=== PATIENT | female | born 1965 | race Caucasian/White ===

== ENCOUNTER 2016-03-27 14:14 | Outpatient (RCR) | payer MEDICARE, MEDICAID ==
--- OUTSIDE RECORDS SUMMARY | 2016-02-16 09:10 | XMS REPORT | Continuity of Care Document ---
Author Author [facility] Organization [facility] Address Unknown Phone Unavailable Care Team Providers Care Hand Sewer Name Role Phone Mario Carver PCP Unavailable Source Comments Some departments are not documenting in the electronic medical record. If you do not see the information that you expected, contact Release of Information in the Health Information Management department at [phone] for further assistance in locating additional records.[facility] Active Allergies and Adverse Reactions Not on File Current Medications Not on file Active Problems Not on file Social History Tobacco Use Types Packs/Day Years Used Date Never Assessed Plan of Care Health Maintenance Due Date Last Done Comments Physical (Comprehensive) 09/15/1974 Exam Pertussis Vaccine 09/15/1978 Tetanus Vaccine 09/15/1984 Cervical Cancer Screening 09/15/1988 Breast Cancer Screening 2007 Influenza Vaccine 12/01/2015 Results from Last 3 Months Not on file
[~2016-03-27 14:14] MED LIST: ABCT PO; ALBU0.632 NEB; ALBU17AE23 IH; ALBU8.5H2 IH; ALBU8.5H4 IH; ALBU8.5HRX IH; AMLO10TA2 PO; AMLO10TA4 PO; AMLO10TA82 PO; AMLO5TAB2 PO; ASP81TEC PO; ASPI-875 PO; ATOR80TA2 PO; ATR20T PO; ATRV10T PO; AZIT-21 PO; Atorvastatin Calcium PO; BUDE6HFA IH; BUDE90AE IH; BUPR150T6 PO; BUTA-234 PO; BUTA1TAB9 PO; CA C1TAB75 PO; CALC-656 PO; CALC667C PO; CEFD300C PO; CEPH500C PO; CLAR-19 PO; CODE118S2 PO; DCS100C PO; DILT300C PO; DOXY-233 PO; ERGO500028 PO; FLT22013 INH; FLUT16SP22; FLUT16SP22 NS; FOLI1TAB40 PO; FURO40TA4 PO; Fluticasone Propionate NS; GABA-486 PO; GBPN300C PO; GBPN600T PO; GLBR5T PO; GLIM4TAB PO; GLMP4T PO; HYDR-2856 PO; HYDR-34 PO; HYDR-3714 PO; HYDR-3816 PO; HYDR-700 PO; HYDR1TAB PO; HYDR25TA4 PO; IBP800T PO; INSA10V1 SC; INSASP10V SQ; INSU100C4 SQ; INSU100I10 SQ; INSU100I14 SQ; INSU100I16 SQ; INSU100V5 SQ; INSU100V8 SC; IPRA3AMP11 INH; IRB150T; IRB150T PO; IRBE300T9 PO; ISM30TCR PO; ISOS30TA3 PO; Insulin Human Lispro SQ; KIDNEY MED PO; LANT1000; LANT500T; LISI10TA PO; LORA10TA7 PO; LOVA40TA2 PO; MAGN400O7 PO; METF-380 PO; METO100T2 PO; MINO2.5T PO; MNTL10T PO; MONT10TA24 PO; MTF500T PO; MTP50T PO; MUPI22OI2 TOP; Multivitamins/Minerals Therap PO; NAPR-243 PO; NEBU1EAC2 MC; NF-TYLARTH PO; NYST30PO9 TOP; ONDA4TAB8 PO; OXYC-201 PO; PNT40TEC PO; POLY17PO23 PO; PRD10T PO; PRD20T PO; PRD50T PO; PRO AIR HFA INH; PRO AIR INH; ROSU20TA PO; ROSU20TA14 PO; RT-ALBUINH IH; RT-SYMBINH IH; SEVE800T7 PO; STEROID INHALER; TRAZ50TA67 PO; [UNRECOGNIZED DRUG - CODE] PO; [UNRECOGNIZED DRUG - CODE] PO; [UNRECOGNIZED DRUG - OTHER]
== END 2016-04-30 08:45 | disposition home or self-care (01) ==
PROVIDERS: ATTEND Nurse Practitioner Community Health
DX: Z89.512 Acquired absence of left leg below knee (principal)

== ENCOUNTER 2016-04-03 20:24 | Emergency (ER) | payer MEDICARE, MEDICAID ==
[~2016-04-03] VITALS: Ht 162.6 cm; Wt 142.4 kg
--- OUTSIDE RECORDS SUMMARY | 2016-04-03 20:29 | XMS REPORT | Continuity of Care Document ---
Author Author [facility] Organization [facility] Address Unknown Phone Unavailable Care Team Providers Care Stretch Machine Operator Name Role Phone Mario Carver PCP Unavailable Source Comments Some departments are not documenting in the electronic medical record. If you do not see the information that you expected, contact Release of Information in the Health Information Management department at [phone] for further assistance in locating additional records.[facility] Active Allergies and Adverse Reactions Not on [...]
[2016-04-03 21:22] LABS: BASOPHILS % (AUTO) 0 % (0-10); EOSINOPHILS # (AUTO) 0.1 10^3/uL (0.0-0.3); EOSINOPHILS % (AUTO) 1 % (0-10); LYMPHOCYTES # (AUTO) 1.1 X 10^3 (1.0-4.0); LYMPHOCYTES % (AUTO) 7 % (12-44); MEAN CORPUSCULAR HEMOGLOBIN 34 PG (25-34); MEAN CORPUSCULAR HGB CONC 32 G/DL (32-36); MEAN CORPUSCULAR VOLUME 106 FL (80-99); MEAN PLATELET VOLUME 12.3 FL (7.4-10.4); MONOCYTES # (AUTO) 0.8 X 10^3 (0.0-1.0); MONOCYTES % (AUTO) 6 % (0-12); NEUTROPHILS # (AUTO) 12.8 X 10^3 (1.8-7.8); NEUTROPHILS % (AUTO) 87 % (42-75); PLATELET COUNT 155 10^3/uL (130-400); RED BLOOD COUNT 3.05 10^6/uL (4.35-5.85); RED CELL DISTRIBUTION WIDTH 15.7 % (10.0-14.5); WHITE BLOOD COUNT 14.8 10^3/uL (4.3-11.0)
--- NOTE | 2016-04-03 21:22 | Diagnostic Imaging Report ---
INDICATION: Right foot pain COMPARISON: None FINDINGS: 3 views of the right foot are obtained. No acute fracture, malalignment or osseous destructive process is seen. Subtle vascular calcifications are noted. There is mild degenerative change of the calcaneocuboid joint. There is some soft tissue swelling which is nonspecific. IMPRESSION: No acute osseous abnormality is seen. There is soft tissue swelling and arteriosclerosis noted. Dictated by: Dictated on workstation # [id number]
[2016-04-03] MEDS ORDERED: RX-NITROGLYCERIN 0.4 MG TAB BTL 25'S SL ONE (21:39)
[2016-04-03] MEDS ORDERED: ASPIRIN 81 MG CHEW (CHILDREN'S ASA) PO ONE (21:45)
[2016-04-03 21:46] LABS: ANISOCYTOSIS SLIGHT; BAND NEUTROPHILS 0 %; BASOPHILS % (MANUAL) 0 %; EOSINOPHILS % (MANUAL) 0 %; LYMPHOCYTES % (MANUAL) 11 %; NEUTROPHILS % (MANUAL) 89 %
[2016-04-03] MEDS: NITROGLYCERIN SUBLINGUAL 0.4 MG TAB (NITROSTAT) SL PRN (21:47)
[2016-04-03 21:49] LABS: ALBUMIN 3.6 G/DL (3.2-4.5); BILIRUBIN,TOTAL 0.4 MG/DL (0.1-1.0); CREATININE SERUM 8.24 MG/DL (0.60-1.30); POTASSIUM 4.7 MMOL/L (3.6-5.0); TOTAL PROTEIN 7.4 G/DL (6.4-8.2)
[2016-04-03 21:50] LABS: hs C REACTIVE PROTEIN 23.13 MG/DL (0.00-0.50)
[2016-04-03 21:57] LABS: ERYTHROCYTE SEDIMENTATION RATE > 140 MM/HR (0-20)
[2016-04-03 21:59] LABS: CREATINE KINASE 20 U/L (29-168); MAGNESIUM 2.1 MG/DL (1.8-2.4)
[2016-04-03 22:06] LABS: TROPONIN I < 0.30 NG/ML (<0.30)
[2016-04-03] MEDS: VANCOMYCIN IV ADD-VANTAGE 1,000 MG in SODIUM CHLORIDE (ADD-VANTAGE) 250 ML IV ONE ×2 (22:14→23:19)
[2016-04-03] MEDS ORDERED: inSUlin (REGULAR) HUMAN 1 UNIT/0.01 ML (CHARGE PER UNIT) IV ONE (22:15)
[2016-04-03] MEDS ORDERED: NITROGLYCERIN 2% OINT 1 GM UNIT DOSE PACKET TOP ONE (22:15)
[2016-04-03] MEDS ORDERED: NS (IVPB) 100 ML ONE (22:19)
[2016-04-03] MEDS ORDERED: inSUlin REGULAR TPN/DRIP ONLY 250 UNITS in NORMAL SALINE 247.5 ML IV SCH (22:30)
[2016-04-03] MEDS ORDERED: PIPERACILLIN SODIUM/TAZOBACTAM 4.5 GM in NORMAL SALINE (BAXTER MINI) 100 ML IV ONE (22:30)
--- NOTE | 2016-04-03 23:04 | ED General ---
General Chief Complaint: Lower Extremity Stated Complaint: FOOT SORE/SWELLING Nursing Triage Note: PT ARRIVAL FOR RIGHT FOOT PAIN AND UNABLE TO BEAR WT. WORSENING OVER 1 WEEK, CAN NOT GET INTO HER DR. 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 Nursing Sepsis Screen: No Definite Risk Source of Information: Patient, Old Records History of Present Illness Time Seen by Provider: 20:40 Initial Comments PT ARRIVES VIA EMS FROM HOME CALLED EMS FOR RIGHT FOOT AND LEG PAIN, REDNESS AND SWELLING ONGOING FOR SEVERAL DAYS, WORSE SINCE YESTERDAY HAS NOT BEEN ABLE TO BEAR WEIGHT ON RIGHT FOOT DUE TO PAIN SINCE YESTERDAY PT HAS CHRONIC DIABETIC LEG AND FOOT ULCERS. STATES THE ONE ON HER RIGHT GREAT TOE CAME UP A FEW DAYS AGO NO DRAINAGE FROM WOUNDS AT THIS TIME NO KNOWN FEVER HAS HAD NAUSEA AND VOMITED X 3 TODAY. EMS GAVE ZOFRAN 4 MG IM AND NAUSEA IS GONE PT HAS ESRD ON DIALYSIS [id number] HAD DIALYSIS YESTERDAY, BUT DR WAS NOT THERE--WILL BE THERE YESTERDAY HAS NOT SOUGHT CARE FOR THIS PROBLEM UNTIL TODAY PCP:RICARDO, APPOINTMENT 04/06/16 Allergies and Home Medications Allergies Coded Allergies: aloe vera (Verified Allergy, Severe, RASH, 11/05/13) flu vaccine [id number](4 yr+) (Verified Allergy, Mild, HIVES, 04/22/12) adhesive (Verified Allergy, Unknown, 05/01/07) Uncoded Allergies: TAPE (Allergy, Mild, 05/16/10) Home Medications 1 EA TABLET #30 1 EA PO DAILY@0700 Prescribed by: FRANCOISE ODOM on 11/20/13 1000 Amlodipine Besylate 10 Mg Tablet #30 10 MG PO DAILY (Reported) Aspirin 81 Mg Tablet.dr 81 MG PO DAILY (Reported) Butalb/Acetaminophen/Caffeine 1 Each Tablet #30 1-2 TAB PO Q6H PRN PRN HEADACHE (Reported) Fluticasone Propionate 16 Gm [place].susp #16 1 SPRAY NA DAILY (Reported) Folic Acid/Vitamin B Comp W-C 1 Each Tablet #30 1 TAB PO DAILY (Reported) Furosemide 40 Mg Tablet #30 1 TAB PO DAILY (Reported) Gabapentin 100 Mg Capsule 100 MG PO TID (Reported) Hydrocodone/Acetaminophen 1 Each Tablet #90 1 TAB PO Q6H PRN PRN PAIN (Reported ) Hydroxyzine HCl 25 Mg Tablet #90 1 TAB PO QID PRN PRN an (Reported) Insulin Glargine,Hum.rec.anlog 100 Unit/1 Ml Insuln.pen #15 30 UNITS SQ HS ( Reported) Insulin Human Lispro 100 U/Ml Vial UNITS SQ SLIDING SCALE/ MEALS (Reported) PER SLIDING SCALE 151-199= 1 UNIT 200-249= 3 UNIT 250- 299= 5 UNIT 300-349= 7 UNIT 350-399= 8 UNIT >400= CALL DR Isosorbide Mononitrate 30 Mg Tab.er.24h #30 1 TAB PO DAILY (Reported) Lanthanum Carbonate 500 Mg Tab.chew #60 Unknown Dose (Reported) Lanthanum Carbonate 1,000 Mg Tab.chew #90 Unknown Dose (Reported) Loratadine 10 Mg Tablet #30 1 TAB PO HS (Reported) Metoprolol Tartrate 100 Mg Tablet 100 MG PO BID (Reported) Montelukast Sodium 10 Mg Tablet 10 MG PO HS (Reported) Mupirocin 22 Gm Oint...g. #22 1 APPLIC TOP BID (Reported) Nystatin 60 Gm Powder #15 1 APPLIC TOP BID (Reported) Rosuvastatin Calcium 20 Mg Tablet #30 1 TAB PO DAILY (Reported) Sevelamer Carbonate 800 Mg Tablet #240 800 MG PO with meals as direct (Reported ) 2 tabs with breakfast and dinner 1 tab with lunch Constitutional: no symptoms reportedNo chills, No diaphoresis, No fever Respiratory: no symptoms reported Cardiovascular: chest pain (C/O CHEST PAIN AN HOUR AFTER SHE ARRIVED IN ER-- STATES IT HAS BEEN GOING ON ALL DAY, BUT DID NOT MENTION THIS TO EMS, TO MYSELF OR NURSING AT ANY TIME, UNTIL AN HOUR HAD PASSED.) edema (CHRONIC/STABLE) palpitationsNo syncope, vascular heart diseas Gastrointestinal: see HPINo abdominal pain, loss of appetite (STATES SHE HAS NOT EATEN ALL DAY) nausea vomiting Genitourinary: see HPI Musculoskeletal: see HPI Skin: see HPI Psychiatric/Neurological: Pre-Existing Deficit (PERIPHERAL NEUROPATHY) Hematologic/Lymphatic: No Symptoms Reported Immunological/Allergic: no symptoms reported Past Biwwyfp-Raiavf-Nwmala Hx Patient Social History Alcohol Use: Denies Use Recreational Drug Use: No Smoking Status: Never a Smoker Former Smoker/When Quit: Apr 22, 1985 2nd Hand Smoke Exposure: Yes Recent Foreign Travel: No Contact w/Someone Who Travel: No Recent Infectious Disease Expo: No Recent Hopitalizations: No Physical Abuse Screen: No Sexual Abuse: No Immunizations Up To Date Tetanus Booster (TDap): Less than 5yrs PED Vaccines UTD: No Date of Pneumonia Vaccine: Sep 02, 2013 Seasonal Allergies Seasonal Allergies: Yes Surgeries HX Surgeries: Yes (DIALYSIS AV FISTULA/GRAFT LEFT UPPER ARM, LEFT BKA) Surgeries: Amputation, Arteriovenous Shunt, Cardiac, Section, Dialysis , Hysterectomy, Orthopedic, Tracheostomy, Vascular Surgery Respiratory Hx Respiratory Disorders: Yes (TRACHEOSTOMY IN PAST--PT STATES DUE TO " DIABETIC COMA", O2 AT 4L/NC) Respiratory Disorders: Asthma, COPD, Emphysema Cardiovascular Hx Cardiac Disorders: Yes Cardiac Disorders: Chronic Edema/Swelling, Coronary Artery Disease, High Cholesterol, Hypertension, Peripheral Vascular Neurological Hx Neurological Disorders: Yes Neurological Disorders: Headaches /Migraines, Neuropathy 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 System Hx 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 Disorders: No Sexually Transmitted Disease: No HIV/AIDS: No Genitourinary Hx Genitourinary Disorders: Yes (DIALYSIS SATURDAY,SATURDAY,SATURDAY) Genitourinary Disorders: Renal Failure, Dialysis Gastrointestinal Hx Gastrointestinal Disorders: Yes Gastrointestinal Disorders: Chronic Constipation Musculoskeletal Hx Musculoskeletal Disorders: Yes (BILATERAL CARPAL TUNNEL SYMPTOMS; LEFT BKA, LEFT STUMP FRACTURE) Musculoskeletal Disorders: Arthritis, Chronic Back Pain, Fractures Endocrine Hx Endocrine Disorders: Yes (DKA IN PAST ) Endocrine Disorders: Diabetes, Insulin dep HEENT HX ENT Disorders: Yes Loss of Vision: Denies Hearing Impairment: Denies, Hard of Hearing Cancer Hx Cancer: No Psychosocial Hx Psychiatric Problems: No Integumentary HX Skin/Integumentary Disorder: Yes (DIABETIC ULCERS) Blood Transfusions Hx Blood Disorders: No Adverse Reaction to a Blood Tr: No Physical Exam Vital Signs Vital Sign - Last 12Hours 04/03/16 20:24 Temp 98.5 Pulse 105 Resp 18 B/P 181/94 Pulse Ox 96 O2 Delivery Nasal Cannula O2 Flow Rate 4 Capillary Refill : Less Than 3 Seconds General Appearance: No Apparent Distress Obese (MORBIDLY) Other (DIRTY, MALODOROUS, UNKEMPT) HEENT: Other (POOR DENTITION, MULTIPLE MISSING TEETH AND REMAINING TEETH WITH EXTENSIVE DECAY) Neck: Full Range of Motion Normal Inspection Non Tender Supple Respiratory: Normal Breath Sounds No Accessory Muscle Use No Respiratory Distress Decreased Breath Sounds (IN BASES) Cardiovascular: Regular Rate, Rhythm No Murmur Gastrointestinal: Non Tender Soft Extremity: Other (LEFT AKA; RIGHT LOWER LEG WITH CELLULITIS AND MULTIPLE SORES /ULCERS OF VARIOUS AGES. NO DRAINAGE FROM ANY WOUNDS. SKIN IS WARM, ERYTHEMATOUS AND INDURATED. 2+ EDEMA TO RIGHT LEG. UNABLE TO PALPATE PULSES AND HAS DECREASED SENSATION TO FOOT, BUT C/O PAIN ANYWHERE SHE IS TOUCHED. 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 Norm as Tested Sensory Deficit (CHRONIC/STABLE) Skin: Normal Color Warm/Dry Other ( ABOVE) Progress/Results/Core Measures Results/Orders Lab Results Laboratory Tests Test 04/03/16 21:16 04/03/16 21:27 04/04/16 00:34 Range/Units Alanine Aminotransferase (ALT/SGPT) 27 0-55 U/L Albumin 3.6 3.2-4.5 G/DL Alkaline Phosphatase 215 H 40-136 U/L Anion Gap 20 H 5-14 MMOL/L Anisocytosis SLIGHT Aspartate Amino Transf (AST/SGOT) 26 5-34 U/L BUN/Creatinine Ratio 5 Band Neutrophils 0 % Basophils # (Auto) 0.0 0.0-0.1 10^3/uL Basophils % (Manual) 0 % Basophils (%) (Auto) 0 0-10 % Blood Urea Nitrogen 43 H 7-18 MG/DL C-Reactive Protein High Sensitivity 23.13 H 0.00-0.50 MG/DL Calcium Level 9.0 8.5-10.1 MG/DL Carbon Dioxide Level 24 21-32 MMOL/L Chloride Level 87 L 98-107 MMOL/L Creatinine 8.24 H 0.60-1.30 MG/DL Eosinophils # (Auto) 0.1 0.0-0.3 10^3/uL Eosinophils % (Manual) 0 % Eosinophils (%) (Auto) 1 0-10 % Erythrocyte Sedimentation Rate > 140 H 0-20 MM/HR Estimat Glomerular Filtration Rate 5 Glucose Level 540 *H 70-105 MG/DL Hematocrit 32 L 35-52 % Hemoglobin 10.5 L 11.5-16.0 G/DL Lymphocytes # (Auto) 1.1 1.0-4.0 X 10^3 Lymphocytes % (Manual) 11 % Lymphocytes (%) (Auto) 7 L 12-44 % Macrocytosis SLIGHT Mean Corpuscular Hemoglobin 34 25-34 PG Mean Corpuscular Hemoglobin Concent 32 32-36 G/DL Mean Corpuscular Volume 106 H 80-99 FL Mean Platelet Volume 12.3 H 7.4-10.4 FL Monocytes # (Auto) 0.8 0.0-1.0 X 10^3 Monocytes % (Manual) 0 % Monocytes (%) (Auto) 6 0-12 % Neutrophils # (Auto) 12.8 H 1.8-7.8 X 10^3 Neutrophils % (Manual) 89 % Neutrophils (%) (Auto) 87 H 42-75 % Nucleated Red Blood Cells 1 Platelet Count 155 130-400 10^3/uL Potassium Level 4.7 3.6-5.0 MMOL/L Red Blood Count 3.05 L 4.35-5.85 10^6/uL Red Cell Distribution Width 15.7 H 10.0-14.5 % Sodium Level 131 L 135-145 MMOL/L Total Bilirubin 0.4 0.1-1.0 MG/DL Total Protein 7.4 6.4-8.2 G/DL White Blood Count 14.8 H 4.3-11.0 10^3/uL Creatine Kinase MB 0.8 <6.6 NG/ML Lactic Acid Level 1.4 0.5-2.0 MMOL/L Magnesium Level 2.1 1.8-2.4 MG/DL Total Creatine Kinase 20 L 29-168 U/L Troponin I < 0.30 <0.30 NG/ML Glucometer 328 H 70-110 MG/DL My Orders Orders-LORI PENALOZA DO Saline Lock/Iv-Start (04/03/16 20:41) Cbc With Automated Diff (04/03/16 20:41) Comprehensive Metabolic Panel (04/03/16 20:41) Hs C Reactive Protein (04/03/16 20:41) Lactic Acid Analyzer (04/03/16 20:41) Blood Culture (04/03/16 20:41) Erythrocyte Sedimentation Rate (04/03/16 20:41) Foot, Right, 3 View (04/03/16 20:41) Manual Differential (04/03/16 21:16) Ekg Tracing (04/03/16 21:35) O2 (04/03/16 21:35) Monitor-Rhythm Ecg Trace Only (04/03/16 21:35) Creatine Kinase (04/03/16 21:35) Creatine Kinase Mb (04/03/16 21:35) Magnesium (04/03/16 21:35) Troponin I (04/03/16 21:35) Aspirin Chewable Tablet (Baby Aspirin Ch (04/03/16 21:45) Nitroglycerin Sublingual (Nitrostat Sub (04/03/16 21:45) Rx-Nitroglycerin Sl Tabs (Rx-Nitrostat S (04/03/16 21:39) Vancomycin Iv Add-[place] (Vancomycin Iv (04/03/16 22:15) Insulin (Regular) Human (Humulin R (Per (04/03/16 22:15) Nitroglycerin Ointment (Nitrobid Ointme (04/03/16 22:15) Piperacillin Sodium/Tazobactam (Zosyn Vi (04/03/16 22:30) Insulin Regular Tpn/Drip Only (Humulin R (04/03/16 22:30) Ns (Ivpb) (Sodium Chloride 0.9% Ivpb Bag (04/03/16 22:19) Accucheck Stat ONCE (04/04/16 00:02) Medications Given in ED Current Medications Medications Dose Ordered Sig/Lindy Route Start Time Stop Time Status Last Admin Dose Admin Aspirin 324 mg ONCE ONCE PO 04/03/16 21:45 04/03/16 21:46 DC 04/03/16 21:46 324 MG Nitroglycerin 0.4 mg 0.4 mg STK-MED ONCE SL 04/03/16 21:39 04/03/16 21:47 DC 04/03/16 21:46 0.4 MG Piperacillin Sod/ Tazobactam Sod 4.5 gm/Sodium Chloride 100 ml @ 200 mls/hr ONCE ONCE IV 04/03/16 22:30 04/03/16 22:59 DC 04/03/16 22:32 200 MLS/HR Sodium Chloride 100 ml STK-MED ONCE .ROUTE 04/03/16 22:19 04/03/16 22:26 DC 04/03/16 22:34 Vancomycin HCl 1000 mg/Sodium Chloride 250 ml @ 250 mls/hr ONCE ONCE IV 04/03/16 22:15 04/03/16 23:14 DC 04/03/16 23:19 250 MLS/HR Vital Signs/I&O Vital Sign - Last 12Hours 04/03/16 04/03/16 04/03/16 20:24 20:24 21:46 Temp 98.5 98.5 Pulse 105 Resp 18 B/P 181/94 Pulse Ox 96 95 O2 Delivery Nasal Cannula O2 Flow Rate 4 4 Blood Pressure Mean: 123 Progress Note : Progress Note 2134--PT NOW C/O CHEST PAIN RADIATING DOWN LEFT ARM--ONGOING ALL DAY--RATES 9/ 10. SHE STATES THIS IS WHY SHE CAME, BUT ALSO FOR HER FOOT. SHE DID NOT MENTION THIS TO EMS, MYSELF OR NURSING STAFF AT ANY TIME UNTIL NOW. NO SHORTNESS OF BREATH PT GIVEN ASA 324 MG AND NITRO SL X 2 WITH COMPLETE RESOLUTION OF PAIN AND BP DOWN TO 140'S / 90'S OFFERED NITROPASTE, PT REFUSED--STATES IT MAKES HER BREAK OUT EKG AND ADDITIONAL LAB ORDERED NO DETERIORATION IN PT'S CONDITION DURING ER STAY ECG Initial ECG Impression Time: 21:40 Initial ECG Rate: 97 Initial ECG Rhythm: Normal Sinus Initial ECG Impression: 1st Degree AV Block Initial ECG Comparisson: Unchanged Diagnostic Imaging Comments XRAYS RIGHT FOOT--SOFT TISSUE SWELLING, OTHERWISE NO ACUTE PROCESS, PER RADIOLOGIST REPORT @ 2125 Reviewed: Reviewed by Me Departure Communication Progress Notes 2211-CALLED [facility] CALL 2213--SPOKE WITH HOSPITALIST, DR. ADAMS. ACCEPTS PT FOR TRANSFER/ADMIT. ORDERS NOTED FOR INSULIN DRIP, VANCOMYCIN AND ZOSYN. PT TO GO TO TCU Impression Impression: Primary Impression: CELLULITIS OF RIGHT FOOT AND LOWER LEG Additional Impressions: Chest pain Uncontrolled diabetes mellitus Uncontrolled hypertension ESRD on dialysis DIABETIC ULCERS OF RIGHT FOOT AND LEG Disposition: 02 XFER SHT-TRM HOSP Condition: Improved Departure-Patient Inst. Referrals: MCKENNA HEBERT (PCP) Primary Care Physician [facility] (Family) Primary Care Physician LORI PENALOZA DO Apr 03, 2016 23:04 XRAYS RIGHT FOOT--SOFT TISSUE SWELLING, OTHERWISE NO ACUTE PROCESS, PER RADIOLOGIST REPORT @ 2125 Reviewed: Reviewed by Me Departure Communication Progress Notes 2211-CALLED [facility] CALL 2213--SPOKE WITH HOSPITALISTDR. ADAMS. ACCEPTS PT FOR TRANSFER/ADMIT. ORDERS NOTED FOR INSULIN DRIP, VANCOMYCIN AND ZOSYN. PT TO GO TO TCU Impression Impression: Primary Impression: CELLULITIS OF RIGHT FOOT AND LOWER LEG Additional Impressions: Chest pain Uncontrolled diabetes mellitus Uncontrolled hypertension ESRD on dialysis DIABETIC ULCERS OF RIGHT FOOT AND LEG Disposition: 02 XFER SHT-TRM HOSP Condition: Improved Departure-Patient Inst. Referrals: MCKENNA HEBERT (PCP) Primary Care Physician [facility] (Family) Primary Care Physician LORI PENALOZA DO Apr 03, 2016 23:04
[2016-04-04 01:00] VITALS: BP 134/71
== END 2016-04-04 01:00 | disposition short-term general hospital (02) ==
LOC: EDUNIT# 20:24 → ER 20:25
DX: L03.115 Cellulitis of right lower limb (principal); E11.621 Type 2 diabetes mellitus with foot ulcer; I12.0 Hypertensive chronic kidney disease with stage 5 chronic kidney disease or end stage renal disease; N18.6 End stage renal disease; Z99.2 Dependence on renal dialysis; J44.9 Chronic obstructive pulmonary disease, unspecified; I25.10 Atherosclerotic heart disease of native coronary artery without angina pectoris; Z79.82 Long term (current) use of aspirin; Z79.4 Long term (current) use of insulin; Z79.899 Other long term (current) drug therapy
CPT/HCPCS: 36415; 73630; 80053; 82550; 82553; 82962; 83605; 83735; 84484; 85007; 85027; 85652; 86141; 87040; 93005; 93041; 96365; 96367; 96375

== ENCOUNTER → 2016-04-23 | Outpatient (CLI) | payer MEDICARE, MEDICAID ==
[~2016-04-23] MED LIST changes: +AMOX1TAB11 PO; +CLOP75TA69 PO; +DOXY100C2 PO; +DOXY100C42 PO; +GABA-488 PO; +HYDR-3820 PO; +INSU100I23 SQ; +NAPR375T3 PO; +ONDA8TAB9 PO; +VIT1TABL59 PO
[2016-04-23 17:50] LABS: BASOPHILS % (AUTO) 0 % (0-10); EOSINOPHILS # (AUTO) 0.7 10^3/uL (0.0-0.3); EOSINOPHILS % (AUTO) 7 % (0-10); LYMPHOCYTES % (AUTO) 9 % (12-44); MEAN CORPUSCULAR HEMOGLOBIN 32 PG (25-34); MEAN CORPUSCULAR HGB CONC 30 G/DL (32-36); MEAN CORPUSCULAR VOLUME 108 FL (80-99); MEAN PLATELET VOLUME 13.5 FL (7.4-10.4); MONOCYTES # (AUTO) 0.8 X 10^3 (0.0-1.0); MONOCYTES % (AUTO) 7 % (0-12); NEUTROPHILS # (AUTO) 8.5 X 10^3 (1.8-7.8); NEUTROPHILS % (AUTO) 77 % (42-75); PLATELET COUNT 149 10^3/uL (130-400); RED BLOOD COUNT 3.06 10^6/uL (4.35-5.85); WHITE BLOOD COUNT 11.1 10^3/uL (4.3-11.0)
[2016-04-23 18:11] LABS: ERYTHROCYTE SEDIMENTATION RATE 49 MM/HR (0-20)
[2016-04-23 18:13] LABS: ALBUMIN 3.2 G/DL (3.2-4.5); BILIRUBIN,TOTAL 0.3 MG/DL (0.1-1.0); CALCIUM 8.4 MG/DL (8.5-10.1); CREATININE SERUM 4.52 MG/DL (0.60-1.30); POTASSIUM 4.8 MMOL/L (3.6-5.0); TOTAL PROTEIN 7.6 G/DL (6.4-8.2)
== END ==
LOC: LABNPT 17:40
PROVIDERS: ATTEND Internal Medicine Infectious Disease
DX: L02.611 Cutaneous abscess of right foot (principal)
CPT/HCPCS: 80053; 85025; 85652

== ENCOUNTER → 2016-06-25 | Outpatient (CLI) | payer MEDICARE, MEDICAID ==
--- NOTE | 2016-06-25 16:46 | Diagnostic Imaging Report ---
INDICATION: Pressure ulcer on the bottom of the foot in the first metatarsal region. COMPARISON: Three views of the right foot are compared to an exam from April 03, 2016. FINDINGS: The exam demonstrates no evidence of osteomyelitis. Vascular calcifications are present. Soft tissue swelling is present adjacent to the first metatarsal. Hallux valgus configuration of the great toe is present with mild degenerative changes. These appear stable. IMPRESSION: There is some soft tissue swelling with no evidence of osteomyelitis. Degenerative changes and arteriosclerosis are present. Dictated by: Dictated on workstation # [id number]
[2016-06-25 16:59] LABS: BASOPHILS % (AUTO) 0 % (0-10); EOSINOPHILS # (AUTO) 0.3 10^3/uL (0.0-0.3); EOSINOPHILS % (AUTO) 3 % (0-10); LYMPHOCYTES # (AUTO) 1.7 X 10^3 (1.0-4.0); LYMPHOCYTES % (AUTO) 21 % (12-44); MEAN CORPUSCULAR HEMOGLOBIN 34 PG (25-34); MEAN CORPUSCULAR HGB CONC 31 G/DL (32-36); MEAN CORPUSCULAR VOLUME 108 FL (80-99); MEAN PLATELET VOLUME 12.6 FL (7.4-10.4); MONOCYTES # (AUTO) 0.4 X 10^3 (0.0-1.0); MONOCYTES % (AUTO) 5 % (0-12); NEUTROPHILS # (AUTO) 5.9 X 10^3 (1.8-7.8); NEUTROPHILS % (AUTO) 71 % (42-75); PLATELET COUNT 117 10^3/uL (130-400); RED BLOOD COUNT 3.75 10^6/uL (4.35-5.85); RED CELL DISTRIBUTION WIDTH 17.8 % (10.0-14.5); WHITE BLOOD COUNT 8.3 10^3/uL (4.3-11.0)
[2016-06-25 17:11] LABS: BILIRUBIN,TOTAL 0.4 MG/DL (0.1-1.0); CALCIUM 8.2 MG/DL (8.5-10.1); CREATININE SERUM 5.18 MG/DL (0.60-1.30); POTASSIUM 5.3 MMOL/L (3.6-5.0); TOTAL PROTEIN 7.5 G/DL (6.4-8.2)
[2016-06-25 17:19] LABS: ERYTHROCYTE SEDIMENTATION RATE 38 MM/HR (0-20)
== END ==
LOC: RAD 15:43
PROVIDERS: ATTEND Surgery
DX: I70.234 Atherosclerosis of native arteries of right leg with ulceration of heel and midfoot (principal); E11.621 Type 2 diabetes mellitus with foot ulcer; L97.413 Non-pressure chronic ulcer of right heel and midfoot with necrosis of muscle
CPT/HCPCS: 36415; 73630; 80053; 83036; 85025; 85652

== ENCOUNTER 2016-07-24 07:16 | Day surgery (SDC) | payer MEDICARE, MEDICAID ==
[~2016-07-24] VITALS: Ht 162.6 cm; Wt 142.6 kg
[~2016-07-24 07:16] MED LIST changes: -AMOX1TAB11 PO; -CLOP75TA69 PO; -DOXY100C2 PO; -DOXY100C42 PO; -GABA-488 PO; -HYDR-3820 PO; -INSU100I23 SQ; -NAPR375T3 PO; -ONDA8TAB9 PO; -VIT1TABL59 PO
[2016-07-24] MEDS ORDERED: LIDOCAINE 1% INJ 20 ML (XYLOCAINE) VIAL ONE (07:31)
[2016-07-24] MEDS ORDERED: HEParin (CATH LAB) 2,000 ML IV ONE (07:31)
[2016-07-24] MEDS ORDERED: NS IV 1000 ML 1,000 ML ONE (07:31)
[2016-07-24 07:46] VITALS: BP 106/47
[2016-07-24] MEDS ORDERED: NS IV 1000 ML 1,000 ML IV SCH ×2 (08:15→12:14)
[2016-07-24 09:49] LABS: MEAN PLATELET VOLUME 13.3 FL (7.4-10.4); RED BLOOD COUNT 3.76 10^6/uL (4.35-5.85); RED CELL DISTRIBUTION WIDTH 14.9 % (10.0-14.5); WHITE BLOOD COUNT 8.4 10^3/uL (4.3-11.0)
[2016-07-24 09:57] LABS: PROTHROMBIN TIME PATIENT 13.1 SEC (12.2-14.7)
[2016-07-24 10:06] LABS: ALBUMIN 3.6 G/DL (3.2-4.5); BILIRUBIN,TOTAL 0.3 MG/DL (0.1-1.0); CREATININE SERUM 6.85 MG/DL (0.60-1.30); POTASSIUM 4.6 MMOL/L (3.6-5.0); TOTAL PROTEIN 7.3 G/DL (6.4-8.2)
[2016-07-24] MEDS ORDERED: MIDAZOLAM 5 MG/5 ML (VERSED) VIAL ONE ×2 (10:07→11:08)
[2016-07-24] MEDS ORDERED: fentaNYL INJECTION 100 MCG/2 ML AMP ONE (10:07)
[2016-07-24] MEDS ORDERED: diphenhydrAMINE 50 MG/ML INJ (BENADRYL) ONE (10:07)
[2016-07-24] MEDS ORDERED: NAPR375T3 PO (10:15)
[2016-07-24] MEDS ORDERED: DOXY100C2 PO (10:15)
[2016-07-24] MEDS ORDERED: SEVE800T7 PO (10:15)
[2016-07-24] MEDS ORDERED: GABA-488 PO (10:15)
[2016-07-24] MEDS ORDERED: AMOX1TAB11 PO (10:15)
[2016-07-24] MEDS ORDERED: HYDR-3820 PO (10:15)
[2016-07-24] MEDS ORDERED: VIT1TABL59 PO (10:15)
[2016-07-24] MEDS ORDERED: INSU100I23 SQ (10:15)
[2016-07-24] MEDS ORDERED: ONDA8TAB9 PO (10:15)
[2016-07-24] MEDS ORDERED: INSU100I14 SQ (10:15)
[2016-07-24] MEDS ORDERED: DOXY100C42 PO (10:42)
[2016-07-24] MEDS ORDERED: HEParin 1000 UNIT/ML (10ML VIAL) FOR BOLUS ONE (11:02)
[2016-07-24] MEDS ORDERED: NITROGLYCERIN DRIP 25 MG/D5W 250 ML IV ONE (11:03)
--- NOTE | 2016-07-24 11:51 | Cardiac Procedure Note-CS/ASA ---
Pre-Procedure Note Pre-Op Procedure Note H&P Reviewed The H&P was reviewed, patient examined and no changes noted. Date H&P Reviewed: Jul 24, 2016 Time H&P Reviewed: 10:15 Conscious Sedation Pre-Proced Time Reviewed: 10:15 ASA Class: 3 Airway Mallampati Classification: (seminole appropriate class) I. II. III, IV Lungs Heart ASA score ASA 1: a normal healthy patient ASA 2: a patient with a mild systemic disease (mid diabetes, controlled hypertension, obesity ASA 3: a patient with a severe systemic disease that limits activity (angina , COPD, prior Myocardial infarction) ASA 4: a patient with an incapacitating disease that is a constant threat to life (CHF, renal failure) ASA 5: a moribund patient not expected to survive 24 hrs. (ruptured aneurysm) ASA 6: a declared brain patient whose organs are being harvested. For emergent operations, add the letter E after the classification Grade 3 Sedation Plan: Analgesia, Amnesia, Plan communicated to team members, Discussed options with patient/fam, Discussed risks with patient/fam Note The patient is an appropriate candidate to undergo the planned procedure, sedation, and anesthesia. The patient immediately re-assessed prior to indication. СВЕТЛАНА HOWE MD FACP FAC CCDS Jul 24, 2016 11:51
[2016-07-24 12:10] VITALS: BP 99/66
[2016-07-24] MEDS ORDERED: ASPIRIN 81 MG CHEW (CHILDREN'S ASA) PO ONE (12:15)
[2016-07-24] MEDS ORDERED: PATIENT MAY USE OWN MEDS, ALL PO SCH (12:15)
[2016-07-24] MEDS ORDERED: CLOPIDOGREL 300 MG (PLAVIX) TABLET PO ONE (12:15)
[2016-07-24] MEDS ORDERED: CLOP75TA69 PO (12:17)
--- NOTE | 2016-07-24 12:19 | Discharge Inst-Post CATH ---
Discharge Inst-CATH Post Cardiac Cath D/C Inst Follow Up/Plan F/u with Dr Hsieh in 1-2 weeks Report for renal hemodialysis tomorrow morning CARDIAC CATH DISCHARGE INSTRUCTIONS *Hold Metformin for 48 hours post heart cath. ACTIVITY * Go Home directly and rest. * Limit activity of the leg (or wrist if it was used) for 7 days including aerobics, swimming, jogging, bicycling, etc. * Restrict stair-climbing for 7 days if possible, if not, climb up with your non -cath leg, then bring together on the same step. * Avoid lifting, pushing, pulling or excessive movement of the affected extremity for 7 days. * Customary sexual activity may be resumed after 2 days-use caution not to use a position that strains or causes pain to the affected extremity. * No driving for 24 hours. * NO SMOKING. * Avoid straining for bowel movements for 7 days. * Gentle walking on level ground is allowed. * Returning to work will depend on the type of procedure and the results. Your doctor will discuss this with you. CALL YOUR DOCTOR FOR ANY OF THE FOLLOWING: *If bleeding from the puncture site occurs- Apply gentle pressure to site with clean cloth and call your doctor or EMS. * If a knot or lump forms under the skin, increases in size, or causes pain. * If bruising appears to be worsening or moving further down your leg instead of disappearing. * Temperature above 101 F. CARE OF YOUR GROIN INCISION; * Bruising or purple discoloration of the skin near the puncture site is common. * You may shower only, no bathtub bathing for 5 days. Be careful to avoid slipping as your leg may feel stiff. * If a closure device was used on your femoral artery, please see the attached guide regarding care of the device and your leg. * REMOVE the dressing from your groin the next day after your procedure in the shower. CARE OF YOUR WRIST INCISION; * Bruising or purple discoloration of the skin near the puncture site is common. * You may shower. * DO NOT submerge wrist. * Remove dressing in 24 hours. СВЕТЛАНА HSIEH MD [facility] CCDS Jul 24, 2016 12:19
--- NOTE | 2016-07-24 12:20 | Discharge Inst-Cardiology ---
Discharge Inst-Cardiac Discharge Medications New Medications: Clopidogrel Bisulfate (Plavix) 75 Mg Tablet 75 MG PO DAILY for 30 Days, #30 TAB 3 Refills Continued Medications: Amlodipine Besylate (Amlodipine Besylate) 10 Mg Tablet 10 MG PO HS, TAB Amoxicillin/Potassium Clav (Amox Tr-K Clv 500-125 mg Tab) 1 Each Tablet 1 TAB PO Q8H for 14 Days, TAB 14 DAY SUPPLY FILLED 07-06-16 Aspirin ([place] Aspirin) 81 Mg Tablet.dr 81 MG PO DAILY, TAB Doxycycline Monohydrate (Doxycycline Monohydrate) 100 Mg Capsule 100 MG PO BID, #14 CAP 14 DAY SUPPLY FILLED --17 Fluticasone Propionate (Fluticasone Propionate) 16 Gm [place].susp 1 SPRAY NA DAILY PRN for ALLERGIES, EA Furosemide (Furosemide) 40 Mg Tablet 40 MG PO DAILY, TAB Gabapentin (Gabapentin) 300 Mg Capsule 300 MG PO TID, CAP Hydrocodone/Acetaminophen (Hydrocodon-Acetaminophn 10-325) 1 Each Tablet 1 TAB PO Q6H PRN for PAIN-MODERATE, TAB Hydroxyzine HCl (Hydroxyzine HCl) 25 Mg Tablet 25 MG PO TID PRN for an, TAB Insulin Glargine,Hum.rec.anlog (Lantus Solostar) 100 Unit/1 Ml Insuln.pen 30 UNITS SQ HS, EA Insulin Lispro (Humalog Kwikpen) 100 Unit/1 Ml Insuln.pen SQ HS for SLIDING SCALE, EA 100-200 = 12-16 UNITS ABOVE 300 = 20 UNITS ABOVE 400 = CALL Isosorbide Mononitrate (Isosorbide Mononitrate ER) 30 Mg Tab.er.24h 30 MG PO HS, TAB Loratadine (Loratadine) 10 Mg Tablet 10 MG PO HS, TAB Metoprolol Tartrate (Metoprolol Tartrate) 100 Mg Tablet 100 MG PO BID, TAB Montelukast Sodium (Montelukast Sodium) 10 Mg Tablet 10 MG PO HS, TAB Naproxen (Naproxen) 375 Mg Tablet 375 MG PO BID PRN for PAIN-MILD, TAB Ondansetron (Zofran Odt) 8 Mg Tab.rapdis 8 MG PO Q8H PRN for NAUSEA/VOMITING-1ST LINE, TAB Rosuvastatin Calcium (Crestor) 20 Mg Tablet 20 MG PO HS, TAB Sevelamer Carbonate (Renvela) 800 Mg Tablet 3200 MG PO BID WITH MEALS, TAB TAKES 4 (800MG) TABLETS WITH BREAKFAST AND SUPPER AND TAKES 2 (800MG) TABLETS WITH SNACK Sevelamer Carbonate (Renvela) 800 Mg Tablet 1600 MG PO DAILY WITH SNACK, TAB TAKES 2 (800MG) TABLETS Vit B Cmplx 3/FA/Vit C/Biotin (Mayte-Tadeo Rx Tablet) 1 Each Tablet 1 TAB PO DAILY, TAB СВЕТЛАНА HOWE MD FACP FAC CCDS Jul 24, 2016 12:20
--- NOTE | 2016-07-24 12:59 | OPERATIVE REPORT ---
DATE OF SERVICE: 07/24/2016 PERIPHERAL ANGIOGRAPHY AND INTERVENTION REPORT HISTORY OF PRESENT ILLNESS: The patient is a 50-year-old lady with nonhealing ischemic ulcers of the right foot. A noninvasive workup has showed considerable distal peripheral arterial disease. Her wound physician, Dr. Toussaint, had recommended peripheral intervention because of the nonhealing wounds of the right foot. Informed consent with obtained and the procedure was carried out today. PROCEDURE: She was brought to the cardiac catheterization laboratory in a fasting state. The left groin was prepared and draped in the usual sterile fashion. Modified Seldinger technique was used to advance a 5-Sudanese sheath into the right femoral artery. We used a 5-Sudanese pigtail catheter to carry out abdominal aortic angiography. We then used a crossover catheter to engage the contralateral common iliac artery (right iliac artery). We advanced a Storq wire into the right superficial femoral artery and exchanged the crossover catheter for a 5-Sudanese straight catheter and then performed selective angiography of the right superficial femoral artery with a runoff down to the level of the foot. PERCUTANEOUS INTERVENTION TO THE RIGHT ANTERIOR TIBIAL AND DORSALIS PEDIS ARTERIAL SYSTEM: Following completion of the diagnostic procedure, we carried out percutaneous intervention to the right anterior tibial/dorsalis pedis arterial system. We exchanged the 5-Sudanese sheath over an exchange length wire, the tip of which was placed in the contralateral popliteal (right popliteal) artery. Over this wire, we advanced a 90 mm 6-Sudanese sheath. The Storq wire was then removed. We advanced a Command wire into the right anterior tibial artery and were able to advance the tip of the wire down to the right dorsalis pedis. We then carried out a balloon angioplasty with an Franklin 2.5 x 80 mm balloon with balloon inflations of up to 14 atmospheres for 2 minutes. Subsequent angiography revealed essentially no residual stenosis at the previous sites of multiple 95% stenoses in this arterial system. The flow through the vessel was normal. At this point, angioplasty equipment was removed and we exchanged the long sheath over a long wire for a short 6-Sudanese sheath. We then carried out angiography of the left femoral artery through the sheath and Mynx was used to achieve hemostasis. She tolerated the procedure well. ABDOMINAL AORTIC ANGIOGRAPHY: Did not indicate any abdominal aortic aneurysm or dissection. The aortoiliac bifurcation is intact and without significant disease. The common, external and internal iliac arteries are patent without significant disease on both sides. SELECTIVE ANGIOGRAPHY OF THE RIGHT SUPERFICIAL FEMORAL ARTERY: Began with selective angiography of the right common femoral artery first and then the catheter was advanced into the right superficial femoral artery over a wire and selective angiography of the right superficial femoral artery was performed. This did not show any significant femoral arterial disease or popliteal artery disease. However, in the leg, there is only a single vessel runoff. The posterior tibial and the peroneal arteries are completely occluded in their proximal to mid portions. They are faintly collateralized by the anterior tibial arterial system, which itself has multiple 95% stenoses in its distal portion. To these 95% stenoses, successful balloon angioplasty was carried out, as described above. Following this balloon angioplasty, there is no significant residual stenosis in this arterial system and the collateral flow to the occluded vessels has improved considerably. CONCLUSIONS: Peripheral arterial disease leading to critical limb ischemia. 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 Successful balloon angioplasty was carried out today to the R anterior tibia/ dorsalis pedis arterial system with improvement of multiple 95% stenoses to no significant residual stenosis and normal antegrade flow. DISCUSSION AND RECOMMENDATIONS: Risk factor modification has been reviewed. Continue outpatient followup as advised. Job ID: [id number] DocumentID: [id number] Dictated Date: 07/24/2016 12:10:04 Auto Brake Technician Date: 07/24/2016 12:58:15 Dictated By: СВЕТЛАНА HOWE MD, MA, FACP, FACC, MTDD
== END 2016-07-24 17:15 | disposition home or self-care (01) ==
LOC: CATH 07:16 → ICU 12:10 → ENPENDDIS 16:30 → CATH 17:15
PROVIDERS: ATTEND Nurse Practitioner Family
DX: L97.519 Non-pressure chronic ulcer of other part of right foot with unspecified severity (principal); I70.203 Unspecified atherosclerosis of native arteries of extremities, bilateral legs; I70.92 Chronic total occlusion of artery of the extremities; R06.00 Dyspnea, unspecified; E66.01 Morbid (severe) obesity due to excess calories; E11.22 Type 2 diabetes mellitus with diabetic chronic kidney disease; N18.5 Chronic kidney disease, stage 5; Z99.2 Dependence on renal dialysis; I25.10 Atherosclerotic heart disease of native coronary artery without angina pectoris; I12.0 Hypertensive chronic kidney disease with stage 5 chronic kidney disease or end stage renal disease; Z79.899 Other long term (current) drug therapy; Z68.43 Body mass index [BMI] 50.0-59.9, adult; Z89.512 Acquired absence of left leg below knee
CPT/HCPCS: 36247; 36415; 37228; 75625; 75710; 75774; 80053; 80061; 85027; 85610; 85730; 87081

== ENCOUNTER 2016-09-13 13:06 | Outpatient (RCR) | payer MEDICARE, MEDICAID ==
[~2016-09-13 13:06] MED LIST changes: +AMOX1TAB11 PO; +CLOP75TA69 PO; +DOXY100C2 PO; +DOXY100C42 PO; +GABA-488 PO; +HYDR-3820 PO; +INSU100I23 SQ; +NAPR375T3 PO; +ONDA8TAB9 PO; +VIT1TABL59 PO
== END 2016-09-17 | disposition home or self-care (01) ==
LOC: WOUNDCARE 13:06
PROVIDERS: ATTEND Nurse Practitioner
DX: E11.621 Type 2 diabetes mellitus with foot ulcer (principal); L97.513 Non-pressure chronic ulcer of other part of right foot with necrosis of muscle; L97.512 Non-pressure chronic ulcer of other part of right foot with fat layer exposed; I70.234 Atherosclerosis of native arteries of right leg with ulceration of heel and midfoot; I89.0 Lymphedema, not elsewhere classified; N18.6 End stage renal disease; I50.20 Unspecified systolic (congestive) heart failure; E66.01 Morbid (severe) obesity due to excess calories
CPT/HCPCS: 11042; 11043; 15271; 15275; 87070; 87075; 87077; 87186; 87205

== ENCOUNTER 2016-09-26 12:45 | Outpatient (RCR) | payer MEDICARE, MEDICAID ==
[2016-09-25 14:33] VITALS: BP 119/57
[2016-09-25 16:47] VITALS: BP 119/57
[~2016-09-26] VITALS: Ht 162.6 cm; Wt 141.1 kg
[2016-09-26 12:45] VITALS: BP 111/65
[~2016-09-26 12:45] MED LIST changes: +VANCOMYCIN 1500 MG/NS 500 ML IVPB IV NR
[2016-09-26] MEDS ORDERED: VANCOMYCIN 1 GM/NS 250 ML IVPB IV SCH ×2 (13:47)
== END 2016-12-24 | disposition home or self-care (01) ==
LOC: SDC 12:45 → EDSTATUS 12:57
PROVIDERS: ATTEND Nurse Practitioner
DX: L03.115 Cellulitis of right lower limb (principal); L97.413 Non-pressure chronic ulcer of right heel and midfoot with necrosis of muscle; Z45.2 Encounter for adjustment and management of vascular access device
CPT/HCPCS: 36569; 76937; 96365; 96366

== ENCOUNTER 2016-10-18 13:18 | Outpatient (RCR) | payer MEDICARE, MEDICAID ==
[~2016-10-18 13:18] MED LIST changes: -VANCOMYCIN 1500 MG/NS 500 ML IVPB IV NR
== END 2016-10-29 16:00 | disposition home or self-care (01) ==
LOC: WOUNDCARE 13:18
PROVIDERS: ATTEND Nurse Practitioner
DX: E11.621 Type 2 diabetes mellitus with foot ulcer (principal); L97.513 Non-pressure chronic ulcer of other part of right foot with necrosis of muscle; L97.512 Non-pressure chronic ulcer of other part of right foot with fat layer exposed; I70.234 Atherosclerosis of native arteries of right leg with ulceration of heel and midfoot; I89.0 Lymphedema, not elsewhere classified; N18.6 End stage renal disease; I50.20 Unspecified systolic (congestive) heart failure; E66.01 Morbid (severe) obesity due to excess calories
CPT/HCPCS: 11042; 15271; 15275; 97597

== ENCOUNTER → 2016-11-01 | Outpatient (CLI) | payer MEDICARE, MEDICAID | LOC: WOUNDCARE 13:27 | PROVIDERS: ATTEND Nurse Practitioner | DX: E11.621 Type 2 diabetes mellitus with foot ulcer (principal); L97.413 Non-pressure chronic ulcer of right heel and midfoot with necrosis of muscle; L97.512 Non-pressure chronic ulcer of other part of right foot with fat layer exposed; L97.211 Non-pressure chronic ulcer of right calf limited to breakdown of skin; I70.234 Atherosclerosis of native arteries of right leg with ulceration of heel and midfoot; I89.0 Lymphedema, not elsewhere classified; L03.115 Cellulitis of right lower limb; N18.6 End stage renal disease; I50.20 Unspecified systolic (congestive) heart failure; E66.01 Morbid (severe) obesity due to excess calories; Z68.43 Body mass index [BMI] 50.0-59.9, adult | CPT/HCPCS: 15275 ==

== ENCOUNTER → 2016-11-15 | Outpatient (CLI) | payer MEDICARE, MEDICAID | LOC: WOUNDCARE 11-08 12:50 | PROVIDERS: ATTEND Nurse Practitioner | DX: E11.621 Type 2 diabetes mellitus with foot ulcer (principal); L97.413 Non-pressure chronic ulcer of right heel and midfoot with necrosis of muscle; L97.512 Non-pressure chronic ulcer of other part of right foot with fat layer exposed; L97.211 Non-pressure chronic ulcer of right calf limited to breakdown of skin; I70.231 Atherosclerosis of native arteries of right leg with ulceration of thigh; I89.0 Lymphedema, not elsewhere classified | CPT/HCPCS: 15275 ==

== ENCOUNTER → 2016-11-22 | Outpatient (CLI) | payer MEDICARE, MEDICAID | LOC: WOUNDCARE 12:50 | PROVIDERS: ATTEND Nurse Practitioner | DX: E11.621 Type 2 diabetes mellitus with foot ulcer (principal); L97.413 Non-pressure chronic ulcer of right heel and midfoot with necrosis of muscle; L97.512 Non-pressure chronic ulcer of other part of right foot with fat layer exposed; L97.211 Non-pressure chronic ulcer of right calf limited to breakdown of skin; I70.234 Atherosclerosis of native arteries of right leg with ulceration of heel and midfoot; I89.0 Lymphedema, not elsewhere classified | CPT/HCPCS: 15275 ==

== ENCOUNTER → 2016-11-29 | Outpatient (CLI) | payer MEDICARE, MEDICAID | LOC: WOUNDCARE 13:16 | PROVIDERS: ATTEND Nurse Practitioner | DX: E11.621 Type 2 diabetes mellitus with foot ulcer (principal); L97.512 Non-pressure chronic ulcer of other part of right foot with fat layer exposed; I70.234 Atherosclerosis of native arteries of right leg with ulceration of heel and midfoot; I89.0 Lymphedema, not elsewhere classified; N18.6 End stage renal disease | CPT/HCPCS: 15275; 87070; 87075; 87205 ==

== ENCOUNTER → 2016-12-06 | Outpatient (CLI) | payer MEDICARE, MEDICAID | LOC: WOUNDCARE 13:04 | PROVIDERS: ATTEND Nurse Practitioner | DX: E11.621 Type 2 diabetes mellitus with foot ulcer (principal); L97.512 Non-pressure chronic ulcer of other part of right foot with fat layer exposed; I70.234 Atherosclerosis of native arteries of right leg with ulceration of heel and midfoot; I89.0 Lymphedema, not elsewhere classified | CPT/HCPCS: 11042 ==

== ENCOUNTER → 2016-12-13 | Outpatient (CLI) | payer MEDICARE, MEDICAID | LOC: WOUNDCARE 13:08 | PROVIDERS: ATTEND Nurse Practitioner | DX: E11.621 Type 2 diabetes mellitus with foot ulcer (principal); L97.512 Non-pressure chronic ulcer of other part of right foot with fat layer exposed; I70.234 Atherosclerosis of native arteries of right leg with ulceration of heel and midfoot; I89.0 Lymphedema, not elsewhere classified | CPT/HCPCS: 15275 ==

== ENCOUNTER → 2016-12-20 | Outpatient (CLI) | payer MEDICARE, MEDICAID ==
[~2016-12-20] MED LIST changes: +NAPR-1084 PO; -NAPR375T3 PO
== END ==
LOC: WOUNDCARE 12:22
PROVIDERS: ATTEND Nurse Practitioner
DX: E11.621 Type 2 diabetes mellitus with foot ulcer (principal); L97.512 Non-pressure chronic ulcer of other part of right foot with fat layer exposed; I70.234 Atherosclerosis of native arteries of right leg with ulceration of heel and midfoot; I89.0 Lymphedema, not elsewhere classified; N18.6 End stage renal disease
CPT/HCPCS: 15275

== ENCOUNTER → 2016-12-27 | Outpatient (CLI) | payer MEDICARE, MEDICAID ==
[~2016-12-27] MED LIST changes: -NAPR-1084 PO; +NAPR375T3 PO
== END ==
LOC: WOUNDCARE 13:14
PROVIDERS: ATTEND Nurse Practitioner
DX: E11.621 Type 2 diabetes mellitus with foot ulcer (principal); L97.512 Non-pressure chronic ulcer of other part of right foot with fat layer exposed; I70.234 Atherosclerosis of native arteries of right leg with ulceration of heel and midfoot; I89.0 Lymphedema, not elsewhere classified; E11.22 Type 2 diabetes mellitus with diabetic chronic kidney disease; N18.6 End stage renal disease
CPT/HCPCS: 11042

== ENCOUNTER → 2017-01-10 | Outpatient (CLI) | payer MEDICARE, MEDICAID | LOC: WOUNDCARE 12:56 | PROVIDERS: ATTEND Nurse Practitioner | DX: E11.621 Type 2 diabetes mellitus with foot ulcer (principal); L97.512 Non-pressure chronic ulcer of other part of right foot with fat layer exposed; I70.234 Atherosclerosis of native arteries of right leg with ulceration of heel and midfoot; I89.0 Lymphedema, not elsewhere classified; N18.6 End stage renal disease | CPT/HCPCS: 15275 ==

== ENCOUNTER → 2017-01-15 | Outpatient (CLI) | payer MEDICARE, MEDICAID | LOC: CARD 12:22 | PROVIDERS: ATTEND Nurse Practitioner Family | DX: I50.32 Chronic diastolic (congestive) heart failure (principal); I25.10 Atherosclerotic heart disease of native coronary artery without angina pectoris; N18.5 Chronic kidney disease, stage 5; I73.89 Other specified peripheral vascular diseases | CPT/HCPCS: 93306 ==

== ENCOUNTER → 2017-01-17 | Outpatient (CLI) | payer MEDICARE, MEDICAID | LOC: WOUNDCARE 12:42 | PROVIDERS: ATTEND Nurse Practitioner | DX: E11.621 Type 2 diabetes mellitus with foot ulcer (principal); L97.512 Non-pressure chronic ulcer of other part of right foot with fat layer exposed; I70.234 Atherosclerosis of native arteries of right leg with ulceration of heel and midfoot; I89.0 Lymphedema, not elsewhere classified | CPT/HCPCS: 11042 ==

== ENCOUNTER → 2017-01-24 | Outpatient (CLI) | payer MEDICARE, MEDICAID | LOC: WOUNDCARE 12:49 | PROVIDERS: ATTEND Nurse Practitioner | DX: E11.621 Type 2 diabetes mellitus with foot ulcer (principal); L97.512 Non-pressure chronic ulcer of other part of right foot with fat layer exposed; S90.931A Unspecified superficial injury of right great toe, initial encounter; I70.234 Atherosclerosis of native arteries of right leg with ulceration of heel and midfoot; I89.0 Lymphedema, not elsewhere classified; N18.6 End stage renal disease; I50.20 Unspecified systolic (congestive) heart failure; E66.01 Morbid (severe) obesity due to excess calories; Z68.43 Body mass index [BMI] 50.0-59.9, adult | CPT/HCPCS: 11042; 97597 ==

== ENCOUNTER → 2017-01-31 | Outpatient (CLI) | payer MEDICARE, MEDICAID | LOC: WOUNDCARE 13:25 | PROVIDERS: ATTEND Nurse Practitioner | DX: E11.621 Type 2 diabetes mellitus with foot ulcer (principal); L97.512 Non-pressure chronic ulcer of other part of right foot with fat layer exposed; S90.931A Unspecified superficial injury of right great toe, initial encounter; I70.234 Atherosclerosis of native arteries of right leg with ulceration of heel and midfoot; I89.0 Lymphedema, not elsewhere classified; N18.6 End stage renal disease; I50.20 Unspecified systolic (congestive) heart failure; E66.01 Morbid (severe) obesity due to excess calories; Z68.43 Body mass index [BMI] 50.0-59.9, adult | CPT/HCPCS: 11042; 87070; 87075; 87205; 97597 ==

== ENCOUNTER → 2017-02-07 | Outpatient (CLI) | payer MEDICARE, MEDICAID ==
[~2017-02-07] MED LIST changes: +NAPR-1084 PO; -NAPR375T3 PO
== END ==
LOC: WOUNDCARE 13:15
PROVIDERS: ATTEND Nurse Practitioner
DX: L97.512 Non-pressure chronic ulcer of other part of right foot with fat layer exposed (principal); S90.931A Unspecified superficial injury of right great toe, initial encounter; E11.621 Type 2 diabetes mellitus with foot ulcer; I70.234 Atherosclerosis of native arteries of right leg with ulceration of heel and midfoot; I89.0 Lymphedema, not elsewhere classified; N18.6 End stage renal disease; I50.20 Unspecified systolic (congestive) heart failure; E66.01 Morbid (severe) obesity due to excess calories; I87.332 Chronic venous hypertension (idiopathic) with ulcer and inflammation of left lower extremity
CPT/HCPCS: 11042; 97597

== ENCOUNTER → 2017-02-14 | Outpatient (CLI) | payer MEDICARE, MEDICAID | LOC: WOUNDCARE 13:13 | PROVIDERS: ATTEND Nurse Practitioner | DX: E11.621 Type 2 diabetes mellitus with foot ulcer (principal); L97.512 Non-pressure chronic ulcer of other part of right foot with fat layer exposed; I70.234 Atherosclerosis of native arteries of right leg with ulceration of heel and midfoot; I89.0 Lymphedema, not elsewhere classified; N18.6 End stage renal disease; I50.20 Unspecified systolic (congestive) heart failure; E66.01 Morbid (severe) obesity due to excess calories; I87.332 Chronic venous hypertension (idiopathic) with ulcer and inflammation of left lower extremity | CPT/HCPCS: 11042 ==

== ENCOUNTER → 2017-02-28 | Outpatient (CLI) | payer MEDICARE, MEDICAID | LOC: WOUNDCARE 13:19 | PROVIDERS: ATTEND Nurse Practitioner | DX: L97.512 Non-pressure chronic ulcer of other part of right foot with fat layer exposed (principal); E11.621 Type 2 diabetes mellitus with foot ulcer; I70.234 Atherosclerosis of native arteries of right leg with ulceration of heel and midfoot; I89.0 Lymphedema, not elsewhere classified; N18.6 End stage renal disease; I50.20 Unspecified systolic (congestive) heart failure; E66.01 Morbid (severe) obesity due to excess calories; I87.332 Chronic venous hypertension (idiopathic) with ulcer and inflammation of left lower extremity; S90.931A Unspecified superficial injury of right great toe, initial encounter | CPT/HCPCS: 11042 ==

== ENCOUNTER → 2017-03-07 | Outpatient (CLI) | payer MEDICARE, MEDICAID | LOC: WOUNDCARE 12:46 | PROVIDERS: ATTEND Nurse Practitioner | DX: E11.621 Type 2 diabetes mellitus with foot ulcer (principal); I70.234 Atherosclerosis of native arteries of right leg with ulceration of heel and midfoot; L97.512 Non-pressure chronic ulcer of other part of right foot with fat layer exposed; I89.0 Lymphedema, not elsewhere classified | CPT/HCPCS: 11042 ==

== ENCOUNTER → 2017-03-14 | Outpatient (CLI) | payer MEDICARE, MEDICAID | LOC: WOUNDCARE 12:44 | PROVIDERS: ATTEND Nurse Practitioner | DX: L97.511 Non-pressure chronic ulcer of other part of right foot limited to breakdown of skin (principal); E11.621 Type 2 diabetes mellitus with foot ulcer; I70.234 Atherosclerosis of native arteries of right leg with ulceration of heel and midfoot; I89.0 Lymphedema, not elsewhere classified | CPT/HCPCS: 97597 ==

== ENCOUNTER → 2017-03-21 | Outpatient (CLI) | payer MEDICARE, MEDICAID | LOC: WOUNDCARE 12:31 | PROVIDERS: ATTEND Nurse Practitioner | DX: E11.621 Type 2 diabetes mellitus with foot ulcer (principal); L97.511 Non-pressure chronic ulcer of other part of right foot limited to breakdown of skin; I70.234 Atherosclerosis of native arteries of right leg with ulceration of heel and midfoot; I89.0 Lymphedema, not elsewhere classified; N18.6 End stage renal disease; I50.20 Unspecified systolic (congestive) heart failure; E66.01 Morbid (severe) obesity due to excess calories; S90.931A Unspecified superficial injury of right great toe, initial encounter; I87.332 Chronic venous hypertension (idiopathic) with ulcer and inflammation of left lower extremity | CPT/HCPCS: 99212 ==

== ENCOUNTER 2017-12-10 13:05 | Outpatient (RCR) | payer MEDICARE, MEDICAID ==
[~2017-12-10 13:05] MED LIST changes: -AMLO10TA2 PO; +AMLO10TA6 PO; -HYDR-3816 PO; -OXYC-201 PO; +OXYC1TAB16 PO
== END 2017-12-27 16:01 | disposition home or self-care (01) ==
PROVIDERS: ATTEND Nurse Practitioner Community Health
DX: Z89.512 Acquired absence of left leg below knee (principal)

== ENCOUNTER 2017-12-18 19:34 | Emergency (ER) | payer MEDICARE, MEDICAID ==
[~2017-12-18] VITALS: Ht 162.6 cm; Wt 137.0 kg
[2017-12-18] MEDS ORDERED: RT-ALBUTEROL SULF 2.5 MG/3 ML PRE-MIX VIAL ONE (19:41)
--- OUTSIDE RECORDS SUMMARY | 2017-12-18 19:41 | XMS REPORT | Clinical Summary ---
Author Author [facility] Organization [facility] Address Unknown Phone Unavailable Care Team Providers Care Cattle Shipper Name Role Phone Mario Carver MD PCP Unavailable Source Comments Some departments are not documenting in the electronic medical record. If you do not see the information that you expected, contact Release of Information in the Health Information Management department at [phone] for further assistance in locating additional records.[facility] Allergies Not on File Current Medications Not on file Active Problems Not on file Social History Tobacco Use Types Packs/Day Years Used Date Never Assessed Sex Assigned at Date Recorded Not on file Last Filed Vital Signs Not on file Plan of Treatment Health Maintenance Due Date Last Done Comments PHYSICAL (COMPREHENSIVE) 09/15/1974 EXAM PERTUSSIS VACCINE 09/15/1978 HIV SCREENING 09/15/1982 TETANUS VACCINE 09/15/1984 CERVICAL CANCER SCREENING 09/15/1997 BREAST CANCER SCREENING 2007 COLORECTAL CANCER 09/15/2017 SCREENING SHINGLES RECOMBINANT 09/15/2017 VACCINE (1 of 2) INFLUENZA VACCINE 12/30/2017 Results Not on filefrom Last 3 Months
--- OUTSIDE RECORDS SUMMARY | 2017-12-18 19:43 | XMS REPORT ---
Author Author MCKENNA HEBERT Organization [facility] Address [address] [place] [address] Care Team Providers Care Telesales Representative Name Role Phone MCKENNA HEBERT Unavailable PROBLEMS Type Condition ICD9-CM Code TLY36-MM Code Onset Dates Condition Status SNOMED Code Problem Amput below knee, unilat S88.119A Active 05145629 Problem Chronic congestive heart failure, unspecified congestive heart failure type I50.9 Active 29059228 Problem Intra-dialytic hypotension I95.3 Active 937016108 Problem Cellulitis of right lower extremity L03.115 Active 380936861 Problem Diabetes type 2, controlled E11.9 Active 64059532 Problem Renal failure N19 Active 56000663 Problem Neuropathy G62.9 Active 145652241 Problem Primary insomnia F51.01 Active 7480723 Problem 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 Active 7498585 Problem Chronic congestive heart failure, unspecified heart failure type I50.9 Active 98152524 Problem Seasonal allergic rhinitis due to other allergic trigger J30.89 Active 115747560 Problem Other chronic pain G89.29 Active 57105447 Problem Angina pectoris I20.9 Active 167994060 ALLERGIES No Information ENCOUNTERS Encounter Location Date Diagnosis [facility] [address] [address] Nov, [facility] [id number] [place] [address]80- 2465 Oct, Diabetes type 2, controlled E11.9 ; Primary insomnia F51.01 and Bilateral headaches R51 [facility] [id number] [place] [address] 98997- 8261 Oct, [facility] [address], [place] [address] 98[address] Sep, [facility] [address] [id number] Sep, Dental examination Z01.20 and Dental caries K02.9 [facility] [address], [place] [address] 2358 Sep, [facility] [address], [place] [address] 3676 Sep, [facility] [id number] [place] [address] 88361- 2810 Sep, Other chronic pain G89.29 and Pain in right knee M25.561 [facility] [address] [address] 7351 Sep, [facility] [id number] [place] [address] 30896- 1620 Aug, [facility] [id number] [place] [address] 95442- 8435 Aug, 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 [facility] [address], [place] [address]- 0442 15 Aug, 2017 [facility] [id number] [place] [address] 36454- 2181 11 Aug, 2017 Diabetes type 2, controlled E11.9 and Acute pain of right knee M25.561 [facility] [address], [place] [address] 1160 Aug, [facility] [address] [address] 9113 July, [facility] [id number] [address]- 5826 16 Jun, 2017 [facility] [address], [place] [address]- 2268 13 Jun, 2017 [facility] [address] [address]- 1489 10 Jun, 2017 Diabetes type 2, controlled E11.9 [facility] [address], [place] [address]- 0423 Jun, [facility] [id number] [place] [address] 75194- 3306 May, [facility] [id number] [address]- 1070 May, [facility] [id number] [place] [address] 52621- 2906 May, [facility] [id number] [place] [address] 64847- 7721 May, Chronic congestive heart failure, unspecified congestive heart failure type I50.9 [facility] [id number] [place] [address] 44450- 2001 May, Diabetes type 2, controlled E11.9 ; BMI 50.0-59.9, adult Z68.43 ; Chronic congestive heart failure, unspecified heart failure type I50.9 ; Angina pectoris I20.9 ; Seasonal allergic rhinitis due to other allergic trigger J30.89 and Renal failure N19 [facility] [address] [address] May, [facility] [address], [place] [address]- 7510 May, [facility] [address] [address]- 8440 May, [facility] [address] [address]- 6275 May, [facility] [address], [place] [address]- 4939 May, [facility] [address], [place] [address] 1976 Apr, BMI 50.0-59.9, adult Z68.43 [facility] [address] [place] [address] 33852- 0093 Apr, BMI 50.0-59.9, adult Z68.43 ; Post-procedural fever R50.82 and Bronchitis J40 [facility] [address] [address]- 5044 Apr, Chronic congestive heart failure, unspecified congestive heart failure type I50.9 [facility] [id number] [place] [address] 56605- 3119 Jan, [facility] [address] 58711- 9530 Jan, Diabetes type 2, controlled E11.9 [facility] [address] 71780- 3431 Jan, Neuropathy G62.9 [facility] [address] 79575- 5486 Jan, [facility] [address] 32255- 4305 Jan, [facility] [id number] [place] [address] 76974- 1650 Jan, [facility] [id number] [place] [address] 27748- 2480 Jan, [facility] [id number] [place] [address] 50954- 0127 Jan, [facility] [id number] [place] [address] 62076- 8778 Dec, [facility] [id number] [place] [address] 55763- 0228 Dec, [facility] [id number] [place] [address] 72287- 0085 Dec, Diabetes type 2, controlled E11.9 [facility] [id number] [place] [address] 40437- 4501 Dec, [facility] [id number] [place] [address] [place] [address]- 0646 Dec, [facility] [address] [facility] [id number] [address]- 3875 Dec, Chronic congestive heart failure, unspecified congestive heart failure type I50.9 [facility] [id number] [address]- 7140 Dec, [facility] [id number], [place] [address]- 0637 Dec, [facility] [address] [facility] [id number], [place] [address]- 2805 Nov, Chronic congestive heart failure, unspecified congestive heart failure type I50.9 [facility] [address], [place] [address]- 1754 Nov, Chronic congestive heart failure, unspecified congestive heart failure type I50.9 [facility] [address], [place] [address]- 2123 Nov, [facility] [address], [place] [address]- 4892 Oct, [facility] [address], [place] [address]- 2239 Oct, [facility] [address], [place] [address]- 5534 Oct, Chronic congestive heart failure, unspecified congestive heart failure type I50.9 [facility] [address], [place] [address]- 9852 Oct, [facility] [address], [place] [address]- 0011 Oct, Pneumonia of both lungs due to infectious organism, unspecified part of lung J18.9 [facility] [id number] [address]- 1334 Oct, [facility] [address], [place] [address]- 3616 Oct, Diabetes type 2, controlled E11.9 [facility] [id number] [address]- 6206 Oct, Diabetes type 2, controlled E11.9 [facility] [id number], [place] [address] 2546 Sep, [facility] [id number] [place] [address] 53051 2546 Sep, Neuropathy G62.9 [facility] [id number] [place] [address] 63649 2541 Aug, Intra-dialytic hypotension I95.3 [facility] [id number] [place] [address] 01103- 9886 July, [facility] [id number] [place] [address] 72864- 8946 July, [facility] [id number] [place] [address] 23775- 0966 July, [facility] [id number] [place] [address] 79861- 3926 July, Amput below knee, unilat S88.119A [facility] [address], [place] [address]- 4736 May, [facility] [address], [place] [address] 2546 May, Neuropathy G62.9 [facility] [address], [place] [address] 2546 May, [facility] [id number], [place] [address] 2546 May, [facility] [address], [place] [address] 2546 May, [facility] [address], [place] [address]- 5036 May, [facility] [address] [address]- 3408 May, Neuropathy G62.9 [facility] [address] [place] [address], [place] [address]- 4541 Apr, [facility] [id number] [place] [address], [place] [address]- 7189 Apr, [facility] [id number] [place] [address], [place] [address]- 3612 Apr, Diabetes type 2, controlled E11.9 and Renal failure N19 [facility] [id number] [place] [address], [place] [address]0131 Apr, [facility] [id number] [place] [address], [place] [address]- 7854 Apr, [facility] [id number] [place] [address], [place] [address]- 0008 Mar, [facility] [id number] [place] [address], [place] [address]- 5275 Mar, [facility] [id number] [place] [address], [place] [address]- 8514 Mar, [facility] [address] [place] [address]- 8904 Mar, [facility] [id number] [place] [address], [place] [address]- 4407 Mar, [facility] [id number] [place] [address] 28054- 9783 Jan, Localized edema R60.0 [facility] [id number] [place] [address], [place] [address]- 9336 Jan, [facility] [id number] [place] [address]- 3218 Jan, [facility] [id number] [place] [address] 62555- 0925 Jan, [facility] [address], [place] [address]- 9856 Jan, [facility] [id number] [place] [address] 17583- 3167 Jan, [facility] [id number] [place] [address] 70642- 1921 Jan, [facility] [id number] [place] [address] 21140- 2371 Dec, Diabetes type 2, controlled E11.9 and Chronic nonintractable headache, unspecified headache type R51 [facility] [id number] [place] [address] 32092- 8123 Dec, [facility] [id number] [place] [address] 80066- 8691 Dec, [facility] [id number] [place] [address] 11953- 5031 Nov, [facility] [id number] [place] [address] 17350- 5394 Nov, [facility] [id number] [place] [address] 19275- 7198 Oct, [facility] [address], [place] [address]- 6456 Oct, Migraine without status migrainosus, not intractable, unspecified migraine type G43.909 [facility] [address], [place] [address]- 7545 Oct, [facility] [id number] [place] [address] 22984- 6684 Sep, Amput below knee, unilat S88.119A and Neuropathy G62.9 [facility] [address], [place] [address]- 6935 Sep, [facility] [id number] [place] [address]- 2539 Sep, [facility] [address] [facility] [id number] [place] 8400 Sep, [facility] [address] [facility] [id number] [place] [address]- 1712 Aug, [facility] [address] [facility] [id number] [place] [address]- 3330 Aug, [facility] [address] [facility] [id number] [place] [address]- 3817 Aug, Diabetes type 2, controlled E11.9 [facility] [address] [facility] [id number] [place] [address]- 6856 Aug, [facility] [address] [facility] [id number] [place] [address]- 3941 Jun, Diabetes type 2, controlled E11.9 and Neuropathy G62.9 [facility] [address] [facility] [id number] [place] [address]- 7007 Jun, [facility] [address] [facility] [id number] [place] [address]- 8110 Jun, [facility] [address] [facility] [id number] [place] [address]- 1210 Jun, [facility] [address] [facility] [id number] [place] [address]- 7273 Jun, [facility] [address] [facility] [id number] [place] [address]- 9385 May, [facility] [address] [facility] [id number] [place] [address]- 9759 May, Diabetes type 2, controlled E11.9 [facility] [address] [facility] [id number] [place]- 2130 May, [facility] [address] [facility] [id number] [place]- 5706 May, [facility] [address], [place] [address]- 5122 May, [facility] [address] [address]- 5484 May, [facility] [address] [place] [address]- 8636 May, [facility] [address] [place] [address]- 1134 May, [facility] [address] [place] [address]- 6014 May, [facility] [address] [address]- 0649 May, COPD (chronic obstructive pulmonary disease) J44.9 [facility] [address], [place] [address]- 0411 May, [facility] [address], [place] [address]- 6692 May, [facility] [address], [place] [address]- 7115 May, [facility] [address] [address]- 0914 May, [facility] [address], [place] [address]- 9601 May, [facility] [address], [place] [address]- 3443 May, Renal failure N19 and Pneumonia, organism unspecified, unspecified laterality, unspecified part of lung J18.9 [facility] [address], [place] [address]- 5635 Apr, [facility] [address], [place] [address]- 0633 Apr, [facility] [id number] [address]- 6847 Apr, [facility] [address] [facility] [id number] [place] [address]- 2763 Apr, Diabetes mellitus 250.00 [facility] [address] [id number] [place] [address]- 6450 14 Apr, 2015 [facility] [id number] [place] [address], [place] [address]- 9823 Apr, [facility] [address] [id number] [place] [address]- 3847 Apr, [facility] [address] [id number] [place] [address], [place] [address]- 1637 Apr, [facility] [id number] [address]- 8234 Mar, [facility] [address] [facility] [id number] [place] [address]- 8615 Mar, [facility] [address] [id number] [place] [address]- 9145 Mar, [facility] [address] [facility] [id number] [place] [address]- 8674 16 Mar, 2015 Renal failure N19 [facility] [address] [facility] [id number] [place] [address]- 0096 14 Mar, 2015 [facility] [address] [facility] [id number] [place] [address]- 2246 Mar, [facility] [address] [id number] [place] [address]- 9733 Mar, [facility] [address] [facility] [id number] [place] [address]- 8030 24 Jan, 2015 [facility] [address] [facility] [id number] [place]- 0351 18 Jan, 2015 [facility] [address] [facility] [id number], [place] [address]- 7645 Jan, [facility] [place] [facility] [address] [facility] [id number] [place] [address]- 9551 Jan, [facility] [place] [facility] [address] [facility] [id number] [place] [address]- 9057 Dec, [facility] [place] [facility] [address] [facility] [id number] [place] [address]- 7210 Dec, [facility] [place] [facility] [address] [facility] [id number] [place] [address], [place] [address]- 2332 Dec, [facility] [place] [facility] [address] [facility] [id number] [place] [address], [place] [address]- 4587 Nov, [facility] [place] [facility] [address] [facility] [id number] [place] [address], [place] [address]- 0131 Nov, [facility] [place] [facility] [id number] [place] [address], [place] [address]- 5821 Nov, [facility] [place] [facility] [address] [place] [address]- 7928 Oct, [facility] [place] [facility] [address] [place] [address]- 8002 Oct, [facility] [place] [facility] [address] [place] [address]- 9797 Oct, Renal failure 586 and Obesity 278.00 [facility] [place] [facility] [id number] [address]- 8530 Oct, [facility] [place] [facility] [address] [facility] [id number], [place] [address]- 7928 Oct, [facility] [place] [facility] [id number] [address]- 1400 Oct, [facility] [place] [facility] [address] [facility] [id number] [place] [address]- 0676 Sep, [facility] [place] [facility] [address], [place] [address]- 1980 Sep, [facility] [id number] [address]- 9617 Sep, Diabetes mellitus 250.00 and Congestive heart failure, unspecified 428.0 [facility] [address] [id number] [place] [address]- 9723 Aug, [facility] [address] [facility] [id number] [place] [address]- 7349 Aug, [facility] [address] [facility] [id number] [place] [address]- 0237 Aug, [facility] [address] [place] [address]- 0708 July, [facility] [address] [place] [address]- 6786 July, [facility] [address] [place] [address]- 0465 July, Heart murmur, systolic 785.2 [facility] [address] [place] [address]- 4117 July, [facility] [address] [place] [address]- 9265 July, [facility] [id number] [address]- 5250 Jun, [facility] [id number] [address]- 3403 Jun, [facility] [id number] [address]- 8313 May, [facility] [id number] [address]- 0219 May, [facility] [id number] [address]- 3943 May, [facility] [id number] [address]- 8528 18 May, 2014 [facility] [place] [facility] [address] [id number] [place] [address]- 0413 16 May, 2014 [facility] [place] [facility] [address] [facility] [id number] [place] [address]- 5030 16 May, 2014 [facility] [place] [facility] [address] [facility] [id number] [place] [address]- 4508 10 May, 2014 [facility] [place] [facility] [address] [facility] [id number] [place] [address] 10 May, 2014 [facility] [place] [facility] [address] [facility] [id number] [place] [address] May, [facility] [place] [facility] [address] [facility] [id number] [place] [address] May, [facility] [place] [facility] [address] [facility] [id number] [place] [address] May, 2014 [facility] [place] [facility] [address] [facility] [id number] [place] [address] May, 2014 [facility] [place] [facility] [address] [facility] [id number] [place] [address] May, 2014 [facility] [place] [facility] [address] [facility] [id number] [place] [address] May, 2014 [facility] [place] [facility] [address] [facility] [id number] [place] [address] 18 May, 2014 [facility] [place] [facility] [address] [facility] [id number] [place] [address]- [address] May, 2014 [facility] [place] [facility] [address] [facility] [id number] [place] [address]- [address] May, 2014 [facility] [place] [facility] [address] [facility] [id number] [place] [address] 18 May, 2014 [facility] [place] [facility] [id number] [place] [address] 18 May, 2014 [facility] [place] [facility] [address] [id number] [place] [address] 18 May, 2014 [facility] [place] [facility] [address] [id number] [place] [address] May, 2014 [facility] [place] [facility] [address] [id number] [place] [address] May, 2014 [facility] [place] [facility] [address] [id number] [place] [address]- [address] May, 2014 [facility] [place] [facility] [address] [id number] [place] [address]- [address] May, 2014 [facility] [place] [facility] [address] [id number] [place] [address] May, 2014 [facility] [place] [facility] [address] [id number] [place] [address] May, [facility] [place] [facility] [address] [id number] [place] [address] Apr, [facility] [place] [facility] [address] [id number] [place] [address]- 2017 Apr, [facility] [place] [facility] [address] [id number], [place] [address] Apr, [facility] [place] [facility] [address] [id number], [place] [address] Apr, [facility] [place] [facility] [address] [id number], [place] [address] Apr, [facility] [place] [facility] [address] [id number], [place] [address] Apr, [facility] [place] [facility] [address] [id number], [place] [address] Apr, [facility] [place] [facility] [address] [id number], [place] [address] Apr, [facility] [place] [facility] [address] [id number], [place] [address] Mar, [facility] [place] [facility] [address] [id number] [place] [address] Mar, [facility] [place] [facility] [address] [id number] [place] [address] Mar, [facility] [place] [facility] [address] [id number] [place] [address] Mar, [facility] [place] [facility] [address] [id number] [place] [address] Mar, [facility] [facility] [address] [id number] [place] [address] 8990 Mar, [facility] [place] [facility] [address] [id number] [place] [address] 0861 Mar, [facility] [place] [facility] [address] [id number] [place] [address]- 4768 Mar, [facility] [place] [facility] [address] [id number] [place] [address] 8857 Mar, [facility] [place] [facility] [address] [id number] [place] [address]- 6463 Mar, [facility] [place] [facility] [address] [id number] [place] [address]- 4717 Mar, [facility] [place] [facility] [address] [id number] [place] [address]- 2479 Mar, [facility] [place] [facility] [address] [id number] [place] [address]- 6466 Mar, [facility] [place] [facility] [address] [id number] [place] [address]- 2679 11 Mar, 2014 [facility] [place] [facility] [address] [id number] [place] [address]- 8234 10 Mar, 2014 [facility] [place] [facility] [address] [id number] [place] [address]- 7302 10 Mar, 2014 [facility] [place] [facility] [address] [id number] [place] [address]- 3055 Mar, [facility] [place] [facility] [address] [id number] [place] [address]- 7207 Mar, [facility] [place] [facility] [address] [id number] [place] [address]- 8716 Mar, [facility] [place] [facility] [address] [id number] [place] [address]- 0665 Mar, [facility] [place] [facility] [address] [id number] [place] [address]- 1987 Mar, [facility] [place] [facility] [address] [id number] [place] [address]- 0853 Mar, [facility] [place] [facility] [address] [id number] [place] [address]- 0610 Jan, [facility] [place] [facility] [address] [id number] [place] [address]- 2948 Jan, [facility] [place] [facility] [address] [id number] [place] [address]- 9272 Jan, [facility] [place] [facility] [address] [id number] [place] [address]- 4475 Jan, [facility] [place] [facility] [address] [id number] [place] [address]- 8991 Jan, [facility] [place] [facility] [address] [id number] [place] [address]- 5387 Jan, [facility] [place] [facility] [address] [id number] [place] [address]- 9225 Jan, [facility] [place] [facility] [address] [id number] [place] [address]- 5746 Jan, [facility] [place] [facility] [address] [id number] [place] [address]- 8649 Jan, [facility] [facility] [address] [id number] [place] [address]- 2894 Jan, [facility] [place] [facility] [address] [id number] [place] [address]- 4666 Jan, [facility] [address] [id number] [place] [address]- 4730 Jan, [facility] [facility] [address] [id number] [place] [address]- 0813 Jan, [facility] [place] [facility] [address] [id number] [place] [address]- 6642 Jan, [facility] [place] [facility] [address] [id number] [place] [address]- 9613 Jan, [facility] [place] [address] [id number] [place] [address]- 9174 Jan, [facility] [place] [facility] [address] [id number] [place] [address]- 1473 Jan, [facility] [facility] [address] [id number] [place] [address]- 0354 Jan, [facility] [address] [id number] [place] [address]- 6592 Jan, [facility] [address] [id number] [place] [address]- 9196 Jan, [facility] [address] [id number], [place] [address]- 8690 Dec, [facility] [address] [id number], [place] [address]- 2648 Dec, [facility] [address] [id number] [place] [address]- 2461 Dec, [facility] [address] [id number], [place] [address]- 1499 Dec, [facility] [address] [id number], [place] [address]- 8072 Dec, [facility] [address] [id number] [place] [address]- 5651 14 Dec, 2013 [facility] [address] [id number] [place] [address]- 8259 14 Dec, 2013 [facility] [address] [id number] [place] [address]- 0931 10 Dec, 2013 [facility] [address] [id number] [place] [address]- 6641 10 Dec, 2013 [facility] [address] [id number] [place] [address]- 8256 08 Dec, 2013 [facility] [address] [id number] [place] [address]- 0248 Dec, [facility] [address] [id number] [place] [address]- 9225 Dec, [facility] [address] [id number] [place] [address]- 8530 Dec, [facility] [address] [id number] [place] [address]- 1839 Dec, [facility] [address] [id number] [place] [address]- 7086 Dec, [facility] [address] [id number] [place] [address]- 0443 22 Nov, 2013 [facility] [address] [id number] [place] [address]- 4730 22 Nov, 2013 [facility] [address] [id number] [place] [address]- 4473 19 Nov, 2013 [facility] [address] [id number] [place] [address]- 0809 19 Nov, 2013 [facility] [address] [id number] [place] [address]- 5095 13 Nov, 2013 [facility] [address] [id number] [place] [address]- 4115 13 Nov, 2013 [facility] [address] [id number] [place] [address]- 1312 10 Nov, 2013 [facility] [address] [id number] [place] [address]- 8902 Nov, 2013 [facility] [address] [id number] [place] [address]- 0312 08 Nov, 2013 [facility] [address] [id number] [place] [address]- 4862 Nov, 2013 [facility] [address] [id number] [place] [address]- 1126 Nov, 2013 [facility] [address] [id number] [place] [address]- 6762 Nov, 2013 [facility] [address] [id number] [place] [address]- 3275 Nov, 2013 [facility] [address] [id number] [place] [address]- 5753 Oct, [facility] [address] [id number] [place] [address]- 9942 Oct, [facility] [address] [id number] [place] [address]- 2662 Oct, [facility] [address] [id number] [place] [address]- 3445 Oct, [facility] [address] [id number] [place] [address]- 2134 Oct, [facility] [address] [id number] [place] [address]- 6166 Sep, [facility] [address] [id number] [place] [address]- 5788 Sep, [facility] [address] [id number] [place] [address]- 1581 Sep, [facility] [address] [id number] [place] [address]- 2389 Sep, [facility] [address] [id number] [place] [address]- 4391 Aug, [facility] [address] [id number] [place] [address]- 6923 Aug, [facility] [address] [id number] [place] [address]- 2607 Aug, [facility] [address] [id number] [place] [address]- 3575 Aug, [facility] [address] [id number] [place] [address]- 8904 Aug, [facility] [address] [id number] [place] [address]- 1565 Aug, [facility] [address] [id number] [place] [address]- 6289 Aug, [facility] [address] [id number] [place] [address]- 0806 Aug, [facility] [address] [id number] [place] [address]- 6567 Aug, [facility] [address] [id number] [place] [address]- 3963 Aug, [facility] [address] [id number] [place] [address]- 3238 Aug, [facility] [address] [id number] [place] [address]- 8711 Aug, [facility] [address] [id number] [place] [address]- 7974 Aug, [facility] [address] [id number] [place] [address]- 3342 Aug, [facility] [address] [id number] [place] [address]- 2638 16 Aug, 2013 [facility] [address] [id number] [place] [address]- 4106 16 Aug, 2013 [facility] [address] [id number] [place] [address]- 1488 Aug, [facility] [address] [id number] [place] [address]- 9542 Aug, [facility] [address] [id number] [place] [address]- 9864 Aug, [facility] [address] [id number] [place] [address]- 0075 Aug, [facility] [address] [id number] [place] [address]- 6821 Aug, [facility] [address] [id number] [place] [address]- 2133 Aug, [facility] [address] [id number] [place] [address]- 8729 Aug, [facility] [address] [id number] [place] [address]- 9903 Aug, [facility] [address] [id number] [place] [address]- 4035 July, [facility] [address] [id number] [place] [address]- 9132 July, [facility] [address] [id number] [place] [address]- 6733 July, [facility] [address] [id number] [place] [address]- 3974 July, [facility] [address] [id number] [place] [address]- 6551 July, [facility] [address] [id number] [place] [address]- 3179 July, [facility] [address] [id number] [place] [address]- 7256 Jun, [facility] [address] [id number] [place] [address]- 1997 Jun, [facility] [address] [id number] [place] [address]- 1990 Jun, [facility] [address] [id number] [place] [address]- 6340 Jun, [facility] [address] [id number] [place] [address]- 0532 Jun, [facility] [address] [id number] [place] [address]- 9932 Jun, [facility] [address] [id number] [place] [address]- 7823 Jun, [facility] [address] [id number] [place] [address]- 5663 Jun, [facility] [address] [id number] [place] [address]- 0194 Jun, [facility] [address] [id number] [place] [address]- 8631 Jun, [facility] [address] [id number] [place] [address]- 0110 Jun, [facility] [address] [id number] [place] [address]- 0484 Jun, [facility] [address] [id number], [place] [address]- 0502 Jun, [facility] [address] [id number] [place] [address]- 9067 Jun, [facility] [address] [id number] [place] [address]- 8871 Jun, [facility] [address] [id number] [place] [address]- 7873 May, [facility] [address] [id number], [place] [address]- 7925 May, [facility] [address] [id number] [place] [address]- 6706 May, [facility] [address] [id number] [place] [address]- 8637 May, [facility] [address] [facility] [id number] [place] [address]- 6334 May, [facility] [address] [id number] [place] [address]- 6736 May, [facility] [address] [id number] [place] [address]- 2241 May, [facility] [address] [facility] [id number] [place] [address]- 7738 May, [facility] [address] [facility] [id number] [place] [address]- 1889 May, [facility] [address] [facility] [id number] [place] [address]- 0950 May, [facility] [address] [facility] [id number] [place] [address]- 0513 May, [facility] [address] [facility] [id number] [place] [address]- 4310 May, [facility] [address] [id number] [place] [address]- 8733 May, [facility] [address] [facility] [id number] [place] [address]- 3112 May, [facility] [address] [id number] [place] [address]- 1227 May, [facility] [address] [facility] [id number] [place] [address]- 4649 May, [facility] [address] [facility] [id number], [place] [address]- 9061 May, [facility] [address] [id number] [place] [address]- 8298 Apr, [facility] [facility] [address] [id number] [place] [address]- 1060 Apr, [facility] [address] [id number] [place] [address]- 5291 Apr, [facility] [address] [id number] [place] [address]- 8560 Apr, [facility] [address] [id number] [place] [address]- 9027 Apr, [facility] [address] [id number] [place] [address]- 1131 Apr, [facility] [address] [id number] [place] [address]- 3180 Apr, [facility] [facility] [address] [id number] [place] [address]- 9002 Apr, [facility] [address] [id number] [place] [address]- 8089 Apr, [facility] [place] [address] [id number] [place] [address]- 5882 Apr, [facility] [address] [id number] [place] [address]- 5356 Apr, [facility] [place] [facility] [address] [id number] [place] [address]- 1551 Apr, [facility] [place] [facility] [address] [id number] [place] [address]- 3960 Apr, [facility] [place] [facility] [address] [id number] [place] [address]- 6490 Apr, [facility] [address] [id number] [place] [address]- 3175 Apr, [facility] [place] [facility] [address] [id number], [place] [address]- 6564 Apr, [facility] [address] [id number] [place] [address]- 8847 30 Mar, 2012 [facility] [place] [facility] [address] [id number] [place]102 30 Mar, 2013 [facility] [place] [facility] [address] [id number] [place] [address]- 5205 30 Mar, 2013 [facility] [place] [facility] [address] [id number] [place] [address]- 3977 30 Mar, 2013 [facility] [place] [facility] [address] [id number] [place] [address]- 0016 18 Mar, 2013 [facility] [place] [facility] [address] [id number] [place] [address]- 5035 18 Mar, 2013 [facility] [place] [facility] [address] [id number] [place] [address]- 3097 18 Mar, 2013 [facility] [place] [facility] [address] [id number] [place] [address]- 7837 18 Mar, 2013 [facility] [place] [facility] [address] [id number] [place] [address]- 6013 17 Mar, 2013 [facility] [place] [facility] [address] [id number] [place] [address]- 7644 17 Mar, 2013 [facility] [place] [facility] [address] [id number] [place] [address]- 3181 05 Mar, 2013 [facility] [place] [facility] [address] [id number], [place] [address]- 5396 05 Mar, 2013 [facility] [place] [facility] [address] [id number] [place] [address]- 5246 04 Mar, 2013 [facility] [place] [facility] [address] [id number] [place] [address]- 8309 04 Mar, 2013 [facility] [place] [facility] [address] [id number] [place] [address]- 3122 04 Mar, 2013 [facility] [place] [facility] [address] [id number] [place] [address]- 9821 Mar, [facility] [address] [id number] [place] [address]- 3943 Mar, [facility] [place] [facility] [address] [id number] [place] [address]- 8239 Mar, [facility] [address] [id number] [place] [address]- 6591 Jan, [facility] [place] [facility] [address] [id number] [place] [address]- 7032 Jan, [facility] [address] [id number] [place] [address]- 0440 Jan, [facility] [address] [id number] [place] [address]- 8736 Jan, [facility] [address] [id number] [place] [address]- 2337 Nov, [facility] [address] [id number] [place] [address]- 8690 Nov, [facility] [place] [facility] [address] [id number] [place] [address]- 3698 Nov, [facility] [address] [id number] [place] [address]- 4608 Nov, [facility] [facility] [address] [id number] [place] [address]- 6121 Oct, [facility] [facility] [address] [id number] [place] [address]- 8776 Oct, [facility] [place] [facility] [address] [id number] [place] [address]- 0562 Oct, [facility] [place] [facility] [address] [id number] [place] [address]- 6326 Oct, [facility] [place] [facility] [address] [id number] [place] [address]- 8522 Sep, [facility] [address] [id number] [place] [address]- 8885 Sep, [facility] [place] [facility] [address] [id number] [place] [address]- 9442 Sep, [facility] [place] [facility] [address] [id number] [place] [address]- 9783 Sep, [facility] [place] [facility] [address] [id number] [place] [address]- 8327 Sep, [facility] [place] [facility] [address] [id number] [place] [address]- 9609 Sep, [facility] [place] [facility] [address] [id number] [place] [address]- 4510 Sep, [facility] [place] [facility] [address] [id number] [place] [address]- 7380 Sep, [facility] [place] [facility] [address] [id number] [place] [address]- 6086 Sep, [facility] [place] [facility] [address] [id number] [place] [address]- 1539 Aug, [facility] [place] [facility] [address] [id number] [place] [address]- 3667 Aug, [facility] [place] [facility] [address] [id number] [place] [address]- 3402 Aug, [facility] [place] [facility] [address] [id number] [place] [address] Aug, [facility] [place] [facility] [address] [id number] [place] [address] July, [facility] [place] [facility] [address] [id number] [place] [address] July, [facility] [place] [facility] [address] [id number] [place] [address] July, [facility] [place] [facility] [address] [id number], [place] [address] July, [facility] [address] [id number] [address] July, [facility] [id number] [address] July, [facility] [id number], [place] [address] July, [facility] [id number] [address] Jun, [facility] [id number] [address] May, [facility] [id number], [place] [address] May, [facility] [id number], [place] [address] May, [facility] [id number], [place] [address] May, [facility] [id number], [place] [address] May, [facility] [address] [id number], [place] [address] May, [facility] [address] [id number], [place] [address] May, [facility] [address] [id number], [place] [address] May, IMMUNIZATIONS No Known Immunizations SOCIAL HISTORY Never Assessed REASON FOR VISIT Requests return call PLAN OF CARE VITAL SIGNS MEDICATIONS Unknown Medications RESULTS No Results PROCEDURES No Known procedures INSTRUCTIONS MEDICATIONS ADMINISTERED No Known Medications MEDICAL (GENERAL) HISTORY Type Description Date Medical History peripheral vascular disease Medical History congestive heart failure Medical History hypertension Medical History sleep apnea Medical History chronic obstructive pulmonary disease (COPD) Medical History asthma Medical History hyperlipidemia Medical History chronic renal failure-ESRD on hemodialysis Medical History obesity Medical History type II diabetes Medical History Arthritis Medical History anemia Medical History Left below the knee amputation Surgical History tubal ligation 1989 Surgical History section x2 1985 & 1989 Surgical History left below the knee amputation-gangrene 09/2013 Surgical History port placement 11/05/2014 Surgical History Port placement on left arm 11/2014 Hospitalization History fluid on the lungs 10/2014 Hospitalization History surgeries Hospitalization History breathing difficulties and heart problems 03/2015 Hospitalization History Pneumonia 04/2015
--- OUTSIDE RECORDS SUMMARY | 2017-12-18 19:43 | XMS REPORT ---
Author Author SON THOMAS [facility] Address Unknown Care Team Providers Care Safety Associate Name Role Phone SON THOMAS Unavailable PROBLEMS Type Condition ICD9-CM Code FRH44-MD Code Onset Dates Condition Status SNOMED Code Problem Amput below knee, unilat S88.119A Active 78749858 Problem Chronic congestive heart failure, unspecified congestive heart failure type I50.9 Active 87768655 Problem Intra-dialytic hypotension I95.3 Active 121030066 Problem Cellulitis of right lower extremity L03.115 Active 261309171 Problem Diabetes type 2, controlled E11.9 Active 19386711 Problem Renal failure N19 Active 71933761 Problem Neuropathy G62.9 Active 031304973 Problem Primary insomnia F51.01 Active 6771379 Problem 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 Active 4612433 Problem Chronic congestive heart failure, unspecified heart failure type I50.9 Active 97541630 Problem Seasonal allergic rhinitis due to other allergic trigger J30.89 Active 306422421 Problem Other chronic pain G89.29 Active 33850139 Problem Angina pectoris I20.9 Active 278972388 ALLERGIES Substance Reaction Event Type Date Status Fluarix Unknown Drug Allergy Sep, Active All Tape Unknown Non Drug Allergy Sep, Active ENCOUNTERS Encounter Location Date Diagnosis [facility] [id number] [address] Nov, [facility] [id number] [address] Oct, Diabetes type 2, controlled E11.9 ; Primary insomnia F51.01 and Bilateral headaches R51 [facility] [id number] [address] 7[address] Oct, [facility] [id number] [place] [address] 46150- 8148 Sep, [facility] [address] [id number] [id number] Sep, Dental examination Z01.20 and Dental caries K02.9 [facility] [address], [place] [address] 7[address] Sep, [facility] [id number] [place] [address] 71052- 8722 Sep, [facility] [id number] [place] [address] 60070- 8626 Sep, Other chronic pain G89.29 and Pain in right knee M25.561 [facility] [id number] [place] [address] 03622- 2070 Sep, [facility] [id number] [place] [address] 23210- 7725 Aug, [facility] [id number] [place] [address] 71791- 9443 Aug, 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 [facility] [id number] [place] [address] 95740- 7818 15 Aug, 2017 [facility] [id number] [place] [address] 89340- 3342 11 Aug, 2017 Diabetes type 2, controlled E11.9 and Acute pain of right knee M25.561 [facility] [address], [place] [address]- 3995 Aug, [facility] [address], [place] [address]- 1751 July, [facility] [id number] [place] [address] 21103- 0228 16 Jun, 2017 [facility] [address], [place] [address]- 0220 13 Jun, 2017 [facility] [id number] [place] [address] 29902- 4750 Jun, Diabetes type 2, controlled E11.9 [facility] [address], [place] [address]- 2415 Jun, [facility] [id number] 9206 May, [facility] [address], [place] [address]- 4872 May, [facility] [id number] [place] [address] 40360- 3288 May, [facility] [address], [place] [address]- 6350 May, Chronic congestive heart failure, unspecified congestive heart failure type I50.9 [facility] [address], [place] [address]- 9354 May, Diabetes type 2, controlled E11.9 ; BMI 50.0-59.9, adult Z68.43 ; Chronic congestive heart failure, unspecified heart failure type I50.9 ; Angina pectoris I20.9 ; Seasonal allergic rhinitis due to other allergic trigger J30.89 and Renal failure N19 [facility] [id number] [address] May, [facility] [address], [place] [address]- 6378 May, [facility] [address], [place] [address]- 5028 May, [facility] [address], [place] [address]- 1617 May, [facility] [address], [place] [address]- 5788 May, [facility] [address], [place] [address]- 2671 Apr, BMI 50.0-59.9, adult Z68.43 [facility] [id number] [place] [address] 40992- 8459 Apr, BMI 50.0-59.9, adult Z68.43 ; Post-procedural fever R50.82 and Bronchitis J40 [facility] [id number] [place] [address] 19273- 1953 Apr, Chronic congestive heart failure, unspecified congestive heart failure type I50.9 [facility] [id number] [place] [address] 40389- 1744 Jan, [facility] [id number] [place] [address] 58854- 2669 Jan, Diabetes type 2, controlled E11.9 [facility] [id number] [place] [address] 60188- 6060 Jan, Neuropathy G62.9 [facility] [id number] [place] [address] 88443- 2042 Jan, [facility] [id number] [place] [address] 16051- 4365 Jan, [facility] [id number] [place] [address] 12415- 9022 Jan, [facility] [id number] [place] [address] 88567- 1704 Jan, [facility] [id number] [place] [address] 58488- 2638 Jan, [facility] [id number] [place] [address] 35723- 1540 Dec, [facility] [id number] [place] [address] 63633- 7143 Dec, [facility] [id number] [place] [address] 85917- 0015 Dec, Diabetes type 2, controlled E11.9 [facility] [id number] [place] [address] 43210- 2706 Dec, [facility] [id number], [place] [address]- 8519 Dec, [facility] [address], [place] [address]- 4103 Dec, Chronic congestive heart failure, unspecified congestive heart failure type I50.9 [facility] [address], [place] [address]- 0067 Dec, [facility] [address], [place] [address]- 7513 Dec, [facility] [id number], [place] [address]- 1049 Nov, Chronic congestive heart failure, unspecified congestive heart failure type I50.9 [facility] [address], [place] [address]- 4778 Nov, Chronic congestive heart failure, unspecified congestive heart failure type I50.9 [facility] [address], [place] [address]- 1164 Nov, [facility] [address], [place] [address]- 1844 Oct, [facility] [address], [place] [address]- 1047 Oct, [facility] [address], [place] [address]- 1594 Oct, Chronic congestive heart failure, unspecified congestive heart failure type I50.9 [facility] [id number], [place] [address]- 4292 Oct, [facility] [address], [place] [address]- 9439 Oct, Pneumonia of both lungs due to infectious organism, unspecified part of lung J18.9 [facility] [id number], [place] [address]- 9804 Oct, [facility] [address] [facility] [id number] [place] [address]- 9596 Oct, Diabetes type 2, controlled E11.9 [facility] [address] [facility] [id number] [place] [address] 2546 Oct, Diabetes type 2, controlled E11.9 [facility] [address] [facility] [id number] [place] [address] 2546 Sep, [facility] [address] [facility] [id number], [place] [address] 2548 Sep, Neuropathy G62.9 [facility] [address] [facility] [id number] [place] [address]- 0176 Aug, Intra-dialytic hypotension I95.3 [facility] [id number] [place] [address] 2546 July, [facility] [id number] [place] [address]- 6706 July, [facility] [id number], [place] [address] 2544 July, [facility] [id number] [place] [address]- 9841 July, Amput below knee, unilat S88.119A [facility] [id number] [place] [address]- 8696 May, [facility] [id number], [place] [address] 2546 May, Neuropathy G62.9 [facility] [address] [facility] [id number] [place] [address] 2546 May, [facility] [id number] [place] [address] 2546 May, [facility] [id number] [place] [address] 2546 May, [facility] [id number] [place] [address]- 1736 May, [facility] [id number] [place] [address], [place] [address]- 1700 May, Neuropathy G62.9 [facility] [id number] [place] [address]- 9971 Apr, [facility] [id number] [place] [address], [place] [address]- 3724 Apr, [facility] [id number] [place] [address], [place] [address]- 0830 Apr, Diabetes type 2, controlled E11.9 and Renal failure N19 [facility] [id number] [place] [address] -7471 Apr, [facility] [id number] [place] [address], [place] [address]- 6744 Apr, [facility] [id number] [place] [address]- 2993 Mar, [facility] [id number] [place] [address], [place] [address]- 8548 Mar, [facility] [id number] [place] [address]- 8569 Mar, [facility] [id number] [place] [address]- 1669 Mar, [facility] [id number] [place] [address]- 7779 Mar, [facility] [id number] [place] [address]- 0089 Jan, Localized edema R60.0 [facility] [address] [place] [address]- 5646 Jan, [facility] [address], [place] [address]- 9925 Jan, [facility] [address], [place] [address]- 1343 Jan, [facility] [id number] [place] [address] 68600- 9234 Jan, [facility] [id number] [place] [address] 72784- 3013 Jan, [facility] [id number] [place] [address] 87905- 5249 Jan, [facility] [id number] [place] [address] 19761- 5617 Dec, Diabetes type 2, controlled E11.9 and Chronic nonintractable headache, unspecified headache type R51 [facility] [id number] [place] [address] 95622- 0893 Dec, [facility] [id number] [place] [address] 48761- 5824 Dec, [facility] [id number] [place] [address] 91550- 8601 Nov, [facility] [id number] [place] [address] 78390- 8441 Nov, [facility] [id number] [place] [address] 37998- 5889 Oct, [facility] [id number] [place] [address] 60278- 0767 Oct, Migraine without status migrainosus, not intractable, unspecified migraine type G43.909 [facility] [id number] [place] [address] 38097- 1353 Oct, [facility] [id number] [place] [address] 47899- 0281 Sep, Amput below knee, unilat S88.119A and Neuropathy G62.9 [facility] [id number] [place] [address] 34075- 5796 Sep, [facility] [address] [facility] [id number] [place] [address]- 1961 Sep, [facility] [address] [facility] [id number] [place] [address]- 8415 Sep, [facility] [address] [facility] [id number] [place] [address]- 4211 Aug, [facility] [address] [facility] [id number] [place] [address]- 0845 Aug, [facility] [address] [facility] [id number] [place] [address]- 6405 Aug, Diabetes type 2, controlled E11.9 [facility] [address] [facility] [id number] [place] [address]- 1083 Aug, [facility] [address] [facility] [id number] [place] [address]- 1408 Jun, Diabetes type 2, controlled E11.9 and Neuropathy G62.9 [facility] [address] [facility] [id number] [place] [address]- 0996 Jun, [facility] [address] [facility] [id number] [place] [address]- 1332 Jun, [facility] [address] [facility] [id number] [address]- 4646 Jun, [facility] [address] [facility] [id number], [place] [address]- 1935 Jun, [facility] [address] [facility] [id number], [place] [address]- 8708 May, [facility] [address] [facility] [id number] [place] [address]- 8101 May, Diabetes type 2, controlled E11.9 [facility] [address] [facility] [id number] [place] [address]- 2296 May, [facility] [address] [facility] [id number], [place] [address]- 5829 May, [facility] [address], [place] [address]- 1018 May, [facility] [address], [place] [address]- 2989 May, [facility] [address], [place] [address]- 5590 May, [facility] [address], [place] [address]- 9415 May, [facility] [id number] [place] [address] 71244- 9078 May, [facility] [address], [place] [address]- 1398 May, COPD (chronic obstructive pulmonary disease) J44.9 [facility] [address], [place] [address]- 4103 May, [facility] [address], [place] [address]- 5430 May, [facility] [address], [place] [address]- 9994 May, [facility] [address], [place] [address]- 2752 May, [facility] [address], [place] [address]- 7616 May, [facility] [id number], [place] [address]- 8024 May, Renal failure N19 and Pneumonia, organism unspecified, unspecified laterality, unspecified part of lung J18.9 [facility] [id number], [place] [address]- 9862 Apr, [facility] [address], [place] [address]- 1014 Apr, [facility] [address] [facility] [id number] [place] [address]- 9243 Apr, [facility] [address] [facility] [id number] [place] [address]- 8480 Apr, Diabetes mellitus 250.00 [facility] [address] [facility] [id number] [place] [address]- 6147 Apr, [facility] [address] [facility] [id number] [place] [address]- 2182 Apr, [facility] [address] [facility] [id number] [place] [address], [place] [address]- 4294 Apr, [facility] [id number] [place] [address]- 0573 Apr, [facility] [id number] [place] [address], [place] [address]- 8663 Mar, [facility] [address] [facility] [id number] [place] [address]- 6749 28 Mar, 2015 [facility] [address] [place] [address]- 2208 23 Mar, 2015 [facility] [id number] [place] [address]- 2506 16 Mar, 2015 Renal failure N19 [facility] [address] [place] [address]- 1032 14 Mar, 2015 [facility] [address] [facility] [id number] [place] [address]- 5618 07 Mar, 2015 [facility] [address] [facility] [id number] [place] [address]- 5226 04 Mar, 2015 [facility] [address] [facility] [id number] [place] [address]- 3325 24 Jan, 2015 [facility] [address], [place] [address]- 9004 18 Jan, 2015 [facility] [place] [facility] [address] [id number] [place] [address]- 2890 Jan, [facility] [place] [facility] [address] [id number] [place] [address]- 8177 Jan, [facility] [place] [facility] [address] [id number] [place] [address]- 2938 Dec, [facility] [place] [facility] [address] [id number] [place] [address], [place] [address]- 2480 Dec, [facility] [place] [facility] [address] [id number] [place] [address]- 3017 Dec, [facility] [place] [facility] [address] [id number] [place] [address], [place] [address]- 0700 Nov, [facility] [place] [facility] [address] [facility] [id number] [place] [address]- 6294 Nov, [facility] [place] [facility] [address] [facility] [id number] [place] [address]- 6223 Nov, [facility] [place] [facility] [address] [facility] [id number] [place] [address]- 6826 Oct, [facility] [place] [facility] [address] [facility] [id number] [place] [address]- 1174 Oct, [facility] [place] [facility] [id number] [place] [address]- 6687 Oct, Renal failure 586 and Obesity 278.00 [facility] [place] [facility] [address] [id number], [place] [address]- 9417 Oct, [facility] [place] [facility] [address] [facility] [id number] [place] [address]- 9889 Oct, [facility] [place] [facility] [address] [facility] [id number] [place] [address]- 0137 Oct, [facility] [place] [facility] [address] [facility] [id number] [place] [address]- 4564 Sep, [facility] [place] [facility] [address] [id number] [place] [address] Sep, [facility] [address] [id number] [place] [address] Sep, Diabetes mellitus 250.00 and Congestive heart failure, unspecified 428.0 [facility] [address] [id number] [place] [address] Aug, [facility] [address] [id number] [place] [address] Aug, [facility] [address] [id number] [place] [address] Aug, [facility] [address] [id number] [place] [address] July, [facility] [id number] [place] [address] July, [facility] [id number] [address] July, Heart murmur, systolic 785.2 [facility] [address] [id number] [place] [address] July, [facility] [id number] [place] [address] July, [facility] [address] [id number], [place] [address] Jun, [facility] [address] [id number], [place] [address] Jun, [facility] [address] [id number] [place] [address] May, [facility] [address] [id number] [place] [address] May, [facility] [address] [id number] [place] [address] May, [facility] [place] [facility] [address] [id number] [place] [address] 18 May, 2014 [facility] [place] [facility] [address] [id number] [place] [address] 16 May, 2014 [facility] [place] [facility] [address] [id number] [place] [address] 16 May, 2014 [facility] [place] [facility] [address] [facility] [id number] [place] [address] 10 May, 2014 [facility] [place] [facility] [address] [facility] [id number] [place] [address] 10 May, 2014 [facility] [place] [facility] [address] [id number] [place] [address] May, 2014 [facility] [place] [facility] [address] [facility] [id number] [place] [address] May, 2014 [facility] [place] [facility] [address] [facility] [id number] [place] [address] May, 2014 [facility] [place] [facility] [address] [facility] [id number] [place] [address] May, 2014 [facility] [place] [facility] [address] [facility] [id number] [place] [address] May, 2014 [facility] [place] [facility] [address] [facility] [id number] [place] [address] May, 2014 [facility] [place] [facility] [address] [facility] [id number], [place] [address] May, 2014 [facility] [place] [facility] [address] [facility] [id number] [place] [address] May, 2014 [facility] [place] [facility] [address] [facility] [id number] [place] [address] May, 2014 [facility] [place] [facility] [address] [facility] [id number], [place] [address] 18 May, 2014 [facility] [place] [facility] [id number], [place] [address] May, 2014 [facility] [place] [facility] [address] [id number] [place] [address] 1790 May, 2014 [facility] [place] [facility] [address] [id number] [place] [address] May, 2014 [facility] [place] [facility] [address] [id number] [place] [address] 8486 May, 2014 [facility] [place] [facility] [address] [id number] [place] [address]- 1762 May, 2014 [facility] [place] [facility] [address] [id number] [place] [address]- 4948 May, 2014 [facility] [place] [facility] [address] [id number] [place] [address]- 9321 May, [facility] [place] [facility] [address] [id number] [place] [address] 6214 May, [facility] [place] [facility] [address] [id number] [place] [address]- 2657 Apr, [facility] [place] [facility] [address] [id number] [place] [address] 2420 Apr, [facility] [place] [facility] [address] [facility] [id number] [place] [address]- 5767 Apr, [facility] [place] [facility] [address] [id number] [place] [address]- 1394 Apr, [facility] [place] [facility] [address] [id number], [place] [address] Apr, [facility] [place] [facility] [address] [id number] [place] [address]- 8502 Apr, [facility] [place] [facility] [address] [id number] [place] [address]- 8828 Apr, [facility] [place] [facility] [address] [id number], [place] [address] 5810 Apr, [facility] [place] [facility] [address] [id number] [place] [address]- 7383 Mar, [facility] [place] [facility] [address] [id number] [place] [address]- 2276 Mar, [facility] [place] [facility] [address] [id number] [place] [address] Mar, [facility] [place] [facility] [address] [id number] [place] [address]- 2626 Mar, [facility] [place] [facility] [address] [id number] [place] [address]- 2607 Mar, [facility] [place] [facility] [address] [id number] [place] [address]- 2775 Mar, [facility] [place] [facility] [address] [id number] [place] [address]- 9722 Mar, [facility] [place] [facility] [address] [id number] [place] [address]- 7654 Mar, [facility] [place] [facility] [address] [id number] [place] [address]- 0051 Mar, [facility] [place] [facility] [address] [id number] [place] [address]- 2854 Mar, [facility] [place] [facility] [address] [id number] [place] [address]- 0721 Mar, [facility] [place] [facility] [address] [id number] [place] [address]- 2666 Mar, [facility] [place] [facility] [address] [id number] [place] [address]- 5434 Mar, [facility] [place] [facility] [address] [id number] [place] [address]- 9485 Mar, [facility] [place] [facility] [address] [id number] [place] [address] Mar, [facility] [place] [facility] [address] [id number] [place] [address]- 4677 Mar, [facility] [place] [facility] [address] [id number] [place] [address]- 8507 Mar, [facility] [place] [facility] [address] [id number] [place] [address]- 4896 Mar, [facility] [place] [facility] [address] [id number] [place] [address]- 3392 Mar, [facility] [place] [facility] [address] [id number] [place] [address]- 6590 Mar, [facility] [place] [facility] [address] [id number] [place] [address]- 0605 Mar, [facility] [place] [facility] [address] [id number] [place] [address]- 5861 Mar, [facility] [place] [facility] [address] [id number] [place] [address]- 2581 Jan, [facility] [place] [facility] [address] [id number] [place] [address]- 5212 Jan, [facility] [place] [facility] [address] [id number] [place] [address]- 2739 Jan, [facility] [place] [facility] [address] [id number] [place] [address]- 6210 Jan, [facility] [place] [facility] [address] [id number], [place] [address]- [address] Jan, [facility] [place] [facility] [address] [id number] [place] [address]- 2178 Jan, [facility] [place] [facility] [address] [id number] [place] [address]- 9615 Jan, [facility] [place] [facility] [address] [id number] [place] [address]- 7148 Jan, [facility] [place] [facility] [address] [id number] [place] [address]- 4340 Jan, [facility] [place] [facility] [address] [id number] [place] [address]- 7063 Jan, [facility] [place] [facility] [address] [id number] [place] [address]- 3157 Jan, [facility] [place] [facility] [address] [id number] [place] [address]- 0636 Jan, [facility] [place] [facility] [address] [id number] [place] [address]- 2285 Jan, [facility] [place] [facility] [address] [id number] [place] [address]- 2652 Jan, [facility] [place] [facility] [address] [id number] [place] [address]- 0923 Jan, [facility] [place] [facility] [address] [id number] [place] [address]- 0289 Jan, [facility] [place] [facility] [address] [id number] [place] [address]- 9898 Jan, [facility] [place] [facility] [address] [id number] [place] [address]- 2177 Jan, [facility] [place] [facility] [address] [id number] [place] [address]- 6213 Jan, [facility] [place] [facility] [address] [id number] [place] [address]- 4782 Jan, [facility] [place] [facility] [address] [id number] [place] [address]- 0246 Dec, [facility] [place] [facility] [address] [id number] [place] [address]- 4730 Dec, [facility] [place] [facility] [address] [id number] [place] [address]- 2811 Dec, [facility] [place] [facility] [address] [id number] [place] [address]- 1968 Dec, [facility] [place] [facility] [address] [id number] [place] [address]- 7456 Dec, [facility] [place] [facility] [address] [id number] [place] [address]- 2738 14 Dec, 2013 [facility] [place] [facility] [address] [id number] [place] [address]- 2448 14 Dec, 2013 [facility] [place] [facility] [address] [id number] [place] [address]- 8658 Dec, [facility] [place] [facility] [address] [id number] [place] [address]- 5784 Dec, [facility] [place] [facility] [address] [id number] [place] [address]- 0788 Dec, [facility] [place] [facility] [address] [id number] [place] [address]- 4154 Dec, [facility] [place] [facility] [address] [id number] [place] [address]- 8837 Dec, [facility] [place] [facility] [address] [id number] [place] [address]- 9397 Dec, [facility] [place] [facility] [address] [id number] [place] [address]- 5320 Dec, [facility] [place] [facility] [address] [id number] [place] [address]- 7951 Dec, [facility] [place] [facility] [address] [id number] [place] [address]- 5793 22 Nov, 2013 [facility] [place] [facility] [address] [id number] [place] [address]- 4584 22 Nov, 2013 [facility] [place] [facility] [address] [id number] [place] [address]- 0699 19 Nov, 2013 [facility] [place] [facility] [address] [id number] [place] [address]- 5970 19 Nov, 2013 [facility] [place] [facility] [address] [id number] [place] [address]- 8731 13 Nov, 2013 [facility] [place] [facility] [address] [id number] [place] [address]- 2596 13 Nov, 2013 [facility] [place] [facility] [address] [id number] [place] [address]- 9519 10 Nov, 2013 [facility] [place] [facility] [address] [id number] [place] [address]- 1686 10 Nov, 2013 [facility] [place] [facility] [address] [id number] [place] [address]- 6188 08 Nov, 2013 [facility] [place] [facility] [address] [id number] [place] [address]- 9963 05 Nov, 2013 [facility] [place] [facility] [address] [id number] [place] [address]- 5775 05 Nov, 2013 [facility] [place] [facility] [address] [id number] [place] [address]- 3282 Nov, 2013 [facility] [place] [facility] [address] [id number] [place] [address]- 1108 Nov, 2013 [facility] [place] [facility] [address] [id number] [place] [address]- 8701 Oct, [facility] [place] [facility] [address] [id number] [place] [address]- 4180 Oct, [facility] [place] [facility] [address] [id number] [place] [address]- 0393 Oct, [facility] [place] [facility] [address] [id number] [place] [address]- 4287 Oct, [facility] [place] [facility] [address] [id number] [place] [address]- 6079 Oct, [facility] [place] [facility] [address] [id number] [place] [address]- 2511 Sep, [facility] [place] [facility] [address] [id number] [place] [address]- 1679 Sep, [facility] [place] [facility] [address] [id number] [place] [address]- 7002 Sep, [facility] [place] [facility] [address] [id number] [place] [address]- 4891 Sep, [facility] [place] [facility] [address] [id number] [place] [address]- 3380 Aug, [facility] [place] [facility] [address] [id number] [place] [address]- 5704 Aug, [facility] [place] [facility] [address] [id number] [place] [address]- 8968 Aug, [facility] [place] [facility] [address] [id number] [place] [address]- 0574 Aug, [facility] [place] [facility] [address] [id number] [place] [address]- 4341 Aug, [facility] [place] [facility] [address] [id number] [place] [address]- 7698 Aug, [facility] [place] [facility] [address] [id number] [place] [address]- 4866 Aug, [facility] [place] [facility] [address] [id number] [place] [address]- 7212 Aug, [facility] [place] [facility] [address] [id number] [place] [address]- 3301 Aug, [facility] [place] [facility] [address] [id number] [place] [address]- 9427 Aug, [facility] [place] [facility] [address] [id number] [place] [address]- 8438 Aug, [facility] [place] [facility] [address] [id number] [place] [address]- 2119 Aug, [facility] [place] [facility] [address] [id number] [place] [address]- 2620 Aug, [facility] [place] [facility] [address] [id number] [place] [address]- 3680 Aug, [facility] [place] [facility] [address] [id number] [place] [address]- 0725 Aug, [facility] [place] [facility] [address] [id number] [place] [address]- 4498 Aug, [facility] [place] [facility] [address] [id number] [place] [address]- 0897 Aug, [facility] [place] [facility] [address] [id number] [place] [address]- 9424 Aug, [facility] [place] [facility] [address] [id number] [place] [address]- 3371 Aug, [facility] [place] [facility] [address] [id number] [place] [address]- 4729 Aug, [facility] [place] [facility] [address] [id number] [place] [address]- 8939 Aug, [facility] [place] [facility] [address] [id number] [place] [address]- 5124 Aug, [facility] [place] [facility] [address] [id number] [place] [address]- 9853 Aug, [facility] [place] [facility] [address] [id number] [place] [address]- 2339 Aug, [facility] [place] [facility] [address] [id number] [place] [address]- 7664 July, [facility] [place] [facility] [address] [id number] [place] [address]- 1610 July, [facility] [place] [facility] [address] [id number] [place] [address]- 6510 July, [facility] [place] [facility] [address] [id number] [place] [address]- 4247 July, [facility] [place] [facility] [address] [id number] [place] [address]- 0013 July, [facility] [place] [facility] [address] [id number] [place] [address]- 9144 July, [facility] [place] [facility] [address] [id number] [place] [address]- 0505 Jun, [facility] [place] [facility] [address] [id number] [place] [address]- 8926 30 Jun, 2013 [facility] [place] [facility] [address] [id number] [place] [address]- 9866 Jun, [facility] [place] [facility] [address] [id number] [place] [address]- 8436 Jun, [facility] [place] [facility] [address] [id number] [place] [address]- 7739 Jun, [facility] [place] [facility] [address] [id number] [place] [address]- 3058 Jun, [facility] [place] [facility] [address] [id number] [place] [address]- 2356 Jun, [facility] [place] [facility] [address] [id number] [place] [address]- 5817 Jun, [facility] [place] [facility] [address] [id number] [place] [address]- 2183 Jun, [facility] [place] [facility] [address] [id number] [place] [address]- 1855 Jun, [facility] [place] [facility] [address] [id number] [place] [address]- 2827 Jun, [facility] [place] [facility] [address] [id number] [place] [address]- 0823 Jun, [facility] [place] [facility] [address] [id number] [place] [address]- 2488 Jun, [facility] [place] [facility] [address] [id number] [place] [address]- 5336 Jun, [facility] [place] [facility] [address] [id number] [place] [address]- 3584 Jun, [facility] [place] [facility] [address] [id number] [place] [address]- 2050 May, [facility] [place] [facility] [address] [id number] [place] [address]- 6754 May, [facility] [place] [facility] [address] [id number] [place] [address]- 8982 May, [facility] [place] [facility] [address] [id number] [place] [address]- 2264 May, [facility] [place] [facility] [address] [id number] [place] [address]- 9304 May, [facility] [place] [facility] [address] [id number] [place] [address]- 5618 May, [facility] [place] [facility] [address] [id number] [place] [address]- 9890 May, [facility] [place] [facility] [address] [id number] [place] [address]- 1764 May, [facility] [place] [facility] [address] [id number] [place] [address]- 0643 May, [facility] [place] [facility] [address] [id number] [place] [address]- 2182 May, [facility] [place] [facility] [address] [id number] [place] [address]- 3032 May, [facility] [place] [facility] [address] [id number] [place] [address]- 5236 May, [facility] [place] [facility] [address] [id number] [place] [address]- 1736 May, [facility] [place] [facility] [address] [id number] [place] [address]- 9793 May, [facility] [place] [facility] [address] [id number] [place] [address]- 7444 May, [facility] [place] [facility] [address] [id number] [place] [address]- 0785 May, [facility] [place] [facility] [address] [id number] [place] [address]- 6948 May, [facility] [address] [id number] [place] [address]- 3563 Apr, [facility] [place] [facility] [address] [id number] [place] [address]- 6419 Apr, [facility] [place] [facility] [address] [id number] [place] [address]- 2869 Apr, [facility] [place] [facility] [address] [id number] [place] [address]- 9716 Apr, [facility] [place] [facility] [address] [id number] [place] [address]- 2587 Apr, [facility] [place] [facility] [address] [id number] [place] [address]- 8619 Apr, [facility] [place] [facility] [address] [id number] [place] [address]- 7852 Apr, [facility] [place] [facility] [address] [id number] [place] [address]- 5922 Apr, [facility] [place] [facility] [address] [id number] [place] [address]- 3774 Apr, [facility] [place] [facility] [address] [id number] [place] [address]- 1546 Apr, [facility] [place] [facility] [address] [id number] [place] [address]- 2430 Apr, [facility] [place] [facility] [address] [id number] [place] [address]- 9633 Apr, [facility] [place] [facility] [address] [id number] [place] [address]- 7593 Apr, [facility] [place] [facility] [address] [id number] [place] [address]- 7304 Apr, [facility] [place] [facility] [address] [id number] [place] [address]- 6546 Apr, [facility] [place] [facility] [address] [id number] [place] [address]- 5406 Apr, [facility] [address] [id number] [place] 1411 30 Mar, 2013 [facility] [place] [facility] [address] [id number] [place] [address]- 9727 30 Mar, 2013 [facility] [place] [facility] [address] [id number] [place] [address]- 3236 30 Mar, 2013 [facility] [place] [facility] [address] [id number] [place] [address]- 5574 30 Mar, 2013 [facility] [place] [facility] [address] [id number] [place] [address]- 0209 Mar, [facility] [place] [facility] [address] [id number] [place] [address]- 4056 Mar, [facility] [place] [facility] [address] [id number] [place] [address]- 1683 Mar, [facility] [place] [facility] [address] [id number] [place] [address]- 8840 Mar, [facility] [place] [facility] [address] [id number] [place] [address]- 0005 Mar, [facility] [place] [facility] [address] [id number] [place] [address]- 3611 17 Mar, 2013 [facility] [place] [facility] [address] [id number] [place] [address]- 2787 05 Mar, 2013 [facility] [place] [facility] [address] [id number] [place] 0756 05 Mar, 2013 [facility] [place] [facility] [address] [id number] [place] [address]- 0127 Mar, [facility] [place] [facility] [address] [id number] [place] [address]- 2291 04 Mar, 2013 [facility] [place] [facility] [address] [id number] [place] [address]- 5202 Mar, [facility] [place] [facility] [address] [id number] [place] [address]- 1417 Mar, [facility] [place] [facility] [address] [id number] [place] [address]- 8593 Mar, [facility] [place] [facility] [address] [id number] [place] [address]- 4679 Mar, [facility] [place] [facility] [address] [id number] [place] [address]- 8675 Jan, [facility] [place] [facility] [address] [id number] [place] [address]- 3883 Jan, [facility] [place] [facility] [address] [id number] [place] [address]- 0705 Jan, [facility] [place] [facility] [address] [id number] [place] [address] Jan, [facility] [place] [facility] [address] [id number] [place] [address] Nov, [facility] [place] [facility] [address] [id number] [place] [address] Nov, [facility] [place] [facility] [address] [id number] [place] [address] Nov, [facility] [place] [facility] [address] [id number], [place] [address] Nov, [facility] [place] [facility] [address] [id number], [place] [address] Oct, [facility] [place] [facility] [address] [id number] [place] [address] Oct, [facility] [place] [facility] [address] [id number] [place] [address] Oct, [facility] [place] [facility] [address] [id number] [place] [address] Oct, [facility] [place] [facility] [address] [id number] [place] [address] Sep, [facility] [address] [id number] [place] [address] Sep, [facility] [address] [id number] [place] [address] Sep, [facility] [address] [id number] [place] [address] Sep, [facility] [address] [id number] [place] [address] Sep, [facility] [address] [id number] [place] [address] Sep, [facility] [address] [id number] [place] [address] Sep, [facility] [address] [id number] [place] [address] Sep, [facility] [address] [id number] [place] [address] Sep, [facility] [address] [id number] [place] [address] Aug, [facility] [address] [id number] [place] [address] Aug, [facility] [address] [id number] [place] [address] Aug, [facility] [address] [id number] [place] [address] Aug, [facility] [place] [facility] [address] [id number] [place] [address] July, [facility] [place] [facility] [address] [id number] [place] [address] July, [facility] [address] [id number] [place] [address] July, [facility] [address] [id number], [place] [address] July, [facility] [id number], [place] [address] July, [facility] [id number], [place] [address] July, [facility] [id number], [place] [address] July, [facility] [address] [id number], [place] [address] Jun, [facility] [id number], [place] [address] May, [facility] [id number], [place] [address] May, [facility] [id number], [place] [address] May, [facility] [id number] [address] May, [facility] [address] [id number], [place] [address] May, [facility] [address] [id number], [place] [address] May, [facility] [address] [id number], [place] [address] May, [facility] [address] [id number], [place] [address] May, IMMUNIZATIONS No Known Immunizations SOCIAL HISTORY Never Assessed REASON FOR VISIT DARIELA PLAN OF CARE Activity Details Follow Up prn Reason:referral to dentures and dental services VITAL SIGNS Blood pressure systolic 134 mmHg 2017-10-17 Blood pressure diastolic 88 mmHg 2017-10-17 MEDICATIONS Medication Instructions Dosage Frequency Start Date End Date Duration Status Wheelchair - .... 24h July, lifetime Active Furosemide 40 MG TAKE ONE TABLET BY MOUTH DAILY 30 30 Active Dialyvite Orally Once a day 1 tablet 24h Not-Taking Amlodipine Besylate 10 MG TAKE 1 TABLET BY MOUTH DAILY 30 Active Glucagon Emergency 1 mg 30 Jul, 2013 Not-Taking Munger 10-325 MG Orally every 6 hrs take 1 tablet by oral route every 6 hours as needed for pain 6h May, 28 days Active Nystatin 976158 UNIT/GM Externally Twice a day 1 to affected area 12h Mar, Active Guaifenesin 400 MG Orally 4 times a day 1 tablet as needed 6h 19 Apr, 2016 Active Montelukast Sodium 10 MG TAKE ONE TABLET BY MOUTH ONCE DAILY IN THE EVENING 30 Active Metoprolol Tartrate 100 mg Orally Twice a day 1 tablet 12h 30 Active Mupirocin 2 % APPLY TO AFFECTED AREA TWICE DAILY 5 Active Qttikzbyja-LBGD-Xiwygmvr 50-325-40 MG Orally 4 times a day 1 tablet as needed 6h 30 Active Lidoderm 5 % Externally Once a day 1 patch to skin remove after 12 hours 24h Aug, Active Fluticasone Propionate 50 MCG/ACT Nasally Once a day 1 spray in each nostril 24h 30 days Active Gabapentin 300 MG Orally Three times a day 1 capsule 8h 30 Active HydrOXYzine HCl 25 MG TAKE 1 TABLET BY MOUTH FOUR TIMES DAILY NEEDED FOR ANXIETY 22 Active True Metrix Blood Glucose Test - USE TO TEST BLOOD GLUCOSE LEVELS TWICE DAILY 25 Active Humalog KwikPen 100 UNIT/ML Subcutaneous 3 times a day per sliding scale 8h May, 30 days Active Lantus SoloStar 100 unit/ml Subcutaneous Once a day INJECT 36 UNITS SUBCUTANEOUSLY DAILY AT BEDTIME 24h Active Isosorbide Mononitrate ER 30 mg TAKE 1 TABLET BY MOUTH DAILY 30 Active PredniSONE 20 mg Orally Once a day 2 tablets 24h Apr, 05 days Not-Taking Aspirin 81 mg take 1 tablet (81 mg) by oral route once daily May, Active Renvela 800 MG 2tablet with breakfast and dinner and 1 tablet with lunch Not-Taking Rosuvastatin Calcium 20 MG TAKE 1 TABLET BY MOUTH ONCE A DAY 30 Active Singulair 10 MG take 1 tablet (10 mg) by oral route once daily in the evening Active Loratadine 10 MG TAKE ONE TABLET BY MOUTH DAILY AT BEDTIME 30 Active Crestor 20 mg Orally Once a day 1 tablet 24h Active Oxygen 5 as directed July, Active RESULTS No Results PROCEDURES Procedure Date Ordered Result Body Site LTD ORAL EVALUATION - PROBLEM FOCUS October 17, 2017 INTRAORL-PERIAPICAL 1 FILM [id number] October 17, 2017 EXTRAC ERUPTED TOOTH/EXPOSED ROOT October 17, 2017 EXTRAC ERUPTED TOOTH/EXPOSED ROOT October 17, 2017 INSTRUCTIONS MEDICATIONS ADMINISTERED No Known Medications MEDICAL [...]
--- OUTSIDE RECORDS SUMMARY | 2017-12-18 19:44 | XMS REPORT ---
Author Author MCKENNA HEBERT Organization [facility] Address [address] [place] [address] Care Team Providers Care Ropeman Name Role Phone MCKENNA HEBERT Unavailable PROBLEMS Type Condition ICD9-CM Code XVS77-CF Code Onset Dates Condition Status SNOMED Code Problem Amput below knee, unilat S88.119A Active 03988209 Problem Chronic congestive heart failure, unspecified congestive heart failure type I50.9 Active 61714500 Problem Intra-dialytic hypotension I95.3 Active 641046000 Problem Cellulitis of right lower extremity L03.115 Active 690500836 Problem Diabetes type 2, controlled E11.9 Active 64616683 Problem Renal failure N19 Active 03764141 Problem Neuropathy G62.9 Active 042666704 Problem Primary insomnia F51.01 Active 1031313 Problem 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 Active 8317010 Problem Chronic congestive heart failure, unspecified heart failure type I50.9 Active 56303553 Problem Seasonal allergic rhinitis due to other allergic trigger J30.89 Active 645681239 Problem Other chronic pain G89.29 Active 32486239 Problem Angina pectoris I20.9 Active [id number] ALLERGIES No Information ENCOUNTERS Encounter Location Date Diagnosis [place] [id number] [place] [address] 28429- 6745 Oct, Diabetes type 2, controlled E11.9 ; Primary insomnia F51.01 and Bilateral headaches R51 [facility] [address], [place] [address] 0[address] Oct, [place] [address] [place] [id number] [place] [address] 43016- 0995 Sep, [facility] [id number] [id number] Sep, Dental examination Z01.20 and Dental caries K02.9 [place] [address] [facility] [id number], [place] [address] 379[address] 13 Sep, 2017 [facility] [address] [facility] [place] [id number], [place] [address] 89[address] Sep, [facility] [address] [facility] [place] [id number], [place] [address]- [address] Sep, Other chronic pain G89.29 and Pain in right knee M25.561 [facility] [address] [facility] [place] [id number], [place] [address] 7158 05 Sep, 2017 [facility] [address] [facility] [place] [id number], [place] [address] 4184 Aug, [facility] [address], [place] [address]- 8181 20 Aug, 2017 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 [facility] [id number] [place] [address] 84101- 3845 15 Aug, 2017 [facility] [address], [place] [address]- 8930 11 Aug, 2017 Diabetes type 2, controlled E11.9 and Acute pain of right knee M25.561 [facility] [address], [place] [address]- 4232 09 Aug, 2017 [facility] [address], [place] [address]- 5[address] July, [facility] [address], [place] [address]- 0357 16 Jun, 2017 [facility] [address] [facility] [id number] [place] [address]- 2657 13 Jun, 2017 [facility] [address], [place] [address]- 2614 10 Jun, 2017 Diabetes type 2, controlled E11.9 [facility] [address], [place] [address]- 2252 Jun, [facility] [address], [place] [address]- 6540 May, [facility] [id number] [place] [address] 87186- 6536 May, [facility] [id number] [place] [address] 06691- 5427 May, [facility] [id number] [place] [address] 67680- 3270 May, Chronic congestive heart failure, unspecified congestive heart failure type I50.9 [facility] [id number] [place] [address] 82692- 8786 May, Diabetes type 2, controlled E11.9 ; BMI 50.0-59.9, adult Z68.43 ; Chronic congestive heart failure, unspecified heart failure type I50.9 ; Angina pectoris I20.9 ; Seasonal allergic rhinitis due to other allergic trigger J30.89 and Renal failure N19 [facility] [address] [place] [address] [id number] May, [facility] [id number] [place] [address] 44174- 8696 May, [facility] [id number] [place] [address] 00743- 4617 May, [facility] [id number] [place] [address] 36555- 4194 May, [facility] [id number] [place] [address] 79910- 3236 May, [facility] [id number] [place] [address] 10011- 4800 Apr, BMI 50.0-59.9, adult Z68.43 [facility] [address], [place] [address]- 8656 Apr, BMI 50.0-59.9, adult Z68.43 ; Post-procedural fever R50.82 and Bronchitis J40 [facility] [address] [facility] [place] [id number], [place] [address]- 2297 Apr, Chronic congestive heart failure, unspecified congestive heart failure type I50.9 [facility] [address] [facility] [place] [id number] [place] [address]- 9312 Jan, [facility] [id number] [place] [address] 85583- 2645 Jan, Diabetes type 2, controlled E11.9 [facility] [address] [facility] [place] [id number] [place] [address], [place] [address]- 0303 Jan, Neuropathy G62.9 [facility] [address] [place] [id number] [place] [address], [place] [address]- 7659 Jan, [facility] [id number] [place] [address] 00432- 6412 Jan, [facility] [id number] [place] [address] 37762- 0756 Jan, [facility] [id number] [place] [address] 64512- 4919 Jan, [facility] [id number] [place] [address] 63823- 6799 Jan, [facility] [address], [place] [address]- 1361 Dec, [facility] [address], [place] [address]- 1218 Dec, [facility] [address], [place] [address]- 7854 Dec, Diabetes type 2, controlled E11.9 [facility] [address], [place] [address]- 8410 Dec, [facility] [address] [place] [id number], [place] [address]- 6719 Dec, [facility] [id number] [address]- 7874 Dec, Chronic congestive heart failure, unspecified congestive heart failure type I50.9 [facility] [address], [place] [address]- 2851 Dec, [facility] [address], [place] [address]- 5997 Dec, [facility] [id number] [place] [address] 95145- 3400 Nov, Chronic congestive heart failure, unspecified congestive heart failure type I50.9 [facility] [id number] [place] [address] 06188- 3519 Nov, Chronic congestive heart failure, unspecified congestive heart failure type I50.9 [facility] [address], [place] [address]- 2276 Nov, [facility] [id number] [place] [address] 90155- 5953 Oct, [facility] [address] [place] [address] 50960- 5933 Oct, [facility] [address] [place] [address] 94318- 4414 Oct, Chronic congestive heart failure, unspecified congestive heart failure type I50.9 [facility] [address], [place] [address]- 1941 Oct, [facility] [address], [place] [address]- 4306 Oct, Pneumonia of both lungs due to infectious organism, unspecified part of lung J18.9 [facility] [address], [place] [address]- 0745 Oct, [facility] [address], [place] [address]- 5624 Oct, Diabetes type 2, controlled E11.9 [facility] [id number], [place] [address]- 8702 Oct, Diabetes type 2, controlled E11.9 [facility] [address] [id number] [place] [address] 53655- 9786 Sep, [facility] [id number] [place] [address] 06556 2546 Sep, Neuropathy G62.9 [facility] [id number] [place] [address] 09883 2546 Aug, Intra-dialytic hypotension I95.3 [facility] [address] [place] [id number] [place] [address], [place] [address] 2546 July, [facility] [id number] [place] [address] 57888- 4466 July, [facility] [id number] [place] [address] 64276- 1036 July, [facility] [id number] [place] [address] 32605- 8934 July, Amput below knee, unilat S88.119A [facility] [id number] [place] [address] 45965- 7696 May, [facility] [id number] [place] [address] 79240- 4109 May, Neuropathy G62.9 [facility] [id number] [address] 2546 May, [facility] [address], [place] [address] 2546 May, [facility] [address] [id number] [place] [address] 28016 2546 May, [facility] [address], [place] [address] 2546 May, [facility] [id number] [place] [address] 38718- 0030 May, Neuropathy G62.9 [facility] [address] [facility] [id number] [place] [address]- 9383 Apr, [facility] [address] [place] [address]- 1953 Apr, [facility] [id number] [place] [address]- 2693 Apr, Diabetes type 2, controlled E11.9 and Renal failure N19 [facility] [address] [facility] [id number] [place] [address] -5498 Apr, [facility] [id number] [place] [address], [place] [address]- 5952 Apr, [facility] [id number] [place] [address], [place] [address]- 3255 Mar, [facility] [id number] [place] [address], [place] [address]- 7395 Mar, [facility] [address] [place] [address]- 8316 Mar, [facility] [id number] [place] [address], [place] [address]- 5881 Mar, [facility] [address] [place] [address]- 5841 Mar, [facility] [address] [place] [address]- 8074 Jan, Localized edema R60.0 [facility] [address] [place] [id number] [place] [address]- 9509 Jan, [facility] [id number] [place] [address]- 3750 Jan, [facility] [address] [place] [address]- 1890 Jan, [facility] [address], [place] [address]- 0780 Jan, [facility] [address], [place] [address]- 6331 Jan, [facility] [address] [place] [address] 32709- 0898 Jan, [facility] [id number] [place] [address] 84754- 4286 Dec, Diabetes type 2, controlled E11.9 and Chronic nonintractable headache, unspecified headache type R51 [facility] [address] [place] [address] 11939- 2476 Dec, [facility] [id number] [place] [address] 71294- 0382 Dec, [facility] [id number] [place] [address] 32561- 1358 Nov, [facility] [id number] [place] [address] 85457- 3757 Nov, [facility] [address] [place] [address] 84750- 1564 Oct, [facility] [id number] [place] [address] 35975- 0648 Oct, Migraine without status migrainosus, not intractable, unspecified migraine type G43.909 [facility] [id number] [place] [address] 32621- 4570 Oct, [facility] [address] [place] [address] 01192- 4132 Sep, Amput below knee, unilat S88.119A and Neuropathy G62.9 [facility] [id number] [place] [address] 30208- 2045 Sep, [facility] [id number] [place] [address] 48397- 2566 Sep, [facility] [id number] [place] [address]- 8749 Sep, [facility] [address] [facility] [id number] [place] [address]- 3262 Aug, [facility] [address] [facility] [id number] [place]- 6030 Aug, [facility] [address] [facility] [id number]- 6620 Aug, Diabetes type 2, controlled E11.9 [facility] [address] [facility] [id number] [place] [address]- 1710 Aug, [facility] [address] [facility] [id number] [place] [address]- 1059 Jun, Diabetes type 2, controlled E11.9 and Neuropathy G62.9 [facility] [address] [place] [address]- 7900 Jun, [facility] [address] [facility] [id number] [place] [address]- 7547 Jun, [facility] [address] [place] [address]- 1624 Jun, [facility] [address] [place] [address]- 4139 Jun, [facility] [id number] [place] [address]- 7124 May, [facility] [address] [facility] [id number], [place] [address]- 8746 May, Diabetes type 2, controlled E11.9 [facility] [address] [place] [id number] [place] [address]- 2644 May, [facility] [address] [facility] [id number] [place] [address]- 0968 May, [facility] [id number]- 5232 May, [facility] [address], [place] [address]- 5614 May, [facility] [address] [place] [address]- 8296 May, [facility] [address], [place] [address]- 8316 May, [facility] [address] [place] [address], [place] [address] 2546 May, [facility] [address], [place] [address]- 2252 May, COPD (chronic obstructive pulmonary disease) J44.9 [facility] [address], [place] [address]- 0163 May, [facility] [address], [place] [address]- 1152 May, [facility] [address], [place] [address]- 9554 May, [facility] [address], [place] [address]- 9337 May, [facility] [address], [place] [address]- 1456 May, [facility] [address], [place] [address]- 9966 May, Renal failure N19 and Pneumonia, organism unspecified, unspecified laterality, unspecified part of lung J18.9 [facility] [address], [place] [address]- 0764 Apr, [facility] [address], [place] [address]- 2433 Apr, [facility] [address], [place] [address]- 7580 Apr, [facility] [address] [place] [id number] [place] [address]- 9728 Apr, Diabetes mellitus 250.00 [facility] [address] [id number] [place] [address]- 0016 14 Apr, 2015 [facility] [address] [id number] [place] [address]- 5339 14 Apr, 2015 [facility] [id number] [place] [address], [place] [address]- 6616 Apr, [facility] [address] [id number] [place] [address]- 0895 Apr, [facility] [id number] [place] [address], [place] [address]- 2150 31 Mar, 2015 [facility] [address] [place] [address]- 1831 Mar, [facility] [id number] [place] [address]- 8521 Mar, [facility] [id number] [place] [address]- 6387 16 Mar, 2015 Renal failure N19 [facility] [address] [place] [address]- 6666 14 Mar, 2015 [facility] [id number] [place] [address]- 1104 Mar, [facility] [address] [facility] [id number] [place] [address]- 3869 04 Mar, 2015 [facility] [address] [facility] [id number] [place] [address]- 3464 24 Jan, 2015 [facility] [address] [facility] [id number] [place] [address]- 4293 18 Jan, 2015 [facility] [address] [facility] [id number] [place]- 4324 17 Jan, 2015 [facility] [address], [place] [address]- 2303 Jan, [facility] [address] [facility] [id number] [place] [address]- 9024 Dec, [facility] [place] [facility] [address] [facility] [id number], [place] [address]- 7439 Dec, [facility] [place] [facility] [address] [place] [address]- 1363 Dec, [facility] [address] [facility] [id number] [place] [address] 92177- 9707 Nov, [facility] [address] [facility] [id number] [place] [address], [place] [address]- 4519 Nov, [facility] [id number] [place] [address], [place] [address]- 7249 Nov, [facility] [id number] [place] [address] 52453- 1311 Oct, [facility] [address], [place] [address]- 5523 Oct, [facility] [id number] [place] [address] 15332- 1335 Oct, Renal failure 586 and Obesity 278.00 [facility] [id number] [address]- 1020 Oct, [facility] [place] [facility] [address], [place] [address]- 0898 Oct, [facility] [place] [facility] [address] [facility] [id number], [place] [address]- 7129 Oct, [facility] [place] [facility] [address], [place] [address]- 3246 Sep, [facility] [place] [facility] [address] [facility] [id number], [place] [address]- 8053 Sep, [facility] [address], [place] [address]- 5689 Sep, Diabetes mellitus 250.00 and Congestive heart failure, unspecified 428.0 [facility] [address] [id number] [place] [address]- 4244 Aug, [facility] [address] [facility] [id number], [place] [address]- 6537 Aug, [facility] [address] [facility] [id number] [place] [address]- 7571 Aug, [facility] [address] [facility] [id number], [place] [address] July, [facility] [address] [id number] [place] [address] July, [facility] [id number] [place] [address] July, Heart murmur, systolic 785.2 [facility] [id number] [place] [address] July, [facility] [address] [id number] [address] July, [facility] [id number] [place] [address] Jun, [facility] [id number], [place] [address] Jun, [facility] [address] [id number], [place] [address] May, [facility] [address] [id number], [place] [address] May, [facility] [id number] [place] [address] May, [facility] [address] [facility] [place] [id number], [place] [address] May, [facility] [address] [id number], [place] [address] 16 May, 2014 [facility] [place] [facility] [address] [id number] [place] [address] 16 May, 2014 [facility] [place] [facility] [address] [facility] [place] [id number] [place] [address] May, 2014 [facility] [place] [facility] [address] [facility] [place] [id number] [place] [address] 10 May, 2014 [facility] [place] [facility] [address] [facility] [place] [id number] [place] [address] May, [facility] [place] [facility] [address] [facility] [place] [id number] [place] [address] May, [facility] [place] [facility] [address] [facility] [place] [id number] [place] [address] May, 2014 [facility] [place] [facility] [address] [facility] [place] [id number] [place] [address] May, 2014 [facility] [place] [facility] [address] [facility] [place] [id number] [place] [address] May, 2014 [facility] [place] [facility] [address] [facility] [place] [id number] [place] [address] May, 2014 [facility] [place] [facility] [address] [facility] [place] [id number] [place] [address] May, 2014 [facility] [place] [facility] [address] [facility] [place] [id number] [place] [address] May, 2014 [facility] [place] [facility] [address] [facility] [place] [id number], [place] [address] May, 2014 [facility] [place] [facility] [address] [facility] [place] [id number] [place] [address] May, 2014 [facility] [place] [facility] [address] [facility] [place] [facility] [id number], [place] [address] May, 2014 [facility] [place] [facility] [address] [facility] [place] [id number], [place] [address] May2014 [facility] [place] [facility] [address] [id number] [place] [address] 2299 May, 2014 [facility] [place] [facility] [address] [id number] [place] [address]- 1302 May, 2014 [facility] [place] [facility] [address] [id number] [place] [address]- 2323 May, 2014 [facility] [place] [facility] [address] [id number] [place] [address]- 7253 May, 2014 [facility] [place] [facility] [address] [id number] [place] [address]- 6111 May, [facility] [place] [facility] [address] [id number] [place] [address]- 3129 May, [facility] [place] [facility] [address] [id number] [place] [address]- 7148 Apr, [facility] [place] [facility] [address] [id number] [place] [address]- 2662 Apr, [facility] [place] [facility] [address] [id number] [place] [address]- 0619 Apr, [facility] [place] [facility] [address] [id number] [place] [address]- 1355 Apr, [facility] [place] [facility] [address] [id number], [place] [address] 8926 Apr, [facility] [place] [facility] [address] [id number], [place] [address]- [address]907 Apr, [facility] [place] [facility] [address] [id number] [place] [address]- 6672 Apr, [facility] [place] [facility] [address] [id number], [place] [address]- 1031 Apr, [facility] [place] [facility] [address] [id number], [place] [address] 2227 Mar, [facility] [place] [facility] [address] [id number], [place] [address] 0880 Mar, [facility] [place] [facility] [address] [id number] [place] [address]- 4376 Mar, [facility] [place] [facility] [address] [id number] [place] [address]- 5796 Mar, [facility] [place] [facility] [address] [id number] [place] [address]- 2206 Mar, [facility] [place] [facility] [address] [id number] [place] [address]- 9014 Mar, [facility] [place] [facility] [address] [id number] [place] [address]- 3401 Mar, [facility] [place] [facility] [address] [id number] [place] [address]- 8577 Mar, [facility] [place] [facility] [address] [id number] [place] [address]- 9089 Mar, [facility] [place] [facility] [address] [id number] [place] [address]- 3265 Mar, [facility] [place] [facility] [address] [id number] [place] [address]- 1463 Mar, [facility] [place] [facility] [address] [id number] [place] [address]- 3284 Mar, [facility] [place] [facility] [address] [id number] [place] [address]- 6622 Mar, [facility] [place] [facility] [address] [id number] [place] [address]- 9475 Mar, [facility] [place] [facility] [address] [id number] [place] [address]- 3040 Mar, [facility] [place] [facility] [address] [id number] [place] [address]- 1662 10 Mar, 2014 [facility] [place] [facility] [address] [id number] [place] [address]- 4784 Mar, [facility] [place] [facility] [address] [id number] [place] [address]- 4106 Mar, [facility] [place] [facility] [address] [id number] [place] [address]- 9681 Mar, [facility] [place] [facility] [address] [id number] [place] [address] Mar, [facility] [place] [facility] [address] [id number] [place] [address]- 9888 Mar, [facility] [place] [facility] [address] [id number] [place] [address]- 4217 Mar, [facility] [place] [facility] [address] [id number] [place] [address]- 3743 Jan, [facility] [place] [facility] [address] [id number] [place] [address]- 2795 Jan, [facility] [place] [facility] [address] [id number] [place] [address]- 6879 Jan, [facility] [place] [facility] [address] [id number] [place] [address]- 8401 Jan, [facility] [place] [facility] [address] [id number] [place] [address]- 4891 Jan, [facility] [place] [facility] [address] [id number] [place] [address]- 7264 Jan, [facility] [place] [facility] [address] [id number] [place] [address]- 3718 Jan, [facility] [place] [facility] [address] [id number] [place] [address]- 4652 Jan, [facility] [place] [facility] [address] [id number] [place] [address]- 8946 Jan, [facility] [place] [facility] [address] [id number] [place] [address]- 1033 Jan, [facility] [place] [facility] [address] [id number] [place] [address]- 5155 Jan, [facility] [place] [facility] [address] [id number] [place] [address]- 8856 Jan, [facility] [place] [facility] [address] [id number] [place] [address]- 1018 Jan, [facility] [place] [facility] [address] [id number] [place] [address]- 1812 Jan, [facility] [place] [facility] [address] [id number] [place] [address]- 7723 Jan, [facility] [place] [facility] [address] [id number] [place] [address]- 2771 Jan, [facility] [place] [facility] [address] [id number] [place] [address]- 5560 Jan, [facility] [place] [facility] [address] [id number] [place] [address]- 1435 Jan, [facility] [place] [facility] [address] [id number] [place] [address]- 0552 Jan, [facility] [place] [facility] [address] [id number] [place] [address]- 6320 Jan, [facility] [place] [facility] [address] [id number] [place] [address]- 9310 Dec, [facility] [place] [facility] [address] [id number], [place] [address]- 0108 Dec, [facility] [place] [facility] [address] [id number], [place] [address]- 1670 Dec, [facility] [place] [facility] [address] [id number] [place] [address]- 9097 Dec, [facility] [place] [facility] [address] [id number], [place] [address]- 0574 Dec, [facility] [place] [facility] [address] [id number], [place] [address]- 2135 Dec, [facility] [place] [facility] [address] [id number] [place] [address]- 9066 14 Dec, 2013 [facility] [place] [facility] [address] [id number] [place] [address]- 6979 10 Dec, 2013 [facility] [place] [facility] [address] [id number] [place] [address]- 5373 10 Dec, 2013 [facility] [place] [facility] [address] [id number] [place] [address]- 4403 08 Dec, 2013 [facility] [place] [facility] [address] [id number] [place] [address]- 6213 08 Dec, 2013 [facility] [place] [facility] [address] [id number] [place] [address]- 9148 Dec, [facility] [place] [facility] [address] [id number] [place] [address]- 8914 Dec, [facility] [place] [facility] [address] [id number] [place] [address]- 3607 Dec, [facility] [place] [facility] [address] [id number] [place] [address]- 9060 Dec, [facility] [place] [facility] [address] [id number] [place] [address]- 3879 22 Nov, 2013 [facility] [place] [facility] [address] [id number] [place] [address]- 3508 22 Nov, 2013 [facility] [place] [facility] [address] [id number] [place] [address]- 1933 19 Nov, 2013 [facility] [place] [facility] [address] [id number] [place] [address]- 2543 19 Sep, 2013 [facility] [place] [facility] [address] [id number] [place] [address] 2540 13 Nov, 2013 [facility] [place] [facility] [address] [id number] [place] [address]- 2548 13 Nov, 2013 [facility] [place] [facility] [address] [id number] [place] [address]- 8035 Nov, 2013 [facility] [place] [facility] [address] [id number] [place] [address]- 2916 Nov, 2013 [facility] [place] [facility] [address] [id number] [place] [address]- 2142 Nov, 2013 [facility] [place] [facility] [address] [id number] [place] [address]- 0662 Nov, 2013 [facility] [place] [facility] [address] [id number] [place] [address]- 6011 Nov, 2013 [facility] [place] [facility] [address] [id number] [place] [address]- 2629 Nov, [facility] [place] [facility] [address] [id number] [place] [address]- 6209 Nov, [facility] [place] [facility] [address] [id number] [place] [address]- 3713 Oct, [facility] [place] [facility] [address] [id number] [place] [address]- 7732 Oct, [facility] [place] [facility] [address] [id number] [place] [address]- 8596 Oct, [facility] [place] [facility] [address] [id number] [place] [address]- 7135 Oct, [facility] [place] [facility] [address] [id number] [place] [address]- 7266 Oct, [facility] [place] [facility] [address] [id number] [place] [address]- 5827 Sep, [facility] [place] [facility] [address] [id number] [place] [address]- 0112 Sep, [facility] [place] [facility] [address] [id number] [place] [address]- 5574 Sep, [facility] [place] [facility] [address] [id number] [place] [address]- 7807 Sep, [facility] [place] [facility] [address] [id number] [place] [address]- 2690 Aug, [facility] [place] [facility] [address] [id number] [place] [address]- 2987 Aug, [facility] [place] [facility] [address] [id number] [place] [address]- 2032 Aug, [facility] [place] [facility] [address] [id number] [place] [address]- 1985 Aug, [facility] [place] [facility] [address] [id number] [place] [address]- 8470 Aug, [facility] [place] [facility] [address] [id number] [place] [address]- 2225 Aug, [facility] [place] [facility] [address] [id number] [place] [address]- 3659 Aug, [facility] [place] [facility] [address] [id number] [place] [address]- 7394 Aug, [facility] [place] [facility] [address] [id number] [place] [address]- 4822 Aug, [facility] [place] [facility] [address] [id number] [place] [address]- 0129 Aug, [facility] [place] [facility] [address] [id number] [place] [address]- 7884 Aug, [facility] [place] [facility] [address] [id number] [place] [address]- 7684 Aug, [facility] [place] [facility] [address] [id number] [place] [address]- 0008 Aug, [facility] [place] [facility] [address] [id number] [place] [address]- 4884 Aug, [facility] [place] [facility] [address] [id number] [place] [address]- 3787 Aug, [facility] [place] [facility] [address] [id number] [place] [address]- 2569 Aug, [facility] [place] [facility] [address] [id number] [place] [address]- 1350 Aug, [facility] [place] [facility] [address] [id number] [place] [address]- 9971 Aug, [facility] [place] [facility] [address] [id number] [place] [address]- 6934 Aug, [facility] [place] [facility] [address] [id number] [place] [address]- 5717 Aug, [facility] [place] [facility] [address] [id number] [place] [address]- 2263 Aug, [facility] [place] [facility] [address] [id number] [place] [address]- 7840 Aug, [facility] [place] [facility] [address] [id number] [place] [address]- 8606 Aug, [facility] [place] [facility] [address] [id number] [place] [address]- 2750 Aug, [facility] [place] [facility] [address] [id number] [place] [address]- 4486 July, [facility] [place] [facility] [address] [id number] [place] [address]- 7358 July, [facility] [place] [facility] [address] [id number] [place] [address]- 6536 July, [facility] [place] [facility] [address] [id number] [place] [address]- 2558 July, [facility] [place] [facility] [address] [id number] [place] [address]- 0873 July, [facility] [place] [facility] [address] [id number] [place] [address]- 8021 July, [facility] [place] [facility] [address] [id number] [place] [address]- 0439 Jun, [facility] [place] [facility] [address] [id number] [place] [address]- 8369 Jun, [facility] [place] [facility] [address] [id number] [place] [address]- 0995 Jun, [facility] [place] [facility] [address] [id number] [place] [address]- 8104 Jun, [facility] [place] [facility] [address] [id number] [place] [address]- 6820 Jun, [facility] [place] [facility] [address] [id number] [place] [address]- 8672 Jun, [facility] [place] [facility] [address] [id number] [place] [address]- 7638 Jun, [facility] [place] [facility] [address] [id number] [place] [address]- 5498 Jun, [facility] [place] [facility] [address] [id number] [place] [address]- 5148 Jun, [facility] [place] [facility] [address] [id number] [place] [address]- 2499 Jun, [facility] [place] [facility] [address] [id number] [place] [address]- 9278 Jun, [facility] [place] [facility] [address] [id number] [place] [address]- 9708 Jun, [facility] [place] [facility] [address] [id number] [place] [address]- 1390 Jun, [facility] [place] [facility] [address] [id number], [place] [address]- 2983 Jun, [facility] [place] [facility] [address] [id number] [place] [address]- 0045 Jun, [facility] [place] [facility] [address] [id number] [place] [address]- 6156 May, [facility] [place] [facility] [address] [id number] [place] [address]- 3160 May, [facility] [place] [facility] [address] [id number], [place] [address]- 8249 May, [facility] [place] [facility] [address] [id number] [place] [address]- 9498 May, [facility] [place] [facility] [address] [id number] [place] [address]- 0262 May, [facility] [place] [facility] [address] [facility] [place] [id number] [place] [address]- 9650 May, [facility] [place] [facility] [address] [facility] [place] [id number] [place] [address]- 8695 May, [facility] [place] [facility] [address] [id number] [place] [address]- 8470 May, [facility] [place] [facility] [address] [facility] [place] [id number] [place] [address]- 3742 May, [facility] [place] [facility] [id number] [place] [address]- 1088 May, [facility] [place] [facility] [address] [facility] [place] [id number] [place] [address]- 3784 May, [facility] [place] [facility] [address] [facility] [place] [id number] [place] [address]- 6907 May, [facility] [place] [facility] [address] [facility] [place] [id number] [place] [address]- 9615 May, [facility] [place] [facility] [address] [facility] [place] [id number] [place] [address]- 9304 May, [facility] [place] [facility] [address] [facility] [place] [id number], [place] [address]- 6318 May, [facility] [place] [facility] [address] [id number] [place] [address]- 4824 May, [facility] [place] [facility] [address] [facility] [place] [id number], [place] [address]- 5860 May, [facility] [place] [facility] [address] [facility] [place] [id number], [place] [address]- 4201 Apr, [facility] [place] [facility] [address] [id number] [place] [address]- 2161 Apr, [facility] [place] [facility] [address] [id number] [place] [address]- 8259 Apr, [facility] [place] [facility] [address] [id number] [place] [address]- 8075 Apr, [facility] [place] [facility] [address] [id number] [place] [address]- 5766 Apr, [facility] [address] [id number] [place] [address]- 0514 Apr, [facility] [place] [facility] [address] [id number] [place] [address]- 8792 Apr, [facility] [address] [id number] [place] [address]- 5448 Apr, [facility] [address] [id number] [place] [address]- 8185 Apr, [facility] [place] [facility] [address] [id number] [place] [address]- 9073 Apr, [facility] [place] [facility] [address] [id number] [place] [address]- 7478 Apr, [facility] [place] [facility] [address] [id number] [place] [address]- 0899 Apr, [facility] [place] [facility] [address] [id number] [place] [address]- 2332 Apr, [facility] [place] [facility] [address] [id number] [place] [address]- 6797 Apr, [facility] [place] [facility] [address] [id number] [place] [address]- 1997 Apr, [facility] [place] [facility] [address] [id number] [place] [address]- 8779 Apr, [facility] [place] [facility] [address] [id number] [place] [address]- 5640 30 Mar, 2012 [facility] [address] [id number] [place] [address]- 6156 30 Mar, 2012 [facility] [place] [facility] [address] [id number] [place] [address]996 30 Mar, 2013 [facility] [place] [facility] [address] [id number] [place] [address]- 2913 30 Mar, 2013 [facility] [place] [facility] [address] [id number] [place] [address] 18 Mar, 2013 [facility] [place] [facility] [address] [id number] [place] [address] 18 Mar, 2013 [facility] [place] [facility] [address] [id number] [place] [address] 18 Mar, 2013 [facility] [address] [id number] [place] [address] 18 Mar, 2013 [facility] [place] [facility] [address] [id number] [place] [address] 17 Mar, 2013 [facility] [place] [facility] [address] [id number] [place] [address] 17 Mar, 2013 [facility] [place] [facility] [address] [id number] [place] [address] 05 Mar, 2013 [facility] [place] [facility] [address] [id number], [place] [address] 05 Mar, 2013 [facility] [place] [facility] [address] [id number], [place] [address] 04 Mar, 2013 [facility] [place] [facility] [address] [id number] [place] [address] Mar, [facility] [place] [facility] [address] [id number] [place] [address] 04 Mar, 2013 [facility] [place] [facility] [address] [id number] [place] [address] 04 Mar, 2013 [facility] [place] [facility] [address] [id number] [place] [address] Mar, [facility] [address] [id number] [place] [address] Mar, [facility] [place] [facility] [address] [id number] [place] [address] Jan, [facility] [address] [id number] [place] [address] Jan, [facility] [place] [facility] [address] [id number] [place] [address] Jan, [facility] [address] [id number] [place] [address] Jan, [facility] [address] [id number] [place] [address] Nov, [facility] [facility] [address] [id number] [place] [address] Nov, [facility] [address] [id number] [place] [address] Nov, [facility] [place] [facility] [address] [id number] [place] [address] Nov, [facility] [address] [id number] [place] [address] Oct, [facility] [place] [facility] [address] [id number] [place] [address] Oct, [facility] [place] [facility] [address] [id number] [place] [address] Oct, [facility] [place] [facility] [address] [id number] [place] [address] Oct, [facility] [place] [facility] [address] [id number] [place] [address] Sep, [facility] [place] [facility] [address] [id number] [place] [address] Sep, [facility] [address] [id number] [place] [address] Sep, [facility] [place] [facility] [address] [id number] [place] [address] 118[address] Sep, [facility] [place] [facility] [address] [id number] [place] [address] Sep, [facility] [place] [facility] [address] [id number] [place] [address] Sep, [facility] [place] [facility] [address] [id number] [place] [address] Sep, [facility] [place] [facility] [address] [id number] [place] [address] Sep, [facility] [place] [facility] [address] [id number] [place] [address] Sep, [facility] [place] [facility] [address] [id number] [place] [address] Aug, [facility] [place] [facility] [address] [id number] [place] [address] Aug, [facility] [place] [facility] [address] [id number] [place] [address] Aug, [facility] [place] [facility] [address] [id number] [place] [address] Aug, [facility] [place] [facility] [address] [id number] [place] [address] 8401 July, [facility] [place] [facility] [address] [id number] [place] [address]27 July, [facility] [place] [facility] [address] [id number] [place] [address]479 July, [facility] [place] [facility] [address] [id number] [place] [address] July, [facility] [place] [facility] [address] [id number], [place] [address] July, [facility] [id number], [place] [address] July, [facility] [id number] [address] July, [facility] [id number], [place] [address] Jun, [facility] [id number] [address] May, [facility] [id number], [place] [address] May, [facility] [id number], [place] [address] May, [facility] [id number], [place] [address] May, [facility] [id number], [place] [address] May, [facility] [id number] [address] May, [facility] [address] [id number] [address] May, [facility] [address] [id number] [address] May, IMMUNIZATIONS No Known Immunizations SOCIAL HISTORY Never Assessed REASON FOR VISIT appt PLAN OF CARE VITAL SIGNS MEDICATIONS No Known Medications RESULTS No Results PROCEDURES No Known [...]
--- OUTSIDE RECORDS SUMMARY | 2017-12-18 19:45 | XMS REPORT ---
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 Name Role Phone MCKENNA HEBERT Unavailable PROBLEMS Type Condition ICD9-CM Code QBH99-PC Code Onset Dates Condition Status SNOMED Code Problem Amput below knee, unilat S88.119A Active 62634891 Problem Chronic congestive heart failure, unspecified congestive heart failure type I50.9 Active 76372278 Problem Intra-dialytic hypotension I95.3 Active 087051781 Problem Cellulitis of right lower extremity L03.115 Active 581170222 Problem Diabetes type 2, controlled E11.9 Active 34853745 Problem Renal failure N19 Active 77053263 Problem Neuropathy G62.9 Active 602002903 Problem Primary insomnia F51.01 Active 7120270 Problem 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 Active 6449552 Problem Chronic congestive heart failure, unspecified heart failure type I50.9 Active 90530512 Problem Seasonal allergic rhinitis due to other allergic trigger J30.89 Active 827974626 Problem Other chronic pain G89.29 Active 10017470 Problem Angina pectoris I20.9 Active 326176009 ALLERGIES No Information ENCOUNTERS Encounter Location Date Diagnosis [place] [address] [place] [address]3677- 8565 16 Oct, 2017 Diabetes type 2, controlled E11.9 ; Primary insomnia F51.01 and Bilateral headaches R51 [facility] [address] [address] Oct, [place] [address] [place] [id number] [place] [address] 13239- 4797 Sep, [facility] [id number] [id number] Sep, Dental examination Z01.20 and Dental caries K02.9 [place] [address] [facility] [id number] [address] 7[address] 13 Sep, 2017 [facility] [address] [facility] [id number] [place] [address] Sep, [facility] [place] [address] [facility] [id number] [address]60 Sep, Other chronic pain G89.29 and Pain in right knee M25.561 [facility] [place] [address] [facility] [id number] [place] [address] 5983 05 Sep, 2017 [facility] [place] [address] [facility] [id number] [place] [address] Aug, [facility] [place] [address] [address] 3738 20 Aug, 2017 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 [facility] [place] [address] [place] [address] 01434- 4082 15 Aug, 2017 [facility] [place] [address] [address] 9479 11 Aug, 2017 Diabetes type 2, controlled E11.9 and Acute pain of right knee M25.561 [facility] [place] [address] [address] 3310 09 Aug, 2017 [facility] [place] [address] [address] 0328 July, [facility] [place] [address] [address] 8282 16 Jun, 2017 [facility] [place] [address] [facility] [id number] [place] [address]- 6065 13 Jun, 2017 [facility] [place] [address] [address]- 0848 10 Jun, 2017 Diabetes type 2, controlled E11.9 [facility] [place] [address] [address] 7106 Jun, [facility] [place] [address] [address] 0499 May, [facility] [place] [address] [place] [id number] [place] [address] 12488- 7243 May, [facility] [place] [address] [place] [id number] [place] [address] 34549- 2448 May, [facility] [place] [address] [id number] [place] [address] 41830- 7778 May, Chronic congestive heart failure, unspecified congestive heart failure type I50.9 [facility] [place] [address] [place] [id number] [place] [address] 42242- 0316 May, Diabetes type 2, controlled E11.9 ; BMI 50.0-59.9, adult Z68.43 ; Chronic congestive heart failure, unspecified heart failure type I50.9 ; Angina pectoris I20.9 ; Seasonal allergic rhinitis due to other allergic trigger J30.89 and Renal failure N19 [facility] [address] [place] [address] [id number] May, [facility] [place] [address] [id number] [place] [address] 26272- 0936 May, [facility] [place] [address] [place] [id number] [place] [address] 64375- 9836 May, [facility] [place] [address] [place] [address] 78677- 5193 May, [facility] [place] [address] [id number] [place] [address] 73753- 9320 May, [facility] [place] [address] [place] [address] 95091- 9660 Apr, BMI 50.0-59.9, adult Z68.43 [facility] [place] [address] [address]- 1158 Apr, BMI 50.0-59.9, adult Z68.43 ; Post-procedural fever R50.82 and Bronchitis J40 [facility] [place] [address] [facility] [id number] [place] [address]- 6644 Apr, Chronic congestive heart failure, unspecified congestive heart failure type I50.9 [facility] [place] [address] [facility] [id number] [place] [address]- 3487 Jan, [facility] [place] [address] [id number] [place] [address] 04352- 0161 Jan, Diabetes type 2, controlled E11.9 [facility] [place] [address] [facility] [id number] [place] [address], [place] [address]- 9205 Jan, Neuropathy G62.9 [facility] [place] [address] [place] [id number] [place] [address], [place] [address]- 2080 Jan, [facility] [place] [address] [id number] [place] [address] 58084- 5719 Jan, [facility] [place] [address] [id number] [place] [address] 49588- 2667 Jan, [facility] [place] [address] [place] [address] 44371- 0620 Jan, [facility] [place] [address] [place] [id number] [place] [address] 39100- 7204 Jan, [facility] [place] [address] [address]- 8963 Dec, [facility] [place] [address] [address]- 1913 Dec, [facility] [place] [address] [address]- 8660 Dec, Diabetes type 2, controlled E11.9 [facility] [place] [address] [address]- 3306 Dec, [facility] [place] [address] [place] [id number] [address]- 0205 Dec, [facility] [place] [id number] [address]- 3942 Dec, Chronic congestive heart failure, unspecified congestive heart failure type I50.9 [facility] [place] [address] [address]- 4990 Dec, [facility] [place] [address] [address]- 6985 Dec, [facility] [place] [address] [id number] [place] [address] 34768- 9133 Nov, Chronic congestive heart failure, unspecified congestive heart failure type I50.9 [facility] [place] [address] [id number] [place] [address] 67893- 6748 Nov, Chronic congestive heart failure, unspecified congestive heart failure type I50.9 [facility] [place] [address] [address]- 0741 Nov, [facility] [place] [address] [id number] [place] [address] 95741- 9389 Oct, [facility] [place] [address] [place] [address] 18635- 5122 Oct, [facility] [place] [address] [place] [address] 45015- 9391 Oct, Chronic congestive heart failure, unspecified congestive heart failure type I50.9 [facility] [place] [address] [address]- 8090 Oct, [facility] [address] [address]- 6181 Oct, Pneumonia of both lungs due to infectious organism, unspecified part of lung J18.9 [facility] [place] [address] [address]- 7078 Oct, [facility] [address] [address]- 9677 Oct, Diabetes type 2, controlled E11.9 [facility] [place] [id number] [address]- 2557 Oct, Diabetes type 2, controlled E11.9 [facility] [address] [id number] [place] [address] 80167- 7136 Sep, [facility] [address] [id number] [place] [address] 00553 2546 Sep, Neuropathy G62.9 [facility] [place] [address] [id number] [place] [address] 43004 2546 Aug, Intra-dialytic hypotension I95.3 [facility] [place] [address] [address] [id number] [place] [address], [place] [address] 2546 July, [facility] [place] [address] [place] [id number] [place] [address] 83012- 4736 July, [facility] [address] [place] [id number] [place] [address] 08831- 3646 July, [facility] [place] [id number] [place] [address] 81675- 9403 July, Amput below knee, unilat S88.119A [facility] [place] [id number] [place] [address] 11413- 3716 May, [facility] [place] [address] [place] [address] 33212- 3806 May, Neuropathy G62.9 [facility] [place] [id number] [address] 2546 May, [facility] [place] [address] [address] 2546 May, [facility] [place] [id number] [place] [address] 70403 2546 May, [facility] [place] [address] [address] 2546 May, [facility] [place] [id number] [place] [address] 83095- 5130 May, Neuropathy G62.9 [facility] [place] [address] [facility] [id number] [place] [address]- 6844 Apr, [facility] [place] [address] [place] [address]- 1120 Apr, [facility] [place] [address] [id number] [place] [address]- 2334 Apr, Diabetes type 2, controlled E11.9 and Renal failure N19 [facility] [address] [facility] [id number] [place] [address]4315 Apr, [facility] [place] [id number] [place] [address], [place] [address]- 0419 Apr, [facility] [place] [id number] [place] [address], [place] [address]- 0721 Mar, [facility] [place] [id number] [place] [address], [place] [address]- 1078 Mar, [facility] [place] [address] [place] [address]- 1666 Mar, [facility] [place] [id number] [place] [address], [place] [address]- 0168 Mar, [facility] [place] [address] [place] [address]- 5483 Mar, [facility] [place] [address] [place] [address]- 6839 Jan, Localized edema R60.0 [facility] [place] [address] [place] [address] [id number] [place] [address]- 9287 Jan, [facility] [place] [id number] [place] [address]- 7387 Jan, [facility] [place] [address] [place] [address]- 9633 Jan, [facility] [place] [address] [address]- 4779 Jan, [facility] [place] [address] [address]- 8461 Jan, [facility] [place] [address] [place] [address] 44165- 7073 Jan, [facility] [place] [id number] [place] [address] 22080- 4621 Dec, Diabetes type 2, controlled E11.9 and Chronic nonintractable headache, unspecified headache type R51 [facility] [place] [address] [place] [address] 12454- 8232 Dec, [facility] [place] [id number] [place] [address] 54746- 0497 Dec, [facility] [place] [id number] [place] [address] 63110- 8358 Nov, [facility] [place] [id number] [place] [address] 65850- 8336 Nov, [facility] [place] [address] [place] [address] 58811- 5452 Oct, [facility] [place] [id number] [place] [address] 10477- 0791 Oct, Migraine without status migrainosus, not intractable, unspecified migraine type G43.909 [facility] [place] [address] [place] [address] 08391- 5461 Oct, [facility] [place] [address] [place] [address] 47207- 2510 Sep, Amput below knee, unilat S88.119A and Neuropathy G62.9 [facility] [place] [id number] [place] [address] 80820- 8856 Sep, [facility] [place] [address] [place] [address] 92405- 8355 Sep, [facility] [place] [id number] [place] [address]- 0549 Sep, [facility] [place] [address] [facility] [id number] [place] [address]- 6649 Aug, [facility] [place] [address] [facility] [id number] [place]- 8269 Aug, [facility] [place] [address] [facility] [id number] [place] 5029 Aug, Diabetes type 2, controlled E11.9 [facility] [place] [address] [facility] [id number] [place] [address]- 9246 Aug, [facility] [place] [address] [facility] [id number] [place] [address]- 7663 Jun, Diabetes type 2, controlled E11.9 and Neuropathy G62.9 [facility] [place] [address] [place] [address]- 8607 Jun, [facility] [place] [address] [facility] [id number] [place] [address]- 6145 Jun, [facility] [place] [address] [place] [address]- 0481 Jun, [facility] [place] [address] [place] [address]- 9799 Jun, [facility] [place] [address] [id number] [place] [address] May, [facility] [place] [address] [facility] [id number] [address] May, Diabetes type 2, controlled E11.9 [facility] [place] [address] [id number] [place] [address] May, [facility] [place] [address] [facility] [id number] [place] [address] May, [facility] [place] [address] [id number] [address] [address] May, [facility] [place] [id number] [address] May, [facility] [place] [id number] [place] [address] May, [facility] [place] [id number] [address] May, [facility] [place] [id number] [place] [address], [place] [address] May, [facility] [place] [id number] [address] May, COPD (chronic obstructive pulmonary disease) J44.9 [facility] [place] [id number] [address] May, [facility] [place] [id number] [address] May, [facility] [place] [id number] [address] May, [facility] [place] [id number] [address] May, [facility] [place] [id number] [address] May, [facility] [place] [id number] [address] May, Renal failure N19 and Pneumonia, organism unspecified, unspecified laterality, unspecified part of lung J18.9 [facility] [place] [id number] [address] Apr, [facility] [place] [id number] [address] Apr, [facility] [place] [id number] [address] Apr, [facility] [place] [address] [id number] [address] Apr, Diabetes mellitus 250.00 [facility] [address] [id number] [place] [address] 14 Apr, 2015 [facility] [address] [id number] [place] [address] 14 Apr, 2015 [facility] [id number] [place] [address], [place] [address]- [address] Apr, [facility] [address] [id number] [place] [address] Apr, [facility] [address] [id number] [place] [address], [place] [address]- [address] 31 Mar, 2015 [facility] [id number] [place] [address] Mar, [facility] [id number] [address] Mar, [facility] [address] [id number] [address] 16 Mar, 2015 Renal failure N19 [facility] [id number] [place] [address] 14 Mar, 2015 [facility] [address] [id number] [address] Mar, [facility] [address] [facility] [id number] [place] [address]- [address] 04 Mar, 2015 [facility] [address] [facility] [id number] [place] [address] 24 Jan, 2015 [facility] [address] [facility] [id number] [place] [address] 4654 18 Jan, 2015 [facility] [address] [facility] [id number] [place] [address] 17 Jan, 2015 [facility] [id number] [address] 85[address] Jan, [facility] [address] [facility] [id number] [place] [address] 6689 Dec, [facility] [place] [facility] [address] [facility] [id number] [address] Dec, [facility] [place] [facility] [id number] [place] [address] 69[address] Dec, [facility] [address] [facility] [id number] [place] [address]- 8793 Nov, [facility] [address] [facility] [id number] [place] [address], [place] [address] 1894 Nov, [facility] [address] [place] [id number] [place] [address], [place] [address]- 6928 Nov, [facility] [id number] [place] [address]- 9465 Oct, [facility] [id number] [address]- 7528 Oct, [facility] [id number] [place] [address]- 9880 Oct, Renal failure 586 and Obesity 278.00 [facility] [address] [id number] [address] 3905 Oct, [facility] [place] [facility] [id number] [address] 4698 Oct, [facility] [place] [facility] [address] [facility] [id number] [place] [address]- 3236 Oct, [facility] [place] [facility] [id number] [address]- 5947 Sep, [facility] [place] [facility] [address] [facility] [id number] [place] [address]- 3816 Sep, [facility] [id number] [address]- 72[address] Sep, Diabetes mellitus 250.00 and Congestive heart failure, unspecified 428.0 [facility] [place] [address] [id number] [place] [address]- 1527 Aug, [facility] [place] [address] [facility] [id number] [place] [address]- 4999 Aug, [facility] [place] [address] [facility] [id number] [place] [address]- 0202 Aug, [facility] [place] [address] [facility] [id number] [place] [address]- 2449 July, [facility] [place] [address] [id number] [place] [address]- 2621 July, [facility] [place] [id number] [place] [address]- 9327 July, Heart murmur, systolic 785.2 [facility] [place] [id number] [place] [address]- 4551 July, [facility] [place] [address] [id number] [address]- 7246 July, [facility] [place] [id number] [place] [address]- 0805 Jun, [facility] [place] [address]00565[address] [address]- 2061 Jun, [facility] [place] [address] [id number] [address]- 7445 May, [facility] [place] [address] [id number] [place] [address]- 5026 May, [facility] [place] [id number] [place] [address]- 1880 May, [facility] [place] [address] [facility] [id number] [place] [address]- 4599 May, [facility] [place] [address] [id number] [address]- 1591 16 May, 2014 [facility] [place] [facility] [address] [id number] [place] [address]- 4528 16 May, 2014 [facility] [place] [facility] [address] [facility] [id number] [place] [address]- 8235 May, 2014 [facility] [place] [facility] [address] [facility] [id number] [place] [address]- 0264 10 May, 2014 [facility] [place] [facility] [address] [facility] [id number] [place] [address]- 9556 May, [facility] [place] [facility] [address] [facility] [id number] [place] [address]- 3468 May, [facility] [place] [facility] [address] [facility] [id number] [place] [address]- 8040 May, 2014 [facility] [place] [facility] [address] [facility] [id number] [place] [address]- 8923 May, 2014 [facility] [place] [facility] [address] [facility] [id number] [place] [address]- 9664 May, 2014 [facility] [place] [facility] [address] [facility] [id number] [place] [address]- 3276 May, 2014 [facility] [place] [facility] [address] [facility] [id number] [place] [address]- 5616 May, 2014 [facility] [place] [facility] [address] [facility] [id number] [place] [address]- 4231 May, 2014 [facility] [place] [facility] [address] [facility] [id number] [place] [address]- 7000 May, 2014 [facility] [place] [facility] [address] [facility] [id number] [place] [address]- 3414 May, 2014 [facility] [place] [facility] [address] [facility] [id number] [place] [address]- 1235 May, 2014 [facility] [place] [facility] [address] [facility] [id number] [place] [address]- 0967 May2014 [facility] [place] [facility] [address] [id number] [place] [address]- 9013 May, 2014 [facility] [place] [facility] [address] [id number] [place] [address]- 4569 May, 2014 [facility] [place] [facility] [address] [id number] [place] [address]- 5932 May, 2014 [facility] [place] [facility] [address] [id number] [place] [address]- 4214 May, 2014 [facility] [place] [facility] [address] [id number] [place] [address]- 3938 May, [facility] [place] [facility] [address] [id number] [place] [address]- 0278 May, [facility] [place] [facility] [address] [id number] [place] [address]- 3558 Apr, [facility] [place] [facility] [address] [id number] [place] [address]- 5969 Apr, [facility] [place] [facility] [address] [id number] [place] [address]- 3932 Apr, [facility] [place] [facility] [address] [id number] [place] [address]- 5221 Apr, [facility] [place] [facility] [address] [id number] [place] [address]- 4026 Apr, [facility] [place] [facility] [address] [id number] [address]- 1407 Apr, [facility] [place] [facility] [address] [id number] [place] [address]- 3736 Apr, [facility] [place] [facility] [address] [id number] [place] [address]- 9431 Apr, [facility] [place] [facility] [address] [id number] [place] [address]- 9494 Mar, [facility] [place] [facility] [address] [id number] [place] [address]- 9992 Mar, [facility] [place] [facility] [address] [id number] [place] [address]- 2566 Mar, [facility] [place] [facility] [address] [id number] [place] [address]- 6046 Mar, [facility] [place] [facility] [address] [id number] [place] [address]- 6576 Mar, [facility] [place] [facility] [address] [id number] [place] [address]- 9943 Mar, [facility] [place] [facility] [address] [id number] [place] [address]- 7747 Mar, [facility] [place] [facility] [address] [id number] [place] [address]- 1837 Mar, [facility] [place] [facility] [address] [id number] [place] [address]- 5021 Mar, [facility] [place] [facility] [address] [id number] [place] [address]- 2318 Mar, [facility] [place] [facility] [address] [id number] [place] [address]- 4499 Mar, [facility] [place] [facility] [address] [id number] [place] [address]- 8749 Mar, [facility] [place] [facility] [address] [id number] [place] [address]- 4727 Mar, [facility] [place] [facility] [address] [id number] [place] [address]- 9925 Mar, [facility] [place] [facility] [address] [id number] [place] [address]- 3909 Mar, [facility] [place] [facility] [address] [id number] [place] [address]- 6235 10 Mar, 2014 [facility] [place] [facility] [address] [id number] [place] [address]- 6823 Mar, [facility] [place] [facility] [address] [id number] [place] [address]- 1007 Mar, [facility] [place] [facility] [address] [id number] [place] [address]- 2322 Mar, [facility] [place] [facility] [address] [id number] [place] 1206 Mar, [facility] [place] [facility] [address] [id number] [place] [address]- 2214 Mar, [facility] [place] [facility] [address] [id number] [place] [address]- 3695 Mar, [facility] [place] [facility] [address] [id number] [place] [address]- 2600 Jan, [facility] [place] [facility] [address] [id number] [place] [address]- 8310 Jan, [facility] [place] [facility] [address] [id number] [place] [address]- 8666 Jan, [facility] [place] [facility] [address] [id number] [place] [address]- 6280 Jan, [facility] [place] [facility] [address] [id number] [place] [address]- 0795 Jan, [facility] [place] [facility] [address] [id number] [place] [address]- 5124 Jan, [facility] [place] [facility] [address] [id number] [place] [address]- 5096 Jan, [facility] [place] [facility] [address] [id number] [place] [address]- 2744 Jan, [facility] [place] [facility] [address] [id number] [place] [address]- 6538 Jan, [facility] [place] [facility] [address] [id number] [place] [address]- 4018 Jan, [facility] [place] [facility] [address] [id number] [place] [address]- 0767 Jan, [facility] [place] [facility] [address] [id number] [place] [address]- 3833 Jan, [facility] [place] [facility] [address] [id number] [place] [address]- 7105 Jan, [facility] [place] [facility] [address] [id number] [place] [address]- 6281 Jan, [facility] [place] [facility] [address] [id number] [place] [address]- 2904 Jan, [facility] [place] [facility] [address] [id number] [place] [address]- 3948 Jan, [facility] [place] [facility] [address] [id number] [place] [address]- 6536 Jan, [facility] [place] [facility] [address] [id number] [place] [address]- 1248 Jan, [facility] [place] [facility] [address] [id number] [place] [address]- 4245 Jan, [facility] [place] [facility] [address] [id number] [place] [address]- 0364 Jan, [facility] [place] [facility] [address] [id number] [place] [address]- 6948 Dec, [facility] [place] [facility] [address] [id number] [address]- 7347 Dec, [facility] [place] [facility] [address] [id number] [place] [address]- 4417 Dec, [facility] [place] [facility] [address] [id number] [place] [address]- 5823 Dec, [facility] [place] [facility] [address] [id number] [place] [address]- 9347 Dec, [facility] [place] [facility] [address] [id number] [place] [address]- 9854 Dec, [facility] [place] [facility] [address] [id number] [place] [address]- 1475 14 Dec, 2013 [facility] [place] [facility] [address] [id number] [place] [address]- 8699 10 Dec, 2013 [facility] [place] [facility] [address] [id number] [place] [address]- 0738 10 Dec, 2013 [facility] [place] [facility] [address] [id number] [place] [address]- 0286 08 Dec, 2013 [facility] [place] [facility] [address] [id number] [place] [address]- 1944 08 Dec, 2013 [facility] [place] [facility] [address] [id number] [place] [address]- 2679 Dec, [facility] [place] [facility] [address] [id number] [place] [address]- 6650 Dec, [facility] [place] [facility] [address] [id number] [place] [address]- 1998 Dec, [facility] [place] [facility] [address] [id number] [place] [address]- 5523 Dec, [facility] [place] [facility] [address] [id number] [place] [address]- 2447 22 Nov, 2013 [facility] [place] [facility] [address] [id number] [place] [address]- 3285 22 Nov, 2013 [facility] [place] [facility] [address] [id number] [place] [address]- 6784 19 Nov, 2013 [facility] [place] [facility] [address] [id number] [place] [address]- 2548 19 Sep, 2013 [facility] [place] [facility] [address] [id number] [place] [address] 2548 13 Nov, 2013 [facility] [place] [facility] [address] [id number] [place] [address]- 254 13 Nov, 2013 [facility] [place] [facility] [address] [id number] [place] [address]- 4879 Nov, 2013 [facility] [place] [facility] [address] [id number] [place] [address]- 3459 Nov, 2013 [facility] [place] [facility] [address] [id number] [place] [address]- 4130 Nov, 2013 [facility] [place] [facility] [address] [id number] [place] [address]- 1309 Nov, 2013 [facility] [place] [facility] [address] [id number] [place] [address]- 2164 Nov, 2013 [facility] [place] [facility] [address] [id number] [place] [address]- 0358 Nov, [facility] [place] [facility] [address] [id number] [place] [address]- 3082 Nov, [facility] [place] [facility] [address] [id number] [place] [address]- 0786 Oct, [facility] [place] [facility] [address] [id number] [place] [address]- 5940 Oct, [facility] [place] [facility] [address] [id number] [place] [address]- 4934 Oct, [facility] [place] [facility] [address] [id number] [place] [address]- 8168 Oct, [facility] [place] [facility] [address] [id number] [place] [address]- 7763 Oct, [facility] [place] [facility] [address] [id number] [place] [address]- 8905 Sep, [facility] [place] [facility] [address] [id number] [place] [address]- 7057 Sep, [facility] [place] [facility] [address] [id number] [place] [address]- 2793 Sep, [facility] [place] [facility] [address] [id number] [place] [address]- 6969 Sep, [facility] [place] [facility] [address] [id number] [place] [address]- 6132 Aug, [facility] [place] [facility] [address] [id number] [place] [address]- 1816 Aug, [facility] [place] [facility] [address] [id number] [place] [address]- 8572 Aug, [facility] [place] [facility] [address] [id number] [place] [address]- 9316 Aug, [facility] [place] [facility] [address] [id number] [place] [address]- 4986 Aug, [facility] [place] [facility] [address] [id number] [place] [address]- 9286 Aug, [facility] [place] [facility] [address] [id number] [place] [address]- 7025 Aug, [facility] [place] [facility] [address] [id number] [place] [address]- 3009 Aug, [facility] [place] [facility] [address] [id number] [place] [address]- 2321 Aug, [facility] [place] [facility] [address] [id number] [place] [address]- 3010 Aug, [facility] [place] [facility] [address] [id number] [place] [address]- 2642 Aug, [facility] [place] [facility] [address] [id number] [place] [address]- 8742 Aug, [facility] [place] [facility] [address] [id number] [place] [address]- 4605 Aug, [facility] [place] [facility] [address] [id number] [place] [address]- 2966 Aug, [facility] [place] [facility] [address] [id number] [place] [address]- 9767 Aug, [facility] [place] [facility] [address] [id number] [place] [address]- 2844 Aug, [facility] [place] [facility] [address] [id number] [place] [address]- 6042 Aug, [facility] [place] [facility] [address] [id number] [place] [address]- 1233 Aug, [facility] [place] [facility] [address] [id number] [place] [address]- 5039 Aug, [facility] [place] [facility] [address] [id number] [place] [address]- 5318 Aug, [facility] [place] [facility] [address] [id number] [place] [address]- 1156 Aug, [facility] [place] [facility] [address] [id number] [place] [address]- 6428 Aug, [facility] [place] [facility] [address] [id number] [place] [address]- 3162 Aug, [facility] [place] [facility] [address] [id number] [place] [address]- 5241 Aug, [facility] [place] [facility] [address] [id number] [place] [address]- 1576 July, [facility] [place] [facility] [address] [id number] [place] [address]- 3685 July, [facility] [place] [facility] [address] [id number] [place] [address]- 2896 July, [facility] [place] [facility] [address] [id number] [place] [address]- 1266 July, [facility] [place] [facility] [address] [id number] [place] [address]- 3893 July, [facility] [place] [facility] [address] [id number] [place] [address]- 8021 July, [facility] [place] [facility] [address] [id number] [place] [address]- 9286 Jun, [facility] [place] [facility] [address] [id number] [place] [address]- 9928 Jun, [facility] [place] [facility] [address] [id number] [place] [address]- 0417 Jun, [facility] [place] [facility] [address] [id number] [place] [address]- 7808 Jun, [facility] [place] [facility] [address] [id number] [place] [address]- 5581 Jun, [facility] [place] [facility] [address] [id number] [place] [address]- 5906 Jun, [facility] [place] [facility] [address] [id number] [place] [address]- 4976 Jun, [facility] [place] [facility] [address] [id number] [place] [address]- 4348 Jun, [facility] [place] [facility] [address] [id number] [place] [address]- 0322 Jun, [facility] [place] [facility] [address] [id number] [place] [address]- 7999 Jun, [facility] [place] [facility] [address] [id number] [place] [address]- 8113 Jun, [facility] [place] [facility] [address] [id number] [place] [address] Jun, [facility] [place] [facility] [address] [id number] [place] [address] Jun, [facility] [place] [facility] [address] [id number] [place] [address] Jun, [facility] [place] [facility] [address] [id number] [place] [address] Jun, [facility] [place] [facility] [address] [id number] [place] [address] May, [facility] [place] [facility] [address] [id number] [place] [address] May, [facility] [place] [facility] [address] [id number] [place] [address] May, [facility] [place] [facility] [address] [id number] [place] [address] May, [facility] [place] [facility] [address] [id number] [place] [address] May, [facility] [place] [facility] [address] [facility] [id number] [place] [address] May, [facility] [place] [facility] [address] [facility] [id number] [place] [address] May, [facility] [place] [facility] [address] [id number] [place] [address] May, [facility] [place] [facility] [address] [facility] [id number] [place] [address] May, [facility] [place] [facility] [address] [place] [id number] [place] [address] May, [facility] [place] [facility] [address] [facility] [id number] [place] [address] May, [facility] [place] [facility] [address] [facility] [id number] [place] [address] May, [facility] [place] [facility] [address] [facility] [id number] [place] [address] May, [facility] [place] [facility] [address] [facility] [id number] [place] [address] May, [facility] [place] [facility] [address] [facility] [id number] [place] [address] May, [facility] [place] [facility] [address] [id number] [place] [address] May, [facility] [place] [facility] [address] [facility] [id number] [place] [address] May, [facility] [place] [facility] [address] [facility] [id number] [place] [address] Apr, [facility] [place] [facility] [address] [id number] [place] [address] Apr, [facility] [place] [facility] [address] [id number] [place] [address] Apr, [facility] [place] [facility] [address] [id number] [place] [address] Apr, [facility] [place] [facility] [address] [id number] [place] [address] Apr, [facility] [address] [id number] [place] [address] Apr, [facility] [place] [facility] [address] [id number] [place] [address] Apr, [facility] [address] [id number] [place] [address] Apr, [facility] [address] [id number] [place] [address] Apr, [facility] [place] [facility] [address] [id number] [place] [address]184 Apr, [facility] [place] [facility] [address] [id number] [place] [address] Apr, [facility] [place] [facility] [address] [id number] [place] [address] 14[address] Apr, [facility] [place] [facility] [address] [id number] [place] [address]- [address]85 Apr, [facility] [place] [facility] [address] [id number] [place] [address] Apr, [facility] [place] [facility] [address] [id number] [place] [address] Apr, [facility] [place] [facility] [address] [id number] [place] [address] Apr, [facility] [place] [facility] [address] [id number] [place] [address]- [address] 30 Mar, 2012 [facility] [address] [id number] [place] [address]- [address]66 30 Mar, 2012 [facility] [place] [facility] [address] [id number] [place] [address] 30 Mar, 2013 [facility] [place] [facility] [address] [id number] [place] [address] 30 Mar, 2013 [facility] [place] [facility] [address] [id number] [place] [address]- [address] 18 Mar, 2013 [facility] [place] [facility] [address] [id number] [place] [address]- [address] 18 Mar, 2013 [facility] [place] [facility] [address] [id number] [place] [address]- [address] 18 Mar, 2013 [facility] [address] [id number] [place] [address]- [address] 18 Mar, 2013 [facility] [place] [facility] [address] [id number] [place] [address]- 0707 17 Mar, 2013 [facility] [place] [facility] [address] [id number] [place] [address]- 4096 17 Mar, 2013 [facility] [place] [facility] [address] [id number] [place] [address]- [address] 05 Mar, 2013 [facility] [place] [facility] [address] [id number] [place] [address] 05 Mar, 2013 [facility] [place] [facility] [address] [id number] [place] [address]- 1557 04 Mar, 2013 [facility] [place] [facility] [address] [id number] [place] [address]- [address]73 Mar, [facility] [place] [facility] [address] [id number] [place] [address]- [address] 04 Mar, 2013 [facility] [place] [facility] [address] [id number] [place] [address] 04 Mar, 2013 [facility] [place] [facility] [address] [id number] [place] [address] Mar, [facility] [address] [id number] [place] [address] Mar, [facility] [place] [facility] [address] [id number] [place] [address] Jan, [facility] [address] [id number] [place] [address]- [address] Jan, [facility] [place] [facility] [address] [id number] [place] [address] Jan, [facility] [address] [id number] [place] [address]- 2795 Jan, [facility] [address] [id number] [place] [address]- [address] Nov, [facility] [place] [facility] [address] [id number] [place] [address]- [address] Nov, [facility] [address] [id number] [place] [address]- 30[address] Nov, [facility] [place] [facility] [address] [id number] [place] [address] Nov, [facility] [address] [id number] [place] [address]- 2008 Oct, [facility] [place] [facility] [address] [id number] [place] [address]- [address]196 Oct, [facility] [place] [facility] [address] [id number] [place] [address]- [address]645 Oct, [facility] [place] [facility] [address] [id number] [place] [address]- [address]35 Oct, [facility] [facility] [address] [id number] [place] [address] Sep, [facility] [place] [facility] [address] [id number] [place] [address] Sep, [facility] [address] [id number] [place] [address] Sep, [facility] [place] [facility] [address] [id number] [place] [address] Sep, [facility] [place] [facility] [address] [id number] [place] [address] Sep, [facility] [place] [facility] [address] [id number] [place] [address] Sep, [facility] [place] [facility] [address] [id number] [place] [address] Sep, [facility] [place] [facility] [address] [id number] [place] [address] Sep, [facility] [place] [facility] [address] [id number] [place] [address] Sep, [facility] [place] [facility] [address] [id number] [place] [address] Aug, [facility] [place] [facility] [address] [id number] [place] [address] Aug, [facility] [place] [facility] [address] [id number] [place] [address] Aug, [facility] [place] [facility] [address] [id number] [place] [address] Aug, [facility] [place] [facility] [address] [id number] [place] [address] July, [facility] [place] [facility] [address] [id number] [place] [address] July, [facility] [place] [facility] [address] [id number] [place] [address] July, [facility] [place] [facility] [address] [id number] [place] [address] July, [facility] [place] [facility] [address] [id number] [address] July, [facility] [place] [id number] [address] July, [facility] [place] [id number] [address] July, [facility] [place] [id number] [address] Jun, [facility] [place] [id number] [address] May, [facility] [place] [id number] [address] May, [facility] [place] [id number] [address] May, [facility] [place] [id number] [address] May, [facility] [place] [id number] [address] May, [facility] [place] [id number] [address] May, [facility] [place] [address] [id number] [address] May, [facility] [place] [address] [id number] [address] May, IMMUNIZATIONS No Known Immunizations SOCIAL HISTORY Never Assessed REASON FOR VISIT Medication question PLAN OF CARE VITAL SIGNS MEDICATIONS No [...]
--- OUTSIDE RECORDS SUMMARY | 2017-12-18 19:46 | XMS REPORT ---
Author Author MCKENNA HEBERT Organization [facility] Address [address] [place] [address] Care Team Providers Care Management Trainer Name Role Phone MCKENNA HEBERT Unavailable PROBLEMS Type Condition ICD9-CM Code PGV27-DY Code Onset Dates Condition Status SNOMED Code Problem Amput below knee, unilat S88.119A Active 13964688 Problem Chronic congestive heart failure, unspecified congestive heart failure type I50.9 Active 59322483 Problem Intra-dialytic hypotension I95.3 Active 001482693 Problem Cellulitis of right lower extremity L03.115 Active 037846956 Problem Diabetes type 2, controlled E11.9 Active 34872164 Problem Renal failure N19 Active 44289148 Problem Neuropathy G62.9 Active 582760848 Problem Primary insomnia F51.01 Active 4623827 Problem 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 Active 1307514 Problem Chronic congestive heart failure, unspecified heart failure type I50.9 Active 05889934 Problem Seasonal allergic rhinitis due to other allergic trigger J30.89 Active 009750518 Problem Other chronic pain G89.29 Active 18011932 Problem Angina pectoris I20.9 Active 524939515 ALLERGIES Substance Reaction Event Type Date Status Fluarix Unknown Drug Allergy Sep, Active All Tape Unknown Non Drug Allergy Sep, Active ENCOUNTERS Encounter Location Date Diagnosis [facility] [id number] [place] [address] 42537- 4161 16 Oct, 2017 Diabetes type 2, controlled E11.9 ; Primary insomnia F51.01 and Bilateral headaches R51 [facility] [id number] [place] [address] 76442- 8919 Oct, [facility] [address] [address] 2[address] Sep, [facility] [id number] [place] [address] [id number] Sep, Dental examination Z01.20 and Dental caries K02.9 [facility] [address] [facility] [id number] [address]- 7110 Sep, [facility] [address] [facility] [id number] [place] [address] 67264- 9666 Sep, [facility] [address] [facility] [id number] [place] [address] 67639- 7184 Sep, Other chronic pain G89.29 and Pain in right knee M25.561 [facility] [address] [facility] [id number] [place] [address] 97041- 5861 Sep, [facility] [address] [facility] [id number] [place] [address] 46045- 5065 Aug, [facility] [id number] [place] [address] 90704- 4512 Aug, 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 [facility] [id number] [place] [address] 80156- 8521 15 Aug, 2017 [facility] [id number] [place] [address] 02153- 8265 11 Aug, 2017 Diabetes type 2, controlled E11.9 and Acute pain of right knee M25.561 [facility] [address], [place] [address]- 6316 09 Aug, 2017 [facility] [id number] [place] [address] 51553- 2635 July, [facility] [address] [id number] [address]- 9663 16 Jun, 2017 [facility] [address] [facility] [id number] [place] [address] 97719- 0489 13 Jun, 2017 [facility] [address] [id number] [address]- 0156 10 Jun, 2017 Diabetes type 2, controlled E11.9 [facility] [address], [place] [address]- 5990 Jun, [facility] [address], [place] [address]- 0553 May, [facility] [address] 0485 May, [facility] [address], [place] [address]- 4254 May, [facility] [address] [address]- 5789 May, Chronic congestive heart failure, unspecified congestive heart failure type I50.9 [facility] [address], [place] [address]- 0359 May, Diabetes type 2, controlled E11.9 ; BMI 50.0-59.9, adult Z68.43 ; Chronic congestive heart failure, unspecified heart failure type I50.9 ; Angina pectoris I20.9 ; Seasonal allergic rhinitis due to other allergic trigger J30.89 and Renal failure N19 [facility] [address] [id number] May, [facility] [address], [place] [address]- 8789 May, [facility] [address] [address]- 0626 May, [facility] [address], [place] [address]- 3544 May, [facility] [address], [place] [address]- 7235 May, [facility] [address], [place] [address]- 1822 Apr, BMI 50.0-59.9, adult Z68.43 [facility] [address], [place] [address]- 0569 Apr, BMI 50.0-59.9, adult Z68.43 ; Post-procedural fever R50.82 and Bronchitis J40 [facility] [id number] [place] [address] 78871- 4090 Apr, Chronic congestive heart failure, unspecified congestive heart failure type I50.9 [facility] [id number] [place] [address] 02605- 3411 Jan, [facility] [id number] [place] [address] 84455- 4226 Jan, Diabetes type 2, controlled E11.9 [facility] [id number] [place] [address] 87768- 4649 Jan, Neuropathy G62.9 [facility] [id number] [place] [address] 22156- 4350 Jan, [facility] [id number] [place] [address] 40194- 1232 Jan, [facility] [id number] [place] [address] 28809- 8096 Jan, [facility] [id number] [place] [address] 70116- 8297 Jan, [facility] [id number] [place] [address] 90211- 8704 Jan, [facility] [id number] [place] [address] 92195- 4186 Dec, [facility] [id number] [place] [address] 40057- 6247 Dec, [facility] [id number] [place] [address] 62314- 8138 Dec, Diabetes type 2, controlled E11.9 [facility] [id number] [place] [address] 95270- 4933 Dec, [facility] [id number] [place] [address] 32447- 1376 Dec, [facility] [address] [facility] [id number], [place] [address]- 1240 Dec, Chronic congestive heart failure, unspecified congestive heart failure type I50.9 [facility] [address] [facility] [id number], [place] [address]- 6585 Dec, [facility] [address] [facility] [id number][place] [address]- 3212 Dec, [facility] [address] [facility] [id number], [place] [address]- 5079 Nov, Chronic congestive heart failure, unspecified congestive heart failure type I50.9 [facility] [address] [facility] [id number][place] [address]- 4122 Nov, Chronic congestive heart failure, unspecified congestive heart failure type I50.9 [facility] [address], [place] [address]- 4637 Nov, [facility] [address] [facility] [id number][place] [address]- 1220 Oct, [facility] [address], [place] [address]- 0364 Oct, [facility] [address] [id number] [address]- 4379 Oct, Chronic congestive heart failure, unspecified congestive heart failure type I50.9 [facility] [address] [facility] [id number], [place] [address]- 8217 Oct, [facility] [address] [facility] [id number][place] [address]- 4048 Oct, Pneumonia of both lungs due to infectious organism, unspecified part of lung J18.9 [facility] [address] [facility] [id number], [place] [address]- 6924 Oct, [facility] [address] [id number] [address]- 6156 Oct, Diabetes type 2, controlled E11.9 [facility] [address], [place] [address]- 3726 Oct, Diabetes type 2, controlled E11.9 [facility] [address] [facility] [id number], [place] [address]- 6956 Sep, [facility] [id number] [place] [address] 06551- 2696 Sep, Neuropathy G62.9 [facility] [id number], [place] [address] 2546 Aug, Intra-dialytic hypotension I95.3 [facility] [id number] [place] [address] 54658- 8396 July, [facility] [id number] [place] [address] 48891- 7806 July, [facility] [id number] [place] [address] 53068- 7732 July, [facility] [id number] [place] [address] 23586- 4144 July, Amput below knee, unilat S88.119A [facility] [address], [place] [address]- 6266 May, [facility] [address], [place] [address]- 4683 May, Neuropathy G62.9 [facility] [address], [place] [address]- 6486 May, [facility] [address], [place] [address]- 4586 May, [facility] [address], [place] [address]- 1106 May, [facility] [address], [place] [address]- 2153 May, [facility] [address] [place] [address]- 0316 May, Neuropathy G62.9 [facility] [id number] [place] [address], [place] [address]- 0347 Apr, [facility] [id number] [place] [address]- 9791 Apr, [facility] [id number] [place] [address], [place] [address]- 5415 Apr, Diabetes type 2, controlled E11.9 and Renal failure N19 [facility] [id number] [place] [address], [place] [address] -4497 Apr, [facility] [id number] [place] [address], [place] [address]- 9040 Apr, [facility] [id number] [place] [address], [place] [address]- 4389 Mar, [facility] [address] [place] [address]- 7763 Mar, [facility] [id number] [place] [address], [place] [address]- 9763 Mar, [facility] [address] [address]- 6562 Mar, [facility] [id number] [place] [address], [place] [address]- 1921 Mar, [facility] [address] [place] [address]- 8574 Jan, Localized edema R60.0 [facility] [address] [address]- 2501 Jan, [facility] [address] [place] [address]- 4969 Jan, [facility] [id number] [place] [address], [place] [address]- 8818 Jan, [facility] [id number] [place] [address] 43780- 0414 Jan, [facility] [id number] [place] [address] 68548- 7413 Jan, [facility] [id number] [place] [address] 22139- 9011 Jan, [facility] [id number] [place] [address] 92307- 7340 Dec, Diabetes type 2, controlled E11.9 and Chronic nonintractable headache, unspecified headache type R51 [facility] [id number] [place] [address] 45595- 5118 Dec, [facility] [id number] [place] [address] 96460- 5856 Dec, [facility] [id number] [place] [address] 69417- 9908 Nov, [facility] [id number] [place] [address] 18574- 0475 Nov, [facility] [id number] [place] [address] 31723- 5552 Oct, [facility] [address] [place] [address] 60687- 6167 Oct, Migraine without status migrainosus, not intractable, unspecified migraine type G43.909 [facility] [id number] [place] [address] 60251- 3937 Oct, [facility] [id number] [place] [address] 75977- 9592 Sep, Amput below knee, unilat S88.119A and Neuropathy G62.9 [facility] [address], [place] [address]- 4882 Sep, [facility] [id number] [place] [address] 75190- 8859 Sep, [facility] [address] [id number] [place] [address]- 7838 Sep, [facility] [address] [id number] [place] [address]- 2814 Aug, [facility] [address] [id number] [place] [address]- 1109 Aug, [facility] [address] [facility] [id number] [place] [address]- 2969 Aug, Diabetes type 2, controlled E11.9 [facility] [address] [id number] [place] [address]- 8869 Aug, [facility] [address] [facility] [id number] [place] [address]- 2835 Jun, Diabetes type 2, controlled E11.9 and Neuropathy G62.9 [facility] [address] [id number] [place] [address]- 9671 Jun, [facility] [address] [id number] [place] [address]- 5350 Jun, [facility] [address] [facility] [id number] [place] [address]- 2646 Jun, [facility] [address] [id number] [place] [address]- 2783 Jun, [facility] [address] [id number] [address]- 1626 May, [facility] [address] [id number] [place] [address]- 0786 May, Diabetes type 2, controlled E11.9 [facility] [address] [id number] [place] 9211 May, [facility] [address] [id number] [place] [address]- 4922 May, [facility] [address], [place] [address]- 5337 26 May, 2015 [facility] [address], [place] [address]- 5980 May, [facility] [address], [place] [address]- 1370 May, [facility] [address] [place] [address] 87015- 9845 16 May, 2015 [facility] [address], [place] [address]- 3933 May, [facility] [id number] [place] [address] 61922- 1889 May, COPD (chronic obstructive pulmonary disease) J44.9 [facility] [address], [place] [address]- 6385 May, [facility] [address], [place] [address]- 7289 May, [facility] [address], [place] [address]- 9065 May, [facility] [address], [place] [address]- 5293 May, [facility] [address], [place] [address]- 2449 May, [facility] [address], [place] [address]- 1673 May, Renal failure N19 and Pneumonia, organism unspecified, unspecified laterality, unspecified part of lung J18.9 [facility] [address], [place] [address]- 9480 Apr, [facility] [address], [place] [address]- 0574 Apr, [facility] [address] [place] [address]- 1975 Apr, [facility] [address] [facility] [id number] [place] [address]- 5053 Apr, Diabetes mellitus 250.00 [facility] [address] [id number] [place] [address]- 6442 14 Apr, 2015 [facility] [address] [id number] [place] [address]- 9302 14 Apr, 2015 [facility] [address] [id number] [place] [address]- 1211 Apr, [facility] [id number] [place] [address], [place] [address]- 4493 Apr, [facility] [address] [id number] [address]- 5833 31 Mar, 2015 [facility] [id number] [place] [address], [place] [address]- 6244 Mar, [facility] [address] [id number] [place] [address]- 8792 Mar, [facility] [address] [address]- 2042 16 Mar, 2015 Renal failure N19 [facility] [address] [id number] [address]- 7137 14 Mar, 2015 [facility] [address] [id number] [address]- 1461 Mar, [facility] [address] [facility] [id number] [place] [address]- 3696 04 Mar, 2015 [facility] [address] [id number] [address]- 3819 24 Jan, 2015 [facility] [address] [facility] [id number] [place] [address]- 6376 18 Jan, 2015 [facility] [address] [id number] [place] [address]- 3362 Jan, [facility] [place] [facility] [address] [facility] [id number] [place] [address]- 4824 Jan, [facility] [place] [facility] [address] [facility] [id number] [place] [address], [place] [address]- 2132 Dec, [facility] [place] [facility] [address] [id number] [address]- 1764 Dec, [facility] [place] [facility] [address] [facility] [id number] [place] [address], [place] [address]- 7803 Dec, [facility] [place] [facility] [address] [facility] [id number] [place] [address], [place] [address]- 8059 Nov, [facility] [place] [facility] [address] [facility] [id number] [place] [address], [place] [address]- 7992 Nov, [facility] [place] [facility] [id number] [place] [address], [place] [address]- 2487 Nov, [facility] [place] [facility] [id number] [place] [address], [place] [address]- 5322 Oct, [facility] [place] [facility] [address] [address]- 3043 Oct, [facility] [place] [facility] [address], [place] [address]- 4970 Oct, Renal failure 586 and Obesity 278.00 [facility] [place] [facility] [address] [address]- 9853 Oct, [facility] [place] [facility] [address] [facility] [id number] [address]- 8131 Oct, [facility] [place] [facility] [address] [id number], [place] [address]- 0621 Oct, [facility] [place] [facility] [address] [facility] [id number], [place] [address]- 4808 Sep, [facility] [place] [facility] [address], [place] [address]- 2349 Sep, [facility] [place] [facility] [address] [id number] [place] [address]- 0936 Sep, Diabetes mellitus 250.00 and Congestive heart failure, unspecified 428.0 [facility] [address] [id number] [place] [address]- 9875 Aug, [facility] [address] [facility] [id number] [place] [address]- 4694 Aug, [facility] [address] [id number] [place] [address]- 0676 Aug, [facility] [address] [id number] [place] [address]- 5660 July, [facility] [address] [facility] [id number] [place] [address]- 6914 July, [facility] [address] [address]- 5316 July, Heart murmur, systolic 785.2 [facility] [address] [id number] [place] [address]- 2186 July, [facility] [address] [place] [address]- 9263 July, [facility] [address] [id number] [address]- 0659 Jun, [facility] [address] [id number] [place] [address]- 4267 Jun, [facility] [address] [id number] [place] [address] May, [facility] [address] [id number] [place] [address] May, [facility] [address] [facility] [id number] [place] [address] May, [facility] [address] [facility] [id number] [place] [address] May, [facility] [place] [facility] [address] [id number] [place] [address] 16 May, 2014 [facility] [place] [facility] [address] [id number] [place] [address] 16 May, 2014 [facility] [place] [facility] [address] [id number] [place] [address] 10 May, 2014 [facility] [place] [facility] [address] [id number] [place] [address] 10 May, 2014 [facility] [place] [facility] [address] [id number] [place] [address] 09 May, 2014 [facility] [place] [facility] [address] [id number] [place] [address] May, 2014 [facility] [place] [facility] [address] [facility] [id number] [place] [address] May, 2014 [facility] [place] [facility] [address] [facility] [id number] [place] [address] May, 2014 [facility] [place] [facility] [address] [facility] [id number] [place] [address] May, 2014 [facility] [place] [facility] [address] [facility] [id number] [place] [address]- [address] May, 2014 [facility] [place] [facility] [address] [facility] [id number] [place] [address] 18 May, 2014 [facility] [place] [facility] [address] [id number] [address] May, 2014 [facility] [place] [facility] [address] [facility] [id number] [place] [address] May, 2014 [facility] [place] [facility] [address] [facility] [id number] [place] [address] 18 May, 2014 [facility] [place] [facility] [address] [facility] [id number] [place] [address] 18 May, 2014 [facility] [place] [facility] [address] [facility] [id number] [place] [address] 18 May, 2014 [facility] [place] [facility] [address] [id number] [place] [address]96 May, 2014 [facility] [place] [facility] [address] [id number] [place] [address] May, 2014 [facility] [place] [facility] [address] [id number] [place] [address] May, 2014 [facility] [place] [facility] [address] [id number] [place] [address] May, 2014 [facility] [place] [facility] [address] [id number] [place] [address] May, 2014 [facility] [place] [facility] [address] [id number] [place] [address] May, 2014 [facility] [place] [facility] [address] [id number] [place] [address] Apr, [facility] [place] [facility] [address] [id number] [place] [address] Apr, [facility] [place] [facility] [address] [id number] [place] [address] 9035 Apr, [facility] [place] [facility] [address] [id number] [place] [address] 1396 Apr, [facility] [place] [facility] [address] [id number] [place] [address]- 6080 Apr, [facility] [place] [facility] [address] [id number] [place] [address]- 2415 Apr, [facility] [place] [facility] [address] [id number] [place] [address]- 9730 Apr, [facility] [place] [facility] [address] [id number] [place] [address]- 7301 Apr, [facility] [place] [facility] [address] [id number] [place] [address] 3749 Mar, [facility] [place] [facility] [address] [id number] [place] [address]- 4777 Mar, [facility] [place] [facility] [address] [id number] [place] [address]- 3806 Mar, [facility] [place] [facility] [address] [id number] [place] [address]- 8296 Mar, [facility] [place] [facility] [address] [id number] [place] [address]- 3568 Mar, [facility] [place] [facility] [address] [id number] [place] [address]- 3791 Mar, [facility] [place] [facility] [address] [id number] [place] [address]- 9351 Mar, [facility] [place] [facility] [address] [id number] [place] [address]- 1784 Mar, [facility] [place] [facility] [address] [id number] [place] [address]- 7041 Mar, [facility] [place] [facility] [address] [id number] [place] [address]- 4992 Mar, [facility] [place] [facility] [address] [id number] [place] [address]- 1375 Mar, [facility] [place] [facility] [address] [id number] [place] [address]- 2680 Mar, [facility] [place] [facility] [address] [id number] [place] [address]- 2666 Mar, [facility] [place] [facility] [address] [id number] [place] [address]- 1886 Mar, [facility] [place] [facility] [address] [id number] [place] [address]- 0706 Mar, [facility] [place] [facility] [address] [id number] [place] [address]- 1866 Mar, [facility] [place] [facility] [address] [id number] [place] [address]- 6557 Mar, [facility] [place] [facility] [address] [id number] [place] [address]- 7701 Mar, [facility] [place] [facility] [address] [id number] [place] [address]- 2942 Mar, [facility] [place] [facility] [address] [id number] [place] [address]- 4015 Mar, [facility] [place] [facility] [address] [id number] [place] [address]- 5838 Mar, [facility] [place] [facility] [address] [id number] [place] [address]- 2683 Mar, [facility] [place] [facility] [address] [id number] [place] [address]- 7480 Jan, [facility] [place] [facility] [address] [id number] [place] [address]- 6719 Jan, [facility] [place] [facility] [address] [id number] [place] [address] 1922 Jan, [facility] [place] [facility] [address] [id number] [place] [address]- 2561 Jan, [facility] [place] [facility] [address] [id number] [place] [address]- 6938 Jan, [facility] [place] [facility] [address] [id number] [place] [address]- 5307 Jan, [facility] [place] [facility] [address] [id number] [place] [address]- 2192 Jan, [facility] [place] [facility] [address] [id number] [place] [address]- 6043 Jan, [facility] [place] [facility] [address] [id number] [place] [address]- 0140 Jan, [facility] [place] [facility] [address] [id number] [place] [address]- 5602 Jan, [facility] [place] [facility] [address] [id number] [place] [address]- 7469 Jan, [facility] [place] [facility] [address] [id number] [place] [address]- 7187 Jan, [facility] [place] [facility] [address] [id number] [place] [address]- 5677 Jan, [facility] [place] [facility] [address] [id number] [place] [address]- 2800 Jan, [facility] [place] [facility] [address] [id number] [place] [address]- 0149 Jan, [facility] [place] [facility] [address] [id number] [place] [address]- 7927 Jan, [facility] [place] [facility] [address] [id number] [place] [address]- 1489 Jan, [facility] [place] [facility] [address] [id number] [place] [address]- 5005 Jan, [facility] [place] [facility] [address] [id number] [place] [address]- 9009 Jan, [facility] [place] [facility] [address] [id number] [place] [address]- 0954 Jan, [facility] [place] [facility] [address] [id number] [place] [address]- 5341 Dec, [facility] [place] [facility] [address] [id number], [place] [address]- 1020 Dec, [facility] [place] [facility] [address] [id number] [place] [address]- 0444 Dec, [facility] [place] [facility] [address] [id number] [place] [address]- 3302 Dec, [facility] [place] [facility] [address] [id number], [place] [address]- 1084 Dec, [facility] [place] [facility] [address] [id number] [address]- 5126 14 Dec, 2013 [facility] [place] [facility] [address] [id number] [place] [address]- 3032 14 Dec, 2013 [facility] [place] [facility] [address] [id number] [place] [address]- 7966 Dec, [facility] [place] [facility] [address] [id number] [place] [address]- 4568 Dec, [facility] [place] [facility] [address] [id number] [place] [address]- 5770 Dec, [facility] [place] [facility] [address] [id number] [place] [address]- 7454 Dec, [facility] [place] [facility] [address] [id number] [place] [address]- 5406 Dec, [facility] [place] [facility] [address] [id number] [place] [address]- 7913 Dec, [facility] [place] [facility] [address] [id number] [place] [address]- 0753 Dec, [facility] [place] [facility] [address] [id number] [place] [address]- 6311 Dec, [facility] [place] [facility] [address] [id number] [place] [address]- 1444 22 Nov, 2013 [facility] [place] [facility] [address] [id number][place] [address]- 2953 22 Nov, 2013 [facility] [place] [facility] [address] [id number], [place] [address]- 5046 19 Nov, 2013 [facility] [place] [facility] [address] [id number] [place] [address]- 6661 19 Nov, 2013 [facility] [place] [facility] [address] [id number] [place] [address]- 1949 13 Nov, 2013 [facility] [place] [facility] [address] [id number] [place] [address]- 8857 13 Nov, 2013 [facility] [place] [facility] [address] [id number] [place] [address]- 5942 10 Nov, 2013 [facility] [place] [facility] [address] [id number] [place] [address]- 3937 10 Nov, 2013 [facility] [place] [facility] [address] [id number] [place] [address]- 6046 08 Nov, 2013 [facility] [place] [facility] [address] [id number] [place] [address]- 3516 05 Nov, 2013 [facility] [place] [facility] [address] [id number] [place] [address]- 9308 Nov, 2013 [facility] [place] [facility] [address] [id number] [place] [address]- 4024 Nov, 2013 [facility] [place] [facility] [address] [id number] [place] [address]- 5967 Nov, 2013 [facility] [place] [facility] [address] [id number] [place] [address]- 2444 Oct, [facility] [place] [facility] [address] [id number] [place] [address]- 5009 Oct, [facility] [place] [facility] [address] [id number] [place] [address]- 6823 Oct, [facility] [place] [facility] [address] [id number] [place] [address]- 1356 Oct, [facility] [place] [facility] [address] [id number] [place] [address]- 9692 Oct, [facility] [place] [facility] [address] [id number] [place] [address]- 9275 Sep, [facility] [place] [facility] [address] [id number] [place] [address]- 5553 Sep, [facility] [place] [facility] [address] [id number] [place] [address]- 1960 Sep, [facility] [place] [facility] [address] [id number] [place] [address]- 4504 Sep, [facility] [place] [facility] [address] [id number] [place] [address]- 8744 Aug, [facility] [place] [facility] [address] [id number] [place] [address]- 2124 Aug, [facility] [place] [facility] [address] [id number] [place] [address]- 0515 Aug, [facility] [place] [facility] [address] [id number] [place] [address]- 2009 Aug, [facility] [place] [facility] [address] [id number] [place] [address]- 9955 Aug, [facility] [place] [facility] [address] [id number] [place] [address]- 2331 Aug, [facility] [place] [facility] [address] [id number] [place] [address]- 0344 Aug, [facility] [place] [facility] [address] [id number] [place] [address]- 7044 Aug, [facility] [place] [facility] [address] [id number] [place] [address]- 0412 Aug, [facility] [place] [facility] [address] [id number] [place] [address]- 6140 Aug, [facility] [place] [facility] [address] [id number] [place] [address]- 9158 Aug, [facility] [place] [facility] [address] [id number][place] [address]- 6745 Aug, [facility] [place] [facility] [address] [id number] [place] [address]- 1696 Aug, [facility] [place] [facility] [address] [id number] [place] [address]- 4781 Aug, [facility] [place] [facility] [address] [id number] [place] [address]- 3406 16 Aug, 2013 [facility] [place] [facility] [address] [id number] [place] [address]- 1194 16 Aug, 2013 [facility] [place] [facility] [address] [id number] [place] [address]- 9602 Aug, [facility] [place] [facility] [address] [id number] [place] [address]- 2891 Aug, [facility] [place] [facility] [address] [id number] [place] [address]- 1512 Aug, [facility] [place] [facility] [address] [id number] [place] [address]- 6075 Aug, [facility] [place] [facility] [address] [id number] [place] [address]- 1806 Aug, [facility] [place] [facility] [address] [id number] [place] [address]- 0068 Aug, [facility] [place] [facility] [address] [id number] [place] [address]- 0636 Aug, [facility] [place] [facility] [address] [id number] [place] [address]- 1358 Aug, [facility] [place] [facility] [address] [id number] [place] [address]- 8860 July, [facility] [place] [facility] [address] [id number] [place] [address]- 4077 July, [facility] [place] [facility] [address] [id number] [place] [address]- 8456 July, [facility] [place] [facility] [address] [id number] [place] [address]- 9800 July, [facility] [place] [facility] [address] [id number] [place] [address]- 1672 July, [facility] [place] [facility] [address] [id number] [place] [address]- 5908 July, [facility] [place] [facility] [address] [id number] [place] [address]- 0745 Jun, [facility] [place] [facility] [address] [id number] [place] [address]- 5793 Jun, [facility] [place] [facility] [address] [id number] [place] [address]- 3400 Jun, [facility] [place] [facility] [address] [id number] [place] [address]- 8165 Jun, [facility] [place] [facility] [address] [id number] [place] [address]- 0389 Jun, [facility] [place] [facility] [address] [id number] [place] [address]- 4937 Jun, [facility] [place] [facility] [address] [id number] [place] [address]- 8674 Jun, [facility] [place] [facility] [address] [id number] [place] [address]- 1050 Jun, [facility] [place] [facility] [address] [id number] [place] [address]- 5397 Jun, [facility] [place] [facility] [address] [id number] [place] [address]- 0983 Jun, [facility] [place] [facility] [address] [id number] [place] [address]- 3237 Jun, [facility] [place] [facility] [address] [id number] [place] [address]- 1504 Jun, [facility] [place] [facility] [address] [id number] [place] [address]- 5369 Jun, [facility] [place] [facility] [address] [id number] [place] [address]- 8999 Jun, [facility] [place] [facility] [address] [id number] [place] [address]- 5266 Jun, [facility] [place] [facility] [address] [id number] [place] [address]- 3469 May, [facility] [place] [facility] [address] [id number] [place] [address]- 8528 May, [facility] [place] [facility] [address] [id number] [place] [address]- 3592 May, [facility] [place] [facility] [address] [id number] [place] [address]- 1682 May, [facility] [place] [facility] [address] [id number] [place] [address]- 0048 May, [facility] [place] [facility] [address] [id number] [place] [address]- 4659 May, [facility] [place] [facility] [address] [id number] [place] [address]- 7763 May, [facility] [place] [facility] [address] [id number] [place] [address]- 2306 May, [facility] [place] [facility] [address] [id number] [place] [address]- 4783 May, [facility] [place] [facility] [address] [id number] [place] [address]- 9519 May, [facility] [place] [facility] [address] [id number] [place] [address]- 0814 May, [facility] [place] [facility] [address] [facility] [id number] [place] [address]- 9044 May, [facility] [place] [facility] [address] [id number] [place] [address]- 4371 May, [facility] [place] [facility] [address] [id number] [place] [address]- 9296 May, [facility] [place] [facility] [address] [id number] [place] [address]- 3333 May, [facility] [place] [facility] [address] [id number] [place] [address]- 6712 May, [facility] [place] [facility] [address] [id number] [place] [address]- 1403 May, [facility] [place] [facility] [address] [id number] [place] [address]- 5967 Apr, [facility] [place] [facility] [address] [id number] [place] [address]- 7623 Apr, [facility] [place] [facility] [address] [id number] [place] [address]- 2240 Apr, [facility] [place] [facility] [address] [id number] [place] [address]- 0101 Apr, [facility] [place] [facility] [address] [id number] [place] [address]- 8931 Apr, [facility] [place] [facility] [address] [id number] [place] [address]- 9048 Apr, [facility] [place] [facility] [address] [id number] [place] [address]- 0367 Apr, [facility] [place] [facility] [address] [id number] [place] [address]- 1457 Apr, [facility] [place] [facility] [address] [id number] [place] [address]- 6476 Apr, [facility] [place] [facility] [address] [id number] [place] [address]- 8606 Apr, [facility] [place] [facility] [address] [id number] [place] [address]- 6026 Apr, [facility] [place] [facility] [address] [id number] [place] [address]- 1423 Apr, [facility] [place] [facility] [address] [id number] [place] [address]- 8350 Apr, [facility] [place] [facility] [address] [id number] [place] [address]- 0795 Apr, [facility] [place] [facility] [address] [id number] [place] [address]- 7829 Apr, [facility] [place] [facility] [address] [id number] [place] [address]- 7719 Apr, [facility] [address] [id number] [place] [address]- 5180 30 Mar, 2013 [facility] [place] [facility] [address] [id number] [place] [address]- 3349 30 Mar, 2013 [facility] [place] [facility] [address] [id number] [place] 0724 30 Mar, 2013 [facility] [place] [facility] [address] [id number] [place] [address]- 7505 30 Mar, 2013 [facility] [place] [facility] [address] [id number] [place] [address]- 4001 18 Mar, 2013 [facility] [place] [facility] [address] [id number] [place] [address]- 0940 Mar, [facility] [place] [facility] [address] [id number] [place] [address]- 2127 Mar, [facility] [place] [facility] [address] [id number] [place] [address]- 4410 Mar, [facility] [place] [facility] [address] [id number] [place] [address]- 0111 17 Mar, 2013 [facility] [place] [facility] [address] [id number] [place] [address]- 8288 17 Mar, 2013 [facility] [place] [facility] [address] [id number], [place] [address]- 7794 05 Mar, 2013 [facility] [place] [facility] [address] [id number], [place] [address]- 9431 05 Mar, 2013 [facility] [place] [facility] [address] [id number] [place] [address]- 3304 Mar, [facility] [place] [facility] [address] [id number] [place] [address]- 5673 04 Mar, 2013 [facility] [place] [facility] [address] [id number] [place] [address]- 7764 Mar, [facility] [place] [facility] [address] [id number] [place] [address]- 6569 Mar, [facility] [address] [id number] [place] [address]- 1052 Mar, [facility] [place] [facility] [address] [id number] [place] [address]- 2093 Mar, [facility] [place] [facility] [address] [id number] [place] [address]- 0534 Jan, [facility] [place] [facility] [address] [id number] [place] [address]- 6913 Jan, [facility] [place] [facility] [address] [id number] [place] [address]- 1017 Jan, [facility] [place] [facility] [address] [id number] [place] [address]- 9427 Jan, [facility] [address] [id number] [place] [address]- 0101 Nov, [facility] [place] [facility] [address] [id number] [place] [address]- 9325 Nov, [facility] [place] [facility] [address] [id number] [place] [address]- 3084 Nov, [facility] [place] [facility] [address] [id number] [place] [address]- 5262 Nov, [facility] [place] [facility] [address] [id number] [place] [address]- 1852 Oct, [facility] [place] [facility] [address] [id number] [place] [address]- 3877 Oct, [facility] [place] [facility] [address] [id number] [place] [address] Oct, [facility] [place] [facility] [address] [id number] [place] [address] Oct, [facility] [place] [facility] [address] [id number] [place] [address] Sep, [facility] [place] [facility] [address] [id number] [place] [address] Sep, [facility] [place] [facility] [address] [id number] [place] [address] Sep, [facility] [place] [facility] [address] [id number] [place] [address] Sep, [facility] [place] [facility] [address] [id number] [place] [address] Sep, [facility] [place] [facility] [address] [id number] [place] [address] Sep, [facility] [place] [facility] [address] [id number] [place] [address] Sep, [facility] [place] [facility] [address] [id number] [place] [address] Sep, [facility] [place] [facility] [address] [id number] [place] [address] Sep, [facility] [place] [facility] [address] [id number] [place] [address] Aug, [facility] [place] [facility] [address] [id number] [place] [address] Aug, [facility] [place] [facility] [address] [id number] [place] [address] Aug, [facility] [place] [facility] [address] [id number] [place] [address] Aug, [facility] [place] [facility] [address] [id number] [place] [address] July, [facility] [place] [facility] [address] [id number] [place] [address] July, [facility] [place] [facility] [address] [id number] [place] [address] July, [facility] [place] [facility] [address] [id number], [place] [address] July, [facility] [address] [id number] [address] July, [facility] [id number] [place] [address] July, [facility] [id number] [place] [address] July, [facility] [id number] [address] Jun, [facility] [id number] [address] May, [facility] [id number] [address] May, [facility] [id number] [place] [address] May, [facility] [id number] [address] May, [facility] [id number] [place] [address] May, [facility] [id number] [place] [address] May, [facility] [id number] [address] May, [facility] [id number] [address] May, IMMUNIZATIONS No Known Immunizations SOCIAL HISTORY Never Assessed REASON FOR VISIT Diabetes WB-MA, PT claims her patches aren't working PLAN OF CARE Activity Details Future/Pending Procedure JOINT INJECTION-LARGE JOINT VITAL SIGNS Height 64 in 2017-10-10 Weight 297 lbs 2017-10-10 Temperature 98.1 degrees Fahrenheit 2017-10-10 Heart Rate 67 bpm 2017-10-10 Respiratory Rate 20 2017-10-10 Oximetry on room air:98 % 2017-10-10 BMI 50.97 kg/m2 2017-10-10 Blood pressure systolic 130 mmHg 2017-10-10 Blood pressure diastolic 72 mmHg 2017-10-10 MEDICATIONS Medication Instructions Dosage Frequency Start Date End Date Duration Status Oxygen 5 as directed July, Active Dkzqyeahym-HGVZ-Xerrjjoe 50-325-40 MG Orally 4 times a day 1 tablet as needed 6h May, 30 days Active Rosuvastatin Calcium 20 MG TAKE 1 TABLET BY MOUTH ONCE A DAY 30 Active Loratadine 10 MG TAKE ONE TABLET BY MOUTH DAILY AT BEDTIME 30 Active Lidoderm 5 % Externally Once a day 1 patch to skin remove after 12 hours 24h Aug, Active True Metrix Blood Glucose Test - USE TO TEST BLOOD GLUCOSE LEVELS TWICE DAILY 25 Active Crestor 20 mg Orally Once a day 1 tablet 24h Active PredniSONE 20 mg Orally Once a day 2 tablets 24h Apr, 05 days Not-Taking Wheelchair - .... 24h July, lifetime Active Guaifenesin 400 MG Orally 4 times a day 1 tablet as needed 6h Apr, Active Aspirin 81 mg take 1 tablet (81 mg) by oral route once daily May, Active Amlodipine Besylate 10 MG TAKE 1 TABLET BY MOUTH DAILY 30 Active Fluticasone Propionate 50 MCG/ACT Nasally Once a day 1 spray in each nostril 24h 30 days Active Humalog KwikPen 100 UNIT/ML Subcutaneous 3 times a day per sliding scale 8h May, 30 days Active Montelukast Sodium 10 MG TAKE ONE TABLET BY MOUTH ONCE DAILY IN THE EVENING 30 Active Mupirocin 2 % APPLY TO AFFECTED AREA TWICE DAILY 5 Active Renvela 800 MG 2tablet with breakfast and dinner and 1 tablet with lunch Not-Taking HydrOXYzine HCl 25 MG TAKE 1 TABLET BY MOUTH FOUR TIMES DAILY NEEDED FOR ANXIETY 22 Active [place] 10-325 MG Orally every 6 hrs take 1 tablet by oral route every 6 hours as needed for pain 6h May, 28 days Active Nystatin 710790 UNIT/GM Externally Twice a day 1 to affected area 12h Mar, Active Furosemide 40 MG TAKE ONE TABLET BY MOUTH DAILY 30 30 Active Glucagon Emergency 1 mg July, Not-Taking Isosorbide Mononitrate ER 30 mg TAKE 1 TABLET BY MOUTH DAILY 30 Active Metoprolol Tartrate 100 mg Orally Twice a day 1 tablet 12h 30 Active Lantus SoloStar 100 unit/ml Subcutaneous Once a day INJECT 36 UNITS SUBCUTANEOUSLY DAILY AT BEDTIME 24h Active Gabapentin 300 MG Orally Three times a day 1 capsule 8h 30 Active Singulair 10 MG take 1 tablet (10 mg) by oral route once daily in the evening Active Dialyvite Orally Once a day 1 tablet 24h Not-Taking RESULTS No Results PROCEDURES Procedure Date Ordered Result Body Site DRAIN/INJECT, JOINT/BURSA October 10, 2017 [facility] VISIT ESTABLISHED PATIENT October 10, 2017 INSTRUCTIONS MEDICATIONS ADMINISTERED No Known Medications [...]
--- OUTSIDE RECORDS SUMMARY | 2017-12-18 19:47 | XMS REPORT ---
Author Author MCKENNA HEBERT Organization [facility] Address [address] [place] [address] Care Team Providers Care Refinery Operator Name Role Phone MCKENNA HEBERT Unavailable PROBLEMS Type Condition ICD9-CM Code [id number] Code Onset Dates Condition Status SNOMED Code Problem Amput below knee, unilat S88.119A Active 50578729 Problem Chronic congestive heart failure, unspecified congestive heart failure type I50.9 Active 18641507 Problem Intra-dialytic hypotension I95.3 Active 672081197 Problem Cellulitis of right lower extremity L03.115 Active 565319135 Problem Diabetes type 2, controlled E11.9 Active 72082508 Problem Renal failure N19 Active 55064940 Problem Neuropathy G62.9 Active 848782564 Problem Primary insomnia F51.01 Active 2455473 Problem 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 Active 3468741 Problem Chronic congestive heart failure, unspecified heart failure type I50.9 Active 95573313 Problem Seasonal allergic rhinitis due to other allergic trigger J30.89 Active 861417367 Problem Other chronic pain G89.29 Active 05558949 Problem Angina pectoris I20.9 Active 894311364 ALLERGIES No Information ENCOUNTERS Encounter Location Date Diagnosis [place] [address] [place] [address] 18612- 0772 Oct, Diabetes type 2, controlled E11.9 ; Primary insomnia F51.01 and Bilateral headaches R51 [facility] [address], [place] [address] 9653 Oct, [place] [address] [place] [id number] [place] [address] 66513- 3587 Sep, [facility] [id number] [id number] Sep, Dental examination Z01.20 and Dental caries K02.9 [place] [address] [facility] [id number] [address] 4101 13 Sep, 2017 [facility] [address] [facility] [id number] [address]- 9008 Sep, [facility] [address] [facility] [id number], [place] [address]- 3254 Sep, Other chronic pain G89.29 and Pain in right knee M25.561 [facility] [address] [facility] [id number] [address]- 3321 05 Sep, 2017 [facility] [address] [facility] [id number] [address] 7[address] Aug, [facility] [address], [place] [address]- 9999 20 Aug, 2017 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 [facility] [address] [place] [address] 78700- 1777 15 Aug, 2017 [facility] [address] [address] 4598 11 Aug, 2017 Diabetes type 2, controlled E11.9 and Acute pain of right knee M25.561 [facility] [address] [address]- 0849 09 Aug, 2017 [facility] [address] [address]- 3888 July, [facility] [address], [place] [address]- 9841 16 Jun, 2017 [facility] [address] [facility] [id number] [place] [address]- 8184 13 Jun, 2017 [facility] [address] [address] 2003 10 Jun, 2017 Diabetes type 2, controlled E11.9 [facility] [address] [address]- 7980 Jun, [facility] [address], [place] [address]- 7195 May, [facility] [id number] [place] [address] 95919- 6672 May, [facility] [id number] [place] [address] 17183- 7565 May, [facility] [id number] [place] [address] 73790- 6305 May, Chronic congestive heart failure, unspecified congestive heart failure type I50.9 [facility] [id number] [place] [address] 44817- 9230 May, Diabetes type 2, controlled E11.9 ; BMI 50.0-59.9, adult Z68.43 ; Chronic congestive heart failure, unspecified heart failure type I50.9 ; Angina pectoris I20.9 ; Seasonal allergic rhinitis due to other allergic trigger J30.89 and Renal failure N19 [facility] [address] [place] [id number] May, [facility] [id number] [place] [address] 03374- 1098 May, [facility] [id number] [place] [address] 18115- 7929 May, [facility] [address] [place] [address] 13172- 4383 May, [facility] [id number] [place] [address] 08664- 7190 May, [facility] [address] [place] [address] 45341- 0547 Apr, BMI 50.0-59.9, adult Z68.43 [facility] [address], [place] [address]- 5609 Apr, BMI 50.0-59.9, adult Z68.43 ; Post-procedural fever R50.82 and Bronchitis J40 [facility] [address] [facility] [id number] [address]- 0611 Apr, Chronic congestive heart failure, unspecified congestive heart failure type I50.9 [facility] [address] [facility] [id number] [place] [address]- 7325 Jan, [facility] [id number] [place] [address] 08326- 4702 Jan, Diabetes type 2, controlled E11.9 [facility] [address] [facility] [id number] [place] [address], [place] [address]- 3832 Jan, Neuropathy G62.9 [facility] [id number] [place] [address], [place] [address]- 4610 Jan, [facility] [id number] [place] [address] 48425- 8430 Jan, [facility] [id number] [place] [address] 99048- 1415 Jan, [facility] [address] [place] [address] 21513- 2702 Jan, [facility] [id number] [place] [address] 14027- 5655 Jan, [facility] [address], [place] [address]- 1692 Dec, [facility] [address] [address]- 5572 Dec, [facility] [address], [place] [address]- 1066 Dec, Diabetes type 2, controlled E11.9 [facility] [address], [place] [address]- 4998 Dec, [facility] [address] [place] [id number] [address]- 0441 Dec, [facility] [address] [id number] [address]- 1783 Dec, Chronic congestive heart failure, unspecified congestive heart failure type I50.9 [facility] [address] [address]- 3849 Dec, [facility] [address], [place] [address]- 7297 Dec, [facility] [id number] [place] [address] 47840- 0036 Nov, Chronic congestive heart failure, unspecified congestive heart failure type I50.9 [facility] [id number] [place] [address] 20790- 3095 Nov, Chronic congestive heart failure, unspecified congestive heart failure type I50.9 [facility] [address] [address]- 9461 Nov, [facility] [id number] [place] [address] 22787- 2871 Oct, [facility] [address] [place] [address] 60346- 7219 Oct, [facility] [address] [place] [address] 26222- 9008 Oct, Chronic congestive heart failure, unspecified congestive heart failure type I50.9 [facility] [address] [address]- 4797 Oct, [facility] [address] [address]- 1132 Oct, Pneumonia of both lungs due to infectious organism, unspecified part of lung J18.9 [facility] [address] [address]- 2939 Oct, [facility] [address] [address]- 9762 Oct, Diabetes type 2, controlled E11.9 [facility] [address] [id number] [address]- 9917 Oct, Diabetes type 2, controlled E11.9 [facility] [address] [place] [id number] [place] [address] 20652- 4506 Sep, [facility] [address] [place] [id number] [place] [address] 86185 2546 Sep, Neuropathy G62.9 [facility] [address] [id number] [place] [address] 44515 2546 Aug, Intra-dialytic hypotension I95.3 [facility] [address] [id number] [place] [address], [place] [address] 2546 July, [facility] [id number] [place] [address] 61794- 0576 July, [facility] [address] [id number] [place] [address] 00349- 2696 July, [facility] [id number] [place] [address] 42492- 1118 July, Amput below knee, unilat S88.119A [facility] [id number] [place] [address] 98320- 3666 May, [facility] [address] [place] [address] 42352- 6714 May, Neuropathy G62.9 [facility] [id number], [place] [address] 2546 May, [facility] [address], [place] [address] 2546 May, [facility] [address] [place] [id number] [place] [address] 57828 2546 May, [facility] [address], [place] [address] 2546 May, [facility] [address] [id number] [place] [address] 64186- 8771 May, Neuropathy G62.9 [facility] [address] [facility] [id number] [place] [address]- 0986 Apr, [facility] [address] [place] [address]- 1092 Apr, [facility] [id number] [place] [address]- 2417 Apr, Diabetes type 2, controlled E11.9 and Renal failure N19 [facility] [address] [facility] [id number] [place] [address] -8114 Apr, [facility] [id number] [place] [address], [place] [address]- 9413 Apr, [facility] [id number] [place] [address], [place] [address]- 1061 Mar, [facility] [id number] [place] [address], [place] [address]- 2716 Mar, [facility] [address] [place] [address]- 3272 Mar, [facility] [id number] [place] [address], [place] [address]- 2734 Mar, [facility] [address] [place] [address]- 8840 Mar, [facility] [address] [place] [address]- 5485 Jan, Localized edema R60.0 [facility] [address] [place] [id number] [place] [address]- 1451 Jan, [facility] [address] [id number] [place] [address]- 9391 Jan, [facility] [address] [place] [address]- 7775 Jan, [facility] [address] [address]- 6252 Jan, [facility] [address], [place] [address]- 3592 Jan, [facility] [address] [place] [address] 74136- 2795 Jan, [facility] [id number] [place] [address] 15548- 0517 Dec, Diabetes type 2, controlled E11.9 and Chronic nonintractable headache, unspecified headache type R51 [facility] [address] [place] [address] 14115- 3624 Dec, [facility] [id number] [place] [address] 92618- 9950 Dec, [facility] [id number] [place] [address] 89660- 2553 Nov, [facility] [id number] [place] [address] 20370- 8480 Nov, [facility] [address] [place] [address] 03333- 6137 Oct, [facility] [id number] [place] [address] 15134- 9241 Oct, Migraine without status migrainosus, not intractable, unspecified migraine type G43.909 [facility] [address] [place] [address] 90848- 0772 Oct, [facility] [address] [place] [address] 09851- 9398 Sep, Amput below knee, unilat S88.119A and Neuropathy G62.9 [facility] [id number] [place] [address] 71320- 2905 Sep, [facility] [address] [place] [address] 00302- 1510 Sep, [facility] [address] [place] [id number] [place] [address]- 5412 Sep, [facility] [address] [facility] [id number] [place] [address]- 7144 Aug, [facility] [address] [facility] [id number] [place] 7807 Aug, [facility] [address] [facility] [id number]- 4434 Aug, Diabetes type 2, controlled E11.9 [facility] [address] [facility] [id number] [place] [address]- 7977 Aug, [facility] [address] [facility] [id number] [place] [address]- 6469 Jun, Diabetes type 2, controlled E11.9 and Neuropathy G62.9 [facility] [address] [place] [address]- 6737 Jun, [facility] [address] [facility] [id number] [place] [address]- 1454 Jun, [facility] [address] [place] [address]- 4681 Jun, [facility] [address] [place] [address]- 9643 Jun, [facility] [id number] [place] [address]- 2806 May, [facility] [address] [facility] [id number] [address]- 0315 May, Diabetes type 2, controlled E11.9 [facility] [id number] [place] [address]- 4892 May, [facility] [address] [facility] [id number] [place] [address]- 0795 May, [facility] [id number] 2261 May, [facility] [address] [address]- 4002 May, [facility] [address] [place] [address]- 7526 May, [facility] [address] [address]- 5826 May, [facility] [address] [place] [address], [place] [address] 2546 May, [facility] [address] [address]- 7438 May, COPD (chronic obstructive pulmonary disease) J44.9 [facility] [address] [address]- 2307 May, [facility] [address], [place] [address]- 4096 May, [facility] [address], [place] [address]- 7222 May, [facility] [address], [place] [address]- 5430 May, [facility] [address] [address]- 9520 May, [facility] [address], [place] [address]- 4616 May, Renal failure N19 and Pneumonia, organism unspecified, unspecified laterality, unspecified part of lung J18.9 [facility] [address], [place] [address]- 4977 Apr, [facility] [address], [place] [address]- 5825 Apr, [facility] [address] [address]- 4012 Apr, [facility] [id number] [place] [address]- 5807 Apr, Diabetes mellitus 250.00 [facility] [address] [id number] [place] [address]- 6620 14 Apr, 2015 [facility] [address] [id number] [place] [address]- 5282 14 Apr, 2015 [facility] [address] [id number] [place] [address], [place] [address]- 2325 Apr, [facility] [address] [id number] [place] [address]- 1242 Apr, [facility] [address] [id number] [place] [address], [place] [address]- 6694 31 Mar, 2015 [facility] [address] [place] [address]- 2994 Mar, [facility] [address] [place] [address]- 3735 Mar, [facility] [id number] [place] [address]- 2019 16 Mar, 2015 Renal failure N19 [facility] [address] [place] [address]- 0394 14 Mar, 2015 [facility] [id number] [place] [address]- 2816 Mar, [facility] [address] [facility] [id number] [place] [address]- 5259 04 Mar, 2015 [facility] [address] [facility] [id number] [place] [address]- 6234 24 Jan, 2015 [facility] [address] [facility] [id number] [place] [address]- 9308 18 Jan, 2015 [facility] [address] [facility] [id number] [place] 7439 17 Jan, 2015 [facility] [address] [address]- 3441 Jan, [facility] [address] [facility] [id number] [place] [address]- 0574 Dec, [facility] [place] [facility] [address] [facility] [id number] [address]- 9180 Dec, [facility] [place] [facility] [address] [place] [address]- 4193 Dec, [facility] [address] [facility] [id number] [place] [address] 34106- 0487 Nov, [facility] [address] [facility] [id number] [place] [address], [place] [address]- 0353 Nov, [facility] [id number] [place] [address], [place] [address]- 2418 Nov, [facility] [address] [place] [address] 79478- 9856 Oct, [facility] [address] [address]- 4699 Oct, [facility] [address] [place] [address] 42709- 6039 Oct, Renal failure 586 and Obesity 278.00 [facility] [id number] [address]- 8436 Oct, [facility] [place] [facility] [address], [place] [address]- 8132 Oct, [facility] [place] [facility] [address] [facility] [id number][place] [address]- 4836 Oct, [facility] [place] [facility] [address], [place] [address]- 7634 Sep, [facility] [place] [facility] [address] [facility] [id number][place] [address]- 0427 Sep, [facility] [address], [place] [address]- 6772 Sep, Diabetes mellitus 250.00 and Congestive heart failure, unspecified 428.0 [facility] [address] [id number] [place] [address]- 2150 Aug, [facility] [address] [facility] [id number] [address]- 1276 Aug, [facility] [address] [facility] [id number] [place] [address]- 4345 Aug, [facility] [address] [facility] [id number][place] [address]- 6057 July, [facility] [address] [id number] [place] [address]- 6952 July, [facility] [address] [place] [address]- 2131 July, Heart murmur, systolic 785.2 [facility] [address] [place] [address]- 4242 July, [facility] [id number] [address]- 7327 July, [facility] [address] [place] [address] Jun, [facility] [id number] [address] Jun, [facility] [address] [id number] [address] May, [facility] [address] [id number] [address] May, [facility] [id number] [place] [address] May, [facility] [address] [facility] [id number] [address] May, [facility] [address] [id number] [address] 16 May, 2014 [facility] [place] [facility] [address] [id number] [place] [address] 16 May, 2014 [facility] [place] [facility] [address] [facility] [id number] [place] [address] May, 2014 [facility] [place] [facility] [address] [facility] [id number] [place] [address] 10 May, 2014 [facility] [place] [facility] [address] [facility] [id number] [place] [address] May, [facility] [place] [facility] [address] [facility] [id number] [place] [address] May, [facility] [place] [facility] [address] [facility] [id number] [place] [address] May, 2014 [facility] [place] [facility] [address] [facility] [id number] [place] [address] May, 2014 [facility] [place] [facility] [address] [facility] [id number] [place] [address] May, 2014 [facility] [place] [facility] [address] [facility] [id number] [place] [address] May, 2014 [facility] [place] [facility] [address] [facility] [id number] [place] [address]- [address] May, 2014 [facility] [place] [facility] [address] [facility] [id number] [place] [address] May, 2014 [facility] [place] [facility] [address] [facility] [id number] [address] May, 2014 [facility] [place] [facility] [address] [facility] [id number] [place] [address] May, 2014 [facility] [place] [facility] [address] [facility] [id number] [address] May, 2014 [facility] [place] [facility] [address] [facility] [id number][place] [address] May2014 [facility] [place] [facility] [address] [id number] [place] [address] 7495 May, 2014 [facility] [place] [facility] [address] [id number] [place] [address]- 7948 May, 2014 [facility] [place] [facility] [address] [id number] [place] [address]- 6957 May, 2014 [facility] [place] [facility] [address] [id number] [place] [address]- 3374 May, 2014 [facility] [place] [facility] [address] [id number] [place] [address]- 8496 May, [facility] [place] [facility] [address] [id number] [place] [address]- 9456 May, [facility] [place] [facility] [address] [id number] [place] [address]- 5831 Apr, [facility] [place] [facility] [address] [id number] [place] [address]- 8635 Apr, [facility] [place] [facility] [address] [id number] [place] [address]- 3707 Apr, [facility] [place] [facility] [address] [id number] [place] [address]- 6143 Apr, [facility] [place] [facility] [address] [id number], [place] [address]- 3320 Apr, [facility] [place] [facility] [address] [id number][place] [address]- 1213 Apr, [facility] [place] [facility] [address] [id number] [place] [address]- 9900 Apr, [facility] [place] [facility] [address] [id number], [place] [address]- 2416 Apr, [facility] [place] [facility] [address] [id number], [place] [address]- 76[address] Mar, [facility] [place] [facility] [address] [id number], [place] [address]- 7906 Mar, [facility] [place] [facility] [address] [id number] [place] [address]- 7916 Mar, [facility] [place] [facility] [address] [id number] [place] [address]- 9136 Mar, [facility] [place] [facility] [address] [id number] [place] [address]- 4946 Mar, [facility] [place] [facility] [address] [id number] [place] [address]- 4972 Mar, [facility] [place] [facility] [address] [id number] [place] [address]- 3283 Mar, [facility] [place] [facility] [address] [id number] [place] [address]- 3072 Mar, [facility] [place] [facility] [address] [id number] [place] [address]- 3162 Mar, [facility] [place] [facility] [address] [id number] [place] [address]- 8787 Mar, [facility] [place] [facility] [address] [id number] [place] [address]- 9189 Mar, [facility] [place] [facility] [address] [id number] [place] [address]- 5129 Mar, [facility] [place] [facility] [address] [id number] [place] [address]- 6700 Mar, [facility] [place] [facility] [address] [id number] [place] [address]- 0569 Mar, [facility] [place] [facility] [address] [id number] [place] [address]- 8936 Mar, [facility] [place] [facility] [address] [id number] [place] [address]- 2118 10 Mar, 2014 [facility] [place] [facility] [address] [id number] [place] [address]- 0982 Mar, [facility] [place] [facility] [address] [id number] [place] [address]- 5229 Mar, [facility] [place] [facility] [address] [id number] [place] [address]- 0482 Mar, [facility] [place] [facility] [address] [id number] [place] Mar, [facility] [place] [facility] [address] [id number] [place] [address]- 8794 Mar, [facility] [place] [facility] [address] [id number] [place] [address]- 4399 Mar, [facility] [place] [facility] [address] [id number] [place] [address]- 1188 Jan, [facility] [place] [facility] [address] [id number] [place] [address]- 5872 Jan, [facility] [place] [facility] [address] [id number] [place] [address]- 1198 Jan, [facility] [place] [facility] [address] [id number] [place] [address]- 9375 Jan, [facility] [place] [facility] [address] [id number] [place] [address]- 4929 Jan, [facility] [place] [facility] [address] [id number] [place] [address]- 5073 Jan, [facility] [place] [facility] [address] [id number] [place] [address]- 7310 Jan, [facility] [place] [facility] [address] [id number] [place] [address]- 7985 Jan, [facility] [place] [facility] [address] [id number] [place] [address]- 5596 Jan, [facility] [place] [facility] [address] [id number] [place] [address]- 2079 Jan, [facility] [place] [facility] [address] [id number] [place] [address]- 8341 Jan, [facility] [place] [facility] [address] [id number] [place] [address]- 8059 Jan, [facility] [place] [facility] [address] [id number] [place] [address]- 8943 Jan, [facility] [place] [facility] [address] [id number] [place] [address]- 6114 Jan, [facility] [place] [facility] [address] [id number] [place] [address]- 1941 Jan, [facility] [place] [facility] [address] [id number] [place] [address]- 1877 Jan, [facility] [place] [facility] [address] [id number] [place] [address]- 8990 Jan, [facility] [place] [facility] [address] [id number] [place] [address]- 7345 Jan, [facility] [place] [facility] [address] [id number] [place] [address]- 5443 Jan, [facility] [place] [facility] [address] [id number] [place] [address]- 7660 Jan, [facility] [place] [facility] [address] [id number] [place] [address]- 4586 Dec, [facility] [place] [facility] [address] [id number], [place] [address]- 0700 Dec, [facility] [place] [facility] [address] [id number], [place] [address]- 6782 Dec, [facility] [place] [facility] [address] [id number] [place] [address]- 4301 Dec, [facility] [place] [facility] [address] [id number], [place] [address]- 8440 Dec, [facility] [place] [facility] [address] [id number], [place] [address]- 8782 Dec, [facility] [place] [facility] [address] [id number] [place] [address]- 4664 14 Dec, 2013 [facility] [place] [facility] [address] [id number] [place] [address]- 2665 10 Dec, 2013 [facility] [place] [facility] [address] [id number] [place] [address]- 5272 10 Dec, 2013 [facility] [place] [facility] [address] [id number] [place] [address]- 8396 08 Dec, 2013 [facility] [place] [facility] [address] [id number] [place] [address]- 3763 08 Dec, 2013 [facility] [place] [facility] [address] [id number] [place] [address]- 1034 Dec, [facility] [place] [facility] [address] [id number] [place] [address]- 0658 Dec, [facility] [place] [facility] [address] [id number] [place] [address]- 1112 Dec, [facility] [place] [facility] [address] [id number] [place] [address]- 8160 Dec, [facility] [place] [facility] [address] [id number] [place] [address]- 2784 22 Nov, 2013 [facility] [place] [facility] [address] [id number] [place] [address]- 4708 22 Nov, 2013 [facility] [place] [facility] [address] [id number] [place] [address]- 9731 19 Nov, 2013 [facility] [place] [facility] [address] [id number] [place] [address]- 2548 19 Sep, 2013 [facility] [place] [facility] [address] [id number] [place] [address] 2543 13 Nov, 2013 [facility] [place] [facility] [address] [id number] [place] [address]- 2547 13 Nov, 2013 [facility] [place] [facility] [address] [id number] [place] [address]- 9181 Nov, 2013 [facility] [place] [facility] [address] [id number] [place] [address]- 2306 Nov, 2013 [facility] [place] [facility] [address] [id number] [place] [address]- 4843 Nov, 2013 [facility] [place] [facility] [address] [id number] [place] [address]- 8958 Nov, 2013 [facility] [place] [facility] [address] [id number] [place] [address]- 5408 Nov, 2013 [facility] [place] [facility] [address] [id number] [place] [address]- 2311 Nov, [facility] [place] [facility] [address] [id number] [place] [address]- 4561 Nov, [facility] [place] [facility] [address] [id number] [place] [address]- 7465 Oct, [facility] [place] [facility] [address] [id number] [place] [address]- 6029 Oct, [facility] [place] [facility] [address] [id number] [place] [address]- 6430 Oct, [facility] [place] [facility] [address] [id number] [place] [address]- 9978 Oct, [facility] [place] [facility] [address] [id number] [place] [address]- 9444 Oct, [facility] [place] [facility] [address] [id number] [place] [address]- 4364 Sep, [facility] [place] [facility] [address] [id number] [place] [address]- 6598 Sep, [facility] [place] [facility] [address] [id number] [place] [address]- 8549 Sep, [facility] [place] [facility] [address] [id number] [place] [address]- 0043 Sep, [facility] [place] [facility] [address] [id number] [place] [address]- 2980 Aug, [facility] [place] [facility] [address] [id number] [place] [address]- 4905 Aug, [facility] [place] [facility] [address] [id number] [place] [address]- 9601 Aug, [facility] [place] [facility] [address] [id number] [place] [address]- 0538 Aug, [facility] [place] [facility] [address] [id number] [place] [address]- 0834 Aug, [facility] [place] [facility] [address] [id number] [place] [address]- 1182 Aug, [facility] [place] [facility] [address] [id number] [place] [address]- 3104 Aug, [facility] [place] [facility] [address] [id number] [place] [address]- 8022 Aug, [facility] [place] [facility] [address] [id number] [place] [address]- 7409 Aug, [facility] [place] [facility] [address] [id number] [place] [address]- 9134 Aug, [facility] [place] [facility] [address] [id number] [place] [address]- 6139 Aug, [facility] [place] [facility] [address] [id number] [place] [address]- 4742 Aug, [facility] [place] [facility] [address] [id number] [place] [address]- 1215 Aug, [facility] [place] [facility] [address] [id number] [place] [address]- 0407 Aug, [facility] [place] [facility] [address] [id number] [place] [address]- 8609 Aug, [facility] [place] [facility] [address] [id number] [place] [address]- 2560 Aug, [facility] [place] [facility] [address] [id number] [place] [address]- 6812 Aug, [facility] [place] [facility] [address] [id number] [place] [address]- 2938 Aug, [facility] [place] [facility] [address] [id number] [place] [address]- 1321 Aug, [facility] [place] [facility] [address] [id number] [place] [address]- 9390 Aug, [facility] [place] [facility] [address] [id number] [place] [address]- 3489 Aug, [facility] [place] [facility] [address] [id number] [place] [address]- 6394 Aug, [facility] [place] [facility] [address] [id number] [place] [address]- 1045 Aug, [facility] [place] [facility] [address] [id number] [place] [address]- 2711 Aug, [facility] [place] [facility] [address] [id number] [place] [address]- 0181 July, [facility] [place] [facility] [address] [id number] [place] [address]- 5544 July, [facility] [place] [facility] [address] [id number] [place] [address]- 9158 July, [facility] [place] [facility] [address] [id number] [place] [address]- 4343 July, [facility] [place] [facility] [address] [id number] [place] [address]- 8234 July, [facility] [place] [facility] [address] [id number] [place] [address]- 4601 July, [facility] [place] [facility] [address] [id number] [place] [address]- 1455 Jun, [facility] [place] [facility] [address] [id number] [place] [address]- 3996 Jun, [facility] [place] [facility] [address] [id number] [place] [address]- 0888 Jun, [facility] [place] [facility] [address] [id number] [place] [address]- 3418 Jun, [facility] [place] [facility] [address] [id number] [place] [address]- 2401 Jun, [facility] [place] [facility] [address] [id number] [place] [address]- 0458 Jun, [facility] [place] [facility] [address] [id number] [place] [address]- 4097 Jun, [facility] [place] [facility] [address] [id number] [place] [address]- 7742 Jun, [facility] [place] [facility] [address] [id number] [place] [address]- 1373 Jun, [facility] [place] [facility] [address] [id number] [place] [address]- 0778 Jun, [facility] [place] [facility] [address] [id number] [place] [address]- 0264 Jun, [facility] [place] [facility] [address] [id number] [place] [address]- 1077 Jun, [facility] [place] [facility] [address] [id number] [place] [address]- 4379 Jun, [facility] [place] [facility] [address] [id number], [place] [address]- 9557 Jun, [facility] [place] [facility] [address] [id number] [place] [address]- 4702 Jun, [facility] [place] [facility] [address] [id number] [place] [address]- 9687 May, [facility] [place] [facility] [address] [id number] [place] [address]- 2577 May, [facility] [place] [facility] [address] [id number], [place] [address]- 9320 May, [facility] [place] [facility] [address] [id number] [place] [address]- 0313 May, [facility] [place] [facility] [address] [id number] [place] [address]- 5257 May, [facility] [place] [facility] [address] [facility] [id number] [place] [address]- 0052 May, [facility] [place] [facility] [address] [facility] [id number] [place] [address]- 6734 May, [facility] [place] [facility] [address] [id number] [place] [address]- 6505 May, [facility] [place] [facility] [address] [facility] [id number] [place] [address]- 2165 May, [facility] [place] [facility] [address] [id number] [place] [address]- 1260 May, [facility] [place] [facility] [address] [facility] [id number] [place] [address]- 6250 May, [facility] [place] [facility] [address] [facility] [id number] [place] [address]- 5796 May, [facility] [place] [facility] [address] [facility] [id number] [place] [address]- 1079 May, [facility] [place] [facility] [address] [facility] [id number] [place] [address]- 7837 May, [facility] [place] [facility] [address] [facility] [id number], [place] [address]- 1177 May, [facility] [place] [facility] [address] [id number] [place] [address]- 1086 May, [facility] [place] [facility] [address] [facility] [id number], [place] [address]- 4028 May, [facility] [place] [facility] [address] [facility] [id number], [place] [address]- 2227 Apr, [facility] [place] [facility] [address] [id number] [place] [address]- 0738 Apr, [facility] [place] [facility] [address] [id number] [place] [address]- 0396 Apr, [facility] [place] [facility] [address] [id number] [place] [address]- 7028 Apr, [facility] [place] [facility] [address] [id number] [place] [address]- 1183 Apr, [facility] [address] [id number] [place] [address]- 6883 Apr, [facility] [place] [facility] [address] [id number] [place] [address]- 4525 Apr, [facility] [address] [id number] [place] [address]- 5032 Apr, [facility] [address] [id number] [place] [address]- 2704 Apr, [facility] [place] [facility] [address] [id number] [place] [address]- 7686 Apr, [facility] [place] [facility] [address] [id number] [place] [address]- 5352 Apr, [facility] [place] [facility] [address] [id number] [place] [address]- 5149 Apr, [facility] [place] [facility] [address] [id number] [place] [address]- 7903 Apr, [facility] [place] [facility] [address] [id number] [place] [address]- 7627 Apr, [facility] [place] [facility] [address] [id number] [place] [address]- 8619 Apr, [facility] [place] [facility] [address] [id number] [place] [address]- 7915 Apr, [facility] [place] [facility] [address] [id number] [place] [address]- 9737 30 Mar, 2012 [facility] [address] [id number] [place] [address]- 5466 30 Mar, 2012 [facility] [place] [facility] [address] [id number] [place] [address]556 30 Mar, 2013 [facility] [place] [facility] [address] [id number] [place] [address]- 4571 30 Mar, 2013 [facility] [place] [facility] [address] [id number] [place] [address]- 9148 18 Mar, 2013 [facility] [place] [facility] [address] [id number] [place] [address]- 2341 18 Mar, 2013 [facility] [place] [facility] [address] [id number] [place] [address]- 5269 18 Mar, 2013 [facility] [address] [id number] [place] [address]- 1111 18 Mar, 2013 [facility] [place] [facility] [address] [id number] [place] [address]- 8327 17 Mar, 2013 [facility] [place] [facility] [address] [id number] [place] [address]- 0758 17 Mar, 2013 [facility] [place] [facility] [address] [id number] [place] [address]- 5376 05 Mar, 2013 [facility] [place] [facility] [address] [id number], [place] [address]- 2028 05 Mar, 2013 [facility] [place] [facility] [address] [id number], [place] [address]- 1730 04 Mar, 2013 [facility] [place] [facility] [address] [id number] [place] [address] Mar, [facility] [place] [facility] [address] [id number] [place] [address] 04 Mar, 2013 [facility] [place] [facility] [address] [id number] [place] [address] 04 Mar, 2013 [facility] [place] [facility] [address] [id number] [place] [address] Mar, [facility] [address] [id number] [place] [address] Mar, [facility] [place] [facility] [address] [id number] [place] [address] Jan, [facility] [address] [id number] [place] [address] Jan, [facility] [place] [facility] [address] [id number] [place] [address] Jan, [facility] [address] [id number] [place] [address] Jan, [facility] [address] [id number] [place] [address] Nov, [facility] [place] [facility] [address] [id number] [place] [address] Nov, [facility] [address] [id number] [place] [address] Nov, [facility] [place] [facility] [address] [id number] [place] [address] Nov, [facility] [address] [id number] [place] [address] Oct, [facility] [place] [facility] [address] [id number] [place] [address] Oct, [facility] [place] [facility] [address] [id number] [place] [address] Oct, [facility] [place] [facility] [address] [id number] [place] [address] Oct, [facility] [place] [facility] [address] [id number] [place] [address] Sep, [facility] [place] [facility] [address] [id number] [place] [address] Sep, [facility] [address] [id number] [place] [address] Sep, [facility] [place] [facility] [address] [id number] [place] [address] Sep, [facility] [place] [facility] [address] [id number] [place] [address] Sep, [facility] [place] [facility] [address] [id number] [place] [address] Sep, [facility] [place] [facility] [address] [id number] [place] [address] Sep, [facility] [place] [facility] [address] [id number] [place] [address] Sep, [facility] [place] [facility] [address] [id number] [place] [address] Sep, [facility] [place] [facility] [address] [id number] [place] [address] Aug, [facility] [place] [facility] [address] [id number] [place] [address] Aug, [facility] [place] [facility] [address] [id number] [place] [address] Aug, [facility] [place] [facility] [address] [id number] [place] [address]27 Aug, [facility] [place] [facility] [address] [id number] [place] [address] July, [facility] [place] [facility] [address] [id number] [place] [address] July, [facility] [place] [facility] [address] [id number] [place] [address] July, [facility] [place] [facility] [address] [id number] [place] [address] July, [facility] [place] [facility] [address] [id number], [place] [address] July, [facility] [address] [address] July, [facility] [id number], [place] [address] July, [facility] [address], [place] [address] Jun, [facility] [address], [place] [address] May, [facility] [address], [place] [address] May, [facility] [address] [address] May, [facility] [address], [place] [address] May, [facility] [address] [address] May, [facility] [address] [address] May, [facility] [address] [id number] [address] May, [facility] [address] [id number] [address] May, IMMUNIZATIONS No Known Immunizations SOCIAL HISTORY Never Assessed REASON FOR VISIT Refill request PLAN OF CARE VITAL SIGNS MEDICATIONS Medication Instructions Dosage Frequency Start Date End Date Duration Status Humalog KwikPen 100 UNIT/ML Subcutaneous 3 times a day per sliding scale 8h May, 30 days Active RESULTS No Results PROCEDURES No Known procedures [...]
--- OUTSIDE RECORDS SUMMARY | 2017-12-18 19:48 | XMS REPORT ---
Author Author MCKENNA HEBERT Organization [facility] Address [address] [place] [address] Care Team Providers Care Block Setter Gypsum Name Role Phone MCKENNA HEBERT Unavailable PROBLEMS Type Condition ICD9-CM Code GNC33-OH Code Onset Dates Condition Status SNOMED Code Problem Amput below knee, unilat S88.119A Active 89943682 Problem Chronic congestive heart failure, unspecified congestive heart failure type I50.9 Active 01677174 Problem Intra-dialytic hypotension I95.3 Active 697973278 Problem Cellulitis of right lower extremity L03.115 Active 288837297 Problem Diabetes type 2, controlled E11.9 Active 83960620 Problem Renal failure N19 Active 68463085 Problem Neuropathy G62.9 Active 696527913 Problem Primary insomnia F51.01 Active 8456703 Problem 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 Active 5095979 Problem Chronic congestive heart failure, unspecified heart failure type I50.9 Active 72080470 Problem Seasonal allergic rhinitis due to other allergic trigger J30.89 Active 452198896 Problem Other chronic pain G89.29 Active 55018241 Problem Angina pectoris I20.9 Active 884057574 ALLERGIES No Information ENCOUNTERS Encounter Location Date Diagnosis [place] [id number] [place] [address]187- 9902 Oct, Diabetes type 2, controlled E11.9 ; Primary insomnia F51.01 and Bilateral headaches R51 [facility] [address], [place] [address] 3139 Oct, [place] [address] [place] [id number] [place] [address] 85713- 1313 Sep, [facility] [id number] [address] Sep, Dental examination Z01.20 and Dental caries K02.9 [place] [address] [facility] [id number], [place] [address] 08[address] 13 Sep, 2017 [facility] [address] [facility] [id number], [place] [address]- 5[address] Sep, [facility] [address] [facility] [id number], [place] [address] 6[address] Sep, Other chronic pain G89.29 and Pain in right knee M25.561 [facility] [address] [facility] [id number], [place] [address] 8[address] 05 Sep, 2017 [facility] [address] [facility] [id number], [place] [address]- 8695 Aug, [facility] [address], [place] [address] 37[address] 20 Aug, 2017 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 [facility] [id number] [place] [address] 21436- 8004 15 Aug, 2017 [facility] [address], [place] [address]- 4106 11 Aug, 2017 Diabetes type 2, controlled E11.9 and Acute pain of right knee M25.561 [facility] [address], [place] [address] 38[address] 09 Aug, 2017 [facility] [address], [place] [address]- 0825 July, [facility] [address], [place] [address] 0679 16 Jun, 2017 [facility] [address] [facility] [id number] [place] [address]- 1185 13 Jun, 2017 [facility] [address], [place] [address]- 4431 10 Jun, 2017 Diabetes type 2, controlled E11.9 [facility] [address], [place] [address]- 2190 Jun, [facility] [address], [place] [address]- 7051 May, [facility] [id number] [place] [address] 89933- 8278 May, [facility] [id number] [place] [address] 59880- 1689 May, [facility] [id number] [place] [address] 55988- 7403 May, Chronic congestive heart failure, unspecified congestive heart failure type I50.9 [facility] [id number] [place] [address] 22563- 0536 May, Diabetes type 2, controlled E11.9 ; BMI 50.0-59.9, adult Z68.43 ; Chronic congestive heart failure, unspecified heart failure type I50.9 ; Angina pectoris I20.9 ; Seasonal allergic rhinitis due to other allergic trigger J30.89 and Renal failure N19 [facility] [address] [place] [address] [id number] May, [facility] [id number] [place] [address] 74200- 0333 May, [facility] [id number] [place] [address] 45499- 6584 May, [facility] [id number] [place] [address] 96278- 0164 May, [facility] [id number] [place] [address] 90771- 7392 May, [facility] [address] [place] [address] 90766- 3410 Apr, BMI 50.0-59.9, adult Z68.43 [facility] [address], [place] [address]- 8040 Apr, BMI 50.0-59.9, adult Z68.43 ; Post-procedural fever R50.82 and Bronchitis J40 [facility] [address] [facility] [id number], [place] [address]- 6723 Apr, Chronic congestive heart failure, unspecified congestive heart failure type I50.9 [facility] [address] [facility] [id number] [place] [address]- 6200 Jan, [facility] [id number] [place] [address] 85501- 1818 Jan, Diabetes type 2, controlled E11.9 [facility] [address] [facility] [id number] [place] [address], [place] [address]- 2971 Jan, Neuropathy G62.9 [facility] [address] [id number] [place] [address], [place] [address]- 2244 Jan, [facility] [id number] [place] [address] 92644- 8936 Jan, [facility] [id number] [place] [address] 35083- 7457 Jan, [facility] [address] [place] [address] 80473- 7472 Jan, [facility] [id number] [place] [address] 03543- 2020 Jan, [facility] [address], [place] [address]- 0028 Dec, [facility] [address], [place] [address]- 2097 Dec, [facility] [address], [place] [address]- 0921 Dec, Diabetes type 2, controlled E11.9 [facility] [address], [place] [address]- 2271 Dec, [facility] [address] [place] [address] [id number], [place] [address]- 3643 Dec, [facility] [id number], [place] [address]- 0419 Dec, Chronic congestive heart failure, unspecified congestive heart failure type I50.9 [facility] [address], [place] [address]- 8236 Dec, [facility] [address], [place] [address]- 4478 Dec, [facility] [id number] [place] [address] 68043- 7587 Nov, Chronic congestive heart failure, unspecified congestive heart failure type I50.9 [facility] [id number] [place] [address] 97317- 1436 Nov, Chronic congestive heart failure, unspecified congestive heart failure type I50.9 [facility] [address], [place] [address]- 9318 Nov, [facility] [id number] [place] [address] 55459- 9735 Oct, [facility] [address] [place] [address] 77534- 3357 Oct, [facility] [address] [place] [address] 42404- 6918 Oct, Chronic congestive heart failure, unspecified congestive heart failure type I50.9 [facility] [address], [place] [address]- 0167 Oct, [facility] [address], [place] [address]- 8778 Oct, Pneumonia of both lungs due to infectious organism, unspecified part of lung J18.9 [facility] [address], [place] [address]- 2466 Oct, [facility] [address], [place] [address]- 1229 Oct, Diabetes type 2, controlled E11.9 [facility] [id number], [place] [address]- 3389 Oct, Diabetes type 2, controlled E11.9 [facility] [id number] [place] [address] 75183- 6966 Sep, [facility] [id number] [place] [address] 24700 2546 Sep, Neuropathy G62.9 [facility] [id number] [place] [address] 50034 2546 Aug, Intra-dialytic hypotension I95.3 [facility] [id number] [place] [address], [place] [address] 2546 July, [facility] [id number] [place] [address] 30150- 3246 July, [facility] [id number] [place] [address] 73419- 6486 July, [facility] [id number] [place] [address] 33891- 3492 July, Amput below knee, unilat S88.119A [facility] [id number] [place] [address] 57660- 1146 May, [facility] [address] [place] [address] 02562- 0669 May, Neuropathy G62.9 [facility] [id number], [place] [address] 2546 May, [facility] [address], [place] [address] 2546 May, [facility] [id number] [place] [address] 53140 2546 May, [facility] [address], [place] [address] 2546 May, [facility] [id number] [place] [address] 46147- 0229 May, Neuropathy G62.9 [facility] [address] [facility] [id number] [place] [address]- 4372 Apr, [facility] [address] [place] [address]- 7507 Apr, [facility] [id number] [place] [address]- 8460 Apr, Diabetes type 2, controlled E11.9 and Renal failure N19 [facility] [address] [facility] [id number] [place] [address] -7398 Apr, [facility] [id number] [place] [address], [place] [address]- 9217 Apr, [facility] [id number] [place] [address], [place] [address]- 3667 Mar, [facility] [id number] [place] [address], [place] [address]- 1797 Mar, [facility] [address] [place] [address]- 6021 Mar, [facility] [id number] [place] [address], [place] [address]- 8744 Mar, [facility] [address] [place] [address]- 1984 Mar, [facility] [address] [place] [address]- 2340 Jan, Localized edema R60.0 [facility] [address] [place] [address] [id number] [place] [address]- 6712 Jan, [facility] [address] [id number] [place] [address]- 4663 Jan, [facility] [address] [place] [address]- 4819 Jan, [facility] [address], [place] [address]- 1254 Jan, [facility] [address], [place] [address]- 2260 Jan, [facility] [address] [place] [address] 06014- 4132 Jan, [facility] [id number] [place] [address] 48853- 5276 Dec, Diabetes type 2, controlled E11.9 and Chronic nonintractable headache, unspecified headache type R51 [facility] [address] [place] [address] 09864- 7758 Dec, [facility] [id number] [place] [address] 06819- 3436 Dec, [facility] [id number] [place] [address] 48271- 0144 Nov, [facility] [id number] [place] [address] 72335- 7539 Nov, [facility] [id number] [place] [address] 10575- 0165 Oct, [facility] [id number] [place] [address] 92008- 3456 Oct, Migraine without status migrainosus, not intractable, unspecified migraine type G43.909 [facility] [address] [place] [address] 90789- 2150 Oct, [facility] [address] [place] [address] 47054- 0208 Sep, Amput below knee, unilat S88.119A and Neuropathy G62.9 [facility] [id number] [place] [address] 12091- 3996 Sep, [facility] [id number] [place] [address] 50721- 9719 Sep, [facility] [address] [id number] [place] [address]- 9470 Sep, [facility] [address] [facility] [id number] [place] [address]- 3589 Aug, [facility] [address] [facility] [id number] [place] 7953 Aug, [facility] [address] [facility] [id number][place]- 7108 Aug, Diabetes type 2, controlled E11.9 [facility] [address] [facility] [id number] [place] [address]- 1138 Aug, [facility] [address] [facility] [id number] [place] [address]- 2891 Jun, Diabetes type 2, controlled E11.9 and Neuropathy G62.9 [facility] [address] [place] [address]- 5331 Jun, [facility] [address] [facility] [id number] [place] [address]- 6272 Jun, [facility] [address] [place] [address]- 4938 Jun, [facility] [address] [place] [address]- 9735 Jun, [facility] [address] [place] [id number] [place] [address]- 4120 May, [facility] [address] [facility] [id number], [place] [address]- 5065 May, Diabetes type 2, controlled E11.9 [facility] [address] [place] [address] [id number] [place] [address]- 6467 May, [facility] [address] [facility] [id number] [place] [address]- 6729 May, [facility] [address] [id number] 6524 May, [facility] [address], [place] [address]- 0538 May, [facility] [address] [place] [address]- 4896 May, [facility] [address], [place] [address]- 2966 May, [facility] [id number] [place] [address], [place] [address] 2546 May, [facility] [address], [place] [address]- 9451 May, COPD (chronic obstructive pulmonary disease) J44.9 [facility] [address], [place] [address]- 9913 May, [facility] [address], [place] [address]- 4812 May, [facility] [address], [place] [address]- 2227 May, [facility] [address], [place] [address]- 6959 May, [facility] [address], [place] [address]- 3956 May, [facility] [address], [place] [address]- 7879 May, Renal failure N19 and Pneumonia, organism unspecified, unspecified laterality, unspecified part of lung J18.9 [facility] [address], [place] [address]- 3335 Apr, [facility] [address], [place] [address]- 8541 Apr, [facility] [address], [place] [address]- 9395 Apr, [facility] [id number] [place] [address]- 8193 Apr, Diabetes mellitus 250.00 [facility] [address] [id number] [place] [address]- 2381 14 Apr, 2015 [facility] [address] [id number] [place] [address]- 3585 14 Apr, 2015 [facility] [address] [id number] [place] [address], [place] [address]- 1710 Apr, [facility] [address] [id number] [place] [address]- 0761 Apr, [facility] [address] [id number] [place] [address], [place] [address]- 7601 31 Mar, 2015 [facility] [address] [place] [address]- 9634 Mar, [facility] [address] [place] [address]- 3302 Mar, [facility] [id number] [place] [address]- 8616 16 Mar, 2015 Renal failure N19 [facility] [address] [place] [address]- 8089 14 Mar, 2015 [facility] [id number] [place] [address]- 3021 Mar, [facility] [address] [facility] [id number] [place] [address]- 9975 04 Mar, 2015 [facility] [address] [facility] [id number] [place] [address]- 5871 24 Jan, 2015 [facility] [address] [facility] [id number] [place] [address]- 1616 18 Jan, 2015 [facility] [address] [facility] [id number] [place]- 1321 17 Jan, 2015 [facility] [address], [place] [address]- 8255 Jan, [facility] [address] [facility] [id number] [place] [address]- 0112 Dec, [facility] [place] [facility] [address] [facility] [id number], [place] [address]- 7101 Dec, [facility] [place] [facility] [address] [place] [address]- 4281 Dec, [facility] [address] [facility] [id number] [place] [address] 68013- 7304 Nov, [facility] [address] [facility] [id number] [place] [address], [place] [address]- 0965 Nov, [facility] [id number] [place] [address], [place] [address]- 0219 Nov, [facility] [id number] [place] [address] 66462- 9528 Oct, [facility] [address], [place] [address]- 8321 Oct, [facility] [id number] [place] [address] 23079- 0766 Oct, Renal failure 586 and Obesity 278.00 [facility] [id number], [place] [address]- 0017 Oct, [facility] [place] [facility] [address], [place] [address]- 7344 Oct, [facility] [place] [facility] [address] [facility] [id number], [place] [address]- 7253 Oct, [facility] [place] [facility] [address], [place] [address]- 5271 Sep, [facility] [place] [facility] [address] [facility] [id number], [place] [address]- 3486 Sep, [facility] [address], [place] [address]- 0378 Sep, Diabetes mellitus 250.00 and Congestive heart failure, unspecified 428.0 [facility] [address] [id number] [place] [address]- 0170 Aug, [facility] [address] [facility] [id number], [place] [address]- 7481 Aug, [facility] [address] [facility] [id number] [place] [address]- 3321 Aug, [facility] [address] [facility] [id number], [place] [address] July, [facility] [address] [id number] [place] [address] July, [facility] [id number] [place] [address] July, Heart murmur, systolic 785.2 [facility] [id number] [place] [address] July, [facility] [address] [id number], [place] [address] July, [facility] [id number] [place] [address] Jun, [facility] [id number], [place] [address] Jun, [facility] [address] [id number], [place] [address] May, [facility] [address] [id number], [place] [address] May, [facility] [id number] [place] [address] May, [facility] [address] [facility] [id number], [place] [address] May, [facility] [address] [id number], [place] [address] 16 May, 2014 [facility] [place] [facility] [address] [id number] [place] [address] 16 May, 2014 [facility] [place] [facility] [address] [facility] [id number] [place] [address] May, 2014 [facility] [place] [facility] [address] [facility] [id number] [place] [address] 10 May, 2014 [facility] [place] [facility] [address] [facility] [id number] [place] [address] May, [facility] [place] [facility] [address] [facility] [id number] [place] [address] May, [facility] [place] [facility] [address] [facility] [id number] [place] [address] May, 2014 [facility] [place] [facility] [address] [facility] [id number] [place] [address] May, 2014 [facility] [place] [facility] [address] [facility] [id number] [place] [address] May, 2014 [facility] [place] [facility] [address] [facility] [id number] [place] [address] May, 2014 [facility] [place] [facility] [address] [facility] [id number] [place] [address] May, 2014 [facility] [place] [facility] [address] [facility] [id number] [place] [address]- [address] May, 2014 [facility] [place] [facility] [address] [facility] [id number], [place] [address] May, 2014 [facility] [place] [facility] [address] [facility] [id number] [place] [address] May, 2014 [facility] [place] [facility] [address] [facility] [id number], [place] [address] May, 2014 [facility] [place] [facility] [address] [facility] [id number], [place] [address] May2014 [facility] [place] [facility] [address] [id number] [place] [address] May, 2014 [facility] [place] [facility] [address] [id number] [place] [address] May, 2014 [facility] [place] [facility] [address] [id number] [place] [address] May, 2014 [facility] [place] [facility] [address] [id number] [place] [address] May, 2014 [facility] [place] [facility] [address] [id number] [place] [address] May, [facility] [place] [facility] [address] [id number] [place] [address] May, [facility] [place] [facility] [address] [id number] [place] [address] Apr, [facility] [place] [facility] [address] [address] [id number] [place] [address] Apr, [facility] [place] [facility] [address] [id number] [place] [address] 75[address] Apr, [facility] [place] [facility] [address] [id number] [place] [address] 6491 Apr, [facility] [place] [facility] [address] [id number], [place] [address] 89[address] Apr, [facility] [place] [facility] [address] [id number], [place] [address] 7[address] Apr, [facility] [place] [facility] [address] [id number] [place] [address]- 7564 Apr, [facility] [place] [facility] [address] [id number], [place] [address] 5643 Apr, [facility] [place] [facility] [address] [id number], [place] [address] Mar, [facility] [place] [facility] [address] [id number], [place] [address] 8061 Mar, [facility] [place] [facility] [address] [id number] [place] [address] 0556 Mar, [facility] [place] [facility] [address] [id number] [place] [address] 1246 Mar, [facility] [place] [facility] [address] [id number] [place] [address]- 4726 Mar, [facility] [place] [facility] [address] [id number] [place] [address]- 2017 Mar, [facility] [place] [facility] [address] [id number] [place] [address]- 9345 Mar, [facility] [place] [facility] [address] [id number] [place] [address]- 0925 Mar, [facility] [place] [facility] [address] [id number] [place] [address]- 4808 Mar, [facility] [place] [facility] [address] [id number] [place] [address]- 7269 Mar, [facility] [place] [facility] [address] [id number] [place] [address]- 0991 Mar, [facility] [place] [facility] [address] [id number] [place] [address]- 3685 Mar, [facility] [place] [facility] [address] [id number] [place] [address]- 7335 Mar, [facility] [place] [facility] [address] [id number] [place] [address]- 6438 Mar, [facility] [place] [facility] [address] [id number] [place] [address]- 9091 Mar, [facility] [place] [facility] [address] [id number] [place] [address]- 7832 10 Mar, 2014 [facility] [place] [facility] [address] [id number] [place] [address]- 6902 Mar, [facility] [place] [facility] [address] [id number] [place] [address]- 8268 Mar, [facility] [place] [facility] [address] [id number] [place] [address]- 5980 Mar, [facility] [place] [facility] [address] [id number] [place] [address] Mar, [facility] [place] [facility] [address] [id number] [place] [address]- 1463 Mar, [facility] [place] [facility] [address] [id number] [place] [address]- 5476 Mar, [facility] [place] [facility] [address] [id number] [place] [address]- 3851 Jan, [facility] [place] [facility] [address] [id number] [place] [address]- 2358 Jan, [facility] [place] [facility] [address] [id number] [place] [address]- 7131 Jan, [facility] [place] [facility] [address] [id number] [place] [address]- 6128 Jan, [facility] [place] [facility] [address] [id number] [place] [address]- 4509 Jan, [facility] [place] [facility] [address] [id number] [place] [address]- 0214 Jan, [facility] [place] [facility] [address] [id number] [place] [address]- 8774 Jan, [facility] [place] [facility] [address] [id number] [place] [address]- 2713 Jan, [facility] [place] [facility] [address] [id number] [place] [address]- 3627 Jan, [facility] [place] [facility] [address] [id number] [place] [address]- 1369 Jan, [facility] [place] [facility] [address] [id number] [place] [address]- 4066 Jan, [facility] [place] [facility] [address] [id number] [place] [address]- 4762 Jan, [facility] [place] [facility] [address] [id number] [place] [address]- 4131 Jan, [facility] [place] [facility] [address] [id number] [place] [address]- 2209 Jan, [facility] [place] [facility] [address] [id number] [place] [address]- 0560 Jan, [facility] [place] [facility] [address] [id number] [place] [address]- 8942 Jan, [facility] [place] [facility] [address] [id number] [place] [address]- 3466 Jan, [facility] [place] [facility] [address] [id number] [place] [address]- 2289 Jan, [facility] [place] [facility] [address] [id number] [place] [address]- 5344 Jan, [facility] [place] [facility] [address] [id number] [place] [address]- 0812 Jan, [facility] [place] [facility] [address] [id number] [place] [address]- 3532 Dec, [facility] [place] [facility] [address] [id number], [place] [address]- 6569 Dec, [facility] [place] [facility] [address] [id number], [place] [address]- 9781 Dec, [facility] [place] [facility] [address] [id number] [place] [address]- 3972 Dec, [facility] [place] [facility] [address] [id number], [place] [address]- 0848 Dec, [facility] [place] [facility] [address] [id number], [place] [address]- 1126 Dec, [facility] [place] [facility] [address] [id number] [place] [address]- 0206 14 Dec, 2013 [facility] [place] [facility] [address] [id number] [place] [address]- 6844 10 Dec, 2013 [facility] [place] [facility] [address] [id number] [place] [address]- 7215 10 Dec, 2013 [facility] [place] [facility] [address] [id number] [place] [address]- 4636 08 Dec, 2013 [facility] [place] [facility] [address] [id number] [place] [address]- 5220 08 Dec, 2013 [facility] [place] [facility] [address] [id number] [place] [address]- 0430 Dec, [facility] [place] [facility] [address] [id number] [place] [address]- 4621 Dec, [facility] [place] [facility] [address] [id number] [place] [address]- 9608 Dec, [facility] [place] [facility] [address] [id number] [place] [address]- 4941 Dec, [facility] [place] [facility] [address] [id number] [place] [address]- 4476 22 Nov, 2013 [facility] [place] [facility] [address] [id number] [place] [address]- 9705 22 Nov, 2013 [facility] [place] [facility] [address] [id number] [place] [address]- 5607 19 Nov, 2013 [facility] [place] [facility] [address] [id number] [place] [address]- 2543 19 Sep, 2013 [facility] [place] [facility] [address] [id number] [place] [address] 2545 13 Nov, 2013 [facility] [place] [facility] [address] [id number] [place] [address]- 2540 13 Nov, 2013 [facility] [place] [facility] [address] [id number] [place] [address]- 9763 Nov, 2013 [facility] [place] [facility] [address] [id number] [place] [address]- 0704 Nov, 2013 [facility] [place] [facility] [address] [id number] [place] [address]- 3138 Nov, 2013 [facility] [place] [facility] [address] [id number] [place] [address]- 0279 Nov, 2013 [facility] [place] [facility] [address] [id number] [place] [address]- 8540 Nov, 2013 [facility] [place] [facility] [address] [id number] [place] [address]- 2721 Nov, [facility] [place] [facility] [address] [id number] [place] [address]- 3740 Nov, [facility] [place] [facility] [address] [id number] [place] [address]- 6497 Oct, [facility] [place] [facility] [address] [id number] [place] [address]- 3874 Oct, [facility] [place] [facility] [address] [id number] [place] [address]- 1781 Oct, [facility] [place] [facility] [address] [id number] [place] [address]- 9466 Oct, [facility] [place] [facility] [address] [id number] [place] [address]- 6630 Oct, [facility] [place] [facility] [address] [id number] [place] [address]- 2637 Sep, [facility] [place] [facility] [address] [id number] [place] [address]- 7749 Sep, [facility] [place] [facility] [address] [id number] [place] [address]- 7838 Sep, [facility] [place] [facility] [address] [id number] [place] [address]- 3794 Sep, [facility] [place] [facility] [address] [id number] [place] [address]- 2593 Aug, [facility] [place] [facility] [address] [id number] [place] [address]- 3862 Aug, [facility] [place] [facility] [address] [id number] [place] [address]- 5284 Aug, [facility] [place] [facility] [address] [id number] [place] [address]- 0912 Aug, [facility] [place] [facility] [address] [id number] [place] [address]- 1888 Aug, [facility] [place] [facility] [address] [id number] [place] [address]- 4161 Aug, [facility] [place] [facility] [address] [id number] [place] [address]- 7093 Aug, [facility] [place] [facility] [address] [id number] [place] [address]- 0985 Aug, [facility] [place] [facility] [address] [id number] [place] [address]- 6303 Aug, [facility] [place] [facility] [address] [id number] [place] [address]- 9828 Aug, [facility] [place] [facility] [address] [id number] [place] [address]- 5393 Aug, [facility] [place] [facility] [address] [id number] [place] [address]- 1246 Aug, [facility] [place] [facility] [address] [id number] [place] [address]- 7038 Aug, [facility] [place] [facility] [address] [id number] [place] [address]- 0986 Aug, [facility] [place] [facility] [address] [id number] [place] [address]- 0750 Aug, [facility] [place] [facility] [address] [id number] [place] [address]- 5154 Aug, [facility] [place] [facility] [address] [id number] [place] [address]- 3411 Aug, [facility] [place] [facility] [address] [id number] [place] [address]- 1272 Aug, [facility] [place] [facility] [address] [id number] [place] [address]- 2812 Aug, [facility] [place] [facility] [address] [id number] [place] [address]- 6839 Aug, [facility] [place] [facility] [address] [id number] [place] [address]- 2594 Aug, [facility] [place] [facility] [address] [id number] [place] [address]- 4822 Aug, [facility] [place] [facility] [address] [id number] [place] [address]- 9467 Aug, [facility] [place] [facility] [address] [id number] [place] [address]- 5005 Aug, [facility] [place] [facility] [address] [id number] [place] [address]- 4961 July, [facility] [place] [facility] [address] [id number] [place] [address]- 4004 July, [facility] [place] [facility] [address] [id number] [place] [address]- 1429 July, [facility] [place] [facility] [address] [id number] [place] [address]- 1116 July, [facility] [place] [facility] [address] [id number] [place] [address]- 0873 July, [facility] [place] [facility] [address] [id number] [place] [address]- 4443 July, [facility] [place] [facility] [address] [id number] [place] [address]- 5226 Jun, [facility] [place] [facility] [address] [id number] [place] [address]- 2882 Jun, [facility] [place] [facility] [address] [id number] [place] [address]- 7375 Jun, [facility] [place] [facility] [address] [id number] [place] [address]- 6838 Jun, [facility] [place] [facility] [address] [id number] [place] [address]- 9538 Jun, [facility] [place] [facility] [address] [id number] [place] [address]- 8415 Jun, [facility] [place] [facility] [address] [id number] [place] [address]- 0223 Jun, [facility] [place] [facility] [address] [id number] [place] [address]- 2891 Jun, [facility] [place] [facility] [address] [id number] [place] [address]- 6430 Jun, [facility] [place] [facility] [address] [id number] [place] [address]- 9499 Jun, [facility] [place] [facility] [address] [id number] [place] [address]- 9931 Jun, [facility] [place] [facility] [address] [id number] [place] [address]- 7431 Jun, [facility] [place] [facility] [address] [id number] [place] [address]- 1704 Jun, [facility] [place] [facility] [address] [id number], [place] [address]- 6519 Jun, [facility] [place] [facility] [address] [id number] [place] [address]- 6557 Jun, [facility] [place] [facility] [address] [id number] [place] [address]- 5753 May, [facility] [place] [facility] [address] [id number] [place] [address]- 6563 May, [facility] [place] [facility] [address] [id number], [place] [address]- 6839 May, [facility] [place] [facility] [address] [id number] [place] [address]- 4260 May, [facility] [place] [facility] [address] [id number] [place] [address]- 7117 May, [facility] [place] [facility] [address] [facility] [id number] [place] [address]- 5209 May, [facility] [place] [facility] [address] [facility] [id number] [place] [address]- 2785 May, [facility] [place] [facility] [address] [id number] [place] [address]- 9584 May, [facility] [place] [facility] [address] [facility] [id number] [place] [address]- 2601 May, [facility] [place] [facility] [address] [id number] [place] [address]- 6426 May, [facility] [place] [facility] [address] [facility] [id number] [place] [address]- 3029 May, [facility] [place] [facility] [address] [facility] [id number] [place] [address]- 8516 May, [facility] [place] [facility] [address] [facility] [id number] [place] [address]- 2356 May, [facility] [place] [facility] [address] [facility] [id number] [place] [address]- 0413 May, [facility] [place] [facility] [address] [facility] [id number], [place] [address]- 5585 May, [facility] [place] [facility] [address] [id number] [place] [address]- 9860 May, [facility] [place] [facility] [address] [facility] [id number], [place] [address]- 5663 May, [facility] [place] [facility] [address] [facility] [id number], [place] [address]- 8068 Apr, [facility] [place] [facility] [address] [id number] [place] [address]- 2940 Apr, [facility] [place] [facility] [address] [id number] [place] [address]- 8495 Apr, [facility] [place] [facility] [address] [id number] [place] [address]- 3477 Apr, [facility] [place] [facility] [address] [id number] [place] [address]- 0709 Apr, [facility] [address] [id number] [place] [address]- 9455 Apr, [facility] [place] [facility] [address] [id number] [place] [address]- 5953 Apr, [facility] [address] [id number] [place] [address]- 1475 Apr, [facility] [address] [id number] [place] [address]- 5611 Apr, [facility] [place] [facility] [address] [id number] [place] [address]- 7945 Apr, [facility] [place] [facility] [address] [id number] [place] [address]- 6428 Apr, [facility] [place] [facility] [address] [id number] [place] [address]- 5828 Apr, [facility] [place] [facility] [address] [id number] [place] [address]- 0058 Apr, [facility] [place] [facility] [address] [id number] [place] [address]- 7936 Apr, [facility] [place] [facility] [address] [id number] [place] [address]- 7053 Apr, [facility] [place] [facility] [address] [id number] [place] [address]- 8096 Apr, [facility] [place] [facility] [address] [id number] [place] [address]- 2701 30 Mar, 2012 [facility] [address] [id number] [place] [address]- 8486 30 Mar, 2012 [facility] [place] [facility] [address] [id number] [place] [address]16 30 Mar, 2013 [facility] [place] [facility] [address] [id number] [place] [address]- 2683 30 Mar, 2013 [facility] [place] [facility] [address] [id number] [place] [address]- 4677 18 Mar, 2013 [facility] [place] [facility] [address] [id number] [place] [address]- 6953 18 Mar, 2013 [facility] [place] [facility] [address] [id number] [place] [address]- 8798 18 Mar, 2013 [facility] [address] [id number] [place] [address]- 3594 18 Mar, 2013 [facility] [place] [facility] [address] [id number] [place] [address]- 3434 17 Mar, 2013 [facility] [place] [facility] [address] [id number] [place] [address]- 7220 17 Mar, 2013 [facility] [place] [facility] [address] [id number] [place] [address]- 6122 05 Mar, 2013 [facility] [place] [facility] [address] [id number], [place] [address]- 4079 05 Mar, 2013 [facility] [place] [facility] [address] [id number], [place] [address]- 6127 04 Mar, 2013 [facility] [place] [facility] [address] [id number] [place] [address]- 5632 Mar, [facility] [place] [facility] [address] [id number] [place] [address]- 6498 04 Mar, 2013 [facility] [place] [facility] [address] [id number] [place] 8267 04 Mar, 2013 [facility] [place] [facility] [address] [id number] [place] [address] 2545 Mar, [facility] [address] [id number] [place] [address]- 4450 Mar, [facility] [place] [facility] [address] [id number] [place] [address]- 1806 Jan, [facility] [address] [id number] [place] [address]- 8078 Jan, [facility] [place] [facility] [address] [id number] [place] [address]- 3029 Jan, [facility] [address] [id number] [place] [address]- 5498 Jan, [facility] [address] [id number] [place] [address]- 3563 Nov, [facility] [place] [facility] [address] [id number] [place] [address]- 2891 Nov, [facility] [address] [id number] [place] [address]- 7180 Nov, [facility] [place] [facility] [address] [id number] [place] [address]- 1734 Nov, [facility] [address] [id number] [place] [address]- 7343 Oct, [facility] [place] [facility] [address] [id number] [place] [address] Oct, [facility] [place] [facility] [address] [id number] [place] [address] Oct, [facility] [place] [facility] [address] [id number] [place] [address] Oct, [facility] [place] [facility] [address] [id number] [place] [address] Sep, [facility] [place] [facility] [address] [id number] [place] [address] Sep, [facility] [address] [id number] [place] [address] Sep, [facility] [place] [facility] [address] [id number] [place] [address] Sep, [facility] [place] [facility] [address] [id number] [place] [address] Sep, [facility] [place] [facility] [address] [id number] [place] [address] Sep, [facility] [place] [facility] [address] [id number] [place] [address] Sep, [facility] [place] [facility] [address] [id number] [place] [address] Sep, [facility] [place] [facility] [address] [id number] [place] [address] Sep, [facility] [place] [facility] [address] [id number] [place] [address] Aug, [facility] [place] [facility] [address] [id number] [place] [address] Aug, [facility] [place] [facility] [address] [id number] [place] [address] Aug, [facility] [place] [facility] [address] [id number] [place] [address] Aug, [facility] [place] [facility] [address] [id number] [place] [address] July, [facility] [place] [facility] [address] [id number] [place] [address] July, [facility] [place] [facility] [address] [id number] [place] [address] July, [facility] [place] [facility] [address] [id number] [place] [address] July, [facility] [place] [facility] [address] [id number], [place] [address] July, [facility] [id number], [place] [address] July, [facility] [id number] [address] [address] July, [facility] [id number], [place] [address] Jun, [facility] [id number], [place] [address] May, [facility] [id number], [place] [address] May, [facility] [id number], [place] [address] May, [facility] [id number], [place] [address] May, [facility] [id number], [place] [address] May, [facility] [id number], [place] [address] May, [facility] [address] [id number], [place] [address] May, [facility] [address] [id number] [address] [address] May, IMMUNIZATIONS No Known Immunizations SOCIAL HISTORY [...]
--- OUTSIDE RECORDS SUMMARY | 2017-12-18 19:48 | XMS REPORT ---
Author Author MCKENNA HEBERT Organization [facility] Address [address] [place] [address] Care Team Providers Care Slope Hoist Operator Name Role Phone MCKENNA HEBERT Unavailable PROBLEMS Type Condition ICD9-CM Code CKW22-ZT Code Onset Dates Condition Status SNOMED Code Problem Amput below knee, unilat S88.119A Active 56561844 Problem Chronic congestive heart failure, unspecified congestive heart failure type I50.9 Active 45009484 Problem Intra-dialytic hypotension I95.3 Active 733737091 Problem Cellulitis of right lower extremity L03.115 Active 209988462 Problem Diabetes type 2, controlled E11.9 Active 57889724 Problem Renal failure N19 Active 83422006 Problem Neuropathy G62.9 Active 022037260 Problem Primary insomnia F51.01 Active 5226239 Problem 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 Active 6937908 Problem Chronic congestive heart failure, unspecified heart failure type I50.9 Active 68957594 Problem Seasonal allergic rhinitis due to other allergic trigger J30.89 Active 882012943 Problem Other chronic pain G89.29 Active 23354383 Problem Angina pectoris I20.9 Active 591629696 ALLERGIES No Information ENCOUNTERS Encounter Location Date Diagnosis [place] [id number] [place] [address] 79390- 5848 16 Oct, 2017 Diabetes type 2, controlled E11.9 ; Primary insomnia F51.01 and Bilateral headaches R51 [facility] [address], [place] [address] 4676 Oct, [place] [id number] [place] [address] 10080- 4632 Sep, [facility] [id number] [id number] Sep, Dental examination Z01.20 and Dental caries K02.9 [place] [address] [facility] [id number], [place] [address] 2140 13 Sep, 2017 [facility] [address] [facility] [id number], [place] [address] 2510 Sep, [facility] [address] [facility] [id number], [place] [address] 4506 Sep, Other chronic pain G89.29 and Pain in right knee M25.561 [facility] [address] [facility] [id number] [address] 0083 05 Sep, 2017 [facility] [address] [facility] [id number], [place] [address] 7410 Aug, [facility] [address], [place] [address] 0010 20 Aug, 2017 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 [facility] [id number] [place] [address] 74970- 2586 15 Aug, 2017 [facility] [address], [place] [address] 5273 11 Aug, 2017 Diabetes type 2, controlled E11.9 and Acute pain of right knee M25.561 [facility] [address], [place] [address]- 2597 09 Aug, 2017 [facility] [address], [place] [address] 3100 July, [facility] [address], [place] [address] 3016 16 Jun, 2017 [facility] [address] [facility] [id number] [place] [address]- 5805 13 Jun, 2017 [facility] [address] [address]- 4290 10 Jun, 2017 Diabetes type 2, controlled E11.9 [facility] [address], [place] [address]- 6501 Jun, [facility] [address], [place] [address]- 1663 May, [facility] [id number] [place] [address] 68457- 1804 May, [facility] [id number] [place] [address] 79850- 7292 May, [facility] [id number] [place] [address] 44010- 2106 May, Chronic congestive heart failure, unspecified congestive heart failure type I50.9 [facility] [id number] [place] [address] 52388- 8215 May, Diabetes type 2, controlled E11.9 ; BMI 50.0-59.9, adult Z68.43 ; Chronic congestive heart failure, unspecified heart failure type I50.9 ; Angina pectoris I20.9 ; Seasonal allergic rhinitis due to other allergic trigger J30.89 and Renal failure N19 [facility] [address] [place] [address] [id number] May, [facility] [id number] [place] [address] 23626- 4036 May, [facility] [id number] [place] [address] 01505- 7749 May, [facility] [id number] [place] [address] 29798- 6386 May, [facility] [id number] [place] [address] 34349- 9973 May, [facility] [address] [place] [address] 48540- 3516 Apr, BMI 50.0-59.9, adult Z68.43 [facility] [address], [place] [address]- 6616 Apr, BMI 50.0-59.9, adult Z68.43 ; Post-procedural fever R50.82 and Bronchitis J40 [facility] [address] [facility] [id number], [place] [address]- 6762 Apr, Chronic congestive heart failure, unspecified congestive heart failure type I50.9 [facility] [address] [facility] [id number] [place] [address]- 5190 Jan, [facility] [id number] [place] [address] 31532- 9812 Jan, Diabetes type 2, controlled E11.9 [facility] [address] [facility] [id number] [place] [address], [place] [address]- 8810 Jan, Neuropathy G62.9 [facility] [id number] [place] [address], [place] [address]- 9336 Jan, [facility] [id number] [place] [address] 51206- 0651 Jan, [facility] [id number] [place] [address] 64629- 7118 Jan, [facility] [id number] [place] [address] 43477- 9380 Jan, [facility] [id number] [place] [address] 18341- 3362 Jan, [facility] [address], [place] [address]- 1016 Dec, [facility] [address], [place] [address]- 2679 Dec, [facility] [address], [place] [address]- 0985 Dec, Diabetes type 2, controlled E11.9 [facility] [address], [place] [address]- 7733 Dec, [facility] [id number], [place] [address]- 8064 Dec, [facility] [address] [id number], [place] [address]- 1619 Dec, Chronic congestive heart failure, unspecified congestive heart failure type I50.9 [facility] [address], [place] [address]- 1692 Dec, [facility] [address], [place] [address]- 0426 Dec, [facility] [id number] [place] [address] 91193- 3962 Nov, Chronic congestive heart failure, unspecified congestive heart failure type I50.9 [facility] [id number] [place] [address] 14566- 0522 Nov, Chronic congestive heart failure, unspecified congestive heart failure type I50.9 [facility] [address], [place] [address]- 0788 Nov, [facility] [id number] [place] [address] 18965- 3258 Oct, [facility] [id number] [place] [address] 54297- 3974 Oct, [facility] [id number] [place] [address] 45946- 6969 Oct, Chronic congestive heart failure, unspecified congestive heart failure type I50.9 [facility] [address], [place] [address]- 6365 Oct, [facility] [address], [place] [address]- 4404 Oct, Pneumonia of both lungs due to infectious organism, unspecified part of lung J18.9 [facility] [address], [place] [address]- 1264 Oct, [facility] [address], [place] [address]- 8687 Oct, Diabetes type 2, controlled E11.9 [facility] [id number], [place] [address]- 3037 Oct, Diabetes type 2, controlled E11.9 [facility] [id number] [place] [address] 68912- 9776 Sep, [facility] [id number] [place] [address] 41591 2546 Sep, Neuropathy G62.9 [facility] [id number] [place] [address] 73249 2546 Aug, Intra-dialytic hypotension I95.3 [facility] [id number] [place] [address], [place] [address] 2546 July, [facility] [id number] [place] [address] 05052- 9556 July, [facility] [id number] [place] [address] 41745- 1666 July, [facility] [id number] [place] [address] 90805- 3040 July, Amput below knee, unilat S88.119A [facility] [id number] [place] [address] 66620- 8846 May, [facility] [id number] [place] [address] 08185- 9394 May, Neuropathy G62.9 [facility] [id number], [place] [address] 2546 May, [facility] [address], [place] [address] 2546 May, [facility] [id number] [place] [address] 17228 2546 May, [facility] [address], [place] [address] 2546 May, [facility] [id number] [place] [address] 45008- 5471 May, Neuropathy G62.9 [facility] [address] [facility] [id number] [place] [address]- 9983 Apr, [facility] [address] [address]- 4027 Apr, [facility] [id number] [address]- 4142 Apr, Diabetes type 2, controlled E11.9 and Renal failure N19 [facility] [address] [facility] [id number] [place] [address] -5925 Apr, [facility] [id number] [place] [address], [place] [address]- 8466 Apr, [facility] [id number] [place] [address], [place] [address]- 1235 Mar, [facility] [id number] [place] [address], [place] [address]- 7198 Mar, [facility] [address] [address]- 0327 Mar, [facility] [id number] [place] [address], [place] [address]- 7714 Mar, [facility] [id number] [address]- 4006 Mar, [facility] [id number] [address]- 2541 Jan, Localized edema R60.0 [facility] [id number] [address]- 6867 Jan, [facility] [address] [id number] [address]- 9631 Jan, [facility] [id number] [address]- 1401 Jan, [facility] [address], [place] [address]- 4369 Jan, [facility] [address], [place] [address]- 7270 Jan, [facility] [id number] [place] [address] 33593- 0655 Jan, [facility] [id number] [place] [address] 58750- 6687 Dec, Diabetes type 2, controlled E11.9 and Chronic nonintractable headache, unspecified headache type R51 [facility] [id number] [place] [address] 55027- 3204 Dec, [facility] [id number] [place] [address] 63733- 1888 Dec, [facility] [id number] [place] [address] 23105- 7732 Nov, [facility] [id number] [place] [address] 15669- 7078 Nov, [facility] [id number] [place] [address] 55025- 9829 Oct, [facility] [id number] [place] [address] 42232- 8718 Oct, Migraine without status migrainosus, not intractable, unspecified migraine type G43.909 [facility] [id number] [place] [address] 98173- 2816 Oct, [facility] [id number] [place] [address] 96508- 4966 Sep, Amput below knee, unilat S88.119A and Neuropathy G62.9 [facility] [id number] [place] [address] 97741- 2370 Sep, [facility] [id number] [place] [address] 29771- 3921 Sep, [facility] [address] [id number] [address]- 0235 Sep, [facility] [address] [facility] [id number] [place] [address]- 5761 Aug, [facility] [address] [facility] [id number] [place] 8957 Aug, [facility] [address] [facility] [id number] 1510 Aug, Diabetes type 2, controlled E11.9 [facility] [address] [facility] [id number] [place] [address]- 6735 Aug, [facility] [address] [facility] [id number] [place] [address]- 8343 Jun, Diabetes type 2, controlled E11.9 and Neuropathy G62.9 [facility] [id number] [address]- 1943 Jun, [facility] [address] [facility] [id number] [place] [address]- 7184 Jun, [facility] [id number] [address]- 2420 Jun, [facility] [id number] [address]- 3271 Jun, [facility] [id number] [address]- 1075 May, [facility] [address] [facility] [id number], [place] [address]- 5812 May, Diabetes type 2, controlled E11.9 [facility] [id number] [address]- 0193 May, [facility] [address] [facility] [id number] [place] [address]- 1325 May, [facility] [id number]- 4748 May, [facility] [address], [place] [address]- 1588 May, [facility] [id number] May, [facility] [address], [place] [address]- 5716 May, [facility] [address] [place] [address], [place] [address] 2546 May, [facility] [address], [place] [address]- 6522 May, COPD (chronic obstructive pulmonary disease) J44.9 [facility] [address], [place] [address]- 1150 May, [facility] [address], [place] [address]- 8608 May, [facility] [address], [place] [address]- 7977 May, [facility] [address], [place] [address]- 5223 May, [facility] [address], [place] [address]- 5815 May, [facility] [address], [place] [address]- 0367 May, Renal failure N19 and Pneumonia, organism unspecified, unspecified laterality, unspecified part of lung J18.9 [facility] [address], [place] [address]- 7191 Apr, [facility] [address], [place] [address]- 2236 Apr, [facility] [address], [place] [address]- 9201 Apr, [facility] [id number] [address]- 8634 Apr, Diabetes mellitus 250.00 [facility] [address] [id number] [place] [address]- 1223 14 Apr, 2015 [facility] [address] [id number] [place] [address]- 0732 14 Apr, 2015 [facility] [id number] [place] [address], [place] [address]- 4146 Apr, [facility] [address] [id number] [place] [address]- 2000 Apr, [facility] [address] [id number] [place] [address], [place] [address]- 9100 31 Mar, 2015 [facility] [id number] [address]- 0215 Mar, [facility] [id number] [address]- 4617 Mar, [facility] [id number] [address]- 1405 16 Mar, 2015 Renal failure N19 [facility] [id number] [address]- 6522 14 Mar, 2015 [facility] [id number] [address]- 5932 Mar, [facility] [address] [facility] [id number] [place] [address]- 2405 04 Mar, 2015 [facility] [address] [facility] [id number] [place] [address]- 5438 24 Jan, 2015 [facility] [address] [facility] [id number] [place] [address]- 1404 18 Jan, 2015 [facility] [address] [facility] [id number] [place]- 9718 17 Jan, 2015 [facility] [address], [place] [address]- 5028 Jan, [facility] [address] [facility] [id number] [place] [address]- 8421 Dec, [facility] [place] [facility] [address] [facility] [id number], [place] [address]- 2322 Dec, [facility] [place] [facility] [id number] [address]- 7153 Dec, [facility] [address] [facility] [id number] [place] [address] 64405- 2599 Nov, [facility] [address] [facility] [id number] [place] [address], [place] [address]- 6077 Nov, [facility] [id number] [place] [address], [place] [address]- 4945 Nov, [facility] [id number] [place] [address] 84863- 8201 Oct, [facility] [address], [place] [address]- 3967 Oct, [facility] [id number] [place] [address] 10319- 3401 Oct, Renal failure 586 and Obesity 278.00 [facility] [id number] [address]- 5532 Oct, [facility] [place] [facility] [address], [place] [address]- 1244 Oct, [facility] [place] [facility] [address] [facility] [id number], [place] [address]- 8804 Oct, [facility] [place] [facility] [address], [place] [address]- 5965 Sep, [facility] [place] [facility] [address] [facility] [id number], [place] [address]- 9557 Sep, [facility] [address], [place] [address]- 7747 Sep, Diabetes mellitus 250.00 and Congestive heart failure, unspecified 428.0 [facility] [address] [id number] [place] [address]- 5958 Aug, [facility] [address] [facility] [id number], [place] [address]- 9165 Aug, [facility] [address] [facility] [id number] [place] [address]- 3874 Aug, [facility] [address] [facility] [id number], [place] [address]- 3610 July, [facility] [address] [id number] [place] [address]- 0052 July, [facility] [id number] [place] [address] July, Heart murmur, systolic 785.2 [facility] [id number] [place] [address] July, [facility] [address] [id number] [address] July, [facility] [id number] [place] [address] Jun, [facility] [id number] [address] Jun, [facility] [address] [id number] [address] May, [facility] [address] [id number], [place] [address] May, [facility] [id number] [place] [address] May, [facility] [address] [facility] [id number], [place] [address] May, [facility] [address] [id number] [address] 16 May, 2014 [facility] [place] [facility] [address] [id number] [place] [address] 16 May, 2014 [facility] [place] [facility] [address] [facility] [id number] [place] [address] May, 2014 [facility] [place] [facility] [address] [facility] [id number] [place] [address]- [address] 10 May, 2014 [facility] [place] [facility] [address] [facility] [id number] [place] [address] May, [facility] [place] [facility] [address] [facility] [id number] [place] [address] May, [facility] [place] [facility] [address] [facility] [id number] [place] [address] May, 2014 [facility] [place] [facility] [address] [facility] [id number] [place] [address] May, 2014 [facility] [place] [facility] [address] [facility] [id number] [place] [address]- [address] May, 2014 [facility] [place] [facility] [address] [facility] [id number] [place] [address]- [address] May, 2014 [facility] [place] [facility] [address] [facility] [id number] [place] [address] May, 2014 [facility] [place] [facility] [address] [facility] [id number] [place] [address] May, 2014 [facility] [place] [facility] [address] [facility] [id number], [place] [address] May, 2014 [facility] [place] [facility] [address] [facility] [id number] [place] [address]- [address] May, 2014 [facility] [place] [facility] [address] [facility] [id number], [place] [address] May, 2014 [facility] [place] [facility] [address] [facility] [id number], [place] [address] May2014 [facility] [place] [facility] [address] [id number] [place] [address] May, 2014 [facility] [place] [facility] [address] [id number] [place] [address] May, 2014 [facility] [place] [facility] [address] [id number] [place] [address] May, 2014 [facility] [place] [facility] [address] [id number] [place] [address]69 May, 2014 [facility] [place] [facility] [address] [id number] [place] [address] May, [facility] [place] [facility] [address] [id number] [place] [address] May, [facility] [place] [facility] [address] [id number] [place] [address] Apr, [facility] [place] [facility] [address] [id number] [place] [address] Apr, [facility] [place] [facility] [address] [id number] [place] [address] Apr, [facility] [place] [facility] [address] [id number] [place] [address]- [address] Apr, [facility] [place] [facility] [address] [id number], [place] [address] Apr, [facility] [place] [facility] [address] [id number], [place] [address] Apr, [facility] [place] [facility] [address] [id number] [place] [address]- [address] Apr, [facility] [place] [facility] [address] [id number], [place] [address] Apr, [facility] [place] [facility] [address] [id number], [place] [address] Mar, [facility] [place] [facility] [address] [id number], [place] [address] Mar, [facility] [place] [facility] [address] [id number] [place] [address]- [address] Mar, [facility] [place] [facility] [address] [id number] [place] [address]- [address] Mar, [facility] [place] [facility] [address] [id number] [place] [address]- [address] Mar, [facility] [place] [facility] [address] [id number] [place] [address]- [address] Mar, [facility] [place] [facility] [address] [id number] [place] [address] Mar, [facility] [place] [facility] [address] [id number] [place] [address] 2877 Mar, [facility] [place] [facility] [address] [id number] [place] [address]127 Mar, [facility] [place] [facility] [address] [id number] [place] [address] 7365 Mar, [facility] [place] [facility] [address] [id number] [place] [address]- 1082 Mar, [facility] [place] [facility] [address] [id number] [place] [address]- 5467 Mar, [facility] [place] [facility] [address] [id number] [place] [address]- 6550 Mar, [facility] [place] [facility] [address] [id number] [place] [address] 1332 Mar, [facility] [place] [facility] [address] [id number] [place] [address]- 9231 Mar, [facility] [place] [facility] [address] [id number] [place] [address]- 5311 10 Mar, 2014 [facility] [place] [facility] [address] [id number] [place] [address] 6658 Mar, [facility] [place] [facility] [address] [id number] [place] [address] 8813 Mar, [facility] [place] [facility] [address] [id number] [place] [address]- 8144 Mar, [facility] [place] [facility] [address] [id number] [place] [address] Mar, [facility] [place] [facility] [address] [id number] [place] [address]- 1253 Mar, [facility] [place] [facility] [address] [id number] [place] [address]- 3057 Mar, [facility] [place] [facility] [address] [id number] [place] [address]- 1417 Jan, [facility] [place] [facility] [address] [id number] [place] [address]- 7396 Jan, [facility] [place] [facility] [address] [id number] [place] [address]- 2117 Jan, [facility] [place] [facility] [address] [id number] [place] [address]- 1344 Jan, [facility] [place] [facility] [address] [id number] [place] [address]- 1821 Jan, [facility] [place] [facility] [address] [id number] [place] [address] 2500 Jan, [facility] [place] [facility] [address] [id number] [place] [address]- 5580 Jan, [facility] [place] [facility] [address] [id number] [place] [address]- 3990 Jan, [facility] [place] [facility] [address] [id number] [place] [address]- 8003 Jan, [facility] [place] [facility] [address] [id number] [place] [address]- 1428 Jan, [facility] [place] [facility] [address] [id number] [place] [address] 6942 Jan, [facility] [place] [facility] [address] [id number] [place] [address]- 2182 Jan, [facility] [place] [facility] [address] [id number] [place] [address]- 5162 Jan, [facility] [place] [facility] [address] [id number] [place] [address]- 5959 Jan, [facility] [place] [facility] [address] [id number] [place] [address]- 6470 Jan, [facility] [place] [facility] [address] [id number] [place] [address]- 9306 Jan, [facility] [place] [facility] [address] [id number] [place] [address]- 8669 Jan, [facility] [place] [facility] [address] [id number] [place] [address]- 2644 Jan, [facility] [place] [facility] [address] [id number] [place] [address]- 2150 Jan, [facility] [place] [facility] [address] [id number] [place] [address]- 8353 Jan, [facility] [place] [facility] [address] [id number] [place] [address]- 3465 Dec, [facility] [place] [facility] [address] [id number] [address] 2288 Dec, [facility] [place] [facility] [address] [id number], [place] [address]- 2080 Dec, [facility] [place] [facility] [address] [id number] [place] [address]- 8504 Dec, [facility] [place] [facility] [address] [id number], [place] [address] 8078 Dec, [facility] [place] [facility] [address] [id number], [place] [address] 7751 Dec, [facility] [place] [facility] [address] [id number] [place] [address]- 8581 14 Dec, 2013 [facility] [place] [facility] [address] [id number] [place] [address]- 3818 10 Dec, 2013 [facility] [place] [facility] [address] [id number] [place] [address]- 8177 10 Dec, 2013 [facility] [place] [facility] [address] [id number] [place] [address]- 2250 08 Dec, 2013 [facility] [place] [facility] [address] [id number] [place] [address]- 6340 08 Dec, 2013 [facility] [place] [facility] [address] [id number] [place] [address]- 7951 Dec, [facility] [place] [facility] [address] [id number] [place] [address]- 2453 Dec, [facility] [place] [facility] [address] [id number] [place] [address]- 2227 Dec, [facility] [place] [facility] [address] [id number] [place] [address]- 1126 Dec, [facility] [place] [facility] [address] [id number] [place] [address]- 4535 22 Nov, 2013 [facility] [place] [facility] [address] [id number] [place] [address]- 5145 22 Nov, 2013 [facility] [place] [facility] [address] [id number] [place] [address]- 3869 19 Nov, 2013 [facility] [place] [facility] [address] [id number] [place] [address]- 2547 19 Sep, 2013 [facility] [place] [facility] [address] [id number] [place] [address] 2548 13 Nov, 2013 [facility] [place] [facility] [address] [id number] [place] [address]- 2547 13 Nov, 2013 [facility] [place] [facility] [address] [id number] [place] [address]- 9020 Nov, 2013 [facility] [place] [facility] [address] [id number] [place] [address]- 7736 Nov, 2013 [facility] [place] [facility] [address] [id number] [place] [address]- 8695 Nov, 2013 [facility] [place] [facility] [address] [id number] [place] [address]- 9739 Nov, 2013 [facility] [place] [facility] [address] [id number] [place] [address]- 4094 Nov, 2013 [facility] [place] [facility] [address] [id number] [place] [address]- 7858 Nov, [facility] [place] [facility] [address] [id number] [place] [address]- 1167 Nov, [facility] [place] [facility] [address] [id number] [place] [address]- 6091 Oct, [facility] [place] [facility] [address] [id number] [place] [address]- 3062 Oct, [facility] [place] [facility] [address] [id number] [place] [address]- 7713 Oct, [facility] [place] [facility] [address] [id number] [place] [address]- 4608 Oct, [facility] [place] [facility] [address] [id number] [place] [address]- 8176 Oct, [facility] [place] [facility] [address] [id number] [place] [address]- 0511 Sep, [facility] [place] [facility] [address] [id number] [place] [address]- 4585 Sep, [facility] [place] [facility] [address] [id number] [place] [address]- 6985 Sep, [facility] [place] [facility] [address] [id number] [place] [address]- 8484 Sep, [facility] [place] [facility] [address] [id number] [place] [address]- 4318 Aug, [facility] [place] [facility] [address] [id number] [place] [address]- 9458 Aug, [facility] [place] [facility] [address] [id number] [place] [address]- 4071 Aug, [facility] [place] [facility] [address] [id number] [place] [address]- 2398 Aug, [facility] [place] [facility] [address] [id number] [place] [address]- 2591 Aug, [facility] [place] [facility] [address] [id number] [place] [address]- 0335 Aug, [facility] [place] [facility] [address] [id number] [place] [address]- 6658 Aug, [facility] [place] [facility] [address] [id number] [place] [address]- 7109 Aug, [facility] [place] [facility] [address] [id number] [place] [address]- 0064 Aug, [facility] [place] [facility] [address] [id number] [place] [address]- 5085 Aug, [facility] [place] [facility] [address] [id number] [place] [address]- 6588 Aug, [facility] [place] [facility] [address] [id number] [place] [address]- 4530 Aug, [facility] [place] [facility] [address] [id number] [place] [address]- 0933 Aug, [facility] [place] [facility] [address] [id number] [place] [address]- 1622 Aug, [facility] [place] [facility] [address] [id number] [place] [address]- 4902 Aug, [facility] [place] [facility] [address] [id number] [place] [address]- 9736 Aug, [facility] [place] [facility] [address] [id number] [place] [address]- 5919 Aug, [facility] [place] [facility] [address] [id number] [place] [address]- 8678 Aug, [facility] [place] [facility] [address] [id number] [place] [address]- 1557 Aug, [facility] [place] [facility] [address] [id number] [place] [address]- 2117 Aug, [facility] [place] [facility] [address] [id number] [place] [address]- 7347 Aug, [facility] [place] [facility] [address] [id number] [place] [address]- 7683 Aug, [facility] [place] [facility] [address] [id number] [place] [address]- 2752 Aug, [facility] [place] [facility] [address] [id number] [place] [address]- 5966 Aug, [facility] [place] [facility] [address] [id number] [place] [address]- 8119 July, [facility] [place] [facility] [address] [id number] [place] [address]- 3920 July, [facility] [place] [facility] [address] [id number] [place] [address]- 6631 July, [facility] [place] [facility] [address] [id number] [place] [address]- 3563 July, [facility] [place] [facility] [address] [id number] [place] [address]- 2533 July, [facility] [place] [facility] [address] [id number] [place] [address]- 5031 July, [facility] [place] [facility] [address] [id number] [place] [address]- 1031 Jun, [facility] [place] [facility] [address] [id number] [place] [address]- 4543 Jun, [facility] [place] [facility] [address] [id number] [place] [address]- 3936 Jun, [facility] [place] [facility] [address] [id number] [place] [address]- 0824 Jun, [facility] [place] [facility] [address] [id number] [place] [address]- 9077 Jun, [facility] [place] [facility] [address] [id number] [place] [address]- 8680 Jun, [facility] [place] [facility] [address] [id number] [place] [address]- 2856 Jun, [facility] [place] [facility] [address] [id number] [place] [address]- 3977 Jun, [facility] [place] [facility] [address] [id number] [place] [address]- 7733 Jun, [facility] [place] [facility] [address] [id number] [place] [address]- 7929 Jun, [facility] [place] [facility] [address] [id number] [place] [address]- 4987 Jun, [facility] [place] [facility] [address] [id number] [place] [address]- 7318 Jun, [facility] [place] [facility] [address] [id number] [place] [address]- 5573 Jun, [facility] [place] [facility] [address] [id number], [place] [address]- 2239 Jun, [facility] [place] [facility] [address] [id number] [place] [address]- 3545 Jun, [facility] [place] [facility] [address] [id number] [place] [address]- 2361 May, [facility] [place] [facility] [address] [id number] [place] [address]- 4937 May, [facility] [place] [facility] [address] [id number], [place] [address]- 1719 May, [facility] [place] [facility] [address] [id number] [place] [address]- 9545 May, [facility] [place] [facility] [address] [id number] [place] [address]- 7442 May, [facility] [place] [facility] [address] [facility] [id number] [place] [address]- 1677 May, [facility] [place] [facility] [address] [facility] [id number] [place] [address]- 1528 May, [facility] [place] [facility] [address] [id number] [place] [address]- 3859 May, [facility] [place] [facility] [address] [facility] [id number] [place] [address]- 4392 May, [facility] [place] [facility] [address] [id number] [address]- 8030 May, [facility] [place] [facility] [address] [facility] [id number] [place] [address]- 7331 May, [facility] [place] [facility] [address] [facility] [id number] [place] [address]- 5607 May, [facility] [place] [facility] [address] [facility] [id number] [place] [address]- 9497 May, [facility] [place] [facility] [address] [facility] [id number] [place] [address]- 6641 May, [facility] [place] [facility] [address] [facility] [id number], [place] [address]- 2696 May, [facility] [place] [facility] [address] [id number] [place] [address]- 1342 May, [facility] [place] [facility] [address] [facility] [id number], [place] [address]- 4740 May, [facility] [place] [facility] [address] [facility] [id number], [place] [address]- 3859 Apr, [facility] [place] [facility] [address] [id number] [place] [address]- 6558 Apr, [facility] [place] [facility] [address] [id number] [place] [address]- 3647 Apr, [facility] [place] [facility] [address] [id number] [place] [address]- 6152 Apr, [facility] [place] [facility] [address] [id number] [place] [address]- 5310 Apr, [facility] [address] [id number] [place] [address]- 7475 Apr, [facility] [place] [facility] [address] [id number] [place] [address]- 2525 Apr, [facility] [address] [id number] [place] [address]- 0608 Apr, [facility] [address] [id number] [place] [address]- 0389 Apr, [facility] [place] [facility] [address] [id number] [place] [address]- 7063 Apr, [facility] [place] [facility] [address] [id number] [place] [address]- 8133 Apr, [facility] [place] [facility] [address] [id number] [place] [address]- 2224 Apr, [facility] [place] [facility] [address] [id number] [place] [address]- 0744 Apr, [facility] [place] [facility] [address] [id number] [place] [address]- 7318 Apr, [facility] [place] [facility] [address] [id number] [place] [address]- 2171 Apr, [facility] [place] [facility] [address] [id number] [place] [address]- 2541 Apr, [facility] [place] [facility] [address] [id number] [place] [address]- 5741 30 Mar, 2012 [facility] [address] [id number] [place] [address]- 2826 30 Mar, 2012 [facility] [place] [facility] [address] [id number] [place] [address]286 30 Mar, 2013 [facility] [place] [facility] [address] [id number] [place] [address]- 3268 30 Mar, 2013 [facility] [place] [facility] [address] [id number] [place] [address]- 4498 18 Mar, 2013 [facility] [place] [facility] [address] [id number] [place] [address]- 1847 18 Mar, 2013 [facility] [place] [facility] [address] [id number] [place] [address]- 8675 18 Mar, 2013 [facility] [address] [id number] [place] [address]- 5657 18 Mar, 2013 [facility] [place] [facility] [address] [id number] [place] [address]- 0414 17 Mar, 2013 [facility] [place] [facility] [address] [id number] [place] [address]- 4408 17 Mar, 2013 [facility] [place] [facility] [address] [id number] [place] [address]- 7444 05 Mar, 2013 [facility] [place] [facility] [address] [id number], [place] [address]- 8391 05 Mar, 2013 [facility] [place] [facility] [address] [id number], [place] [address]- 7870 04 Mar, 2013 [facility] [place] [facility] [address] [id number] [place] [address]- 3903 Mar, [facility] [place] [facility] [address] [id number] [place] [address]- 8383 04 Mar, 2013 [facility] [place] [facility] [address] [id number] [place] 7642 04 Mar, 2013 [facility] [place] [facility] [address] [id number] [place] [address] 2542 Mar, [facility] [address] [id number] [place] [address]- 4538 Mar, [facility] [place] [facility] [address] [id number] [place] [address]- 1236 Jan, [facility] [address] [id number] [place] [address]- 9181 Jan, [facility] [place] [facility] [address] [id number] [place] [address]- 3641 Jan, [facility] [address] [id number] [place] [address]- 7951 Jan, [facility] [address] [id number] [place] [address]- 1639 Nov, [facility] [place] [facility] [address] [id number] [place] [address]- 9061 Nov, [facility] [address] [id number] [place] [address]- 7715 Nov, [facility] [place] [facility] [address] [id number] [place] [address]- 5116 Nov, [facility] [address] [id number] [place] [address]- 3325 Oct, [facility] [place] [facility] [address] [id number] [place] [address]- 9906 Oct, [facility] [place] [facility] [address] [id number] [place] [address]- 0906 Oct, [facility] [place] [facility] [address] [id number] [place] [address]- 0318 Oct, [facility] [place] [facility] [address] [id number] [place] [address]- 3408 Sep, [facility] [place] [facility] [address] [id number] [place] [address]- 5661 Sep, [facility] [address] [id number] [place] [address]- 8012 Sep, [facility] [place] [facility] [address] [id number] [place] [address]- 1900 Sep, [facility] [place] [facility] [address] [id number] [place] [address]- 3537 Sep, [facility] [place] [facility] [address] [id number] [place] [address]- 8736 Sep, [facility] [place] [facility] [address] [id number] [place] [address]- 7741 Sep, [facility] [place] [facility] [address] [id number] [place] [address] Sep, [facility] [place] [facility] [address] [id number] [place] [address] Sep, [facility] [place] [facility] [address] [id number] [place] [address] Aug, [facility] [place] [facility] [address] [id number] [place] [address] Aug, [facility] [place] [facility] [address] [id number] [place] [address] Aug, [facility] [place] [facility] [address] [id number] [place] [address] Aug, [facility] [place] [facility] [address] [id number] [place] [address] July, [facility] [place] [facility] [address] [id number] [place] [address] July, [facility] [place] [facility] [address] [id number] [place] [address] July, [facility] [place] [facility] [address] [id number] [place] [address] July, [facility] [place] [facility] [address] [id number] [address] July, [facility] [id number] [address] July, [facility] [id number] July, [facility] [id number] [address] Jun, [facility] [id number] [address] May, [facility] [id number] [address] [address] May, [facility] [id number] [address] May, [facility] [id number] [address] May, [facility] [id number] [address] May, [facility] [id number] [address] May, [facility] [address] [id number] [address] May, [facility] [address] [id number] [address] May, IMMUNIZATIONS No Known Immunizations SOCIAL HISTORY Never Assessed REASON FOR VISIT Medication refill request PLAN OF CARE VITAL SIGNS MEDICATIONS Medication Instructions Dosage Frequency Start Date End Date Duration Status Lantus SoloStar 100 unit/ml Subcutaneous Once a day INJECT 36 UNITS SUBCUTANEOUSLY DAILY AT BEDTIME 24h Active RESULTS No Results PROCEDURES No Known [...]
--- OUTSIDE RECORDS SUMMARY | 2017-12-18 19:49 | XMS REPORT ---
Author Author MCKENNA HEBERT Organization [facility] Address [address] [place] [address] Care Team Providers Care Software Team Leader Name Role Phone MCKENNA HEBERT Unavailable PROBLEMS Type Condition ICD9-CM Code XPE78-JA Code Onset Dates Condition Status SNOMED Code Problem Amput below knee, unilat S88.119A Active 61311998 Problem Chronic congestive heart failure, unspecified congestive heart failure type I50.9 Active 83119566 Problem Intra-dialytic hypotension I95.3 Active 149490977 Problem Cellulitis of right lower extremity L03.115 Active 791270738 Problem Diabetes type 2, controlled E11.9 Active 64190563 Problem Renal failure N19 Active 21176488 Problem Neuropathy G62.9 Active 377079336 Problem Primary insomnia F51.01 Active 2617442 Problem 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 Active 3297446 Problem Chronic congestive heart failure, unspecified heart failure type I50.9 Active 04632373 Problem Seasonal allergic rhinitis due to other allergic trigger J30.89 Active 267580349 Problem Other chronic pain G89.29 Active 54530485 Problem Angina pectoris I20.9 Active 461164836 ALLERGIES No Information ENCOUNTERS Encounter Location Date Diagnosis [address] [address] [id number] [place] [address] 44990- 9289 Oct, Diabetes type 2, controlled E11.9 ; Primary insomnia F51.01 and Bilateral headaches R51 [facility] [address], [place] [address] Oct, [place] [id number] [place] [address] 57067- 9101 Sep, [facility] [id number] [id number] Sep, Dental examination Z01.20 and Dental caries K02.9 [place] [address] [facility] [place] [id number], [place] [address]- 2467 13 Sep, 2017 [facility] [address] [facility] [place] [id number], [place] [address]- 9[address] Sep, [facility] [address] [facility] [place] [id number], [place] [address] Sep, Other chronic pain G89.29 and Pain in right knee M25.561 [facility] [address] [facility] [place] [id number], [place] [address] 05 Sep, 2017 [facility] [address] [facility] [place] [id number], [place] [address]- 9692 Aug, [facility] [address], [place] [address]- 7526 20 Aug, 2017 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 [facility] [address] [place] [address] 52514- 3807 15 Aug, 2017 [facility] [address], [place] [address]- 4094 11 Aug, 2017 Diabetes type 2, controlled E11.9 and Acute pain of right knee M25.561 [facility] [address], [place] [address]- 2105 09 Aug, 2017 [facility] [address], [place] [address]- 1140 July, [facility] [address], [place] [address]- 5692 16 Jun, 2017 [facility] [address] [facility] [place] [id number] [place] [address]- 5216 13 Jun, 2017 [facility] [address], [place] [address]- 9846 10 Jun, 2017 Diabetes type 2, controlled E11.9 [facility] [address], [place] [address] Jun, [facility] [address], [place] [address]- 0021 May, [facility] [id number] [place] [address] 09288- 8314 May, [facility] [id number] [place] [address] 35617- 6280 May, [facility] [id number] [place] [address] 38219- 7247 May, Chronic congestive heart failure, unspecified congestive heart failure type I50.9 [facility] [id number] [place] [address] 36855- 4509 May, Diabetes type 2, controlled E11.9 ; BMI 50.0-59.9, adult Z68.43 ; Chronic congestive heart failure, unspecified heart failure type I50.9 ; Angina pectoris I20.9 ; Seasonal allergic rhinitis due to other allergic trigger J30.89 and Renal failure N19 [facility] [address] [place] [address] [id number] May, [facility] [id number] [place] [address] 19335- 7198 May, [facility] [id number] [place] [address] 85706- 8313 May, [facility] [address] [place] [address] 78886- 5934 May, [facility] [id number] [place] [address] 80368- 7495 May, [facility] [address] [place] [address] 43191- 6447 Apr, BMI 50.0-59.9, adult Z68.43 [facility] [address], [place] [address]- 9315 Apr, BMI 50.0-59.9, adult Z68.43 ; Post-procedural fever R50.82 and Bronchitis J40 [facility] [address] [facility] [place] [id number], [place] [address]- 0107 Apr, Chronic congestive heart failure, unspecified congestive heart failure type I50.9 [facility] [address] [facility] [place] [id number] [place] [address]- 4967 Jan, [facility] [id number] [place] [address] 22268- 2702 Jan, Diabetes type 2, controlled E11.9 [facility] [address] [facility] [place] [id number] [place] [address], [place] [address]- 4155 Jan, Neuropathy G62.9 [facility] [id number] [place] [address], [place] [address]- 0065 Jan, [facility] [id number] [place] [address] 74081- 8152 Jan, [facility] [id number] [place] [address] 48268- 0508 Jan, [facility] [address] [place] [address] 36927- 3011 Jan, [facility] [id number] [place] [address] 76065- 2001 Jan, [facility] [address], [place] [address]- 0604 Dec, [facility] [address], [place] [address]- 7771 Dec, [facility] [address], [place] [address]- 5645 Dec, Diabetes type 2, controlled E11.9 [facility] [address], [place] [address]- 6591 Dec, [facility] [id number], [place] [address]- 7557 Dec, [facility] [id number], [place] [address]- 3375 Dec, Chronic congestive heart failure, unspecified congestive heart failure type I50.9 [facility] [address], [place] [address]- 4484 Dec, [facility] [address], [place] [address]- 6971 Dec, [facility] [id number] [place] [address] 72486- 3507 Nov, Chronic congestive heart failure, unspecified congestive heart failure type I50.9 [facility] [id number] [place] [address] 64406- 2151 Nov, Chronic congestive heart failure, unspecified congestive heart failure type I50.9 [facility] [address], [place] [address]- 1410 Nov, [facility] [id number] [place] [address] 74475- 0692 Oct, [facility] [address] [place] [address] 07494- 6007 Oct, [facility] [address] [place] [address] 99524- 6046 Oct, Chronic congestive heart failure, unspecified congestive heart failure type I50.9 [facility] [address], [place] [address]- 5471 Oct, [facility] [address], [place] [address]- 2980 Oct, Pneumonia of both lungs due to infectious organism, unspecified part of lung J18.9 [facility] [address], [place] [address]- 0719 Oct, [facility] [address], [place] [address]- 5072 Oct, Diabetes type 2, controlled E11.9 [facility] [address], [place] [address]- 5793 Oct, Diabetes type 2, controlled E11.9 [facility] [id number] [place] [address] 39400- 7886 Sep, [facility] [id number] [place] [address] 94193 2546 Sep, Neuropathy G62.9 [facility] [id number] [place] [address] 44177 2546 Aug, Intra-dialytic hypotension I95.3 [facility] [id number] [place] [address], [place] [address] 2546 July, [facility] [id number] [place] [address] 17039- 5526 July, [facility] [id number] [place] [address] 56561- 5696 July, [facility] [id number] [place] [address] 14253- 5218 July, Amput below knee, unilat S88.119A [facility] [id number] [place] [address] 44693- 2326 May, [facility] [address] [place] [address] 94155- 3909 May, Neuropathy G62.9 [facility] [address], [place] [address] 2546 May, [facility] [address], [place] [address] 2546 May, [facility] [id number] [place] [address] 52016 2546 May, [facility] [address], [place] [address] 2546 May, [facility] [id number] [place] [address] 99836- 9778 May, Neuropathy G62.9 [facility] [address] [facility] [place] [id number] [place] [address]- 7777 Apr, [facility] [address] [place] [address]- 2453 Apr, [facility] [id number] [place] [address]- 3552 Apr, Diabetes type 2, controlled E11.9 and Renal failure N19 [facility] [address] [facility] [place] [id number] [place] [address] -5804 Apr, [facility] [id number] [place] [address], [place] [address]- 8900 Apr, [facility] [id number] [place] [address], [place] [address]- 7600 Mar, [facility] [id number] [place] [address], [place] [address]- 4651 Mar, [facility] [address] [place] [address]- 9247 Mar, [facility] [id number] [place] [address], [place] [address]- 4974 Mar, [facility] [address] [place] [address]- 2588 Mar, [facility] [address] [place] [address]- 6693 Jan, Localized edema R60.0 [facility] [id number] [place] [address]- 1168 Jan, [facility] [id number] [place] [address]- 4372 Jan, [facility] [address] [place] [address]- 6078 Jan, [facility] [address], [place] [address]- 2491 Jan, [facility] [address], [place] [address]- 3413 Jan, [facility] [address] [place] [address] 30326- 9882 Jan, [facility] [id number] [place] [address] 46167- 7165 Dec, Diabetes type 2, controlled E11.9 and Chronic nonintractable headache, unspecified headache type R51 [facility] [address] [place] [address] 76995- 1073 Dec, [facility] [id number] [place] [address] 13055- 5989 Dec, [facility] [id number] [place] [address] 14312- 9739 Nov, [facility] [id number] [place] [address] 20475- 3695 Nov, [facility] [address] [place] [address] 34695- 8057 Oct, [facility] [id number] [place] [address] 37584- 0791 Oct, Migraine without status migrainosus, not intractable, unspecified migraine type G43.909 [facility] [address] [place] [address] 93969- 2412 Oct, [facility] [address] [place] [address] 69134- 6461 Sep, Amput below knee, unilat S88.119A and Neuropathy G62.9 [facility] [id number] [place] [address] 49458- 6067 Sep, [facility] [address] [place] [address] 55754- 8051 Sep, [facility] [id number] [place] [address]- 6496 Sep, [facility] [address] [facility] [place] [id number] [place] [address]- 7883 Aug, [facility] [address] [facility] [place] [id number] [place] 0386 Aug, [facility] [address] [facility] [place] [id number]- 2813 Aug, Diabetes type 2, controlled E11.9 [facility] [address] [facility]] [id number] [place] [address]- 3846 Aug, [facility] [address] [facility] [place] [id number] [place] [address]- 8350 Jun, Diabetes type 2, controlled E11.9 and Neuropathy G62.9 [facility] [address] [place] [address]- 7449 Jun, [facility] [address] [facility] [id number] [place] [address]- 5778 Jun, [facility] [address] [place] [address]- 6402 Jun, [facility] [address] [place] [address]- 8721 Jun, [facility] [id number] [place] [address]- 1620 May, [facility] [address] [facility] [id number], [place] [address]- 4046 May, Diabetes type 2, controlled E11.9 [facility] [id number] [place] [address]- 9513 May, [facility] [address] [facility] [id number] [place] [address]- 6957 May, [facility] [id number] 3762 May, [facility] [address], [place] [address]- 5353 May, [facility] [address] [place] [address]- 4996 May, [facility] [address], [place] [address]- 1696 May, [facility] [id number] [place] [address], [place] [address] 2546 May, [facility] [address], [place] [address]- 4846 May, COPD (chronic obstructive pulmonary disease) J44.9 [facility] [address], [place] [address]- 1957 May, [facility] [address], [place] [address]- 6781 May, [facility] [address], [place] [address]- 2371 May, [facility] [address], [place] [address]- 6651 May, [facility] [address], [place] [address]- 4965 May, [facility] [address], [place] [address]- 5923 May, Renal failure N19 and Pneumonia, organism unspecified, unspecified laterality, unspecified part of lung J18.9 [facility] [address], [place] [address]- 0403 Apr, [facility] [address], [place] [address]- 4541 Apr, [facility] [address], [place] [address]- 2257 Apr, [facility] [id number] [place] [address]- 3143 Apr, Diabetes mellitus 250.00 [facility] [address] [id number] [place] [address]- 4915 14 Apr, 2015 [facility] [address] [id number] [place] [address]- 6764 14 Apr, 2015 [facility] [address] [id number] [place] [address], [place] [address]- 5556 Apr, [facility] [address] [id number] [place] [address]- 9760 Apr, [facility] [address] [id number] [place] [address], [place] [address]- 2841 31 Mar, 2015 [facility] [address] [place] [address]- 6408 Mar, [facility] [address] [place] [address]- 4088 Mar, [facility] [id number] [place] [address]- 3875 16 Mar, 2015 Renal failure N19 [facility] [address] [place] [address]- 8055 14 Mar, 2015 [facility] [id number] [place] [address]- 2565 Mar, [facility] [address] [facility] [id number] [place] [address]- 0754 04 Mar, 2015 [facility] [address] [facility] [id number] [place] [address]- 1691 24 Jan, 2015 [facility] [address] [facility] [id number] [place] [address]- 8662 18 Jan, 2015 [facility] [address] [facility] [id number] [place]- 9656 17 Jan, 2015 [facility] [address], [place] [address]- 3095 Jan, [facility] [address] [facility] [id number] [place] [address]- 9733 Dec, [facility] [place] [facility] [address] [facility] [id number], [place] [address] Dec, [facility] [place] [facility] [id number] [place] [address] Dec, [facility] [address] [facility] [place] [place] [id number] [place] [address] Nov, [facility] [address] [facility] [place]] [id number] [place] [address], [place] [address] Nov, [facility] [id number] [place] [address], [place] [address]- [address] Nov, [facility] [id number] [place] [address] Oct, [facility] [id number] [address] Oct, [facility] [id number] [place] [address] Oct, Renal failure 586 and Obesity 278.00 [facility] [id number] [address] Oct, [facility] [place] [facility] [id number], [place] [address] Oct, [facility] [place] [facility] [address] [facility] [place] [id number], [place] [address] Oct, [facility] [place] [facility] [address] [address] Sep, [facility] [place] [facility] [address] [facility] [place]] [id number], [place] [address] Sep, [facility] [address], [place] [address] Sep, Diabetes mellitus 250.00 and Congestive heart failure, unspecified 428.0 [facility] [address] [id number] [place] [address] Aug, [facility] [address] [facility] [place]] [id number], [place] [address] Aug, [facility] [address] [facility] [place]] [id number] [place] [address] Aug, [facility] [address] [facility] [place]] [id number], [place] [address] July, [facility] [address] [id number] [place] [address] July, [facility] [id number] [place] [address] July, Heart murmur, systolic 785.2 [facility] [id number] [place] [address] July, [facility] [id number], [place] [address] July, [facility] [id number] [place] [address] Jun, [facility] [id number], [place] [address] Jun, [facility] [id number] [address] May, [facility] [address] [id number], [place] [address] May, [facility] [id number] [place] [address] May, [facility] [address] [facility] 2[facility] [id number], [place] [address] May, [facility] [address] [id number], [place] [address] 16 May, 2014 [facility] [place] [facility] [address] [id number] [place] [address] 8604 16 May, 2014 [facility] [place] [facility] [address] [facility] [id number] [place] [address]- 8261 May, 2014 [facility] [place] [facility] [address] [facility] [id number] [place] [address]- 2654 10 May, 2014 [facility] [place] [facility] [address] [facility] [id number] [place] [address]- 8329 May, [facility] [place] [facility] [address] [facility]] [id number] [place] [address]- 7791 May, [facility] [place] [facility] [address] [facility]] [id number] [place] [address]- 9957 May, 2014 [facility] [place] [facility] [address] [facility]] [id number] [place] [address]- 1630 May, 2014 [facility] [place] [facility] [address] [facility] [id number] [place] [address]- 1985 May, 2014 [facility] [place] [facility] [address] [facility]] [id number] [place] [address]- 6431 May, 2014 [facility] [place] [facility] [address] [facility]] [id number] [place] [address]- 8384 May, 2014 [facility] [place] [facility] [address] [facility]] [id number] [place] [address]- 3465 May, 2014 [facility] [place] [facility] [address] [facility] 2] [id number], [place] [address]- 2833 May, 2014 [facility] [place] [facility] [address] [facility]] [id number] [place] [address]- 0800 May, 2014 [facility] [place] [facility] [address] [facility] 2] [id number], [place] [address] 5274 May, 2014 [facility] [place] [facility] [address] [facility] 2] [id number], [place] [address] 9405 May2014 [facility] [place] [facility] [address] [id number] [place] [address]- 1471 May, 2014 [facility] [place] [facility] [address] [id number] [place] [address]- 4108 May, 2014 [facility] [place] [facility] [address] [id number] [place] [address]- 4444 May, 2014 [facility] [place] [facility] [address] [id number] [place] [address]- 1335 May, 2014 [facility] [place] [facility] [address] [id number] [place] [address]- 6423 May, [facility] [place] [facility] [address] [id number] [place] [address]- 0071 May, [facility] [place] [facility] [address] [id number] [place] [address]- 1167 Apr, [facility] [place] [facility] [address] [id number] [place] [address]- 4397 Apr, [facility] [place] [facility] [address] [id number] [place] [address]- 4044 Apr, [facility] [place] [facility] [address] [id number] [place] [address]- 4405 Apr, [facility] [place] [facility] [address] [id number], [place] [address] 7729 Apr, [facility] [place] [facility] [address] [id number], [place] [address]- 0805 Apr, [facility] [place] [facility] [address] [id number] [place] [address]- 0130 Apr, [facility] [place] [facility] [address] [id number], [place] [address] 5523 Apr, [facility] [place] [facility] [address] [id number], [place] [address]- 4043 Mar, [facility] [place] [facility] [address] [id number], [place] [address]- 0647 Mar, [facility] [place] [facility] [address] [id number] [place] [address]- 3056 Mar, [facility] [place] [facility] [address] [id number] [place] [address]- 7466 Mar, [facility] [place] [facility] [address] [id number] [place] [address]- 4126 Mar, [facility] [place] [facility] [address] [id number] [place] [address]- 0210 Mar, [facility] [place] [facility] [address] [id number] [place] [address]- 9023 Mar, [facility] [place] [facility] [address] [id number] [place] [address]- 2356 Mar, [facility] [place] [facility] [address] [id number] [place] [address]- 1441 Mar, [facility] [place] [facility] [address] [id number] [place] [address]- 2254 Mar, [facility] [place] [facility] [address] [id number] [place] [address]- 5349 Mar, [facility] [place] [facility] [address] [id number] [place] [address]- 1967 Mar, [facility] [place] [facility] [address] [id number] [place] [address]- 9843 Mar, [facility] [place] [facility] [address] [id number] [place] [address]- 9652 Mar, [facility] [place] [facility] [address] [id number] [place] [address]- 9650 Mar, [facility] [place] [facility] [address] [id number] [place] [address]- 7134 10 Mar, 2014 [facility] [place] [facility] [address] [id number] [place] [address]- 4267 Mar, [facility] [place] [facility] [address] [id number] [place] [address]- 0658 Mar, [facility] [place] [facility] [address] [id number] [place] [address]- 2213 Mar, [facility] [place] [facility] [address] [id number] [place] [address] Mar, [facility] [place] [facility] [address] [id number] [place] [address]- 5705 Mar, [facility] [place] [facility] [address] [id number] [place] [address]- 1559 Mar, [facility] [place] [facility] [address] [id number] [place] [address]- 0063 Jan, [facility] [place] [facility] [address] [id number] [place] [address]- 7628 Jan, [facility] [place] [facility] [address] [id number] [place] [address]- 4026 Jan, [facility] [place] [facility] [address] [id number] [place] [address]- 2027 Jan, [facility] [place] [facility] [address] [id number] [place] [address]- 4033 Jan, [facility] [place] [facility] [address] [id number] [place] [address]- 8476 Jan, [facility] [place] [facility] [address] [id number] [place] [address]- 7731 Jan, [facility] [place] [facility] [address] [id number] [place] [address]- 4932 Jan, [facility] [place] [facility] [address] [id number] [place] [address]- 4707 Jan, [facility] [place] [facility] [address] [id number] [place] [address]- 9794 Jan, [facility] [place] [facility] [address] [id number] [place] [address]- 3977 Jan, [facility] [place] [facility] [address] [id number] [place] [address]- 3499 Jan, [facility] [place] [facility] [address] [id number] [place] [address]- 7331 Jan, [facility] [place] [facility] [address] [id number] [place] [address]- 6724 Jan, [facility] [place] [facility] [address] [id number] [place] [address]- 8698 Jan, [facility] [place] [facility] [address] [id number] [place] [address]- 3899 Jan, [facility] [place] [facility] [address] [id number] [place] [address]- 8285 Jan, [facility] [place] [facility] [address] [id number] [place] [address]- 6719 Jan, [facility] [place] [facility] [address] [id number] [place] [address]- 1153 Jan, [facility] [place] [facility] [address] [id number] [place] [address]- 8895 Jan, [facility] [place] [facility] [address] [id number] [place] [address]- 9004 Dec, [facility] [place] [facility] [address] [id number], [place] [address]- 7918 Dec, [facility] [place] [facility] [address] [id number], [place] [address]- 1194 Dec, [facility] [place] [facility] [address] [id number] [place] [address]- 6758 Dec, [facility] [place] [facility] [address] [id number], [place] [address]- 0360 Dec, [facility] [place] [facility] [address] [id number], [place] [address]- 9125 Dec, [facility] [place] [facility] [address] [id number] [place] [address]- 9204 14 Dec, 2013 [facility] [place] [facility] [address] [id number] [place] [address]- 3363 10 Dec, 2013 [facility] [place] [facility] [address] [id number] [place] [address]- 6269 10 Dec, 2013 [facility] [place] [facility] [address] [id number] [place] [address]- 1364 08 Dec, 2013 [facility] [place] [facility] [address] [id number] [place] [address]- 2095 08 Dec, 2013 [facility] [place] [facility] [address] [id number] [place] [address]- 1914 Dec, [facility] [place] [facility] [address] [id number] [place] [address]- 2263 Dec, [facility] [place] [facility] [address] [id number] [place] [address]- 8943 Dec, [facility] [place] [facility] [address] [id number] [place] [address]- 7232 Dec, [facility] [place] [facility] [address] [id number] [place] [address]- 4098 22 Nov, 2013 [facility] [place] [facility] [address] [id number] [place] [address]- 3160 22 Nov, 2013 [facility] [place] [facility] [address] [id number] [place] [address]- 1579 19 Nov, 2013 [facility] [place] [facility] [address] [id number] [place] [address]- 254 19 Sep, 2013 [facility] [place] [facility] [address] [id number] [place] [address] 2548 13 Nov, 2013 [facility] [place] [facility] [address] [id number] [place] [address]- 2540 13 Nov, 2013 [facility] [place] [facility] [address] [id number] [place] [address]- 4578 Nov, 2013 [facility] [place] [facility] [address] [id number] [place] [address]- 1623 Nov, 2013 [facility] [place] [facility] [address] [id number] [place] [address]- 9887 Nov, 2013 [facility] [place] [facility] [address] [id number] [place] [address]- 8934 Nov, 2013 [facility] [place] [facility] [address] [id number] [place] [address]- 3722 Nov, 2013 [facility] [place] [facility] [address] [id number] [place] [address]- 7030 Nov, [facility] [place] [facility] [address] [id number] [place] [address]- 6629 Nov, [facility] [place] [facility] [address] [id number] [place] [address]- 2606 Oct, [facility] [place] [facility] [address] [id number] [place] [address]- 7865 Oct, [facility] [place] [facility] [address] [id number] [place] [address]- 2099 Oct, [facility] [place] [facility] [address] [id number] [place] [address]- 8210 Oct, [facility] [place] [facility] [address] [id number] [place] [address]- 9911 Oct, [facility] [place] [facility] [address] [id number] [place] [address]- 5405 Sep, [facility] [place] [facility] [address] [id number] [place] [address]- 5192 Sep, [facility] [place] [facility] [address] [id number] [place] [address]- 3274 Sep, [facility] [place] [facility] [address] [id number] [place] [address]- 3641 Sep, [facility] [place] [facility] [address] [id number] [place] [address]- 4729 Aug, [facility] [place] [facility] [address] [id number] [place] [address]- 1912 Aug, [facility] [place] [facility] [address] [id number] [place] [address]- 8044 Aug, [facility] [place] [facility] [address] [id number] [place] [address]- 4664 Aug, [facility] [place] [facility] [address] [id number] [place] [address]- 3382 Aug, [facility] [place] [facility] [address] [id number] [place] [address]- 5250 Aug, [facility] [place] [facility] [address] [id number] [place] [address]- 8264 Aug, [facility] [place] [facility] [address] [id number] [place] [address]- 4210 Aug, [facility] [place] [facility] [address] [id number] [place] [address]- 5914 Aug, [facility] [place] [facility] [address] [id number] [place] [address]- 4214 Aug, [facility] [place] [facility] [address] [id number] [place] [address]- 0744 Aug, [facility] [place] [facility] [address] [id number] [place] [address]- 1630 Aug, [facility] [place] [facility] [address] [id number] [place] [address]- 1901 Aug, [facility] [place] [facility] [address] [id number] [place] [address]- 0915 Aug, [facility] [place] [facility] [address] [id number] [place] [address]- 3978 Aug, [facility] [place] [facility] [address] [id number] [place] [address]- 6240 Aug, [facility] [place] [facility] [address] [id number] [place] [address]- 3899 Aug, [facility] [place] [facility] [address] [id number] [place] [address]- 7924 Aug, [facility] [place] [facility] [address] [id number] [place] [address]- 5598 Aug, [facility] [place] [facility] [address] [id number] [place] [address]- 2439 Aug, [facility] [place] [facility] [address] [id number] [place] [address]- 4668 Aug, [facility] [place] [facility] [address] [id number] [place] [address]- 5865 Aug, [facility] [place] [facility] [address] [id number] [place] [address]- 1237 Aug, [facility] [place] [facility] [address] [id number] [place] [address]- 4459 Aug, [facility] [place] [facility] [address] [id number] [place] [address]- 0773 July, [facility] [place] [facility] [address] [id number] [place] [address]- 2949 July, [facility] [place] [facility] [address] [id number] [place] [address]- 2573 July, [facility] [place] [facility] [address] [id number] [place] [address]- 4192 July, [facility] [place] [facility] [address] [id number] [place] [address]- 1571 July, [facility] [place] [facility] [address] [id number] [place] [address]- 4675 July, [facility] [place] [facility] [address] [id number] [place] [address]- 6595 Jun, [facility] [place] [facility] [address] [id number] [place] [address]- 5533 Jun, [facility] [place] [facility] [address] [id number] [place] [address]- 9917 Jun, [facility] [place] [facility] [address] [id number] [place] [address]- 1530 Jun, [facility] [place] [facility] [address] [id number] [place] [address]- 3987 Jun, [facility] [place] [facility] [address] [id number] [place] [address]- 3274 Jun, [facility] [place] [facility] [address] [id number] [place] [address]- 2615 Jun, [facility] [place] [facility] [address] [id number] [place] [address]- 7296 Jun, [facility] [place] [facility] [address] [id number] [place] [address]- 3735 Jun, [facility] [place] [facility] [address] [id number] [place] [address]- 4639 Jun, [facility] [place] [facility] [address] [id number] [place] [address]- 9820 Jun, [facility] [place] [facility] [address] [id number] [place] [address]- 3036 Jun, [facility] [place] [facility] [address] [id number] [place] [address]- 4273 Jun, [facility] [place] [facility] [address] [id number], [place] [address]- 3507 Jun, [facility] [place] [facility] [address] [id number] [place] [address]- 5580 Jun, [facility] [place] [facility] [address] [id number] [place] [address]- 7635 May, [facility] [place] [facility] [address] [id number] [place] [address]- 0224 May, [facility] [place] [facility] [address] [id number], [place] [address]- 0977 May, [facility] [place] [facility] [address] [id number] [place] [address]- 3660 May, [facility] [place] [facility] [address] [id number] [place] [address]- 9574 May, [facility] [place] [facility] [address] [facility] [id number] [place] [address]- 4947 May, [facility] [place] [facility] [address] [facility] 2] [id number] [place] [address]- 5305 May, [facility] [place] [facility] [address] [id number] [place] [address]- 9363 May, [facility] [place] [facility] [address] [facility] 2] [id number] [place] [address]- 5590 May, [facility] [place] [facility] [address] [id number] [place] [address]- 9353 May, [facility] [place] [facility] [address] [facility] 2] [id number] [place] [address]- 6555 May, [facility] [place] [facility] [address] [facility] 2] [id number] [place] [address]- 6190 May, [facility] [place] [facility] [address] [facility] 2] [id number] [place] [address]- 7658 May, [facility] [place] [facility] [address] [facility] 2] [id number] [place] [address]- 5816 May, [facility] [place] [facility] [address] [facility] 2] [id number], [place] [address]- 9996 May, [facility] [place] [facility] [address] [id number] [place] [address]- 1592 May, [facility] [place] [facility] [address] [facility] 2] [id number], [place] [address]- 5275 May, [facility] [place] [facility] [address] [facility]NOTE 2] [id number], [place] [address]- 2256 Apr, [facility] [place] [facility] [address] [id number] [place] [address]- 2407 Apr, [facility] [place] [facility] [address] [id number] [place] [address]- 1679 Apr, [facility] [place] [facility] [address] [id number] [place] [address]- 8110 Apr, [facility] [place] [facility] [address] [id number] [place] [address]- 2405 Apr, [facility] [address] [id number] [place] [address]- 1376 Apr, [facility] [place] [facility] [address] [id number] [place] [address]- 0342 Apr, [facility] [address] [id number] [place] [address]- 2023 Apr, [facility] [address] [id number] [place] [address]- 9918 Apr, [facility] [place] [facility] [address] [id number] [place] [address]- 2777 Apr, [facility] [place] [facility] [address] [id number] [place] [address]- 3167 Apr, [facility] [place] [facility] [address] [id number] [place] [address] Apr, [facility] [place] [facility] [address] [id number] [place] [address] Apr, [facility] [place] [facility] [address] [id number] [place] [address] Apr, [facility] [place] [facility] [address] [id number] [place] [address] Apr, [facility] [place] [facility] [address] [id number] [place] [address] Apr, [facility] [place] [facility] [address] [id number] [place] [address] 30 Mar, 2012 [facility] [address] [id number] [place] [address] 30 Mar, 2012 [facility] [place] [facility] [address] [id number] [place] [address] 30 Mar, 2013 [facility] [place] [facility] [address] [id number] [place] [address] 30 Mar, 2013 [facility] [place] [facility] [address] [id number] [place] [address] 18 Mar, 2013 [facility] [place] [facility] [address] [id number] [place] [address] 1684 18 Mar, 2013 [facility] [place] [facility] [address] [id number] [place] [address] 18 Mar, 2013 [facility] [address] [id number] [place] [address] 1570 18 Mar, 2013 [facility] [place] [facility] [address] [id number] [place] [address] 9831 17 Mar, 2013 [facility] [place] [facility] [address] [id number] [place] [address]329 17 Mar, 2013 [facility] [place] [facility] [address] [id number] [place] [address]- 9469 05 Mar, 2013 [facility] [place] [facility] [address] [id number], [place] [address] 05 Mar, 2013 [facility] [place] [facility] [address] [id number], [place] [address] 04 Mar, 2013 [facility] [place] [facility] [address] [id number] [place] [address] 89[address] Mar, [facility] [place] [facility] [address] [id number] [place] [address] 1374 04 Mar, 2013 [facility] [place] [facility] [address] [id number] [place] [address] 04 Mar, 2013 [facility] [place] [facility] [address] [id number] [place] [address] 2544 Mar, [facility] [address] [id number] [place] [address]40 Mar, [facility] [place] [facility] [address] [id number] [place] [address] Jan, [facility] [address] [id number] [place] [address] Jan, [facility] [place] [facility] [address] [id number] [place] [address]139 Jan, [facility] [address] [id number] [place] [address] Jan, [facility] [address] [id number] [place] [address] Nov, [facility] [place] [facility] [address] [id number] [place] [address] Nov, [facility] [address] [id number] [place] [address] Nov, [facility] [place] [facility] [address] [id number] [place] [address] Nov, [facility] [address] [id number] [place] [address] Oct, [facility] [place] [facility] [address] [id number] [place] [address]49 Oct, [facility] [place] [facility] [address] [id number] [place] [address] Oct, [facility] [place] [facility] [address] [id number] [place] [address] Oct, [facility] [place] [facility] [address] [id number] [place] [address] Sep, [facility] [place] [facility] [address] [id number] [place] [address]17 Sep, [facility] [address] [id number] [place] [address]- [address] Sep, [facility] [place] [facility] [address] [id number] [place] [address]- 8024 Sep, [facility] [place] [facility] [address] [id number] [place] [address]- 6[address] Sep, [facility] [place] [facility] [address] [id number] [place] [address]- 2892 Sep, [facility] [place] [facility] [address] [id number] [place] [address] Sep, [facility] [place] [facility] [address] [id number] [place] [address]- [address]235 Sep, [facility] [place] [facility] [address] [id number] [place] [address]- 0[address] Sep, [facility] [place] [facility] [address] [id number] [place] [address] 67[address] Aug, [facility] [place] [facility] [address] [id number] [place] [address]- [address]95 Aug, [facility] [place] [facility] [address] [id number] [place] [address]17 Aug, [facility] [place] [facility] [address] [id number] [place] [address] 4500 Aug, [facility] [place] [facility] [address] [id number] [place] [address]- 8767 July, [facility] [place] [facility] [address] [id number] [place] [address] 5334 July, [facility] [place] [facility] [address] [id number] [place] [address]- 2052 July, [facility] [place] [facility] [address] [id number] [place] [address] July, [facility] [place] [facility] [address] [id number], [place] [address] July, [facility] [id number] [address] [address] July, [facility] [id number] [address] July, [facility] [id number], [place] [address] Jun, [facility] [id number], [place] [address] May, [facility] [id number], [place] [address] May, [facility] [id number], [place] [address] 3060 May, [facility] [id number], [place] [address]67 May, [facility] [id number], [place] [address] May, [facility] [id number] [address] May, [facility] [id number], [place] [address] May, [facility] [address] [id number] [address] [address] May, IMMUNIZATIONS No Known Immunizations SOCIAL HISTORY Never Assessed REASON FOR VISIT PA PLAN OF CARE VITAL SIGNS MEDICATIONS No [...]
[2017-12-18 19:50] VITALS: BP 126/66
--- OUTSIDE RECORDS SUMMARY | 2017-12-18 19:50 | XMS REPORT ---
Author Author MCKENNA HEBERT Organization [facility] [place] Address [address] [place] [address] Care Team Providers Care Projection Camera Operator Name Role Phone MCKENNA HEBERT Unavailable PROBLEMS Type Condition ICD9-CM Code ZHF76-FM Code Onset Dates Condition Status SNOMED Code Problem Amput below knee, unilat S88.119A Active 63221587 Problem Chronic congestive heart failure, unspecified congestive heart failure type I50.9 Active 12716306 Problem Intra-dialytic hypotension I95.3 Active 731913089 Problem Cellulitis of right lower extremity L03.115 Active 851832938 Problem Diabetes type 2, controlled E11.9 Active 14182943 Problem Renal failure N19 Active 23540408 Problem Neuropathy G62.9 Active 311065803 Problem Primary insomnia F51.01 Active 9585259 Problem 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 Active 1616844 Problem Chronic congestive heart failure, unspecified heart failure type I50.9 Active 02286842 Problem Seasonal allergic rhinitis due to other allergic trigger J30.89 Active 784934140 Problem Other chronic pain G89.29 Active 69453825 Problem Angina pectoris I20.9 Active [id number] ALLERGIES No Information ENCOUNTERS Encounter Location Date Diagnosis [place] [id number] [place] [address]15- 4774 Oct, Diabetes type 2, controlled E11.9 ; Primary insomnia F51.01 and Bilateral headaches R51 [facility] [place] [address] [address] Oct, [place] [address] [place] [id number] [place] [address]2664- 5705 Sep, [facility] [id number] [id number] Sep, Dental examination Z01.20 and Dental caries K02.[address] [place] [address] [facility] [id number], [place] [address] 0[address] 13 Sep, 2017 [facility] [place] [address] [facility] [id number], [place] [address] Sep, [facility] [place] [address] [facility] [id number], [place] [address] 7[address] Sep, Other chronic pain G89.29 and Pain in right knee M25.561 [facility] [place] [address] [facility] [id number], [place] [address] 05 Sep, 2017 [facility] [place] [address] 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 [facility] [place] [id number] [place] [address] 28890- 2292 15 Aug, 2017 [facility] [place] [address], [place] [address] 6147 11 Aug, 2017 Diabetes type 2, controlled E11.9 and Acute pain of right knee M25.561 [facility] [place] [address], [place] [address] 7200 09 Aug, 2017 [facility] [place] [address], [place] [address] 9647 July, [facility] [place] [address], [place] [address] 0620 16 Jun, 2017 [facility] [place] [address] [facility] [id number] [place] [address]- 0519 13 Jun, 2017 [facility] [place] [address], [place] [address]- 7478 10 Jun, 2017 Diabetes type 2, controlled E11.9 [facility] [place] [address], [place] [address] 8662 Jun, [facility] [place] [address], [place] [address] 3246 May, [facility] [place] [id number] [place] [address] 40786- 1764 May, [facility] [place] [id number] [place] [address] 12776- 8599 May, [facility] [place] [id number] [place] [address] 09320- 9415 May, Chronic congestive heart failure, unspecified congestive heart failure type I50.9 [facility] [place] [id number] [place] [address] 03816- 3380 May, Diabetes type 2, controlled E11.9 ; BMI 50.0-59.9, adult Z68.43 ; Chronic congestive heart failure, unspecified heart failure type I50.9 ; Angina pectoris I20.9 ; Seasonal allergic rhinitis due to other allergic trigger J30.89 and Renal failure N19 [facility] [address] [place] [id number] May, [facility] [place] [id number] [place] [address] 02999- 9687 May, [facility] [place] [id number] [place] [address] 76657- 6604 May, [facility] [place] [id number] [place] [address] 66103- 0926 May, [facility] [place] [id number] [place] [address] 91827- 9665 May, [facility] [place] [address] [place] [address] 06734- 5280 Apr, BMI 50.0-59.9, adult Z68.43 [facility] [place] [address], [place] [address]- 7297 Apr, BMI 50.0-59.9, adult Z68.43 ; Post-procedural fever R50.82 and Bronchitis J40 [facility] [place] [address] [facility] [id number], [place] [address]3 Apr, Chronic congestive heart failure, unspecified congestive heart failure type I50.9 [facility] [place] [address] [facility] [id number] [place] [address]- 1554 Jan, [facility] [place] [address] [id number] [place] [address] 58890- 8014 Jan, Diabetes type 2, controlled E11.9 [facility] [place] [address] [facility] [id number] [place] [address], [place] [address]- 2408 Jan, Neuropathy G62.9 [facility] [place] [address] [id number] [place] [address], [place] [address]- 1975 Jan, [facility] [place] [id number] [place] [address] 51429- 4596 Jan, [facility] [place] [id number] [place] [address] 93774- 3519 Jan, [facility] [place] [id number] [place] [address] 02587- 5025 Jan, [facility] [place] [id number] [place] [address] 67764- 3528 Jan, [facility] [place] [address], [place] [address]- 3323 Dec, [facility] [place] [address], [place] [address]- 8767 Dec, [facility] [place] [address], [place] [address]- 0163 Dec, Diabetes type 2, controlled E11.9 [facility] [place] [address], [place] [address]- 2298 Dec, [facility] [place] [address] [id number], [place] [address]- 3459 Dec, [facility] [place] [id number] [address]- 4564 Dec, Chronic congestive heart failure, unspecified congestive heart failure type I50.9 [facility] [place] [address], [place] [address]- 6854 Dec, [facility] [place] [address], [place] [address]- 3750 Dec, [facility] [place] [id number] [place] [address] 73633- 3126 Nov, Chronic congestive heart failure, unspecified congestive heart failure type I50.9 [facility] [place] [id number] [place] [address] 93315- 2123 Nov, Chronic congestive heart failure, unspecified congestive heart failure type I50.9 [facility] [place] [address], [place] [address]- 3663 Nov, [facility] [place] [id number] [place] [address] 61418- 2557 Oct, [facility] [place] [id number] [place] [address] 00959- 3938 Oct, [facility] [place] [id number] [place] [address] 86853- 1978 Oct, Chronic congestive heart failure, unspecified congestive heart failure type I50.9 [facility] [place] [address], [place] [address]- 2047 Oct, [facility] [place] [address], [place] [address]- 9749 Oct, Pneumonia of both lungs due to infectious organism, unspecified part of lung J18.9 [facility] [place] [address], [place] [address]- 0150 Oct, [facility] [place] [address], [place] [address]- 8275 Oct, Diabetes type 2, controlled E11.9 [facility] [place] [id number] [address]- 7068 Oct, Diabetes type 2, controlled E11.9 [facility] [place] [id number] [place] [address] 40160- 9106 Sep, [facility] [place] [id number] [place] [address] 91383 2546 Sep, Neuropathy G62.9 [facility] [place] [id number] [place] [address] 15987 2546 Aug, Intra-dialytic hypotension I95.3 [facility] [place] [address] [id number] [place] [address], [place] [address] 2546 July, [facility] [place] [id number] [place] [address] 13785- 4406 July, [facility] [place] [id number] [place] [address] 84141- 2656 July, [facility] [place] [id number] [place] [address] 80539- 1314 July, Amput below knee, unilat S88.119A [facility] [place] [id number] [place] [address] 39195- 6966 May, [facility] [place] [address] [place] [address] 92990- 7736 May, Neuropathy G62.9 [facility] [place] [id number] [place] [address] 2546 May, [facility] [place] [address], [place] [address] 2546 May, [facility] [place] [id number] [place] [address] 69156 2546 May, [facility] [place] [address], [place] [address] 2546 May, [facility] [place] [id number] [place] [address] 65978- 5517 May, Neuropathy G62.9 [facility] [place] [address] [facility] [id number] [place] [address]- 3566 Apr, [facility] [place] [address] [place] [address]- 6575 Apr, [facility] [place] [id number] [place] [address]- 5704 Apr, Diabetes type 2, controlled E11.9 and Renal failure N19 [facility] [address] [facility] [id number] [place] [address] -8598 Apr, [facility] [place] [id number] [place] [address], [place] [address]- 7791 Apr, [facility] [place] [id number] [place] [address], [place] [address]- 9581 Mar, [facility] [place] [id number] [place] [address], [place] [address]- 6964 Mar, [facility] [place] [address] [place] [address]- 0010 Mar, [facility] [place] [id number] [place] [address], [place] [address]- 2439 Mar, [facility] [place] [address] [place] [address]- 8395 Mar, [facility] [place] [address] [place] [address]- 4152 Jan, Localized edema R60.0 [facility] [place] [id number] [place] [address]- 7268 Jan, [facility] [place] [id number] [place] [address]- 6068 Jan, [facility] [place] [address] [place] [address]- 9155 Jan, [facility] [place] [address], [place] [address]- 9499 Jan, [facility] [place] [address], [place] [address]- 1052 Jan, [facility] [place] [id number] [place] [address] 23149- 7150 Jan, [facility] [place] [id number] [place] [address] 99569- 2580 Dec, Diabetes type 2, controlled E11.9 and Chronic nonintractable headache, unspecified headache type R51 [facility] [place] [address] [place] [address] 29719- 8923 Dec, [facility] [place] [id number] [place] [address] 53473- 9086 Dec, [facility] [place] [id number] [place] [address] 02328- 9906 Nov, [facility] [place] [id number] [place] [address] 84779- 4011 Nov, [facility] [place] [address] [place] [address] 96215- 0285 Oct, [facility] [place] [id number] [place] [address] 68557- 5546 Oct, Migraine without status migrainosus, not intractable, unspecified migraine type G43.909 [facility] [place] [address] [place] [address] 25155- 1728 Oct, [facility] [place] [address] [place] [address] 49276- 4351 Sep, Amput below knee, unilat S88.119A and Neuropathy G62.9 [facility] [place] [id number] [place] [address] 60511- 1611 Sep, [facility] [place] [id number] [place] [address] 95684- 5549 Sep, [facility] [place] [id number] [place] [address]- 7343 Sep, [facility] [place] [address] [facility] [id number] [place] [address]- 8477 Aug, [facility] [place] [address] [facility] [id number] [place]- 5294 Aug, [facility] [place] [address] [facility] [id number]- 8420 Aug, Diabetes type 2, controlled E11.9 [facility] [place] [address] [facility] [id number] [place] [address]- 5135 Aug, [facility] [place] [address] [facility] [id number] [place] [address]- 8182 Jun, Diabetes type 2, controlled E11.9 and Neuropathy G62.9 [facility] [place] [address] [place] [address]- 7058 Jun, [facility] [place] [address] [facility] [id number] [place] [address]- 4528 Jun, [facility] [place] [address] [place] [address]- 3321 Jun, [facility] [place] [address] [place] [address]- 4369 Jun, [facility] [place] [address] [id number] [place] [address]- 5536 May, [facility] [place] [address] [facility] [id number], [place] [address]- 3413 May, Diabetes type 2, controlled E11.9 [facility] [place] [address] [id number] [place] [address]- 1653 May, [facility] [place] [address] [facility] [id number] [place] [address]- 4071 May, [facility] [place] [id number]- 0091 May, [facility] [place] [address], [place] [address]- 2065 May, [facility] [place] [address] [place] [address]- 6016 May, [facility] [place] [address], [place] [address]- 4156 May, [facility] [place] [id number] [place] [address], [place] [address] 2546 May, [facility] [place] [address], [place] [address]- 7645 May, COPD (chronic obstructive pulmonary disease) J44.9 [facility], [place], [facility] [address] [address] May, [facility], [place], [facility] [id number] [address] May, [facility], [place], [facility] [address] [address] May, [facility], [place], [facility] [address] [address] May, [facility], [place], [facility] [address] [address] May, [facility], [place], [facility] [address] [address] May, Renal failure N19 and Pneumonia, organism unspecified, unspecified laterality, unspecified part of lung J18.9 [facility], [place], [facility] [address] [address] Apr, [facility], [place], [facility] [id number] [place] [address] Apr, [facility], [place], [facility] [address] [place] [address] Apr, [facility], [place], [facility] [id number] [place] [address] Apr, Diabetes mellitus 250.00 [facility] [address] [id number] [place] [address] 14 Apr, 2015 [facility] [address] [id number] [place] [address] 14 Apr, 2015 [facility] [address] [id number] [place] [address], [place] [address] Apr, [facility] [address] [id number] [place] [address] Apr, [facility] [address] [id number] [place] [address], [place] [address] 31 Mar, 2015 [facility] [address] [place] [address] Mar, [facility] [id number] [place] [address] Mar, [facility] [address] [id number] [place] [address] 16 Mar, 2015 Renal failure N19 [facility] [address] [place] [address] 14 Mar, 2015 [facility] [address] [id number] [place] [address] Mar, [facility] [address] [facility] [id number] [place] [address] 04 Mar, 2015 [facility] [address] [facility] [id number] [place] [address] 6265 24 Jan, 2015 [facility] [address] [facility] [id number] [place] [address] 6521 18 Jan, 2015 [facility] [address] [facility] [id number] [place] [address] 17 Jan, 2015 [facility] [address] [address] Jan, [facility] [address] [facility] [id number] [place] [address] 6926 Dec, [facility] [place] [facility] [address] [facility] [id number], [place] [address] Dec, [facility] [place] [facility] [address]65[address] [place] [address] 8[address] Dec, [facility] [address] [facility] [id number] [place] [address]- 2298 Nov, [facility] [address] [facility] [id number] [place] [address], [place] [address]- 6250 Nov, [facility] [id number] [place] [address], [place] [address]- 9600 Nov, [facility] [id number] [place] [address]- 4491 Oct, [facility] [address], [place] [address] 3920 Oct, [facility] [id number] [place] [address]- 7553 Oct, Renal failure 586 and Obesity 278.00 [facility] [address] [id number], [place] [address] 4[address] Oct, [facility] [place] [facility] [address], [place] [address] 9060 Oct, [facility] [place] [facility] [address] [facility] [id number], [place] [address]- 4626 Oct, [facility] [place] [facility] [address], [place] [address] 3478 Sep, [facility] [place] [facility] [address] [facility] [id number], [place] [address] Sep, [facility] [address], [place] [address] 6965 Sep, Diabetes mellitus 250.00 and Congestive heart failure, unspecified 428.0 [facility] [place] [address] [id number] [place] [address] 2878 Aug, [facility] [place] [address] [facility] [id number], [place] [address] Aug, [facility] [place] [address] [facility] [id number] [place] [address] 8601 Aug, [facility] [place] [address] [facility] [id number], [place] [address]- 1287 July, [facility] [place] [address] [id number] [place] [address] 2750 July, [facility] [place] [address]65[address] [place] [address]- 9710 July, Heart murmur, systolic 785.2 [facility] [place] [address]65100[facility] [place] [address]- 9906 July, [facility] [place] [address] [id number], [place] [address] 2580 July, [facility] [place] [address]00565100[facility] [place] [address]- 0981 Jun, [facility] [place] [address]005[address], [place] [address]- 7950 Jun, [facility] [place] [address] [id number], [place] [address]- 8816 May, [facility] [place] [address] [id number], [place] [address]- 5565 May, [facility] [place] [address]00565[address] [place] [address]- 2774 May, [facility] [place] [address] [facility] [id number], [place] [address]- 9849 May, [facility] [place] [address] [id number], [place] [address]- 8483 16 May, 2014 [facility] [place] [facility] [address] [id number] [place] [address]- 4515 16 May, 2014 [facility] [place] [facility] [address] [facility] [id number] [place] [address]- 7651 May, 2014 [facility] [place] [facility] [address] [facility] [id number] [place] [address]- 1195 10 May, 2014 [facility] [place] [facility] [address] [facility] [id number] [place] [address]- 0001 May, [facility] [place] [facility] [address] [facility] [id number] [place] [address]- 3677 May, [facility] [place] [facility] [address] [facility] [id number] [place] [address]- 5675 May, 2014 [facility] [place] [facility] [address] [facility] [id number] [place] [address]- 8385 May, 2014 [facility] [place] [facility] [address] [facility] [id number] [place] [address]- 1049 May, 2014 [facility] [place] [facility] [address] [facility] [id number] [place] [address]- 2342 May, 2014 [facility] [place] [facility] [address] [facility] [id number] [place] [address]- 8655 May, 2014 [facility] [place] [facility] [address] [facility] [id number] [place] [address]- 3109 May, 2014 [facility] [place] [facility] [address] [facility] [id number], [place] [address]- 3590 May, 2014 [facility] [place] [facility] [address] [facility] [id number] [place] [address]- 1076 May, 2014 [facility] [place] [facility] [address] [facility] [id number], [place] [address]- 7888 May, 2014 [facility] [place] [facility] [address] [facility] [id number], [place] [address]- 1363 May2014 [facility] [place] [facility] [address] [id number] [place] [address]- 2317 May, 2014 [facility] [place] [facility] [address] [id number] [place] [address]- 3564 May, 2014 [facility] [place] [facility] [address] [id number] [place] [address]- 6757 May, 2014 [facility] [place] [facility] [address] [id number] [place] [address]- 1346 May, 2014 [facility] [place] [facility] [address] [id number] [place] [address]- 8337 May, [facility] [place] [facility] [address] [id number] [place] [address]- 4640 May, [facility] [place] [facility] [address] [id number] [place] [address]- 0935 Apr, [facility] [place] [facility] [address] [id number] [place] [address]- 7366 Apr, [facility] [place] [facility] [address] [id number] [place] [address]- 4234 Apr, [facility] [place] [facility] [address] [id number] [place] [address]- 1227 Apr, [facility] [place] [facility] [address] [id number], [place] [address]- 1082 Apr, [facility] [place] [facility] [address] [id number], [place] [address]- 5283 Apr, [facility] [place] [facility] [address] [id number] [place] [address]- 6768 Apr, [facility] [place] [facility] [address] [id number], [place] [address]- 6910 Apr, [facility] [place] [facility] [address] [id number], [place] [address]- 8072 Mar, [facility] [place] [facility] [address] [id number], [place] [address]- 2980 Mar, [facility] [place] [facility] [address] [id number] [place] [address]- 4226 Mar, [facility] [place] [facility] [address] [id number] [place] [address]- 7456 Mar, [facility] [place] [facility] [address] [id number] [place] [address]- 1126 Mar, [facility] [place] [facility] [address] [id number] [place] [address]- 8333 Mar, [facility] [place] [facility] [address] [id number] [place] [address]- 8384 Mar, [facility] [place] [facility] [address] [id number] [place] [address]- 9557 Mar, [facility] [place] [facility] [address] [id number] [place] [address]- 6813 Mar, [facility] [place] [facility] [address] [id number] [place] [address]- 5938 Mar, [facility] [place] [facility] [address] [id number] [place] [address]- 8800 Mar, [facility] [place] [facility] [address] [id number] [place] [address]- 3017 Mar, [facility] [place] [facility] [address] [id number] [place] [address]- 4479 Mar, [facility] [place] [facility] [address] [id number] [place] [address]- 8417 Mar, [facility] [place] [facility] [address] [id number] [place] [address]- 8165 Mar, [facility] [place] [facility] [address] [id number] [place] [address]- 4184 10 Mar, 2014 [facility] [place] [facility] [address] [id number] [place] [address]- 8313 Mar, [facility] [place] [facility] [address] [id number] [place] [address]- 4762 Mar, [facility] [place] [facility] [address] [id number] [place] [address]- 3410 Mar, [facility] [place] [facility] [address] [id number] [place]66 Mar, [facility] [place] [facility] [address] [id number] [place] [address]- 7712 Mar, [facility] [place] [facility] [address] [id number] [place] [address]- 1828 Mar, [facility] [place] [facility] [address] [id number] [place] [address]- 2955 Jan, [facility] [place] [facility] [address] [id number] [place] [address]- 8701 Jan, [facility] [place] [facility] [address] [id number] [place] [address]- 0011 Jan, [facility] [place] [facility] [address] [id number] [place] [address]- 0066 Jan, [facility] [place] [facility] [address] [id number] [place] [address]- 5483 Jan, [facility] [place] [facility] [address] [id number] [place] [address]- 0198 Jan, [facility] [place] [facility] [address] [id number] [place] [address]- 6135 Jan, [facility] [place] [facility] [address] [id number] [place] [address]- 2367 Jan, [facility] [place] [facility] [address] [id number] [place] [address]- 3963 Jan, [facility] [place] [facility] [address] [id number] [place] [address]- 0516 Jan, [facility] [place] [facility] [address] [id number] [place] [address]- 9838 Jan, [facility] [place] [facility] [address] [id number] [place] [address]- 8844 Jan, [facility] [place] [facility] [address] [id number] [place] [address]- 8417 Jan, [facility] [place] [facility] [address] [id number] [place] [address]- 6740 Jan, [facility] [place] [facility] [address] [id number] [place] [address]- 1358 Jan, [facility] [place] [facility] [address] [id number] [place] [address]- 3008 Jan, [facility] [place] [facility] [address] [id number] [place] [address]- 3625 Jan, [facility] [place] [facility] [address] [id number] [place] [address]- 9120 Jan, [facility] [place] [facility] [address] [id number] [place] [address]- 8710 Jan, [facility] [place] [facility] [address] [id number] [place] [address]- 8708 Jan, [facility] [place] [facility] [address] [id number] [place] [address]- 1920 Dec, [facility] [place] [facility] [address] [id number], [place] [address]- 7575 Dec, [facility] [place] [facility] [address] [id number], [place] [address]- 0121 Dec, [facility] [place] [facility] [address] [id number] [place] [address]- 1407 Dec, [facility] [place] [facility] [address] [id number], [place] [address]- 4028 Dec, [facility] [place] [facility] [address] [id number], [place] [address]- 1597 Dec, [facility] [place] [facility] [address] [id number] [place] [address]- 5404 14 Dec, 2013 [facility] [place] [facility] [address] [id number] [place] [address]- 6367 10 Dec, 2013 [facility] [place] [facility] [address] [id number] [place] [address]- 6636 10 Dec, 2013 [facility] [place] [facility] [address] [id number] [place] [address]- 9285 08 Dec, 2013 [facility] [place] [facility] [address] [id number] [place] [address]- 0590 08 Dec, 2013 [facility] [place] [facility] [address] [id number] [place] [address]- 5474 Dec, [facility] [place] [facility] [address] [id number] [place] [address]- 1150 Dec, [facility] [place] [facility] [address] [id number] [place] [address]- 6777 Dec, [facility] [place] [facility] [address] [id number] [place] [address]- 5447 Dec, [facility] [place] [facility] [address] [id number] [place] [address]- 3573 22 Nov, 2013 [facility] [place] [facility] [address] [id number] [place] [address]- 1656 22 Nov, 2013 [facility] [place] [facility] [address] [id number] [place] [address]- 1187 19 Nov, 2013 [facility] [place] [facility] [address] [id number] [place] [address]- 2545 19 Sep, 2013 [facility] [place] [facility] [address] [id number] [place] [address] 2549 13 Nov, 2013 [facility] [place] [facility] [address] [id number] [place] [address]- 2543 13 Nov, 2013 [facility] [place] [facility] [address] [id number] [place] [address]- 9373 Nov, 2013 [facility] [place] [facility] [address] [id number] [place] [address]- 6818 Nov, 2013 [facility] [place] [facility] [address] [id number] [place] [address]- 1075 Nov, 2013 [facility] [place] [facility] [address] [id number] [place] [address]- 4583 Nov, 2013 [facility] [place] [facility] [address] [id number] [place] [address]- 1193 Nov, 2013 [facility] [place] [facility] [address] [id number] [place] [address]- 8935 Nov, [facility] [place] [facility] [address] [id number] [place] [address]- 9553 Nov, [facility] [place] [facility] [address] [id number] [place] [address]- 7852 Oct, [facility] [place] [facility] [address] [id number] [place] [address]- 4053 Oct, [facility] [place] [facility] [address] [id number] [place] [address]- 7904 Oct, [facility] [place] [facility] [address] [id number] [place] [address]- 1201 Oct, [facility] [place] [facility] [address] [id number] [place] [address]- 8992 Oct, [facility] [place] [facility] [address] [id number] [place] [address]- 4597 Sep, [facility] [place] [facility] [address] [id number] [place] [address]- 2124 Sep, [facility] [place] [facility] [address] [id number] [place] [address]- 4842 Sep, [facility] [place] [facility] [address] [id number] [place] [address]- 1856 Sep, [facility] [place] [facility] [address] [id number] [place] [address]- 1460 Aug, [facility] [place] [facility] [address] [id number] [place] [address]- 9837 Aug, [facility] [place] [facility] [address] [id number] [place] [address]- 4548 Aug, [facility] [place] [facility] [address] [id number] [place] [address]- 2162 Aug, [facility] [place] [facility] [address] [id number] [place] [address]- 3649 Aug, [facility] [place] [facility] [address] [id number] [place] [address]- 4634 Aug, [facility] [place] [facility] [address] [id number] [place] [address]- 3619 Aug, [facility] [place] [facility] [address] [id number] [place] [address]- 9324 Aug, [facility] [place] [facility] [address] [id number] [place] [address]- 8729 Aug, [facility] [place] [facility] [address] [id number] [place] [address]- 3885 Aug, [facility] [place] [facility] [address] [id number] [place] [address]- 1085 Aug, [facility] [place] [facility] [address] [id number] [place] [address]- 0941 Aug, [facility] [place] [facility] [address] [id number] [place] [address]- 4090 Aug, [facility] [place] [facility] [address] [id number] [place] [address]- 1716 Aug, [facility] [place] [facility] [address] [id number] [place] [address]- 7091 Aug, [facility] [place] [facility] [address] [id number] [place] [address]- 9345 Aug, [facility] [place] [facility] [address] [id number] [place] [address]- 2882 Aug, [facility] [place] [facility] [address] [id number] [place] [address]- 7371 Aug, [facility] [place] [facility] [address] [id number] [place] [address]- 9298 Aug, [facility] [place] [facility] [address] [id number] [place] [address]- 7437 Aug, [facility] [place] [facility] [address] [id number] [place] [address]- 4421 Aug, [facility] [place] [facility] [address] [id number] [place] [address]- 7962 Aug, [facility] [place] [facility] [address] [id number] [place] [address]- 1252 Aug, [facility] [place] [facility] [address] [id number] [place] [address]- 6472 Aug, [facility] [place] [facility] [address] [id number] [place] [address]- 3433 July, [facility] [place] [facility] [address] [id number] [place] [address]- 7302 July, [facility] [place] [facility] [address] [id number] [place] [address]- 7660 July, [facility] [place] [facility] [address] [id number] [place] [address]- 1799 July, [facility] [place] [facility] [address] [id number] [place] [address]- 1564 July, [facility] [place] [facility] [address] [id number] [place] [address]- 0980 July, [facility] [place] [facility] [address] [id number] [place] [address]- 4973 Jun, [facility] [place] [facility] [address] [id number] [place] [address]- 0207 Jun, [facility] [place] [facility] [address] [id number] [place] [address] Jun, [facility] [place] [facility] [address] [id number] [place] [address] Jun, [facility] [place] [facility] [address] [id number] [place] [address] Jun, [facility] [place] [facility] [address] [id number] [place] [address] Jun, [facility] [place] [facility] [address] [id number] [place] [address] Jun, [facility] [place] [facility] [address] [id number] [place] [address] Jun, [facility] [place] [facility] [address] [id number] [place] [address] Jun, [facility] [place] [facility] [address] [id number] [place] [address] Jun, [facility] [place] [facility] [address] [id number] [place] [address] Jun, [facility] [place] [facility] [address] [id number] [place] [address] Jun, [facility] [place] [facility] [address] [id number] [place] [address] Jun, [facility] [place] [facility] [address] [id number], [place] [address] Jun, [facility] [place] [facility] [address] [id number] [place] [address] Jun, [facility] [place] [facility] [address] [id number] [place] [address] May, [facility] [place] [facility] [address] [id number] [place] [address] May, [facility] [place] [facility] [address] [id number], [place] [address] May, [facility] [place] [facility] [address] [id number] [place] [address] May, [facility] [place] [facility] [address] [id number] [place] [address] May, [facility] [place] [facility] [address] [facility] [id number] [place] [address] May, [facility] [place] [facility] [address] [facility] [id number] [place] [address] May, [facility] [place] [facility] [address] [id number] [place] [address] May, [facility] [place] [facility] [address] [facility] [id number] [place] [address] May, [facility] [place] [facility] [address] [id number] [place] [address] May, [facility] [place] [facility] [address] [facility] [id number] [place] [address] May, [facility] [place] [facility] [address] [facility] [id number] [place] [address] May, [facility] [place] [facility] [address] [facility] [id number] [place] [address] May, [facility] [place] [facility] [address] [facility] [id number] [place] [address] May, [facility] [place] [facility] [address] [facility] [id number], [place] [address] May, [facility] [place] [facility] [address] [id number] [place] [address]- [address] May, [facility] [place] [facility] [address] [facility] [id number], [place] [address] May, [facility] [place] [facility] [address] [facility] [id number], [place] [address]- [address] Apr, [facility] [place] [facility] [address] [id number] [place] [address] Apr, [facility] [place] [facility] [address] [id number] [place] [address]- [address] Apr, [facility] [place] [facility] [address] [id number] [place] [address] Apr, [facility] [place] [facility] [address] [id number] [place] [address]- [address] Apr, [facility] [address] [id number] [place] [address] Apr, [facility] [place] [facility] [address] [id number] [place] [address] Apr, [facility] [address] [id number] [place] [address] Apr, [facility] [address] [id number] [place] [address]- [address] Apr, [facility] [place] [facility] [address] [id number] [place] [address] Apr, [facility] [place] [facility] [address] [id number] [place] [address]- [address] Apr, [facility] [facility] [address] [id number] [place] [address]- [address] Apr, [facility] [place] [facility] [address] [id number] [place] [address]- [address] Apr, [facility] [place] [facility] [address] [id number] [place] [address]- [address] Apr, [facility] [place] [facility] [address] [id number] [place] [address]- 1729 Apr, [facility] [facility] [address] [id number] [place] [address]- [address] Apr, [facility] [place] [facility] [address] [id number] [place] [address]- [address] 30 Mar, 2012 [facility] [address] [id number] [place] [address]- [address] 30 Mar, 2012 [facility] [place] [facility] [address] [id number] [place] [address] 30 Mar, 2013 [facility] [place] [facility] [address] [id number] [place] [address]- 79[address] 30 Mar, 2013 [facility] [place] [facility] [address] [id number] [place] [address] 18 Mar, 2013 [facility] [place] [facility] [address] [id number] [place] [address]- [address] 18 Mar, 2013 [facility] [place] [facility] [address] [id number] [place] [address]- [address] 18 Mar, 2013 [facility] [address] [id number] [place] [address]- [address] 18 Mar, 2013 [facility] [place] [facility] [address] [id number] [place] [address]- [address] 17 Mar, 2013 [facility] [place] [facility] [address] [id number] [place] [address]- [address]267 17 Mar, 2013 [facility] [place] [facility] [address] [id number] [place] [address]- [address] 05 Mar, 2013 [facility] [place] [facility] [address] [id number], [place] [address]- [address] 05 Mar, 2013 [facility] [place] [facility] [address] [id number], [place] [address]- [address] 04 Mar, 2013 [facility] [place] [facility] [address] [id number] [place] [address]- [address] Mar, [facility] [place] [facility] [address] [id number] [place] [address]- [address] 04 Mar, 2013 [facility] [place] [facility] [address] [id number] [place] [address] 04 Mar, 2013 [facility] [place] [facility] [address] [id number] [place] [address] 25[address] Mar, [facility] [address] [id number] [place] [address] Mar, [facility] [place] [facility] [address] [id number] [place] [address] Jan, [facility] [address] [id number] [place] [address] Jan, [facility] [place] [facility] [address] [id number] [place] [address] Jan, [facility] [address] [id number] [place] [address] Jan, [facility] [address] [id number] [place] [address] Nov, [facility] [place] [facility] [address] [id number] [place] [address] Nov, [facility] [address] [id number] [place] [address] Nov, [facility] [place] [facility] [address] [id number] [place] [address] Nov, [facility] [address] [id number] [place] [address] Oct, [facility] [place] [facility] [address] [id number] [place] [address] Oct, [facility] [place] [facility] [address] [id number] [place] [address] Oct, [facility] [place] [facility] [address] [id number] [place] [address] Oct, [facility] [place] [facility] [address] [id number] [place] [address] Sep, [facility] [place] [facility] [address] [id number] [place] [address] Sep, [facility] [address] [id number] [place] [address] Sep, [facility] [place] [facility] [address] [id number] [place] [address] Sep, [facility] [place] [facility] [address] [id number] [place] [address] Sep, [facility] [place] [facility] [address] [id number] [place] [address] Sep, [facility] [place] [facility] [address] [id number] [place] [address] Sep, [facility] [place] [facility] [address] [id number] [place] [address] Sep, [facility] [place] [facility] [address] [id number] [place] [address] Sep, [facility] [place] [facility] [address] [id number] [place] [address] Aug, [facility] [place] [facility] [address] [id number] [place] [address] Aug, [facility] [place] [facility] [address] [id number] [place] [address] Aug, [facility] [place] [facility] [address] [id number] [place] [address] Aug, [facility] [place] [facility] [address] [id number] [place] [address] July, [facility] [place] [facility] [address] [id number] [place] [address] July, [facility] [place] [facility] [address] [id number] [place] [address] July, [facility] [place] [facility] [address] [id number] [place] [address] July, [facility] [place] [facility] [address] [id number] [address] July, [facility] [place] [id number] [address] July, [facility] [place] [id number] [address] July, [facility] [place] [id number], [place] [address] Jun, [facility] [place] [id number], [place] [address] May, [facility] [place] [id number] [address] May, [facility] [place] [id number], [place] [address] May, [facility] [place] [id number], [place] [address] May, [facility] [place] [id number] [address] May, [facility] [place] [id number] [address] May, [facility] [place] [id number], [place] [address] May, [facility] [place] [address] [id number], [place] [address] May, IMMUNIZATIONS No Known Immunizations SOCIAL HISTORY Never Assessed REASON FOR VISIT Refill request PLAN OF CARE VITAL SIGNS MEDICATIONS Medication Instructions Dosage Frequency Start Date End Date Duration Status Furosemide 40 MG TAKE ONE TABLET BY MOUTH DAILY 30 30 Active RESULTS No Results PROCEDURES No Known [...]
--- OUTSIDE RECORDS SUMMARY | 2017-12-18 19:51 | XMS REPORT ---
Author Author MCKENNA HEBERT Organization [facility] Address [address] [place] [address] Care Team Providers Care Group Supervisor Yard Name Role Phone MCKENNA HEBERT Unavailable PROBLEMS Type Condition ICD9-CM Code BOY24-JA Code Onset Dates Condition Status SNOMED Code Problem Amput below knee, unilat S88.119A Active 97125931 Problem Chronic congestive heart failure, unspecified congestive heart failure type I50.9 Active 06895365 Problem Intra-dialytic hypotension I95.3 Active 805509855 Problem Cellulitis of right lower extremity L03.115 Active 802140413 Problem Diabetes type 2, controlled E11.9 Active 84450414 Problem Renal failure N19 Active 34979799 Problem Neuropathy G62.9 Active 393301338 Problem Primary insomnia F51.01 Active 2719122 Problem 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 Active 7034136 Problem Chronic congestive heart failure, unspecified heart failure type I50.9 Active 20083568 Problem Seasonal allergic rhinitis due to other allergic trigger J30.89 Active 487786591 Problem Other chronic pain G89.29 Active 39948886 Problem Angina pectoris I20.9 Active 150168183 ALLERGIES Substance Reaction Event Type Date Status Fluarix Unknown Drug Allergy Aug, Active All Tape Unknown Non Drug Allergy Aug, Active ENCOUNTERS Encounter Location Date Diagnosis [facility] [address] [place] [address] 50456- 4081 16 Oct, 2017 Diabetes type 2, controlled E11.9 ; Primary insomnia F51.01 and Bilateral headaches R51 [facility] [id number] [place] [address] 75974- 7948 Oct, [facility] [address], [place] [address] 5926 Sep, [facility] [address] [place] [address] [id number] Sep, Dental examination Z01.20 and Dental caries K02.9 [facility] [address] [facility] [id number], [place] [address]- 5913 Sep, [facility] [address] [facility] [id number] [place] [address] 19166- 6254 Sep, [facility] [address] [facility] [id number] [place] [address] 57391- 0255 Sep, Other chronic pain G89.29 and Pain in right knee M25.561 [facility] [address] [facility] [id number] [place] [address] 11379- 4819 Sep, [facility] [address] [facility] [id number] [place] [address] 22023- 3203 Aug, [facility] [id number] [place] [address] 79007- 3326 Aug, 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 [facility] [id number] [place] [address] 32913- 6817 15 Aug, 2017 [facility] [id number] [place] [address] 69921- 5612 11 Aug, 2017 Diabetes type 2, controlled E11.9 and Acute pain of right knee M25.561 [facility] [address], [place] [address]- 5455 09 Aug, 2017 [facility] [id number] [place] [address] 83570- 7702 July, [facility] [address] [id number], [place] [address]- 7668 16 Jun, 2017 [facility] [address] [facility] [id number] [place] [address] 32780- 4410 13 Jun, 2017 [facility] [address] [id number], [place] [address]- 2212 10 Jun, 2017 Diabetes type 2, controlled E11.9 [facility] [address], [place] [address]- 0879 Jun, [facility] [address], [place] [address]- 3336 May, [facility] [address] 6637 May, [facility] [address], [place] [address]- 9216 May, [facility] [address], [place] [address]- 2882 May, Chronic congestive heart failure, unspecified congestive heart failure type I50.9 [facility] [address], [place] [address]- 4070 May, Diabetes type 2, controlled E11.9 ; BMI 50.0-59.9, adult Z68.43 ; Chronic congestive heart failure, unspecified heart failure type I50.9 ; Angina pectoris I20.9 ; Seasonal allergic rhinitis due to other allergic trigger J30.89 and Renal failure N19 [facility] [address] [id number] May, [facility] [address], [place] [address]- 5990 May, [facility] [address], [place] [address]- 7724 May, [facility] [address], [place] [address]- 1601 May, [facility] [address], [place] [address]- 7850 May, [facility] [address], [place] [address]- 6291 Apr, BMI 50.0-59.9, adult Z68.43 [facility] [address], [place] [address]- 0469 Apr, BMI 50.0-59.9, adult Z68.43 ; Post-procedural fever R50.82 and Bronchitis J40 [facility] [id number] [place] [address] 30272- 6668 Apr, Chronic congestive heart failure, unspecified congestive heart failure type I50.9 [facility] [id number] [place] [address] 41592- 4826 Jan, [facility] [id number] [place] [address] 50431- 2272 Jan, Diabetes type 2, controlled E11.9 [facility] [id number] [place] [address] 47049- 0024 Jan, Neuropathy G62.9 [facility] [id number] [place] [address] 08941- 0232 Jan, [facility] [id number] [place] [address] 45480- 7466 Jan, [facility] [id number] [place] [address] 71361- 4642 Jan, [facility] [id number] [place] [address] 63204- 3702 Jan, [facility] [id number] [place] [address] 94365- 5648 Jan, [facility] [id number] [place] [address] 02548- 2205 Dec, [facility] [id number] [place] [address] 94581- 6788 Dec, [facility] [id number] [place] [address] 56273- 6319 Dec, Diabetes type 2, controlled E11.9 [facility] [id number] [place] [address] 49962- 8654 Dec, [facility] [id number] [place] [address] 31657- 0580 Dec, [facility] [address] [facility] [id number], [place] [address]- 4353 Dec, Chronic congestive heart failure, unspecified congestive heart failure type I50.9 [facility] [address] [facility] [id number], [place] [address]- 4665 Dec, [facility] [address] [facility] [id number], [place] [address]- 2604 Dec, [facility] [address] [facility] [id number], [place] [address]- 0761 Nov, Chronic congestive heart failure, unspecified congestive heart failure type I50.9 [facility] [address] [facility] [id number], [place] [address]- 8367 Nov, Chronic congestive heart failure, unspecified congestive heart failure type I50.9 [facility] [address], [place] [address]- 1061 Nov, [facility] [address] [facility] [id number], [place] [address]- 1289 Oct, [facility] [address], [place] [address]- 3010 Oct, [facility] [address] [id number], [place] [address]- 7103 Oct, Chronic congestive heart failure, unspecified congestive heart failure type I50.9 [facility] [address] [facility] [id number], [place] [address]- 9321 Oct, [facility] [address] [facility] [id number], [place] [address]- 6995 Oct, Pneumonia of both lungs due to infectious organism, unspecified part of lung J18.9 [facility] [address] [facility] [id number], [place] [address]- 6650 Oct, [facility] [address] [id number], [place] [address]- 2463 Oct, Diabetes type 2, controlled E11.9 [facility] [address], [place] [address]- 0666 Oct, Diabetes type 2, controlled E11.9 [facility] [address] [facility] [id number], [place] [address]- 0076 Sep, [facility] [id number] [place] [address] 02261- 4016 Sep, Neuropathy G62.9 [facility] [id number], [place] [address] 2546 Aug, Intra-dialytic hypotension I95.3 [facility] [id number] [place] [address] 75092- 3026 July, [facility] [id number] [place] [address] 80136- 7716 July, [facility] [id number] [place] [address] 12243- 9897 July, [facility] [address] [place] [address] 92446- 7504 July, Amput below knee, unilat S88.119A [facility] [address], [place] [address]- 3836 May, [facility] [address], [place] [address]- 5026 May, Neuropathy G62.9 [facility] [address], [place] [address]- 3206 May, [facility] [address], [place] [address]- 1636 May, [facility] [address], [place] [address]- 0666 May, [facility] [address], [place] [address]- 1410 May, [facility] [address]65100[facility] [place] [address]- 9645 May, Neuropathy G62.9 [facility] [id number] [place] [address], [place] [address]- 6570 Apr, [facility] [address] [id number] [place] [address]- 3088 Apr, [facility] [id number] [place] [address], [place] [address]- 4411 Apr, Diabetes type 2, controlled E11.9 and Renal failure N19 [facility] [id number] [place] [address], [place] [address] -1579 Apr, [facility] [id number] [place] [address], [place] [address]- 4621 Apr, [facility] [id number] [place] [address], [place] [address]- 7101 Mar, [facility] [address]65100[facility] [place] [address]- 9653 Mar, [facility] [id number] [place] [address], [place] [address]- 1281 Mar, [facility] [address]65100[facility] [place] [address]- 2983 Mar, [facility] [address] [place] [address], [place] [address]- 2731 Mar, [facility] [address]100[facility] [place] [address]- 7690 Jan, Localized edema R60.0 [facility] [address]65100[facility] [place] [address]- 9269 Jan, [facility] [address]100[facility] [place] [address]- 5312 Jan, [facility] [address] [place] [address], [place] [address]- 0579 Jan, [facility] [address] [place] [address] 27632- 0536 Jan, [facility] [id number] [place] [address] 49707- 6428 Jan, [facility] [id number] [place] [address] 00876- 6985 Jan, [facility] [id number] [place] [address] 77315- 0164 Dec, Diabetes type 2, controlled E11.9 and Chronic nonintractable headache, unspecified headache type R51 [facility] [id number] [place] [address] 66830- 4857 Dec, [facility] [id number] [place] [address] 46607- 3494 Dec, [facility] [id number] [place] [address] 82258- 1079 Nov, [facility] [id number] [place] [address] 30656- 4129 Nov, [facility] [id number] [place] [address] 31596- 4496 Oct, [facility] [address] [place] [address] 84424- 2451 Oct, Migraine without status migrainosus, not intractable, unspecified migraine type G43.909 [facility] [address] [place] [address] 79442- 8093 Oct, [facility] [id number] [place] [address] 26289- 3980 Sep, Amput below knee, unilat S88.119A and Neuropathy G62.9 [facility] [address], [place] [address]- 5933 Sep, [facility] [id number] [place] [address] 43032- 5341 Sep, [facility] [address] [id number] [place] [address]- 3802 Sep, [facility] [address] [id number] [place] [address]- 1866 Aug, [facility] [address] [id number] [place] [address]- 8753 Aug, [facility] [address] [facility] [id number] [place] [address]- 9989 Aug, Diabetes type 2, controlled E11.9 [facility] [address] [id number] [place] [address]- 7495 Aug, [facility] [address] [facility] [id number] [place] [address]- 6015 Jun, Diabetes type 2, controlled E11.9 and Neuropathy G62.9 [facility] [address] [id number] [place] [address]- 6830 Jun, [facility] [address] [id number] [place] [address]- 2778 Jun, [facility] [address] [facility] [id number] [place] [address]- 1910 Jun, [facility] [address] [id number] [place] [address]- 8476 Jun, [facility] [address] [id number], [place] [address]- 2310 May, [facility] [address] [id number] [place] [address]- 7651 May, Diabetes type 2, controlled E11.9 [facility] [address] [id number] [place] 4100 May, [facility] [address] [id number] [place] [address]- 4273 May, [facility] [address], [place] [address]- 4621 26 May, 2015 [facility] [address], [place] [address]- 3422 May, [facility] [address], [place] [address]- 6380 May, [facility] [address] [place] [address] 33059- 4495 16 May, 2015 [facility] [address], [place] [address]- 2661 May, [facility] [address] [place] [address] 50142- 6309 May, COPD (chronic obstructive pulmonary disease) J44.9 [facility] [address], [place] [address]- 3523 May, [facility] [address], [place] [address]- 9741 May, [facility] [address], [place] [address]- 9836 May, [facility] [address], [place] [address]- 5877 May, [facility] [address], [place] [address]- 0855 May, [facility] [address], [place] [address]- 7896 May, Renal failure N19 and Pneumonia, organism unspecified, unspecified laterality, unspecified part of lung J18.9 [facility] [address], [place] [address]- 5380 Apr, [facility] [address], [place] [address]- 6814 Apr, [facility] [address]100[facility] [place] [address]- 1777 Apr, [facility] [address] [facility] [id number] [place] [address]- 7224 Apr, Diabetes mellitus 250.00 [facility] [address] [id number] [place] [address]- 6312 14 Apr, 2015 [facility] [address] [id number] [place] [address]- 3455 14 Apr, 2015 [facility] [address] [id number] [place] [address]- 2136 Apr, [facility] [address] [place] [address], [place] [address]- 8510 Apr, [facility] [address] [id number] [place] [address]- 9546 31 Mar, 2015 [facility] [address] [place] [address], [place] [address]- 6673 Mar, [facility] [address] [id number] [place] [address]- 2492 Mar, [facility] [address] [place] [address]- 1106 16 Mar, 2015 Renal failure N19 [facility] [id number] [place] [address]- 3921 14 Mar, 2015 [facility] [id number] [place] [address]- 9972 Mar, [facility] [address] [facility] [id number] [place] [address]- 9638 04 Mar, 2015 [facility] [address] [id number] [place] [address]- 5110 24 Jan, 2015 [facility] [address] [facility] [id number] [place] [address]- 1116 18 Jan, 2015 [facility] [address] [id number] [place] [address]- 4790 Jan, [facility] [place] [facility] [address] [facility] [id number] [place] [address]- 0014 Jan, [facility] [place] [facility] [address] [facility] [id number] [place] [address], [place] [address]- 9261 Dec, [facility] [place] [facility] [address] [id number] [place] [address]- 0505 Dec, [facility] [place] [facility] [address] [facility] [id number] [place] [address], [place] [address]- 6866 Dec, [facility] [place] [facility] [address] [facility] [id number] [place] [address], [place] [address]- 3647 Nov, [facility] [place] [facility] [address] [facility] [id number] [place] [address], [place] [address]- 9870 Nov, [facility] [place] [facility] [id number] [place] [address], [place] [address]- 3560 Nov, [facility] [place] [facility] [id number] [place] [address], [place] [address]- 6331 Oct, [facility] [place] [facility] [address]100[facility] [place] [address]- 0388 Oct, [facility] [place] [facility] [address], [place] [address]- 5472 Oct, Renal failure 586 and Obesity 278.00 [facility] [place] [facility] [address]65[address] [place] [address]- 8066 Oct, [facility] [place] [facility] [address] [facility] [id number], [place] [address]- 6385 Oct, [facility] [place] [facility] [address] [id number], [place] [address]- 6395 Oct, [facility] [place] [facility] [address] [facility] [id number], [place] [address]- 4830 Sep, [facility] [place] [facility] [address], [place] [address]- 1585 Sep, [facility] [place] [facility] [address] [id number] [place] [address]- 8402 Sep, Diabetes mellitus 250.00 and Congestive heart failure, unspecified 428.0 [facility] [address] [id number] [place] [address]- 6664 Aug, [facility] [address] [facility] [id number] [place] [address]- 6303 Aug, [facility] [address] [id number] [place] [address]- 6894 Aug, [facility] [address] [id number] [place] [address]- 1987 July, [facility] [address] [facility] [id number] [place] [address]- 5487 July, [facility] [address]65[address] [place] [address] July, Heart murmur, systolic 785.2 [facility] [address] [id number] [place] [address] July, [facility] [id number] [place] [address] July, [facility] [address] [id number] [place] [address] Jun, [facility] [address] [id number] [place] [address] Jun, [facility] [address] [id number] [place] [address] May, [facility] [address] [id number] [place] [address] May, [facility] [address] [facility] [id number] [place] [address] May, [facility] [address] [facility] [id number] [place] [address] May, [facility] [place] [facility] [address] [id number] [place] [address] 16 May, 2014 [facility] [place] [facility] [address] [id number] [place] [address] 16 May, 2014 [facility] [place] [facility] [address] [id number] [place] [address] 10 May, 2014 [facility] [place] [facility] [address] [id number] [place] [address] 10 May, 2014 [facility] [place] [facility] [address] [id number] [place] [address] 09 May, 2014 [facility] [place] [facility] [address] [id number] [place] [address] May, 2014 [facility] [place] [facility] [address] [facility] [id number] [place] [address] May, 2014 [facility] [place] [facility] [address] [facility] [id number] [place] [address] May, 2014 [facility] [place] [facility] [address] [facility] [id number] [place] [address] May, 2014 [facility] [place] [facility] [address] [facility] [id number] [place] [address] May, 2014 [facility] [place] [facility] [address] [facility] [id number] [place] [address] 18 May, 2014 [facility] [place] [facility] [address] [id number], [place] [address] May, 2014 [facility] [place] [facility] [address] [facility] [id number] [place] [address] May, 2014 [facility] [place] [facility] [address] [facility] [id number] [place] [address] 18 May, 2014 [facility] [place] [facility] [address] [facility] [id number] [place] [address] 18 May, 2014 [facility] [place] [facility] [address] [facility] [id number] [place] [address] 18 May, 2014 [facility] [place] [facility] [address] [id number] [place] [address] May, 2014 [facility] [place] [facility] [address] [id number] [place] [address] May, 2014 [facility] [place] [facility] [address] [id number] [place] [address] May, 2014 [facility] [place] [facility] [address] [id number] [place] [address] 4236 May, 2014 [facility] [place] [facility] [address] [id number] [place] [address] 8709 May, 2014 [facility] [place] [facility] [address] [id number] [place] [address]36 May, 2014 [facility] [place] [facility] [address] [id number] [place] [address] Apr, [facility] [place] [facility] [address] [id number] [place] [address] 3847 Apr, [facility] [place] [facility] [address] [id number] [place] [address] 4515 Apr, [facility] [place] [facility] [address] [id number] [place] [address] 0734 Apr, [facility] [place] [facility] [address] [id number] [place] [address]- 7726 Apr, [facility] [place] [facility] [address] [id number] [place] [address]200 Apr, [facility] [place] [facility] [address] [id number] [place] [address]- 6552 Apr, [facility] [place] [facility] [address] [id number] [place] [address]- 5444 Apr, [facility] [place] [facility] [address] [id number] [place] [address] 5929 Mar, [facility] [place] [facility] [address] [id number] [place] [address] 1472 Mar, [facility] [place] [facility] [address] [id number] [place] [address] 6906 Mar, [facility] [place] [facility] [address] [id number] [place] [address] 9736 Mar, [facility] [place] [facility] [address] [id number] [place] [address]- 3795 Mar, [facility] [place] [facility] [address] [id number] [place] [address]- 1833 Mar, [facility] [place] [facility] [address] [id number] [place] [address] 3308 Mar, [facility] [place] [facility] [address] [id number] [place] [address] 9331 Mar, [facility] [place] [facility] [address] [id number] [place] [address] 8235 Mar, [facility] [place] [facility] [address] [id number] [place] [address]- 4074 Mar, [facility] [place] [facility] [address] [id number] [place] [address] 3839 Mar, [facility] [place] [facility] [address] [id number] [place] [address] 2310 Mar, [facility] [place] [facility] [address] [id number] [place] [address]- 2776 Mar, [facility] [place] [facility] [address] [id number] [place] [address] 2766 Mar, [facility] [place] [facility] [address] [id number] [place] [address]- 4936 Mar, [facility] [place] [facility] [address] [id number] [place] [address]- 3906 Mar, [facility] [place] [facility] [address] [id number] [place] [address]- 4485 Mar, [facility] [place] [facility] [address] [id number] [place] [address]- 9475 Mar, [facility] [place] [facility] [address] [id number] [place] [address]- 0702 Mar, [facility] [place] [facility] [address] [id number] [place] [address] 6063 Mar, [facility] [place] [facility] [address] [id number] [place] [address]- 1603 Mar, [facility] [place] [facility] [address] [id number] [place] [address] 9799 Mar, [facility] [place] [facility] [address] [id number] [place] [address]- 6567 Jan, [facility] [place] [facility] [address] [id number] [place] [address]- 9556 Jan, [facility] [place] [facility] [address] [id number] [place] [address] 2626 Jan, [facility] [place] [facility] [address] [id number] [place] [address]- 1287 Jan, [facility] [place] [facility] [address] [id number] [place] [address] 7052 Jan, [facility] [place] [facility] [address] [id number] [place] [address]- 6777 Jan, [facility] [place] [facility] [address] [id number] [place] [address]- 1750 Jan, [facility] [place] [facility] [address] [id number] [place] [address]- 7581 Jan, [facility] [place] [facility] [address] [id number] [place] [address]- 0852 Jan, [facility] [place] [facility] [address] [id number] [place] [address]- 3366 Jan, [facility] [place] [facility] [address] [id number] [place] [address]- 4116 Jan, [facility] [place] [facility] [address] [id number] [place] [address]- 1534 Jan, [facility] [place] [facility] [address] [id number] [place] [address]- 5930 Jan, [facility] [place] [facility] [address] [id number] [place] [address]- 7823 Jan, [facility] [place] [facility] [address] [id number] [place] [address]- 3366 Jan, [facility] [place] [facility] [address] [id number] [place] [address]- 7277 Jan, [facility] [place] [facility] [address] [id number] [place] [address]- 5366 Jan, [facility] [place] [facility] [address] [id number] [place] [address]- 1124 Jan, [facility] [place] [facility] [address] [id number] [place] [address]- 4578 Jan, [facility] [place] [facility] [address] [id number] [place] [address]- 7030 Jan, [facility] [place] [facility] [address] [id number] [place] [address]- 8545 Dec, [facility] [place] [facility] [address] [id number], [place] [address]- 9898 Dec, [facility] [place] [facility] [address] [id number] [place] [address]- 3291 Dec, [facility] [place] [facility] [address] [id number] [place] [address]- 3945 Dec, [facility] [place] [facility] [address] [id number], [place] [address]- 1029 Dec, [facility] [place] [facility] [address] [id number], [place] [address]- [address]605 14 Dec, 2013 [facility] [place] [facility] [address] [id number] [place] [address]- 3728 14 Dec, 2013 [facility] [place] [facility] [address] [id number] [place] [address]- 8844 Dec, [facility] [place] [facility] [address] [id number] [place] [address]- 0910 Dec, [facility] [place] [facility] [address] [id number] [place] [address]- 6224 Dec, [facility] [place] [facility] [address] [id number] [place] [address]- 4546 Dec, [facility] [place] [facility] [address] [id number] [place] [address]- 2530 Dec, [facility] [place] [facility] [address] [id number] [place] [address]- 7903 Dec, [facility] [place] [facility] [address] [id number] [place] [address]- 0622 Dec, [facility] [place] [facility] [address] [id number] [place] [address]- 4388 Dec, [facility] [place] [facility] [address] [id number] [place] [address]- 4305 22 Nov, 2013 [facility] [place] [facility] [address] [id number], [place] [address]- 3756 22 Nov, 2013 [facility] [place] [facility] [address] [id number], [place] [address]- 8027 19 Nov, 2013 [facility] [place] [facility] [address] [id number] [place] [address]- 4569 19 Nov, 2013 [facility] [place] [facility] [address] [id number] [place] [address]- 4694 13 Nov, 2013 [facility] [place] [facility] [address] [id number] [place] [address]- 4942 13 Nov, 2013 [facility] [place] [facility] [address] [id number] [place] [address]- 2916 10 Nov, 2013 [facility] [place] [facility] [address] [id number] [place] [address]- 3410 10 Nov, 2013 [facility] [place] [facility] [address] [id number] [place] [address]- 4996 08 Nov, 2013 [facility] [place] [facility] [address] [id number] [place] [address]- 5906 05 Nov, 2013 [facility] [place] [facility] [address] [id number] [place] [address]- 2088 Nov, 2013 [facility] [place] [facility] [address] [id number] [place] [address]- 4224 Nov, 2013 [facility] [place] [facility] [address] [id number] [place] [address]- 1888 Nov, 2013 [facility] [place] [facility] [address] [id number] [place] [address]- 9302 Oct, [facility] [place] [facility] [address] [id number] [place] [address]- 5517 Oct, [facility] [place] [facility] [address] [id number] [place] [address]- 7500 Oct, [facility] [place] [facility] [address] [id number] [place] [address]- 5918 Oct, [facility] [place] [facility] [address] [id number] [place] [address]- 6175 Oct, [facility] [place] [facility] [address] [id number] [place] [address]- 9491 Sep, [facility] [place] [facility] [address] [id number] [place] [address]- 0479 Sep, [facility] [place] [facility] [address] [id number] [place] [address]- 4004 Sep, [facility] [place] [facility] [address] [id number] [place] [address]- 1617 Sep, [facility] [place] [facility] [address] [id number] [place] [address]- 6521 Aug, [facility] [place] [facility] [address] [id number] [place] [address]- 8413 Aug, [facility] [place] [facility] [address] [id number] [place] [address]- 8974 Aug, [facility] [place] [facility] [address] [id number] [place] [address]- 7007 Aug, [facility] [place] [facility] [address] [id number] [place] [address]- 5123 Aug, [facility] [place] [facility] [address] [id number] [place] [address]- 0393 Aug, [facility] [place] [facility] [address] [id number] [place] [address]- 3655 Aug, [facility] [place] [facility] [address] [id number] [place] [address]- 2748 Aug, [facility] [place] [facility] [address] [id number] [place] [address]- 0311 Aug, [facility] [place] [facility] [address] [id number] [place] [address]- 6145 Aug, [facility] [place] [facility] [address] [id number] [place] [address]- 4912 Aug, [facility] [place] [facility] [address] [id number], [place] [address]- 9565 Aug, [facility] [place] [facility] [address] [id number] [place] [address]- 8663 Aug, [facility] [place] [facility] [address] [id number] [place] [address]- 9127 Aug, [facility] [place] [facility] [address] [id number] [place] [address]- 2104 16 Aug, 2013 [facility] [place] [facility] [address] [id number] [place] [address]- 8374 16 Aug, 2013 [facility] [place] [facility] [address] [id number] [place] [address]- 7576 Aug, [facility] [place] [facility] [address] [id number] [place] [address]- 4113 Aug, [facility] [place] [facility] [address] [id number] [place] [address]- 0216 Aug, [facility] [place] [facility] [address] [id number] [place] [address]- 1734 Aug, [facility] [place] [facility] [address] [id number] [place] [address]- 4474 Aug, [facility] [place] [facility] [address] [id number] [place] [address]- 5706 Aug, [facility] [place] [facility] [address] [id number] [place] [address]- 2313 Aug, [facility] [place] [facility] [address] [id number] [place] [address]- 2836 Aug, [facility] [place] [facility] [address] [id number] [place] [address]- 3147 July, [facility] [place] [facility] [address] [id number] [place] [address]- 6636 July, [facility] [place] [facility] [address] [id number] [place] [address]- 7248 July, [facility] [place] [facility] [address] [id number] [place] [address]- 9935 July, [facility] [place] [facility] [address] [id number] [place] [address]- 6126 July, [facility] [place] [facility] [address] [id number] [place] [address]- 1809 July, [facility] [place] [facility] [address] [id number] [place] [address]- 3321 Jun, [facility] [place] [facility] [address] [id number] [place] [address]- 0215 Jun, [facility] [place] [facility] [address] [id number] [place] [address]- 1633 Jun, [facility] [place] [facility] [address] [id number] [place] [address]- 8991 Jun, [facility] [place] [facility] [address] [id number] [place] [address]- 4304 Jun, [facility] [place] [facility] [address] [id number] [place] [address]- 0662 Jun, [facility] [place] [facility] [address] [id number] [place] [address]- 5280 Jun, [facility] [place] [facility] [address] [id number] [place] [address]- 8949 Jun, [facility] [place] [facility] [address] [id number] [place] [address]- 7087 Jun, [facility] [place] [facility] [address] [id number] [place] [address]- 6822 Jun, [facility] [place] [facility] [address] [id number] [place] [address]- 6554 Jun, [facility] [place] [facility] [address] [id number] [place] [address]- 0023 Jun, [facility] [place] [facility] [address] [id number] [place] [address]- 5851 Jun, [facility] [place] [facility] [address] [id number] [place] [address]- 5287 Jun, [facility] [place] [facility] [address] [id number] [place] [address]- 4643 Jun, [facility] [place] [facility] [address] [id number] [place] [address]- 7003 May, [facility] [place] [facility] [address] [id number] [place] [address]- 3936 May, [facility] [place] [facility] [address] [id number] [place] [address]- 6816 May, [facility] [place] [facility] [address] [id number] [place] [address]- 3638 May, [facility] [place] [facility] [address] [id number] [place] [address]- 0313 May, [facility] [place] [facility] [address] [id number] [place] [address]- 8374 May, [facility] [place] [facility] [address] [id number] [place] [address]- 7747 May, [facility] [place] [facility] [address] [id number] [place] [address]- 7138 May, [facility] [place] [facility] [address] [id number] [place] [address]- 2724 May, [facility] [place] [facility] [address] [id number] [place] [address]- 1038 May, [facility] [place] [facility] [address] [id number] [place] [address]- 4329 May, [facility] [place] [facility] [address] [facility] [id number] [place] [address]- 4282 May, [facility] [place] [facility] [address] [id number] [place] [address]- 8906 May, [facility] [place] [facility] [address] [id number] [place] [address]- 7275 May, [facility] [place] [facility] [address] [id number] [place] [address]- 6525 May, [facility] [place] [facility] [address] [id number] [place] [address]- 3003 May, [facility] [place] [facility] [address] [id number] [place] [address]- 9344 May, [facility] [place] [facility] [address] [id number] [place] [address]- 7562 Apr, [facility] [place] [facility] [address] [id number] [place] [address]- 0464 Apr, [facility] [place] [facility] [address] [id number] [place] [address]- 3457 Apr, [facility] [place] [facility] [address] [id number] [place] [address]- 3615 Apr, [facility] [place] [facility] [address] [id number] [place] [address]- 1126 Apr, [facility] [place] [facility] [address] [id number] [place] [address]- 6968 Apr, [facility] [place] [facility] [address] [id number] [place] [address]- 8269 Apr, [facility] [place] [facility] [address] [id number] [place] [address]- 1355 Apr, [facility] [place] [facility] [address] [id number] [place] [address]- 9665 Apr, [facility] [place] [facility] [address] [id number] [place] [address]- 5196 Apr, [facility] [place] [facility] [address] [id number] [place] [address]- 5584 Apr, [facility] [place] [facility] [address] [id number] [place] [address]- 4198 Apr, [facility] [place] [facility] [address] [id number] [place] [address]- 9405 Apr, [facility] [place] [facility] [address] [id number] [place] [address]- 6032 Apr, [facility] [place] [facility] [address] [id number] [place] [address]- 4804 Apr, [facility] [place] [facility] [address] [id number] [place] [address]- 5473 Apr, [facility] [address] [id number] [place] [address]- 7883 30 Mar, 2013 [facility] [place] [facility] [address] [id number] [place] [address]- 7855 30 Mar, 2013 [facility] [place] [facility] [address] [id number] [place]26 30 Mar, 2013 [facility] [place] [facility] [address] [id number] [place] [address]- 0153 30 Mar, 2013 [facility] [place] [facility] [address] [id number] [place] [address]- 2424 18 Mar, 2013 [facility] [place] [facility] [address] [id number] [place] [address]- 0884 Mar, [facility] [place] [facility] [address] [id number] [place] [address]- 6572 Mar, [facility] [place] [facility] [address] [id number] [place] [address]- 9992 Mar, [facility] [place] [facility] [address] [id number] [place] [address]- 5139 17 Mar, 2013 [facility] [place] [facility] [address] [id number] [place] [address]- 7901 17 Mar, 2013 [facility] [place] [facility] [address] [id number], [place] [address]- 7374 05 Mar, 2013 [facility] [place] [facility] [address] [id number], [place] [address]- 6079 05 Mar, 2013 [facility] [place] [facility] [address] [id number] [place] [address]- 5530 Mar, [facility] [place] [facility] [address] [id number] [place] [address]- 4873 04 Mar, 2013 [facility] [place] [facility] [address] [id number] [place] [address]- 7031 Mar, [facility] [place] [facility] [address] [id number] [place] [address]- 2747 Mar, [facility] [address] [id number] [place] [address]- 8070 Mar, [facility] [place] [facility] [address] [id number] [place] [address]- 8742 Mar, [facility] [place] [facility] [address] [id number] [place] [address]- 2196 Jan, [facility] [place] [facility] [address] [id number] [place] [address]- 4358 Jan, [facility] [place] [facility] [address] [id number] [place] [address]- 0808 Jan, [facility] [place] [facility] [address] [id number] [place] [address]- 5556 Jan, [facility] [address] [id number] [place] [address]- 8124 Nov, [facility] [place] [facility] [address] [id number] [place] [address]- 2360 Nov, [facility] [place] [facility] [address] [id number] [place] [address]- 1594 Nov, [facility] [place] [facility] [address] [id number] [place] [address]- 0496 Nov, [facility] [place] [facility] [address] [id number] [place] [address]- 3455 Oct, [facility] [place] [facility] [address] [id number] [place] [address]- 4452 Oct, [facility] [place] [facility] [address] [id number] [place] [address]- 5797 Oct, [facility] [place] [facility] [address] [id number] [place] [address]- 8223 Oct, [facility] [place] [facility] [address] [id number] [place] [address]- 7716 Sep, [facility] [place] [facility] [address] [id number] [place] [address]- 1190 Sep, [facility] [place] [facility] [address] [id number] [place] [address] Sep, [facility] [place] [facility] [address] [id number] [place] [address] Sep, [facility] [place] [facility] [address] [id number] [place] [address] Sep, [facility] [place] [facility] [address] [id number] [place] [address] Sep, [facility] [place] [facility] [address] [id number] [place] [address] Sep, [facility] [place] [facility] [address] [id number] [place] [address] Sep, [facility] [place] [facility] [address] [id number] [place] [address] Sep, [facility] [place] [facility] [address] [id number] [place] [address] Aug, [facility] [place] [facility] [address] [id number] [place] [address] Aug, [facility] [place] [facility] [address] [id number] [place] [address] Aug, [facility] [place] [facility] [address] [id number] [place] [address] Aug, [facility] [place] [facility] [address] [id number] [place] [address] July, [facility] [place] [facility] [address] [id number] [place] [address] July, [facility] [place] [facility] [address] [id number] [place] [address] July, [facility] [place] [facility] [address] [id number], [place] [address] July, [facility] [address] [id number], [place] [address] July, [facility] [id number], [place] [address] July, [facility] [address] [id number], [place] [address] July, [facility] [id number], [place] [address] Jun, [facility] [address] [id number], [place] [address] May, [facility] [id number], [place] [address] May, [facility] [id number], [place] [address] May, [facility] [id number], [place] [address] May, [facility] [address] [id number], [place] [address] May, [facility] [address] [id number], [place] [address] May, [facility] [address] [id number], [place] [address] May, [facility] [address] [id number], [place] [address] May, IMMUNIZATIONS No Known Immunizations SOCIAL HISTORY Never Assessed REASON FOR VISIT right inner knee pain, -Nicola VALADEZ PLAN OF CARE VITAL SIGNS Height 64 in 2017-09-09 Weight 305 lbs 2017-09-09 Temperature 98.3 degrees Fahrenheit 2017-09-09 Heart Rate 86 bpm 2017-09-09 Respiratory Rate 20 2017-09-09 Oximetry on room air:90 % 2017-09-09 BMI 52.35 kg/m2 2017-09-09 Blood pressure systolic 124 mmHg 2017-09-09 Blood pressure diastolic 68 mmHg 2017-09-09 MEDICATIONS Medication Instructions Dosage Frequency Start Date End Date Duration Status Oxygen 5 as directed July, Active HydrOXYzine HCl 25 MG TAKE 1 TABLET BY MOUTH FOUR TIMES DAILY NEEDED FOR ANXIETY 22 Active Rosuvastatin Calcium 20 MG TAKE 1 TABLET BY MOUTH ONCE A DAY 30 Active Loratadine 10 MG TAKE ONE TABLET BY MOUTH DAILY AT BEDTIME 30 Active Renvela 800 MG 2tablet with breakfast and dinner and 1 tablet with lunch Not-Taking Mupirocin 2 % APPLY TO AFFECTED AREA TWICE DAILY 5 Active Guaifenesin 400 MG Orally 4 times a day 1 tablet as needed 6h Apr, Active PredniSONE 20 mg Orally Once a day 2 tablets 24h Apr, 05 days Not-Taking True Metrix Blood Glucose Test - USE TO TEST BLOOD GLUCOSE LEVELS TWICE DAILY 25 Active Wheelchair - .... 24h July, lifetime Active Aspirin 81 mg take 1 tablet (81 mg) by oral route once daily May, Active Amlodipine Besylate 10 MG TAKE 1 TABLET BY MOUTH DAILY 30 Active Nystatin 634279 UNIT/GM Externally Twice a day 1 to affected area 12h Mar, Active Metoprolol Tartrate 100 mg Orally Twice a day 1 tablet 12h 30 Active Montelukast Sodium 10 MG TAKE ONE TABLET BY MOUTH ONCE DAILY IN THE EVENING 30 Active Crestor 20 mg Orally Once a day 1 tablet 24h Active Glucagon Emergency 1 mg July, Not-Taking [place] 10-325 MG Orally every 6 hrs take 1 tablet by oral route every 6 hours as needed for pain 6h May, 28 days Active Fluticasone Propionate 50 MCG/ACT Nasally Once a day 1 spray in each nostril 24h 30 days Active Lantus SoloStar 100 unit/ml Subcutaneous Once a day INJECT 36 UNITS SUBCUTANEOUSLY DAILY AT BEDTIME 24h Active Ugfftjjwrg-ENTN-Enihnscf 50-325-40 MG Orally 4 times a day 1 tablet as needed 6h May, 30 days Active Dialyvite Orally Once a day 1 tablet 24h Not-Taking Isosorbide Mononitrate ER 30 mg TAKE 1 TABLET BY MOUTH DAILY 30 Active Humalog KwikPen 100 UNIT/ML Subcutaneous 3 times a day per sliding scale 8h May, 30 days Active Lidoderm 5 % Externally Once a day 1 patch to skin remove after 12 hours 24h Aug, Active Furosemide 40 MG TAKE ONE TABLET BY MOUTH DAILY 30 30 Active Singulair 10 MG take 1 tablet (10 mg) by oral route once daily in the evening Active Gabapentin 300 MG Orally Three times a day 1 capsule 8h 30 Active RESULTS Name Result Date Reference Range A1C (IN HOUSE) 2017-09-09 A1C IN HOUSE 9.4 4.3 - 5.6 % Previous A1c 9.5 Lot [id number] Exp date 05/2019 PROCEDURES Procedure Date Ordered Result Body Site GLYCATED HEMOGLOBIN TEST September 09, 2017 [facility] ESTABLISHED PATIENT September 09, 2017 INSTRUCTIONS MEDICATIONS ADMINISTERED No Known Medications [...]
--- OUTSIDE RECORDS SUMMARY | 2017-12-18 19:52 | XMS REPORT ---
Author Author MCKENNA HEBERT Organization [facility] Address [address] [place] [address] Care Team Providers Care Skirt Maker Name Role Phone MCKENNA HEBERT Unavailable PROBLEMS Type Condition ICD9-CM Code [id number] Code Onset Dates Condition Status SNOMED Code Problem Amput below knee, unilat S88.119A Active 73249728 Problem Chronic congestive heart failure, unspecified congestive heart failure type I50.9 Active 56799263 Problem Intra-dialytic hypotension I95.3 Active 931227098 Problem Cellulitis of right lower extremity L03.115 Active 110819382 Problem Diabetes type 2, controlled E11.9 Active 30975241 Problem Renal failure N19 Active 01152845 Problem Neuropathy G62.9 Active 389292536 Problem Primary insomnia F51.01 Active 9973560 Problem 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 Active 3858266 Problem Chronic congestive heart failure, unspecified heart failure type I50.9 Active 65680373 Problem Seasonal allergic rhinitis due to other allergic trigger J30.89 Active 225444986 Problem Other chronic pain G89.29 Active 61680207 Problem Angina pectoris I20.9 Active 074193492 ALLERGIES No Information ENCOUNTERS Encounter Location Date Diagnosis [place] [id number] [place] [address] 09807- 0429 Oct, Diabetes type 2, controlled E11.9 ; Primary insomnia F51.01 and Bilateral headaches R51 [facility] [address] [address] 6127 Oct, [place] [address] [place] [id number] [place] [address] 52781- 6725 Sep, [facility] [id number] [address] Sep, Dental examination Z01.20 and Dental caries K02.9 [place] [address] [facility] [id number] [address] 1468 13 Sep, 2017 [facility] [address] [facility] [id number] [place] [address]- 6045 Sep, [facility] [address] [facility] [id number] [place] [address]- 4968 Sep, Other chronic pain G89.29 and Pain in right knee M25.561 [facility] [address] [facility] [id number] [place] [address] 2134 05 Sep, 2017 [facility] [address] [facility] [id number] [place] [address]- 3184 Aug, [facility] [address] [address]- 2761 20 Aug, 2017 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 [facility] [address] [place] [address] 79447- 5125 15 Aug, 2017 [facility] [address] [address]- 8629 11 Aug, 2017 Diabetes type 2, controlled E11.9 and Acute pain of right knee M25.561 [facility] [address] [address]- 4775 09 Aug, 2017 [facility] [address] [address]- 2126 July, [facility] [address] [address]- 4904 16 Jun, 2017 [facility] [address] [facility] [id number] [place] [address]- 2097 13 Jun, 2017 [facility] [address] [address]- 5996 10 Jun, 2017 Diabetes type 2, controlled E11.9 [facility] [address] [address]- 2527 Jun, [facility] [address] [address]- 3140 May, [facility] [id number] [place] [address] 94381- 5895 May, [facility] [id number] [place] [address] 11601- 2774 May, [facility] [id number] [place] [address] 53043- 4897 May, Chronic congestive heart failure, unspecified congestive heart failure type I50.9 [facility] [id number] [place] [address] 84680- 5100 May, Diabetes type 2, controlled E11.9 ; BMI 50.0-59.9, adult Z68.43 ; Chronic congestive heart failure, unspecified heart failure type I50.9 ; Angina pectoris I20.9 ; Seasonal allergic rhinitis due to other allergic trigger J30.89 and Renal failure N19 [facility] [address] [place] [address] [id number] May, [facility] [id number] [place] [address] 65193- 0686 May, [facility] [id number] [place] [address] 77516- 6963 May, [facility] [address] [place] [address] 52761- 9376 May, [facility] [id number] [place] [address] 40324- 2138 May, [facility] [address] [place] [address] 62398- 0444 Apr, BMI 50.0-59.9, adult Z68.43 [facility] [address] [address]- 6738 Apr, BMI 50.0-59.9, adult Z68.43 ; Post-procedural fever R50.82 and Bronchitis J40 [facility] [address] [facility] [id number] [place] [address]- 6092 Apr, Chronic congestive heart failure, unspecified congestive heart failure type I50.9 [facility] [address] [facility] [id number] [place] [address]- 4347 Jan, [facility] [id number] [place] [address] 99093- 9699 Jan, Diabetes type 2, controlled E11.9 [facility] [address] [facility] [id number] [place] [address], [place] [address]- 4786 Jan, Neuropathy G62.9 [facility] [id number] [place] [address], [place] [address]- 4378 Jan, [facility] [id number] [place] [address] 66120- 4243 Jan, [facility] [id number] [place] [address] 12424- 0525 Jan, [facility] [address] [place] [address] 98054- 1482 Jan, [facility] [address] [place] [id number] [place] [address] 64869- 8186 Jan, [facility] [address] [address]- 5554 Dec, [facility] [address] [address]- 6057 Dec, [facility] [address] [address]- 7281 Dec, Diabetes type 2, controlled E11.9 [facility] [address] [address]- 6899 Dec, [facility] [address] [place] [id number] [address]- 7922 Dec, [facility] [address] [id number] [address]- 6898 Dec, Chronic congestive heart failure, unspecified congestive heart failure type I50.9 [facility] [address] [address]- 8886 Dec, [facility] [address] [address]- 2114 Dec, [facility] [id number] [place] [address] 79324- 3159 Nov, Chronic congestive heart failure, unspecified congestive heart failure type I50.9 [facility] [id number] [place] [address] 47353- 7292 Nov, Chronic congestive heart failure, unspecified congestive heart failure type I50.9 [facility] [address] [address]- 8162 Nov, [facility] [address] [place] [id number] [place] [address] 34505- 3573 Oct, [facility] [address] [place] [address] 56629- 7611 Oct, [facility] [address] [place] [address] 28626- 0598 Oct, Chronic congestive heart failure, unspecified congestive heart failure type I50.9 [facility] [address] [address]- 5080 Oct, [facility] [address] [address]- 2076 Oct, Pneumonia of both lungs due to infectious organism, unspecified part of lung J18.9 [facility] [address] [address]- 8494 Oct, [facility] [address] [address]- 3609 Oct, Diabetes type 2, controlled E11.9 [facility] [id number] [address]- 7992 Oct, Diabetes type 2, controlled E11.9 [facility] [address] [id number] [place] [address] 26224- 8516 Sep, [facility] [id number] [place] [address] 87456 2546 Sep, Neuropathy G62.9 [facility] [id number] [place] [address] 93359 2546 Aug, Intra-dialytic hypotension I95.3 [facility] [address] [id number] [place] [address], [place] [address] 2546 July, [facility] [id number] [place] [address] 26006- 7606 July, [facility] [id number] [place] [address] 04584- 7746 July, [facility] [id number] [place] [address] 02715- 8310 July, Amput below knee, unilat S88.119A [facility] [address] [id number] [place] [address] 69816- 7086 May, [facility] [address] [place] [address] 77133- 3602 May, Neuropathy G62.9 [facility] [id number] [address] 2546 May, [facility] [address] [address] 2546 May, [facility] [id number] [place] [address] 29474 2546 May, [facility] [address] [address] 2546 May, [facility] [id number] [place] [address] 23119- 9213 May, Neuropathy G62.9 [facility] [address] [facility] [id number] [place] [address]- 8264 Apr, [facility] [address] [place] [address]- 7319 Apr, [facility] [address] [place] [address] [id number] [place] [address]- 8956 Apr, Diabetes type 2, controlled E11.9 and Renal failure N19 [facility] [address] [facility] [id number] [place] [address] -8782 Apr, [facility] [id number] [place] [address], [place] [address]- 0330 Apr, [facility] [id number] [place] [address], [place] [address]- 5847 Mar, [facility] [id number] [place] [address], [place] [address]- 6569 Mar, [facility] [address] [place] [address]- 2504 Mar, [facility] [id number] [place] [address], [place] [address]- 8428 Mar, [facility] [address] [place] [address]- 5635 Mar, [facility] [address] [place] [address]- 8120 Jan, Localized edema R60.0 [facility] [address] [place] [address] [id number] [place] [address]- 2202 Jan, [facility] [address] [place] [address] [id number] [place] [address]- 1646 Jan, [facility] [id number] [place] [address]- 0557 Jan, [facility] [address] [address]- 1240 Jan, [facility] [address] [address]- 7655 Jan, [facility] [address] [place] [address] 25620- 2010 Jan, [facility] [id number] [place] [address] 65418- 3727 Dec, Diabetes type 2, controlled E11.9 and Chronic nonintractable headache, unspecified headache type R51 [facility] [address] [place] [address] 95408- 1668 Dec, [facility] [id number] [place] [address] 67241- 0921 Dec, [facility] [id number] [place] [address] 37706- 5707 Nov, [facility] [id number] [place] [address] 46805- 5228 Nov, [facility] [address] [place] [address] 48439- 8530 Oct, [facility] [id number] [place] [address] 57821- 3793 Oct, Migraine without status migrainosus, not intractable, unspecified migraine type G43.909 [facility] [address] [place] [address] 10662- 0104 Oct, [facility] [address] [place] [address] 07212- 7372 Sep, Amput below knee, unilat S88.119A and Neuropathy G62.9 [facility] [id number] [place] [address] 92473- 2366 Sep, [facility] [address] [place] [address] 02112- 1360 Sep, [facility] [address] [place] [address] [id number] [place] [address]- 7043 Sep, [facility] [address] [facility] [id number] [place] [address]- 0033 Aug, [facility] [address] [facility] [id number] [place] 9053 Aug, [facility] [address] [facility] [id number] 6217 Aug, Diabetes type 2, controlled E11.9 [facility] [address] [facility] [id number] [place] [address]- 3325 Aug, [facility] [address] [facility] [id number] [place] [address]- 7595 Jun, Diabetes type 2, controlled E11.9 and Neuropathy G62.9 [facility] [address] [place] [address]- 5349 Jun, [facility] [address] [facility] [id number] [place] [address]- 9083 Jun, [facility] [id number] [place] [address]- 1881 Jun, [facility] [id number] [place] [address]- 8001 Jun, [facility] [address] [id number] [place] [address]- 3564 May, [facility] [address] [facility] [id number] [place] [address]- 5723 May, Diabetes type 2, controlled E11.9 [facility] [id number] [place] [address]- 5478 May, [facility] [address] [facility] [id number] [place] [address]- 9989 May, [facility] [address] [place] [id number] [place]- 5779 May, [facility] [address] [address]- 5397 May, [facility] [address] [place] [address]- 0226 May, [facility] [address] [address]- 4656 May, [facility] [address] [place] [address], [place] [address] 2546 May, [facility] [address] [address]- 9630 May, COPD (chronic obstructive pulmonary disease) J44.9 [facility] [address] [address]- 1885 May, [facility] [address] [address]- 6911 May, [facility] [address] [address]- 1962 May, [facility] [address] [address]- 5008 May, [facility] [address] [address]- 0737 May, [facility] [address] [address]- 8679 May, Renal failure N19 and Pneumonia, organism unspecified, unspecified laterality, unspecified part of lung J18.9 [facility] [address] [address]- 9436 Apr, [facility] [address] [address]- 4726 Apr, [facility] [address] [address]- 1696 Apr, [facility] [id number] [place] [address]- 2989 Apr, Diabetes mellitus 250.00 [facility] [address] [id number] [place] [address]- 3625 14 Apr, 2015 [facility] [address] [id number] [place] [address]- 8671 14 Apr, 2015 [facility] [address] [id number] [place] [address], [place] [address]- 9087 Apr, [facility] [address] [id number] [place] [address]- 0260 Apr, [facility] [address] [id number] [place] [address], [place] [address]- 7803 31 Mar, 2015 [facility] [address] [place] [address]- 0695 Mar, [facility] [id number] [place] [address]- 7023 Mar, [facility] [id number] [place] [address]- 2069 16 Mar, 2015 Renal failure N19 [facility] [address] [place] [address]- 9464 14 Mar, 2015 [facility] [id number] [place] [address]- 3753 Mar, [facility] [address] [facility] [id number] [place] [address]- 3261 04 Mar, 2015 [facility] [address] [facility] [id number] [place] [address]- 0186 24 Jan, 2015 [facility] [address] [facility] [id number] [place] [address]- 3859 18 Jan, 2015 [facility] [address] [facility] [id number] [place] 6903 17 Jan, 2015 [facility] [address]005[address] [address]- 9633 Jan, [facility] [address] [facility] [id number] [place] [address]- 4936 Dec, [facility] [place] [facility] [address] [facility] [id number] [place] [address]- 3261 Dec, [facility] [place] [facility] [id number] [place] [address]- 9836 Dec, [facility] [address] [facility] [id number] [place] [address] 64703- 1596 Nov, [facility] [address] [facility] [id number] [place] [address], [place] [address]- 9326 Nov, [facility] [id number] [place] [address], [place] [address]- 3496 Nov, [facility] [address] [place] [address] 21204- 6167 Oct, [facility] [address]005[address] [address]- 6109 Oct, [facility] [id number] [place] [address] 19279- 1138 Oct, Renal failure 586 and Obesity 278.00 [facility] [address] [id number] [address]- 2502 Oct, [facility] [place] [facility] [address]005[address] [address]- 2544 Oct, [facility] [place] [facility] [address] [facility] [id number] [place] [address]- 4898 Oct, [facility] [place] [facility] [address] [address]- 2279 Sep, [facility] [place] [facility] [address] [facility] [id number] [place] [address]- 6373 Sep, [facility] [address] [address]- 3618 Sep, Diabetes mellitus 250.00 and Congestive heart failure, unspecified 428.0 [facility] [address] [id number] [place] [address] Aug, [facility] [address] [facility] [id number] [place] [address] Aug, [facility] [address] [facility] [id number] [place] [address] Aug, [facility] [address] [facility] [id number] [place] [address] July, [facility] [address] [id number] [place] [address] July, [facility] [id number] [place] [address] July, Heart murmur, systolic 785.2 [facility] [id number] [place] [address] July, [facility] [address] [id number] [address] July, [facility] [id number] [place] [address] Jun, [facility] [id number] [address] Jun, [facility] [address] [id number] [address] May, [facility] [address] [id number] [place] [address] May, [facility] [id number] [place] [address] May, [facility] [address] [facility] [id number] [place] [address] May, [facility] [address] [id number] [address] 16 May, 2014 [facility] [place] [facility] [address] [id number] [place] [address] 16 May, 2014 [facility] [place] [facility] [address] [facility] [id number] [place] [address] May, 2014 [facility] [place] [facility] [address] [facility] [id number] [place] [address] 10 May, 2014 [facility] [place] [facility] [address] [facility] [id number] [place] [address] May, [facility] [place] [facility] [address] [facility] [id number] [place] [address] May, [facility] [place] [facility] [address] [facility] [id number] [place] [address] May, 2014 [facility] [place] [facility] [address] [facility] [id number] [place] [address] May, 2014 [facility] [place] [facility] [address] [facility] [id number] [place] [address] May, 2014 [facility] [place] [facility] [address] [facility] [id number] [place] [address] May, 2014 [facility] [place] [facility] [address] [facility] [id number] [place] [address] May, 2014 [facility] [place] [facility] [address] [facility] [id number] [place] [address] May, 2014 [facility] [place] [facility] [address] [facility] [id number] [place] [address] May, 2014 [facility] [place] [facility] [address] [facility] [id number] [place] [address] May, 2014 [facility] [place] [facility] [address] [facility] [id number] [place] [address] May, 2014 [facility] [place] [facility] [address] [facility] [id number] [place] [address] May2014 [facility] [place] [facility] [address] [id number] [place] [address]852 May, 2014 [facility] [place] [facility] [address] [id number] [place] [address] May, 2014 [facility] [place] [facility] [address] [id number] [place] [address] 9790 May, 2014 [facility] [place] [facility] [address] [id number] [place] [address] 1992 May, 2014 [facility] [place] [facility] [address] [id number] [place] [address] 9775 May, [facility] [place] [facility] [address] [id number] [place] [address] 5849 May, [facility] [place] [facility] [address] [id number] [place] [address] 9266 Apr, [facility] [place] [facility] [address] [id number] [place] [address] 8517 Apr, [facility] [place] [facility] [address] [id number] [place] [address] 7943 Apr, [facility] [place] [facility] [address] [id number] [place] [address] 8207 Apr, [facility] [place] [facility] [address] [id number] [place] [address] 8287 Apr, [facility] [place] [facility] [address] [id number] [place] [address] 4[address] Apr, [facility] [place] [facility] [address] [id number] [place] [address] 5077 Apr, [facility] [place] [facility] [address] [id number] [place] [address] 3659 Apr, [facility] [place] [facility] [address] [id number] [place] [address] 8980 Mar, [facility] [place] [facility] [address] [id number] [place] [address]- 4148 Mar, [facility] [place] [facility] [address] [id number] [place] [address] 3936 Mar, [facility] [place] [facility] [address] [id number] [place] [address]- 1276 Mar, [facility] [place] [facility] [address] [id number] [place] [address]- 1606 Mar, [facility] [place] [facility] [address] [id number] [place] [address] 1310 Mar, [facility] [place] [facility] [address] [id number] [place] [address] 8082 Mar, [facility] [place] [facility] [address] [id number] [place] [address] 5881 Mar, [facility] [place] [facility] [address] [id number] [place] [address]- 3542 Mar, [facility] [place] [facility] [address] [id number] [place] [address]- 1289 Mar, [facility] [place] [facility] [address] [id number] [place] [address] 2294 Mar, [facility] [place] [facility] [address] [id number] [place] [address]- 8277 Mar, [facility] [place] [facility] [address] [id number] [place] [address]- 4744 Mar, [facility] [place] [facility] [address] [id number] [place] [address]- 7778 Mar, [facility] [place] [facility] [address] [id number] [place] [address]- 0184 Mar, [facility] [place] [facility] [address] [id number] [place] [address]- 2572 10 Mar, 2014 [facility] [place] [facility] [address] [id number] [place] [address]- 3343 Mar, [facility] [place] [facility] [address] [id number] [place] [address] 1925 Mar, [facility] [place] [facility] [address] [id number] [place] [address] 2159 Mar, [facility] [place] [facility] [address] [id number] [place] Mar, [facility] [place] [facility] [address] [id number] [place] [address] 7799 Mar, [facility] [place] [facility] [address] [id number] [place] [address]- 7410 Mar, [facility] [place] [facility] [address] [id number] [place] [address] 8167 Jan, [facility] [place] [facility] [address] [id number] [place] [address]- 5653 Jan, [facility] [place] [facility] [address] [id number] [place] [address]- 0017 Jan, [facility] [place] [facility] [address] [id number] [place] [address]- 9327 Jan, [facility] [place] [facility] [address] [id number] [place] [address]- 7793 Jan, [facility] [place] [facility] [address] [id number] [place] [address]- 1185 Jan, [facility] [place] [facility] [address] [id number] [place] [address]- 5316 Jan, [facility] [place] [facility] [address] [id number] [place] [address]- 9356 Jan, [facility] [place] [facility] [address] [id number] [place] [address]- 4099 Jan, [facility] [place] [facility] [address] [id number] [place] [address]- 7142 Jan, [facility] [place] [facility] [address] [id number] [place] [address]- 1566 Jan, [facility] [place] [facility] [address] [id number] [place] [address]- 5117 Jan, [facility] [place] [facility] [address] [id number] [place] [address]- 9328 Jan, [facility] [place] [facility] [address] [id number] [place] [address]- 5112 Jan, [facility] [place] [facility] [address] [id number] [place] [address]- 4219 Jan, [facility] [place] [facility] [address] [id number] [place] [address]- 9497 Jan, [facility] [place] [facility] [address] [id number] [place] [address]- 0675 Jan, [facility] [place] [facility] [address] [id number] [place] [address]- 9161 Jan, [facility] [place] [facility] [address] [id number] [place] [address]- 0189 Jan, [facility] [place] [facility] [address] [id number] [place] [address]- 1724 Jan, [facility] [place] [facility] [address] [id number] [place] [address]- 7332 Dec, [facility] [place] [facility] [address] [id number] [place] [address]- 4065 Dec, [facility] [place] [facility] [address] [id number] [place] [address]- 4689 Dec, [facility] [place] [facility] [address] [id number] [place] [address]- 4352 Dec, [facility] [place] [facility] [address] [id number] [place] [address]- 9291 Dec, [facility] [place] [facility] [address] [id number] [place] [address]- 2561 Dec, [facility] [place] [facility] [address] [id number] [place] [address]- 0017 14 Dec, 2013 [facility] [place] [facility] [address] [id number] [place] [address]- 0278 10 Dec, 2013 [facility] [place] [facility] [address] [id number] [place] [address]- 2882 10 Dec, 2013 [facility] [place] [facility] [address] [id number] [place] [address]- 2594 08 Dec, 2013 [facility] [place] [facility] [address] [id number] [place] [address]- 5933 08 Dec, 2013 [facility] [place] [facility] [address] [id number] [place] [address]- 1499 Dec, [facility] [place] [facility] [address] [id number] [place] [address]- 2261 Dec, [facility] [place] [facility] [address] [id number] [place] [address]- 8368 Dec, [facility] [place] [facility] [address] [id number] [place] [address]- 3337 Dec, [facility] [place] [facility] [address] [id number] [place] [address]- 7833 22 Nov, 2013 [facility] [place] [facility] [address] [id number] [place] [address]- 2788 22 Nov, 2013 [facility] [place] [facility] [address] [id number] [place] [address]- 0743 19 Nov, 2013 [facility] [place] [facility] [address] [id number] [place] [address]- 2547 19 Sep, 2013 [facility] [place] [facility] [address] [id number] [place] [address] 2545 13 Nov, 2013 [facility] [place] [facility] [address] [id number] [place] [address]- 2543 13 Nov, 2013 [facility] [place] [facility] [address] [id number] [place] [address]- 8928 Nov, 2013 [facility] [place] [facility] [address] [id number] [place] [address]- 5500 Nov, 2013 [facility] [place] [facility] [address] [id number] [place] [address]- 4419 Nov, 2013 [facility] [place] [facility] [address] [id number] [place] [address]- 7571 Nov, 2013 [facility] [place] [facility] [address] [id number] [place] [address]- 8468 Nov, 2013 [facility] [place] [facility] [address] [id number] [place] [address]- 6455 Nov, [facility] [place] [facility] [address] [id number] [place] [address]- 7610 Nov, [facility] [place] [facility] [address] [id number] [place] [address]- 8967 Oct, [facility] [place] [facility] [address] [id number] [place] [address]- 7897 Oct, [facility] [place] [facility] [address] [id number] [place] [address]- 5893 Oct, [facility] [place] [facility] [address] [id number] [place] [address]- 3243 Oct, [facility] [place] [facility] [address] [id number] [place] [address]- 4951 Oct, [facility] [place] [facility] [address] [id number] [place] [address]- 6844 Sep, [facility] [place] [facility] [address] [id number] [place] [address]- 1931 Sep, [facility] [place] [facility] [address] [id number] [place] [address]- 1696 Sep, [facility] [place] [facility] [address] [id number] [place] [address]- 0530 Sep, [facility] [place] [facility] [address] [id number] [place] [address]- 3839 Aug, [facility] [place] [facility] [address] [id number] [place] [address]- 5401 Aug, [facility] [place] [facility] [address] [id number] [place] [address]- 7962 Aug, [facility] [place] [facility] [address] [id number] [place] [address]- 6578 Aug, [facility] [place] [facility] [address] [id number] [place] [address]- 5510 Aug, [facility] [place] [facility] [address] [id number] [place] [address]- 7696 Aug, [facility] [place] [facility] [address] [id number] [place] [address]- 5255 Aug, [facility] [place] [facility] [address] [id number] [place] [address]- 6639 Aug, [facility] [place] [facility] [address] [id number] [place] [address]- 7373 Aug, [facility] [place] [facility] [address] [id number] [place] [address]- 1724 Aug, [facility] [place] [facility] [address] [id number] [place] [address]- 9241 Aug, [facility] [place] [facility] [address] [id number] [place] [address]- 5804 Aug, [facility] [place] [facility] [address] [id number] [place] [address]- 9045 Aug, [facility] [place] [facility] [address] [id number] [place] [address]- 8583 Aug, [facility] [place] [facility] [address] [id number] [place] [address]- 8006 Aug, [facility] [place] [facility] [address] [id number] [place] [address]- 3548 Aug, [facility] [place] [facility] [address] [id number] [place] [address]- 1209 Aug, [facility] [place] [facility] [address] [id number] [place] [address]- 1620 Aug, [facility] [place] [facility] [address] [id number] [place] [address]- 9227 Aug, [facility] [place] [facility] [address] [id number] [place] [address]- 8120 Aug, [facility] [place] [facility] [address] [id number] [place] [address]- 6032 Aug, [facility] [place] [facility] [address] [id number] [place] [address]- 1227 Aug, [facility] [place] [facility] [address] [id number] [place] [address]- 7922 Aug, [facility] [place] [facility] [address] [id number] [place] [address]- 7452 Aug, [facility] [place] [facility] [address] [id number] [place] [address]- 2393 July, [facility] [place] [facility] [address] [id number] [place] [address]- 1124 July, [facility] [place] [facility] [address] [id number] [place] [address]- 7464 July, [facility] [place] [facility] [address] [id number] [place] [address]- 7011 July, [facility] [place] [facility] [address] [id number] [place] [address]- 6647 July, [facility] [place] [facility] [address] [id number] [place] [address]- 6978 July, [facility] [place] [facility] [address] [id number] [place] [address]- 0761 Jun, [facility] [place] [facility] [address] [id number] [place] [address]- 9535 Jun, [facility] [place] [facility] [address] [id number] [place] [address]- 0360 Jun, [facility] [place] [facility] [address] [id number] [place] [address]- 2213 Jun, [facility] [place] [facility] [address] [id number] [place] [address]- 4860 Jun, [facility] [place] [facility] [address] [id number] [place] [address]- 6257 Jun, [facility] [place] [facility] [address] [id number] [place] [address]- 9801 Jun, [facility] [place] [facility] [address] [id number] [place] [address]- 9849 Jun, [facility] [place] [facility] [address] [id number] [place] [address]- 1274 Jun, [facility] [place] [facility] [address] [id number] [place] [address]- 0597 Jun, [facility] [place] [facility] [address] [id number] [place] [address]- 4751 Jun, [facility] [place] [facility] [address] [id number] [place] [address]- 8669 Jun, [facility] [place] [facility] [address] [id number] [place] [address]- 2060 Jun, [facility] [place] [facility] [address] [id number] [place] [address]- 3642 Jun, [facility] [place] [facility] [address] [id number] [place] [address]- 3497 Jun, [facility] [place] [facility] [address] [id number] [place] [address]- 8968 May, [facility] [place] [facility] [address] [id number] [place] [address]- 9143 May, [facility] [place] [facility] [address] [id number] [place] [address]- 1014 May, [facility] [place] [facility] [address] [id number] [place] [address]- 1223 May, [facility] [place] [facility] [address] [id number] [place] [address]- 3662 May, [facility] [place] [facility] [address] [facility] [id number] [place] [address]- 5619 May, [facility] [place] [facility] [address] [facility] [id number] [place] [address]- 8536 May, [facility] [place] [facility] [address] [id number] [place] [address]- 2369 May, [facility] [place] [facility] [address] [facility] [id number] [place] [address]- 8463 May, [facility] [place] [facility] [address] [id number] [place] [address]- 6393 May, [facility] [place] [facility] [address] [facility] [id number] [place] [address]- 8317 May, [facility] [place] [facility] [address] [facility] [id number] [place] [address]- 1925 May, [facility] [place] [facility] [address] [facility] [id number] [place] [address]- 4048 May, [facility] [place] [facility] [address] [facility] [id number] [place] [address]- 5229 May, [facility] [place] [facility] [address] [facility] [id number] [place] [address]- 6285 May, [facility] [place] [facility] [address] [id number] [place] [address]- 3746 May, [facility] [place] [facility] [address] [facility] [id number] [place] [address]- 9347 May, [facility] [place] [facility] [address] [facility] [id number] [place] [address]- 2916 Apr, [facility] [place] [facility] [address] [id number] [place] [address]- 7271 Apr, [facility] [place] [facility] [address] [id number] [place] [address]- 1250 Apr, [facility] [place] [facility] [address] [id number] [place] [address]- 2732 Apr, [facility] [place] [facility] [address] [id number] [place] [address]- 1307 Apr, [facility] [address] [id number] [place] [address]- 5123 Apr, [facility] [place] [facility] [address] [id number] [place] [address]- 1922 Apr, [facility] [address] [id number] [place] [address]- 0119 Apr, [facility] [address] [id number] [place] [address]- 4494 Apr, [facility] [place] [facility] [address] [id number] [place] [address]- 2008 Apr, [facility] [place] [facility] [address] [id number] [place] [address]- 3339 Apr, [facility] [place] [facility] [address] [id number] [place] [address]- 9819 Apr, [facility] [place] [facility] [address] [id number] [place] [address]- 1287 Apr, [facility] [place] [facility] [address] [id number] [place] [address]- 9460 Apr, [facility] [place] [facility] [address] [id number] [place] [address]- 4345 Apr, [facility] [place] [facility] [address] [id number] [place] [address]- 5074 Apr, [facility] [place] [facility] [address] [id number] [place] [address]- 0448 30 Mar, 2012 [facility] [address] [id number] [place] [address]- 5186 30 Mar, 2012 [facility] [place] [facility] [address] [id number] [place] 2836 30 Mar, 2013 [facility] [place] [facility] [address] [id number] [place] [address]- 4732 30 Mar, 2013 [facility] [place] [facility] [address] [id number] [place] [address]- 9159 18 Mar, 2013 [facility] [place] [facility] [address] [id number] [place] [address]- 5345 18 Mar, 2013 [facility] [place] [facility] [address] [id number] [place] [address]- 5708 18 Mar, 2013 [facility] [address] [id number] [place] [address]- 6034 18 Mar, 2013 [facility] [place] [facility] [address] [id number] [place] [address]- 4870 17 Mar, 2013 [facility] [place] [facility] [address] [id number] [place] [address]- 1008 17 Mar, 2013 [facility] [place] [facility] [address] [id number] [place] [address]- 4629 05 Mar, 2013 [facility] [place] [facility] [address] [id number] [place] [address]- 4968 05 Mar, 2013 [facility] [place] [facility] [address] [id number] [place] [address]- 4350 04 Mar, 2013 [facility] [place] [facility] [address] [id number] [place] [address]- 8133 Mar, [facility] [place] [facility] [address] [id number] [place] [address]- 7567 04 Mar, 2013 [facility] [place] [facility] [address] [id number] [place]14 04 Mar, 2013 [facility] [place] [facility] [address] [id number] [place] [address] 2549 Mar, [facility] [address] [id number] [place] [address]- 1364 Mar, [facility] [place] [facility] [address] [id number] [place] [address]- 7896 Jan, [facility] [address] [id number] [place] [address]- 0979 Jan, [facility] [place] [facility] [address] [id number] [place] [address]- 7461 Jan, [facility] [address] [id number] [place] [address]- 1323 Jan, [facility] [address] [id number] [place] [address] Nov, [facility] [place] [facility] [address] [id number] [place] [address] Nov, [facility] [address] [id number] [place] [address] Nov, [facility] [place] [facility] [address] [id number] [place] [address] Nov, [facility] [address] [id number] [place] [address] Oct, [facility] [place] [facility] [address] [id number] [place] [address] Oct, [facility] [place] [facility] [address] [id number] [place] [address] Oct, [facility] [place] [facility] [address] [id number] [place] [address] Oct, [facility] [place] [facility] [address] [id number] [place] [address] Sep, [facility] [place] [facility] [address] [id number] [place] [address] Sep, [facility] [address] [id number] [place] [address] Sep, [facility] [place] [facility] [address] [id number] [place] [address] Sep, [facility] [place] [facility] [address] [id number] [place] [address] Sep, [facility] [place] [facility] [address] [id number] [place] [address] Sep, [facility] [place] [facility] [address] [id number] [place] [address] Sep, [facility] [place] [facility] [address] [id number] [place] [address] Sep, [facility] [place] [facility] [address] [id number] [place] [address] Sep, [facility] [place] [facility] [address] [id number] [place] [address] Aug, [facility] [place] [facility] [address] [id number] [place] [address] Aug, [facility] [place] [facility] [address] [id number] [place] [address] Aug, [facility] [place] [facility] [address] [id number] [place] [address] Aug, [facility] [place] [facility] [address] [id number] [place] [address] July, [facility] [place] [facility] [address] [id number] [place] [address] July, [facility] [place] [facility] [address] [id number] [place] [address] July, [facility] [place] [facility] [address] [id number] [place] [address] July, [facility] [place] [facility] [address] [id number] [address] July, [facility] [id number] [address] July, [facility] [id number] [address] [address] July, [facility] [id number] [address] Jun, [facility] [id number] [address] May, [facility] [id number] [address] May, [facility] [id number] [address] May, [facility] [id number] [address] May, [facility] [id number] [address] May, [facility] [id number] [address] [address] May, [facility] [id number] [address] May, [facility] [id number] [address] [address] May, IMMUNIZATIONS No Known Immunizations SOCIAL HISTORY Never Assessed REASON FOR VISIT Refill request PLAN OF CARE VITAL SIGNS MEDICATIONS No [...]
--- OUTSIDE RECORDS SUMMARY | 2017-12-18 19:53 | XMS REPORT ---
Author Author MCKENNA HEBERT Organization [facility] Address [address] [place] [address] Care Team Providers Care Italian Lecturer Name Role Phone MCKENNA HEBERT Unavailable PROBLEMS Type Condition ICD9-CM Code LIL42-OW Code Onset Dates Condition Status SNOMED Code Problem Neuropathy G62.9 Active 951226543 Problem Intra-dialytic hypotension I95.3 Active 192150337 Problem Amput below knee, unilat S88.119A Active 93318269 Problem Cellulitis of right lower extremity L03.115 Active 614006442 Problem Diabetes type 2, controlled E11.9 Active 26701809 Problem Renal failure N19 Active 86623426 Problem 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 Active 6245486 Problem Other chronic pain G89.29 Active 07249833 Problem Seasonal allergic rhinitis due to other allergic trigger J30.89 Active 515020517 Problem Chronic congestive heart failure, unspecified congestive heart failure type I50.9 Active 90529134 Problem Angina pectoris I20.9 Active 568771018 Problem Chronic congestive heart failure, unspecified heart failure type I50.9 Active 76953624 ALLERGIES No Information ENCOUNTERS Encounter Location Date Diagnosis [facility] [address], [place] [address] Oct, [facility] [address] [place] [address]18[address] 8969 Sep, [facility] [id number] [place] [address] [id number] Sep, Dental examination Z01.20 and Dental caries K02.9 [facility] [id number] [place] [address] 33457- 5108 Sep, [facility] [id number] [place] [address] 93613- 4058 Sep, [place] [address], [place] [address] 7407 Sep, Other chronic pain G89.29 and Pain in right knee M25.561 [facility] [id number], [place] [address] 6[address] 05 Sep, 2017 [facility] [id number] [place] [address] 11991- 3931 Aug, [facility] [id number] [place] [address] 37014- 2343 Aug, 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 [facility] [id number] [place] [address] 33562- 1371 Aug, [facility] [id number] [place] [address] 41155- 5534 Aug, Diabetes type 2, controlled E11.9 and Acute pain of right knee M25.561 [facility] [address], [place] [address]- 4469 Aug, [facility] [id number] [place] [address] 85763- 8534 July, [facility] [address] [place] [address] 03216- 0304 16 Jun, 2017 [facility] [address], [place] [address]- 2482 13 Jun, 2017 [facility] [address], [place] [address]- 2389 10 Jun, 2017 Diabetes type 2, controlled E11.9 [facility] [address], [place] [address]- 3358 Jun, [facility] [address], [place] [address]- 2325 28 May, 2017 [facility] [address], [place] [address]- 9291 May, [facility] [address], [place] [address]- 4173 May, [facility] [id number] [place] [address] 33179- 0507 May, Chronic congestive heart failure, unspecified congestive heart failure type I50.9 [facility] [id number] [place] [address] 82190- 5099 May, Diabetes type 2, controlled E11.9 ; BMI 50.0-59.9, adult Z68.43 ; Chronic congestive heart failure, unspecified heart failure type I50.9 ; Angina pectoris I20.9 ; Seasonal allergic rhinitis due to other allergic trigger J30.89 and Renal failure N19 [facility] [address] [id number] May, [facility] [id number] [place] [address] 47758- 9568 May, [facility] [id number] [place] [address] 04829- 8754 May, [facility] [id number] [place] [address] 54742- 8758 May, [facility] [id number] [place] [address] 84695- 5283 May, [facility] [address] [place] [address] 37991- 4209 Apr, BMI 50.0-59.9, adult Z68.43 [facility] [id number] [place] [address] 57713- 7917 Apr, BMI 50.0-59.9, adult Z68.43 ; Post-procedural fever R50.82 and Bronchitis J40 [facility] [address] [place] [address] 37141- 8747 Apr, Chronic congestive heart failure, unspecified congestive heart failure type I50.9 [facility] [id number] [place] [address] [place] [address]- 8378 Jan, [facility] [id number] [place] [address] 29003- 0480 Jan, Diabetes type 2, controlled E11.9 [facility] [address] [address]- 3094 Jan, Neuropathy G62.9 [facility] [address] [facility] [id number] [place] [address] 86621- 7429 Jan, [facility] [id number] [place] [address] 78174- 2135 Jan, [facility] [address] [facility] [id number] [place] [address] 96969- 2946 Jan, [facility] [id number] [place] [address] 08588- 4822 Jan, [facility] [id number] [place] [address] 47005- 9167 Jan, [facility] [address], [place] [address]- 9205 Dec, [facility] [address] [place] [address] 69743- 8805 Dec, [facility] [address], [place] [address]- 0899 Dec, Diabetes type 2, controlled E11.9 [facility] [address] [facility] [id number], [place] [address]- 7097 Dec, [facility] [id number], [place] [address]- 1354 Dec, [facility] [address] [place] [address] 13664- 9128 Dec, Chronic congestive heart failure, unspecified congestive heart failure type I50.9 [facility] [id number], [place] [address]- 5338 Dec, [facility] [address], [place] [address]- 7475 Dec, [facility] [address], [place] [address]- 8375 Nov, Chronic congestive heart failure, unspecified congestive heart failure type I50.9 [facility] [address], [place] [address]- 7300 Nov, Chronic congestive heart failure, unspecified congestive heart failure type I50.9 [facility] [address], [place] [address]- 1889 Nov, [facility] [address], [place] [address]- 6676 Oct, [facility] [address], [place] [address]- 1698 Oct, [facility] [address], [place] [address]- 4819 Oct, Chronic congestive heart failure, unspecified congestive heart failure type I50.9 [facility] [address], [place] [address]- 9812 Oct, [facility] [address], [place] [address]- 6967 Oct, Pneumonia of both lungs due to infectious organism, unspecified part of lung J18.9 [facility] [address], [place] [address]- 7525 Oct, [facility] [id number], [place] [address]- 2120 Oct, Diabetes type 2, controlled E11.9 [facility] [address], [place] [address]- 5510 Oct, Diabetes type 2, controlled E11.9 [facility] [address], [place] [address]- 8894 Sep, [facility] [address], [place] [address]- 2940 Sep, Neuropathy G62.9 [facility] [id number] [place] [address] 45446- 5926 Aug, Intra-dialytic hypotension I95.3 [facility] [address] [place] [address] 2546 July, [facility] [id number] [place] [address] 11054- 1526 July, [facility] [id number] [place] [address] 58605- 5746 July, [facility] [id number] [place] [address] 970728- 7203 July, Amput below knee, unilat S88.119A [facility] [id number] [place] [address] 69749- 8466 May, [facility] [id number] [place] [address] 03082- 5952 May, Neuropathy G62.9 [facility] [address] [address]- 6274 May, [facility] [address] 9945 May, [facility] [address], [place] [address]- 4716 May, [facility] [address], [place] [address] 2544 May, [facility] [id number] [place] [address] 96813- 2886 May, Neuropathy G62.9 [facility] [address], [place] [address]- 9076 Apr, [facility] [id number], [place] [address]- 8716 Apr, [facility] [address] [facility] [id number] [place] [address]- 8437 Apr, Diabetes type 2, controlled E11.9 and Renal failure N[address] [facility] [address] [id number] [place] [address] -2781 Apr, [facility] [address] [facility] [id number] [place] [address], [place] [address]- 7751 Apr, [facility] [address] [id number] [place] [address]- 7151 Mar, [facility] [address] [facility] [id number] [place] [address], [place] [address]- 1264 Mar, [facility] [id number] [place] [address]- 8630 Mar, [facility] [id number] [place] [address], [place] [address]- 7178 Mar, [facility] [address] [facility] [id number] [place] [address]- 3019 Mar, [facility] [address] [place] [address]- 2698 Jan, Localized edema R60.0 [facility] [id number] [place] [address]- 8490 Jan, [facility] [id number], [place] [address]- 9497 Jan, [facility] [address] [facility] [id number] [place] [address]- 4269 Jan, [facility] [address] [facility] [id number] [place] [address]- 7718 Jan, [facility] [id number] [place] [address]- 6867 Jan, [facility] [address], [place] [address]- 1508 Jan, [facility] [address] [place] [address] 29452- 3190 Dec, Diabetes type 2, controlled E11.9 and Chronic nonintractable headache, unspecified headache type R51 [facility] [address] [place] [address] 48715- 8479 Dec, [facility] [id number] [place] [address] 46521- 1482 Dec, [facility] [id number] [place] [address] 36466- 7360 Nov, [facility] [id number] [place] [address] 47545- 2621 Nov, [facility] [id number] [place] [address] 65440- 2777 Oct, [facility] [id number] [place] [address] 66398- 2610 Oct, Migraine without status migrainosus, not intractable, unspecified migraine type G43.909 [facility] [id number] [place] [address] 74370- 7518 Oct, [facility] [address] [place] [address] 88299- 6849 Sep, Amput below knee, unilat S88.119A and Neuropathy G62.9 [facility] [address] [place] [address] 03812- 6207 Sep, [facility] [address] [place] [address] 70374- 9497 Sep, [facility] [id number] [place] [address] 60296- 2050 Sep, [facility] [address] [place] [address] 67041- 2465 Aug, [facility] [address] [place] [address]- 1260 Aug, [facility] [address] [facility] [id number] [place] [address]- 3256 Aug, Diabetes type 2, controlled E11.9 [facility] [address] [facility] [id number] [place] [address] 2546 Aug, [facility] [address] [facility] [id number] [place] [address]- 6049 Jun, Diabetes type 2, controlled E11.9 and Neuropathy G62.9 [facility] [address] [facility] [id number] [place] [address]- 0844 14 Jul, 2015 [facility] [address] [facility] [id number] [place] [address]- 0249 Jun, [facility] [address] [facility] [id number] [place] [address]- 6169 Jun, [facility] [address] [facility] [id number] [place] [address]- 3385 Jun, [facility] [address] [facility] [id number] [place] [address]- 3263 May, [facility] [address] [facility] [id number] [place] [address]- 7132 May, Diabetes type 2, controlled E11.9 [facility] [address] [facility] [id number] [place] [address]- 5494 May, [facility] [address] [facility] [id number] [place] [address]- 2548 May, [facility] [address] [facility] [id number] [place] [address]- 0670 May, [facility] [address] [facility] [id number] [place] [address]- 9696 May, [facility] [address] [facility] [id number] [place] [address]- 1165 May, [facility] [address], [place] [address]- 4097 May, [facility] [address] [place] [address] 26514- 9525 May, [facility] [address], [place] [address]- 2750 May, COPD (chronic obstructive pulmonary disease) J44.9 [facility] [address], [place] [address]- 7127 May, [facility] [address] [place] [address] 16903- 3170 May, [facility] [id number] [place] [address] 81695- 2951 May, [facility] [address] [place] [address] 80170- 4032 May, [facility] [address], [place] [address]- 5569 May, [facility] [address] [place] [address] 23542- 4123 May, Renal failure N19 and Pneumonia, organism unspecified, unspecified laterality, unspecified part of lung J18.9 [facility] [address], [place] [address]- 2958 Apr, [facility] [address], [place] [address]- 4830 Apr, [facility] [address], [place] [address]- 9662 Apr, [facility] [address], [place] [address]- 2676 Apr, Diabetes mellitus 250.00 [facility] [address], [place] [address]- 5231 14 Apr, 2015 [facility] [place] [facility] [address] [id number] [place] [address]- 8563 14 Apr, 2015 [facility] [place] [facility] [address] [id number] [place] [address]- 3209 13 Apr, 2015 [facility] [place] [facility] [address] [id number] [place] [address]- 8234 07 Apr, 2015 [facility] [place] [facility] [address] [id number] [place] [address], [place] [address]- 3938 31 Mar, 2015 [facility] [place] [facility] [address] [id number] [place] [address]- 4074 28 Mar, 2015 [facility] [place] [facility] [address] [id number] [place] [address], [place] [address]- 9434 23 Mar, 2015 [facility] [place] [facility] [address] [id number] [place] [address]- 2680 16 Mar, 2015 Renal failure N19 [facility] [place] [facility] [address] [facility] [id number] [place] [address]- 2323 14 Mar, 2015 [facility] [place] [facility] [address] [facility] [id number] [place] [address]- 3800 Mar, [facility] [place] [facility] [id number] [place] [address]- 0030 04 Mar, 2015 [facility] [place] [facility] [address] [id number] [place] [address]- 6915 24 Jan, 2015 [facility] [place] [facility] [address] [id number], [place] [address]- 5991 18 Jan, 2015 [facility] [place] [facility] [address] [id number] [place] [address]- 7123 17 Jan, 2015 [facility] [place] [facility] [address] [id number] [place] [address]- 7602 13 Jan, 2015 [facility] [place] [facility] [address] [facility] [id number] [place] [address]- 1824 20 Dec, 2014 [facility] [place] [facility] [address] [id number], [place] [address]- 1286 Dec, [facility] [id number], [place] [address]- 9302 Dec, [facility] [address] [id number], [place] [address]- 3454 Nov, [facility] [address], [place] [address]- 3636 Nov, [facility] [address] [place] [address] 27915- 5877 Nov, [facility] [address] [place] [address] 31390- 5269 Oct, [facility] [address], [place] [address]- 5595 Oct, [facility] [address] [place] [address] 25090- 1829 Oct, Renal failure 586 and Obesity 278.00 [facility] [address], [place] [address]- 0791 Oct, [facility] [address], [place] [address]- 4352 Oct, [facility] [address], [place] [address]- 1901 Oct, [facility] [address], [place] [address]- 2519 Sep, [facility] [address], [place] [address]- 0799 Sep, [facility] [address], [place] [address]- 6923 Sep, Diabetes mellitus 250.00 and Congestive heart failure, unspecified 428.0 [facility] [address], [place] [address]- 3793 Aug, [facility] [address] [place] [address]- 7324 Aug, [facility] [address] [id number] [place] [address]- 4173 Aug, [facility] [address] [id number] [place] [address] July, [facility] [address] [id number] [place] [address] July, [facility] [place] [facility] [address] [id number] [place] [address] July, Heart murmur, systolic 785.2 [facility] [address] [id number] [place] [address] July, [facility] [address] [id number] [place] [address] July, [facility] [address] [id number] [place] [address] Jun, [facility] [address] [id number] [place] [address] Jun, [facility] [place] [facility] [address] [id number] [place] [address] May, [facility] [place] [facility] [address] [id number] [place] [address] 23 May, 2014 [facility] [place] [facility] [address] [id number] [place] [address] 18 May, 2014 [facility] [place] [facility] [address] [id number] [place] [address] 18 May, 2014 [facility] [place] [facility] [address] [id number] [place] [address] 16 May, 2014 [facility] [place] [facility] [address] [id number] [place] [address] 16 May, 2014 [facility] [place] [facility] [address] [id number] [place] [address] May, 2014 [facility] [place] [facility] [address] [facility] [id number] [place] [address] May, 2014 [facility] [place] [facility] [address] [facility] [id number] [place] [address] May, 2014 [facility] [place] [facility] [address] [facility] [id number] [place] [address] May, 2014 [facility] [place] [facility] [address] [facility] [id number] [place] [address] May, 2014 [facility] [place] [facility] [address] [facility] [id number] [place] [address] May, 2014 [facility] [place] [facility] [address] [facility] [id number] [place] [address] May, 2014 [facility] [place] [facility] [address] [facility] [id number] [place] [address] May, 2014 [facility] [place] [facility] [address] [facility] [id number], [place] [address] 18 May, 2014 [facility] [place] [facility] [address] [facility] [id number] [place] [address] May, 2014 [facility] [place] [facility] [address] [facility] [id number] [place] [address] May, 2014 [facility] [place] [facility] [address] [facility] [id number] [place] [address] May, 2014 [facility] [place] [facility] [address] [facility] [id number], [place] [address] May, 2014 [facility] [place] [facility] [address] [facility] [id number] [place] [address] May, 2014 [facility] [place] [facility] [address] [facility] [id number], [place] [address] 16 May, 2014 [facility] [place] [facility] [address] [facility] [id number], [place] [address] 16 May, 2014 [facility] [place] [facility] [address] [id number] [place] [address] May, [facility] [place] [facility] [address] [id number] [place] [address] May, [facility] [place] [facility] [address] [id number] [place] [address] May, [facility] [place] [facility] [address] [id number] [place] [address] 7729 May, [facility] [place] [facility] [address] [id number] [place] [address] 8864 Apr, [facility] [place] [facility] [address] [id number] [place] [address]85 Apr, [facility] [place] [facility] [address] [id number] [place] [address] 8140 Apr, [facility] [place] [facility] [address] [id number] [place] [address] 1453 Apr, [facility] [place] [facility] [address] [id number] [place] [address] 1606 Apr, [facility] [place] [facility] [address] [id number] [place] [address] 3150 Apr, [facility] [place] [facility] [address] [id number] [place] [address] 3719 Apr, [facility] [place] [facility] [address] [id number] [place] [address]- 2041 Apr, [facility] [place] [facility] [address] [id number] [place] [address] 8564 Mar, [facility] [place] [facility] [address] [id number] [place] [address]- 6310 Mar, [facility] [place] [facility] [address] [id number] [place] [address] Mar, [facility] [place] [facility] [address] [id number] [place] [address]- 1173 Mar, [facility] [place] [facility] [address] [id number] [place] [address]- 0286 Mar, [facility] [place] [facility] [address] [id number] [place] [address] 5696 Mar, [facility] [place] [facility] [address] [id number] [place] [address]- 6446 18 Mar, 2014 [facility] [place] [facility] [address] [id number] [place] [address]- 7542 18 Mar, 2014 [facility] [place] [facility] [address] [id number] [place] [address] 1953 Mar, [facility] [place] [facility] [address] [id number] [place] [address]- 0729 Mar, [facility] [place] [facility] [address] [id number] [place] [address]- 7462 Mar, [facility] [place] [facility] [address] [id number] [place] [address]- 4524 Mar, [facility] [place] [facility] [address] [id number] [place] [address]- 2045 Mar, [facility] [place] [facility] [address] [id number] [place] [address]- 5100 Mar, [facility] [place] [facility] [address] [id number] [place] [address]- 2901 10 Mar, 2014 [facility] [place] [facility] [address] [id number] [place] [address]- 4436 10 Mar, 2014 [facility] [place] [facility] [address] [id number] [place] [address]- 3724 Mar, [facility] [place] [facility] [address] [id number] [place] [address]- 2851 10 Mar, 2014 [facility] [place] [facility] [address] [id number] [place] [address]- 7718 Mar, [facility] [place] [facility] [address] [id number] [place] [address]- 0052 Mar, [facility] [place] [facility] [address] [id number] [place] [address]- 0654 Mar, [facility] [place] [facility] [address] [id number] [place] [address]- 1572 Mar, [facility] [place] [facility] [address] [id number] [place] [address]- 8432 Jan, [facility] [place] [facility] [address] [id number] [place] [address]- 4929 Jan, [facility] [place] [facility] [address] [id number] [place] [address]- 1390 Jan, [facility] [place] [facility] [address] [id number] [place] [address]- 8808 Jan, [facility] [place] [facility] [address] [id number] [place] [address]- 1721 Jan, [facility] [place] [facility] [address] [id number] [place] [address]- 7644 Jan, [facility] [place] [facility] [address] [id number] [place] [address]- 1692 Jan, [facility] [place] [facility] [address] [id number] [place] [address]- 6694 Jan, [facility] [place] [facility] [address] [id number] [place] [address]- 1868 Jan, [facility] [place] [facility] [address] [id number] [place] [address]- 3675 Jan, [facility] [place] [facility] [address] [id number] [place] [address]- 8329 Jan, [facility] [place] [facility] [address] [id number] [place] [address]- 6144 Jan, [facility] [place] [facility] [address] [id number] [place] [address]- 5204 Jan, [facility] [place] [facility] [address] [id number] [place] [address]- 2909 Jan, [facility] [place] [facility] [address] [id number] [place] [address]- 8744 Jan, [facility] [place] [facility] [address] [id number] [place] [address]- 8033 Jan, [facility] [place] [facility] [address] [id number] [place] [address]- 7357 Jan, [facility] [place] [facility] [address] [id number] [place] [address]- 0361 Jan, [facility] [place] [facility] [address] [id number] [place] [address]- 0818 Jan, [facility] [place] [facility] [address] [id number] [place] [address]- 5403 Jan, [facility] [place] [facility] [address] [id number], [place] [address]- 5206 Dec, [facility] [place] [facility] [address] [id number] [place] [address]- 0411 Dec, [facility] [place] [facility] [address] [id number], [place] [address] 2824 Dec, [facility] [place] [facility] [address] [id number], [place] [address]- 7584 Dec, [facility] [place] [facility] [address] [id number], [place] [address]- 2242 Dec, [facility] [place] [facility] [address] [id number] [place] [address]- 0252 Dec, [facility] [place] [facility] [address] [id number], [place] [address]- 9062 Dec, [facility] [place] [facility] [address] [id number], [place] [address]- 3519 Dec, [facility] [place] [facility] [address] [id number] [place] [address]- 2259 10 Dec, 2013 [facility] [place] [facility] [address] [id number] [place] [address]- 1658 08 Dec, 2013 [facility] [place] [facility] [address] [id number] [place] [address]- 2408 Dec, [facility] [place] [facility] [address] [id number] [place] [address]- 3395 Dec, [facility] [place] [facility] [address] [id number] [place] [address]- 3388 Dec, [facility] [place] [facility] [address] [id number] [place] [address]- 9130 Dec, [facility] [place] [facility] [address] [id number] [place] [address]- 5680 Dec, [facility] [place] [facility] [address] [id number] [place] [address]- 5832 22 Nov, 2013 [facility] [place] [facility] [address] [id number] [place] [address]- 8339 22 Nov, 2013 [facility] [place] [facility] [address] [id number] [place] [address] 254 19 Nov, 2013 [facility] [place] [facility] [address] [id number] [place] [address]- 2543 19 Sep, 2013 [facility] [place] [facility] [address] [id number] [place] [address] 2546 13 Nov, 2013 [facility] [place] [facility] [address] [id number] [place] [address]- 2543 13 Nov, 2013 [facility] [place] [facility] [address] [id number] [place] [address] 2541 10 Nov, 2013 [facility] [place] [facility] [address] [id number] [place] [address]- 2545 10 Nov, 2013 [facility] [place] [facility] [address] [id number] [place] [address]- 2542 08 Sep, 2013 [facility] [place] [facility] [address] [id number] [place] [address]- 3561 Nov, 2013 [facility] [place] [facility] [address] [id number] [place] [address]- 0712 Nov, [facility] [place] [facility] [address] [id number] [place] [address]- 8978 Nov, [facility] [place] [facility] [address] [id number] [place] [address]- 5934 Nov, [facility] [place] [facility] [address] [id number] [place] [address]- 1811 Oct, [facility] [place] [facility] [address] [id number] [place] [address]- 7066 Oct, [facility] [place] [facility] [address] [id number] [place] [address]- 6961 Oct, [facility] [place] [facility] [address] [id number] [place] [address]- 8420 Oct, [facility] [place] [facility] [address] [id number] [place] [address]- 4982 Oct, [facility] [place] [facility] [address] [id number] [place] [address]- 5537 Sep, [facility] [place] [facility] [address] [id number] [place] [address]- 1033 Sep, [facility] [place] [facility] [address] [id number] [place] [address]- 5105 Sep, [facility] [place] [facility] [address] [id number] [place] [address]- 1236 Sep, [facility] [place] [facility] [address] [id number] [place] [address]- 1347 Aug, [facility] [place] [facility] [address] [id number] [place] [address]- 2682 Aug, [facility] [place] [facility] [address] [id number] [place] [address]- 5289 Aug, [facility] [place] [facility] [address] [id number] [place] [address]- 4923 Aug, [facility] [place] [facility] [address] [id number] [place] [address]- 5377 Aug, [facility] [place] [facility] [address] [id number] [place] [address]- 2314 Aug, [facility] [place] [facility] [address] [id number] [place] [address]- 1129 Aug, [facility] [place] [facility] [address] [id number] [place] [address]- 8010 Aug, [facility] [place] [facility] [address] [id number] [place] [address]- 9206 Aug, [facility] [place] [facility] [address] [id number] [place] [address]- 1711 Aug, [facility] [place] [facility] [address] [id number] [place] [address]- 1892 Aug, [facility] [place] [facility] [address] [id number] [place] [address]- 6343 Aug, [facility] [place] [facility] [address] [id number] [place] [address]- 8248 Aug, [facility] [place] [facility] [address] [id number] [place] [address]- 3015 Aug, [facility] [place] [facility] [address] [id number] [place] [address]- 9488 Aug, [facility] [place] [facility] [address] [id number] [place] [address]- 9235 Aug, [facility] [place] [facility] [address] [id number] [place] [address]- 9714 Aug, [facility] [place] [facility] [address] [id number] [place] [address]- 1445 Aug, [facility] [place] [facility] [address] [id number] [place] [address]- 6844 Aug, [facility] [place] [facility] [address] [id number] [place] [address]- 3950 Aug, [facility] [place] [facility] [address] [id number] [place] [address]- 2728 Aug, [facility] [place] [facility] [address] [id number] [place] [address]- 5059 Aug, [facility] [place] [facility] [address] [id number] [place] [address]- 8045 Aug, [facility] [place] [facility] [address] [id number] [place] [address]- 0790 Aug, [facility] [place] [facility] [address] [id number] [place] [address]- 7816 July, [facility] [place] [facility] [address] [id number] [place] [address]- 7763 July, [facility] [place] [facility] [address] [id number] [place] [address]- 5544 July, [facility] [place] [facility] [address] [id number] [place] [address]- 3983 July, [facility] [place] [facility] [address] [id number] [place] [address]- 3062 July, [facility] [place] [facility] [address] [id number] [place] [address]- 5932 July, [facility] [place] [facility] [address] [id number] [place] [address]- 1511 Jun, [facility] [place] [facility] [address] [id number] [place] [address]- 0274 Jun, [facility] [place] [facility] [address] [id number] [place] [address]- 6765 Jun, [facility] [place] [facility] [address] [id number] [place] [address]- 8938 Jun, [facility] [place] [facility] [address] [id number] [place] [address]- 4777 Jun, [facility] [place] [facility] [address] [id number] [place] [address]- 9752 Jun, [facility] [place] [facility] [address] [id number] [place] [address]- 2569 Jun, [facility] [place] [facility] [address] [id number] [place] [address]- 4373 Jun, [facility] [place] [facility] [address] [id number] [place] [address]- 4948 Jun, [facility] [place] [facility] [address] [id number] [place] [address]- 4754 Jun, [facility] [place] [facility] [address] [id number] [place] [address]- 5110 Jun, [facility] [place] [facility] [address] [id number] [place] [address]- 6081 Jun, [facility] [place] [facility] [address] [id number] [place] [address]- 8290 Jun, [facility] [place] [facility] [address] [id number] [place] [address]- 1986 Jun, [facility] [place] [facility] [address] [id number] [place] [address]- 0650 Jun, [facility] [place] [facility] [address] [id number] [place] [address]- 6797 May, [facility] [place] [facility] [address] [id number] [place] [address]- 6394 May, [facility] [place] [facility] [address] [id number] [place] [address]- 0618 May, [facility] [place] [facility] [address] [id number] [place] [address]- 0699 May, [facility] [place] [facility] [address] [id number] [place] [address]- 4954 May, [facility] [place] [facility] [address] [id number] [place] [address]- 6227 May, [facility] [place] [facility] [address] [id number] [place] [address]- 8754 May, [facility] [place] [facility] [address] [id number] [place] [address]- 0692 May, [facility] [place] [facility] [address] [id number] [place] [address]- 1393 May, [facility] [place] [facility] [address] [id number] [place] [address]- 3988 May, [facility] [place] [facility] [address] [id number] [place] [address]- 3668 May, [facility] [place] [facility] [address] [id number] [place] [address]- 5466 May, [facility] [place] [facility] [address] [id number] [place] [address]- 9415 May, [facility] [place] [facility] [address] [id number] [place] [address]- 3038 May, [facility] [place] [facility] [address] [id number] [place] [address]- 6748 May, [facility] [place] [facility] [address] [id number] [place] [address]- 1569 May, [facility] [place] [facility] [address] [id number] [place] [address]- 2222 May, [facility] [place] [facility] [address] [id number] [place] 0351 Apr, [facility] [place] [facility] [address] [id number] [place] [address]- 5986 Apr, [facility] [place] [facility] [address] [id number] [place] [address]- 7616 Apr, [facility] [place] [facility] [address] [id number] [place] [address]- 0885 Apr, [facility] [place] [facility] [address] [id number] [place] [address]- 4628 Apr, [facility] [place] [facility] [address] [id number] [place] [address]- 6806 Apr, [facility] [place] [facility] [address] [id number] [place] [address]- 1325 Apr, [facility] [place] [facility] [address] [id number] [place] [address]- 0939 Apr, [facility] [place] [facility] [address] [id number] [place] [address]- 6466 Apr, [facility] [place] [facility] [address] [id number] [place] [address]- 9744 Apr, [facility] [place] [facility] [address] [id number] [place] [address]- 3653 Apr, [facility] [place] [facility] [address] [id number] [place] [address]- 7644 Apr, [facility] [place] [facility] [address] [id number] [place] [address]- 7857 Apr, [facility] [place] [facility] [address] [id number] [place] [address]- 6886 Apr, [facility] [place] [facility] [address] [id number] [place] [address]- 8410 Apr, [facility] [place] [facility] [address] [id number] [place] [address]- 5788 Apr, [facility] [place] [facility] [address] [id number] [place] [address]- 3406 Mar, [facility] [place] [facility] [address] [id number] [place] [address]- 7601 Mar, [facility] [place] [facility] [address] [id number], [place] [address]- 0054 30 Mar, 2012 [facility] [address] [id number] [place] [address]- 5456 30 Mar, 2013 [facility] [address] [id number] [place] [address]- 4526 18 Mar, 2013 [facility] [address] [id number] [place] [address]- 9255 18 Mar, 2013 [facility] [address] [id number] [place] [address]- 9291 18 Mar, 2013 [facility] [address] [id number] [place] 7857 18 Mar, 2013 [facility] [address] [id number] [place] [address]- 9700 17 Mar, 2013 [facility] [address] [id number] [place] [address]- 5917 17 Mar, 2013 [facility] [address] [id number] [place] [address]- 6416 05 Mar, 2013 [facility] [address] [id number] [place] [address]- 8523 05 Mar, 2013 [facility] [place] [facility] [address] [id number] [place] [address]- 4304 04 Mar, 2013 [facility] [address] [id number], [place] [address]- 1453 04 Mar, 2013 [facility] [place] [facility] [address] [id number], [place] [address]- 6477 04 Mar, 2013 [facility] [place] [facility] [address] [id number], [place] [address]- 7203 Mar, [facility] [place] [facility] [address] [id number] [place] [address]- 2226 02 Mar, 2013 [facility] [place] [facility] [address] [id number] [place] [address]- 7048 02 Mar, 2013 [facility] [place] [facility] [address] [id number] [place] [address] 2547 Jan, [facility] [place] [facility] [address] [id number] [place] [address]- 3166 Jan, [facility] [place] [facility] [address] [id number] [place] [address]- 2546 Jan, [facility] [place] [facility] [address] [id number] [place] [address]- 6808 Jan, [facility] [place] [facility] [address] [id number] [place] [address]- 0432 Nov, [facility] [place] [facility] [address] [id number] [place] [address]- 5003 Nov, [facility] [place] [facility] [address] [id number] [place] [address]- 5150 Nov, [facility] [place] [facility] [address] [id number] [place] [address]- 3932 Nov, [facility] [place] [facility] [address] [id number] [place] [address]- 0150 Oct, [facility] [place] [facility] [address] [id number] [place] [address]- 2437 Oct, [facility] [place] [facility] [address] [id number] [place] [address]- 4869 Oct, [facility] [place] [facility] [address] [id number] [place] [address]- 3606 Oct, [facility] [place] [facility] [address] [id number] [place] [address]- 0140 Sep, [facility] [place] [facility] [address] [id number] [place] [address]- 1091 Sep, [facility] [place] [facility] [address] [id number] [place] [address]- 2546 Sep, [facility] [place] [facility] [address] [id number] [place] 0486 Sep, [facility] [address] [id number] [place] [address]- 5090 Sep, [facility] [place] [facility] [address] [id number] [place] [address] Sep, [facility] [place] [facility] [address] [id number] [place] [address] Sep, [facility] [place] [facility] [address] [id number] [place] [address] Sep, [facility] [address] [id number] [place] [address] Sep, [facility] [place] [facility] [address] [id number] [place] [address] Aug, [facility] [place] [facility] [address] [id number] [place] [address] Aug, [facility] [place] [facility] [address] [id number] [place] [address] Aug, [facility] [place] [facility] [address] [id number] [place] [address] Aug, [facility] [place] [facility] [address] [id number] [place] [address] July, [facility] [place] [facility] [address] [id number] [place] [address] July, [facility] [place] [facility] [address] [id number] [place] [address] July, [facility] [place] [facility] [address] [id number] [place] [address] July, [facility] [place] [facility] [address] [id number] [place] [address] July, [facility] [place] [facility] [address] [id number] [place] [address] July, [facility] [place] [facility] [address] [id number], [place] [address] July, [facility] [address] [id number] [address] Jun, [facility] [address] [id number], [place] [address] May, [facility] [id number], [place] [address] May, [facility] [id number], [place] [address] May, [facility] [id number] [place] [address] May, [facility] [id number], [place] [address] May, [facility] [id number] [place] [address] May, [facility] [address] [id number], [place] [address] May, [facility] [id number], [place] [address] May, IMMUNIZATIONS No Known Immunizations SOCIAL HISTORY Never Assessed REASON FOR VISIT PLAN OF CARE VITAL SIGNS MEDICATIONS Medication Instructions Dosage Frequency Start Date End Date Duration Status Isosorbide Mononitrate ER 30 mg TAKE 1 TABLET BY MOUTH DAILY 30 Active RESULTS No Results PROCEDURES No [...]
--- OUTSIDE RECORDS SUMMARY | 2017-12-18 19:54 | XMS REPORT ---
Author Author MCKENNA HEBERT Organization [facility] Address [address] [place] [address] Care Team Providers Care Slip Laster Name Role Phone MCKENNA HEBERT Unavailable PROBLEMS Type Condition ICD9-CM Code XOG67-CY Code Onset Dates Condition Status SNOMED Code Problem Neuropathy G62.9 Active 612327327 Problem Intra-dialytic hypotension I95.3 Active 757684861 Problem Amput below knee, unilat S88.119A Active 71148777 Problem Cellulitis of right lower extremity L03.115 Active 905784265 Problem Diabetes type 2, controlled E11.9 Active 83663628 Problem Renal failure N19 Active 92299822 Problem 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 Active 6998726 Problem Other chronic pain G89.29 Active 38214141 Problem Seasonal allergic rhinitis due to other allergic trigger J30.89 Active 943346341 Problem Chronic congestive heart failure, unspecified congestive heart failure type I50.9 Active 41702256 Problem Angina pectoris I20.9 Active 751012732 Problem Chronic congestive heart failure, unspecified heart failure type I50.9 Active 37180373 ALLERGIES No Information ENCOUNTERS Encounter Location Date Diagnosis [facility] [id number] [address] 7[address] Oct, [facility] [id number] [place] [address] 86748- 1562 Sep, [facility] [id number] [place] [address] [id number] Sep, Dental examination Z01.20 and Dental caries K02.9 [facility] [id number] [place] [address] 77714- 6760 Sep, [facility] [id number] [place] [address] 31806- 1619 Sep, [place] [address], [place] [address] 9834 Sep, Other chronic pain G89.29 and Pain in right knee M25.561 [facility] [id number] [address] 2958 05 Sep, 2017 [facility] [id number] [place] [address] 90019- 8855 Aug, [facility] [id number] [place] [address] 50519- 3714 Aug, 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 [facility] [id number] [place] [address] 67658- 5037 Aug, [facility] [id number] [place] [address] 83296- 6026 Aug, Diabetes type 2, controlled E11.9 and Acute pain of right knee M25.561 [facility] [address], [place] [address] 2328 Aug, [facility] [id number] [place] [address] 29475- 2274 July, [facility] [id number] [place] [address] 81690- 0172 16 Jun, 2017 [facility] [address], [place] [address] 1966 13 Jun, 2017 [facility] [address], [place] [address] 2701 10 Jun, 2017 Diabetes type 2, controlled E11.9 [facility] [address], [place] [address]- 7099 Jun, [facility] [address], [place] [address]- 7894 28 May, 2017 [facility] [address], [place] [address]- 0366 May, [facility] [address], [place] [address]- 5742 May, [facility] [id number] [place] [address] 80671- 3042 May, Chronic congestive heart failure, unspecified congestive heart failure type I50.9 [facility] [id number] [place] [address] 41998- 0339 May, Diabetes type 2, controlled E11.9 ; BMI 50.0-59.9, adult Z68.43 ; Chronic congestive heart failure, unspecified heart failure type I50.9 ; Angina pectoris I20.9 ; Seasonal allergic rhinitis due to other allergic trigger J30.89 and Renal failure N19 [facility] [address] [address] May, [facility] [id number] [place] [address] 05805- 1451 May, [facility] [id number] [place] [address] 15882- 4559 May, [facility] [id number] [place] [address] 14861- 1152 May, [facility] [id number] [place] [address] 35926- 3445 May, [facility] [id number] [place] [address] 32463- 8083 Apr, BMI 50.0-59.9, adult Z68.43 [facility] [id number] [place] [address] 40632- 3792 Apr, BMI 50.0-59.9, adult Z68.43 ; Post-procedural fever R50.82 and Bronchitis J40 [facility] [id number] [place] [address] 20939- 2313 Apr, Chronic congestive heart failure, unspecified congestive heart failure type I50.9 [facility] [id number] [place] [address] [place] [address]- 1314 Jan, [facility] [address] [id number] [place] [address] 10801- 7106 Jan, Diabetes type 2, controlled E11.9 [facility] [id number] [address]- 9230 Jan, Neuropathy G62.9 [facility] [address] [facility] [id number] [place] [address] 90044- 1536 Jan, [facility] [id number] [place] [address] 34720- 1640 Jan, [facility] [address] [facility] [id number] [place] [address] 93398- 8250 Jan, [facility] [id number] [place] [address] 80665- 8230 Jan, [facility] [id number] [place] [address] 36927- 4413 Jan, [facility] [address], [place] [address]- 8391 Dec, [facility] [id number] [place] [address] 61326- 0806 Dec, [facility] [address], [place] [address]- 4655 Dec, Diabetes type 2, controlled E11.9 [facility] [address] [facility] [id number], [place] [address]- 1789 Dec, [facility] [address] [id number], [place] [address]- 0396 Dec, [facility] [id number] [place] [address] 16321- 3443 Dec, Chronic congestive heart failure, unspecified congestive heart failure type I50.9 [facility] [address] [id number], [place] [address]- 0833 Dec, [facility] [address], [place] [address]- 2803 Dec, [facility] [address], [place] [address]- 4627 Nov, Chronic congestive heart failure, unspecified congestive heart failure type I50.9 [facility] [address], [place] [address]- 9397 Nov, Chronic congestive heart failure, unspecified congestive heart failure type I50.9 [facility] [address], [place] [address]- 3574 Nov, [facility] [address], [place] [address]- 8496 Oct, [facility] [address], [place] [address]- 5796 Oct, [facility] [address], [place] [address]- 4109 Oct, Chronic congestive heart failure, unspecified congestive heart failure type I50.9 [facility] [address], [place] [address]- 3257 Oct, [facility] [address], [place] [address]- 8175 Oct, Pneumonia of both lungs due to infectious organism, unspecified part of lung J18.9 [facility] [address], [place] [address]- 3747 Oct, [facility] [address] [id number], [place] [address]- 5682 Oct, Diabetes type 2, controlled E11.9 [facility] [address], [place] [address]- 0596 Oct, Diabetes type 2, controlled E11.9 [facility] [address], [place] [address]- 3662 Sep, [facility] [address], [place] [address]- 7392 Sep, Neuropathy G62.9 [facility] [id number] [place] [address] 67637- 2326 Aug, Intra-dialytic hypotension I95.3 [facility] [address] [place] [address] 2546 July, [facility] [id number] [place] [address] 56727- 6926 July, [facility] [id number] [place] [address] 57902- 0086 July, [facility] [id number] [place] [address] 317381- 3835 July, Amput below knee, unilat S88.119A [facility] [id number] [place] [address] 76713- 6616 May, [facility] [id number] [place] [address] 95635- 3361 May, Neuropathy G62.9 [facility] [id number], [place] [address]- 1714 May, [facility] [address] 9095 May, [facility] [address], [place] [address]- 1186 May, [facility] [address], [place] [address] 2543 May, [facility] [id number] [place] [address] 88412- 4686 May, Neuropathy G62.9 [facility] [address], [place] [address]- 5556 Apr, [facility] [id number], [place] [address]- 4491 Apr, [facility] [address] [facility] [id number] [place] [address]- 1692 Apr, Diabetes type 2, controlled E11.9 and Renal failure N19 [facility] [address] [id number] [place] [address] -6818 Apr, [facility] [address] [facility] [id number] [place] [address], [place] [address]- 1872 Apr, [facility] [address] [id number] [place] [address]- 0105 Mar, [facility] [address] [facility] [id number] [place] [address], [place] [address]- 9697 Mar, [facility] [address] [id number] [place] [address]- 6847 Mar, [facility] [id number] [place] [address], [place] [address]- 3970 Mar, [facility] [address] [facility] [id number] [place] [address]- 8627 Mar, [facility] [address] [place] [address]- 0619 Jan, Localized edema R60.0 [facility] [address] [id number] [place] [address]- 2442 Jan, [facility] [address] [id number], [place] [address]- 6431 Jan, [facility] [address] [facility] [id number] [place] [address]- 2993 Jan, [facility] [address] [facility] [id number] [place] [address]- 8751 Jan, [facility] [address] [id number] [place] [address]- 2923 Jan, [facility] [address], [place] [address]- 2918 Jan, [facility] [address] [place] [address] 34996- 9326 Dec, Diabetes type 2, controlled E11.9 and Chronic nonintractable headache, unspecified headache type R51 [facility] [address] [place] [address] 12648- 0072 Dec, [facility] [id number] [place] [address] 81642- 6025 Dec, [facility] [id number] [place] [address] 06749- 0615 Nov, [facility] [id number] [place] [address] 09850- 8760 Nov, [facility] [id number] [place] [address] 07056- 7230 Oct, [facility] [id number] [place] [address] 17019- 1430 Oct, Migraine without status migrainosus, not intractable, unspecified migraine type G43.909 [facility] [id number] [place] [address] 83073- 1184 Oct, [facility] [address] [place] [address] 83414- 7006 Sep, Amput below knee, unilat S88.119A and Neuropathy G62.9 [facility] [address] [place] [address] 39110- 9369 Sep, [facility] [address] [place] [address] 35797- 2326 Sep, [facility] [id number] [place] [address] 42951- 2913 Sep, [facility] [address] [place] [address] 37711- 1806 Aug, [facility] [address] [place] [address]- 6099 Aug, [facility] [address] [facility] [id number] [place] [address]- 2876 Aug, Diabetes type 2, controlled E11.9 [facility] [address] [facility] [id number] [place] [address] 2546 Aug, [facility] [address] [facility] [id number] [place] [address]- 4154 Jun, Diabetes type 2, controlled E11.9 and Neuropathy G62.9 [facility] [address] [facility] [id number] [place] [address]- 5105 14 Jul, 2015 [facility] [address] [facility] [id number] [place] [address]- 1782 Jun, [facility] [address] [facility] [id number] [place] [address]- 1329 Jun, [facility] [address] [facility] [id number] [place] [address]- 3293 Jun, [facility] [address] [facility] [id number] [place] [address]- 3487 May, [facility] [address] [facility] [id number] [place] [address]- 9746 May, Diabetes type 2, controlled E11.9 [facility] [address] [facility] [id number] [place] [address]- 8651 May, [facility] [address] [facility] [id number] [place] [address]- 2543 May, [facility] [address] [facility] [id number] [place] [address]- 6487 May, [facility] [address] [facility] [id number] [place] [address]- 1876 May, [facility] [address] [facility] [id number] [place] [address]- 9816 May, [facility] [address], [place] [address]- 9483 May, [facility] [id number] [place] [address] 04309- 7615 May, [facility] [address], [place] [address]- 3027 May, COPD (chronic obstructive pulmonary disease) J44.9 [facility] [address], [place] [address]- 8424 May, [facility] [address] [place] [address] 76023- 3715 May, [facility] [id number] [place] [address] 81765- 4187 May, [facility] [address] [place] [address] 94983- 5019 May, [facility] [address], [place] [address]- 5407 May, [facility] [address] [place] [address] 53118- 5088 May, Renal failure N19 and Pneumonia, organism unspecified, unspecified laterality, unspecified part of lung J18.9 [facility] [address], [place] [address]- 3733 Apr, [facility] [address], [place] [address]- 3322 Apr, [facility] [address], [place] [address]- 4250 Apr, [facility] [address], [place] [address]- 8853 Apr, Diabetes mellitus 250.00 [facility] [address], [place] [address]- 0217 14 Apr, 2015 [facility] [place] [facility] [address] [id number] [place] [address]- 6856 14 Apr, 2015 [facility] [place] [facility] [address] [id number] [place] [address]- 3430 13 Apr, 2015 [facility] [place] [facility] [address] [id number] [place] [address]- 8245 07 Apr, 2015 [facility] [place] [facility] [id number] [place] [address], [place] [address]- 0118 31 Mar, 2015 [facility] [place] [facility] [address] [id number] [place] [address]- 7221 28 Mar, 2015 [facility] [place] [facility] [address] [id number] [place] [address], [place] [address]- 6234 23 Mar, 2015 [facility] [place] [facility] [address] [id number] [place] [address]- 4742 16 Mar, 2015 Renal failure N19 [facility] [place] [facility] [address] [facility] [id number] [place] [address]- 9780 14 Mar, 2015 [facility] [place] [facility] [address] [facility] [id number] [place] [address]- 3110 Mar, [facility] [place] [facility] [address] [id number] [place] [address]- 4454 04 Mar, 2015 [facility] [place] [facility] [address] [id number] [place] [address]- 5454 24 Jan, 2015 [facility] [place] [facility] [address] [id number], [place] [address]- 2301 18 Jan, 2015 [facility] [place] [facility] [address] [id number] [place] [address]- 0879 17 Jan, 2015 [facility] [place] [facility] [address] [id number] [place] [address]- 7659 13 Jan, 2015 [facility] [place] [facility] [address] [facility] [id number] [place] [address]- 8484 20 Dec, 2014 [facility] [place] [facility] [address] [id number], [place] [address]- 0013 Dec, [facility] [address] [id number], [place] [address]- 6445 Dec, [facility] [address] [id number], [place] [address]- 4674 Nov, [facility] [address], [place] [address]- 4281 Nov, [facility] [id number] [place] [address] 13677- 9437 Nov, [facility] [id number] [place] [address] 81089- 7772 Oct, [facility] [address], [place] [address]- 4904 Oct, [facility] [id number] [place] [address] 78287- 6570 Oct, Renal failure 586 and Obesity 278.00 [facility] [address], [place] [address]- 7702 Oct, [facility] [address], [place] [address]- 8903 Oct, [facility] [address], [place] [address]- 9915 Oct, [facility] [address], [place] [address]- 6198 Sep, [facility] [address], [place] [address]- 2108 Sep, [facility] [address], [place] [address]- 3085 Sep, Diabetes mellitus 250.00 and Congestive heart failure, unspecified 428.0 [facility] [address], [place] [address]- 2738 Aug, [facility] [address] [place] [address]- 9663 Aug, [facility] [address] [id number] [place] [address]- 9120 Aug, [facility] [address] [id number] [place] [address]- 8597 July, [facility] [address] [id number] [place] [address]- 0733 July, [facility] [place] [facility] [address] [id number] [place] [address]- 2208 July, Heart murmur, systolic 785.2 [facility] [address] [id number] [place] [address]- 3771 July, [facility] [address] [id number] [place] [address]- 0665 July, [facility] [address] [id number] [place] [address] Jun, [facility] [address] [id number] [place] [address] Jun, [facility] [place] [facility] [address] [id number] [place] [address] May, [facility] [place] [facility] [address] [id number] [place] [address] 23 May, 2014 [facility] [place] [facility] [address] [id number] [place] [address] 18 May, 2014 [facility] [place] [facility] [address] [id number] [place] [address] 18 May, 2014 [facility] [place] [facility] [address] [id number] [place] [address] 16 May, 2014 [facility] [place] [facility] [address] [id number] [place] [address] 16 May, 2014 [facility] [place] [facility] [address] [id number] [place] [address] May, 2014 [facility] [place] [facility] [address] [facility] [id number] [place] [address] May, 2014 [facility] [place] [facility] [address] [facility] [id number] [place] [address] May, 2014 [facility] [place] [facility] [address] [facility] [id number] [place] [address] May, 2014 [facility] [place] [facility] [address] [facility] [id number] [place] [address] May, 2014 [facility] [place] [facility] [address] [facility] [id number] [place] [address] May, 2014 [facility] [place] [facility] [address] [facility] [id number] [place] [address] May, 2014 [facility] [place] [facility] [address] [facility] [id number] [place] [address] May, 2014 [facility] [place] [facility] [address] [facility] [id number], [place] [address] 18 May, 2014 [facility] [place] [facility] [address] [facility] [id number] [place] [address] May, 2014 [facility] [place] [facility] [address] [facility] [id number] [place] [address] May, 2014 [facility] [place] [facility] [address] [facility] [id number] [place] [address] May, 2014 [facility] [place] [facility] [address] [facility] [id number], [place] [address] May, 2014 [facility] [place] [facility] [address] [facility] [id number] [place] [address] May, 2014 [facility] [place] [facility] [address] [facility] [id number], [place] [address] 16 May, 2014 [facility] [place] [facility] [address] [facility] [id number], [place] [address] 16 May, 2014 [facility] [place] [facility] [address] [id number] [place] [address] May, [facility] [place] [facility] [address] [id number] [place] [address] May, [facility] [place] [facility] [address] [id number] [place] [address] May, [facility] [place] [facility] [address] [id number] [place] [address] May, [facility] [place] [facility] [address] [id number] [place] [address] 7614 Apr, [facility] [place] [facility] [address] [id number] [place] [address] 5283 Apr, [facility] [place] [facility] [address] [id number] [place] [address] 3295 Apr, [facility] [place] [facility] [address] [id number] [place] [address] 2448 Apr, [facility] [place] [facility] [address] [id number] [place] [address]- 4285 Apr, [facility] [place] [facility] [address] [id number] [place] [address] 5801 Apr, [facility] [place] [facility] [address] [id number] [place] [address]- 0316 Apr, [facility] [place] [facility] [address] [id number] [place] [address]- 3866 Apr, [facility] [place] [facility] [address] [id number] [place] [address] 5630 Mar, [facility] [place] [facility] [address] [id number] [place] [address] 8327 Mar, [facility] [place] [facility] [address] [id number] [place] [address] Mar, [facility] [place] [facility] [address] [id number] [place] [address] 1600 Mar, [facility] [place] [facility] [address] [id number] [place] [address]- 0066 Mar, [facility] [place] [facility] [address] [id number] [place] [address]- 4406 Mar, [facility] [place] [facility] [address] [id number] [place] [address]- 4566 18 Mar, 2014 [facility] [place] [facility] [address] [id number] [place] [address]- 8441 18 Mar, 2014 [facility] [place] [facility] [address] [id number] [place] [address]- 8090 Mar, [facility] [place] [facility] [address] [id number] [place] [address]- 8309 Mar, [facility] [place] [facility] [address] [id number] [place] [address]- 0283 Mar, [facility] [place] [facility] [address] [id number] [place] [address]- 8396 Mar, [facility] [place] [facility] [address] [id number] [place] [address]- 5154 Mar, [facility] [place] [facility] [address] [id number] [place] [address]- 0353 Mar, [facility] [place] [facility] [address] [id number] [place] [address]- 7444 10 Mar, 2014 [facility] [place] [facility] [address] [id number] [place] [address]- 3274 10 Mar, 2014 [facility] [place] [facility] [address] [id number] [place] [address]- 2616 Mar, [facility] [place] [facility] [address] [id number] [place] [address]- 4734 10 Mar, 2014 [facility] [place] [facility] [address] [id number] [place] [address]- 0872 Mar, [facility] [place] [facility] [address] [id number] [place] [address]- 9269 Mar, [facility] [place] [facility] [address] [id number] [place] [address]- 7654 Mar, [facility] [place] [facility] [address] [id number] [place] [address]- 1138 Mar, [facility] [place] [facility] [address] [id number] [place] [address]- 0905 Jan, [facility] [place] [facility] [address] [id number] [place] [address]- 0917 Jan, [facility] [place] [facility] [address] [id number] [place] [address]- 3568 Jan, [facility] [place] [facility] [address] [id number] [place] [address]- 3934 Jan, [facility] [place] [facility] [address] [id number] [place] [address]- 8636 Jan, [facility] [place] [facility] [address] [id number] [place] [address]- 0594 Jan, [facility] [place] [facility] [address] [id number] [place] [address]- 8465 Jan, [facility] [place] [facility] [address] [id number] [place] [address]- 2785 Jan, [facility] [place] [facility] [address] [id number] [place] [address]- 4648 Jan, [facility] [place] [facility] [address] [id number] [place] [address]- 9165 Jan, [facility] [place] [facility] [address] [id number] [place] [address]- 0058 Jan, [facility] [place] [facility] [address] [id number] [place] [address]- 0101 Jan, [facility] [place] [facility] [address] [id number] [place] [address]- 1742 Jan, [facility] [place] [facility] [address] [id number] [place] [address]- 2635 Jan, [facility] [place] [facility] [address] [id number] [place] [address]- 5135 Jan, [facility] [place] [facility] [address] [id number] [place] [address]- 6222 Jan, [facility] [place] [facility] [address] [id number] [place] [address]- 6152 Jan, [facility] [place] [facility] [address] [id number] [place] [address]- 7768 Jan, [facility] [place] [facility] [address] [id number] [place] [address]- 7942 Jan, [facility] [place] [facility] [address] [id number] [place] [address]- 4075 Jan, [facility] [place] [facility] [address] [id number], [place] [address]- 5[address] Dec, [facility] [place] [facility] [address] [id number] [place] [address]- 7639 Dec, [facility] [place] [facility] [address] [id number], [place] [address]- 9302 Dec, [facility] [place] [facility] [address] [id number], [place] [address]- 2042 Dec, [facility] [place] [facility] [address] [id number], [place] [address]- 2362 Dec, [facility] [place] [facility] [address] [id number] [place] [address]- 8148 Dec, [facility] [place] [facility] [address] [id number], [place] [address]- 7261 Dec, [facility] [place] [facility] [address] [id number], [place] [address]- 1499 Dec, [facility] [place] [facility] [address] [id number] [place] [address]- 7647 10 Dec, 2013 [facility] [place] [facility] [address] [id number] [place] [address]- 9855 08 Dec, 2013 [facility] [place] [facility] [address] [id number] [place] [address]- 9305 Dec, [facility] [place] [facility] [address] [id number] [place] [address]- 5353 Dec, [facility] [place] [facility] [address] [id number] [place] [address]- 2625 Dec, [facility] [place] [facility] [address] [id number] [place] [address]- 3011 Dec, [facility] [place] [facility] [address] [id number] [place] [address]- 2405 Dec, [facility] [place] [facility] [address] [id number] [place] [address]- 6120 22 Nov, 2013 [facility] [place] [facility] [address] [id number] [place] [address]- 6732 22 Nov, 2013 [facility] [place] [facility] [address] [id number] [place] [address] 2545 19 Nov, 2013 [facility] [place] [facility] [address] [id number] [place] [address]- 2540 19 Sep, 2013 [facility] [place] [facility] [address] [id number] [place] [address] 2546 13 Nov, 2013 [facility] [place] [facility] [address] [id number] [place] [address]- 2541 13 Nov, 2013 [facility] [place] [facility] [address] [id number] [place] [address] 2541 10 Nov, 2013 [facility] [place] [facility] [address] [id number] [place] [address]- 2548 10 Nov, 2013 [facility] [place] [facility] [address] [id number] [place] [address]- 2545 08 Sep, 2013 [facility] [place] [facility] [address] [id number] [place] [address]- 5503 Nov, 2013 [facility] [place] [facility] [address] [id number] [place] [address]- 0509 Nov, [facility] [place] [facility] [address] [id number] [place] [address]- 2741 Nov, [facility] [place] [facility] [address] [id number] [place] [address]- 6788 Nov, [facility] [place] [facility] [address] [id number] [place] [address]- 0533 Oct, [facility] [place] [facility] [address] [id number] [place] [address]- 8366 Oct, [facility] [place] [facility] [address] [id number] [place] [address]- 2549 Oct, [facility] [place] [facility] [address] [id number] [place] [address]- 0859 Oct, [facility] [place] [facility] [address] [id number] [place] [address]- 1561 Oct, [facility] [place] [facility] [address] [id number] [place] [address]- 0213 Sep, [facility] [place] [facility] [address] [id number] [place] [address]- 4003 Sep, [facility] [place] [facility] [address] [id number] [place] [address]- 6577 Sep, [facility] [place] [facility] [address] [id number] [place] [address]- 3310 Sep, [facility] [place] [facility] [address] [id number] [place] [address]- 0365 Aug, [facility] [place] [facility] [address] [id number] [place] [address]- 2690 Aug, [facility] [place] [facility] [address] [id number] [place] [address]- 0239 Aug, [facility] [place] [facility] [address] [id number] [place] [address]- 9266 Aug, [facility] [place] [facility] [address] [id number] [place] [address]- 3526 Aug, [facility] [place] [facility] [address] [id number] [place] [address]- 7956 Aug, [facility] [place] [facility] [address] [id number] [place] [address]- 2228 Aug, [facility] [place] [facility] [address] [id number] [place] [address]- 2847 Aug, [facility] [place] [facility] [address] [id number] [place] [address]- 6470 Aug, [facility] [place] [facility] [address] [id number] [place] [address]- 7008 Aug, [facility] [place] [facility] [address] [id number] [place] [address]- 3242 Aug, [facility] [place] [facility] [address] [id number] [place] [address]- 4286 Aug, [facility] [place] [facility] [address] [id number] [place] [address]- 5625 Aug, [facility] [place] [facility] [address] [id number] [place] [address]- 4952 Aug, [facility] [place] [facility] [address] [id number] [place] [address]- 3783 Aug, [facility] [place] [facility] [address] [id number] [place] [address]- 1863 Aug, [facility] [place] [facility] [address] [id number] [place] [address]- 1511 Aug, [facility] [place] [facility] [address] [id number] [place] [address]- 7249 Aug, [facility] [place] [facility] [address] [id number] [place] [address]- 4408 Aug, [facility] [place] [facility] [address] [id number] [place] [address]- 6682 Aug, [facility] [place] [facility] [address] [id number] [place] [address]- 3991 Aug, [facility] [place] [facility] [address] [id number] [place] [address]- 8743 Aug, [facility] [place] [facility] [address] [id number] [place] [address]- 4943 Aug, [facility] [place] [facility] [address] [id number] [place] [address]- 1980 Aug, [facility] [place] [facility] [address] [id number] [place] [address]- 2345 July, [facility] [place] [facility] [address] [id number] [place] [address]- 1626 July, [facility] [place] [facility] [address] [id number] [place] [address]- 5091 July, [facility] [place] [facility] [address] [id number] [place] [address]- 9297 July, [facility] [place] [facility] [address] [id number] [place] [address]- 8792 July, [facility] [place] [facility] [address] [id number] [place] [address]- 6553 July, [facility] [place] [facility] [address] [id number] [place] [address]- 3046 Jun, [facility] [place] [facility] [address] [id number] [place] [address]- 6003 Jun, [facility] [place] [facility] [address] [id number] [place] [address]- 6075 Jun, [facility] [place] [facility] [address] [id number] [place] [address]- 9562 Jun, [facility] [place] [facility] [address] [id number] [place] [address]- 0996 Jun, [facility] [place] [facility] [address] [id number] [place] [address]- 6927 Jun, [facility] [place] [facility] [address] [id number] [place] [address]- 7085 Jun, [facility] [place] [facility] [address] [id number] [place] [address]- 1013 Jun, [facility] [place] [facility] [address] [id number] [place] [address]- 2339 Jun, [facility] [place] [facility] [address] [id number] [place] [address]- 4615 Jun, [facility] [place] [facility] [address] [id number] [place] [address]- 9433 Jun, [facility] [place] [facility] [address] [id number] [place] [address]- 5863 Jun, [facility] [place] [facility] [address] [id number] [place] [address]- 5805 Jun, [facility] [place] [facility] [address] [id number] [place] [address]- 8362 Jun, [facility] [place] [facility] [address] [id number] [place] [address]- 2294 Jun, [facility] [place] [facility] [address] [id number] [place] [address]- 4195 May, [facility] [place] [facility] [address] [id number] [place] [address]- 7233 May, [facility] [place] [facility] [address] [id number] [place] [address]- 9937 May, [facility] [place] [facility] [address] [id number] [place] [address]- 5599 May, [facility] [place] [facility] [address] [id number] [place] [address]- 8222 May, [facility] [place] [facility] [address] [id number] [place] [address]- 6619 May, [facility] [place] [facility] [address] [id number] [place] [address]- 9345 May, [facility] [place] [facility] [address] [id number] [place] [address]- 8980 May, [facility] [place] [facility] [address] [id number] [place] [address]- 8345 May, [facility] [place] [facility] [address] [id number] [place] [address]- 3176 May, [facility] [place] [facility] [address] [id number] [place] [address]- 7231 May, [facility] [place] [facility] [address] [id number] [place] [address]- 6773 May, [facility] [place] [facility] [address] [id number] [place] [address]- 8989 May, [facility] [place] [facility] [address] [id number] [place] [address]- 6531 May, [facility] [place] [facility] [address] [id number] [place] [address]- 0997 May, [facility] [place] [facility] [address] [id number] [place] [address]- 3314 May, [facility] [place] [facility] [address] [id number] [place] [address]- 6251 May, [facility] [place] [facility] [address] [id number] [place] 4576 Apr, [facility] [place] [facility] [address] [id number] [place] [address]- 5717 Apr, [facility] [place] [facility] [address] [id number] [place] [address]- 2249 Apr, [facility] [place] [facility] [address] [id number] [place] [address]- 3110 Apr, [facility] [place] [facility] [address] [id number] [place] [address]- 4601 Apr, [facility] [place] [facility] [address] [id number] [place] [address]- 8042 Apr, [facility] [place] [facility] [address] [id number] [place] [address]- 7968 Apr, [facility] [place] [facility] [address] [id number] [place] [address]- 9240 Apr, [facility] [place] [facility] [address] [id number] [place] [address]- 9940 Apr, [facility] [place] [facility] [address] [id number] [place] [address]- 0488 Apr, [facility] [place] [facility] [address] [id number] [place] [address]- 5723 Apr, [facility] [place] [facility] [address] [id number] [place] [address]- 4126 Apr, [facility] [place] [facility] [address] [id number] [place] [address]- 6686 Apr, [facility] [place] [facility] [address] [id number] [place] [address]- 0189 Apr, [facility] [place] [facility] [address] [id number] [place] [address]- 2311 Apr, [facility] [place] [facility] [address] [id number] [place] [address]- 5927 Apr, [facility] [place] [facility] [address] [id number] [place] [address]- 8766 Mar, [facility] [place] [facility] [address] [id number] [place] [address]- 9246 Mar, [facility] [place] [facility] [address] [id number], [place] [address]- 1277 30 Mar, 2012 [facility] [address] [id number] [place] [address]- 9656 30 Mar, 2013 [facility] [address] [id number] [place] [address]- 3576 18 Mar, 2013 [facility] [address] [id number] [place] [address]- 1438 18 Mar, 2013 [facility] [address] [id number] [place] [address]- 0697 18 Mar, 2013 [facility] [address] [id number] [place] 8875 18 Mar, 2013 [facility] [address] [id number] [place] [address]- 2844 17 Mar, 2013 [facility] [address] [id number] [place] [address]- 4209 17 Mar, 2013 [facility] [address] [id number] [place] [address]- 5720 05 Mar, 2013 [facility] [address] [id number] [place] [address]- 4268 05 Mar, 2013 [facility] [place] [facility] [address] [id number] [place] [address]- 3631 04 Mar, 2013 [facility] [address] [id number], [place] [address]- 3734 04 Mar, 2013 [facility] [place] [facility] [address] [id number], [place] [address]- 1917 04 Mar, 2013 [facility] [place] [facility] [address] [id number], [place] [address]- 8411 Mar, [facility] [place] [facility] [address] [id number] [place] [address]- 8429 02 Mar, 2013 [facility] [place] [facility] [address] [id number] [place] [address]- 5795 02 Mar, 2013 [facility] [place] [facility] [address] [id number] [place] [address] 2545 Jan, [facility] [place] [facility] [address] [id number] [place] [address]- 2233 Jan, [facility] [place] [facility] [address] [id number] [place] [address]- 2546 Jan, [facility] [place] [facility] [address] [id number] [place] [address]- 5105 Jan, [facility] [place] [facility] [address] [id number] [place] [address]- 0004 Nov, [facility] [place] [facility] [address] [id number] [place] [address]- 2383 Nov, [facility] [place] [facility] [address] [id number] [place] [address]- 2679 Nov, [facility] [place] [facility] [address] [id number] [place] [address]- 2114 Nov, [facility] [place] [facility] [address] [id number] [place] [address]- 8052 Oct, [facility] [place] [facility] [address] [id number] [place] [address]- 9040 Oct, [facility] [place] [facility] [address] [id number] [place] [address]- 3365 Oct, [facility] [place] [facility] [address] [id number] [place] [address] Oct, [facility] [place] [facility] [address] [id number] [place] [address] Sep, [facility] [place] [facility] [address] [id number] [place] [address] Sep, [facility] [place] [facility] [address] [id number] [place] [address] Sep, [facility] [place] [facility] [address] [id number] [place] [address] Sep, [facility] [address] [id number] [place] [address] Sep, [facility] [place] [facility] [address] [id number] [place] [address] Sep, [facility] [place] [facility] [address] [id number] [place] [address] Sep, [facility] [place] [facility] [address] [id number] [place] [address] Sep, [facility] [address] [id number] [place] [address] Sep, [facility] [place] [facility] [address] [id number] [place] [address] Aug, [facility] [place] [facility] [address] [id number] [place] [address] Aug, [facility] [place] [facility] [address] [id number] [place] [address] Aug, [facility] [place] [facility] [address] [id number] [place] [address] Aug, [facility] [place] [facility] [address] [id number] [place] [address] July, [facility] [place] [facility] [address] [id number] [place] [address] July, [facility] [place] [facility] [address] [id number] [place] [address] July, [facility] [place] [facility] [address] [id number] [place] [address] July, [facility] [place] [facility] [address] [id number] [place] [address] July, [facility] [place] [facility] [address] [id number] [place] [address] July, [facility] [place] [facility] [address] [id number], [place] [address] July, [facility] [id number] [address] Jun, [facility] [id number], [place] [address] May, [facility] [id number], [place] [address] May, [facility] [id number], [place] [address] May, [facility] [id number] [place] [address] May, [facility] [id number] [place] [address] May, [facility] [id number] [place] [address] May, [facility] [id number] [address] May, [facility] [id number] [place] [address] May, IMMUNIZATIONS No Known Immunizations SOCIAL HISTORY [...]
--- OUTSIDE RECORDS SUMMARY | 2017-12-18 19:54 | XMS REPORT ---
Author Author MCKENNA HEBERT Organization [facility] Address [address] [place] [address] Care Team Providers Care Base Ply Hand Name Role Phone MCKENNA HEBERT Unavailable PROBLEMS Type Condition ICD9-CM Code GHF30-MC Code Onset Dates Condition Status SNOMED Code Problem Neuropathy G62.9 Active 066516855 Problem Intra-dialytic hypotension I95.3 Active 260131342 Problem Amput below knee, unilat S88.119A Active 19546086 Problem Cellulitis of right lower extremity L03.115 Active 231156723 Problem Diabetes type 2, controlled E11.9 Active 41242076 Problem Renal failure N19 Active 70814054 Problem 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 Active 3371243 Problem Other chronic pain G89.29 Active 59415823 Problem Seasonal allergic rhinitis due to other allergic trigger J30.89 Active 390185602 Problem Chronic congestive heart failure, unspecified congestive heart failure type I50.9 Active 10126429 Problem Angina pectoris I20.9 Active 786300787 Problem Chronic congestive heart failure, unspecified heart failure type I50.9 Active [id number] ALLERGIES No Information ENCOUNTERS Encounter Location Date Diagnosis [facility] [address] [address] Oct, [facility] [id number] [place] [address] 25571- 1179 Sep, [facility] [id number] [place] [address] [id number] Sep, Dental examination Z01.20 and Dental caries K02.9 [facility] [id number] [place] [address] 22586- 5396 Sep, [facility] [id number] [place] [address] 45374- 0165 Sep, [place] [address] [address] 9126 Sep, Other chronic pain G89.29 and Pain in right knee M25.561 [facility] [id number] [address]- 8582 05 Sep, 2017 [facility] [id number] [place] [address] 84607- 6274 Aug, [facility] [id number] [place] [address] 86131- 1006 Aug, 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 [facility] [id number] [place] [address] 01970- 9213 Aug, [facility] [id number] [place] [address] 37300- 3250 Aug, Diabetes type 2, controlled E11.9 and Acute pain of right knee M25.561 [facility] [address] [address]- 3925 Aug, [facility] [id number] [place] [address] 54998- 7581 July, [facility] [address] [place] [address] 99507- 3516 16 Jun, 2017 [facility] [address] [address]- 2957 13 Jun, 2017 [facility] [address] [address]- 0600 10 Jun, 2017 Diabetes type 2, controlled E11.9 [facility] [address] [address]- 1511 Jun, [facility] [address] [address]- 2823 28 May, 2017 [facility] [address] [address]- 7506 May, [facility] [address] [address]- 9093 May, [facility] [id number] [place] [address] 95899- 6562 May, Chronic congestive heart failure, unspecified congestive heart failure type I50.9 [facility] [id number] [place] [address] 12087- 6541 May, Diabetes type 2, controlled E11.9 ; BMI 50.0-59.9, adult Z68.43 ; Chronic congestive heart failure, unspecified heart failure type I50.9 ; Angina pectoris I20.9 ; Seasonal allergic rhinitis due to other allergic trigger J30.89 and Renal failure N19 [facility] [address] [id number] May, [facility] [id number] [place] [address] 54286- 2032 May, [facility] [id number] [place] [address] 43701- 1951 May, [facility] [id number] [place] [address] 15461- 6999 May, [facility] [id number] [place] [address] 19074- 1443 May, [facility] [address] [place] [address] 95868- 2822 Apr, BMI 50.0-59.9, adult Z68.43 [facility] [id number] [place] [address] 90259- 7750 Apr, BMI 50.0-59.9, adult Z68.43 ; Post-procedural fever R50.82 and Bronchitis J40 [facility] [address] [place] [address] 89254- 8498 Apr, Chronic congestive heart failure, unspecified congestive heart failure type I50.9 [facility] [id number] [place] [address] [place] [address]- 0807 Jan, [facility] [id number] [place] [address] 51380- 2696 Jan, Diabetes type 2, controlled E11.9 [facility] [address] [id number] [address]- 3141 Jan, Neuropathy G62.9 [facility] [address] [facility] [id number] [place] [address] 98652- 2236 Jan, [facility] [address] [id number] [place] [address] 53285- 2887 Jan, [facility] [address] [facility] [id number] [place] [address] 23001- 7147 Jan, [facility] [id number] [place] [address] 33401- 1002 Jan, [facility] [id number] [place] [address] 56148- 0062 Jan, [facility] [address] [address]- 0193 Dec, [facility] [address] [place] [address] 95190- 3667 Dec, [facility] [address] [address]- 2878 Dec, Diabetes type 2, controlled E11.9 [facility] [address] [facility] [id number] [address]- 7804 Dec, [facility] [id number] [address]- 5682 Dec, [facility] [address] [place] [address] 64030- 5133 Dec, Chronic congestive heart failure, unspecified congestive heart failure type I50.9 [facility] [id number] [address]- 7246 Dec, [facility] [address] [address]- 0654 Dec, [facility] [address] [address]- 1010 Nov, Chronic congestive heart failure, unspecified congestive heart failure type I50.9 [facility] [address] [address]- 9475 Nov, Chronic congestive heart failure, unspecified congestive heart failure type I50.9 [facility] [address] [address]- 5398 Nov, [facility] [address] [address]- 6212 Oct, [facility] [address] [address]- 4495 Oct, [facility] [address] [address]- 4095 Oct, Chronic congestive heart failure, unspecified congestive heart failure type I50.9 [facility] [address] [address]- 5426 Oct, [facility] [address] [address]- 0567 Oct, Pneumonia of both lungs due to infectious organism, unspecified part of lung J18.9 [facility] [address] [address]- 0620 Oct, [facility] [id number] [address]- 9107 Oct, Diabetes type 2, controlled E11.9 [facility] [address] [address]- 6090 Oct, Diabetes type 2, controlled E11.9 [facility] [address] [address]- 8642 Sep, [facility] [address] [address]- 8149 Sep, Neuropathy G62.9 [facility] [id number] [place] [address] 27156- 7076 Aug, Intra-dialytic hypotension I95.3 [facility] [address] [address] 2546 July, [facility] [id number] [place] [address] 21685- 9606 July, [facility] [id number] [place] [address] 23102- 6246 July, [facility] [id number] [place] [address] 037335- 4342 July, Amput below knee, unilat S88.119A [facility] [id number] [place] [address] 29554- 1606 May, [facility] [id number] [place] [address] 00214- 0046 May, Neuropathy G62.9 [facility] [id number] [address]- 9142 May, [facility] [address] 5899 May, [facility] [address] [address]- 6826 May, [facility] [address] [address] 2540 May, [facility] [id number] [place] [address] 06479- 8066 May, Neuropathy G62.9 [facility] [address] [address]- 3976 Apr, [facility] [id number] [address]- 6999 Apr, [facility] [address] [facility] [id number] [place] [address]- 8068 Apr, Diabetes type 2, controlled E11.9 and Renal failure N19 [facility] [address] [id number] [place] [address]1766 Apr, [facility] [address] [facility] [id number] [place] [address], [place] [address]- 4870 Apr, [facility] [address] [id number] [place] [address]- 8855 Mar, [facility] [address] [facility] [id number] [place] [address], [place] [address]- 7226 Mar, [facility] [id number] [address]- 8427 Mar, [facility] [id number] [place] [address], [place] [address]- 3387 Mar, [facility] [address] [facility] [id number] [place] [address]- 1059 Mar, [facility] [address] [address]- 5729 Jan, Localized edema R60.0 [facility] [id number] [address]- 5650 Jan, [facility] [id number] [address]- 3947 Jan, [facility] [address] [facility] [id number] [place] [address]- 7421 Jan, [facility] [address] [facility] [id number] [place] [address]- 0937 Jan, [facility] [id number] [address]- 7838 Jan, [facility] [address] [address]- 8988 Jan, [facility] [id number] [place] [address] 88135- 6173 Dec, Diabetes type 2, controlled E11.9 and Chronic nonintractable headache, unspecified headache type R51 [facility] [id number] [place] [address] 33803- 2333 Dec, [facility] [id number] [place] [address] 54594- 7618 Dec, [facility] [id number] [place] [address] 79094- 8582 Nov, [facility] [id number] [place] [address] 57443- 9555 Nov, [facility] [id number] [place] [address] 01749- 7203 Oct, [facility] [id number] [place] [address] 69382- 6699 Oct, Migraine without status migrainosus, not intractable, unspecified migraine type G43.909 [facility] [id number] [place] [address] 87334- 5845 Oct, [facility] [address] [place] [address] 51249- 6737 Sep, Amput below knee, unilat S88.119A and Neuropathy G62.9 [facility] [address] [place] [address] 10482- 0614 Sep, [facility] [address] [place] [address] 64155- 1228 Sep, [facility] [id number] [place] [address] 89575- 7625 Sep, [facility] [address] [place] [address] 55905- 3762 Aug, [facility] [address] [place] [address]- 9978 Aug, [facility] [address] [facility] [id number] [place] [address]- 9746 Aug, Diabetes type 2, controlled E11.9 [facility] [address] [facility] [id number] [place] [address] 2546 Aug, [facility] [address] [facility] [id number] [place] [address]- 6387 Jun, Diabetes type 2, controlled E11.9 and Neuropathy G62.9 [facility] [address] [facility] [id number] [place] [address]- 1971 14 Jul, 2015 [facility] [address] [facility] [id number] [place] [address]- 3429 Jun, [facility] [address] [facility] [id number] [place] [address]- 1966 Jun, [facility] [address] [facility] [id number] [place] [address]- 9547 Jun, [facility] [address] [facility] [id number] [place] [address]- 2461 May, [facility] [address] [facility] [id number] [place] [address]- 9478 May, Diabetes type 2, controlled E11.9 [facility] [address] [facility] [id number] [place] [address]- 7461 May, [facility] [address] [facility] [id number] [place] [address]- 2540 May, [facility] [address] [facility] [id number] [place] [address]- 3022 May, [facility] [address] [facility] [id number] [place] [address]- 6046 May, [facility] [address] [facility] [id number] [place] [address]- 0872 May, [facility] [address] [address]- 1313 May, [facility] [address] [place] [address] 36732- 0729 May, [facility] [address] [address]- 3830 May, COPD (chronic obstructive pulmonary disease) J44.9 [facility] [address] [address]- 0984 May, [facility] [id number] [place] [address] 13450- 9483 May, [facility] [id number] [place] [address] 00874- 0753 May, [facility] [address] [place] [address] 09945- 8894 May, [facility] [address] [address]- 4124 May, [facility] [address] [place] [address] 86535- 0382 May, Renal failure N19 and Pneumonia, organism unspecified, unspecified laterality, unspecified part of lung J18.9 [facility] [address] [address]- 5004 Apr, [facility] [address] [address]- 1268 Apr, [facility] [address] [address]- 6754 Apr, [facility] [address] [address]- 5160 Apr, Diabetes mellitus 250.00 [facility] [address] [address]- 7023 14 Apr, 2015 [facility] [place] [facility] [address] [id number] [place] [address]- 7765 14 Apr, 2015 [facility] [place] [facility] [address] [id number] [place] [address]- 1122 13 Apr, 2015 [facility] [place] [facility] [address] [id number] [place] [address]- 6608 07 Apr, 2015 [facility] [place] [facility] [address] [id number] [place] [address], [place] [address]- 2825 31 Mar, 2015 [facility] [place] [facility] [address] [id number] [place] [address]- 0769 28 Mar, 2015 [facility] [place] [facility] [address] [id number] [place] [address], [place] [address]- 0298 23 Mar, 2015 [facility] [place] [facility] [address] [id number] [address]- 8448 16 Mar, 2015 Renal failure N19 [facility] [place] [facility] [address] [facility] [id number] [place] [address]- 3093 14 Mar, 2015 [facility] [place] [facility] [address] [facility] [id number] [place] [address]- 8616 Mar, [facility] [place] [facility] [address] [id number] [address]- 0645 04 Mar, 2015 [facility] [place] [facility] [address] [id number] [address]- 3648 24 Jan, 2015 [facility] [place] [facility] [address] [id number] [place] [address]- 7570 18 Jan, 2015 [facility] [place] [facility] [address] [id number] [place] [address]- 3790 17 Jan, 2015 [facility] [place] [facility] [address] [id number] [place] [address]- 8138 13 Jan, 2015 [facility] [place] [facility] [address] [facility] [id number] [place] [address]- 4880 20 Dec, 2014 [facility] [place] [facility] [address] [id number] [place] [address]- 9671 Dec, [facility] [address] [id number] [address]- 2262 Dec, [facility] [address] [id number] [address] Nov, [facility] [id number] [address] Nov, [facility] [id number] [place] [address] Nov, [facility] [id number] [place] [address] Oct, [facility] [id number] [address] Oct, [facility] [id number] [place] [address] Oct, Renal failure 586 and Obesity 278.00 [facility] [id number] [address] Oct, [facility] [id number] [address] Oct, [facility] [id number] [address] Oct, [facility] [id number] [address] Sep, [facility] [id number] [address] Sep, [facility] [id number] [address] Sep, Diabetes mellitus 250.00 and Congestive heart failure, unspecified 428.0 [facility] [address] [address] Aug, [facility] [id number] [address] Aug, [facility] [address] [id number] [place] [address] Aug, [facility] [address] [id number] [place] [address] July, [facility] [address] [id number] [place] [address] July, [facility] [place] [facility] [address] [id number] [place] [address] July, Heart murmur, systolic 785.2 [facility] [address] [id number] [place] [address] July, [facility] [address] [id number] [place] [address] July, [facility] [address] [id number] [place] [address] Jun, [facility] [address] [id number] [place] [address] Jun, [facility] [facility] [address] [id number] [place] [address] May, [facility] [place] [facility] [address] [id number] [place] [address] 23 May, 2014 [facility] [place] [facility] [address] [id number] [place] [address] 18 May, 2014 [facility] [place] [facility] [address] [id number] [place] [address] 18 May, 2014 [facility] [place] [facility] [address] [id number] [place] [address]- [address] 16 May, 2014 [facility] [place] [facility] [address] [id number] [place] [address] 16 May, 2014 [facility] [place] [facility] [address] [id number] [place] [address] May, 2014 [facility] [place] [facility] [address] [facility] [id number] [place] [address] May, 2014 [facility] [place] [facility] [address] [facility] [id number] [place] [address] May, 2014 [facility] [place] [facility] [address] [facility] [id number] [place] [address]- [address] May, 2014 [facility] [place] [facility] [address] [facility] [id number] [place] [address] May, 2014 [facility] [place] [facility] [address] [facility] [id number] [place] [address]- [address] May, 2014 [facility] [place] [facility] [address] [facility] [id number] [place] [address]- [address] May, 2014 [facility] [place] [facility] [address] [facility] [id number] [place] [address]- [address] May, 2014 [facility] [place] [facility] [address] [facility] [id number] [place] [address] 18 May, 2014 [facility] [place] [facility] [address] [facility] [id number] [place] [address]- [address] May, 2014 [facility] [place] [facility] [address] [facility] [id number] [place] [address]- [address] May, 2014 [facility] [place] [facility] [address] [facility] [id number] [place] [address] May, 2014 [facility] [place] [facility] [address] [facility] [id number] [place] [address] May, 2014 [facility] [place] [facility] [address] [facility] [id number] [place] [address]8 May, 2014 [facility] [place] [facility] [address] [facility] [id number] [place] [address] 7268 16 May, 2014 [facility] [place] [facility] [address] [facility] [id number] [place] [address] 3603 16 May, 2014 [facility] [place] [facility] [address] [id number] [place] [address] 0068 May, [facility] [place] [facility] [address] [id number] [place] [address]- 0186 May, [facility] [place] [facility] [address] [id number] [place] [address] 8003 May, [facility] [place] [facility] [address] [id number] [place] [address]- 5480 May, [facility] [place] [facility] [address] [id number] [place] [address]- 2545 Apr, [facility] [place] [facility] [address] [id number] [place] [address]- 9044 Apr, [facility] [place] [facility] [address] [id number] [place] [address]- 4691 Apr, [facility] [place] [facility] [address] [id number] [place] [address]- 4397 Apr, [facility] [place] [facility] [address] [id number] [place] [address]- 6804 Apr, [facility] [place] [facility] [address] [id number] [place] [address]- 3632 Apr, [facility] [place] [facility] [address] [id number] [place] [address]- 9439 Apr, [facility] [place] [facility] [address] [id number] [place] [address]- 6607 Apr, [facility] [place] [facility] [address] [id number] [place] [address]- 1484 Mar, [facility] [place] [facility] [address] [id number] [place] [address]- 1210 Mar, [facility] [place] [facility] [address] [id number] [place] [address] Mar, [facility] [place] [facility] [address] [id number] [place] [address]- 0294 Mar, [facility] [place] [facility] [address] [id number] [place] [address]- 8556 Mar, [facility] [place] [facility] [address] [id number] [place] [address]- 0636 Mar, [facility] [place] [facility] [address] [id number] [place] [address]- 4546 18 Mar, 2014 [facility] [place] [facility] [address] [id number] [place] [address]- 7329 18 Mar, 2014 [facility] [place] [facility] [address] [id number] [place] [address]- 3374 Mar, [facility] [place] [facility] [address] [id number] [place] [address]- 6468 Mar, [facility] [place] [facility] [address] [id number] [place] [address]- 8010 Mar, [facility] [place] [facility] [address] [id number] [place] [address]- 3842 Mar, [facility] [place] [facility] [address] [id number] [place] [address]- 9389 Mar, [facility] [place] [facility] [address] [id number] [place] [address]- 5774 Mar, [facility] [place] [facility] [address] [id number] [place] [address]- 8309 10 Mar, 2014 [facility] [place] [facility] [address] [id number] [place] [address]- 9612 10 Mar, 2014 [facility] [place] [facility] [address] [id number] [place] [address]- 2608 Mar, [facility] [place] [facility] [address] [id number] [place] [address]- 6192 10 Mar, 2014 [facility] [place] [facility] [address] [id number] [place] [address]- 0724 Mar, [facility] [place] [facility] [address] [id number] [place] [address]- 0248 Mar, [facility] [place] [facility] [address] [id number] [place] [address]- 1800 Mar, [facility] [place] [facility] [address] [id number] [place] [address]- 4429 Mar, [facility] [place] [facility] [address] [id number] [place] [address]- 3922 Jan, [facility] [place] [facility] [address] [id number] [place] [address]- 7022 Jan, [facility] [place] [facility] [address] [id number] [place] [address]- 8501 Jan, [facility] [place] [facility] [address] [id number] [place] [address]- 3167 Jan, [facility] [place] [facility] [address] [id number] [place] [address]- 9908 Jan, [facility] [place] [facility] [address] [id number] [place] [address]- 5843 Jan, [facility] [place] [facility] [address] [id number] [place] [address]- 7606 Jan, [facility] [place] [facility] [address] [id number] [place] [address]- 1342 Jan, [facility] [place] [facility] [address] [id number] [place] [address]- 0644 Jan, [facility] [place] [facility] [address] [id number] [place] [address]- 1752 Jan, [facility] [place] [facility] [address] [id number] [place] [address]- 4673 Jan, [facility] [place] [facility] [address] [id number] [place] [address]- 5266 Jan, [facility] [place] [facility] [address] [id number] [place] [address]- 0219 Jan, [facility] [place] [facility] [address] [id number] [place] [address]- 0847 Jan, [facility] [place] [facility] [address] [id number] [place] [address]- 9195 Jan, [facility] [place] [facility] [address] [id number] [place] [address]- 1664 Jan, [facility] [place] [facility] [address] [id number] [place] [address]- 9237 Jan, [facility] [place] [facility] [address] [id number] [place] [address]- 9855 Jan, [facility] [place] [facility] [address] [id number] [place] [address]- 6271 Jan, [facility] [place] [facility] [address] [id number] [place] [address]- 6142 Jan, [facility] [place] [facility] [address] [id number] [place] [address]- 2626 Dec, [facility] [place] [facility] [address] [id number] [place] [address]- 4087 Dec, [facility] [place] [facility] [address] [id number] [place] [address]- 8557 Dec, [facility] [place] [facility] [address] [id number] [place] [address]- 5271 Dec, [facility] [place] [facility] [address] [id number] [place] [address]- 5109 Dec, [facility] [place] [facility] [address] [id number] [place] [address]- 9505 Dec, [facility] [place] [facility] [address] [id number] [place] [address]- 7955 Dec, [facility] [place] [facility] [address] [id number] [place] [address]- 4898 Dec, [facility] [place] [facility] [address] [id number] [place] [address]- 6321 10 Dec, 2013 [facility] [place] [facility] [address] [id number] [place] [address]- 3359 08 Dec, 2013 [facility] [place] [facility] [address] [id number] [place] [address]- 3275 Dec, [facility] [place] [facility] [address] [id number] [place] [address]- 6910 Dec, [facility] [place] [facility] [address] [id number] [place] [address]- 1834 Dec, [facility] [place] [facility] [address] [id number] [place] [address]- 5362 Dec, [facility] [place] [facility] [address] [id number] [place] [address]- 3961 Dec, [facility] [place] [facility] [address] [id number] [place] [address]- 9215 22 Nov, 2013 [facility] [place] [facility] [address] [id number] [place] [address]- 9279 22 Nov, 2013 [facility] [place] [facility] [address] [id number] [place] [address] 2543 19 Nov, 2013 [facility] [place] [facility] [address] [id number] [place] [address]- 254 19 Sep, 2013 [facility] [place] [facility] [address] [id number] [place] [address] 2546 13 Nov, 2013 [facility] [place] [facility] [address] [id number] [place] [address]- 2541 13 Nov, 2013 [facility] [place] [facility] [address] [id number] [place] [address] 2541 10 Nov, 2013 [facility] [place] [facility] [address] [id number] [place] [address]- 254 10 Nov, 2013 [facility] [place] [facility] [address] [id number] [place] [address]- 2548 08 Sep, 2013 [facility] [place] [facility] [address] [id number] [place] [address]- 5734 Nov, 2013 [facility] [place] [facility] [address] [id number] [place] [address]- 5699 Nov, [facility] [place] [facility] [address] [id number] [place] [address]- 8991 Nov, [facility] [place] [facility] [address] [id number] [place] [address]- 2741 Nov, [facility] [place] [facility] [address] [id number] [place] [address]- 2912 Oct, [facility] [place] [facility] [address] [id number] [place] [address]- 6745 Oct, [facility] [place] [facility] [address] [id number] [place] [address]- 2889 Oct, [facility] [place] [facility] [address] [id number] [place] [address]- 2096 Oct, [facility] [place] [facility] [address] [id number] [place] [address]- 6754 Oct, [facility] [place] [facility] [address] [id number] [place] [address]- 9778 Sep, [facility] [place] [facility] [address] [id number] [place] [address]- 7371 Sep, [facility] [place] [facility] [address] [id number] [place] [address]- 5663 Sep, [facility] [place] [facility] [address] [id number] [place] [address]- 9778 Sep, [facility] [place] [facility] [address] [id number] [place] [address]- 7019 Aug, [facility] [place] [facility] [address] [id number] [place] [address]- 6172 Aug, [facility] [place] [facility] [address] [id number] [place] [address]- 3885 Aug, [facility] [place] [facility] [address] [id number] [place] [address]- 7376 Aug, [facility] [place] [facility] [address] [id number] [place] [address]- 7943 Aug, [facility] [place] [facility] [address] [id number] [place] [address]- 3886 Aug, [facility] [place] [facility] [address] [id number] [place] [address]- 3626 Aug, [facility] [place] [facility] [address] [id number] [place] [address]- 8533 Aug, [facility] [place] [facility] [address] [id number] [place] [address]- 4896 Aug, [facility] [place] [facility] [address] [id number] [place] [address]- 8720 Aug, [facility] [place] [facility] [address] [id number] [place] [address]- 0644 Aug, [facility] [place] [facility] [address] [id number] [place] [address]- 4635 Aug, [facility] [place] [facility] [address] [id number] [place] [address]- 5938 Aug, [facility] [place] [facility] [address] [id number] [place] [address]- 8308 Aug, [facility] [place] [facility] [address] [id number] [place] [address]- 6824 Aug, [facility] [place] [facility] [address] [id number] [place] [address]- 1612 Aug, [facility] [place] [facility] [address] [id number] [place] [address]- 2954 Aug, [facility] [place] [facility] [address] [id number] [place] [address]- 2260 Aug, [facility] [place] [facility] [address] [id number] [place] [address]- 2691 Aug, [facility] [place] [facility] [address] [id number] [place] [address]- 6988 Aug, [facility] [place] [facility] [address] [id number] [place] [address]- 2687 Aug, [facility] [place] [facility] [address] [id number] [place] [address]- 1414 Aug, [facility] [place] [facility] [address] [id number] [place] [address]- 5141 Aug, [facility] [place] [facility] [address] [id number] [place] [address]- 1777 Aug, [facility] [place] [facility] [address] [id number] [place] [address]- 0083 July, [facility] [place] [facility] [address] [id number] [place] [address]- 5451 July, [facility] [place] [facility] [address] [id number] [place] [address]- 6885 July, [facility] [place] [facility] [address] [id number] [place] [address]- 7711 July, [facility] [place] [facility] [address] [id number] [place] [address]- 0521 July, [facility] [place] [facility] [address] [id number] [place] [address]- 3396 July, [facility] [place] [facility] [address] [id number] [place] [address]- 8252 Jun, [facility] [place] [facility] [address] [id number] [place] [address]- 8087 Jun, [facility] [place] [facility] [address] [id number] [place] [address]- 5768 Jun, [facility] [place] [facility] [address] [id number] [place] [address]- 2107 Jun, [facility] [place] [facility] [address] [id number] [place] [address]- 8671 Jun, [facility] [place] [facility] [address] [id number] [place] [address]- 9893 Jun, [facility] [place] [facility] [address] [id number] [place] [address]- 4574 Jun, [facility] [place] [facility] [address] [id number] [place] [address]- 0658 Jun, [facility] [place] [facility] [address] [id number] [place] [address]- 2269 Jun, [facility] [place] [facility] [address] [id number] [place] [address]- 0342 Jun, [facility] [place] [facility] [address] [id number] [place] [address]- 7802 Jun, [facility] [place] [facility] [address] [id number] [place] [address]- 3835 Jun, [facility] [place] [facility] [address] [id number] [place] [address]- 0151 Jun, [facility] [place] [facility] [address] [id number] [place] [address]- 3200 Jun, [facility] [place] [facility] [address] [id number] [place] [address]- 8994 Jun, [facility] [place] [facility] [address] [id number] [place] [address]- 4538 May, [facility] [place] [facility] [address] [id number] [place] [address]- 1725 May, [facility] [place] [facility] [address] [id number] [place] [address]- 5478 May, [facility] [place] [facility] [address] [id number] [place] [address]- 7143 May, [facility] [place] [facility] [address] [id number] [place] [address]- 1792 May, [facility] [place] [facility] [address] [id number] [place] [address]- 4900 May, [facility] [place] [facility] [address] [id number] [place] [address]- 9582 May, [facility] [place] [facility] [address] [id number] [place] [address]- 3779 May, [facility] [place] [facility] [address] [id number] [place] [address]- 5458 May, [facility] [place] [facility] [address] [id number] [place] [address]- 4642 May, [facility] [place] [facility] [address] [id number] [place] [address]- 8211 May, [facility] [place] [facility] [address] [id number] [place] [address]- 0994 May, [facility] [place] [facility] [address] [id number] [place] [address]- 4974 May, [facility] [place] [facility] [address] [id number] [place] [address]- 9045 May, [facility] [place] [facility] [address] [id number] [place] [address]- 3200 May, [facility] [place] [facility] [address] [id number] [place] [address]- 6130 May, [facility] [place] [facility] [address] [id number] [place] [address]- 2409 May, [facility] [place] [facility] [address] [id number] [place] [address]336 Apr, [facility] [place] [facility] [address] [id number] [place] [address]- 1921 Apr, [facility] [place] [facility] [address] [id number] [place] [address]- 5438 Apr, [facility] [place] [facility] [address] [id number] [place] [address]- 0692 Apr, [facility] [place] [facility] [address] [id number] [place] [address]- 3150 Apr, [facility] [place] [facility] [address] [id number] [place] [address]- 1987 Apr, [facility] [place] [facility] [address] [id number] [place] [address]- 6718 Apr, [facility] [place] [facility] [address] [id number] [place] [address]- 9314 Apr, [facility] [place] [facility] [address] [id number] [place] [address]- 9911 Apr, [facility] [place] [facility] [address] [id number] [place] [address]- 2746 Apr, [facility] [place] [facility] [address] [id number] [place] [address]- 7080 Apr, [facility] [place] [facility] [address] [id number] [place] [address]- 4488 Apr, [facility] [place] [facility] [address] [id number] [place] [address]- 8944 Apr, [facility] [place] [facility] [address] [id number] [place] [address]- 8054 Apr, [facility] [place] [facility] [address] [id number] [place] [address]- 1631 Apr, [facility] [place] [facility] [address] [id number] [place] [address]- 5936 Apr, [facility] [place] [facility] [address] [id number] [place] [address]- 9506 Mar, [facility] [place] [facility] [address] [id number] [place] [address]- 2643 Mar, [facility] [place] [facility] [address] [id number] [place] [address]- 1756 30 Mar, 2012 [facility] [address] [id number] [place] [address]- 8506 30 Mar, 2013 [facility] [address] [id number] [place] [address]- 3136 18 Mar, 2013 [facility] [address] [id number] [place] [address]- 2865 18 Mar, 2013 [facility] [address] [id number] [place] [address]- 1622 18 Mar, 2013 [facility] [address] [id number] [place] 4436 18 Mar, 2013 [facility] [address] [id number] [place] [address]- 5089 17 Mar, 2013 [facility] [address] [id number] [place] [address]- 7207 17 Mar, 2013 [facility] [address] [id number] [place] [address]- 5459 05 Mar, 2013 [facility] [address] [id number] [place] [address]- 3428 05 Mar, 2013 [facility] [place] [facility] [address] [id number] [place] [address]- 5203 04 Mar, 2013 [facility] [address] [id number] [place] [address]- 0073 04 Mar, 2013 [facility] [place] [facility] [address] [id number] [place] [address]- 1218 04 Mar, 2013 [facility] [place] [facility] [address] [id number] [place] [address]- 8616 Mar, [facility] [place] [facility] [address] [id number] [place] [address]- 9758 02 Mar, 2013 [facility] [place] [facility] [address] [id number] [place] [address]- 0486 02 Mar, 2013 [facility] [place] [facility] [address] [id number] [place] [address] Jan, [facility] [place] [facility] [address] [id number] [place] [address] Jan, [facility] [place] [facility] [address] [id number] [place] [address] Jan, [facility] [place] [facility] [address] [id number] [place] [address] Jan, [facility] [place] [facility] [address] [id number] [place] [address] Nov, [facility] [place] [facility] [address] [id number] [place] [address] Nov, [facility] [place] [facility] [address] [id number] [place] [address] Nov, [facility] [place] [facility] [address] [id number] [place] [address] Nov, [facility] [place] [facility] [address] [id number] [place] [address] Oct, [facility] [place] [facility] [address] [id number] [place] [address] Oct, [facility] [place] [facility] [address] [id number] [place] [address] Oct, [facility] [place] [facility] [address] [id number] [place] [address] Oct, [facility] [place] [facility] [address] [id number] [place] [address] Sep, [facility] [place] [facility] [address] [id number] [place] [address] Sep, [facility] [place] [facility] [address] [id number] [place] [address] Sep, [facility] [place] [facility] [address] [id number] [place] [address] Sep, [facility] [address] [id number] [place] [address] Sep, [facility] [place] [facility] [address] [id number] [place] [address] Sep, [facility] [place] [facility] [address] [id number] [place] [address] Sep, [facility] [place] [facility] [address] [id number] [place] [address] Sep, [facility] [address] [id number] [place] [address] Sep, [facility] [place] [facility] [address] [id number] [place] [address] Aug, [facility] [place] [facility] [address] [id number] [place] [address] Aug, [facility] [place] [facility] [address] [id number] [place] [address] Aug, [facility] [place] [facility] [address] [id number] [place] [address] Aug, [facility] [place] [facility] [address] [id number] [place] [address] July, [facility] [place] [facility] [address] [id number] [place] [address] July, [facility] [place] [facility] [address] [id number] [place] [address] July, [facility] [place] [facility] [address] [id number] [place] [address] July, [facility] [place] [facility] [address] [id number] [place] [address] July, [facility] [place] [facility] [address] [id number] [place] [address] July, [facility] [place] [facility] [address] [id number] [place] [address] July, [facility] [address] [id number] [address] Jun, [facility] [address] [id number] [address] 25[address] May, [facility] [id number] [place] [address] May, [facility] [id number] [place] [address] May, [facility] [id number] [place] [address] May, [facility] [id number] [place] [address] May, [facility] [id number] [place] [address] May, [facility] [address] [id number] [address] May, [facility] [id number] [place] [address] May, IMMUNIZATIONS No Known Immunizations SOCIAL HISTORY Never Assessed REASON FOR VISIT Medication question PLAN OF CARE VITAL SIGNS MEDICATIONS Unknown [...]
--- OUTSIDE RECORDS SUMMARY | 2017-12-18 19:55 | XMS REPORT ---
Author Author MCKENNA HEBERT Organization [facility] Address [address] [place] [address] Care Team Providers Care Watcher Automat Long Goods Name Role Phone MCKENNA HEBERT Unavailable PROBLEMS Type Condition ICD9-CM Code YUC02-PL Code Onset Dates Condition Status SNOMED Code Problem Neuropathy G62.9 Active 509485715 Problem Intra-dialytic hypotension I95.3 Active 725029580 Problem Amput below knee, unilat S88.119A Active 80846103 Problem Cellulitis of right lower extremity L03.115 Active 514199426 Problem Diabetes type 2, controlled E11.9 Active 10903600 Problem Renal failure N19 Active 74064529 Problem 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 Active 2475420 Problem Other chronic pain G89.29 Active 19529168 Problem Seasonal allergic rhinitis due to other allergic trigger J30.89 Active 533099061 Problem Chronic congestive heart failure, unspecified congestive heart failure type I50.9 Active 45927333 Problem Angina pectoris I20.9 Active 383953910 Problem Chronic congestive heart failure, unspecified heart failure type I50.9 Active 35703816 ALLERGIES No Information ENCOUNTERS Encounter Location Date Diagnosis [facility] [address] [address] Oct, [facility] [id number] [place] [address] 63740- 1536 Sep, [facility] [id number] [place] [address] [id number] Sep, Dental examination Z01.20 and Dental caries K02.9 [facility] [id number] [place] [address] 73122- 6129 Sep, [facility] [id number] [place] [address] 92409- 0498 Sep, [place] [address] [address]- 7290 Sep, Other chronic pain G89.29 and Pain in right knee M25.561 [facility] [id number] [address]- 6301 05 Sep, 2017 [facility] [id number] [place] [address] 98869- 1766 Aug, [facility] [id number] [place] [address] 99436- 4091 Aug, 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 [facility] [id number] [place] [address] 88468- 2233 Aug, [facility] [id number] [place] [address] 24235- 3399 Aug, Diabetes type 2, controlled E11.9 and Acute pain of right knee M25.561 [facility] [address] [address]- 3297 Aug, [facility] [id number] [place] [address] 57418- 1353 July, [facility] [id number] [place] [address] 33794- 4414 16 Jun, 2017 [facility] [address] [address]- 5972 13 Jun, 2017 [facility] [address] [address]- 5967 10 Jun, 2017 Diabetes type 2, controlled E11.9 [facility] [address] [address]- 4663 Jun, [facility] [address] [address]- 1100 28 May, 2017 [facility] [address] [address]- 7590 May, [facility] [address] [address]- 8153 May, [facility] [id number] [place] [address] 19002- 9594 May, Chronic congestive heart failure, unspecified congestive heart failure type I50.9 [facility] [id number] [place] [address] 70829- 3279 May, Diabetes type 2, controlled E11.9 ; BMI 50.0-59.9, adult Z68.43 ; Chronic congestive heart failure, unspecified heart failure type I50.9 ; Angina pectoris I20.9 ; Seasonal allergic rhinitis due to other allergic trigger J30.89 and Renal failure N19 [facility] [address] [id number] May, [facility] [id number] [place] [address] 90072- 1838 May, [facility] [id number] [place] [address] 34622- 5515 May, [facility] [id number] [place] [address] 58794- 7893 May, [facility] [id number] [place] [address] 65207- 6612 May, [facility] [id number] [place] [address] 34508- 6095 Apr, BMI 50.0-59.9, adult Z68.43 [facility] [id number] [place] [address] 84476- 1139 Apr, BMI 50.0-59.9, adult Z68.43 ; Post-procedural fever R50.82 and Bronchitis J40 [facility] [id number] [place] [address] 06525- 9840 Apr, Chronic congestive heart failure, unspecified congestive heart failure type I50.9 [facility] [id number] [place] [address] [place] [address]- 5674 Jan, [facility] [address] [id number] [place] [address] 71654- 7348 Jan, Diabetes type 2, controlled E11.9 [facility] [id number] [address]- 5892 Jan, Neuropathy G62.9 [facility] [address] [facility] [id number] [place] [address] 13141- 6607 Jan, [facility] [id number] [place] [address] 57841- 6399 Jan, [facility] [address] [facility] [id number] [place] [address] 97275- 1855 Jan, [facility] [id number] [place] [address] 14983- 1300 Jan, [facility] [id number] [place] [address] 01378- 1744 Jan, [facility] [address] [address]- 7205 Dec, [facility] [id number] [place] [address] 75675- 9430 Dec, [facility] [address] [address]- 2873 Dec, Diabetes type 2, controlled E11.9 [facility] [address] [facility] [id number] [place] [address]- 6782 Dec, [facility] [id number] [address]- 4591 Dec, [facility] [id number] [place] [address] 47625- 5586 Dec, Chronic congestive heart failure, unspecified congestive heart failure type I50.9 [facility] [id number] [address]- 9614 Dec, [facility] [address] [address]- 2359 Dec, [facility] [address] [address]- 5852 Nov, Chronic congestive heart failure, unspecified congestive heart failure type I50.9 [facility] [address] [address]- 3580 Nov, Chronic congestive heart failure, unspecified congestive heart failure type I50.9 [facility] [address] [address]- 5785 Nov, [facility] [address] [address]- 8806 Oct, [facility] [address] [address]- 4953 Oct, [facility] [address] [address]- 5503 Oct, Chronic congestive heart failure, unspecified congestive heart failure type I50.9 [facility] [address] [address]- 2813 Oct, [facility] [address] [address]- 9927 Oct, Pneumonia of both lungs due to infectious organism, unspecified part of lung J18.9 [facility] [address] [address]- 0065 Oct, [facility] [id number] [address]- 3000 Oct, Diabetes type 2, controlled E11.9 [facility] [address] [address]- 6977 Oct, Diabetes type 2, controlled E11.9 [facility] [address] [address]- 5881 Sep, [facility] [address] [address]- 7836 Sep, Neuropathy G62.9 [facility] [id number] [place] [address] 31274- 7256 Aug, Intra-dialytic hypotension I95.3 [facility] [id number] [place] [address] 2546 July, [facility] [id number] [place] [address] 26829- 9126 July, [facility] [id number] [place] [address] 36966- 5906 July, [facility] [id number] [place] [address] 333505- 4707 July, Amput below knee, unilat S88.119A [facility] [id number] [place] [address] 81814- 3176 May, [facility] [id number] [place] [address] 31822- 7728 May, Neuropathy G62.9 [facility] [id number] [address]- 0154 May, [facility] [address] 1186 May, [facility] [address] [address]- 1006 May, [facility] [address] [address] 2548 May, [facility] [id number] [place] [address] 62305- 7906 May, Neuropathy G62.9 [facility] [address] [address]- 9656 Apr, [facility] [id number] [address]- 9385 Apr, [facility] [address] [facility] [id number] [place] [address]- 5038 Apr, Diabetes type 2, controlled E11.9 and Renal failure N19 [facility] [address] [id number] [place] [address] -3872 Apr, [facility] [address] [facility] [id number] [place] [address], [place] [address]- 6813 Apr, [facility] [address] [id number] [place] [address]- 3281 Mar, [facility] [address] [facility] [id number] [place] [address], [place] [address]- 6752 Mar, [facility] [id number] [place] [address]- 1616 Mar, [facility] [id number] [place] [address], [place] [address]- 2762 Mar, [facility] [address] [facility] [id number] [place] [address]- 5730 Mar, [facility] [id number] [place] [address]- 5542 Jan, Localized edema R60.0 [facility] [id number] [place] [address]- 3147 Jan, [facility] [id number] [address]- 9694 Jan, [facility] [address] [facility] [id number] [place] [address]- 7368 Jan, [facility] [address] [facility] [id number] [place] [address]- 4269 Jan, [facility] [id number] [place] [address]- 2242 Jan, [facility] [address] [address]- 4382 Jan, [facility] [id number] [place] [address] 34310- 2829 Dec, Diabetes type 2, controlled E11.9 and Chronic nonintractable headache, unspecified headache type R51 [facility] [id number] [place] [address] 86885- 4392 Dec, [facility] [id number] [place] [address] 06070- 5811 Dec, [facility] [id number] [place] [address] 96491- 1328 Nov, [facility] [id number] [place] [address] 74768- 1149 Nov, [facility] [id number] [place] [address] 69766- 9789 Oct, [facility] [id number] [place] [address] 50557- 7935 Oct, Migraine without status migrainosus, not intractable, unspecified migraine type G43.909 [facility] [id number] [place] [address] 74527- 5524 Oct, [facility] [id number] [place] [address] 08436- 6876 Sep, Amput below knee, unilat S88.119A and Neuropathy G62.9 [facility] [id number] [place] [address] 27171- 3478 Sep, [facility] [id number] [place] [address] 76187- 2490 Sep, [facility] [id number] [place] [address] 99845- 2884 Sep, [facility] [id number] [place] [address] 66850- 7738 Aug, [facility] [address] [id number] [address]- 5860 Aug, [facility] [address] [facility] [id number] [place] [address]- 4626 Aug, Diabetes type 2, controlled E11.9 [facility] [address] [facility] [id number] [place] [address] 2546 Aug, [facility] [address] [facility] [id number] [place] [address]- 8161 Jun, Diabetes type 2, controlled E11.9 and Neuropathy G62.9 [facility] [address] [facility] [id number] [place] [address]- 9542 14 Jul, 2015 [facility] [address] [facility] [id number] [place] [address]- 7592 Jun, [facility] [address] [facility] [id number] [place] [address]- 9535 Jun, [facility] [address] [facility] [id number] [place] [address]- 3896 Jun, [facility] [address] [facility] [id number] [place] [address]- 5816 May, [facility] [address] [facility] [id number] [place] [address]- 2953 May, Diabetes type 2, controlled E11.9 [facility] [address] [facility] [id number] [place] [address]- 5465 May, [facility] [address] [facility] [id number] [place] [address]- 2542 May, [facility] [address] [facility] [id number] [place] [address]- 9944 May, [facility] [address] [facility] [id number] [place] [address]- 7276 May, [facility] [address] [facility] [id number] [place] [address]- 8027 May, [facility] [address] [address]- 8554 May, [facility] [id number] [place] [address] 70297- 9385 May, [facility] [address] [address]- 4024 May, COPD (chronic obstructive pulmonary disease) J44.9 [facility] [address] [address]- 7733 May, [facility] [id number] [place] [address] 11638- 0958 May, [facility] [id number] [place] [address] 19251- 9937 May, [facility] [id number] [place] [address] 00926- 2786 May, [facility] [address] [address]- 5495 May, [facility] [id number] [place] [address] 62870- 3206 May, Renal failure N19 and Pneumonia, organism unspecified, unspecified laterality, unspecified part of lung J18.9 [facility] [address] [address]- 4362 Apr, [facility] [address] [address]- 0125 Apr, [facility] [address] [address]- 7283 Apr, [facility] [address] [address]- 4184 Apr, Diabetes mellitus 250.00 [facility] [address] [address]- 6557 14 Apr, 2015 [facility] [place] [facility] [address] [id number] [place] [address]- 8546 14 Apr, 2015 [facility] [place] [facility] [address] [id number] [place] [address]- 6680 13 Apr, 2015 [facility] [place] [facility] [address] [id number] [place] [address]- 2869 07 Apr, 2015 [facility] [place] [facility] [address] [id number] [place] [address], [place] [address]- 2019 31 Mar, 2015 [facility] [place] [facility] [address] [id number] [place] [address]- 8759 28 Mar, 2015 [facility] [place] [facility] [address] [id number] [place] [address], [place] [address]- 6241 23 Mar, 2015 [facility] [place] [facility] [address] [id number] [place] [address]- 3412 16 Mar, 2015 Renal failure N19 [facility] [place] [facility] [address] [facility] [id number] [place] [address]- 9190 14 Mar, 2015 [facility] [place] [facility] [address] [facility] [id number] [place] [address]- 9570 Mar, [facility] [place] [facility] [address] [id number] [place] [address]- 6761 04 Mar, 2015 [facility] [place] [facility] [address] [id number] [place] [address]- 2873 24 Jan, 2015 [facility] [place] [facility] [address] [id number] [address]- 5182 18 Jan, 2015 [facility] [place] [facility] [address] [id number] [place] [address]- 0138 17 Jan, 2015 [facility] [place] [facility] [address] [id number] [place] [address]- 2347 13 Jan, 2015 [facility] [place] [facility] [address] [facility] [id number] [place] [address]- 0507 20 Dec, 2014 [facility] [place] [facility] [address] [id number] [place] [address]- 4311 Dec, [facility] [address] [id number] [address]- 9292 Dec, [facility] [address] [id number] [address]- 6415 Nov, [facility] [address] [address]- 9398 Nov, [facility] [id number] [place] [address] 80478- 0850 Nov, [facility] [id number] [place] [address] 64425- 4341 Oct, [facility] [address] [address]- 9424 Oct, [facility] [id number] [place] [address] 58284- 3898 Oct, Renal failure 586 and Obesity 278.00 [facility] [address] [address]- 6009 Oct, [facility] [address] [address]- 5832 Oct, [facility] [address] [address]- 4326 Oct, [facility] [address] [address]- 0765 Sep, [facility] [address] [address]- 0780 Sep, [facility] [id number] [address] Sep, Diabetes mellitus 250.00 and Congestive heart failure, unspecified 428.0 [facility] [id number] [address] Aug, [facility] [id number] [place] [address] Aug, [facility] [address] [id number] [place] [address] Aug, [facility] [address] [id number] [place] [address] July, [facility] [address] [id number] [place] [address] July, [facility] [place] [facility] [address] [id number] [place] [address] July, Heart murmur, systolic 785.2 [facility] [address] [id number] [place] [address] July, [facility] [address] [id number] [place] [address] July, [facility] [address] [id number] [place] [address] Jun, [facility] [address] [id number] [place] [address] Jun, [facility] [place] [facility] [address] [id number] [place] [address] May, [facility] [place] [facility] [address] [id number] [place] [address] 23 May, 2014 [facility] [place] [facility] [address] [id number] [place] [address] 18 May, 2014 [facility] [place] [facility] [address] [id number] [place] [address] 18 May, 2014 [facility] [place] [facility] [address] [id number] [place] [address] 16 May, 2014 [facility] [place] [facility] [address] [id number] [place] [address] 16 May, 2014 [facility] [place] [facility] [address] [id number] [place] [address] May, 2014 [facility] [place] [facility] [address] [facility] [id number] [place] [address] May, 2014 [facility] [place] [facility] [address] [facility] [id number] [place] [address] May, 2014 [facility] [place] [facility] [address] [facility] [id number] [place] [address] May, 2014 [facility] [place] [facility] [address] [facility] [id number] [place] [address] May, 2014 [facility] [place] [facility] [address] [facility] [id number] [place] [address] May, 2014 [facility] [place] [facility] [address] [facility] [id number] [place] [address] May, 2014 [facility] [place] [facility] [address] [facility] [id number] [place] [address] May, 2014 [facility] [place] [facility] [address] [facility] [id number] [place] [address] 18 May, 2014 [facility] [place] [facility] [address] [facility] [id number] [place] [address] May, 2014 [facility] [place] [facility] [address] [facility] [id number] [place] [address] May, 2014 [facility] [place] [facility] [address] [facility] [id number] [place] [address]- [address] May, 2014 [facility] [place] [facility] [address] [facility] [id number] [place] [address] May, 2014 [facility] [place] [facility] [address] [facility] [id number] [place] [address] May, 2014 [facility] [place] [facility] [address] [facility] [id number] [place] [address] 16 May, 2014 [facility] [place] [facility] [address] [facility] [id number] [place] [address] 16 May, 2014 [facility] [place] [facility] [address] [id number] [place] [address] May, [facility] [place] [facility] [address] [id number] [place] [address] May, [facility] [place] [facility] [address] [id number] [place] [address] May, [facility] [place] [facility] [address] [id number] [place] [address] May, [facility] [place] [facility] [address] [id number] [place] [address] Apr, [facility] [place] [facility] [address] [id number] [place] [address] Apr, [facility] [place] [facility] [address] [id number] [place] [address] Apr, [facility] [place] [facility] [address] [id number] [place] [address] Apr, [facility] [place] [facility] [address] [id number] [place] [address] Apr, [facility] [place] [facility] [address] [id number] [place] [address] Apr, [facility] [place] [facility] [address] [id number] [place] [address] 56[address] Apr, [facility] [place] [facility] [address] [id number] [place] [address]- 9220 Apr, [facility] [place] [facility] [address] [id number] [place] [address]- 0137 Mar, [facility] [place] [facility] [address] [id number] [place] [address]- 4757 Mar, [facility] [place] [facility] [address] [id number] [place] [address] Mar, [facility] [place] [facility] [address] [id number] [place] [address]- 2554 Mar, [facility] [place] [facility] [address] [id number] [place] [address]- 9366 Mar, [facility] [place] [facility] [address] [id number] [place] [address]- 2656 Mar, [facility] [place] [facility] [address] [id number] [place] [address]- 4136 18 Mar, 2014 [facility] [place] [facility] [address] [id number] [place] [address]- 0242 18 Mar, 2014 [facility] [place] [facility] [address] [id number] [place] [address]- 7645 Mar, [facility] [place] [facility] [address] [id number] [place] [address]- 9455 Mar, [facility] [place] [facility] [address] [id number] [place] [address]- 1020 Mar, [facility] [place] [facility] [address] [id number] [place] [address]- 3173 Mar, [facility] [place] [facility] [address] [id number] [place] [address]- 6425 Mar, [facility] [place] [facility] [address] [id number] [place] [address]- 9896 Mar, [facility] [place] [facility] [address] [id number] [place] [address]- 6226 10 Mar, 2014 [facility] [place] [facility] [address] [id number] [place] [address]- 7720 10 Mar, 2014 [facility] [place] [facility] [address] [id number] [place] [address]- 1602 Mar, [facility] [place] [facility] [address] [id number] [place] [address]- 0473 10 Mar, 2014 [facility] [place] [facility] [address] [id number] [place] [address]- 2676 Mar, [facility] [place] [facility] [address] [id number] [place] [address]- 6382 Mar, [facility] [place] [facility] [address] [id number] [place] [address]- 6283 Mar, [facility] [place] [facility] [address] [id number] [place] [address]- 2517 Mar, [facility] [place] [facility] [address] [id number] [place] [address]- 8768 Jan, [facility] [place] [facility] [address] [id number] [place] [address]- 4244 Jan, [facility] [place] [facility] [address] [id number] [place] [address]- 3364 Jan, [facility] [place] [facility] [address] [id number] [place] [address]- 9457 Jan, [facility] [place] [facility] [address] [id number] [place] [address]- 9971 Jan, [facility] [place] [facility] [address] [id number] [place] [address]- 3854 Jan, [facility] [place] [facility] [address] [id number] [place] [address]- 8163 Jan, [facility] [place] [facility] [address] [id number] [place] [address]- 6611 Jan, [facility] [place] [facility] [address] [id number] [place] [address]- 5192 Jan, [facility] [place] [facility] [address] [id number] [place] [address]- 9085 Jan, [facility] [place] [facility] [address] [id number] [place] [address]- 9193 Jan, [facility] [place] [facility] [address] [id number] [place] [address]- 8592 Jan, [facility] [place] [facility] [address] [id number] [place] [address]- 2100 Jan, [facility] [place] [facility] [address] [id number] [place] [address]- 7539 Jan, [facility] [place] [facility] [address] [id number] [place] [address]- 1855 Jan, [facility] [place] [facility] [address] [id number] [place] [address]- 1106 Jan, [facility] [place] [facility] [address] [id number] [place] [address]- 6147 Jan, [facility] [place] [facility] [address] [id number] [place] [address]- 8393 Jan, [facility] [place] [facility] [address] [id number] [place] [address]- 6541 Jan, [facility] [place] [facility] [address] [id number] [place] [address]- 8781 Jan, [facility] [place] [facility] [address] [id number] [place] [address]- 3041 Dec, [facility] [place] [facility] [address] [id number] [place] [address]- 3273 Dec, [facility] [place] [facility] [address] [id number] [place] [address]- 0918 Dec, [facility] [place] [facility] [address] [id number] [place] [address]- 2432 Dec, [facility] [place] [facility] [address] [id number] [place] [address]- 3603 Dec, [facility] [place] [facility] [address] [id number] [place] [address]- 0209 Dec, [facility] [place] [facility] [address] [id number] [place] [address]- 1161 Dec, [facility] [place] [facility] [address] [id number] [place] [address]- 9584 Dec, [facility] [place] [facility] [address] [id number] [place] [address]- 8712 10 Dec, 2013 [facility] [place] [facility] [address] [id number] [place] [address]- 1420 08 Dec, 2013 [facility] [place] [facility] [address] [id number] [place] [address]- 9693 Dec, [facility] [place] [facility] [address] [id number] [place] [address]- 9562 Dec, [facility] [place] [facility] [address] [id number] [place] [address]- 8803 Dec, [facility] [place] [facility] [address] [id number] [place] [address]- 2454 Dec, [facility] [place] [facility] [address] [id number] [place] [address]- 0004 Dec, [facility] [place] [facility] [address] [id number] [place] [address]- 7639 22 Nov, 2013 [facility] [place] [facility] [address] [id number] [place] [address]- 1903 22 Nov, 2013 [facility] [place] [facility] [address] [id number] [place] [address] 2548 19 Nov, 2013 [facility] [place] [facility] [address] [id number] [place] [address]- 2547 19 Sep, 2013 [facility] [place] [facility] [address] [id number] [place] [address] 2546 13 Nov, 2013 [facility] [place] [facility] [address] [id number] [place] [address]- 2542 13 Nov, 2013 [facility] [place] [facility] [address] [id number] [place] [address] 2543 10 Nov, 2013 [facility] [place] [facility] [address] [id number] [place] [address]- 2540 10 Nov, 2013 [facility] [place] [facility] [address] [id number] [place] [address]- 2541 08 Sep, 2013 [facility] [place] [facility] [address] [id number] [place] [address]- 5711 Nov, 2013 [facility] [place] [facility] [address] [id number] [place] [address]- 8312 Nov, [facility] [place] [facility] [address] [id number] [place] [address]- 6001 Nov, [facility] [place] [facility] [address] [id number] [place] [address]- 3208 Nov, [facility] [place] [facility] [address] [id number] [place] [address]- 8120 Oct, [facility] [place] [facility] [address] [id number] [place] [address]- 9666 Oct, [facility] [place] [facility] [address] [id number] [place] [address]- 8057 Oct, [facility] [place] [facility] [address] [id number] [place] [address]- 3354 Oct, [facility] [place] [facility] [address] [id number] [place] [address]- 9548 Oct, [facility] [place] [facility] [address] [id number] [place] [address]- 2507 Sep, [facility] [place] [facility] [address] [id number] [place] [address]- 7757 Sep, [facility] [place] [facility] [address] [id number] [place] [address]- 5961 Sep, [facility] [place] [facility] [address] [id number] [place] [address]- 9067 Sep, [facility] [place] [facility] [address] [id number] [place] [address]- 9755 Aug, [facility] [place] [facility] [address] [id number] [place] [address]- 5357 Aug, [facility] [place] [facility] [address] [id number] [place] [address]- 6342 Aug, [facility] [place] [facility] [address] [id number] [place] [address]- 5543 Aug, [facility] [place] [facility] [address] [id number] [place] [address]- 8551 Aug, [facility] [place] [facility] [address] [id number] [place] [address]- 9458 Aug, [facility] [place] [facility] [address] [id number] [place] [address]- 4215 Aug, [facility] [place] [facility] [address] [id number] [place] [address]- 1527 Aug, [facility] [place] [facility] [address] [id number] [place] [address]- 5512 Aug, [facility] [place] [facility] [address] [id number] [place] [address]- 9168 Aug, [facility] [place] [facility] [address] [id number] [place] [address]- 7031 Aug, [facility] [place] [facility] [address] [id number] [place] [address]- 5677 Aug, [facility] [place] [facility] [address] [id number] [place] [address]- 1197 Aug, [facility] [place] [facility] [address] [id number] [place] [address]- 4976 Aug, [facility] [place] [facility] [address] [id number] [place] [address]- 6291 Aug, [facility] [place] [facility] [address] [id number] [place] [address]- 6869 Aug, [facility] [place] [facility] [address] [id number] [place] [address]- 0613 Aug, [facility] [place] [facility] [address] [id number] [place] [address]- 5142 Aug, [facility] [place] [facility] [address] [id number] [place] [address]- 9428 Aug, [facility] [place] [facility] [address] [id number] [place] [address]- 6407 Aug, [facility] [place] [facility] [address] [id number] [place] [address]- 7756 Aug, [facility] [place] [facility] [address] [id number] [place] [address]- 6888 Aug, [facility] [place] [facility] [address] [id number] [place] [address]- 0416 Aug, [facility] [place] [facility] [address] [id number] [place] [address]- 5702 Aug, [facility] [place] [facility] [address] [id number] [place] [address]- 4668 July, [facility] [place] [facility] [address] [id number] [place] [address]- 3964 July, [facility] [place] [facility] [address] [id number] [place] [address]- 9740 July, [facility] [place] [facility] [address] [id number] [place] [address]- 1976 July, [facility] [place] [facility] [address] [id number] [place] [address]- 9127 July, [facility] [place] [facility] [address] [id number] [place] [address]- 6394 July, [facility] [place] [facility] [address] [id number] [place] [address]- 9018 Jun, [facility] [place] [facility] [address] [id number] [place] [address]- 5854 Jun, [facility] [place] [facility] [address] [id number] [place] [address]- 7578 Jun, [facility] [place] [facility] [address] [id number] [place] [address]- 6292 Jun, [facility] [place] [facility] [address] [id number] [place] [address]- 4423 Jun, [facility] [place] [facility] [address] [id number] [place] [address]- 2973 Jun, [facility] [place] [facility] [address] [id number] [place] [address]- 8887 Jun, [facility] [place] [facility] [address] [id number] [place] [address]- 4845 Jun, [facility] [place] [facility] [address] [id number] [place] [address]- 1476 Jun, [facility] [place] [facility] [address] [id number] [place] [address]- 1245 Jun, [facility] [place] [facility] [address] [id number] [place] [address]- 2533 Jun, [facility] [place] [facility] [address] [id number] [place] [address]- 0056 Jun, [facility] [place] [facility] [address] [id number] [place] [address]- 8877 Jun, [facility] [place] [facility] [address] [id number] [place] [address]- 5582 Jun, [facility] [place] [facility] [address] [id number] [place] [address]- 9050 Jun, [facility] [place] [facility] [address] [id number] [place] [address]- 6206 May, [facility] [place] [facility] [address] [id number] [place] [address]- 4716 May, [facility] [place] [facility] [address] [id number] [place] [address]- 8579 May, [facility] [place] [facility] [address] [id number] [place] [address]- 2007 May, [facility] [place] [facility] [address] [id number] [place] [address]- 0994 May, [facility] [place] [facility] [address] [id number] [place] [address]- 9274 May, [facility] [place] [facility] [address] [id number] [place] [address]- 5097 May, [facility] [place] [facility] [address] [id number] [place] [address]- 8672 May, [facility] [place] [facility] [address] [id number] [place] [address]- 9604 May, [facility] [place] [facility] [address] [id number] [place] [address]- 6062 May, [facility] [place] [facility] [address] [id number] [place] [address]- 8589 May, [facility] [place] [facility] [address] [id number] [place] [address]- 2780 May, [facility] [place] [facility] [address] [id number] [place] [address]- 3040 May, [facility] [place] [facility] [address] [id number] [place] [address]- 8913 May, [facility] [place] [facility] [address] [id number] [place] [address]- 9510 May, [facility] [place] [facility] [address] [id number] [place] [address]- 1655 May, [facility] [place] [facility] [address] [id number] [place] [address]- 2275 May, [facility] [place] [facility] [address] [id number] [place] 0678 Apr, [facility] [place] [facility] [address] [id number] [place] [address]- 0526 Apr, [facility] [place] [facility] [address] [id number] [place] [address]- 4644 Apr, [facility] [place] [facility] [address] [id number] [place] [address]- 9873 Apr, [facility] [place] [facility] [address] [id number] [place] [address]- 4379 Apr, [facility] [place] [facility] [address] [id number] [place] [address]- 3257 Apr, [facility] [place] [facility] [address] [id number] [place] [address]- 9389 Apr, [facility] [place] [facility] [address] [id number] [place] [address]- 0633 Apr, [facility] [place] [facility] [address] [id number] [place] [address]- 8296 Apr, [facility] [place] [facility] [address] [id number] [place] [address]- 6437 Apr, [facility] [place] [facility] [address] [id number] [place] [address]- 5571 Apr, [facility] [place] [facility] [address] [id number] [place] [address]- 1797 Apr, [facility] [place] [facility] [address] [id number] [place] [address]- 8665 Apr, [facility] [place] [facility] [address] [id number] [place] [address]- 5137 Apr, [facility] [place] [facility] [address] [id number] [place] [address]- 3369 Apr, [facility] [place] [facility] [address] [id number] [place] [address]- 0662 Apr, [facility] [place] [facility] [address] [id number] [place] [address]- 9606 Mar, [facility] [place] [facility] [address] [id number] [place] [address]- 1200 Mar, [facility] [place] [facility] [address] [id number] [place] [address]- 7913 30 Mar, 2012 [facility] [address] [id number] [place] [address]- 2306 30 Mar, 2013 [facility] [address] [id number] [place] [address]- 4666 18 Mar, 2013 [facility] [address] [id number] [place] [address]- 8763 18 Mar, 2013 [facility] [address] [id number] [place] [address]- 5431 18 Mar, 2013 [facility] [address] [id number] [place] 9051 18 Mar, 2013 [facility] [address] [id number] [place] [address]- 5426 17 Mar, 2013 [facility] [address] [id number] [place] [address]- 6699 17 Mar, 2013 [facility] [address] [id number] [place] [address]- 7963 05 Mar, 2013 [facility] [address] [id number] [place] [address]- 9264 05 Mar, 2013 [facility] [place] [facility] [address] [id number] [place] [address]- 1430 04 Mar, 2013 [facility] [address] [id number] [place] [address]- 7091 04 Mar, 2013 [facility] [place] [facility] [address] [id number] [place] [address]- 3674 04 Mar, 2013 [facility] [place] [facility] [address] [id number] [place] [address]- 5264 Mar, [facility] [place] [facility] [address] [id number] [place] [address]- 6710 02 Mar, 2013 [facility] [place] [facility] [address] [id number] [place] [address]- 6843 02 Mar, 2013 [facility] [place] [facility] [address] [id number] [place] [address] 2545 Jan, [facility] [place] [facility] [address] [id number] [place] [address]- 4650 Jan, [facility] [place] [facility] [address] [id number] [place] [address]- 2546 Jan, [facility] [place] [facility] [address] [id number] [place] [address]- 6716 Jan, [facility] [place] [facility] [address] [id number] [place] [address]- 1571 Nov, [facility] [place] [facility] [address] [id number] [place] [address]- 0081 Nov, [facility] [place] [facility] [address] [id number] [place] [address]- 5036 Nov, [facility] [place] [facility] [address] [id number] [place] [address]- 3662 Nov, [facility] [place] [facility] [address] [id number] [place] [address]- 3025 Oct, [facility] [place] [facility] [address] [id number] [place] [address]- 5372 Oct, [facility] [place] [facility] [address] [id number] [place] [address]- 3535 Oct, [facility] [place] [facility] [address] [id number] [place] [address]- 4724 Oct, [facility] [place] [facility] [address] [id number] [place] [address]- 1071 Sep, [facility] [place] [facility] [address] [id number] [place] [address]- 5927 Sep, [facility] [place] [facility] [address] [id number] [place] [address]- 2546 Sep, [facility] [place] [facility] [address] [id number] [place] 7672 Sep, [facility] [address] [id number] [place] [address]- 3733 Sep, [facility] [place] [facility] [address] [id number] [place] [address]- 1403 Sep, [facility] [place] [facility] [address] [id number] [place] [address]- 5806 Sep, [facility] [place] [facility] [address] [id number] [place] [address]- 9480 Sep, [facility] [address] [id number] [place] [address] Sep, [facility] [place] [facility] [address] [id number] [place] [address] Aug, [facility] [place] [facility] [address] [id number] [place] [address] Aug, [facility] [place] [facility] [address] [id number] [place] [address] Aug, [facility] [place] [facility] [address] [id number] [place] [address] Aug, [facility] [place] [facility] [address] [id number] [place] [address] July, [facility] [place] [facility] [address] [id number] [place] [address] July, [facility] [place] [facility] [address] [id number] [place] [address] July, [facility] [place] [facility] [address] [id number] [place] [address] July, [facility] [place] [facility] [address] [id number] [place] [address] July, [facility] [place] [facility] [address] [id number] [place] [address] July, [facility] [place] [facility] [address] [id number] [place] [address] July, [facility] [address] [id number] [place] [address] Jun, [facility] [address] [id number] [place] [address] May, [facility] [id number] [place] [address] May, [facility] [id number] [place] [address] May, [facility] [id number] [place] [address] May, [facility] [id number] [place] [address] May, [facility] [id number] [place] [address] May, [facility] [id number] [place] [address] May, [facility] [id number] [place] [address] May, IMMUNIZATIONS No Known Immunizations SOCIAL HISTORY Never Assessed REASON FOR VISIT Medication refill request PLAN OF CARE VITAL SIGNS MEDICATIONS Medication Instructions Dosage Frequency Start Date End Date Duration Status Ixyvajnjde-SZUS-Nzlutuwe 50-325-40 MG Orally 4 times a day 1 tablet as needed 6h May, 30 days Active RESULTS No Results [...]
[2017-12-18 19:56] LABS: BASOPHILS % (AUTO) 0 % (0-10); EOSINOPHILS # (AUTO) 0.3 10^3/uL (0.0-0.3); EOSINOPHILS % (AUTO) 3 % (0-10); HEMATOCRIT 31 % (35-52); HEMOGLOBIN 9.9 G/DL (11.5-16.0); LYMPHOCYTES # (AUTO) 1.2 X 10^3 (1.0-4.0); LYMPHOCYTES % (AUTO) 15 % (12-44); MEAN CORPUSCULAR HEMOGLOBIN 34 PG (25-34); MEAN CORPUSCULAR HGB CONC 32 G/DL (32-36); MEAN CORPUSCULAR VOLUME 105 FL (80-99); MEAN PLATELET VOLUME 12.8 FL (7.4-10.4); MONOCYTES # (AUTO) 0.5 X 10^3 (0.0-1.0); MONOCYTES % (AUTO) 6 % (0-12); NEUTROPHILS # (AUTO) 5.8 X 10^3 (1.8-7.8); NEUTROPHILS % (AUTO) 75 % (42-75); PLATELET COUNT 143 10^3/uL (130-400); RED BLOOD COUNT 2.93 10^6/uL (4.35-5.85); WHITE BLOOD COUNT 7.7 10^3/uL (4.3-11.0)
--- OUTSIDE RECORDS SUMMARY | 2017-12-18 19:56 | XMS REPORT ---
Author Author MCKENNA HEBERT Organization [facility] Address [address] [place] [address] Care Team Providers Care Hand Drawer In Name Role Phone MCKENNA HEBERT Unavailable PROBLEMS Type Condition ICD9-CM Code VAH09-BV Code Onset Dates Condition Status SNOMED Code Problem Neuropathy G62.9 Active 658305707 Problem Intra-dialytic hypotension I95.3 Active 239869727 Problem Amput below knee, unilat S88.119A Active 45492732 Problem Cellulitis of right lower extremity L03.115 Active 186025194 Problem Diabetes type 2, controlled E11.9 Active 41738413 Problem Renal failure N19 Active 41602182 Problem 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 Active 8679691 Problem Other chronic pain G89.29 Active 39532938 Problem Seasonal allergic rhinitis due to other allergic trigger J30.89 Active 272846314 Problem Chronic congestive heart failure, unspecified congestive heart failure type I50.9 Active 94321339 Problem Angina pectoris I20.9 Active 359871352 Problem Chronic congestive heart failure, unspecified heart failure type I50.9 Active 50269067 ALLERGIES No Information ENCOUNTERS Encounter Location Date Diagnosis [facility] [address], [place] [address] Oct, [facility] [id number] [place] [address] 42488- 2550 Sep, [facility] [id number] [place] [address] [id number] Sep, Dental examination Z01.20 and Dental caries K02.9 [facility] [id number] [place] [address] 82532- 6325 Sep, [facility] [id number] [place] [address] 59179- 6180 Sep, [place] [address], [place] [address] 4211 Sep, Other chronic pain G89.29 and Pain in right knee M25.561 [facility] [address], [place] [address] 0783 05 Sep, 2017 [facility] [id number] [place] [address] 33440- 7191 Aug, [facility] [id number] [place] [address] 17167- 7134 Aug, 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 [facility] [id number] [place] [address] 45888- 2995 Aug, [facility] [id number] [place] [address] 57340- 8547 Aug, Diabetes type 2, controlled E11.9 and Acute pain of right knee M25.561 [facility] [address], [place] [address]- 6556 Aug, [facility] [id number] [place] [address] 56838- 7958 July, [facility] [address] [place] [address] 22702- 9654 16 Jun, 2017 [facility] [address], [place] [address]- 8666 13 Jun, 2017 [facility] [address], [place] [address]- 2056 10 Jun, 2017 Diabetes type 2, controlled E11.9 [facility] [address], [place] [address] 3719 Jun, [facility] [address], [place] [address]- 8621 28 May, 2017 [facility] [address], [place] [address]- 4615 May, [facility] [address], [place] [address]- 7038 May, [facility] [id number] [place] [address] 83212- 5317 May, Chronic congestive heart failure, unspecified congestive heart failure type I50.9 [facility] [id number] [place] [address] 91449- 2423 May, Diabetes type 2, controlled E11.9 ; BMI 50.0-59.9, adult Z68.43 ; Chronic congestive heart failure, unspecified heart failure type I50.9 ; Angina pectoris I20.9 ; Seasonal allergic rhinitis due to other allergic trigger J30.89 and Renal failure N19 [facility] [place] [address] [address] May, [facility] [id number] [place] [address] 87327- 0626 May, [facility] [id number] [place] [address] 35824- 5015 May, [facility] [id number] [place] [address] 10138- 6589 May, [facility] [id number] [place] [address] 61727- 6740 May, [facility] [address] [place] [address] 60910- 8288 Apr, BMI 50.0-59.9, adult Z68.43 [facility] [id number] [place] [address] 86767- 7515 Apr, BMI 50.0-59.9, adult Z68.43 ; Post-procedural fever R50.82 and Bronchitis J40 [facility] [address] [place] [address] 94821- 8001 Apr, Chronic congestive heart failure, unspecified congestive heart failure type I50.9 [facility] [id number] [place] [address] [place] [address]- 1767 Jan, [facility] [address] [id number] [place] [address] 31134- 8057 Jan, Diabetes type 2, controlled E11.9 [facility] [address], [place] [address]- 2487 Jan, Neuropathy G62.9 [facility] [address] [facility] [id number] [place] [address] 71579- 7589 Jan, [facility] [address] [id number] [place] [address] 58461- 0717 Jan, [facility] [address] [facility] [id number] [place] [address] 63891- 2919 Jan, [facility] [id number] [place] [address] 00209- 1093 Jan, [facility] [id number] [place] [address] 97074- 1992 Jan, [facility] [address], [place] [address]- 7533 Dec, [facility] [address] [place] [address] 82413- 5999 Dec, [facility] [address], [place] [address]- 4236 Dec, Diabetes type 2, controlled E11.9 [facility] [address] [facility] [id number] [address]- 0140 Dec, [facility] [id number], [place] [address]- 5461 Dec, [facility] [address] [place] [address] 04436- 1026 Dec, Chronic congestive heart failure, unspecified congestive heart failure type I50.9 [facility] [id number], [place] [address]- 4618 Dec, [facility] [address], [place] [address]- 1380 Dec, [facility] [address], [place] [address]- 1942 Nov, Chronic congestive heart failure, unspecified congestive heart failure type I50.9 [facility] [address], [place] [address]- 0605 Nov, Chronic congestive heart failure, unspecified congestive heart failure type I50.9 [facility] [address], [place] [address]- 3890 Nov, [facility] [address], [place] [address]- 2160 Oct, [facility] [address], [place] [address]- 1676 Oct, [facility] [address], [place] [address]- 8936 Oct, Chronic congestive heart failure, unspecified congestive heart failure type I50.9 [facility] [address], [place] [address]- 2182 Oct, [facility] [address], [place] [address]- 3565 Oct, Pneumonia of both lungs due to infectious organism, unspecified part of lung J18.9 [facility] [address], [place] [address]- 9124 Oct, [facility] [id number], [place] [address]- 9746 Oct, Diabetes type 2, controlled E11.9 [facility] [address], [place] [address]- 4722 Oct, Diabetes type 2, controlled E11.9 [facility] [address], [place] [address]- 3671 Sep, [facility] [address], [place] [address]- 3959 Sep, Neuropathy G62.9 [facility] [id number] [place] [address] 33937- 8016 Aug, Intra-dialytic hypotension I95.3 [facility] [address] [place] [address] 2546 July, [facility] [id number] [place] [address] 54036- 0626 July, [facility] [id number] [place] [address] 35727- 0976 July, [facility] [id number] [place] [address] 850348- 9219 July, Amput below knee, unilat S88.119A [facility] [id number] [place] [address] 52662- 9026 May, [facility] [id number] [place] [address] 02546- 0101 May, Neuropathy G62.9 [facility] [address], [place] [address]- 6241 May, [facility] [address] 7195 May, [facility] [address], [place] [address]- 7756 May, [facility] [address], [place] [address] 254 May, [facility] [id number] [place] [address] 66197- 2256 May, Neuropathy G62.9 [facility] [address], [place] [address]- 0606 Apr, [facility] [address], [place] [address]- 4363 Apr, [facility] [address] [facility] [id number] [place] [address]- 7398 Apr, Diabetes type 2, controlled E11.9 and Renal failure N19 [facility] [address] [id number] [place] [address]3847 Apr, [facility] [address] [facility] [id number] [place] [address], [place] [address]- 9951 Apr, [facility] [address] [id number] [place] [address]- 5408 Mar, [facility] [address] [facility] [id number] [place] [address], [place] [address]- 6320 Mar, [facility] [id number] [place] [address]- 5194 Mar, [facility] [id number] [place] [address], [place] [address]- 6636 Mar, [facility] [address] [facility] [id number] [place] [address]- 5457 Mar, [facility] [address] [place] [address]- 0881 Jan, Localized edema R60.0 [facility] [id number] [place] [address]- 5049 Jan, [facility] [id number], [place] [address]- 8461 Jan, [facility] [address] [facility] [id number] [place] [address]- 8380 Jan, [facility] [address] [facility] [id number] [place] [address]- 5680 Jan, [facility] [id number] [place] [address]- 9988 Jan, [facility] [address], [place] [address]- 8369 Jan, [facility] [address] [place] [address] 64057- 1678 Dec, Diabetes type 2, controlled E11.9 and Chronic nonintractable headache, unspecified headache type R51 [facility] [address] [place] [address] 59601- 3600 Dec, [facility] [id number] [place] [address] 98723- 4615 Dec, [facility] [id number] [place] [address] 24409- 0404 Nov, [facility] [id number] [place] [address] 35448- 4803 Nov, [facility] [id number] [place] [address] 62218- 6562 Oct, [facility] [id number] [place] [address] 92894- 8266 Oct, Migraine without status migrainosus, not intractable, unspecified migraine type G43.909 [facility] [id number] [place] [address] 50609- 7755 Oct, [facility] [address] [place] [address] 22825- 0257 Sep, Amput below knee, unilat S88.119A and Neuropathy G62.9 [facility] [address] [place] [address] 81046- 5574 Sep, [facility] [address] [place] [address] 85103- 3050 Sep, [facility] [id number] [place] [address] 85016- 8125 Sep, [facility] [address] [place] [address] 80743- 9081 Aug, [facility] [address] [place] [address]- 4297 Aug, [facility] [address] [facility] [id number] [place] [address]- 3766 Aug, Diabetes type 2, controlled E11.9 [facility] [address] [facility] [id number] [place] [address] 2546 Aug, [facility] [address] [facility] [id number] [place] [address]- 1383 Jun, Diabetes type 2, controlled E11.9 and Neuropathy G62.9 [facility] [address] [facility] [id number] [place] [address]- 0791 14 Jul, 2015 [facility] [address] [facility] [id number] [place] [address]- 6610 Jun, [facility] [address] [facility] [id number] [place] [address]- 8541 Jun, [facility] [address] [facility] [id number] [place] [address]- 4237 Jun, [facility] [address] [facility] [id number] [place] [address]- 3649 May, [facility] [address] [facility] [id number] [place] [address]- 4394 May, Diabetes type 2, controlled E11.9 [facility] [address] [facility] [id number] [place] [address]- 2466 May, [facility] [address] [facility] [id number] [place] [address]- 2549 May, [facility] [address] [facility] [id number] [place] [address]- 0942 May, [facility] [address] [facility] [id number] [place] [address]- 4156 May, [facility] [address] [facility] [id number] [place] [address]- 8693 May, [facility] [address], [place] [address]- 1392 May, [facility] [address] [place] [address] 60231- 5405 May, [facility] [address], [place] [address]- 5896 May, COPD (chronic obstructive pulmonary disease) J44.9 [facility] [address], [place] [address]- 2803 May, [facility] [address] [place] [address] 11535- 4016 May, [facility] [id number] [place] [address] 55482- 4195 May, [facility] [address] [place] [address] 80440- 5958 May, [facility] [address], [place] [address]- 5709 May, [facility] [address] [place] [address] 12180- 4094 May, Renal failure N19 and Pneumonia, organism unspecified, unspecified laterality, unspecified part of lung J18.9 [facility] [address], [place] [address]- 7629 Apr, [facility] [address], [place] [address]- 2079 Apr, [facility] [address], [place] [address]- 5937 Apr, [facility] [address], [place] [address]- 9667 Apr, Diabetes mellitus 250.00 [facility] [address], [place] [address]- 9980 14 Apr, 2015 [facility] [place] [facility] [address] [id number] [place] [address]- 7087 14 Apr, 2015 [facility] [place] [facility] [address] [id number] [place] [address]- 7236 13 Apr, 2015 [facility] [place] [facility] [address] [id number] [place] [address]- 6739 07 Apr, 2015 [facility] [place] [facility] [address] [id number] [place] [address], [place] [address]- 8647 31 Mar, 2015 [facility] [place] [facility] [address] [id number] [place] [address]- 5642 28 Mar, 2015 [facility] [place] [facility] [address] [id number] [place] [address], [place] [address]- 3351 23 Mar, 2015 [facility] [place] [facility] [id number] [place] [address]- 2648 16 Mar, 2015 Renal failure N19 [facility] [place] [facility] [address] [facility] [id number] [place] [address]- 6038 14 Mar, 2015 [facility] [place] [facility] [address] [facility] [id number] [place] [address]- 5225 Mar, [facility] [place] [facility] [id number] [place] [address]- 3529 04 Mar, 2015 [facility] [place] [facility] [id number] [place] [address]- 8709 24 Jan, 2015 [facility] [place] [facility] [address] [id number], [place] [address]- 3330 18 Jan, 2015 [facility] [place] [facility] [address] [id number] [place] [address]- 0077 17 Jan, 2015 [facility] [place] [facility] [address] [id number] [place] [address]- 6820 13 Jan, 2015 [facility] [place] [facility] [address] [facility] [id number] [place] [address]- 8906 20 Dec, 2014 [facility] [place] [facility] [address] [id number], [place] [address]- 6116 Dec, [facility] [id number], [place] [address]- 2185 Dec, [facility] [id number], [place] [address]- 6553 Nov, [facility] [address], [place] [address]- 9045 Nov, [facility] [address] [place] [address] 92384- 5091 Nov, [facility] [address] [place] [address] 57361- 0526 Oct, [facility] [address], [place] [address]- 1047 Oct, [facility] [address] [place] [address] 13166- 9581 Oct, Renal failure 586 and Obesity 278.00 [facility] [address], [place] [address]- 1047 Oct, [facility] [address], [place] [address]- 5302 Oct, [facility] [address], [place] [address]- 2487 Oct, [facility] [address], [place] [address]- 7942 Sep, [facility] [address], [place] [address]- 6801 Sep, [facility] [address], [place] [address]- 1659 Sep, Diabetes mellitus 250.00 and Congestive heart failure, unspecified 428.0 [facility] [address], [place] [address]- 5354 Aug, [facility] [address] [place] [address]- 6311 Aug, [facility] [address] [id number] [place] [address]- 7108 Aug, [facility] [address] [id number] [place] [address]- 7525 July, [facility] [address] [id number] [place] [address]- 8433 July, [facility] [place] [facility] [address] [id number] [place] [address]- 6433 July, Heart murmur, systolic 785.2 [facility] [address] [id number] [place] [address]- 4839 July, [facility] [address] [id number] [place] [address]- 1152 July, [facility] [address] [id number] [place] [address] Jun, [facility] [address] [id number] [place] [address] Jun, [facility] [place] [facility] [address] [id number] [place] [address] May, [facility] [place] [facility] [address] [id number] [place] [address] 23 May, 2014 [facility] [place] [facility] [address] [id number] [place] [address] 18 May, 2014 [facility] [place] [facility] [address] [id number] [place] [address] 18 May, 2014 [facility] [place] [facility] [address] [id number] [place] [address] 16 May, 2014 [facility] [place] [facility] [address] [id number] [place] [address] 16 May, 2014 [facility] [place] [facility] [address] [id number] [place] [address] May, 2014 [facility] [place] [facility] [address] [facility] [id number] [place] [address] May, 2014 [facility] [place] [facility] [address] [facility] [id number] [place] [address] May, 2014 [facility] [place] [facility] [address] [facility] [id number] [place] [address] May, 2014 [facility] [place] [facility] [address] [facility] [id number] [place] [address] May, 2014 [facility] [place] [facility] [address] [facility] [id number] [place] [address] May, 2014 [facility] [place] [facility] [address] [facility] [id number] [place] [address] May, 2014 [facility] [place] [facility] [address] [facility] [id number] [place] [address] May, 2014 [facility] [place] [facility] [address] [facility] [id number], [place] [address] 18 May, 2014 [facility] [place] [facility] [address] [facility] [id number] [place] [address] May, 2014 [facility] [place] [facility] [address] [facility] [id number] [place] [address] May, 2014 [facility] [place] [facility] [address] [facility] [id number] [place] [address] May, 2014 [facility] [place] [facility] [address] [facility] [id number], [place] [address] May, 2014 [facility] [place] [facility] [address] [facility] [id number] [place] [address] May, 2014 [facility] [place] [facility] [address] [facility] [id number], [place] [address] 16 May, 2014 [facility] [place] [facility] [address] [facility] [id number], [place] [address] 16 May, 2014 [facility] [place] [facility] [address] [id number] [place] [address] May, [facility] [place] [facility] [address] [id number] [place] [address] May, [facility] [place] [facility] [address] [id number] [place] [address] May, [facility] [place] [facility] [address] [id number] [place] [address] 1890 May, [facility] [place] [facility] [address] [id number] [place] [address]- 4634 Apr, [facility] [place] [facility] [address] [id number] [place] [address]- 5669 Apr, [facility] [place] [facility] [address] [id number] [place] [address]- 5278 Apr, [facility] [place] [facility] [address] [id number] [place] [address]- 8796 Apr, [facility] [place] [facility] [address] [id number] [place] [address]- 9926 Apr, [facility] [place] [facility] [address] [id number] [place] [address]- 9897 Apr, [facility] [place] [facility] [address] [id number] [place] [address]- 5421 Apr, [facility] [place] [facility] [address] [id number] [place] [address]- 9856 Apr, [facility] [place] [facility] [address] [id number] [place] [address]- 1271 Mar, [facility] [place] [facility] [address] [id number] [place] [address] 4554 Mar, [facility] [place] [facility] [address] [id number] [place] [address] Mar, [facility] [place] [facility] [address] [id number] [place] [address]- 1857 Mar, [facility] [place] [facility] [address] [id number] [place] [address]- 6506 Mar, [facility] [place] [facility] [address] [id number] [place] [address]- 3096 Mar, [facility] [place] [facility] [address] [id number] [place] [address]- 8676 18 Mar, 2014 [facility] [place] [facility] [address] [id number] [place] [address]- 1270 18 Mar, 2014 [facility] [place] [facility] [address] [id number] [place] [address]- 7325 Mar, [facility] [place] [facility] [address] [id number] [place] [address]- 5952 Mar, [facility] [place] [facility] [address] [id number] [place] [address]- 6678 Mar, [facility] [place] [facility] [address] [id number] [place] [address]- 6111 Mar, [facility] [place] [facility] [address] [id number] [place] [address]- 5843 Mar, [facility] [place] [facility] [address] [id number] [place] [address]- 8603 Mar, [facility] [place] [facility] [address] [id number] [place] [address]- 9066 10 Mar, 2014 [facility] [place] [facility] [address] [id number] [place] [address]- 8648 10 Mar, 2014 [facility] [place] [facility] [address] [id number] [place] [address]- 2174 Mar, [facility] [place] [facility] [address] [id number] [place] [address]- 2624 10 Mar, 2014 [facility] [place] [facility] [address] [id number] [place] [address]- 0883 Mar, [facility] [place] [facility] [address] [id number] [place] [address]- 0400 Mar, [facility] [place] [facility] [address] [id number] [place] [address]- 3265 Mar, [facility] [place] [facility] [address] [id number] [place] [address]- 8623 Mar, [facility] [place] [facility] [address] [id number] [place] [address]- 4859 Jan, [facility] [place] [facility] [address] [id number] [place] [address]- 4931 Jan, [facility] [place] [facility] [address] [id number] [place] [address]- 7138 Jan, [facility] [place] [facility] [address] [id number] [place] [address]- 1413 Jan, [facility] [place] [facility] [address] [id number] [place] [address]- 6772 Jan, [facility] [place] [facility] [address] [id number] [place] [address]- 3522 Jan, [facility] [place] [facility] [address] [id number] [place] [address]- 9854 Jan, [facility] [place] [facility] [address] [id number] [place] [address]- 4743 Jan, [facility] [place] [facility] [address] [id number] [place] [address]- 7361 Jan, [facility] [place] [facility] [address] [id number] [place] [address]- 7324 Jan, [facility] [place] [facility] [address] [id number] [place] [address]- 0625 Jan, [facility] [place] [facility] [address] [id number] [place] [address]- 0613 Jan, [facility] [place] [facility] [address] [id number] [place] [address]- 2467 Jan, [facility] [place] [facility] [address] [id number] [place] [address]- 6860 Jan, [facility] [place] [facility] [address] [id number] [place] [address]- 3744 Jan, [facility] [place] [facility] [address] [id number] [place] [address]- 3851 Jan, [facility] [place] [facility] [address] [id number] [place] [address]- 9501 Jan, [facility] [place] [facility] [address] [id number] [place] [address]- 5685 Jan, [facility] [place] [facility] [address] [id number] [place] [address]- 1961 Jan, [facility] [place] [facility] [address] [id number] [place] [address]- 6316 Jan, [facility] [place] [facility] [address] [id number], [place] [address]- 0413 Dec, [facility] [place] [facility] [address] [id number] [place] [address]- 2224 Dec, [facility] [place] [facility] [address] [id number], [place] [address]- 4374 Dec, [facility] [place] [facility] [address] [id number], [place] [address]- 6823 Dec, [facility] [place] [facility] [address] [id number], [place] [address]- 2228 Dec, [facility] [place] [facility] [address] [id number] [place] [address]- 8564 Dec, [facility] [place] [facility] [address] [id number], [place] [address]- 8669 Dec, [facility] [place] [facility] [address] [id number], [place] [address]- 9291 Dec, [facility] [place] [facility] [address] [id number] [place] [address]- 9114 10 Dec, 2013 [facility] [place] [facility] [address] [id number] [place] [address]- 4363 08 Dec, 2013 [facility] [place] [facility] [address] [id number] [place] [address]- 5807 Dec, [facility] [place] [facility] [address] [id number] [place] [address]- 2044 Dec, [facility] [place] [facility] [address] [id number] [place] [address]- 1125 Dec, [facility] [place] [facility] [address] [id number] [place] [address]- 2842 Dec, [facility] [place] [facility] [address] [id number] [place] [address]- 6930 Dec, [facility] [place] [facility] [address] [id number] [place] [address]- 4692 22 Nov, 2013 [facility] [place] [facility] [address] [id number] [place] [address]- 5881 22 Nov, 2013 [facility] [place] [facility] [address] [id number] [place] [address] 254 19 Nov, 2013 [facility] [place] [facility] [address] [id number] [place] [address]- 2541 19 Sep, 2013 [facility] [place] [facility] [address] [id number] [place] [address] 2546 13 Nov, 2013 [facility] [place] [facility] [address] [id number] [place] [address]- 2544 13 Nov, 2013 [facility] [place] [facility] [address] [id number] [place] [address] 2547 10 Nov, 2013 [facility] [place] [facility] [address] [id number] [place] [address]- 2541 10 Nov, 2013 [facility] [place] [facility] [address] [id number] [place] [address]- 2543 08 Sep, 2013 [facility] [place] [facility] [address] [id number] [place] [address]- 5643 Nov, 2013 [facility] [place] [facility] [address] [id number] [place] [address]- 2909 Nov, [facility] [place] [facility] [address] [id number] [place] [address]- 1683 Nov, [facility] [place] [facility] [address] [id number] [place] [address]- 5431 Nov, [facility] [place] [facility] [address] [id number] [place] [address]- 0209 Oct, [facility] [place] [facility] [address] [id number] [place] [address]- 0434 Oct, [facility] [place] [facility] [address] [id number] [place] [address]- 1770 Oct, [facility] [place] [facility] [address] [id number] [place] [address]- 0148 Oct, [facility] [place] [facility] [address] [id number] [place] [address]- 4279 Oct, [facility] [place] [facility] [address] [id number] [place] [address]- 0780 Sep, [facility] [place] [facility] [address] [id number] [place] [address]- 4062 Sep, [facility] [place] [facility] [address] [id number] [place] [address]- 9781 Sep, [facility] [place] [facility] [address] [id number] [place] [address]- 0896 Sep, [facility] [place] [facility] [address] [id number] [place] [address]- 1505 Aug, [facility] [place] [facility] [address] [id number] [place] [address]- 5424 Aug, [facility] [place] [facility] [address] [id number] [place] [address]- 7208 Aug, [facility] [place] [facility] [address] [id number] [place] [address]- 3602 Aug, [facility] [place] [facility] [address] [id number] [place] [address]- 8677 Aug, [facility] [place] [facility] [address] [id number] [place] [address]- 1680 Aug, [facility] [place] [facility] [address] [id number] [place] [address]- 9677 Aug, [facility] [place] [facility] [address] [id number] [place] [address]- 9335 Aug, [facility] [place] [facility] [address] [id number] [place] [address]- 3709 Aug, [facility] [place] [facility] [address] [id number] [place] [address]- 6840 Aug, [facility] [place] [facility] [address] [id number] [place] [address]- 3708 Aug, [facility] [place] [facility] [address] [id number] [place] [address]- 8190 Aug, [facility] [place] [facility] [address] [id number] [place] [address]- 2817 Aug, [facility] [place] [facility] [address] [id number] [place] [address]- 9310 Aug, [facility] [place] [facility] [address] [id number] [place] [address]- 1725 Aug, [facility] [place] [facility] [address] [id number] [place] [address]- 1806 Aug, [facility] [place] [facility] [address] [id number] [place] [address]- 3980 Aug, [facility] [place] [facility] [address] [id number] [place] [address]- 3380 Aug, [facility] [place] [facility] [address] [id number] [place] [address]- 2319 Aug, [facility] [place] [facility] [address] [id number] [place] [address]- 8538 Aug, [facility] [place] [facility] [address] [id number] [place] [address]- 9163 Aug, [facility] [place] [facility] [address] [id number] [place] [address]- 6973 Aug, [facility] [place] [facility] [address] [id number] [place] [address]- 9461 Aug, [facility] [place] [facility] [address] [id number] [place] [address]- 1337 Aug, [facility] [place] [facility] [address] [id number] [place] [address]- 0590 July, [facility] [place] [facility] [address] [id number] [place] [address]- 2740 July, [facility] [place] [facility] [address] [id number] [place] [address]- 6022 July, [facility] [place] [facility] [address] [id number] [place] [address]- 7497 July, [facility] [place] [facility] [address] [id number] [place] [address]- 0610 July, [facility] [place] [facility] [address] [id number] [place] [address]- 3094 July, [facility] [place] [facility] [address] [id number] [place] [address]- 7601 Jun, [facility] [place] [facility] [address] [id number] [place] [address]- 0129 Jun, [facility] [place] [facility] [address] [id number] [place] [address]- 3217 Jun, [facility] [place] [facility] [address] [id number] [place] [address]- 0272 Jun, [facility] [place] [facility] [address] [id number] [place] [address]- 9844 Jun, [facility] [place] [facility] [address] [id number] [place] [address]- 3042 Jun, [facility] [place] [facility] [address] [id number] [place] [address]- 7880 Jun, [facility] [place] [facility] [address] [id number] [place] [address]- 0195 Jun, [facility] [place] [facility] [address] [id number] [place] [address]- 7944 Jun, [facility] [place] [facility] [address] [id number] [place] [address]- 8785 Jun, [facility] [place] [facility] [address] [id number] [place] [address]- 4854 Jun, [facility] [place] [facility] [address] [id number] [place] [address]- 1745 Jun, [facility] [place] [facility] [address] [id number] [place] [address]- 4631 Jun, [facility] [place] [facility] [address] [id number] [place] [address]- 5474 Jun, [facility] [place] [facility] [address] [id number] [place] [address]- 7644 Jun, [facility] [place] [facility] [address] [id number] [place] [address]- 6434 May, [facility] [place] [facility] [address] [id number] [place] [address]- 0333 May, [facility] [place] [facility] [address] [id number] [place] [address]- 5031 May, [facility] [place] [facility] [address] [id number] [place] [address]- 4284 May, [facility] [place] [facility] [address] [id number] [place] [address]- 1111 May, [facility] [place] [facility] [address] [id number] [place] [address]- 3973 May, [facility] [place] [facility] [address] [id number] [place] [address]- 3247 May, [facility] [place] [facility] [address] [id number] [place] [address]- 7588 May, [facility] [place] [facility] [address] [id number] [place] [address]- 2692 May, [facility] [place] [facility] [address] [id number] [place] [address]- 3031 May, [facility] [place] [facility] [address] [id number] [place] [address]- 5903 May, [facility] [place] [facility] [address] [id number] [place] [address]- 6304 May, [facility] [place] [facility] [address] [id number] [place] [address]- 6442 May, [facility] [place] [facility] [address] [id number] [place] [address]- 2352 May, [facility] [place] [facility] [address] [id number] [place] [address]- 5367 May, [facility] [place] [facility] [address] [id number] [place] [address]- 1295 May, [facility] [place] [facility] [address] [id number] [place] [address]- 0133 May, [facility] [place] [facility] [address] [id number] [place] 9869 Apr, [facility] [place] [facility] [address] [id number] [place] [address]- 6552 Apr, [facility] [place] [facility] [address] [id number] [place] [address]- 9817 Apr, [facility] [place] [facility] [address] [id number] [place] [address]- 8063 Apr, [facility] [place] [facility] [address] [id number] [place] [address]- 8285 Apr, [facility] [place] [facility] [address] [id number] [place] [address]- 7375 Apr, [facility] [place] [facility] [address] [id number] [place] [address]- 9397 Apr, [facility] [place] [facility] [address] [id number] [place] [address]- 8162 Apr, [facility] [place] [facility] [address] [id number] [place] [address]- 2257 Apr, [facility] [place] [facility] [address] [id number] [place] [address]- 2920 Apr, [facility] [place] [facility] [address] [id number] [place] [address]- 2581 Apr, [facility] [place] [facility] [address] [id number] [place] [address]- 8101 Apr, [facility] [place] [facility] [address] [id number] [place] [address]- 4542 Apr, [facility] [place] [facility] [address] [id number] [place] [address]- 4857 Apr, [facility] [place] [facility] [address] [id number] [place] [address]- 2610 Apr, [facility] [place] [facility] [address] [id number] [place] [address]- 8932 Apr, [facility] [place] [facility] [address] [id number] [place] [address]- 3986 Mar, [facility] [place] [facility] [address] [id number] [place] [address]- 5885 Mar, [facility] [place] [facility] [address] [id number], [place] [address]- 1033 30 Mar, 2012 [facility] [address] [id number] [place] [address]- 9106 30 Mar, 2013 [facility] [address] [id number] [place] [address]- 8276 18 Mar, 2013 [facility] [address] [id number] [place] [address]- 9996 18 Mar, 2013 [facility] [address] [id number] [place] [address]- 2529 18 Mar, 2013 [facility] [address] [id number] [place] 8793 18 Mar, 2013 [facility] [address] [id number] [place] [address]- 1662 17 Mar, 2013 [facility] [address] [id number] [place] [address]- 4724 17 Mar, 2013 [facility] [address] [id number] [place] [address]- 0997 05 Mar, 2013 [facility] [address] [id number] [place] [address]- 8016 05 Mar, 2013 [facility] [place] [facility] [address] [id number] [place] [address]- 7040 04 Mar, 2013 [facility] [address] [id number], [place] [address]- 3929 04 Mar, 2013 [facility] [place] [facility] [address] [id number], [place] [address]- 0588 04 Mar, 2013 [facility] [place] [facility] [address] [id number], [place] [address]- 3838 Mar, [facility] [place] [facility] [address] [id number] [place] [address]- 1995 02 Mar, 2013 [facility] [place] [facility] [address] [id number] [place] [address]- 5685 02 Mar, 2013 [facility] [place] [facility] [address] [id number] [place] [address] 2541 Jan, [facility] [place] [facility] [address] [id number] [place] [address]- 9589 Jan, [facility] [place] [facility] [address] [id number] [place] [address]- 2546 Jan, [facility] [place] [facility] [address] [id number] [place] [address]- 3783 Jan, [facility] [place] [facility] [address] [id number] [place] [address]- 2952 Nov, [facility] [place] [facility] [address] [id number] [place] [address]- 8989 Nov, [facility] [place] [facility] [address] [id number] [place] [address]- 8053 Nov, [facility] [place] [facility] [address] [id number] [place] [address]- 0613 Nov, [facility] [place] [facility] [address] [id number] [place] [address]- 4189 Oct, [facility] [place] [facility] [address] [id number] [place] [address] Oct, [facility] [place] [facility] [address] [id number] [place] [address] Oct, [facility] [place] [facility] [address] [id number] [place] [address] Oct, [facility] [place] [facility] [address] [id number] [place] [address] Sep, [facility] [place] [facility] [address] [id number] [place] [address] Sep, [facility] [place] [facility] [address] [id number] [place] [address] Sep, [facility] [place] [facility] [address] [id number] [place] [address] [address] Sep, [facility] [address] [id number] [place] [address] Sep, [facility] [place] [facility] [address] [id number] [place] [address] Sep, [facility] [place] [facility] [address] [id number] [place] [address] Sep, [facility] [place] [facility] [address] [id number] [place] [address] Sep, [facility] [address] [id number] [place] [address] Sep, [facility] [place] [facility] [address] [id number] [place] [address] Aug, [facility] [place] [facility] [address] [id number] [place] [address] Aug, [facility] [place] [facility] [address] [id number] [place] [address] Aug, [facility] [place] [facility] [address] [id number] [place] [address] Aug, [facility] [place] [facility] [address] [id number] [place] [address] July, [facility] [place] [facility] [address] [id number] [place] [address] July, [facility] [place] [facility] [address] [id number] [place] [address] July, [facility] [place] [facility] [address] [id number] [place] [address] July, [facility] [place] [facility] [address] [id number] [place] [address] July, [facility] [place] [facility] [address] [id number] [place] [address] July, [facility] [place] [facility] [address] [id number], [place] [address] July, [facility] [address] [id number] [address] Jun, [facility] [address] [id number], [place] [address] May, [facility] [id number], [place] [address] May, [facility] [id number], [place] [address] May, [facility] [id number], [place] [address] May, [facility] [id number], [place] [address] May, [facility] [id number], [place] [address] May, [facility] [address] [id number], [place] [address] May, [facility] [id number], [place] [address] May, IMMUNIZATIONS No Known Immunizations SOCIAL HISTORY Never Assessed REASON FOR VISIT requesting a sooner appointment PLAN OF CARE VITAL SIGNS MEDICATIONS Unknown [...]
--- OUTSIDE RECORDS SUMMARY | 2017-12-18 19:57 | XMS REPORT ---
Author Author MCKENNA HEBERT Organization [facility] Address [address] [place] [address] Care Team Providers Care Assembler Movement Name Role Phone MCKENNA HEBERT Unavailable PROBLEMS Type Condition ICD9-CM Code OCM58-NN Code Onset Dates Condition Status SNOMED Code Problem Neuropathy G62.9 Active 998567878 Problem Intra-dialytic hypotension I95.3 Active 259558248 Problem Amput below knee, unilat S88.119A Active 21519105 Problem Cellulitis of right lower extremity L03.115 Active 219584378 Problem Diabetes type 2, controlled E11.9 Active 85267735 Problem Renal failure N19 Active 90910763 Problem 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 Active 3262577 Problem Other chronic pain G89.29 Active 64383413 Problem Seasonal allergic rhinitis due to other allergic trigger J30.89 Active 391043747 Problem Chronic congestive heart failure, unspecified congestive heart failure type I50.9 Active 66730325 Problem Angina pectoris I20.9 Active 539554477 Problem Chronic congestive heart failure, unspecified heart failure type I50.9 Active 99059410 ALLERGIES No Information ENCOUNTERS Encounter Location Date Diagnosis [facility] [id number] [place] [address] 78142- 7831 Oct, [facility] [id number] [place] [address] [id number] Sep, Dental examination Z01.20 and Dental caries K02.9 [facility] [id number] [place] [address] 22202- 6834 Sep, [facility] [id number] [place] [address] 51598- 7823 Sep, [facility] [id number] [place] [address] 67341- 1758 Sep, Other chronic pain G89.29 and Pain in right knee M25.561 [facility] [address] [facility] [id number] [place] [address]- 7716 05 Sep, 2017 [facility] [address] [facility] [id number] [place] [address] 42[address] Aug, [facility] [address] [address] 8998 Aug, 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 [facility] [address] [facility] [id number] [place] [address]- 0300 15 Aug, 2017 [facility] [address] [facility] [id number] [place] [address] 15153- 3610 Aug, Diabetes type 2, controlled E11.9 and Acute pain of right knee M25.561 [facility] [id number] [address]- 4800 09 Aug, 2017 [facility] [id number] [address]- 9169 July, [facility] [address] [id number] [address]- 9890 16 Jun, 2017 [facility] [address] [address]- 4789 13 Jun, 2017 [facility] [address] [address]- 5263 10 Jun, 2017 Diabetes type 2, controlled E11.9 [facility] [address] [facility] [id number] [place] [address]- 4926 Jun, [facility] [address] [facility] [id number] [place] [address]- 8277 May, [facility] [address] [facility] [id number] [place] 7378 May, [facility] [address] [address]- 3471 May, [facility] [address] [address]- 4929 May, Chronic congestive heart failure, unspecified congestive heart failure type I50.9 [facility] [id number] [place] [address] 66637- 5741 May, Diabetes type 2, controlled E11.9 ; BMI 50.0-59.9, adult Z68.43 ; Chronic congestive heart failure, unspecified heart failure type I50.9 ; Angina pectoris I20.9 ; Seasonal allergic rhinitis due to other allergic trigger J30.89 and Renal failure N19 [facility] [address] [id number] May, [facility] [id number] [place] [address] 50004- 1588 May, [facility] [id number] [place] [address] 46201- 0281 May, [facility] [id number] [place] [address] 57732- 9001 May, [facility] [id number] [place] [address] 33674- 7083 May, [facility] [id number] [place] [address] 55343- 0389 Apr, BMI 50.0-59.9, adult Z68.43 [facility] [id number] [place] [address] 09690- 2617 Apr, BMI 50.0-59.9, adult Z68.43 ; Post-procedural fever R50.82 and Bronchitis J40 [facility] [id number] [place] [address] 91352- 4473 Apr, Chronic congestive heart failure, unspecified congestive heart failure type I50.9 [facility] [address] [place] [address] 01234- 2442 Jan, [facility] [id number] [place] [address] [place] [address]- 0102 Jan, Diabetes type 2, controlled E11.9 [facility] [address] [facility] [id number] [place] [address] 33888- 2521 Jan, Neuropathy G62.9 [facility] [address] [facility] [id number] [place] [address]- 0724 Jan, [facility] [address] [facility] [id number] [place] [address] 14249- 2731 Jan, [facility] [id number] [place] [address] 73721- 5591 Jan, [facility] [id number] [place] [address] 78843- 5906 Jan, [facility] [id number] [place] [address] 73883- 8159 Jan, [facility] [id number] [place] [address] 46558- 7688 Dec, [facility] [address] [id number] [address]- 5065 Dec, [facility] [address] [place] [address] 10198- 1887 Dec, Diabetes type 2, controlled E11.9 [facility] [address] [facility] [id number] [place] [address]- 5351 Dec, [facility] [address] [id number] [address]- 8114 Dec, [facility] [address] [id number] [address]- 5368 Dec, Chronic congestive heart failure, unspecified congestive heart failure type I50.9 [facility] [address] [facility] [id number] [place] [address]- 0574 Dec, [facility] [address] [id number] [address]- 3861 Dec, [facility] [address] [facility] [id number] [place] [address]- 3120 Nov, Chronic congestive heart failure, unspecified congestive heart failure type I50.9 [facility] [address] [facility] [id number] [place] [address]- 1047 Nov, Chronic congestive heart failure, unspecified congestive heart failure type I50.9 [facility] [address] [address]- 6392 Nov, [facility] [address] [facility] [id number] [place] [address]- 2536 Oct, [facility] [address] [address]- 9708 Oct, [facility] [address] [address]- 5176 Oct, Chronic congestive heart failure, unspecified congestive heart failure type I50.9 [facility] [address] [address]- 3797 Oct, [facility] [address] [address]- 4426 Oct, Pneumonia of both lungs due to infectious organism, unspecified part of lung J18.9 [facility] [address] [address]- 4813 Oct, [facility] [address] [address]- 8446 Oct, Diabetes type 2, controlled E11.9 [facility] [address] [address]- 1566 Oct, Diabetes type 2, controlled E11.9 [facility] [address] [address]- 0198 Sep, [facility] [address] [address]- 4617 Sep, Neuropathy G62.9 [facility] [address] [address]- 4464 Aug, Intra-dialytic hypotension I95.3 [facility] [address] [id number] [address]- 7086 July, [facility] [address] [id number] [address]- 0046 July, [facility] [id number] [place] [address] 37244- 4685 July, [facility] [id number] [place] [address] 28404- 0272 July, Amput below knee, unilat S88.119A [facility] [address] [id number] [address]- 3626 May, [facility] [id number] [place] [address] 61147- 4362 May, Neuropathy G62.9 [facility] [address] [address]- 1397 May, [facility] [id number] [place] [address] 80791- 5885 May, [facility] [address] [address]- 8721 May, [facility] [address] [id number] [address]- 8129 May, [facility] [address] [address]- 4910 May, Neuropathy G62.9 [facility] [address] [address]- 7316 Apr, [facility] [address] 8667 Apr, [facility] [address] [id number] [address]- 1465 Apr, Diabetes type 2, controlled E11.9 and Renal failure N19 [facility] [id number] [place] [address], [place] [address] -0346 Apr, [facility] [address] [id number] [address]- 8955 Apr, [facility] [id number] [place] [address], [place] [address]- 3600 Mar, [facility] [address] [facility] [id number] [place] [address], [place] [address]- 5327 Mar, [facility] [id number] [place] [address], [place] [address]- 4476 Mar, [facility] [id number] [place] [address], [place] [address]- 2725 Mar, [facility] [id number] [place] [address], [place] [address]- 7986 Mar, [facility] [id number] [place] [address], [place] [address]- 7407 Jan, Localized edema R60.0 [facility] [address] [place] [address], [place] [address]- 5203 Jan, [facility] [address] [address]- 3532 Jan, [facility] [address] [address]- 9962 Jan, [facility] [address] [address]- 8279 Jan, [facility] [address]100[facility] [address]- 6354 Jan, [facility] [address] [address]- 7414 Jan, [facility] [address] [address]- 8498 Dec, Diabetes type 2, controlled E11.9 and Chronic nonintractable headache, unspecified headache type R51 [facility] [id number] [place] [address] 49392- 8025 Dec, [facility] [id number] [place] [address] 20511- 7849 Dec, [facility] [id number] [place] [address] 58665- 6280 Nov, [facility] [id number] [place] [address] 44792- 5680 Nov, [facility] [id number] [place] [address] 13362- 7905 Oct, [facility] [id number] [place] [address] 27097- 8395 Oct, Migraine without status migrainosus, not intractable, unspecified migraine type G43.909 [facility] [id number] [place] [address] 50608- 5433 Oct, [facility] [id number] [place] [address] 44424- 5793 Sep, Amput below knee, unilat S88.119A and Neuropathy G62.9 [facility] [address] [address]- 9552 Sep, [facility] [address] [place] [address] 89532- 9877 Sep, [facility] [address] [place] [address] 10889- 6287 Sep, [facility] [id number] [place] [address] 20137- 4042 Aug, [facility] [address] [address]- 4439 Aug, [facility] [address] [id number] [address]- 2248 17 Aug, 2015 Diabetes type 2, controlled E11.9 [facility] [address] [facility] [id number] [place] [address]- 3403 Aug, [facility] [address] [facility] [id number] [place] [address]- 3925 Jun, Diabetes type 2, controlled E11.9 and Neuropathy G62.9 [facility] [address] [facility] [id number] [place] [address]- 5075 14 Jul, 2015 [facility] [address] [facility] [id number] [place] [address]- 3525 Jun, [facility] [address] [facility] [id number] [place] [address]- 2228 Jun, [facility] [address] [facility] [id number] [place] [address]- 1907 Jun, [facility] [address] [facility] [id number] [place] [address]- 4627 May, [facility] [address] [facility] [id number] [place] [address]- 7988 May, Diabetes type 2, controlled E11.9 [facility] [address] [facility] [id number] [place] [address]- 9462 May, [facility] [address] [id number] [address]- 2956 May, [facility] [address] [facility] [id number] [place] [address]- 0491 May, [facility] [address] [facility] [id number] [place] [address]- 2109 May, [facility] [address] [facility] [id number] [place] [address]- 1706 May, [facility] [address] [facility] [id number] [place] [address]- 2595 May, [facility] [address] [address]- 6984 16 May, 2015 [facility] [address] [address]- 8509 May, COPD (chronic obstructive pulmonary disease) J44.9 [facility] [address] [address]- 3553 15 May, 2015 [facility] [address] [address]- 0510 May, [facility] [address] [place] [address] 54777- 7338 May, [facility] [address] [address]- 1003 May, [facility] [address] [address]- 4664 May, [facility] [address] [address]- 5818 May, Renal failure N19 and Pneumonia, organism unspecified, unspecified laterality, unspecified part of lung J18.9 [facility] [id number] [address]- 2409 Apr, [facility] [address] [address]- 9940 Apr, [facility] [address] [address]- 2861 Apr, [facility] [address] [address]- 1959 Apr, Diabetes mellitus 250.00 [facility] [address] [address]- 4988 Apr, [facility] [address] [address]- 6172 Apr, [facility] [place] [facility] [address] [id number] [place] [address]- 6430 13 Apr, 2015 [facility] [place] [facility] [address] [id number] [place] [address]- 2257 Apr, [facility] [place] [facility] [address] [id number] [place] [address]- 5972 31 Mar, 2015 [facility] [place] [facility] [id number] [place] [address], [place] [address]- 6665 28 Mar, 2015 [facility] [place] [facility] [address] [id number] [place] [address]- 2590 23 Mar, 2015 [facility] [place] [facility] [id number] [place] [address], [place] [address]- 5968 16 Mar, 2015 Renal failure N19 [facility] [place] [facility] [address] [id number] [place] [address]- 1872 14 Mar, 2015 [facility] [place] [facility] [id number] [place] [address], [place] [address]- 7926 Mar, [facility] [place] [facility] [address] [id number] [place] [address]- 9976 Mar, [facility] [place] [facility] [address] [facility] [id number] [place] [address]- 2477 24 Jan, 2015 [facility] [place] [facility] [address] [facility] [id number] [place] [address]- 7759 18 Jan, 2015 [facility] [place] [facility] [address] [id number] [place] [address]- 9303 17 Jan, 2015 [facility] [place] [facility] [address] [id number] [place] [address]- 0826 13 Jan, 2015 [facility] [place] [facility] [address] [id number] [place] [address]- 7916 20 Dec, 2014 [facility] [place] [facility] [address] [facility] [id number] [place]- 1675 19 Dec, 2014 [facility] [place] [facility] [address] [id number] [place] [address]- 5858 Dec, [facility] [address] [address]- 5720 Nov, [facility] [address] [address]- 4246 Nov, [facility] [address] [address]- 7741 Nov, [facility] [id number] [place] [address] 54033- 7355 Oct, [facility] [address] [place] [address] 56802- 5329 Oct, [facility] [id number] [address]- 1376 Oct, Renal failure 586 and Obesity 278.00 [facility] [id number] [place] [address] 97276- 2728 Oct, [facility] [address] [address]- 9888 Oct, [facility] [address] [address]- 4197 Oct, [facility] [address] [address]- 9164 Sep, [facility] [address] [address]- 4965 Sep, [facility] [id number] [address]- 2745 Sep, Diabetes mellitus 250.00 and Congestive heart failure, unspecified 428.0 [facility] [address] [address]- 2814 Aug, [facility] [address] [address]- 7258 Aug, [facility] [address] [address]- 5895 Aug, [facility] [address] [id number] [place] [address]- 0721 July, [facility] [place] [facility] [address] [id number] [place] [address]- 7235 July, [facility] [address] [id number] [place] [address]- 5344 July, Heart murmur, systolic 785.2 [facility] [address] [id number] [place] [address]- 0775 July, [facility] [address] [id number] [place] [address]- 0045 July, [facility] [address] [id number] [place] [address]- 0252 Jun, [facility] [place] [facility] [address] [id number] [place] [address]- 3259 Jun, [facility] [place] [facility] [address] [id number] [place] [address]- 6785 May, [facility] [place] [facility] [address] [id number] [place] [address]- 6405 23 May, 2014 [facility] [place] [facility] [address] [id number] [place] [address]- 0067 18 May, 2014 [facility] [place] [facility] [address] [id number] [place] [address]- 8513 18 May, 2014 [facility] [place] [facility] [address] [id number] [place] [address]- 3362 16 May, 2014 [facility] [place] [facility] [address] [id number] [place] [address] 16 May, 2014 [facility] [place] [facility] [address] [id number] [place] [address] 10 May, 2014 [facility] [place] [facility] [address] [id number] [place] [address] May, 2014 [facility] [place] [facility] [address] [facility] [id number] [place] [address] May, 2014 [facility] [place] [facility] [address] [facility] [id number] [place] [address] May, 2014 [facility] [place] [facility] [address] [facility] [id number] [place] [address] May, 2014 [facility] [place] [facility] [address] [facility] [id number] [place] [address] May, 2014 [facility] [place] [facility] [address] [facility] [id number] [place] [address] May, 2014 [facility] [place] [facility] [address] [facility] [id number] [place] [address] May, 2014 [facility] [place] [facility] [address] [id number] [address] May, 2014 [facility] [place] [facility] [address] [facility] [id number] [place] [address] May, 2014 [facility] [place] [facility] [address] [facility] [id number] [place] [address] May, 2014 [facility] [place] [facility] [address] [facility] [id number] [place] [address] May, 2014 [facility] [place] [facility] [address] [id number] [address] May, 2014 [facility] [place] [facility] [address] [facility] [id number] [place] [address] 18 May, 2014 [facility] [place] [facility] [address] [facility] [id number] [place] [address] 16 May, 2014 [facility] [place] [facility] [address] [facility] [id number] [place] [address] 16 May, 2014 [facility] [place] [facility] [address] [facility] [id number] [place] [address] May, [facility] [place] [facility] [address] [id number] [place] [address] May, [facility] [place] [facility] [address] [id number] [place] [address] May, [facility] [place] [facility] [address] [id number] [place] [address] May, [facility] [place] [facility] [address] [id number] [place] [address] Apr, [facility] [place] [facility] [address] [id number] [place] [address] Apr, [facility] [place] [facility] [address] [id number] [place] [address] 1616 Apr, [facility] [place] [facility] [address] [id number] [place] [address] 0227 Apr, [facility] [place] [facility] [address] [id number] [place] [address] 5[address] Apr, [facility] [place] [facility] [address] [id number] [place] [address]- 0228 Apr, [facility] [place] [facility] [address] [id number] [place] [address]- 7645 Apr, [facility] [place] [facility] [address] [id number] [place] [address]- 6614 Apr, [facility] [place] [facility] [address] [id number] [place] [address]- 5231 Mar, [facility] [place] [facility] [address] [id number] [place] [address]- 5285 Mar, [facility] [place] [facility] [address] [id number] [place] [address]- 6841 Mar, [facility] [place] [facility] [address] [id number] [place] [address] Mar, [facility] [place] [facility] [address] [id number] [place] [address]- 9175 Mar, [facility] [place] [facility] [address] [id number] [place] [address]- 0976 Mar, [facility] [place] [facility] [address] [id number] [place] [address]- 2506 18 Mar, 2014 [facility] [place] [facility] [address] [id number] [place] [address]- 3636 Mar, [facility] [place] [facility] [address] [id number] [place] [address]- 8875 11 Mar, 2014 [facility] [place] [facility] [address] [id number] [place] [address]- 4385 Mar, [facility] [place] [facility] [address] [id number] [place] [address]- 7683 Mar, [facility] [place] [facility] [address] [id number] [place] [address]- 9796 Mar, [facility] [place] [facility] [address] [id number] [place] [address]- 2105 Mar, [facility] [place] [facility] [address] [id number] [place] [address]- 0916 Mar, [facility] [place] [facility] [address] [id number] [place] [address]- 8240 Mar, [facility] [place] [facility] [address] [id number] [place] [address]- 4371 Mar, [facility] [place] [facility] [address] [id number] [place] [address]- 2820 Mar, [facility] [place] [facility] [address] [id number] [place] [address]- 6903 Mar, [facility] [place] [facility] [address] [id number] [place] [address]- 9826 Mar, [facility] [place] [facility] [address] [id number] [place] [address]- 0159 Mar, [facility] [place] [facility] [address] [id number] [place] [address]- 9733 Mar, [facility] [place] [facility] [address] [id number] [place] [address]- 1088 Mar, [facility] [place] [facility] [address] [id number] [place] [address]- 9831 Jan, [facility] [place] [facility] [address] [id number] [place] [address]- 1779 Jan, [facility] [place] [facility] [address] [id number] [place] [address]- 5239 Jan, [facility] [place] [facility] [address] [id number] [place] [address]- 4066 Jan, [facility] [place] [facility] [address] [id number] [place] [address]- 9917 Jan, [facility] [place] [facility] [address] [id number] [place] [address]- 0281 Jan, [facility] [place] [facility] [address] [id number] [place] [address]- 4238 Jan, [facility] [place] [facility] [address] [id number] [place] [address]- 4024 Jan, [facility] [place] [facility] [address] [id number] [place] [address]- 9279 Jan, [facility] [place] [facility] [address] [id number] [place] [address]- 4420 Jan, [facility] [place] [facility] [address] [id number] [place] [address]- 7023 Jan, [facility] [place] [facility] [address] [id number] [place] [address]- 6141 Jan, [facility] [place] [facility] [address] [id number] [place] [address]- 0816 Jan, [facility] [place] [facility] [address] [id number] [place] [address]- 5083 Jan, [facility] [place] [facility] [address] [id number] [place] [address]- 3361 Jan, [facility] [place] [facility] [address] [id number] [place] [address]- 1713 Jan, [facility] [place] [facility] [address] [id number] [place] [address]- 9522 Jan, [facility] [place] [facility] [address] [id number] [place] [address]- 8672 Jan, [facility] [place] [facility] [address] [id number] [place] [address]- 4719 Jan, [facility] [place] [facility] [address] [id number] [place] [address]- 2318 Jan, [facility] [place] [facility] [address] [id number] [place] [address]- 0058 Dec, [facility] [place] [facility] [address] [id number] [place] [address]- 2920 Dec, [facility] [place] [facility] [address] [id number] [place] [address]- 4172 Dec, [facility] [place] [facility] [address] [id number] [place] [address]- 0970 Dec, [facility] [place] [facility] [address] [id number] [place] [address]- 0587 Dec, [facility] [place] [facility] [address] [id number] [place] [address]- 0152 14 Dec, 2013 [facility] [place] [facility] [address] [id number] [place] [address]- 7104 14 Dec, 2013 [facility] [place] [facility] [address] [id number] [place] [address]- 6212 10 Dec, 2013 [facility] [place] [facility] [address] [id number] [place] [address]- 9462 10 Dec, 2013 [facility] [place] [facility] [address] [id number] [place] [address]- 1871 08 Dec, 2013 [facility] [place] [facility] [address] [id number] [place] [address]- [address] 08 Dec, 2013 [facility] [place] [facility] [address] [id number] [place] [address]- 8886 Dec, [facility] [place] [facility] [address] [id number] [place] [address]- 8811 Dec, [facility] [place] [facility] [address] [id number] [place] [address]- 3957 Dec, [facility] [place] [facility] [address] [id number] [place] [address]- 2336 Dec, [facility] [place] [facility] [address] [id number] [place] [address]- 2247 22 Nov, 2013 [facility] [place] [facility] [address] [id number] [place] [address]- 4240 22 Nov, 2013 [facility] [place] [facility] [address] [id number] [place] [address]- 2545 19 Nov, 2013 [facility] [place] [facility] [address] [id number] [place] [address] 2541 19 Nov, 2013 [facility] [place] [facility] [address] [id number] [place] [address]- 2549 13 Nov, 2013 [facility] [place] [facility] [address] [id number] [place] [address] 2546 13 Sep, 2013 [facility] [place] [facility] [address] [id number] [place] [address]- 2544 10 Sep, 2013 [facility] [place] [facility] [address] [id number] [place] [address] 2546 10 Nov, 2013 [facility] [place] [facility] [address] [id number] [place] [address]- 2549 08 Sep, 2013 [facility] [place] [facility] [address] [id number] [place] [address]- 2542 05 Sep, 2013 [facility] [place] [facility] [address] [id number] [place] [address]- 9006 Nov, 2013 [facility] [place] [facility] [address] [id number] [place] [address]- 8797 Nov, [facility] [place] [facility] [address] [id number] [place] [address]- 9142 Nov, [facility] [place] [facility] [address] [id number] [place] [address]- 2784 Oct, [facility] [place] [facility] [address] [id number] [place] [address]- 1130 Oct, [facility] [place] [facility] [address] [id number] [place] [address]- 5673 Oct, [facility] [place] [facility] [address] [id number] [place] [address]- 2176 Oct, [facility] [place] [facility] [address] [id number] [place] [address]- 6956 Oct, [facility] [place] [facility] [address] [id number] [place] [address]- 5061 Sep, [facility] [place] [facility] [address] [id number] [place] [address]- 7729 Sep, [facility] [place] [facility] [address] [id number] [place] [address]- 7514 Sep, [facility] [place] [facility] [address] [id number] [place] [address]- 3607 Sep, [facility] [place] [facility] [address] [id number] [place] [address]- 6880 Aug, [facility] [place] [facility] [address] [id number] [place] [address]- 8326 Aug, [facility] [place] [facility] [address] [id number] [place] [address]- 8625 Aug, [facility] [place] [facility] [address] [id number] [place] [address]- 0457 Aug, [facility] [place] [facility] [address] [id number] [place] [address]- 4846 Aug, [facility] [place] [facility] [address] [id number] [place] [address]- 9325 Aug, [facility] [place] [facility] [address] [id number] [place] [address]- 1990 Aug, [facility] [place] [facility] [address] [id number] [place] [address]- 0298 Aug, [facility] [place] [facility] [address] [id number] [place] [address]- 6564 Aug, [facility] [place] [facility] [address] [id number] [place] [address]- 9322 Aug, [facility] [place] [facility] [address] [id number] [place] [address]- 0815 Aug, [facility] [place] [facility] [address] [id number] [place] [address]- 7071 Aug, [facility] [place] [facility] [address] [id number] [place] [address]- 5788 Aug, [facility] [place] [facility] [address] [id number] [place] [address]- 3859 Aug, [facility] [place] [facility] [address] [id number] [place] [address]- 7160 Aug, [facility] [place] [facility] [address] [id number] [place] [address]- 5241 Aug, [facility] [place] [facility] [address] [id number] [place] [address]- 1753 Aug, [facility] [place] [facility] [address] [id number] [place] [address]- 3885 Aug, [facility] [place] [facility] [address] [id number] [place] [address]- 8545 Aug, [facility] [place] [facility] [address] [id number] [place] [address]- 9733 Aug, [facility] [place] [facility] [address] [id number] [place] [address]- 2454 Aug, [facility] [place] [facility] [address] [id number] [place] [address]- 9236 Aug, [facility] [place] [facility] [address] [id number] [place] [address]- 2145 Aug, [facility] [place] [facility] [address] [id number] [place] [address]- 3415 Aug, [facility] [place] [facility] [address] [id number] [place] [address]- 8777 July, [facility] [place] [facility] [address] [id number] [place] [address]- 7425 July, [facility] [place] [facility] [address] [id number] [place] [address]- 2649 July, [facility] [place] [facility] [address] [id number] [place] [address]- 8277 July, [facility] [place] [facility] [address] [id number] [place] [address]- 8428 July, [facility] [place] [facility] [address] [id number] [place] [address]- 9919 July, [facility] [place] [facility] [address] [id number] [place] [address]- 3875 Jun, [facility] [place] [facility] [address] [id number] [place] [address]- 7796 Jun, [facility] [place] [facility] [address] [id number] [place] [address]- 1583 Jun, [facility] [place] [facility] [address] [id number] [place] [address]- 9265 Jun, [facility] [place] [facility] [address] [id number] [place] [address]- 4069 Jun, [facility] [place] [facility] [address] [id number] [place] [address]- 7204 Jun, [facility] [place] [facility] [address] [id number] [place] [address]- 9045 Jun, [facility] [place] [facility] [address] [id number] [place] [address]- 2061 Jun, [facility] [place] [facility] [address] [id number] [place] [address]- 5590 Jun, [facility] [place] [facility] [address] [id number] [place] [address]- 3679 Jun, [facility] [place] [facility] [address] [id number] [place] [address]- 6982 Jun, [facility] [place] [facility] [address] [id number] [place] [address]- 3774 Jun, [facility] [place] [facility] [address] [id number] [place] [address]- 9096 Jun, [facility] [place] [facility] [address] [id number] [place] [address]- 1070 Jun, [facility] [place] [facility] [address] [id number] [place] [address]- 4582 Jun, [facility] [place] [facility] [address] [id number] [place] [address]- 3354 May, [facility] [place] [facility] [address] [id number] [place] [address]- 4330 May, [facility] [place] [facility] [address] [id number] [place] [address]- 2336 May, [facility] [place] [facility] [address] [id number] [place] [address]- 3279 May, [facility] [place] [facility] [address] [id number] [place] [address]- 2178 May, [facility] [place] [facility] [address] [id number] [place] [address]- 7528 May, [facility] [place] [facility] [address] [id number] [place] [address]- 6217 May, [facility] [place] [facility] [address] [id number] [place] [address]55 May, [facility] [place] [facility] [address] [id number] [place] [address]- 6882 May, [facility] [place] [facility] [address] [id number] [place] [address]- 6911 May, [facility] [place] [facility] [address] [id number] [place] [address]- 0181 May, [facility] [place] [facility] [address] [id number] [place] [address]- 9339 May, [facility] [place] [facility] [address] [id number] [place] [address]- 9929 May, [facility] [place] [facility] [address] [id number] [place] [address]- 8629 May, [facility] [place] [facility] [address] [id number] [place] [address]- 7465 May, [facility] [place] [facility] [address] [id number] [place] [address]- 1393 May, [facility] [place] [facility] [address] [id number] [place] [address]- 3844 May, [facility] [place] [facility] [address] [id number] [place] [address]- 8223 Apr, [facility] [place] [facility] [address] [id number] [place] [address]- 2339 Apr, [facility] [place] [facility] [address] [id number] [place] [address]- 4180 Apr, [facility] [place] [facility] [address] [id number] [place] [address]- 6819 Apr, [facility] [place] [facility] [address] [id number] [place] [address]- 8334 Apr, [facility] [place] [facility] [address] [id number] [place] [address]- 4038 Apr, [facility] [place] [facility] [address] [id number] [place] [address]- 7026 Apr, [facility] [place] [facility] [address] [id number] [place] [address]- 0455 Apr, [facility] [place] [facility] [address] [id number] [place] [address]- 4615 Apr, [facility] [place] [facility] [address] [id number] [place] [address]- 6769 Apr, [facility] [place] [facility] [address] [id number] [place] [address]- 0002 Apr, [facility] [place] [facility] [address] [id number] [place] [address]- 0739 Apr, [facility] [place] [facility] [address] [id number] [place] [address]- 9640 Apr, [facility] [place] [facility] [address] [id number] [place] [address]- 6957 Apr, [facility] [place] [facility] [address] [id number] [place] [address]- 3550 Apr, [facility] [place] [facility] [address] [id number] [place] [address]- 2457 Apr, [facility] [place] [facility] [address] [id number] [place] [address]- 6687 Mar, [facility] [place] [facility] [address] [id number] [place] [address]- 6241 Mar, [facility] [place] [facility] [address] [id number] [place] [address]- 1611 Mar, [facility] [place] [facility] [address] [id number] [place] [address]- 8344 30 Mar, 2012 [facility] [address] [id number] [place] [address]- 1836 18 Mar, 2013 [facility] [place] [facility] [address] [id number] [place] [address]- 0036 18 Mar, 2013 [facility] [address] [id number] [place] [address]- 7621 18 Mar, 2013 [facility] [place] [facility] [address] [id number] [place] [address]- 5251 18 Mar, 2013 [facility] [address] [id number] [place] 7644 17 Mar, 2013 [facility] [address] [id number] [place] [address]- 3609 17 Mar, 2013 [facility] [address] [id number] [place] [address]- 0162 05 Mar, 2013 [facility] [place] [facility] [address] [id number] [place] [address]- 5432 05 Mar, 2013 [facility] [address] [id number] [place] [address]- 6732 04 Mar, 2013 [facility] [place] [facility] [address] [id number] [place] [address]- 4185 04 Mar, 2013 [facility] [place] [facility] [address] [id number] [place] [address]- 8070 04 Mar, 2013 [facility] [place] [facility] [address] [id number] [place] [address]- 5819 Mar, [facility] [place] [facility] [address] [id number] [place] [address]- 3568 02 Mar, 2013 [facility] [place] [facility] [address] [id number] [place] [address]- 8320 02 Mar, 2013 [facility] [place] [facility] [address] [id number] [place] [address]- 8998 Jan, [facility] [place] [facility] [address] [id number] [place] [address]- 2545 Jan, [facility] [place] [facility] [address] [id number] [place] [address]- 9360 Jan, [facility] [place] [facility] [address] [id number] [place] [address]- 2546 Jan, [facility] [place] [facility] [address] [id number] [place] [address]- 4466 Nov, [facility] [place] [facility] [address] [id number] [place] [address]- 9578 Nov, [facility] [place] [facility] [address] [id number] [place] [address]- 0225 Nov, [facility] [place] [facility] [address] [id number] [place] [address]- 8795 Nov, [facility] [place] [facility] [address] [id number] [place] [address] Oct, [facility] [place] [facility] [address] [id number] [place] [address] Oct, [facility] [place] [facility] [address] [id number] [place] [address] Oct, [facility] [place] [facility] [address] [id number] [place] [address] Oct, [facility] [place] [facility] [address] [id number] [place] [address] Sep, [facility] [place] [facility] [address] [id number] [place] [address] Sep, [facility] [place] [facility] [address] [id number] [place] [address] Sep, [facility] [place] [facility] [address] [id number] [place] [address] Sep, [facility] [place] [facility] [address] [id number] [place] [address] Sep, [facility] [address] [id number] [place] [address] Sep, [facility] [place] [facility] [address] [id number] [place] [address] Sep, [facility] [address] [id number] [place] [address] Sep, [facility] [place] [facility] [address] [id number] [place] [address] Sep, [facility] [address] [id number] [place] [address] Aug, [facility] [place] [facility] [address] [id number] [place] [address] Aug, [facility] [address] [id number] [place] [address] Aug, [facility] [address] [id number] [place] [address] Aug, [facility] [place] [facility] [address] [id number] [place] [address] July, [facility] [place] [facility] [address] [id number] [place] [address] July, [facility] [place] [facility] [address] [id number] [place] [address] July, [facility] [place] [facility] [address] [id number] [place] [address] July, [facility] [place] [facility] [address] [id number] [place] [address] July, [facility] [place] [facility] [address] [id number] [place] [address] July, [facility] [place] [facility] [address] [id number] [place] [address] July, [facility] [place] [facility] [address] [id number] [place] [address] Jun, [facility] [address] [id number] [place] [address] May, [facility] [address] [id number] [place] [address] May, [facility] [id number] [place] [address] May, [facility] [id number] [place] [address] May, [facility] [id number] [place] [address] May, [facility] [id number] [place] [address] May, [facility] [id number] [place] [address] May, [facility] [address] [id number] [place] [address] May, IMMUNIZATIONS No Known Immunizations SOCIAL HISTORY Never Assessed REASON FOR VISIT medication refill PLAN OF CARE VITAL SIGNS MEDICATIONS Medication Instructions Dosage Frequency Start Date End Date Duration Status Gabapentin 300 MG Orally Three times a day 1 capsule 8h 30 days Active RESULTS No Results PROCEDURES [...]
--- OUTSIDE RECORDS SUMMARY | 2017-12-18 19:58 | XMS REPORT ---
Author Author MCKENNA HEBERT Organization [facility] Address [address] [place] [address] Care Team Providers Care Administrative Operations Coordinator Name Role Phone MCKENNA HEBERT Unavailable PROBLEMS Type Condition ICD9-CM Code VOI93-GV Code Onset Dates Condition Status SNOMED Code Problem Neuropathy G62.9 Active 094913745 Problem Intra-dialytic hypotension I95.3 Active 240516516 Problem Amput below knee, unilat S88.119A Active 64897067 Problem Cellulitis of right lower extremity L03.115 Active 829076195 Problem Diabetes type 2, controlled E11.9 Active 72159168 Problem Renal failure N19 Active 86698046 Problem 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 Active 1544719 Problem Other chronic pain G89.29 Active 13649305 Problem Seasonal allergic rhinitis due to other allergic trigger J30.89 Active 656827819 Problem Chronic congestive heart failure, unspecified congestive heart failure type I50.9 Active 66323278 Problem Angina pectoris I20.9 Active 705723432 Problem Chronic congestive heart failure, unspecified heart failure type I50.9 Active 67695984 ALLERGIES Substance Reaction Event Type Date Status Fluarix Unknown Drug Allergy May, Active All Tape Unknown Non Drug Allergy May, Active ENCOUNTERS Encounter Location Date Diagnosis [place] [id number] [address] Oct, [facility] [id number], [place] [address] 1707 Sep, [place] [address] [place] [address] 99370- 6676 Sep, [place] [id number] [address] 0611 Sep, Other chronic pain G89.29 and Pain in right knee M25.561 [place] [address] [facility] [id number] [place] [address]- 8984 Sep, [facility] [address] [facility] [id number] [place] [address]- 2021 Aug, [facility] [address] [facility] [id number] [place] [address]- 0299 Aug, 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 [facility] [address] [facility] [id number] [place] [address], [place] [address]- 5897 15 Aug, 2017 [facility] [address] [facility] [id number] [place] [address]- 0576 Aug, Diabetes type 2, controlled E11.9 and Acute pain of right knee M25.561 [facility] [address] [facility] [id number] [place] [address]- 6755 09 Aug, 2017 [facility] [address] [facility] [id number] [place] [address]- 9416 July, [facility] [address] [facility] [id number] [place] [address]- 2388 16 Jun, 2017 [facility] [address] [facility] [id number] [place] [address]- 2230 13 Jun, 2017 [facility] [address] [facility] [id number] [place] [address]- 6035 10 Jun, 2017 Diabetes type 2, controlled E11.9 [facility] [address] [facility] [id number] [place] [address]- 4839 Jun, [facility] [address] [facility] [id number] [place] [address]- 2000 May, [facility] [address] [facility] [id number] [place] [address]- 5820 May, [facility] [address] [facility] [id number] [place] [address]- 5858 08 May, 2017 [facility] [address] [facility] [id number] [place] [address]- 4121 May, Chronic congestive heart failure, unspecified congestive heart failure type I50.9 [facility] [address] [place] [address] 88831- 6152 May, Diabetes type 2, controlled E11.9 ; BMI 50.0-59.9, adult Z68.43 ; Chronic congestive heart failure, unspecified heart failure type I50.9 ; Angina pectoris I20.9 ; Seasonal allergic rhinitis due to other allergic trigger J30.89 and Renal failure N19 [facility] [address] [address] May, [facility] [id number] [place] [address] 05866- 3820 May, [facility] [id number] [place] [address] 78392- 1857 May, [facility] [id number] [place] [address] 85046- 9600 May, [facility] [id number] [place] [address] 23926- 3457 May, [facility] [id number] [place] [address] 90612- 3634 Apr, BMI 50.0-59.9, adult Z68.43 [facility] [id number] [place] [address] 64120- 2954 Apr, BMI 50.0-59.9, adult Z68.43 ; Post-procedural fever R50.82 and Bronchitis J40 [facility] [address] [place] [address] 64921- 1505 Apr, Chronic congestive heart failure, unspecified congestive heart failure type I50.9 [facility] [address] [place] [address] 50104- 9539 Jan, [facility] [id number] [place] [address] 39801- 5204 Jan, Diabetes type 2, controlled E11.9 [facility] [address] [facility] [id number], [place] [address]- 8065 Jan, Neuropathy G62.9 [facility] [address] [facility] [id number] [place] [address] 17344- 4971 Jan, [facility] [address] [facility] [id number], [place] [address]- 4611 Jan, [facility] [address] [facility] [id number] [place] [address] 39380- 0169 Jan, [facility] [address] [facility] [id number] [place] [address] 13880- 9595 Jan, [facility] [address] [facility] [id number] [place] [address] 77314- 4169 Jan, [facility] [address] [place] [address] 94986- 3005 Dec, [facility] [address] [facility] [id number], [place] [address]- 1172 Dec, [facility] [address] [facility] [id number] [place] [address] 03760- 7360 Dec, Diabetes type 2, controlled E11.9 [facility] [address] [facility] [id number], [place] [address]- 7922 Dec, [facility] [address] [facility] [id number], [place] [address]- 8916 Dec, [facility] [address] [facility] [id number], [place] [address]- 0664 Dec, Chronic congestive heart failure, unspecified congestive heart failure type I50.9 [facility] [address] [facility] [id number], [place] [address]- 4758 Dec, [facility] [id number], [place] [address]- 3179 Dec, [facility] [id number] [place] [address] 38756- 4817 Nov, Chronic congestive heart failure, unspecified congestive heart failure type I50.9 [facility] [address], [place] [address]- 3541 Nov, Chronic congestive heart failure, unspecified congestive heart failure type I50.9 [facility] [address], [place] [address]- 6772 Nov, [facility] [address], [place] [address]- 1313 Oct, [facility] [address] [place] [address] 96087- 2316 Oct, [facility] [id number] [place] [address] 49195- 8333 Oct, Chronic congestive heart failure, unspecified congestive heart failure type I50.9 [facility] [address], [place] [address]- 4145 Oct, [facility] [address], [place] [address]- 8651 Oct, Pneumonia of both lungs due to infectious organism, unspecified part of lung J18.9 [facility] [address], [place] [address]- 7078 Oct, [facility] [address], [place] [address]- 9842 Oct, Diabetes type 2, controlled E11.9 [facility] [id number], [place] [address]- 1509 Oct, Diabetes type 2, controlled E11.9 [facility] [address], [place] [address]- 1186 Sep, [facility] [address], [place] [address]- 4682 Sep, Neuropathy G62.9 [facility] [address] [place] [address] 00441- 8287 Aug, Intra-dialytic hypotension I95.3 [facility] [id number] [place] [address] 81547- 6416 July, [facility] [id number] [place] [address] 39874- 6826 July, [facility] [id number] [place] [address] 15794- 9486 July, [facility] [id number] [place] [address] 90816- 5104 July, Amput below knee, unilat S88.119A [facility] [id number] [place] [address] 03724- 2996 May, [facility] [id number] [place] [address] 23007- 9228 May, Neuropathy G62.9 [facility] [id number] [place] [address] 03898- 0231 May, [facility] [id number] [place] [address] 16638- 5327 May, [facility] [id number] [place] [address] 166289- 7076 May, [facility] [id number], [place] [address]- 4749 May, [facility] [id number] [place] [address] 46748- 3908 May, Neuropathy G62.9 [facility] [address], [place] [address]- 0303 Apr, [facility] [id number] [place] [address] 60470- 1646 Apr, [facility] [address], [place] [address]- 5156 19 Jcarlos, 2017 Diabetes type 2, controlled E11.9 and Renal failure N19 [facility] [address] [facility] [id number] [place] [address] -1035 Apr, [facility] [address] [facility] [id number] [place] [address]- 8609 Apr, [facility] [id number] [place] [address]- 2759 Mar, [facility] [address] [facility] [id number] [place] [address] 71009- 8417 Mar, [facility] [address] [facility] [id number] [place] [address]- 8598 Mar, [facility] [id number] [place] [address], [place] [address]- 2813 Mar, [facility] [id number] [place] [address], [place] [address]- 8588 Mar, [facility] [address], [place] [address]- 6725 Jan, Localized edema R60.0 [facility] [id number] [place] [address], [place] [address]- 4169 Jan, [facility] [id number] [place] [address]- 1324 Jan, [facility] [address], [place] [address]- 5329 Jan, [facility] [address], [place] [address]- 8105 Jan, [facility] [address], [place] [address]- 2140 Jan, [facility] [address], [place] [address]- 0763 Jan, [facility] [address], [place] [address]- 5732 Dec, Diabetes type 2, controlled E11.9 and Chronic nonintractable headache, unspecified headache type R51 [facility] [address] [place] [address] 06274- 8771 Dec, [facility] [id number] [place] [address] 45651- 3356 Dec, [facility] [id number] [place] [address] 99825- 5506 Nov, [facility] [id number] [place] [address] 02732- 6140 Nov, [facility] [id number] [place] [address] 64343- 4856 Oct, [facility] [id number] [place] [address] 91830- 1474 Oct, Migraine without status migrainosus, not intractable, unspecified migraine type G43.909 [facility] [id number] [place] [address] 88660- 3266 Oct, [facility] [id number] [place] [address] 72637- 5774 Sep, Amput below knee, unilat S88.119A and Neuropathy G62.9 [facility] [address] [place] [address] 96846- 2585 Sep, [facility] [id number] [place] [address] 33644- 9388 Sep, [facility] [address] [place] [address] 33844- 5757 Sep, [facility] [id number] [place] [address] 55075- 5949 Aug, [facility] [id number] [place] [address] 23142- 1812 Aug, [facility] [id number] [place] [address] 89192- 0642 Aug, Diabetes type 2, controlled E11.9 [facility] [address] [facility] [id number] [place] [address]- 3599 Aug, [facility] [address] [facility] [id number] [place] [address]- 0284 Jun, Diabetes type 2, controlled E11.9 and Neuropathy G62.9 [facility] [address] [facility] [id number] [place] [address]- 6956 Jun, [facility] [address] [facility] [id number] [place] [address]- 4818 Jun, [facility] [address] [facility] [id number] [place] [address]- 8903 Jun, [facility] [address] [facility] [id number] [place] [address]- 8343 Jun, [facility] [address] [facility] [id number] [place] [address]- 0072 May, [facility] [address] [facility] [id number] [place] [address]- 8398 May, Diabetes type 2, controlled E11.9 [facility] [address] [facility] [id number] [place] [address]- 0907 May, [facility] [address] [facility] [id number] [place] [address]- 7637 May, [facility] [address] [facility] [id number], [place] [address]- 1195 May, [facility] [address] [facility] [id number] [place] [address]- 0887 May, [facility] [address] [facility] [id number] [place] [address]- 7763 May, [facility] [address] [facility] [id number] [place] [address]- 9634 May, [facility] [address], [place] [address]- 0481 16 May, 2015 [facility] [id number] [place] [address] 78591- 4139 May, COPD (chronic obstructive pulmonary disease) J44.9 [facility] [address], [place] [address]- 7547 15 May, 2015 [facility] [id number] [place] [address] 55409- 8494 May, [facility] [id number] [place] [address] 31866- 4720 May, [facility] [id number] [place] [address] 89474- 6803 May, [facility] [id number] [place] [address] 37555- 8108 May, [facility] [id number] [place] [address] 71889- 0667 May, Renal failure N19 and Pneumonia, organism unspecified, unspecified laterality, unspecified part of lung J18.9 [facility] [address] [place] [address] 05725- 4084 Apr, [facility] [address], [place] [address]- 0257 Apr, [facility] [address] [place] [address] 74764- 3463 Apr, [facility] [id number] [place] [address] 90145- 3919 Apr, Diabetes mellitus 250.00 [facility] [id number] [place] [address] 44955- 2718 Apr, [facility] [address], [place] [address]- 4312 Apr, [facility] [id number] [place] [address] 20231- 6440 Apr, [facility] [place] [facility] [address] [facility] [id number] [place] [address]- 9223 Apr, [facility] [place] [facility] [address] [facility] [id number] [place] [address]- 2993 31 Mar, 2015 [facility] [place] [facility] [address] [facility] [id number] [place] [address]- 9581 28 Mar, 2015 [facility] [place] [facility] [address] [id number] [place] [address]- 9366 23 Mar, 2015 [facility] [place] [facility] [address] [facility] [id number] [place] [address], [place]- 1039 16 Mar, 2015 Renal failure N19 [facility] [place] [facility] [address] [facility] [id number] [place] [address]- 5007 14 Mar, 2015 [facility] [place] [facility] [id number] [place] [address]- 4085 Mar, [facility] [place] [facility] [address] [facility] [id number] [place] [address]- 1336 Mar, [facility] [place] [facility] [id number] [place] [address]- 6364 24 Jan, 2015 [facility] [place] [facility] [address] [facility] [id number] [place] [address]- 8987 18 Jan, 2015 [facility] [place] [facility] [id number] [place] [address]- 9424 17 Jan, 2015 [facility] [place] [facility] [address] [facility] [id number], [place] [address]- 9694 13 Jan, 2015 [facility] [place] [facility] [address] [facility] [id number] [place] [address]- 3479 Dec, [facility] [place] [facility] [address] [facility] [id number] [place] [address]- 5921 Dec, [facility] [place] [facility] [address] [facility] [id number], [place] [address]- 6391 Dec, [facility] [place] [facility] [address], [place] [address]- 7679 Nov, [facility] [address] [place] [address]- 9075 Nov, [facility] [address], [place] [address]- 6137 Nov, [facility] [id number] [place] [address], [place] [address]- 4743 Oct, [facility] [address] [place] [address]- 0351 Oct, [facility] [id number] [place] [address], [place] [address]- 0286 Oct, Renal failure 586 and Obesity 278.00 [facility] [id number] [address] Oct, [facility] [address], [place] [address] Oct, [facility] [id number] [place] [address] Oct, [facility] [id number] [address] Sep, [facility] [id number], [place] [address] Sep, [facility] [id number] [address] Sep, Diabetes mellitus 250.00 and Congestive heart failure, unspecified 428.0 [facility] [id number], [place] [address] Aug, [facility] [id number], [place] [address] Aug, [facility] [id number] [address] Aug, [facility] [address] [id number] [place] [address] July, [facility] [address] [id number] [place] [address] July, [facility] [address] [id number] [place] [address] July, Heart murmur, systolic 785.2 [facility] [address] [id number] [place] [address] July, [facility] [address] [id number] [place] [address] July, [facility] [address] [id number] [place] [address] Jun, [facility] [address] [id number] [place] [address] Jun, [facility] [address] [id number] [place] [address] May, [facility] [place] [facility] [address] [id number] [place] [address] 23 May, 2014 [facility] [address] [id number] [place] [address] May, [facility] [place] [facility] [address] [id number] [place] [address] 18 May, 2014 [facility] [place] [facility] [address] [id number] [place] [address]- [address] 16 May, 2014 [facility] [place] [facility] [address] [id number] [place] [address]- [address] 16 May, 2014 [facility] [place] [facility] [address] [id number] [place] [address] 10 May, 2014 [facility] [place] [facility] [address] [id number] [place] [address]- [address] 10 May, 2014 [facility] [place] [facility] [address] [id number] [place] [address]- [address] May, 2014 [facility] [place] [facility] [address] [id number] [place] [address]- [address] May, 2014 [facility] [place] [facility] [address] [id number] [place] [address]- [address] May, 2014 [facility] [place] [facility] [address] [id number] [place] [address]- [address] May, 2014 [facility] [place] [facility] [address] [id number] [place] [address] May, 2014 [facility] [place] [facility] [address] [id number] [place] [address]- [address] May, 2014 [facility] [place] [facility] [address] [facility] [id number] [place] [address] May, 2014 [facility] [place] [facility] [address] [facility] [id number] [place] [address] May, 2014 [facility] [place] [facility] [address] [facility] [id number] [place] [address]- [address] May, 2014 [facility] [place] [facility] [address] [facility] [id number] [place] [address]- [address] May, 2014 [facility] [place] [facility] [address] [facility] [id number] [place] [address] May, 2014 [facility] [place] [facility] [address] [facility] [id number], [place] [address] May, 2014 [facility] [place] [facility] [address] [facility] [id number] [place] [address]- [address] 16 May, 2014 [facility] [place] [facility] [address] [facility] [id number] [place] [address] 16 May, 2014 [facility] [place] [facility] [address] [facility] [id number] [place] [address] 2007 11 May, 2014 [facility] [place] [facility] [address] [facility] [id number] [place] [address] 57[address] May, [facility] [place] [facility] [address] [id number] [place] [address] 3158 May, [facility] [place] [facility] [address] [id number] [place] [address]- 8606 May, [facility] [place] [facility] [address] [id number] [place] [address]- 9130 Apr, [facility] [place] [facility] [address] [id number] [place] [address]- 5659 Apr, [facility] [place] [facility] [address] [id number] [place] [address]- 8776 Apr, [facility] [place] [facility] [address] [id number] [place] [address]- 1517 Apr, [facility] [place] [facility] [address] [id number] [place] [address]- 0733 Apr, [facility] [place] [facility] [address] [id number] [place] [address]- 8246 Apr, [facility] [place] [facility] [address] [id number] [place] [address]- 4600 Apr, [facility] [place] [facility] [address] [id number] [place] [address]- 1026 Apr, [facility] [place] [facility] [address] [id number] [place] [address]- 9202 Mar, [facility] [place] [facility] [address] [id number] [place] [address]- 1131 Mar, [facility] [place] [facility] [address] [id number] [place] [address]- 1272 Mar, [facility] [place] [facility] [address] [id number] [place] [address]- 3291 Mar, [facility] [place] [facility] [address] [id number] [place] [address]- 9233 Mar, [facility] [place] [facility] [address] [id number] [place] [address]- 5001 Mar, [facility] [place] [facility] [address] [id number] [place] [address]- 0554 Mar, [facility] [place] [facility] [address] [id number] [place] [address]- 8783 Mar, [facility] [place] [facility] [address] [id number] [place] [address]- 7216 Mar, [facility] [place] [facility] [address] [id number] [place] [address]- 5822 Mar, [facility] [place] [facility] [address] [id number] [place] [address]- 0281 Mar, [facility] [place] [facility] [address] [id number] [place] [address]- 2438 Mar, [facility] [place] [facility] [address] [id number] [place] [address]- 3409 Mar, [facility] [place] [facility] [address] [id number] [place] [address]- 8914 Mar, [facility] [place] [facility] [address] [id number] [place] [address]- 6641 Mar, [facility] [place] [facility] [address] [id number] [place] [address]- 3911 Mar, [facility] [place] [facility] [address] [id number] [place] [address]- 7751 Mar, [facility] [place] [facility] [address] [id number] [place] [address]- 9794 Mar, [facility] [place] [facility] [address] [id number] [place] [address]- 3590 Mar, [facility] [place] [facility] [address] [id number] [place] [address] Mar, [facility] [place] [facility] [address] [id number] [place] [address]- 9188 Mar, [facility] [place] [facility] [address] [id number] [place] [address]- 1361 Mar, [facility] [place] [facility] [address] [id number] [place] [address]- 0658 Jan, [facility] [place] [facility] [address] [id number] [place] [address]- 3341 Jan, [facility] [place] [facility] [address] [id number] [place] [address]- 2784 Jan, [facility] [place] [facility] [address] [id number] [place] [address]- 4843 Jan, [facility] [place] [facility] [address] [id number] [place] [address]- 1982 Jan, [facility] [place] [facility] [address] [id number] [place] [address]- 4121 Jan, [facility] [place] [facility] [address] [id number] [place] [address]- 7229 Jan, [facility] [place] [facility] [address] [id number] [place] [address]- 7816 Jan, [facility] [place] [facility] [address] [id number] [place] [address]- 3517 Jan, [facility] [place] [facility] [address] [id number], [place] [address]- 6990 Jan, [facility] [place] [facility] [address] [id number], [place] [address]- 4409 Jan, [facility] [place] [facility] [address] [id number] [place] [address]- 9825 Jan, [facility] [place] [facility] [address] [id number] [place] [address]- 8981 Jan, [facility] [place] [facility] [address] [id number] [place] [address]- 9448 Jan, [facility] [place] [facility] [address] [id number] [place] [address]- 1618 Jan, [facility] [place] [facility] [address] [id number] [place] [address]- 5965 Jan, [facility] [place] [facility] [address] [id number] [place] [address]- 9112 Jan, [facility] [place] [facility] [address] [id number] [place] [address]- 2558 Jan, [facility] [place] [facility] [address] [id number] [place] [address]- 7483 Jan, [facility] [place] [facility] [address] [id number] [place] [address]- 8280 Jan, [facility] [place] [facility] [address] [id number] [place] [address]- 3451 Dec, [facility] [place] [facility] [address] [id number] [place] [address]- 0925 Dec, [facility] [place] [facility] [address] [id number] [place] [address]- 5197 Dec, [facility] [place] [facility] [address] [id number] [place] [address]- 5502 Dec, [facility] [place] [facility] [address] [id number] [place] [address]- 5192 Dec, [facility] [place] [facility] [address] [id number] [place] [address]- 8862 14 Dec, 2013 [facility] [place] [facility] [address] [id number] [place] [address]- 3167 14 Dec, 2013 [facility] [place] [facility] [address] [id number] [place] [address]- 7006 10 Dec, 2013 [facility] [place] [facility] [address] [id number] [place] [address]- 7354 10 Dec, 2013 [facility] [place] [facility] [address] [id number] [place] [address]- 4974 08 Dec, 2013 [facility] [place] [facility] [address] [id number] [place] [address]- 5145 08 Dec, 2013 [facility] [place] [facility] [address] [id number] [place] [address]- 3198 Dec, [facility] [place] [facility] [address] [id number] [place] [address]- 4373 Dec, [facility] [place] [facility] [address] [id number] [place] [address]- 2079 Dec, [facility] [place] [facility] [address] [id number] [place] [address]- 7862 Dec, [facility] [place] [facility] [address] [id number] [place] [address]- 6276 22 Nov, 2013 [facility] [place] [facility] [address] [id number] [place] [address]- 4093 22 Nov, 2013 [facility] [place] [facility] [address] [id number] [place] [address]- 5441 19 Nov, 2013 [facility] [place] [facility] [address] [id number] [place] [address]- 3782 19 Nov, 2013 [facility] [place] [facility] [address] [id number], [place] [address]- 9550 13 Nov, 2013 [facility] [place] [facility] [address] [id number], [place] [address]- 8290 13 Nov, 2013 [facility] [place] [facility] [address] [id number], [place] [address]- 8703 10 Nov, 2013 [facility] [place] [facility] [address] [id number] [place] [address]- 2544 10 Nov, 2013 [facility] [place] [facility] [address] [id number], [place] [address]- 1477 08 Nov, 2013 [facility] [place] [facility] [address] [id number], [place] [address]- 6975 05 Sep, 2013 [facility] [place] [facility] [address] [id number], [place] [address]- 8233 Nov, [facility] [place] [facility] [address] [id number] [place] [address]- 6391 Nov, [facility] [place] [facility] [address] [id number] [place] [address]- 3713 Nov, [facility] [place] [facility] [address] [id number] [place] [address]- 0413 Oct, [facility] [place] [facility] [address] [id number] [place] [address]- 9606 Oct, [facility] [place] [facility] [address] [id number] [place] [address]- 4766 Oct, [facility] [place] [facility] [address] [id number] [place] [address]- 7422 Oct, [facility] [place] [facility] [address] [id number] [place] [address]- 0073 Oct, [facility] [place] [facility] [address] [id number] [place] [address]- 5069 Sep, [facility] [place] [facility] [address] [id number] [place] [address]- 8867 Sep, [facility] [place] [facility] [address] [facility] [id number] [place] [address]- 8420 Sep, [facility] [place] [facility] [address] [id number] [place] [address]- 8738 Sep, [facility] [place] [facility] [address] [id number], [place] [address]- 7977 Aug, [facility] [place] [facility] [address] [id number] [place] [address]- 9846 Aug, [facility] [place] [facility] [address] [id number] [place] [address]- 4471 Aug, [facility] [place] [facility] [address] [id number] [place] [address]- 9365 Aug, [facility] [place] [facility] [address] [id number] [place] [address]- 8051 Aug, [facility] [place] [facility] [address] [id number] [place] [address]- 6621 Aug, [facility] [place] [facility] [address] [id number] [place] [address]- 9996 Aug, [facility] [place] [facility] [address] [id number] [place] [address]- 3269 Aug, [facility] [place] [facility] [address] [id number] [place] [address]- 8612 Aug, [facility] [place] [facility] [address] [id number] [place] [address]- 5877 Aug, [facility] [place] [facility] [address] [id number] [place] [address]- 7343 Aug, [facility] [place] [facility] [address] [id number] [place] [address]- 5663 Aug, [facility] [place] [facility] [address] [id number] [place] [address]- 6749 Aug, [facility] [place] [facility] [address] [id number] [place] [address]- 8839 Aug, [facility] [place] [facility] [address] [id number] [place] [address]- 2207 Aug, [facility] [place] [facility] [address] [id number] [place] [address]- 2175 Aug, [facility] [place] [facility] [address] [id number] [place] [address]- 8755 Aug, [facility] [place] [facility] [address] [id number] [place] [address]- 6962 Aug, [facility] [place] [facility] [address] [id number] [place] [address]- 2293 Aug, [facility] [place] [facility] [address] [id number] [place] [address]- 9298 Aug, [facility] [place] [facility] [address] [id number] [place] [address]- 6890 Aug, [facility] [place] [facility] [address] [id number] [place] [address]- 9469 Aug, [facility] [place] [facility] [address] [id number] [place] [address]- 1990 Aug, [facility] [place] [facility] [address] [id number] [place] [address]- 0892 Aug, [facility] [place] [facility] [address] [id number] [place] [address]- 8110 July, [facility] [place] [facility] [address] [id number] [place] [address]- 8774 July, [facility] [place] [facility] [address] [id number] [place] [address]- 6894 July, [facility] [place] [facility] [address] [id number] [place] [address]- 9897 July, [facility] [place] [facility] [address] [id number] [place] [address]- 1249 July, [facility] [place] [facility] [address] [id number] [place] [address]- 1278 July, [facility] [place] [facility] [address] [id number] [place] [address]- 1352 Jun, [facility] [place] [facility] [address] [id number] [place] [address]- 7918 Jun, [facility] [place] [facility] [address] [id number] [place] [address]- 4698 Jun, [facility] [place] [facility] [address] [id number] [place] [address]- 3752 Jun, [facility] [place] [facility] [address] [id number] [place] [address]- 4974 Jun, [facility] [place] [facility] [address] [id number] [place] [address]- 9996 Jun, [facility] [place] [facility] [address] [id number] [place] [address]- 6825 Jun, [facility] [place] [facility] [address] [id number] [place] [address]- 3956 Jun, [facility] [place] [facility] [address] [id number] [place] [address]- 3404 Jun, [facility] [place] [facility] [address] [id number] [place] [address]- 4571 Jun, [facility] [place] [facility] [address] [id number] [place] [address]- 7749 Jun, [facility] [place] [facility] [address] [id number] [place] [address]- 6290 Jun, [facility] [place] [facility] [address] [id number] [place] [address]- 1357 Jun, [facility] [place] [facility] [address] [id number] [place] [address]- 2496 Jun, [facility] [place] [facility] [address] [id number] [place] [address]- 9578 Jun, [facility] [place] [facility] [address] [id number] [place] [address]- 9166 May, [facility] [place] [facility] [address] [id number] [place] [address]- 5295 May, [facility] [place] [facility] [address] [id number] [place] [address]- 4600 May, [facility] [place] [facility] [address] [id number] [place] [address]- 6906 May, [facility] [place] [facility] [address] [id number] [place] [address]- 1757 May, [facility] [place] [facility] [address] [id number] [place] [address]- 3703 May, [facility] [place] [facility] [address] [id number] [place] [address]- 2663 May, [facility] [place] [facility] [address] [id number] [place] [address]- 7909 May, [facility] [place] [facility] [address] [id number] [place] 6331 May, [facility] [place] [facility] [address] [id number] [place] [address]- 9845 May, [facility] [place] [facility] [address] [id number] [place] [address]- 0421 May, [facility] [place] [facility] [address] [id number] [place] [address]- 5710 May, [facility] [place] [facility] [address] [id number] [place] [address]- 9903 May, [facility] [place] [facility] [address] [id number] [place] [address]- 8084 May, [facility] [place] [facility] [address] [id number] [place] [address]- 3976 May, [facility] [place] [facility] [address] [id number] [place] [address]- 5287 May, [facility] [place] [facility] [address] [id number] [place] [address]- 6035 May, [facility] [place] [facility] [address] [id number] [place] [address]- 4193 Apr, [facility] [place] [facility] [address] [id number] [place] [address]- 1930 Apr, [facility] [place] [facility] [address] [id number] [place] [address]- 7455 Apr, [facility] [place] [facility] [address] [id number] [place] [address]- 9769 Apr, [facility] [place] [facility] [address] [id number] [place] [address]- 1539 Apr, [facility] [address] [id number] [place] [address]- 2475 Apr, [facility] [place] [facility] [address] [id number] [place] [address]- 0855 Apr, [facility] [place] [facility] [address] [id number] [place] [address]- 6590 Apr, [facility] [place] [facility] [address] [id number] [place] [address]- 9312 Apr, [facility] [place] [facility] [address] [id number] [place] [address]- 7999 Apr, [facility] [place] [facility] [address] [id number] [place] [address]- 4367 Apr, [facility] [place] [facility] [address] [id number] [place] [address]- 4411 Apr, [facility] [place] [facility] [address] [id number] [place] [address]- 5782 Apr, [facility] [place] [facility] [address] [id number] [place] [address]- 4520 Apr, [facility] [place] [facility] [address] [id number] [place] [address]- 2887 Apr, [facility] [place] [facility] [address] [id number] [place] [address]- 6565 Apr, [facility] [place] [facility] [address] [id number] [place] [address]- 3944 Mar, [facility] [place] [facility] [address] [id number] [place] [address]- 3622 Mar, [facility] [place] [facility] [address] [id number] [place] [address]- 4166 Mar, [facility] [place] [facility] [address] [id number] [place] [address]- 0436 Mar, [facility] [place] [facility] [address] [id number] [place] [address]- 8988 18 Mar, 2012 [facility] [place] [facility] [address] [id number] [place] [address]- 2993 18 Mar, 2013 [facility] [place] [facility] [address] [id number] [place] [address]- 9760 18 Mar, 2013 [facility] [place] [facility] [address] [id number] [place] [address]- 3839 18 Mar, 2013 [facility] [place] [facility] [address] [id number] [place] [address]- 1181 17 Mar, 2013 [facility] [place] [facility] [address] [id number] [place] [address]- 6053 17 Mar, 2013 [facility] [place] [facility] [address] [id number] [place] [address]- 0013 05 Mar, 2013 [facility] [place] [facility] [address] [id number] [place] [address]- 3276 05 Mar, 2013 [facility] [place] [facility] [address] [id number] [place] [address]- 3684 Mar, [facility] [place] [facility] [address] [id number] [place] [address]- 6735 04 Mar, 2013 [facility] [place] [facility] [address] [id number] [place] [address]- 0261 Mar, [facility] [place] [facility] [address] [id number] [place] [address]- 8489 Mar, [facility] [place] [facility] [address] [id number] [place] [address]- 6349 Mar, [facility] [place] [facility] [address] [id number] [place] [address]- 4706 Mar, [facility] [place] [facility] [address] [id number] [place] [address]- 8846 06 Jan, 2013 [facility] [place] [facility] [address] [id number] [place] [address]- 3633 Jan, [facility] [place] [facility] [address] [id number] [place] [address]- 0914 Jan, [facility] [place] [facility] [address] [id number] [place] [address]- 5707 Jan, [facility] [place] [facility] [address] [id number] [place] [address]- 5901 Nov, [facility] [place] [facility] [address] [id number] [place] [address]- 3390 Nov, [facility] [place] [facility] [address] [id number] [place] [address]- 2628 Nov, [facility] [place] [facility] [address] [id number] [place] [address]- 8995 Nov, [facility] [place] [facility] [address] [id number] [place] [address]- 0934 Oct, [facility] [place] [facility] [address] [id number] [place] [address] Oct, [facility] [place] [facility] [address] [id number] [place] [address] Oct, [facility] [place] [facility] [address] [id number] [place] [address] Oct, [facility] [place] [facility] [address] [id number], [place] [address] Sep, [facility] [place] [facility] [address] [id number], [place] [address] Sep, [facility] [place] [facility] [address] [id number] [place] [address] Sep, [facility] [place] [facility] [address] [id number] [place] [address] Sep, [facility] [place] [facility] [address] [id number] [place] [address] Sep, [facility] [place] [facility] [address] [id number] [place] [address] Sep, [facility] [address] [id number] [place] [address] Sep, [facility] [address] [id number] [place] [address] Sep, [facility] [address] [id number] [place] [address] Sep, [facility] [address] [id number] [place] [address] Aug, [facility] [address] [id number] [place] [address] Aug, [facility] [address] [id number] [place] [address] Aug, [facility] [address] [id number] [place] [address] Aug, [facility] [address] [id number] [place] [address] July, [facility] [address] [id number] [place] [address] July, [facility] [address] [id number] [place] [address] July, [facility] [address] [id number] [place] [address] July, [facility] [address] [id number] [place] [address] July, [facility] [place] [facility] [address] [id number] [place] [address] July, [facility] [address] [id number] [place] [address] July, [facility] [address] [id number] [place] [address] Jun, [facility] [address] [id number], [place] [address] May, [facility] [id number], [place] [address] May, [facility] [id number], [place] [address] May, [facility] [id number] [place] [address] May, [facility] [id number], [place] [address] May, [facility] [id number] [place] [address] May, [facility] [id number], [place] [address] May, [facility] [id number], [place] [address] May, IMMUNIZATIONS No Known Immunizations SOCIAL HISTORY Never Assessed REASON FOR VISIT Diabetes/Pain management (chronic) PT has sinus congestion-Nicola VALADEZ PLAN OF CARE Activity Details Follow Up 4 Weeks Reason:dm2 VITAL SIGNS Height 64 in 2017-06-06 Weight 300 lbs 2017-06-06 Temperature 97.6 degrees Fahrenheit 2017-06-06 Heart Rate 78 bpm 2017-06-06 Respiratory Rate 20 2017-06-06 Oximetry w/ oxygen:92 % 2017-06-06 BMI 51.49 kg/m2 2017-06-06 Blood pressure systolic 108 mmHg 2017-06-06 Blood pressure diastolic 66 mmHg 2017-06-06 MEDICATIONS Medication Instructions Dosage Frequency Start Date End Date Duration Status Metoprolol Tartrate 100 mg TAKE ONE TABLET BY MOUTH TWICE DAILY - TAKE WITH MEALS 30 Active Mupirocin 2 % APPLY TO AFFECTED AREA TWICE DAILY 5 Active Nystatin [id number] UNIT/GM Externally Twice a day 1 to affected area 12h 16 Mar, 2015 Active Renvela 800 MG 2tablet with breakfast and dinner and 1 tablet with lunch Active Furosemide 40 MG TAKE ONE TABLET BY MOUTH DAILY 30 30 Active Oxygen 5 as directed July, Active Aspirin 81 mg take 1 tablet (81 mg) by oral route once daily May, Active Rosuvastatin Calcium 20 MG TAKE 1 TABLET BY MOUTH ONCE A DAY 30 Active Lantus SoloStar 100 unit/ml Subcutaneous Once a day INJECT 36 UNITS SUBCUTANEOUSLY DAILY AT BEDTIME 24h Active Singulair 10 MG take 1 tablet (10 mg) by oral route once daily in the evening Active Humalog KwikPen 100 UNIT/ML Subcutaneous 3 times a day per sliding scale 8h May, 30 days Active Hotevilla 10-325 MG Orally every 6 hrs take 1 tablet by oral route every 6 hours as needed for pain 6h May, 28 days Active True Metrix Blood Glucose Test - USE TO TEST BLOOD GLUCOSE LEVELS TWICE DAILY 25 Active Qvrdeedkho-EFMN-Exxmgzft 50-325-40 MG Orally 4 times a day 1 tablet as needed 6h May, Active Fluticasone Propionate 50 MCG/ACT inhale 1 spray (50 mcg) in each nostril by intranasal route once daily Active Glucagon Emergency 1 mg July, Not-Taking Isosorbide Mononitrate ER 30 mg TAKE 1 TABLET BY MOUTH DAILY 30 Active Crestor 20 mg Orally Once a day 1 tablet 24h Active Montelukast Sodium 10 MG TAKE ONE TABLET BY MOUTH ONCE DAILY IN THE EVENING 30 Active Dialyvite Orally Once a day 1 tablet 24h Not-Taking Guaifenesin 400 MG Orally 4 times a day 1 tablet as needed 6h Apr, Active PredniSONE 20 mg Orally Once a day 2 tablets 24h Apr, 05 days Not-Taking Gabapentin 300 MG Orally Three times a day 1 capsule 8h Active Cetirizine HCl 10 mg Orally Once a day 1 tablet 24h May, Aug, 30 day(s) Active Loratadine 10 MG TAKE ONE TABLET BY MOUTH DAILY AT BEDTIME 30 Active Wheelchair - .... 24h July, lifetime Active Amlodipine Besylate 10 mg 1 tablet Once a day 30 30 Active RESULTS No Results PROCEDURES Procedure Date Ordered Result Body Site [facility] VISIT ESTABLISHED PATIENT June 06, 2017 INSTRUCTIONS MEDICATIONS ADMINISTERED No Known Medications [...]
--- OUTSIDE RECORDS SUMMARY | 2017-12-18 19:59 | XMS REPORT ---
Author Author MCKENNA HEBERT Organization [facility] Address [address] [place] [address] Care Team Providers Care Physicist [place] Name Role Phone MCKENNA HEBERT Unavailable PROBLEMS Type Condition ICD9-CM Code HRS42-WL Code Onset Dates Condition Status SNOMED Code Problem Neuropathy G62.9 Active 539010656 Problem Intra-dialytic hypotension I95.3 Active 858527782 Problem Amput below knee, unilat S88.119A Active 78979575 Problem Cellulitis of right lower extremity L03.115 Active 609995749 Problem Diabetes type 2, controlled E11.9 Active 25162845 Problem Renal failure N19 Active 34189636 Problem 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 Active 9132057 Problem Other chronic pain G89.29 Active 02954604 Problem Seasonal allergic rhinitis due to other allergic trigger J30.89 Active 577792508 Problem Chronic congestive heart failure, unspecified congestive heart failure type I50.9 Active 68722630 Problem Angina pectoris I20.9 Active 902418525 Problem Chronic congestive heart failure, unspecified heart failure type I50.9 Active 34814354 ALLERGIES No Information ENCOUNTERS Encounter Location Date Diagnosis [facility] [address], [place] [address] Oct, [facility] [address], [place] [address] 1769 Sep, [facility] [address], [place] [address]- 1637 Sep, [facility] [id number] [place] [address] 13360- 3148 Sep, Other chronic pain G89.29 and Pain in right knee M25.561 [facility] [id number] [place] [address] 52318- 8691 Sep, [facility] [address] [facility] [id number] [place] [address]- 9070 Aug, [facility] [address] [facility] [id number] [place] [address]- 8742 Aug, 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 [facility] [address] [id number] [place] [address]- 5822 Aug, [facility] [address] [facility] [id number] [address]- 5147 Aug, Diabetes type 2, controlled E11.9 and Acute pain of right knee M25.561 [facility] [id number] [place] [address] 5118 Aug, [facility] [address] [facility] [id number] [place] [address]- 2271 July, [facility] [id number] [place] [address]- 3400 16 Jun, 2017 [facility] [address] [facility] [id number], [place] [address]- 1832 Jun, [facility] [id number] [place] [address]- 3704 Jun, Diabetes type 2, controlled E11.9 [facility] [address] [facility] [id number], [place] [address]- 2323 Jun, [facility] [address] [id number], [place] [address]- 1328 May, [facility] [address] [facility] [id number] [place] [address]- 1701 May, [facility] [address] [facility] [id number] [address] 94[address] May, [facility] [address] [id number], [place] [address]- 8382 May, Chronic congestive heart failure, unspecified congestive heart failure type I50.9 [facility] [id number] [place] [address] 08271- 7060 May, Diabetes type 2, controlled E11.9 ; BMI 50.0-59.9, adult Z68.43 ; Chronic congestive heart failure, unspecified heart failure type I50.9 ; Angina pectoris I20.9 ; Seasonal allergic rhinitis due to other allergic trigger J30.89 and Renal failure N19 [facility] [id number] [place] [address] [id number] May, [facility] [id number] [place] [address] 33522- 1696 May, [place] [address] [address]- 57[address] May, [facility] [id number] [place] [address] 11938- 9253 May, [place] [id number] [place] [address] 36924- 0726 May, [facility] [id number] [place] [address] 50326- 1121 Apr, BMI 50.0-59.9, adult Z68.43 [facility] [id number] [place] [address] 28303- 3290 Apr, BMI 50.0-59.9, adult Z68.43 ; Post-procedural fever R50.82 and Bronchitis J40 [facility] [id number] [place] [address] 96806- 9601 Apr, Chronic congestive heart failure, unspecified congestive heart failure type I50.9 [facility] [id number] [place] [address] 58937- 8695 Jan, [facility] [id number] [place] [address] 82723- 0843 Jan, Diabetes type 2, controlled E11.9 [facility] [id number] [place] [address] 56999- 5712 Jan, Neuropathy G62.9 [facility] [address] [facility] [id number], [place] [address]- 8866 Jan, [facility] [address] [facility] [id number], [place] [address]- 5642 Jan, [facility] [address] [facility] [id number], [place] [address]- 5800 Jan, [facility] [address] [facility] [id number], [place] [address]- 6443 Jan, [facility] [address] [id number], [place] [address]- 4981 Jan, [facility] [address] [id number], [place] [address]- 1129 Dec, [facility] [address], [place] [address]- 2434 Dec, [facility] [address], [place] [address]- 4545 Dec, Diabetes type 2, controlled E11.9 [facility] [address], [place] [address]- 9210 Dec, [facility] [address] [id number], [place] [address]- 9333 Dec, [facility] [address], [place] [address]- 6210 Dec, Chronic congestive heart failure, unspecified congestive heart failure type I50.9 [facility] [address] [facility] [id number], [place] [address]- 2944 Dec, [facility] [address] [id number], [place] [address]- 9979 Dec, [facility] [address] [id number], [place] [address]- 3856 Nov, Chronic congestive heart failure, unspecified congestive heart failure type I50.9 [facility] [address] [facility] [id number] [address]- 4828 Nov, Chronic congestive heart failure, unspecified congestive heart failure type I50.9 [facility] [address] [facility] [id number], [place] [address]- 3119 Nov, [facility] [address], [place] [address]- 8308 Oct, [facility] [address] [facility] [id number], [place] [address]- 8567 Oct, [facility] [id number] [place] [address] 10012- 7406 Oct, Chronic congestive heart failure, unspecified congestive heart failure type I50.9 [facility] [address], [place] [address]- 7417 Oct, [facility] [id number] [place] [address] 53265- 1324 Oct, Pneumonia of both lungs due to infectious organism, unspecified part of lung J18.9 [facility] [address], [place] [address]- 9778 Oct, [facility] [address], [place] [address]- 2673 Oct, Diabetes type 2, controlled E11.9 [facility] [address], [place] [address]- 6583 Oct, Diabetes type 2, controlled E11.9 [facility] [address], [place] [address]- 5891 Sep, [facility] [address], [place] [address]- 4292 Sep, Neuropathy G62.9 [facility] [address] [id number], [place] [address]- 0518 Aug, Intra-dialytic hypotension I95.3 [facility] [address] [facility] [id number] [place] [address] 2546 July, [facility] [id number] [place] [address], [place] [address] 2546 July, [facility] [id number] [place] [address] 2546 July, [facility] [id number] [place] [address], [place] [address] 2546 July, Amput below knee, unilat S88.119A [facility] [id number] [place] [address], [place] [address] 2546 May, [facility] [id number] [place] [address], [place] [address] 2546 May, Neuropathy G62.9 [facility] [id number] [place] [address] 50841 2546 May, [facility] [id number] [place] [address] 2546 May, [facility] [id number] [place] [address], [place] [address]- 4599 May, [facility] [id number] [place] [address]- 9646 May, [facility] [address], [place] [address]- 6086 May, Neuropathy G62.9 [facility] [id number] [place] [address] 2545 Apr, [facility] [id number] [place] [address], [place] [address] 2546 Apr, [facility] [id number] [place] [address] 2546 Apr, Diabetes type 2, controlled E11.9 and Renal failure N19 [facility] [address], [place] [address]7720 Apr, [facility] [address], [place] [address]- 2024 Apr, [facility] [address], [place] [address]- 1710 Mar, [facility] [id number] [place] [address] 81483- 8688 Mar, [facility] [id number] [place] [address] 86349- 8631 Mar, [facility] [id number] [place] [address] 65038- 8836 Mar, [facility] [id number] [place] [address] 98397- 0208 Mar, [facility] [id number] [place] [address] 27734- 8491 Jan, Localized edema R60.0 [facility] [address] [id number], [place] [address]- 5046 Jan, [facility] [id number] [place] [address] 26074- 8665 Jan, [facility] [address] [id number], [place] [address]- 1330 Jan, [facility] [id number] [place] [address] 18452- 3992 Jan, [facility] [address], [place] [address]- 7496 Jan, [facility] [id number] [place] [address] 76621- 5008 Jan, [facility] [address], [place] [address]- 2356 Dec, Diabetes type 2, controlled E11.9 and Chronic nonintractable headache, unspecified headache type R51 [facility] [id number] [place] [address] 20667- 4263 Dec, [facility] [id number] [place] [address] 02530- 1952 Dec, [facility] [id number] [place] [address] 40350- 7162 Nov, [facility] [id number] [place] [address] 09154- 1418 Nov, [facility] [id number] [place] [address] 95319- 4749 Oct, [facility] [id number] [place] [address] 19073- 9185 Oct, Migraine without status migrainosus, not intractable, unspecified migraine type G43.909 [facility] [id number] [place] [address] 20587- 1756 Oct, [facility] [id number] [place] [address] 28885- 2144 Sep, Amput below knee, unilat S88.119A and Neuropathy G62.9 [facility] [id number] [place] [address] 74436- 8094 Sep, [facility] [id number] [place] [address] 56481- 9129 Sep, [facility] [id number] [place] [address] 93664- 7981 Sep, [facility] [id number] [place] [address] 31653- 4348 Aug, [facility] [id number] [place] [address] 41619- 6865 Aug, [facility] [address] [place] [address] 76409- 7838 Aug, Diabetes type 2, controlled E11.9 [facility] [id number] [place] [address], [place] [address]- 1668 07 Aug, 2015 [facility] [address] [id number] [place] [address]- 6497 Jun, Diabetes type 2, controlled E11.9 and Neuropathy G62.9 [facility] [address] [id number] [place] [address]- 6072 14 Jul, 2015 [facility] [address] [id number] [place] [address]- 5571 Jun, [facility] [address] [id number] [place] [address]- 1138 Jun, [facility] [address] [id number] [place] [address]- 6680 Jun, [facility] [address] [id number] [place] [address]- 7227 May, [facility] [address] [id number] [place] [address]- 2482 May, Diabetes type 2, controlled E11.9 [facility] [address] [id number] [place] [address]- 5539 May, [facility] [address] [id number] [place] [address]- 3289 May, [facility] [address] [id number] [place] [address]- 9081 May, [facility] [address] [id number] [place] [address]- 4687 May, [facility] [address] [id number] [place] [address]- 1803 May, [facility] [address] [id number] [place] [address]- 5685 May, [facility] [address] [id number] [place] [address]- 6090 May, [facility] [address], [place] [address]- 0994 15 May, 2015 COPD (chronic obstructive pulmonary disease) J44.9 [facility] [address], [place] [address]- 8528 15 May, 2015 [facility] [address], [place] [address]- 4428 May, [facility] [address], [place] [address]- 0127 May, [facility] [address], [place] [address]- 2539 May, [facility] [address], [place] [address]- 8464 May, [facility] [address], [place] [address]- 3358 May, Renal failure N19 and Pneumonia, organism unspecified, unspecified laterality, unspecified part of lung J18.9 [facility] [address], [place] [address]- 3723 Apr, [facility] [address], [place] [address]- 7300 Apr, [facility] [address], [place] [address]- 2578 Apr, [facility] [address], [place] [address]- 2982 Apr, Diabetes mellitus 250.00 [facility] [address], [place] [address]- 0329 Apr, [facility] [address], [place] [address]- 0110 Apr, [facility] [address] [id number], [place] [address]- 3240 Apr, [facility] [address] [place] [address]- 3492 07 Apr, 2015 [facility] [place] [facility] [address] [id number] [place] [address]- 1443 31 Mar, 2014 [facility] [place] [facility] [address] [id number] [place] [address]- 0018 28 Mar, 2015 [facility] [place] [facility] [address] [id number] [place] [address], [place] [address]- 6662 23 Mar, 2014 [facility] [place] [facility] [address] [id number] [place] [address]- 6156 16 Mar, 2015 Renal failure N19 [facility] [place] [facility] [address] [facility] [id number] [place] [address], [place] [address]- 8244 14 Mar, 2015 [facility] [place] [facility] [address] [facility] [id number] [place] [address]- 0932 07 Mar, 2015 [facility] [place] [facility] [id number] [place] [address], [place] [address]- 3940 04 Mar, 2015 [facility] [place] [facility] [address] [facility] [id number] [place] [address]- 2621 24 Jan, 2015 [facility] [place] [facility] [address] [place] [address]- 2917 18 Jan, 2015 [facility] [place] [facility] [address] [id number] [place] [address]- 4898 17 Jan, 2015 [facility] [place] [facility] [address] [facility] [id number] [place] [address]- 7740 Jan, [facility] [place] [facility] [address] [facility] [id number] [place] [address]- 1371 Dec, [facility] [place] [facility] [address] [facility] [id number] [place] [address]- 5481 Dec, [facility] [place] [facility] [address] [facility] [id number] [place] [address] 2546 Dec, [facility] [place] [facility] [address] [facility] [id number] [place] 3935 Nov, [facility] [address] [facility] [id number], [place] [address]- 6037 Nov, [facility] [address] [place] [address]- 5156 Nov, [facility] [address] [id number] [place] [address]- 6937 Oct, [facility] [address] [facility] [id number] [place] [address]- 5859 Oct, [facility] [address] [facility] [id number], [place] [address]- 7798 Oct, Renal failure 586 and Obesity 278.00 [facility] [address] [facility] [id number], [place] [address]- 9690 Oct, [facility] [address], [place] [address]- 6746 Oct, [facility] [address], [place] [address]- 2090 Oct, [facility] [address], [place] [address]- 7968 Sep, [facility] [address], [place] [address]- 1017 Sep, [facility] [address] [id number], [place] [address]- 2188 Sep, Diabetes mellitus 250.00 and Congestive heart failure, unspecified 428.0 [facility] [address] [id number], [place] [address]- 0113 Aug, [facility] [address], [place] [address]- 8738 Aug, [facility] [address] [id number] [address] Aug, [facility] [id number] [address] July, [facility] [address] [id number] [place] [address] July, [facility] [address] [id number] [place] [address] July, Heart murmur, systolic 785.2 [facility] [address] [id number] [place] [address] July, [facility] [address] [id number] [place] [address] July, [facility] [address] [id number] [place] [address] Jun, [facility] [address] [id number] [place] [address] Jun, [facility] [address] [id number] [place] [address] May, [facility] [address] [id number] [place] [address] 23 May, 2014 [facility] [address] [id number] [place] [address] May, [facility] [address] [id number] [place] [address] 18 May, 2014 [facility] [address] [id number] [place] [address] 16 May, 2014 [facility] [address] [id number] [place] [address] 16 May, 2014 [facility] [address] [id number] [place] [address] 10 May, 2014 [facility] [address] [id number] [place] [address] 10 May, 2014 [facility] [address] [id number] [place] [address] 09 May, 2014 [facility] [place] [facility] [address] [id number] [place] [address] May, 2014 [facility] [place] [facility] [address] [id number] [place] [address] May, 2014 [facility] [place] [facility] [address] [facility] [id number] [place] [address] May, 2014 [facility] [place] [facility] [address] [facility] [id number] [place] [address] May, 2014 [facility] [place] [facility] [address] [id number] [place] [address] May, 2014 [facility] [place] [facility] [address] [id number] [place] [address] May, 2014 [facility] [place] [facility] [address] [id number] [place] [address] May, 2014 [facility] [place] [facility] [address] [facility] [id number] [place] [address] May, 2014 [facility] [place] [facility] [address] [facility] [id number] [place] [address] May, 2014 [facility] [place] [facility] [address] [facility] [id number] [place] [address] May, 2014 [facility] [place] [facility] [address] [facility] [id number] [place] [address] May, 2014 [facility] [place] [facility] [address] [facility] [id number] [place] [address] 16 May, 2014 [facility] [place] [facility] [address] [facility] [id number] [place] [address]- [address] 16 May, 2014 [facility] [place] [facility] [address] [facility] [id number] [place] [address] May, 2014 [facility] [place] [facility] [address] [facility] [id number] [place] [address] May, 2014 [facility] [place] [facility] [address] [facility] [id number] [place] [address] May, [facility] [address] [id number] [place] [address] May, [facility] [place] [facility] [address] [id number] [place] [address] Apr, [facility] [address] [id number] [place] [address]77 Apr, [facility] [place] [facility] [address] [id number] [place] [address] 7243 Apr, [facility] [address] [id number] [place] [address] 4304 Apr, [facility] [address] [id number] [place] [address] 58[address] Apr, [facility] [address] [id number] [place] [address] 7619 Apr, [facility] [address] [id number] [place] [address]- 9677 Apr, [facility] [address] [id number] [place] [address] 6[address] Apr, [facility] [address] [id number] [place] [address]49 Mar, [facility] [place] [facility] [address] [id number] [place] [address] 1612 Mar, [facility] [place] [facility] [address] [id number] [place] [address]- 5081 Mar, [facility] [place] [facility] [address] [id number] [place] [address]- [address]124 Mar, [facility] [place] [facility] [address] [id number] [place] [address] 5966 Mar, [facility] [place] [facility] [address] [id number] [place] [address]- 1280 Mar, [facility] [place] [facility] [address] [id number] [place] [address]- 2952 Mar, [facility] [place] [facility] [address] [id number] [place] [address]- 3929 Mar, [facility] [place] [facility] [address] [id number] [place] [address]- 8504 Mar, [facility] [place] [facility] [address] [id number] [place] [address]- 8645 Mar, [facility] [place] [facility] [address] [id number] [place] [address]- 0336 Mar, [facility] [place] [facility] [address] [id number] [place] [address]- 6970 Mar, [facility] [place] [facility] [address] [id number] [place] [address]- 2882 Mar, [facility] [place] [facility] [address] [id number] [place] [address]- 4618 Mar, [facility] [place] [facility] [address] [id number] [place] [address]- 8840 Mar, [facility] [place] [facility] [address] [id number] [place] [address]- 7609 Mar, [facility] [place] [facility] [address] [id number] [place] [address]- 1793 Mar, [facility] [place] [facility] [address] [id number] [place] [address]- 3507 Mar, [facility] [place] [facility] [address] [id number] [place] [address] 2348 Mar, [facility] [place] [facility] [address] [id number] [place] [address]- 3078 Mar, [facility] [place] [facility] [address] [id number] [place] [address]- 6257 Mar, [facility] [place] [facility] [address] [id number] [place] [address]- 6921 Mar, [facility] [place] [facility] [address] [id number] [place] [address]- 9442 Jan, [facility] [place] [facility] [address] [id number] [place] [address]- 8347 Jan, [facility] [place] [facility] [address] [id number] [place] [address]- 2266 Jan, [facility] [place] [facility] [address] [id number] [place] [address]- 1485 Jan, [facility] [place] [facility] [address] [id number] [place] [address]- 5617 Jan, [facility] [place] [facility] [address] [id number] [place] [address]- 9807 Jan, [facility] [place] [facility] [address] [id number] [place] [address]- 6759 Jan, [facility] [place] [facility] [address] [id number] [place] [address]- 8254 Jan, [facility] [place] [facility] [address] [id number] [place] [address]- 8319 Jan, [facility] [place] [facility] [address] [facility] [id number] [place] [address]- 6387 Jan, [facility] [place] [facility] [address] [id number] [place] [address]- 7263 Jan, [facility] [place] [facility] [address] [id number] [address] Jan, [facility] [place] [facility] [address] [id number] [place] [address]- 5843 Jan, [facility] [place] [facility] [address] [id number] [place] [address]- 3066 Jan, [facility] [place] [facility] [address] [id number], [place] [address]- 36[address] Jan, [facility] [place] [facility] [address] [id number] [place] [address]- 2700 Jan, [facility] [place] [facility] [address] [id number] [place] [address]- 7913 Jan, [facility] [place] [facility] [address] [id number] [place] [address]- 1091 Jan, [facility] [place] [facility] [address] [id number] [place] [address]- 6561 Jan, [facility] [place] [facility] [address] [id number] [place] [address]- 2477 Jan, [facility] [place] [facility] [address] [id number] [place] [address]- 3344 Dec, [facility] [place] [facility] [address] [id number] [place] [address]- 6515 Dec, [facility] [place] [facility] [address] [id number] [place] [address]- 4980 Dec, [facility] [place] [facility] [address] [id number] [place] [address]- 7193 Dec, [facility] [place] [facility] [address] [id number] [place] [address]- 0133 Dec, [facility] [place] [facility] [address] [id number] [place] [address]- 5258 Dec, [facility] [place] [facility] [address] [id number] [place] [address]- 8864 14 Dec, 2013 [facility] [place] [facility] [address] [id number] [place] [address]- 4764 10 Dec, 2013 [facility] [place] [facility] [address] [id number] [place] [address]- 0753 10 Dec, 2013 [facility] [place] [facility] [address] [id number] [place] [address]- 8170 08 Dec, 2013 [facility] [place] [facility] [address] [id number] [place] [address]- 9822 08 Dec, 2013 [facility] [place] [facility] [address] [id number] [place] [address]- 6105 Dec, [facility] [place] [facility] [address] [id number] [place] [address]- 1533 Dec, [facility] [place] [facility] [address] [id number] [place] [address]- 3383 Dec, [facility] [place] [facility] [address] [id number] [place] [address]- 6718 Dec, [facility] [place] [facility] [address] [id number] [place] [address]- 6545 22 Nov, 2013 [facility] [place] [facility] [address] [id number] [place] [address]- 5898 22 Nov, 2013 [facility] [place] [facility] [address] [id number] [place] [address]- 4679 19 Nov, 2013 [facility] [place] [facility] [address] [id number] [place] [address]- 5987 19 Nov, 2013 [facility] [place] [facility] [address] [id number] [place] [address]- 1034 13 Nov, 2013 [facility] [place] [facility] [address] [id number] [place] [address]- 6290 13 Nov, 2013 [facility] [place] [facility] [address] [id number], [place] [address]- 8301 10 Nov, 2013 [facility] [place] [facility] [address] [id number], [place] [address]- 2543 10 Sep, 2013 [facility] [place] [facility] [address] [id number] [place] [address]- 2548 08 Sep, 2013 [facility] [place] [facility] [address] [id number] [place] [address]- 7936 05 Sep, 2013 [facility] [place] [facility] [address] [id number] [place] [address]- 2549 05 Sep, 2013 [facility] [place] [facility] [address] [id number] [place] [address]- 8790 Nov, [facility] [place] [facility] [address] [id number] [place] [address]- 1128 Nov, [facility] [place] [facility] [address] [id number] [place] [address]- 3660 Oct, [facility] [place] [facility] [address] [id number] [place] [address]- 3473 Oct, [facility] [place] [facility] [address] [id number] [place] [address]- 5054 Oct, [facility] [place] [facility] [address] [id number] [place] [address]- 6556 Oct, [facility] [place] [facility] [address] [id number] [place] [address]- 0821 Oct, [facility] [place] [facility] [address] [id number] [place] [address]- 5029 Sep, [facility] [place] [facility] [address] [id number] [place] [address]- 5658 Sep, [facility] [place] [facility] [address] [id number] [place] [address]- 9397 Sep, [facility] [place] [facility] [address] [id number] [place] [address]- 6308 Sep, [facility] [place] [facility] [address] [id number] [place] [address]- 2025 Aug, [facility] [place] [facility] [address] [id number] [place] [address]- 8616 Aug, [facility] [place] [facility] [address] [id number] [place] [address]- 3068 Aug, [facility] [place] [facility] [address] [id number] [place] [address]- 2521 Aug, [facility] [place] [facility] [address] [id number] [place] [address]- 5861 Aug, [facility] [place] [facility] [address] [id number] [place] [address]- 9911 Aug, [facility] [place] [facility] [address] [id number] [place] [address]- 8711 Aug, [facility] [place] [facility] [address] [id number] [place] [address]- 2079 Aug, [facility] [place] [facility] [address] [id number] [place] [address]- 7818 Aug, [facility] [place] [facility] [address] [id number] [place] [address]- 4403 Aug, [facility] [place] [facility] [address] [id number] [place] [address]- 7328 Aug, [facility] [place] [facility] [address] [id number] [place] [address]- 2715 Aug, [facility] [place] [facility] [address] [id number] [place] [address]- 3088 Aug, [facility] [place] [facility] [address] [id number] [place] [address]- 3944 Aug, [facility] [place] [facility] [address] [id number] [place] [address]- 5784 Aug, [facility] [place] [facility] [address] [id number] [place] [address]- 1690 Aug, [facility] [place] [facility] [address] [id number], [place] [address]- 1823 Aug, [facility] [place] [facility] [address] [id number] [place] [address]- 4373 Aug, [facility] [place] [facility] [address] [id number] [place] [address]- 6490 Aug, [facility] [place] [facility] [address] [id number] [place] [address]- 6763 Aug, [facility] [place] [facility] [address] [id number] [place] [address]- 0429 Aug, [facility] [place] [facility] [address] [id number] [place] [address]- 4234 Aug, [facility] [place] [facility] [address] [id number] [place] [address]- 7213 Aug, [facility] [place] [facility] [address] [id number] [place] [address]- 5868 Aug, [facility] [place] [facility] [address] [id number] [place] [address]- 8082 July, [facility] [place] [facility] [address] [id number] [place] [address]- 2592 July, [facility] [place] [facility] [address] [id number] [place] [address]- 5192 July, [facility] [place] [facility] [address] [id number] [place] [address]- 5082 July, [facility] [place] [facility] [address] [id number] [place] [address]- 1146 July, [facility] [place] [facility] [address] [id number] [place] [address]- 6295 July, [facility] [place] [facility] [address] [id number] [place] [address]- 5243 Jun, [facility] [place] [facility] [address] [id number] [place] [address]- 8138 Jun, [facility] [place] [facility] [address] [id number] [place] [address]- 4765 Jun, [facility] [place] [facility] [address] [id number] [place] [address]- 8218 Jun, [facility] [place] [facility] [address] [id number] [place] [address]- 2571 Jun, [facility] [place] [facility] [address] [id number] [place] [address]- 9379 Jun, [facility] [place] [facility] [address] [id number] [place] [address]- 2031 Jun, [facility] [place] [facility] [address] [id number] [place] [address]- 2255 Jun, [facility] [place] [facility] [address] [id number] [place] [address]- 8366 Jun, [facility] [place] [facility] [address] [id number] [place] [address]- 3657 Jun, [facility] [place] [facility] [address] [id number] [place] [address]- 6497 Jun, [facility] [place] [facility] [address] [id number] [place] [address]- 2309 Jun, [facility] [place] [facility] [address] [id number] [place] [address]- 3496 Jun, [facility] [place] [facility] [address] [id number] [place] [address]- 4509 Jun, [facility] [place] [facility] [address] [id number] [place] [address]- 5895 Jun, [facility] [place] [facility] [address] [id number] [place] [address]- 3443 May, [facility] [place] [facility] [address] [id number] [place] [address]- 2112 May, [facility] [place] [facility] [address] [id number] [place] [address]- 0626 May, [facility] [place] [facility] [address] [id number] [place] [address]- 0133 May, [facility] [place] [facility] [address] [id number] [place] [address]- 8532 May, [facility] [place] [facility] [address] [id number] [place] [address]- 7567 May, [facility] [place] [facility] [address] [id number] [place] [address]- 8106 May, [facility] [place] [facility] [address] [id number] [place] [address]- 1063 May, [facility] [place] [facility] [address] [id number] [place] [address]- 0123 May, [facility] [place] [facility] [address] [id number] [place] [address]- 0213 May, [facility] [place] [facility] [address] [id number] [place] [address]- 3962 May, [facility] [place] [facility] [address] [id number] [place] [address]- 5900 May, [facility] [place] [facility] [address] [id number] [place] [address]- 1834 May, [facility] [place] [facility] [address] [id number] [place] [address]- 3380 May, [facility] [place] [facility] [address] [id number] [place] [address]- 1631 May, [facility] [place] [facility] [address] [id number] [place] [address]- 7266 May, [facility] [place] [facility] [address] [id number] [place] [address]- 9410 May, [facility] [place] [facility] [address] [id number] [place] [address]- 2953 Apr, [facility] [place] [facility] [address] [id number] [place] [address]- 9714 Apr, [facility] [place] [facility] [address] [id number] [place] [address]- 3583 Apr, [facility] [place] [facility] [address] [id number] [place] [address]- 6481 Apr, [facility] [place] [facility] [address] [id number] [place] [address]- 5620 Apr, [facility] [place] [facility] [address] [id number] [place] [address]- 7054 10 Apr, 2013 [facility] [address] [id number] [place] [address]- 9300 Apr, [facility] [address] [id number] [place] [address]- 1739 Apr, [facility] [address] [id number] [place] [address]- 3415 Apr, [facility] [address] [id number] [place] [address]- 8495 Apr, [facility] [address] [id number] [place] [address]- 1691 Apr, [facility] [address] [id number] [place] [address]- 6630 Apr, [facility] [address] [id number] [place] [address]- 1692 Apr, [facility] [address] [id number] [place] [address]- 3573 Apr, [facility] [address] [id number] [place] [address]- 5285 Apr, [facility] [address] [id number] [place] [address]- 6185 Apr, [facility] [address] [id number] [place] [address]- 7530 Mar, [facility] [address] [id number] [place] [address]- 8170 Mar, [facility] [place] [facility] [address] [id number] [place] [address]- 2691 Mar, [facility] [place] [facility] [address] [id number] [place] [address]- 5371 Mar, [facility] [address] [id number] [place] [address]- 1359 Mar, [facility] [address] [id number] [place] [address]- 6902 18 Mar, 2012 [facility] [place] [facility] [address] [id number] [place] [address]- 3186 Mar, [facility] [place] [facility] [address] [id number] [place] [address] Mar, [facility] [place] [facility] [address] [id number] [place] [address] Mar, [facility] [address] [id number] [place] [address] Mar, [facility] [place] [facility] [address] [id number] [place] [address] Mar, [facility] [place] [facility] [address] [facility] [id number] [place] [address] Mar, [facility] [place] [facility] [address] [id number], [place] [address] Mar, [facility] [place] [facility] [address] [id number] [place] [address] Mar, [facility] [place] [facility] [address] [facility] [id number], [place] [address] Mar, [facility] [place] [facility] [address] [facility] [id number], [place] [address] Mar, [facility] [place] [facility] [address] [id number], [place] [address] Mar, [facility] [place] [facility] [address] [id number], [place] [address] Mar, [facility] [place] [facility] [address] [id number], [place] [address] Jan, [facility] [place] [facility] [address] [facility] [id number], [place] [address] Jan, [facility] [place] [facility] [address] [id number], [place] [address] Jan, [facility] [place] [facility] [address] [id number] [place] [address] Jan, [facility] [place] [facility] [address] [id number] [place] [address] Nov, [facility] [place] [facility] [address] [id number] [place] [address] Nov, [facility] [place] [facility] [address] [id number] [place] [address] Nov, [facility] [place] [facility] [address] [id number] [place] [address] Nov, [facility] [place] [facility] [address] [id number] [place] [address] Oct, [facility] [place] [facility] [address] [id number] [place] [address] Oct, [facility] [place] [facility] [address] [id number] [place] [address] Oct, [facility] [place] [facility] [address] [id number] [place] [address] Oct, [facility] [place] [facility] [address] [id number] [place] [address] Sep, [facility] [place] [facility] [address] [id number] [place] [address] Sep, [facility] [place] [facility] [address] [id number] [place] [address] Sep, [facility] [place] [facility] [address] [id number] [place] [address] Sep, [facility] [place] [facility] [address] [id number] [place] [address] Sep, [facility] [place] [facility] [address] [id number] [place] [address] Sep, [facility] [place] [facility] [address] [id number] [place] [address] Sep, [facility] [address] [id number] [place] [address] Sep, [facility] [place] [facility] [address] [id number] [place] [address] Sep, [facility] [address] [id number] [place] [address] Aug, [facility] [place] [facility] [address] [id number] [place] [address] Aug, [facility] [place] [facility] [address] [id number] [place] [address] Aug, [facility] [place] [facility] [address] [id number] [place] [address] Aug, [facility] [place] [facility] [address] [id number] [place] [address] July, [facility] [address] [id number] [place] [address] July, [facility] [address] [id number] [place] [address] July, [facility] [address] [id number] [place] [address] July, [facility] [place] [facility] [address] [id number] [place] [address] July, [facility] [place] [facility] [address] [id number] [place] [address] July, [facility] [place] [facility] [address] [id number] [place] [address] July, [facility] [place] [facility] [address] [id number] [place] [address] Jun, [facility] [place] [facility] [address] [id number] [place] [address] May, [facility] [address] [facility] [id number], [place] [address] May, [facility] [address] [id number], [place] [address] May, [facility] [address] [facility] [id number], [place] [address] May, [facility] [id number] [address] May, [facility] [address] [id number], [place] [address] May, [facility] [address] [id number], [place] [address] May, [facility] [address] [id number], [place] [address] May, IMMUNIZATIONS No Known Immunizations SOCIAL HISTORY [...]
--- OUTSIDE RECORDS SUMMARY | 2017-12-18 19:59 | XMS REPORT ---
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 Name Role Phone MCKENNA HEBERT Unavailable PROBLEMS Type Condition ICD9-CM Code PPA51-FY Code Onset Dates Condition Status SNOMED Code Problem Neuropathy G62.9 Active 566632299 Problem Intra-dialytic hypotension I95.3 Active 548760377 Problem Amput below knee, unilat S88.119A Active 01346031 Problem Cellulitis of right lower extremity L03.115 Active 519385601 Problem Diabetes type 2, controlled E11.9 Active 96774859 Problem Renal failure N19 Active 32660337 Problem 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 Active 3632001 Problem Other chronic pain G89.29 Active 78897649 Problem Seasonal allergic rhinitis due to other allergic trigger J30.89 Active 930473704 Problem Chronic congestive heart failure, unspecified congestive heart failure type I50.9 Active 95207064 Problem Angina pectoris I20.9 Active 079585189 Problem Chronic congestive heart failure, unspecified heart failure type I50.9 Active [id number] ALLERGIES No Information ENCOUNTERS Encounter Location Date Diagnosis [facility] [address] [address] Oct, [facility] [address] [address] 89[address] Sep, [facility] [address] [address] 8528 Sep, [facility] [address] [place] [address]01- 0206 Sep, Other chronic pain G89.29 and Pain in right knee M25.561 [facility] [address] [place] [address] 16866- 1558 Sep, [facility] [address] [facility] [id number] [place] [address] 2[address] Aug, [facility] [address] [facility] [id number] [place] [address]- 6009 Aug, 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 [facility] [address] [id number] [place] [address]- 0160 Aug, [facility] [address] [facility] [id number] [address] 8880 Aug, Diabetes type 2, controlled E11.9 and Acute pain of right knee M25.561 [facility] [address] [place] [address]- 1783 Aug, [facility] [address] [facility] [id number] [place] [address]- 8144 July, [facility] [address] [place] [address]- 9880 16 Jun, 2017 [facility] [address] [facility] [id number] [address]- 9[address] Jun, [facility] [address] [place] [address]- 3759 Jun, Diabetes type 2, controlled E11.9 [facility] [address] [facility] [id number] [place] [address]- 4410 Jun, [facility] [address] [id number] [address]- 4793 May, [facility] [address] [facility] [id number] [place] [address]- 7579 May, [facility] [address] [facility] [id number] [place] [address] [address] May, [facility] [address] [id number] [address]- 7166 May, Chronic congestive heart failure, unspecified congestive heart failure type I50.9 [facility] [address] [place] [address] 11136- 5145 May, Diabetes type 2, controlled E11.9 ; BMI 50.0-59.9, adult Z68.43 ; Chronic congestive heart failure, unspecified heart failure type I50.9 ; Angina pectoris I20.9 ; Seasonal allergic rhinitis due to other allergic trigger J30.89 and Renal failure N19 [facility] [id number] [place] [address] [id number] May, [facility] [id number] [place] [address] 98472- 5381 May, [place] [address] [address]- [address] May, [facility] [id number] [place] [address] 40831- 3232 May, [place] [id number] [place] [address] 39255- 7007 May, [facility] [id number] [place] [address] 98916- 5843 Apr, BMI 50.0-59.9, adult Z68.43 [facility] [id number] [place] [address] 44004- 4366 Apr, BMI 50.0-59.9, adult Z68.43 ; Post-procedural fever R50.82 and Bronchitis J40 [facility] [id number] [place] [address] 22369- 2009 Apr, Chronic congestive heart failure, unspecified congestive heart failure type I50.9 [facility] [id number] [place] [address] 90398- 0452 Jan, [facility] [id number] [place] [address] 43634- 0933 Jan, Diabetes type 2, controlled E11.9 [facility] [id number] [place] [address] 83641- 1720 Jan, Neuropathy G62.9 [facility] [address] [facility] [id number] [address]- 2408 Jan, [facility] [address] [facility] [id number] [place] [address]- 4911 Jan, [facility] [address] [facility] [id number] [address]- 0922 Jan, [facility] [address] [facility] [id number] [address]- 2806 Jan, [facility] [address] [id number] [address]- 3294 Jan, [facility] [address] [id number] [address]- 3569 Dec, [facility] [address] [address]- 6704 Dec, [facility] [address] [address]- 0599 Dec, Diabetes type 2, controlled E11.9 [facility] [address] [address]- 8542 Dec, [facility] [address] [id number] [address]- 0737 Dec, [facility] [address] [address]- 0431 Dec, Chronic congestive heart failure, unspecified congestive heart failure type I50.9 [facility] [address] [facility] [id number] [place] [address]- 3470 Dec, [facility] [address] [id number] [address]- 6137 Dec, [facility] [address] [id number] [address]- 8639 Nov, Chronic congestive heart failure, unspecified congestive heart failure type I50.9 [facility] [address] [facility] [id number] [place] [address]- 5305 Nov, Chronic congestive heart failure, unspecified congestive heart failure type I50.9 [facility] [address] [facility] [id number] [place] [address]- 0429 Nov, [facility] [address] [address]- 6680 Oct, [facility] [address] [facility] [id number] [place] [address]- 7673 Oct, [facility] [address] [place] [address] 45816- 6633 Oct, Chronic congestive heart failure, unspecified congestive heart failure type I50.9 [facility] [address] [address]- 2644 Oct, [facility] [address] [place] [address] 62381- 3942 Oct, Pneumonia of both lungs due to infectious organism, unspecified part of lung J18.9 [facility] [address] [address]- 6824 Oct, [facility] [address] [address]- 1729 Oct, Diabetes type 2, controlled E11.9 [facility] [address] [address]- 0805 Oct, Diabetes type 2, controlled E11.9 [facility] [address] [address]- 1498 Sep, [facility] [address] [address]- 1085 Sep, Neuropathy G62.9 [facility] [address] [id number] [address]- 4332 Aug, Intra-dialytic hypotension I95.3 [facility] [address] [facility] [id number] [place] [address] 2546 July, [facility] [address] [place] [address], [place] [address] 2546 July, [facility] [address] [place] [address] 2546 July, [facility] [id number] [place] [address], [place] [address] 2546 July, Amput below knee, unilat S88.119A [facility] [id number] [place] [address], [place] [address] 2546 May, [facility] [id number] [place] [address], [place] [address] 2546 May, Neuropathy G62.9 [facility] [id number] [place] [address] 82335 2546 May, [facility] [address] [place] [address] 2546 May, [facility] [id number] [place] [address], [place] [address]- 0407 May, [facility] [address] [place] [address]- 1234 May, [facility] [address] [address]- 7916 May, Neuropathy G62.9 [facility] [address] [place] [address] 2544 Apr, [facility] [id number] [place] [address], [place] [address] 2546 Apr, [facility] [address] [place] [address] 2546 Apr, Diabetes type 2, controlled E11.9 and Renal failure N19 [facility] [address] [address] Apr, [facility] [address] [address]- 7463 Apr, [facility] [address] [address]- 4127 Mar, [facility] [id number] [place] [address] 78077- 0645 Mar, [facility] [id number] [place] [address] 85456- 1620 Mar, [facility] [id number] [place] [address] 02987- 3033 Mar, [facility] [id number] [place] [address] 20901- 1296 Mar, [facility] [id number] [place] [address] 42101- 1715 Jan, Localized edema R60.0 [facility] [address] [address]- 3733 Jan, [facility] [id number] [place] [address] 68510- 6980 Jan, [facility] [address] [address]- 6375 Jan, [facility] [id number] [place] [address] 04548- 3012 Jan, [facility] [address] [address]- 6561 Jan, [facility] [address] [place] [address] 08366- 2845 Jan, [facility] [address] [address]- 4424 Dec, Diabetes type 2, controlled E11.9 and Chronic nonintractable headache, unspecified headache type R51 [facility] [address] [place] [address] 19687- 2162 Dec, [facility] [id number] [place] [address] 38960- 0852 Dec, [facility] [address] [place] [address] 69227- 8958 Nov, [facility] [id number] [place] [address] 57432- 0188 Nov, [facility] [id number] [place] [address] 00948- 3772 Oct, [facility] [id number] [place] [address] 57507- 3083 Oct, Migraine without status migrainosus, not intractable, unspecified migraine type G43.909 [facility] [id number] [place] [address] 31947- 7760 Oct, [facility] [id number] [place] [address] 33807- 1393 Sep, Amput below knee, unilat S88.119A and Neuropathy G62.9 [facility] [id number] [place] [address] 65616- 7860 Sep, [facility] [id number] [place] [address] 12943- 7664 Sep, [facility] [id number] [place] [address] 65574- 3571 Sep, [facility] [id number] [place] [address] 50823- 5217 Aug, [facility] [id number] [place] [address] 19029- 2121 Aug, [facility] [address] [place] [address] 67521- 2331 Aug, Diabetes type 2, controlled E11.9 [facility] [id number] [place] [address], [place] [address]- 7275 07 Aug, 2015 [facility] [address] [id number] [place] [address]- 7181 Jun, Diabetes type 2, controlled E11.9 and Neuropathy G62.9 [facility] [address] [id number] [place] [address]- 1756 14 Jul, 2015 [facility] [address] [id number] [place] [address]- 4369 Jun, [facility] [address] [id number] [place] [address]- 0466 Jun, [facility] [address] [id number] [place] [address]- 0319 Jun, [facility] [address] [id number] [place] [address]- 0447 May, [facility] [address] [id number] [place] [address]- 3882 May, Diabetes type 2, controlled E11.9 [facility] [address] [id number] [place] [address]- 1645 May, [facility] [address] [id number] [place] [address]- 7301 May, [facility] [address] [id number] [place] [address]- 1455 May, [facility] [address] [id number] [place] [address]- 1497 May, [facility] [address] [id number] [place] [address]- 9443 May, [facility] [address] [id number] [place] [address]- 2424 May, [facility] [address] [id number] [place] [address]- 0620 May, [facility] [address] [address]- 8046 15 May, 2015 COPD (chronic obstructive pulmonary disease) J44.9 [facility] [address] [address]- 0581 15 May, 2015 [facility] [address] [address]- 5416 May, [facility] [address] [address]- 3760 May, [facility] [address] [address]- 1641 May, [facility] [address] [address]- 4402 May, [facility] [address] [address]- 6697 May, Renal failure N19 and Pneumonia, organism unspecified, unspecified laterality, unspecified part of lung J18.9 [facility] [address] [address]- 2452 Apr, [facility] [address] [address]- 2970 Apr, [facility] [address] [address]- 4229 Apr, [facility] [address] [address]- 0593 Apr, Diabetes mellitus 250.00 [facility] [address] [address]- 9216 Apr, [facility] [address] [address]- 0021 Apr, [facility] [address] [id number] [address]- 3011 Apr, [facility] [address] [place] [address]- 0244 07 Apr, 2015 [facility] [place] [facility] [address] [id number] [place] [address]- 9684 31 Mar, 2014 [facility] [place] [facility] [address] [id number] [place] [address]- 4051 28 Mar, 2015 [facility] [place] [facility] [address] [id number] [place] [address], [place] [address]- 4436 23 Mar, 2014 [facility] [place] [facility] [address] [id number] [place] [address]- 4500 16 Mar, 2015 Renal failure N19 [facility] [place] [facility] [address] [facility] [id number] [place] [address], [place] [address]- 6632 14 Mar, 2015 [facility] [place] [facility] [address] [facility] [id number] [place] [address]- 0616 07 Mar, 2015 [facility] [place] [facility] [address] [place] [address], [place] [address]- 0507 04 Mar, 2015 [facility] [place] [facility] [address] [facility] [id number] [place] [address]- 9866 24 Jan, 2015 [facility] [place] [facility] [address] [place] [address]- 5767 18 Jan, 2015 [facility] [place] [facility] [address] [id number] [place] [address]- 3971 17 Jan, 2015 [facility] [place] [facility] [address] [facility] [id number] [place] [address]- 0255 Jan, [facility] [place] [facility] [address] [facility] [id number] [place] [address]- 7325 Dec, [facility] [place] [facility] [address] [facility] [id number] [place] [address]- 8702 Dec, [facility] [place] [facility] [address] [facility] [id number] [place] [address] 2546 Dec, [facility] [place] [facility] [address] [facility] [id number] [place] 2320 Nov, [facility] [address] [facility] [id number] [place] [address]- 5465 Nov, [facility] [address] [place] [address]- 3341 Nov, [facility] [address] [id number] [place] [address]- 2748 Oct, [facility] [address] [facility] [id number] [place] [address]- 6682 Oct, [facility] [address] [facility] [id number] [address]- 2064 Oct, Renal failure 586 and Obesity 278.00 [facility] [address] [facility] [id number] [address]- 7554 Oct, [facility] [address] [address]- 6586 Oct, [facility] [address] [address]- 9155 Oct, [facility] [address] [address]- 8762 Sep, [facility] [address] [address]- 2694 Sep, [facility] [id number] [address]- 7240 Sep, Diabetes mellitus 250.00 and Congestive heart failure, unspecified 428.0 [facility] [address] [id number] [address]- 5665 Aug, [facility] [address] [address]- 1072 Aug, [facility] [address] [id number] [address]- 6420 Aug, [facility] [address] [address]- 2266 July, [facility] [address] [id number] [place] [address]- 8334 July, [facility] [address] [id number] [place] [address]- 4948 July, Heart murmur, systolic 785.2 [facility] [address] [id number] [place] [address]- 3076 July, [facility] [address] [id number] [place] [address]- 0293 July, [facility] [address] [id number] [place] [address]- 6524 Jun, [facility] [address] [id number] [place] [address]- 6655 Jun, [facility] [address] [id number] [place] [address] May, [facility] [address] [id number] [place] [address] 23 May, 2014 [facility] [address] [id number] [place] [address] May, [facility] [address] [id number] [place] [address] 18 May, 2014 [facility] [address] [id number] [place] [address] 16 May, 2014 [facility] [address] [id number] [place] [address] 16 May, 2014 [facility] [address] [id number] [place] [address] 10 May, 2014 [facility] [address] [id number] [place] [address] 10 May, 2014 [facility] [address] [id number] [place] [address] 09 May, 2014 [facility] [place] [facility] [address] [id number] [place] [address] May, 2014 [facility] [place] [facility] [address] [id number] [place] [address] May, 2014 [facility] [place] [facility] [address] [facility] [id number] [place] [address] May, 2014 [facility] [place] [facility] [address] [facility] [id number] [place] [address] May, 2014 [facility] [place] [facility] [address] [id number] [place] [address]- [address] May, 2014 [facility] [place] [facility] [address] [id number] [place] [address] May, 2014 [facility] [place] [facility] [address] [place] [id number] [place] [address] May, 2014 [facility] [place] [facility] [address] [facility] [id number] [place] [address]- [address] May, 2014 [facility] [place] [facility] [address] [facility] [id number] [place] [address]- [address] May, 2014 [facility] [place] [facility] [address] [facility] [id number] [place] [address]- [address] May, 2014 [facility] [place] [facility] [address] [facility] [id number] [place] [address] May, 2014 [facility] [place] [facility] [address] [facility] [id number] [place] [address]- [address] 16 May, 2014 [facility] [place] [facility] [address] [facility] [id number] [place] [address] 16 May, 2014 [facility] [place] [facility] [address] [facility] [id number] [place] [address] May, 2014 [facility] [place] [facility] [address] [facility] [id number] [place] [address] May, 2014 [facility] [place] [facility] [address] [facility] [id number] [place] [address] May, [facility] [address] [id number] [place] [address] May, [facility] [place] [facility] [address] [id number] [place] [address] Apr, [facility] [address] [id number] [place] [address]- [address] Apr, [facility] [place] [facility] [address] [id number] [place] [address] Apr, [facility] [address] [id number] [place] [address] Apr, [facility] [address] [id number] [place] [address]85 Apr, [facility] [address] [id number] [place] [address] 0263 Apr, [facility] [address] [id number] [place] [address] 1519 Apr, [facility] [address] [id number] [place] [address] 0409 Apr, [facility] [address] [id number] [place] [address] Mar, [facility] [place] [facility] [address] [id number] [place] [address] 8872 Mar, [facility] [place] [facility] [address] [id number] [place] [address] 8325 Mar, [facility] [place] [facility] [address] [id number] [place] [address] 1563 Mar, [facility] [place] [facility] [address] [id number] [place] [address] 4206 Mar, [facility] [place] [facility] [address] [id number] [place] [address]- 9785 Mar, [facility] [place] [facility] [address] [id number] [place] [address]- 1656 Mar, [facility] [place] [facility] [address] [id number] [place] [address] 1913 Mar, [facility] [place] [facility] [address] [id number] [place] [address]- 3713 Mar, [facility] [place] [facility] [address] [id number] [place] [address]- 7596 Mar, [facility] [place] [facility] [address] [id number] [place] [address]- 7937 Mar, [facility] [place] [facility] [address] [id number] [place] [address]- 2644 Mar, [facility] [place] [facility] [address] [id number] [place] [address]- 0942 Mar, [facility] [place] [facility] [address] [id number] [place] [address]- 9604 Mar, [facility] [place] [facility] [address] [id number] [place] [address]- 1574 Mar, [facility] [place] [facility] [address] [id number] [place] [address]- 5804 Mar, [facility] [place] [facility] [address] [id number] [place] [address]- 2098 Mar, [facility] [place] [facility] [address] [id number] [place] [address]- 1581 Mar, [facility] [place] [facility] [address] [id number] [place] [address]- 6996 Mar, [facility] [place] [facility] [address] [id number] [place] [address]- 8673 Mar, [facility] [place] [facility] [address] [id number] [place] [address]- 3353 Mar, [facility] [place] [facility] [address] [id number] [place] [address]- 6857 Mar, [facility] [place] [facility] [address] [id number] [place] [address]- 5853 Jan, [facility] [place] [facility] [address] [id number] [place] [address]- 4675 Jan, [facility] [place] [facility] [address] [id number] [place] [address]- 9647 Jan, [facility] [place] [facility] [address] [id number] [place] [address]- 5186 Jan, [facility] [place] [facility] [address] [id number] [place] [address]- 7497 Jan, [facility] [place] [facility] [address] [id number] [place] [address]- 3560 Jan, [facility] [place] [facility] [address] [id number] [place] [address]- 8658 Jan, [facility] [place] [facility] [address] [id number] [place] [address]- 1607 Jan, [facility] [place] [facility] [address] [id number] [place] [address]- 3388 Jan, [facility] [place] [facility] [address] [facility] [id number] [place] [address]- 7020 Jan, [facility] [place] [facility] [address] [id number] [place] [address]- 0322 Jan, [facility] [place] [facility] [address] [id number] [place] [address]- 5841 Jan, [facility] [place] [facility] [address] [id number] [place] [address]- 3185 Jan, [facility] [place] [facility] [address] [id number] [place] [address]- 8127 Jan, [facility] [place] [facility] [address] [id number] [place] [address]- 0725 Jan, [facility] [place] [facility] [address] [id number] [place] [address]- 5501 Jan, [facility] [place] [facility] [address] [id number] [place] [address]- 2772 Jan, [facility] [place] [facility] [address] [id number] [place] [address]- 7548 Jan, [facility] [place] [facility] [address] [id number] [place] [address]- 4014 Jan, [facility] [place] [facility] [address] [id number] [place] [address]- 2795 Jan, [facility] [place] [facility] [address] [id number] [place] [address]- 9050 Dec, [facility] [place] [facility] [address] [id number] [place] [address]- 4366 Dec, [facility] [place] [facility] [address] [id number] [place] [address]- 7269 Dec, [facility] [place] [facility] [address] [id number] [place] [address]- 0388 Dec, [facility] [place] [facility] [address] [id number] [place] [address]- 6198 Dec, [facility] [place] [facility] [address] [id number] [place] [address]- 9637 Dec, [facility] [place] [facility] [address] [id number] [place] [address]- 2446 14 Dec, 2013 [facility] [place] [facility] [address] [id number] [place] [address]- 9626 10 Dec, 2013 [facility] [place] [facility] [address] [id number] [place] [address]- 4720 10 Dec, 2013 [facility] [place] [facility] [address] [id number] [place] [address]- 7213 08 Dec, 2013 [facility] [place] [facility] [address] [id number] [place] [address]- 2849 08 Dec, 2013 [facility] [place] [facility] [address] [id number] [place] [address]- 7413 Dec, [facility] [place] [facility] [address] [id number] [place] [address]- 9329 Dec, [facility] [place] [facility] [address] [id number] [place] [address]- 2785 Dec, [facility] [place] [facility] [address] [id number] [place] [address]- 3740 Dec, [facility] [place] [facility] [address] [id number] [place] [address]- 4548 22 Nov, 2013 [facility] [place] [facility] [address] [id number] [place] [address]- 9544 22 Nov, 2013 [facility] [place] [facility] [address] [id number] [place] [address]- 7434 19 Nov, 2013 [facility] [place] [facility] [address] [id number] [place] [address]- 2478 19 Nov, 2013 [facility] [place] [facility] [address] [id number] [place] [address]- 8327 13 Nov, 2013 [facility] [place] [facility] [address] [id number] [place] [address]- 5359 13 Nov, 2013 [facility] [place] [facility] [address] [id number] [place] [address]- 6800 10 Nov, 2013 [facility] [place] [facility] [address] [id number] [place] [address]- 2549 10 Sep, 2013 [facility] [place] [facility] [address] [id number] [place] [address]- 2541 08 Sep, 2013 [facility] [place] [facility] [address] [id number] [place] [address]- 7872 05 Sep, 2013 [facility] [place] [facility] [address] [id number] [place] [address]- 2543 05 Sep, 2013 [facility] [place] [facility] [address] [id number] [place] [address]- 0674 Nov, [facility] [place] [facility] [address] [id number] [place] [address]- 1218 Nov, [facility] [place] [facility] [address] [id number] [place] [address]- 3228 Oct, [facility] [place] [facility] [address] [id number] [place] [address]- 1338 Oct, [facility] [place] [facility] [address] [id number] [place] [address]- 2006 Oct, [facility] [place] [facility] [address] [id number] [place] [address]- 0005 Oct, [facility] [place] [facility] [address] [id number] [place] [address]- 8596 Oct, [facility] [place] [facility] [address] [id number] [place] [address]- 0185 Sep, [facility] [place] [facility] [address] [id number] [place] [address]- 8451 Sep, [facility] [place] [facility] [address] [id number] [place] [address]- 6708 Sep, [facility] [place] [facility] [address] [id number] [place] [address]- 0818 Sep, [facility] [place] [facility] [address] [id number] [place] [address]- 1506 Aug, [facility] [place] [facility] [address] [id number] [place] [address]- 6467 Aug, [facility] [place] [facility] [address] [id number] [place] [address]- 5027 Aug, [facility] [place] [facility] [address] [id number] [place] [address]- 1026 Aug, [facility] [place] [facility] [address] [id number] [place] [address]- 2822 Aug, [facility] [place] [facility] [address] [id number] [place] [address]- 4467 Aug, [facility] [place] [facility] [address] [id number] [place] [address]- 6167 Aug, [facility] [place] [facility] [address] [id number] [place] [address]- 5523 Aug, [facility] [place] [facility] [address] [id number] [place] [address]- 4361 Aug, [facility] [place] [facility] [address] [id number] [place] [address]- 8210 Aug, [facility] [place] [facility] [address] [id number] [place] [address]- 6164 Aug, [facility] [place] [facility] [address] [id number] [place] [address]- 5769 Aug, [facility] [place] [facility] [address] [id number] [place] [address]- 7299 Aug, [facility] [place] [facility] [address] [id number] [place] [address]- 4527 Aug, [facility] [place] [facility] [address] [id number] [place] [address]- 3008 Aug, [facility] [place] [facility] [address] [id number] [place] [address]- 9358 Aug, [facility] [place] [facility] [address] [id number] [place] [address]- 1649 Aug, [facility] [place] [facility] [address] [id number] [place] [address]- 8071 Aug, [facility] [place] [facility] [address] [id number] [place] [address]- 8020 Aug, [facility] [place] [facility] [address] [id number] [place] [address]- 3237 Aug, [facility] [place] [facility] [address] [id number] [place] [address]- 7098 Aug, [facility] [place] [facility] [address] [id number] [place] [address]- 7933 Aug, [facility] [place] [facility] [address] [id number] [place] [address]- 4670 Aug, [facility] [place] [facility] [address] [id number] [place] [address]- 5236 Aug, [facility] [place] [facility] [address] [id number] [place] [address]- 3564 July, [facility] [place] [facility] [address] [id number] [place] [address]- 0810 July, [facility] [place] [facility] [address] [id number] [place] [address]- 4752 July, [facility] [place] [facility] [address] [id number] [place] [address]- 3030 July, [facility] [place] [facility] [address] [id number] [place] [address]- 1149 July, [facility] [place] [facility] [address] [id number] [place] [address]- 6891 July, [facility] [place] [facility] [address] [id number] [place] [address]- 3407 Jun, [facility] [place] [facility] [address] [id number] [place] [address]- 0022 Jun, [facility] [place] [facility] [address] [id number] [place] [address]- 8337 Jun, [facility] [place] [facility] [address] [id number] [place] [address]- 5728 Jun, [facility] [place] [facility] [address] [id number] [place] [address]- 8832 Jun, [facility] [place] [facility] [address] [id number] [place] [address]- 1577 Jun, [facility] [place] [facility] [address] [id number] [place] [address]- 2407 Jun, [facility] [place] [facility] [address] [id number] [place] [address]- 0690 Jun, [facility] [place] [facility] [address] [id number] [place] [address]- 6576 Jun, [facility] [place] [facility] [address] [id number] [place] [address]- 4072 Jun, [facility] [place] [facility] [address] [id number] [place] [address]- 3779 Jun, [facility] [place] [facility] [address] [id number] [place] [address]- 5897 Jun, [facility] [place] [facility] [address] [id number] [place] [address]- 1629 Jun, [facility] [place] [facility] [address] [id number] [place] [address]- 7616 Jun, [facility] [place] [facility] [address] [id number] [place] [address]- 3672 Jun, [facility] [place] [facility] [address] [id number] [place] [address]- 1155 May, [facility] [place] [facility] [address] [id number] [place] [address]- 6539 May, [facility] [place] [facility] [address] [id number] [place] [address]- 5529 May, [facility] [place] [facility] [address] [id number] [place] [address]- 9182 May, [facility] [place] [facility] [address] [id number] [place] [address]- 9731 May, [facility] [place] [facility] [address] [id number] [place] [address]- 8889 May, [facility] [place] [facility] [address] [id number] [place] [address]- 6253 May, [facility] [place] [facility] [address] [id number] [place] [address]- 2543 May, [facility] [place] [facility] [address] [id number] [place] [address]- 5414 May, [facility] [place] [facility] [address] [id number] [place] [address]- 9422 May, [facility] [place] [facility] [address] [id number] [place] [address]- 3668 May, [facility] [place] [facility] [address] [id number] [place] [address]- 9207 May, [facility] [place] [facility] [address] [id number] [place] [address]- 6325 May, [facility] [place] [facility] [address] [id number] [place] [address]- 9005 May, [facility] [place] [facility] [address] [id number] [place] [address]- 9017 May, [facility] [place] [facility] [address] [id number] [place] [address]- 0044 May, [facility] [place] [facility] [address] [id number] [place] [address]- 6256 May, [facility] [place] [facility] [address] [id number] [place] [address]- 7026 Apr, [facility] [place] [facility] [address] [id number] [place] [address]- 3473 Apr, [facility] [place] [facility] [address] [id number] [place] [address]- 7377 Apr, [facility] [place] [facility] [address] [id number] [place] [address]- 2140 Apr, [facility] [place] [facility] [address] [id number] [place] [address]- 6300 Apr, [facility] [place] [facility] [address] [id number] [place] [address]- 0507 10 Apr, 2013 [facility] [address] [id number] [place] [address]- 0448 Apr, [facility] [address] [id number] [place] [address]- 9776 Apr, [facility] [address] [id number] [place] [address]- 0645 Apr, [facility] [address] [id number] [place] [address]- 5575 Apr, [facility] [address] [id number] [place] [address]- 3810 Apr, [facility] [address] [id number] [place] [address]- 3826 Apr, [facility] [address] [id number] [place] [address]- 5221 Apr, [facility] [address] [id number] [place] [address]- 4965 Apr, [facility] [address] [id number] [place] [address]- 0168 Apr, [facility] [address] [id number] [place] [address]- 4719 Apr, [facility] [address] [id number] [place] [address]- 8705 Mar, [facility] [address] [id number] [place] [address]- 6914 Mar, [facility] [place] [facility] [address] [id number] [place] [address]- 6446 Mar, [facility] [place] [facility] [address] [id number] [place] [address]- 2988 Mar, [facility] [address] [id number] [place] [address]- 1119 Mar, [facility] [address] [id number] [place] [address]- 8095 18 Mar, 2012 [facility] [place] [facility] [address] [id number] [place] [address]- 5586 Mar, [facility] [place] [facility] [address] [id number] [place] [address]- 5021 Mar, [facility] [place] [facility] [address] [id number] [place] [address]- 4802 Mar, [facility] [address] [id number] [place] [address]- 5323 Mar, [facility] [place] [facility] [address] [id number] [place] [address]- 0056 Mar, [facility] [place] [facility] [address] [facility] [id number] [place] [address]- 0271 Mar, [facility] [place] [facility] [address] [id number] [place] [address]- 4654 Mar, [facility] [place] [facility] [address] [id number] [place] [address]- 4464 Mar, [facility] [place] [facility] [address] [facility] [id number] [place] [address]- 7832 Mar, [facility] [place] [facility] [address] [facility] [id number] [place] [address]- 5464 Mar, [facility] [place] [facility] [address] [id number] [place] [address]- 8749 Mar, [facility] [place] [facility] [address] [id number] [place] [address]- 5696 Mar, [facility] [place] [facility] [address] [id number] [place] [address]- 3786 Jan, [facility] [place] [facility] [address] [facility] [id number] [place] [address]- 0056 Jan, [facility] [place] [facility] [address] [id number] [place] [address]- 4339 Jan, [facility] [place] [facility] [address] [id number] [place] [address]- 4802 Jan, [facility] [place] [facility] [address] [id number] [place] [address]- 8397 Nov, [facility] [place] [facility] [address] [id number] [place] [address]- 7289 Nov, [facility] [place] [facility] [address] [id number] [place] [address]- 5537 Nov, [facility] [place] [facility] [address] [id number] [place] [address]- 4233 Nov, [facility] [place] [facility] [address] [id number] [place] [address]- 1886 Oct, [facility] [place] [facility] [address] [id number] [place] [address]- 3677 Oct, [facility] [place] [facility] [address] [id number] [place] [address]- 7546 Oct, [facility] [place] [facility] [address] [id number] [place] [address] Oct, [facility] [place] [facility] [address] [id number] [place] [address] Sep, [facility] [place] [facility] [address] [id number] [place] [address] Sep, [facility] [place] [facility] [address] [id number] [place] [address] Sep, [facility] [place] [facility] [address] [id number] [place] [address] Sep, [facility] [place] [facility] [address] [id number] [place] [address] Sep, [facility] [place] [facility] [address] [id number] [place] [address] Sep, [facility] [place] [facility] [address] [id number] [place] [address] Sep, [facility] [address] [id number] [place] [address] Sep, [facility] [place] [facility] [address] [id number] [place] [address] Sep, [facility] [address] [id number] [place] [address] Aug, [facility] [place] [facility] [address] [id number] [place] [address] Aug, [facility] [place] [facility] [address] [id number] [place] [address] Aug, [facility] [place] [facility] [address] [id number] [place] [address] Aug, [facility] [place] [facility] [address] [id number] [place] [address] July, [facility] [address] [id number] [place] [address] July, [facility] [address] [id number] [place] [address] July, [facility] [address] [id number] [place] [address] July, [facility] [place] [facility] [address] [id number] [place] [address] July, [facility] [place] [facility] [address] [id number] [place] [address] July, [facility] [place] [facility] [address] [id number] [place] [address] July, [facility] [place] [facility] [address] [id number] [place] [address] Jun, [facility] [place] [facility] [address] [id number] [place] [address] May, [facility] [address] [facility] [id number] [place] [address] May, [facility] [address] [facility] [id number] [place] [address] May, [facility] [address] [facility] [id number] [place] [address] May, [facility] [address] [id number] [place] [address] May, [facility] [address] [facility] [id number] [place] [address] May, [facility] [address] [id number] [place] [address] May, [facility] [address] [id number] [place] [address] May, IMMUNIZATIONS No Known Immunizations SOCIAL HISTORY Never Assessed REASON FOR VISIT Requests return call PLAN OF CARE VITAL SIGNS MEDICATIONS Medication Instructions Dosage Frequency Start Date End Date Duration Status Fluticasone Propionate 50 MCG/ACT Nasally Once a day 1 spray in each nostril 24h 30 days Active RESULTS No Results PROCEDURES [...]
--- OUTSIDE RECORDS SUMMARY | 2017-12-18 20:00 | XMS REPORT ---
Author Author MCKENNA HEBERT Organization [facility] Address [address] [place] [address] Care Team Providers Care Banner Painter Name Role Phone MCKENNA HEBERT Unavailable PROBLEMS Type Condition ICD9-CM Code LBW04-YD Code Onset Dates Condition Status SNOMED Code Problem Neuropathy G62.9 Active 922246226 Problem Intra-dialytic hypotension I95.3 Active 071358303 Problem Amput below knee, unilat S88.119A Active 30956761 Problem Cellulitis of right lower extremity L03.115 Active 456003440 Problem Diabetes type 2, controlled E11.9 Active 79782157 Problem Renal failure N19 Active 73178496 Problem 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 Active 4390056 Problem Other chronic pain G89.29 Active 29026580 Problem Seasonal allergic rhinitis due to other allergic trigger J30.89 Active 087032491 Problem Chronic congestive heart failure, unspecified congestive heart failure type I50.9 Active 46711925 Problem Angina pectoris I20.9 Active 138641130 Problem Chronic congestive heart failure, unspecified heart failure type I50.9 Active 16756698 ALLERGIES No Information ENCOUNTERS Encounter Location Date Diagnosis [facility] [address] [address] Oct, [facility] [address], [place] [address] Sep, [facility] [address], [place] [address] 6261 Sep, [facility] [address] [place] [address]101[address]- 9507 Sep, Other chronic pain G89.29 and Pain in right knee M25.561 [facility] [address] [place] [address] 33641- 9953 Sep, [facility] [address] [facility] [id number] [place] [address] 4717 Aug, [facility] [address] [facility] [id number] [place] [address]- 6396 Aug, 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 [facility] [address] [id number] [place] [address]- 1557 Aug, [facility] [address] [facility] [id number] [address] 7[address] Aug, Diabetes type 2, controlled E11.9 and Acute pain of right knee M25.561 [facility] [address] [place] [address] 0358 Aug, [facility] [address] [facility] [id number] [place] [address]- 3351 July, [facility] [address] [place] [address]- 4542 16 Jun, 2017 [facility] [address] [facility] [id number], [place] [address] 8127 Jun, [facility] [address] [place] [address]- 1326 Jun, Diabetes type 2, controlled E11.9 [facility] [address] [facility] [id number], [place] [address]- 1409 Jun, [facility] [address] [id number] [address] 6137 May, [facility] [address] [facility] [id number] [place] [address]- 5087 May, [facility] [address] [facility] [id number] [address] [address] May, [facility] [address] [id number] [address]- 9728 May, Chronic congestive heart failure, unspecified congestive heart failure type I50.9 [facility] [address] [place] [address] 64436- 6943 May, Diabetes type 2, controlled E11.9 ; BMI 50.0-59.9, adult Z68.43 ; Chronic congestive heart failure, unspecified heart failure type I50.9 ; Angina pectoris I20.9 ; Seasonal allergic rhinitis due to other allergic trigger J30.89 and Renal failure N19 [facility] [id number] [place] [address] [id number] May, [facility] [id number] [place] [address] 91570- 6420 May, [place] [address] [address] May, [facility] [id number] [place] [address] 64774- 2774 May, [place] [id number] [place] [address] 19976- 0312 May, [facility] [id number] [place] [address] 62598- 0646 Apr, BMI 50.0-59.9, adult Z68.43 [facility] [id number] [place] [address] 33686- 7861 Apr, BMI 50.0-59.9, adult Z68.43 ; Post-procedural fever R50.82 and Bronchitis J40 [facility] [id number] [place] [address] 81207- 3883 Apr, Chronic congestive heart failure, unspecified congestive heart failure type I50.9 [facility] [id number] [place] [address] 97300- 9317 Jan, [facility] [id number] [place] [address] 96816- 7151 Jan, Diabetes type 2, controlled E11.9 [facility] [id number] [place] [address] 71937- 9156 Jan, Neuropathy G62.9 [facility] [address] [facility] [id number], [place] [address]- 2144 Jan, [facility] [address] [facility] [id number], [place] [address]- 9883 Jan, [facility] [address] [facility] [id number], [place] [address] 5184 Jan, [facility] [address] [facility] [id number], [place] [address]- 9511 Jan, [facility] [address] [id number], [place] [address]- 1254 Jan, [facility] [address] [id number], [place] [address]- 7670 Dec, [facility] [address], [place] [address]- 1038 Dec, [facility] [address], [place] [address]- 5153 Dec, Diabetes type 2, controlled E11.9 [facility] [address], [place] [address]- 4966 Dec, [facility] [address] [id number], [place] [address]- 2009 Dec, [facility] [address], [place] [address]- 7050 Dec, Chronic congestive heart failure, unspecified congestive heart failure type I50.9 [facility] [address] [facility] [id number], [place] [address]- 6734 Dec, [facility] [address] [id number], [place] [address]- 7121 Dec, [facility] [address] [id number], [place] [address]- 0831 Nov, Chronic congestive heart failure, unspecified congestive heart failure type I50.9 [facility] [address] [facility] [id number], [place] [address]- 3268 Nov, Chronic congestive heart failure, unspecified congestive heart failure type I50.9 [facility] [address] [facility] [id number], [place] [address]- 7423 Nov, [facility] [address], [place] [address]- 7540 Oct, [facility] [address] [facility] [id number], [place] [address]- 7912 Oct, [facility] [id number] [place] [address] 58980- 1514 Oct, Chronic congestive heart failure, unspecified congestive heart failure type I50.9 [facility] [address], [place] [address]- 2296 Oct, [facility] [address] [place] [address] 56293- 4066 Oct, Pneumonia of both lungs due to infectious organism, unspecified part of lung J18.9 [facility] [address], [place] [address]- 6576 Oct, [facility] [address], [place] [address]- 4943 Oct, Diabetes type 2, controlled E11.9 [facility] [address], [place] [address]- 9622 Oct, Diabetes type 2, controlled E11.9 [facility] [address], [place] [address]- 8318 Sep, [facility] [address], [place] [address]- 9939 Sep, Neuropathy G62.9 [facility] [id number], [place] [address]- 7735 Aug, Intra-dialytic hypotension I95.3 [facility] [address] [facility] [id number] [place] [address] 2546 July, [facility] [id number] [place] [address], [place] [address] 2546 July, [facility] [address] [place] [address] 2546 July, [facility] [id number] [place] [address], [place] [address] 2546 July, Amput below knee, unilat S88.119A [facility] [id number] [place] [address], [place] [address] 2546 May, [facility] [id number] [place] [address], [place] [address] 2546 May, Neuropathy G62.9 [facility] [id number] [place] [address] 08976 2546 May, [facility] [address] [place] [address] 2546 May, [facility] [id number] [place] [address], [place] [address]- 3953 May, [facility] [address] [place] [address]- 3150 May, [facility] [address], [place] [address]- 1506 May, Neuropathy G62.9 [facility] [address] [place] [address] 2547 Apr, [facility] [id number] [place] [address], [place] [address] 2546 Apr, [facility] [address] [place] [address] 2546 Apr, Diabetes type 2, controlled E11.9 and Renal failure N19 [facility] [address], [place] [address]7114 Apr, [facility] [address], [place] [address]- 9710 Apr, [facility] [address], [place] [address]- 5924 Mar, [facility] [id number] [place] [address] 39998- 3685 Mar, [facility] [id number] [place] [address] 78702- 5318 Mar, [facility] [id number] [place] [address] 32673- 4396 Mar, [facility] [id number] [place] [address] 52216- 2441 Mar, [facility] [id number] [place] [address] 19738- 6359 Jan, Localized edema R60.0 [facility] [id number], [place] [address]- 8548 Jan, [facility] [id number] [place] [address] 37915- 8391 Jan, [facility] [id number], [place] [address]- 9434 Jan, [facility] [id number] [place] [address] 37927- 5238 Jan, [facility] [address], [place] [address]- 7655 Jan, [facility] [id number] [place] [address] 21068- 3014 Jan, [facility] [address], [place] [address]- 5743 Dec, Diabetes type 2, controlled E11.9 and Chronic nonintractable headache, unspecified headache type R51 [facility] [id number] [place] [address] 99546- 0507 Dec, [facility] [id number] [place] [address] 37487- 3854 Dec, [facility] [id number] [place] [address] 46685- 0706 Nov, [facility] [id number] [place] [address] 17950- 7671 Nov, [facility] [id number] [place] [address] 19550- 6171 Oct, [facility] [id number] [place] [address] 01847- 4067 Oct, Migraine without status migrainosus, not intractable, unspecified migraine type G43.909 [facility] [id number] [place] [address] 88021- 7156 Oct, [facility] [id number] [place] [address] 77887- 0550 Sep, Amput below knee, unilat S88.119A and Neuropathy G62.9 [facility] [id number] [place] [address] 07521- 9734 Sep, [facility] [id number] [place] [address] 71145- 8727 Sep, [facility] [id number] [place] [address] 79311- 5506 Sep, [facility] [id number] [place] [address] 41448- 4148 Aug, [facility] [id number] [place] [address] 29648- 3162 Aug, [facility] [id number] [place] [address] 85347- 2589 Aug, Diabetes type 2, controlled E11.9 [facility] [id number] [place] [address], [place] [address]- 4510 07 Aug, 2015 [facility] [address] [id number] [place] [address]- 3343 Jun, Diabetes type 2, controlled E11.9 and Neuropathy G62.9 [facility] [address] [id number] [place] [address]- 8252 14 Jul, 2015 [facility] [address] [id number] [place] [address]- 1270 Jun, [facility] [address] [id number] [place] [address]- 4980 Jun, [facility] [address] [id number] [place] [address]- 2809 Jun, [facility] [address] [id number] [place] [address]- 3799 May, [facility] [address] [id number] [place] [address]- 6203 May, Diabetes type 2, controlled E11.9 [facility] [address] [id number] [place] [address]- 0951 May, [facility] [address] [id number] [place] [address]- 8044 May, [facility] [address] [id number] [place] [address]- 5006 May, [facility] [address] [id number] [place] [address]- 6213 May, [facility] [address] [id number] [place] [address]- 2235 May, [facility] [address] [id number] [place] [address]- 9090 May, [facility] [address] [id number] [place] [address]- 3822 May, [facility] [address], [place] [address]- 7769 15 May, 2015 COPD (chronic obstructive pulmonary disease) J44.9 [facility] [address], [place] [address]- 8795 15 May, 2015 [facility] [address], [place] [address]- 4188 May, [facility] [address], [place] [address]- 7730 May, [facility] [address], [place] [address]- 7901 May, [facility] [address], [place] [address]- 0676 May, [facility] [address], [place] [address]- 1673 May, Renal failure N19 and Pneumonia, organism unspecified, unspecified laterality, unspecified part of lung J18.9 [facility] [address], [place] [address]- 1176 Apr, [facility] [address], [place] [address]- 6152 Apr, [facility] [address], [place] [address]- 0163 Apr, [facility] [address], [place] [address]- 6796 Apr, Diabetes mellitus 250.00 [facility] [address], [place] [address]- 1014 Apr, [facility] [address], [place] [address]- 2749 Apr, [facility] [id number], [place] [address]- 2622 Apr, [facility] [address] [place] [address]- 4876 07 Apr, 2015 [facility] [place] [facility] [address] [id number] [place] [address]- 1028 31 Mar, 2014 [facility] [place] [facility] [address] [id number] [place] [address]- 8829 28 Mar, 2015 [facility] [place] [facility] [id number] [place] [address], [place] [address]- 0155 23 Mar, 2014 [facility] [place] [facility] [address] [id number] [place] [address]- 2103 16 Mar, 2015 Renal failure N19 [facility] [place] [facility] [address] [facility] [id number] [place] [address], [place] [address]- 0669 14 Mar, 2015 [facility] [place] [facility] [address] [facility] [id number] [place] [address]- 5862 07 Mar, 2015 [facility] [place] [facility] [id number] [place] [address], [place] [address]- 9222 04 Mar, 2015 [facility] [place] [facility] [address] [facility] [id number] [place] [address]- 6788 24 Jan, 2015 [facility] [place] [facility] [address] [place] [address]- 1851 18 Jan, 2015 [facility] [place] [facility] [address] [id number] [place] [address]- 5174 17 Jan, 2015 [facility] [place] [facility] [address] [facility] [id number] [place] [address]- 8845 Jan, [facility] [place] [facility] [address] [facility] [id number] [place] [address]- 5559 Dec, [facility] [place] [facility] [address] [facility] [id number] [place] [address]- 5869 Dec, [facility] [place] [facility] [address] [facility] [id number] [place] [address] 2546 Dec, [facility] [place] [facility] [address] [facility] [id number] [place] 2717 Nov, [facility] [address] [facility] [id number], [place] [address]- 8087 Nov, [facility] [address] [place] [address]- 5970 Nov, [facility] [id number] [place] [address]- 7220 Oct, [facility] [address] [facility] [id number] [place] [address]- 3254 Oct, [facility] [address] [facility] [id number], [place] [address]- 6500 Oct, Renal failure 586 and Obesity 278.00 [facility] [address] [facility] [id number], [place] [address]- 1339 Oct, [facility] [address], [place] [address]- 3478 Oct, [facility] [address], [place] [address]- 2506 Oct, [facility] [address], [place] [address]- 5692 Sep, [facility] [address], [place] [address]- 0440 Sep, [facility] [id number], [place] [address]- 3254 Sep, Diabetes mellitus 250.00 and Congestive heart failure, unspecified 428.0 [facility] [id number], [place] [address]- 4721 Aug, [facility] [address], [place] [address]- 5992 Aug, [facility] [id number], [place] [address]- 2131 Aug, [facility] [address], [place] [address]- 8388 July, [facility] [address] [id number] [place] [address]- 6851 July, [facility] [address] [id number] [place] [address]- 8658 July, Heart murmur, systolic 785.2 [facility] [address] [id number] [place] [address]- 9246 July, [facility] [address] [id number] [place] [address]- 2768 July, [facility] [address] [id number] [place] [address]- 1876 Jun, [facility] [address] [id number] [place] [address]- 5812 Jun, [facility] [address] [id number] [place] [address]- 5574 May, [facility] [address] [id number] [place] [address]- 3585 23 May, 2014 [facility] [address] [id number] [place] [address] May, [facility] [address] [id number] [place] [address] 18 May, 2014 [facility] [address] [id number] [place] [address] 16 May, 2014 [facility] [address] [id number] [place] [address] 16 May, 2014 [facility] [address] [id number] [place] [address] 10 May, 2014 [facility] [address] [id number] [place] [address] 10 May, 2014 [facility] [address] [id number] [place] [address] 09 May, 2014 [facility] [place] [facility] [address] [id number] [place] [address] May, 2014 [facility] [place] [facility] [address] [id number] [place] [address] May, 2014 [facility] [place] [facility] [address] [facility] [id number] [place] [address] May, 2014 [facility] [place] [facility] [address] [facility] [id number] [place] [address] May, 2014 [facility] [place] [facility] [address] [id number] [place] [address] May, 2014 [facility] [place] [facility] [address] [id number] [place] [address] May, 2014 [facility] [place] [facility] [address] [id number] [place] [address] May, 2014 [facility] [place] [facility] [address] [facility] [id number] [place] [address] May, 2014 [facility] [place] [facility] [address] [facility] [id number] [place] [address] May, 2014 [facility] [place] [facility] [address] [facility] [id number] [place] [address] May, 2014 [facility] [place] [facility] [address] [facility] [id number] [place] [address] May, 2014 [facility] [place] [facility] [address] [facility] [id number] [place] [address] 16 May, 2014 [facility] [place] [facility] [address] [facility] [id number] [place] [address] 16 May, 2014 [facility] [place] [facility] [address] [facility] [id number] [place] [address] May, 2014 [facility] [place] [facility] [address] [facility] [id number] [place] [address] May, 2014 [facility] [place] [facility] [address] [facility] [id number] [place] [address] May, [facility] [address] [id number] [place] [address] May, [facility] [place] [facility] [address] [id number] [place] [address] Apr, [facility] [address] [id number] [place] [address] Apr, [facility] [place] [facility] [address] [id number] [place] [address] Apr, [facility] [address] [id number] [place] [address] Apr, [facility] [address] [id number] [place] [address] Apr, [facility] [address] [id number] [place] [address] Apr, [facility] [address] [id number] [place] [address] Apr, [facility] [address] [id number] [place] [address] Apr, [facility] [address] [id number] [place] [address] Mar, [facility] [place] [place] [facility] [facility] [place] [facility] [address] [id number] [place] [address] Mar, [facility] [place] [facility] [address] [id number] [place] [address] 3316 Mar, [facility] [place] [facility] [address] [id number] [place] [address] 2786 Mar, [facility] [place] [facility] [address] [id number] [place] [address] 2466 Mar, [facility] [place] [facility] [address] [id number] [place] [address] 7921 Mar, [facility] [place] [facility] [address] [id number] [place] [address] 6780 Mar, [facility] [place] [facility] [address] [id number] [place] [address] 7383 Mar, [facility] [place] [facility] [address] [id number] [place] [address]- 9549 Mar, [facility] [place] [facility] [address] [id number] [place] [address]- 5577 Mar, [facility] [place] [facility] [address] [id number] [place] [address]- 3623 Mar, [facility] [place] [facility] [address] [id number] [place] [address]- 6924 Mar, [facility] [place] [facility] [address] [id number] [place] [address]- 7951 Mar, [facility] [place] [facility] [address] [id number] [place] [address]- 1164 Mar, [facility] [place] [facility] [address] [id number] [place] [address]- 8347 Mar, [facility] [place] [facility] [address] [id number] [place] [address]- 8152 Mar, [facility] [place] [facility] [address] [id number] [place] [address]- 5006 Mar, [facility] [place] [facility] [address] [id number] [place] [address]- 3772 Mar, [facility] [place] [facility] [address] [id number] [place] [address]- 6666 Mar, [facility] [place] [facility] [address] [id number] [place] [address]- 9128 Mar, [facility] [place] [facility] [address] [id number] [place] [address]- 1700 Mar, [facility] [place] [facility] [address] [id number] [place] [address]- 6614 Mar, [facility] [place] [facility] [address] [id number] [place] [address]- 6181 Jan, [facility] [place] [facility] [address] [id number] [place] [address]- 0456 Jan, [facility] [place] [facility] [address] [id number] [place] [address]- 2065 Jan, [facility] [place] [facility] [address] [id number] [place] [address]- 0786 Jan, [facility] [place] [facility] [address] [id number] [place] [address]- 0319 Jan, [facility] [place] [facility] [address] [id number] [place] [address]- 8137 Jan, [facility] [place] [facility] [address] [id number] [place] [address]- 0669 Jan, [facility] [place] [facility] [address] [id number] [place] [address]- 4709 Jan, [facility] [place] [facility] [address] [id number] [place] [address]- 6072 Jan, [facility] [place] [facility] [address] [facility] [id number] [place] [address]- 7001 Jan, [facility] [place] [facility] [address] [id number] [place] [address]- 8725 Jan, [facility] [place] [facility] [address] [id number], [place] [address]- 67[address] Jan, [facility] [place] [facility] [address] [id number] [place] [address]- 2448 Jan, [facility] [place] [facility] [address] [id number] [place] [address]- 3691 Jan, [facility] [place] [facility] [address] [id number], [place] [address]- 6407 Jan, [facility] [place] [facility] [address] [id number] [place] [address]- 5368 Jan, [facility] [place] [facility] [address] [id number] [place] [address]- 1275 Jan, [facility] [place] [facility] [address] [id number] [place] [address]- 0521 Jan, [facility] [place] [facility] [address] [id number] [place] [address]- 3739 Jan, [facility] [place] [facility] [address] [id number] [place] [address]- 9296 Jan, [facility] [place] [facility] [address] [id number] [place] [address]- 7422 Dec, [facility] [place] [facility] [address] [id number] [place] [address]- 1395 Dec, [facility] [place] [facility] [address] [id number] [place] [address]- 3341 Dec, [facility] [place] [facility] [address] [id number] [place] [address]- 4334 Dec, [facility] [place] [facility] [address] [id number] [place] [address]- 7121 Dec, [facility] [place] [facility] [address] [id number] [place] [address]- 0490 Dec, [facility] [place] [facility] [address] [id number] [place] [address]- 7498 14 Dec, 2013 [facility] [place] [facility] [address] [id number] [place] [address]- 5160 10 Dec, 2013 [facility] [place] [facility] [address] [id number] [place] [address]- 9913 10 Dec, 2013 [facility] [place] [facility] [address] [id number] [place] [address]- 2469 08 Dec, 2013 [facility] [place] [facility] [address] [id number] [place] [address]- 2075 08 Dec, 2013 [facility] [place] [facility] [address] [id number] [place] [address]- 0855 Dec, [facility] [place] [facility] [address] [id number] [place] [address]- 6806 Dec, [facility] [place] [facility] [address] [id number] [place] [address]- 7614 Dec, [facility] [place] [facility] [address] [id number] [place] [address]- 6170 Dec, [facility] [place] [facility] [address] [id number] [place] [address]- 5280 22 Nov, 2013 [facility] [place] [facility] [address] [id number] [place] [address]- 4643 22 Nov, 2013 [facility] [place] [facility] [address] [id number] [place] [address]- 3629 19 Nov, 2013 [facility] [place] [facility] [address] [id number] [place] [address]- 0883 19 Nov, 2013 [facility] [place] [facility] [address] [id number] [place] [address]- 0521 13 Nov, 2013 [facility] [place] [facility] [address] [id number] [place] [address]- 1361 13 Nov, 2013 [facility] [place] [facility] [address] [id number], [place] [address]- 8077 10 Nov, 2013 [facility] [place] [facility] [address] [id number], [place] [address]- 2543 10 Sep, 2013 [facility] [place] [facility] [address] [id number] [place] [address]- 2542 08 Sep, 2013 [facility] [place] [facility] [address] [id number] [place] [address]- 2857 05 Sep, 2013 [facility] [place] [facility] [address] [id number] [place] [address]- 2540 05 Sep, 2013 [facility] [place] [facility] [address] [id number] [place] [address]- 4813 Nov, [facility] [place] [facility] [address] [id number] [place] [address]- 7734 Nov, [facility] [place] [facility] [address] [id number] [place] [address]- 4478 Oct, [facility] [place] [facility] [address] [id number] [place] [address]- 0284 Oct, [facility] [place] [facility] [address] [id number] [place] [address]- 5440 Oct, [facility] [place] [facility] [address] [id number] [place] [address]- 9358 Oct, [facility] [place] [facility] [address] [id number] [place] [address]- 7975 Oct, [facility] [place] [facility] [address] [id number] [place] [address]- 7169 Sep, [facility] [place] [facility] [address] [id number] [place] [address]- 6646 Sep, [facility] [place] [facility] [address] [id number] [place] [address]- 1676 Sep, [facility] [place] [facility] [address] [id number] [place] [address]- 8225 Sep, [facility] [place] [facility] [address] [id number] [place] [address]- 9627 Aug, [facility] [place] [facility] [address] [id number] [place] [address]- 8439 Aug, [facility] [place] [facility] [address] [id number] [place] [address]- 4198 Aug, [facility] [place] [facility] [address] [id number] [place] [address]- 1604 Aug, [facility] [place] [facility] [address] [id number] [place] [address]- 7645 Aug, [facility] [place] [facility] [address] [id number] [place] [address]- 7397 Aug, [facility] [place] [facility] [address] [id number] [place] [address]- 6799 Aug, [facility] [place] [facility] [address] [id number] [place] [address]- 6530 Aug, [facility] [place] [facility] [address] [id number] [place] [address]- 7377 Aug, [facility] [place] [facility] [address] [id number] [place] [address]- 5238 Aug, [facility] [place] [facility] [address] [id number] [place] [address]- 7273 Aug, [facility] [place] [facility] [address] [id number] [place] [address]- 9779 Aug, [facility] [place] [facility] [address] [id number] [place] [address]- 0872 Aug, [facility] [place] [facility] [address] [id number] [place] [address]- 1266 Aug, [facility] [place] [facility] [address] [id number] [place] [address]- 3826 Aug, [facility] [place] [facility] [address] [id number] [place] [address]- 7220 Aug, [facility] [place] [facility] [address] [id number], [place] [address]- 6867 Aug, [facility] [place] [facility] [address] [id number] [place] [address]- 1202 Aug, [facility] [place] [facility] [address] [id number] [place] [address]- 0053 Aug, [facility] [place] [facility] [address] [id number] [place] [address]- 0841 Aug, [facility] [place] [facility] [address] [id number] [place] [address]- 0334 Aug, [facility] [place] [facility] [address] [id number] [place] [address]- 6339 Aug, [facility] [place] [facility] [address] [id number] [place] [address]- 1222 Aug, [facility] [place] [facility] [address] [id number] [place] [address]- 6095 Aug, [facility] [place] [facility] [address] [id number] [place] [address]- 2459 July, [facility] [place] [facility] [address] [id number] [place] [address]- 6174 July, [facility] [place] [facility] [address] [id number] [place] [address]- 6704 July, [facility] [place] [facility] [address] [id number] [place] [address]- 1970 July, [facility] [place] [facility] [address] [id number] [place] [address]- 8694 July, [facility] [place] [facility] [address] [id number] [place] [address]- 8195 July, [facility] [place] [facility] [address] [id number] [place] [address]- 5115 Jun, [facility] [place] [facility] [address] [id number] [place] [address]- 9171 Jun, [facility] [place] [facility] [address] [id number] [place] [address]- 3990 Jun, [facility] [place] [facility] [address] [id number] [place] [address]- 1077 Jun, [facility] [place] [facility] [address] [id number] [place] [address]- 0212 Jun, [facility] [place] [facility] [address] [id number] [place] [address]- 8203 Jun, [facility] [place] [facility] [address] [id number] [place] [address]- 8773 Jun, [facility] [place] [facility] [address] [id number] [place] [address]- 9793 Jun, [facility] [place] [facility] [address] [id number] [place] [address]- 3956 Jun, [facility] [place] [facility] [address] [id number] [place] [address]- 9618 Jun, [facility] [place] [facility] [address] [id number] [place] [address]- 0811 Jun, [facility] [place] [facility] [address] [id number] [place] [address]- 8717 Jun, [facility] [place] [facility] [address] [id number] [place] [address]- 0734 Jun, [facility] [place] [facility] [address] [id number] [place] [address]- 3745 Jun, [facility] [place] [facility] [address] [id number] [place] [address]- 7324 Jun, [facility] [place] [facility] [address] [id number] [place] [address]- 3279 May, [facility] [place] [facility] [address] [id number] [place] [address]- 0243 May, [facility] [place] [facility] [address] [id number] [place] [address]- 0788 May, [facility] [place] [facility] [address] [id number] [place] [address]- 1061 May, [facility] [place] [facility] [address] [id number] [place] [address]- 9548 May, [facility] [place] [facility] [address] [id number] [place] [address]- 5481 May, [facility] [place] [facility] [address] [id number] [place] [address]- 9920 May, [facility] [place] [facility] [address] [id number] [place] [address]- 2326 May, [facility] [place] [facility] [address] [id number] [place] [address]- 7306 May, [facility] [place] [facility] [address] [id number] [place] [address]- 1357 May, [facility] [place] [facility] [address] [id number] [place] [address]- 1410 May, [facility] [place] [facility] [address] [id number] [place] [address]- 7427 May, [facility] [place] [facility] [address] [id number] [place] [address]- 9361 May, [facility] [place] [facility] [address] [id number] [place] [address]- 1715 May, [facility] [place] [facility] [address] [id number] [place] [address]- 4005 May, [facility] [place] [facility] [address] [id number] [place] [address]- 4295 May, [facility] [place] [facility] [address] [id number] [place] [address]- 6389 May, [facility] [place] [facility] [address] [id number] [place] [address]- 2771 Apr, [facility] [place] [facility] [address] [id number] [place] [address]- 3428 Apr, [facility] [place] [facility] [address] [id number] [place] [address]- 1995 Apr, [facility] [place] [facility] [address] [id number] [place] [address]- 5777 Apr, [facility] [place] [facility] [address] [id number] [place] [address]- 9020 Apr, [facility] [place] [facility] [address] [id number] [place] [address]- 9161 10 Apr, 2013 [facility] [address] [id number] [place] [address]- 7188 Apr, [facility] [address] [id number] [place] [address]- 3776 Apr, [facility] [address] [id number] [place] [address]- 1329 Apr, [facility] [address] [id number] [place] [address]- 1308 Apr, [facility] [address] [id number] [place] [address]- 6984 Apr, [facility] [address] [id number] [place] [address]- 5674 Apr, [facility] [address] [id number] [place] [address]- 1820 Apr, [facility] [address] [id number] [place] [address]- 3023 Apr, [facility] [address] [id number] [place] [address]- 6884 Apr, [facility] [address] [id number] [place] [address]- 6468 Apr, [facility] [address] [id number] [place] [address]- 7380 Mar, [facility] [address] [id number] [place] [address]- 5419 Mar, [facility] [place] [facility] [address] [id number] [place] [address]- 4693 Mar, [facility] [place] [facility] [address] [id number] [place] [address]- 9521 Mar, [facility] [address] [id number] [place] [address]- 9475 Mar, [facility] [address] [id number] [place] [address]- 9022 18 Mar, 2012 [facility] [place] [facility] [address] [id number] [place] [address]- 7126 Mar, [facility] [place] [facility] [address] [id number] [place] [address]- 9865 Mar, [facility] [place] [facility] [address] [id number] [place] [address]- 4864 Mar, [facility] [address] [id number] [place] [address]- 4363 Mar, [facility] [place] [facility] [address] [id number] [place] [address]- 6246 Mar, [facility] [place] [facility] [address] [facility] [id number] [place] [address]- 7858 Mar, [facility] [place] [facility] [address] [id number], [place] [address]- 6010 Mar, [facility] [place] [facility] [address] [id number] [place] [address]- 2918 Mar, [facility] [place] [facility] [address] [facility] [id number], [place] [address]- 1252 Mar, [facility] [place] [facility] [address] [facility] [id number], [place] [address]- 9692 Mar, [facility] [place] [facility] [address] [id number], [place] [address]- 9961 Mar, [facility] [place] [facility] [address] [id number], [place] [address]- 9606 Mar, [facility] [place] [facility] [address] [id number], [place] [address]- 1216 Jan, [facility] [place] [facility] [address] [facility] [id number], [place] [address]- 1766 Jan, [facility] [place] [facility] [address] [id number], [place] [address]- 3623 Jan, [facility] [place] [facility] [address] [id number] [place] [address]- 5839 Jan, [facility] [place] [facility] [address] [id number] [place] [address]- 2182 Nov, [facility] [place] [facility] [address] [id number] [place] [address]- 7486 Nov, [facility] [place] [facility] [address] [id number] [place] [address]- 4704 Nov, [facility] [place] [facility] [address] [id number] [place] [address]- 4533 Nov, [facility] [place] [facility] [address] [id number] [place] [address]- 3051 Oct, [facility] [place] [facility] [address] [id number] [place] [address]- 8551 Oct, [facility] [place] [facility] [address] [id number] [place] [address]- 8507 Oct, [facility] [place] [facility] [address] [id number] [place] [address]- 6086 Oct, [facility] [place] [facility] [address] [id number] [place] [address]- 3754 Sep, [facility] [place] [facility] [address] [id number] [place] [address] Sep, [facility] [place] [facility] [address] [id number] [place] [address] Sep, [facility] [place] [facility] [address] [id number] [place] [address] Sep, [facility] [place] [facility] [address] [id number] [place] [address] Sep, [facility] [place] [facility] [address] [id number] [place] [address] Sep, [facility] [place] [facility] [address] [id number] [place] [address] Sep, [facility] [address] [id number] [place] [address] Sep, [facility] [place] [facility] [address] [id number] [place] [address] Sep, [facility] [address] [id number] [place] [address] Aug, [facility] [place] [facility] [address] [id number] [place] [address] Aug, [facility] [place] [facility] [address] [id number] [place] [address] Aug, [facility] [place] [facility] [address] [id number] [place] [address] Aug, [facility] [place] [facility] [address] [id number] [place] [address] July, [facility] [address] [id number] [place] [address] July, [facility] [address] [id number] [place] [address] July, [facility] [address] [id number] [place] [address] July, [facility] [place] [facility] [address] [id number] [place] [address] July, [facility] [place] [facility] [address] [id number] [place] [address] July, [facility] [place] [facility] [address] [id number] [place] [address] July, [facility] [place] [facility] [address] [id number] [place] [address] Jun, [facility] [place] [facility] [address] [id number] [place] [address] May, [facility] [address] [facility] [id number] [address] May, [facility] [address] [id number] [address] May, [facility] [address] [facility] [id number], [place] [address] May, [facility] [id number] [address] May, [facility] [address] [id number] [address] May, [facility] [address] [id number] [address] May, [facility] [address] [id number] [address] May, IMMUNIZATIONS No Known Immunizations SOCIAL HISTORY Never Assessed REASON FOR VISIT med refills PLAN OF CARE VITAL SIGNS MEDICATIONS Medication Instructions Dosage Frequency Start Date End Date Duration Status HydrOXYzine HCl 25 MG TAKE 1 TABLET BY MOUTH FOUR TIMES DAILY NEEDED FOR ANXIETY 22 Active Metoprolol Tartrate 100 mg Orally Twice a day 1 tablet 12h 30 Active RESULTS No Results PROCEDURES No [...]
--- OUTSIDE RECORDS SUMMARY | 2017-12-18 20:00 | XMS REPORT ---
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 516552022 Problem Renal failure N19 Active 47666764 Problem Diabetes type 2, controlled E11.9 Active 99306816 Problem Amput below knee, unilat S88.119A Active 40654442 Problem Neuropathy G62.9 Active 411675180 ALLERGIES No Information SOCIAL HISTORY Never Assessed PLAN OF CARE VITAL SIGNS MEDICATIONS Medication Instructions Dosage Frequency Start Date End Date Duration Status Clindamycin HCl 150 MG Orally 4 times a day 2 capsules 6h July, July, 10 days Active RESULTS No Results PROCEDURES No Known procedures IMMUNIZATIONS No Known Immunizations MEDICAL (GENERAL) HISTORY Type Description Date Medical [...]
--- OUTSIDE RECORDS SUMMARY | 2017-12-18 20:01 | XMS REPORT ---
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
--- OUTSIDE RECORDS SUMMARY | 2017-12-18 20:02 | XMS REPORT ---
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 24h July, lifetime Active RESULTS No Results PROCEDURES No Known [...]
--- OUTSIDE RECORDS SUMMARY | 2017-12-18 20:02 | XMS REPORT ---
Author Author MCKENNA HEBERT Organization [facility] Address [address] [place] [address] Care Team Providers Care Periodontist Name Role Phone MCKENNA HEBERT Unavailable PROBLEMS Type Condition ICD9-CM Code ZKB49-HP Code Onset Dates Condition Status SNOMED Code Problem Diabetes type 2, controlled E11.9 Active 38744783 Problem Neuropathy G62.9 Active 550036768 Problem Renal failure N19 Active 16280647 Problem Cellulitis of right lower extremity L03.115 Active 425395839 Problem Angina pectoris I20.9 Active 628977714 Problem Seasonal allergic rhinitis due to other allergic trigger J30.89 Active 155178625 Problem Intra-dialytic hypotension I95.3 Active 999434526 Problem Amput below knee, unilat S88.119A Active 45748590 Problem Chronic congestive heart failure, unspecified heart failure type I50.9 Active 00587196 Problem Chronic congestive heart failure, unspecified congestive heart failure type I50.9 Active 20534018 ALLERGIES No Information ENCOUNTERS Encounter Location Date Diagnosis [facility] [id number] [place] [address] 83580- 2742 May, [facility] [id number] [place] [address] 98736- 2754 May, [facility] [id number] [place] [address] 70430- 4280 May, [facility] [id number] [place] [address] 88468- 4947 May, Chronic congestive heart failure, unspecified congestive heart failure type I50.9 [facility] [id number] [place] [address] 39622- 3634 May, Diabetes type 2, controlled E11.9 ; BMI 50.0-59.9, adult Z68.43 ; Chronic congestive heart failure, unspecified heart failure type I50.9 ; Angina pectoris I20.9 ; Seasonal allergic rhinitis due to other allergic trigger J30.89 and Renal failure N19 [facility] [address] [id number] May, [facility] [id number] [place] [address] 92564- 9144 May, [facility] [id number] [place] [address] 86807- 3545 May, [facility] [id number] [place] [address] 63975- 0468 May, [facility] [id number] [place] [address] 67772- 1732 May, [facility] [id number] [place] [address] 27859- 7489 Apr, BMI 50.0-59.9, adult Z68.43 [facility] [id number] [place] [address] 71505- 5042 Apr, BMI 50.0-59.9, adult Z68.43 ; Post-procedural fever R50.82 and Bronchitis J40 [facility] [id number] [place] [address] 08090- 4600 Apr, Chronic congestive heart failure, unspecified congestive heart failure type I50.9 [facility] [id number] [place] [address] 89482- 0591 Jan, [facility] [id number] [place] [address] 20920- 8447 Jan, Diabetes type 2, controlled E11.9 [facility] [id number] [place] [address] 22488- 8113 Jan, Neuropathy G62.9 [facility] [id number] [place] [address] 07032- 2379 Jan, [facility] [address] [facility] [id number], [place] [address] Jan, [facility] [address] [facility] [id number], [place] [address]- 6570 Jan, [facility] [address] [facility] [id number], [place] [address]- 2497 Jan, [facility] [address] [address]- 7007 Jan, [facility] [address] [facility] [id number], [place] [address]- 4408 Dec, [facility] [address] [place] [address]- 7255 Dec, [facility] [address], [place] [address]- 3431 Dec, Diabetes type 2, controlled E11.9 [facility] [address], [place] [address]- 2750 Dec, [facility] [address] [id number] [address]- 8894 Dec, [facility] [address] [address]- 5681 Dec, Chronic congestive heart failure, unspecified congestive heart failure type I50.9 [facility] [address], [place] [address]- 6553 Dec, [facility] [address] [facility] [id number][place] [address]- 2516 Dec, [facility] [address] [id number] [address]- 0587 Nov, Chronic congestive heart failure, unspecified congestive heart failure type I50.9 [facility] [address] [id number], [place] [address]- 0959 Nov, Chronic congestive heart failure, unspecified congestive heart failure type I50.9 [facility] [address], [place] [address]- 7823 Nov, [facility] [address], [place] [address]- 1170 Oct, [facility] [address], [place] [address]- 6109 Oct, [facility] [id number] [place] [address] 87052- 4418 Oct, Chronic congestive heart failure, unspecified congestive heart failure type I50.9 [facility] [address], [place] [address]- 3796 Oct, [facility] [id number] [place] [address] 92499- 8968 Oct, Pneumonia of both lungs due to infectious organism, unspecified part of lung J18.9 [facility] [address], [place] [address]- 5522 Oct, [facility] [address], [place] [address]- 0740 Oct, Diabetes type 2, controlled E11.9 [facility] [address], [place] [address]- 0441 Oct, Diabetes type 2, controlled E11.9 [facility] [address], [place] [address]- 9926 Sep, [facility] [address], [place] [address]- 5673 Sep, Neuropathy G62.9 [facility] [address], [place] [address]- 8836 Aug, Intra-dialytic hypotension I95.3 [facility] [address], [place] [address] July, [facility] [address], [place] [address]- 7679 July, [facility] [address] [id number] [place] [address] 2546 July, [facility] [address] [place] [address] 2546 July, Amput below knee, unilat S88.119A [facility] [address] [place] [address] 2546 May, [facility] [address] [id number] [place] [address] 2546 May, Neuropathy G62.9 [facility] [id number] [place] [address], [place] [address]- 0046 May, [facility] [address] [place] [address] 2546 May, [facility] [id number] [place] [address], [place] [address]- 4996 May, [facility] [address] [place] [address]- 3625 May, [facility] [address] [place] [address]- 8366 May, Neuropathy G62.9 [facility] [address] [place] [address]- 4836 Apr, [facility] [address], [place] [address] 2546 Apr, [facility] [address] [id number] [place] [address]- 1036 Apr, Diabetes type 2, controlled E11.9 and Renal failure N19 [facility] [address] [id number] [place] [address] -8068 Apr, [facility] [address] [place] [address]- 0406 Apr, [facility] [address] [facility] [id number] [place] [address]- 7797 Mar, [facility] [id number] [place] [address], [place] [address]- 8109 Mar, [facility] [address] [place] [address]- 4344 Mar, [facility] [id number] [place] [address] 59239- 8159 Mar, [facility] [address] [facility] [id number] [place] [address], [place] [address]- 3364 Mar, [facility] [id number] [place] [address], [place] [address]- 0595 Jan, Localized edema R60.0 [facility] [id number] [place] [address] 66724- 7391 Jan, [facility] [id number] [place] [address] 70847- 9280 Jan, [facility] [id number] [place] [address] 37333- 7158 Jan, [facility] [id number] [place] [address] 23910- 0050 Jan, [facility] [address], [place] [address]- 2988 Jan, [facility] [id number] [place] [address] 12456- 8428 Jan, [facility] [address] [id number], [place] [address]- 9269 Dec, Diabetes type 2, controlled E11.9 and Chronic nonintractable headache, unspecified headache type R51 [facility] [address] [facility] [id number], [place] [address]- 3897 Dec, [facility] [id number] [place] [address] 84097- 3275 Dec, [facility] [address], [place] [address]- 2125 Nov, [facility] [id number] [place] [address] 49984- 6991 Nov, [facility] [id number] [place] [address] 95674- 2166 Oct, [facility] [id number] [place] [address] 73742- 6219 Oct, Migraine without status migrainosus, not intractable, unspecified migraine type G43.909 [facility] [id number] [place] [address] 47243- 7648 Oct, [facility] [id number] [place] [address] 70512- 3298 Sep, Amput below knee, unilat S88.119A and Neuropathy G62.9 [facility] [id number] [place] [address] 41312- 0254 Sep, [facility] [id number] [place] [address] 76476- 4279 Sep, [facility] [id number] [place] [address] 58729- 0110 Sep, [facility] [id number] [place] [address] 74995- 1553 Aug, [facility] [id number] [place] [address] 56845- 4895 Aug, [facility] [id number] [place] [address] 75016- 9087 Aug, Diabetes type 2, controlled E11.9 [facility] [address], [place] [address]- 5092 Aug, [facility] [address], [place] [address]- 9754 Jun, Diabetes type 2, controlled E11.9 and Neuropathy G62.9 [facility] [address] [facility] [id number] [place] [address]- 6448 14 Jul, 2015 [facility] [address] [facility] [id number] [place] [address]- 9826 Jun, [facility] [address] [place] [address]- 1291 Jun, [facility] [address] [facility] [id number] [place] [address]- 7725 Jun, [facility] [address] [facility] [id number] [place] [address]- 3773 May, [facility] [id number] [place] [address], [place] [address]- 5610 May, Diabetes type 2, controlled E11.9 [facility] [address] [place] [address]- 7925 May, [facility] [address] [facility] [id number] [place] [address]- 7846 May, [facility] [address] [place] [address]- 2602 May, [facility] [address], [place] [address]- 8593 May, [facility] [address], [place] [address]- 1278 17 May, 2015 [facility] [address], [place] [address]- 254 May, [facility] [address], [place] [address]- 6636 May, [facility] [address], [place] [address]- 7335 15 May, 2015 COPD (chronic obstructive pulmonary disease) J44.9 [facility] [address], [place] [address]- 0567 May, [facility] [address] [id number], [place] [address]- 1049 May, [facility] [address], [place] [address]- 9419 May, [facility] [address], [place] [address]- 7724 May, [facility] [address], [place] [address]- 7502 May, [facility] [address], [place] [address]- 7200 May, Renal failure N19 and Pneumonia, organism unspecified, unspecified laterality, unspecified part of lung J18.9 [facility] [address], [place] [address]- 3529 Apr, [facility] [address], [place] [address]- 7773 Apr, [facility] [address], [place] [address]- 6070 Apr, [facility] [address], [place] [address]- 5162 Apr, Diabetes mellitus 250.00 [facility] [address], [place] [address]- 6790 Apr, [facility] [id number], [place] [address]- 5467 Apr, [facility] [address], [place] [address]- 2857 Apr, [facility] [address], [place] [address]- 5775 Apr, [facility] [id number], [place] [address]- 4620 Mar, [facility] [place] [facility] [address] [id number] [place] [address]- 7732 28 Mar, 2015 [facility] [place] [facility] [address] [id number] [place] 8891 23 Mar, 2015 [facility] [place] [facility] [address] [facility] [id number] [place] 6815 16 Mar, 2015 Renal failure N19 [facility] [place] [facility] [id number] [place] [address], [place] [address]- 3657 14 Mar, 2015 [facility] [place] [facility] [address] [id number] [place] [address]- 7962 07 Mar, 2015 [facility] [place] [facility] [address] [id number] [place] [address]- 5553 04 Mar, 2015 [facility] [place] [facility] [address] [facility] [id number] [place] [address]- 4326 24 Jan, 2015 [facility] [place] [facility] [address] [facility] [id number] [place] [address], [place] [address]- 6806 18 Jan, 2015 [facility] [place] [facility] [address] [facility] [id number] [place] [address]- 8901 17 Jan, 2015 [facility] [place] [facility] [address] [id number] [place] [address]- 0606 Jan, [facility] [place] [facility] [address] [id number] [place] [address]- 6558 Dec, [facility] [place] [facility] [address] [id number], [place] [address]- 7886 Dec, [facility] [place] [facility] [address] [facility] [id number] [place] 4348 Dec, [facility] [place] [facility] [address] [facility] [id number] [place] [address]- 4802 21 Nov, 2014 [facility] [place] [facility] [address] [facility] [id number] [place] [address]- 5262 19 Nov, 2014 [facility] [place] [facility] [address] [facility] [id number], [place] [address]- 6123 Nov, [facility] [address] [facility] [id number], [place] [address]- 0738 Oct, [facility] [address] [facility] [id number], [place] [address]- 5671 Oct, [facility] [address] [facility] [id number], [place] [address]- 7952 Oct, Renal failure 586 and Obesity 278.00 [facility] [address] [id number], [place] [address]- 8966 Oct, [facility] [address] [facility] [id number] [place] [address] 06317- 8023 Oct, [facility] [id number], [place] [address]- 8167 Oct, [facility] [id number], [place] [address]- 4825 Sep, [facility] [address] [facility] [id number], [place] [address]- 6568 Sep, [facility] [address] [id number], [place] [address]- 7829 Sep, Diabetes mellitus 250.00 and Congestive heart failure, unspecified 428.0 [facility] [address] [id number], [place] [address]- 6598 Aug, [facility] [address] [facility] [id number], [place] [address]- 5318 Aug, [facility] [address] [facility] [id number], [place] [address]- 4247 Aug, [facility] [address] [facility] [id number], [place] [address]- 3963 July, [facility] [address] [id number], [place] [address]- 7829 July, [facility] [address] [facility] [id number], [place] [address]- 3109 July, Heart murmur, systolic 785.2 [facility] [address] [id number] [place] [address]- 5296 July, [facility] [address] [id number] [place] [address]- 2546 July, [facility] [address] [id number] [place] [address]- 7272 Jun, [facility] [address] [id number] [place] [address]- 4270 Jun, [facility] [address] [id number] [place] [address]- 4543 May, [facility] [address] [id number] [place] [address]- 3579 May, [facility] [address] [id number] [place] [address]- 0761 May, [facility] [address] [id number] [place] [address]- 0968 May, [facility] [address] [id number] [place] [address]- 0995 May, [facility] [address] [facility] [id number] [place] [address]- 8878 16 May, 2014 [facility] [address] [id number] [place] [address]- 5306 May, [facility] [address] [id number] [place] [address] May, [facility] [address] [id number] [place] [address] May, [facility] [address] [id number] [place] [address] May, [facility] [address] [id number] [place] [address] May, 2014 [facility] [place] [facility] [address] [facility] [id number] [place] [address] May, 2014 [facility] [place] [facility] [address] [facility] [id number] [place] [address] 23 May, 2014 [facility] [place] [facility] [address] [facility] [id number] [place] [address] 23 May, 2014 [facility] [place] [facility] [address] [facility] [id number] [place] [address] 18 May, 2014 [facility] [place] [facility] [address] [facility] [id number] [place] [address] 18 May, 2014 [facility] [place] [facility] [address] [facility] [id number] [place] [address] 18 May, 2014 [facility] [place] [facility] [address] [id number] [place] [address] 18 May, 2014 [facility] [place] [facility] [address] [facility] [id number] [place] [address] 18 May, 2014 [facility] [place] [facility] [address] [facility] [id number] [place] [address] 18 May, 2014 [facility] [place] [facility] [address] [facility] [id number] [place] [address] 16 May, 2014 [facility] [place] [facility] [address] [facility] [id number] [place] [address] 16 May, 2014 [facility] [place] [facility] [address] [facility] [id number], [place] [address] 11 May, 2014 [facility] [place] [facility] [address] [facility] [id number] [place] [address] May, 2014 [facility] [place] [facility] [address] [facility] [id number], [place] [address] 02 May, 2014 [facility] [place] [facility] [address] [facility] [id number] [place] [address] May, [facility] [place] [facility] [address] [id number] [place] [address] Apr, [facility] [place] [facility] [address] [id number] [place] [address] Apr, [facility] [place] [facility] [address] [id number] [place] [address] Apr, [facility] [place] [facility] [address] [id number] [place] [address] Apr, [facility] [place] [facility] [address] [id number] [place] [address] Apr, [facility] [place] [facility] [address] [id number] [place] [address] Apr, [facility] [place] [facility] [address] [id number] [place] [address] Apr, [facility] [place] [facility] [address] [id number] [place] [address] Apr, [facility] [place] [facility] [address] [id number] [place] [address] Mar, [facility] [place] [facility] [address] [id number] [place] [address] Mar, [facility] [place] [facility] [address] [id number] [place] [address] Mar, [facility] [place] [facility] [address] [id number] [place] [address] Mar, [facility] [place] [facility] [address] [id number] [place] [address] Mar, [facility] [place] [facility] [address] [id number] [place] [address] Mar, [facility] [place] [facility] [address] [id number] [place] [address] Mar, [facility] [facility] [address] [id number] [place] [address] 1442 Mar, [facility] [place] [facility] [address] [id number] [place] [address] 9996 Mar, [facility] [place] [facility] [address] [id number] [place] [address] 4156 Mar, [facility] [place] [facility] [address] [id number] [place] [address] 1456 Mar, [facility] [place] [facility] [address] [id number] [place] [address]- 5481 Mar, [facility] [place] [facility] [address] [id number] [place] [address]- 7465 Mar, [facility] [place] [facility] [address] [id number] [place] [address]- 0348 Mar, [facility] [place] [facility] [address] [id number] [place] [address] 9612 Mar, [facility] [place] [facility] [address] [id number] [place] [address]- 2152 Mar, [facility] [place] [facility] [address] [id number] [place] [address]- 7227 Mar, [facility] [place] [facility] [address] [id number] [place] [address]- 1040 Mar, [facility] [place] [facility] [address] [id number] [place] [address]- 4744 Mar, [facility] [place] [facility] [address] [id number] [place] [address]- 3936 Mar, [facility] [place] [facility] [address] [id number] [place] [address]- 0261 Mar, [facility] [place] [facility] [address] [id number] [place] [address]- 2765 Mar, [facility] [place] [facility] [address] [id number] [place] [address]- 8012 Jan, [facility] [place] [facility] [address] [id number] [place] [address] 1320 Jan, [facility] [place] [facility] [address] [id number] [place] [address]- 6254 Jan, [facility] [place] [facility] [address] [id number] [place] [address]- 5471 Jan, [facility] [place] [facility] [address] [id number] [place] [address]- 0591 Jan, [facility] [place] [facility] [address] [id number] [place] [address]- 0909 Jan, [facility] [place] [facility] [address] [id number] [place] [address]- 8355 Jan, [facility] [place] [facility] [address] [id number] [place] [address]- 6944 Jan, [facility] [place] [facility] [address] [id number] [place] [address]- 1248 Jan, [facility] [place] [facility] [address] [id number] [place] [address]- 9661 Jan, [facility] [place] [facility] [address] [id number] [place] [address]- 2205 Jan, [facility] [address] [id number] [place] [address] 1881 Jan, [facility] [address] [id number] [place] [address]- 4750 Jan, [facility] [place] [address] [id number] [place] [address]- 8584 Jan, [facility] [place] [facility] [address] [id number] [place] [address]- 8110 Jan, [facility] [place] [address] [id number] [place] [address]- 0332 Jan, [facility] [place] [address] [id number] [place] [address]- 3455 Jan, [facility] [address] [id number] [place] [address]- 9379 Jan, [facility] [address] [id number] [place] [address]- 6529 Jan, [facility] [address] [id number] [place] [address]- 1239 Jan, [facility] [address] [id number] [place] [address]- 4422 Dec, [facility] [address] [id number] [place] [address]- 1555 Dec, [facility] [place] [address] [id number] [place] [address]- 7043 Dec, [facility] [address] [id number] [place] [address]- 6980 Dec, [facility] [address] [id number] [place] [address]- 6628 Dec, [facility] [address] [id number] [place] [address]- 7679 Dec, [facility] [address] [id number] [place] [address]- 3271 Dec, [facility] [address] [id number], [place] [address]- 4715 Dec, [facility] [address] [id number], [place] [address]- 9761 Dec, [facility] [address] [id number] [place] [address]- 7712 Dec, [facility] [address] [id number] [place] [address]- 6290 Dec, [facility] [address] [id number] [place] [address]- 9540 Dec, [facility] [address] [id number] [place] [address]- 3616 Dec, [facility] [address] [id number] [place] [address]- 4340 Dec, [facility] [address] [id number] [place] [address]- 8445 Dec, [facility] [address] [id number] [place] [address]- 5016 22 Nov, 2013 [facility] [address] [id number] [place] [address]- 1654 22 Sep, 2013 [facility] [address] [id number] [place] [address]- 7550 19 Nov, 2013 [facility] [address] [id number] [place] [address]- 5756 19 Sep, 2013 [facility] [address] [id number] [place] [address]- 7154 13 Nov, 2013 [facility] [address] [id number] [place] [address]- 3157 13 Sep, 2013 [facility] [address] [id number] [place] [address]- 9848 10 Sep, 2013 [facility] [address] [id number] [place] [address]- 5283 10 Sep, 2013 [facility] [address] [id number] [place] [address]- 5162 08 Sep, 2013 [facility] [address] [id number] [place] [address]- 2549 05 Sep, 2013 [facility] [address] [id number] [place] [address]- 2548 05 Sep, 2013 [facility] [address] [id number] [place] [address]- 9556 03 Sep, 2013 [facility] [address] [id number] [place] [address]- 254 03 Sep, 2013 [facility] [address] [id number] [place] [address]- 6526 Oct, [facility] [address] [id number] [place] [address]- 4926 Oct, [facility] [address] [id number] [place] [address]- 7619 Oct, [facility] [address] [id number] [place] [address]- 5761 Oct, [facility] [address] [id number] [place] [address]- 4139 Oct, [facility] [address] [id number] [place] [address]- 2556 Sep, [facility] [address] [id number] [place] [address]- 6164 Sep, [facility] [address] [id number] [place] [address]- 0625 Sep, [facility] [address] [id number] [place] [address]- 1498 Sep, [facility] [address] [id number] [place] [address]- 9525 Aug, [facility] [address] [id number] [place] [address]- 3545 Aug, [facility] [address] [id number] [place] [address]- 4962 Aug, [facility] [address] [id number] [place] [address]- 1855 Aug, [facility] [address] [id number] [place] [address]- 9300 Aug, [facility] [address] [id number] [place] [address]- 4394 Aug, [facility] [address] [id number] [place] [address]- 2691 Aug, [facility] [address] [id number] [place] [address]- 4217 Aug, [facility] [address] [id number] [place] [address]- 7812 Aug, [facility] [address] [id number] [place] [address]- 9752 Aug, [facility] [address] [id number] [place] [address]- 7834 Aug, [facility] [address] [id number] [place] [address]- 7487 Aug, [facility] [address] [id number] [place] [address]- 8109 Aug, [facility] [address] [id number] [place] [address]- 4029 Aug, [facility] [address] [id number] [place] [address]- 6647 Aug, [facility] [address] [id number] [place] [address]- 7768 Aug, [facility] [address] [id number] [place] [address]- 5690 Aug, [facility] [address] [id number], [place] [address]- 8850 Aug, [facility] [address] [id number], [place] [address]- 0206 Aug, [facility] [address] [id number] [place] [address]- 4716 Aug, [facility] [address] [id number] [place] [address]- 4111 Aug, [facility] [address] [id number] [place] [address]- 2468 Aug, [facility] [address] [id number] [place] [address]- 7667 Aug, [facility] [address] [id number] [place] [address]- 6281 Aug, [facility] [address] [id number] [place] [address]- 1116 July, [facility] [address] [id number] [place] [address]- 2782 July, [facility] [address] [id number] [place] [address]- 7584 July, [facility] [address] [id number] [place] [address]- 5452 July, [facility] [address] [id number] [place] [address]- 8987 July, [facility] [address] [id number] [place] [address]- 2411 July, [facility] [address] [id number] [place] [address]- 7412 Jun, [facility] [address] [id number] [place] [address]- 1346 Jun, [facility] [address] [id number] [place] [address]- 3188 Jun, [facility] [address] [id number] [place] [address]- 7043 Jun, [facility] [address] [id number] [place] [address]- 8493 Jun, [facility] [address] [id number] [place] [address]- 0054 Jun, [facility] [address] [id number] [place] [address]- 1756 Jun, [facility] [address] [id number] [place] [address]- 9633 Jun, [facility] [address] [id number] [place] [address]- 1734 Jun, [facility] [address] [id number] [place] [address]- 3324 Jun, [facility] [address] [id number] [place] [address]- 6341 Jun, [facility] [address] [id number] [place] [address]- 1518 Jun, [facility] [address] [id number] [place] [address]- 4082 Jun, [facility] [address] [id number] [place] [address]- 6309 Jun, [facility] [address] [id number] [place] [address]- 6239 Jun, [facility] [address] [id number] [place] [address]- 7626 May, [facility] [address] [id number] [place] [address]- 5262 May, [facility] [address] [id number] [place] [address]- 5164 May, [facility] [address] [id number] [place] [address]- 7922 May, [facility] [address] [id number] [place] [address]- 9886 May, [facility] [address] [id number] [place] [address]- 7821 May, [facility] [address] [id number] [place] [address]- 7964 May, [facility] [address] [id number] [place] [address]- 5756 May, [facility] [address] [id number] [place] [address]- 6387 May, [facility] [address] [id number] [place] [address]- 6264 May, [facility] [address] [id number] [place] [address]- 1988 May, [facility] [address] [id number] [place] [address]- 4458 May, [facility] [address] [id number] [place] [address]- 5585 May, [facility] [address] [id number] [place] [address]- 1128 May, [facility] [address] [id number] [place] [address]- 8229 May, [facility] [address] [id number] [place] [address]- 7310 May, [facility] [address] [id number] [place] [address]- 7763 May, [facility] [address] [id number] [place] [address]- 7347 Apr, [facility] [address] [id number] [place] [address]- 0162 Apr, [facility] [address] [id number] [place] [address]- 3774 Apr, [facility] [address] [id number] [place] [address]- 3055 Apr, [facility] [place] [facility] [address] [id number] [place] [address]- 6126 Apr, [facility] [place] [facility] [address] [id number] [place] [address]- 8890 Apr, [facility] [place] [facility] [address] [id number] [place] [address]- 4990 Apr, [facility] [place] [facility] [address] [id number] [place] [address]- 9615 Apr, [facility] [place] [facility] [address] [id number] [place] [address]- 0887 Apr, [facility] [place] [facility] [address] [id number] [place] [address]- 8590 Apr, [facility] [place] [facility] [address] [id number] [place] [address]- 9979 Apr, [facility] [place] [facility] [address] [id number] [place] [address]- 0016 Apr, [facility] [place] [facility] [address] [id number] [place] [address]- 0285 Apr, [facility] [place] [facility] [address] [id number] [place] [address]- 6696 Apr, [facility] [place] [facility] [address] [id number] [place] [address]- 7165 Apr, [facility] [place] [facility] [address] [id number] [place] [address]- 2826 Apr, [facility] [place] [facility] [address] [id number] [place] [address]- 2616 Mar, [facility] [place] [facility] [address] [id number] [place] [address]- 0378 Mar, [facility] [place] [facility] [address] [id number] [place] [address]- 7478 Mar, [facility] [place] [facility] [address] [id number] [place] [address]- 1101 Mar, [facility] [place] [facility] [address] [id number] [place] [address]- 4988 Mar, [facility] [place] [facility] [address] [id number] [place] [address]- 2366 Mar, [facility] [place] [facility] [address] [id number], [place] [address]- 0736 18 Mar, 2013 [facility] [address] [id number] [place] [address]- 9367 18 Mar, 2013 [facility] [place] [facility] [address] [id number] [place] [address]- 1527 Mar, [facility] [place] [facility] [address] [facility] [id number] [place] [address]- 3794 Mar, [facility] [place] [facility] [address] [id number], [place] [address]- 4523 05 Mar, 2013 [facility] [address] [id number] [place] [address]- 2518 05 Mar, 2013 [facility] [place] [facility] [address] [id number] [place] [address]- 1251 Mar, [facility] [place] [facility] [address] [id number], [place] [address]- 3375 Mar, [facility] [place] [facility] [address] [id number], [place] [address]- 3741 Mar, [facility] [place] [facility] [address] [id number], [place] [address]- 6060 Mar, [facility] [place] [facility] [address] [id number] 6906 Mar, [facility] [place] [facility] [address] [id number], [place] [address]- 6039 Mar, [facility] [place] [facility] [address] [id number], [place] [address]- 5774 Jan, [facility] [place] [facility] [address] [id number], [place] [address]- 7236 Jan, [facility] [place] [facility] [address] [facility] [id number], [place] [address]- 6685 Jan, [facility] [place] [facility] [address] [facility] [id number], [place] [address]- 6716 Jan, [facility] [place] [facility] [address] [id number] [place] [address]- 4066 27 Nov, 2012 [facility] [address] [id number] [place] [address]- 4054 10 Nov, 2012 [facility] [address] [id number] [place] [address]- 2546 Nov, [facility] [address] [id number] [place] [address]- 6176 Nov, [facility] [address] [id number] [place] [address]- 0365 Oct, [facility] [address] [id number] [place] [address]- 7903 Oct, [facility] [address] [id number] [place] [address]- 1899 Oct, [facility] [address] [id number] [place] [address]- 0807 Oct, [facility] [address] [id number] [place] [address]- 0089 Sep, [facility] [address] [id number] [place] [address]- 3361 Sep, [facility] [address] [id number] [place] [address] Sep, [facility] [place] [facility] [address] [id number] [place] [address] Sep, [facility] [address] [id number] [place] [address] Sep, [facility] [place] [facility] [address] [id number] [place] [address] Sep, [facility] [place] [facility] [address] [id number] [place] [address] Sep, [facility] [place] [facility] [address] [id number] [place] [address] Sep, [facility] [address] [id number] [place] [address] Sep, [facility] [place] [facility] [address] [id number] [place] [address] Aug, [facility] [place] [facility] [address] [id number] [place] [address] Aug, [facility] [place] [facility] [address] [id number] [place] [address] Aug, [facility] [address] [id number] [place] [address] Aug, [facility] [place] [facility] [address] [id number] [place] [address] July, [facility] [place] [facility] [address] [id number] [place] [address] July, [facility] [address] [id number] [place] [address] July, [facility] [place] [facility] [address] [id number] [place] [address] July, [facility] [place] [facility] [address] [id number] [place] [address] July, [facility] [place] [facility] [address] [id number] [place] [address] July, [facility] [place] [facility] [address] [id number] [place] [address] July, [facility] [place] [facility] [address] [id number] [place] [address] Jun, [facility] [place] [facility] [address] [id number] [place] [address] May, [facility] [place] [facility] [address] [id number] [place] [address] May, [facility] [place] [facility] [address] [id number], [place] [address] May, [facility] [address] [facility] [id number], [place] [address] May, [facility] [address] [facility] [id number], [place] [address] May, [facility] [address] [facility] [id number], [place] [address] May, [facility] [address] [facility] [id number], [place] [address] May, [facility] [address] [facility] [id number], [place] [address] May, IMMUNIZATIONS No Known Immunizations SOCIAL HISTORY Never Assessed REASON FOR VISIT Medication refill request PLAN OF CARE VITAL SIGNS MEDICATIONS Medication Instructions Dosage Frequency Start Date End Date Duration Status Zithromax Z-Nabeel 250 MG Orally Once a day 2 tablets on the first day, then 1 tablet daily for 4 days 24h Oct, 5 day(s) Active Lantus SoloStar 100 unit/ml INJECT 30 UNITS SUBCUTANEOUSLY DAILY AT BEDTIME 30 days Active Humalog KwikPen 100 unit/ml Subcutaneous before meals per sliding scale 30 days Active RESULTS No Results PROCEDURES [...]
--- OUTSIDE RECORDS SUMMARY | 2017-12-18 20:03 | XMS REPORT ---
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 Active 8524444 Problem Chronic congestive heart failure, unspecified heart failure type I50.9 Active 95676884 Problem Chronic congestive heart failure, unspecified congestive heart failure type I50.9 Active 19640305 Problem Intra-dialytic hypotension I95.3 Active 259527687 Problem Angina pectoris I20.9 Active 238883550 Problem Seasonal allergic rhinitis due to other allergic trigger J30.89 Active 342980024 ALLERGIES No Information ENCOUNTERS Encounter Location Date Diagnosis [place] [id number] [place] [address] 98725- 2341 Sep, [facility] [id number] [place] [address] 97517- 8840 Sep, [facility] [id number] [place] [address] 94778- 7627 Aug, [facility] [id number] [place] [address] 41138- 7566 Aug, 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 [facility] [id number] [place] [address] 55142- 7744 Aug, [facility] [id number] [place] [address] 34893- 8476 Aug, Diabetes type 2, controlled E11.9 and Acute pain of right knee M25.561 [facility] [address] [address]- 5867 Aug, [facility] [address] [address]- 5962 July, [facility] [id number] [place] [address] 82010- 3460 Jun, [facility] [id number] [place] [address] 21372- 2069 Jun, [facility] [id number] [place] [address] 54038- 3821 Jun, Diabetes type 2, controlled E11.9 [facility] [id number] [place] [address] 45378- 2453 Jun, [facility] [id number] [place] [address] 75206- 2506 May, [facility] [address] [address]- 2186 May, [facility] [id number] [place] [address] 45161- 1582 May, [facility] [address] [address]- 8118 May, Chronic congestive heart failure, unspecified congestive heart failure type I50.9 [facility] [id number] [address]- 0571 May, Diabetes type 2, controlled E11.9 ; BMI 50.0-59.9, adult Z68.43 ; Chronic congestive heart failure, unspecified heart failure type I50.9 ; Angina pectoris I20.9 ; Seasonal allergic rhinitis due to other allergic trigger J30.89 and Renal failure N19 [facility] [address] [address] May, [facility] [id number] [place] [address] 06882- 2344 May, [facility] [id number] [place] [address] 78600- 7998 May, [facility] [id number] [place] [address] 62045- 1605 May, [facility] [id number] [place] [address] 71779- 9436 May, [facility] [id number] [place] [address] 04977- 0678 Apr, BMI 50.0-59.9, adult Z68.43 [facility] [id number] [place] [address] 89285- 9124 Apr, BMI 50.0-59.9, adult Z68.43 ; Post-procedural fever R50.82 and Bronchitis J40 [facility] [id number] [place] [address] 80282- 4768 Apr, Chronic congestive heart failure, unspecified congestive heart failure type I50.9 [facility] [id number] [place] [address] 78052- 1156 Jan, [facility] [id number] [place] [address] 64731- 4389 Jan, Diabetes type 2, controlled E11.9 [facility] [id number] [place] [address] 97397- 3303 Jan, Neuropathy G62.9 [facility] [id number] [place] [address] 61345- 4536 Jan, [facility] [id number] [place] [address] 49219- 9646 Jan, [facility] [id number] [place] [address] 08790- 7650 Jan, [facility] [id number] [place] [address] 00035- 1035 Jan, [facility] [address] [facility] [id number] [address]- 1869 Jan, [facility] [address] [facility] [id number] [address]- 5418 Dec, [facility] [address] [facility] [id number] [address]- 7662 Dec, [facility] [address] [facility] [id number] [place] [address]- 4266 Dec, Diabetes type 2, controlled E11.9 [facility] [address] [facility] [id number] [address]- 9994 Dec, [facility] [address] [facility] [id number] [place] [address]- 0141 Dec, [facility] [id number] [address]- 1233 Dec, Chronic congestive heart failure, unspecified congestive heart failure type I50.9 [facility] [address] [facility] [id number] [place] [address]- 5277 Dec, [facility] [address] [facility] [id number] [place] [address]- 7394 Dec, [facility] [address] [facility] [id number] [address]- 4860 Nov, Chronic congestive heart failure, unspecified congestive heart failure type I50.9 [facility] [address] [id number] [address]- 4981 Nov, Chronic congestive heart failure, unspecified congestive heart failure type I50.9 [facility] [address] [facility] [id number] [address]- 6684 Nov, [facility] [address] [facility] [id number] [place] [address]- 1912 Oct, [facility] [address] [facility] [id number] [address]- 0450 Oct, [facility] [address] [address]- 6724 Oct, Chronic congestive heart failure, unspecified congestive heart failure type I50.9 [facility] [id number] [address] 2546 Oct, [facility] [id number] [place] [address] 97403- 1054 Oct, Pneumonia of both lungs due to infectious organism, unspecified part of lung J18.9 [facility] [address] [address]- 9591 Oct, [facility] [address] [address]- 6367 Oct, Diabetes type 2, controlled E11.9 [facility] [id number] [place] [address] 89579- 2375 Oct, Diabetes type 2, controlled E11.9 [facility] [address] [address]- 4745 Sep, [facility] [address] [address]- 5027 Sep, Neuropathy G62.9 [facility] [address] [address]- 8154 Aug, Intra-dialytic hypotension I95.3 [facility] [address] [address]- 3656 July, [facility] [address] [address]- 8286 July, [facility] [address] [address] 2546 July, [facility] [address] [address]- 5666 July, Amput below knee, unilat S88.119A [facility] [address] [facility] [id number] [place] [address]- 5526 May, [facility] [address] [facility] [id number] [place] [address]- 3926 May, Neuropathy G62.9 [facility] [address] [facility] [id number] [place] [address]- 4786 May, [facility] [address] [facility] [id number] [place] [address]- 0386 May, [facility] [address] [facility] [id number] [place] [address]- 6603 May, [facility] [address] [place] [address]- 7736 May, [facility] [id number] [place] [address], [place] [address]- 1481 May, Neuropathy G62.9 [facility] [address] [place] [address]- 4985 Apr, [facility] [address] [address]- 4517 Apr, [facility] [address] [place] [address]- 2741 Apr, Diabetes type 2, controlled E11.9 and Renal failure N19 [facility] [id number] [address] -1597 Apr, [facility] [id number] [place] [address]- 9227 Apr, [facility] [address] [place] [address]- 2786 Mar, [facility] [address] [place] [address]- 2995 Mar, [facility] [address] [address]- 3033 Mar, [facility] [address] [facility] [id number] [place] [address]- 3384 Mar, [facility] [id number] [place] [address] 24323- 9690 Mar, [facility] [id number] [place] [address] 24219- 9424 Jan, Localized edema R60.0 [facility] [address] [facility] [id number] [place] [address] 81449- 9735 Jan, [facility] [id number] [place] [address] 19421- 2004 Jan, [facility] [id number] [place] [address] 95846- 4785 Jan, [facility] [id number] [place] [address] 01378- 0799 Jan, [facility] [id number] [place] [address] 41688- 2398 Jan, [facility] [id number] [place] [address] 42144- 0188 Jan, [facility] [address] [address]- 7477 Dec, Diabetes type 2, controlled E11.9 and Chronic nonintractable headache, unspecified headache type R51 [facility] [address] [address]- 6010 Dec, [facility] [id number] [address]- 0730 Dec, [facility] [id number] [place] [address] 96373- 2194 Nov, [facility] [address] [address]- 1778 Nov, [facility] [id number] [address]- 9052 Oct, [facility] [id number] [place] [address] 44734- 5336 Oct, Migraine without status migrainosus, not intractable, unspecified migraine type G43.909 [facility] [id number] [place] [address] 00056- 2216 Oct, [facility] [id number] [place] [address] 27902- 3901 Sep, Amput below knee, unilat S88.119A and Neuropathy G62.9 [facility] [id number] [place] [address] 56858- 3136 Sep, [facility] [id number] [place] [address] 57917- 8626 Sep, [facility] [id number] [place] [address] 38550- 8418 Sep, [facility] [id number] [place] [address] 44741- 1330 Aug, [facility] [id number] [place] [address] 22980- 5973 Aug, [facility] [id number] [place] [address] 91678- 0830 Aug, Diabetes type 2, controlled E11.9 [facility] [id number] [place] [address] 65817 2546 Aug, [facility] [id number] [place] [address] 16178 2543 Jun, Diabetes type 2, controlled E11.9 and Neuropathy G62.9 [facility] [id number] [place] [address] 97675 2546 Jun, [facility] [id number] [place] [address] 79201 2546 Jun, [facility] [address]100[place] [address]- 5283 08 Jul, 2015 [facility] [id number] [place] [address]- 5478 Jun, [facility] [address] [place] [address]- 4733 May, [facility] [address] [address]- 7428 May, Diabetes type 2, controlled E11.9 [facility] [address] [facility] [id number] [place] [address]- 3862 May, [facility] [address] [address]- 1895 May, [facility] [address] [address]- 3437 26 May, 2015 [facility] [address] [address]- 2758 May, [facility] [address] [place] [address]- 7683 17 May, 2015 [facility] [address] [address]- 6545 16 May, 2015 [facility] [address] [address]- 1751 16 May, 2015 [facility] [address] [address]- 9748 15 May, 2015 COPD (chronic obstructive pulmonary disease) J44.9 [facility] [address] [address]- 5683 15 May, 2015 [facility] [address] [address]- 9920 12 May, 2015 [facility] [address] [address]- 8446 May, [facility] [address] [id number] [place] [address]- 6788 May, [facility] [address] [facility] [id number] [place] [address]- 4865 May, [facility] [id number] [place] [address]- 2699 May, Renal failure N19 and Pneumonia, organism unspecified, unspecified laterality, unspecified part of lung J18.9 [facility] [address] [id number] [place] [address]- 5482 Apr, [facility] [address] [facility] [id number] [place] [address]- 6842 Apr, [facility] [address] [place] [address]- 9352 Apr, [facility] [id number] [place] [address]- 5395 Apr, Diabetes mellitus 250.00 [facility] [id number] [place] [address]- 0351 Apr, [facility] [id number] [place] [address]- 4661 Apr, [facility] [id number] [place] [address]- 0230 Apr, [facility] [id number] [address]- 9674 Apr, [facility] [id number] [place] [address]- 5689 Mar, [facility] [id number] [place] [address]- 0841 Mar, [facility] [id number] 0437 Mar, [facility] [address] [address]- 6113 16 Mar, 2015 Renal failure N19 [facility] [place] [facility] [address] [id number] [place] [address]- 8372 14 Mar, 2015 [facility] [place] [facility] [address] [facility] [id number] [place] [address]- 5751 Mar, [facility] [place] [facility] [address] [facility] [id number] [place] [address]- 1440 Mar, [facility] [place] [facility] [address] [id number] [place] [address]- 6580 24 Jan, 2015 [facility] [place] [facility] [address] [facility] [id number] [place] [address], [place] [address]- 5281 Jan, [facility] [place] [facility] [address] [facility] [id number] [place] [address]- 0881 Jan, [facility] [place] [facility] [address] [facility] [id number] [place] [address]- 9181 Jan, [facility] [place] [facility] [address] [facility] [id number] [address]- 7725 Dec, [facility] [place] [facility] [address] [facility] [id number] [place] [address]- 9445 Dec, [facility] [place] [facility] [address] [facility] [id number] [place] [address]- 3827 Dec, [facility] [place] [facility] [address] [facility] [id number] [place] [address]- 4275 Nov, [facility] [place] [facility] [address] [facility] [id number] [address]- 3862 19 Nov, 2014 [facility] [place] [facility] [address] [facility] [id number] [address]- 2361 14 Nov, 2014 [facility] [place] [facility] [address] [facility] [id number] [place] [address]- 2510 Oct, [facility] [place] [facility] [address] [facility] [id number] [place] [address]- 4388 Oct, [facility] [place] [facility] [address] [facility] [id number] [address]- 6954 Oct, Renal failure 586 and Obesity 278.00 [facility] [address] [facility] [id number] [place] [address]- 4083 Oct, [facility] [address] [place] [address]- 1700 Oct, [facility] [id number] [place] [address] 00603- 7192 Oct, [facility] [id number] [place] [address], [place] [address]- 1776 Sep, [facility] [id number] [place] [address], [place] [address]- 9557 Sep, [facility] [address] [place] [address]- 4923 Sep, Diabetes mellitus 250.00 and Congestive heart failure, unspecified 428.0 [facility] [address] [place] [address]- 8869 Aug, [facility] [address] [place] [address]- 7228 Aug, [facility] [address]005[address] [address]- 3874 Aug, [facility] [address]005[address] [address]- 2900 July, [facility] [address]005[address] [address]- 2934 July, [facility] [address] [address]- 7682 July, Heart murmur, systolic 785.2 [facility] [address]005[address] [address]- 2704 July, [facility] [address] [address]- 2546 July, [facility] [place] [facility] [address] [id number] [place] [address]- 0681 14 Jun, 2014 [facility] [place] [facility] [address] [id number] [place] [address]- 0158 Jun, [facility] [place] [facility] [address] [id number] [place] [address]- 3433 May, [facility] [place] [facility] [address] [id number] [place] [address]- 8683 May, [facility] [place] [facility] [address] [id number] [place] [address]- 3573 May, [facility] [place] [facility] [address] [id number] [place] [address]- 8047 May, [facility] [place] [facility] [address] [id number] [place] [address]- 8552 16 May, 2014 [facility] [place] [facility] [address] [id number] [place] [address]- 3026 16 May, 2014 [facility] [place] [facility] [address] [id number] [place] [address]- 1725 May, [facility] [place] [facility] [address] [id number] [place] [address] May, [facility] [place] [facility] [address] [id number] [place] [address] May, [facility] [place] [facility] [address] [id number] [place] [address] May, [facility] [place] [facility] [address] [id number] [place] [address] May, [facility] [place] [facility] [address] [id number] [place] [address] May, [facility] [place] [facility] [address] [id number] [place] [address] May, [facility] [place] [facility] [address] [id number] [place] [address] May, 2014 [facility] [place] [facility] [address] [id number] [place] [address] May, 2014 [facility] [place] [facility] [address] [id number] [place] [address] May, 2014 [facility] [place] [facility] [address] [id number] [place] [address] May, 2014 [facility] [place] [facility] [address] [id number] [place] [address] May, 2014 [facility] [place] [facility] [address] [id number] [place] [address] May, 2014 [facility] [place] [facility] [address] [facility] [id number] [place] [address] May, 2014 [facility] [place] [facility] [address] [id number] [place] [address] May, 2014 [facility] [place] [facility] [address] [facility] [id number] [place] [address] May, 2014 [facility] [place] [facility] [address] [facility] [id number] [place] [address] May, 2014 [facility] [place] [facility] [address] [facility] [id number] [place] [address] May, 2014 [facility] [place] [facility] [address] [id number] [address] May, 2014 [facility] [place] [facility] [address] [facility] [id number] [place] [address] May, 2014 [facility] [place] [facility] [address] [id number] [place] [address] Apr, [facility] [place] [facility] [address] [facility] [id number] [place] [address] Apr, [facility] [place] [facility] [address] [id number] [place] [address] 14 Apr, 2014 [facility] [place] [facility] [address] [id number] [place] [address] Apr, [facility] [place] [facility] [address] [id number] [place] [address] Apr, [facility] [place] [facility] [address] [id number] [place] [address] Apr, [facility] [place] [facility] [address] [id number] [place] [address] Apr, [facility] [place] [facility] [address] [id number] [place] [address] Apr, [facility] [place] [facility] [address] [id number] [place] [address] Mar, [facility] [place] [facility] [address] [id number] [place] [address] Mar, [facility] [place] [facility] [address] [id number] [place] [address] Mar, [facility] [place] [facility] [address] [id number] [place] [address] Mar, [facility] [place] [facility] [address] [id number] [place] [address] Mar, [facility] [facility] [address] [id number] [place] [address] Mar, [facility] [place] [facility] [address] [id number] [place] [address] 6643 Mar, [facility] [place] [facility] [address] [id number] [place] [address] 3821 Mar, [facility] [place] [facility] [address] [id number] [place] [address]- 8591 Mar, [facility] [place] [facility] [address] [id number] [place] [address] Mar, [facility] [place] [facility] [address] [id number] [place] [address] 7040 Mar, [facility] [place] [facility] [address] [id number] [place] [address] 1948 Mar, [facility] [place] [facility] [address] [id number] [place] [address] 2244 Mar, [facility] [place] [facility] [address] [id number] [place] [address]- 5436 Mar, [facility] [place] [facility] [address] [id number] [place] [address]- 0957 Mar, [facility] [place] [facility] [address] [id number] [place] [address] 6759 Mar, [facility] [place] [facility] [address] [id number] [place] [address]- 6642 Mar, [facility] [place] [facility] [address] [id number] [place] [address]- 3298 Mar, [facility] [place] [facility] [address] [id number] [place] [address]- 2767 Mar, [facility] [place] [facility] [address] [id number] [place] [address]- 1583 Mar, [facility] [place] [facility] [address] [id number] [place] [address]- 0201 Mar, [facility] [place] [facility] [address] [id number] [place] [address]- 9877 Mar, [facility] [place] [facility] [address] [id number] [place] [address]- 1391 Jan, [facility] [place] [facility] [address] [id number] [place] [address]- 2112 Jan, [facility] [place] [facility] [address] [id number] [place] [address]- 0597 Jan, [facility] [place] [facility] [address] [id number] [place] [address]- 3389 Jan, [facility] [place] [facility] [address] [id number] [place] [address]- 2617 Jan, [facility] [place] [facility] [address] [id number] [place] [address]- 5201 Jan, [facility] [place] [facility] [address] [id number] [place] [address]- 0913 Jan, [facility] [place] [facility] [address] [id number] [place] [address]- 3617 Jan, [facility] [place] [facility] [address] [id number] [place] [address]- 5639 Jan, [facility] [place] [facility] [address] [id number] [place] [address]- 5072 Jan, [facility] [place] [facility] [address] [id number] [place] [address]- 5260 Jan, [facility] [place] [facility] [address] [id number] [place] [address]- 8443 Jan, [facility] [place] [facility] [address] [id number] [place] [address]- 0461 Jan, [facility] [place] [facility] [address] [id number] [place] [address]- 2778 Jan, [facility] [place] [facility] [address] [id number] [address]- 4914 Jan, [facility] [place] [facility] [address] [id number] [place] [address]- 4981 Jan, [facility] [place] [facility] [address] [id number] [place] [address]- 6396 Jan, [facility] [place] [facility] [address] [id number] [place] [address]- 7675 Jan, [facility] [place] [facility] [address] [id number] [place] [address]- 4792 Jan, [facility] [place] [facility] [address] [id number] [place] [address]- 9061 Jan, [facility] [place] [facility] [address] [id number] [place] [address]- 5787 Dec, [facility] [place] [facility] [address] [id number] [place] [address]- 8826 Dec, [facility] [place] [facility] [address] [id number] [place] [address]- 8066 Dec, [facility] [place] [facility] [address] [id number] [place] [address]- 2976 Dec, [facility] [place] [facility] [address] [id number] [place] [address]- 8230 Dec, [facility] [place] [address] [id number] [place] [address]- 9880 Dec, [facility] [place] [facility] [address] [id number] [place] [address]- 4941 Dec, [facility] [place] [facility] [address] [id number] [place] [address]- 0332 Dec, [facility] [address] [id number] [place] [address]- 7498 Dec, [facility] [address] [id number] [place] [address]- 3791 Dec, [facility] [address] [id number] [place] [address]- 3939 Dec, [facility] [address] [id number] [place] [address]- 4710 Dec, [facility] [address] [id number] [place] [address]- 0408 Dec, [facility] [place] [address] [id number] [place] [address]- 6635 Dec, [facility] [address] [id number] [place] [address]- 9672 Dec, [facility] [place] [address] [id number] [place] [address]- 9731 22 Nov, 2013 [facility] [address] [id number] [place] [address]- 0792 22 Nov, 2013 [facility] [address] [id number] [place] [address]- 7017 19 Nov, 2013 [facility] [address] [id number] [place] [address]- 7706 Nov, 2013 [facility] [address] [id number] [place] [address]- 9510 Nov, 2013 [facility] [address] [id number] [place] [address]- 6972 13 Nov, 2013 [facility] [address] [id number] [place] [address]- 7879 10 Nov, 2013 [facility] [address] [id number] [place] [address]- 2679 10 Nov, 2013 [facility] [address] [id number] [place] [address]- 3541 08 Nov, 2013 [facility] [address] [id number] [place] [address]- 9689 05 Nov, 2013 [facility] [address] [id number] [place] [address]- 5684 Nov, 2013 [facility] [address] [id number] [address] 0838 Nov, 2013 [facility] [address] [id number] [place] [address]- 0247 Nov, [facility] [address] [id number] [place] [address]- 8180 Oct, [facility] [address] [id number] [place] [address]- 7982 Oct, [facility] [address] [id number] [place] [address]- 7585 Oct, [facility] [address] [id number] [place] [address]- 8845 Oct, [facility] [address] [id number] [place] [address]- 1862 Oct, [facility] [address] [id number] [place] [address]- 8553 Sep, [facility] [address] [id number] [place] [address]- 1665 Sep, [facility] [address] [id number] [place] [address]- 8635 Sep, [facility] [address] [id number] [place] [address]- 7163 Sep, [facility] [address] [id number] [place] [address]- 9311 Aug, [facility] [address] [id number] [place] [address]- 8008 Aug, [facility] [address] [id number] [place] [address]- 3432 Aug, [facility] [address] [facility] [id number] [place] [address]- 3307 Aug, [facility] [address] [id number] [place] [address]- 9920 Aug, [facility] [address] [id number] [place] [address]- 1569 Aug, [facility] [address] [id number] [place] [address]- 0209 Aug, [facility] [address] [id number] [place] [address]- 8736 Aug, [facility] [address] [id number] [place] [address]- 2152 Aug, [facility] [address] [id number] [place] [address]- 9564 Aug, [facility] [address] [id number] [place] [address]- 3896 Aug, [facility] [address] [id number] [place] [address]- 4042 Aug, [facility] [address] [id number] [place] [address]- 5266 Aug, [facility] [address] [id number] [place] [address]- 8436 Aug, [facility] [address] [id number] [place] [address]- 7841 Aug, [facility] [address] [id number] [place] [address]- 7424 Aug, [facility] [address] [id number] [place] [address]- 2923 Aug, [facility] [address] [id number] [place] [address]- 5470 Aug, [facility] [address] [id number] [place] [address]- 7315 Aug, [facility] [address] [id number] [place] [address]- 4848 Aug, [facility] [address] [id number] [place] [address]- 5507 Aug, [facility] [address] [id number] [place] [address]- 0006 Aug, [facility] [address] [id number] [place] [address]- 0376 Aug, [facility] [address] [id number] [place] [address]- 0518 Aug, [facility] [address] [id number] [place] [address]- 1200 July, [facility] [address] [id number] [place] [address]- 6045 July, [facility] [address] [id number] [place] [address]- 4696 July, [facility] [address] [id number] [place] [address]- 4746 July, [facility] [address] [id number] [place] [address]- 1213 July, [facility] [address] [id number] [place] [address]- 2864 July, [facility] [address] [id number] [place] [address]- 6836 Jun, [facility] [address] [id number] [place] [address]- 0726 Jun, [facility] [address] [id number] [place] [address]- 5758 Jun, [facility] [address] [id number] [place] [address]- 5894 Jun, [facility] [address] [id number] [place] [address]- 3644 Jun, [facility] [address] [id number] [place] [address]- 8691 Jun, [facility] [address] [id number] [place] [address]- 7957 Jun, [facility] [address] [id number] [place] [address]- 4322 Jun, [facility] [address] [id number] [place] [address]- 3364 Jun, [facility] [address] [id number] [place] [address]- 0582 Jun, [facility] [address] [id number] [place] [address]37 Jun, [facility] [address] [id number] [place] [address]- 3248 Jun, [facility] [address] [id number] [place] [address]376 Jun, [facility] [place] [address] [id number] [place] [address]- 7756 Jun, [facility] [address] [id number] [place] [address]- 2748 Jun, [facility] [address] [id number] [place] [address]- 5094 May, [facility] [address] [id number] [place] [address]- 7270 May, [facility] [place] [address] [id number] [place] [address]- 2472 May, [facility] [address] [id number] [place] [address]- 5768 May, [facility] [place] [address] [id number] [place] [address]- 5932 May, [facility] [place] [address] [id number] [place] [address]- 8473 May, [facility] [address] [id number] [place] [address]- 7524 May, [facility] [address] [id number] [place] [address]- 5852 May, [facility] [place] [address] [id number] [place] [address]- 8121 May, [facility] [address] [id number] [place] [address]- 3772 May, [facility] [address] [id number] [place] 9768 May, [facility] [place] [facility] [address] [id number] [place] [address]- 8627 May, [facility] [address] [id number] [place] [address]- 7807 May, [facility] [address] [id number] [place] [address]- 5248 May, [facility] [place] [facility] [address] [id number] [place] [address]- 9845 May, [facility] [place] [address] [id number] [place] [address]- 8958 May, [facility] [place] [facility] [address] [id number] [place] [address]- 6411 May, [facility] [place] [facility] [address] [id number] [place] [address]- 4542 Apr, [facility] [place] [facility] [address] [id number] [place] [address]- 5813 Apr, [facility] [place] [facility] [address] [id number] [place] [address]- 0502 Apr, [facility] [place] [facility] [address] [id number] [place] [address]- 4613 Apr, [facility] [place] [facility] [address] [id number] [place] [address]- 3159 Apr, [facility] [place] [address] [id number] [place] [address]- 7810 Apr, [facility] [place] [facility] [address] [id number] [place] [address]- 2711 Apr, [facility] [place] [facility] [address] [id number] [place] [address]- 1412 Apr, [facility] [place] [facility] [address] [id number] [place] [address]- 2023 Apr, [facility] [place] [facility] [address] [id number] [place] [address]- 8389 Apr, [facility] [address] [id number] [place] [address]- 8986 Apr, [facility] [place] [address] [id number] [place] [address]- 9888 Apr, [facility] [address] [id number] [place] [address]- 6860 Apr, [facility] [place] [facility] [address] [id number] [place] [address]- 4261 Apr, [facility] [address] [id number] [place] [address]- 3770 Apr, [facility] [place] [facility] [address] [id number] [place] [address]- 0815 Apr, [facility] [address] [id number] [place] [address]- 9133 30 Mar, 2013 [facility] [place] [facility] [address] [id number] [place] [address]- 3325 30 Mar, 2013 [facility] [address] [id number] [place] [address]- 6555 30 Mar, 2013 [facility] [place] [facility] [address] [facility] [id number] [place] [address]- 3552 30 Mar, 2013 [facility] [place] [facility] [address] [id number] [place] [address]- 7146 18 Mar, 2013 [facility] [place] [facility] [address] [id number] [place] [address]- 1199 18 Mar, 2013 [facility] [place] [facility] [address] [id number] [place] [address]- 7154 18 Mar, 2013 [facility] [place] [facility] [address] [id number] [place] [address]- 6852 18 Mar, 2013 [facility] [place] [facility] [address] [id number] [place]23 17 Mar, 2013 [facility] [place] [facility] [address] [id number] [place] [address]- 9907 Mar, [facility] [place] [facility] [address] [id number] [place] [address]- 9446 05 Mar, 2013 [facility] [place] [facility] [address] [id number] [place] [address]- 5526 05 Mar, 2013 [facility] [place] [facility] [address] [id number] [place] [address]- 2456 Mar, [facility] [place] [facility] [address] [id number] [place] [address]- 0735 Mar, [facility] [place] [facility] [address] [id number] [place] [address]- 1194 Mar, [facility] [place] [facility] [address] [id number] [place] [address]- 0687 Mar, [facility] [place] [facility] [address] [id number] [place] [address]- 0788 Mar, [facility] [place] [facility] [address] [id number] [place] [address]- 6910 Mar, [facility] [place] [facility] [address] [id number] [place] [address]- 5278 Jan, [facility] [place] [facility] [address] [id number] [place] [address]- 7053 Jan, [facility] [place] [facility] [address] [id number] [place] [address]- 9711 Jan, [facility] [place] [facility] [address] [id number] [place] [address]- 4459 Jan, [facility] [place] [facility] [address] [id number] [place] [address]- 2736 27 Nov, 2012 [facility] [place] [facility] [address] [id number] [place] [address]- 7993 10 Nov, 2012 [facility] [place] [facility] [address] [id number] [place] [address]- 3849 Nov, [facility] [place] [facility] [address] [id number] [place] [address]- 1638 Nov, [facility] [place] [facility] [address] [id number] [place] [address]- 8920 Oct, [facility] [place] [facility] [address] [id number] [place] [address]- 8062 Oct, [facility] [place] [facility] [address] [id number] [place] [address]- 0991 Oct, [facility] [place] [facility] [address] [id number] [place] [address]- 2299 Oct, [facility] [place] [facility] [address] [id number] [place] [address]- 3288 Sep, [facility] [place] [facility] [address] [id number] [place] [address]- 3809 Sep, [facility] [place] [facility] [address] [id number] [place] [address]- 4419 Sep, [facility] [place] [facility] [address] [id number] [place] [address]- 0163 Sep, [facility] [place] [facility] [address] [id number] [place] [address]- 6641 Sep, [facility] [place] [facility] [address] [id number] [place] [address]- 2136 Sep, [facility] [place] [facility] [address] [id number] [address]- 7317 Sep, [facility] [place] [facility] [address] [id number] [place] [address]- 7443 Sep, [facility] [place] [facility] [address] [id number] [place] [address]- 7842 Sep, [facility] [place] [facility] [address] [id number] [place] [address]- 5637 Aug, [facility] [place] [facility] [address] [id number] [place] [address]- 3406 Aug, [facility] [address] [id number] [place] [address]- 7786 Aug, [facility] [address] [id number] [place] [address]- 5089 Aug, [facility] [address] [id number] [place] [address]- 0269 July, [facility] [address] [id number] [place] [address]- 0568 July, [facility] [address] [id number] [place] [address] July, [facility] [address] [id number] [place] [address] July, [facility] [address] [id number] [place] [address] July, [facility] [address] [id number] [place] [address] July, [facility] [address] [id number] [place] [address] July, [facility] [address] [id number] [place] [address] Jun, [facility] [address] [id number] [place] [address] May, [facility] [address] [id number] [place] [address] May, [facility] [place] [facility] [address] [id number] [place] [address] May, [facility] [place] [facility] [address] [id number] [place] [address] May, [facility] [address] [id number] [place] [address] May, [facility] [address] [facility] [id number] [place] [address] May, [facility] [address] [facility] [id number] [place] [id number] May, [facility] [address] [facility] [id number] [place] [address] May, IMMUNIZATIONS No Known Immunizations SOCIAL HISTORY Never Assessed REASON FOR VISIT appointment PLAN OF CARE VITAL SIGNS MEDICATIONS [...]
--- OUTSIDE RECORDS SUMMARY | 2017-12-18 20:04 | XMS REPORT ---
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 Active 1142759 Problem Chronic congestive heart failure, unspecified heart failure type I50.9 Active 22435844 Problem Chronic congestive heart failure, unspecified congestive heart failure type I50.9 Active 17357329 Problem Intra-dialytic hypotension I95.3 Active 310842504 Problem Angina pectoris I20.9 Active 864051485 Problem Seasonal allergic rhinitis due to other allergic trigger J30.89 Active [id number] ALLERGIES No Information ENCOUNTERS Encounter Location Date Diagnosis [facility] [id number] [place] [address] 92694- 2367 Sep, [facility] [id number] [place] [address] 81793- 1440 Sep, [facility] [id number] [place] [address] 75082- 6822 Aug, [facility] [id number] [place] [address] 85082- 4773 Aug, 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 [facility] [id number] [place] [address] 96253- 1173 Aug, [facility] [id number] [place] [address] 54330- 9407 Aug, Diabetes type 2, controlled E11.9 and Acute pain of right knee M25.561 [facility] [id number] [place] [address] 79562- 5165 Aug, [facility] [address], [place] [address] 3813 July, [facility] [id number] [place] [address] 58795- 3766 Jun, [facility] [id number] [place] [address] 33361- 8269 Jun, [facility] [id number] [place] [address] 89358- 5509 Jun, Diabetes type 2, controlled E11.9 [facility] [id number] [place] [address] 90686- 3721 Jun, [facility] [id number] [place] [address] 18484- 4430 May, [facility] [id number] [place] [address] 54173- 2798 May, [facility] [id number] [place] [address] 77366- 1059 May, [facility] [address] [address]- 7001 May, Chronic congestive heart failure, unspecified congestive heart failure type I50.9 [facility] [address], [place] [address]- 8776 May, Diabetes type 2, controlled E11.9 ; BMI 50.0-59.9, adult Z68.43 ; Chronic congestive heart failure, unspecified heart failure type I50.9 ; Angina pectoris I20.9 ; Seasonal allergic rhinitis due to other allergic trigger J30.89 and Renal failure N19 [facility] [address] [address] May, [facility] [address] [address]- 9185 May, [facility] [id number] [place] [address] 23615- 8492 May, [facility] [address], [place] [address]- 8482 May, [facility] [id number] [place] [address] 00298- 7940 May, [facility] [id number] [place] [address] 69041- 1825 Apr, BMI 50.0-59.9, adult Z68.43 [facility] [id number] [place] [address] 71386- 7820 Apr, BMI 50.0-59.9, adult Z68.43 ; Post-procedural fever R50.82 and Bronchitis J40 [facility] [address], [place] [address]- 3625 Apr, Chronic congestive heart failure, unspecified congestive heart failure type I50.9 [facility] [id number] [place] [address] 05087- 0302 Jan, [facility] [id number] [place] [address] 75898- 2026 Jan, Diabetes type 2, controlled E11.9 [facility] [id number] [place] [address] 30600- 6989 Jan, Neuropathy G62.9 [facility] [address], [place] [address]- 5662 Jan, [facility] [id number] [place] [address] 67500- 6605 Jan, [facility] [address], [place] [address]- 7146 Jan, [facility] [id number], [place] [address]- 0179 Jan, [facility] [address] [id number], [place] [address]- 6018 Jan, [facility] [address] [facility] [id number], [place] [address]- 0464 Dec, [facility] [address] [facility] [id number], [place] [address]- 3990 Dec, [facility] [address] [facility] [id number], [place] [address]- 3386 Dec, Diabetes type 2, controlled E11.9 [facility] [address] [facility] [id number] [place] [address]- 5418 Dec, [facility] [id number], [place] [address]- 9607 Dec, [facility] [id number] [address]- 4305 Dec, Chronic congestive heart failure, unspecified congestive heart failure type I50.9 [facility] [address] [facility] [id number], [place] [address]- 6812 Dec, [facility] [address] [facility] [id number], [place] [address]- 5274 Dec, [facility] [address] [facility] [id number], [place] [address]- 9943 Nov, Chronic congestive heart failure, unspecified congestive heart failure type I50.9 [facility] [address] [facility] [id number], [place] [address]- 5648 Nov, Chronic congestive heart failure, unspecified congestive heart failure type I50.9 [facility] [address] [facility] [id number], [place] [address]- 3428 Nov, [facility] [address] [facility] [id number], [place] [address]- 7008 Oct, [facility] [address], [place] [address]- 9088 Oct, [facility] [address], [place] [address]- 3610 Oct, Chronic congestive heart failure, unspecified congestive heart failure type I50.9 [facility] [address], [place] [address]- 8530 Oct, [facility] [id number] [place] [address] 17907- 3398 Oct, Pneumonia of both lungs due to infectious organism, unspecified part of lung J18.9 [facility] [id number] [place] [address] 72122- 7813 Oct, [facility] [id number] [place] [address] 57813- 9920 Oct, Diabetes type 2, controlled E11.9 [facility] [id number] [place] [address] 18198- 9121 Oct, Diabetes type 2, controlled E11.9 [facility] [address], [place] [address]- 0846 Sep, [facility] [address], [place] [address]- 9726 Sep, Neuropathy G62.9 [facility] [address], [place] [address]- 2964 Aug, Intra-dialytic hypotension I95.3 [facility] [address], [place] [address]- 4233 July, [facility] [id number], [place] [address]- 0819 July, [facility] [address], [place] [address]- 4777 July, [facility] [address], [place] [address]- 3511 July, Amput below knee, unilat S88.119A [facility] [address] [id number] [place] [address]- 6956 May, [facility] [address] [facility] [id number] [place] [address] 2546 May, Neuropathy G62.9 [facility] [address] [facility] [id number] [place] [address] 2546 May, [facility] [address] [facility] [id number] [place] [address] 2546 May, [facility] [address] [facility] [id number] [place] [address]- 6077 May, [facility] [address] [facility] [id number] [place] [address]- 1406 May, [facility] [id number] [place] [address], [place] [address]- 8550 May, Neuropathy G62.9 [facility] [address] [facility] [id number] [place] [address]- 8573 Apr, [facility] [id number] [place] [address]- 3176 Apr, [facility] [id number], [place] [address]- 2466 Apr, Diabetes type 2, controlled E11.9 and Renal failure N19 [facility] [address] [facility] [id number], [place] [address] -0892 Apr, [facility] [address] [facility] [id number] [place] [address]- 7324 Apr, [facility] [id number], [place] [address] 2546 Mar, [facility] [id number] [place] [address]- 7511 Mar, [facility] [address], [place] [address]- 1025 Mar, [facility] [id number] [place] [address] 32952- 5996 Mar, [facility] [address], [place] [address]- 1548 Mar, [facility] [id number] [place] [address] 57026- 1354 Jan, Localized edema R60.0 [facility] [address] [facility] [id number] [place] [address] 77236- 2532 Jan, [facility] [id number] [place] [address] 40172- 9369 Jan, [facility] [id number] [place] [address] 33176- 0317 Jan, [facility] [id number] [place] [address] 90193- 2636 Jan, [facility] [id number] [place] [address] 42193- 7732 Jan, [facility] [id number] [place] [address] 26977- 2163 Jan, [facility] [address], [place] [address]- 4312 Dec, Diabetes type 2, controlled E11.9 and Chronic nonintractable headache, unspecified headache type R51 [facility] [address], [place] [address]- 8822 Dec, [facility] [id number] [place] [address] 30966- 9690 Dec, [facility] [id number], [place] [address]- 4574 Nov, [facility] [id number], [place] [address]- 6333 Nov, [facility] [id number], [place] [address]- 7239 Oct, [facility] [id number] [place] [address] 62246- 9146 Oct, Migraine without status migrainosus, not intractable, unspecified migraine type G43.909 [facility] [id number] [place] [address] 54187- 3476 Oct, [facility] [id number] [place] [address] 63045- 8100 Sep, Amput below knee, unilat S88.119A and Neuropathy G62.9 [facility] [id number] [place] [address] 75239- 3186 Sep, [facility] [id number] [place] [address] 43569- 6056 Sep, [facility] [id number] [place] [address] 48017- 8549 Sep, [facility] [id number] [place] [address] 66742- 4351 Aug, [facility] [id number] [place] [address] 69049- 7108 Aug, [facility] [id number] [place] [address] 17938- 7189 Aug, Diabetes type 2, controlled E11.9 [facility] [id number] [place] [address] 34153 2546 Aug, [facility] [id number], [place] [address]- 3809 Jun, Diabetes type 2, controlled E11.9 and Neuropathy G62.9 [facility] [id number], [place] [address] 2546 Jun, [facility] [id number] [place] [address] 77299- 9563 Jun, [facility] [address] [facility] [id number], [place] [address]- 0708 Jun, [facility] [id number] [place] [address]- 6325 Jun, [facility] [address] [facility] [id number], [place] [address]- 5855 May, [facility] [address] [facility] [id number] [place] [address] 97601- 2033 May, Diabetes type 2, controlled E11.9 [facility] [address] [facility] [id number] [place] [address]- 9939 May, [facility] [id number], [place] [address]- 8148 May, [facility] [id number], [place] [address]- 6989 26 May, 2015 [facility] [address], [place] [address]- 1401 25 May, 2015 [facility] [address], [place] [address]- 2517 17 May, 2015 [facility] [address], [place] [address]- 0804 16 May, 2015 [facility] [address], [place] [address]- 7615 16 May, 2015 [facility] [id number], [place] [address]- 5065 15 May, 2015 COPD (chronic obstructive pulmonary disease) J44.9 [facility] [id number], [place] [address]- 6272 15 May, 2015 [facility] [id number], [place] [address]- 8747 12 May, 2015 [facility] [id number], [place] [address]- 4040 May, [facility] [id number] [address]- 6493 May, [facility] [address] [facility] [id number] [place] [address]- 9341 May, [facility] [id number] [address]- 1696 May, Renal failure N19 and Pneumonia, organism unspecified, unspecified laterality, unspecified part of lung J18.9 [facility] [address] [facility] [id number] [place] [address]- 0485 Apr, [facility] [address] [facility] [id number], [place] [address]- 8174 Apr, [facility] [address] [place] [address]- 0911 Apr, [facility] [id number], [place] [address]- 3873 Apr, Diabetes mellitus 250.00 [facility] [id number], [place] [address]- 3496 Apr, [facility] [id number], [place] [address]- 3497 Apr, [facility] [id number], [place] [address]- 2530 Apr, [facility] [id number], [place] [address]- 4610 Apr, [facility] [id number], [place] [address]- 1572 Mar, [facility] [id number], [place] [address]- 3558 Mar, [facility] [id number], [place] [address]- 2468 Mar, [facility] [id number] [address]- 1142 16 Mar, 2015 Renal failure N19 [facility] [place] [facility] [address] [id number] [place] [address]- 2561 14 Mar, 2015 [facility] [place] [facility] [address] [id number] [place] [address]- 6902 Mar, [facility] [place] [facility] [address] [id number] [place] [address]- 1442 Mar, [facility] [place] [facility] [address] [id number] [place] [address]- 8310 24 Jan, 2015 [facility] [place] [facility] [address] [id number] [place] [address]- 0813 Jan, [facility] [place] [facility] [address] [facility] [id number] [place] [address]- 8620 Jan, [facility] [place] [facility] [address] [facility] [id number] [place] [address]- 1795 Jan, [facility] [place] [facility] [address] [facility] [id number] [place] [address]- 7401 Dec, [facility] [place] [facility] [address] [facility] [id number] [place] [address]- 5109 Dec, [facility] [place] [facility] [address] [facility] [id number] [place] [address]- 4373 Dec, [facility] [place] [facility] [address] [facility] [id number] [place] [address]- 8765 Nov, [facility] [place] [facility] [address] [id number] [place] [address]- 6379 19 Nov, 2014 [facility] [place] [facility] [address] [facility] [id number] [place] 6781 Nov, [facility] [place] [facility] [address] [facility] [id number] [place] 5601 Oct, [facility] [place] [facility] [address] [facility] [id number] [place] [address]- 1655 Oct, [facility] [address], [place] [address]- 0834 Oct, Renal failure 586 and Obesity 278.00 [facility] [address] [facility] [id number], [place] [address]- 3046 Oct, [facility] [address], [place] [address]- 9070 Oct, [facility] [id number], [place] [address]- 3450 Oct, [facility] [id number] [place] [address] 50540- 3735 Sep, [facility] [id number], [place] [address]- 2925 Sep, [facility] [id number] [place] [address] 64004- 4305 Sep, Diabetes mellitus 250.00 and Congestive heart failure, unspecified 428.0 [facility] [address], [place] [address]- 3476 Aug, [facility] [address], [place] [address]- 9758 Aug, [facility] [address], [place] [address]- 8826 Aug, [facility] [address], [place] [address]- 2882 July, [facility] [id number], [place] [address]- 0793 July, [facility] [address], [place] [address]- 1344 July, Heart murmur, systolic 785.2 [facility] [id number], [place] [address]- 1376 July, [facility] [id number] [address]- 5277 July, [facility] [place] [facility] [address] [id number] [place] [address]- 4840 14 Jun, 2014 [facility] [place] [facility] [address] [id number] [place] [address]- 3574 Jun, [facility] [place] [facility] [address] [id number] [place] [address]- 5026 May, [facility] [place] [facility] [address] [id number] [place] [address]- 9773 May, [facility] [place] [facility] [address] [id number] [place] [address]- 4557 May, [facility] [place] [facility] [address] [id number] [place] [address]- 8041 May, [facility] [place] [facility] [address] [id number] [place] [address]- 5322 16 May, 2014 [facility] [place] [facility] [address] [id number] [place] [address]- 4259 16 May, 2014 [facility] [place] [facility] [address] [id number] [place] [address]- 7971 May, [facility] [place] [facility] [address] [facility] [id number] [place] [address]- 6688 May, [facility] [place] [facility] [address] [id number] [place] [address]- 6304 May, [facility] [place] [facility] [address] [facility] [id number] [place] [address]- 2546 May, [facility] [place] [facility] [address] [id number] [place] [address]- 4072 May, [facility] [place] [facility] [address] [id number] [place] [address]- 3476 May, [facility] [place] [facility] [address] [id number] [place] [address]- 5783 May, [facility] [place] [facility] [address] [id number] [place] [address]- 5440 May, 2014 [facility] [place] [facility] [address] [id number] [place] [address]- 5586 May, 2014 [facility] [place] [facility] [address] [facility] [id number] [place] [address]- 4963 May, 2014 [facility] [place] [facility] [address] [id number] [place] [address]- 0693 May, 2014 [facility] [place] [facility] [address] [id number] [place] [address] May, 2014 [facility] [place] [facility] [address] [facility] [id number] [place] [address] May, 2014 [facility] [place] [facility] [address] [facility] [id number] [place] [address] May, 2014 [facility] [place] [facility] [address] [id number] [place] [address] May, 2014 [facility] [place] [facility] [address] [id number] [place] [address] May, 2014 [facility] [place] [facility] [address] [facility] [id number] [place] [address] May, 2014 [facility] [place] [facility] [address] [facility] [id number] [place] [address] May, 2014 [facility] [place] [facility] [address] [facility] [id number] [place] [address] May, 2014 [facility] [place] [facility] [address] [facility] [id number] [place] [address] May, 2014 [facility] [place] [facility] [address] [facility] [id number] [place] [address] Apr, [facility] [place] [facility] [address] [facility] [id number] [place] [address] Apr, [facility] [place] [facility] [address] [id number] [place] [address] 14 Apr, 2014 [facility] [place] [facility] [address] [id number] [place] [address] 13 Apr, 2014 [facility] [place] [facility] [address] [id number] [place] [address] Apr, [facility] [place] [facility] [address] [id number] [place] [address] Apr, [facility] [place] [facility] [address] [id number] [place] [address] Apr, [facility] [place] [facility] [address] [id number] [place] [address] Apr, [facility] [place] [facility] [address] [id number] [place] [address] Mar, [facility] [place] [facility] [address] [id number] [place] [address] Mar, [facility] [place] [facility] [address] [id number] [place] [address] Mar, [facility] [place] [facility] [address] [id number] [place] [address] Mar, [facility] [place] [facility] [address] [id number] [place] [address]- [address] Mar, [facility] [place] [facility] [address] [id number] [place] [address] Mar, [facility] [place] [facility] [address] [id number] [place] [address] Mar, [facility] [place] [facility] [address] [id number] [place] [address] Mar, [facility] [place] [facility] [address] [id number] [place] [address] Mar, [facility] [place] [facility] [address] [id number] [place] [address] Mar, [facility] [place] [facility] [address] [id number] [place] [address] Mar, [facility] [place] [facility] [address] [id number] [place] [address] Mar, [facility] [place] [facility] [address] [facility] [id number] [place] [address] Mar, [facility] [place] [facility] [address] [id number] [place] [address] Mar, [facility] [place] [facility] [address] [id number] [place] [address] Mar, [facility] [place] [facility] [address] [id number] [place] [address] Mar, [facility] [facility] [address] [id number] [place] [address] 140[address] Mar, [facility] [place] [facility] [address] [id number] [place] [address] 5894 Mar, [facility] [place] [facility] [address] [id number] [place] [address] 9019 Mar, [facility] [place] [facility] [address] [id number] [place] [address] 8489 Mar, [facility] [place] [facility] [address] [id number] [place] [address]- 8443 Mar, [facility] [place] [facility] [address] [id number], [place] [address] 7[address] Mar, [facility] [place] [facility] [address] [id number] [place] [address] Jan, [facility] [place] [facility] [address] [id number] [place] [address]- 6816 Jan, [facility] [place] [facility] [address] [id number] [place] [address]- 2882 Jan, [facility] [place] [facility] [address] [id number] [place] [address]- 9749 Jan, [facility] [place] [facility] [address] [id number] [place] [address]- 4091 Jan, [facility] [place] [facility] [address] [id number] [place] [address]- 1384 Jan, [facility] [place] [facility] [address] [id number] [place] [address]- 3493 Jan, [facility] [place] [facility] [address] [id number] [place] [address]- 1650 Jan, [facility] [place] [facility] [address] [id number] [place] [address]- 0298 Jan, [facility] [place] [facility] [address] [id number] [place] [address]- 9458 Jan, [facility] [place] [facility] [address] [id number] [place] [address]- 3483 Jan, [facility] [place] [facility] [address] [id number] [place] [address]- 5852 Jan, [facility] [place] [facility] [address] [id number] [place] [address]- 3549 Jan, [facility] [place] [facility] [address] [id number] [place] [address]- 3637 Jan, [facility] [place] [facility] [address] [id number] [place] [address]- 9936 Jan, [facility] [place] [facility] [address] [id number] [place] [address]- 0386 Jan, [facility] [place] [facility] [address] [id number] [place] [address]- 5054 Jan, [facility] [place] [facility] [address] [id number] [place] [address]- 9621 Jan, [facility] [place] [facility] [address] [id number] [place] [address]- 5384 Jan, [facility] [place] [address] [id number] [place] [address]- 0566 Jan, [facility] [place] [facility] [address] [id number] [place] [address]- 9801 Dec, [facility] [place] [facility] [address] [id number] [place] [address]- 4420 Dec, [facility] [place] [address] [id number] [place] [address]- 5738 Dec, [facility] [place] [address] [id number] [place] [address]- 5654 Dec, [facility] [place] [facility] [address] [id number] [place] [address]- 0530 Dec, [facility] [place] [facility] [address] [id number] [place] [address]- 7541 Dec, [facility] [address] [id number] [place] [address]- 2930 Dec, [facility] [place] [address] [id number] [place] [address]- 5791 Dec, [facility] [address] [id number] [place] [address]- 5266 Dec, [facility] [address] [id number] [place] [address]- 8733 Dec, [facility] [place] [address] [id number] [place] [address]- 4845 Dec, [facility] [place] [facility] [address] [id number] [place] [address]- 8859 Dec, [facility] [place] [address] [id number] [place] [address]- 1929 Dec, [facility] [place] [facility] [address] [id number] [place] [address] Dec, [facility] [address] [id number], [place] [address] Dec, [facility] [address] [id number] [place] [address]- 7289 22 Nov, 2013 [facility] [address] [id number] [place] [address]- 9896 22 Nov, 2013 [facility] [address] [id number] [place] [address] 2546 19 Nov, 2013 [facility] [address] [id number] [place] [address] 2545 19 Nov, 2013 [facility] [address] [id number] [place] [address]- 5064 13 Nov, 2013 [facility] [address] [id number] [place] [address]- 8836 13 Nov, 2013 [facility] [address] [id number] [place] [address]- 4388 10 Nov, 2013 [facility] [address] [id number] [place] [address]- 5386 10 Nov, 2013 [facility] [address] [id number] [place] [address]- 3872 08 Nov, 2013 [facility] [address] [id number] [place] [address]- 6737 05 Nov, 2013 [facility] [address] [id number] [place] [address]- 2541 05 Nov, 2013 [facility] [address] [id number] [place] [address]- 2279 Nov, 2013 [facility] [address] [id number] [place] [address]- 2548 Nov, 2013 [facility] [address] [id number] [place] [address]- 4593 Oct, [facility] [address] [id number] [place] [address]- 6194 Oct, [facility] [address] [id number] [place] [address]- 8372 Oct, [facility] [address] [id number] [place] [address]- 5693 Oct, [facility] [address] [id number] [place] [address]- 5966 Oct, [facility] [address] [id number] [place] [address]- 8038 Sep, [facility] [address] [id number] [place] [address]- 0915 Sep, [facility] [address] [id number] [place] [address]- 3964 Sep, [facility] [address] [id number] [place] [address]- 4887 Sep, [facility] [address] [id number] [place] [address]- 3778 Aug, [facility] [address] [id number] [place] [address]- 7249 Aug, [facility] [address] [id number] [place] [address]- 7709 Aug, [facility] [address] [id number] [place] [address]- 9651 Aug, [facility] [address] [id number] [place] [address]- 7892 Aug, [facility] [address] [id number] [place] [address]- 2713 Aug, [facility] [address] [id number] [place] [address]- 6352 Aug, [facility] [address] [id number] [place] [address]- 5481 Aug, [facility] [address] [id number] [place] [address]- 0547 Aug, [facility] [address] [id number] [place] [address]- 1888 Aug, [facility] [address] [id number] [place] [address]- 5740 Aug, [facility] [address] [id number] [place] [address]- 3982 Aug, [facility] [address] [id number] [place] [address]- 6842 Aug, [facility] [address] [id number] [place] [address]- 7988 Aug, [facility] [address] [id number] [place] [address]- 7983 Aug, [facility] [address] [id number] [place] [address]- 8382 Aug, [facility] [address] [id number] [place] [address]- 4615 Aug, [facility] [address] [id number] [place] [address]- 4343 Aug, [facility] [address] [id number] [place] [address]- 1476 Aug, [facility] [address] [id number] [place] [address]- 2068 Aug, [facility] [address] [id number] [place] [address]- 9125 Aug, [facility] [address] [id number] [place] [address]- 8970 Aug, [facility] [address] [id number] [place] [address]- 5377 Aug, [facility] [address] [id number] [place] [address]- 1161 Aug, [facility] [address] [id number] [place] [address]- 2560 July, [facility] [address] [id number] [place] [address]- 4953 July, [facility] [address] [id number] [place] [address]- 4351 July, [facility] [address] [id number] [place] [address]- 7431 July, [facility] [address] [id number] [place] [address]- 8828 July, [facility] [address] [id number] [place] [address]- 7771 July, [facility] [address] [id number] [place] [address]- 5680 Jun, [facility] [address] [id number] [place] [address]- 5208 Jun, [facility] [address] [id number] [place] [address]- 2461 Jun, [facility] [address] [id number] [place] [address]- 0584 Jun, [facility] [address] [id number] [place] [address]- 2841 Jun, [facility] [address] [id number] [place] [address]- 3410 Jun, [facility] [address] [id number] [place] [address]- 3279 Jun, [facility] [address] [id number] [place] [address]- 6061 Jun, [facility] [address] [id number] [place] [address]- 1040 Jun, [facility] [address] [id number] [place] [address]- 9242 Jun, [facility] [address] [id number] [place] [address]- 3941 Jun, [facility] [address] [id number] [place] 4866 Jun, [facility] [address] [id number] [place] [address]- 7846 Jun, [facility] [address] [id number] [place] [address]- 1216 Jun, [facility] [address] [id number] [place] [address]- 6425 Jun, [facility] [address] [id number] [place] [address]- 3206 May, [facility] [address] [id number] [place] [address]- 7161 May, [facility] [address] [id number] [place] [address]- 4784 May, [facility] [address] [id number] [place] [address]- 0304 May, [facility] [address] [id number] [place] [address]- 5176 May, [facility] [address] [id number] [place] [address]- 2711 May, [facility] [address] [id number] [place] [address]- 7904 May, [facility] [address] [id number] [place] [address]- 9354 May, [facility] [address] [id number] [place] [address]- 7088 May, [facility] [address] [id number] [place] [address]- 7178 May, [facility] [address] [id number] [place] [address]- 6772 May, [facility] [address] [id number] [place] [address]- 0395 May, [facility] [address] [id number] [place] [address]- 2904 May, [facility] [address] [id number] [place] [address]- 1721 May, [facility] [address] [id number] [place] [address]- 1471 May, [facility] [address] [id number] [place] [address]- 4308 May, [facility] [address] [id number] [place] [address]- 6876 May, [facility] [address] [id number] [place] [address]- 1593 Apr, [facility] [address] [id number] [place] [address]- 5518 Apr, [facility] [address] [id number] [place] [address]- 7802 Apr, [facility] [address] [id number] [place] [address]- 5610 Apr, [facility] [address] [id number] [place] [address]- 5695 Apr, [facility] [address] [id number] [place] [address]- 6844 Apr, [facility] [address] [id number] [place] [address]- 6506 Apr, [facility] [address] [id number] [place] [address]- 5950 Apr, [facility] [address] [id number] [place] [address]- 0127 Apr, [facility] [address] [id number] [place] [address]- 3161 Apr, [facility] [address] [id number] [place] [address]- 0744 Apr, [facility] [address] [id number] [place] [address]- 8457 Apr, [facility] [address] [id number] [place] [address]- 4561 Apr, [facility] [address] [id number] [place] [address]- 1546 Apr, [facility] [address] [id number] [place] [address]- 6722 Apr, [facility] [address] [id number] [place] [address]- 5263 Apr, [facility] [address] [id number] [place] [address]- 4543 Mar, [facility] [address] [id number] [place] [address]- 4687 30 Mar, 2013 [facility] [address] [id number] [place] [address]- 1753 30 Mar, 2013 [facility] [address] [id number] [place] [address]- 2360 30 Mar, 2013 [facility] [address] [id number] [place] [address]- 7792 18 Mar, 2013 [facility] [address] [id number] [place] [address]- 2133 18 Mar, 2013 [facility] [place] [facility] [address] [id number] [place] [address]- 7970 18 Mar, 2013 [facility] [address] [id number] [place] [address]- 7366 18 Mar, 2013 [facility] [address] [id number] [place] [address]- 4311 Mar, [facility] [address] [id number] [place] [address]- 8760 Mar, [facility] [place] [facility] [address] [id number] [place] [address]- 7460 Mar, [facility] [place] [facility] [address] [id number] [place] [address]- 9348 Mar, [facility] [place] [facility] [address] [id number] [place] [address]- 4489 Mar, [facility] [address] [id number] [place] [address]- 2652 Mar, [facility] [place] [facility] [address] [id number] [place] [address]- 1163 Mar, [facility] [place] [facility] [address] [id number] [place] [address]- 7376 Mar, [facility] [place] [facility] [address] [id number], [place] [address]- 8249 Mar, [facility] [place] [facility] [address] [id number] [place] [address]- 6433 Mar, [facility] [place] [facility] [address] [id number], [place] [address]- 9900 Jan, [facility] [place] [facility] [address] [id number], [place] [address]- 6325 Jan, [facility] [place] [facility] [address] [id number], [place] [address]- 7279 Jan, [facility] [place] [facility] [address] [id number], [place] [address]- 4925 Jan, [facility] [place] [facility] [address] [id number], [place] [address]- 3598 Nov, [facility] [place] [facility] [address] [id number], [place] [address]- 7234 Nov, [facility] [place] [facility] [address] [id number] [place] [address]- 9501 Nov, [facility] [address] [id number] [place] [address]- 4580 Nov, [facility] [place] [facility] [address] [id number] [place] [address]- 0017 Oct, [facility] [place] [facility] [address] [id number] [place] [address]- 3319 Oct, [facility] [place] [facility] [address] [id number] [place] [address]- 6755 Oct, [facility] [place] [facility] [address] [id number] [place] [address]- 6123 Oct, [facility] [place] [facility] [address] [id number] [place] [address]- 8728 Sep, [facility] [place] [facility] [address] [id number] [place] [address]- 0575 Sep, [facility] [place] [facility] [address] [id number] [place] [address]- 1089 Sep, [facility] [place] [facility] [address] [id number] [place] [address]- 7710 Sep, [facility] [place] [facility] [address] [id number] [place] [address]- 2998 Sep, [facility] [place] [facility] [address] [id number] [place] [address]- 9778 Sep, [facility] [place] [facility] [address] [id number] [place] [address]- 2599 Sep, [facility] [place] [facility] [address] [id number] [place] [address]- 9052 Sep, [facility] [place] [facility] [address] [id number] [place] [address]- 3239 Sep, [facility] [place] [facility] [address] [id number] [place] [address]- 4834 Aug, [facility] [place] [facility] [address] [id number] [place] [address]- 6274 Aug, [facility] [address] [id number] [place] [address]- 5781 Aug, [facility] [address] [id number] [place] [address]- 1160 Aug, [facility] [address] [id number] [place] [address]- 5208 July, [facility] [address] [id number] [place] [address]- 9856 July, [facility] [address] [id number] [place] [address]- 9529 July, [facility] [address] [id number] [place] [address]- 2157 July, [facility] [address] [id number] [place] [address]- 9749 July, [facility] [address] [id number] [place] [address]- 1088 July, [facility] [address] [id number] [place] [address]- 9734 July, [facility] [address] [id number] [place] [address] Jun, [facility] [address] [id number] [place] [address] May, [facility] [place] [facility] [address] [id number] [place] [address] May, [facility] [place] [facility] [address] [id number] [place] [address] May, [facility] [place] [facility] [address] [id number] [place] [address] May, [facility] [place] [facility] [address] [id number] [place] [address] May, [facility] [address] [facility] [id number] [place] [address] May, [facility] [address] [facility] [id number] [place] [address] May, [facility] [address] [facility] [id number] [place] [address] May, IMMUNIZATIONS No Known Immunizations SOCIAL HISTORY Never Assessed REASON FOR VISIT Refill request PLAN OF CARE VITAL SIGNS MEDICATIONS Unknown [...]
--- OUTSIDE RECORDS SUMMARY | 2017-12-18 20:05 | XMS REPORT ---
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 Active 8247499 Problem Chronic congestive heart failure, unspecified heart failure type I50.9 Active 85752248 Problem Chronic congestive heart failure, unspecified congestive heart failure type I50.9 Active 28794252 Problem Intra-dialytic hypotension I95.3 Active 262055114 Problem Angina pectoris I20.9 Active 649614280 Problem Seasonal allergic rhinitis due to other allergic trigger J30.89 Active 602521141 ALLERGIES No Information ENCOUNTERS Encounter Location Date Diagnosis [place] [address] [address] Sep, [facility] [id number] [place] [address] 15215- 1172 Aug, [facility] [address] [place] [address] 84761- 0706 Aug, 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 [facility] [address] [place] [address] 43113- 0263 Aug, [place] [address] [address] 5323 11 Aug, 2017 Diabetes type 2, controlled E11.9 and Acute pain of right knee M25.561 [facility] [address], [place] [address] 2303 Aug, [facility] [address] [place] [address] 50283- 0327 July, [facility] [address], [place] [address] 0881 Jun, [facility] [id number] [place] [address] 20702- 3897 Jun, [facility] [address] [place] [address] 25863- 2834 Jun, Diabetes type 2, controlled E11.9 [facility] [id number] [place] [address] 41139- 1063 Jun, [facility] [address] [place] [address] 95702- 1687 May, [facility] [address] [place] [address] 01025- 5112 May, [facility] [address] [address]- 6273 May, [facility] [address], [place] [address]- 9499 May, Chronic congestive heart failure, unspecified congestive heart failure type I50.9 [facility] [address], [place] [address] 0976 May, Diabetes type 2, controlled E11.9 ; BMI 50.0-59.9, adult Z68.43 ; Chronic congestive heart failure, unspecified heart failure type I50.9 ; Angina pectoris I20.9 ; Seasonal allergic rhinitis due to other allergic trigger J30.89 and Renal failure N19 [facility] [id number] [id number] May, [facility] [address], [place] [address]- 4586 May, [facility] [address], [place] [address]- 9161 May, [facility] [id number] [place] [address] 44502- 2960 May, [facility] [address] [place] [address] 01526- 5072 May, [facility] [id number] [place] [address] 31060- 6524 Apr, BMI 50.0-59.9, adult Z68.43 [facility] [id number] [place] [address] 45572- 7919 Apr, BMI 50.0-59.9, adult Z68.43 ; Post-procedural fever R50.82 and Bronchitis J40 [facility] [id number] [place] [address] 83859- 7410 Apr, Chronic congestive heart failure, unspecified congestive heart failure type I50.9 [facility] [id number] [place] [address] 42652- 7507 Jan, [facility] [id number] [place] [address] 86470- 4108 Jan, Diabetes type 2, controlled E11.9 [facility] [address], [place] [address]- 6859 Jan, Neuropathy G62.9 [facility] [address] [place] [address] 48295- 4528 Jan, [facility] [address], [place] [address]- 1883 Jan, [facility] [address] [place] [address] 41152- 6820 Jan, [facility] [address], [place] [address]- 0146 Jan, [facility] [id number], [place] [address]- 5567 Jan, [facility] [address] [id number] [address]- 4040 Dec, [facility] [address] [facility] [id number], [place] [address]- 4615 Dec, [facility] [address] [facility] [id number], [place] [address]- 4000 Dec, Diabetes type 2, controlled E11.9 [facility] [address] [id number] [place] [address]- 9292 Dec, [facility] [address] [facility] [id number] [address]- 2659 Dec, [facility] [address] [address] [id number], [place] [address]- 0278 Dec, Chronic congestive heart failure, unspecified congestive heart failure type I50.9 [facility] [address] [facility] [id number], [place] [address]- 5356 Dec, [facility] [address] [facility] [id number] [address]- 7167 Dec, [facility] [address] [facility] [id number], [place] [address]- 4572 Nov, Chronic congestive heart failure, unspecified congestive heart failure type I50.9 [facility] [address] [facility] [id number] [address]- 8275 Nov, Chronic congestive heart failure, unspecified congestive heart failure type I50.9 [facility] [address] [facility] [id number] [place] [address]- 2606 Nov, [facility] [address] [facility] [id number], [place] [address]- 5093 Oct, [facility] [address] [facility] [id number], [place] [address]- 5907 Oct, [facility] [address], [place] [address]- 2767 14 Oct, 2016 Chronic congestive heart failure, unspecified congestive heart failure type I50.9 [facility] [address], [place] [address]- 1376 Oct, [facility] [address], [place] [address]- 5215 Oct, Pneumonia of both lungs due to infectious organism, unspecified part of lung J18.9 [facility] [address], [place] [address]- 2404 10 Oct, 2016 [facility] [id number] [place] [address] 36784- 9745 Oct, Diabetes type 2, controlled E11.9 [facility] [address], [place] [address]- 4135 Oct, Diabetes type 2, controlled E11.9 [facility] [address], [place] [address]- 2917 Sep, [facility] [id number] [place] [address] 08641- 1419 Sep, Neuropathy G62.9 [facility] [address], [place] [address]- 4523 Aug, Intra-dialytic hypotension I95.3 [facility] [address], [place] [address]- 4060 July, [facility] [address], [place] [address]- 2542 July, [facility] [address] [place] [address] 20362- 0144 July, [facility] [address], [place] [address]- 1874 July, Amput below knee, unilat S88.119A [facility] [id number] [place] [address] 94828- 8292 May, [facility] [address] [facility] [id number] [place] [address]- 5160 May, Neuropathy G62.9 [facility] [address] [facility] [id number] [place] [address]- 2393 May, [facility] [address] [facility] [id number] [place] [address]- 6705 May, [facility] [address] [facility] [id number] [place] [address]- 8141 May, [facility] [address] [facility] [id number] [place] [address]- 2536 May, [facility] [address] [place] [id number] [address]- 9530 May, Neuropathy G62.9 [facility] [address] [address]- 1432 Apr, [facility] [address] [facility] [id number] [place] [address]- 6257 Apr, [facility] [address] [address]- 8882 Apr, Diabetes type 2, controlled E11.9 and Renal failure N19 [facility] [address] [place] [id number] [place] [address] -1683 Apr, [facility] [address] [id number], [place] [address]- 7249 Apr, [facility] [address] [facility] [id number] [place] [address]- 2768 Mar, [facility] [address] [facility] [id number] [place] 5425 Mar, [facility] [address] [place] [id number] [address]- 6853 Mar, [facility] [address], [place] [address]- 6387 Mar, [facility] [id number] [place] [address] 50133- 6613 Mar, [facility] [id number] [place] [address] 03983- 3522 Jan, Localized edema R60.0 [facility] [id number] [place] [address] 64647- 9214 Jan, [facility] [id number] [place] [address] 71396- 9310 Jan, [facility] [id number] [place] [address] 73277- 5366 Jan, [facility] [id number] [place] [address] 77218- 5947 Jan, [facility] [id number] [place] [address] 32779- 0845 Jan, [facility] [id number] [place] [address] 01161- 3787 Jan, [facility] [id number] [place] [address] 15722- 2168 Dec, Diabetes type 2, controlled E11.9 and Chronic nonintractable headache, unspecified headache type R51 [facility] [address] [place] [address] 93892- 0888 Dec, [facility] [address], [place] [address]- 8512 Dec, [facility] [id number] [place] [address] 32212- 9368 Nov, [facility] [id number] [place] [address] 03110- 1859 Nov, [facility] [address], [place] [address]- 4097 Oct, [facility] [address], [place] [address]- 6359 Oct, Migraine without status migrainosus, not intractable, unspecified migraine type G43.909 [facility] [id number] [place] [address] 63780- 9476 Oct, [facility] [id number] [place] [address] 95587- 0636 Sep, Amput below knee, unilat S88.119A and Neuropathy G62.9 [facility] [id number] [place] [address] 66441- 3286 Sep, [facility] [id number] [place] [address] 77770- 4866 Sep, [facility] [id number] [place] [address] 61014- 9888 Sep, [facility] [id number] [place] [address] 17365- 2324 Aug, [facility] [id number] [place] [address] 50978- 5574 Aug, [facility] [id number] [place] [address] 11188- 8064 Aug, Diabetes type 2, controlled E11.9 [facility] [address] [place] [address] 11871- 0336 Aug, [facility] [id number] [place] [address] 41654 2540 Jun, Diabetes type 2, controlled E11.9 and Neuropathy G62.9 [facility] [id number] [place] [address] 62478- 8410 Jun, [facility] [id number] [place] [address] 51972 2546 Jun, [facility] [id number] [place] [address] 13193- 2996 Jun, [facility] [address] [facility] [id number] [address]- 7928 Jun, [facility] [id number] [place] [address] 67574- 4540 May, [facility] [id number] [place] [address] 51663- 2185 May, Diabetes type 2, controlled E11.9 [facility] [id number] [place] [address] 84422- 2688 May, [facility] [id number] [place] [address] 34443- 6607 May, [facility] [id number] [place] [address] 18165- 1255 26 May, 2015 [facility] [id number] [place] [address] 86812- 7297 25 May, 2015 [facility] [address] [place] [address] 54426- 8185 17 May, 2015 [facility] [address] [place] [address] 44414- 8138 16 May, 2015 [facility] [address], [place] [address]- 7356 16 May, 2015 [facility] [address] [place] [address] 33255- 9270 15 May, 2015 COPD (chronic obstructive pulmonary disease) J44.9 [facility] [address], [place] [address]- 1690 15 May, 2015 [facility] [address], [place] [address]- 5828 12 May, 2015 [facility] [address], [place] [address]- 1812 May, [facility] [id number] [place] [address] 15838- 8706 May, [facility] [address] [place] [id number] [address]- 6749 May, [facility] [address], [place] [address]- 7346 May, Renal failure N19 and Pneumonia, organism unspecified, unspecified laterality, unspecified part of lung J18.9 [facility] [address] [address]- 5470 Apr, [facility] [address] [address]- 7964 Apr, [facility] [address], [place] [address]- 0476 Apr, [facility] [address] [address]- 1808 Apr, Diabetes mellitus 250.00 [facility] [address], [place] [address]- 3010 Apr, [facility] [address], [place] [address]- 6792 Apr, [facility] [address], [place] [address]- 6683 Apr, [facility] [address], [place] [address]- 7048 Apr, [facility] [address], [place] [address]- 7663 Mar, [facility] [address] [place] [id number] [address]- 1800 Mar, [facility] [address] [address]- 3091 Mar, [facility] [address] [address] [id number] [address]- 3746 Mar, Renal failure N19 [facility] [place] [facility] [address] [id number] [place] [address]- 2341 14 Mar, 2015 [facility] [place] [facility] [address] [id number] [place] [address]- 9566 Mar, [facility] [place] [facility] [address] [id number] [place] [address]- 2693 Mar, [facility] [place] [facility] [address] [id number] [place] [address]- 3994 24 Jan, 2015 [facility] [place] [facility] [address] [id number] [place] [address]- 3390 Jan, [facility] [place] [facility] [address] [id number] [place] [address]- 7256 Jan, [facility] [place] [facility] [address] [id number] [place] [address]- 1829 Jan, [facility] [place] [facility] [address] [id number] [place] [address]- 2372 Dec, [facility] [place] [facility] [address] [id number] [place] [address]- 8818 Dec, [facility] [place] [facility] [address] [id number] [place] [address]- 9313 Dec, [facility] [place] [facility] [address] [id number] [place] [address]- 0143 Nov, [facility] [place] [facility] [address] [id number] [place] [address]- 8360 Nov, [facility] [place] [facility] [address] [id number] [place] [address]- 8808 Nov, [facility] [place] [facility] [address] [id number] [place] [address]- 4570 Oct, [facility] [place] [facility] [address] [id number] [place] [address]- 4715 Oct, [facility] [place] [facility] [address] [id number] [place] [address]- 5007 Oct, Renal failure 586 and Obesity 278.00 [facility] [address], [place] [address]- 1044 Oct, [facility] [address], [place] [address]- 3138 Oct, [facility] [address] [id number], [place] [address]- 5014 Oct, [facility] [id number] [place] [address] 82261- 1220 Sep, [facility] [address] [place] [address] 26129- 1625 Sep, [facility] [address] [id number], [place] [address]- 7275 Sep, Diabetes mellitus 250.00 and Congestive heart failure, unspecified 428.0 [facility] [address] [id number], [place] [address]- 5964 Aug, [facility] [address], [place] [address]- 1242 Aug, [facility] [address], [place] [address]- 3967 Aug, [facility] [address], [place] [address]- 4159 July, [facility] [address], [place] [address]- 2156 July, [facility] [address] [id number], [place] [address]- 3966 July, Heart murmur, systolic 785.2 [facility] [address], [place] [address]- 3096 July, [facility] [address] [id number] [address]- 2895 July, [facility] [address] [id number] [address]- 4335 14 Jun, 2014 [facility] [place] [facility] [address] [id number] [place] [address]- 2133 13 Jun, 2014 [facility] [place] [facility] [address] [id number] [place] [address]- 6275 23 May, 2014 [facility] [place] [facility] [address] [id number] [place] [address]- 8242 23 May, 2014 [facility] [place] [facility] [address] [id number] [place] [address]- 8833 18 May, 2014 [facility] [place] [facility] [address] [id number] [place] [address]- 5005 18 May, 2014 [facility] [place] [facility] [address] [facility] [id number] [place] [address]- 3420 16 May, 2014 [facility] [place] [facility] [address] [facility] [id number] [place] [address]- 9813 16 May, 2014 [facility] [place] [facility] [address] [facility] [id number] [place] [address]- 5982 10 May, 2014 [facility] [place] [facility] [address] [id number] [place] [address]- 1304 10 May, 2014 [facility] [place] [facility] [address] [facility] [id number] [place] [address]- 9984 May, [facility] [place] [facility] [address] [id number] [place] [address]- 4795 May, [facility] [place] [facility] [address] [facility] [id number] [place] [address] May, [facility] [place] [facility] [address] [id number] [place] [address] May, [facility] [place] [facility] [address] [facility] [id number] [place] [address] May, [facility] [place] [facility] [address] [id number] [place] [address] May, [facility] [place] [facility] [address] [id number] [place] [address] May, 2014 [facility] [place] [facility] [address] [id number] [place] [address] 18 May, 2014 [facility] [place] [facility] [address] [facility] [id number] [place] [address] 18 May, 2014 [facility] [place] [facility] [address] [id number] [place] [address] May, 2014 [facility] [place] [facility] [address] [id number] [place] [address] May, 2014 [facility] [place] [facility] [address] [id number] [place] [address] May, 2014 [facility] [place] [facility] [address] [facility] [id number] [place] [address] 16 May, 2014 [facility] [place] [facility] [address] [id number] [place] [address] 16 May, 2014 [facility] [place] [facility] [address] [id number] [place] [address] May, 2014 [facility] [place] [facility] [address] [facility] [id number] [place] [address] May, 2014 [facility] [place] [facility] [address] [facility] [id number] [place] [address] May, 2014 [facility] [place] [facility] [address] [facility] [id number] [address] May, 2014 [facility] [place] [facility] [address] [id number] [place] [address] Apr, [facility] [place] [facility] [address] [id number] [place] [address] Apr, [facility] [place] [facility] [address] [facility] [id number] [place] [address] Apr, [facility] [place] [facility] [address] [id number] [place] [address] Apr, [facility] [place] [facility] [address] [id number] [place] [address] Apr, [facility] [place] [facility] [address] [id number] [place] [address] Apr, [facility] [place] [facility] [address] [id number] [place] [address] Apr, [facility] [place] [facility] [address] [id number] [place] [address] Apr, [facility] [place] [facility] [address] [id number] [place] [address] Mar, [facility] [place] [facility] [address] [id number] [place] [address] Mar, [facility] [place] [facility] [address] [id number] [place] [address] Mar, [facility] [place] [facility] [address] [id number] [place] [address] Mar, [facility] [place] [facility] [address] [id number] [place] [address] Mar, [facility] [place] [facility] [address] [id number] [place] [address] Mar, [facility] [place] [facility] [address] [id number] [place] [address] Mar, [facility] [facility] [address] [id number] [place] [address] Mar, [facility] [place] [facility] [address] [id number] [place] [address] Mar, [facility] [place] [facility] [address] [id number] [place] [address] Mar, [facility] [place] [facility] [address] [id number] [place] [address] 8647 Mar, [facility] [place] [facility] [address] [id number] [place] [address]- 7355 Mar, [facility] [place] [facility] [address] [id number] [place] [address]- 7336 Mar, [facility] [place] [facility] [address] [facility] [id number] [place] [address]- 5912 Mar, [facility] [place] [facility] [address] [id number] [place] [address]- 7393 Mar, [facility] [place] [facility] [address] [id number] [place] [address]- 0212 Mar, [facility] [place] [facility] [address] [id number] [place] [address]- 0384 Mar, [facility] [place] [facility] [address] [id number] [place] [address]- 2994 Mar, [facility] [place] [facility] [address] [id number] [place] [address]- 2138 Mar, [facility] [place] [facility] [address] [id number] [place] [address] 0801 Mar, [facility] [place] [facility] [address] [id number] [place] [address]- 7417 Mar, [facility] [place] [facility] [address] [id number], [place] [address] 87[address] Mar, [facility] [place] [facility] [address] [id number], [place] [address] 98[address] Jan, [facility] [place] [facility] [address] [id number] [place] [address]- 8795 Jan, [facility] [place] [facility] [address] [id number] [place] [address]- 6736 Jan, [facility] [place] [facility] [address] [id number] [place] [address]- 8273 Jan, [facility] [place] [facility] [address] [id number] [place] [address]- 6563 Jan, [facility] [place] [facility] [address] [id number] [place] [address]- 6351 Jan, [facility] [place] [facility] [address] [id number] [place] [address]- 3856 Jan, [facility] [place] [facility] [address] [id number] [place] [address]- 7249 Jan, [facility] [place] [facility] [address] [id number] [place] [address]- 0451 Jan, [facility] [place] [facility] [address] [id number] [place] [address]- 5845 Jan, [facility] [place] [facility] [address] [id number] [place] [address]- 7006 Jan, [facility] [place] [facility] [address] [id number] [place] [address]- 4555 Jan, [facility] [place] [facility] [address] [id number] [place] [address]- 8300 Jan, [facility] [place] [facility] [address] [id number] [place] [address]- 0068 Jan, [facility] [place] [facility] [address] [id number] [place] [address]- 1020 Jan, [facility] [place] [facility] [address] [id number] [place] [address]- 9040 Jan, [facility] [place] [facility] [address] [id number] [place] [address]- 8227 Jan, [facility] [place] [facility] [address] [id number] [place] [address]- 8193 Jan, [facility] [place] [address] [id number] [place] [address]- 1280 Jan, [facility] [place] [facility] [address] [id number] [place] [address]- 7612 Jan, [facility] [place] [facility] [address] [id number] [place] [address]- 6618 Dec, 2013 [facility] [address] [id number] [place] [address]- 8608 Dec, [facility] [place] [facility] [address] [id number] [place] [address]- 7883 Dec, [facility] [place] [facility] [address] [id number] [place] [address]- 7773 Dec, [facility] [place] [address] [id number] [place] [address]- 3732 Dec, [facility] [place] [facility] [address] [id number] [place] [address]- 2930 Dec, [facility] [place] [facility] [address] [id number] [place] [address]- 5081 Dec, [facility] [address] [id number] [place] [address]- 8154 Dec, [facility] [address] [id number] [place] [address]- 9185 Dec, [facility] [place] [facility] [address] [id number] [place] [address]- 5388 Dec, [facility] [address] [id number] [place] [address]- 1169 Dec, [facility] [address] [id number] [place] [address]- 4404 Dec, [facility] [address] [id number] [place] [address]- 3814 Dec, [facility] [address] [id number] [place] [address]- 7557 Dec, [facility] [address] [id number] [place] [address] Dec, [facility] [address] [id number] [place] [address]- 2467 22 Nov, 2013 [facility] [address] [id number] [place] [address] 2546 22 Nov, 2013 [facility] [address] [id number] [place] [address] 2546 19 Nov, 2013 [facility] [address] [id number] [place] [address] 2546 19 Nov, 2013 [facility] [address] [id number] [place] [address] 254 13 Nov, 2013 [facility] [address] [id number] [place] [address]- 3614 13 Nov, 2013 [facility] [address] [id number] [place] [address]- 5907 10 Nov, 2013 [facility] [address] [id number] [place] [address]- 7374 10 Nov, 2013 [facility] [facility] [address] [id number] [place] [address]- 5955 08 Nov, 2013 [facility] [address] [id number] [place] [address]- 1511 05 Nov, 2013 [facility] [address] [id number] [place] [address]- 0787 05 Nov, 2013 [facility] [address] [id number] [place] [address] 2540 Nov, 2013 [facility] [address] [id number] [place] [address]- 2831 Nov, 2013 [facility] [address] [id number] [place] [address]- 9360 Oct, [facility] [address] [id number] [place] [address]- 3635 Oct, [facility] [address] [id number] [place] [address]- 8230 Oct, [facility] [address] [id number] [place] [address]- 0198 Oct, [facility] [address] [id number] [place] [address]- 9345 Oct, [facility] [address] [id number] [place] [address]- 4862 Sep, [facility] [address] [id number] [place] [address]- 5478 Sep, [facility] [address] [id number] [place] [address]- 0441 Sep, [facility] [address] [id number] [place] [address]- 2277 Sep, [facility] [address] [id number] [place] [address]- 1885 Aug, [facility] [address] [id number] [place] [address]- 1003 Aug, [facility] [address] [id number] [place] [address]- 3423 Aug, [facility] [address] [id number] [place] [address]- 5582 Aug, [facility] [address] [id number] [place] [address]- 5220 Aug, [facility] [address] [id number] [place] [address]- 9838 Aug, [facility] [address] [id number] [place] [address]- 1558 Aug, [facility] [address] [id number] [place] [address]- 0434 Aug, [facility] [address] [id number] [place] [address]- 8794 Aug, [facility] [address] [id number] [place] [address]- 5619 Aug, [facility] [address] [id number] [place] [address]- 8393 Aug, [facility] [address] [id number] [place] [address]- 9383 Aug, [facility] [address] [id number] [place] [address]- 9241 Aug, [facility] [address] [id number] [place] [address]- 8585 Aug, [facility] [address] [id number] [place] [address]- 7711 Aug, [facility] [address] [id number] [place] [address]- 6736 Aug, [facility] [address] [id number] [place] [address]- 2636 Aug, [facility] [address] [id number] [place] [address]- 3142 Aug, [facility] [address] [id number] [place] [address]- 2718 Aug, [facility] [address] [id number] [place] [address]- 8964 Aug, [facility] [address] [id number] [place] [address]- 2618 Aug, [facility] [address] [id number] [place] [address]- 2289 Aug, [facility] [address] [id number] [place] [address]- 0308 Aug, [facility] [address] [id number] [place] [address]- 7536 Aug, [facility] [address] [id number] [place] [address]- 0618 July, [facility] [address] [id number] [place] [address]- 6048 July, [facility] [address] [id number] [place] [address]- 4200 July, [facility] [address] [id number] [place] [address]- 8776 July, [facility] [address] [id number] [place] [address]- 3663 July, [facility] [address] [id number] [place] [address]- 4169 July, [facility] [address] [id number] [place] [address]- 5969 Jun, [facility] [address] [id number] [place] [address]- 6378 Jun, [facility] [address] [id number] [place] [address]- 4758 Jun, [facility] [address] [id number] [place] [address]- 2298 Jun, [facility] [address] [id number] [place] [address]- 0871 Jun, [facility] [address] [id number] [place] [address]- 9333 Jun, [facility] [address] [id number] [place] [address]- 8472 Jun, [facility] [address] [id number] [place] [address]- 2847 Jun, [facility] [address] [id number] [place] [address]- 1713 Jun, [facility] [address] [id number] [place] [address]- 3997 Jun, [facility] [address] [id number] [place] [address]- 0708 Jun, [facility] [address] [id number] [place] [address]- 4578 Jun, [facility] [address] [id number] [place]146 Jun, [facility] [address] [id number] [place] [address]606 Jun, [facility] [address] [id number] [place] [address]- 0349 Jun, [facility] [address] [id number] [place] [address]- 9880 May, [facility] [address] [id number] [place] [address]- 4729 May, [facility] [address] [id number] [place] [address]- 5814 May, [facility] [address] [id number] [place] [address]- 3847 May, [facility] [address] [id number] [place] [address]- 8010 May, [facility] [address] [id number] [place] [address]- 5817 May, [facility] [address] [id number] [place] [address]- 1050 May, [facility] [address] [id number] [place] [address]- 9869 May, [facility] [address] [id number] [place] [address]- 2656 May, [facility] [address] [id number] [place] [address]- 2986 May, [facility] [address] [id number] [place] [address]- 8346 May, [facility] [address] [id number] [place] [address]- 6809 May, [facility] [address] [id number] [place] [address]- 6366 May, [facility] [address] [id number] [place] 4228 May, [facility] [address] [id number] [place] [address]- 4186 May, [facility] [address] [id number] [place] [address]- 4548 May, [facility] [address] [id number] [place] [address]- 1937 May, [facility] [address] [id number] [place] [address]- 8788 Apr, [facility] [address] [id number] [place] [address]- 6540 Apr, [facility] [place] [address] [id number] [place] [address]- 8651 Apr, [facility] [address] [id number] [place] [address]- 7874 Apr, [facility] [address] [id number] [place] [address]- 0332 Apr, [facility] [address] [id number] [place] [address]- 7583 Apr, [facility] [address] [id number] [place] [address]- 1408 Apr, [facility] [address] [id number] [place] [address]- 5397 Apr, [facility] [address] [id number] [place] [address]- 5908 Apr, [facility] [place] [address] [id number] [place] [address]- 4852 Apr, [facility] [place] [address] [id number] [place] [address]- 4153 08 Apr, 2013 [facility] [address] [id number] [place] [address]- 1910 Apr, [facility] [address] [id number] [place] [address]- 7679 Apr, [facility] [address] [id number] [place] [address]- 9507 Apr, [facility] [place] [facility] [address] [id number] [place] [address]- 3587 Apr, [facility] [address] [id number] [place] [address]- 5474 Apr, [facility] [address] [id number] [place] [address]- 0724 Mar, [facility] [address] [id number] [place] [address]- 8672 30 Mar, 2013 [facility] [address] [id number] [place] [address]- 6684 30 Mar, 2013 [facility] [address] [id number] [place] [address]- 4675 30 Mar, 2013 [facility] [address] [id number] [place] [address]- 1076 18 Mar, 2013 [facility] [facility] [address] [id number] [place] [address]- 8382 18 Mar, 2013 [facility] [place] [facility] [address] [id number] [place] [address]- 1178 18 Mar, 2013 [facility] [place] [facility] [address] [id number] [place] [address]- 9270 18 Mar, 2013 [facility] [address] [id number] [place] [address]- 4296 17 Mar, 2013 [facility] [facility] [address] [id number] [place] [address]- 9105 Mar, [facility] [address] [id number] [place] [address]- 4143 Mar, [facility] [place] [facility] [address] [id number] [place] [address]- 9378 Mar, [facility] [place] [facility] [address] [id number] [place] [address]- 9251 Mar, [facility] [place] [facility] [address] [id number] [place] [address]- 2515 Mar, [facility] [address] [id number] [place] [address]- 9941 Mar, [facility] [place] [facility] [address] [id number] [place] [address]- 1850 Mar, [facility] [place] [facility] [address] [id number] [place] [address]- 9146 Mar, [facility] [place] [facility] [address] [id number], [place] [address]- 3845 Mar, [facility] [place] [facility] [address] [id number] [place] [address]- 5686 Jan, [facility] [place] [facility] [address] [id number], [place] [address]- 2091 Jan, [facility] [place] [facility] [address] [id number], [place] [address]- 2997 Jan, [facility] [place] [facility] [address] [id number], [place] [address]- 3169 Jan, [facility] [place] [facility] [address] [id number] [place] [address]- 0336 Nov, [facility] [place] [facility] [address] [id number], [place] [address]- 1636 10 Nov, 2012 [facility] [place] [facility] [address] [id number], [place] [address]- 5148 Nov, [facility] [place] [facility] [address] [id number] [place] [address]- 0295 Nov, [facility] [address] [id number] [place] [address]- 1370 Oct, [facility] [place] [facility] [address] [id number] [place] [address]- 7921 Oct, [facility] [place] [facility] [address] [id number] [place] [address]- 9740 Oct, [facility] [place] [facility] [address] [id number] [place] [address]- 1231 Oct, [facility] [place] [facility] [address] [id number] [place] [address]- 5692 Sep, [facility] [place] [facility] [address] [id number] [place] [address]- 6221 Sep, [facility] [place] [facility] [address] [id number] [place] [address]- 2526 Sep, [facility] [place] [facility] [address] [id number] [place] [address]- 3987 Sep, [facility] [place] [facility] [address] [id number] [place] [address]- 4764 Sep, [facility] [place] [facility] [address] [id number] [place] [address]- 9519 Sep, [facility] [place] [facility] [address] [id number] [place] [address]- 9249 Sep, [facility] [place] [facility] [address] [id number] [place] [address]- 2830 Sep, [facility] [place] [facility] [address] [id number] [place] [address]- 6010 Sep, [facility] [place] [facility] [address] [id number] [place] [address]- 6715 Aug, [facility] [place] [facility] [address] [id number] [place] [address]- 1598 Aug, [facility] [place] [facility] [address] [id number] [place] [address]- 9414 Aug, [facility] [address] [id number] [place] [address]- 9068 Aug, [facility] [address] [id number] [place] [address]- 9367 July, [facility] [address] [id number] [place] [address]- 0122 July, [facility] [address] [id number] [place] [address]- 0136 July, [facility] [address] [id number] [place] [address] July, [facility] [address] [id number] [place] [address] July, [facility] [address] [id number] [place] [address] July, [facility] [address] [id number] [place] [address] July, [facility] [address] [id number] [place] [address] Jun, [facility] [address] [id number] [place] [address] May, [facility] [address] [id number] [place] [address] May, [facility] [address] [id number] [place] [address] May, [facility] [place] [facility] [address] [id number] [place] [address] May, [facility] [place] [facility] [address] [id number] [place] [address] May, [facility] [place] [facility] [address] [id number] [place] [address] May, [facility] [address] [facility] [id number] [place] [address] May, [facility] [address] [facility] [id number] [place] [address] May, IMMUNIZATIONS No Known Immunizations SOCIAL [...]
--- OUTSIDE RECORDS SUMMARY | 2017-12-18 20:05 | XMS REPORT ---
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
--- OUTSIDE RECORDS SUMMARY | 2017-12-18 20:05 | XMS REPORT ---
Author Author MCKENNA HEBERT Organization 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
[2017-12-18 20:06] LABS: PROTHROMBIN TIME PATIENT 13.4 SEC (12.2-14.7)
--- OUTSIDE RECORDS SUMMARY | 2017-12-18 20:06 | XMS REPORT ---
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 Active 4125810 Problem Chronic congestive heart failure, unspecified heart failure type I50.9 Active 76518597 Problem Chronic congestive heart failure, unspecified congestive heart failure type I50.9 Active 37940323 Problem Intra-dialytic hypotension I95.3 Active 929453775 Problem Angina pectoris I20.9 Active 223404667 Problem Seasonal allergic rhinitis due to other allergic trigger J30.89 Active 919507426 ALLERGIES No Information ENCOUNTERS Encounter Location Date Diagnosis [place] [id number] [address] Sep, [facility] [id number] [place] [address] 20012- 8021 Aug, [facility] [id number] [place] [address] 26676- 5992 Aug, 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 [facility] [id number] [place] [address] 75500- 0598 Aug, [place] [address] [address] 11 Aug, 2017 Diabetes type 2, controlled E11.9 and Acute pain of right knee M25.561 [facility] [address] [address] 7712 Aug, [facility] [id number] [place] [address] 46736- 0200 July, [facility] [address] [address] 2218 Jun, [facility] [id number] [place] [address] 34053- 2504 Jun, [facility] [id number] [place] [address] 23458- 7388 Jun, Diabetes type 2, controlled E11.9 [facility] [id number] [place] [address] 19526- 0044 Jun, [facility] [id number] [place] [address] 44176- 7258 May, [facility] [id number] [place] [address] 50614- 0904 May, [facility] [address] [address]- 8491 May, [facility] [address] [address]- 5992 May, Chronic congestive heart failure, unspecified congestive heart failure type I50.9 [facility] [address] [address]- 5036 May, Diabetes type 2, controlled E11.9 ; BMI 50.0-59.9, adult Z68.43 ; Chronic congestive heart failure, unspecified heart failure type I50.9 ; Angina pectoris I20.9 ; Seasonal allergic rhinitis due to other allergic trigger J30.89 and Renal failure N19 [facility] [id number] [id number] May, [facility] [address], [place] [address]- 7457 May, [facility] [address] [address]- 4927 May, [facility] [id number] [place] [address] 67405- 8682 May, [facility] [id number] [place] [address] 30570- 9829 May, [facility] [id number] [place] [address] 03412- 0182 Apr, BMI 50.0-59.9, adult Z68.43 [facility] [id number] [place] [address] 67880- 2268 Apr, BMI 50.0-59.9, adult Z68.43 ; Post-procedural fever R50.82 and Bronchitis J40 [facility] [id number] [place] [address] 75770- 2556 Apr, Chronic congestive heart failure, unspecified congestive heart failure type I50.9 [facility] [id number] [place] [address] 06988- 6340 Jan, [facility] [id number] [place] [address] 20988- 4753 Jan, Diabetes type 2, controlled E11.9 [facility] [address] [address]- 9541 Jan, Neuropathy G62.9 [facility] [id number] [place] [address] 22286- 8245 Jan, [facility] [address] [address]- 2360 Jan, [facility] [id number] [place] [address] 84554- 5695 Jan, [facility] [address] [address]- 8653 Jan, [facility] [id number] [address]- 6980 Jan, [facility] [address] [id number] [address]- 2745 Dec, [facility] [address] [facility] [id number] [address]- 8347 Dec, [facility] [address] [facility] [id number] [address]- 6233 Dec, Diabetes type 2, controlled E11.9 [facility] [address] [id number] [place] [address]- 9570 Dec, [facility] [address] [facility] [id number] [address]- 2191 Dec, [facility] [id number] [address]- 4569 Dec, Chronic congestive heart failure, unspecified congestive heart failure type I50.9 [facility] [address] [facility] [id number] [address]- 8092 Dec, [facility] [address] [facility] [id number] [address]- 3531 Dec, [facility] [address] [facility] [id number] [address]- 2203 Nov, Chronic congestive heart failure, unspecified congestive heart failure type I50.9 [facility] [address] [facility] [id number] [address]- 6948 Nov, Chronic congestive heart failure, unspecified congestive heart failure type I50.9 [facility] [address] [facility] [id number] [place] [address]- 6277 Nov, [facility] [address] [facility] [id number] [address]- 8118 Oct, [facility] [address] [facility] [id number] [address]- 4284 Oct, [facility] [address] [address]- 0628 14 Oct, 2016 Chronic congestive heart failure, unspecified congestive heart failure type I50.9 [facility] [address] [address]- 9875 Oct, [facility] [address] [address]- 0059 Oct, Pneumonia of both lungs due to infectious organism, unspecified part of lung J18.9 [facility] [address] [address]- 1400 10 Oct, 2016 [facility] [id number] [place] [address] 33300- 9579 Oct, Diabetes type 2, controlled E11.9 [facility] [address], [place] [address]- 6955 Oct, Diabetes type 2, controlled E11.9 [facility] [address], [place] [address]- 4826 Sep, [facility] [id number] [place] [address] 18373- 4931 Sep, Neuropathy G62.9 [facility] [address], [place] [address]- 5819 Aug, Intra-dialytic hypotension I95.3 [facility] [address], [place] [address]- 5786 July, [facility] [address] [address]- 2548 July, [facility] [id number] [place] [address] 10962- 5716 July, [facility] [address] [address]- 6000 July, Amput below knee, unilat S88.119A [facility] [id number] [place] [address] 66167- 0105 May, [facility] [address] [facility] [id number] [place] [address]- 2302 May, Neuropathy G62.9 [facility] [address] [facility] [id number] [place] [address]- 5609 May, [facility] [address] [facility] [id number] [place] [address]- 5920 May, [facility] [address] [facility] [id number] [place] [address]- 0283 May, [facility] [address] [facility] [id number] [place] [address]- 2595 May, [facility] [id number] [address]- 8411 May, Neuropathy G62.9 [facility] [address] [place] [address]- 9250 Apr, [facility] [address] [facility] [id number] [place] [address]- 7345 Apr, [facility] [address] [place] [address]- 9375 Apr, Diabetes type 2, controlled E11.9 and Renal failure N19 [facility] [address] [id number] [place] [address] -4377 Apr, [facility] [id number] [address]- 3301 Apr, [facility] [address] [facility] [id number] [place] [address]- 5987 Mar, [facility] [address] [facility] [id number] [place] 3746 Mar, [facility] [id number] [address]- 4994 Mar, [facility] [address], [place] [address]- 1359 Mar, [facility] [id number] [place] [address] 50325- 0326 Mar, [facility] [id number] [place] [address] 59331- 7835 Jan, Localized edema R60.0 [facility] [id number] [place] [address] 08075- 9982 Jan, [facility] [id number] [place] [address] 20737- 6859 Jan, [facility] [id number] [place] [address] 38630- 2603 Jan, [facility] [id number] [place] [address] 26565- 3858 Jan, [facility] [id number] [place] [address] 95460- 4783 Jan, [facility] [id number] [place] [address] 33826- 7531 Jan, [facility] [id number] [place] [address] 98885- 3122 Dec, Diabetes type 2, controlled E11.9 and Chronic nonintractable headache, unspecified headache type R51 [facility] [id number] [place] [address] 88514- 9251 Dec, [facility] [address], [place] [address]- 1358 Dec, [facility] [id number] [place] [address] 91372- 2129 Nov, [facility] [id number] [place] [address] 73186- 2857 Nov, [facility] [address] [address]- 9097 Oct, [facility] [address], [place] [address]- 3443 Oct, Migraine without status migrainosus, not intractable, unspecified migraine type G43.909 [facility] [id number] [place] [address] 81973- 9566 Oct, [facility] [id number] [place] [address] 67720- 4766 Sep, Amput below knee, unilat S88.119A and Neuropathy G62.9 [facility] [id number] [place] [address] 73443- 6136 Sep, [facility] [id number] [place] [address] 58454- 3626 Sep, [facility] [id number] [place] [address] 89888- 9993 Sep, [facility] [id number] [place] [address] 34135- 4490 Aug, [facility] [id number] [place] [address] 84281- 1791 Aug, [facility] [id number] [place] [address] 89771- 5572 Aug, Diabetes type 2, controlled E11.9 [facility] [id number] [place] [address] 00403- 0126 Aug, [facility] [id number] [place] [address] 39884 2542 Jun, Diabetes type 2, controlled E11.9 and Neuropathy G62.9 [facility] [id number] [place] [address] 52230- 6767 Jun, [facility] [id number] [place] [address] 90155 2546 Jun, [facility] [id number] [place] [address] 15215- 7287 Jun, [facility] [address] [facility] [id number] [address]- 7157 Jun, [facility] [id number] [place] [address] 83202- 6598 May, [facility] [id number] [place] [address] 66741- 0823 May, Diabetes type 2, controlled E11.9 [facility] [id number] [place] [address] 29857- 1889 May, [facility] [id number] [place] [address] 41516- 6559 May, [facility] [id number] [place] [address] 92707- 2167 26 May, 2015 [facility] [id number] [place] [address] 14689- 5060 25 May, 2015 [facility] [id number] [place] [address] 24488- 2570 17 May, 2015 [facility] [id number] [place] [address] 70864- 5978 16 May, 2015 [facility] [address] [address]- 2546 16 May, 2015 [facility] [id number] [place] [address] 99230- 5312 15 May, 2015 COPD (chronic obstructive pulmonary disease) J44.9 [facility] [address] [address]- 5682 15 May, 2015 [facility] [address] [address]- 8302 12 May, 2015 [facility] [address] [address]- 3239 May, [facility] [id number] [place] [address] 58153- 3896 May, [facility] [id number] [address]- 6276 May, [facility] [address] [address]- 4806 May, Renal failure N19 and Pneumonia, organism unspecified, unspecified laterality, unspecified part of lung J18.9 [facility] [address] [place] [address]- 4699 Apr, [facility] [address] [place] [address]- 1654 Apr, [facility] [address] [address]- 7727 Apr, [facility] [address] [place] [address]- 6276 Apr, Diabetes mellitus 250.00 [facility] [address], [place] [address]- 9826 Apr, [facility] [address] [address]- 6886 Apr, [facility] [address] [address]- 4308 Apr, [facility] [address] [address]- 7290 Apr, [facility] [address], [place] [address]- 9961 Mar, [facility] [id number] [address]- 6941 Mar, [facility] [address] [place] [address]- 2896 Mar, [facility] [id number] [address]- 9636 Mar, Renal failure N19 [facility] [place] [facility] [address] [id number] [place] [address]- 0982 14 Mar, 2015 [facility] [place] [facility] [address] [id number] [place] [address]- 3390 Mar, [facility] [place] [facility] [address] [id number] [place] [address]- 8621 Mar, [facility] [place] [facility] [address] [id number] [place] [address]- 2769 24 Jan, 2015 [facility] [place] [facility] [address] [id number] [place] [address]- 6471 Jan, [facility] [place] [facility] [address] [id number] [place] [address]- 6018 Jan, [facility] [place] [facility] [address] [id number] [place] [address]- 5418 Jan, [facility] [place] [facility] [address] [id number] [place] [address]- 5954 Dec, [facility] [place] [facility] [address] [id number] [place] [address]- 3055 Dec, [facility] [place] [facility] [address] [id number] [place] [address]- 0069 Dec, [facility] [place] [facility] [address] [id number] [place] [address]- 5078 Nov, [facility] [place] [facility] [address] [id number] [place] [address]- 6120 Nov, [facility] [place] [facility] [address] [id number] [place] [address]- 9461 Nov, [facility] [place] [facility] [address] [id number] [place] [address]- 2485 Oct, [facility] [place] [facility] [address] [id number] [place] [address]- 2056 Oct, [facility] [place] [facility] [address] [id number] [place] [address]- 8732 Oct, Renal failure 586 and Obesity 278.00 [facility] [address] [address]- 6197 Oct, [facility] [address], [place] [address]- 9223 Oct, [facility] [id number] [address]- 7121 Oct, [facility] [id number] [place] [address] 69053- 0361 Sep, [facility] [id number] [place] [address] 56744- 1956 Sep, [facility] [id number] [address]- 8440 Sep, Diabetes mellitus 250.00 and Congestive heart failure, unspecified 428.0 [facility] [id number] [address]- 5207 Aug, [facility] [address] [address]- 3535 Aug, [facility] [address] [address]- 7418 Aug, [facility] [address] [address]- 5234 July, [facility] [address] [address]- 8514 July, [facility] [id number] [address]- 1146 July, Heart murmur, systolic 785.2 [facility] [address] [address]- 2370 July, [facility] [id number] [address]- 5791 July, [facility] [id number] [address]- 3032 14 Jun, 2014 [facility] [place] [facility] [address] [id number] [place] [address]- 9714 13 Jun, 2014 [facility] [place] [facility] [address] [id number] [place] [address]- 4972 23 May, 2014 [facility] [place] [facility] [address] [id number] [place] [address]- 8815 23 May, 2014 [facility] [place] [facility] [address] [id number] [place] [address]- 0455 18 May, 2014 [facility] [place] [facility] [address] [id number] [place] [address]- 8824 18 May, 2014 [facility] [place] [facility] [address] [facility] [id number] [place] [address]- 6763 16 May, 2014 [facility] [place] [facility] [address] [facility] [id number] [place] [address]- 9851 16 May, 2014 [facility] [place] [facility] [address] [facility] [id number] [place] [address]- 3887 10 May, 2014 [facility] [place] [facility] [address] [id number] [place] [address]- 3430 10 May, 2014 [facility] [place] [facility] [address] [facility] [id number] [place] [address]- 6733 May, [facility] [place] [facility] [address] [id number] [place] [address]- 0452 May, [facility] [place] [facility] [address] [facility] [id number] [place] [address]- 8799 May, [facility] [place] [facility] [address] [id number] [place] [address]- 2433 May, [facility] [place] [facility] [address] [facility] [id number] [place] [address] May, [facility] [place] [facility] [address] [id number] [id number] [address] May, [facility] [place] [facility] [address] [id number] [place] [address] May, 2014 [facility] [place] [facility] [address] [id number] [place] [address] 18 May, 2014 [facility] [place] [facility] [address] [facility] [id number] [place] [address] 18 May, 2014 [facility] [place] [facility] [address] [id number] [place] [address] May, 2014 [facility] [place] [facility] [address] [id number] [place] [address] May, 2014 [facility] [place] [facility] [address] [id number] [place] [address] May, 2014 [facility] [place] [facility] [address] [facility] [id number] [place] [address] 16 May, 2014 [facility] [place] [facility] [address] [id number] [place] [address] 16 May, 2014 [facility] [place] [facility] [address] [id number] [place] [address] May, 2014 [facility] [place] [facility] [address] [facility] [id number] [place] [address] May, 2014 [facility] [place] [facility] [address] [facility] [id number] [place] [address] May, 2014 [facility] [place] [facility] [address] [facility] [id number] [address] May, 2014 [facility] [place] [facility] [address] [id number] [place] [address] Apr, [facility] [place] [facility] [address] [id number] [place] [address] Apr, [facility] [place] [facility] [address] [facility] [id number] [place] [address] Apr, [facility] [place] [facility] [address] [id number] [place] [address] Apr, [facility] [place] [facility] [address] [id number] [place] [address] Apr, [facility] [place] [facility] [address] [id number] [place] [address] Apr, [facility] [place] [facility] [address] [id number] [place] [address] Apr, [facility] [place] [facility] [address] [id number] [place] [address] Apr, [facility] [place] [facility] [address] [id number] [place] [address] Mar, [facility] [place] [facility] [address] [id number] [place] [address] Mar, [facility] [place] [facility] [address] [id number] [place] [address] Mar, [facility] [place] [facility] [address] [id number] [place] [address] Mar, [facility] [place] [facility] [address] [id number] [place] [address] Mar, [facility] [place] [facility] [address] [id number] [place] [address] Mar, [facility] [place] [facility] [address] [id number] [place] [address] Mar, [facility] [place] [facility] [address] [id number] [place] [address] Mar, [facility] [place] [facility] [address] [id number] [place] [id number] [address] Mar, [facility] [place] [facility] [address] [address] [id number] [id number] [address] Mar, [facility] [place] [facility] [address] [id number] [place] [address] 3767 Mar, [facility] [place] [facility] [address] [id number] [place] [address] 0651 Mar, [facility] [place] [facility] [address] [id number] [place] [address]- 1996 Mar, [facility] [place] [facility] [address] [facility] [id number] [place] [address] 5532 Mar, [facility] [place] [facility] [address] [id number] [place] [address]- 2955 Mar, [facility] [place] [facility] [address] [id number] [place] [address]- 9432 Mar, [facility] [place] [facility] [address] [id number] [place] [address]- 1504 Mar, [facility] [place] [facility] [address] [id number] [place] [address]- 6562 Mar, [facility] [place] [facility] [address] [id number] [place] [address]- 4906 Mar, [facility] [place] [facility] [address] [id number] [place] [address]- 5431 Mar, [facility] [place] [facility] [address] [id number] [place] [address]- 3234 Mar, [facility] [place] [facility] [address] [id number] [address] Mar, [facility] [place] [facility] [address] [id number] [address] 9299 Jan, [facility] [place] [facility] [address] [id number] [place] [address]- 3225 Jan, [facility] [place] [facility] [address] [id number] [place] [address]- 8385 Jan, [facility] [place] [facility] [address] [id number] [place] [address]- 5813 Jan, [facility] [place] [facility] [address] [id number] [place] [address]- 8572 Jan, [facility] [place] [facility] [address] [id number] [place] [address]- 1419 Jan, [facility] [place] [facility] [address] [id number] [place] [address]- 9673 Jan, [facility] [place] [facility] [address] [id number] [place] [address]- 5478 Jan, [facility] [place] [facility] [address] [id number] [place] [address]- 9766 Jan, [facility] [place] [facility] [address] [id number] [place] [address]- 6087 Jan, [facility] [place] [facility] [address] [id number] [place] [address]- 2470 Jan, [facility] [place] [facility] [address] [id number] [place] [address]- 0441 Jan, [facility] [place] [facility] [address] [id number] [place] [address]- 7190 Jan, [facility] [place] [facility] [address] [id number] [place] [address]- 3944 Jan, [facility] [place] [facility] [address] [id number] [place] [address]- 2280 Jan, [facility] [place] [facility] [address] [id number] [place] [address]- 0830 Jan, [facility] [place] [facility] [address] [id number] [place] [address]- 7800 Jan, [facility] [place] [facility] [address] [id number] [place] [address]- 1142 Jan, [facility] [place] [facility] [address] [id number] [place] [address]- 4177 Jan, [facility] [place] [facility] [address] [id number] [place] [address]- 5769 Jan, [facility] [place] [facility] [address] [id number] [place] [address]- 2568 Dec, 2013 [facility] [place] [facility] [address] [id number] [place] [address]- 4472 Dec, [facility] [place] [facility] [address] [id number] [place] [address]- 1650 Dec, [facility] [place] [facility] [address] [id number] [place] [address]- 2141 Dec, [facility] [place] [facility] [address] [id number] [place] [address]- 4929 Dec, [facility] [place] [facility] [address] [id number] [place] [address]- 3925 Dec, [facility] [place] [facility] [address] [id number] [place] [address]- 9292 Dec, [facility] [place] [facility] [address] [id number] [place] [address]- 3195 Dec, [facility] [place] [facility] [address] [id number] [place] [address]- 2021 Dec, [facility] [place] [facility] [address] [id number] [place] [address]- 6235 Dec, [facility] [place] [facility] [address] [id number] [place] [address]- 9569 Dec, [facility] [place] [facility] [address] [id number] [place] [address]- 7127 Dec, [facility] [place] [facility] [address] [id number] [place] [address]- 2559 Dec, [facility] [place] [facility] [address] [id number] [place] [address]- 7991 Dec, [facility] [place] [facility] [address] [id number] [place] [address] Dec, [facility] [place] [facility] [address] [id number] [place] [address]- 7673 22 Nov, 2013 [facility] [place] [facility] [address] [id number] [place] [address] 2546 22 Nov, 2013 [facility] [place] [facility] [address] [id number] [place] [address] 2546 19 Nov, 2013 [facility] [place] [facility] [address] [id number] [place] [address] 2546 19 Nov, 2013 [facility] [place] [facility] [address] [id number] [place] [address] 254 13 Nov, 2013 [facility] [place] [facility] [address] [id number] [place] [address]- 2705 13 Nov, 2013 [facility] [place] [facility] [address] [id number] [place] [address]- 7483 10 Nov, 2013 [facility] [place] [facility] [address] [id number] [place] [address]- 8111 10 Nov, 2013 [facility] [place] [facility] [address] [id number] [place] [address]- 2992 08 Nov, 2013 [facility] [place] [facility] [address] [id number] [place] [address]- 6086 05 Nov, 2013 [facility] [place] [facility] [address] [id number] [place] [address]- 4213 05 Nov, 2013 [facility] [place] [facility] [address] [id number] [place] [address] 2543 Nov, 2013 [facility] [place] [facility] [address] [id number] [place] [address]- 7078 Nov, 2013 [facility] [place] [facility] [address] [id number] [place] [address]- 9800 Oct, [facility] [place] [facility] [address] [id number] [place] [address]- 2934 Oct, [facility] [place] [facility] [address] [id number] [place] [address]- 5899 Oct, [facility] [place] [facility] [address] [id number] [place] [address]- 4417 Oct, [facility] [place] [facility] [address] [id number] [place] [address]- 1679 Oct, [facility] [place] [facility] [address] [id number] [place] [address]- 4513 Sep, [facility] [place] [facility] [address] [id number] [place] [address]- 0682 Sep, [facility] [place] [facility] [address] [id number] [place] [address]- 8016 Sep, [facility] [place] [facility] [address] [id number] [place] [address]- 7424 Sep, [facility] [place] [facility] [address] [id number] [place] [address]- 7806 Aug, [facility] [place] [facility] [address] [id number] [place] [address]- 1454 Aug, [facility] [place] [facility] [address] [id number] [place] [address]- 9468 Aug, [facility] [place] [facility] [address] [id number] [place] [address]- 4927 Aug, [facility] [place] [facility] [address] [id number] [place] [address]- 7596 Aug, [facility] [place] [facility] [address] [id number] [place] [address]- 6595 Aug, [facility] [place] [facility] [address] [id number] [place] [address]- 1158 Aug, [facility] [place] [facility] [address] [id number] [place] [address]- 7112 Aug, [facility] [place] [facility] [address] [id number] [place] [address]- 2724 Aug, [facility] [place] [facility] [address] [id number] [place] [address]- 1147 Aug, [facility] [place] [facility] [address] [id number] [place] [address]- 6339 Aug, [facility] [place] [facility] [address] [id number] [place] [address]- 2448 Aug, [facility] [place] [facility] [address] [id number] [place] [address]- 3630 Aug, [facility] [place] [facility] [address] [id number] [place] [address]- 9552 Aug, [facility] [place] [facility] [address] [id number] [place] [address]- 8652 Aug, [facility] [place] [facility] [address] [id number] [place] [address]- 7788 Aug, [facility] [place] [facility] [address] [id number] [place] [address]- 5986 Aug, [facility] [place] [facility] [address] [id number] [place] [address]- 8130 Aug, [facility] [place] [facility] [address] [id number] [place] [address]- 6508 Aug, [facility] [place] [facility] [address] [id number] [place] [address]- 6593 Aug, [facility] [place] [facility] [address] [id number] [place] [address]- 0569 Aug, [facility] [place] [facility] [address] [id number] [place] [address]- 7119 Aug, [facility] [place] [facility] [address] [id number] [place] [address]- 9674 Aug, [facility] [place] [facility] [address] [id number] [place] [address]- 9564 Aug, [facility] [place] [facility] [address] [id number] [place] [address]- 6937 July, [facility] [place] [facility] [address] [id number] [place] [address]- 2175 July, [facility] [address] [id number] [place] [address]- 5068 July, [facility] [place] [facility] [address] [id number] [place] [address]- 5701 July, [facility] [place] [facility] [address] [id number] [place] [address]- 6606 July, [facility] [place] [facility] [address] [id number] [place] [address]- 5709 July, [facility] [place] [facility] [address] [id number] [place] [address]- 6451 Jun, [facility] [place] [facility] [address] [id number] [place] [address]- 1381 Jun, [facility] [place] [facility] [address] [id number] [place] [address]- 0666 Jun, [facility] [place] [facility] [address] [id number] [place] [address]- 5249 Jun, [facility] [place] [facility] [address] [id number] [place] [address]- 5048 Jun, [facility] [place] [facility] [address] [id number] [place] [address]- 0652 Jun, [facility] [place] [facility] [address] [id number] [place] [address]- 5624 Jun, [facility] [place] [facility] [address] [id number] [place] [address]- 4745 Jun, [facility] [place] [facility] [address] [id number] [place] [address]- 4778 Jun, [facility] [place] [facility] [address] [id number] [place] [address]- 6198 Jun, [facility] [place] [facility] [address] [id number] [place] [address]- 3947 Jun, [facility] [place] [facility] [address] [id number] [place] [address]- 6456 Jun, [facility] [place] [facility] [address] [id number] [place]706 Jun, [facility] [place] [facility] [address] [id number] [place] [address] Jun, [facility] [place] [facility] [address] [id number] [place] [address]- 2171 Jun, [facility] [place] [facility] [address] [id number] [place] [address]- 8454 May, [facility] [place] [facility] [address] [id number] [place] [address]- 2922 May, [facility] [place] [facility] [address] [id number] [place] [address]- 8515 May, [facility] [place] [facility] [address] [id number] [place] [address]- 7809 May, [facility] [place] [facility] [address] [id number] [place] [address]- 9799 May, [facility] [place] [facility] [address] [id number] [place] [address]- 8299 May, [facility] [place] [facility] [address] [id number] [place] [address]- 8512 May, [facility] [place] [facility] [address] [id number] [place] [address]- 7216 May, [facility] [place] [facility] [address] [id number] [place] [address]- 0079 May, [facility] [place] [facility] [address] [id number] [place] [address]- 5394 May, [facility] [place] [facility] [address] [id number] [place] [address]- 4761 May, [facility] [place] [facility] [address] [id number] [place] [address]- 1639 May, [facility] [place] [facility] [address] [id number] [place] [address]- 6803 May, [facility] [place] [facility] [address] [id number] [place]45 May, [facility] [place] [facility] [address] [id number] [place] [address]- 0486 May, [facility] [place] [facility] [address] [id number] [place] [address]- 4742 May, [facility] [place] [facility] [address] [id number] [place] [address]- 4664 May, [facility] [place] [facility] [address] [id number] [place] [address]- 8072 Apr, [facility] [place] [facility] [address] [id number] [place] [address]- 1429 Apr, [facility] [place] [facility] [address] [id number] [place] [address]- 5483 Apr, [facility] [place] [facility] [address] [id number] [place] [address]- 4269 Apr, [facility] [place] [facility] [address] [id number] [place] [address]- 4249 Apr, [facility] [place] [facility] [address] [id number] [place] [address]- 8284 Apr, [facility] [place] [facility] [address] [id number] [place] [address]- 5756 Apr, [facility] [place] [facility] [address] [id number] [place] [address]- 5178 Apr, [facility] [place] [facility] [address] [id number] [place] [address]- 0449 Apr, [facility] [place] [facility] [address] [id number] [place] [address]- 1279 Apr, [facility] [place] [facility] [address] [id number] [place] [address]- 2663 08 Apr, 2013 [facility] [address] [id number] [place] [address]- 2573 Apr, [facility] [place] [facility] [address] [id number] [place] [address]- 2057 Apr, [facility] [address] [id number] [place] [address]- 9335 Apr, [facility] [place] [facility] [address] [id number] [place] [address]- 5929 Apr, [facility] [address] [id number] [place] [address]- 7426 Apr, [facility] [address] [id number] [place] [address]- 4620 Mar, [facility] [place] [facility] [address] [id number] [place] [address]- 1689 30 Mar, 2013 [facility] [address] [id number] [place] [address]- 7986 30 Mar, 2013 [facility] [place] [facility] [address] [id number] [place] [address]- 8279 30 Mar, 2013 [facility] [address] [id number] [place] [address]- 4292 18 Mar, 2013 [facility] [place] [facility] [address] [id number] [place] [address]- 0207 18 Mar, 2013 [facility] [place] [facility] [address] [id number] [place] [address]- 1404 18 Mar, 2013 [facility] [place] [facility] [address] [id number] [place] [address]- 2073 18 Mar, 2013 [facility] [place] [facility] [address] [id number] [place] [address]- 0996 17 Mar, 2013 [facility] [place] [facility] [address] [id number] [place] [address]- 7908 Mar, [facility] [address] [id number] [place] [address]- 5843 Mar, [facility] [place] [facility] [address] [id number] [place] [address]- 4286 Mar, [facility] [place] [facility] [address] [id number] [place] [address]- 8465 Mar, [facility] [place] [facility] [address] [id number] [place] [address]- 2853 Mar, [facility] [address] [id number] [place] [address]- 6531 Mar, [facility] [place] [facility] [address] [id number] [place] [address]- 1637 Mar, [facility] [place] [facility] [address] [id number] [place] [address]- 4537 Mar, [facility] [place] [facility] [address] [id number] [address]- 4333 Mar, [facility] [place] [facility] [address] [id number] [place] [address]- 7704 Jan, [facility] [place] [facility] [address] [id number], [place] [address]- 6795 Jan, [facility] [place] [facility] [address] [id number], [place] [address]- 5076 Jan, [facility] [place] [facility] [address] [id number], [place] [address]- 1875 Jan, [facility] [place] [facility] [address] [id number] [place] [address]- 5036 Nov, [facility] [place] [facility] [address] [id number] [address]- 3984 10 Nov, 2012 [facility] [place] [facility] [address] [id number], [place] [address]- 6436 Nov, [facility] [place] [facility] [address] [id number] [place] [address]- 8599 Nov, [facility] [address] [id number] [place] [address]- 4637 Oct, [facility] [place] [facility] [address] [id number] [place] [address]- 9712 Oct, [facility] [place] [facility] [address] [id number] [place] [address]- 3388 Oct, [facility] [place] [facility] [address] [id number] [place] [address]- 1594 Oct, [facility] [place] [facility] [address] [id number] [place] [address]- 4668 Sep, [facility] [place] [facility] [address] [id number] [place] [address]- 1436 Sep, [facility] [place] [facility] [address] [id number] [place] [address]- 7928 Sep, [facility] [place] [facility] [address] [id number] [place] [address]- 1240 Sep, [facility] [place] [facility] [address] [id number] [place] [address]- 8514 Sep, [facility] [place] [facility] [address] [id number] [place] [address]- 5400 Sep, [facility] [place] [facility] [address] [id number] [place] [address]- 8653 Sep, [facility] [place] [facility] [address] [id number] [place] [address]- 6280 Sep, [facility] [place] [facility] [address] [id number] [place] [address]- 3571 Sep, [facility] [place] [facility] [address] [id number] [place] [address]- 9653 Aug, [facility] [place] [facility] [address] [id number] [place] [address]- 6735 Aug, [facility] [place] [facility] [address] [id number] [place] [address]- 6776 Aug, [facility] [address] [id number] [place] [address]- 3130 Aug, [facility] [address] [id number] [place] [address]- 0529 July, [facility] [address] [id number] [place] [address] July, [facility] [address] [id number] [place] [address] July, [facility] [address] [id number] [place] [address] July, [facility] [address] [id number] [place] [address] July, [facility] [address] [id number] [place] [address] July, [facility] [address] [id number] [place] [address] July, [facility] [address] [id number] [place] [address] Jun, [facility] [address] [id number] [place] [address] May, [facility] [address] [id number] [place] [address] May, [facility] [address] [id number] [place] [address] May, [facility] [place] [facility] [address] [id number] [place] [address] May, [facility] [place] [facility] [address] [id number] [place] [address] May, [facility] [place] [facility] [address] [id number] [place] [address] May, [facility] [address] [facility] [id number] [place] [address] May, [facility] [address] [facility] [id number] [place] [address] May, IMMUNIZATIONS No Known Immunizations SOCIAL HISTORY Never Assessed REASON FOR VISIT Refill request PLAN OF CARE VITAL SIGNS MEDICATIONS Medication Instructions Dosage Frequency Start Date End Date Duration Status Metoprolol Tartrate 100 mg TAKE ONE TABLET BY MOUTH TWICE DAILY - TAKE WITH MEALS 30 Active RESULTS No Results PROCEDURES No [...]
--- OUTSIDE RECORDS SUMMARY | 2017-12-18 20:07 | XMS REPORT ---
Author Author MCKENNA HEBERT Organization [facility] Address [address] [place] [address] Care Team Providers Care Brake Tester Name Role Phone MCKENNA HEBERT Unavailable PROBLEMS Type Condition ICD9-CM Code FIR65-FY Code Onset Dates Condition Status SNOMED Code Problem Diabetes type 2, controlled E11.9 Active 61781545 Problem Neuropathy G62.9 Active 937848903 Problem Renal failure N19 Active 61471364 Problem Cellulitis of right lower extremity L03.115 Active 857448688 Problem Angina pectoris I20.9 Active 740182240 Problem Seasonal allergic rhinitis due to other allergic trigger J30.89 Active 621810548 Problem Intra-dialytic hypotension I95.3 Active 882271352 Problem Amput below knee, unilat S88.119A Active 12349893 Problem Chronic congestive heart failure, unspecified heart failure type I50.9 Active 96556788 Problem Chronic congestive heart failure, unspecified congestive heart failure type I50.9 Active 51823546 ALLERGIES No Information ENCOUNTERS Encounter Location Date Diagnosis [place] [id number] [place] [address] 08185- 6687 Aug, [facility] [address] [address] 1023 July, [facility] [id number] [place] [address] 39898- 0995 16 Jun, 2017 [facility] [id number] [place] [address] 14680- 1887 Jun, [place] [id number] [place] [address] 28160- 5115 10 Jun, 2017 Diabetes type 2, controlled E11.9 [facility] [id number] [place] [address] 69425- 0004 Jun, [facility] [address] [address]- 4552 May, [facility] [id number] [place] [address] 91185- 5399 May, [facility] [id number] [place] [address] 49402- 3723 May, [facility] [id number] [place] [address] 80625- 8012 May, Chronic congestive heart failure, unspecified congestive heart failure type I50.9 [facility] [id number] [place] [address] 04319- 4711 May, Diabetes type 2, controlled E11.9 ; BMI 50.0-59.9, adult Z68.43 ; Chronic congestive heart failure, unspecified heart failure type I50.9 ; Angina pectoris I20.9 ; Seasonal allergic rhinitis due to other allergic trigger J30.89 and Renal failure N19 [facility] [address] [address] May, [facility] [id number] [place] [address] 11429- 1396 May, [facility] [id number] [place] [address] 32412- 1801 May, [facility] [id number] [place] [address] 89866- 0457 May, [facility] [address] [address]- 0155 May, [facility] [id number] [place] [address] 79410- 2108 Apr, BMI 50.0-59.9, adult Z68.43 [facility] [id number] [place] [address] 29151- 0033 Apr, BMI 50.0-59.9, adult Z68.43 ; Post-procedural fever R50.82 and Bronchitis J40 [facility] [id number] [address]- 9771 Apr, Chronic congestive heart failure, unspecified congestive heart failure type I50.9 [facility] [address] [facility] [id number] [place] [address]- 9076 Jan, [facility] [address] [facility] [id number] [place] [address] 62190- 6901 Jan, Diabetes type 2, controlled E11.9 [facility] [address] [facility] [id number] [address] 4100 Jan, Neuropathy G62.9 [facility] [address] [facility] [id number] [place] [address] 20391- 8846 Jan, [facility] [address] [address]- 5036 Jan, [facility] [id number] [place] [address] 69878- 1755 Jan, [facility] [address] [id number] [address]- 2586 Jan, [facility] [address] [address]- 9348 Jan, [facility] [address] [address]- 9033 Dec, [facility] [address] [id number] [address]- 4355 Dec, [facility] [address] [id number] [address]- 8677 Dec, Diabetes type 2, controlled E11.9 [facility] [address] [id number] [address]- 9136 Dec, [facility] [address] [id number] [address]- 2620 Dec, [facility] [address] [address]- 7453 Dec, Chronic congestive heart failure, unspecified congestive heart failure type I50.9 [facility] [address] [address]- 3344 Dec, [facility] [address] [address]- 9803 Dec, [facility] [address] [address]- 1133 Nov, Chronic congestive heart failure, unspecified congestive heart failure type I50.9 [facility] [address] [address]- 1135 Nov, Chronic congestive heart failure, unspecified congestive heart failure type I50.9 [facility] [address] [address]- 3294 Nov, [facility] [address] [address]- 0806 Oct, [facility] [address] [address]- 6303 Oct, [facility] [address] [address]- 6242 Oct, Chronic congestive heart failure, unspecified congestive heart failure type I50.9 [facility] [address] [address]- 6219 Oct, [facility] [address] [address]- 1427 Oct, Pneumonia of both lungs due to infectious organism, unspecified part of lung J18.9 [facility] [address] [address]- 5601 Oct, [facility] [address] [address]- 2561 Oct, Diabetes type 2, controlled E11.9 [facility] [id number] [place] [address] 77522- 4782 Oct, Diabetes type 2, controlled E11.9 [facility] [id number] [place] [address] 40493- 3038 Sep, [facility] [id number] [place] [address] 48037- 2888 Sep, Neuropathy G62.9 [facility] [id number] [place] [address] 96772- 5915 Aug, Intra-dialytic hypotension I95.3 [facility] [id number] [place] [address] 99493- 1961 July, [facility] [id number] [place] [address] 42889- 7327 July, [facility] [id number] [place] [address] 81961- 8496 July, [facility] [id number] [place] [address] 19486- 5372 July, Amput below knee, unilat S88.119A [facility] [id number] [place] [address] 33932- 0671 May, [facility] [id number] [place] [address] 28425- 7685 May, Neuropathy G62.9 [facility] [id number] [place] [address] 70455- 5901 May, [facility] [id number] [place] [address] 06684- 8424 May, [facility] [id number] [place] [address] 495104- 9626 May, [facility] [id number] [place] [address] 95553- 5667 May, [facility] [id number] [place] [address] 67128- 9956 May, Neuropathy G62.9 [facility] [address] [place] [address]- 1789 Apr, [facility] [address] [address]- 1632 Apr, [facility] [id number] [place] [address] 10077- 2439 Apr, Diabetes type 2, controlled E11.9 and Renal failure N19 [facility] [address] [facility] [id number] [place] [address], [place] [address] -9180 Apr, [facility] [id number] [place] [address], [place] [address]- 1073 Apr, [facility] [id number] [place] [address] 06165- 9244 Mar, [facility] [id number] [place] [address] 38325- 7559 Mar, [facility] [id number] [place] [address]- 7676 Mar, [facility] [id number] [place] [address] 90687- 0188 Mar, [facility] [address] [address]- 2211 Mar, [facility] [id number] [place] [address] 42834- 4996 Jan, Localized edema R60.0 [facility] [id number] [place] [address]- 8886 Jan, [facility] [id number] [place] [address] 07794- 1149 Jan, [facility] [address] [address]- 5377 Jan, [facility] [id number] [place] [address] 49512- 0166 Jan, [facility] [id number] [place] [address] 83972- 8519 Jan, [facility] [id number] [place] [address] 15230- 2360 Jan, [facility] [id number] [place] [address] 88763- 4064 Dec, Diabetes type 2, controlled E11.9 and Chronic nonintractable headache, unspecified headache type R51 [facility] [id number] [place] [address] 97219- 4073 Dec, [facility] [id number] [place] [address] 25393- 8276 Dec, [facility] [id number] [place] [address] 95487- 2102 Nov, [facility] [id number] [place] [address] 01381- 4300 Nov, [facility] [id number] [place] [address] 54219- 8408 Oct, [facility] [id number] [place] [address] 62403- 1708 Oct, Migraine without status migrainosus, not intractable, unspecified migraine type G43.909 [facility] [id number] [place] [address] 05093- 9154 Oct, [facility] [id number] [place] [address] 89983- 6491 Sep, Amput below knee, unilat S88.119A and Neuropathy G62.9 [facility] [id number] [place] [address] 12902- 0592 Sep, [facility] [id number] [place] [address] 28888- 1933 Sep, [facility] [address] [facility] [id number] [place] [address]- 4976 Sep, [facility] [address] [facility] [id number] [place] [address]- 9911 Aug, [facility] [address] [facility] [id number] [place] [address]- 1396 Aug, [facility] [address] [facility] [id number] [place] [address]- 9133 Aug, Diabetes type 2, controlled E11.9 [facility] [address] [facility] [id number] [place] [address]- 2366 Aug, [facility] [address] [facility] [id number] [place] [address]- 9023 Jun, Diabetes type 2, controlled E11.9 and Neuropathy G62.9 [facility] [id number] [address]- 6816 Jun, [facility] [address] [facility] [id number] [place] [address]- 1802 Jun, [facility] [id number] [place] [address]- 9902 Jun, [facility] [id number] [place] [address]- 3932 Jun, [facility] [id number] [place] [address]- 5887 May, [facility] [address] [facility] [id number] [place] [address]- 3422 May, Diabetes type 2, controlled E11.9 [facility] [address] [facility] [id number] [place] [address]- 5922 May, [facility] [address] [facility] [id number] [place] [address]- 0958 May, [facility] [address] [id number] [place] [address]- 2690 May, [facility] [address] [address]- 4494 May, [facility] [address] [address]- 0922 May, [facility] [address] [address]- 4083 May, [facility] [id number] [place] [address] 02674- 0238 May, [facility] [address] [address]- 9069 May, COPD (chronic obstructive pulmonary disease) J44.9 [facility] [address] [address]- 9268 May, [facility] [id number] [place] [address] 44155- 8068 May, [facility] [address] [address]- 0325 May, [facility] [address] [address]- 4841 May, [facility] [address] [address]- 2873 May, [facility] [address] [address]- 0394 May, Renal failure N19 and Pneumonia, organism unspecified, unspecified laterality, unspecified part of lung J18.9 [facility] [address] [address]- 6693 Apr, [facility] [address] [address]- 3727 Apr, [facility] [address] [address]- 9890 Apr, [facility] [address] [id number] [place] [address]- 0434 Apr, Diabetes mellitus 250.00 [facility] [address] [id number] [place] [address]- 2434 14 Apr, 2015 [facility] [address] [id number] [place] [address]- 8170 14 Apr, 2015 [facility] [address] [id number] [place] [address]- 6237 Apr, [facility] [address] [id number] [place] [address]- 9522 Apr, [facility] [address] [id number] [place] [address]- 6108 31 Mar, 2015 [facility] [id number] [address]- 9022 28 Mar, 2015 [facility] [address] [id number] [place] [address]- 2756 23 Mar, 2015 [facility] [address] [id number] [place] [address]- 4633 16 Mar, 2015 Renal failure N19 [facility] [id number] [place] [address]- 0261 14 Mar, 2015 [facility] [address] [id number] [place] [address]- 5111 Mar, [facility] [address] [id number] [place] [address]- 9830 04 Mar, 2015 [facility] [place] [facility] [address] [id number] [place] [address]- 0102 24 Jan, 2015 [facility] [address] [id number] [place] [address]- 0311 18 Jan, 2015 [facility] [place] [facility] [address] [facility] [id number] [place] [address]- 3124 17 Jan, 2015 [facility] [address] [id number] [place] [address]- 3869 Jan, [facility] [place] [facility] [address] [id number] [place] [address]- 2576 Dec, [facility] [place] [facility] [address] [id number] [place] [address]- 3044 Dec, [facility] [place] [facility] [address] [id number] [place] [address]- 5580 Dec, [facility] [place] [facility] [address] [id number] [place] [address]- 2246 Nov, [facility] [place] [facility] [id number] [place] [address], [place] [address]- 2107 Nov, [facility] [place] [facility] [address] [facility] [id number] [place] [address]- 8422 Nov, [facility] [place] [facility] [address] [facility] [id number] [place] [address]- 8100 Oct, [facility] [place] [facility] [address] [id number] [place] [address]- 5984 Oct, [facility] [place] [facility] [address] [facility] [id number] [place] [address]- 7144 Oct, Renal failure 586 and Obesity 278.00 [facility] [place] [facility] [address] [facility] [id number] [place] [address]- 5012 Oct, [facility] [place] [facility] [address] [facility] [id number] [place] [address]- 1524 Oct, [facility] [place] [facility] [address] [facility] [id number] [place] [address]- 4068 Oct, [facility] [place] [facility] [address] [facility] [id number] [place] [address]- 0231 Sep, [facility] [place] [facility] [address] [facility] [id number] [place] [address]- 3329 Sep, [facility] [place] [facility] [address] [facility] [id number] [place] [address]- 5494 Sep, Diabetes mellitus 250.00 and Congestive heart failure, unspecified 428.0 [facility] [address] [id number] [place] [address]- 7150 Aug, [facility] [address] [id number] [place] [address]- 7346 Aug, [facility] [address] [facility] [id number] [place] [address]- 8002 Aug, [facility] [address] [id number] [place] [address]- 8668 July, [facility] [address] [facility] [id number] [place] [address] 33977- 3243 July, [facility] [address] [address]- 3737 July, Heart murmur, systolic 785.2 [facility] [address] [facility] [id number] [place] [address]- 7015 July, [facility] [address] [id number] [address]- 3541 July, [facility] [id number] [address] Jun, [facility] [id number] [address] Jun, [facility] [address] [id number] [place] [address] May, [facility] [address] [id number] [place] [address] May, [facility] [address] [facility] [place] [id number] [place] [address] May, [facility] [address] [facility] [place] [id number] [place] [address] May, [facility] [address] [id number] [address] 16 May, 2014 [facility] [place] [facility] [address] [facility] [place] [id number] [place] [address] 16 May, 2014 [facility] [place] [facility] [address] [facility] [place] [id number] [place] [address] May, 2014 [facility] [place] [facility] [address] [facility] [place] [id number] [place] [address] 10 May, 2014 [facility] [place] [facility] [address] [facility] [place] [id number] [place] [address] May, 2014 [facility] [place] [facility] [address] [facility] [place] [id number] [place] [address] May, 2014 [facility] [place] [facility] [address] [facility] [place] [id number] [place] [address] May, 2014 [facility] [place] [facility] [address] [facility] [place] [id number] [place] [address] May, 2014 [facility] [place] [facility] [address] [facility] [place] [id number] [place] [address] May, 2014 [facility] [place] [facility] [address] [facility] [place] [id number] [place] [address] May, 2014 [facility] [place] [facility] [address] [facility] [place] [id number] [place] [address] May, 2014 [facility] [place] [facility] [address] [facility] [place] [place] [id number] [place] [address] 18 May, 2014 [facility] [place] [facility] [address] [facility] [place] [id number] [address] May, 2014 [facility] [place] [facility] [address] [facility] [place] [id number] [place] [address] May, 2014 [facility] [place] [facility] [address] [facility] [place] [id number] [place] [address] 18 May, 2014 [facility] [place] [facility] [address] [id number] [address] 18 May, 2014 [facility] [place] [facility] [address] [id number] [place] [address] May, [facility] [place] [facility] [address] [id number] [place] [address] May, 2014 [facility] [place] [facility] [address] [id number] [place] [address] May, 2014 [facility] [place] [facility] [address] [id number] [place] [address] May, 2014 [facility] [place] [facility] [address] [id number] [place] [address] May, [facility] [place] [facility] [address] [id number] [place] [address] May, [facility] [place] [facility] [address] [id number] [place] [address] Apr, [facility] [place] [facility] [address] [id number] [place] [address] Apr, [facility] [place] [facility] [address] [id number] [place] [address] Apr, [facility] [place] [facility] [address] [id number] [place] [address] Apr, [facility] [place] [facility] [address] [id number] [place] [address] Apr, [facility] [place] [facility] [address] [id number] [place] [address] Apr, [facility] [place] [facility] [address] [id number] [place] [address]- 0306 Apr, [facility] [place] [facility] [address] [id number] [place] [address]- 0380 Apr, [facility] [place] [facility] [address] [id number] [place] [address] 4245 Mar, [facility] [place] [facility] [address] [id number] [place] [address]- 3374 29 Mar, 2014 [facility] [address] [id number] [place] [address] 6226 Mar, [facility] [place] [facility] [address] [id number] [place] [address] 5416 Mar, [facility] [address] [id number] [place] [address]- 5116 Mar, [facility] [place] [facility] [address] [id number] [place] [address]- 0231 Mar, [facility] [address] [id number] [place] [address]- 0912 Mar, [facility] [place] [facility] [address] [id number] [place] [address]- 7956 Mar, [facility] [address] [id number] [place] [address]- 0876 Mar, [facility] [place] [facility] [address] [id number] [place] [address]- 1571 Mar, [facility] [place] [facility] [address] [id number] [place] [address]- 2368 Mar, [facility] [address] [id number] [place] [address]- 3044 Mar, [facility] [place] [facility] [address] [id number] [place] [address]- 5336 Mar, [facility] [place] [facility] [address] [id number] [place] [address]- 4748 Mar, [facility] [place] [facility] [address] [id number] [place] [address]- 3576 10 Mar, 2014 [facility] [place] [facility] [address] [id number] [place] [address]- 2546 10 Mar, 2014 [facility] [place] [facility] [address] [id number] [place] [address]- 4906 Mar, [facility] [place] [facility] [address] [id number] [place] [address]- 4718 Mar, [facility] [place] [facility] [address] [id number] [place] [address]- 1043 Mar, [facility] [place] [facility] [address] [id number] [place] [address]- 0680 Mar, [facility] [place] [facility] [address] [id number] [place] [address]- 0094 Mar, [facility] [place] [facility] [address] [id number] [place] [address]- 6793 Mar, [facility] [place] [facility] [address] [id number] [place] [address]- 3836 Jan, [facility] [place] [facility] [address] [id number] [place] [address]- 2864 Jan, [facility] [place] [facility] [address] [id number] [place] [address]- 8741 Jan, [facility] [place] [facility] [address] [id number] [place] [address]- 5591 Jan, [facility] [place] [facility] [address] [id number] [place] [address]- 7854 Jan, [facility] [place] [facility] [address] [id number] [place] [address] 1915 Jan, [facility] [place] [facility] [address] [id number] [place] [address]- 7196 Jan, [facility] [place] [facility] [address] [id number] [place] [address]- 4994 Jan, [facility] [place] [facility] [address] [id number] [place] [address]- 7786 Jan, [facility] [place] [facility] [address] [id number] [place] [address]- 4691 Jan, [facility] [place] [facility] [address] [id number] [place] [address]- 0140 Jan, [facility] [place] [facility] [address] [id number] [place] [address]- 1781 Jan, [facility] [place] [facility] [address] [id number] [place] [address]- 1822 Jan, [facility] [place] [facility] [address] [id number] [place] [address]- 0764 Jan, [facility] [place] [facility] [address] [id number] [place] [address]- 9270 Jan, [facility] [place] [facility] [address] [id number] [place] [address]- 6329 Jan, [facility] [place] [facility] [address] [id number] [place] [address]- 6675 Jan, [facility] [place] [facility] [address] [id number] [place] [address]- 8431 Jan, [facility] [place] [facility] [address] [id number] [place] [address]- 9968 Jan, [facility] [place] [facility] [address] [id number] [place] [address]- 0774 Jan, [facility] [place] [facility] [address] [id number] [place] [address]- 1686 Dec, [facility] [place] [facility] [address] [id number] [place] [address]- 7825 Dec, [facility] [place] [facility] [address] [id number] [place] [address]- 6991 Dec, [facility] [place] [facility] [address] [id number] [place] [address]- 1854 Dec, [facility] [place] [facility] [address] [id number] [place] [address]- 3683 Dec, [facility] [place] [facility] [address] [id number] [place] [address]- 5716 14 Dec, 2013 [facility] [place] [facility] [address] [id number] [place] [address]- 9833 14 Dec, 2013 [facility] [place] [facility] [address] [id number] [place] [address]- 8670 10 Dec, 2013 [facility] [place] [facility] [address] [id number] [place] [address]- 4926 10 Dec, 2013 [facility] [place] [facility] [address] [id number] [place] [address]- 2489 08 Dec, 2013 [facility] [place] [facility] [address] [id number] [place] [address]- 5779 08 Dec, 2013 [facility] [place] [facility] [address] [id number] [place] [address]- 5572 Dec, [facility] [place] [facility] [address] [id number] [place] [address]- 4693 Dec, [facility] [place] [facility] [address] [id number] [place] [address]- 9686 Dec, [facility] [place] [facility] [address] [id number] [place] [address]- 6573 Dec, [facility] [place] [facility] [address] [id number] [place] [address]- 4103 22 Nov, 2013 [facility] [place] [facility] [address] [id number] [place] [address]- 2069 22 Nov, 2013 [facility] [place] [facility] [address] [id number] [place] [address]- 7767 19 Nov, 2013 [facility] [place] [facility] [address] [id number] [place] [address]- 1233 19 Nov, 2013 [facility] [place] [facility] [address] [id number] [place] [address]- 2807 13 Nov, 2013 [facility] [place] [facility] [address] [id number] [place] [address]- 7785 13 Nov, 2013 [facility] [place] [facility] [address] [id number] [place] [address]- 1958 Nov, 2013 [facility] [place] [facility] [address] [id number] [place] [address]- 1467 Nov, 2013 [facility] [place] [facility] [address] [id number] [place] [address]- 8439 Nov, 2013 [facility] [place] [facility] [address] [id number] [place] [address]- 4315 Nov, 2013 [facility] [place] [facility] [address] [id number] [place] [address]- 7365 Nov, 2013 [facility] [place] [facility] [address] [id number] [place] [address]- 6519 Nov, [facility] [place] [facility] [address] [id number] [place] [address]- 5224 Nov, [facility] [place] [facility] [address] [id number] [place] [address]- 5878 Oct, [facility] [place] [facility] [address] [id number] [place] [address]- 9045 Oct, [facility] [place] [facility] [address] [id number] [place] [address]- 2390 Oct, [facility] [place] [facility] [address] [id number] [place] [address]- 5401 Oct, [facility] [place] [facility] [address] [id number] [place] [address]- 1878 Oct, [facility] [place] [facility] [address] [id number] [address]- 8088 Sep, [facility] [place] [facility] [address] [id number] [place] [address]- 4900 Sep, [facility] [place] [facility] [address] [id number] [place] [address]- 4783 Sep, [facility] [place] [facility] [address] [id number] [place] [address]- 6004 Sep, [facility] [place] [facility] [address] [id number] [place] [address]- 2282 30 Aug, 2013 [facility] [place] [facility] [address] [id number] [place] [address]- 9938 30 Aug, 2013 [facility] [place] [facility] [address] [id number] [place] [address]- 2906 Aug, [facility] [place] [facility] [address] [id number] [place] [address]- 8139 Aug, [facility] [place] [facility] [address] [id number] [place] [address]- 7218 Aug, [facility] [place] [facility] [address] [id number] [place] [address]- 0254 Aug, [facility] [place] [facility] [address] [id number] [place] [address]- 3462 Aug, [facility] [place] [facility] [address] [id number] [place] [address]- 1539 Aug, [facility] [place] [facility] [address] [id number] [place] [address]- 5293 Aug, [facility] [place] [facility] [address] [id number] [place] [address]- 1186 Aug, [facility] [place] [facility] [address] [id number] [place] [address]- 7580 Aug, [facility] [place] [facility] [address] [id number] [place] [address]- 0111 Aug, [facility] [place] [facility] [address] [id number] [place] [address]- 254 Aug, [facility] [place] [facility] [address] [id number] [place] [address]- 2608 Aug, [facility] [place] [facility] [address] [id number] [place] [address]- 1415 Aug, [facility] [place] [facility] [address] [id number] [place] [address]- 9788 Aug, [facility] [place] [facility] [address] [id number] [place] [address]- 0457 Aug, [facility] [place] [facility] [address] [id number] [place] [address]- 3695 Aug, [facility] [place] [facility] [address] [id number] [place] [address]- 2405 Aug, [facility] [place] [facility] [address] [id number] [place] [address]- 3326 Aug, [facility] [place] [facility] [address] [id number] [place] [address]- 5799 Aug, [facility] [place] [facility] [address] [id number] [place] [address]- 7358 Aug, [facility] [place] [facility] [address] [id number] [place] [address]- 3044 Aug, [facility] [place] [facility] [address] [id number] [place] [address]- 0822 Aug, [facility] [place] [facility] [address] [id number] [place] [address]- 0186 July, [facility] [place] [facility] [address] [id number] [place] [address]- 9540 July, [facility] [place] [facility] [address] [id number] [place] [address]- 1447 July, [facility] [place] [facility] [address] [id number] [place] [address]- 1520 July, [facility] [place] [facility] [address] [id number] [place] [address]- 9952 July, [facility] [place] [facility] [address] [id number] [place] [address]- 3482 July, [facility] [place] [facility] [address] [id number] [place] [address]- 3146 Jun, [facility] [place] [facility] [address] [id number] [place] [address]- 9099 Jun, [facility] [place] [facility] [address] [id number] [place] [address]- 8831 Jun, [facility] [place] [facility] [address] [id number] [place] [address]- 7616 Jun, [facility] [place] [facility] [address] [id number] [place] [address]- 1536 Jun, [facility] [place] [facility] [address] [id number] [place] [address]- 8950 Jun, [facility] [place] [facility] [address] [id number] [place] [address]- 4400 Jun, [facility] [place] [facility] [address] [id number] [place] [address]- 6807 Jun, [facility] [place] [facility] [address] [id number] [place] [address]- 1844 Jun, [facility] [place] [facility] [address] [id number] [place] [address]- 0748 Jun, [facility] [place] [facility] [address] [id number] [place] [address]- 0817 Jun, [facility] [place] [facility] [address] [id number] [place] [address]- 3708 Jun, [facility] [place] [facility] [address] [id number] [place] [address]- 9673 Jun, [facility] [place] [facility] [address] [id number] [place] [address]- 5657 Jun, [facility] [place] [facility] [address] [id number] [place] [address]- 5606 Jun, [facility] [place] [facility] [address] [id number] [place] [address]- 9729 May, [facility] [place] [facility] [address] [id number] [place] [address]- 9445 May, [facility] [place] [facility] [address] [id number] [place] [address]- 6246 May, [facility] [place] [facility] [address] [id number] [place] [address]- 5649 May, [facility] [place] [facility] [address] [id number] [place] [address]- 5443 May, [facility] [place] [facility] [address] [id number] [place] [address]- 2069 May, [facility] [place] [facility] [address] [id number] [place] [address]- 4557 May, [facility] [place] [facility] [address] [id number] [place] [address]- 8760 May, [facility] [place] [facility] [address] [id number] [place] [address]- 9278 May, [facility] [place] [facility] [address] [id number] [place] [address]- 9781 May, [facility] [place] [facility] [address] [id number] [place] [address]- 4796 May, [facility] [place] [facility] [address] [id number] [place] [address]- 3770 May, [facility] [place] [facility] [address] [id number] [place] [address]- 7909 May, [facility] [place] [facility] [address] [id number] [place] [address]- 7048 May, [facility] [place] [facility] [address] [id number] [place] [address]- 6196 May, [facility] [place] [facility] [address] [id number] [place] [address]- 5094 May, [facility] [place] [facility] [address] [id number] [place] [address]- 4110 May, [facility] [place] [facility] [address] [id number] [place] [address]- 4347 Apr, [facility] [place] [facility] [address] [id number] [place] [address]- 5437 Apr, [facility] [place] [facility] [address] [id number] [place] [address]- 0881 Apr, [facility] [place] [facility] [address] [id number] [place] [address]- 8224 Apr, [facility] [place] [facility] [address] [id number] [place] [address]- 1504 Apr, [facility] [place] [facility] [address] [id number] [place] [address]- 1858 Apr, [facility] [place] [facility] [address] [id number] [place] [address]- 0937 Apr, [facility] [place] [facility] [address] [id number] [place] [address]- 4642 Apr, [facility] [place] [facility] [address] [id number] [place] [address]- 9104 Apr, [facility] [place] [facility] [address] [id number] [place] [address]- 4500 Apr, [facility] [place] [facility] [address] [id number] [place] [address]- 3199 Apr, [facility] [place] [facility] [address] [id number] [place] [address]- 3834 Apr, [facility] [place] [facility] [address] [id number] [place] [address]- 0550 Apr, [facility] [place] [facility] [address] [id number] [place] [address]- 0584 Apr, [facility] [place] [facility] [address] [id number] [place] [address]- 7279 Apr, [facility] [place] [facility] [address] [id number] [place] [address]- 4914 Apr, [facility] [place] [facility] [address] [id number] [place] [address]- 8025 30 Mar, 2012 [facility] [address] [id number] [place] [address]- 5306 30 Mar, 2012 [facility] [address] [id number] [place] 5316 30 Mar, 2012 [facility] [address] [id number] [place] [address]- 2165 30 Mar, 2012 [facility] [address] [id number] [place] [address]- 0957 18 Mar, 2012 [facility] [address] [id number] [place] [address]- 8127 18 Mar, 2013 [facility] [address] [id number] [place] [address]- 2687 18 Mar, 2013 [facility] [address] [id number] [place] [address]- 4788 18 Mar, 2013 [facility] [address] [id number] [place] [address]- 8744 17 Mar, 2013 [facility] [address] [id number] [place] [address]- 2943 17 Mar, 2013 [facility] [address] [id number] [place] [address]- 8220 05 Mar, 2013 [facility] [address] [id number] [place] [address]- 0675 05 Mar, 2013 [facility] [place] [facility] [address] [id number] [place] [address]- 4713 04 Mar, 2013 [facility] [place] [facility] [address] [id number] [place] [address]- 7631 04 Mar, 2013 [facility] [place] [facility] [address] [id number] [place] 3474 04 Mar, 2013 [facility] [place] [facility] [address] [id number] [place] [address]- 4671 04 Mar, 2013 [facility] [place] [facility] [address] [id number] [place] [address]- 9954 Mar, [facility] [place] [facility] [address] [id number] [place] [address]- 0684 Mar, [facility] [place] [facility] [address] [id number] [place] [address]- 3603 Jan, [facility] [place] [facility] [address] [id number] [place] [address]- 6619 Jan, [facility] [place] [facility] [address] [id number] [place] [address]- 0108 Jan, [facility] [place] [facility] [address] [id number] [place] [address]- 8316 Jan, [facility] [place] [facility] [address] [id number] [place] [address]- 5204 Nov, [facility] [place] [facility] [address] [id number] [place] [address]- 8795 Nov, [facility] [place] [facility] [address] [id number] [place] [address]- 3085 Nov, [facility] [place] [facility] [address] [id number] [place] [address]- 5279 Nov, [facility] [place] [facility] [address] [id number] [place] [address]- 3879 Oct, [facility] [place] [facility] [address] [id number] [place] [address] Oct, [facility] [place] [facility] [address] [id number] [place] [address] Oct, [facility] [place] [facility] [address] [id number] [place] [address] Oct, [facility] [place] [facility] [address] [id number] [place] [address] Sep, [facility] [place] [facility] [address] [id number] [place] [address] Sep, [facility] [place] [facility] [address] [id number] [place] [address] Sep, [facility] [place] [facility] [address] [id number] [place] [address] Sep, [facility] [place] [facility] [address] [id number] [place] [address] Sep, [facility] [place] [facility] [address] [id number] [place] [address] Sep, [facility] [place] [facility] [address] [id number] [place] [address] Sep, [facility] [place] [facility] [address] [id number] [place] [address] Sep, [facility] [place] [facility] [address] [id number] [place] [address] Sep, [facility] [place] [facility] [address] [id number] [place] [address] Aug, [facility] [place] [facility] [address] [id number] [place] [address] Aug, [facility] [place] [facility] [address] [id number] [place] [address] Aug, [facility] [place] [facility] [address] [id number] [place] [address] Aug, [facility] [place] [facility] [address] [id number] [place] [address] July, [facility] [place] [facility] [address] [id number] [place] [address] July, [facility] [place] [facility] [address] [id number] [place] [address] July, [facility] [place] [facility] [address] [id number] [place] [address] July, [facility] [place] [facility] [address] [id number] [address] July, [facility] [id number] [address] July, [facility] [id number] [address] July, [facility] [id number] [address] Jun, [facility] [id number] [address] May, [facility] [id number] [address] May, [facility] [id number] [address] May, [facility] [id number] [address] May, [facility] [id number] [address] May, [facility] [id number] [address] May, [facility] [address] [id number] [address] May, [facility] [address] [id number] [address] May, IMMUNIZATIONS No Known Immunizations SOCIAL HISTORY [...]
--- OUTSIDE RECORDS SUMMARY | 2017-12-18 20:08 | XMS REPORT ---
Author Author MCKENNA HEBERT Organization [facility] Address [address] [place] [address] Care Team Providers Care Lead Massage Therapist Name Role Phone MCKENNA HEBERT Unavailable PROBLEMS Type Condition ICD9-CM Code PJB81-EU Code Onset Dates Condition Status SNOMED Code Problem Diabetes type 2, controlled E11.9 Active 87957505 Problem Neuropathy G62.9 Active 149700470 Problem Renal failure N19 Active 90443257 Problem Cellulitis of right lower extremity L03.115 Active 789416414 Problem Angina pectoris I20.9 Active 045404962 Problem Seasonal allergic rhinitis due to other allergic trigger J30.89 Active 584774600 Problem Intra-dialytic hypotension I95.3 Active 125232263 Problem Amput below knee, unilat S88.119A Active 84999711 Problem Chronic congestive heart failure, unspecified heart failure type I50.9 Active 26768931 Problem Chronic congestive heart failure, unspecified congestive heart failure type I50.9 Active [id number] ALLERGIES No Information ENCOUNTERS Encounter Location Date Diagnosis [place] [id number] [place] [address] 91759- 4671 Sep, [place] [address] [place] [id number] [place] [address] 87498- 3673 Aug, [place] [address] [place] [id number] [place] [address] 03404- 0124 Aug, Diabetes type 2, controlled E11.9 and Acute pain of right knee M25.561 [place] [address] [address]- 8596 09 Aug, 2017 [place] [address] [place] [id number] [place] [address] 09124- 3722 July, [facility] [address] [address]- 2107 16 Jun, 2017 [facility] [address], [place] [address]- 0110 Jun, [facility] [id number] [place] [address] 92734- 0328 Jun, Diabetes type 2, controlled E11.9 [facility] [address], [place] [address]- 0876 Jun, [facility] [address] [place] [id number] [place] [address] 91673- 5807 May, [facility] [id number] [place] [address] 18005- 4687 May, [facility] [address] [place] [id number] [place] [address] 17607- 8288 May, [facility] [address] [place] [id number] [place] [address] 12110- 4386 May, Chronic congestive heart failure, unspecified congestive heart failure type I50.9 [facility] [address], [place] [address]- 2964 May, Diabetes type 2, controlled E11.9 ; BMI 50.0-59.9, adult Z68.43 ; Chronic congestive heart failure, unspecified heart failure type I50.9 ; Angina pectoris I20.9 ; Seasonal allergic rhinitis due to other allergic trigger J30.89 and Renal failure N19 [facility] [address] [id number] May, [facility] [address], [place] [address]- 3545 May, [facility] [address] [id number] [address]- 0483 May, [facility] [address], [place] [address]- 2278 May, [facility] [id number] [place] [address] 85534- 8619 May, [facility] [id number] [place] [address] 78266- 4866 Apr, BMI 50.0-59.9, adult Z68.43 [facility] [id number] [place] [address] 97723- 3775 Apr, BMI 50.0-59.9, adult Z68.43 ; Post-procedural fever R50.82 and Bronchitis J40 [facility] [address] [place] [id number] [place] [address] 21246- 6723 Apr, Chronic congestive heart failure, unspecified congestive heart failure type I50.9 [facility] [address] [place] [id number] [place] [address] 89619- 7361 Jan, [facility] [address] [place] [id number] [place] [address] 57255- 5482 Jan, Diabetes type 2, controlled E11.9 [facility] [address] [place] [id number] [place] [address] 70016- 4085 Jan, Neuropathy G62.9 [facility] [address] [place] [id number] [place] [address] 88206- 5120 16 Jan, 2017 [facility] [id number] [place] [address] 70053- 1794 Jan, [facility] [id number] [place] [address] 58463- 3596 Jan, [facility] [address], [place] [address]- 8047 Jan, [facility] [address] [place] [id number] [place] [address] 83034- 8179 Jan, [facility] [address], [place] [address]- 7975 Dec, [facility] [id number] [place] [address] 16862- 1818 Dec, [facility] [address] [facility] [id number], [place] [address]- 1870 Dec, Diabetes type 2, controlled E11.9 [facility] [address] [id number], [place] [address]- 4230 Dec, [facility] [address] [facility] [id number], [place] [address]- 0272 Dec, [facility] [address] [facility] [id number], [place] [address]- 0080 Dec, Chronic congestive heart failure, unspecified congestive heart failure type I50.9 [facility] [address] [facility] [id number] [place] [address]- 1427 Dec, [facility] [address] [facility] [id number], [place] [address]- 0380 Dec, [facility] [address] [place] [id number] [address]- 5331 Nov, Chronic congestive heart failure, unspecified congestive heart failure type I50.9 [facility] [address] [facility] [id number], [place] [address]- 0414 Nov, Chronic congestive heart failure, unspecified congestive heart failure type I50.9 [facility] [address] [facility] [id number], [place] [address]- 9384 Nov, [facility] [address] [facility] [id number], [place] [address]- 9123 Oct, [facility] [address] [facility] [id number], [place] [address]- 7944 Oct, [facility] [address] [place] [id number] [address]- 8139 Oct, Chronic congestive heart failure, unspecified congestive heart failure type I50.9 [facility] [address] [facility] [id number], [place] [address]- 2470 Oct, [facility] [address] [facility] [id number], [place] [address]- 3134 Oct, Pneumonia of both lungs due to infectious organism, unspecified part of lung J18.9 [facility] [address], [place] [address]- 4626 Oct, [facility] [address], [place] [address]- 2173 Oct, Diabetes type 2, controlled E11.9 [facility] [address] [place] [id number] [place] [address] 64944- 6477 Oct, Diabetes type 2, controlled E11.9 [facility] [address] [place] [id number] [place] [address] 76926- 4538 Sep, [facility] [address] [place] [id number] [place] [address] 39442- 6086 Sep, Neuropathy G62.9 [facility] [address] [place] [id number] [place] [address] 65966- 5547 Aug, Intra-dialytic hypotension I95.3 [facility] [address], [place] [address]- 1366 July, [facility] [address] [place] [id number] [place] [address] 48373- 1508 July, [facility] [address], [place] [address]- 9723 July, [facility] [id number] [place] [address] 10347- 6477 July, Amput below knee, unilat S88.119A [facility] [address] [place] [id number] [place] [address] 15956- 2516 May, [facility] [address] [place] [id number] [place] [address] 93060- 7446 May, Neuropathy G62.9 [facility] [address], [place] [address]- 4996 May, [facility] [address] [facility] [id number] [place] [address]- 5032 May, [facility] [address] [place] [address]- 6554 May, [facility] [address] [facility] [id number] [place] [address]- 0339 May, [facility] [address] [place] [id number] [place] [address], [place] [address]- 4596 May, Neuropathy G62.9 [facility] [address] [place] [id number] [place] [address]- 2525 Apr, [facility] [id number] [place] [address], [place] [address]- 1423 Apr, [facility] [address] [place] [address]- 6801 Apr, Diabetes type 2, controlled E11.9 and Renal failure N19 [facility] [id number] [place] [address] -1332 Apr, [facility] [address] [place] [address]- 1807 Apr, [facility] [id number] [place] [address]- 2691 Mar, [facility] [id number] [place] [address]- 4444 Mar, [facility] [address] [place] [address]- 2547 Mar, [facility] [id number] [place] [address]- 4936 Mar, [facility] [address] [place] [address]- 6289 Mar, [facility] [address] [place] [address]- 5854 Jan, Localized edema R60.0 [facility] [address], [place] [address]- 9104 Jan, [facility] [address] [place] [id number] [place] [address] 65951- 9316 Jan, [facility] [id number] [place] [address] 40136- 9797 Jan, [facility] [address] [place] [id number] [place] [address] 27238- 2654 Jan, [facility] [id number] [place] [address] 33743- 4918 Jan, [facility] [address] [place] [id number] [place] [address] 10726- 6633 Jan, [facility] [address] [place] [id number] [place] [address] 68763- 8555 Dec, Diabetes type 2, controlled E11.9 and Chronic nonintractable headache, unspecified headache type R51 [facility] [id number] [place] [address] 62732- 4957 Dec, [facility] [address] [place] [id number] [place] [address] 44914- 8553 Dec, [facility] [address], [place] [address]- 6762 Nov, [facility] [address] [place] [id number] [place] [address] 28677- 6899 Nov, [facility] [id number] [place] [address] 39076- 0448 Oct, [facility] [address] [place] [id number] [place] [address] 47970- 1283 Oct, Migraine without status migrainosus, not intractable, unspecified migraine type G43.909 [facility] [address], [place] [address]- 3493 Oct, [facility] [address] [facility] [id number] [place] [address] 2546 Sep, Amput below knee, unilat S88.119A and Neuropathy G62.9 [facility] [address] [id number] [place] [address] 2546 Sep, [facility] [address] [facility] [id number] [place] [address] 2546 Sep, [facility] [address] [facility] [id number] [place] [address] 2546 Sep, [facility] [address] [id number] [place] [address] 2546 Aug, [facility] [address] [facility] [id number] [place] [address]- 6686 Aug, [facility] [address] [facility] [id number] [place] [address]- 5975 Aug, Diabetes type 2, controlled E11.9 [facility] [address] [facility] [id number] [place] [address] 2549 Aug, [facility] [address] [facility] [id number] [place] [address]- 8906 Jun, Diabetes type 2, controlled E11.9 and Neuropathy G62.9 [facility] [address] [facility] [id number] [place] [address] 2546 Jun, [facility] [address] [facility] [id number], [place] [address] 2541 Jun, [facility] [address] [facility] [id number] [place] [address] 2546 Jun, [facility] [address] [facility] [id number] [place] [address] 2546 Jun, [facility] [address] [facility] [id number] [place] [address] 2546 May, [facility] [address] [facility] [id number], [place] [address]- 7222 May, Diabetes type 2, controlled E11.9 [facility] [address], [place] [address]- 6382 May, [facility] [address], [place] [address]- 2581 May, [facility] [address], [place] [address]- 0366 May, [facility] [id number] [place] [address] 88149- 6254 May, [facility] [id number] [place] [address] 44276- 1340 May, [facility] [address], [place] [address]- 4253 May, [facility] [id number] [place] [address] 79427- 2169 May, [facility] [address], [place] [address]- 4144 May, COPD (chronic obstructive pulmonary disease) J44.9 [facility] [address], [place] [address]- 1186 May, [facility] [address], [place] [address]- 8718 May, [facility] [address], [place] [address]- 4596 May, [facility] [address], [place] [address]- 2354 May, [facility] [address], [place] [address]- 9716 05 May, 2015 [facility] [address], [place] [address]- 3232 May, Renal failure N19 and Pneumonia, organism unspecified, unspecified laterality, unspecified part of lung J18.9 [facility] [address] [place] [address]- 2784 Apr, [facility] [id number] [place] [address]- 2287 Apr, [facility] [address] [place] [address]- 1956 Apr, [facility] [id number] [place] [address], [place] [address]- 6409 Apr, Diabetes mellitus 250.00 [facility] [id number] [place] [address], [place] [address]- 2977 Apr, [facility] [address] [place] [address]- 7472 Apr, [facility] [id number] [place] [address], [place] [address]- 3648 Apr, [facility] [address], [place] [address]- 5783 Apr, [facility] [address] [place] [address]- 4795 Mar, [facility] [address], [place] [address]- 8903 Mar, [facility] [address] [place] [address]- 4292 Mar, [facility] [id number], [place] [address]- 8642 16 Mar, 2015 Renal failure N19 [facility] [address] [address]85 14 Mar, 2015 [facility] [id number], [place] [address]- 0903 Mar, [facility] [id number], [place] [address]- 8792 Mar, [facility] [place] [facility] [address] [id number], [place] [address]- 4110 Jan, [facility] [place] [facility] [address] [id number] [place] [address]- 5901 Jan, [facility] [place] [facility] [address] [facility] [id number] [place] [address]- 5016 Jan, [facility] [place] [facility] [address] [facility] [id number] [place] [address], [place] [address]- 2985 Jan, [facility] [place] [facility] [address] [id number] [place] [address]- 1228 Dec, [facility] [place] [facility] [address] [facility] [id number] [place] [address], [place] [address]- 8302 Dec, [facility] [place] [facility] [address] [id number] [place] [address], [place] [address]- 9123 Dec, [facility] [place] [facility] [address], [place] [address]- 8981 Nov, [facility] [place] [facility] [address] [facility] [id number] [place] [address]- 2755 Nov, [facility] [place] [facility] [address], [place] [address]- 2385 Nov, [facility] [place] [facility] [address], [place] [address]- 3806 Oct, [facility] [place] [facility] [address] [facility] [id number], [place] [address]- 9252 Oct, [facility] [place] [facility] [address] [facility] [id number], [place] [address]- 3476 Oct, Renal failure 586 and Obesity 278.00 [facility] [place] [facility] [address] [id number], [place] [address]- 9109 Oct, [facility] [place] [facility] [address] [facility] [id number], [place] [address]- 4879 Oct, [facility] [place] [facility] [address] [id number] [place] [address]- 8116 Oct, [facility] [address] [id number] [place] [address] Sep, [facility] [address] [facility] [id number] [place] [address] Sep, [facility] [id number] [place] [address] Sep, Diabetes mellitus 250.00 and Congestive heart failure, unspecified 428.0 [facility] [address] [id number] [place] [address] Aug, [facility] [address] [id number] [address] Aug, [facility] [id number] [place] [address] Aug, [facility] [address] [id number] [place] [address] July, [facility] [address] [id number] [place] [address] July, [facility] [id number], [place] [address] July, Heart murmur, systolic 785.2 [facility] [address] [id number] [place] [address] July, [facility] [address] [id number] [address] July, [facility] [address] [id number] [place] [address] Jun, [facility] [address] [facility] [id number], [place] [address] Jun, [facility] [address] [id number], [place] [address] May, [facility] [place] [facility] [address] [id number] [place] [address] May, [facility] [place] [facility] [address] [id number] [place] [address] May, [facility] [place] [facility] [address] [id number] [place] [address] May, [facility] [place] [facility] [address] [id number] [place] [address]- [address] May, [facility] [place] [facility] [address] [id number] [place] [address]- [address] 16 May, 2014 [facility] [place] [facility] [address] [id number] [place] [address] May, [facility] [place] [facility] [address] [id number] [place] [address]- [address] May, [facility] [place] [facility] [address] [id number] [place] [address]- [address] May, [facility] [place] [facility] [address] [id number] [place] [address] May, [facility] [place] [facility] [address] [id number] [place] [address]- [address]85 May, 2014 [facility] [place] [facility] [address] [id number] [place] [address]- [address] May, 2014 [facility] [place] [facility] [address] [id number] [place] [address]- [address] May, 2014 [facility] [place] [facility] [address] [id number] [place] [address]- [address] May, 2014 [facility] [place] [facility] [address] [id number] [place] [address]- [address] May, 2014 [facility] [place] [facility] [address] [id number] [place] [address] May, 2014 [facility] [place] [facility] [address] [id number] [place] [address] 18 May, 2014 [facility] [place] [facility] [address] [id number] [place] [address]990 May, 2014 [facility] [place] [facility] [address] [id number] [place] [address] 18 May, 2014 [facility] [place] [facility] [address] [id number] [place] [address] 18 May, 2014 [facility] [place] [facility] [address] [id number] [place] [address]- [address] 16 May, 2014 [facility] [place] [facility] [address] [id number] [place] [address]- [address] May, 2014 [facility] [place] [facility] [address] [id number] [place] [address]- [address] May, 2014 [facility] [place] [facility] [address] [id number] [place] [address]- [address] May, 2014 [facility] [place] [facility] [address] [id number] [place] [address]- [address] May, [facility] [place] [facility] [address] [facility] [id number] [place] [address]- [address] 02 May, 2014 [facility] [place] [facility] [address] [facility] [id number] [place] [address] Apr, [facility] [place] [facility] [address] [facility] [id number] [place] [address]- [address] Apr, [facility] [place] [facility] [address] [id number] [place] [address]- [address] 14 Apr, 2014 [facility] [place] [facility] [address] [id number] [place] [address]- [address] Apr, [facility] [place] [facility] [address] [facility] [id number] [place] [address]- [address] Apr, [facility] [place] [facility] [address] [facility] [id number] [place] [address]- [address] Apr, [facility] [place] [facility] [address] [id number] [place] [address]- [address] Apr, [facility] [place] [facility] [address] [id number] [place] [address]- [address] Apr, [facility] [place] [facility] [address] [address] [id number] [place] [address] Mar, [facility] [place] [facility] [address] [id number] [place] [address] 4[address] Mar, [facility] [place] [facility] [address] [id number] [place] [address] 4045 Mar, [facility] [place] [facility] [address] [id number] [place] [address] 1649 Mar, [facility] [place] [facility] [address] [id number] [place] [address] 5571 Mar, [facility] [place] [facility] [address] [id number] [place] [address]- 4662 Mar, [facility] [place] [facility] [address] [id number] [place] [address] 0147 Mar, [facility] [place] [facility] [address] [id number] [place] [address] 2093 Mar, [facility] [place] [facility] [address] [id number] [place] [address]- 1498 Mar, [facility] [place] [facility] [address] [id number] [place] [address]- 1305 Mar, [facility] [place] [facility] [address] [id number] [place] [address] 5870 Mar, [facility] [place] [facility] [address] [id number] [place] [address] 7605 Mar, [facility] [place] [facility] [address] [id number] [place] [address] 3672 Mar, [facility] [place] [facility] [address] [id number] [place] [address]- 6712 Mar, [facility] [place] [facility] [address] [id number] [place] [address] 9806 Mar, [facility] [place] [facility] [address] [id number] [place] [address]- 2526 Mar, [facility] [place] [facility] [address] [id number] [place] [address]- 9285 Mar, [facility] [place] [facility] [address] [id number] [place] [address]- 9988 Mar, [facility] [place] [facility] [address] [id number] [place] [address]- 9459 Mar, [facility] [place] [facility] [address] [id number] [place] [address]- 5495 Mar, [facility] [place] [facility] [address] [id number] [place] [address]- 2344 Mar, [facility] [place] [facility] [address] [id number] [place] [address]- 1329 Mar, [facility] [place] [facility] [address] [id number] [place] [address] 1174 Jan, [facility] [place] [facility] [address] [facility] [id number] [place] [address]- 2912 Jan, [facility] [place] [facility] [address] [id number] [place] [address]- 4805 Jan, [facility] [place] [facility] [address] [id number] [place] [address]- 3935 Jan, [facility] [place] [facility] [address] [id number] [place] [address]- 9348 Jan, [facility] [place] [facility] [address] [id number] [place] [address]- 5690 Jan, [facility] [place] [facility] [address] [id number] [place] [address]- 0171 Jan, [facility] [place] [facility] [address] [id number] [place] [address]- 9686 Jan, [facility] [place] [facility] [address] [id number] [place] [address]- 6743 Jan, [facility] [place] [facility] [address] [id number] [place] [address]- 4327 Jan, [facility] [place] [facility] [address] [id number] [place] [address]- 6333 Jan, [facility] [place] [facility] [address] [id number] [place] [address]- 7660 Jan, [facility] [place] [facility] [address] [id number] [place] [address]- 3485 Jan, [facility] [place] [facility] [address] [id number] [place] [address]- 7636 Jan, [facility] [place] [facility] [address] [id number] [place] [address]- 5302 Jan, [facility] [place] [facility] [address] [id number] [place] [address]- 0977 Jan, [facility] [place] [facility] [address] [id number] [place] [address]- 0974 Jan, [facility] [place] [facility] [address] [id number] [place] [address]- 6144 Jan, [facility] [place] [facility] [address] [id number] [place] [address]- 9160 Jan, [facility] [place] [facility] [address] [id number] [place] [address]- 7404 Jan, [facility] [place] [facility] [address] [id number] [place] [address]- 3975 Dec, [facility] [place] [facility] [address] [id number] [place] [address]- 9723 Dec, [facility] [place] [facility] [address] [id number] [place] [address]- 4871 Dec, [facility] [place] [facility] [address] [id number] [place] [address]- 7959 Dec, [facility] [place] [facility] [address] [id number] [place] Dec, [facility] [place] [facility] [address] [id number] [place] [address]- 5583 Dec, [facility] [place] [facility] [address] [id number] [place] [address]- 7233 Dec, [facility] [place] [facility] [address] [id number] [place] [address]- 5332 Dec, [facility] [place] [facility] [address] [id number] [place] [address]- 0418 Dec, [facility] [place] [facility] [address] [id number] [place] [address]- 5924 Dec, [facility] [place] [facility] [address] [id number] [place] [address]- 8359 Dec, [facility] [place] [facility] [address] [id number] [place] [address]- 7018 Dec, [facility] [place] [facility] [address] [id number] [place] [address]- 0778 Dec, [facility] [place] [facility] [address] [id number] [place] [address]- 1950 Dec, [facility] [place] [facility] [address] [id number] [place] [address]- 7765 Dec, [facility] [place] [facility] [address] [id number] [place] [address]- 4911 Nov, [facility] [place] [facility] [address] [id number] [place] [address]- 4850 Nov, [facility] [place] [facility] [address] [id number] [place] [address]- 1513 19 Nov, 2013 [facility] [place] [facility] [address] [id number] [place] [address]- 3153 19 Nov, 2013 [facility] [place] [facility] [address] [id number] [place] [address]- 6706 13 Nov, 2013 [facility] [place] [facility] [address] [id number] [place] [address]- 2546 13 Nov, 2013 [facility] [place] [facility] [address] [id number] [place] [address]- 0136 10 Nov, 2013 [facility] [place] [facility] [address] [id number] [place] [address]- 4477 10 Nov, 2013 [facility] [place] [facility] [address] [id number] [place] [address]- 5437 08 Nov, 2013 [facility] [place] [facility] [address] [id number] [place] [address]- 2321 05 Nov, 2013 [facility] [place] [facility] [address] [id number] [place] [address]- 8710 05 Nov, 2013 [facility] [place] [facility] [address] [id number] [place] [address]- 0264 Nov, 2013 [facility] [place] [facility] [address] [id number] [place] [address]- 4220 Nov, 2013 [facility] [place] [facility] [address] [id number] [place] [address]- 1974 Oct, [facility] [place] [facility] [address] [id number] [place] [address]- 2540 Oct, [facility] [place] [facility] [address] [id number] [place] [address]- 2540 Oct, [facility] [place] [facility] [address] [id number] [place] [address]- 5877 Oct, [facility] [place] [facility] [address] [id number] [place] [address]- 9881 Oct, [facility] [place] [facility] [address] [id number] [place] [address]- 7931 Sep, [facility] [place] [facility] [address] [id number] [place] [address]- 1427 Sep, [facility] [place] [facility] [address] [id number] [place] [address]- 1427 Sep, [facility] [place] [facility] [address] [id number] [place] [address]- 3746 Sep, [facility] [place] [facility] [address] [id number] [place] [address]- 0458 Aug, [facility] [place] [facility] [address] [id number] [place] [address]- 1678 Aug, [facility] [place] [facility] [address] [id number] [place] [address]- 0572 Aug, [facility] [place] [facility] [address] [id number] [place] [address]- 9248 Aug, [facility] [place] [facility] [address] [id number] [place] [address]- 5875 Aug, [facility] [place] [facility] [address] [id number] [place] [address]- 2672 Aug, [facility] [place] [facility] [address] [id number] [place] [address]- 2640 Aug, [facility] [place] [facility] [address] [id number], [place] [address]- 0825 Aug, [facility] [place] [facility] [address] [id number], [place] [address]- 6801 Aug, [facility] [place] [facility] [address] [id number] [place] [address]- 4661 Aug, [facility] [place] [facility] [address] [id number] [place] [address]- 0199 Aug, [facility] [place] [facility] [address] [id number] [place] [address]- 3555 Aug, [facility] [place] [facility] [address] [id number], [place] [address]- 0588 Aug, [facility] [place] [facility] [address] [id number] [place] [address]- 2744 Aug, [facility] [place] [facility] [address] [id number] [place] [address]- 4102 Aug, [facility] [place] [facility] [address] [id number] [place] [address]- 3220 Aug, [facility] [place] [facility] [address] [id number] [place] [address]- 4145 Aug, [facility] [place] [facility] [address] [id number] [place] [address]- 3000 Aug, [facility] [place] [facility] [address] [id number] [place] [address]- 9157 Aug, [facility] [place] [facility] [address] [id number] [place] [address]- 9033 Aug, [facility] [place] [facility] [address] [id number] [place] [address]- 2673 Aug, [facility] [place] [facility] [address] [id number] [place] [address]- 3242 Aug, [facility] [place] [facility] [address] [id number] [place] [address]- 6748 Aug, [facility] [place] [facility] [address] [id number] [place] [address]- 9630 Aug, [facility] [place] [facility] [address] [id number] [place] [address]- 0203 July, [facility] [place] [facility] [address] [id number] [place] [address]- 7450 July, [facility] [place] [facility] [address] [id number] [place] [address]- 8095 July, [facility] [place] [facility] [address] [id number] [place] [address]- 5902 July, [facility] [place] [facility] [address] [id number] [place] [address]- 6494 July, [facility] [place] [facility] [address] [id number] [place] [address]- 2746 July, [facility] [place] [facility] [address] [id number] [place] [address]- 1276 Jun, [facility] [place] [facility] [address] [id number] [place] [address]- 4335 Jun, [facility] [place] [facility] [address] [id number] [place] [address]- 3093 Jun, [facility] [place] [facility] [address] [id number] [place] [address]- 5347 Jun, [facility] [place] [facility] [address] [id number] [place] [address]- 6328 Jun, [facility] [place] [facility] [address] [id number] [place] [address]- 2877 Jun, [facility] [place] [facility] [address] [id number] [place] [address]- 0403 Jun, [facility] [place] [facility] [address] [id number] [place] [address]- 5167 Jun, [facility] [place] [facility] [address] [id number] [place] [address]- 8795 Jun, [facility] [place] [facility] [address] [id number] [place] [address]- 4866 Jun, [facility] [place] [facility] [address] [id number] [place] [address]- 2288 Jun, [facility] [place] [facility] [address] [id number] [place] [address]- 6778 Jun, [facility] [place] [facility] [address] [id number] [place] [address]- 4693 Jun, [facility] [place] [facility] [address] [id number] [place] [address]- 3427 Jun, [facility] [place] [facility] [address] [id number] [place] Jun, [facility] [place] [facility] [address] [id number] [place] [address]- 3162 May, [facility] [place] [facility] [address] [id number] [place] [address]- 9012 May, [facility] [place] [facility] [address] [id number] [place] [address]- 1476 May, [facility] [place] [facility] [address] [id number] [place] [address]- 0270 May, [facility] [place] [facility] [address] [id number] [place] [address]- 6554 May, [facility] [place] [facility] [address] [id number] [place] [address]- 0682 May, [facility] [place] [facility] [address] [id number] [place] [address]- 3753 May, [facility] [place] [facility] [address] [id number] [place] [address]- 4215 May, [facility] [place] [facility] [address] [id number] [place] [address]- 3952 May, [facility] [place] [facility] [address] [id number], [place] [address]- 4509 May, [facility] [place] [facility] [address] [id number], [place] [address]- 8455 May, [facility] [place] [facility] [address] [id number] [place] [address]- 6341 May, [facility] [place] [facility] [address] [id number] [place] [address]- 8184 May, [facility] [place] [facility] [address] [id number] [place] [address]- 1903 May, [facility] [place] [facility] [address] [id number] [place] [address]- 7815 13 May, 2013 [facility] [address] [id number] [place] [address]- 1046 May, [facility] [place] [facility] [address] [id number] [place] [address]- 6876 May, [facility] [place] [facility] [address] [id number] [place] [address]- 2090 Apr, [facility] [place] [facility] [address] [id number] [place] [address]- 0364 Apr, [facility] [place] [facility] [address] [id number] [place] [address]- 5601 Apr, [facility] [place] [facility] [address] [id number] [place] [address]- 9211 Apr, [facility] [place] [facility] [address] [id number] [place] [address]- 0359 Apr, [facility] [address] [id number] [place] [address]- 3153 Apr, [facility] [place] [facility] [address] [id number] [place] [address]- 0744 Apr, [facility] [place] [facility] [address] [id number] [place] [address]- 5283 Apr, [facility] [place] [facility] [address] [id number] [place] [address]- 7918 Apr, [facility] [place] [facility] [address] [id number] [place] [address]- 1726 Apr, [facility] [place] [facility] [address] [id number] [place] [address]- 6683 Apr, [facility] [place] [facility] [address] [id number] [place] [address]- 4375 Apr, [facility] [place] [facility] [address] [id number] [place] [address]- 0355 Apr, [facility] [place] [facility] [address] [id number] [place] [address]- 5327 Apr, [facility] [place] [facility] [address] [id number] [place] [address]- 8971 Apr, [facility] [place] [facility] [address] [id number] [place] [address]- 4568 Apr, [facility] [place] [facility] [address] [id number] [place] [address]- 9208 Mar, [facility] [place] [facility] [address] [id number] [place] [address]- 9993 Mar, [facility] [place] [facility] [address] [id number] [place] [address]- 5793 Mar, [facility] [place] [facility] [address] [id number] [place] [address]- 0951 Mar, [facility] [place] [facility] [address] [id number] [place] [address]- 6741 Mar, [facility] [place] [facility] [address] [id number] [place] [address]- 0962 Mar, [facility] [place] [facility] [address] [id number] [place] [address]- 6020 Mar, [facility] [place] [facility] [address] [id number] [place] [address]- 5778 Mar, [facility] [place] [facility] [address] [id number] [place] [address]- 0982 Mar, [facility] [place] [facility] [address] [id number] [place] [address]- 0227 Mar, [facility] [place] [facility] [address] [id number] [place] [address]- 5405 05 Mar, 2013 [facility] [place] [facility] [address] [id number] [place] [address]- 5413 05 Mar, 2013 [facility] [place] [facility] [address] [id number] [place] [address]- 7901 Mar, [facility] [address] [id number] [place] [address]- 4241 Mar, [facility] [address] [id number] [place] [address]802 Mar, [facility] [address] [id number] [place] [address]- 0729 Mar, [facility] [place] [facility] [address] [id number] [place] [address]- 2197 Mar, [facility] [address] [id number] [place] [address]- 8574 Mar, [facility] [address] [id number] [place] [address]- 0308 Jan, [facility] [address] [id number] [place] [address]- 7281 Jan, [facility] [address] [id number] [place] [address]- 9399 Jan, [facility] [address] [id number] [place] [address]- 7746 Jan, [facility] [address] [id number] [place] [address]- 3811 Nov, [facility] [place] [facility] [address] [id number] [place] [address]- 9650 Nov, [facility] [place] [facility] [address] [id number], [place] [address]- 2121 Nov, [facility] [place] [facility] [address] [id number], [place] [address]- 9943 Nov, [facility] [place] [facility] [address] [id number], [place] [address]- 5516 Oct, [facility] [place] [facility] [address] [id number], [place] [address]- 6624 Oct, [facility] [place] [facility] [address] [id number] [place] [address] Oct, [facility] [place] [facility] [address] [id number] [place] [address] Oct, [facility] [place] [facility] [address] [id number] [place] [address] Sep, [facility] [place] [facility] [address] [id number] [place] [address] Sep, [facility] [place] [facility] [address] [id number] [place] [address] Sep, [facility] [place] [facility] [address] [id number] [place] [address] Sep, [facility] [place] [facility] [address] [id number] [place] [address] Sep, [facility] [place] [facility] [address] [id number] [place] [address] Sep, [facility] [place] [facility] [address] [id number] [place] [address] Sep, [facility] [place] [facility] [address] [id number] [place] [address] Sep, [facility] [place] [facility] [address] [id number] [place] [address] Sep, [facility] [place] [facility] [address] [id number] [place] [address] Aug, [facility] [place] [facility] [address] [id number] [place] [address] Aug, [facility] [place] [facility] [address] [id number] [place] [address] Aug, [facility] [place] [facility] [address] [id number] [place] [address] Aug, [facility] [place] [facility] [address] [id number] [place] [address] July, [facility] [address] [facility] [id number] [place] [address] July, [facility] [address] [facility] [id number], [place] [address] July, [facility] [address] [facility] [id number] [place] [address] July, [facility] [address] [facility] [id number], [place] [address] July, [facility] [address] [facility] [id number] [place] [address] July, [facility] [address] [facility] [id number], [place] [address] July, [facility] [address] [facility] [id number], [place] [address] Jun, [facility] [address] [facility] [id number], [place] [address] May, [facility] [address] [facility] [id number], [place] [address] May, [facility] [address] [id number], [place] [address] May, [facility] [address] [id number], [place] [address] May, [facility] [address] [facility] [id number], [place] [address] May, [facility] [address] [facility] [id number], [place] [address] May, [facility] [address] [facility] [id number], [place] [address] May, [facility] [address] [facility] [id number], [place] [address] May, IMMUNIZATIONS No Known Immunizations SOCIAL HISTORY Never Assessed REASON FOR VISIT Refill request PLAN OF CARE VITAL SIGNS MEDICATIONS Medication Instructions Dosage Frequency Start Date End Date Duration Status Gabapentin 300 MG Orally Three times a day 1 capsule 8h Active Furosemide 40 mg 1 tablet 24h Active RESULTS No Results PROCEDURES No [...]
--- OUTSIDE RECORDS SUMMARY | 2017-12-18 20:08 | XMS REPORT ---
Author Author MCKENNA HEBERT Organization [facility] Address [address] [place] [address] Care Team Providers Care Supervisor Metal [employer] Name Role Phone MCKENNA HEBERT Unavailable PROBLEMS Type Condition ICD9-CM Code MAW97-YT Code Onset Dates Condition Status SNOMED Code Problem Diabetes type 2, controlled E11.9 Active 33109514 Problem Neuropathy G62.9 Active 107899114 Problem Renal failure N19 Active 38606861 Problem Cellulitis of right lower extremity L03.115 Active 945009419 Problem Angina pectoris I20.9 Active 650105320 Problem Seasonal allergic rhinitis due to other allergic trigger J30.89 Active 924356268 Problem Intra-dialytic hypotension I95.3 Active 415601582 Problem Amput below knee, unilat S88.119A Active 81809376 Problem Chronic congestive heart failure, unspecified heart failure type I50.9 Active 42051502 Problem Chronic congestive heart failure, unspecified congestive heart failure type I50.9 Active 98325630 ALLERGIES No Information ENCOUNTERS Encounter Location Date Diagnosis [facility] [id number] [place] [address] 05556- 5064 May, [facility] [id number] [place] [address] 24520- 4029 May, [facility] [id number] [place] [address] 14838- 2286 May, [facility] [id number] [place] [address] 52221- 0601 May, Chronic congestive heart failure, unspecified congestive heart failure type I50.9 [facility] [id number] [place] [address] 57076- 9803 May, Diabetes type 2, controlled E11.9 ; BMI 50.0-59.9, adult Z68.43 ; Chronic congestive heart failure, unspecified heart failure type I50.9 ; Angina pectoris I20.9 ; Seasonal allergic rhinitis due to other allergic trigger J30.89 and Renal failure N19 [facility] [address] [id number] May, [facility] [id number] [place] [address] 43403- 7404 May, [facility] [id number] [place] [address] 30809- 4499 May, [facility] [id number] [place] [address] 51554- 8782 May, [facility] [id number] [place] [address] 75090- 9164 May, [facility] [id number] [place] [address] 56139- 9352 Apr, BMI 50.0-59.9, adult Z68.43 [facility] [id number] [place] [address] 95681- 0950 Apr, BMI 50.0-59.9, adult Z68.43 ; Post-procedural fever R50.82 and Bronchitis J40 [facility] [id number] [place] [address] 97701- 5322 Apr, Chronic congestive heart failure, unspecified congestive heart failure type I50.9 [facility] [id number] [place] [address] 79203- 2250 Jan, [facility] [id number] [place] [address] 10162- 7927 Jan, Diabetes type 2, controlled E11.9 [facility] [id number] [place] [address] 66103- 9997 Jan, Neuropathy G62.9 [facility] [id number] [place] [address] 62107- 9956 Jan, [facility] [address] [facility] [id number], [place] [address]- 9716 Jan, [facility] [address] [facility] [id number], [place] [address]- 9748 Jan, [facility] [address] [facility] [id number], [place] [address]- 8194 Jan, [facility] [address], [place] [address]- 4570 Jan, [facility] [address] [facility] [id number], [place] [address]- 2077 Dec, [facility] [id number] [place] [address]- 4469 Dec, [facility] [address], [place] [address]- 8338 Dec, Diabetes type 2, controlled E11.9 [facility] [address], [place] [address]- 3118 Dec, [facility] [address] [id number], [place] [address]- 3215 Dec, [facility] [address], [place] [address]- 9737 Dec, Chronic congestive heart failure, unspecified congestive heart failure type I50.9 [facility] [address], [place] [address]- 4642 Dec, [facility] [address] [facility] [id number], [place] [address]- 8682 Dec, [facility] [address] [id number], [place] [address]- 4648 Nov, Chronic congestive heart failure, unspecified congestive heart failure type I50.9 [facility] [address] [id number], [place] [address]- 5225 Nov, Chronic congestive heart failure, unspecified congestive heart failure type I50.9 [facility] [address], [place] [address]- 9253 Nov, [facility] [address], [place] [address]- 5411 Oct, [facility] [address], [place] [address]- 3564 Oct, [facility] [id number] [place] [address] 54455- 7749 Oct, Chronic congestive heart failure, unspecified congestive heart failure type I50.9 [facility] [address], [place] [address]- 0175 Oct, [facility] [id number] [place] [address] 00575- 2281 Oct, Pneumonia of both lungs due to infectious organism, unspecified part of lung J18.9 [facility] [address], [place] [address]- 7377 Oct, [facility] [address], [place] [address]- 7606 Oct, Diabetes type 2, controlled E11.9 [facility] [address], [place] [address]- 0418 Oct, Diabetes type 2, controlled E11.9 [facility] [address], [place] [address]- 0789 Sep, [facility] [address], [place] [address]- 0633 Sep, Neuropathy G62.9 [facility] [address], [place] [address]- 6511 Aug, Intra-dialytic hypotension I95.3 [facility] [address], [place] [address]- 2999 July, [facility] [address], [place] [address]- 9574 July, [facility] [address] [id number] [place] [address] 2546 July, [facility] [address] [place] [address] 2546 July, Amput below knee, unilat S88.119A [facility] [id number] [place] [address] 2546 May, [facility] [address] [id number] [place] [address] 2546 May, Neuropathy G62.9 [facility] [id number] [place] [address], [place] [address]- 2686 May, [facility] [id number] [place] [address] 2546 May, [facility] [id number] [place] [address], [place] [address]- 9386 May, [facility] [id number] [place] [address]- 1628 May, [facility] [address] [place] [address]- 7926 May, Neuropathy G62.9 [facility] [address] [place] [address]- 3056 Apr, [facility] [address], [place] [address] 2546 Apr, [facility] [id number] [place] [address]- 5043 Apr, Diabetes type 2, controlled E11.9 and Renal failure N19 [facility] [id number] [place] [address] -1440 Apr, [facility] [id number] [place] [address]- 0166 Apr, [facility] [address] [facility] [id number] [place] [address]- 1460 Mar, [facility] [id number] [place] [address], [place] [address]- 1398 Mar, [facility] [id number] [place] [address]- 6929 Mar, [facility] [id number] [place] [address] 05747- 2104 Mar, [facility] [address] [facility] [id number] [place] [address], [place] [address]- 4292 Mar, [facility] [id number] [place] [address], [place] [address]- 8021 Jan, Localized edema R60.0 [facility] [id number] [place] [address] 21866- 5982 Jan, [facility] [id number] [place] [address] 69210- 0020 Jan, [facility] [id number] [place] [address] 40046- 6391 Jan, [facility] [id number] [place] [address] 37828- 4229 Jan, [facility] [address], [place] [address]- 2967 Jan, [facility] [id number] [place] [address] 15045- 6190 Jan, [facility] [address] [id number], [place] [address]- 8231 Dec, Diabetes type 2, controlled E11.9 and Chronic nonintractable headache, unspecified headache type R51 [facility] [address] [facility] [id number], [place] [address]- 6159 Dec, [facility] [id number] [place] [address] 61018- 5143 Dec, [facility] [address], [place] [address]- 1854 Nov, [facility] [id number] [place] [address] 31995- 0661 Nov, [facility] [id number] [place] [address] 60028- 4768 Oct, [facility] [id number] [place] [address] 99720- 2581 Oct, Migraine without status migrainosus, not intractable, unspecified migraine type G43.909 [facility] [id number] [place] [address] 67792- 0871 Oct, [facility] [id number] [place] [address] 03790- 6415 Sep, Amput below knee, unilat S88.119A and Neuropathy G62.9 [facility] [id number] [place] [address] 86051- 0947 Sep, [facility] [id number] [place] [address] 71913- 4443 Sep, [facility] [id number] [place] [address] 63052- 9647 Sep, [facility] [id number] [place] [address] 36537- 1075 Aug, [facility] [id number] [place] [address] 92446- 1553 Aug, [facility] [id number] [place] [address] 06407- 1311 Aug, Diabetes type 2, controlled E11.9 [facility] [address], [place] [address]- 5431 Aug, [facility] [address], [place] [address]- 7694 Jun, Diabetes type 2, controlled E11.9 and Neuropathy G62.9 [facility] [address] [facility] [id number] [place] [address]- 6920 14 Jul, 2015 [facility] [address] [facility] [id number] [place] [address]- 0776 Jun, [facility] [address] [place] [address]- 5283 Jun, [facility] [address] [facility] [id number] [place] [address]- 5903 Jun, [facility] [address] [facility] [id number] [place] [address]- 6957 May, [facility] [id number] [place] [address], [place] [address]- 0091 May, Diabetes type 2, controlled E11.9 [facility] [address] [place] [place] [address]- 2552 May, [facility] [address] [facility] [id number] [place] [address]- 9623 May, [facility] [address] [place] [address]- 6724 May, [facility] [address], [place] [address]- 1285 May, [facility] [address], [place] [address]- 3270 17 May, 2015 [facility] [address], [place] [address]- 2548 May, [facility] [address], [place] [address]- 1630 May, [facility] [address], [place] [address]- 7576 15 May, 2015 COPD (chronic obstructive pulmonary disease) J44.9 [facility] [address], [place] [address]- 4905 May, [facility] [address] [id number], [place] [address]- 2412 May, [facility] [address], [place] [address]- 9829 May, [facility] [address], [place] [address]- 9549 May, [facility] [address], [place] [address]- 2029 May, [facility] [address], [place] [address]- 0441 May, Renal failure N19 and Pneumonia, organism unspecified, unspecified laterality, unspecified part of lung J18.9 [facility] [address], [place] [address]- 6142 Apr, [facility] [address], [place] [address]- 2717 Apr, [facility] [address], [place] [address]- 1439 Apr, [facility] [address], [place] [address]- 9715 Apr, Diabetes mellitus 250.00 [facility] [address], [place] [address]- 8996 Apr, [facility] [id number], [place] [address]- 6468 Apr, [facility] [address], [place] [address]- 3747 Apr, [facility] [id number], [place] [address]- 7412 Apr, [facility] [id number], [place] [address]- 1578 Mar, [facility] [place] [facility] [address] [id number] [place] [address]- 9718 28 Mar, 2015 [facility] [place] [facility] [address] [id number] [place] 2214 23 Mar, 2015 [facility] [place] [facility] [address] [facility] [id number] [place]- 8382 16 Mar, 2015 Renal failure N19 [facility] [place] [facility] [id number] [place] [address], [place] [address]- 3948 14 Mar, 2015 [facility] [place] [facility] [address] [id number] [place] [address]- 5872 07 Mar, 2015 [facility] [place] [facility] [address] [id number] [place] [address]- 3387 04 Mar, 2015 [facility] [place] [facility] [address] [facility] [id number] [place] [address]- 8101 24 Jan, 2015 [facility] [place] [facility] [address] [facility] [id number] [place] [address], [place] [address]- 3816 18 Jan, 2015 [facility] [place] [facility] [address] [facility] [id number] [place] [address]- 6648 17 Jan, 2015 [facility] [place] [facility] [id number] [place] [address]- 4907 Jan, [facility] [place] [facility] [id number] [place] [address]- 9062 Dec, [facility] [place] [facility] [address] [id number], [place] [address]- 8086 Dec, [facility] [place] [facility] [address] [facility] [id number] [place] 6569 Dec, [facility] [place] [facility] [address] [facility] [id number] [place] [address]- 2534 21 Nov, 2014 [facility] [place] [facility] [address] [facility] [id number] [place] [address]- 2017 19 Nov, 2014 [facility] [place] [facility] [address] [facility] [id number], [place] [address]- 4344 Nov, [facility] [address] [facility] [id number], [place] [address]- 5895 Oct, [facility] [address] [facility] [id number], [place] [address]- 3506 Oct, [facility] [address] [facility] [id number], [place] [address]- 8367 Oct, Renal failure 586 and Obesity 278.00 [facility] [address] [id number], [place] [address]- 2909 Oct, [facility] [address] [facility] [id number] [place] [address] 54385- 0271 Oct, [facility] [id number], [place] [address]- 4909 Oct, [facility] [id number], [place] [address]- 0986 Sep, [facility] [address] [facility] [id number], [place] [address]- 4089 Sep, [facility] [address] [id number], [place] [address]- 1962 Sep, Diabetes mellitus 250.00 and Congestive heart failure, unspecified 428.0 [facility] [id number], [place] [address]- 9141 Aug, [facility] [address] [facility] [id number], [place] [address]- 8116 Aug, [facility] [address] [facility] [id number], [place] [address]- 3527 Aug, [facility] [address] [facility] [id number], [place] [address]- 5362 July, [facility] [address] [id number], [place] [address]- 2531 July, [facility] [address] [facility] [id number], [place] [address]- 3010 July, Heart murmur, systolic 785.2 [facility] [address] [id number] [place] [address]- 3106 July, [facility] [address] [id number] [place] [address]- 2546 July, [facility] [address] [id number] [place] [address]- 6435 Jun, [facility] [address] [id number] [place] [address]- 7667 Jun, [facility] [address] [id number] [place] [address]- 5707 May, [facility] [address] [id number] [place] [address]- 6517 May, [facility] [address] [id number] [place] [address]- 3068 May, [facility] [address] [id number] [place] [address]- 7400 May, [facility] [address] [id number] [place] [address]- 24[address] May, [facility] [address] [facility] [id number] [place] [address] 16 May, 2014 [facility] [address] [id number] [place] [address] May, [facility] [address] [id number] [place] [address] May, [facility] [address] [id number] [place] [address] May, [facility] [address] [id number] [place] [address] May, [facility] [address] [id number] [place] [address] May, 2014 [facility] [place] [facility] [address] [facility] [id number] [place] [address]- [address] May, 2014 [facility] [place] [facility] [address] [facility] [id number] [place] [address] 23 May, 2014 [facility] [place] [facility] [address] [facility] [id number] [place] [address]- [address] 23 May, 2014 [facility] [place] [facility] [address] [facility] [id number] [place] [address]- [address]83 18 May, 2014 [facility] [place] [facility] [address] [facility] [id number] [place] [address] 18 May, 2014 [facility] [place] [facility] [address] [facility] [id number] [place] [address]- [address] 18 May, 2014 [facility] [place] [facility] [address] [place] [id number] [place] [address] 18 May, 2014 [facility] [place] [facility] [address] [facility] [id number] [place] [address]- [address] 18 May, 2014 [facility] [place] [facility] [address] [facility] [id number] [place] [address] 18 May, 2014 [facility] [place] [facility] [address] [facility] [id number] [place] [address]- [address] 16 May, 2014 [facility] [place] [facility] [address] [facility] [id number] [place] [address]- [address] 16 May, 2014 [facility] [place] [facility] [address] [facility] [id number], [place] [address] 11 May, 2014 [facility] [place] [facility] [address] [facility] [id number] [place] [address]- [address]38 May, 2014 [facility] [place] [facility] [address] [facility] [id number], [place] [address] 02 May, 2014 [facility] [place] [facility] [address] [facility] [id number] [place] [address]- [address] May, [facility] [place] [facility] [address] [id number] [place] [address]- [address]15 Apr, [facility] [place] [facility] [address] [id number] [place] [address]- [address] Apr, [facility] [place] [facility] [address] [id number] [place] [address]- [address] Apr, [facility] [place] [facility] [address] [id number] [place] [address]- [address] Apr, [facility] [place] [facility] [address] [id number] [place] [address]- [address] Apr, [facility] [place] [facility] [address] [id number] [place] [address]- [address]16 Apr, [facility] [place] [facility] [address] [id number] [place] [address]- [address]461 Apr, [facility] [place] [facility] [address] [id number] [place] [address]- 7090 Apr, [facility] [place] [facility] [address] [id number] [place] [address]- [address]05 Mar, [facility] [place] [facility] [address] [id number] [place] [address]- [address] Mar, [facility] [place] [facility] [address] [id number] [place] [address]- 4045 Mar, [facility] [place] [facility] [address] [id number] [place] [address]- [address]209 Mar, [facility] [place] [facility] [address] [id number] [place] [address]- 1226 Mar, [facility] [place] [facility] [address] [id number] [place] [address]- [address]88 Mar, [facility] [place] [facility] [address] [id number] [place] [address]- [address]498 Mar, [facility] [place] [facility] [address] [id number] [place] [address]- [address]265 Mar, [facility] [place] [facility] [address] [id number] [place] [address]- 1446 Mar, [facility] [place] [facility] [address] [id number] [place] [address]- 7616 Mar, [facility] [place] [facility] [address] [id number] [place] [address]- [address]206 Mar, [facility] [place] [facility] [address] [address] [id number] [place] [address] Mar, [facility] [place] [facility] [address] [id number] [place] [address] 2510 Mar, [facility] [place] [facility] [address] [id number] [place] [address] 2764 Mar, [facility] [place] [facility] [address] [id number] [place] [address] 7660 Mar, [facility] [place] [facility] [address] [id number] [place] [address] 7788 Mar, [facility] [place] [facility] [address] [id number] [place] [address] 1647 Mar, [facility] [place] [facility] [address] [id number] [place] [address] 4407 Mar, [facility] [place] [facility] [address] [id number] [place] [address] 9819 Mar, [facility] [place] [facility] [address] [id number] [place] [address]- 1001 Mar, [facility] [place] [facility] [address] [id number] [place] [address]- 1555 Mar, [facility] [place] [facility] [address] [id number] [place] [address] 9456 Mar, [facility] [place] [facility] [address] [id number] [place] [address]- 0424 Jan, [facility] [place] [facility] [address] [id number] [place] [address]- 1177 Jan, [facility] [place] [facility] [address] [id number] [place] [address]- 5753 Jan, [facility] [place] [facility] [address] [id number] [place] [address]- 2481 Jan, [facility] [place] [facility] [address] [id number] [place] [address]- 8807 Jan, [facility] [place] [facility] [address] [id number] [place] [address]- 5625 Jan, [facility] [place] [facility] [address] [id number] [place] [address]- 2834 Jan, [facility] [place] [facility] [address] [id number] [place] [address]- 9969 Jan, [facility] [place] [facility] [address] [id number] [place] [address]- 5678 Jan, [facility] [place] [facility] [address] [id number] [place] [address]- 6647 Jan, [facility] [place] [facility] [address] [id number] [place] [address]- 3307 Jan, [facility] [place] [facility] [address] [id number] [place] [address]- 1264 Jan, [facility] [place] [facility] [address] [id number] [place] [address]- 2587 Jan, [facility] [place] [facility] [address] [id number] [place] [address]- 6218 Jan, [facility] [place] [facility] [address] [id number] [place] [address]- 5282 Jan, [facility] [place] [facility] [address] [id number] [place] [address]- 6218 Jan, [facility] [place] [facility] [address] [id number] [place] [address]- 1246 Jan, [facility] [place] [facility] [address] [id number] [place] [address]- 4768 Jan, [facility] [place] [facility] [address] [id number] [place] [address]- 4286 Jan, [facility] [place] [facility] [address] [id number] [place] [address]- 0621 Jan, [facility] [place] [facility] [address] [id number] [place] [address]- 8749 Dec, [facility] [place] [facility] [address] [id number] [place] [address]- 8438 Dec, [facility] [place] [facility] [address] [id number] [place] [address]- 1858 Dec, [facility] [place] [facility] [address] [id number] [place] [address]- 2809 Dec, [facility] [place] [facility] [address] [id number] [place] [address]- 3515 Dec, [facility] [place] [facility] [address] [id number] [place] [address]- 8462 Dec, [facility] [place] [facility] [address] [id number] [place] [address]- 2386 Dec, [facility] [place] [facility] [address] [id number], [place] [address]- 5343 Dec, [facility] [place] [facility] [address] [id number], [place] [address]- 3183 Dec, [facility] [place] [facility] [address] [id number] [place] [address]- 7641 Dec, [facility] [place] [facility] [address] [id number] [place] [address]- 6494 Dec, [facility] [place] [facility] [address] [id number] [place] [address]- 7333 Dec, [facility] [place] [facility] [address] [id number] [place] [address]- 7780 Dec, [facility] [place] [facility] [address] [id number] [place] [address]- 2586 Dec, [facility] [place] [facility] [address] [id number] [place] [address]- 0890 Dec, [facility] [place] [facility] [address] [id number] [place] [address]- 0416 22 Nov, 2013 [facility] [place] [facility] [address] [id number] [place] [address]- 7115 22 Sep, 2013 [facility] [place] [facility] [address] [id number] [place] [address]- 8164 19 Nov, 2013 [facility] [place] [facility] [address] [id number] [place] [address]- 1406 19 Sep, 2013 [facility] [place] [facility] [address] [id number] [place] [address]- 5917 13 Nov, 2013 [facility] [place] [facility] [address] [id number] [place] [address]- 0624 13 Sep, 2013 [facility] [place] [facility] [address] [id number] [place] [address]- 0048 10 Sep, 2013 [facility] [place] [facility] [address] [id number] [place] [address]- 5410 10 Sep, 2013 [facility] [place] [facility] [address] [id number] [place] [address]- 6226 08 Sep, 2013 [facility] [place] [facility] [address] [id number] [place] [address]- 2548 05 Sep, 2013 [facility] [place] [facility] [address] [id number] [place] [address]- 2542 05 Sep, 2013 [facility] [place] [facility] [address] [id number] [place] [address]- 3220 03 Sep, 2013 [facility] [place] [facility] [address] [id number] [place] [address]- 2544 03 Sep, 2013 [facility] [place] [facility] [address] [id number] [place] [address]- 5361 Oct, [facility] [place] [facility] [address] [id number] [place] [address]- 8887 Oct, [facility] [place] [facility] [address] [id number] [place] [address]- 0000 Oct, [facility] [place] [facility] [address] [id number] [place] [address]- 3039 Oct, [facility] [place] [facility] [address] [id number] [place] [address]- 7544 Oct, [facility] [place] [facility] [address] [id number] [place] [address]- 9499 Sep, [facility] [place] [facility] [address] [id number] [place] [address]- 8396 Sep, [facility] [place] [facility] [address] [id number] [place] [address]- 3309 Sep, [facility] [place] [facility] [address] [id number] [place] [address]- 7714 Sep, [facility] [place] [facility] [address] [id number] [place] [address]- 0650 Aug, [facility] [place] [facility] [address] [id number] [place] [address]- 9657 Aug, [facility] [place] [facility] [address] [id number] [place] [address]- 4821 Aug, [facility] [place] [facility] [address] [id number] [place] [address]- 1264 Aug, [facility] [place] [facility] [address] [id number] [place] [address]- 4764 Aug, [facility] [place] [facility] [address] [id number] [place] [address]- 3463 Aug, [facility] [place] [facility] [address] [id number] [place] [address]- 2702 Aug, [facility] [place] [facility] [address] [id number] [place] [address]- 1102 Aug, [facility] [place] [facility] [address] [id number] [place] [address]- 6684 Aug, [facility] [place] [facility] [address] [id number] [place] [address]- 9169 Aug, [facility] [place] [facility] [address] [id number] [place] [address]- 2603 Aug, [facility] [place] [facility] [address] [id number] [place] [address]- 5857 Aug, [facility] [place] [facility] [address] [id number] [place] [address]- 9687 Aug, [facility] [place] [facility] [address] [id number] [place] [address]- 1542 Aug, [facility] [place] [facility] [address] [id number] [place] [address]- 5257 Aug, [facility] [place] [facility] [address] [id number] [place] [address]- 8062 Aug, [facility] [place] [facility] [address] [id number] [place] [address]- 1103 Aug, [facility] [place] [facility] [address] [id number], [place] [address]- 1637 Aug, [facility] [place] [facility] [address] [id number], [place] [address]- 2922 Aug, [facility] [place] [facility] [address] [id number] [place] [address]- 3034 Aug, [facility] [place] [facility] [address] [id number] [place] [address]- 1939 Aug, [facility] [place] [facility] [address] [id number] [place] [address]- 0373 Aug, [facility] [place] [facility] [address] [id number] [place] [address]- 4822 Aug, [facility] [address] [id number] [place] [address]- 1060 Aug, [facility] [address] [id number] [place] [address]- 8068 July, [facility] [address] [id number] [place] [address]- 1558 July, [facility] [address] [id number] [place] [address]- 3798 July, [facility] [address] [id number] [place] [address]- 9465 July, [facility] [address] [id number] [place] [address]- 2852 July, [facility] [address] [id number] [place] [address]- 6371 July, [facility] [address] [id number] [place] [address]- 5044 Jun, [facility] [address] [id number] [place] [address]- 9219 Jun, [facility] [address] [id number] [place] [address]- 8812 Jun, [facility] [place] [facility] [address] [id number] [place] [address]- 5440 Jun, [facility] [place] [facility] [address] [id number] [place] [address]- 5419 Jun, [facility] [place] [facility] [address] [id number] [place] [address]- 1279 Jun, [facility] [place] [facility] [address] [id number] [place] [address]- 0104 Jun, [facility] [place] [facility] [address] [id number] [place] [address]- 7702 Jun, [facility] [place] [facility] [address] [id number] [place] [address]- 6802 Jun, [facility] [place] [facility] [address] [id number] [place] [address]- 7598 Jun, [facility] [place] [facility] [address] [id number] [place] [address]- 5107 Jun, [facility] [place] [facility] [address] [id number] [place] [address]- 9009 Jun, [facility] [place] [facility] [address] [id number] [place] [address]- 6711 Jun, [facility] [place] [facility] [address] [id number] [place] [address]- 4460 Jun, [facility] [place] [facility] [address] [id number] [place] [address]- 8516 Jun, [facility] [place] [facility] [address] [id number] [place] [address]- 9307 May, [facility] [place] [facility] [address] [id number] [place] [address]- 1005 May, [facility] [place] [facility] [address] [id number] [place] [address]- 1865 May, [facility] [place] [facility] [address] [id number] [place] [address]- 2823 May, [facility] [place] [facility] [address] [id number] [place] [address]- 3915 May, [facility] [place] [facility] [address] [id number] [place] [address]- 1452 May, [facility] [place] [facility] [address] [id number] [place] [address]- 7766 May, [facility] [place] [facility] [address] [id number] [place] [address]- 0975 May, [facility] [place] [facility] [address] [id number] [place] [address]- 2055 May, [facility] [place] [facility] [address] [id number] [place] [address]- 7669 May, [facility] [place] [facility] [address] [id number] [place] [address]- 4339 May, [facility] [place] [facility] [address] [id number] [place] [address]- 2076 May, [facility] [place] [facility] [address] [id number] [place] [address]- 4900 May, [facility] [place] [facility] [address] [id number] [place] [address]- 8839 May, [facility] [place] [facility] [address] [id number] [place] [address]- 8399 May, [facility] [place] [facility] [address] [id number] [place] [address]- 6254 May, [facility] [place] [facility] [address] [id number] [place] [address]- 4554 May, [facility] [place] [facility] [address] [id number] [place] [address]- 5457 Apr, [facility] [place] [facility] [address] [id number] [place] [address]- 1374 Apr, [facility] [place] [facility] [address] [id number] [place] [address]- 4131 Apr, [facility] [place] [facility] [address] [id number] [place] [address]- 7627 Apr, [facility] [place] [facility] [address] [id number] [place] [address]- 2675 Apr, [facility] [place] [facility] [address] [id number] [place] [address]- 9325 Apr, [facility] [place] [facility] [address] [id number] [place] [address]- 7203 Apr, [facility] [place] [facility] [address] [id number] [place] [address]- 9564 Apr, [facility] [place] [facility] [address] [id number] [place] [address]- 7940 Apr, [facility] [place] [facility] [address] [id number] [place] [address]- 8197 Apr, [facility] [place] [facility] [address] [id number] [place] [address]- 4821 Apr, [facility] [place] [facility] [address] [id number] [place] [address]- 0794 Apr, [facility] [place] [facility] [address] [id number] [place] [address]- 9159 Apr, [facility] [place] [facility] [address] [id number] [place] [address]- 7447 Apr, [facility] [place] [facility] [address] [id number] [place] [address]- 4549 Apr, [facility] [place] [facility] [address] [id number] [place] [address]- 6836 Apr, [facility] [place] [facility] [address] [id number] [place] [address]- 1879 Mar, [facility] [place] [facility] [address] [id number] [place] [address]- 9505 Mar, [facility] [place] [facility] [address] [id number] [place] [address]- 8216 Mar, [facility] [place] [facility] [address] [id number] [place] [address]- 0271 Mar, [facility] [place] [facility] [address] [id number] [place] [address]- 9581 Mar, [facility] [place] [facility] [address] [id number] [place] [address]- 5917 Mar, [facility] [place] [facility] [address] [id number], [place] [address]- 7986 18 Mar, 2013 [facility] [address] [id number] [place] [address]- 6356 18 Mar, 2013 [facility] [place] [facility] [address] [id number] [place] [address]- 2886 Mar, [facility] [place] [facility] [address] [facility] [id number] [place] [address]- 2682 Mar, [facility] [place] [facility] [address] [id number], [place] [address]- 4037 05 Mar, 2013 [facility] [address] [id number] [place] [address]- 9756 05 Mar, 2013 [facility] [place] [facility] [address] [id number] [place] [address]- 9270 Mar, [facility] [place] [facility] [address] [id number], [place] [address]- 4513 Mar, [facility] [place] [facility] [address] [id number], [place] [address]- 2354 Mar, [facility] [place] [facility] [address] [id number], [place] [address]- 5277 Mar, [facility] [place] [facility] [address] [id number][place] 3707 Mar, [facility] [place] [facility] [address] [id number], [place] [address]- 1043 Mar, [facility] [place] [facility] [address] [id number], [place] [address]- 0548 Jan, [facility] [place] [facility] [address] [id number], [place] [address]- 7088 Jan, [facility] [place] [facility] [address] [facility] [id number], [place] [address]- 1733 Jan, [facility] [place] [facility] [address] [facility] [id number], [place] [address]- 9304 Jan, [facility] [place] [facility] [address] [id number] [place] [address]- 5305 27 Nov, 2012 [facility] [address] [id number] [place] [address]- 8715 10 Nov, 2012 [facility] [address] [id number] [place] [address]- 2546 Nov, [facility] [address] [id number] [place] [address]- 1889 Nov, [facility] [address] [id number] [place] [address]- 0903 Oct, [facility] [address] [id number] [place] [address]- 6338 Oct, [facility] [address] [id number] [place] [address]- 6197 Oct, [facility] [address] [id number] [place] [address]- 3028 Oct, [facility] [address] [id number] [place] [address]- 8327 Sep, [facility] [address] [id number] [place] [address]- 4246 Sep, [facility] [address] [id number] [place] [address]- 6144 Sep, [facility] [place] [facility] [address] [id number] [place] [address]- 9678 Sep, [facility] [address] [id number] [place] [address]- 6667 Sep, [facility] [place] [facility] [address] [id number] [place] [address]- 3780 Sep, [facility] [place] [facility] [address] [id number] [place] [address]- 8770 Sep, [facility] [place] [facility] [address] [id number] [place] [address]- 8283 Sep, [facility] [address] [id number] [place] [address]- 5803 Sep, [facility] [place] [facility] [address] [id number] [place] [address]- 1036 Aug, [facility] [place] [facility] [address] [id number] [place] [address]- 9088 Aug, [facility] [place] [facility] [address] [id number] [place] [address]- 3005 Aug, [facility] [address] [id number] [place] [address]- 3715 Aug, [facility] [place] [facility] [address] [id number] [place] [address]- 7866 July, [facility] [place] [facility] [address] [id number] [place] [address] July, [facility] [address] [id number] [place] [address] July, [facility] [place] [facility] [address] [id number] [place] [address] July, [facility] [place] [facility] [address] [id number] [place] [address] July, [facility] [place] [facility] [address] [id number] [place] [address] July, [facility] [place] [facility] [address] [id number] [place] [address] July, [facility] [place] [facility] [address] [id number] [place] [address] Jun, [facility] [place] [facility] [address] [id number] [place] [address] May, [facility] [place] [facility] [address] [id number] [place] [address] May, [facility] [place] [facility] [address] [id number] [place] [address] May, [facility] [address] [facility] [id number], [place] [address] May, [facility] [address] [facility] [id number], [place] [address] May, [facility] [address] [facility] [id number], [place] [address] May, [facility] [address] [facility] [id number], [place] [address] May, [facility] [address] [facility] [id number], [place] [address] May, IMMUNIZATIONS No Known Immunizations SOCIAL HISTORY Never Assessed REASON FOR VISIT Duplicate Refill Request PLAN OF CARE VITAL SIGNS MEDICATIONS Unknown [...]
--- OUTSIDE RECORDS SUMMARY | 2017-12-18 20:10 | XMS REPORT ---
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 Name Role Phone MCKENNA HEBERT Unavailable PROBLEMS Type Condition ICD9-CM Code CNH58-UR Code Onset Dates Condition Status SNOMED Code Problem Diabetes type 2, controlled E11.9 Active 20569226 Problem Neuropathy G62.9 Active 931283545 Problem Renal failure N19 Active 95523669 Problem Cellulitis of right lower extremity L03.115 Active 440438242 Problem Angina pectoris I20.9 Active 418368393 Problem Seasonal allergic rhinitis due to other allergic trigger J30.89 Active 766464049 Problem Intra-dialytic hypotension I95.3 Active 047334776 Problem Amput below knee, unilat S88.119A Active 33187814 Problem Chronic congestive heart failure, unspecified heart failure type I50.9 Active 24362878 Problem Chronic congestive heart failure, unspecified congestive heart failure type I50.9 Active 57721878 ALLERGIES No Information ENCOUNTERS Encounter Location Date Diagnosis [facility] [id number] [place] [address]20- 8690 July, [facility] [address], [place] [address] 3693 Jun, [facility] [id number] [place] [address] 28999- 3917 Jun, [facility] [id number] [place] [address] 71040- 5498 Jun, Diabetes type 2, controlled E11.9 [facility] [address], [place] [address] 4325 Jun, [facility] [address] [place] [address] 64387- 8422 May, [facility] [address] [place] [address] 36128- 3366 May, [facility] [address] 82188- 4120 May, [facility] [id number] [place] [address] 42499- 0355 May, Chronic congestive heart failure, unspecified congestive heart failure type I50.9 [facility] [address] [address]- 5098 May, Diabetes type 2, controlled E11.9 ; BMI 50.0-59.9, adult Z68.43 ; Chronic congestive heart failure, unspecified heart failure type I50.9 ; Angina pectoris I20.9 ; Seasonal allergic rhinitis due to other allergic trigger J30.89 and Renal failure N19 [facility] [id number] [place] [address] [id number] May, [facility] [id number] [place] [address] 19573- 4328 May, [facility] [id number] [place] [address] 36749- 5311 May, [facility] [id number] [place] [address] 48696- 6081 May, [facility] [id number] [place] [address] 34921- 1291 May, [facility] [id number] [place] [address] 66092- 7946 Apr, BMI 50.0-59.9, adult Z68.43 [facility] [address] 62431- 4478 Apr, BMI 50.0-59.9, adult Z68.43 ; Post-procedural fever R50.82 and Bronchitis J40 [facility] [address] 89845- 0968 Apr, Chronic congestive heart failure, unspecified congestive heart failure type I50.9 [facility] [address] [id number], [place] [address] 9983 Jan, [facility] [address] [facility] [id number], [place] [address]- 2549 Jan, Diabetes type 2, controlled E11.9 [facility] [address] [facility] [id number] [place] [address]- 9764 Jan, Neuropathy G62.9 [facility] [address] [id number] [place] [address]- 7238 Jan, [facility] [address] [facility] [id number] [place] [address] 65221- 5848 Jan, [facility] [address] [facility] [id number], [place] [address]- 7352 Jan, [facility] [address] [facility] [id number], [place] [address]- 3778 Jan, [facility] [address] [facility] [id number], [place] [address]- 5044 Jan, [facility] [address] [id number], [place] [address]- 6165 Dec, [facility] [address] [facility] [id number], [place] [address]- 0889 Dec, [facility] [address] [facility] [id number], [place] [address]- 6575 Dec, Diabetes type 2, controlled E11.9 [facility] [address] [facility] [id number], [place] [address]- 0317 Dec, [facility] [address] [facility] [id number], [place] [address]- 3596 Dec, [facility] [address] [facility] [id number], [place] [address]- 9251 Dec, Chronic congestive heart failure, unspecified congestive heart failure type I50.9 [facility] [address] [facility] [id number] [place] [address]- 8542 Dec, [facility] [address] [facility] [id number], [place] [address]- 8173 Dec, [facility] [address] [facility] [id number] [place] [address]- 6329 Nov, Chronic congestive heart failure, unspecified congestive heart failure type I50.9 [facility] [address] [facility] [id number] [place] [address]- 4779 Nov, Chronic congestive heart failure, unspecified congestive heart failure type I50.9 [facility] [address] [facility] [id number], [place] [address]- 2405 Nov, [facility] [address] [facility] [id number], [place] [address]- 5468 Oct, [facility] [address] [facility] [id number], [place] [address]- 6030 Oct, [facility] [address] [facility] [id number], [place] [address]- 6377 Oct, Chronic congestive heart failure, unspecified congestive heart failure type I50.9 [facility] [address] [facility] [id number], [place] [address]- 4541 Oct, [facility] [address] [facility] [id number], [place] [address]- 6117 Oct, Pneumonia of both lungs due to infectious organism, unspecified part of lung J18.9 [facility] [address] [facility] [id number], [place] [address]- 7531 Oct, [facility] [address] [facility] [id number], [place] [address]- 7889 Oct, Diabetes type 2, controlled E11.9 [facility] [address] [facility] [id number], [place] [address]- 6133 Oct, Diabetes type 2, controlled E11.9 [facility] [address] [facility] [id number] [place] [address] 2546 Sep, [facility] [address] [facility] [id number] [place] [address], [place] [address] 2546 Sep, Neuropathy G62.9 [facility] [id number] [place] [address] 2546 Aug, Intra-dialytic hypotension I95.3 [facility] [id number] [place] [address], [place] [address] 2546 July, [facility] [id number] [place] [address], [place] [address] 2546 July, [facility] [id number] [place] [address] 69221 2546 July, [facility] [id number] [place] [address] 26901 2546 July, Amput below knee, unilat S88.119A [facility] [id number] [place] [address] 2546 May, [facility] [id number] [place] [address], [place] [address] 2546 May, Neuropathy G62.9 [facility] [address], [place] [address] 2546 May, [facility] [address], [place] [address] 2546 May, [facility] [address] [place] [address] 2546 May, [facility] [id number] [place] [address], [place] [address] 2546 May, [facility] [address], [place] [address] 2546 May, Neuropathy G62.9 [facility] [id number] [place] [address]- 2388 Apr, [facility] [address] [place] [address]- 8756 Apr, [facility] [address] [place] [address]- 6548 Apr, Diabetes type 2, controlled E11.9 and Renal failure N19 [facility] [id number] [place] [address], [place] [address] -3217 Apr, [facility] [id number] [place] [address]- 1391 Apr, [facility] [id number] [place] [address], [place] [address]- 3003 Mar, [facility] [id number] [place] [address], [place] [address]- 3521 Mar, [facility] [address] [place] [address], [place] [address]- 7849 Mar, [facility] [address] [place] [address]- 8377 Mar, [facility] [address] [place] [address]- 2034 Mar, [facility] [address] [place] [address]- 4252 Jan, Localized edema R60.0 [facility] [address], [place] [address]- 8674 Jan, [facility] [id number] [place] [address]- 5667 Jan, [facility] [address] [place] [address]- 5185 Jan, [facility] [address] [place] [address]- 8513 Jan, [facility] [id number] [place] [address] 50166- 0028 Jan, [facility] [id number] [place] [address] 07703- 9788 Jan, [facility] [id number] [place] [address] 04922- 3654 Dec, Diabetes type 2, controlled E11.9 and Chronic nonintractable headache, unspecified headache type R51 [facility] [id number] [place] [address] 27981- 9414 Dec, [facility] [id number] [place] [address] 48479- 3333 Dec, [facility] [id number] [place] [address] 47567- 6760 Nov, [facility] [id number] [place] [address] 43715- 4987 Nov, [facility] [id number] [place] [address] 47226- 0822 Oct, [facility] [id number] [place] [address] 32407- 0859 Oct, Migraine without status migrainosus, not intractable, unspecified migraine type G43.909 [facility] [id number] [place] [address] 78173- 5261 Oct, [facility] [id number] [place] [address] 64165- 4742 Sep, Amput below knee, unilat S88.119A and Neuropathy G62.9 [facility] [id number] [place] [address] 87290- 1684 Sep, [facility] [id number] [place] [address] 41033- 5205 Sep, [facility] [id number] [place] [address] 33840- 6052 Sep, [facility] [address] [facility] [id number] [place] [address]- 7545 30 Aug, 2015 [facility] [address] [facility] [id number] [place] [address]- 3732 Aug, [facility] [address] [facility] [id number] [place] [address]- 4423 17 Aug, 2015 Diabetes type 2, controlled E11.9 [facility] [address] [facility] [id number] [place] [address]- 0053 Aug, [facility] [address] [facility] [id number] [place] [address]- 1409 Jun, Diabetes type 2, controlled E11.9 and Neuropathy G62.9 [facility] [address] [facility] [id number] [place] [address]- 0259 Jun, [facility] [address] [place] [address]- 4702 Jun, [facility] [address] [facility] [id number] [place] [address]- 4298 Jun, [facility] [address] [place] [address]- 0734 Jun, [facility] [address] [place] [address]- 5723 May, [facility] [address] [facility] [id number] [place] [address]- 6402 May, Diabetes type 2, controlled E11.9 [facility] [address] [facility] [id number], [place] [address]- 6102 May, [facility] [id number] [place] [address]- 5409 May, [facility] [address] [facility] [id number] [place] [address]- 3176 May, [facility] [address], [place] [address]- 0035 May, [facility] [address], [place] [address]- 4699 May, [facility] [address], [place] [address]- 3736 May, [facility] [address], [place] [address]- 5326 May, [facility] [address] [place] [address] 63112- 2674 May, COPD (chronic obstructive pulmonary disease) J44.9 [facility] [address] [place] [address] 94432- 4394 May, [facility] [address], [place] [address]- 9195 May, [facility] [address] [place] [address] 33825- 1908 May, [facility] [address], [place] [address]- 1932 May, [facility] [address], [place] [address]- 2362 May, [facility] [address], [place] [address]- 1366 May, Renal failure N19 and Pneumonia, organism unspecified, unspecified laterality, unspecified part of lung J18.9 [facility] [address], [place] [address]- 4996 Apr, [facility] [address], [place] [address]- 6739 Apr, [facility] [address], [place] [address]- 1571 Apr, [facility] [address], [place] [address]- 3375 Apr, Diabetes mellitus 250.00 [facility] [address] [id number] [place] [address]- 0148 14 Apr, 2015 [facility] [address] [id number] [place] [address]- 7196 14 Apr, 2015 [facility] [address] [id number] [place] [address]- 2295 13 Apr, 2015 [facility] [address] [id number] [place] [address]- 4624 07 Apr, 2015 [facility] [address] [id number] [place] [address]- 0600 31 Mar, 2015 [facility] [address] [id number] [place] [address]- 7120 28 Mar, 2015 [facility] [address] [place] [address]- 7237 Mar, [facility] [address] [id number] [place] [address]- 0619 16 Mar, 2015 Renal failure N19 [facility] [address] [id number] [place] [address]- 8503 14 Mar, 2015 [facility] [address] [id number] [place] [address]- 8435 Mar, [facility] [address] [id number] [place] [address]- 7784 Mar, [facility] [address] [id number] [place] [address]- 7493 24 Jan, 2015 [facility] [place] [facility] [address] [id number] [place] [address]- 2094 18 Jan, 2015 [facility] [address] [facility] [id number] [place] [address]- 1727 17 Jan, 2015 [facility] [place] [facility] [id number] [place] [address]- 9311 13 Jan, 2015 [facility] [address] [id number] [place] [address]- 3427 Dec, [facility] [address] [id number] [place] [address]- 8118 Dec, [facility] [address] [facility] [id number] [place] [address]- 4984 Dec, [facility] [address] [facility] [id number] [place] [address]- 9942 Nov, [facility] [address] [id number] [place] [address]- 9433 Nov, [facility] [address] [id number] [place] [address]- 5803 Nov, [facility] [id number] [place] [address]- 1147 Oct, [facility] [address] [place] [address]- 6088 Oct, [facility] [id number] [place] [address]- 4278 Oct, Renal failure 586 and Obesity 278.00 [facility] [address] [place] [address]- 7414 Oct, [facility] [id number] [place] [address]- 4100 Oct, [facility] [address], [place] [address]- 7025 Oct, [facility] [id number], [place] [address]- 4568 Sep, [facility] [address] [place] [address]- 4554 Sep, [facility] [id number] [place] [address]- 3141 Sep, Diabetes mellitus 250.00 and Congestive heart failure, unspecified 428.0 [facility] [address] [id number] [place] [address]- 6796 Aug, [facility] [address] [id number] [place] [address]- 1494 Aug, [facility] [address] [id number] [place] [address]- 7219 Aug, [facility] [address] [id number] [place] [address]- 4848 July, [facility] [address] [id number] [place] [address]- 8046 July, [facility] [address] [id number] [place] [address]- 0084 July, Heart murmur, systolic 785.2 [facility] [address] [id number] [place] [address]- 1849 July, [facility] [address] [id number] [place] [address]- 8641 July, [facility] [address] [id number] [place] [address]- 2823 Jun, [facility] [address] [id number] [place] [address]- 7759 Jun, [facility] [address] [id number] [place] [address]- 2874 May, [facility] [address] [id number], [place] [address]- 5991 May, [facility] [address] [id number] [place] [address]- 7914 May, [facility] [address] [id number] [place] [address]- 1344 May, [facility] [address] [id number] [place] 1444 May, [facility] [address] [id number], [place] [address]- 7524 16 May, 2014 [facility] [place] [facility] [address] [facility] [id number] [place] [address]- 4559 10 May, 2014 [facility] [place] [facility] [address] [facility] [id number] [place] [address]- 3557 10 May, 2014 [facility] [place] [facility] [address] [facility] [id number] [place] [address]- 6877 May, 2014 [facility] [place] [facility] [address] [facility] [id number] [place] [address]- 0753 May, 2014 [facility] [place] [facility] [address] [facility] [id number] [place] [address]- 7434 May, 2014 [facility] [place] [facility] [address] [facility] [id number] [place] [address]- 1807 May, 2014 [facility] [place] [facility] [address] [facility] [id number] [place] [address]- 8418 May, 2014 [facility] [place] [facility] [address] [facility] [id number] [place] [address] 23 May, 2014 [facility] [place] [facility] [address] [facility] [id number] [place] [address] 18 May, 2014 [facility] [place] [facility] [address] [facility] [id number] [place] [address] 18 May, 2014 [facility] [place] [facility] [address] [facility] [id number] [place] [address] 18 May, 2014 [facility] [place] [facility] [address] [facility] [id number] [address] 18 May, 2014 [facility] [place] [facility] [address] [facility] [id number] [place] [address] 18 May, 2014 [facility] [place] [facility] [address] [facility] [id number] [place] [address] 18 May, 2014 [facility] [place] [facility] [address] [facility] [id number] [place] [address] May, 2014 [facility] [place] [facility] [address] [id number] [place] [address] May, 2014 [facility] [place] [facility] [address] [id number] [place] [address] May, [facility] [place] [facility] [address] [id number] [place] [address] May, [facility] [place] [facility] [address] [id number] [place] [address] May, [facility] [place] [facility] [address] [id number] [place] [address] May, [facility] [place] [facility] [address] [id number] [place] [address] Apr, [facility] [place] [facility] [address] [id number] [place] [address] Apr, [facility] [place] [facility] [address] [id number] [place] [address] Apr, [facility] [place] [facility] [address] [id number] [place] [address] Apr, [facility] [place] [facility] [address] [id number] [place] [address] Apr, [facility] [place] [facility] [address] [id number] [place] [address] Apr, [facility] [place] [facility] [address] [id number] [place] [address] Apr, [facility] [place] [facility] [address] [id number] [place] [address] Apr, [facility] [place] [facility] [address] [id number] [place] [address] Mar, [facility] [place] [facility] [address] [id number] [place] [address] Mar, [facility] [place] [facility] [address] [id number] [place] [address] Mar, [facility] [address] [id number] [place] [address] Mar, [facility] [place] [facility] [address] [id number] [place] [address] Mar, [facility] [address] [id number] [place] [address] Mar, [facility] [place] [facility] [address] [id number] [place] [address] Mar, [facility] [place] [facility] [address] [id number] [place] [address] Mar, [facility] [place] [facility] [address] [id number] [place] [address] Mar, [facility] [address] [id number] [place] [address] Mar, [facility] [place] [facility] [address] [id number] [place] [address] Mar, [facility] [place] [facility] [address] [id number] [place] [address] Mar, [facility] [address] [id number] [place] [address] 11 Mar, 2014 [facility] [place] [facility] [address] [id number] [place] [address] 4626 11 Mar, 2014 [facility] [place] [facility] [address] [id number] [place] [address] 8796 10 Mar, 2014 [facility] [place] [facility] [address] [id number] [place] [address] 0756 Mar, [facility] [place] [facility] [address] [id number] [place] [address] 3886 10 Mar, 2014 [facility] [place] [facility] [address] [id number] [place] [address] 2548 Mar, [facility] [place] [facility] [address] [id number] [place] [address] 2910 Mar, [facility] [place] [facility] [address] [id number] [place] [address]- 5723 Mar, [facility] [place] [facility] [address] [id number] [place] [address]- 5743 Mar, [facility] [place] [facility] [address] [id number] [place] [address]- 9102 Mar, [facility] [place] [facility] [address] [id number] [place] [address]- 1174 Jan, [facility] [place] [facility] [address] [id number] [place] [address]- 8260 Jan, [facility] [place] [facility] [address] [id number] [place] [address]- 6825 Jan, [facility] [place] [facility] [address] [id number] [place] [address]- 3059 Jan, [facility] [place] [facility] [address] [id number] [place] [address]- 4033 Jan, [facility] [place] [facility] [address] [id number] [place] [address]- 8754 Jan, [facility] [place] [facility] [address] [id number] [place] [address]- 0114 Jan, [facility] [place] [facility] [address] [id number], [place] [address] 9[address] Jan, [facility] [place] [facility] [address] [id number] [place] [address]- 3422 Jan, [facility] [place] [facility] [address] [id number] [place] [address]- 2680 Jan, [facility] [place] [facility] [address] [id number] [place] [address]- 6656 Jan, [facility] [place] [facility] [address] [id number], [place] [address] Jan, [facility] [place] [facility] [address] [id number] [place] [address]- 8879 Jan, [facility] [place] [facility] [address] [id number] [place] [address]- 6061 Jan, [facility] [place] [facility] [address] [id number] [place] [address]- 8311 Jan, [facility] [place] [facility] [address] [id number] [place] [address]- 7357 Jan, [facility] [place] [facility] [address] [id number] [place] [address]- 1052 Jan, [facility] [place] [facility] [address] [id number] [place] [address]- 2129 Jan, [facility] [place] [facility] [address] [id number] [place] [address]- 0568 Jan, [facility] [place] [facility] [address] [id number] [place] [address]- 9403 Jan, [facility] [place] [facility] [address] [id number] [place] [address]- 0404 Dec, [facility] [place] [facility] [address] [id number] [place] [address]- 1798 Dec, [facility] [place] [facility] [address] [id number], [place] [address]- 2246 Dec, [facility] [place] [facility] [address] [id number], [place] [address]- 2268 Dec, [facility] [place] [facility] [address] [id number] [place] [address]- 1265 Dec, [facility] [place] [facility] [address] [id number], [place] [address]- 4504 Dec, [facility] [place] [facility] [address] [id number] [place] [address]- 1824 Dec, [facility] [place] [facility] [address] [id number] [place] [address]- 6892 10 Dec, 2013 [facility] [place] [facility] [address] [id number] [place] [address]- 7432 Dec, [facility] [place] [facility] [address] [id number] [place] [address]- 2535 Dec, [facility] [place] [facility] [address] [id number] [place] [address]- 7702 Dec, [facility] [place] [facility] [address] [id number] [place] [address]- 6936 Dec, [facility] [place] [facility] [address] [id number] [place] [address]- 5270 Dec, [facility] [place] [facility] [address] [id number] [place] [address]- 3452 Dec, [facility] [place] [facility] [address] [id number] [place] [address]- 9030 Dec, [facility] [place] [facility] [address] [id number] [place] [address]- 3545 22 Nov, 2013 [facility] [place] [facility] [address] [id number] [place] [address]- 0603 22 Nov, 2013 [facility] [place] [facility] [address] [id number] [place] [address]- 2765 19 Nov, 2013 [facility] [place] [facility] [address] [id number] [place] [address]- 4401 19 Nov, 2013 [facility] [place] [facility] [address] [id number] [place] [address]- 2543 13 Nov, 2013 [facility] [place] [facility] [address] [id number] [place] [address]- 2546 13 Nov, 2013 [facility] [place] [facility] [address] [id number] [place] [address]- 2541 10 Nov, 2013 [facility] [place] [facility] [address] [id number] [place] [address]- 9549 Nov, [facility] [place] [facility] [address] [id number] [place] [address]- 9311 Nov, 2013 [facility] [place] [facility] [address] [id number] [place] [address]- 9239 Nov, [facility] [place] [facility] [address] [id number] [place] [address]- 1300 Nov, [facility] [place] [facility] [address] [id number] [place] [address]- 8652 Nov, [facility] [place] [facility] [address] [id number] [place] [address]- 6286 Nov, [facility] [place] [facility] [address] [id number] [place] [address]- 8756 Oct, [facility] [place] [facility] [address] [id number] [place] [address]- 4338 Oct, [facility] [place] [facility] [address] [id number] [place] [address]- 7166 Oct, [facility] [place] [facility] [address] [id number] [place] [address]- 0188 Oct, [facility] [place] [facility] [address] [id number] [place] [address]- 7327 Oct, [facility] [place] [facility] [address] [id number] [place] [address]- 1694 Sep, [facility] [place] [facility] [address] [id number], [place] [address]- 2492 Sep, [facility] [place] [facility] [address] [id number] [place] [address]- 7161 Sep, [facility] [place] [facility] [address] [id number] [place] [address]- 4356 Sep, [facility] [place] [facility] [address] [id number] [place] [address]- 7809 Aug, [facility] [place] [facility] [address] [id number] [place] [address]- 9615 30 Aug, 2013 [facility] [place] [facility] [address] [id number] [place] [address]- 1009 Aug, [facility] [place] [facility] [address] [id number] [place] [address]- 7175 Aug, [facility] [place] [facility] [address] [id number] [place] [address]- 7024 Aug, [facility] [place] [facility] [address] [id number] [place] [address]- 0249 Aug, [facility] [place] [facility] [address] [id number] [place] [address]- 5222 Aug, [facility] [place] [facility] [address] [id number] [place] [address]- 9460 Aug, [facility] [place] [facility] [address] [id number] [place] [address]- 4549 Aug, [facility] [place] [facility] [address] [id number] [place] [address]- 8976 Aug, [facility] [place] [facility] [address] [id number] [place] [address]- 0323 Aug, [facility] [place] [facility] [address] [id number] [place] [address]- 2961 Aug, [facility] [place] [facility] [address] [id number] [place] [address]- 7675 Aug, [facility] [place] [facility] [address] [id number] [place] [address]- 0076 Aug, [facility] [place] [facility] [address] [id number] [place] [address]- 0986 Aug, [facility] [place] [facility] [address] [id number] [place] [address]- 7754 Aug, [facility] [place] [facility] [address] [id number] [place] [address]- 4444 12 Aug, 2013 [facility] [place] [facility] [address] [id number] [place] [address]- 3699 Aug, [facility] [place] [facility] [address] [id number] [place] [address]- 9688 Aug, [facility] [place] [facility] [address] [id number] [place] [address]- 6741 Aug, [facility] [place] [facility] [address] [id number] [place] [address]- 3062 Aug, [facility] [place] [facility] [address] [id number] [place] [address]- 9240 Aug, [facility] [place] [facility] [address] [id number] [place] [address]- 2043 Aug, [facility] [place] [facility] [address] [id number] [place] [address]- 7107 Aug, [facility] [place] [facility] [address] [id number] [place] [address]- 3171 July, [facility] [place] [facility] [address] [id number] [place] [address]- 2039 July, [facility] [place] [facility] [address] [id number] [place] [address]- 8427 July, [facility] [place] [facility] [address] [id number] [place] [address]- 9027 July, [facility] [place] [facility] [address] [id number] [place] [address]- 1937 July, [facility] [place] [facility] [address] [id number] [place] [address]- 4590 July, [facility] [place] [facility] [address] [id number] [place] [address]- 1494 Jun, [facility] [place] [facility] [address] [id number] [place] [address]- 2271 Jun, [facility] [place] [facility] [address] [id number] [place] [address]- 7426 Jun, [facility] [place] [facility] [address] [id number] [place] [address]- 1516 Jun, [facility] [place] [facility] [address] [id number] [place] [address]- 6201 Jun, [facility] [place] [facility] [address] [id number] [place] [address]- 2858 Jun, [facility] [place] [facility] [address] [id number] [place] [address]- 1051 Jun, [facility] [place] [facility] [address] [id number] [place] [address]- 5641 Jun, [facility] [place] [facility] [address] [id number] [place] [address]- 2717 Jun, [facility] [place] [facility] [address] [id number] [place] [address]- 1131 Jun, [facility] [place] [facility] [address] [id number] [place] [address]- 7906 Jun, [facility] [place] [facility] [address] [id number] [place] [address]- 8585 Jun, [facility] [place] [facility] [address] [id number] [place] [address]- 1916 Jun, [facility] [place] [facility] [address] [id number] [place] [address]- 9130 Jun, [facility] [place] [facility] [address] [id number] [place] [address]- 7237 Jun, [facility] [place] [facility] [address] [id number] [place] [address]- 1983 May, [facility] [place] [facility] [address] [id number] [place] [address]- 6310 May, [facility] [place] [facility] [address] [id number] [place] [address]- 3519 May, [facility] [place] [facility] [address] [id number] [place] [address]- 2815 May, [facility] [place] [facility] [address] [id number] [place] [address]- 3866 May, [facility] [place] [facility] [address] [id number] [place] 9510 May, [facility] [place] [facility] [address] [id number] [place] [address]- 5392 May, [facility] [place] [facility] [address] [id number] [place] [address]- 8481 May, [facility] [place] [facility] [address] [id number] [place] [address]- 3743 May, [facility] [place] [facility] [address] [id number] [place] [address]- 0413 May, [facility] [place] [facility] [address] [id number] [place] [address]- 8538 May, [facility] [place] [facility] [address] [id number] [place] [address]- 0350 May, [facility] [place] [facility] [address] [id number] [place] [address]- 3803 May, [facility] [place] [facility] [address] [id number] [place] [address]- 7708 May, [facility] [place] [facility] [address] [id number] [place] [address]- 1735 May, [facility] [place] [facility] [address] [id number] [place] [address]- 4223 May, [facility] [place] [facility] [address] [id number] [place] [address]- 1898 May, [facility] [place] [facility] [address] [id number] [place] [address]- 0649 Apr, [facility] [place] [facility] [address] [id number] [place] [address]- 7349 Apr, [facility] [place] [facility] [address] [id number] [place] [address]- 8870 Apr, [facility] [place] [facility] [address] [id number] [place] [address]- 1565 Apr, [facility] [place] [facility] [address] [id number] [place] [address]- 4689 Apr, [facility] [place] [facility] [address] [id number] [place] [address]- 5049 Apr, [facility] [place] [facility] [address] [id number] [place] [address]- 7150 Apr, [facility] [place] [facility] [address] [id number] [place] [address]- 8569 Apr, [facility] [place] [facility] [address] [id number] [place] [address]- 7770 Apr, [facility] [place] [facility] [address] [id number] [place] [address]- 1906 Apr, [facility] [place] [facility] [address] [id number] [place] [address]- 8367 Apr, [facility] [place] [facility] [address] [id number] [place] [address]- 0227 Apr, [facility] [place] [facility] [address] [id number], [place] [address]- 1346 Apr, [facility] [place] [facility] [address] [id number], [place] [address]- 6546 Apr, [facility] [place] [facility] [address] [id number] [place] [address]- 0261 Apr, [facility] [place] [facility] [address] [id number] [place] [address]- 9170 Apr, [facility] [place] [facility] [address] [id number] [place] [address]- 4284 Mar, [facility] [place] [facility] [address] [id number] [place] [address]- 4735 30 Mar, 2012 [facility] [address] [id number] [place] [address]- 6586 30 Mar, 2012 [facility] [address] [id number] [place] 3786 30 Mar, 2012 [facility] [address] [id number] [place] [address]- 0779 18 Mar, 2012 [facility] [address] [id number] [place] [address]- 7767 18 Mar, 2012 [facility] [address] [id number] [place] 8046 18 Mar, 2013 [facility] [address] [id number] [place] [address]- 4406 18 Mar, 2013 [facility] [address] [id number] [place] [address]- 5125 17 Mar, 2013 [facility] [address] [id number] [place] [address]- 1317 17 Mar, 2013 [facility] [address] [id number] [place] [address]- 7200 05 Mar, 2013 [facility] [address] [id number] [place] [address]- 3180 05 Mar, 2013 [facility] [address] [id number] [place] [address]- 0561 04 Mar, 2013 [facility] [place] [facility] [address] [id number] [place] [address]- 0068 04 Mar, 2013 [facility] [place] [facility] [address] [id number] [place] [address]- 6656 04 Mar, 2013 [facility] [place] [facility] [address] [id number] [place] [address]- 2018 04 Mar, 2013 [facility] [place] [facility] [address] [id number] [place] [address]- 3178 02 Mar, 2013 [facility] [place] [facility] [address] [id number] [place] [address]- 3251 Mar, [facility] [place] [facility] [address] [id number] [place] [address]- 6509 Jan, [facility] [place] [facility] [address] [id number] [place] [address]- 6403 Jan, [facility] [place] [facility] [address] [id number] [place] [address]- 6366 Jan, [facility] [place] [facility] [address] [id number] [place] [address]- 7125 Jan, [facility] [place] [facility] [address] [id number] [place] [address]- 1906 Nov, [facility] [place] [facility] [address] [id number] [place] [address]- 8398 Nov, [facility] [place] [facility] [address] [id number] [place] [address]- 0403 Nov, [facility] [place] [facility] [address] [id number] [place] [address]- 3941 Nov, [facility] [place] [facility] [address] [id number] [place] [address]- 3571 Oct, [facility] [place] [facility] [address] [id number] [place] [address]- 0931 Oct, [facility] [place] [facility] [address] [id number] [place] [address]- 8923 Oct, [facility] [place] [facility] [address] [id number] [place] [address]- 5112 Oct, [facility] [place] [facility] [address] [id number] [place] [address]- 7207 Sep, [facility] [place] [facility] [address] [id number] [place] [address]- 4654 Sep, [facility] [place] [facility] [address] [id number] [place] [address]- 4926 Sep, [facility] [address] [id number] [place] [address]- 3435 Sep, [facility] [place] [facility] [address] [id number] [place] [address]- 5850 Sep, [facility] [place] [facility] [address] [id number] [place] [address]- 0890 Sep, [facility] [place] [facility] [address] [id number] [place] [address]- 3275 Sep, [facility] [place] [facility] [address] [id number] [place] [address]- 9190 Sep, [facility] [place] [facility] [address] [id number] [place] [address]- 1835 Sep, [facility] [place] [facility] [address] [id number] [place] [address]- 0663 Aug, [facility] [place] [facility] [address] [id number] [place] [address]- 6410 Aug, [facility] [place] [facility] [address] [id number] [place] [address]- 0497 Aug, [facility] [place] [facility] [address] [id number] [place] [address]- 2068 Aug, [facility] [place] [facility] [address] [id number] [place] [address]- 8276 July, [facility] [place] [facility] [address] [id number] [place] [address]- 7970 July, [facility] [place] [facility] [address] [id number] [place] [address]- 6452 July, [facility] [place] [facility] [address] [id number] [place] [address]- 6266 July, [facility] [place] [facility] [address] [id number] [place] [address] July, [facility] [place] [facility] [address] [id number], [place] [address] July, [facility] [address] [id number] [address] July, [facility] [id number] [address] Jun, [facility] [id number], [place] [address] May, [facility] [id number], [place] [address] May, [facility] [id number], [place] [address] May, [facility] [id number], [place] [address] May, [facility] [id number], [place] [address] May, [facility] [address] [id number] [address] May, [facility] [address], [place] [address] May, [facility] [id number], [place] [address] May, IMMUNIZATIONS No Known Immunizations SOCIAL HISTORY [...]
--- OUTSIDE RECORDS SUMMARY | 2017-12-18 20:10 | XMS REPORT ---
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 Active 014480148 Problem Renal failure N19 Active 02956993 Problem Diabetes type 2, controlled E11.9 Active 07511544 Problem Amput below knee, unilat S88.119A Active 62791961 Problem Neuropathy G62.9 Active 884384484 ALLERGIES Substance Reaction Event Type Date Status All Tape Unknown Non Drug Allergy Apr, Active SOCIAL HISTORY No smoking Hx information available PLAN OF CARE VITAL SIGNS Height 64 in 2016-04-19 Weight 310 lbs 2016-04-19 Temperature 98.0 degrees Fahrenheit 2016-04-19 Heart Rate 80 bpm 2016-04-19 Respiratory Rate 24 2016-04-19 BMI 53.21 kg/m2 2016-04-19 Blood pressure systolic 100 mmHg 2016-04-19 Blood pressure diastolic 74 mmHg 2016-04-19 MEDICATIONS Medication Instructions Dosage Frequency Start Date End Date Duration Status Nystatin 895745 UNIT/GM Externally Twice a day 1 to affected area 12h 16 Mar, 2015 Active Naproxen 375 MG Orally Twice a day 1 tablet 12h Dec, Active Fluticasone Propionate 50 MCG/ACT inhale 1 spray (50 mcg) in each nostril by intranasal route once daily Active Amlodipine Besylate 10 mg 1 tablet 24h 30 Active Guaifenesin 400 MG Orally 4 times a day 1 tablet as needed 6h Apr, Active Furosemide 40 MG TAKE ONE (1) TABLET BY MOUTH DAILY 30 Active Lantus SoloStar 100 UNIT/ML INJECT 30 UNITS SUBCUTANEOUSLY EVERY DAY DAILY AT BEDTIME 50 Active True Metrix Blood Glucose Test - USE TO TEST BLOOD GLUCOSE LEVELS TWICE DAILY 25 Active Amoxicillin 500 MG Orally every 12 hrs 1 capsule 12h Apr, Apr, 10 day(s) Active Crestor 20 MG TAKE ONE TABLET BY MOUTH EVERY DAY 30 Active Isosorbide Mononitrate CR 30 MG 1 tablet 24h 30 Active Glucagon Emergency 1 mg 30 Jul, 2013 Active Aspirin 81 mg take 1 tablet (81 mg) by oral route once daily May, Active Humalog KwikPen 100 UNIT/ML Subcutaneous before meals per sliding scale May, Active Loratadine 10 MG TAKE ONE TABLET BY MOUTH DAILY AT BEDTIME 30 Active HydrOXYzine HCl 25 MG TAKE ONE TABLET BY MOUTH FOUR TIMES DAILY NEEDED FOR ANXIETY 23 Active Renvela 800 MG 2tablet with breakfast and dinner and 1 tablet with lunch Active Wheelchair 1 as directed Sep, Active Singulair 10 MG take 1 tablet (10 mg) by oral route once daily in the evening Active Metoprolol Tartrate 100 MG TAKE ONE TABLET BY MOUTH TWICE DAILY - TAKE WITH MEALS 30 Active [place] 10-325 MG Orally every 6 hrs take 1 tablet by oral route every 6 hours as needed for pain 6h May, 30 days Active Montelukast Sodium 10 MG TAKE ONE TABLET BY MOUTH ONCE DAILY IN THE EVENING 30 Active Oxygen 5 as directed July, Active Gabapentin 300 MG Orally Three times a day 1 capsule 8h Active Dialyvite Orally Once a day 1 tablet 24h Active Mupirocin 2 % APPLY TO AFFECTED AREA TWICE DAILY 5 Active RESULTS No Results PROCEDURES Procedure Date Ordered Related Diagnosis Body Site [facility] VISIT ESTABLISHED PATIENT Apr 19, 2016 Office Visit, Est Pt., Level 3 Apr 19, 2016 IMMUNIZATIONS No Known Immunizations
--- OUTSIDE RECORDS SUMMARY | 2017-12-18 20:10 | XMS REPORT ---
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
--- OUTSIDE RECORDS SUMMARY | 2017-12-18 20:11 | XMS REPORT ---
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 Name Role Phone MCKENNA HEBERT Unavailable PROBLEMS Type Condition ICD9-CM Code TIB97-DU Code Onset Dates Condition Status SNOMED Code Problem Diabetes type 2, controlled E11.9 Active 30387879 Problem Neuropathy G62.9 Active 546959000 Problem Renal failure N19 Active 35265503 Problem Cellulitis of right lower extremity L03.115 Active 955882778 Problem Angina pectoris I20.9 Active 653270548 Problem Seasonal allergic rhinitis due to other allergic trigger J30.89 Active 126534448 Problem Intra-dialytic hypotension I95.3 Active 020394093 Problem Amput below knee, unilat S88.119A Active 39560521 Problem Chronic congestive heart failure, unspecified heart failure type I50.9 Active 70410583 Problem Chronic congestive heart failure, unspecified congestive heart failure type I50.9 Active 38522129 ALLERGIES No Information ENCOUNTERS Encounter Location Date Diagnosis [facility] [address] [address] Jun, [facility] [address] [address] 4303 May, [facility] [id number] [place] [address] 39655- 8868 May, [facility] [id number] [place] [address] 36115- 8291 May, [facility] [id number] [place] [address] 20026- 6753 May, Chronic congestive heart failure, unspecified congestive heart failure type I50.9 [facility] [id number] [place] [address] 12331- 3722 May, Diabetes type 2, controlled E11.9 ; BMI 50.0-59.9, adult Z68.43 ; Chronic congestive heart failure, unspecified heart failure type I50.9 ; Angina pectoris I20.9 ; Seasonal allergic rhinitis due to other allergic trigger J30.89 and Renal failure N19 [facility] [address] [address] May, [facility] [id number] [place] [address] 02230- 1024 May, [facility] [id number] [place] [address] 74330- 3988 May, [place] [id number] [place] [address] 64917- 4728 May, [facility] [facility] [id number] [place] [address] 44973- 4094 May, [facility] [id number] [place] [address] 59842- 0336 Apr, BMI 50.0-59.9, adult Z68.43 [facility] [id number] [place] [address] 33993- 4787 Apr, BMI 50.0-59.9, adult Z68.43 ; Post-procedural fever R50.82 and Bronchitis J40 [place] [facility] [id number] [place] [address] 18415- 8810 Apr, Chronic congestive heart failure, unspecified congestive heart failure type I50.9 [facility] [id number] [place] [address] 67702- 9720 Jan, [facility] [id number] [place] [address] 48004- 8945 Jan, Diabetes type 2, controlled E11.9 [facility] [id number] [place] [address] 27069- 0252 Jan, Neuropathy G62.9 [facility] [address] [facility] [id number] [place] [address]- 7145 16 Jan, 2017 [facility] [address] [facility] [id number] [place] [address]- 6754 15 Jan, 2017 [facility] [address] [facility] [id number] [place] [address]- 3139 Jan, [facility] [address] [facility] [id number] [place] [address]- 2884 Jan, [facility] [address] [facility] [id number] [place] [address]- 6759 Jan, [facility] [address] [facility] [id number] [place] [address]- 0984 Dec, [facility] [address] [facility] [id number] [address]- 8356 Dec, [facility] [address] [facility] [id number] [address]- 7395 Dec, Diabetes type 2, controlled E11.9 [facility] [address] [facility] [id number] [address]- 5102 Dec, [facility] [address] [facility] [id number] [address]- 4148 Dec, [facility] [address] [facility] [id number] [address]- 5090 Dec, Chronic congestive heart failure, unspecified congestive heart failure type I50.9 [facility] [address] [facility] [id number] [place] [address]- 8932 Dec, [facility] [address] [facility] [id number] [address]- 2476 Dec, [facility] [address] [facility] [id number] [place] [address]- 5139 Nov, Chronic congestive heart failure, unspecified congestive heart failure type I50.9 [facility] [address] [facility] [id number] [place] [address]- 7862 Nov, Chronic congestive heart failure, unspecified congestive heart failure type I50.9 [facility] [address] [address]- 7334 Nov, [facility] [address] [address]- 9157 Oct, [facility] [address] [address]- 0895 Oct, [facility] [address] [address]- 7619 Oct, Chronic congestive heart failure, unspecified congestive heart failure type I50.9 [facility] [address] [address]- 2322 Oct, [facility] [address] [address]- 6556 Oct, Pneumonia of both lungs due to infectious organism, unspecified part of lung J18.9 [facility] [address] [address]- 5042 Oct, [facility] [address] [address]- 3392 Oct, Diabetes type 2, controlled E11.9 [facility] [address] [address]- 8374 Oct, Diabetes type 2, controlled E11.9 [facility] [address] [address]- 9681 Sep, [facility] [address] [address]- 4831 Sep, Neuropathy G62.9 [facility] [address] [address]- 9766 Aug, Intra-dialytic hypotension I95.3 [facility] [address] [address]- 3685 July, [facility] [address] [id number] [place] [address] 2546 July, [facility] [address] [facility] [id number] [place] [address]- 2546 July, [facility] [address] [address]- 5986 July, Amput below knee, unilat S88.119A [facility] [address] [id number] [place] [address]- 9476 May, [facility] [address] [facility] [id number] [place] [address]- 9816 May, Neuropathy G62.9 [facility] [address] [address]- 3026 May, [facility] [address] [address]- 7746 May, [facility] [id number] 8659 May, [facility] [address] [address]- 3926 May, [facility] [address] 0866 May, Neuropathy G62.9 [facility] [address] [address]- 8046 Apr, [facility] [address] [address]- 4872 Apr, [facility] [address]- 4356 Apr, Diabetes type 2, controlled E11.9 and Renal failure N19 [facility] [address] [facility] [id number] [place]8446 Apr, [facility] [address] [address]- 7238 Apr, [facility] [id number] [place] [address], [place] [address]- 4894 Mar, [facility] [id number] [place] [address], [place] [address]- 3899 Mar, [facility] [id number] [place] [address], [place] [address]- 3534 Mar, [facility] [id number] [place] [address], [place] [address]- 9799 Mar, [facility] [id number] [place] [address], [place] [address]- 9886 Mar, [facility] [id number] [place] [address], [place] [address]- 0809 Jan, Localized edema R60.0 [facility] [id number] [place] [address] 07480- 7948 Jan, [facility] [id number] [place] [address] 11051- 5974 Jan, [facility] [id number] [place] [address] 63012- 9282 Jan, [facility] [address] [address]- 0911 Jan, [facility] [id number] [place] [address] 26234- 2036 Jan, [facility] [address] [address]- 0914 Jan, [facility] [id number] [place] [address] 54725- 0146 Dec, Diabetes type 2, controlled E11.9 and Chronic nonintractable headache, unspecified headache type R51 [facility] [id number] [place] [address] 05972- 3320 Dec, [facility] [address] [address]- 7700 Dec, [facility] [id number] [place] [address] 38229- 0263 Nov, [facility] [id number] [address]- 4057 Nov, [facility] [id number] [place] [address] 13070- 9856 Oct, [facility] [id number] [place] [address] 86234- 4774 Oct, Migraine without status migrainosus, not intractable, unspecified migraine type G43.909 [facility] [id number] [place] [address] 30996- 4925 Oct, [facility] [id number] [place] [address] 86493- 6768 Sep, Amput below knee, unilat S88.119A and Neuropathy G62.9 [facility] [address] [address]- 7387 Sep, [facility] [id number] [place] [address] 61784- 9201 Sep, [facility] [address] [address]- 5794 Sep, [facility] [id number] [place] [address] 65409- 1903 Aug, [facility] [address] [address]- 2902 Aug, [facility] [id number] [place] [address] 03935- 0860 Aug, Diabetes type 2, controlled E11.9 [facility] [address] [address]- 1682 Aug, [facility] [address] [facility] [id number] [place] [address]- 4511 Jun, Diabetes type 2, controlled E11.9 and Neuropathy G62.9 [facility] [address] [facility] [id number] [place] [address]- 6119 14 Jul, 2015 [facility] [address] [facility] [id number] [place] [address]- 3005 Jun, [facility] [address] [facility] [id number] [place] [address]- 4073 Jun, [facility] [address] [facility] [id number] [place] [address]- 3175 Jun, [facility] [address] [facility] [id number] [place] [address]- 5318 May, [facility] [address] [facility] [id number] [place] [address]- 0310 May, Diabetes type 2, controlled E11.9 [facility] [address] [facility] [id number] [place] [address]- 1757 May, [facility] [address] [facility] [id number] [place] [address]- 6050 May, [facility] [address] [address]- 9731 May, [facility] [address] [address]- 2423 May, [facility] [address] [facility] [id number] [place] [address]- 9503 17 May, 2015 [facility] [address] [facility] [id number] [place] [address]- 5839 16 May, 2015 [facility] [address] [facility] [id number] [place] [address]- 8344 16 May, 2015 [facility] [address] [address]- 3865 15 May, 2015 COPD (chronic obstructive pulmonary disease) J44.9 [facility] [address] [address]- 8275 May, [facility] [address] [address]- 2270 May, [facility] [address] [address]- 4263 May, [facility] [address] [address]- 5442 May, [facility] [address] [address]- 9251 May, [facility] [address] [address]- 6861 May, Renal failure N19 and Pneumonia, organism unspecified, unspecified laterality, unspecified part of lung J18.9 [facility] [address] [address]- 2336 Apr, [facility] [address] [address]- 2883 Apr, [facility] [address] [address]- 1780 Apr, [facility] [id number] [address]- 5550 Apr, Diabetes mellitus 250.00 [facility] [address] [address]- 6113 Apr, [facility] [address] [address]- 9893 Apr, [facility] [address] [address]- 6619 Apr, [facility] [id number] [address]- 8974 Apr, [facility] [place] [facility] [address] [id number] [place] 7063 31 Mar, 2015 [facility] [place] [facility] [address] [id number] [place] 6739 28 Mar, 2015 [facility] [place] [facility] [address] [id number] [place] 3719 23 Mar, 2015 [facility] [place] [facility] [id number] [place] [address], [place]- 8684 16 Mar, 2014 Renal failure N19 [facility] [place] [facility] [address] [id number] [place] [address]- 4386 14 Mar, 2015 [facility] [place] [facility] [address] [id number] [place] [address], [place] [address]- 6674 07 Mar, 2015 [facility] [place] [facility] [address] [facility] [id number] [place] [address]- 6206 04 Mar, 2015 [facility] [place] [facility] [address] [id number] [place] [address]- 9713 24 Jan, 2015 [facility] [place] [facility] [address] [id number] [place] [address]- 4505 18 Jan, 2015 [facility] [place] [facility] [address] [facility] [id number] [place] [address]- 1769 17 Jan, 2015 [facility] [place] [facility] [address] [facility] [id number] [place] [address]- 1024 Jan, [facility] [place] [facility] [address] [id number] [place] [address]- 7151 Dec, [facility] [place] [facility] [address] [id number] [place] [address]- 3484 Dec, [facility] [place] [facility] [address] [id number] [place] [address]- 0043 Dec, [facility] [place] [facility] [address] [id number] [place] 6725 Nov, [facility] [place] [facility] [address] [id number] [place] [address]- 7530 Nov, [facility] [address] [facility] [id number] [place] [address]- 9094 Nov, [facility] [address] [facility] [id number] [place] [address]- 0282 Oct, [facility] [address] [facility] [id number] [place] [address]- 5670 Oct, [facility] [address] [facility] [id number] [place] [address]- 4333 Oct, Renal failure 586 and Obesity 278.00 [facility] [address] [facility] [id number] [place] [address] 37804- 8895 Oct, [facility] [address] [address]- 3450 Oct, [facility] [address] [address]- 6493 Oct, [facility] [address] [id number] [address]- 6656 Sep, [facility] [address] [address]- 9036 Sep, [facility] [address] [id number] [address]- 7581 Sep, Diabetes mellitus 250.00 and Congestive heart failure, unspecified 428.0 [facility] [address] [id number] [address]- 6476 Aug, [facility] [address] [facility] [id number] [place] [address]- 6977 Aug, [facility] [id number] [address]- 2132 Aug, [facility] [id number] [address]- 9263 July, [facility] [address] [address]- 8903 July, [facility] [address] [id number] [place] [address]- 4079 July, Heart murmur, systolic 785.2 [facility] [address] [id number] [place] [address] 2546 July, [facility] [address] [id number] [place] [address]- 4376 July, [facility] [address] [id number] [place] [address]- 7231 Jun, [facility] [address] [id number] [place] [address]- 2524 Jun, [facility] [address] [id number] [place] [address]- 5290 May, [facility] [address] [id number] [place] [address]- 0253 May, [facility] [address] [id number] [place] [address]- 8606 May, [facility] [address] [id number] [place] [address]- 2899 May, [facility] [address] [id number] [place] [address]- 2386 16 May, 2014 [facility] [address] [id number] [place] [address]- 9662 16 May, 2014 [facility] [address] [id number] [place] [address] May, [facility] [address] [id number] [place] [address] May, [facility] [address] [id number] [place] [address] May, [facility] [address] [id number] [place] [address] May, [facility] [place] [facility] [address] [id number] [place] [address] May, 2014 [facility] [place] [facility] [address] [facility] [id number] [place] [address] May, 2014 [facility] [place] [facility] [address] [facility] [id number] [place] [address] May, 2014 [facility] [place] [facility] [address] [facility] [id number] [place] [address] May, 2014 [facility] [place] [facility] [address] [facility] [id number] [place] [address] May, 2014 [facility] [place] [facility] [address] [facility] [id number] [place] [address] May, 2014 [facility] [place] [facility] [address] [id number] [address] May, 2014 [facility] [place] [facility] [address] [facility] [id number] [place] [address] May, 2014 [facility] [place] [facility] [address] [facility] [id number] [place] [address] May, 2014 [facility] [place] [facility] [address] [facility] [id number] [place] [address] May, 2014 [facility] [place] [facility] [address] [facility] [id number] [place] [address] 16 May, 2014 [facility] [place] [facility] [address] [facility] [id number] [place] [address] 16 May, 2014 [facility] [place] [facility] [address] [facility] [id number] [place] [address]- [address] May, 2014 [facility] [place] [facility] [address] [facility] [id number] [place] [address] May, 2014 [facility] [place] [facility] [address] [facility] [id number] [place] [address] May, [facility] [place] [facility] [address] [id number] [place] [address] May, [facility] [place] [facility] [address] [id number] [place] [address] Apr, [facility] [place] [facility] [address] [id number] [place] [address] Apr, [facility] [place] [facility] [address] [id number] [place] [address] Apr, [facility] [place] [facility] [address] [id number] [place] [address] Apr, [facility] [place] [facility] [address] [id number] [place] [address] Apr, [facility] [place] [facility] [address] [id number] [place] [address] Apr, [facility] [place] [facility] [address] [id number] [place] [address]- [address] Apr, [facility] [place] [facility] [address] [id number] [place] [address] Apr, [facility] [place] [facility] [address] [id number] [place] [address] Mar, [facility] [place] [facility] [address] [id number] [place] [address] Mar, [facility] [place] [facility] [address] [id number] [place] [address] Mar, [facility] [place] [facility] [address] [id number] [place] [address] Mar, [facility] [place] [facility] [address] [id number] [place] [address] Mar, [facility] [place] [facility] [address] [id number] [place] [address] Mar, [facility] [place] [facility] [address] [id number] [place] [address] Mar, [facility] [place] [facility] [address] [id number] [place] [address] Mar, [facility] [place] [facility] [address] [id number] [place] [address] Mar, [facility] [place] [facility] [address] [id number] [place] [address] Mar, [facility] [place] [facility] [address] [id number] [place] [address]- [address] Mar, [facility] [place] [facility] [address] [id number] [place] [address] 24[address] Mar, [facility] [place] [facility] [address] [id number] [place] [address] 5082 Mar, [facility] [place] [facility] [address] [id number] [place] [address] 9537 Mar, [facility] [place] [facility] [address] [id number] [place] [address] 4397 Mar, [facility] [place] [facility] [address] [id number] [place] [address] 1556 Mar, [facility] [place] [facility] [address] [id number] [place] [address]- 5754 Mar, [facility] [place] [facility] [address] [id number] [place] [address] 6943 Mar, [facility] [place] [facility] [address] [id number] [place] [address] 8118 Mar, [facility] [place] [facility] [address] [id number] [place] [address] 5763 Mar, [facility] [place] [facility] [address] [id number] [place] [address]- 6785 Mar, [facility] [place] [facility] [address] [id number] [place] [address] 5096 Mar, [facility] [place] [facility] [address] [id number] [place] [address] 6243 Jan, [facility] [place] [facility] [address] [id number] [place] [address]- 3743 Jan, [facility] [place] [facility] [address] [id number] [place] [address]- 8674 Jan, [facility] [place] [facility] [address] [id number] [place] [address]- 0043 Jan, [facility] [place] [facility] [address] [id number] [place] [address]- 2316 Jan, [facility] [place] [facility] [address] [id number] [place] [address]- 3790 Jan, [facility] [place] [facility] [address] [id number] [place] [address]- 5151 Jan, [facility] [place] [facility] [address] [id number] [place] [address]- 7894 Jan, [facility] [place] [facility] [address] [id number] [place] [address]- 0098 Jan, [facility] [place] [facility] [address] [id number] [place] [address]- 1531 Jan, [facility] [place] [facility] [address] [id number] [place] [address] 6642 Jan, [facility] [place] [facility] [address] [id number] [place] [address]- 2657 Jan, [facility] [place] [facility] [address] [id number] [place] [address]- 3701 Jan, [facility] [place] [facility] [address] [id number] [place] [address]- 9584 Jan, [facility] [place] [facility] [address] [id number] [place] [address]- 8082 Jan, [facility] [place] [facility] [address] [id number] [place] [address]- 7376 Jan, [facility] [place] [facility] [address] [id number] [place] [address]- 1683 Jan, [facility] [place] [facility] [address] [id number] [place] [address]- 2633 Jan, [facility] [place] [facility] [address] [id number] [place] [address]- 5596 Jan, [facility] [place] [facility] [address] [id number] [place] [address]- 9760 Jan, [facility] [place] [facility] [address] [id number] [place] [address]- 9230 Dec, [facility] [place] [facility] [address] [id number] [place] [address]- 3508 Dec, [facility] [place] [facility] [address] [id number] [place] [address]- 4734 Dec, [facility] [place] [facility] [address] [id number] [place] [address]- 3049 Dec, [facility] [place] [facility] [address] [id number] [place] [address]- 2921 Dec, [facility] [place] [facility] [address] [id number] [place] [address]- 0316 Dec, [facility] [place] [facility] [address] [id number] [place] [address]- 5719 Dec, [facility] [place] [facility] [address] [id number] [place] [address]- 0206 Dec, [facility] [place] [facility] [address] [id number] [place] [address]- 1319 Dec, [facility] [place] [facility] [address] [id number] [place] [address]- 8196 Dec, [facility] [place] [facility] [address] [id number] [place] [address]- 0837 Dec, [facility] [place] [facility] [address] [id number] [place] [address]- 2976 03 Dec, 2013 [facility] [place] [facility] [address] [id number] [place] [address]- 1393 Dec, [facility] [place] [facility] [address] [id number] [place] [address]- 1698 Dec, [facility] [place] [facility] [address] [id number] [place] [address]- 6930 Dec, [facility] [place] [facility] [address] [id number] [place] [address]- 4063 22 Nov, 2013 [facility] [place] [facility] [address] [id number] [place] [address]- 3022 22 Nov, 2013 [facility] [place] [facility] [address] [id number] [place] [address]- 3772 19 Nov, 2013 [facility] [place] [facility] [address] [id number] [place] [address]- 3078 19 Nov, 2013 [facility] [place] [facility] [address] [id number] [place] [address]- 4147 13 Nov, 2013 [facility] [place] [facility] [address] [id number] [place] [address]- 5061 13 Nov, 2013 [facility] [place] [facility] [address] [id number] [place] [address]- 5326 10 Nov, 2013 [facility] [place] [facility] [address] [id number] [place] [address]- 3329 10 Nov, 2013 [facility] [place] [facility] [address] [id number] [place] [address]- 2545 08 Sep, 2013 [facility] [place] [facility] [address] [id number] [place] [address]- 2545 05 Sep, 2013 [facility] [place] [facility] [address] [id number] [place] [address]- 1949 05 Sep, 2013 [facility] [place] [facility] [address] [id number] [place] [address]- 4269 03 Sep, 2013 [facility] [place] [facility] [address] [id number] [place] [address]- 5921 Nov, [facility] [place] [facility] [address] [id number] [place] [address]- 8762 Oct, [facility] [place] [facility] [address] [id number] [place] [address]- 8196 Oct, [facility] [place] [facility] [address] [id number] [place] [address]- 6865 Oct, [facility] [place] [facility] [address] [id number] [place] [address]- 7813 Oct, [facility] [place] [facility] [address] [id number] [place] [address]- 2416 Oct, [facility] [place] [facility] [address] [id number] [place] [address]- 8139 Sep, [facility] [place] [facility] [address] [id number] [place] [address]- 8409 Sep, [facility] [place] [facility] [address] [id number] [place] [address]- 6803 Sep, [facility] [place] [facility] [address] [id number] [place] [address]- 7454 Sep, [facility] [place] [facility] [address] [id number] [place] [address]- 9478 Aug, [facility] [place] [facility] [address] [id number] [place] [address]- 5229 Aug, [facility] [place] [facility] [address] [id number] [place] [address]- 0643 Aug, [facility] [place] [facility] [address] [id number] [place] [address]- 2987 Aug, [facility] [place] [facility] [address] [id number] [place] [address]- 9421 Aug, [facility] [place] [facility] [address] [id number] [place] [address]- 2228 Aug, [facility] [place] [facility] [address] [id number] [place] [address]- 5132 Aug, [facility] [place] [facility] [address] [id number] [place] [address]- 7106 Aug, [facility] [place] [facility] [address] [id number] [place] [address]- 6960 Aug, [facility] [place] [facility] [address] [id number] [place] [address]- 2401 Aug, [facility] [place] [facility] [address] [id number] [place] [address]- 8598 Aug, [facility] [place] [facility] [address] [id number] [place] [address]- 8850 Aug, [facility] [place] [facility] [address] [id number] [place] [address]- 4252 Aug, [facility] [place] [facility] [address] [id number] [place] [address]- 6377 Aug, [facility] [place] [facility] [address] [id number] [place] [address]- 2930 Aug, [facility] [place] [facility] [address] [id number] [place] [address]- 7332 Aug, [facility] [place] [facility] [address] [id number] [place] [address]- 0117 Aug, [facility] [place] [facility] [address] [id number] [place] [address]- 6083 Aug, [facility] [place] [facility] [address] [id number] [place] [address]- 2571 Aug, [facility] [place] [facility] [address] [id number] [place] [address]- 0345 Aug, [facility] [place] [facility] [address] [id number] [place] [address]- 8210 Aug, [facility] [place] [facility] [address] [id number] [place] [address]- 3891 Aug, [facility] [address] [id number] [place] [address]- 0406 Aug, [facility] [place] [facility] [address] [id number] [place] [address]- 4435 Aug, [facility] [address] [id number] [place] [address]- 5584 July, [facility] [place] [facility] [address] [id number] [place] [address]- 7202 July, [facility] [address] [id number] [place] [address]- 2650 July, [facility] [place] [facility] [address] [id number] [place] [address]- 8055 July, [facility] [address] [id number] [place] [address]- 0857 July, [facility] [address] [id number] [place] [address]- 6747 July, [facility] [place] [facility] [address] [id number] [place] [address]- 7240 Jun, [facility] [address] [id number] [place] [address]- 4800 Jun, [facility] [place] [facility] [address] [id number] [place] [address]- 6306 Jun, [facility] [place] [facility] [address] [id number] [place] [address]- 1948 Jun, [facility] [place] [facility] [address] [id number] [place] [address]- 9993 Jun, [facility] [place] [facility] [address] [id number] [place] [address]- 5351 Jun, [facility] [place] [facility] [address] [id number] [place] [address]- 2375 Jun, [facility] [place] [facility] [address] [id number] [place] Jun, [facility] [place] [facility] [address] [id number] [place] [address]- 1834 Jun, [facility] [place] [facility] [address] [id number] [place] [address]- 8018 Jun, [facility] [place] [facility] [address] [id number] [place] [address]- 3965 Jun, [facility] [place] [facility] [address] [id number] [place] [address]- 7690 Jun, [facility] [place] [facility] [address] [id number] [place] [address]- 6502 Jun, [facility] [place] [facility] [address] [id number] [place] [address]- 3619 Jun, [facility] [place] [facility] [address] [id number] [place] [address]- 1983 Jun, [facility] [place] [facility] [address] [id number] [place] [address]- 2051 May, [facility] [place] [facility] [address] [id number] [place] [address]- 4350 May, [facility] [place] [facility] [address] [id number] [place] [address]- 7012 May, [facility] [place] [facility] [address] [id number] [place] [address]- 2198 May, [facility] [place] [facility] [address] [id number] [place] [address]- 8545 May, [facility] [place] [facility] [address] [id number] [place] [address]- 5029 May, [facility] [place] [facility] [address] [id number] [place] [address]- 0638 May, [facility] [place] [facility] [address] [id number] [place] [address]- 9352 May, [facility] [place] [facility] [address] [id number] [place] [address]- 1527 May, [facility] [place] [facility] [address] [id number] [place] 3883 May, [facility] [place] [facility] [address] [id number] [place] [address]- 9837 May, [facility] [place] [facility] [address] [id number] [place] [address]- 5590 May, [facility] [place] [facility] [address] [id number] [place] [address]- 9591 May, [facility] [place] [facility] [address] [id number] [place] [address]- 0275 May, [facility] [place] [facility] [address] [id number] [place] [address]- 5297 May, [facility] [place] [facility] [address] [id number] [place] [address]- 2067 May, [facility] [place] [facility] [address] [id number] [place] [address]- 4133 May, [facility] [place] [facility] [address] [id number] [place] [address]- 5745 Apr, [facility] [place] [facility] [address] [id number] [place] [address]- 1776 Apr, [facility] [place] [facility] [address] [id number] [place] [address]- 1821 Apr, [facility] [place] [facility] [address] [id number] [place] [address]- 5221 Apr, [facility] [place] [facility] [address] [id number] [place] [address]- 4881 Apr, [facility] [place] [facility] [address] [id number] [place] [address]- 2921 Apr, [facility] [place] [facility] [address] [id number] [place] [address]- 2328 Apr, [facility] [place] [facility] [address] [id number] [place] [address]- 9609 Apr, [facility] [place] [facility] [address] [id number] [place] [address]- 4684 Apr, [facility] [place] [facility] [address] [id number] [place] [address]- 8266 Apr, [facility] [place] [facility] [address] [id number] [place] [address]- 8513 Apr, [facility] [place] [facility] [address] [id number] [place] [address]- 5237 Apr, [facility] [place] [facility] [address] [id number] [place] [address]- 2145 Apr, [facility] [place] [facility] [address] [id number] [place] [address]- 5275 Apr, [facility] [place] [facility] [address] [id number] [place] [address]- 8654 Apr, [facility] [place] [facility] [address] [id number] [place] [address]- 4563 Apr, [facility] [place] [facility] [address] [id number] [place] [address]- 6078 Mar, [facility] [place] [facility] [address] [id number] [place] [address]- 8671 Mar, [facility] [place] [facility] [address] [id number] [place] [address]- 7446 Mar, [facility] [place] [facility] [address] [id number] [place] [address]- 6087 Mar, [facility] [place] [facility] [address] [id number] [place] [address]- 9691 18 Mar, 2013 [facility] [place] [facility] [address] [id number] [place] [address]- 2256 18 Mar, 2013 [facility] [address] [id number] [place] [address]- 2504 18 Mar, 2013 [facility] [place] [facility] [address] [id number] [place] [address]- 7795 Mar, [facility] [place] [facility] [address] [facility] [id number] [place] [address]- 7607 Mar, [facility] [place] [facility] [address] [id number] [place] [address]- 3553 17 Mar, 2013 [facility] [address] [id number] [place] [address]- 1828 Mar, [facility] [place] [facility] [address] [id number] [place] [address]- 2842 05 Mar, 2013 [facility] [place] [facility] [address] [id number] [place] [address]- 9374 Mar, [facility] [place] [facility] [address] [id number] [place] [address]- 1640 Mar, [facility] [place] [facility] [address] [id number] [place] [address]- 6388 Mar, [facility] [place] [facility] [address] [id number] [place] [address]- 6963 Mar, [facility] [place] [facility] [address] [id number] [place] [address]- 6409 Mar, [facility] [place] [facility] [address] [id number] [place] [address]- 0913 Mar, [facility] [place] [facility] [address] [id number] [place] [address]- 9483 Jan, [facility] [place] [facility] [address] [id number] [place] [address]- 4019 Jan, [facility] [place] [facility] [address] [facility] [id number] [place] [address]- 4477 Jan, [facility] [place] [facility] [address] [id number] [place] [address]- 8930 Jan, [facility] [address] [id number] [place] [address]- 3486 27 Nov, 2012 [facility] [address] [id number] [place] [address]- 3376 10 Nov, 2012 [facility] [address] [id number] [place] [address]- 6649 Nov, [facility] [address] [id number] [place] [address]- 9054 Nov, [facility] [address] [id number] [place] [address]- 1567 Oct, [facility] [address] [id number] [place] [address]- 2712 Oct, [facility] [address] [id number] [place] [address]- 7630 Oct, [facility] [address] [id number] [place] [address]- 8141 Oct, [facility] [address] [id number] [place] [address]- 2926 Sep, [facility] [address] [id number] [place] [address]- 6712 Sep, [facility] [place] [facility] [address] [id number] [place] [address]- 9226 Sep, [facility] [address] [id number] [place] [address]- 8050 Sep, [facility] [place] [facility] [address] [id number] [place] [address]- 2304 Sep, [facility] [place] [facility] [address] [id number] [place] [address]- 1938 Sep, [facility] [place] [facility] [address] [id number] [place] [address]- 6507 Sep, [facility] [address] [id number] [place] [address]- 7877 Sep, [facility] [place] [facility] [address] [id number] [place] [address]- 0256 Sep, [facility] [place] [facility] [address] [id number] [place] [address]- 0133 Aug, [facility] [place] [facility] [address] [id number] [place] [address]- 0656 Aug, [facility] [address] [id number] [place] [address]- 2979 Aug, [facility] [place] [facility] [address] [id number] [place] [address]- 6136 Aug, [facility] [address] [id number] [place] [address]- 7326 July, [facility] [address] [id number] [place] [address]- 6863 July, [facility] [place] [facility] [address] [id number] [place] [address]- 9630 July, [facility] [place] [facility] [address] [id number] [place] [address]- 1686 July, [facility] [place] [facility] [address] [id number] [place] [address]- 6126 July, [facility] [place] [facility] [address] [id number] [place] [address] July, [facility] [place] [facility] [address] [id number] [place] [address] July, [facility] [place] [facility] [address] [id number] [place] [address] Jun, [facility] [place] [facility] [address] [id number] [place] [address] May, [facility] [place] [facility] [address] [id number] [place] [address] May, [facility] [address] [facility] [id number] [place] [address] May, [facility] [address] [facility] [id number] [place] [address] May, [facility] [address] [facility] [id number] [place] [address] May, [facility] [address] [id number] [place] [address] May, [facility] [address] [id number] [place] [address] May, [facility] [address] [id number] [place] [address] May, IMMUNIZATIONS No Known Immunizations SOCIAL HISTORY Never Assessed REASON FOR VISIT Controlled Med Refill PLAN OF CARE VITAL SIGNS MEDICATIONS Medication Instructions Dosage Frequency Start Date End Date Duration Status Fountain 10-325 MG Orally every 6 hrs take 1 tablet by oral route every 6 hours as needed for pain 6h Sep, 28 days Active RESULTS No Results PROCEDURES [...]
--- OUTSIDE RECORDS SUMMARY | 2017-12-18 20:11 | XMS REPORT ---
Author Author MCKENNA HEBERT Organization [facility] Address [address] [place] [address] Care Team Providers Care Criminalist Name Role Phone MCKENNA HEBERT Unavailable PROBLEMS Type Condition ICD9-CM Code [id number] Code Onset Dates Condition Status SNOMED Code Problem Cellulitis of right lower extremity L03.115 Active 595373413 Problem Chronic congestive heart failure, unspecified congestive heart failure type I50.9 Active 22960590 Problem Intra-dialytic hypotension I95.3 Active 137634584 Problem Renal failure N19 Active 09682623 Problem Diabetes type 2, controlled E11.9 Active 27885991 Problem Amput below knee, unilat S88.119A Active 54319302 Problem Neuropathy G62.9 Active [id number] ALLERGIES No Information SOCIAL HISTORY Never Assessed PLAN OF CARE VITAL SIGNS MEDICATIONS Medication Instructions Dosage Frequency Start Date End Date Duration Status HydrOXYzine HCl 25 MG Orally 4 times a day TAKE ONE TABLET BY MOUTH FOUR TIMES DAILY NEEDED FOR ANXIETY 6h 30 days Active RESULTS No Results PROCEDURES [...]
--- OUTSIDE RECORDS SUMMARY | 2017-12-18 20:12 | XMS REPORT ---
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 Active 0111088 Problem Chronic congestive heart failure, unspecified heart failure type I50.9 Active 31603493 Problem Chronic congestive heart failure, unspecified congestive heart failure type I50.9 Active 44589810 Problem Intra-dialytic hypotension I95.3 Active 770106329 Problem Angina pectoris I20.9 Active 216079593 Problem Seasonal allergic rhinitis due to other allergic trigger J30.89 Active 506505231 ALLERGIES No Information ENCOUNTERS Encounter Location Date Diagnosis [place] [address], [place] [address] Sep, [facility] [id number] [place] [address] 09887- 8622 Aug, [facility] [id number] [place] [address] 95102- 2507 Aug, 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 [facility] [id number] [place] [address] 42142- 4402 15 Aug, 2017 [place] [address], [place] [address] 0[address] 11 Aug, 2017 Diabetes type 2, controlled E11.9 and Acute pain of right knee M25.561 [facility] [address], [place] [address] 6861 Aug, [facility] [id number] [place] [address] 72508- 5222 July, [facility] [address], [place] [address] 6783 Jun, [facility] [id number] [place] [address] 90149- 3105 Jun, [facility] [id number] [place] [address] 86895- 6425 Jun, Diabetes type 2, controlled E11.9 [facility] [id number] [place] [address] 96856- 0019 Jun, [facility] [id number] [place] [address] 58175- 5747 May, [facility] [id number] [place] [address] 44681- 0264 May, [facility] [address], [place] [address] 4815 May, [facility] [address], [place] [address]- 7236 May, Chronic congestive heart failure, unspecified congestive heart failure type I50.9 [facility] [address], [place] [address]- 4094 May, Diabetes type 2, controlled E11.9 ; BMI 50.0-59.9, adult Z68.43 ; Chronic congestive heart failure, unspecified heart failure type I50.9 ; Angina pectoris I20.9 ; Seasonal allergic rhinitis due to other allergic trigger J30.89 and Renal failure N19 [facility] [id number] [address] May, [facility] [address], [place] [address]- 7188 May, [facility] [address], [place] [address]- 7489 May, [facility] [id number] [place] [address] 78053- 0930 May, [facility] [id number] [place] [address] 14495- 1036 May, [facility] [id number] [place] [address] 23010- 6060 Apr, BMI 50.0-59.9, adult Z68.43 [facility] [id number] [place] [address] 70269- 1956 Apr, BMI 50.0-59.9, adult Z68.43 ; Post-procedural fever R50.82 and Bronchitis J40 [facility] [id number] [place] [address] 51101- 8646 Apr, Chronic congestive heart failure, unspecified congestive heart failure type I50.9 [facility] [id number] [place] [address] 98421- 0101 Jan, [facility] [id number] [place] [address] 65394- 5648 Jan, Diabetes type 2, controlled E11.9 [facility] [address], [place] [address]- 2668 Jan, Neuropathy G62.9 [facility] [id number] [place] [address] 89011- 9329 Jan, [facility] [address], [place] [address]- 4202 Jan, [facility] [id number] [place] [address] 08802- 5227 Jan, [facility] [address], [place] [address]- 3624 Jan, [facility] [id number], [place] [address]- 6071 Jan, [facility] [address] [id number], [place] [address] 0813 Dec, [facility] [address] [facility] [id number], [place] [address]- 7558 Dec, [facility] [address] [facility] [id number], [place] [address]- 3317 Dec, Diabetes type 2, controlled E11.9 [facility] [address] [id number] [place] [address]- 4484 Dec, [facility] [address] [facility] [id number], [place] [address]- 6908 Dec, [facility] [id number], [place] [address]- 2914 Dec, Chronic congestive heart failure, unspecified congestive heart failure type I50.9 [facility] [address] [facility] [id number], [place] [address]- 7516 Dec, [facility] [address] [facility] [id number], [place] [address]- 3376 Dec, [facility] [address] [facility] [id number], [place] [address]- 3524 Nov, Chronic congestive heart failure, unspecified congestive heart failure type I50.9 [facility] [address] [facility] [id number], [place] [address]- 5219 Nov, Chronic congestive heart failure, unspecified congestive heart failure type I50.9 [facility] [address] [facility] [id number] [place] [address]- 7628 Nov, [facility] [address] [facility] [id number], [place] [address]- 9584 Oct, [facility] [address] [facility] [id number], [place] [address]- 6515 Oct, [facility] [address], [place] [address]- 7745 14 Oct, 2016 Chronic congestive heart failure, unspecified congestive heart failure type I50.9 [facility] [address], [place] [address]- 9439 Oct, [facility] [address], [place] [address]- 7354 Oct, Pneumonia of both lungs due to infectious organism, unspecified part of lung J18.9 [facility] [address], [place] [address]- 9030 10 Oct, 2016 [facility] [id number] [place] [address] 55006- 7336 Oct, Diabetes type 2, controlled E11.9 [facility] [address], [place] [address]- 1714 Oct, Diabetes type 2, controlled E11.9 [facility] [address], [place] [address]- 3129 Sep, [facility] [id number] [place] [address] 46783- 5156 Sep, Neuropathy G62.9 [facility] [address], [place] [address]- 6764 Aug, Intra-dialytic hypotension I95.3 [facility] [address], [place] [address]- 8257 July, [facility] [address], [place] [address]- 2542 July, [facility] [id number] [place] [address] 44399- 7307 July, [facility] [address], [place] [address]- 1503 July, Amput below knee, unilat S88.119A [facility] [id number] [place] [address] 73824- 7622 May, [facility] [address] [facility] [id number] [place] [address]- 6277 May, Neuropathy G62.9 [facility] [address] [facility] [id number] [place] [address]- 3196 May, [facility] [address] [facility] [id number] [place] [address]- 4350 May, [facility] [address] [facility] [id number] [place] [address]- 3920 May, [facility] [address] [facility] [id number] [place] [address]- 8233 May, [facility] [id number] [place] [address]- 8712 May, Neuropathy G62.9 [facility] [address] [place] [address]- 9203 Apr, [facility] [address] [facility] [id number] [place] [address]- 9472 Apr, [facility] [address] [place] [address]- 2726 Apr, Diabetes type 2, controlled E11.9 and Renal failure N19 [facility] [id number] [place] [address]3748 Apr, [facility] [id number], [place] [address]- 9252 Apr, [facility] [address] [facility] [id number] [place] [address]- 5381 Mar, [facility] [address] [facility] [id number] [place] 9572 Mar, [facility] [id number] [place] [address]- 4806 Mar, [facility] [address], [place] [address]- 8783 Mar, [facility] [id number] [place] [address] 42292- 0705 Mar, [facility] [id number] [place] [address] 05197- 9362 Jan, Localized edema R60.0 [facility] [id number] [place] [address] 73537- 6145 Jan, [facility] [id number] [place] [address] 67442- 5767 Jan, [facility] [id number] [place] [address] 49322- 2019 Jan, [facility] [id number] [place] [address] 63937- 5077 Jan, [facility] [id number] [place] [address] 17917- 4654 Jan, [facility] [id number] [place] [address] 73609- 8476 Jan, [facility] [id number] [place] [address] 51681- 6851 Dec, Diabetes type 2, controlled E11.9 and Chronic nonintractable headache, unspecified headache type R51 [facility] [id number] [place] [address] 60423- 5285 Dec, [facility] [address], [place] [address]- 6367 Dec, [facility] [id number] [place] [address] 46485- 6960 Nov, [facility] [id number] [place] [address] 97072- 1006 Nov, [facility] [address], [place] [address]- 7553 Oct, [facility] [address], [place] [address]- 0150 Oct, Migraine without status migrainosus, not intractable, unspecified migraine type G43.909 [facility] [id number] [place] [address] 76948- 3266 Oct, [facility] [id number] [place] [address] 70764- 1576 Sep, Amput below knee, unilat S88.119A and Neuropathy G62.9 [facility] [id number] [place] [address] 08564- 7986 Sep, [facility] [id number] [place] [address] 28090- 1036 Sep, [facility] [id number] [place] [address] 32163- 9267 Sep, [facility] [id number] [place] [address] 89373- 5535 Aug, [facility] [id number] [place] [address] 14091- 0021 Aug, [facility] [id number] [place] [address] 69076- 7884 Aug, Diabetes type 2, controlled E11.9 [facility] [id number] [place] [address] 19326- 0896 Aug, [facility] [id number] [place] [address] 27767 2545 Jun, Diabetes type 2, controlled E11.9 and Neuropathy G62.9 [facility] [id number] [place] [address] 42084- 2229 Jun, [facility] [id number] [place] [address] 09130 2546 Jun, [facility] [id number] [place] [address] 43872- 2301 Jun, [facility] [address] [facility] [id number], [place] [address]- 0517 Jun, [facility] [id number] [place] [address] 55421- 8875 May, [facility] [id number] [place] [address] 09580- 5802 May, Diabetes type 2, controlled E11.9 [facility] [id number] [place] [address] 59222- 6101 May, [facility] [id number] [place] [address] 14544- 4130 May, [facility] [id number] [place] [address] 66051- 6271 26 May, 2015 [facility] [id number] [place] [address] 67169- 3114 25 May, 2015 [facility] [id number] [place] [address] 80565- 2293 17 May, 2015 [facility] [id number] [place] [address] 88577- 9832 16 May, 2015 [facility] [address], [place] [address]- 9101 16 May, 2015 [facility] [id number] [place] [address] 58866- 6845 15 May, 2015 COPD (chronic obstructive pulmonary disease) J44.9 [facility] [address], [place] [address]- 6149 15 May, 2015 [facility] [address], [place] [address]- 0643 12 May, 2015 [facility] [address], [place] [address]- 7185 May, [facility] [id number] [place] [address] 50536- 5746 May, [facility] [id number] [place] [address]- 2865 May, [facility] [address], [place] [address]- 9486 May, Renal failure N19 and Pneumonia, organism unspecified, unspecified laterality, unspecified part of lung J18.9 [facility] [address] [place] [address]- 9159 Apr, [facility] [address] [place] [address]- 5684 Apr, [facility] [address], [place] [address]- 5746 Apr, [facility] [address] [place] [address]- 1426 Apr, Diabetes mellitus 250.00 [facility] [address], [place] [address]- 7303 Apr, [facility] [address], [place] [address]- 0956 Apr, [facility] [address], [place] [address]- 4381 Apr, [facility] [address], [place] [address]- 0775 Apr, [facility] [address], [place] [address]- 1070 Mar, [facility] [id number] [place] [address]- 1306 Mar, [facility] [address] [place] [address]- 7680 Mar, [facility] [id number] [place] [address]- 3426 Mar, Renal failure N19 [facility] [place] [facility] [address] [id number] [place] [address]- 7315 14 Mar, 2015 [facility] [place] [facility] [address] [id number] [place] [address]- 8938 Mar, [facility] [place] [facility] [address] [id number] [place] [address]- 5067 Mar, [facility] [place] [facility] [address] [id number] [place] [address]- 3177 24 Jan, 2015 [facility] [place] [facility] [address] [id number] [place] [address]- 1582 Jan, [facility] [place] [facility] [address] [id number] [place] [address]- 0791 Jan, [facility] [place] [facility] [address] [id number] [place] [address]- 8058 Jan, [facility] [place] [facility] [address] [id number] [place] [address]- 5266 Dec, [facility] [place] [facility] [address] [id number] [place] [address]- 6855 Dec, [facility] [place] [facility] [address] [id number] [place] [address]- 2713 Dec, [facility] [place] [facility] [address] [id number] [place] [address]- 9098 Nov, [facility] [place] [facility] [address] [id number] [place] [address]- 5658 Nov, [facility] [place] [facility] [address] [id number] [place] [address]- 4849 Nov, [facility] [place] [facility] [address] [id number] [place] [address]- 1972 Oct, [facility] [place] [facility] [address] [id number] [place] [address]- 1771 Oct, [facility] [place] [facility] [address] [id number] [place] [address]- 6127 Oct, Renal failure 586 and Obesity 278.00 [facility] [address], [place] [address]- 0001 Oct, [facility] [address], [place] [address]- 3958 Oct, [facility] [id number], [place] [address]- 3659 Oct, [facility] [id number] [place] [address] 80311- 7870 Sep, [facility] [id number] [place] [address] 68329- 2233 Sep, [facility] [id number], [place] [address]- 3473 Sep, Diabetes mellitus 250.00 and Congestive heart failure, unspecified 428.0 [facility] [id number], [place] [address]- 9221 Aug, [facility] [address], [place] [address]- 3436 Aug, [facility] [address], [place] [address]- 7908 Aug, [facility] [address], [place] [address]- 7576 July, [facility] [address], [place] [address]- 0631 July, [facility] [id number], [place] [address]- 8041 July, Heart murmur, systolic 785.2 [facility] [address], [place] [address]- 2568 July, [facility] [id number], [place] [address]- 5465 July, [facility] [address] [id number] [place] [address]- 5787 14 Jun, 2014 [facility] [place] [facility] [address] [id number] [place] [address] 13 Jun, 2014 [facility] [place] [facility] [address] [id number] [place] [address] 23 May, 2014 [facility] [place] [facility] [address] [id number] [place] [address] 23 May, 2014 [facility] [place] [facility] [address] [id number] [place] [address] 18 May, 2014 [facility] [place] [facility] [address] [id number] [place] [address] 18 May, 2014 [facility] [place] [facility] [address] [facility] [id number] [place] [address] 16 May, 2014 [facility] [place] [facility] [address] [facility] [id number] [place] [address] 16 May, 2014 [facility] [place] [facility] [address] [facility] [id number] [place] [address] 10 May, 2014 [facility] [place] [facility] [address] [id number] [place] [address] 10 May, 2014 [facility] [place] [facility] [address] [facility] [id number] [place] [address] May, [facility] [place] [facility] [address] [id number] [place] [address] May, [facility] [place] [facility] [address] [facility] [id number] [place] [address] May, [facility] [place] [facility] [address] [id number] [place] [address] May, [facility] [place] [facility] [address] [facility] [id number] [place] [address] May, [facility] [place] [facility] [address] [id number] [place] [address] May, [facility] [place] [facility] [address] [id number] [place] [address] May, 2014 [facility] [place] [facility] [address] [id number] [place] [address] 18 May, 2014 [facility] [place] [facility] [address] [facility] [id number] [place] [address] 18 May, 2014 [facility] [place] [facility] [address] [id number] [place] [address] May, 2014 [facility] [place] [facility] [address] [id number] [place] [address] May, 2014 [facility] [place] [facility] [address] [id number] [place] [address] May, 2014 [facility] [place] [facility] [address] [facility] [id number] [place] [address] 16 May, 2014 [facility] [place] [facility] [address] [id number] [place] [address] 16 May, 2014 [facility] [place] [facility] [address] [id number] [place] [address] May, 2014 [facility] [place] [facility] [address] [facility] [id number] [place] [address] May, 2014 [facility] [place] [facility] [address] [facility] [id number] [place] [address] May, 2014 [facility] [place] [facility] [address] [facility] [facility] [id number] [address] May, 2014 [facility] [place] [facility] [address] [id number] [place] [address] Apr, [facility] [place] [facility] [address] [id number] [place] [address] Apr, [facility] [place] [facility] [address] [facility] [id number] [place] [address]134 Apr, [facility] [place] [facility] [address] [id number] [place] [address]- 1569 Apr, [facility] [place] [facility] [address] [id number] [place] [address]- 4[address] Apr, [facility] [place] [facility] [address] [id number] [place] [address]- 2956 Apr, [facility] [place] [facility] [address] [id number] [place] [address]- 7940 Apr, [facility] [place] [facility] [address] [id number] [place] [address] 7111 Apr, [facility] [place] [facility] [address] [id number] [place] [address] 8677 Mar, [facility] [place] [facility] [address] [id number] [place] [address]- 5179 Mar, [facility] [place] [facility] [address] [id number] [place] [address] 5460 Mar, [facility] [place] [facility] [address] [id number] [place] [address]- 6024 Mar, [facility] [place] [facility] [address] [id number] [place] [address]- 3064 Mar, [facility] [place] [facility] [address] [id number] [place] [address]- 9156 Mar, [facility] [place] [facility] [address] [id number] [place] [address]- 2616 Mar, [facility] [place] [facility] [address] [id number] [place] [address]- 0038 Mar, [facility] [place] [facility] [address] [id number] [place] [address] Mar, [facility] [place] [facility] [address] [id number] [place] [address] Mar, [facility] [place] [facility] [address] [id number] [place] [address]- 5817 Mar, [facility] [place] [facility] [address] [id number] [place] [address]- 5045 Mar, [facility] [place] [facility] [address] [id number] [place] [address]- 5926 Mar, [facility] [place] [facility] [address] [facility] [id number] [place] [address]- 0108 Mar, [facility] [place] [facility] [address] [id number] [place] [address]- 6956 Mar, [facility] [place] [facility] [address] [id number] [place] [address]- 7443 Mar, [facility] [place] [facility] [address] [id number] [place] [address]- 1568 Mar, [facility] [place] [facility] [address] [id number] [place] [address]- 9508 Mar, [facility] [place] [facility] [address] [id number] [place] [address]- 2941 Mar, [facility] [place] [facility] [address] [id number] [place] [address]- 6770 Mar, [facility] [place] [facility] [address] [id number] [place] [address]- 6636 Mar, [facility] [place] [facility] [address] [id number], [place] [address] 44[address] Mar, [facility] [place] [facility] [address] [id number], [place] [address]- [address] Jan, [facility] [place] [facility] [address] [id number] [place] [address]- 9665 Jan, [facility] [place] [facility] [address] [id number] [place] [address]- 7828 Jan, [facility] [place] [facility] [address] [id number] [place] [address]- 7313 Jan, [facility] [place] [facility] [address] [id number] [place] [address]- 4662 Jan, [facility] [place] [facility] [address] [id number] [place] [address]- 0874 Jan, [facility] [place] [facility] [address] [id number] [place] [address]- 1030 Jan, [facility] [place] [facility] [address] [id number] [place] [address]- 7672 Jan, [facility] [place] [facility] [address] [id number] [place] [address]- 8270 Jan, [facility] [place] [facility] [address] [id number] [place] [address]- 6303 Jan, [facility] [place] [facility] [address] [id number] [place] [address]- 5358 Jan, [facility] [place] [facility] [address] [id number] [place] [address]- 6887 Jan, [facility] [place] [facility] [address] [id number] [place] [address]- 5399 Jan, [facility] [place] [facility] [address] [id number] [place] [address]- 9982 Jan, [facility] [place] [facility] [address] [id number] [place] [address]- 2313 Jan, [facility] [place] [facility] [address] [id number] [place] [address]- 2602 Jan, [facility] [place] [facility] [address] [id number] [place] [address]- 3516 Jan, [facility] [place] [facility] [address] [id number] [place] [address]- 9249 Jan, [facility] [place] [facility] [address] [id number] [place] [address]- 5351 Jan, [facility] [place] [facility] [address] [id number] [place] [address]- 9979 Jan, [facility] [place] [facility] [address] [id number] [place] [address]- 3299 Dec, 2013 [facility] [place] [facility] [address] [id number] [place] [address]- 3762 Dec, [facility] [place] [facility] [address] [id number] [place] [address]- 0506 Dec, [facility] [place] [facility] [address] [id number] [place] [address]- 5893 Dec, [facility] [place] [facility] [address] [id number] [place] [address]- 1040 Dec, [facility] [place] [facility] [address] [id number] [place] [address]- 0833 Dec, [facility] [place] [facility] [address] [id number] [place] [address]- 3711 Dec, [facility] [place] [facility] [address] [id number] [place] [address]- 1087 Dec, [facility] [place] [facility] [address] [id number] [place] [address]- 4869 Dec, [facility] [place] [facility] [address] [id number] [place] [address]- 1010 Dec, [facility] [place] [facility] [address] [id number] [place] [address]- 9966 Dec, [facility] [place] [facility] [address] [id number] [place] [address]- 8393 Dec, [facility] [place] [facility] [address] [id number] [place] [address]- 9756 Dec, [facility] [place] [facility] [address] [id number] [place] [address]- 2813 Dec, [facility] [place] [facility] [address] [id number] [place] [address] Dec, [facility] [place] [facility] [address] [id number] [place] [address]- 4191 22 Nov, 2013 [facility] [place] [facility] [address] [id number] [place] [address] 2546 22 Nov, 2013 [facility] [place] [facility] [address] [id number] [place] [address] 2546 19 Nov, 2013 [facility] [place] [facility] [address] [id number] [place] [address] 2546 19 Nov, 2013 [facility] [place] [facility] [address] [id number] [place] [address] 2547 13 Nov, 2013 [facility] [place] [facility] [address] [id number] [place] [address]- 6308 13 Nov, 2013 [facility] [place] [facility] [address] [id number] [place] [address]- 0776 10 Nov, 2013 [facility] [place] [facility] [address] [id number] [place] [address]- 5240 10 Nov, 2013 [facility] [place] [facility] [address] [id number] [place] [address]- 8841 08 Nov, 2013 [facility] [place] [facility] [address] [id number] [place] [address]- 9273 05 Nov, 2013 [facility] [place] [facility] [address] [id number] [place] [address]- 4884 05 Nov, 2013 [facility] [place] [facility] [address] [id number] [place] [address] 2541 Nov, 2013 [facility] [place] [facility] [address] [id number] [place] [address]- 2577 Nov, 2013 [facility] [place] [facility] [address] [id number] [place] [address]- 8182 Oct, [facility] [place] [facility] [address] [id number] [place] [address]- 5587 Oct, [facility] [place] [facility] [address] [id number] [place] [address]- 2043 Oct, [facility] [place] [facility] [address] [id number] [place] [address]- 4056 Oct, [facility] [place] [facility] [address] [id number] [place] [address]- 7376 Oct, [facility] [place] [facility] [address] [id number] [place] [address]- 9540 Sep, [facility] [place] [facility] [address] [id number] [place] [address]- 3777 Sep, [facility] [place] [facility] [address] [id number] [place] [address]- 8034 Sep, [facility] [place] [facility] [address] [id number] [place] [address]- 4727 Sep, [facility] [place] [facility] [address] [id number] [place] [address]- 5983 Aug, [facility] [place] [facility] [address] [id number] [place] [address]- 7133 Aug, [facility] [place] [facility] [address] [id number] [place] [address]- 9724 Aug, [facility] [place] [facility] [address] [id number] [place] [address]- 6160 Aug, [facility] [place] [facility] [address] [id number] [place] [address]- 4797 Aug, [facility] [place] [facility] [address] [id number] [place] [address]- 0631 Aug, [facility] [place] [facility] [address] [id number] [place] [address]- 0251 Aug, [facility] [place] [facility] [address] [id number] [place] [address]- 8197 Aug, [facility] [place] [facility] [address] [id number] [place] [address]- 2368 Aug, [facility] [place] [facility] [address] [id number] [place] [address]- 3319 Aug, [facility] [place] [facility] [address] [id number] [place] [address]- 1452 Aug, [facility] [place] [facility] [address] [id number] [place] [address]- 3811 Aug, [facility] [place] [facility] [address] [id number] [place] [address]- 5643 Aug, [facility] [place] [facility] [address] [id number] [place] [address]- 0565 Aug, [facility] [place] [facility] [address] [id number] [place] [address]- 0579 Aug, [facility] [place] [facility] [address] [id number] [place] [address]- 9353 Aug, [facility] [place] [facility] [address] [id number] [place] [address]- 1396 Aug, [facility] [place] [facility] [address] [id number] [place] [address]- 6843 Aug, [facility] [place] [facility] [address] [id number] [place] [address]- 4680 Aug, [facility] [place] [facility] [address] [id number] [place] [address]- 1275 Aug, [facility] [place] [facility] [address] [id number] [place] [address]- 8758 Aug, [facility] [place] [facility] [address] [id number] [place] [address]- 8806 Aug, [facility] [place] [facility] [address] [id number] [place] [address]- 3516 Aug, [facility] [place] [facility] [address] [id number] [place] [address]- 0262 Aug, [facility] [place] [facility] [address] [id number] [place] [address]- 1883 July, [facility] [place] [facility] [address] [id number] [place] [address]- 6112 July, [facility] [address] [id number] [place] [address]- 8223 July, [facility] [place] [facility] [address] [id number] [place] [address]- 7997 July, [facility] [place] [facility] [address] [id number] [place] [address]- 2010 July, [facility] [place] [facility] [address] [id number] [place] [address]- 4844 July, [facility] [place] [facility] [address] [id number] [place] [address]- 1348 Jun, [facility] [place] [facility] [address] [id number] [place] [address]- 3264 Jun, [facility] [place] [facility] [address] [id number] [place] [address]- 7012 Jun, [facility] [place] [facility] [address] [id number] [place] [address]- 9480 Jun, [facility] [place] [facility] [address] [id number] [place] [address]- 1804 Jun, [facility] [place] [facility] [address] [id number] [place] [address]- 2083 Jun, [facility] [place] [facility] [address] [id number] [place] [address]- 9841 Jun, [facility] [place] [facility] [address] [id number] [place] [address]- 6270 Jun, [facility] [place] [facility] [address] [id number] [place] [address]- 4715 Jun, [facility] [place] [facility] [address] [id number] [place] [address]- 8940 Jun, [facility] [place] [facility] [address] [id number] [place] [address]- 4493 Jun, [facility] [place] [facility] [address] [id number] [place] [address]- 9551 Jun, [facility] [place] [facility] [address] [id number] [place] 3096 Jun, [facility] [place] [facility] [address] [id number] [place] [address]366 Jun, [facility] [place] [facility] [address] [id number] [place] [address]- 8994 Jun, [facility] [place] [facility] [address] [id number] [place] [address]- 2564 May, [facility] [place] [facility] [address] [id number] [place] [address]- 4987 May, [facility] [place] [facility] [address] [id number] [place] [address]- 8389 May, [facility] [place] [facility] [address] [id number] [place] [address]- 0153 May, [facility] [place] [facility] [address] [id number] [place] [address]- 3609 May, [facility] [place] [facility] [address] [id number] [place] [address]- 2740 May, [facility] [place] [facility] [address] [id number] [place] [address]- 9177 May, [facility] [place] [facility] [address] [id number] [place] [address]- 9269 May, [facility] [place] [facility] [address] [id number] [place] [address]- 2230 May, [facility] [place] [facility] [address] [id number] [place] [address]- 3640 May, [facility] [place] [facility] [address] [id number] [place] [address]- 0641 May, [facility] [place] [facility] [address] [id number] [place] [address]- 6067 May, [facility] [place] [facility] [address] [id number] [place] [address]- 5177 May, [facility] [place] [facility] [address] [id number] [place] 2993 May, [facility] [place] [facility] [address] [id number] [place] [address]- 1926 May, [facility] [place] [facility] [address] [id number] [place] [address]- 4047 May, [facility] [place] [facility] [address] [id number] [place] [address]- 2146 May, [facility] [place] [facility] [address] [id number] [place] [address]- 2935 Apr, [facility] [place] [facility] [address] [id number] [place] [address]- 8476 Apr, [facility] [place] [facility] [address] [id number] [place] [address]- 6556 Apr, [facility] [place] [facility] [address] [id number] [place] [address]- 9636 Apr, [facility] [place] [facility] [address] [id number] [place] [address]- 1871 Apr, [facility] [place] [facility] [address] [id number] [place] [address]- 7696 Apr, [facility] [place] [facility] [address] [id number] [place] [address]- 5789 Apr, [facility] [place] [facility] [address] [id number] [place] [address]- 1760 Apr, [facility] [place] [facility] [address] [id number] [place] [address]- 8522 Apr, [facility] [place] [facility] [address] [id number] [place] [address]- 2504 Apr, [facility] [place] [facility] [address] [id number] [place] [address]- 5337 08 Apr, 2013 [facility] [address] [id number] [place] [address]- 5444 Apr, [facility] [place] [facility] [address] [id number] [place] [address]- 9583 Apr, [facility] [address] [id number] [place] [address]- 1629 Apr, [facility] [place] [facility] [address] [id number] [place] [address]- 0552 Apr, [facility] [address] [id number] [place] [address]- 3457 Apr, [facility] [address] [id number] [place] [address]- 3780 Mar, [facility] [place] [facility] [address] [id number] [place] [address]- 2190 30 Mar, 2013 [facility] [address] [id number] [place] [address]- 1794 30 Mar, 2013 [facility] [place] [facility] [address] [id number] [place] [address]- 8519 30 Mar, 2013 [facility] [address] [id number] [place] [address]- 6309 18 Mar, 2013 [facility] [place] [facility] [address] [id number] [place] [address]- 2141 18 Mar, 2013 [facility] [place] [facility] [address] [id number] [place] [address]- 5781 18 Mar, 2013 [facility] [place] [facility] [address] [id number] [place] [address]- 4737 18 Mar, 2013 [facility] [place] [facility] [address] [id number] [place] [address]- 2686 17 Mar, 2013 [facility] [place] [facility] [address] [id number] [place] [address]- 8253 Mar, [facility] [address] [id number] [place] [address]- 7261 Mar, [facility] [place] [facility] [address] [id number] [place] [address]- 7983 Mar, [facility] [place] [facility] [address] [id number] [place] [address]- 9419 Mar, [facility] [place] [facility] [address] [id number] [place] [address]- 7659 Mar, [facility] [address] [id number] [place] [address]- 4430 Mar, [facility] [place] [facility] [address] [id number] [place] [address]- 1539 Mar, [facility] [place] [facility] [address] [id number] [place] [address]- 0745 Mar, [facility] [place] [facility] [address] [id number], [place] [address]- 5503 Mar, [facility] [place] [facility] [address] [id number] [place] [address]- 0527 Jan, [facility] [place] [facility] [address] [id number], [place] [address]- 5340 Jan, [facility] [place] [facility] [address] [id number], [place] [address]- 1372 Jan, [facility] [place] [facility] [address] [id number], [place] [address]- 4698 Jan, [facility] [place] [facility] [address] [id number] [place] [address]- 6764 Nov, [facility] [place] [facility] [address] [id number], [place] [address]- 4168 10 Nov, 2012 [facility] [place] [facility] [address] [id number], [place] [address]- 6245 Nov, [facility] [place] [facility] [address] [id number] [place] [address]- 3480 Nov, [facility] [address] [id number] [place] [address]- 0413 Oct, [facility] [place] [facility] [address] [id number] [place] [address]- 0626 Oct, [facility] [place] [facility] [address] [id number] [place] [address]- 0833 Oct, [facility] [place] [facility] [address] [id number] [place] [address]- 3830 Oct, [facility] [place] [facility] [address] [id number] [place] [address]- 1516 Sep, [facility] [place] [facility] [address] [id number] [place] [address]- 7828 Sep, [facility] [place] [facility] [address] [id number] [place] [address]- 8378 Sep, [facility] [place] [facility] [address] [id number] [place] [address]- 5134 Sep, [facility] [place] [facility] [address] [id number] [place] [address] Sep, [facility] [place] [facility] [address] [id number] [place] [address] Sep, [facility] [place] [facility] [address] [id number] [place] [address] Sep, [facility] [place] [facility] [address] [id number] [place] [address] Sep, [facility] [place] [facility] [address] [id number] [place] [address] Sep, [facility] [place] [facility] [address] [id number] [place] [address] Aug, [facility] [place] [facility] [address] [id number] [place] [address] Aug, [facility] [place] [facility] [address] [id number] [place] [address] Aug, [facility] [address] [id number] [place] [address] Aug, [facility] [address] [id number] [place] [address] July, [facility] [address] [id number] [place] [address] July, [facility] [address] [id number] [place] [address] July, [facility] [address] [id number] [place] [address] July, [facility] [address] [id number] [place] [address] July, [facility] [address] [id number] [place] [address] July, [facility] [address] [id number] [place] [address] July, [facility] [address] [id number] [place] [address] Jun, [facility] [address] [id number] [place] [address] May, [facility] [address] [id number] [place] [address] May, [facility] [address] [id number] [place] [address] May, [facility] [place] [facility] [address] [id number] [place] [address] May, [facility] [place] [facility] [address] [id number] [place] [address] May, [facility] [place] [facility] [address] [id number] [place] [address] May, [facility] [address] [facility] [id number] [place] [address] May, [facility] [address] [facility] [id number] [place] [address] May, IMMUNIZATIONS No Known Immunizations SOCIAL HISTORY Never Assessed REASON FOR VISIT refill PLAN OF CARE VITAL SIGNS MEDICATIONS Medication Instructions Dosage Frequency Start Date End Date Duration Status PredniSONE 20 mg Orally Once a day 2 tablets 24h Apr, 05 days Active Isosorbide Mononitrate ER 30 mg TAKE 1 TABLET BY MOUTH DAILY 30 Active Amoxicillin 500 mg Orally 3 times a day 1 capsule 8h Apr, 10 day(s) Active RESULTS No Results PROCEDURES [...]
--- OUTSIDE RECORDS SUMMARY | 2017-12-18 20:12 | XMS REPORT ---
Author Author MCKENNA HEBERT [facility] Address [address] [place] [address] Care Team Providers Care Plasterer Journeyman Name Role Phone MCKENNA HEBERT Unavailable PROBLEMS Type Condition ICD9-CM Code ULC65-HB Code Onset Dates Condition Status SNOMED Code Problem Cellulitis of right lower extremity L03.115 Active 204614253 Problem Chronic congestive heart failure, unspecified congestive heart failure type I50.9 Active 45875682 Problem Intra-dialytic hypotension I95.3 Active 821574088 Problem Renal failure N19 Active 27425751 Problem Diabetes type 2, controlled E11.9 Active 53987970 Problem Amput below knee, unilat S88.119A Active 69290454 Problem Neuropathy G62.9 Active 182891372 ALLERGIES Unknown Allergies SOCIAL HISTORY No smoking Hx information available PLAN OF CARE VITAL SIGNS MEDICATIONS Unknown Medications RESULTS No Results PROCEDURES No Known procedures IMMUNIZATIONS No Known Immunizations
--- OUTSIDE RECORDS SUMMARY | 2017-12-18 20:13 | XMS REPORT ---
Author Author MCKENNA HEBERT Organization [facility] Address [address] [place] [address] Care Team Providers Care Director Integrated Name Role Phone MCKENNA HEBERT Unavailable PROBLEMS Type Condition ICD9-CM Code WFO27-MC Code Onset Dates Condition Status SNOMED Code Problem Diabetes type 2, controlled E11.9 Active 33832786 Problem Neuropathy G62.9 Active 823197114 Problem Renal failure N19 Active 99128613 Problem Cellulitis of right lower extremity L03.115 Active 314573442 Problem Angina pectoris I20.9 Active 806297365 Problem Seasonal allergic rhinitis due to other allergic trigger J30.89 Active 181960874 Problem Intra-dialytic hypotension I95.3 Active 006530085 Problem Amput below knee, unilat S88.119A Active 55582400 Problem Chronic congestive heart failure, unspecified heart failure type I50.9 Active 21534508 Problem Chronic congestive heart failure, unspecified congestive heart failure type I50.9 Active 10307506 ALLERGIES No Information ENCOUNTERS Encounter Location Date Diagnosis [facility] [id number] [place] [address] 63512- 0418 July, [facility] [address], [place] [address] 2358 Jun, [facility] [id number] [place] [address] 25752- 6471 Jun, [facility] [address] [place] [address] 53956- 3192 Jun, Diabetes type 2, controlled E11.9 [facility] [address], [place] [address]- 2542 Jun, [facility] [address] [place] [address] 27480- 3830 May, [facility] [address] [place] [address] 28810- 3645 May, [facility] [address] [address]- 1942 May, [facility] [id number] [place] [address] 00129- 2512 May, Chronic congestive heart failure, unspecified congestive heart failure type I50.9 [facility] [address] 97[address]- 8297 May, Diabetes type 2, controlled E11.9 ; BMI 50.0-59.9, adult Z68.43 ; Chronic congestive heart failure, unspecified heart failure type I50.9 ; Angina pectoris I20.9 ; Seasonal allergic rhinitis due to other allergic trigger J30.89 and Renal failure N19 [facility] [id number] [place] [address] [id number] May, [facility] [id number] [place] [address] 99381- 0196 May, [facility] [id number] [place] [address] 47433- 4029 May, [facility] [id number] [place] [address] 45381- 1118 May, [place] [id number] [place] [address] 03003- 5075 May, [facility] [id number] [place] [address] 54280- 3900 Apr, BMI 50.0-59.9, adult Z68.43 [facility] [address] 32098- 1368 Apr, BMI 50.0-59.9, adult Z68.43 ; Post-procedural fever R50.82 and Bronchitis J40 [facility] [address] 94457- 1426 Apr, Chronic congestive heart failure, unspecified congestive heart failure type I50.9 [facility] [address] [id number], [place] [address]- 5903 Jan, [facility] [address] [id number], [place] [address]- 2485 Jan, Diabetes type 2, controlled E11.9 [facility] [address] [id number] [place] [address]- 9620 Jan, Neuropathy G62.9 [facility] [address] [id number] [place] [address]- 4188 Jan, [facility] [id number] [place] [address] 29336- 2800 Jan, [facility] [address] [id number], [place] [address]- 7075 Jan, [facility] [address] [id number], [place] [address]- 5067 Jan, [facility] [address] [id number], [place] [address]- 1528 Jan, [facility] [address] [id number], [place] [address]- 8098 Dec, [facility] [address] [id number], [place] [address]- 5131 Dec, [facility] [address] [id number], [place] [address]- 0356 Dec, Diabetes type 2, controlled E11.9 [facility] [address] [id number], [place] [address]- 9117 Dec, [facility] [address] [id number] [address]- 7888 Dec, [facility] [address] [id number], [place] [address]- 6838 Dec, Chronic congestive heart failure, unspecified congestive heart failure type I50.9 [facility] [address] [id number] [place] [address]- 6684 Dec, [facility] [address] [id number], [place] [address]- 0674 Dec, [facility] [address] [id number] [place] [address]- 0529 Nov, Chronic congestive heart failure, unspecified congestive heart failure type I50.9 [facility] [address] [id number] [place] [address]- 8890 Nov, Chronic congestive heart failure, unspecified congestive heart failure type I50.9 [facility] [address] [id number], [place] [address]- 6449 Nov, [facility] [address] [id number], [place] [address]- 2376 Oct, [facility] [address] [id number], [place] [address]- 8062 Oct, [facility] [address] [id number], [place] [address]- 6545 Oct, Chronic congestive heart failure, unspecified congestive heart failure type I50.9 [facility] [address] [id number], [place] [address]- 5315 Oct, [facility] [address] [id number], [place] [address]- 0128 Oct, Pneumonia of both lungs due to infectious organism, unspecified part of lung J18.9 [facility] [address] [id number], [place] [address]- 8570 Oct, [facility] [address] [id number], [place] [address]- 5380 Oct, Diabetes type 2, controlled E11.9 [facility] [address] [id number], [place] [address]- 5044 Oct, Diabetes type 2, controlled E11.9 [facility] [address] [id number] [place] [address] 2546 Sep, [facility] [id number] [place] [address], [place] [address] 2546 Sep, Neuropathy G62.9 [facility] [address] [id number] [address] 2546 Aug, Intra-dialytic hypotension I95.3 [facility] [id number] [place] [address], [place] [address] 2546 July, [facility] [id number] [place] [address], [place] [address] 2546 July, [facility] [id number] [place] [address] 71360 2546 July, [facility] [id number] [place] [address] 71809 2546 July, Amput below knee, unilat S88.119A [facility] [address] [id number] [address] 2546 May, [facility] [id number] [place] [address], [place] [address] 2546 May, Neuropathy G62.9 [facility] [address], [place] [address] 2546 May, [facility] [address], [place] [address] 2546 May, [facility] [address] [address] 2546 May, [facility] [id number] [place] [address], [place] [address] 2546 May, [facility] [address], [place] [address] 2546 May, Neuropathy G62.9 [facility] [address] [id number] [place] [address]- 5498 Apr, [facility] [address] [address]- 3846 Apr, [facility] [address] [address]- 1609 Apr, Diabetes type 2, controlled E11.9 and Renal failure N19 [facility] [id number] [place] [address], [place] [address] Apr, [facility] [address] [id number] [address]- 4254 Apr, [facility] [id number] [place] [address], [place] [address]- 5863 Mar, [facility] [id number] [place] [address], [place] [address]- 6837 Mar, [facility] [id number] [place] [address], [place] [address]- 3320 Mar, [facility] [address] [address]- 7663 Mar, [facility] [address] [address]- 3382 Mar, [facility] [address] [address]- 9321 Jan, Localized edema R60.0 [facility] [address], [place] [address]- 4572 Jan, [facility] [address] [id number] [address]- 8398 Jan, [facility] [address] [address]- 0182 Jan, [facility] [address] [address]- 3559 Jan, [facility] [id number] [place] [address] 62206- 5801 Jan, [facility] [id number] [place] [address] 06022- 8691 Jan, [facility] [id number] [place] [address] 91742- 6314 Dec, Diabetes type 2, controlled E11.9 and Chronic nonintractable headache, unspecified headache type R51 [facility] [id number] [place] [address] 01939- 6996 Dec, [facility] [id number] [place] [address] 72456- 3288 Dec, [facility] [id number] [place] [address] 08476- 9316 Nov, [facility] [id number] [place] [address] 25515- 8905 Nov, [facility] [id number] [place] [address] 67298- 8904 Oct, [facility] [id number] [place] [address] 81207- 7594 Oct, Migraine without status migrainosus, not intractable, unspecified migraine type G43.909 [facility] [id number] [place] [address] 35937- 0792 Oct, [facility] [id number] [place] [address] 16713- 0605 Sep, Amput below knee, unilat S88.119A and Neuropathy G62.9 [facility] [id number] [place] [address] 96219- 4522 Sep, [facility] [id number] [place] [address] 06168- 0609 Sep, [facility] [id number] [place] [address] 41775- 5813 Sep, [facility] [address] [id number] [place] [address]- 4631 30 Aug, 2015 [facility] [address] [id number] [place] [address]- 4810 Aug, [facility] [address] [id number] [place] [address]- 0162 17 Aug, 2015 Diabetes type 2, controlled E11.9 [facility] [address] [id number] [place] [address]- 2549 Aug, [facility] [address] [id number] [place] [address]- 5775 Jun, Diabetes type 2, controlled E11.9 and Neuropathy G62.9 [facility] [address] [id number] [place] [address]- 6972 Jun, [facility] [address] [address]- 8787 Jun, [facility] [address] [id number] [place] [address]- 0750 Jun, [facility] [address] [address]- 0267 Jun, [facility] [address] [address]- 6853 May, [facility] [address] [id number] [place] [address]- 5672 May, Diabetes type 2, controlled E11.9 [facility] [address] [id number], [place] [address]- 6451 May, [facility] [address] [id number] [address]- 0771 May, [facility] [address] [id number] [place] [address]- 8102 May, [facility] [address], [place] [address]- 5649 May, [facility] [address], [place] [address]- 9259 May, [facility] [address], [place] [address]- 5676 May, [facility] [address], [place] [address]- 3886 May, [facility] [address] [place] [address] 75556- 5835 May, COPD (chronic obstructive pulmonary disease) J44.9 [facility] [address] [place] [address] 55084- 7206 May, [facility] [address], [place] [address]- 5681 May, [facility] [address] [place] [address] 06831- 9024 May, [facility] [address], [place] [address]- 2594 May, [facility] [address], [place] [address]- 0700 May, [facility] [address], [place] [address]- 7633 May, Renal failure N19 and Pneumonia, organism unspecified, unspecified laterality, unspecified part of lung J18.9 [facility] [address], [place] [address]- 3081 Apr, [facility] [address], [place] [address]- 9588 Apr, [facility] [address], [place] [address]- 3462 Apr, [facility] [address], [place] [address]- 6122 Apr, Diabetes mellitus 250.00 [facility] [address] [id number] [place] [address]- 6921 14 Apr, 2015 [facility] [address] [id number] [place] [address]- 2487 14 Apr, 2015 [facility] [address] [id number] [place] [address]- 9256 13 Apr, 2015 [facility] [address] [id number] [place] [address]- 8971 07 Apr, 2015 [facility] [address] [id number] [place] [address]- 4061 31 Mar, 2015 [facility] [address] [id number] [place] [address]- 6076 28 Mar, 2015 [facility] [address] [address]- 4914 Mar, [facility] [address] [id number] [place] [address]- 2165 16 Mar, 2015 Renal failure N19 [facility] [address] [id number] [place] [address]- 7369 14 Mar, 2015 [facility] [address] [id number] [address]- 4979 Mar, [facility] [address] [id number] [place] [address]- 5268 Mar, [facility] [address] [id number] [place] [address]- 2193 24 Jan, 2015 [facility] [place] [facility] [address] [id number] [place] [address]- 8414 18 Jan, 2015 [facility] [address] [id number] [place] [address]- 6920 17 Jan, 2015 [facility] [place] [facility] [address] [id number] [address]- 6539 13 Jan, 2015 [facility] [address] [id number] [place] [address]- 5063 Dec, [facility] [address] [id number] [place] [address]- 0811 Dec, [facility] [address] [id number] [place] [address]- 1050 Dec, [facility] [address] [id number] [place] [address]- 5443 Nov, [facility] [address] [id number] [place] [address]- 7327 Nov, [facility] [address] [id number] [place] [address]- 5038 Nov, [facility] [address] [id number] [address]- 8092 Oct, [facility] [address] [address]- 4321 Oct, [facility] [address] [id number] [address]- 0692 Oct, Renal failure 586 and Obesity 278.00 [facility] [address] [address]- 7927 Oct, [facility] [address] [id number] [place] [address]- 5419 Oct, [facility] [address], [place] [address]- 4646 Oct, [facility] [address] [id number], [place] [address]- 1092 Sep, [facility] [address] [address]- 2657 Sep, [facility] [address] [id number] [address]- 3328 Sep, Diabetes mellitus 250.00 and Congestive heart failure, unspecified 428.0 [facility] [address] [id number] [place] [address]- 1159 Aug, [facility] [address] [id number] [place] [address]- 6111 Aug, [facility] [address] [id number] [place] [address]- 2220 Aug, [facility] [address] [id number] [place] [address]- 9910 July, [facility] [address] [id number] [place] [address]- 9417 July, [facility] [address] [id number] [place] [address]- 7265 July, Heart murmur, systolic 785.2 [facility] [address] [id number] [place] [address]- 2788 July, [facility] [address] [id number] [place] [address]- 3803 July, [facility] [address] [id number] [place] [address]- 0211 Jun, [facility] [address] [id number] [place] [address]- 7872 Jun, [facility] [address] [id number] [place] [address]- 0597 May, [facility] [address] [id number], [place] [address]- 8404 May, [facility] [address] [id number] [place] [address]- 6058 May, [facility] [address] [id number] [place] [address]- 6141 May, [facility] [address] [id number] [place] 4683 May, [facility] [address] [id number], [place] [address]- 4780 16 May, 2014 [facility] [place] [facility] [address] [id number] [place] [address]- 9169 10 May, 2014 [facility] [place] [facility] [address] [id number] [place] [address] 10 May, 2014 [facility] [place] [facility] [address] [id number] [place] [address] May, 2014 [facility] [place] [facility] [address] [id number] [place] [address] May, 2014 [facility] [place] [facility] [address] [id number] [place] [address] May, 2014 [facility] [place] [facility] [address] [id number] [place] [address] May, 2014 [facility] [place] [facility] [address] [id number] [place] [address] May, 2014 [facility] [place] [facility] [address] [id number] [place] [address] 23 May, 2014 [facility] [place] [facility] [address] [id number] [place] [address] 18 May, 2014 [facility] [place] [facility] [address] [id number] [place] [address] 18 May, 2014 [facility] [place] [facility] [address] [id number] [place] [address] 18 May, 2014 [facility] [place] [facility] [address] [id number], [place] [address] 18 May, 2014 [facility] [place] [facility] [address] [id number] [place] [address] 18 May, 2014 [facility] [place] [facility] [address] [id number] [place] [address] 18 May, 2014 [facility] [place] [facility] [address] [id number] [place] [address] May, 2014 [facility] [place] [facility] [address] [id number] [place] [address] May, 2014 [facility] [place] [facility] [address] [id number] [place] [address] May, [facility] [place] [facility] [address] [id number] [place] [address] May, [facility] [place] [facility] [address] [id number] [place] [address]908 May, [facility] [place] [facility] [address] [id number] [place] [address] May, [facility] [place] [facility] [address] [id number] [place] [address] Apr, [facility] [place] [facility] [address] [id number] [place] [address]- [address] Apr, [facility] [place] [facility] [address] [id number] [place] [address] Apr, [facility] [place] [facility] [address] [id number] [place] [address] Apr, [facility] [place] [facility] [address] [id number] [place] [address] Apr, [facility] [place] [facility] [address] [id number] [place] [address] Apr, [facility] [place] [facility] [address] [id number] [place] [address] Apr, [facility] [place] [facility] [address] [id number] [place] [address]- [address] Apr, [facility] [place] [facility] [address] [id number] [place] [address] Mar, [facility] [place] [facility] [address] [id number] [place] [address] Mar, [facility] [place] [facility] [address] [id number] [place] [address] Mar, [facility] [address] [id number] [place] [address] Mar, [facility] [place] [facility] [address] [id number] [place] [address]- [address] Mar, [facility] [address] [id number] [place] [address] Mar, [facility] [place] [facility] [address] [id number] [place] [address] Mar, [facility] [place] [facility] [address] [id number] [place] [address] Mar, [facility] [place] [facility] [address] [id number] [place] [address] Mar, [facility] [address] [id number] [place] [address] Mar, [facility] [place] [facility] [address] [id number] [place] [address] Mar, [facility] [place] [facility] [address] [id number] [place] [address] 79[address] Mar, [facility] [address] [id number] [place] [address] 11 Mar, 2014 [facility] [place] [facility] [address] [id number] [place] [address] 9866 11 Mar, 2014 [facility] [place] [facility] [address] [id number] [place] [address] 10 Mar, 2014 [facility] [place] [facility] [address] [id number] [place] [address] Mar, [facility] [place] [facility] [address] [id number] [place] [address]76 10 Mar, 2014 [facility] [place] [facility] [address] [id number] [place] [address] 7381 Mar, [facility] [place] [facility] [address] [id number] [place] [address] 1599 Mar, [facility] [place] [facility] [address] [id number] [place] [address] 0699 Mar, [facility] [place] [facility] [address] [id number] [place] [address] 8164 Mar, [facility] [place] [facility] [address] [id number] [place] [address]- 0111 Mar, [facility] [place] [facility] [address] [id number] [place] [address]- 1432 Jan, [facility] [place] [facility] [address] [id number] [place] [address]- [address] Jan, [facility] [place] [facility] [address] [id number] [place] [address]- 1279 Jan, [facility] [place] [facility] [address] [id number] [place] [address]- 2032 Jan, [facility] [place] [facility] [address] [id number] [place] [address]- 5948 Jan, [facility] [place] [facility] [address] [id number] [place] [address]- 7689 Jan, [facility] [place] [facility] [address] [id number] [place] [address]- 3293 Jan, [facility] [place] [facility] [address] [id number], [place] [address] 12[address] Jan, [facility] [place] [facility] [address] [id number] [place] [address]- 7924 Jan, [facility] [place] [facility] [address] [id number] [place] [address]- 3415 Jan, [facility] [place] [facility] [address] [id number] [place] [address]- 9186 Jan, [facility] [place] [facility] [address] [id number], [place] [address] Jan, [facility] [place] [facility] [address] [id number] [place] [address]- 1178 Jan, [facility] [place] [facility] [address] [id number] [place] [address]- 0644 Jan, [facility] [place] [facility] [address] [id number] [place] [address]- 2784 Jan, [facility] [place] [facility] [address] [id number] [place] [address]- 5888 Jan, [facility] [place] [facility] [address] [id number] [place] [address]- 7034 Jan, [facility] [place] [facility] [address] [id number] [place] [address]- 3850 Jan, [facility] [place] [facility] [address] [id number] [place] [address]- 0337 Jan, [facility] [place] [facility] [address] [id number] [place] [address]- 0266 Jan, [facility] [place] [facility] [address] [id number] [place] [address]- 3017 Dec, [facility] [place] [facility] [address] [id number] [place] [address]- 0629 Dec, [facility] [place] [facility] [address] [id number], [place] [address]- 3469 Dec, [facility] [place] [facility] [address] [id number], [place] [address]- 9652 Dec, [facility] [place] [facility] [address] [id number] [place] [address]- 3706 Dec, [facility] [place] [facility] [address] [id number], [place] [address]- 4738 Dec, [facility] [place] [facility] [address] [id number] [place] [address]- 7888 Dec, [facility] [place] [facility] [address] [id number] [place] [address]- 1643 10 Dec, 2013 [facility] [place] [facility] [address] [id number] [place] [address]- 0101 Dec, [facility] [place] [facility] [address] [id number] [place] [address]- 3267 Dec, [facility] [place] [facility] [address] [id number] [place] [address]- 3886 Dec, [facility] [place] [facility] [address] [id number] [place] [address]- 0279 Dec, [facility] [place] [facility] [address] [id number] [place] [address]- 4392 Dec, [facility] [place] [facility] [address] [id number] [place] [address]- 7516 Dec, [facility] [place] [facility] [address] [id number] [place] [address]- 5446 Dec, [facility] [place] [facility] [address] [id number] [place] [address]- 3261 22 Nov, 2013 [facility] [place] [facility] [address] [id number] [place] [address]- 9550 22 Nov, 2013 [facility] [place] [facility] [address] [id number] [place] [address]- 1415 19 Nov, 2013 [facility] [place] [facility] [address] [id number] [place] [address]- 2899 19 Nov, 2013 [facility] [place] [facility] [address] [id number] [place] [address]- 2542 13 Nov, 2013 [facility] [place] [facility] [address] [id number] [place] [address]- 2546 13 Nov, 2013 [facility] [place] [facility] [address] [id number] [place] [address]- 2548 10 Nov, 2013 [facility] [place] [facility] [address] [id number] [place] [address]- 0471 Nov, [facility] [place] [facility] [address] [id number] [place] [address]- 0309 Nov, 2013 [facility] [place] [facility] [address] [id number] [place] [address]- 6506 Nov, [facility] [place] [facility] [address] [id number] [place] [address]- 6024 Nov, [facility] [place] [facility] [address] [id number] [place] [address]- 6946 Nov, [facility] [place] [facility] [address] [id number] [place] [address]- 2667 Nov, [facility] [place] [facility] [address] [id number] [place] [address]- 7839 Oct, [facility] [place] [facility] [address] [id number] [place] [address]- 7701 Oct, [facility] [place] [facility] [address] [id number] [place] [address]- 6771 Oct, [facility] [place] [facility] [address] [id number] [place] [address]- 8856 Oct, [facility] [place] [facility] [address] [id number] [place] [address]- 0650 Oct, [facility] [place] [facility] [address] [id number] [place] [address]- 0168 Sep, [facility] [place] [facility] [address] [id number], [place] [address]- 5472 Sep, [facility] [place] [facility] [address] [id number] [place] [address]- 0593 Sep, [facility] [place] [facility] [address] [id number] [place] [address]- 8618 Sep, [facility] [place] [facility] [address] [id number] [place] [address]- 7551 Aug, [facility] [place] [facility] [address] [id number] [place] [address]- 5085 30 Aug, 2013 [facility] [place] [facility] [address] [id number] [place] [address]- 1889 Aug, [facility] [place] [facility] [address] [id number] [place] [address]- 4721 Aug, [facility] [place] [facility] [address] [id number] [place] [address]- 4117 Aug, [facility] [place] [facility] [address] [id number] [place] [address]- 7892 Aug, [facility] [place] [facility] [address] [id number] [place] [address]- 6234 Aug, [facility] [place] [facility] [address] [id number] [place] [address]- 8501 Aug, [facility] [place] [facility] [address] [id number] [place] [address]- 5569 Aug, [facility] [place] [facility] [address] [id number] [place] [address]- 3891 Aug, [facility] [place] [facility] [address] [id number] [place] [address]- 9933 Aug, [facility] [place] [facility] [address] [id number] [place] [address]- 4120 Aug, [facility] [place] [facility] [address] [id number] [place] [address]- 6330 Aug, [facility] [place] [facility] [address] [id number] [place] [address]- 2556 Aug, [facility] [place] [facility] [address] [id number] [place] [address]- 3743 Aug, [facility] [place] [facility] [address] [id number] [place] [address]- 4116 Aug, [facility] [place] [facility] [address] [id number] [place] [address]- 0509 12 Aug, 2013 [facility] [place] [facility] [address] [id number] [place] [address]- 5773 Aug, [facility] [place] [facility] [address] [id number] [place] [address]- 6922 Aug, [facility] [place] [facility] [address] [id number] [place] [address]- 4154 Aug, [facility] [place] [facility] [address] [id number] [place] [address]- 4652 Aug, [facility] [place] [facility] [address] [id number] [place] [address]- 3522 Aug, [facility] [place] [facility] [address] [id number] [place] [address]- 8036 Aug, [facility] [place] [facility] [address] [id number] [place] [address]- 5512 Aug, [facility] [place] [facility] [address] [id number] [place] [address]- 8976 July, [facility] [place] [facility] [address] [id number] [place] [address]- 1106 July, [facility] [place] [facility] [address] [id number] [place] [address]- 4862 July, [facility] [place] [facility] [address] [id number] [place] [address]- 5978 July, [facility] [place] [facility] [address] [id number] [place] [address]- 5864 July, [facility] [place] [facility] [address] [id number] [place] [address]- 1576 July, [facility] [place] [facility] [address] [id number] [place] [address]- 7516 Jun, [facility] [place] [facility] [address] [id number] [place] [address]- 6663 Jun, [facility] [place] [facility] [address] [id number] [place] [address]- 5251 Jun, [facility] [place] [facility] [address] [id number] [place] [address]- 0629 Jun, [facility] [place] [facility] [address] [id number] [place] [address]- 6794 Jun, [facility] [place] [facility] [address] [id number] [place] [address]- 7159 Jun, [facility] [place] [facility] [address] [id number] [place] [address]- 1556 Jun, [facility] [place] [facility] [address] [id number] [place] [address]- 4967 Jun, [facility] [place] [facility] [address] [id number] [place] [address]- 4210 Jun, [facility] [place] [facility] [address] [id number] [place] [address]- 0978 Jun, [facility] [place] [facility] [address] [id number] [place] [address]- 9717 Jun, [facility] [place] [facility] [address] [id number] [place] [address]- 5816 Jun, [facility] [place] [facility] [address] [id number] [place] [address]- 3544 Jun, [facility] [place] [facility] [address] [id number] [place] [address]- 0636 Jun, [facility] [place] [facility] [address] [id number] [place] [address]- 6972 Jun, [facility] [place] [facility] [address] [id number] [place] [address]- 9823 May, [facility] [place] [facility] [address] [id number] [place] [address]- 1815 May, [facility] [place] [facility] [address] [id number] [place] [address]- 1633 May, [facility] [place] [facility] [address] [id number] [place] [address]- 5313 May, [facility] [place] [facility] [address] [id number] [place] [address]- 9713 May, [facility] [place] [facility] [address] [id number] [place] May, [facility] [place] [facility] [address] [id number] [place] [address]- 3263 May, [facility] [place] [facility] [address] [id number] [place] [address]- 3779 May, [facility] [place] [facility] [address] [id number] [place] [address]- 9688 May, [facility] [place] [facility] [address] [id number] [place] [address]- 5131 May, [facility] [place] [facility] [address] [id number] [place] [address]- 7848 May, [facility] [place] [facility] [address] [id number] [place] [address]- 6650 May, [facility] [place] [facility] [address] [id number] [place] [address]- 6859 May, [facility] [place] [facility] [address] [id number] [place] [address]- 5828 May, [facility] [place] [facility] [address] [id number] [place] [address]- 4454 May, [facility] [place] [facility] [address] [id number] [place] [address]- 0002 May, [facility] [place] [facility] [address] [id number] [place] [address]- 8151 May, [facility] [place] [facility] [address] [id number] [place] [address]- 4320 Apr, [facility] [place] [facility] [address] [id number] [place] [address]- 5509 Apr, [facility] [place] [facility] [address] [id number] [place] [address]- 3190 Apr, [facility] [place] [facility] [address] [id number] [place] [address]- 4478 Apr, [facility] [place] [facility] [address] [id number] [place] [address]- 8464 Apr, [facility] [place] [facility] [address] [id number] [place] [address]- 8519 Apr, [facility] [place] [facility] [address] [id number] [place] [address]- 8971 Apr, [facility] [place] [facility] [address] [id number] [place] [address]- 8750 Apr, [facility] [place] [facility] [address] [id number] [place] [address]- 4850 Apr, [facility] [place] [facility] [address] [id number] [place] [address]- 0529 Apr, [facility] [place] [facility] [address] [id number] [place] [address]- 9166 Apr, [facility] [place] [facility] [address] [id number] [place] [address]- 9844 Apr, [facility] [place] [facility] [address] [id number], [place] [address]- 0366 Apr, [facility] [place] [facility] [address] [id number], [place] [address]- 1340 Apr, [facility] [place] [facility] [address] [id number] [place] [address]- 3633 Apr, [facility] [place] [facility] [address] [id number] [place] [address]- 5792 Apr, [facility] [place] [facility] [address] [id number] [place] [address]- 4804 Mar, [facility] [place] [facility] [address] [id number] [place] [address]- 3674 30 Mar, 2012 [facility] [address] [id number] [place] [address]- 2296 30 Mar, 2012 [facility] [address] [id number] [place]456 30 Mar, 2012 [facility] [address] [id number] [place] [address]- 0235 18 Mar, 2012 [facility] [address] [id number] [place] [address]- 9073 18 Mar, 2012 [facility] [address] [id number] [place] 1714 18 Mar, 2013 [facility] [address] [id number] [place] [address]- 0457 18 Mar, 2013 [facility] [address] [id number] [place] [address]- 5739 17 Mar, 2013 [facility] [address] [id number] [place] [address]- 7275 17 Mar, 2013 [facility] [address] [id number] [place] [address]- 7004 05 Mar, 2013 [facility] [address] [id number] [place] [address]- 2791 05 Mar, 2013 [facility] [address] [id number] [place] [address]- 0865 04 Mar, 2013 [facility] [place] [facility] [address] [id number] [place] [address]- 6716 04 Mar, 2013 [facility] [place] [facility] [address] [id number] [place] [address]- 1618 04 Mar, 2013 [facility] [place] [facility] [address] [id number] [place] [address]- 3115 04 Mar, 2013 [facility] [place] [facility] [address] [id number] [place] [address]- 6048 02 Mar, 2013 [facility] [place] [facility] [address] [id number] [place] [address]- 9199 Mar, [facility] [place] [facility] [address] [id number] [place] [address]- 9216 Jan, [facility] [place] [facility] [address] [id number] [place] [address]- 4671 Jan, [facility] [place] [facility] [address] [id number] [place] [address]- 6740 Jan, [facility] [place] [facility] [address] [id number] [place] [address]- 3833 Jan, [facility] [place] [facility] [address] [id number] [place] [address]- 6129 Nov, [facility] [place] [facility] [address] [id number] [place] [address]- 1029 Nov, [facility] [place] [facility] [address] [id number] [place] [address]- 4902 Nov, [facility] [place] [facility] [address] [id number] [place] [address]- 4275 Nov, [facility] [place] [facility] [address] [id number] [place] [address]- 3028 Oct, [facility] [place] [facility] [address] [id number] [place] [address]- 6264 Oct, [facility] [place] [facility] [address] [id number] [place] [address]- 9478 Oct, [facility] [place] [facility] [address] [id number] [place] [address]- 5841 Oct, [facility] [place] [facility] [address] [id number] [place] [address]- 1676 Sep, [facility] [place] [facility] [address] [id number] [place] [address]- 1254 Sep, [facility] [place] [facility] [address] [id number] [place] [address]- 3396 Sep, [facility] [address] [id number] [place] [address]- 3580 Sep, [facility] [place] [facility] [address] [id number] [place] [address]- 8188 Sep, [facility] [place] [facility] [address] [id number] [place] [address]- 7752 Sep, [facility] [place] [facility] [address] [id number] [place] [address]- 4971 Sep, [facility] [place] [facility] [address] [id number] [place] [address]- 9967 Sep, [facility] [place] [facility] [address] [id number] [place] [address]- 7696 Sep, [facility] [place] [facility] [address] [id number] [place] [address]- 9731 Aug, [facility] [place] [facility] [address] [id number] [place] [address]- 1182 Aug, [facility] [place] [facility] [address] [id number] [place] [address]- 7305 Aug, [facility] [place] [facility] [address] [id number] [place] [address]- 0670 Aug, [facility] [place] [facility] [address] [id number] [place] [address]- 9181 July, [facility] [place] [facility] [address] [id number] [place] [address]- 9586 July, [facility] [place] [facility] [address] [id number] [place] [address]- 4954 July, [facility] [place] [facility] [address] [id number] [place] [address]- 9904 July, [facility] [place] [facility] [address] [id number] [place] [address]- 5[address] July, [facility] [place] [facility] [address] [id number] [address] July, [facility] [address] [id number] [address] July, [facility] [id number] [address] Jun, [facility] [id number], [place] [address] May, [facility] [id number], [place] [address] May, [facility] [id number], [place] [address] May, [facility] [id number], [place] [address] May, [facility] [id number], [place] [address] May, [facility] [address] [id number], [place] [address] May, [facility] [id number], [place] [address] May, [facility] [address] [id number], [place] [address] May, IMMUNIZATIONS No Known Immunizations SOCIAL HISTORY Never Assessed REASON FOR VISIT PLAN OF CARE VITAL SIGNS MEDICATIONS Unknown [...]
[2017-12-18 20:14] LABS: ALBUMIN 3.8 GM/DL (3.2-4.5); BILIRUBIN,TOTAL 0.5 MG/DL (0.1-1.0); CREATININE SERUM 8.7 MG/DL (0.60-1.30); POTASSIUM 6.3 MMOL/L (3.6-5.0); TOTAL PROTEIN 7.1 GM/DL (6.4-8.2)
--- OUTSIDE RECORDS SUMMARY | 2017-12-18 20:14 | XMS REPORT ---
Author Author MCKENNA HEBERT Organization [facility] Address [address] [place] [address] Care Team Providers Care Sales Center Associate Name Role Phone MCKENNA HEBERT Unavailable PROBLEMS Type Condition ICD9-CM Code CRM49-VS Code Onset Dates Condition Status SNOMED Code Problem Diabetes type 2, controlled E11.9 Active 80811106 Problem Neuropathy G62.9 Active 938610250 Problem Renal failure N19 Active 51671958 Problem Cellulitis of right lower extremity L03.115 Active 583353378 Problem Angina pectoris I20.9 Active 031120123 Problem Seasonal allergic rhinitis due to other allergic trigger J30.89 Active 134852704 Problem Intra-dialytic hypotension I95.3 Active 301658040 Problem Amput below knee, unilat S88.119A Active 16505727 Problem Chronic congestive heart failure, unspecified heart failure type I50.9 Active 69104022 Problem Chronic congestive heart failure, unspecified congestive heart failure type I50.9 Active 74214532 ALLERGIES Substance Reaction Event Type Date Status Fluarix Unknown Drug Allergy Oct, Active All Tape Unknown Non Drug Allergy Oct, Active ENCOUNTERS Encounter Location Date Diagnosis [place] [address], [place] [address] July, [facility] [address], [place] [address] Jun, Diabetes type 2, controlled E11.9 [facility] [address], [place] [address] Jun, [facility] [address] [place] [address] 62899- 5136 May, [facility] [address], [place] [address] 4817 May, [facility] [address], [place] [address] 7129 May, [facility] [id number] [place] [address] 87956- 5361 May, Chronic congestive heart failure, unspecified congestive heart failure type I50.9 [facility] [id number] [place] [address] 59721- 1154 May, Diabetes type 2, controlled E11.9 ; BMI 50.0-59.9, adult Z68.43 ; Chronic congestive heart failure, unspecified heart failure type I50.9 ; Angina pectoris I20.9 ; Seasonal allergic rhinitis due to other allergic trigger J30.89 and Renal failure N19 [facility] [address] [address] May, [facility] [id number] [place] [address] 27223- 5796 May, [facility] [id number] [place] [address] 86456- 7169 May, [facility] [id number] [place] [address] 52938- 3539 May, [facility] [id number] [place] [address] 91791- 4515 May, [facility] [address] [place] [address] 06316- 0974 Apr, BMI 50.0-59.9, adult Z68.43 [facility] [id number] [place] [address] 27035- 4997 Apr, BMI 50.0-59.9, adult Z68.43 ; Post-procedural fever R50.82 and Bronchitis J40 [facility] [address] [place] [address] 81611- 5599 Apr, Chronic congestive heart failure, unspecified congestive heart failure type I50.9 [facility] [id number] [place] [address] 96503- 1874 Jan, [facility] [address] [facility] [id number] [place] [address]- 27[address] Jan, Diabetes type 2, controlled E11.9 [facility] [address] [facility] [id number] [place] [address]- 4[address] Jan, Neuropathy G62.9 [facility] [address] [facility] [id number] [place] [address], [place] [address]- 1208 Jan, [facility] [address] [facility] [id number] [place] [address]- 7590 Jan, [facility] [address] [facility] [id number] [place] [address], [place] [address]- 2840 Jan, [facility] [id number], [place] [address]- 5738 Jan, [facility] [id number], [place] [address]- 7858 Jan, [facility] [id number], [place] [address]- 7271 Dec, [facility] [id number], [place] [address]- 3058 Dec, [facility] [id number], [place] [address]- 0498 Dec, Diabetes type 2, controlled E11.9 [facility] [id number], [place] [address]- 6637 Dec, [facility] [id number], [place] [address]- 0248 Dec, [facility] [id number], [place] [address]- 8290 Dec, Chronic congestive heart failure, unspecified congestive heart failure type I50.9 [facility] [address] [facility] [id number], [place] [address]- 3728 Dec, [facility] [address] [facility] [id number], [place] [address]- 5644 Dec, [facility] [address] [facility] [id number], [place] [address]- 8505 Nov, Chronic congestive heart failure, unspecified congestive heart failure type I50.9 [facility] [address] [facility] [id number] [place] [address]- 0342 Nov, Chronic congestive heart failure, unspecified congestive heart failure type I50.9 [facility] [address] [facility] [id number] [place] [address]- 0622 Nov, [facility] [address] [facility] [id number] [place] [address]- 6923 Oct, [facility] [address], [place] [address]- 5532 Oct, [facility] [address], [place] [address]- 1499 Oct, Chronic congestive heart failure, unspecified congestive heart failure type I50.9 [facility] [address] [facility] [id number], [place] [address]- 9[address] Oct, [facility] [address], [place] [address]- 4597 Oct, Pneumonia of both lungs due to infectious organism, unspecified part of lung J18.9 [facility] [address], [place] [address]- 9759 Oct, [facility] [id number], [place] [address]- 3881 Oct, Diabetes type 2, controlled E11.9 [facility] [id number], [place] [address]- 4623 Oct, Diabetes type 2, controlled E11.9 [facility] [id number], [place] [address]- 3639 Sep, [facility] [address], [place] [address]- 4672 Sep, Neuropathy G62.9 [facility] [id number] [place] [address] 25011- 7586 Aug, Intra-dialytic hypotension I95.3 [facility] [id number] [place] [address], [place] [address] 2546 July, [facility] [id number] [place] [address] 86364 2546 July, [facility] [id number] [place] [address], [place] [address]- 8416 July, [facility] [id number] [place] [address] 95735- 7813 July, Amput below knee, unilat S88.119A [facility] [id number] [place] [address] 04596- 0206 May, [facility] [id number] [place] [address] 43968- 7589 May, Neuropathy G62.9 [facility] [id number] [place] [address] 21937- 2846 May, [facility] [address], [place] [address]- 3726 May, [facility] [id number] [place] [address] 35626 2546 May, [facility] [address] [place] [address] 12352 2542 May, [facility] [id number] [place] [address] 13151- 2166 May, Neuropathy G62.9 [facility] [address], [place] [address]- 6356 Apr, [facility] [id number] [place] [address] 63329- 6671 Apr, [facility] [address] [facility] [id number] [place] [address]- 3357 Apr, Diabetes type 2, controlled E11.9 and Renal failure N19 [facility] [address] [id number] [place] [address] Apr, [facility] [address] [facility] [id number] [place] [address], [place] [address]- 3359 Apr, [facility] [address] [facility] [id number] [place] [address]- 5062 Mar, [facility] [address] [facility] [id number] [place] [address], [place] [address]- 1345 Mar, [facility] [id number] [place] [place] [address]- 6253 Mar, [facility] [id number] [place] [address], [place] [address]- 8347 Mar, [facility] [address] [facility] [id number] [place] [address]- 5824 Mar, [facility] [address] [place] [place] [address]- 5216 Jan, Localized edema R60.0 [facility] [id number] [place] [place] [address]- 4763 Jan, [facility] [address] [facility] [id number], [place] [address]- 2376 Jan, [facility] [address] [facility] [id number] [place] [address]- 4592 Jan, [facility] [id number] [place] [place] [address]- 2738 Jan, [facility] [id number] [place] [place] [address]- 2718 Jan, [facility] [address], [place] [address]- 0374 Jan, [facility] [address] [place] [address] 37652- 3583 Dec, Diabetes type 2, controlled E11.9 and Chronic nonintractable headache, unspecified headache type R51 [facility] [address] [place] [address] 36486- 7130 Dec, [facility] [id number] [place] [address] 01902- 8313 Dec, [facility] [id number] [place] [address] 98279- 2343 Nov, [facility] [id number] [place] [address] 09910- 3296 Nov, [facility] [id number] [place] [address] 55888- 1260 Oct, [facility] [id number] [place] [address] 75090- 6156 Oct, Migraine without status migrainosus, not intractable, unspecified migraine type G43.909 [facility] [id number] [place] [address] 18012- 9820 Oct, [facility] [address] [place] [address] 11050- 7330 Sep, Amput below knee, unilat S88.119A and Neuropathy G62.9 [facility] [address] [place] [address] 22013- 5047 Sep, [facility] [id number] [place] [address] 47456- 2841 Sep, [facility] [id number] [place] [address] 98666- 0091 Sep, [facility] [address] [place] [address] 78249- 4145 Aug, [facility] [id number] [place] [address]- 5769 Aug, [facility] [address] [facility] [id number] [place] [address]- 1386 Aug, Diabetes type 2, controlled E11.9 [facility] [address] [facility] [id number] [place] [address] 2546 Aug, [facility] [address] [facility] [id number] [place] [address]- 7916 Jun, Diabetes type 2, controlled E11.9 and Neuropathy G62.9 [facility] [address] [facility] [id number] [place] [address]- 8746 14 Jul, 2015 [facility] [address] [facility] [id number] [place] [address]- 4960 Jun, [facility] [id number] [place] [place] [address]- 1664 Jun, [facility] [address] [facility] [id number] [place] [address]- 1093 Jun, [facility] [address] [facility] [id number] [place] [address]- 9084 May, [facility] [address] [facility] [id number] [place] [address]- 3288 May, Diabetes type 2, controlled E11.9 [facility] [address] [facility] [id number] [place] [address]- 9595 May, [facility] [address] [facility] [id number], [place] [address]- 2547 May, [facility] [id number] [place] [place] [address]- 7864 May, [facility] [address] [facility] [id number] [place] 5016 May, [facility] [id number], [place] [address]- 1952 May, [facility] [address], [place] [address]- 9622 May, [facility] [address] [place] [address] 07391- 5447 May, [facility] [address], [place] [address]- 2990 May, COPD (chronic obstructive pulmonary disease) J44.9 [facility] [address], [place] [address]- 5424 May, [facility] [address] [place] [address] 63341- 9347 May, [facility] [address] [place] [address] 53805- 8925 May, [facility] [address] [place] [address] 15889- 1571 May, [facility] [address], [place] [address]- 7751 May, [facility] [address] [place] [address] 53363- 1110 May, Renal failure N19 and Pneumonia, organism unspecified, unspecified laterality, unspecified part of lung J18.9 [facility] [address], [place] [address]- 6993 Apr, [facility] [address], [place] [address]- 0183 Apr, [facility] [address], [place] [address]- 3028 Apr, [facility] [address], [place] [address]- 5175 Apr, Diabetes mellitus 250.00 [facility] [address], [place] [address]- 1372 14 Apr, 2015 [facility] [place] [facility] [address] [id number] [place] [address]- 7647 14 Apr, 2015 [facility] [place] [facility] [address] [id number] [place] [address]- 5561 13 Apr, 2015 [facility] [place] [facility] [address] [id number] [place] [address]- 5292 07 Apr, 2015 [facility] [place] [facility] [id number] [place] [address], [place] [address]- 7027 31 Mar, 2015 [facility] [place] [facility] [address] [id number] [place] [address]- 1258 28 Mar, 2015 [facility] [place] [facility] [address] [id number] [place] [address], [place] [address]- 7219 23 Mar, 2015 [facility] [place] [facility] [id number] [place] [place] [address]- 9063 16 Mar, 2015 Renal failure N19 [facility] [place] [facility] [address] [facility] [id number] [place] [address]- 1500 14 Mar, 2015 [facility] [place] [facility] [address] [facility] [id number] [place] [address]- 5215 Mar, [facility] [place] [facility] [id number] [place] [place] [address]- 4812 04 Mar, 2015 [facility] [place] [facility] [id number] [place] [place] [address]- 0740 24 Jan, 2015 [facility] [place] [facility] [address] [id number] [place] [address]- 5483 18 Jan, 2015 [facility] [place] [facility] [address] [id number] [place] [address]- 9902 17 Jan, 2015 [facility] [place] [facility] [address] [id number] [place] [address]- 4833 13 Jan, 2015 [facility] [place] [facility] [address] [facility] [id number] [place] [address]- 0716 20 Dec, 2014 [facility] [place] [facility] [address] [facility] [id number], [place] [address]- 7723 Dec, [facility] [id number], [place] [address]- 7434 Dec, [facility] [address] [facility] [id number], [place] [address]- 3640 Nov, [facility] [address], [place] [address]- 3638 Nov, [facility] [address] [facility] [id number] [place] [address] 84087- 6364 Nov, [facility] [address] [facility] [id number] [place] [address] 25342- 5752 Oct, [facility] [address], [place] [address]- 3564 Oct, [facility] [address] [place] [address] 73724- 1338 Oct, Renal failure 586 and Obesity 278.00 [facility] [address], [place] [address]- 7427 Oct, [facility] [address] [place] [address] 67231- 3576 Oct, [facility] [address], [place] [address]- 7220 Oct, [facility] [address], [place] [address]- 4363 Sep, [facility] [address], [place] [address]- 7944 Sep, [facility] [address], [place] [address]- 1480 Sep, Diabetes mellitus 250.00 and Congestive heart failure, unspecified 428.0 [facility] [id number], [place] [address]- 9103 Aug, [facility] [address] [place] [address], [place] [address]- 8736 Aug, [facility] [address] [id number] [place] [address]- 6126 Aug, [facility] [address] [id number] [place] [address]- 5606 July, [facility] [address] [id number] [place] [address]- 4620 July, [facility] [place] [facility] [address] [id number] [place] [address]- 7238 July, Heart murmur, systolic 785.2 [facility] [address] [id number] [place] [address]- 8666 July, [facility] [address] [id number] [place] [address]- 8417 July, [facility] [address] [id number] [place] [address]- 5124 Jun, [facility] [place] [facility] [address] [id number] [place] [address]- 6326 Jun, [facility] [place] [facility] [address] [id number] [place] [address]- 7315 May, [facility] [place] [facility] [address] [id number] [place] [address]- 2315 23 May, 2014 [facility] [place] [facility] [address] [id number] [place] [address]- 8007 18 May, 2014 [facility] [place] [facility] [address] [id number] [place] [address]- 4481 18 May, 2014 [facility] [place] [facility] [address] [id number] [place] [address]- 3737 16 May, 2014 [facility] [place] [facility] [address] [id number] [place] [address]- 9756 16 May, 2014 [facility] [place] [facility] [address] [id number] [place] [address]- 0004 May, 2014 [facility] [place] [facility] [address] [id number] [place] [address]- 3660 May, [facility] [place] [facility] [address] [facility] [id number] [place] [address]- 9238 May, 2014 [facility] [place] [facility] [address] [facility] [id number] [place] [address]- 9456 May, 2014 [facility] [place] [facility] [address] [facility] [id number] [place] [address]- 0128 May, 2014 [facility] [place] [facility] [address] [facility] [id number] [place] [address]- 7200 May, 2014 [facility] [place] [facility] [address] [facility] [id number] [place] [address]- 4106 May, 2014 [facility] [place] [facility] [address] [facility] [id number] [place] [address]- 8617 May, 2014 [facility] [place] [facility] [address] [facility] [id number] [place] [address]- 5064 May, 2014 [facility] [place] [facility] [address] [facility] [id number] [place] [address]- 7121 May, 2014 [facility] [place] [facility] [address] [facility] [id number] [place] [address]- 1600 May, 2014 [facility] [place] [facility] [address] [facility] [id number] [place] [address]- 7384 May, 2014 [facility] [place] [facility] [address] [facility] [id number] [place] [address]- 9596 May, 2014 [facility] [place] [facility] [address] [facility] [id number] [place] [address]- 5053 May, 2014 [facility] [place] [facility] [address] [facility] [id number] [place] [address]- 9031 16 May, 2014 [facility] [place] [facility] [address] [facility] [id number], [place] [address] 16 May, 2014 [facility] [place] [facility] [address] [id number] [place] [address] May, [facility] [place] [facility] [address] [id number] [place] [address] 1996 May, [facility] [place] [facility] [address] [id number] [place] [address] May, [facility] [place] [facility] [address] [id number] [place] [address] May, [facility] [place] [facility] [address] [id number] [place] [address] Apr, [facility] [place] [facility] [address] [id number] [place] [address] Apr, [facility] [place] [facility] [address] [id number] [place] [address] Apr, [facility] [place] [facility] [address] [id number] [place] [address] Apr, [facility] [place] [facility] [address] [id number] [place] [address] Apr, [facility] [place] [facility] [address] [id number] [place] [address] Apr, [facility] [place] [facility] [address] [id number] [place] [address] Apr, [facility] [place] [facility] [address] [id number] [place] [address] Apr, [facility] [place] [facility] [address] [id number] [place] [address] Mar, [facility] [place] [facility] [address] [id number] [place] [address] Mar, [facility] [place] [facility] [address] [id number] [place] [address] Mar, [facility] [place] [facility] [address] [id number], [place] [address] Mar, [facility] [place] [facility] [address] [id number] [place] [address] Mar, [facility] [place] [facility] [address] [id number] [place] [address] Mar, [facility] [place] [facility] [address] [id number] [place] [address] 18 Mar, 2014 [facility] [place] [facility] [address] [id number] [place] [address] Mar, [facility] [place] [facility] [address] [id number] [place] [address] Mar, [facility] [place] [facility] [address] [id number] [place] [address] Mar, [facility] [place] [facility] [address] [id number] [place] [address] Mar, [facility] [place] [facility] [address] [id number] [place] [address] Mar, [facility] [place] [facility] [address] [id number] [place] [address] Mar, [facility] [place] [facility] [address] [id number] [place] [address] Mar, [facility] [place] [facility] [address] [id number] [place] [address] 10 Mar, 2014 [facility] [place] [facility] [address] [id number] [place] [address] 10 Mar, 2014 [facility] [place] [facility] [address] [id number] [place] [address] Mar, [facility] [place] [facility] [address] [id number] [place] [address] 10 Mar, 2014 [facility] [place] [facility] [address] [id number] [place] [address] 5[address] Mar, [facility] [place] [facility] [address] [id number] [place] [address] 9027 Mar, [facility] [place] [facility] [address] [id number] [place] [address] 8936 Mar, [facility] [place] [facility] [address] [id number] [place] [address] 9424 Mar, [facility] [place] [facility] [address] [id number] [place] [address] 2797 Jan, [facility] [place] [facility] [address] [id number] [place] [address]- 5945 Jan, [facility] [place] [facility] [address] [id number] [place] [address]- 6008 Jan, [facility] [place] [facility] [address] [id number] [place] [address] 5619 Jan, [facility] [place] [facility] [address] [id number] [place] [address] 1899 Jan, [facility] [place] [facility] [address] [id number] [place] [address] 7772 Jan, [facility] [place] [facility] [address] [id number] [place] [address] 1316 Jan, [facility] [place] [facility] [address] [id number] [place] [address]- 6835 Jan, [facility] [place] [facility] [address] [id number] [place] [address]- 3167 Jan, [facility] [place] [facility] [address] [id number] [place] [address]- 0435 Jan, [facility] [place] [facility] [address] [id number] [place] [address]- 0755 Jan, [facility] [place] [facility] [address] [id number] [place] [address] 3412 Jan, [facility] [place] [facility] [address] [id number] [place] [address] 9934 Jan, [facility] [place] [facility] [address] [id number] [place] [address]- 1806 Jan, [facility] [place] [facility] [address] [id number] [place] [address]- 8373 Jan, [facility] [place] [facility] [address] [id number] [place] [address]- 0616 Jan, [facility] [place] [facility] [address] [id number] [place] [address]- 0991 Jan, [facility] [place] [facility] [address] [id number] [place] [address]- 0386 Jan, [facility] [place] [facility] [address] [id number] [place] [address]- 8486 Jan, [facility] [place] [facility] [address] [id number] [place] [address]- 4068 Jan, [facility] [place] [facility] [address] [id number] [place] [address]- 6259 Dec, [facility] [place] [facility] [address] [id number] [place] [address]- 7428 Dec, [facility] [place] [facility] [address] [id number] [place] [address]- 6841 Dec, [facility] [place] [facility] [address] [id number], [place] [address] 5831 Dec, [facility] [place] [facility] [address] [id number], [place] [address] 7938 Dec, [facility] [place] [facility] [address] [id number] [place] [address]- 3159 Dec, [facility] [place] [facility] [address] [id number], [place] [address] 9138 Dec, [facility] [place] [facility] [address] [id number], [place] [address] 4948 Dec, [facility] [place] [facility] [address] [id number] [place] [address]- 4934 10 Dec, 2013 [facility] [place] [facility] [address] [id number] [place] [address]- 2121 08 Dec, 2013 [facility] [place] [facility] [address] [id number] [place] [address]- 8651 Dec, [facility] [place] [facility] [address] [id number] [place] [address]- 2907 Dec, [facility] [place] [facility] [address] [id number] [place] [address]- 7590 Dec, [facility] [place] [facility] [address] [id number] [place] [address]- 3628 Dec, [facility] [place] [facility] [address] [id number] [place] [address]- 1661 Dec, [facility] [place] [facility] [address] [id number] [place] [address]- 2027 22 Nov, 2013 [facility] [place] [facility] [address] [id number] [place] [address]- 2992 22 Nov, 2013 [facility] [place] [facility] [address] [id number] [place] [address] 2541 19 Nov, 2013 [facility] [place] [facility] [address] [id number] [place] [address]- 2544 19 Sep, 2013 [facility] [place] [facility] [address] [id number] [place] [address] 2546 13 Nov, 2013 [facility] [place] [facility] [address] [id number] [place] [address]- 254 13 Sep, 2013 [facility] [place] [facility] [address] [id number] [place] [address] 2543 10 Nov, 2013 [facility] [place] [facility] [address] [id number] [place] [address]- 2546 10 Nov, 2013 [facility] [place] [facility] [address] [id number] [place] [address]- 2547 08 Sep, 2013 [facility] [place] [facility] [address] [id number] [place] [address]- 6133 Nov, 2013 [facility] [place] [facility] [address] [id number] [place] [address]- 3830 Nov, [facility] [place] [facility] [address] [id number] [place] [address] Nov, [facility] [place] [facility] [address] [id number] [place] [address]- 8310 Nov, [facility] [place] [facility] [address] [id number] [place] [address]- 5661 Oct, [facility] [place] [facility] [address] [id number] [place] [address]- 9214 Oct, [facility] [place] [facility] [address] [id number] [place] [address]- 2500 Oct, [facility] [place] [facility] [address] [id number] [place] [address]- 6884 Oct, [facility] [place] [facility] [address] [id number] [place] [address]- 5322 Oct, [facility] [place] [facility] [address] [id number] [place] [address]- 5045 Sep, [facility] [place] [facility] [address] [id number] [place] [address]- 9979 Sep, [facility] [place] [facility] [address] [id number] [place] [address]- 0151 Sep, [facility] [place] [facility] [address] [id number] [place] [address]- 7331 Sep, [facility] [place] [facility] [address] [id number] [place] [address]- 8749 Aug, [facility] [place] [facility] [address] [id number] [place] [address]- 5392 Aug, [facility] [place] [facility] [address] [id number] [place] [address]- 7036 Aug, [facility] [place] [facility] [address] [id number] [place] [address]- 1852 Aug, [facility] [place] [facility] [address] [id number] [place] [address]- 2826 Aug, [facility] [place] [facility] [address] [id number] [place] [address]- 1571 Aug, [facility] [place] [facility] [address] [id number] [place] [address]- 6327 Aug, [facility] [place] [facility] [address] [id number] [place] [address]- 5780 Aug, [facility] [place] [facility] [address] [id number] [place] [address]- 9173 Aug, [facility] [place] [facility] [address] [id number] [place] [address]- 0367 Aug, [facility] [place] [facility] [address] [id number] [place] [address]- 4630 Aug, [facility] [place] [facility] [address] [id number] [place] [address]- 3958 Aug, [facility] [place] [facility] [address] [id number] [place] [address]- 3012 Aug, [facility] [place] [facility] [address] [id number] [place] [address]- 4886 Aug, [facility] [place] [facility] [address] [id number] [place] [address]- 2016 Aug, [facility] [place] [facility] [address] [id number] [place] [address]- 0554 Aug, [facility] [place] [facility] [address] [id number] [place] [address]- 1070 Aug, [facility] [place] [facility] [address] [id number] [place] [address]- 9463 Aug, [facility] [place] [facility] [address] [id number] [place] [address]- 9406 Aug, [facility] [place] [facility] [address] [id number] [place] [address]- 0963 Aug, [facility] [place] [facility] [address] [id number] [place] [address]- 3693 Aug, [facility] [place] [facility] [address] [id number] [place] [address]- 7406 Aug, [facility] [place] [facility] [address] [id number] [place] [address]- 6370 Aug, [facility] [place] [facility] [address] [id number] [place] [address]- 8599 Aug, [facility] [place] [facility] [address] [id number] [place] [address]- 3970 July, [facility] [place] [facility] [address] [id number] [place] [address]- 3686 July, [facility] [place] [facility] [address] [id number] [place] [address]- 9017 July, [facility] [place] [facility] [address] [id number] [place] [address]- 3990 July, [facility] [place] [facility] [address] [id number] [place] [address]- 8368 July, [facility] [place] [facility] [address] [id number] [place] [address]- 4242 July, [facility] [place] [facility] [address] [id number] [place] [address]- 0246 Jun, [facility] [place] [facility] [address] [id number] [place] [address]- 0117 Jun, [facility] [place] [facility] [address] [id number] [place] [address]- 7343 Jun, [facility] [place] [facility] [address] [id number] [place] [address]- 2751 Jun, [facility] [place] [facility] [address] [id number] [place] [address]- 6395 Jun, [facility] [place] [facility] [address] [id number] [place] [address]- 1865 Jun, [facility] [place] [facility] [address] [id number] [place] [address]- 5462 Jun, [facility] [place] [facility] [address] [id number] [place] [address]- 2032 Jun, [facility] [place] [facility] [address] [id number] [place] [address]- 6133 Jun, [facility] [place] [facility] [address] [id number] [place] [address]- 0505 Jun, [facility] [place] [facility] [address] [id number] [place] [address]- 6104 Jun, [facility] [place] [facility] [address] [id number] [place] [address]- 1680 Jun, [facility] [place] [facility] [address] [id number] [place] [address]- 7633 Jun, [facility] [place] [facility] [address] [id number] [place] [address]- 1622 Jun, [facility] [place] [facility] [address] [id number] [place] [address]- 0702 Jun, [facility] [place] [facility] [address] [id number], [place] [address]- 9133 May, [facility] [place] [facility] [address] [id number] [place] [address]- 3094 May, [facility] [place] [facility] [address] [id number] [place] [address]- 4011 May, [facility] [place] [facility] [address] [id number] [place] [address]- 0151 May, [facility] [place] [facility] [address] [id number], [place] [address]- 7582 May, [facility] [place] [facility] [address] [id number] [place] 7187 May, [facility] [place] [facility] [address] [id number] [place] [address]- 9759 May, [facility] [place] [facility] [address] [facility] [id number] [place] [address]- 1692 May, [facility] [place] [facility] [address] [id number] [place] [address]- 8607 May, [facility] [place] [facility] [address] [id number] [place] [address]- 8398 May, [facility] [place] [facility] [address] [id number] [place] 7984 May, [facility] [place] [facility] [address] [facility] [id number] [place] [address]- 5005 May, [facility] [place] [facility] [address] [id number] [place] [address]- 4944 May, [facility] [place] [facility] [address] [id number] [place] [address]- 1366 May, [facility] [place] [facility] [address] [facility] [id number] [place] [address]- 6932 May, [facility] [place] [facility] [address] [facility] [id number] [place] [address]- 8432 May, [facility] [place] [facility] [address] [facility] [id number] [place] [address]- 7986 May, [facility] [place] [facility] [address] [id number] [place] 8860 Apr, [facility] [place] [facility] [address] [facility] [id number] [place] [address]- 2659 Apr, [facility] [place] [facility] [address] [id number] [place] [address]- 5060 Apr, [facility] [place] [facility] [address] [id number] [place] [address]- 3013 Apr, [facility] [place] [facility] [address] [id number] [place] [address]- 7156 Apr, [facility] [place] [facility] [address] [id number] [place] [address]- 7288 Apr, [facility] [place] [facility] [address] [id number] [place] [address]- 8435 Apr, [facility] [address] [id number] [place] [address]- 2534 Apr, [facility] [place] [facility] [address] [id number] [place] [address]- 4465 Apr, [facility] [place] [facility] [address] [id number] [place] [address]- 6508 Apr, [facility] [place] [facility] [address] [id number] [place] [address]- 6997 Apr, [facility] [place] [facility] [address] [id number] [place] [address]- 1061 Apr, [facility] [place] [facility] [address] [id number] [place] [address]- 1093 Apr, [facility] [place] [facility] [address] [id number] [place] [address]- 6908 Apr, [facility] [place] [facility] [address] [id number] [place] [address]- 8539 Apr, [facility] [place] [facility] [address] [id number] [place] [address]- 4792 Apr, [facility] [place] [facility] [address] [id number] [place] [address]- 0716 Mar, [facility] [place] [facility] [address] [id number] [place] [address]- 8580 Mar, [facility] [place] [facility] [address] [id number] [place] [address]- 1420 30 Mar, 2012 [facility] [address] [id number] [place] [address]- 4543 30 Mar, 2012 [facility] [place] [facility] [address] [id number] [place] [address]- 1986 18 Mar, 2013 [facility] [place] [facility] [address] [id number] [place] [address]- 6434 18 Mar, 2013 [facility] [place] [facility] [address] [id number] [place] [address]- 1706 18 Mar, 2013 [facility] [address] [id number] [place] [address]- 6895 18 Mar, 2013 [facility] [address] [id number] [place] [address]- 4085 17 Mar, 2013 [facility] [address] [id number] [place] [address]- 9964 17 Mar, 2013 [facility] [place] [facility] [address] [id number] [place] [address]- 1291 05 Mar, 2013 [facility] [address] [id number] [place] [address]- 3070 05 Mar, 2013 [facility] [place] [facility] [address] [id number] [place] [address]- 5454 04 Mar, 2013 [facility] [place] [facility] [address] [id number], [place] [address]- 0788 04 Mar, 2013 [facility] [place] [facility] [address] [id number], [place] [address]- 7208 04 Mar, 2013 [facility] [place] [facility] [address] [id number] [place] [address]- 9120 Mar, [facility] [place] [facility] [address] [id number] [place] [address]- 6802 02 Mar, 2013 [facility] [place] [facility] [address] [id number] [place] [address]- 7182 02 Mar, 2013 [facility] [place] [facility] [address] [id number] [place] [address] 2543 Jan, [facility] [address] [id number] [place] [address]- 7097 Jan, [facility] [place] [facility] [address] [id number] [place] [address]- 9328 Jan, [facility] [address] [id number] [place] [address]- 6012 Jan, [facility] [place] [facility] [address] [id number] [place] [address]- 7626 Nov, [facility] [address] [id number] [place] [address]- 4193 Nov, [facility] [place] [facility] [address] [id number] [place] [address]- 6130 Nov, [facility] [address] [id number] [place] [address]- 1578 Nov, [facility] [address] [id number] [place] [address]- 8035 Oct, [facility] [place] [facility] [address] [id number] [place] [address]- 7184 Oct, [facility] [address] [id number] [place] [address]- 7279 Oct, [facility] [place] [facility] [address] [id number] [place] [address]- 8414 Oct, [facility] [place] [facility] [address] [id number] [place] [address]- 7994 Sep, [facility] [place] [facility] [address] [id number] [place] [address]- 1783 Sep, [facility] [place] [facility] [address] [id number] [place] [address]- 2546 Sep, [facility] [place] [facility] [address] [id number] [place] [address]- 7086 Sep, [facility] [address] [id number] [place] [address]- 6231 Sep, [facility] [place] [facility] [address] [id number] [place] [address]- 9865 Sep, [facility] [place] [facility] [address] [id number] [place] [address]- 7219 Sep, [facility] [place] [facility] [address] [id number] [place] [address]- 6355 Sep, [facility] [place] [facility] [address] [id number] [place] [address]- 7553 Sep, [facility] [place] [facility] [address] [id number] [place] [address]- 3124 Aug, [facility] [place] [facility] [address] [id number] [place] [address]- 8209 Aug, [facility] [place] [facility] [address] [id number] [place] [address]- 4248 Aug, [facility] [place] [facility] [address] [id number] [place] [address]- 7683 Aug, [facility] [place] [facility] [address] [id number] [place] [address]- 5761 July, [facility] [place] [facility] [address] [id number] [place] [address]- 2728 July, [facility] [place] [facility] [address] [id number] [place] [address]- 7781 July, [facility] [place] [facility] [address] [id number] [place] [address]- 2347 July, [facility] [place] [facility] [address] [id number] [place] [address]- 0112 July, [facility] [place] [facility] [address] [id number] [place] [address]- 9952 July, [facility] [place] [facility] [address] [id number][place] [address]171 July, [facility] [id number] 9631 Jun, [facility] [address] 7356 May, [facility] [address] [id number] 5938 May, [facility] [address] [id number] 4449 May, [facility] [id number] [place] [address]8542- 7416 May, [facility] [id number], [place] [address]- 0659 May, [facility] [id number] [place] [address] 673339- 6867 May, [facility] [id number], [place] [address]- 5016 May, [facility] [id number] [place] [address] 012463- 9464 May, IMMUNIZATIONS No Known Immunizations SOCIAL HISTORY Never Assessed REASON FOR VISIT congestion, states DIalysis said the meds she is on arent working. Max PLAN OF CARE VITAL SIGNS Height 64 in 2016-11-09 Weight 307. lbs 2016-11-09 Temperature 98.6 degrees Fahrenheit 2016-11-09 Heart Rate 84 bpm 2016-11-09 Respiratory Rate 20 2016-11-09 BMI 52.69 kg/m2 2016-11-09 Blood pressure systolic 108 mmHg 2016-11-09 Blood pressure diastolic 60 mmHg 2016-11-09 MEDICATIONS Medication Instructions Dosage Frequency Start Date End Date Duration Status Aspirin 81 mg take 1 tablet (81 mg) by oral route once daily May, Active HydrOXYzine HCl 25 MG TAKE 1 TABLET BY MOUTH FOUR TIMES DAILY NEEDED FOR ANXIETY 22 Active Furosemide 40 MG TAKE ONE TABLET BY MOUTH DAILY 30 Active Crestor 20 mg Orally Once a day 1 tablet 24h Active Loratadine 10 MG TAKE ONE TABLET BY MOUTH DAILY AT BEDTIME 30 Active Renvela 800 MG 2tablet with breakfast and dinner and 1 tablet with lunch Active Naproxen 375 MG Orally Twice a day 1 tablet 12h Dec, Active Zithromax Z-Nabeel 250 MG Orally Once a day 2 tablets on the first day, then 1 tablet daily for 4 days 24h Oct, 5 day(s) Active Fluticasone Propionate 50 MCG/ACT inhale 1 spray (50 mcg) in each nostril by intranasal route once daily Active Dialyvite Orally Once a day 1 tablet 24h Active Oxygen 5 as directed July, Active Humalog KwikPen 100 UNIT/ML Subcutaneous before meals per sliding scale May, Active Lantus SoloStar 100 UNIT/ML INJECT 30 UNITS SUBCUTANEOUSLY DAILY AT BEDTIME 50 Active Humalog KwikPen 100 UNIT/ML Subcutaneous before meals per sliding scale Active Wheelchair - .... 24h July, lifetime Active Glucagon Emergency 1 mg July, Active Nystatin 994756 UNIT/GM Externally Twice a day 1 to affected area 12h Mar, Active Lantus SoloStar 100 unit/ml INJECT 30 UNITS SUBCUTANEOUSLY DAILY AT BEDTIME 30 days Active Mupirocin 2 % APPLY TO AFFECTED AREA TWICE DAILY 5 Active Metoprolol Tartrate 100 MG TAKE ONE TABLET BY MOUTH TWICE DAILY - TAKE WITH MEALS 30 Active Guaifenesin 400 MG Orally 4 times a day 1 tablet as needed 6h Apr, Active Rosuvastatin Calcium 20 MG TAKE 1 TABLET BY MOUTH ONCE A DAY 30 Active Humalog KwikPen 100 unit/ml Subcutaneous before meals per sliding scale 30 days Active Saxton 10-325 MG Orally every 6 hrs take 1 tablet by oral route every 6 hours as needed for pain 6h Sep, 28 days Active True Metrix Blood Glucose Test - USE TO TEST BLOOD GLUCOSE LEVELS TWICE DAILY 25 Active Montelukast Sodium 10 MG TAKE ONE TABLET BY MOUTH ONCE DAILY IN THE EVENING 30 Active Isosorbide Mononitrate ER 30 MG TAKE 1 TABLET BY MOUTH DAILY 30 Active Singulair 10 MG take 1 tablet (10 mg) by oral route once daily in the evening Active Gabapentin 300 MG Orally Three times a day 1 capsule 8h Active RESULTS Name Result Date Reference Range CULTURE, SPUTUM 2016-11-09 Lower Respiratory Culture Final report Result 1 Xray : Chest (IN HOUSE) 2016-11-09 PROCEDURES Procedure Date Ordered Result Body Site CHEST X-RAY Nov 09, 2016 [facility] VISIT ESTABLISHED PATIENT Nov 09, 2016 [facility] Nov 09, 2016 INSTRUCTIONS MEDICATIONS ADMINISTERED No Known Medications MEDICAL [...]
--- OUTSIDE RECORDS SUMMARY | 2017-12-18 20:14 | XMS REPORT ---
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
--- OUTSIDE RECORDS SUMMARY | 2017-12-18 20:15 | XMS REPORT ---
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
--- OUTSIDE RECORDS SUMMARY | 2017-12-18 20:15 | XMS REPORT ---
Author Author MCKENNA HEBERT Organization [facility] Address [address] [place] [address] Care Team Providers Care Assistant Finance Director Name Role Phone MCKENNA HEBERT Unavailable PROBLEMS Type Condition ICD9-CM Code MVV09-LJ Code Onset Dates Condition Status SNOMED Code Problem Diabetes type 2, controlled E11.9 Active 46855670 Problem Neuropathy G62.9 Active 314898803 Problem Renal failure N19 Active 45516940 Problem Cellulitis of right lower extremity L03.115 Active 295157324 Problem Angina pectoris I20.9 Active 167345249 Problem Seasonal allergic rhinitis due to other allergic trigger J30.89 Active 464596082 Problem Intra-dialytic hypotension I95.3 Active 756418186 Problem Amput below knee, unilat S88.119A Active 07035435 Problem Chronic congestive heart failure, unspecified heart failure type I50.9 Active 83596657 Problem Chronic congestive heart failure, unspecified congestive heart failure type I50.9 Active 00693229 ALLERGIES No Information ENCOUNTERS Encounter Location Date Diagnosis [place] [address] [place] [address] 13591- 9487 Aug, [facility] [address], [place] [address] 8[address] July, [facility] [id number] [place] [address] 62511- 2550 16 Jun, 2017 [facility] [id number] [place] [address] 52048- 0506 Jun, [place] [id number] [place] [address] 65459- 1518 10 Jun, 2017 Diabetes type 2, controlled E11.9 [facility] [address] [place] [address] 83395- 5954 Jun, [facility] [address], [place] [address]- 8334 May, [facility] [id number] [place] [address] 15721- 4752 May, [facility] [id number] [place] [address] 23157- 1670 May, [facility] [id number] [place] [address] 28271- 6788 May, Chronic congestive heart failure, unspecified congestive heart failure type I50.9 [facility] [id number] [place] [address] 28360- 6903 May, Diabetes type 2, controlled E11.9 ; BMI 50.0-59.9, adult Z68.43 ; Chronic congestive heart failure, unspecified heart failure type I50.9 ; Angina pectoris I20.9 ; Seasonal allergic rhinitis due to other allergic trigger J30.89 and Renal failure N19 [facility] [address] [address] May, [facility] [id number] [place] [address] 63629- 5848 May, [facility] [id number] [place] [address] 73186- 0285 May, [facility] [id number] [place] [address] 33983- 0616 May, [facility] [address], [place] [address]- 1395 May, [facility] [address] [place] [address] 78007- 2024 Apr, BMI 50.0-59.9, adult Z68.43 [facility] [id number] [place] [address] 89694- 3505 Apr, BMI 50.0-59.9, adult Z68.43 ; Post-procedural fever R50.82 and Bronchitis J40 [facility] [id number], [place] [address]- 0897 Apr, Chronic congestive heart failure, unspecified congestive heart failure type I50.9 [facility] [address] [facility] [id number] [place] [address]- 5976 Jan, [facility] [address] [facility] [id number] [place] [address] 24980- 5301 Jan, Diabetes type 2, controlled E11.9 [facility] [address] [facility] [id number], [place] [address]- 2618 Jan, Neuropathy G62.9 [facility] [address] [facility] [id number] [place] [address] 82127- 4586 Jan, [facility] [address], [place] [address]- 5141 Jan, [facility] [address] [place] [address] 50925- 5099 Jan, [facility] [id number], [place] [address]- 8465 Jan, [facility] [address], [place] [address]- 0481 Jan, [facility] [address], [place] [address]- 7841 Dec, [facility] [id number], [place] [address]- 4840 Dec, [facility] [id number], [place] [address]- 4197 Dec, Diabetes type 2, controlled E11.9 [facility] [id number], [place] [address]- 3326 Dec, [facility] [id number], [place] [address]- 2945 Dec, [facility] [address], [place] [address]- 6996 Dec, Chronic congestive heart failure, unspecified congestive heart failure type I50.9 [facility] [address], [place] [address]- 8878 Dec, [facility] [address], [place] [address]- 5709 Dec, [facility] [address], [place] [address]- 5321 Nov, Chronic congestive heart failure, unspecified congestive heart failure type I50.9 [facility] [address], [place] [address]- 5837 Nov, Chronic congestive heart failure, unspecified congestive heart failure type I50.9 [facility] [address], [place] [address]- 2800 Nov, [facility] [address], [place] [address]- 1335 Oct, [facility] [address], [place] [address]- 8644 Oct, [facility] [address], [place] [address]- 2396 Oct, Chronic congestive heart failure, unspecified congestive heart failure type I50.9 [facility] [address], [place] [address]- 7255 Oct, [facility] [address], [place] [address]- 5645 Oct, Pneumonia of both lungs due to infectious organism, unspecified part of lung J18.9 [facility] [address], [place] [address]- 2207 Oct, [facility] [address], [place] [address]- 8936 Oct, Diabetes type 2, controlled E11.9 [facility] [id number] [place] [address] 04655- 6517 Oct, Diabetes type 2, controlled E11.9 [facility] [id number] [place] [address] 40782- 8307 Sep, [facility] [id number] [place] [address] 48749- 0233 Sep, Neuropathy G62.9 [facility] [id number] [place] [address] 79278- 2650 Aug, Intra-dialytic hypotension I95.3 [facility] [id number] [place] [address] 02808- 8213 July, [facility] [id number] [place] [address] 78398- 7351 July, [facility] [id number] [place] [address] 97183- 6105 July, [facility] [id number] [place] [address] 04565- 8217 July, Amput below knee, unilat S88.119A [facility] [id number] [place] [address] 74233- 1476 May, [facility] [address] [place] [address] 64615- 7663 May, Neuropathy G62.9 [facility] [id number] [place] [address] 36905- 7320 May, [facility] [address] [place] [address] 00382- 3430 May, [facility] [id number] [place] [address] 106046- 1396 May, [facility] [id number] [place] [address] 49020- 2823 May, [facility] [id number] [place] [address] 92947- 5039 May, Neuropathy G62.9 [facility] [address] [place] [address]- 6118 Apr, [facility] [address], [place] [address]- 4653 Apr, [facility] [id number] [place] [address] 92877- 5859 Apr, Diabetes type 2, controlled E11.9 and Renal failure N19 [facility] [address] [facility] [id number] [place] [address], [place] [address] -0795 Apr, [facility] [id number] [place] [address], [place] [address]- 0400 Apr, [facility] [id number] [place] [address] 45769- 0012 Mar, [facility] [id number] [place] [address] 48136- 4085 Mar, [facility] [address] [place] [address]- 5287 Mar, [facility] [id number] [place] [address] 82538- 7425 Mar, [facility] [address], [place] [address]- 3561 Mar, [facility] [address] [place] [address] 83430- 0199 Jan, Localized edema R60.0 [facility] [address] [place] [address]- 6932 Jan, [facility] [id number] [place] [address] 69355- 8889 Jan, [facility] [address], [place] [address]- 5689 Jan, [facility] [id number] [place] [address] 43754- 7403 Jan, [facility] [id number] [place] [address] 51207- 3430 Jan, [facility] [id number] [place] [address] 95197- 0213 Jan, [facility] [id number] [place] [address] 35765- 5659 Dec, Diabetes type 2, controlled E11.9 and Chronic nonintractable headache, unspecified headache type R51 [facility] [id number] [place] [address] 51913- 7266 Dec, [facility] [id number] [place] [address] 51155- 2488 Dec, [facility] [id number] [place] [address] 97916- 8680 Nov, [facility] [id number] [place] [address] 92981- 3110 Nov, [facility] [id number] [place] [address] 91764- 5512 Oct, [facility] [id number] [place] [address] 34071- 1680 Oct, Migraine without status migrainosus, not intractable, unspecified migraine type G43.909 [facility] [id number] [place] [address] 75254- 6138 Oct, [facility] [id number] [place] [address] 88621- 6699 Sep, Amput below knee, unilat S88.119A and Neuropathy G62.9 [facility] [address] [place] [address] 86951- 0453 Sep, [facility] [id number] [place] [address] 16804- 5103 Sep, [facility] [address] [facility] [id number] [place] [address]- 1388 Sep, [facility] [address] [facility] [id number] [place] [address]- 2339 Aug, [facility] [address] [facility] [id number] [place] [address]- 1145 Aug, [facility] [address] [facility] [id number] [place] [address]- 9636 Aug, Diabetes type 2, controlled E11.9 [facility] [address] [facility] [id number] [place] [address]- 4862 Aug, [facility] [address] [facility] [id number] [place] [address]- 4620 Jun, Diabetes type 2, controlled E11.9 and Neuropathy G62.9 [facility] [address] [place] [address]- 8565 Jun, [facility] [address] [facility] [id number] [place] [address]- 9656 Jun, [facility] [address] [place] [address]- 1546 Jun, [facility] [address] [place] [address]- 2346 Jun, [facility] [address] [place] [address]- 2302 May, [facility] [address] [facility] [id number], [place] [address]- 4054 May, Diabetes type 2, controlled E11.9 [facility] [address] [facility] [id number] [place] [address]- 9421 May, [facility] [address] [facility] [id number] [place] [address]- 5852 May, [facility] [address] [id number] [place] [address]- 7770 May, [facility] [address], [place] [address]- 7751 May, [facility] [address], [place] [address]- 2917 May, [facility] [address], [place] [address]- 0483 May, [facility] [id number] [place] [address] 57296- 2441 May, [facility] [address], [place] [address]- 2454 May, COPD (chronic obstructive pulmonary disease) J44.9 [facility] [address], [place] [address]- 9220 May, [facility] [address] [place] [address] 72201- 4965 May, [facility] [address], [place] [address]- 6898 May, [facility] [address], [place] [address]- 0463 May, [facility] [address], [place] [address]- 7497 May, [facility] [address], [place] [address]- 4689 May, Renal failure N19 and Pneumonia, organism unspecified, unspecified laterality, unspecified part of lung J18.9 [facility] [address], [place] [address]- 0603 Apr, [facility] [address], [place] [address]- 0197 Apr, [facility] [address], [place] [address]- 1509 Apr, [facility] [address] [id number] [place] [address]- 8557 Apr, Diabetes mellitus 250.00 [facility] [address] [id number] [place] [address]- 9271 14 Apr, 2015 [facility] [address] [id number] [place] [address]- 2465 14 Apr, 2015 [facility] [address] [id number] [place] [address]- 0253 Apr, [facility] [address] [id number] [place] [address]- 2066 Apr, [facility] [address] [id number] [place] [address]- 7163 31 Mar, 2015 [facility] [id number] [place] [address]- 8416 28 Mar, 2015 [facility] [address] [id number] [place] [address]- 5333 23 Mar, 2015 [facility] [address] [id number] [place] [address]- 1782 16 Mar, 2015 Renal failure N19 [facility] [id number] [place] [address]- 7938 14 Mar, 2015 [facility] [address] [id number] [place] [address]- 7901 Mar, [facility] [address] [id number] [place] [address]- 3116 04 Mar, 2015 [facility] [place] [facility] [address] [id number] [place] [address]- 3682 24 Jan, 2015 [facility] [address] [id number] [place] [address]- 6672 18 Jan, 2015 [facility] [place] [facility] [address] [facility] [id number] [place] [address]- 3192 17 Jan, 2015 [facility] [address] [id number] [place] [address]- 0060 Jan, [facility] [place] [facility] [address] [id number] [place] [address]- 0060 Dec, [facility] [place] [facility] [address] [id number] [place] [address]- 6141 Dec, [facility] [place] [facility] [address] [id number] [place] [address]- 4586 Dec, [facility] [place] [facility] [address] [id number] [place] [address]- 8105 Nov, [facility] [place] [facility] [id number] [place] [address], [place] [address]- 5975 Nov, [facility] [place] [facility] [address] [facility] [id number] [place] [address]- 9723 Nov, [facility] [place] [facility] [address] [facility] [id number] [place] [address]- 3458 Oct, [facility] [place] [facility] [address] [id number] [place] [address]- 8083 Oct, [facility] [place] [facility] [address] [facility] [id number] [place] [address]- 3599 Oct, Renal failure 586 and Obesity 278.00 [facility] [place] [facility] [address] [facility] [id number] [place] [address]- 2319 Oct, [facility] [place] [facility] [address] [facility] [id number] [place] [address]- 7146 Oct, [facility] [place] [facility] [address] [facility] [id number] [place] [address]- 1563 Oct, [facility] [place] [facility] [address] [facility] [id number] [place] [address]- 4948 Sep, [facility] [place] [facility] [address] [facility] [id number] [place] [address]- 9964 Sep, [facility] [place] [facility] [address] [facility] [id number] [place] [address]- 1706 Sep, Diabetes mellitus 250.00 and Congestive heart failure, unspecified 428.0 [facility] [address] [id number], [place] [address]- 8512 Aug, [facility] [address] [id number], [place] [address]- 2035 Aug, [facility] [address] [facility] [id number], [place] [address]- 3312 Aug, [facility] [address] [id number], [place] [address]- 0255 July, [facility] [address] [facility] [id number] [place] [address] 93405- 5433 July, [facility] [address], [place] [address]- 3973 July, Heart murmur, systolic 785.2 [facility] [address] [facility] [id number], [place] [address]- 6046 July, [facility] [id number], [place] [address]- 6322 July, [facility] [address], [place] [address]- 1732 Jun, [facility] [address], [place] [address]- 2968 Jun, [facility] [address] [id number], [place] [address]- 8161 May, [facility] [address] [id number], [place] [address]- 3164 May, [facility] [address] [facility] [id number], [place] [address]- 6802 May, [facility] [address] [facility] [id number], [place] [address]- 9868 May, [facility] [id number], [place] [address]- 4814 16 May, 2014 [facility] [place] [facility] [address] [facility] [id number] [place] [address]- 3741 16 May, 2014 [facility] [place] [facility] [address] [facility] [id number] [place] [address]- 3611 May, 2014 [facility] [place] [facility] [address] [facility] [id number] [place] [address]- 9125 10 May, 2014 [facility] [place] [facility] [address] [facility] [id number] [place] [address]- 9750 May, 2014 [facility] [place] [facility] [address] [facility] [id number] [place] [address]- 0240 May, 2014 [facility] [place] [facility] [address] [facility] [id number] [place] [address]- 4853 May, 2014 [facility] [place] [facility] [address] [facility] [id number] [place] [address]- 1088 May, 2014 [facility] [place] [facility] [address] [facility] [id number] [place] [address]- 1942 May, 2014 [facility] [place] [facility] [address] [facility] [id number] [place] [address] May, 2014 [facility] [place] [facility] [address] [facility] [id number] [place] [address] May, 2014 [facility] [place] [facility] [address] [facility] [id number] [place] [address] 18 May, 2014 [facility] [place] [facility] [address] [facility] [id number], [place] [address] May, 2014 [facility] [place] [facility] [address] [facility] [id number] [place] [address] May, 2014 [facility] [place] [facility] [address] [facility] [id number], [place] [address] 18 May, 2014 [facility] [place] [facility] [address] [id number], [place] [address] 18 May, 2014 [facility] [place] [facility] [address] [id number] [place] [address] May, [facility] [place] [facility] [address] [id number] [place] [address] May, 2014 [facility] [place] [facility] [address] [id number] [place] [address] May, 2014 [facility] [place] [facility] [address] [id number] [place] [address] May, 2014 [facility] [place] [facility] [address] [id number] [place] [address] May, [facility] [place] [facility] [address] [id number] [place] [address] May, [facility] [place] [facility] [address] [id number] [place] [address] Apr, [facility] [place] [facility] [address] [id number] [place] [address] Apr, [facility] [place] [facility] [address] [id number] [place] [address] Apr, [facility] [place] [facility] [address] [id number] [place] [address] Apr, [facility] [place] [facility] [address] [id number] [place] [address] Apr, [facility] [place] [facility] [address] [id number], [place] [address] Apr, [facility] [place] [facility] [address] [id number] [place] [address] Apr, [facility] [place] [facility] [address] [id number] [place] [address] Apr, [facility] [place] [facility] [address] [id number] [place] [address] Mar, [facility] [place] [facility] [address] [id number] [place] [address] 29 Mar, 2014 [facility] [address] [id number] [place] [address] Mar, [facility] [place] [facility] [address] [id number] [place] [address] Mar, [facility] [address] [id number] [place] [address] Mar, [facility] [place] [facility] [address] [id number] [place] [address] Mar, [facility] [address] [id number] [place] [address] Mar, [facility] [place] [facility] [address] [id number] [place] [address] Mar, [facility] [address] [id number] [place] [address] Mar, [facility] [place] [facility] [address] [id number] [place] [address] Mar, [facility] [place] [facility] [address] [id number] [place] [address] Mar, [facility] [address] [id number] [place] [address] Mar, [facility] [place] [facility] [address] [id number] [place] [address] Mar, [facility] [place] [facility] [address] [id number] [place] [address] Mar, [facility] [place] [facility] [address] [id number] [place] [address] 10 Mar, 2014 [facility] [place] [facility] [address] [id number] [place] [address] 10 Mar, 2014 [facility] [place] [facility] [address] [id number] [place] [address] 132[address] Mar, [facility] [place] [facility] [address] [id number] [place] [address] 8338 Mar, [facility] [place] [facility] [address] [id number] [place] [address] 9744 Mar, [facility] [place] [facility] [address] [id number] [place] [address] 4629 Mar, [facility] [place] [facility] [address] [id number] [place] [address] 4[address] Mar, [facility] [place] [facility] [address] [id number] [place] [address] 4839 Mar, [facility] [place] [facility] [address] [id number] [place] [address] 2524 Jan, [facility] [place] [facility] [address] [id number] [place] [address] 8809 Jan, [facility] [place] [facility] [address] [id number] [place] [address]- 3128 Jan, [facility] [place] [facility] [address] [id number] [place] [address] 3420 Jan, [facility] [place] [facility] [address] [id number] [place] [address] 9257 Jan, [facility] [place] [facility] [address] [id number] [place] [address] 7939 Jan, [facility] [place] [facility] [address] [id number], [place] [address] Jan, [facility] [place] [facility] [address] [id number] [place] [address]- 5723 Jan, [facility] [place] [facility] [address] [id number] [place] [address]- 2697 Jan, [facility] [place] [facility] [address] [id number] [place] [address]- 3569 Jan, [facility] [place] [facility] [address] [id number], [place] [address]- 1414 Jan, [facility] [place] [facility] [address] [id number] [place] [address]- 4627 Jan, [facility] [place] [facility] [address] [id number] [place] [address]- 5459 Jan, [facility] [place] [facility] [address] [id number] [place] [address]- 2599 Jan, [facility] [place] [facility] [address] [id number] [place] [address]- 6326 Jan, [facility] [place] [facility] [address] [id number] [place] [address]- 2669 Jan, [facility] [place] [facility] [address] [id number] [place] [address]- 7923 Jan, [facility] [place] [facility] [address] [id number] [place] [address]- 8470 Jan, [facility] [place] [facility] [address] [id number] [place] [address]- 8886 Jan, [facility] [place] [facility] [address] [id number] [place] [address]- 8481 Jan, [facility] [place] [facility] [address] [id number] [place] [address]- 2325 Dec, [facility] [place] [facility] [address] [id number], [place] [address] Dec, [facility] [place] [facility] [address] [id number], [place] [address] Dec, [facility] [place] [facility] [address] [id number] [place] [address]- 7793 Dec, [facility] [place] [facility] [address] [id number] [place] [address]- 5254 Dec, [facility] [place] [facility] [address] [id number] [place] [address]- 8845 14 Dec, 2013 [facility] [place] [facility] [address] [id number] [place] [address]- 6990 14 Dec, 2013 [facility] [place] [facility] [address] [id number] [place] [address]- 2723 10 Dec, 2013 [facility] [place] [facility] [address] [id number] [place] [address]- 3761 10 Dec, 2013 [facility] [place] [facility] [address] [id number] [place] [address]- 6983 08 Dec, 2013 [facility] [place] [facility] [address] [id number] [place] [address]- 2725 08 Dec, 2013 [facility] [place] [facility] [address] [id number] [place] [address] 1932 Dec, [facility] [place] [facility] [address] [id number] [place] [address]- 1407 Dec, [facility] [place] [facility] [address] [id number] [place] [address]- 6279 Dec, [facility] [place] [facility] [address] [id number] [place] [address]- 0257 Dec, [facility] [place] [facility] [address] [id number] [place] [address]- 0509 22 Nov, 2013 [facility] [place] [facility] [address] [id number] [place] [address]- 1438 22 Nov, 2013 [facility] [place] [facility] [address] [id number] [place] [address]- 9242 19 Nov, 2013 [facility] [place] [facility] [address] [id number] [place] [address]- 5609 19 Nov, 2013 [facility] [place] [facility] [address] [id number] [place] [address]- 8627 13 Nov, 2013 [facility] [place] [facility] [address] [id number] [place] [address]- 8629 13 Nov, 2013 [facility] [place] [facility] [address] [id number] [place] [address]- 3911 Nov, 2013 [facility] [place] [facility] [address] [id number] [place] [address]- 6377 Nov, 2013 [facility] [place] [facility] [address] [id number] [place] [address]- 8218 Nov, 2013 [facility] [place] [facility] [address] [id number] [place] [address]- 1253 Nov, 2013 [facility] [place] [facility] [address] [id number] [place] [address]- 7160 Nov, 2013 [facility] [place] [facility] [address] [id number] [place] [address]- 0404 Nov, [facility] [place] [facility] [address] [id number] [place] [address]- 6344 Nov, [facility] [place] [facility] [address] [id number] [place] [address]- 6310 Oct, [facility] [place] [facility] [address] [id number] [place] [address]- 5728 Oct, [facility] [place] [facility] [address] [id number] [place] [address]- 9668 Oct, [facility] [place] [facility] [address] [id number] [place] [address]- 9818 Oct, [facility] [place] [facility] [address] [id number] [place] [address]- 7480 Oct, [facility] [place] [facility] [address] [id number], [place] [address]- 9809 Sep, [facility] [place] [facility] [address] [id number] [place] [address]- 8050 Sep, [facility] [place] [facility] [address] [id number] [place] [address]- 6272 Sep, [facility] [place] [facility] [address] [id number] [place] [address]- 5045 Sep, [facility] [place] [facility] [address] [id number] [place] [address]- 9541 30 Aug, 2013 [facility] [place] [facility] [address] [id number] [place] [address]- 9597 30 Aug, 2013 [facility] [place] [facility] [address] [id number] [place] [address]- 4831 Aug, [facility] [place] [facility] [address] [id number] [place] [address]- 2928 Aug, [facility] [place] [facility] [address] [id number] [place] [address]- 2986 Aug, [facility] [place] [facility] [address] [id number] [place] [address]- 2834 Aug, [facility] [place] [facility] [address] [id number] [place] [address]- 4507 Aug, [facility] [place] [facility] [address] [id number] [place] [address]- 5212 Aug, [facility] [place] [facility] [address] [id number] [place] [address]- 7553 Aug, [facility] [place] [facility] [address] [id number] [place] [address]- 8597 Aug, [facility] [place] [facility] [address] [id number] [place] [address]- 5557 Aug, [facility] [place] [facility] [address] [id number] [place] [address]- 0811 Aug, [facility] [place] [facility] [address] [id number] [place] [address]- 2547 Aug, [facility] [place] [facility] [address] [id number] [place] [address]- 1413 Aug, [facility] [place] [facility] [address] [id number] [place] [address]- 4582 Aug, [facility] [place] [facility] [address] [id number] [place] [address]- 6258 Aug, [facility] [place] [facility] [address] [id number] [place] [address]- 1504 Aug, [facility] [place] [facility] [address] [id number] [place] [address]- 5226 Aug, [facility] [place] [facility] [address] [id number] [place] [address]- 2906 Aug, [facility] [place] [facility] [address] [id number] [place] [address]- 7074 Aug, [facility] [place] [facility] [address] [id number] [place] [address]- 1984 Aug, [facility] [place] [facility] [address] [id number] [place] [address]- 2263 Aug, [facility] [place] [facility] [address] [id number] [place] [address]- 6689 Aug, [facility] [place] [facility] [address] [id number] [place] [address]- 3993 Aug, [facility] [place] [facility] [address] [id number] [place] [address]- 2862 July, [facility] [place] [facility] [address] [id number] [place] [address]- 4257 July, [facility] [place] [facility] [address] [id number] [place] [address]- 8173 July, [facility] [place] [facility] [address] [id number] [place] [address]- 5835 July, [facility] [place] [facility] [address] [id number] [place] [address]- 7512 July, [facility] [place] [facility] [address] [id number] [place] [address]- 3058 July, [facility] [place] [facility] [address] [id number] [place] [address]- 3598 Jun, [facility] [place] [facility] [address] [id number] [place] [address]- 5353 Jun, [facility] [place] [facility] [address] [id number] [place] [address]- 4569 Jun, [facility] [place] [facility] [address] [id number] [place] [address]- 8904 Jun, [facility] [place] [facility] [address] [id number] [place] [address]- 0557 Jun, [facility] [place] [facility] [address] [id number] [place] [address]- 6688 Jun, [facility] [place] [facility] [address] [id number] [place] [address]- 2872 Jun, [facility] [place] [facility] [address] [id number] [place] [address]- 3089 Jun, [facility] [place] [facility] [address] [id number] [place] [address]- 5406 Jun, [facility] [place] [facility] [address] [id number] [place] [address]- 4659 Jun, [facility] [place] [facility] [address] [id number] [place] [address]- 2253 Jun, [facility] [place] [facility] [address] [id number] [place] [address]- 3128 Jun, [facility] [place] [facility] [address] [id number] [place] [address]- 4299 Jun, [facility] [place] [facility] [address] [id number] [place] [address]- 6344 Jun, [facility] [place] [facility] [address] [id number] [place] [address]- 9169 Jun, [facility] [place] [facility] [address] [id number] [place] [address]- 3415 May, [facility] [place] [facility] [address] [id number] [place] [address]- 4864 May, [facility] [place] [facility] [address] [id number] [place] [address]- 8762 May, [facility] [place] [facility] [address] [id number] [place] [address]- 3762 May, [facility] [place] [facility] [address] [id number] [place] [address]- 8364 May, [facility] [place] [facility] [address] [id number] [place] [address]- 3811 May, [facility] [place] [facility] [address] [id number] [place] [address]- 7601 May, [facility] [place] [facility] [address] [id number] [place] [address]- 9785 May, [facility] [place] [facility] [address] [id number] [place] [address]- 4498 May, [facility] [place] [facility] [address] [id number] [place] [address]- 2304 May, [facility] [place] [facility] [address] [id number] [place] [address]- 8792 May, [facility] [place] [facility] [address] [id number] [place] [address]- 6931 May, [facility] [place] [facility] [address] [id number] [place] [address]- 8297 May, [facility] [place] [facility] [address] [id number] [place] [address]- 4207 May, [facility] [place] [facility] [address] [id number] [place] [address]- 7561 May, [facility] [place] [facility] [address] [id number] [place] [address]- 8509 May, [facility] [place] [facility] [address] [id number] [place] [address]- 5992 May, [facility] [place] [facility] [address] [id number] [place] [address]- 5751 Apr, [facility] [place] [facility] [address] [id number] [place] [address]- 0970 Apr, [facility] [place] [facility] [address] [id number] [place] [address]- 1828 Apr, [facility] [place] [facility] [address] [id number] [place] [address]- 3361 Apr, [facility] [place] [facility] [address] [id number] [place] [address]- 1316 Apr, [facility] [place] [facility] [address] [id number] [place] [address]- 0879 Apr, [facility] [place] [facility] [address] [id number] [place] [address]- 6330 Apr, [facility] [place] [facility] [address] [id number] [place] [address]- 4566 Apr, [facility] [place] [facility] [address] [id number] [place] [address]- 8360 Apr, [facility] [place] [facility] [address] [id number] [place] [address]- 7391 Apr, [facility] [place] [facility] [address] [id number] [place] [address]- 4263 Apr, [facility] [place] [facility] [address] [id number], [place] [address]- 4961 Apr, [facility] [place] [facility] [address] [id number], [place] [address]- 6339 Apr, [facility] [place] [facility] [address] [id number] [place] [address]- 9943 Apr, [facility] [place] [facility] [address] [id number] [place] [address]- 3007 Apr, [facility] [place] [facility] [address] [id number] [place] [address]- 0518 Apr, [facility] [place] [facility] [address] [id number] [place] [address]- 7420 30 Mar, 2012 [facility] [address] [id number] [place] [address]- 4806 30 Mar, 2012 [facility] [address] [id number] [place] 9676 30 Mar, 2012 [facility] [address] [id number] [place] [address]- 3948 30 Mar, 2012 [facility] [address] [id number] [place] [address]- 7354 18 Mar, 2012 [facility] [address] [id number] [place] [address]- 7812 18 Mar, 2013 [facility] [address] [id number] [place] [address]- 7899 18 Mar, 2013 [facility] [address] [id number] [place] [address]- 9315 18 Mar, 2013 [facility] [address] [id number] [place] [address]- 9349 17 Mar, 2013 [facility] [address] [id number] [place] [address]- 9161 17 Mar, 2013 [facility] [address] [id number] [place] [address]- 8123 05 Mar, 2013 [facility] [address] [id number] [place] [address]- 6326 05 Mar, 2013 [facility] [place] [facility] [address] [id number] [place] [address]- 3434 04 Mar, 2013 [facility] [place] [facility] [address] [id number] [place] [address]- 8895 04 Mar, 2013 [facility] [place] [facility] [address] [id number] [place] 2984 04 Mar, 2013 [facility] [place] [facility] [address] [id number] [place] [address]- 3757 04 Mar, 2013 [facility] [place] [facility] [address] [id number] [place] [address]- 2316 Mar, [facility] [place] [facility] [address] [id number] [place] [address]- 4595 Mar, [facility] [place] [facility] [address] [id number] [place] [address]- 6052 Jan, [facility] [place] [facility] [address] [id number] [place] [address]- 1821 Jan, [facility] [place] [facility] [address] [id number] [place] [address]- 9689 Jan, [facility] [place] [facility] [address] [id number] [place] [address]- 9801 Jan, [facility] [place] [facility] [address] [id number] [place] [address]- 4657 Nov, [facility] [place] [facility] [address] [id number] [place] [address]- 4901 Nov, [facility] [place] [facility] [address] [id number] [place] [address]- 5880 Nov, [facility] [place] [facility] [address] [id number] [place] [address]- 6117 Nov, [facility] [place] [facility] [address] [id number] [place] [address]- 9169 Oct, [facility] [place] [facility] [address] [id number] [place] [address]- 6375 Oct, [facility] [place] [facility] [address] [id number] [place] [address]- 2574 Oct, [facility] [place] [facility] [address] [id number] [place] [address]- 2597 Oct, [facility] [place] [facility] [address] [id number] [place] [address]- 3087 Sep, [facility] [place] [facility] [address] [id number] [place] [address]- 4536 Sep, [facility] [place] [facility] [address] [id number] [place] [address]- 0026 Sep, [facility] [place] [facility] [address] [id number] [place] [address]- 5917 Sep, [facility] [place] [facility] [address] [id number] [place] [address]- 1965 Sep, [facility] [place] [facility] [address] [id number] [place] [address]- 6031 Sep, [facility] [place] [facility] [address] [id number] [place] [address]- 1371 Sep, [facility] [place] [facility] [address] [id number] [place] [address]- 9074 Sep, [facility] [place] [facility] [address] [id number] [place] [address]- 6484 Sep, [facility] [place] [facility] [address] [id number] [place] [address]- 7111 Aug, [facility] [place] [facility] [address] [id number] [place] [address]- 3759 Aug, [facility] [place] [facility] [address] [id number] [place] [address]- 4692 Aug, [facility] [place] [facility] [address] [id number] [place] [address]- 4899 Aug, [facility] [place] [facility] [address] [id number] [place] [address]- 1576 July, [facility] [place] [facility] [address] [id number] [place] [address]- 4629 July, [facility] [place] [facility] [address] [id number] [place] [address]- 2684 July, [facility] [place] [facility] [address] [id number] [place] [address]- 9339 July, [facility] [place] [facility] [address] [id number], [place] [address]- 3046 July, [facility] [id number], [place] [address]- 0269 July, [facility] [id number], [place] [address]- 5447 July, [facility] [id number], [place] [address]- 7211 Jun, [facility] [id number], [place] [address]- 2061 May, [facility] [address] [place] [address] May, [facility] [address] [place] [address] May, [facility] [address] [place] [address] May, [facility] [address] [place] [address] May, [facility] [address] [place] [address] May, [facility] [id number] [address] May, [facility] [id number] [address] May, IMMUNIZATIONS No Known Immunizations SOCIAL HISTORY Never Assessed REASON FOR VISIT fax request PLAN OF CARE VITAL SIGNS MEDICATIONS [...]
--- OUTSIDE RECORDS SUMMARY | 2017-12-18 20:16 | XMS REPORT ---
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
--- OUTSIDE RECORDS SUMMARY | 2017-12-18 20:17 | XMS REPORT ---
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
--- OUTSIDE RECORDS SUMMARY | 2017-12-18 20:18 | XMS REPORT ---
Author Author MCKENNA HEBERT Organization [facility] Address [address] [place] [address] Care Team Providers Care Supervisor Beam Department Name Role Phone MCKENNA HEBERT Unavailable PROBLEMS Type Condition ICD9-CM Code QGZ50-HZ Code Onset Dates Condition Status SNOMED Code Problem Diabetes type 2, controlled E11.9 Active 56757402 Problem Neuropathy G62.9 Active 457326651 Problem Renal failure N19 Active 33108276 Problem Cellulitis of right lower extremity L03.115 Active 418026446 Problem Angina pectoris I20.9 Active 675970269 Problem Seasonal allergic rhinitis due to other allergic trigger J30.89 Active 726641730 Problem Intra-dialytic hypotension I95.3 Active 573345640 Problem Amput below knee, unilat S88.119A Active 05089280 Problem Chronic congestive heart failure, unspecified heart failure type I50.9 Active 21372043 Problem Chronic congestive heart failure, unspecified congestive heart failure type I50.9 Active 90280487 ALLERGIES No Information ENCOUNTERS Encounter Location Date Diagnosis [place] [id number] [place] [address] 39984- 8648 Aug, [facility] [address] [address] 6529 July, [facility] [id number] [place] [address] 08779- 0137 16 Jun, 2017 [facility] [id number] [place] [address] 60829- 7818 Jun, [place] [id number] [place] [address] 23509- 2199 10 Jun, 2017 Diabetes type 2, controlled E11.9 [facility] [id number] [place] [address] 85864- 8122 Jun, [facility] [address] [address] 8456 May, [facility] [id number] [place] [address] 14873- 8562 May, [facility] [id number] [place] [address] 96040- 2279 May, [facility] [id number] [place] [address] 76799- 9415 May, Chronic congestive heart failure, unspecified congestive heart failure type I50.9 [facility] [id number] [place] [address] 54131- 6959 May, Diabetes type 2, controlled E11.9 ; BMI 50.0-59.9, adult Z68.43 ; Chronic congestive heart failure, unspecified heart failure type I50.9 ; Angina pectoris I20.9 ; Seasonal allergic rhinitis due to other allergic trigger J30.89 and Renal failure N19 [facility] [address] [address] May, [facility] [id number] [place] [address] 39088- 8248 May, [facility] [id number] [place] [address] 82662- 0160 May, [facility] [id number] [place] [address] 96170- 0337 May, [facility] [address] [address]- 9000 May, [facility] [id number] [place] [address] 35077- 9982 Apr, BMI 50.0-59.9, adult Z68.43 [facility] [id number] [place] [address] 28928- 3972 Apr, BMI 50.0-59.9, adult Z68.43 ; Post-procedural fever R50.82 and Bronchitis J40 [facility] [id number] [address]- 8072 Apr, Chronic congestive heart failure, unspecified congestive heart failure type I50.9 [facility] [address] [facility] [id number] [place] [address]- 5996 Jan, [facility] [address] [facility] [id number] [place] [address] 54260- 9305 Jan, Diabetes type 2, controlled E11.9 [facility] [address] [facility] [id number] [address]- 8765 Jan, Neuropathy G62.9 [facility] [address] [facility] [id number] [place] [address] 99994- 6776 Jan, [facility] [address] [address]- 8576 Jan, [facility] [id number] [place] [address] 85038- 2404 Jan, [facility] [address] [id number] [address]- 3026 Jan, [facility] [address], [place] [address]- 3866 Jan, [facility] [address] [address]- 6461 Dec, [facility] [address] [id number] [address]- 9313 Dec, [facility] [address] [id number] [address]- 7581 Dec, Diabetes type 2, controlled E11.9 [facility] [id number], [place] [address]- 5895 Dec, [facility] [address] [id number] [address]- 2198 Dec, [facility] [address] [address]- 2006 Dec, Chronic congestive heart failure, unspecified congestive heart failure type I50.9 [facility] [address] [address]- 2005 Dec, [facility] [address] [address]- 0179 Dec, [facility] [address] [address]- 5293 Nov, Chronic congestive heart failure, unspecified congestive heart failure type I50.9 [facility] [address] [address]- 9316 Nov, Chronic congestive heart failure, unspecified congestive heart failure type I50.9 [facility] [address] [address]- 8874 Nov, [facility] [address], [place] [address]- 6951 Oct, [facility] [address] [address]- 4629 Oct, [facility] [address] [address]- 1416 Oct, Chronic congestive heart failure, unspecified congestive heart failure type I50.9 [facility] [address] [address]- 1715 Oct, [facility] [address], [place] [address]- 6927 Oct, Pneumonia of both lungs due to infectious organism, unspecified part of lung J18.9 [facility] [address] [address]- 0006 Oct, [facility] [address], [place] [address]- 4376 Oct, Diabetes type 2, controlled E11.9 [facility] [id number] [place] [address] 35177- 1060 Oct, Diabetes type 2, controlled E11.9 [facility] [id number] [place] [address] 01828- 7962 Sep, [facility] [id number] [place] [address] 20929- 8427 Sep, Neuropathy G62.9 [facility] [id number] [place] [address] 14648- 2101 Aug, Intra-dialytic hypotension I95.3 [facility] [id number] [place] [address] 10292- 2941 July, [facility] [id number] [place] [address] 54861- 0801 July, [facility] [id number] [place] [address] 57736- 0504 July, [facility] [id number] [place] [address] 27389- 8916 July, Amput below knee, unilat S88.119A [facility] [id number] [place] [address] 36658- 2476 May, [facility] [id number] [place] [address] 92277- 5980 May, Neuropathy G62.9 [facility] [id number] [place] [address] 13544- 0124 May, [facility] [id number] [place] [address] 12270- 7357 May, [facility] [id number] [place] [address] 563501- 2622 May, [facility] [id number] [place] [address] 58877- 6931 May, [facility] [id number] [place] [address] 65507- 1841 May, Neuropathy G62.9 [facility] [id number] [place] [address]- 2018 Apr, [facility] [id number], [place] [address]- 1152 Apr, [facility] [id number] [place] [address] 19592- 7625 Apr, Diabetes type 2, controlled E11.9 and Renal failure N19 [facility] [address] [facility] [id number] [place] [address], [place] [address]2431 Apr, [facility] [id number] [place] [address], [place] [address]- 5645 Apr, [facility] [id number] [place] [address] 08695- 4982 Mar, [facility] [id number] [place] [address] 12946- 1691 Mar, [facility] [id number] [place] [address]- 8998 Mar, [facility] [id number] [place] [address] 96956- 9906 Mar, [facility] [address] [address]- 1949 Mar, [facility] [id number] [place] [address] 11778- 6796 Jan, Localized edema R60.0 [facility] [id number] [place] [address]- 5753 Jan, [facility] [id number] [place] [address] 06404- 3088 Jan, [facility] [address] [address]- 0972 Jan, [facility] [id number] [place] [address] 10330- 5114 Jan, [facility] [id number] [place] [address] 78422- 3012 Jan, [facility] [id number] [place] [address] 13559- 7424 Jan, [facility] [id number] [place] [address] 71714- 6972 Dec, Diabetes type 2, controlled E11.9 and Chronic nonintractable headache, unspecified headache type R51 [facility] [id number] [place] [address] 58262- 8365 Dec, [facility] [id number] [place] [address] 31178- 0892 Dec, [facility] [id number] [place] [address] 29840- 9469 Nov, [facility] [id number] [place] [address] 60315- 1467 Nov, [facility] [id number] [place] [address] 88973- 4570 Oct, [facility] [id number] [place] [address] 34940- 9903 Oct, Migraine without status migrainosus, not intractable, unspecified migraine type G43.909 [facility] [id number] [place] [address] 61510- 6284 Oct, [facility] [id number] [place] [address] 38985- 6406 Sep, Amput below knee, unilat S88.119A and Neuropathy G62.9 [facility] [id number] [place] [address] 44504- 2175 Sep, [facility] [id number] [place] [address] 69772- 3757 Sep, [facility] [address] [facility] [id number] [place] [address]- 4267 Sep, [facility] [address] [facility] [id number] [place] [address]- 0335 Aug, [facility] [address] [facility] [id number] [place] [address]- 4784 Aug, [facility] [address] [facility] [id number] [place] [address]- 3250 Aug, Diabetes type 2, controlled E11.9 [facility] [address] [facility] [id number] [place] [address]- 5326 Aug, [facility] [address] [facility] [id number] [place] [address]- 1030 Jun, Diabetes type 2, controlled E11.9 and Neuropathy G62.9 [facility] [id number] [place] [address]- 1499 Jun, [facility] [address] [facility] [id number] [place] [address]- 1575 Jun, [facility] [id number] [place] [address]- 7736 Jun, [facility] [id number] [place] [address]- 0834 Jun, [facility] [id number] [place] [address]- 2724 May, [facility] [address] [facility] [id number] [address]- 3935 May, Diabetes type 2, controlled E11.9 [facility] [address] [facility] [id number] [place] [address]- 6804 May, [facility] [address] [facility] [id number] [place] [address]- 2330 May, [facility] [address] [address] [id number] [place] [address]- 0852 May, [facility] [address] [address]- 8055 May, [facility] [address] [address]- 1317 May, [facility] [address] [address]- 8683 May, [facility] [id number] [place] [address] 93781- 0284 May, [facility] [address] [address]- 3723 May, COPD (chronic obstructive pulmonary disease) J44.9 [facility] [address] [address]- 1357 May, [facility] [id number] [place] [address] 19569- 3120 May, [facility] [address] [address]- 7200 May, [facility] [address] [address]- 8765 May, [facility] [address] [address]- 9399 May, [facility] [address] [address]- 4204 May, Renal failure N19 and Pneumonia, organism unspecified, unspecified laterality, unspecified part of lung J18.9 [facility] [address] [address]- 2648 Apr, [facility] [address] [address]- 1356 Apr, [facility] [address] [address]- 6194 Apr, [facility] [address] [id number] [place] [address]- 5803 Apr, Diabetes mellitus 250.00 [facility] [address] [id number] [place] [address]- 7681 14 Apr, 2015 [facility] [address] [id number] [place] [address]- 7785 14 Apr, 2015 [facility] [address] [id number] [place] [address]- 9545 Apr, [facility] [address] [id number] [place] [address]- 2129 Apr, [facility] [address] [id number] [place] [address]- 9079 31 Mar, 2015 [facility] [address] [id number] [place] [address]- 8567 28 Mar, 2015 [facility] [address] [id number] [place] [address]- 1975 23 Mar, 2015 [facility] [address] [id number] [place] [address]- 3550 16 Mar, 2015 Renal failure N19 [facility] [address] [id number] [place] [address]- 2868 14 Mar, 2015 [facility] [address] [id number] [place] [address]- 8329 Mar, [facility] [address] [id number] [place] [address]- 4819 04 Mar, 2015 [facility] [place] [facility] [address] [id number] [place] [address]- 3742 24 Jan, 2015 [facility] [address] [id number] [place] [address]- 9408 18 Jan, 2015 [facility] [place] [facility] [address] [facility] [id number] [place] [address]- 1481 17 Jan, 2015 [facility] [address] [id number] [place] [address]- 9407 Jan, [facility] [place] [facility] [address] [id number] [place] [address]- 4465 Dec, [facility] [place] [facility] [address] [id number] [place] [address]- 6386 Dec, [facility] [place] [facility] [address] [id number] [place] [address]- 6767 Dec, [facility] [place] [facility] [address] [id number] [place] [address]- 9413 Nov, [facility] [place] [facility] [id number] [place] [address], [place] [address]- 1410 Nov, [facility] [place] [facility] [address] [facility] [id number] [place] [address]- 3282 Nov, [facility] [place] [facility] [address] [facility] [id number] [place] [address]- 8953 Oct, [facility] [place] [facility] [address] [id number] [place] [address]- 9775 Oct, [facility] [place] [facility] [address] [facility] [id number] [place] [address]- 7177 Oct, Renal failure 586 and Obesity 278.00 [facility] [place] [facility] [address] [facility] [id number] [place] [address]- 3609 Oct, [facility] [place] [facility] [address] [facility] [id number] [place] [address]- 8343 Oct, [facility] [place] [facility] [address] [facility] [id number] [place] [address]- 1983 Oct, [facility] [place] [facility] [address] [facility] [id number] [place] [address]- 2634 Sep, [facility] [place] [facility] [address] [facility] [id number] [place] [address]- 9127 Sep, [facility] [place] [facility] [address] [facility] [id number] [place] [address]- 4333 Sep, Diabetes mellitus 250.00 and Congestive heart failure, unspecified 428.0 [facility] [address] [id number] [address]- 5359 Aug, [facility] [address] [id number] [address]- 7876 Aug, [facility] [address] [facility] [id number] [address]- 7932 Aug, [facility] [address] [id number] [address]- 9983 July, [facility] [address] [facility] [id number] [place] [address] 39519- 5960 July, [facility] [id number] [address] July, Heart murmur, systolic 785.2 [facility] [address] [facility] [id number], [place] [address] July, [facility] [address] [id number], [place] [address] July, [facility] [id number] [address] Jun, [facility] [id number] [address] Jun, [facility] [address] [id number], [place] [address] May, [facility] [address] [id number], [place] [address] May, [facility] [address] [facility] [id number], [place] [address] May, [facility] [address] [facility] [id number], [place] [address] May, [facility] [address] [id number], [place] [address] 16 May, 2014 [facility] [place] [facility] [address] [facility] [id number] [place] [address] 16 May, 2014 [facility] [place] [facility] [address] [facility] [id number] [place] [address] May, 2014 [facility] [place] [facility] [address] [facility] [id number] [place] [address] 10 May, 2014 [facility] [place] [facility] [address] [facility] [id number] [place] [address] May, 2014 [facility] [place] [facility] [address] [facility] [id number] [place] [address] May, 2014 [facility] [place] [facility] [address] [facility] [id number] [place] [address] May, 2014 [facility] [place] [facility] [address] [facility] [id number] [place] [address] May, 2014 [facility] [place] [facility] [address] [facility] [id number] [place] [address] May, 2014 [facility] [place] [facility] [address] [facility] [id number] [place] [address] May, 2014 [facility] [place] [facility] [address] [facility] [id number] [place] [address]- [address] May, 2014 [facility] [place] [facility] [address] [facility] [id number] [place] [address] 18 May, 2014 [facility] [place] [facility] [address] [facility] [id number], [place] [address] May, 2014 [facility] [place] [facility] [address] [facility] [id number] [place] [address] May, 2014 [facility] [place] [facility] [address] [facility] [id number], [place] [address] 18 May, 2014 [facility] [place] [facility] [address] [id number], [place] [address] 18 May, 2014 [facility] [place] [facility] [address] [id number] [place] [address] May, [facility] [place] [facility] [address] [id number] [place] [address] May, 2014 [facility] [place] [facility] [address] [id number] [place] [address] May, 2014 [facility] [place] [facility] [address] [id number] [place] [address]- [address] May, 2014 [facility] [place] [facility] [address] [id number] [place] [address] May, [facility] [place] [facility] [address] [id number] [place] [address]- [address] May, [facility] [place] [facility] [address] [id number] [place] [address] Apr, [facility] [place] [facility] [address] [id number] [place] [address] Apr, [facility] [place] [facility] [address] [id number] [place] [address] Apr, [facility] [place] [facility] [address] [id number] [place] [address]- [address] Apr, [facility] [place] [facility] [address] [id number] [place] [address]- [address] Apr, [facility] [place] [facility] [address] [id number], [place] [address] Apr, [facility] [place] [facility] [address] [id number] [place] [address] Apr, [facility] [place] [facility] [address] [id number] [place] [address] 0014 Apr, [facility] [place] [facility] [address] [id number] [place] [address] 8402 Mar, [facility] [place] [facility] [address] [id number] [place] [address] 4446 29 Mar, 2014 [facility] [address] [id number] [place] [address] 8086 Mar, [facility] [place] [facility] [address] [id number] [place] [address]- 1746 Mar, [facility] [address] [id number] [place] [address] 3256 Mar, [facility] [place] [facility] [address] [id number] [place] [address]- 5206 Mar, [facility] [address] [id number] [place] [address]- 3934 Mar, [facility] [place] [facility] [address] [id number] [place] [address]- 5463 Mar, [facility] [address] [id number] [place] [address]- 7256 Mar, [facility] [place] [facility] [address] [id number] [place] [address]- 2093 Mar, [facility] [place] [facility] [address] [id number] [place] [address]- 6031 Mar, [facility] [address] [id number] [place] [address]- 1397 Mar, [facility] [place] [facility] [address] [id number] [place] [address]- 3806 Mar, [facility] [place] [facility] [address] [id number] [place] [address]- 8100 Mar, [facility] [place] [facility] [address] [id number] [place] [address]- 3776 10 Mar, 2014 [facility] [place] [facility] [address] [id number] [place] [address]- 2546 10 Mar, 2014 [facility] [place] [facility] [address] [id number] [place] [address]- 4471 Mar, [facility] [place] [facility] [address] [id number] [place] [address]- 5196 Mar, [facility] [place] [facility] [address] [id number] [place] [address]- 9904 Mar, [facility] [place] [facility] [address] [id number] [place] [address]- 4204 Mar, [facility] [place] [facility] [address] [id number] [place] [address]- 3671 Mar, [facility] [place] [facility] [address] [id number] [place] [address]- 3009 Mar, [facility] [place] [facility] [address] [id number] [place] [address]- 0633 Jan, [facility] [place] [facility] [address] [id number] [place] [address]- 6118 Jan, [facility] [place] [facility] [address] [id number] [place] [address]- 8100 Jan, [facility] [place] [facility] [address] [id number] [place] [address]- 6535 Jan, [facility] [place] [facility] [address] [id number] [place] [address]- 0451 Jan, [facility] [place] [facility] [address] [id number] [place] [address]- 4161 Jan, [facility] [place] [facility] [address] [id number], [place] [address]- 8975 Jan, [facility] [place] [facility] [address] [id number] [place] [address]- 1559 Jan, [facility] [place] [facility] [address] [id number] [place] [address]- 6338 Jan, [facility] [place] [facility] [address] [id number] [place] [address]- 6057 Jan, [facility] [place] [facility] [address] [id number], [place] [address]- 3566 Jan, [facility] [place] [facility] [address] [id number] [place] [address]- 6342 Jan, [facility] [place] [facility] [address] [id number] [place] [address]- 6584 Jan, [facility] [place] [facility] [address] [id number] [place] [address]- 7417 Jan, [facility] [place] [facility] [address] [id number] [place] [address]- 6113 Jan, [facility] [place] [facility] [address] [id number] [place] [address]- 7355 Jan, [facility] [place] [facility] [address] [id number] [place] [address]- 5336 Jan, [facility] [place] [facility] [address] [id number] [place] [address]- 6870 Jan, [facility] [place] [facility] [address] [id number] [place] [address]- 4205 Jan, [facility] [place] [facility] [address] [id number] [place] [address]- 3724 Jan, [facility] [place] [facility] [address] [id number] [place] [address]- 6428 Dec, [facility] [place] [facility] [address] [id number], [place] [address]- 3685 Dec, [facility] [place] [facility] [address] [id number], [place] [address]- 0973 Dec, [facility] [place] [facility] [address] [id number] [place] [address]- 2081 Dec, [facility] [place] [facility] [address] [id number] [place] [address]- 9693 Dec, [facility] [place] [facility] [address] [id number] [place] [address]- 4199 14 Dec, 2013 [facility] [place] [facility] [address] [id number] [place] [address]- 2838 14 Dec, 2013 [facility] [place] [facility] [address] [id number] [place] [address]- 9064 10 Dec, 2013 [facility] [place] [facility] [address] [id number] [place] [address]- 1714 10 Dec, 2013 [facility] [place] [facility] [address] [id number] [place] [address]- 0843 08 Dec, 2013 [facility] [place] [facility] [address] [id number] [place] [address]- 6354 08 Dec, 2013 [facility] [place] [facility] [address] [id number] [place] [address]- 7618 Dec, [facility] [place] [facility] [address] [id number] [place] [address]- 0301 Dec, [facility] [place] [facility] [address] [id number] [place] [address]- 3660 Dec, [facility] [place] [facility] [address] [id number] [place] [address]- 8680 Dec, [facility] [place] [facility] [address] [id number] [place] [address]- 7178 22 Nov, 2013 [facility] [place] [facility] [address] [id number] [place] [address]- 3009 22 Nov, 2013 [facility] [place] [facility] [address] [id number] [place] [address]- 9678 19 Nov, 2013 [facility] [place] [facility] [address] [id number] [place] [address]- 6732 19 Nov, 2013 [facility] [place] [facility] [address] [id number] [place] [address]- 2020 13 Nov, 2013 [facility] [place] [facility] [address] [id number] [place] [address]- 2515 13 Nov, 2013 [facility] [place] [facility] [address] [id number] [place] [address]- 6682 Nov, 2013 [facility] [place] [facility] [address] [id number] [place] [address]- 2706 Nov, 2013 [facility] [place] [facility] [address] [id number] [place] [address]- 7345 Nov, 2013 [facility] [place] [facility] [address] [id number] [place] [address]- 4064 Nov, 2013 [facility] [place] [facility] [address] [id number] [place] [address]- 6280 Nov, 2013 [facility] [place] [facility] [address] [id number] [place] [address]- 3823 Nov, [facility] [place] [facility] [address] [id number] [place] [address]- 2422 Nov, [facility] [place] [facility] [address] [id number] [place] [address]- 0876 Oct, [facility] [place] [facility] [address] [id number] [place] [address]- 3040 Oct, [facility] [place] [facility] [address] [id number] [place] [address]- 9087 Oct, [facility] [place] [facility] [address] [id number] [place] [address]- 9138 Oct, [facility] [place] [facility] [address] [id number] [place] [address]- 9640 Oct, [facility] [place] [facility] [address] [id number], [place] [address]- 7782 Sep, [facility] [place] [facility] [address] [id number] [place] [address]- 6868 Sep, [facility] [place] [facility] [address] [id number] [place] [address]- 9699 Sep, [facility] [place] [facility] [address] [id number] [place] [address]- 1722 Sep, [facility] [place] [facility] [address] [id number] [place] [address]- 7427 30 Aug, 2013 [facility] [place] [facility] [address] [id number] [place] [address]- 1105 30 Aug, 2013 [facility] [place] [facility] [address] [id number] [place] [address]- 3655 Aug, [facility] [place] [facility] [address] [id number] [place] [address]- 1733 Aug, [facility] [place] [facility] [address] [id number] [place] [address]- 2135 Aug, [facility] [place] [facility] [address] [id number] [place] [address]- 4632 Aug, [facility] [place] [facility] [address] [id number] [place] [address]- 1783 Aug, [facility] [place] [facility] [address] [id number] [place] [address]- 5733 Aug, [facility] [place] [facility] [address] [id number] [place] [address]- 4968 Aug, [facility] [place] [facility] [address] [id number] [place] [address]- 2745 Aug, [facility] [place] [facility] [address] [id number] [place] [address]- 9810 Aug, [facility] [place] [facility] [address] [id number] [place] [address]- 5633 Aug, [facility] [place] [facility] [address] [id number] [place] [address]- 2549 Aug, [facility] [place] [facility] [address] [id number] [place] [address]- 2422 Aug, [facility] [place] [facility] [address] [id number] [place] [address]- 3645 Aug, [facility] [place] [facility] [address] [id number] [place] [address]- 9849 Aug, [facility] [place] [facility] [address] [id number] [place] [address]- 1315 Aug, [facility] [place] [facility] [address] [id number] [place] [address]- 8374 Aug, [facility] [place] [facility] [address] [id number] [place] [address]- 8330 Aug, [facility] [place] [facility] [address] [id number] [place] [address]- 1028 Aug, [facility] [place] [facility] [address] [id number] [place] [address]- 2497 Aug, [facility] [place] [facility] [address] [id number] [place] [address]- 0379 Aug, [facility] [place] [facility] [address] [id number] [place] [address]- 1803 Aug, [facility] [place] [facility] [address] [id number] [place] [address]- 5512 Aug, [facility] [place] [facility] [address] [id number] [place] [address]- 9045 July, [facility] [place] [facility] [address] [id number] [place] [address]- 1117 July, [facility] [place] [facility] [address] [id number] [place] [address]- 6648 July, [facility] [place] [facility] [address] [id number] [place] [address]- 5383 July, [facility] [place] [facility] [address] [id number] [place] [address]- 5631 July, [facility] [place] [facility] [address] [id number] [place] [address]- 6780 July, [facility] [place] [facility] [address] [id number] [place] [address]- 3039 Jun, [facility] [place] [facility] [address] [id number] [place] [address]- 4726 Jun, [facility] [place] [facility] [address] [id number] [place] [address]- 2771 Jun, [facility] [place] [facility] [address] [id number] [place] [address]- 1796 Jun, [facility] [place] [facility] [address] [id number] [place] [address]- 9464 Jun, [facility] [place] [facility] [address] [id number] [place] [address]- 0000 Jun, [facility] [place] [facility] [address] [id number] [place] [address]- 6227 Jun, [facility] [place] [facility] [address] [id number] [place] [address]- 5310 Jun, [facility] [place] [facility] [address] [id number] [place] [address]- 7529 Jun, [facility] [place] [facility] [address] [id number] [place] [address]- 4312 Jun, [facility] [place] [facility] [address] [id number] [place] [address]- 0702 Jun, [facility] [place] [facility] [address] [id number] [place] [address]- 5231 Jun, [facility] [place] [facility] [address] [id number] [place] [address]- 4881 Jun, [facility] [place] [facility] [address] [id number] [place] [address]- 8429 Jun, [facility] [place] [facility] [address] [id number] [place] [address]- 5122 Jun, [facility] [place] [facility] [address] [id number] [place] [address]- 6765 May, [facility] [place] [facility] [address] [id number] [place] [address]- 9232 May, [facility] [place] [facility] [address] [id number] [place] [address]- 5420 May, [facility] [place] [facility] [address] [id number] [place] [address]- 9678 May, [facility] [place] [facility] [address] [id number] [place] [address]- 7810 May, [facility] [place] [facility] [address] [id number] [place] [address]- 8245 May, [facility] [place] [facility] [address] [id number] [place] [address]- 7312 May, [facility] [place] [facility] [address] [id number] [place] [address]- 3755 May, [facility] [place] [facility] [address] [id number] [place] [address]- 5607 May, [facility] [place] [facility] [address] [id number] [place] [address]- 2077 May, [facility] [place] [facility] [address] [id number] [place] [address]- 3348 May, [facility] [place] [facility] [address] [id number] [place] [address]- 4234 May, [facility] [place] [facility] [address] [id number] [place] [address]- 6002 May, [facility] [place] [facility] [address] [id number] [place] [address]- 6200 May, [facility] [place] [facility] [address] [id number] [place] [address]- 7116 May, [facility] [place] [facility] [address] [id number] [place] [address]- 4358 May, [facility] [place] [facility] [address] [id number] [place] [address]- 5559 May, [facility] [place] [facility] [address] [id number] [place] [address]- 2180 Apr, [facility] [place] [facility] [address] [id number] [place] [address]- 7614 Apr, [facility] [place] [facility] [address] [id number] [place] [address]- 7029 Apr, [facility] [place] [facility] [address] [id number] [place] [address]- 5882 Apr, [facility] [place] [facility] [address] [id number] [place] [address]- 6794 Apr, [facility] [place] [facility] [address] [id number] [place] [address]- 2905 Apr, [facility] [place] [facility] [address] [id number] [place] [address]- 2579 Apr, [facility] [place] [facility] [address] [id number] [place] [address]- 7262 Apr, [facility] [place] [facility] [address] [id number] [place] [address]- 4272 Apr, [facility] [place] [facility] [address] [id number] [place] [address]- 0442 Apr, [facility] [place] [facility] [address] [id number] [place] [address]- 6162 Apr, [facility] [place] [facility] [address] [id number], [place] [address]- 4393 Apr, [facility] [place] [facility] [address] [id number], [place] [address]- 1410 Apr, [facility] [place] [facility] [address] [id number] [place] [address]- 5373 Apr, [facility] [place] [facility] [address] [id number] [place] [address]- 3950 Apr, [facility] [place] [facility] [address] [id number] [place] [address]- 6559 Apr, [facility] [place] [facility] [address] [id number] [place] [address]- 9763 30 Mar, 2012 [facility] [address] [id number] [place] [address]- 0876 30 Mar, 2012 [facility] [address] [id number] [place]706 30 Mar, 2012 [facility] [address] [id number] [place] [address]- 6450 30 Mar, 2012 [facility] [address] [id number] [place] [address]- 5198 18 Mar, 2012 [facility] [address] [id number] [place] [address]- 6461 18 Mar, 2013 [facility] [address] [id number] [place] [address]- 7173 18 Mar, 2013 [facility] [address] [id number] [place] [address]- 7618 18 Mar, 2013 [facility] [address] [id number] [place] [address]- 4728 17 Mar, 2013 [facility] [address] [id number] [place] [address]- 8541 17 Mar, 2013 [facility] [address] [id number] [place] [address]- 7231 05 Mar, 2013 [facility] [address] [id number] [place] [address]- 7601 05 Mar, 2013 [facility] [place] [facility] [address] [id number] [place] [address]- 8426 04 Mar, 2013 [facility] [place] [facility] [address] [id number] [place] [address]- 2426 04 Mar, 2013 [facility] [place] [facility] [address] [id number] [place] 5361 04 Mar, 2013 [facility] [place] [facility] [address] [id number] [place] [address]- 8608 04 Mar, 2013 [facility] [place] [facility] [address] [id number] [place] [address]- 9726 Mar, [facility] [place] [facility] [address] [id number] [place] [address]- 2548 Mar, [facility] [place] [facility] [address] [id number] [place] [address]- 8899 Jan, [facility] [place] [facility] [address] [id number] [place] [address]- 7949 Jan, [facility] [place] [facility] [address] [id number] [place] [address]- 4490 Jan, [facility] [place] [facility] [address] [id number] [place] [address]- 2994 Jan, [facility] [place] [facility] [address] [id number] [place] [address]- 3438 Nov, [facility] [place] [facility] [address] [id number] [place] [address]- 2625 Nov, [facility] [place] [facility] [address] [id number] [place] [address]- 7887 Nov, [facility] [place] [facility] [address] [id number] [place] [address]- 2414 Nov, [facility] [place] [facility] [address] [id number] [place] [address]- 1671 Oct, [facility] [place] [facility] [address] [id number] [place] [address]- 0213 Oct, [facility] [place] [facility] [address] [id number] [place] [address]- 6893 Oct, [facility] [place] [facility] [address] [id number] [place] [address]- 0406 Oct, [facility] [place] [facility] [address] [id number] [place] [address]- 5863 Sep, [facility] [place] [facility] [address] [id number] [place] [address]- 8686 Sep, [facility] [place] [facility] [address] [id number] [place] [address]- 5744 Sep, [facility] [place] [facility] [address] [id number] [place] [address] Sep, [facility] [place] [facility] [address] [id number] [place] [address] Sep, [facility] [place] [facility] [address] [id number] [place] [address] Sep, [facility] [place] [facility] [address] [id number] [place] [address] Sep, [facility] [place] [facility] [address] [id number] [place] [address] Sep, [facility] [place] [facility] [address] [id number] [place] [address] Sep, [facility] [place] [facility] [address] [id number] [place] [address] Aug, [facility] [place] [facility] [address] [id number] [place] [address] Aug, [facility] [place] [facility] [address] [id number] [place] [address] Aug, [facility] [place] [facility] [address] [id number] [place] [address] Aug, [facility] [place] [facility] [address] [id number] [place] [address] July, [facility] [place] [facility] [address] [id number] [place] [address] July, [facility] [place] [facility] [address] [id number] [place] [address] July, [facility] [place] [facility] [address] [id number] [place] [address] July, [facility] [place] [facility] [address] [id number] [id number] [address] July, [facility] [address] [id number] [address] July, [facility] [id number] [address] July, [facility] [id number] [address] Jun, [facility] [id number] [address] May, [facility] [id number] [address] May, [facility] [id number] [address] May, [facility] [id number] [address] May, [facility] [id number] [address] May, [facility] [id number] [address] May, [facility] [address] [id number] [address] May, [facility] [address] [id number] [address] May, IMMUNIZATIONS No Known Immunizations SOCIAL HISTORY Never Assessed REASON FOR VISIT FY PLAN OF CARE VITAL SIGNS MEDICATIONS Unknown [...] tubal ligation 1989 Surgical History section x2 1986 & 1989 Surgical History left below the knee amputation-gangrene 09/2013 Surgical History port placement 11/05/2014 Surgical History Port placement on left arm 11/2014 Hospitalization History fluid on the lungs 10/2014 Hospitalization History surgeries Hospitalization History breathing difficulties and heart problems 03/2015 Hospitalization History Pneumonia 04/2015
--- OUTSIDE RECORDS SUMMARY | 2017-12-18 20:19 | XMS REPORT ---
Author Author MCKENNA HEBERT Organization [facility] Address [address] [place] [address] Care Team Providers Care Crystal Report Developer Name Role Phone MCKENNA HEBERT Unavailable PROBLEMS Type Condition ICD9-CM Code SJZ63-UN Code Onset Dates Condition Status SNOMED Code Problem Diabetes type 2, controlled E11.9 Active 30747753 Problem Neuropathy G62.9 Active 897548740 Problem Renal failure N19 Active 39614875 Problem Cellulitis of right lower extremity L03.115 Active 061949851 Problem Angina pectoris I20.9 Active 361830927 Problem Seasonal allergic rhinitis due to other allergic trigger J30.89 Active 518700878 Problem Intra-dialytic hypotension I95.3 Active 347087013 Problem Amput below knee, unilat S88.119A Active 81773985 Problem Chronic congestive heart failure, unspecified heart failure type I50.9 Active 40670309 Problem Chronic congestive heart failure, unspecified congestive heart failure type I50.9 Active 71603027 ALLERGIES No Information ENCOUNTERS Encounter Location Date Diagnosis [facility] [id number] [place] [address] 57350- 7605 July, [facility] [address], [place] [address]- 6305 Jun, [facility] [id number] [place] [address] 86882- 5496 Jun, [facility] [id number] [place] [address] 35371- 3338 Jun, Diabetes type 2, controlled E11.9 [facility] [address], [place] [address]- 8364 Jun, [facility] [address] [place] [address] 93310- 0587 May, [facility] [address] [place] [address] 91769- 9382 May, [facility] [address] 84259- 3101 May, [facility] [id number] [place] [address] 73629- 7675 May, Chronic congestive heart failure, unspecified congestive heart failure type I50.9 [facility] [address] 11534- 7161 May, Diabetes type 2, controlled E11.9 ; BMI 50.0-59.9, adult Z68.43 ; Chronic congestive heart failure, unspecified heart failure type I50.9 ; Angina pectoris I20.9 ; Seasonal allergic rhinitis due to other allergic trigger J30.89 and Renal failure N19 [facility] [id number] [place] [address] [id number] May, [facility] [id number] [place] [address] 83686- 1585 May, [facility] [id number] [place] [address] 26249- 2177 May, [facility] [id number] [place] [address] 03369- 9485 May, [place] [id number] [place] [address] 04584- 8517 May, [facility] [id number] [place] [address] 19809- 0755 Apr, BMI 50.0-59.9, adult Z68.43 [facility] [address] 13889- 0991 Apr, BMI 50.0-59.9, adult Z68.43 ; Post-procedural fever R50.82 and Bronchitis J40 [facility] [address] 55295- 8280 Apr, Chronic congestive heart failure, unspecified congestive heart failure type I50.9 [facility] [address] [id number], [place] [address]- 5205 Jan, [facility] [address] [facility] [id number], [place] [address]- 2647 Jan, Diabetes type 2, controlled E11.9 [facility] [address] [facility] [id number] [place] [address]- 3198 Jan, Neuropathy G62.9 [facility] [address] [id number] [place] [address]- 3407 Jan, [facility] [address] [facility] [id number] [place] [address] 26592- 9841 Jan, [facility] [address] [facility] [id number], [place] [address]- 7000 Jan, [facility] [address] [facility] [id number], [place] [address]- 6468 Jan, [facility] [address] [facility] [id number], [place] [address]- 0888 Jan, [facility] [address] [id number], [place] [address]- 6049 Dec, [facility] [address] [facility] [id number], [place] [address]- 9261 Dec, [facility] [address] [facility] [id number], [place] [address]- 5353 Dec, Diabetes type 2, controlled E11.9 [facility] [address] [facility] [id number], [place] [address]- 7052 Dec, [facility] [address] [facility] [id number], [place] [address]- 8332 Dec, [facility] [address] [facility] [id number], [place] [address]- 0162 Dec, Chronic congestive heart failure, unspecified congestive heart failure type I50.9 [facility] [address] [facility] [id number] [place] [address]- 2573 Dec, [facility] [address] [facility] [id number], [place] [address]- 8851 Dec, [facility] [address] [facility] [id number] [place] [address]- 4987 Nov, Chronic congestive heart failure, unspecified congestive heart failure type I50.9 [facility] [address] [facility] [id number] [place] [address]- 6156 Nov, Chronic congestive heart failure, unspecified congestive heart failure type I50.9 [facility] [address] [facility] [id number], [place] [address]- 9280 Nov, [facility] [address] [facility] [id number], [place] [address]- 1420 Oct, [facility] [address] [facility] [id number], [place] [address]- 7093 Oct, [facility] [address] [facility] [id number], [place] [address]- 4241 Oct, Chronic congestive heart failure, unspecified congestive heart failure type I50.9 [facility] [address] [facility] [id number], [place] [address]- 0788 Oct, [facility] [address] [facility] [id number], [place] [address]- 5309 Oct, Pneumonia of both lungs due to infectious organism, unspecified part of lung J18.9 [facility] [address] [facility] [id number], [place] [address]- 7383 Oct, [facility] [address] [facility] [id number], [place] [address]- 2668 Oct, Diabetes type 2, controlled E11.9 [facility] [address] [facility] [id number], [place] [address]- 0272 Oct, Diabetes type 2, controlled E11.9 [facility] [address] [facility] [id number] [place] [address] 2546 Sep, [facility] [address] [facility] [id number] [place] [address], [place] [address] 2546 Sep, Neuropathy G62.9 [facility] [address] [id number] [place] [address] 2546 Aug, Intra-dialytic hypotension I95.3 [facility] [id number] [place] [address], [place] [address] 2546 July, [facility] [id number] [place] [address], [place] [address] 2546 July, [facility] [id number] [place] [address] 96116 2546 July, [facility] [id number] [place] [address] 77299 2546 July, Amput below knee, unilat S88.119A [facility] [address] [id number] [place] [address] 2546 May, [facility] [id number] [place] [address], [place] [address] 2546 May, Neuropathy G62.9 [facility] [address], [place] [address] 2546 May, [facility] [address], [place] [address] 2546 May, [facility] [address] [place] [address] 2546 May, [facility] [id number] [place] [address], [place] [address] 2546 May, [facility] [address], [place] [address] 2546 May, Neuropathy G62.9 [facility] [address] [id number] [place] [address]- 5269 Apr, [facility] [address] [place] [address]- 1074 Apr, [facility] [address] [place] [address]- 4280 Apr, Diabetes type 2, controlled E11.9 and Renal failure N19 [facility] [id number] [place] [address], [place] [address] -0799 Apr, [facility] [address] [id number] [place] [address]- 2828 Apr, [facility] [id number] [place] [address], [place] [address]- 4807 Mar, [facility] [id number] [place] [address], [place] [address]- 2630 Mar, [facility] [id number] [place] [address], [place] [address]- 7638 Mar, [facility] [address] [place] [address]- 1592 Mar, [facility] [id number] [place] [address]- 2607 Mar, [facility] [id number] [place] [address]- 8203 Jan, Localized edema R60.0 [facility] [address], [place] [address]- 1550 Jan, [facility] [address] [id number] [place] [address]- 8350 Jan, [facility] [address] [place] [address]- 0067 Jan, [facility] [address] [place] [address]- 3502 Jan, [facility] [id number] [place] [address] 05833- 4329 Jan, [facility] [id number] [place] [address] 53891- 3298 Jan, [facility] [id number] [place] [address] 56874- 2308 Dec, Diabetes type 2, controlled E11.9 and Chronic nonintractable headache, unspecified headache type R51 [facility] [id number] [place] [address] 96280- 3681 Dec, [facility] [id number] [place] [address] 01508- 7623 Dec, [facility] [id number] [place] [address] 95017- 7411 Nov, [facility] [id number] [place] [address] 32766- 2361 Nov, [facility] [id number] [place] [address] 52707- 5326 Oct, [facility] [id number] [place] [address] 49543- 4049 Oct, Migraine without status migrainosus, not intractable, unspecified migraine type G43.909 [facility] [id number] [place] [address] 46786- 8639 Oct, [facility] [id number] [place] [address] 17601- 7254 Sep, Amput below knee, unilat S88.119A and Neuropathy G62.9 [facility] [id number] [place] [address] 30945- 4201 Sep, [facility] [id number] [place] [address] 14367- 1240 Sep, [facility] [id number] [place] [address] 22218- 2113 Sep, [facility] [address] [facility] [id number] [place] [address]- 7348 30 Aug, 2015 [facility] [address] [facility] [id number] [place] [address]- 7317 Aug, [facility] [address] [facility] [id number] [place] [address]- 6910 17 Aug, 2015 Diabetes type 2, controlled E11.9 [facility] [address] [facility] [id number] [place] [address]- 7363 Aug, [facility] [address] [facility] [id number] [place] [address]- 5189 Jun, Diabetes type 2, controlled E11.9 and Neuropathy G62.9 [facility] [address] [facility] [id number] [place] [address]- 9766 Jun, [facility] [address] [place] [address]- 1778 Jun, [facility] [address] [facility] [id number] [place] [address]- 3180 Jun, [facility] [address] [place] [address]- 9839 Jun, [facility] [address] [place] [address]- 5245 May, [facility] [address] [facility] [id number] [place] [address]- 7089 May, Diabetes type 2, controlled E11.9 [facility] [address] [facility] [id number], [place] [address]- 8553 May, [facility] [address] [id number] [place] [address]- 3608 May, [facility] [address] [facility] [id number] [place] [address]- 0013 May, [facility] [address], [place] [address]- 8551 May, [facility] [address], [place] [address]- 7286 May, [facility] [address], [place] [address]- 6966 May, [facility] [address], [place] [address]- 7556 May, [facility] [address] [place] [address] 76468- 7690 May, COPD (chronic obstructive pulmonary disease) J44.9 [facility] [address] [place] [address] 79021- 5185 May, [facility] [address], [place] [address]- 4392 May, [facility] [address] [place] [address] 52380- 9190 May, [facility] [address], [place] [address]- 4267 May, [facility] [address], [place] [address]- 7898 May, [facility] [address], [place] [address]- 2390 May, Renal failure N19 and Pneumonia, organism unspecified, unspecified laterality, unspecified part of lung J18.9 [facility] [address], [place] [address]- 4120 Apr, [facility] [address], [place] [address]- 3859 Apr, [facility] [address], [place] [address]- 8749 Apr, [facility] [address], [place] [address]- 3012 Apr, Diabetes mellitus 250.00 [facility] [address] [id number] [place] [address]- 9513 14 Apr, 2015 [facility] [address] [id number] [place] [address]- 2066 14 Apr, 2015 [facility] [address] [id number] [place] [address]- 2141 13 Apr, 2015 [facility] [address] [id number] [place] [address]- 9824 07 Apr, 2015 [facility] [address] [id number] [place] [address]- 6414 31 Mar, 2015 [facility] [address] [id number] [place] [address]- 1619 28 Mar, 2015 [facility] [address] [place] [address]- 5622 Mar, [facility] [address] [id number] [place] [address]- 5160 16 Mar, 2015 Renal failure N19 [facility] [address] [id number] [place] [address]- 1835 14 Mar, 2015 [facility] [address] [id number] [place] [address]- 3894 Mar, [facility] [address] [id number] [place] [address]- 9129 Mar, [facility] [address] [id number] [place] [address]- 1212 24 Jan, 2015 [facility] [place] [facility] [address] [id number] [place] [address]- 5599 18 Jan, 2015 [facility] [address] [facility] [id number] [place] [address]- 8765 17 Jan, 2015 [facility] [place] [facility] [address] [id number] [place] [address]- 5769 13 Jan, 2015 [facility] [address] [id number] [place] [address]- 3192 Dec, [facility] [address] [id number] [place] [address]- 2012 Dec, [facility] [address] [facility] [id number] [place] [address]- 8252 Dec, [facility] [address] [facility] [id number] [place] [address]- 6277 Nov, [facility] [address] [id number] [place] [address]- 8017 Nov, [facility] [address] [id number] [place] [address]- 0674 Nov, [facility] [address] [id number] [place] [address]- 7878 Oct, [facility] [address] [place] [address]- 3567 Oct, [facility] [address] [id number] [place] [address]- 9369 Oct, Renal failure 586 and Obesity 278.00 [facility] [address] [place] [address]- 3910 Oct, [facility] [address] [id number] [place] [address]- 8584 Oct, [facility] [address], [place] [address]- 6268 Oct, [facility] [address] [id number], [place] [address]- 1828 Sep, [facility] [address] [place] [address]- 0285 Sep, [facility] [address] [id number] [place] [address]- 7323 Sep, Diabetes mellitus 250.00 and Congestive heart failure, unspecified 428.0 [facility] [address] [id number] [place] [address]- 9854 Aug, [facility] [address] [id number] [place] [address]- 5070 Aug, [facility] [address] [id number] [place] [address]- 6935 Aug, [facility] [address] [id number] [place] [address] July, [facility] [address] [id number] [place] [address] July, [facility] [address] [id number] [place] [address] July, Heart murmur, systolic 785.2 [facility] [address] [id number] [place] [address] July, [facility] [address] [id number] [place] [address] July, [facility] [address] [id number] [place] [address] Jun, [facility] [address] [id number] [place] [address] Jun, [facility] [address] [id number] [place] [address] May, [facility] [address] [id number], [place] [address] May, [facility] [address] [id number] [place] [address] May, [facility] [address] [id number] [place] [address] May, [facility] [address] [id number] [place] [address] May, [facility] [address] [id number], [place] [address] 16 May, 2014 [facility] [place] [facility] [address] [facility] [id number] [place] [address] 10 May, 2014 [facility] [place] [facility] [address] [facility] [id number] [place] [address] 10 May, 2014 [facility] [place] [facility] [address] [facility] [id number] [place] [address] May, 2014 [facility] [place] [facility] [address] [facility] [id number] [place] [address] May, 2014 [facility] [place] [facility] [address] [facility] [id number] [place] [address] May, 2014 [facility] [place] [facility] [address] [facility] [id number] [place] [address] May, 2014 [facility] [place] [facility] [address] [facility] [id number] [place] [address] May, 2014 [facility] [place] [facility] [address] [facility] [id number] [place] [address] 23 May, 2014 [facility] [place] [facility] [address] [facility] [id number] [place] [address] 18 May, 2014 [facility] [place] [facility] [address] [facility] [id number] [place] [address] 18 May, 2014 [facility] [place] [facility] [address] [facility] [id number] [place] [address] 18 May, 2014 [facility] [place] [facility] [address] [facility] [id number], [place] [address] 18 May, 2014 [facility] [place] [facility] [address] [facility] [id number] [place] [address] 18 May, 2014 [facility] [place] [facility] [address] [facility] [id number] [place] [address] 18 May, 2014 [facility] [place] [facility] [address] [facility] [id number] [place] [address] May, 2014 [facility] [place] [facility] [address] [id number] [place] [address] May, 2014 [facility] [place] [facility] [address] [address] [id number] [place] [address] May, [facility] [place] [facility] [address] [id number] [place] [address] 48[address] May, [facility] [place] [facility] [address] [id number] [place] [address]- 5226 May, [facility] [place] [facility] [address] [id number] [place] [address]- 0402 May, [facility] [place] [facility] [address] [id number] [place] [address]- 3327 Apr, [facility] [place] [facility] [address] [id number] [place] [address]- 3853 Apr, [facility] [place] [facility] [address] [id number] [place] [address]- 5826 Apr, [facility] [place] [facility] [address] [id number] [place] [address]- 6545 Apr, [facility] [place] [facility] [address] [id number] [place] [address]- 2634 Apr, [facility] [place] [facility] [address] [id number] [place] [address]- 9411 Apr, [facility] [place] [facility] [address] [id number] [place] [address]- 4437 Apr, [facility] [place] [facility] [address] [id number] [place] [address]- 5658 Apr, [facility] [place] [facility] [address] [id number] [place] [address]- 2757 Mar, [facility] [place] [facility] [address] [id number] [place] [address]- 1221 Mar, [facility] [place] [facility] [address] [id number] [place] [address]- 0576 Mar, [facility] [address] [id number] [place] [address]- 5546 Mar, [facility] [place] [facility] [address] [id number] [place] [address]- 4906 Mar, [facility] [address] [id number] [place] [address]- 1105 Mar, [facility] [place] [facility] [address] [id number] [place] [address]- 9384 Mar, [facility] [place] [facility] [address] [id number] [place] [address]- 3321 Mar, [facility] [place] [facility] [address] [id number] [place] [address]- 4551 Mar, [facility] [address] [id number] [place] [address]- 4901 Mar, [facility] [place] [facility] [address] [id number] [place] [address]- 8521 Mar, [facility] [place] [facility] [address] [id number] [place] [address]- 8128 Mar, [facility] [address] [id number] [place] [address]- 6731 11 Mar, 2014 [facility] [place] [facility] [address] [id number] [place] [address]- 9406 11 Mar, 2014 [facility] [place] [facility] [address] [id number] [place] [address]- 5246 10 Mar, 2014 [facility] [place] [facility] [address] [id number] [place] [address]- 4626 Mar, [facility] [place] [facility] [address] [id number] [place] [address]- 8966 10 Mar, 2014 [facility] [place] [facility] [address] [id number] [place] [address]- 3693 Mar, [facility] [place] [facility] [address] [id number] [place] [address]- 6605 Mar, [facility] [place] [facility] [address] [id number] [place] [address]- 8937 Mar, [facility] [place] [facility] [address] [id number] [place] [address]- 3561 Mar, [facility] [place] [facility] [address] [id number] [place] [address]- 4386 Mar, [facility] [place] [facility] [address] [id number] [place] [address]- 5735 Jan, [facility] [place] [facility] [address] [id number] [place] [address]- 6461 Jan, [facility] [place] [facility] [address] [id number] [place] [address]- 6852 Jan, [facility] [place] [facility] [address] [id number] [place] [address]- 4161 Jan, [facility] [place] [facility] [address] [id number] [place] [address]- 2301 Jan, [facility] [place] [facility] [address] [id number] [place] [address]- 3115 Jan, [facility] [place] [facility] [address] [id number] [place] [address]- 8268 Jan, [facility] [place] [facility] [address] [id number], [place] [address]- 1039 Jan, [facility] [place] [facility] [address] [id number] [place] [address]- 1043 Jan, [facility] [place] [facility] [address] [id number] [place] [address]- 7707 Jan, [facility] [place] [facility] [address] [id number] [place] [address]- 4874 Jan, [facility] [place] [facility] [address] [id number], [place] [address]- 0673 Jan, [facility] [place] [facility] [address] [id number] [place] [address]- 1560 Jan, [facility] [place] [facility] [address] [id number] [place] [address]- 2726 Jan, [facility] [place] [facility] [address] [id number] [place] [address]- 3278 Jan, [facility] [place] [facility] [address] [id number] [place] [address]- 4473 Jan, [facility] [place] [facility] [address] [id number] [place] [address]- 7493 Jan, [facility] [place] [facility] [address] [id number] [place] [address]- 7943 Jan, [facility] [place] [facility] [address] [id number] [place] [address]- 5011 Jan, [facility] [place] [facility] [address] [id number] [place] [address]- 7776 Jan, [facility] [place] [facility] [address] [id number] [place] [address]- 0594 Dec, [facility] [place] [facility] [address] [id number] [place] [address]- 8133 Dec, [facility] [place] [facility] [address] [id number], [place] [address]- 2082 Dec, [facility] [place] [facility] [address] [id number], [place] [address]- 3851 Dec, [facility] [place] [facility] [address] [id number] [place] [address]- 3185 Dec, [facility] [place] [facility] [address] [id number], [place] [address]- 5050 Dec, [facility] [place] [facility] [address] [id number] [place] [address]- 9096 Dec, [facility] [place] [facility] [address] [id number] [place] [address]- 6740 10 Dec, 2013 [facility] [place] [facility] [address] [id number] [place] [address]- 4161 Dec, [facility] [place] [facility] [address] [id number] [place] [address]- 8296 Dec, [facility] [place] [facility] [address] [id number] [place] [address]- 5915 Dec, [facility] [place] [facility] [address] [id number] [place] [address]- 0046 Dec, [facility] [place] [facility] [address] [id number] [place] [address]- 4664 Dec, [facility] [place] [facility] [address] [id number] [place] [address]- 8966 Dec, [facility] [place] [facility] [address] [id number] [place] [address]- 1161 Dec, [facility] [place] [facility] [address] [id number] [place] [address]- 1995 22 Nov, 2013 [facility] [place] [facility] [address] [id number] [place] [address]- 0429 22 Nov, 2013 [facility] [place] [facility] [address] [id number] [place] [address]- 1935 19 Nov, 2013 [facility] [place] [facility] [address] [id number] [place] [address]- 7360 19 Nov, 2013 [facility] [place] [facility] [address] [id number] [place] [address]- 2542 13 Nov, 2013 [facility] [place] [facility] [address] [id number] [place] [address]- 2546 13 Nov, 2013 [facility] [place] [facility] [address] [id number] [place] [address]- 2542 10 Nov, 2013 [facility] [place] [facility] [address] [id number] [place] [address]- 4480 Nov, [facility] [place] [facility] [address] [id number] [place] [address]- 7655 Nov, 2013 [facility] [place] [facility] [address] [id number] [place] [address]- 8847 Nov, [facility] [place] [facility] [address] [id number] [place] [address]- 4210 Nov, [facility] [place] [facility] [address] [id number] [place] [address]- 8780 Nov, [facility] [place] [facility] [address] [id number] [place] [address]- 2884 Nov, [facility] [place] [facility] [address] [id number] [place] [address]- 5751 Oct, [facility] [place] [facility] [address] [id number] [place] [address]- 5212 Oct, [facility] [place] [facility] [address] [id number] [place] [address]- 2557 Oct, [facility] [place] [facility] [address] [id number] [place] [address]- 9374 Oct, [facility] [place] [facility] [address] [id number] [place] [address]- 3042 Oct, [facility] [place] [facility] [address] [id number] [place] [address]- 3171 Sep, [facility] [place] [facility] [address] [id number], [place] [address]- 4158 Sep, [facility] [place] [facility] [address] [id number] [place] [address]- 4331 Sep, [facility] [place] [facility] [address] [id number] [place] [address]- 8818 Sep, [facility] [place] [facility] [address] [id number] [place] [address]- 2605 Aug, [facility] [place] [facility] [address] [id number] [place] [address]- 2512 30 Aug, 2013 [facility] [place] [facility] [address] [id number] [place] [address]- 9268 Aug, [facility] [place] [facility] [address] [id number] [place] [address]- 8917 Aug, [facility] [place] [facility] [address] [id number] [place] [address]- 7330 Aug, [facility] [place] [facility] [address] [id number] [place] [address]- 4210 Aug, [facility] [place] [facility] [address] [id number] [place] [address]- 3738 Aug, [facility] [place] [facility] [address] [id number] [place] [address]- 7207 Aug, [facility] [place] [facility] [address] [id number] [place] [address]- 3185 Aug, [facility] [place] [facility] [address] [id number] [place] [address]- 4653 Aug, [facility] [place] [facility] [address] [id number] [place] [address]- 6507 Aug, [facility] [place] [facility] [address] [id number] [place] [address]- 3047 Aug, [facility] [place] [facility] [address] [id number] [place] [address]- 4253 Aug, [facility] [place] [facility] [address] [id number] [place] [address]- 4873 Aug, [facility] [place] [facility] [address] [id number] [place] [address]- 4880 Aug, [facility] [place] [facility] [address] [id number] [place] [address]- 6361 Aug, [facility] [place] [facility] [address] [id number] [place] [address]- 6470 12 Aug, 2013 [facility] [place] [facility] [address] [id number] [place] [address]- 8010 Aug, [facility] [place] [facility] [address] [id number] [place] [address]- 7516 Aug, [facility] [place] [facility] [address] [id number] [place] [address]- 5143 Aug, [facility] [place] [facility] [address] [id number] [place] [address]- 7195 Aug, [facility] [place] [facility] [address] [id number] [place] [address]- 6300 Aug, [facility] [place] [facility] [address] [id number] [place] [address]- 6979 Aug, [facility] [place] [facility] [address] [id number] [place] [address]- 8382 Aug, [facility] [place] [facility] [address] [id number] [place] [address]- 4254 July, [facility] [place] [facility] [address] [id number] [place] [address]- 6790 July, [facility] [place] [facility] [address] [id number] [place] [address]- 1453 July, [facility] [place] [facility] [address] [id number] [place] [address]- 8134 July, [facility] [place] [facility] [address] [id number] [place] [address]- 6926 July, [facility] [place] [facility] [address] [id number] [place] [address]- 4797 July, [facility] [place] [facility] [address] [id number] [place] [address]- 2919 Jun, [facility] [place] [facility] [address] [id number] [place] [address]- 9744 Jun, [facility] [place] [facility] [address] [id number] [place] [address]- 3378 Jun, [facility] [place] [facility] [address] [id number] [place] [address]- 8323 Jun, [facility] [place] [facility] [address] [id number] [place] [address]- 4020 Jun, [facility] [place] [facility] [address] [id number] [place] [address]- 4235 Jun, [facility] [place] [facility] [address] [id number] [place] [address]- 3769 Jun, [facility] [place] [facility] [address] [id number] [place] [address]- 8637 Jun, [facility] [place] [facility] [address] [id number] [place] [address]- 5989 Jun, [facility] [place] [facility] [address] [id number] [place] [address]- 7384 Jun, [facility] [place] [facility] [address] [id number] [place] [address]- 0029 Jun, [facility] [place] [facility] [address] [id number] [place] [address]- 2978 Jun, [facility] [place] [facility] [address] [id number] [place] [address]- 2098 Jun, [facility] [place] [facility] [address] [id number] [place] [address]- 6812 Jun, [facility] [place] [facility] [address] [id number] [place] [address]- 3304 Jun, [facility] [place] [facility] [address] [id number] [place] [address]- 1498 May, [facility] [place] [facility] [address] [id number] [place] [address]- 8632 May, [facility] [place] [facility] [address] [id number] [place] [address]- 0785 May, [facility] [place] [facility] [address] [id number] [place] [address]- 2845 May, [facility] [place] [facility] [address] [id number] [place] [address]- 0757 May, [facility] [place] [facility] [address] [id number] [place]68 May, [facility] [place] [facility] [address] [id number] [place] [address]- 4836 May, [facility] [place] [facility] [address] [id number] [place] [address]- 5093 May, [facility] [place] [facility] [address] [id number] [place] [address]- 8975 May, [facility] [place] [facility] [address] [id number] [place] [address]- 4388 May, [facility] [place] [facility] [address] [id number] [place] [address]- 4992 May, [facility] [place] [facility] [address] [id number] [place] [address]- 2681 May, [facility] [place] [facility] [address] [id number] [place] [address]- 3584 May, [facility] [place] [facility] [address] [id number] [place] [address]- 5818 May, [facility] [place] [facility] [address] [id number] [place] [address]- 0183 May, [facility] [place] [facility] [address] [id number] [place] [address]- 7456 May, [facility] [place] [facility] [address] [id number] [place] [address]- 7505 May, [facility] [place] [facility] [address] [id number] [place] [address]- 5776 Apr, [facility] [place] [facility] [address] [id number] [place] [address]- 3635 Apr, [facility] [place] [facility] [address] [id number] [place] [address]- 7203 Apr, [facility] [place] [facility] [address] [id number] [place] [address]- 5585 Apr, [facility] [place] [facility] [address] [id number] [place] [address]- 8214 Apr, [facility] [place] [facility] [address] [id number] [place] [address]- 2858 Apr, [facility] [place] [facility] [address] [id number] [place] [address]- 9346 Apr, [facility] [place] [facility] [address] [id number] [place] [address]- 8021 Apr, [facility] [place] [facility] [address] [id number] [place] [address]- 5428 Apr, [facility] [place] [facility] [address] [id number] [place] [address]- 9965 Apr, [facility] [place] [facility] [address] [id number] [place] [address]- 4769 Apr, [facility] [place] [facility] [address] [id number] [place] [address]- 9218 Apr, [facility] [place] [facility] [address] [id number], [place] [address]- 8820 Apr, [facility] [place] [facility] [address] [id number], [place] [address]- 4527 Apr, [facility] [place] [facility] [address] [id number] [place] [address]- 0482 Apr, [facility] [place] [facility] [address] [id number] [place] [address]- 0709 Apr, [facility] [place] [facility] [address] [id number] [place] [address]- 0701 Mar, [facility] [place] [facility] [address] [id number] [place] [address]- 9341 30 Mar, 2012 [facility] [address] [id number] [place] [address]- 7596 30 Mar, 2012 [facility] [address] [id number] [place] 5156 30 Mar, 2012 [facility] [address] [id number] [place] [address]- 0024 18 Mar, 2012 [facility] [address] [id number] [place] [address]- 0925 18 Mar, 2012 [facility] [address] [id number] [place] 7089 18 Mar, 2013 [facility] [address] [id number] [place] [address]- 6930 18 Mar, 2013 [facility] [address] [id number] [place] [address]- 8898 17 Mar, 2013 [facility] [address] [id number] [place] [address]- 2194 17 Mar, 2013 [facility] [address] [id number] [place] [address]- 8568 05 Mar, 2013 [facility] [address] [id number] [place] [address]- 2781 05 Mar, 2013 [facility] [address] [id number] [place] [address]- 3464 04 Mar, 2013 [facility] [place] [facility] [address] [id number] [place] [address]- 0670 04 Mar, 2013 [facility] [place] [facility] [address] [id number] [place] [address]- 1795 04 Mar, 2013 [facility] [place] [facility] [address] [id number] [place] [address]- 6378 04 Mar, 2013 [facility] [place] [facility] [address] [id number] [place] [address]- 4859 02 Mar, 2013 [facility] [place] [facility] [address] [id number] [place] [address]- 0706 Mar, [facility] [place] [facility] [address] [id number] [place] [address]- 5669 Jan, [facility] [place] [facility] [address] [id number] [place] [address]- 1642 Jan, [facility] [place] [facility] [address] [id number] [place] [address]- 9162 Jan, [facility] [place] [facility] [address] [id number] [place] [address]- 7137 Jan, [facility] [place] [facility] [address] [id number] [place] [address]- 4476 Nov, [facility] [place] [facility] [address] [id number] [place] [address]- 0006 Nov, [facility] [place] [facility] [address] [id number] [place] [address]- 7446 Nov, [facility] [place] [facility] [address] [id number] [place] [address]- 7474 Nov, [facility] [place] [facility] [address] [id number] [place] [address] Oct, [facility] [place] [facility] [address] [id number] [place] [address] Oct, [facility] [place] [facility] [address] [id number] [place] [address] Oct, [facility] [place] [facility] [address] [id number] [place] [address] Oct, [facility] [place] [facility] [address] [id number] [place] [address] Sep, [facility] [place] [facility] [address] [id number] [place] [address] Sep, [facility] [place] [facility] [address] [id number] [place] [address] Sep, [facility] [address] [id number] [place] [address] Sep, [facility] [place] [facility] [address] [id number] [place] [address] Sep, [facility] [place] [facility] [address] [id number] [place] [address] Sep, [facility] [place] [facility] [address] [id number] [place] [address] Sep, [facility] [place] [facility] [address] [id number] [place] [address] Sep, [facility] [place] [facility] [address] [id number] [place] [address] Sep, [facility] [place] [facility] [address] [id number] [place] [address] Aug, [facility] [place] [facility] [address] [id number] [place] [address] Aug, [facility] [place] [facility] [address] [id number] [place] [address] Aug, [facility] [place] [facility] [address] [id number] [place] [address] Aug, [facility] [place] [facility] [address] [id number] [place] [address] July, [facility] [place] [facility] [address] [id number] [place] [address] July, [facility] [place] [facility] [address] [id number] [place] [address] July, [facility] [place] [facility] [address] [id number] [place] [address] July, [facility] [place] [facility] [address] [id number] [place] [address] July, [facility] [place] [facility] [address] [id number], [place] [address] July, [facility] [address] [id number] [address] July, [facility] [id number], [place] [address] Jun, [facility] [id number], [place] [address] May, [facility] [id number], [place] [address] May, [facility] [id number], [place] [address] May, [facility] [id number], [place] [address] May, [facility] [id number], [place] [address] May, [facility] [id number], [place] [address] May, [facility] [id number], [place] [address] May, [facility] [address] [id number], [place] [address] May, IMMUNIZATIONS No Known Immunizations SOCIAL HISTORY Never Assessed REASON FOR VISIT Lab (walk-in) PLAN OF CARE VITAL SIGNS MEDICATIONS Unknown Medications RESULTS No Results PROCEDURES Procedure Date Ordered Result Body Site EKG, TRACING (IN-HOUSE) 2016-12-06 N/A ELECTROCARDIOGRAM, TRACING Dec 06, 2016 INSTRUCTIONS MEDICATIONS ADMINISTERED No Known Medications [...] 1989 Surgical History section x2 1985 & 1990 Surgical History left below the knee amputation-gangrene 09/2013 Surgical History port placement 11/05/2014 Surgical History Port placement on left arm 11/2014 Hospitalization History fluid on the lungs 10/2014 Hospitalization History surgeries Hospitalization History breathing difficulties and heart problems 03/2015 Hospitalization History Pneumonia 04/2015
--- OUTSIDE RECORDS SUMMARY | 2017-12-18 20:21 | XMS REPORT ---
Author Author MCKENNA HEBERT Organization [facility] Address [address] [place] [address] Care Team Providers Care Saxophone Player Name Role Phone MCKENNA HEBERT Unavailable PROBLEMS Type Condition ICD9-CM Code LTU98-AC Code Onset Dates Condition Status SNOMED Code Problem Diabetes type 2, controlled E11.9 Active 54637821 Problem Neuropathy G62.9 Active 784369298 Problem Renal failure N19 Active 98470520 Problem Cellulitis of right lower extremity L03.115 Active 388624688 Problem Angina pectoris I20.9 Active 514617595 Problem Seasonal allergic rhinitis due to other allergic trigger J30.89 Active 707451524 Problem Intra-dialytic hypotension I95.3 Active 552204446 Problem Amput below knee, unilat S88.119A Active 93207307 Problem Chronic congestive heart failure, unspecified heart failure type I50.9 Active 35814010 Problem Chronic congestive heart failure, unspecified congestive heart failure type I50.9 Active 46993282 ALLERGIES No Information ENCOUNTERS Encounter Location Date Diagnosis [facility] [id number] [place] [address] 62921- 7805 July, [facility] [address] [address] Jun, [facility] [id number] [place] [address] 61409- 8060 Jun, [facility] [id number] [place] [address] 49900- 2388 Jun, Diabetes type 2, controlled E11.9 [facility] [address] [address] 5[address] Jun, [facility] [id number] [place] [address] 62658- 8251 May, [facility] [id number] [place] [address] 93671- 2084 May, [facility] [address] 40[address]- 0337 May, [facility] [id number] [place] [address] 50703- 4769 May, Chronic congestive heart failure, unspecified congestive heart failure type I50.9 [facility] [address] [address]- 2661 May, Diabetes type 2, controlled E11.9 ; BMI 50.0-59.9, adult Z68.43 ; Chronic congestive heart failure, unspecified heart failure type I50.9 ; Angina pectoris I20.9 ; Seasonal allergic rhinitis due to other allergic trigger J30.89 and Renal failure N19 [facility] [id number] [place] [address] [id number] May, [facility] [id number] [place] [address] 91841- 9596 May, [facility] [id number] [place] [address] 27759- 3981 May, [facility] [id number] [place] [address] 75018- 7306 May, [place] [id number] [place] [address] 05863- 2595 May, [facility] [id number] [place] [address] 52724- 0390 Apr, BMI 50.0-59.9, adult Z68.43 [facility] [address] [address]- 2744 Apr, BMI 50.0-59.9, adult Z68.43 ; Post-procedural fever R50.82 and Bronchitis J40 [facility] [address] 49911- 6053 Apr, Chronic congestive heart failure, unspecified congestive heart failure type I50.9 [facility] [address] [id number] [address] 8001 Jan, [facility] [address] [facility] [id number], [place] [address]- 5869 Jan, Diabetes type 2, controlled E11.9 [facility] [address] [facility] [id number] [place] [address]- 6907 Jan, Neuropathy G62.9 [facility] [address] [id number] [place] [address]- 3277 Jan, [facility] [address] [facility] [id number] [place] [address] 06350- 1095 Jan, [facility] [address] [facility] [id number] [address]- 1083 Jan, [facility] [address] [facility] [id number] [address]- 1684 Jan, [facility] [address] [facility] [id number], [place] [address]- 4421 Jan, [facility] [id number] [address]- 1222 Dec, [facility] [address] [facility] [id number] [address]- 0093 Dec, [facility] [address] [facility] [id number] [address]- 6793 Dec, Diabetes type 2, controlled E11.9 [facility] [address] [facility] [id number], [place] [address]- 0455 Dec, [facility] [address] [facility] [id number], [place] [address]- 7032 Dec, [facility] [address] [facility] [id number] [address]- 9081 Dec, Chronic congestive heart failure, unspecified congestive heart failure type I50.9 [facility] [address] [facility] [id number] [place] [address]- 5208 Dec, [facility] [address] [facility] [id number] [address]- 9592 Dec, [facility] [address] [facility] [id number] [place] [address]- 4570 Nov, Chronic congestive heart failure, unspecified congestive heart failure type I50.9 [facility] [address] [facility] [id number] [place] [address]- 1150 Nov, Chronic congestive heart failure, unspecified congestive heart failure type I50.9 [facility] [address] [facility] [id number], [place] [address]- 5312 Nov, [facility] [address] [facility] [id number], [place] [address]- 6166 Oct, [facility] [address] [facility] [id number], [place] [address]- 2370 Oct, [facility] [address] [facility] [id number] [address]- 9736 Oct, Chronic congestive heart failure, unspecified congestive heart failure type I50.9 [facility] [address] [facility] [id number], [place] [address]- 6092 Oct, [facility] [address] [facility] [id number], [place] [address]- 2324 Oct, Pneumonia of both lungs due to infectious organism, unspecified part of lung J18.9 [facility] [address] [facility] [id number], [place] [address]- 5806 Oct, [facility] [address] [facility] [id number] [address]- 1502 Oct, Diabetes type 2, controlled E11.9 [facility] [address] [facility] [id number], [place] [address]- 6292 Oct, Diabetes type 2, controlled E11.9 [facility] [address] [facility] [id number] [place] [address] 2546 Sep, [facility] [address] [facility] [id number] [place] [address], [place] [address] 2546 Sep, Neuropathy G62.9 [facility] [id number] [place] [address] 2546 Aug, Intra-dialytic hypotension I95.3 [facility] [id number] [place] [address], [place] [address] 2546 July, [facility] [id number] [place] [address], [place] [address] 2546 July, [facility] [id number] [place] [address] 75862 2546 July, [facility] [id number] [place] [address] 24289 2546 July, Amput below knee, unilat S88.119A [facility] [id number] [place] [address] 2546 May, [facility] [id number] [place] [address], [place] [address] 2546 May, Neuropathy G62.9 [facility] [address] [address] 2546 May, [facility] [address] [address] 2546 May, [facility] [address] [place] [address] 2546 May, [facility] [id number] [place] [address], [place] [address] 2546 May, [facility] [address] [address] 2546 May, Neuropathy G62.9 [facility] [id number] [place] [address]- 5910 Apr, [facility] [address] [place] [address]- 3860 Apr, [facility] [address] [place] [address]- 9556 Apr, Diabetes type 2, controlled E11.9 and Renal failure N19 [facility] [id number] [place] [address], [place] [address] -[address]36 Apr, [facility] [id number] [place] [address]- 5622 Apr, [facility] [id number] [place] [address], [place] [address]- 3436 Mar, [facility] [id number] [place] [address], [place] [address]- 1801 Mar, [facility] [id number] [place] [address], [place] [address]- 2005 Mar, [facility] [address] [place] [address]- 7244 Mar, [facility] [address] [place] [address]- 3639 Mar, [facility] [address] [place] [address]- 3981 Jan, Localized edema R60.0 [facility] [address] [address]- 4042 Jan, [facility] [id number] [place] [address]- 7454 Jan, [facility] [address] [place] [address]- 6643 Jan, [facility] [address] [place] [address]- 9845 Jan, [facility] [id number] [place] [address] 86855- 8328 Jan, [facility] [id number] [place] [address] 09646- 6356 Jan, [facility] [id number] [place] [address] 63076- 8046 Dec, Diabetes type 2, controlled E11.9 and Chronic nonintractable headache, unspecified headache type R51 [facility] [id number] [place] [address] 32755- 8458 Dec, [facility] [id number] [place] [address] 33015- 4909 Dec, [facility] [id number] [place] [address] 38770- 7973 Nov, [facility] [id number] [place] [address] 10062- 0472 Nov, [facility] [id number] [place] [address] 82748- 2933 Oct, [facility] [id number] [place] [address] 62959- 8825 Oct, Migraine without status migrainosus, not intractable, unspecified migraine type G43.909 [facility] [id number] [place] [address] 77316- 1094 Oct, [facility] [id number] [place] [address] 37666- 5583 Sep, Amput below knee, unilat S88.119A and Neuropathy G62.9 [facility] [id number] [place] [address] 10850- 4725 Sep, [facility] [id number] [place] [address] 04679- 5837 Sep, [facility] [id number] [place] [address] 80986- 0154 Sep, [facility] [address] [facility] [id number] [place] [address]- 7109 30 Aug, 2015 [facility] [address] [facility] [id number] [place] [address]- 3934 Aug, [facility] [address] [facility] [id number] [place] [address]- 0735 17 Aug, 2015 Diabetes type 2, controlled E11.9 [facility] [address] [facility] [id number] [place] [address]- 5578 Aug, [facility] [address] [facility] [id number] [place] [address]- 1692 Jun, Diabetes type 2, controlled E11.9 and Neuropathy G62.9 [facility] [address] [facility] [id number] [place] [address]- 3449 Jun, [facility] [address] [place] [address]- 3882 Jun, [facility] [address] [facility] [id number] [place] [address]- 7319 Jun, [facility] [address] [place] [address]- 9443 Jun, [facility] [address] [place] [address]- 4963 May, [facility] [address] [facility] [id number] [place] [address]- 5904 May, Diabetes type 2, controlled E11.9 [facility] [address] [facility] [id number] [address]- 1140 May, [facility] [id number] [place] [address]- 0146 May, [facility] [address] [facility] [id number] [place] [address]- 6102 May, [facility] [address] [address]- 0371 May, [facility] [address] [address]- 3288 May, [facility] [address] [address]- 9596 May, [facility] [address] [address]- 2666 May, [facility] [id number] [place] [address] 24351- 2653 May, COPD (chronic obstructive pulmonary disease) J44.9 [facility] [address] [place] [address] 09666- 7467 May, [facility] [address] [address]- 1177 May, [facility] [address] [place] [address] 83312- 1023 May, [facility] [address] [address]- 4197 May, [facility] [address] [address]- 6306 May, [facility] [address] [address]- 5450 May, Renal failure N19 and Pneumonia, organism unspecified, unspecified laterality, unspecified part of lung J18.9 [facility] [address] [address]- 1528 Apr, [facility] [address] [address]- 2621 Apr, [facility] [address] [address]- 8453 Apr, [facility] [address] [address]- 0567 Apr, Diabetes mellitus 250.00 [facility] [address] [id number] [place] [address]- 3300 14 Apr, 2015 [facility] [address] [id number] [place] [address]- 2529 14 Apr, 2015 [facility] [address] [id number] [place] [address]- 6591 13 Apr, 2015 [facility] [address] [id number] [place] [address]- 0226 07 Apr, 2015 [facility] [address] [id number] [place] [address]- 8869 31 Mar, 2015 [facility] [address] [id number] [place] [address]- 7123 28 Mar, 2015 [facility] [address] [place] [address]- 2645 Mar, [facility] [address] [id number] [place] [address]- 3419 16 Mar, 2015 Renal failure N19 [facility] [address] [id number] [place] [address]- 0787 14 Mar, 2015 [facility] [id number] [place] [address]- 3516 Mar, [facility] [address] [id number] [place] [address]- 7338 Mar, [facility] [address] [id number] [place] [address]- 6787 24 Jan, 2015 [facility] [place] [facility] [address] [id number] [place] [address]- 8423 18 Jan, 2015 [facility] [address] [facility] [id number] [place] [address]- 4135 17 Jan, 2015 [facility] [place] [facility] [id number] [place] [address]- 2416 13 Jan, 2015 [facility] [address] [id number] [place] [address]- 3509 Dec, [facility] [address] [id number] [place] [address]- 6017 Dec, [facility] [address] [facility] [id number] [place] [address]- 9816 Dec, [facility] [address] [facility] [id number] [place] [address]- 5337 Nov, [facility] [address] [id number] [place] [address]- 3368 Nov, [facility] [address] [id number] [place] [address]- 0886 Nov, [facility] [id number] [place] [address]- 8430 Oct, [facility] [address] [place] [address]- 4925 Oct, [facility] [id number] [place] [address]- 6475 Oct, Renal failure 586 and Obesity 278.00 [facility] [address] [place] [address]- 1479 Oct, [facility] [id number] [place] [address]- 1865 Oct, [facility] [address] [address]- 4146 Oct, [facility] [id number] [address]- 5975 Sep, [facility] [address] [place] [address]- 7961 Sep, [facility] [id number] [place] [address]- 7061 Sep, Diabetes mellitus 250.00 and Congestive heart failure, unspecified 428.0 [facility] [address] [id number] [place] [address]- 2202 Aug, [facility] [address] [id number] [place] [address]- 5200 Aug, [facility] [address] [id number] [place] [address]- 5938 Aug, [facility] [address] [id number] [place] [address]- 9537 July, [facility] [address] [id number] [place] [address]- 7585 July, [facility] [address] [id number] [place] [address]- 5113 July, Heart murmur, systolic 785.2 [facility] [address] [id number] [place] [address]- 4162 July, [facility] [address] [id number] [place] [address]- 0587 July, [facility] [address] [id number] [place] [address]- 5288 Jun, [facility] [address] [id number] [place] [address]- 1587 Jun, [facility] [address] [id number] [place] [address]- 7207 May, [facility] [address] [id number], [place] [address]- 0380 May, [facility] [address] [id number] [place] [address]- 8217 May, [facility] [address] [id number] [place] [address]- 6881 May, [facility] [address] [id number] [place] 8849 May, [facility] [address] [id number], [place] [address]- 2469 16 May, 2014 [facility] [place] [facility] [address] [facility] [id number] [place] [address] 10 May, 2014 [facility] [place] [facility] [address] [facility] [id number] [place] [address] 10 May, 2014 [facility] [place] [facility] [address] [facility] [id number] [place] [address] May, 2014 [facility] [place] [facility] [address] [facility] [id number] [place] [address] May, 2014 [facility] [place] [facility] [address] [facility] [id number] [place] [address] May, 2014 [facility] [place] [facility] [address] [facility] [id number] [place] [address] May, 2014 [facility] [place] [facility] [address] [facility] [id number] [place] [address] May, 2014 [facility] [place] [facility] [address] [facility] [id number] [place] [address] 23 May, 2014 [facility] [place] [facility] [address] [facility] [id number] [place] [address] 18 May, 2014 [facility] [place] [facility] [address] [facility] [id number] [place] [address] 18 May, 2014 [facility] [place] [facility] [address] [facility] [id number] [place] [address] 18 May, 2014 [facility] [place] [facility] [address] [facility] [id number], [place] [address] 18 May, 2014 [facility] [place] [facility] [address] [facility] [id number] [place] [address] 18 May, 2014 [facility] [place] [facility] [address] [facility] [id number] [place] [address] 18 May, 2014 [facility] [place] [facility] [address] [facility] [id number] [place] [address] May, 2014 [facility] [place] [facility] [address] [id number] [place] [address] May, 2014 [facility] [place] [facility] [address] [id number] [place] [address] May, [facility] [place] [facility] [address] [id number] [place] [address] May, [facility] [place] [facility] [address] [id number] [place] [address] May, [facility] [place] [facility] [address] [id number] [place] [address] May, [facility] [place] [facility] [address] [id number] [place] [address] Apr, [facility] [place] [facility] [address] [id number] [place] [address] Apr, [facility] [place] [facility] [address] [id number] [place] [address] Apr, [facility] [place] [facility] [address] [id number] [place] [address] Apr, [facility] [place] [facility] [address] [id number] [place] [address] Apr, [facility] [place] [facility] [address] [id number] [place] [address] Apr, [facility] [place] [facility] [address] [id number] [place] [address] Apr, [facility] [place] [facility] [address] [id number] [place] [address] Apr, [facility] [place] [facility] [address] [id number] [place] [address]266 Mar, [facility] [place] [facility] [address] [id number] [place] [address] 6771 Mar, [facility] [place] [facility] [address] [id number] [place] [address] 1977 Mar, [facility] [address] [id number] [place] [address] 0216 Mar, [facility] [place] [facility] [address] [id number] [place] [address]- 7816 Mar, [facility] [address] [id number] [place] [address]- 7394 Mar, [facility] [place] [facility] [address] [id number] [place] [address] 4873 Mar, [facility] [place] [facility] [address] [id number] [place] [address]- 9245 Mar, [facility] [place] [facility] [address] [id number] [place] [address]- 2195 Mar, [facility] [address] [id number] [place] [address]- 5681 Mar, [facility] [place] [facility] [address] [id number] [place] [address]- 3586 Mar, [facility] [place] [facility] [address] [id number] [place] [address] 1653 Mar, [facility] [address] [id number] [place] [address]- 7021 11 Mar, 2014 [facility] [place] [facility] [address] [id number] [place] [address]- 9786 11 Mar, 2014 [facility] [place] [facility] [address] [id number] [place] [address]- 3406 10 Mar, 2014 [facility] [place] [facility] [address] [id number] [place] [address]- 8666 Mar, [facility] [place] [facility] [address] [id number] [place] [address]- 6286 10 Mar, 2014 [facility] [place] [facility] [address] [id number] [place] [address]- 6882 Mar, [facility] [place] [facility] [address] [id number] [place] [address]- 1417 Mar, [facility] [place] [facility] [address] [id number] [place] [address]- 3614 Mar, [facility] [place] [facility] [address] [id number] [place] [address]- 3330 Mar, [facility] [place] [facility] [address] [id number] [place] [address]- [address]236 Mar, [facility] [place] [facility] [address] [id number] [place] [address]- 9946 Jan, [facility] [place] [facility] [address] [id number] [place] [address]- 1842 Jan, [facility] [place] [facility] [address] [id number] [place] [address]- 2761 Jan, [facility] [place] [facility] [address] [id number] [place] [address]- 6678 Jan, [facility] [place] [facility] [address] [id number] [place] [address]- 7238 Jan, [facility] [place] [facility] [address] [id number] [place] [address]- 7006 Jan, [facility] [place] [facility] [address] [id number] [place] [address]- 3169 Jan, [facility] [place] [facility] [address] [id number] [address]- 3499 Jan, [facility] [place] [facility] [address] [id number] [place] [address]- 3237 Jan, [facility] [place] [facility] [address] [id number] [place] [address]- 2634 Jan, [facility] [place] [facility] [address] [id number] [place] [address]- 9983 Jan, [facility] [place] [facility] [address] [id number], [place] [address]- 5115 Jan, [facility] [place] [facility] [address] [id number] [place] [address]- 6160 Jan, [facility] [place] [facility] [address] [id number] [place] [address]- 5911 Jan, [facility] [place] [facility] [address] [id number] [place] [address]- 8708 Jan, [facility] [place] [facility] [address] [id number] [place] [address]- 9123 Jan, [facility] [place] [facility] [address] [id number] [place] [address]- 9684 Jan, [facility] [place] [facility] [address] [id number] [place] [address]- 8222 Jan, [facility] [place] [facility] [address] [id number] [place] [address]- 9423 Jan, [facility] [place] [facility] [address] [id number] [place] [address]- 4437 Jan, [facility] [place] [facility] [address] [id number] [place] [address]- 3284 Dec, [facility] [place] [facility] [address] [id number] [place] [address]- 7084 Dec, [facility] [place] [facility] [address] [id number], [place] [address]- 8678 Dec, [facility] [place] [facility] [address] [id number], [place] [address]- 2947 Dec, [facility] [place] [facility] [address] [id number] [place] [address]- 7371 Dec, [facility] [place] [facility] [address] [id number], [place] [address]- 4896 Dec, [facility] [place] [facility] [address] [id number] [place] [address]- 7650 Dec, [facility] [place] [facility] [address] [id number] [place] [address]- 1923 10 Dec, 2013 [facility] [place] [facility] [address] [id number] [place] [address]- 0879 Dec, [facility] [place] [facility] [address] [id number] [place] [address]- 7971 Dec, [facility] [place] [facility] [address] [id number] [place] [address]- 6371 Dec, [facility] [place] [facility] [address] [id number] [place] [address]- 4185 Dec, [facility] [place] [facility] [address] [id number] [place] [address]- 7948 Dec, [facility] [place] [facility] [address] [id number] [place] [address]- 7646 Dec, [facility] [place] [facility] [address] [id number] [place] [address]- 0299 Dec, [facility] [place] [facility] [address] [id number] [place] [address]- 1256 22 Nov, 2013 [facility] [place] [facility] [address] [id number] [place] [address]- 7351 22 Nov, 2013 [facility] [place] [facility] [address] [id number] [place] [address]- 5139 19 Nov, 2013 [facility] [place] [facility] [address] [id number] [place] [address]- 6248 19 Nov, 2013 [facility] [place] [facility] [address] [id number] [place] [address]- 2543 13 Nov, 2013 [facility] [place] [facility] [address] [id number] [place] [address]- 2546 13 Nov, 2013 [facility] [place] [facility] [address] [id number] [place] [address]- 2541 10 Nov, 2013 [facility] [place] [facility] [address] [id number] [place] [address]- 5905 Nov, [facility] [place] [facility] [address] [id number] [place] [address]- 5537 Nov, 2013 [facility] [place] [facility] [address] [id number] [place] [address]- 3097 Nov, [facility] [place] [facility] [address] [id number] [place] [address]- 8434 Nov, [facility] [place] [facility] [address] [id number] [place] [address]- 7568 Nov, [facility] [place] [facility] [address] [id number] [place] [address]- 1406 Nov, [facility] [place] [facility] [address] [id number] [place] [address]- 9348 Oct, [facility] [place] [facility] [address] [id number] [place] [address]- 4252 Oct, [facility] [place] [facility] [address] [id number] [place] [address]- 2569 Oct, [facility] [place] [facility] [address] [id number] [place] [address]- 9207 Oct, [facility] [place] [facility] [address] [id number] [place] [address]- 1176 Oct, [facility] [place] [facility] [address] [id number] [place] [address]- 3475 Sep, [facility] [place] [facility] [address] [id number], [place] [address]- 8922 Sep, [facility] [place] [facility] [address] [id number] [place] [address]- 3992 Sep, [facility] [place] [facility] [address] [id number] [place] [address]- 1757 Sep, [facility] [place] [facility] [address] [id number] [place] [address]- 0323 Aug, [facility] [place] [facility] [address] [id number] [place] [address]- 1130 30 Aug, 2013 [facility] [place] [facility] [address] [id number] [place] [address]- 9049 Aug, [facility] [place] [facility] [address] [id number] [place] [address]- 1080 Aug, [facility] [place] [facility] [address] [id number] [place] [address]- 1696 Aug, [facility] [place] [facility] [address] [id number] [place] [address]- 6090 Aug, [facility] [place] [facility] [address] [id number] [place] [address]- 3790 Aug, [facility] [place] [facility] [address] [id number] [place] [address]- 6529 Aug, [facility] [place] [facility] [address] [id number] [place] [address]- 4124 Aug, [facility] [place] [facility] [address] [id number] [place] [address]- 8794 Aug, [facility] [place] [facility] [address] [id number] [place] [address]- 3739 Aug, [facility] [place] [facility] [address] [id number] [place] [address]- 7574 Aug, [facility] [place] [facility] [address] [id number] [place] [address]- 9407 Aug, [facility] [place] [facility] [address] [id number] [place] [address]- 6753 Aug, [facility] [place] [facility] [address] [id number] [place] [address]- 6076 Aug, [facility] [place] [facility] [address] [id number] [place] [address]- 9016 Aug, [facility] [place] [facility] [address] [id number] [place] [address]- 5701 12 Aug, 2013 [facility] [place] [facility] [address] [id number] [place] [address]- 1157 Aug, [facility] [place] [facility] [address] [id number] [place] [address]- 7692 Aug, [facility] [place] [facility] [address] [id number] [place] [address]- 5857 Aug, [facility] [place] [facility] [address] [id number] [place] [address]- 6143 Aug, [facility] [place] [facility] [address] [id number] [place] [address]- 6194 Aug, [facility] [place] [facility] [address] [id number] [place] [address]- 1616 Aug, [facility] [place] [facility] [address] [id number] [place] [address]- 5952 Aug, [facility] [place] [facility] [address] [id number] [place] [address]- 3505 July, [facility] [place] [facility] [address] [id number] [place] [address]- 9936 July, [facility] [place] [facility] [address] [id number] [place] [address]- 1330 July, [facility] [place] [facility] [address] [id number] [place] [address]- 1736 July, [facility] [place] [facility] [address] [id number] [place] [address]- 7362 July, [facility] [place] [facility] [address] [id number] [place] [address]- 7078 July, [facility] [place] [facility] [address] [id number] [place] [address]- 7607 Jun, [facility] [place] [facility] [address] [id number] [place] [address]- 1493 Jun, [facility] [place] [facility] [address] [id number] [place] [address]- 2949 Jun, [facility] [place] [facility] [address] [id number] [place] [address]- 6667 Jun, [facility] [place] [facility] [address] [id number] [place] [address]- 0970 Jun, [facility] [place] [facility] [address] [id number] [place] [address]- 7024 Jun, [facility] [place] [facility] [address] [id number] [place] [address]- 6925 Jun, [facility] [place] [facility] [address] [id number] [place] [address]- 6908 Jun, [facility] [place] [facility] [address] [id number] [place] [address]- 6415 Jun, [facility] [place] [facility] [address] [id number] [place] [address]- 8041 Jun, [facility] [place] [facility] [address] [id number] [place] [address]- 0641 Jun, [facility] [place] [facility] [address] [id number] [place] [address]- 4678 Jun, [facility] [place] [facility] [address] [id number] [place] [address]- 8816 Jun, [facility] [place] [facility] [address] [id number] [place] [address]- 7824 Jun, [facility] [place] [facility] [address] [id number] [place] [address]- 0133 Jun, [facility] [place] [facility] [address] [id number] [place] [address]- 5416 May, [facility] [place] [facility] [address] [id number] [place] [address]- 4708 May, [facility] [place] [facility] [address] [id number] [place] [address]- 9133 May, [facility] [place] [facility] [address] [id number] [place] [address]- 9778 May, [facility] [place] [facility] [address] [id number] [place] [address]- 2681 May, [facility] [place] [facility] [address] [id number] [place]75 May, [facility] [place] [facility] [address] [id number] [place] [address]- 4158 May, [facility] [place] [facility] [address] [id number] [place] [address]- 1855 May, [facility] [place] [facility] [address] [id number] [place] [address]- 3165 May, [facility] [place] [facility] [address] [id number] [place] [address]- 1517 May, [facility] [place] [facility] [address] [id number] [place] [address]- 9790 May, [facility] [place] [facility] [address] [id number] [place] [address]- 2864 May, [facility] [place] [facility] [address] [id number] [place] [address]- 4880 May, [facility] [place] [facility] [address] [id number] [place] [address]- 7866 May, [facility] [place] [facility] [address] [id number] [place] [address]- 2157 May, [facility] [place] [facility] [address] [id number] [place] [address]- 7109 May, [facility] [place] [facility] [address] [id number] [place] [address]- 9039 May, [facility] [place] [facility] [address] [id number] [place] [address]- 6909 Apr, [facility] [place] [facility] [address] [id number] [place] [address]- 6142 Apr, [facility] [place] [facility] [address] [id number] [place] [address]- 1785 Apr, [facility] [place] [facility] [address] [id number] [place] [address]- 0175 Apr, [facility] [place] [facility] [address] [id number] [place] [address]- 5497 Apr, [facility] [place] [facility] [address] [id number] [place] [address]- 8351 Apr, [facility] [place] [facility] [address] [id number] [place] [address]- 9127 Apr, [facility] [place] [facility] [address] [id number] [place] [address]- 2993 Apr, [facility] [place] [facility] [address] [id number] [place] [address]- 4089 Apr, [facility] [place] [facility] [address] [id number] [place] [address]- 7580 Apr, [facility] [place] [facility] [address] [id number] [place] [address]- 8085 Apr, [facility] [place] [facility] [address] [id number] [place] [address]- 6848 Apr, [facility] [place] [facility] [address] [id number], [place] [address]- 6127 Apr, [facility] [place] [facility] [address] [id number], [place] [address]- 0476 Apr, [facility] [place] [facility] [address] [id number] [place] [address]- 6973 Apr, [facility] [place] [facility] [address] [id number] [place] [address]- 4438 Apr, [facility] [place] [facility] [address] [id number] [place] [address]- 9010 Mar, [facility] [place] [facility] [address] [id number] [place] [address]- 0229 30 Mar, 2012 [facility] [address] [id number] [place] [address]- 2306 30 Mar, 2012 [facility] [address] [id number] [place] 0156 30 Mar, 2012 [facility] [address] [id number] [place] [address]- 7398 18 Mar, 2012 [facility] [address] [id number] [place] [address]- 6735 18 Mar, 2012 [facility] [address] [id number] [place] 5993 18 Mar, 2013 [facility] [address] [id number] [place] [address]- 4968 18 Mar, 2013 [facility] [address] [id number] [place] [address]- 6011 17 Mar, 2013 [facility] [address] [id number] [place] [address]- 6060 17 Mar, 2013 [facility] [address] [id number] [place] [address]- 5377 05 Mar, 2013 [facility] [address] [id number] [place] [address]- 0380 05 Mar, 2013 [facility] [address] [id number] [place] [address]- 4886 04 Mar, 2013 [facility] [place] [facility] [address] [id number] [place] [address]- 2987 04 Mar, 2013 [facility] [place] [facility] [address] [id number] [place] [address]- 5916 04 Mar, 2013 [facility] [place] [facility] [address] [id number] [place] [address]- 2236 04 Mar, 2013 [facility] [place] [facility] [address] [id number] [place] [address]- 8374 02 Mar, 2013 [facility] [place] [facility] [address] [id number] [place] [address]- 3455 Mar, [facility] [place] [facility] [address] [id number] [place] [address]- 3905 Jan, [facility] [place] [facility] [address] [id number] [place] [address]- 7088 Jan, [facility] [place] [facility] [address] [id number] [place] [address]- 4903 Jan, [facility] [place] [facility] [address] [id number] [place] [address]- 5883 Jan, [facility] [place] [facility] [address] [id number] [place] [address]- 3866 Nov, [facility] [place] [facility] [address] [id number] [place] [address]- 9629 Nov, [facility] [place] [facility] [address] [id number] [place] [address]- 3655 Nov, [facility] [place] [facility] [address] [id number] [place] [address]- 6027 Nov, [facility] [place] [facility] [address] [id number] [place] [address]- 6562 Oct, [facility] [place] [facility] [address] [id number] [place] [address]- 7630 Oct, [facility] [place] [facility] [address] [id number] [place] [address]- 7939 Oct, [facility] [place] [facility] [address] [id number] [place] [address]- 8594 Oct, [facility] [place] [facility] [address] [id number] [place] [address]- 9851 Sep, [facility] [place] [facility] [address] [id number] [place] [address]- 8918 Sep, [facility] [place] [facility] [address] [id number] [place] [address] Sep, [facility] [address] [id number] [place] [address] Sep, [facility] [place] [facility] [address] [id number] [place] [address] Sep, [facility] [place] [facility] [address] [id number] [place] [address] Sep, [facility] [place] [facility] [address] [id number] [place] [address] Sep, [facility] [place] [facility] [address] [id number] [place] [address] Sep, [facility] [place] [facility] [address] [id number] [place] [address] Sep, [facility] [place] [facility] [address] [id number] [place] [address] Aug, [facility] [place] [facility] [address] [id number] [place] [address] Aug, [facility] [place] [facility] [address] [id number] [place] [address] Aug, [facility] [place] [facility] [address] [id number] [place] [address] Aug, [facility] [place] [facility] [address] [id number] [place] [address] July, [facility] [place] [facility] [address] [id number] [place] [address] July, [facility] [place] [facility] [address] [id number] [place] [address] July, [facility] [place] [facility] [address] [id number] [place] [address] July, [facility] [place] [facility] [address] [id number] [place] [address] July, [facility] [place] [facility] [address] [id number] [address] July, [facility] [address] [id number] [address] July, [facility] [id number] [address] Jun, [facility] [id number] [address] May, [facility] [id number], [place] [address] May, [facility] [id number], [place] [address] May, [facility] [id number], [place] [address] May, [facility] [id number], [place] [address] May, [facility] [id number], [place] [address] May, [facility] [address] [address] May, [facility] [id number], [place] [address] May, IMMUNIZATIONS No Known Immunizations SOCIAL HISTORY Never Assessed REASON FOR VISIT Lab (walk-in)--[facility] PLAN OF [facility] VITAL SIGNS MEDICATIONS Unknown Medications RESULTS Name Result Date Reference Range TSH 2016-12-07 TSH 3.420 0.450-4.500 CRP, CARDIAC 2016-12-07 C-Reactive Protein, Cardiac 12.74 0.00-3.00 BNP 2016-12-07 B-Type Natriuretic Peptide 92.7 0.0-100.0 LIPID PANEL 2016-12-07 Cholesterol, Total 108 100-199 Triglycerides 176 0-149 HDL Cholesterol 30 >39 VLDL Cholesterol Aj 35 5-40 LDL Cholesterol Calc 43 0-99 CMP 2016-12-07 Glucose, Serum 359 65-99 BUN 31 6-24 Creatinine, Serum 6.23 0.57-1.00 eGFR If NonAfricn Am 7 >59 eGFR If Africn Am 8 >59 BUN/Creatinine Ratio 5 9-23 Sodium, Serum 137 134-144 Potassium, Serum 4.9 3.5-5.2 Chloride, Serum 89 96-106 Carbon Dioxide, Total 28 18-29 Calcium, Serum 8.6 8.7-10.2 Protein, Total, Serum 6.5 6.0-8.5 Albumin, Serum 3.8 3.5-5.5 Globulin, Total 2.7 1.5-4.5 A/G Ratio 1.4 1.2-2.2 Bilirubin, Total 0.3 0.0-1.2 Alkaline Phosphatase, S 185 39-117 AST (SGOT) 17 0-40 ALT (SGPT) 20 0-32 CBC 2016-12-07 WBC 7.4 3.4-10.8 RBC 3.39 3.77-5.28 Hemoglobin 11.1 11.1-15.9 Hematocrit 34.5 34.0-46.6 MCV 102 79-97 MCH 32.7 26.6-33.0 MCHC 32.2 31.5-35.7 RDW 15.0 12.3-15.4 Platelets 115 150-379 Neutrophils 65 Lymphs 26 Monocytes 5 Eos 4 Basos 0 Neutrophils (Absolute) 4.8 1.4-7.0 Lymphs (Absolute) 1.9 0.7-3.1 Monocytes(Absolute) 0.4 0.1-0.9 Eos (Absolute) 0.3 0.0-0.4 Baso (Absolute) 0.0 0.0-0.2 Immature Granulocytes 0 Immature Grans (Abs) 0.0 0.0-0.1 Hematology Comments: Note: PROCEDURES Procedure Date Ordered Result Body Site LAB NOT BILLED BY [employer] Dec 07, 2016 INSTRUCTIONS MEDICATIONS ADMINISTERED No Known Medications [...]
--- OUTSIDE RECORDS SUMMARY | 2017-12-18 20:21 | XMS REPORT ---
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
--- OUTSIDE RECORDS SUMMARY | 2017-12-18 20:21 | XMS REPORT ---
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
--- OUTSIDE RECORDS SUMMARY | 2017-12-18 20:21 | XMS REPORT ---
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
--- OUTSIDE RECORDS SUMMARY | 2017-12-18 20:21 | XMS REPORT ---
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 Active 325919459 Problem Renal failure N19 Active 51090144 Problem Diabetes type 2, controlled E11.9 Active 20902631 Problem Amput below knee, unilat S88.119A Active 73364376 Problem Neuropathy G62.9 Active 957545467 ALLERGIES Unknown Allergies SOCIAL HISTORY No smoking Hx information available PLAN OF CARE VITAL SIGNS MEDICATIONS Medication Instructions Dosage Frequency Start Date End Date Duration Status Furosemide 40 MG TAKE ONE (1) TABLET BY MOUTH DAILY 30 Active Crestor 20 MG TAKE ONE TABLET BY MOUTH EVERY DAY 30 Active RESULTS No Results PROCEDURES No Known procedures IMMUNIZATIONS No Known Immunizations
--- OUTSIDE RECORDS SUMMARY | 2017-12-18 20:22 | XMS REPORT ---
Author Author MCKENNA HEBERT Organization [facility] Address [address] [place] [address] Care Team Providers Care Slide Fastener Repairer Name Role Phone MCKENNA HEBERT Unavailable PROBLEMS Type Condition ICD9-CM Code XSW95-VR Code Onset Dates Condition Status SNOMED Code Problem Diabetes type 2, controlled E11.9 Active 52131064 Problem Neuropathy G62.9 Active 713084852 Problem Renal failure N19 Active 09537432 Problem Cellulitis of right lower extremity L03.115 Active 078151290 Problem Angina pectoris I20.9 Active 170537259 Problem Seasonal allergic rhinitis due to other allergic trigger J30.89 Active 133857710 Problem Intra-dialytic hypotension I95.3 Active 066901757 Problem Amput below knee, unilat S88.119A Active 64031572 Problem Chronic congestive heart failure, unspecified heart failure type I50.9 Active 39800746 Problem Chronic congestive heart failure, unspecified congestive heart failure type I50.9 Active 13553844 ALLERGIES No Information ENCOUNTERS Encounter Location Date Diagnosis [facility] [id number] [place] [address] 08977- 3870 July, [facility] [address] [address] 9559 Jun, [facility] [id number] [place] [address] 54298- 8228 Jun, [facility] [id number] [place] [address] 51005- 7062 Jun, Diabetes type 2, controlled E11.9 [facility] [address] [address] 9417 Jun, [facility] [id number] [place] [address] 41343- 1196 May, [facility] [id number] [place] [address] 86468- 2322 May, [facility] [address] 36039- 8008 May, [facility] [id number] [place] [address] 58707- 0480 May, Chronic congestive heart failure, unspecified congestive heart failure type I50.9 [facility] [address] 18214- 8529 May, Diabetes type 2, controlled E11.9 ; BMI 50.0-59.9, adult Z68.43 ; Chronic congestive heart failure, unspecified heart failure type I50.9 ; Angina pectoris I20.9 ; Seasonal allergic rhinitis due to other allergic trigger J30.89 and Renal failure N19 [facility] [id number] [place] [address] [id number] May, [facility] [id number] [place] [address] 61505- 8286 May, [facility] [id number] [place] [address] 43303- 5775 May, [facility] [id number] [place] [address] 12212- 5067 May, [facility] [id number] [place] [address] 09081- 1576 May, [facility] [id number] [place] [address] 08730- 7668 Apr, BMI 50.0-59.9, adult Z68.43 [facility] [address] 9[address]27- 9036 Apr, BMI 50.0-59.9, adult Z68.43 ; Post-procedural fever R50.82 and Bronchitis J40 [facility] [address] 75323- 3474 Apr, Chronic congestive heart failure, unspecified congestive heart failure type I50.9 [facility] [address] [id number] [address]- 9287 Jan, [facility] [address] [facility] [id number] [address]- 8003 Jan, Diabetes type 2, controlled E11.9 [facility] [address] [facility] [id number] [place] [address]- 5468 Jan, Neuropathy G62.9 [facility] [address] [id number] [place] [address]- 0459 Jan, [facility] [address] [facility] [id number] [place] [address] 74422- 8486 Jan, [facility] [address] [facility] [id number] [address]- 4575 Jan, [facility] [address] [facility] [id number] [address]- 3746 Jan, [facility] [address] [facility] [id number] [address]- 0060 Jan, [facility] [address] [id number] [address]- 5524 Dec, [facility] [address] [facility] [id number] [address]- 1641 Dec, [facility] [address] [facility] [id number] [address]- 8390 Dec, Diabetes type 2, controlled E11.9 [facility] [address] [facility] [id number] [address]- 9912 Dec, [facility] [address] [facility] [id number] [address]- 8806 Dec, [facility] [address] [facility] [id number] [address]- 8777 Dec, Chronic congestive heart failure, unspecified congestive heart failure type I50.9 [facility] [address] [facility] [id number] [place] [address]- 3116 Dec, [facility] [address] [facility] [id number] [address]- 9305 Dec, [facility] [address] [facility] [id number] [place] [address]- 7871 Nov, Chronic congestive heart failure, unspecified congestive heart failure type I50.9 [facility] [address] [facility] [id number] [place] [address]- 1038 Nov, Chronic congestive heart failure, unspecified congestive heart failure type I50.9 [facility] [address] [facility] [id number] [address]- 4547 Nov, [facility] [address] [facility] [id number] [address]- 8654 Oct, [facility] [address] [facility] [id number] [address]- 1304 Oct, [facility] [address] [facility] [id number] [address]- 5094 Oct, Chronic congestive heart failure, unspecified congestive heart failure type I50.9 [facility] [address] [facility] [id number] [address]- 1703 Oct, [facility] [address] [facility] [id number] [address]- 0849 Oct, Pneumonia of both lungs due to infectious organism, unspecified part of lung J18.9 [facility] [address] [facility] [id number] [address]- 7255 Oct, [facility] [address] [facility] [id number] [address]- 6260 Oct, Diabetes type 2, controlled E11.9 [facility] [address] [facility] [id number] [address]- 2131 Oct, Diabetes type 2, controlled E11.9 [facility] [address] [facility] [id number] [place] [address] 2546 Sep, [facility] [place] [address] [facility] [id number] [place] [address], [place] [address] 2546 Sep, Neuropathy G62.9 [facility] [id number] [address] 2546 Aug, Intra-dialytic hypotension I95.3 [facility] [id number] [place] [address], [place] [address] 2546 July, [facility] [id number] [place] [address], [place] [address] 2546 July, [facility] [id number] [place] [address] 60280 2546 July, [facility] [id number] [place] [address] 18691 2546 July, Amput below knee, unilat S88.119A [facility] [address] [id number] [address] 2546 May, [facility] [id number] [place] [address], [place] [address] 2546 May, Neuropathy G62.9 [facility] [address] [address] 2546 May, [facility] [id number] [address] 2546 May, [facility] [id number] [address] 2546 May, [facility] [id number] [place] [address], [place] [address] 2546 May, [facility] [address] [address] 2546 May, Neuropathy G62.9 [facility] [address] [id number] [address]- 7250 Apr, [facility] [id number] [address]- 5636 Apr, [facility] [id number] [address]- 7862 Apr, Diabetes type 2, controlled E11.9 and Renal failure N19 [facility] [id number] [place] [address], [place] [address] -1267 Apr, [facility] [address] [id number] [address]- 8498 Apr, [facility] [id number] [place] [address], [place] [address]- 6259 Mar, [facility] [id number] [place] [address], [place] [address]- 7663 Mar, [facility] [id number] [place] [address], [place] [address]- 6418 Mar, [facility] [id number] [address]- 6875 Mar, [facility] [id number] [address]- 8080 Mar, [facility] [id number] [address]- 0599 Jan, Localized edema R60.0 [facility] [id number] [address]- 1540 Jan, [facility] [id number] [address]- 3710 Jan, [facility] [id number] [address]- 9829 Jan, [facility] [id number] [address]- 6911 Jan, [facility] [id number] [place] [address] 18507- 6416 Jan, [facility] [id number] [place] [address] 55342- 5986 Jan, [facility] [id number] [place] [address] 01612- 2288 Dec, Diabetes type 2, controlled E11.9 and Chronic nonintractable headache, unspecified headache type R51 [facility] [id number] [place] [address] 84422- 8064 Dec, [facility] [id number] [place] [address] 54519- 1386 Dec, [facility] [id number] [place] [address] 76204- 1131 Nov, [facility] [id number] [place] [address] 56133- 5414 Nov, [facility] [id number] [place] [address] 00053- 6850 Oct, [facility] [id number] [place] [address] 00076- 1554 Oct, Migraine without status migrainosus, not intractable, unspecified migraine type G43.909 [facility] [id number] [place] [address] 92923- 7895 Oct, [facility] [id number] [place] [address] 13492- 1471 Sep, Amput below knee, unilat S88.119A and Neuropathy G62.9 [facility] [id number] [place] [address] 60755- 8611 Sep, [facility] [id number] [place] [address] 43444- 2096 Sep, [facility] [id number] [place] [address] 38170- 0917 Sep, [facility] [address] [facility] [id number] [place] [address]- 5974 30 Aug, 2015 [facility] [address] [facility] [id number] [place] [address]- 7870 Aug, [facility] [address] [facility] [id number] [place] [address]- 2256 17 Aug, 2015 Diabetes type 2, controlled E11.9 [facility] [address] [facility] [id number] [place] [address]- 7437 Aug, [facility] [address] [facility] [id number] [place] [address]- 8552 Jun, Diabetes type 2, controlled E11.9 and Neuropathy G62.9 [facility] [address] [facility] [id number] [place] [address]- 0890 Jun, [facility] [id number] [address]- 0657 Jun, [facility] [address] [facility] [id number] [place] [address]- 6688 Jun, [facility] [id number] [address]- 2890 Jun, [facility] [id number] [address]- 5426 May, [facility] [address] [facility] [id number] [place] [address]- 8356 May, Diabetes type 2, controlled E11.9 [facility] [address] [facility] [id number] [address]- 4627 May, [facility] [id number] [address]- 0417 May, [facility] [address] [facility] [id number] [place] [address]- 3628 May, [facility] [address] [address]- 7918 May, [facility] [address] [address]- 9867 May, [facility] [address] [address]- 2416 May, [facility] [address] [address]- 1036 May, [facility] [id number] [place] [address] 59562- 6613 May, COPD (chronic obstructive pulmonary disease) J44.9 [facility] [id number] [place] [address] 32082- 8365 May, [facility] [address] [address]- 4190 May, [facility] [id number] [place] [address] 47930- 9648 May, [facility] [address] [address]- 1078 May, [facility] [address] [address]- 9658 May, [facility] [address] [address]- 6570 May, Renal failure N19 and Pneumonia, organism unspecified, unspecified laterality, unspecified part of lung J18.9 [facility] [address] [address]- 5918 Apr, [facility] [address] [address]- 8174 Apr, [facility] [address] [address]- 8896 Apr, [facility] [address] [address]- 8060 Apr, Diabetes mellitus 250.00 [facility] [address] [id number] [place] [address]- 5338 14 Apr, 2015 [facility] [address] [id number] [place] [address]- 9108 14 Apr, 2015 [facility] [address] [id number] [place] [address]- 6901 13 Apr, 2015 [facility] [address] [id number] [place] [address]- 2453 07 Apr, 2015 [facility] [address] [id number] [place] [address]- 4236 31 Mar, 2015 [facility] [address] [id number] [place] [address]- 0147 28 Mar, 2015 [facility] [address] [address]- 7976 Mar, [facility] [address] [id number] [place] [address]- 9570 16 Mar, 2015 Renal failure N19 [facility] [address] [id number] [place] [address]- 0918 14 Mar, 2015 [facility] [id number] [address]- 1931 Mar, [facility] [address] [id number] [place] [address]- 9824 Mar, [facility] [address] [id number] [place] [address]- 8759 24 Jan, 2015 [facility] [place] [facility] [address] [id number] [place] [address]- 4764 18 Jan, 2015 [facility] [address] [facility] [id number] [place] [address]- 6492 17 Jan, 2015 [facility] [place] [facility] [address] [id number] [address]- 4094 13 Jan, 2015 [facility] [address] [id number] [place] [address]- 9205 Dec, [facility] [address] [id number] [place] [address]- 2227 Dec, [facility] [address] [facility] [id number] [place] [address]- 2549 Dec, [facility] [address] [facility] [id number] [place] [address]- 3572 Nov, [facility] [address] [id number] [place] [address]- 4789 Nov, [facility] [address] [id number] [place] [address]- 3276 Nov, [facility] [id number] [address]- 8907 Oct, [facility] [address] [address]- 5182 Oct, [facility] [address] [id number] [address]- 3117 Oct, Renal failure 586 and Obesity 278.00 [facility] [address] [address]- 2582 Oct, [facility] [id number] [address]- 1389 Oct, [facility] [address] [address]- 4053 Oct, [facility] [address] [id number] [address]- 5879 Sep, [facility] [address] [address]- 4406 Sep, [facility] [address] [id number] [address]- 8676 Sep, Diabetes mellitus 250.00 and Congestive heart failure, unspecified 428.0 [facility] [address] [id number] [place] [address]- 1476 Aug, [facility] [address] [id number] [place] [address]- 9868 Aug, [facility] [address] [id number] [place] [address]- 9293 Aug, [facility] [address] [id number] [place] [address]- 3684 July, [facility] [address] [id number] [place] [address]- 2804 July, [facility] [address] [id number] [place] [address]- 1285 July, Heart murmur, systolic 785.2 [facility] [address] [id number] [place] [address]- 6770 July, [facility] [address] [id number] [place] [address]- 0781 July, [facility] [address] [id number] [place] [address]- 2535 Jun, [facility] [address] [id number] [place] [address]- 4492 Jun, [facility] [address] [id number] [place] [address]- 6220 May, [facility] [address] [id number] [address]- 8471 May, [facility] [address] [id number] [place] [address]- 4019 May, [facility] [address] [id number] [place] [address]- 1087 May, [facility] [address] [id number] [place] 0601 May, [facility] [address] [id number] [address]- 3093 16 May, 2014 [facility] [place] [facility] [address] [facility] [id number] [place] [address]- 1646 10 May, 2014 [facility] [place] [facility] [address] [facility] [id number] [place] [address] 10 May, 2014 [facility] [place] [facility] [address] [facility] [id number] [place] [address] May, 2014 [facility] [place] [facility] [address] [facility] [id number] [place] [address] May, 2014 [facility] [place] [facility] [address] [facility] [id number] [place] [address] May, 2014 [facility] [place] [facility] [address] [facility] [id number] [place] [address] May, 2014 [facility] [place] [facility] [address] [facility] [id number] [place] [address] May, 2014 [facility] [place] [facility] [address] [facility] [id number] [place] [address] 23 May, 2014 [facility] [place] [facility] [address] [facility] [id number] [place] [address] 18 May, 2014 [facility] [place] [facility] [address] [facility] [id number] [place] [address] 18 May, 2014 [facility] [place] [facility] [address] [facility] [id number] [place] [address] 18 May, 2014 [facility] [place] [facility] [address] [facility] [id number] [address] 18 May, 2014 [facility] [place] [facility] [address] [facility] [id number] [place] [address] 18 May, 2014 [facility] [place] [facility] [address] [facility] [id number] [place] [address] 18 May, 2014 [facility] [place] [facility] [address] [facility] [id number] [place] [address] May, 2014 [facility] [place] [facility] [address] [id number] [place] [address] May, 2014 [facility] [place] [facility] [address] [id number] [place] [address] May, [facility] [place] [facility] [address] [id number] [place] [address] May, [facility] [place] [facility] [address] [id number] [place] [address]- [address] May, [facility] [place] [facility] [address] [id number] [place] [address] May, [facility] [place] [facility] [address] [id number] [place] [address] Apr, [facility] [place] [facility] [address] [id number] [place] [address] Apr, [facility] [place] [facility] [address] [id number] [place] [address] Apr, [facility] [place] [facility] [address] [id number] [place] [address] Apr, [facility] [place] [facility] [address] [id number] [place] [address]- [address] Apr, [facility] [place] [facility] [address] [id number] [place] [address] Apr, [facility] [place] [facility] [address] [id number] [place] [address] Apr, [facility] [place] [facility] [address] [id number] [place] [address]- [address] Apr, [facility] [place] [facility] [address] [id number] [place] [address] Mar, [facility] [place] [facility] [address] [id number] [place] [address]- [address] Mar, [facility] [place] [facility] [address] [id number] [place] [address] Mar, [facility] [address] [id number] [place] [address] Mar, [facility] [place] [facility] [address] [id number] [place] [address] Mar, [facility] [address] [id number] [place] [address] Mar, [facility] [place] [facility] [address] [id number] [place] [address]65 Mar, [facility] [place] [facility] [address] [id number] [place] [address] Mar, [facility] [place] [facility] [address] [id number] [place] [address] Mar, [facility] [address] [id number] [place] [address] Mar, [facility] [place] [facility] [address] [id number] [place] [address] Mar, [facility] [place] [facility] [address] [id number] [place] [address] Mar, [facility] [address] [id number] [place] [address] 11 Mar, 2014 [facility] [place] [facility] [address] [id number] [place] [address] 2696 11 Mar, 2014 [facility] [place] [facility] [address] [id number] [place] [address] 8026 10 Mar, 2014 [facility] [place] [facility] [address] [id number] [place] [address] 7156 Mar, [facility] [place] [facility] [address] [id number] [place] [address] 1916 10 Mar, 2014 [facility] [place] [facility] [address] [id number] [place] [address] 3234 Mar, [facility] [place] [facility] [address] [id number] [place] [address]- 0647 Mar, [facility] [place] [facility] [address] [id number] [place] [address]- 5552 Mar, [facility] [place] [facility] [address] [id number] [place] [address]- 6879 Mar, [facility] [place] [facility] [address] [id number] [place] [address]- 6858 Mar, [facility] [place] [facility] [address] [id number] [place] [address] 3899 Jan, [facility] [place] [facility] [address] [id number] [place] [address] 2589 Jan, [facility] [place] [facility] [address] [id number] [place] [address]- 7984 Jan, [facility] [place] [facility] [address] [id number] [place] [address]- 5962 Jan, [facility] [place] [facility] [address] [id number] [place] [address]- 9975 Jan, [facility] [place] [facility] [address] [id number] [place] [address]- 1453 Jan, [facility] [place] [facility] [address] [id number] [place] [address]- 4794 Jan, [facility] [place] [facility] [address] [id number] [address] 9771 Jan, [facility] [place] [facility] [address] [id number] [place] [address]- 6885 Jan, [facility] [place] [facility] [address] [id number] [place] [address]- 3582 Jan, [facility] [place] [facility] [address] [id number] [place] [address]- 1535 Jan, [facility] [place] [facility] [address] [id number] [address]- 2026 Jan, [facility] [place] [facility] [address] [id number] [place] [address]- 7616 Jan, [facility] [place] [facility] [address] [id number] [place] [address]- 5483 Jan, [facility] [place] [facility] [address] [id number] [place] [address]- 2359 Jan, [facility] [place] [facility] [address] [id number] [place] [address]- 1912 Jan, [facility] [place] [facility] [address] [id number] [place] [address]- 2265 Jan, [facility] [place] [facility] [address] [id number] [place] [address]- 0859 Jan, [facility] [place] [facility] [address] [id number] [place] [address]- 9369 Jan, [facility] [place] [facility] [address] [id number] [place] [address]- 3857 Jan, [facility] [place] [facility] [address] [id number] [place] [address]- 1550 Dec, [facility] [place] [facility] [address] [id number] [place] [address]- 5040 Dec, [facility] [place] [facility] [address] [id number] [address]- 7632 Dec, [facility] [place] [facility] [address] [id number] [address]- 1752 Dec, [facility] [place] [facility] [address] [id number] [place] [address]- 0716 Dec, [facility] [place] [facility] [address] [id number] [address]- 9343 Dec, [facility] [place] [facility] [address] [id number] [place] [address]- 0962 Dec, [facility] [place] [facility] [address] [id number] [place] [address]- 4073 10 Dec, 2013 [facility] [place] [facility] [address] [id number] [place] [address]- 8305 Dec, [facility] [place] [facility] [address] [id number] [place] [address]- 8130 Dec, [facility] [place] [facility] [address] [id number] [place] [address]- 0140 Dec, [facility] [place] [facility] [address] [id number] [place] [address]- 9030 Dec, [facility] [place] [facility] [address] [id number] [place] [address]- 4237 Dec, [facility] [place] [facility] [address] [id number] [place] [address]- 2975 Dec, [facility] [place] [facility] [address] [id number] [place] [address]- 3021 Dec, [facility] [place] [facility] [address] [id number] [place] [address]- 0188 22 Nov, 2013 [facility] [place] [facility] [address] [id number] [place] [address]- 5257 22 Nov, 2013 [facility] [place] [facility] [address] [id number] [place] [address]- 7876 19 Nov, 2013 [facility] [place] [facility] [address] [id number] [place] [address]- 3889 19 Nov, 2013 [facility] [place] [facility] [address] [id number] [place] [address]- 2549 13 Nov, 2013 [facility] [place] [facility] [address] [id number] [place] [address]- 2546 13 Nov, 2013 [facility] [place] [facility] [address] [id number] [place] [address]- 2549 10 Nov, 2013 [facility] [place] [facility] [address] [id number] [place] [address]- 0679 Nov, [facility] [place] [facility] [address] [id number] [place] [address]- 6920 Nov, 2013 [facility] [place] [facility] [address] [id number] [place] [address]- 6391 Nov, [facility] [place] [facility] [address] [id number] [place] [address]- 7455 Nov, [facility] [place] [facility] [address] [id number] [place] [address]- 8893 Nov, [facility] [place] [facility] [address] [id number] [place] [address]- 8449 Nov, [facility] [place] [facility] [address] [id number] [place] [address]- 0974 Oct, [facility] [place] [facility] [address] [id number] [place] [address]- 9545 Oct, [facility] [place] [facility] [address] [id number] [place] [address]- 8004 Oct, [facility] [place] [facility] [address] [id number] [place] [address]- 3179 Oct, [facility] [place] [facility] [address] [id number] [place] [address]- 5582 Oct, [facility] [place] [facility] [address] [id number] [place] [address]- 3125 Sep, [facility] [place] [facility] [address] [id number] [address]- 3210 Sep, [facility] [place] [facility] [address] [id number] [place] [address]- 7903 Sep, [facility] [place] [facility] [address] [id number] [place] [address]- 0324 Sep, [facility] [place] [facility] [address] [id number] [place] [address]- 2582 Aug, [facility] [place] [facility] [address] [id number] [place] [address]- 4987 30 Aug, 2013 [facility] [place] [facility] [address] [id number] [place] [address]- 9315 Aug, [facility] [place] [facility] [address] [id number] [place] [address]- 9515 Aug, [facility] [place] [facility] [address] [id number] [place] [address]- 6213 Aug, [facility] [place] [facility] [address] [id number] [place] [address]- 7955 Aug, [facility] [place] [facility] [address] [id number] [place] [address]- 9236 Aug, [facility] [place] [facility] [address] [id number] [place] [address]- 4824 Aug, [facility] [place] [facility] [address] [id number] [place] [address]- 8857 Aug, [facility] [place] [facility] [address] [id number] [place] [address]- 8064 Aug, [facility] [place] [facility] [address] [id number] [place] [address]- 9436 Aug, [facility] [place] [facility] [address] [id number] [place] [address]- 8287 Aug, [facility] [place] [facility] [address] [id number] [place] [address]- 5232 Aug, [facility] [place] [facility] [address] [id number] [place] [address]- 3646 Aug, [facility] [place] [facility] [address] [id number] [place] [address]- 1899 Aug, [facility] [place] [facility] [address] [id number] [place] [address]- 5965 Aug, [facility] [place] [facility] [address] [id number] [place] [address]- 4274 12 Aug, 2013 [facility] [place] [facility] [address] [id number] [place] [address]- 7013 Aug, [facility] [place] [facility] [address] [id number] [place] [address]- 9782 Aug, [facility] [place] [facility] [address] [id number] [place] [address]- 5582 Aug, [facility] [place] [facility] [address] [id number] [place] [address]- 4121 Aug, [facility] [place] [facility] [address] [id number] [place] [address]- 4364 Aug, [facility] [place] [facility] [address] [id number] [place] [address]- 3811 Aug, [facility] [place] [facility] [address] [id number] [place] [address]- 5019 Aug, [facility] [place] [facility] [address] [id number] [place] [address]- 8464 July, [facility] [place] [facility] [address] [id number] [place] [address]- 4998 July, [facility] [place] [facility] [address] [id number] [place] [address]- 8873 July, [facility] [place] [facility] [address] [id number] [place] [address]- 5271 July, [facility] [place] [facility] [address] [id number] [place] [address]- 5811 July, [facility] [place] [facility] [address] [id number] [place] [address]- 6738 July, [facility] [place] [facility] [address] [id number] [place] [address]- 9289 Jun, [facility] [place] [facility] [address] [id number] [place] [address]- 1279 Jun, [facility] [place] [facility] [address] [id number] [place] [address]- 4728 Jun, [facility] [place] [facility] [address] [id number] [place] [address]- 4488 Jun, [facility] [place] [facility] [address] [id number] [place] [address]- 8810 Jun, [facility] [place] [facility] [address] [id number] [place] [address]- 2792 Jun, [facility] [place] [facility] [address] [id number] [place] [address]- 3939 Jun, [facility] [place] [facility] [address] [id number] [place] [address]- 7065 Jun, [facility] [place] [facility] [address] [id number] [place] [address]- 4894 Jun, [facility] [place] [facility] [address] [id number] [place] [address]- 8508 Jun, [facility] [place] [facility] [address] [id number] [place] [address]- 2832 Jun, [facility] [place] [facility] [address] [id number] [place] [address]- 8632 Jun, [facility] [place] [facility] [address] [id number] [place] [address]- 4270 Jun, [facility] [place] [facility] [address] [id number] [place] [address]- 7358 Jun, [facility] [place] [facility] [address] [id number] [place] [address]- 9837 Jun, [facility] [place] [facility] [address] [id number] [place] [address]- 5803 May, [facility] [place] [facility] [address] [id number] [place] [address]- 9051 May, [facility] [place] [facility] [address] [id number] [place] [address]- 1963 May, [facility] [place] [facility] [address] [id number] [place] [address]- 3689 May, [facility] [place] [facility] [address] [id number] [place] [address]- 4924 May, [facility] [place] [facility] [address] [id number] [place] 8407 May, [facility] [place] [facility] [address] [id number] [place] [address]- 2862 May, [facility] [place] [facility] [address] [id number] [place] [address]- 1265 May, [facility] [place] [facility] [address] [id number] [place] [address]- 5431 May, [facility] [place] [facility] [address] [id number] [place] [address]- 9570 May, [facility] [place] [facility] [address] [id number] [place] [address]- 3261 May, [facility] [place] [facility] [address] [id number] [place] [address]- 0003 May, [facility] [place] [facility] [address] [id number] [place] [address]- 4288 May, [facility] [place] [facility] [address] [id number] [place] [address]- 0470 May, [facility] [place] [facility] [address] [id number] [place] [address]- 3557 May, [facility] [place] [facility] [address] [id number] [place] [address]- 9333 May, [facility] [place] [facility] [address] [id number] [place] [address]- 4021 May, [facility] [place] [facility] [address] [id number] [place] [address]- 0944 Apr, [facility] [place] [facility] [address] [id number] [place] [address]- 9145 Apr, [facility] [place] [facility] [address] [id number] [place] [address]- 6867 Apr, [facility] [place] [facility] [address] [id number] [place] [address]- 7800 Apr, [facility] [place] [facility] [address] [id number] [place] [address]- 1574 Apr, [facility] [place] [facility] [address] [id number] [place] [address]- 8588 Apr, [facility] [place] [facility] [address] [id number] [place] [address]- 9424 Apr, [facility] [place] [facility] [address] [id number] [place] [address]- 3642 Apr, [facility] [place] [facility] [address] [id number] [place] [address]- 4466 Apr, [facility] [place] [facility] [address] [id number] [place] [address]- 2601 Apr, [facility] [place] [facility] [address] [id number] [place] [address]- 9181 Apr, [facility] [place] [facility] [address] [id number] [place] [address]- 3601 Apr, [facility] [place] [facility] [address] [id number] [address]- 4671 Apr, [facility] [place] [facility] [address] [id number] [address]- 4264 Apr, [facility] [place] [facility] [address] [id number] [place] [address]- 2231 Apr, [facility] [place] [facility] [address] [id number] [place] [address]- 1805 Apr, [facility] [place] [facility] [address] [id number] [place] [address]- 2606 Mar, [facility] [place] [facility] [address] [id number] [place] [address]- 5216 30 Mar, 2012 [facility] [address] [id number] [place] [address]- 6996 30 Mar, 2012 [facility] [address] [id number] [place] 6536 30 Mar, 2012 [facility] [address] [id number] [place] [address]- 5781 18 Mar, 2012 [facility] [address] [id number] [place] [address]- 3378 18 Mar, 2012 [facility] [address] [id number] [place] 4107 18 Mar, 2013 [facility] [address] [id number] [place] [address]- 1794 18 Mar, 2013 [facility] [address] [id number] [place] [address]- 3170 17 Mar, 2013 [facility] [address] [id number] [place] [address]- 7460 17 Mar, 2013 [facility] [address] [id number] [place] [address]- 3542 05 Mar, 2013 [facility] [address] [id number] [place] [address]- 3920 05 Mar, 2013 [facility] [address] [id number] [place] [address]- 9944 04 Mar, 2013 [facility] [place] [facility] [address] [id number] [place] [address]- 1673 04 Mar, 2013 [facility] [place] [facility] [address] [id number] [place] [address]- 2003 04 Mar, 2013 [facility] [place] [facility] [address] [id number] [place] [address]- 3710 04 Mar, 2013 [facility] [place] [facility] [address] [id number] [place] [address]- 1475 02 Mar, 2013 [facility] [place] [facility] [address] [id number] [place] [address]- 4859 Mar, [facility] [place] [facility] [address] [id number] [place] [address]- 5683 Jan, [facility] [place] [facility] [address] [id number] [place] [address]- 1874 Jan, [facility] [place] [facility] [address] [id number] [place] [address]- 9588 Jan, [facility] [place] [facility] [address] [id number] [place] [address]- 2272 Jan, [facility] [place] [facility] [address] [id number] [place] [address]- 3471 Nov, [facility] [place] [facility] [address] [id number] [place] [address]- 1788 Nov, [facility] [place] [facility] [address] [id number] [place] [address]- 8430 Nov, [facility] [place] [facility] [address] [id number] [place] [address]- 9457 Nov, [facility] [place] [facility] [address] [id number] [place] [address]- 4092 Oct, [facility] [place] [facility] [address] [id number] [place] [address]- 6261 Oct, [facility] [place] [facility] [address] [id number] [place] [address]- 8387 Oct, [facility] [place] [facility] [address] [id number] [place] [address]- 4044 Oct, [facility] [place] [facility] [address] [id number] [place] [address]- 7280 Sep, [facility] [place] [facility] [address] [id number] [place] [address]- 7240 Sep, [facility] [place] [facility] [address] [id number] [place] [address]- 6476 Sep, [facility] [address] [id number] [place] [address]- 9217 Sep, [facility] [place] [facility] [address] [id number] [place] [address]- 4698 Sep, [facility] [place] [facility] [address] [id number] [place] [address]- 0209 Sep, [facility] [place] [facility] [address] [id number] [place] [address]- 6494 Sep, [facility] [place] [facility] [address] [id number] [place] [address]- 4043 Sep, [facility] [place] [facility] [address] [id number] [place] [address]- 8974 Sep, [facility] [place] [facility] [address] [id number] [place] [address]- 2822 Aug, [facility] [place] [facility] [address] [id number] [place] [address]- 5898 Aug, [facility] [place] [facility] [address] [id number] [place] [address]- 3065 Aug, [facility] [place] [facility] [address] [id number] [place] [address]- 9075 Aug, [facility] [place] [facility] [address] [id number] [place] [address]- 6412 July, [facility] [place] [facility] [address] [id number] [place] [address]- 6559 July, [facility] [place] [facility] [address] [id number] [place] [address]- 7469 July, [facility] [place] [facility] [address] [id number] [place] [address]- 0350 July, [facility] [place] [facility] [address] [id number] [place] [address] July, [facility] [place] [facility] [address] [id number] [address] July, [facility] [address] [id number] [address] July, [facility] [id number] [address] Jun, [facility] [address] [id number] [address] May, [facility] [id number] [address] May, [facility] [id number] [address] May, [facility] [id number] [address] May, [facility] [id number] [address] May, [facility] [address] [id number] [address] May, [facility] [id number] [address] May, [facility] [address] [id number] [address] May, IMMUNIZATIONS No Known Immunizations SOCIAL HISTORY [...]
--- OUTSIDE RECORDS SUMMARY | 2017-12-18 20:23 | XMS REPORT ---
Author Author MCKENNA HEBERT Organization [facility] Address [address] [place] [address] Care Team Providers Care Infection Prevention Coordinator Name Role Phone MCKENNA HEBERT Unavailable PROBLEMS Type Condition ICD9-CM Code JDU73-LA Code Onset Dates Condition Status SNOMED Code Problem Diabetes type 2, controlled E11.9 Active 64057791 Problem Neuropathy G62.9 Active 114445686 Problem Renal failure N19 Active 01965445 Problem Cellulitis of right lower extremity L03.115 Active 219604855 Problem Angina pectoris I20.9 Active 762826999 Problem Seasonal allergic rhinitis due to other allergic trigger J30.89 Active 927692643 Problem Intra-dialytic hypotension I95.3 Active 277761410 Problem Amput below knee, unilat S88.119A Active 36472001 Problem Chronic congestive heart failure, unspecified heart failure type I50.9 Active 30590154 Problem Chronic congestive heart failure, unspecified congestive heart failure type I50.9 Active 36054878 ALLERGIES No Information ENCOUNTERS Encounter Location Date Diagnosis [facility] [id number] [place] [address] 90239- 6138 July, [facility] [address], [place] [address] 1266 Jun, [facility] [id number] [place] [address] 31718- 8226 Jun, [facility] [address] [place] [address] 03695- 8559 Jun, Diabetes type 2, controlled E11.9 [facility] [address], [place] [address]- 8525 Jun, [facility] [address] [place] [address] 74548- 5763 May, [facility] [address] [place] [address] 86826- 1374 May, [facility] [address] 86857- 3662 May, [facility] [id number] [place] [address] 26966- 9919 May, Chronic congestive heart failure, unspecified congestive heart failure type I50.9 [facility] [address] 28692- 0022 May, Diabetes type 2, controlled E11.9 ; BMI 50.0-59.9, adult Z68.43 ; Chronic congestive heart failure, unspecified heart failure type I50.9 ; Angina pectoris I20.9 ; Seasonal allergic rhinitis due to other allergic trigger J30.89 and Renal failure N19 [facility] [id number] [place] [address] [id number] May, [facility] [id number] [place] [address] 91577- 2153 May, [facility] [id number] [place] [address] 38884- 3677 May, [facility] [id number] [place] [address] 41778- 1544 May, [place] [id number] [place] [address] 49157- 2126 May, [facility] [id number] [place] [address] 81511- 4169 Apr, BMI 50.0-59.9, adult Z68.43 [facility] [address] 0[address]64- 2882 Apr, BMI 50.0-59.9, adult Z68.43 ; Post-procedural fever R50.82 and Bronchitis J40 [facility] [address] 7[address]96- 8000 Apr, Chronic congestive heart failure, unspecified congestive heart failure type I50.9 [facility] [address] [id number], [place] [address]- 6353 Jan, [facility] [address] [facility] [id number], [place] [address]- 2986 Jan, Diabetes type 2, controlled E11.9 [facility] [address] [facility] [id number] [place] [address]- 1468 Jan, Neuropathy G62.9 [facility] [address] [id number] [place] [address]- 7885 Jan, [facility] [address] [facility] [id number] [place] [address] 66427- 7138 Jan, [facility] [address] [facility] [id number], [place] [address]- 6588 Jan, [facility] [address] [facility] [id number], [place] [address]- 8781 Jan, [facility] [address] [facility] [id number], [place] [address]- 1307 Jan, [facility] [id number] [address]- 7729 Dec, [facility] [address] [facility] [id number], [place] [address]- 6871 Dec, [facility] [address] [facility] [id number], [place] [address]- 4224 Dec, Diabetes type 2, controlled E11.9 [facility] [address] [facility] [id number], [place] [address]- 6063 Dec, [facility] [address] [facility] [id number], [place] [address]- 6690 Dec, [facility] [address] [facility] [id number], [place] [address]- 0366 Dec, Chronic congestive heart failure, unspecified congestive heart failure type I50.9 [facility] [address] [facility] [id number] [place] [address]- 4343 Dec, [facility] [address] [facility] [id number], [place] [address]- 4865 Dec, [facility] [address] [facility] [id number] [place] [address]- 8297 Nov, Chronic congestive heart failure, unspecified congestive heart failure type I50.9 [facility] [address] [facility] [id number] [place] [address]- 1958 Nov, Chronic congestive heart failure, unspecified congestive heart failure type I50.9 [facility] [address] [facility] [id number], [place] [address]- 1753 Nov, [facility] [address] [facility] [id number], [place] [address]- 7061 Oct, [facility] [address] [facility] [id number], [place] [address]- 4280 Oct, [facility] [address] [facility] [id number], [place] [address]- 1998 Oct, Chronic congestive heart failure, unspecified congestive heart failure type I50.9 [facility] [address] [facility] [id number], [place] [address]- 2660 Oct, [facility] [address] [facility] [id number], [place] [address]- 6130 Oct, Pneumonia of both lungs due to infectious organism, unspecified part of lung J18.9 [facility] [address] [facility] [id number], [place] [address]- 5375 Oct, [facility] [address] [facility] [id number], [place] [address]- 9762 Oct, Diabetes type 2, controlled E11.9 [facility] [address] [facility] [id number], [place] [address]- 8577 Oct, Diabetes type 2, controlled E11.9 [facility] [address] [facility] [id number] [place] [address] 2546 Sep, [facility] [address] [facility] [id number] [place] [address], [place] [address] 2546 Sep, Neuropathy G62.9 [facility] [id number] [place] [address] 2546 Aug, Intra-dialytic hypotension I95.3 [facility] [id number] [place] [address], [place] [address] 2546 July, [facility] [id number] [place] [address], [place] [address] 2546 July, [facility] [id number] [place] [address] 78066 2546 July, [facility] [id number] [place] [address] 14719 2546 July, Amput below knee, unilat S88.119A [facility] [id number] [place] [address] 2546 May, [facility] [id number] [place] [address], [place] [address] 2546 May, Neuropathy G62.9 [facility] [address], [place] [address] 2546 May, [facility] [address], [place] [address] 2546 May, [facility] [address] [place] [address] 2546 May, [facility] [id number] [place] [address], [place] [address] 2546 May, [facility] [address], [place] [address] 2546 May, Neuropathy G62.9 [facility] [id number] [place] [address]- 0663 Apr, [facility] [address] [place] [address]- 9797 Apr, [facility] [address] [place] [address]- 7654 Apr, Diabetes type 2, controlled E11.9 and Renal failure N19 [facility] [address] [place] [address], [place] [address] -4349 Apr, [facility] [id number] [place] [address]- 3485 Apr, [facility] [id number] [place] [address], [place] [address]- 9837 Mar, [facility] [id number] [place] [address], [place] [address]- 8660 Mar, [facility] [address] [place] [address], [place] [address]- 0900 Mar, [facility] [address] [place] [address]- 2819 Mar, [facility] [address] [place] [address]- 8798 Mar, [facility] [address] [place] [address]- 8286 Jan, Localized edema R60.0 [facility] [address], [place] [address]- 0600 Jan, [facility] [id number] [place] [address]- 7558 Jan, [facility] [address] [place] [address]- 4859 Jan, [facility] [address] [place] [address]- 4822 Jan, [facility] [id number] [place] [address] 15218- 2106 Jan, [facility] [id number] [place] [address] 39237- 6611 Jan, [facility] [id number] [place] [address] 04511- 9424 Dec, Diabetes type 2, controlled E11.9 and Chronic nonintractable headache, unspecified headache type R51 [facility] [id number] [place] [address] 31347- 6922 Dec, [facility] [id number] [place] [address] 88879- 8954 Dec, [facility] [id number] [place] [address] 11672- 7736 Nov, [facility] [id number] [place] [address] 70519- 3702 Nov, [facility] [id number] [place] [address] 00130- 6577 Oct, [facility] [id number] [place] [address] 44006- 6669 Oct, Migraine without status migrainosus, not intractable, unspecified migraine type G43.909 [facility] [id number] [place] [address] 57217- 1250 Oct, [facility] [id number] [place] [address] 23374- 2493 Sep, Amput below knee, unilat S88.119A and Neuropathy G62.9 [facility] [id number] [place] [address] 70652- 8658 Sep, [facility] [id number] [place] [address] 21060- 1468 Sep, [facility] [id number] [place] [address] 16056- 0562 Sep, [facility] [address] [facility] [id number] [place] [address]- 2791 30 Aug, 2015 [facility] [address] [facility] [id number] [place] [address]- 8990 Aug, [facility] [address] [facility] [id number] [place] [address]- 0558 17 Aug, 2015 Diabetes type 2, controlled E11.9 [facility] [address] [facility] [id number] [place] [address]- 0828 Aug, [facility] [address] [facility] [id number] [place] [address]- 1989 Jun, Diabetes type 2, controlled E11.9 and Neuropathy G62.9 [facility] [address] [facility] [id number] [place] [address]- 5508 Jun, [facility] [address] [place] [address]- 5990 Jun, [facility] [address] [facility] [id number] [place] [address]- 9928 Jun, [facility] [address] [place] [address]- 2641 Jun, [facility] [address] [place] [address]- 6974 May, [facility] [address] [facility] [id number] [place] [address]- 8592 May, Diabetes type 2, controlled E11.9 [facility] [address] [facility] [id number], [place] [address]- 9961 May, [facility] [id number] [place] [address]- 6343 May, [facility] [address] [facility] [id number] [place] [address]- 0033 May, [facility] [address], [place] [address]- 2531 May, [facility] [address], [place] [address]- 9944 May, [facility] [address], [place] [address]- 7746 May, [facility] [address], [place] [address]- 1676 May, [facility] [address] [place] [address] 79618- 0773 May, COPD (chronic obstructive pulmonary disease) J44.9 [facility] [address] [place] [address] 71371- 9112 May, [facility] [address], [place] [address]- 7220 May, [facility] [address] [place] [address] 64283- 8427 May, [facility] [address], [place] [address]- 3277 May, [facility] [address], [place] [address]- 2146 May, [facility] [address], [place] [address]- 3256 May, Renal failure N19 and Pneumonia, organism unspecified, unspecified laterality, unspecified part of lung J18.9 [facility] [address], [place] [address]- 1908 Apr, [facility] [address], [place] [address]- 1208 Apr, [facility] [address], [place] [address]- 3385 Apr, [facility] [address], [place] [address]- 1567 Apr, Diabetes mellitus 250.00 [facility] [address] [id number] [place] [address]- 2971 14 Apr, 2015 [facility] [address] [id number] [place] [address]- 0146 14 Apr, 2015 [facility] [address] [id number] [place] [address]- 0185 13 Apr, 2015 [facility] [address] [id number] [place] [address]- 7442 07 Apr, 2015 [facility] [address] [id number] [place] [address]- 9982 31 Mar, 2015 [facility] [address] [id number] [place] [address]- 2854 28 Mar, 2015 [facility] [address] [place] [address]- 7929 Mar, [facility] [address] [id number] [place] [address]- 6417 16 Mar, 2015 Renal failure N19 [facility] [address] [id number] [place] [address]- 2760 14 Mar, 2015 [facility] [id number] [place] [address]- 2751 Mar, [facility] [address] [id number] [place] [address]- 0123 Mar, [facility] [address] [id number] [place] [address]- 5490 24 Jan, 2015 [facility] [place] [facility] [address] [id number] [place] [address]- 6879 18 Jan, 2015 [facility] [address] [facility] [id number] [place] [address]- 8249 17 Jan, 2015 [facility] [place] [facility] [id number] [place] [address]- 6736 13 Jan, 2015 [facility] [address] [id number] [place] [address]- 4734 Dec, [facility] [address] [id number] [place] [address]- 5584 Dec, [facility] [address] [facility] [id number] [place] [address]- 2191 Dec, [facility] [address] [facility] [id number] [place] [address]- 4196 Nov, [facility] [address] [id number] [place] [address]- 7148 Nov, [facility] [address] [id number] [place] [address]- 0017 Nov, [facility] [id number] [place] [address]- 9470 Oct, [facility] [address] [place] [address]- 6604 Oct, [facility] [id number] [place] [address]- 6994 Oct, Renal failure 586 and Obesity 278.00 [facility] [address] [place] [address]- 1561 Oct, [facility] [id number] [place] [address]- 6401 Oct, [facility] [address] [address]- 9917 Oct, [facility] [id number] [address]- 7248 Sep, [facility] [address] [place] [address]- 1948 Sep, [facility] [id number] [place] [address]- 2216 Sep, Diabetes mellitus 250.00 and Congestive heart failure, unspecified 428.0 [facility] [address] [id number] [place] [address]- 6122 Aug, [facility] [address] [id number] [place] [address]- 7461 Aug, [facility] [address] [id number] [place] [address]- 5774 Aug, [facility] [address] [id number] [place] [address]- 0434 July, [facility] [address] [id number] [place] [address]- 0493 July, [facility] [address] [id number] [place] [address]- 8165 July, Heart murmur, systolic 785.2 [facility] [address] [id number] [place] [address]- 3719 July, [facility] [address] [id number] [place] [address]- 0648 July, [facility] [address] [id number] [place] [address]- 7964 Jun, [facility] [address] [id number] [place] [address]- 5981 Jun, [facility] [address] [id number] [place] [address]- 6661 May, [facility] [address] [id number], [place] [address]- 6929 May, [facility] [address] [id number] [place] [address]- 7352 May, [facility] [address] [id number] [place] [address]- 9990 May, [facility] [address] [id number] [place] 7547 May, [facility] [address] [id number], [place] [address]- 6085 16 May, 2014 [facility] [place] [facility] [address] [facility] [id number] [place] [address] 10 May, 2014 [facility] [place] [facility] [address] [facility] [id number] [place] [address] 10 May, 2014 [facility] [place] [facility] [address] [facility] [id number] [place] [address] May, 2014 [facility] [place] [facility] [address] [facility] [id number] [place] [address] May, 2014 [facility] [place] [facility] [address] [facility] [id number] [place] [address] May, 2014 [facility] [place] [facility] [address] [facility] [id number] [place] [address] May, 2014 [facility] [place] [facility] [address] [facility] [id number] [place] [address] May, 2014 [facility] [place] [facility] [address] [facility] [id number] [place] [address] 23 May, 2014 [facility] [place] [facility] [address] [facility] [id number] [place] [address] 18 May, 2014 [facility] [place] [facility] [address] [facility] [id number] [place] [address] 18 May, 2014 [facility] [place] [facility] [address] [facility] [id number] [place] [address] 18 May, 2014 [facility] [place] [facility] [address] [facility] [id number], [place] [address] 18 May, 2014 [facility] [place] [facility] [address] [facility] [id number] [place] [address]- [address] 18 May, 2014 [facility] [place] [facility] [address] [facility] [id number] [place] [address] 18 May, 2014 [facility] [place] [facility] [address] [facility] [id number] [place] [address] May, 2014 [facility] [place] [facility] [address] [id number] [place] [address] May, 2014 [facility] [place] [facility] [address] [id number] [place] [address] May, [facility] [place] [facility] [address] [id number] [place] [address] May, [facility] [place] [facility] [address] [id number] [place] [address] May, [facility] [place] [facility] [address] [id number] [place] [address] May, [facility] [place] [facility] [address] [id number] [place] [address] Apr, [facility] [place] [facility] [address] [id number] [place] [address] Apr, [facility] [place] [facility] [address] [id number] [place] [address] Apr, [facility] [place] [facility] [address] [id number] [place] [address] Apr, [facility] [place] [facility] [address] [id number] [place] [address] Apr, [facility] [place] [facility] [address] [id number] [place] [address] Apr, [facility] [place] [facility] [address] [id number] [place] [address] Apr, [facility] [place] [facility] [address] [id number] [place] [address] Apr, [facility] [place] [facility] [address] [id number] [place] [address] Mar, [facility] [place] [facility] [address] [id number] [place] [address] 4266 Mar, [facility] [place] [facility] [address] [id number] [place] [address] 9[address] Mar, [facility] [address] [id number] [place] [address] 7936 Mar, [facility] [place] [facility] [address] [id number] [place] [address]- 7456 Mar, [facility] [address] [id number] [place] [address]- 6441 Mar, [facility] [place] [facility] [address] [id number] [place] [address] 0901 Mar, [facility] [place] [facility] [address] [id number] [place] [address]- 0101 Mar, [facility] [place] [facility] [address] [id number] [place] [address]- 6680 Mar, [facility] [address] [id number] [place] [address]- 4385 Mar, [facility] [place] [facility] [address] [id number] [place] [address] 4023 Mar, [facility] [place] [facility] [address] [id number] [place] [address]- 6796 Mar, [facility] [address] [id number] [place] [address]- 2308 11 Mar, 2014 [facility] [place] [facility] [address] [id number] [place] [address]- 8796 11 Mar, 2014 [facility] [place] [facility] [address] [id number] [place] [address]- 8386 10 Mar, 2014 [facility] [place] [facility] [address] [id number] [place] [address]- 9736 Mar, [facility] [place] [facility] [address] [id number] [place] [address]- 0816 10 Mar, 2014 [facility] [place] [facility] [address] [id number] [place] [address]- 1410 Mar, [facility] [place] [facility] [address] [id number] [place] [address]- 6485 Mar, [facility] [place] [facility] [address] [id number] [place] [address]- 0614 Mar, [facility] [place] [facility] [address] [id number] [place] [address]- 6064 Mar, [facility] [place] [facility] [address] [id number] [place] [address]- 3414 Mar, [facility] [place] [facility] [address] [id number] [place] [address]- 4015 Jan, [facility] [place] [facility] [address] [id number] [place] [address]- 2528 Jan, [facility] [place] [facility] [address] [id number] [place] [address]- 3558 Jan, [facility] [place] [facility] [address] [id number] [place] [address]- 6190 Jan, [facility] [place] [facility] [address] [id number] [place] [address]- 2226 Jan, [facility] [place] [facility] [address] [id number] [place] [address]- 6399 Jan, [facility] [place] [facility] [address] [id number] [place] [address]- 9871 Jan, [facility] [place] [facility] [address] [id number], [place] [address] Jan, [facility] [place] [facility] [address] [id number] [place] [address]- 4637 Jan, [facility] [place] [facility] [address] [id number] [place] [address]- 5701 Jan, [facility] [place] [facility] [address] [id number] [place] [address]- 8623 Jan, [facility] [place] [facility] [address] [id number], [place] [address]- 0839 Jan, [facility] [place] [facility] [address] [id number] [place] [address]- 8151 Jan, [facility] [place] [facility] [address] [id number] [place] [address]- 1372 Jan, [facility] [place] [facility] [address] [id number] [place] [address]- 6729 Jan, [facility] [place] [facility] [address] [id number] [place] [address]- 5052 Jan, [facility] [place] [facility] [address] [id number] [place] [address]- 5806 Jan, [facility] [place] [facility] [address] [id number] [place] [address]- 2501 Jan, [facility] [place] [facility] [address] [id number] [place] [address]- 7921 Jan, [facility] [place] [facility] [address] [id number] [place] [address]- 8171 Jan, [facility] [place] [facility] [address] [id number] [place] [address]- 3124 Dec, [facility] [place] [facility] [address] [id number] [place] [address]- 3087 Dec, [facility] [place] [facility] [address] [id number], [place] [address]- 6319 Dec, [facility] [place] [facility] [address] [id number], [place] [address]- 8640 Dec, [facility] [place] [facility] [address] [id number] [place] [address]- 7965 Dec, [facility] [place] [facility] [address] [id number], [place] [address]- 5871 Dec, [facility] [place] [facility] [address] [id number] [place] [address]- 2328 Dec, [facility] [place] [facility] [address] [id number] [place] [address]- 4973 10 Dec, 2013 [facility] [place] [facility] [address] [id number] [place] [address]- 1921 Dec, [facility] [place] [facility] [address] [id number] [place] [address]- 2091 Dec, [facility] [place] [facility] [address] [id number] [place] [address]- 0487 Dec, [facility] [place] [facility] [address] [id number] [place] [address]- 7690 Dec, [facility] [place] [facility] [address] [id number] [place] [address]- 3103 Dec, [facility] [place] [facility] [address] [id number] [place] [address]- 0870 Dec, [facility] [place] [facility] [address] [id number] [place] [address]- 8174 Dec, [facility] [place] [facility] [address] [id number] [place] [address]- 3771 22 Nov, 2013 [facility] [place] [facility] [address] [id number] [place] [address]- 5077 22 Nov, 2013 [facility] [place] [facility] [address] [id number] [place] [address]- 3979 19 Nov, 2013 [facility] [place] [facility] [address] [id number] [place] [address]- 8724 19 Nov, 2013 [facility] [place] [facility] [address] [id number] [place] [address]- 2542 13 Nov, 2013 [facility] [place] [facility] [address] [id number] [place] [address]- 2546 13 Nov, 2013 [facility] [place] [facility] [address] [id number] [place] [address]- 2540 10 Nov, 2013 [facility] [place] [facility] [address] [id number] [place] [address]- 6207 Nov, [facility] [place] [facility] [address] [id number] [place] [address]- 2762 Nov, 2013 [facility] [place] [facility] [address] [id number] [place] [address]- 2161 Nov, [facility] [place] [facility] [address] [id number] [place] [address]- 9103 Nov, [facility] [place] [facility] [address] [id number] [place] [address]- 6658 Nov, [facility] [place] [facility] [address] [id number] [place] [address]- 6701 Nov, [facility] [place] [facility] [address] [id number] [place] [address]- 6749 Oct, [facility] [place] [facility] [address] [id number] [place] [address]- 4754 Oct, [facility] [place] [facility] [address] [id number] [place] [address]- 8132 Oct, [facility] [place] [facility] [address] [id number] [place] [address]- 5523 Oct, [facility] [place] [facility] [address] [id number] [place] [address]- 9154 Oct, [facility] [place] [facility] [address] [id number] [place] [address]- 7540 Sep, [facility] [place] [facility] [address] [id number], [place] [address]- 4737 Sep, [facility] [place] [facility] [address] [id number] [place] [address]- 8828 Sep, [facility] [place] [facility] [address] [id number] [place] [address]- 2287 Sep, [facility] [place] [facility] [address] [id number] [place] [address]- 8229 Aug, [facility] [place] [facility] [address] [id number] [place] [address]- 9712 30 Aug, 2013 [facility] [place] [facility] [address] [id number] [place] [address]- 2264 Aug, [facility] [place] [facility] [address] [id number] [place] [address]- 3961 Aug, [facility] [place] [facility] [address] [id number] [place] [address]- 2325 Aug, [facility] [place] [facility] [address] [id number] [place] [address]- 9538 Aug, [facility] [place] [facility] [address] [id number] [place] [address]- 1737 Aug, [facility] [place] [facility] [address] [id number] [place] [address]- 1991 Aug, [facility] [place] [facility] [address] [id number] [place] [address]- 6443 Aug, [facility] [place] [facility] [address] [id number] [place] [address]- 8823 Aug, [facility] [place] [facility] [address] [id number] [place] [address]- 8458 Aug, [facility] [place] [facility] [address] [id number] [place] [address]- 5893 Aug, [facility] [place] [facility] [address] [id number] [place] [address]- 9377 Aug, [facility] [place] [facility] [address] [id number] [place] [address]- 5172 Aug, [facility] [place] [facility] [address] [id number] [place] [address]- 0183 Aug, [facility] [place] [facility] [address] [id number] [place] [address]- 3532 Aug, [facility] [place] [facility] [address] [id number] [place] [address]- 2954 12 Aug, 2013 [facility] [place] [facility] [address] [id number] [place] [address]- 2572 Aug, [facility] [place] [facility] [address] [id number] [place] [address]- 1959 Aug, [facility] [place] [facility] [address] [id number] [place] [address]- 2219 Aug, [facility] [place] [facility] [address] [id number] [place] [address]- 3959 Aug, [facility] [place] [facility] [address] [id number] [place] [address]- 6115 Aug, [facility] [place] [facility] [address] [id number] [place] [address]- 5596 Aug, [facility] [place] [facility] [address] [id number] [place] [address]- 8202 Aug, [facility] [place] [facility] [address] [id number] [place] [address]- 3639 July, [facility] [place] [facility] [address] [id number] [place] [address]- 2159 July, [facility] [place] [facility] [address] [id number] [place] [address]- 4931 July, [facility] [place] [facility] [address] [id number] [place] [address]- 0786 July, [facility] [place] [facility] [address] [id number] [place] [address]- 3007 July, [facility] [place] [facility] [address] [id number] [place] [address]- 0406 July, [facility] [place] [facility] [address] [id number] [place] [address]- 7949 Jun, [facility] [place] [facility] [address] [id number] [place] [address]- 5716 Jun, [facility] [place] [facility] [address] [id number] [place] [address]- 9447 Jun, [facility] [place] [facility] [address] [id number] [place] [address]- 3030 Jun, [facility] [place] [facility] [address] [id number] [place] [address]- 0512 Jun, [facility] [place] [facility] [address] [id number] [place] [address]- 4287 Jun, [facility] [place] [facility] [address] [id number] [place] [address]- 0793 Jun, [facility] [place] [facility] [address] [id number] [place] [address]- 9966 Jun, [facility] [place] [facility] [address] [id number] [place] [address]- 6804 Jun, [facility] [place] [facility] [address] [id number] [place] [address]- 5032 Jun, [facility] [place] [facility] [address] [id number] [place] [address]- 4269 Jun, [facility] [place] [facility] [address] [id number] [place] [address]- 6288 Jun, [facility] [place] [facility] [address] [id number] [place] [address]- 1017 Jun, [facility] [place] [facility] [address] [id number] [place] [address]- 1280 Jun, [facility] [place] [facility] [address] [id number] [place] [address]- 6950 Jun, [facility] [place] [facility] [address] [id number] [place] [address]- 5379 May, [facility] [place] [facility] [address] [id number] [place] [address]- 1983 May, [facility] [place] [facility] [address] [id number] [place] [address]- 6636 May, [facility] [place] [facility] [address] [id number] [place] [address]- 4991 May, [facility] [place] [facility] [address] [id number] [place] [address]- 6448 May, [facility] [place] [facility] [address] [id number] [place] [address] May, [facility] [place] [facility] [address] [id number] [place] [address]- 7983 May, [facility] [place] [facility] [address] [id number] [place] [address]- 1512 May, [facility] [place] [facility] [address] [id number] [place] [address]- 2744 May, [facility] [place] [facility] [address] [id number] [place] [address]- 4118 May, [facility] [place] [facility] [address] [id number] [place] [address]- 8907 May, [facility] [place] [facility] [address] [id number] [place] [address]- 1691 May, [facility] [place] [facility] [address] [id number] [place] [address]- 7213 May, [facility] [place] [facility] [address] [id number] [place] [address]- 7845 May, [facility] [place] [facility] [address] [id number] [place] [address]- 4182 May, [facility] [place] [facility] [address] [id number] [place] [address]- 7001 May, [facility] [place] [facility] [address] [id number] [place] [address]- 0706 May, [facility] [place] [facility] [address] [id number] [place] [address]- 5588 Apr, [facility] [place] [facility] [address] [id number] [place] [address]- 7866 Apr, [facility] [place] [facility] [address] [id number] [place] [address]- 5670 Apr, [facility] [place] [facility] [address] [id number] [place] [address]- 1154 Apr, [facility] [place] [facility] [address] [id number] [place] [address]- 8066 Apr, [facility] [place] [facility] [address] [id number] [place] [address]- 1842 Apr, [facility] [place] [facility] [address] [id number] [place] [address]- 8780 Apr, [facility] [place] [facility] [address] [id number] [place] [address]- 0092 Apr, [facility] [place] [facility] [address] [id number] [place] [address]- 6494 Apr, [facility] [place] [facility] [address] [id number] [place] [address]- 8966 Apr, [facility] [place] [facility] [address] [id number] [place] [address]- 1508 Apr, [facility] [place] [facility] [address] [id number] [place] [address]- 2407 Apr, [facility] [place] [facility] [address] [id number], [place] [address]- 0685 Apr, [facility] [place] [facility] [address] [id number], [place] [address]- 8161 Apr, [facility] [place] [facility] [address] [id number] [place] [address]- 9011 Apr, [facility] [place] [facility] [address] [id number] [place] [address]- 2701 Apr, [facility] [place] [facility] [address] [id number] [place] [address]- 9098 Mar, [facility] [place] [facility] [address] [id number] [place] [address]- 3838 30 Mar, 2012 [facility] [address] [id number] [place] [address]- 8956 30 Mar, 2012 [facility] [address] [id number] [place]456 30 Mar, 2012 [facility] [address] [id number] [place] [address]- 4277 18 Mar, 2012 [facility] [address] [id number] [place] [address]- 3773 18 Mar, 2012 [facility] [address] [id number] [place]199 18 Mar, 2013 [facility] [address] [id number] [place] [address]- 4492 18 Mar, 2013 [facility] [address] [id number] [place] [address]- 0197 17 Mar, 2013 [facility] [address] [id number] [place] [address]- 9696 17 Mar, 2013 [facility] [address] [id number] [place] [address]- 1520 05 Mar, 2013 [facility] [address] [id number] [place] [address]- 0249 05 Mar, 2013 [facility] [address] [id number] [place] [address]- 6842 04 Mar, 2013 [facility] [place] [facility] [address] [id number] [place] [address]- 3245 04 Mar, 2013 [facility] [place] [facility] [address] [id number] [place] [address]- 6124 04 Mar, 2013 [facility] [place] [facility] [address] [id number] [place] [address]- 0399 04 Mar, 2013 [facility] [place] [facility] [address] [id number] [place] [address]- 6651 02 Mar, 2013 [facility] [place] [facility] [address] [id number] [place] [address]- 7384 Mar, [facility] [place] [facility] [address] [id number] [place] [address]- 6644 Jan, [facility] [place] [facility] [address] [id number] [place] [address]- 6347 Jan, [facility] [place] [facility] [address] [id number] [place] [address]- 2263 Jan, [facility] [place] [facility] [address] [id number] [place] [address]- 3561 Jan, [facility] [place] [facility] [address] [id number] [place] [address]- 6136 Nov, [facility] [place] [facility] [address] [id number] [place] [address]- 1038 Nov, [facility] [place] [facility] [address] [id number] [place] [address]- 1932 Nov, [facility] [place] [facility] [address] [id number] [place] [address]- 4722 Nov, [facility] [place] [facility] [address] [id number] [place] [address]- 8566 Oct, [facility] [place] [facility] [address] [id number] [place] [address]- 9163 Oct, [facility] [place] [facility] [address] [id number] [place] [address]- 3634 Oct, [facility] [place] [facility] [address] [id number] [place] [address]- 9107 Oct, [facility] [place] [facility] [address] [id number] [place] [address]- 0411 Sep, [facility] [place] [facility] [address] [id number] [place] [address]- 9242 Sep, [facility] [place] [facility] [address] [id number] [place] [address]- 8816 Sep, [facility] [address] [id number] [place] [address]- 8434 Sep, [facility] [place] [facility] [address] [id number] [place] [address]- 5465 Sep, [facility] [place] [facility] [address] [id number] [place] [address]- 7639 Sep, [facility] [place] [facility] [address] [id number] [place] [address] Sep, [facility] [place] [facility] [address] [id number] [place] [address] Sep, [facility] [place] [facility] [address] [id number] [place] [address] Sep, [facility] [place] [facility] [address] [id number] [place] [address] Aug, [facility] [place] [facility] [address] [id number] [place] [address] Aug, [facility] [place] [facility] [address] [id number] [place] [address] Aug, [facility] [place] [facility] [address] [id number] [place] [address] Aug, [facility] [place] [facility] [address] [id number] [place] [address] July, [facility] [place] [facility] [address] [id number] [place] [address] July, [facility] [place] [facility] [address] [id number] [place] [address] July, [facility] [place] [facility] [address] [id number] [place] [address] July, [facility] [place] [facility] [address] [id number] [place] [address] July, [facility] [place] [facility] [address] [id number], [place] [address] July, [facility] [id number], [place] [address] July, [facility] [id number], [place] [address] Jun, [facility] [address] [id number], [place] [address] May, [facility] [id number], [place] [address] May, [facility] [id number], [place] [address] May, [facility] [id number], [place] [address] May, [facility] [id number] [address] May, [facility] [id number], [place] [address] May, [facility] [id number], [place] [address] May, [facility] [address] [id number], [place] [address] May, IMMUNIZATIONS No Known Immunizations SOCIAL HISTORY [...]
--- NOTE | 2017-12-18 20:40 | ED Respiratory ---
General Chief Complaint: Respiratory Problems Stated Complaint: SOA Nursing Triage Note: PT TO ROOM #8 [facility] WITH 20G IV TO LT FOREARM AND CPAP IN PLACE. EMS REPORTS UPON ARRIVAL AUDIBLE WHEEZES HEARD THROUGHOUT LUNGS AND CPAP WAS APPLIED. REPORTS BS 297 AND END TITAL OF 44. UPON ARRIVAL TO ED PT A&OX4, FLUSHED, WITH COARSE/CRACKLES THROUGHOUT LUNGS. PT REPORTS SHE WAS UNABLE TO RECIEVE DIALYSIS TODAY DT FEELING SOA. PT REPORTS SHE SHE HAS BEEN FEELING "HOT AND COLD." RESPIRATORY IN ROOM UPON ARRIVAL AND PLACED PAP 15/8 @ 30% WITH INITIAL 02 SAT 100%. Source: patient Exam Limitations: no limitations History of Present Illness Date Seen by Provider: Dec 18, 2017 Time Seen by Provider: 19:40 Initial Comments Here with increasing shortness of breath. EMS called due to her shortness of breath and not feeling well. Patient is on dialysis and has dialysis on Saturday , Saturday and Saturday. She missed her dialysis today because she was not feeling well and is scheduled to go tomorrow. Noted to have a fever of 100.5. EMS noted significant wheezing and respiratory distress on their arrival and placed her on CPAP immediately. This did help significantly. She continues that now but switched to BiPAP on arrival here. Fever noted. Does have report of feeling hot and cold but no documented fever at home. Denies vomiting or diarrhea. She does not urinate regularly due to end-stage renal disease. Timing/Duration: this afternoon, getting worse Severity: moderate, severe Prior Episodes/Possible Cause: occasional episodes Modifying Factors: Worse With Activity; Improves With Oxygen, Improves With Rest Associated Symptoms: No chest pain/soreness; cough, fever/chills; No nasal congestion; shortness of breath, wheezing Allergies and Home Medications Allergies Coded Allergies: aloe vera (Verified Allergy, Severe, RASH, 11/05/13) flu vaccine [id number](4 yr+) (Verified Allergy, Mild, HIVES, 04/22/12) adhesive (Verified Allergy, Unknown, 05/01/07) Uncoded Allergies: TAPE (Allergy, Mild, 05/16/10) Home Medications Amlodipine Besylate 10 Mg Tablet, 10 MG PO HS, (Reported) Amoxicillin/Potassium Clav 1 Each Tablet, 1 TAB PO Q8H, (Reported) 14 DAY SUPPLY FILLED 07-06-16 Aspirin 81 Mg Tablet.dr, 81 MG PO DAILY, (Reported) Clopidogrel Bisulfate 75 Mg Tablet, 75 MG PO DAILY Prescribed by: СВЕТЛАНА HOWE on 07/24/16 1217 Doxycycline Monohydrate 100 Mg Capsule, 100 MG PO BID, (Reported) 14 DAY SUPPLY FILLED 07-06-16 Fluticasone Propionate 16 Gm [place].susp, 1 SPRAY NA DAILY PRN for ALLERGIES, ( Reported) Furosemide 40 Mg Tablet, 40 MG PO DAILY, (Reported) Gabapentin 300 Mg Capsule, 300 MG PO TID, (Reported) Hydrocodone/Acetaminophen 1 Each Tablet, 1 TAB PO Q6H PRN for PAIN-MODERATE, ( Reported) Hydroxyzine HCl 25 Mg Tablet, 25 MG PO TID PRN for an, (Reported) Insulin Glargine,Hum.rec.anlog 100 Unit/1 Ml Insuln.pen, 30 UNITS SQ HS, ( Reported) Insulin Lispro 100 Unit/1 Ml Insuln.pen, SQ HS, (Reported) 100-200 = 12-16 UNITS ABOVE 300 = 20 UNITS ABOVE 400 = CALL Isosorbide Mononitrate 30 Mg Tab.er.24h, 30 MG PO HS, (Reported) Loratadine 10 Mg Tablet, 10 MG PO HS, (Reported) Metoprolol Tartrate 100 Mg Tablet, 100 MG PO BID, (Reported) Montelukast Sodium 10 Mg Tablet, 10 MG PO HS, (Reported) Naproxen 375 Mg Tablet, 375 MG PO BID PRN for PAIN-MILD, (Reported) Ondansetron 8 Mg Tab.rapdis, 8 MG PO Q8H PRN for NAUSEA/VOMITING-1ST LINE, ( Reported) Rosuvastatin Calcium 20 Mg Tablet, 20 MG PO HS, (Reported) Sevelamer Carbonate 800 Mg Tablet, 3,200 MG PO BID WITH MEALS, (Reported) TAKES 4 (800MG) TABLETS WITH BREAKFAST AND SUPPER AND TAKES 2 (800MG) TABLETS WITH SNACK Sevelamer Carbonate 800 Mg Tablet, 1,600 MG PO DAILY WITH SNACK, (Reported) TAKES 2 (800MG) TABLETS Vit B Cmplx 3/FA/Vit C/Biotin 1 Each Tablet, 1 TAB PO DAILY, (Reported) Patient Home Medication List Home Medication List Reviewed: Yes Review of Systems Review of Systems Constitutional: see HPI, chills, fever EENTM: no symptoms reported Respiratory: see HPI, cough, dyspnea on exertion, short of breath, wheezing Cardiovascular: No chest pain; edema; No palpitations Gastrointestinal: No abdominal pain, No nausea, No vomiting Genitourinary: no symptoms reported, see HPI Musculoskeletal: no symptoms reported All Other Systems Reviewed Negative Unless Noted: Yes Past Ekfacxu-Dhjtat-Bwdkal Hx Past Med/Social Hx: Reviewed Nursing Past Med/Soc Hx Patient Social History Alcohol Use: Denies Use Recreational Drug Use: No Smoking Status: Never a Smoker 2nd Hand Smoke Exposure: Yes Recent Foreign Travel: No Contact w/Someone Who Travel: No Recent Infectious Disease Expo: No Recent Hopitalizations: No Physical Abuse: No Sexual Abuse: No Immunizations Up To Date Tetanus Booster (TDap): Less than 5yrs PED Vaccines UTD: No Date of Pneumonia Vaccine: Sep 02, 2013 Seasonal Allergies Seasonal Allergies: Yes Past Medical History Surgeries: Yes (DIALYSIS AV FISTULA/GRAFT LEFT UPPER ARM, LEFT BKA) Amputation, Arteriovenous Shunt, Cardiac, Section, Dialysis, Hysterectomy, Orthopedic, Tracheostomy, Vascular Surgery Respiratory: Yes (TRACHEOSTOMY IN PAST--PT STATES DUE TO "DIABETIC COMA", O2 AT 4L/NC) Asthma, COPD, Emphysema Currently Using CPAP: No Currently Using BIPAP: No Cardiac: Yes Chronic Edema/Swelling, Coronary Artery Disease, High Cholesterol, Hypertension , Peripheral Vascular Neurological: Yes Headaches /Migraines, Neuropathy 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 Disorders: No Sexually Transmitted Disease: No HIV/AIDS: No Renal Failure, Dialysis Gastrointestinal: Yes Chronic Constipation Musculoskeletal: Yes (BILATERAL CARPAL TUNNEL SYMPTOMS; LEFT BKA, LEFT STUMP FRACTURE) Arthritis, Chronic Back Pain, Fractures Endocrine: Yes (DKA IN PAST ) Diabetes, Insulin dep Loss of Vision: Denies Hearing Impairment: Denies, Hard of Hearing Cancer: No Psychosocial: No Integumentary: Yes (DIABETIC ULCERS) Blood Disorders: No Adverse Reaction/Blood Tranf: No Family Medical History Reviewed Nursing Family Hx Diabetes mellitus Family history: Asthma 09 BROTHER No Family History of: AIDS Abdominal aortic aneurysm [place]'s disease Alcoholism Alzheimer's disease Aphasia Arthritis Asthma Cancer of mouth Cardiovascular disease Cataracts Colon cancer Completed stroke Congenital disease Congenital heart disease Coronary thrombosis Cystic fibrosis Deafness or hearing loss Dementia Drug abuse Dysphasia Fibrocystic disease of breast Gastroenteritis Glaucoma Headache disorder Hypercholesterolemia Hypertension Infertility Kidney disease Myocardial infarction Neoplasm Not obtainable due to adoption Osteoporosis Parkinson's disease Prostate cancer Psychosocial problem Respiratory disorder Seizure disorder Severe allergy Thyroid disease Tuberculosis Visual disorder Physical Exam Vital Signs - First Documented 12/18/17 12/18/17 19:37 19:50 Temp 100.5 Pulse 90 Resp 20 B/P (MAP) 126/66 (86) Pulse Ox 100 O2 Delivery NIV/CPAP O2 Flow Rate 30.00 FiO2 30 Capillary Refill : Less Than 3 Seconds Height: 5'4.00" Weight: 302lbs. 0.0oz. [id number]; 53.4 BMI Method:Stated General Appearance: mild distress HEENT: PERRL/EOMI, pharynx normal Neck: full range of motion, supple Respiratory: accessory muscle use, crackles, wheezing, expiration Cardiovascular: regular rate, rhythm, no murmur Gastrointestinal: non tender, soft Extremities: pedal edema, other (left BKA. Right with moderate swelling and tenderness from the knee to the foot. Recently had surgery on her foot.) Neurologic/Psychiatric: alert, oriented x 3 Skin: normal color, warm/dry Focused Exam Lactate Level 12/18/17 19:40: Lactic Acid Level 1.37 Lactic Acid Level Laboratory Tests Test 12/18/17 19:40 Lactic Acid Level 1.37 MMOL/L (0.50-2.00) Progress/Results/Core Measures Suspected Sepsis Recent Fever Within 48 Hours: Yes Infection Criteria Present: Suspected New Infection New/Unexplained Altered Menta: No Sepsis Screen: No Definite Risk SIRS Temperature:100.5 Pulse: 91 Respiratory Rate: 34 Laboratory Tests 12/18/17 19:40: White Blood Count 7.7 Blood Pressure 126 /66 Mean: 86 12/18/17 19:40: Lactic Acid Level 1.37 Laboratory Tests 12/18/17 19:40: Creatinine 8.70H, INR Comment 1.0, Platelet Count 143, Total Bilirubin 0.5 Results/Orders Lab Results Laboratory Tests Test 12/18/17 19:40 Range/Units White Blood Count 7.7 4.3-11.0 10^3/uL Red Blood Count 2.93 L 4.35-5.85 10^6/uL Hemoglobin 9.9 L 11.5-16.0 G/DL Hematocrit 31 L 35-52 % Mean Corpuscular Volume 105 H 80-99 FL Mean Corpuscular Hemoglobin 34 25-34 PG Mean Corpuscular Hemoglobin Concent 32 32-36 G/DL Red Cell Distribution Width 15.0 H 10.0-14.5 % Platelet Count 143 130-400 10^3/uL Mean Platelet Volume 12.8 H 7.4-10.4 FL Neutrophils (%) (Auto) 75 42-75 % Lymphocytes (%) (Auto) 15 12-44 % Monocytes (%) (Auto) 6 0-12 % Eosinophils (%) (Auto) 3 0-10 % Basophils (%) (Auto) 0 0-10 % Neutrophils # (Auto) 5.8 1.8-7.8 X 10^3 Lymphocytes # (Auto) 1.2 1.0-4.0 X 10^3 Monocytes # (Auto) 0.5 0.0-1.0 X 10^3 Eosinophils # (Auto) 0.3 0.0-0.3 10^3/uL Basophils # (Auto) 0.0 0.0-0.1 10^3/uL Prothrombin Time 13.4 12.2-14.7 SEC INR Comment 1.0 0.8-1.4 Activated Partial Thromboplast Time 31 24-35 SEC Sodium Level 138 135-145 MMOL/L Potassium Level 6.3 H 3.6-5.0 MMOL/L Chloride Level 96 L 98-107 MMOL/L Carbon Dioxide Level 25 21-32 MMOL/L Anion Gap 17 H 5-14 MMOL/L Blood Urea Nitrogen 74 H 7-18 MG/DL Creatinine 8.70 H 0.60-1.30 MG/DL Estimat Glomerular Filtration Rate 5 BUN/Creatinine Ratio 9 Glucose Level 290 H 70-105 MG/DL Lactic Acid Level 1.37 0.50-2.00 MMOL/L Calcium Level 9.0 8.5-10.1 MG/DL Corrected Calcium 9.2 8.5-10.1 MG/DL Total Bilirubin 0.5 0.1-1.0 MG/DL Aspartate Amino Transf (AST/SGOT) 57 H 5-34 U/L Alanine Aminotransferase (ALT/SGPT) 72 H 0-55 U/L Alkaline Phosphatase 114 40-136 U/L B-Type Natriuretic Peptide 139.8 H <100.0 PG/ML Total Protein 7.1 6.4-8.2 GM/DL Albumin 3.8 3.2-4.5 GM/DL My Orders Orders - ARLETTE DURÁN MD Albuterol Pre-Mix Nebs (Rt) (Proventil (9/19/18 19:41) Cbc With Automated Diff (12/18/17 19:50) Comprehensive Metabolic Panel (12/18/17 19:50) Blood Culture (12/18/17 19:50) Sputum Culture (12/18/17 19:50) Urinalysis (12/18/17 19:50) Urine Culture (12/18/17 19:50) Protime With Inr (12/18/17 19:50) Partial Thromboplastin Time (12/18/17 19:50) Chest 1 View, Ap/Pa Only (12/18/17 19:50) Saline Lock/Iv-Start (12/18/17 19:50) Ekg Tracing (12/18/17 19:50) Vital Signs Adult Sepsis Patie Q15M (12/18/17 19:50) O2 (12/18/17 19:50) Remove Rings In Anticipation O (12/18/17 19:50) Lactic Acid Analyzer (12/18/17 19:50) BNP (12/18/17 20:26) Fentanyl Injection (Sublimaze Injection (12/18/17 21:30) Piperacillin Sodium/Tazobactam (Zosyn Vi (12/18/17 22:00) Vancomycin Injection (Vancomycin Injecti (12/18/17 22:15) Medications Given in ED Current Medications Medications Dose Ordered Sig/Lindy Route Start Time Stop Time Status Last Admin Dose Admin Albuterol Sulfate 2.5 mg STK-MED ONCE .ROUTE 12/18/17 19:41 12/18/17 19:46 DC 12/18/17 19:50 2.5 MG Fentanyl Citrate 50 mcg ONCE ONCE IVP 12/18/17 21:30 12/18/17 21:31 DC 12/18/17 21:27 50 MCG Piperacillin Sod/ Tazobactam Sod 4.5 gm/Sodium Chloride 100 ml @ 200 mls/hr ONCE ONCE IV 12/18/17 22:00 12/18/17 22:29 DC 12/18/17 22:15 200 MLS/HR Vancomycin HCl 1000 mg/Sodium Chloride 250 ml @ 250 mls/hr ONCE ONCE IV 12/18/17 22:15 12/18/17 23:14 DC 12/18/17 23:00 250 MLS/HR Vital Signs/I&O 12/18/17 12/18/17 12/18/17 19:37 19:37 19:50 Temp 100.5 Pulse 90 91 Resp 20 34 B/P (MAP) 126/66 (86) Pulse Ox 100 100 98 O2 Delivery NIV/CPAP NIV CPAP O2 Flow Rate 30.00 FiO2 30 Capillary Refill : Less Than 3 Seconds Blood Pressure Mean: 86 Progress Note : Progress Note Seen and evaluated. IV, labs, EKG and chest x-ray, lactic acid and blood cultures ordered. Monitor patient. 2144: Overall improved and stable on BiPAP after albuterol neb. Labs reviewed. Chest x-ray is challenging due to body habitus. Patient did have fever on arrival but does not have significant elevation of white count. There is concerns about both volume overload and the possibility of pneumonia. I did discuss with the patient and family. Given her fever and concerns for pneumonia, we will initiate treatment with Zosyn 4.5 g IV and arrange transfer. Patient usually follows at [facility] in [facility]. 2153: I have initiated transfer process to [place]. Pending call back from hospitalist service. 2201: I did discuss the case with Dr. Beaulieu at [facility] in [place]. Case discussed and reviewed. He says patient for transfer. He agrees with Zosyn. We will initiate vancomycin as well. All findings and concerns discussed with the patient and family who agree with transfer. ECG Initial ECG Impression Date: Dec 18, 2017 Initial ECG Impression Time: 20:30 Initial ECG Rate: 88 Initial ECG Rhythm: Normal Sinus Comment Sinus rhythm with first-degree AV block. No evidence of ST elevation AK. Normal axis. Similar to previous of 03 April 2016. Interpreted by me. Diagnostic Imaging Diagonstic Imaging: Xray Plain Films/CT/US/NM/MRI: chest [facility] [place], [place] NAME: VARGAS FISHER [facility] REC#: [id number] PT STATUS: REG ER : 1965 PHYSICIAN: ARLETTE DURÁN MD ADMIT DATE: 12/18/17/ER Draft Date of Exam:12/18/17 CHEST 1 VIEW, AP/PA ONLY INDICATION: Shortness of air. COMPARISON: 10/01/2015. EXAMINATION: Single view of the chest was obtained. FINDINGS: There is a poor inspiratory volume. This in conjunction with portable AP technique and body habitus limits radiographic sensitivity for evaluating the lungs. Enlargement of the cardiac silhouette is not convincingly changed. There is some mild prominence of the central vascularity but this also is not grossly changed. No giovany alveolar consolidation, effusion or pneumothorax. IMPRESSION: Body habitus limits radiographic sensitivity. Cardiomegaly showed no definite change. Dictated on workstation # [id number] Dict: 12/18/172025 Trans: 12/18/172044 [facility] [id number] Interpreted by: FILIBERTO GAN Electronically signed by: Departure Impression Primary Impression: Pneumonia Qualified Codes: J18.9 - Pneumonia, unspecified organism Additional Impressions: End stage renal disease on dialysis Volume overload Qualified Codes: E87.70 - Fluid overload, unspecified Disposition: 02 XFER SHT-TRM HOSP Condition: Stable Transfer Transfer Time: 21:54 Transfer Facility: [facility], Dr Beaulieu accepting Method of Transfer: EMS Departure-Patient Inst. Referrals: MCKENNA HEBERT (PCP) Primary Care Physician [facility] (Family) Primary Care Physician ARLETTE DURÁN MD Dec 18, 2017 20:40
--- OUTSIDE RECORDS SUMMARY | 2017-12-18 20:44 | XMS REPORT | Continuity of Care Document ---
Author Author [facility] Address Unknown Phone Unavailable Allergies Active Description Code Type Severity Reaction Onset Reported/Identified Relationship to Patient Clinical Status Yes adhesive [id number] Drug Allergy Unknown N/A 05/01/2007 Yes TAPE TAPE Mild N/ A 05/16/2010 Yes flu vaccine [id number](4 yr+) [id number] Drug Allergy Mild HIVES 2012 Yes aspirin Drug Allergy N/A N/A 05/07/2012 Yes aloe vera [id number] Drug Allergy Severe RASH 11/05/2013 Medications There is no data. 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 09/05/2009 Ot 250.00 09/05/2009 Ot 278.01 09/05/2009 Ot 305.1 09/05/2009 Ot 401.9 09/05/2009 Ot 493.90 09/05/2009 Ot 611.0 09/05/2009 Ot V15.81 09/05/2009 Ot V85.4 04/11/2010 Ot 466.0 04/11/2010 Ot 786.2 05/19/2010 Ot 250.00 05/19/2010 Ot 401.9 05/19/2010 Ot 486 05/19/2010 Ot 496 05/19/2010 Ot V15.81 05/19/2010 Ot V58.67 05/19/2010 Ot V58.69 08/25/2010 Ot 462 08/25/2010 Ot 463 08/28/2010 Ot 250.02 08/28/2010 Ot 401.9 08/28/2010 Ot 463 08/28/2010 Ot V58.67 08/28/2010 Ot V58.69 04/09/2011 Ot 692.9 DERMATITIS NOS 04/09/2011 Ot 709.9 SKIN DISORDER NOS 04/22/2011 Ot 719.43 JOINT PAIN- FOREARM 05/02/2012 Ot 250.02 DIAB JESUS WO COMPL, TYPE II OR UNSPEC TY 05/02/2012 Ot 272.4 HYPERLIPIDEMIA NEC/NOS 05/02/2012 Ot 278.00 OBESITY, NOS 05/02/2012 Ot 285.21 ANEMIA IN CHRONIC KIDNEY DISEASE 05/02/2012 Ot 403.90 HYPTNSV CHR KID DIS, UNSPEC, W CHR KD ST 05/02/2012 Ot 427.0 PAROX ATRIAL TACHYCARDIA 05/02/2012 Ot 428.0 CONGESTIVE HEART FAILURE NOS 05/02/2012 Ot 428.42 CHRONIC SYSTOLIC/DIASTOLIC HRT FAILURE 05/02/2012 Ot 491.22 OBSTRUCTIVE CHRONIC BRONCHITIS WITH ACUT 05/02/2012 Ot 493.22 CHRONIC OBSTRUCTIVE ASTHMA, W (ACUTE) EX 05/02/2012 Ot 585.9 CHRONIC KIDNEY DISEASE, UNSPECIFIED 05/02/2012 Ot V03.82 PROPHYLACTIC VACC AGAINST STREPTOCOCCUS 05/02/2012 Ot V15.81 HX OF PAST NONCOMPLIANCE 05/02/2012 Ot V58.67 LONG-TERM ( CURRENT) USE OF INSULIN 05/02/2012 Ot V85.42 BODY MASS INDEX 45.0-49.9, ADULT 05/07/2012 250.00 DIABETES II CONTROLLED (UNCOMPLICATED) 05/07/2012 496 COPD 05/07/2012 MCKENNA HEBERT APRN 250.00 DIABETES II CONTROLLED (UNCOMPLICATED) 05/07/2012 MCKENNA HEBERT APRN 496 COPD 05/07/2012 250.00 DIABETES II CONTROLLED (UNCOMPLICATED) 05/07/2012 496 COPD 05/07/2012 250.00 DIABETES II CONTROLLED (UNCOMPLICATED) 05/07/2012 496 COPD 05/07/2012 250.00 DIABETES II CONTROLLED (UNCOMPLICATED) 05/07/2012 496 COPD 05/07/2012 250.00 DIABETES II CONTROLLED (UNCOMPLICATED) 05/07/2012 496 COPD 05/07/2012 250.00 DIABETES II CONTROLLED (UNCOMPLICATED) 05/07/2012 496 COPD 05/07/2012 250.00 DIABETES II CONTROLLED (UNCOMPLICATED) 05/07/2012 496 COPD 05/07/2012 250.00 DIABETES II CONTROLLED (UNCOMPLICATED) 05/07/2012 496 COPD 05/07/2012 250.00 DIABETES II CONTROLLED (UNCOMPLICATED) 05/07/2012 496 COPD 05/07/2012 250.00 DIABETES II CONTROLLED (UNCOMPLICATED) 05/07/2012 496 COPD 05/07/2012 250.00 DIABETES II CONTROLLED (UNCOMPLICATED) 05/07/2012 496 COPD 05/07/2012 250.00 DIABETES II CONTROLLED (UNCOMPLICATED) 05/07/2012 496 COPD 05/07/2012 MCKENNA HEBERT APRN 250.00 DIABETES II CONTROLLED (UNCOMPLICATED) 05/07/2012 MCKENNA HEBERT APRN 496 COPD 05/07/2012 KYREE RAMSEY, JONNIE N 250.00 DIABETES II CONTROLLED (UNCOMPLICATED) 05/07/2012 JONNIE ADORNO MD 49Rylan COPD 05/07/2012 HURTADO DO, ZAINA K 250.00 DIABETES II CONTROLLED (UNCOMPLICATED) 05/07/2012 HURTADO DO, ZAINA K 496 COPD 05/07/2012 GIACOMO SANDOVAL MD 250.00 DIABETES II CONTROLLED (UNCOMPLICATED) 05/07/2012 GIACOMO SANDOVAL MD COPD 05/07/2012 MILEY FUNES APRN A 250.00 DIABETES II CONTROLLED (UNCOMPLICATED) 05/07/2012 ELLEN FUNES APRNIDI A 496 COPD 05/07/2012 MCKENNA HEBERT APRN 250.00 DIABETES II CONTROLLED (UNCOMPLICATED) 05/07/2012 MCKENNA HEBERT APRN 496 COPD 05/07/2012 MCKENNA HEBERT APRN 250.00 DIABETES II CONTROLLED (UNCOMPLICATED) 05/07/2012 MCKENNA HEBERT APRN 496 COPD 05/07/2012 MCKENNA HEBERT APRN 250.00 DIABETES II CONTROLLED (UNCOMPLICATED) 05/07/2012 MCKENNA HEBERT APRN 496 COPD 05/07/2012 MCKENNA HEBERT APRN 250.00 DIABETES II CONTROLLED (UNCOMPLICATED) 05/07/2012 MCKENNA HEBERT APRN 496 COPD 05/07/2012 GIACOMO SANDOVAL MD 250.00 DIABETES II CONTROLLED (UNCOMPLICATED) 05/07/2012 GIACOMO SANDOVAL MD COPD 05/07/2012 MCKENNA HEBERT APRN 250.00 DIABETES II CONTROLLED (UNCOMPLICATED) 05/07/2012 MCKENNA HEBERT APRN 496 COPD 05/07/2012 GIACOMO SANDOVAL MD 250.00 DIABETES II CONTROLLED (UNCOMPLICATED) 05/07/2012 GIACOMO SANDOVAL MD COPD 05/07/2012 MCKENNA HEBERT APRN 250.00 DIABETES II CONTROLLED (UNCOMPLICATED) 05/07/2012 MCKENNA HEBERT APRN 49Rylan COPD 05/07/2012 GIACOMO SANDOVAL MD 250.00 DIABETES II CONTROLLED (UNCOMPLICATED) 05/07/2012 GIACOMO SANDOVAL MD COPD 05/07/2012 EMILEE LONG, MCKENNA T 250.00 DIABETES II CONTROLLED (UNCOMPLICATED) 05/07/2012 MCKENNA HEBERT APRN T 496 COPD 05/07/2012 EMILEE WEB DEVELOPER, MCKENNA T 250.00 DIABETES II CONTROLLED (UNCOMPLICATED) 05/07/2012 MCKENNA HEBERT APRN T 496 COPD 05/07/2012 EMILEE LONG, MCKENNA T 250.00 DIABETES II CONTROLLED (UNCOMPLICATED) 05/07/2012 MCKENNA HEBERT APRN T 496 COPD 05/07/2012 EMILEE LONG, MCKENNA T 250.00 DIABETES II CONTROLLED (UNCOMPLICATED) 05/07/2012 MCKENNA HEBERT APRN T 496 COPD 05/07/2012 EMILEE LONG, MCKENNA T 250.00 DIABETES II CONTROLLED (UNCOMPLICATED) 05/07/2012 EMILEE LONG MCKENNA T 496 COPD 05/07/2012 GIACOMO SANDOVAL MD 250.00 DIABETES II CONTROLLED (UNCOMPLICATED) 05/07/2012 GIACOMO SANDOVAL MD COPD 05/07/2012 EMILEE LONG MCKENNA T 250.00 DIABETES II CONTROLLED (UNCOMPLICATED) 05/07/2012 MCKENNA HEBERT APRN T 496 COPD 05/07/2012 EMILEE LONG, MCKENNA T 250.00 DIABETES II CONTROLLED (UNCOMPLICATED) 05/07/2012 MCKENNA HEBERT APRN T 496 COPD 05/07/2012 EMILEE LONG, MCKENNA T 250.00 DIABETES II CONTROLLED (UNCOMPLICATED) 05/07/2012 MCKENNA HEBERT APRN T 496 COPD 05/07/2012 EMILEE LONG MCKENNA T 250.00 DIABETES II CONTROLLED (UNCOMPLICATED) 05/07/2012 MCKENNA HEBERT APRN T 496 COPD 05/07/2012 EMILEE LONG, MCKENNA T 250.00 DIABETES II CONTROLLED (UNCOMPLICATED) 05/07/2012 MCKENNA HEBERT APRN T 496 COPD 05/07/2012 EMILEE LONG, MCKENNA T 250.00 DIABETES II CONTROLLED (UNCOMPLICATED) 05/07/2012 MCKENNA HEBERT APRN T 496 COPD 05/07/2012 EMILEE LONG, MCKENNA T 250.00 DIABETES II CONTROLLED (UNCOMPLICATED) 05/07/2012 MCKENNA HEBERT APRN T 496 COPD 05/07/2012 EMILEE LONG MCKENNA T 250.00 DIABETES II CONTROLLED (UNCOMPLICATED) 05/07/2012 MCKENNA HEBERT APRN T 496 COPD 05/20/2012 EMILEE MCGUIREN, MCKENNA T 782.3 EDEMA 05/20/2012 782.3 EDEMA 05/20/2012 782.3 EDEMA 05/20/2012 782.3 EDEMA 05/20/2012 782.3 EDEMA 05/20/2012 782.3 EDEMA 05/20/2012 782.3 EDEMA 05/20/2012 782.3 EDEMA 05/20/2012 782.3 EDEMA 05/20/2012 782.3 EDEMA 05/20/2012 782.3 EDEMA 05/20/2012 782.3 EDEMA 05/20/2012 EMILEE LONG, MCKENNA T 782.3 EDEMA 05/20/2012 KYREE RAMSEY, JONNIE Parsons 782.3 EDEMA 05/20/2012 ZAINA HURTADO DO 782.3 EDEMA 05/20/2012 GIACOMO SANDOVAL MD 782.3 EDEMA 05/20/2012 MARIN LONG, MILEY A 782.3 EDEMA 05/20/2012 EMILEE LONG, MCKENNA T 782.3 EDEMA 05/20/2012 EIMLEE LONG, MCKENNA T 782.3 EDEMA 05/20/2012 EMILEE LONG, MCKENNA T 782.3 EDEMA 05/20/2012 EMILEE LONG, MCKENNA T 782.3 EDEMA 05/20/2012 GIACOMO SANDOVAL MD 782.3 EDEMA 05/20/2012 EMILEE LONG, MCKENNA T 782.3 EDEMA 05/20/2012 GIACOMO SANDOVAL MD 782.3 EDEMA 05/20/2012 EMILEE LONG, MCKENNA T 782.3 EDEMA 05/20/2012 GIACOMO SANDOVAL MD 782.3 EDEMA 05/20/2012 EMILEE LONG, MCKENNA T 782.3 EDEMA 05/20/2012 EMILEE LONG, MCKENNA T 782.3 EDEMA 05/20/2012 EMILEE WEB DEVELOPER, MCKENNA T 782.3 EDEMA 05/20/2012 EMILEE LONG, MCKENNA T 782.3 EDEMA 05/20/2012 EMILEE LONG, MCKENNA T 782.3 EDEMA 05/20/2012 GIACOMO SANDOVAL MD 782.3 EDEMA 05/20/2012 EMILEE LONG, MCKENNA T 782.3 EDEMA 05/20/2012 EMILEE LONG, MCKENNA T 782.3 EDEMA 05/20/2012 EMILEE LONG, MCKENNA T 782.3 EDEMA 05/20/2012 MCKENNA HEBERT APRN 782.3 EDEMA 05/20/2012 MCKENNA HEBERT APRN 782.3 EDEMA 05/20/2012 MCKENNA HEBERT APRN 782.3 EDEMA 05/20/2012 MCKENNA HEBERT APRN 782.3 EDEMA 05/20/2012 MCKENNA HEBERT APRN 782.3 EDEMA 06/14/2012 Ot 250.60 DIAB W NEURO MANIFEST, TYPE II OR UNSPEC 06/14/2012 Ot 272.4 HYPERLIPIDEMIA NEC/NOS 06/14/2012 Ot 357.2 NEUROPATHY IN DIABETES 06/14/2012 Ot 403.90 HYPTNSV CHR KID DIS, UNSPEC, W CHR KD ST 06/14/2012 Ot 414.8 CHR ISCHEMIC HRT DIS NEC 06/14/2012 Ot 428.0 CONGESTIVE HEART FAILURE NOS 06/14/2012 Ot 493.92 ASTHMA, UNSPECIFIED, W (ACUTE) EXACERBAT 06/14/2012 Ot 585.9 CHRONIC KIDNEY DISEASE, UNSPECIFIED 06/20/2012 586 RENAL FAILURE UNSPECIFIED 06/20/2012 586 RENAL FAILURE UNSPECIFIED 06/20/2012 586 RENAL FAILURE UNSPECIFIED 06/20/2012 586 RENAL FAILURE UNSPECIFIED 06/20/2012 586 RENAL FAILURE UNSPECIFIED 06/20/2012 586 RENAL FAILURE UNSPECIFIED 06/20/2012 586 RENAL FAILURE UNSPECIFIED 06/20/2012 586 RENAL FAILURE UNSPECIFIED 06/20/2012 586 RENAL FAILURE UNSPECIFIED 06/20/2012 586 RENAL FAILURE UNSPECIFIED 06/20/2012 MCKENNA HEBERT APRN 586 RENAL FAILURE UNSPECIFIED 06/20/2012 JONNIE ADORNO MD 586 RENAL FAILURE UNSPECIFIED 06/20/2012 ZAINA HURTADO DO 586 RENAL FAILURE UNSPECIFIED 06/20/2012 GIACOMO SANDOVAL MD 586 RENAL FAILURE UNSPECIFIED 06/20/2012 MILEY FUNES APRN 586 RENAL FAILURE UNSPECIFIED 06/20/2012 MCKENNA HEBERT APRN 586 RENAL FAILURE UNSPECIFIED 06/20/2012 MCKENNA HEBERT APRN 586 RENAL FAILURE UNSPECIFIED 06/20/2012 MCKENNA HEBERT APRN 586 RENAL FAILURE UNSPECIFIED 06/20/2012 MCKENNA HEBERT APRN 586 RENAL FAILURE UNSPECIFIED 06/20/2012 GIACOMO SANDOVAL MD 586 RENAL FAILURE UNSPECIFIED 06/20/2012 EMILEE WEB DEVELOPER, MCKENNA T 586 RENAL FAILURE UNSPECIFIED 06/20/2012 GIACOMO SANDOVAL MD 586 RENAL FAILURE UNSPECIFIED 06/20/2012 MCKENNA HEBERT APRN T 586 RENAL FAILURE UNSPECIFIED 06/20/2012 GIACOMO SANDOVAL MD 586 RENAL FAILURE UNSPECIFIED 06/20/2012 EMILEE WEB DEVELOPER, MCKENNA T 586 RENAL FAILURE UNSPECIFIED 06/20/2012 EMILEE WEB DEVELOPER, MCKENNA T 586 RENAL FAILURE UNSPECIFIED 06/20/2012 EMILEE WEB DEVELOPER, MCKENNA T 586 RENAL FAILURE UNSPECIFIED 06/20/2012 EMILEE WEB DEVELOPER, MCKENNA T 586 RENAL FAILURE UNSPECIFIED 06/20/2012 MCKENNA HEBERT APRN T 586 RENAL FAILURE UNSPECIFIED 06/20/2012 GIACOMO SANDOVAL MD 586 RENAL FAILURE UNSPECIFIED 06/20/2012 EMILEE WEB DEVELOPER, MCKENNA T 586 RENAL FAILURE UNSPECIFIED 06/20/2012 EMILEE WEB DEVELOPER, MCKENNA T 586 RENAL FAILURE UNSPECIFIED 06/20/2012 EMILEE WEB DEVELOPER MCKENNA T 586 RENAL FAILURE UNSPECIFIED 06/20/2012 EMILEE WEB DEVELOPERMCKENNA T 586 RENAL FAILURE UNSPECIFIED 06/20/2012 EMILEE WEB DEVELOPER MCKENNA T 586 RENAL FAILURE UNSPECIFIED 06/20/2012 EMILEE WEB DEVELOPER MCKENNA T 586 RENAL FAILURE UNSPECIFIED 06/20/2012 EMILEE WEB DEVELOPER, MCKENNA T 586 RENAL FAILURE UNSPECIFIED 06/20/2012 MCKENNA HEBERT APRN T 586 RENAL FAILURE UNSPECIFIED 09/03/2012 272.4 DYSLIPIDEMIA 09/03/2012 401.9 HYPERTENSION, UNSPECIFIED ESSENTIAL 09/03/2012 428.0 CONGESTIVE HEART FAILURE UNSPECIFIED 09/03/2012 272.4 DYSLIPIDEMIA 09/03/2012 401.9 HYPERTENSION, UNSPECIFIED ESSENTIAL 09/03/2012 428.0 CONGESTIVE HEART FAILURE UNSPECIFIED 09/03/2012 272.4 DYSLIPIDEMIA 09/03/2012 401.9 HYPERTENSION, UNSPECIFIED ESSENTIAL 09/03/2012 428.0 CONGESTIVE HEART FAILURE UNSPECIFIED 09/03/2012 272.4 DYSLIPIDEMIA 09/03/2012 401.9 HYPERTENSION, UNSPECIFIED ESSENTIAL 09/03/2012 428.0 CONGESTIVE HEART FAILURE UNSPECIFIED 09/03/2012 272.4 DYSLIPIDEMIA 09/03/2012 401.9 HYPERTENSION, UNSPECIFIED ESSENTIAL 09/03/2012 428.0 CONGESTIVE HEART FAILURE UNSPECIFIED 09/03/2012 272.4 DYSLIPIDEMIA 09/03/2012 401.9 HYPERTENSION, UNSPECIFIED ESSENTIAL 09/03/2012 428.0 CONGESTIVE HEART FAILURE UNSPECIFIED 09/03/2012 MCKENNA HEBERT APRN T 272.4 DYSLIPIDEMIA 09/03/2012 MCKENNA HEBERT APRN T 401.9 HYPERTENSION, UNSPECIFIED ESSENTIAL 09/03/2012 EMILEE LONG, MCKENNA T 428.0 CONGESTIVE HEART FAILURE UNSPECIFIED 09/03/2012 JONNIE ADORNO MD N 272.4 DYSLIPIDEMIA 09/03/2012 JONNIE ADORNO MD N 401.9 HYPERTENSION, UNSPECIFIED ESSENTIAL 09/03/2012 JONNIE ADORNO MD N 428.0 CONGESTIVE HEART FAILURE UNSPECIFIED 09/03/2012 HURTADO DO, ZAINA K 272.4 DYSLIPIDEMIA 09/03/2012 HURTADO DO, ZAINA K 401.9 HYPERTENSION, UNSPECIFIED ESSENTIAL 09/03/2012 HURTADO DO, ZAINA K 428.0 CONGESTIVE HEART FAILURE UNSPECIFIED 09/03/2012 GIACOMO SANDOVAL MD 272.4 DYSLIPIDEMIA 09/03/2012 GIACOMO SANDOVAL MD 401.9 HYPERTENSION, UNSPECIFIED ESSENTIAL 09/03/2012 GIACOMO SANDOVAL MD 428.0 CONGESTIVE HEART FAILURE UNSPECIFIED 09/03/2012 MARIN LONG, MILEY A 272.4 DYSLIPIDEMIA 09/03/2012 MARIN LONG, MILEY A 401.9 HYPERTENSION, UNSPECIFIED ESSENTIAL 09/03/2012 ELLEN FUNES APRNIDI A 428.0 CONGESTIVE HEART FAILURE UNSPECIFIED 09/03/2012 MCKENNA HEBERT APRN T 272.4 DYSLIPIDEMIA 09/03/2012 MCKENNA HEBERT APRN T 401.9 HYPERTENSION, UNSPECIFIED ESSENTIAL 09/03/2012 MCKENNA HEBERT APRN T 428.0 CONGESTIVE HEART FAILURE UNSPECIFIED 09/03/2012 MCKENNA HEBERT APRN T 272.4 DYSLIPIDEMIA 09/03/2012 MCKENNA HEBERT APRN T 401.9 HYPERTENSION, UNSPECIFIED ESSENTIAL 09/03/2012 MCKENNA HEBERT APRN T 428.0 CONGESTIVE HEART FAILURE UNSPECIFIED 09/03/2012 MCKENNA HEBERT APRN T 272.4 DYSLIPIDEMIA 09/03/2012 MCKENNA HEBERT APRN T 401.9 HYPERTENSION, UNSPECIFIED ESSENTIAL 09/03/2012 EMILEE LONG MCKENNA T 428.0 CONGESTIVE HEART FAILURE UNSPECIFIED 09/03/2012 MCKENNA HEBERT APRN T 272.4 DYSLIPIDEMIA 09/03/2012 MCKENNA HEBERT APRN T 401.9 HYPERTENSION, UNSPECIFIED ESSENTIAL 09/03/2012 MCKENNA HEBERT APRN T 428.0 CONGESTIVE HEART FAILURE UNSPECIFIED 09/03/2012 GIACOMO SANDOVAL MD 272.4 DYSLIPIDEMIA 09/03/2012 GIACOMO SANDOVAL MD 401.9 HYPERTENSION, UNSPECIFIED ESSENTIAL 09/03/2012 GIACOMO SANDOVAL MD 428.0 CONGESTIVE HEART FAILURE UNSPECIFIED 09/03/2012 EMILEE LONG, MCKENNA T 272.4 DYSLIPIDEMIA 09/03/2012 EMILEE LONG MCKENNA T 401.9 HYPERTENSION, UNSPECIFIED ESSENTIAL 09/03/2012 EMILEE LONG MCKENNA T 428.0 CONGESTIVE HEART FAILURE UNSPECIFIED 09/03/2012 GIACOMO SANDOVAL MD 272.4 DYSLIPIDEMIA 09/03/2012 GIACOMO SANDOVAL MD 401.9 HYPERTENSION, UNSPECIFIED ESSENTIAL 09/03/2012 GIACOMO SANDOVAL MD 428.0 CONGESTIVE HEART FAILURE UNSPECIFIED 09/03/2012 EMILEE LONG MCKENNA T 272.4 DYSLIPIDEMIA 09/03/2012 EMILEE LONG MCKENNA T 401.9 HYPERTENSION, UNSPECIFIED ESSENTIAL 09/03/2012 EMILEE LONG MCKENNA T 428.0 CONGESTIVE HEART FAILURE UNSPECIFIED 09/03/2012 GIACOMO SANDOVAL MD 272.4 DYSLIPIDEMIA 09/03/2012 GIACOMO SANDOVAL MD 401.9 HYPERTENSION, UNSPECIFIED ESSENTIAL 09/03/2012 GIACOMO SANDOVAL MD 428.0 CONGESTIVE HEART FAILURE UNSPECIFIED 09/03/2012 EMILEE LONG MCKENNA T 272.4 DYSLIPIDEMIA 09/03/2012 EMILEE LONG, MCKENNA T 401.9 HYPERTENSION, UNSPECIFIED ESSENTIAL 09/03/2012 EMILEE LONG, MCKENNA T 428.0 CONGESTIVE HEART FAILURE UNSPECIFIED 09/03/2012 EMILEE LONG, MCKENNA T 272.4 DYSLIPIDEMIA 09/03/2012 EMILEE LONG MCKENNA T 401.9 HYPERTENSION, UNSPECIFIED ESSENTIAL 09/03/2012 EMILEE LONG, MCKENNA T 428.0 CONGESTIVE HEART FAILURE UNSPECIFIED 09/03/2012 EMILEE WEB DEVELOPER, MCKENNA T 272.4 DYSLIPIDEMIA 09/03/2012 EMILEE WEB DEVELOPER, MCKENNA T 401.9 HYPERTENSION, UNSPECIFIED ESSENTIAL 09/03/2012 EMILEE LONG, MCKENNA T 428.0 CONGESTIVE HEART FAILURE UNSPECIFIED 09/03/2012 EMILEE MCGUIREN, MCKENNA T 272.4 DYSLIPIDEMIA 09/03/2012 EMILEE LONG, MCKENNA T 401.9 HYPERTENSION, UNSPECIFIED ESSENTIAL 09/03/2012 EMILEE LONG, MCKENNA T 428.0 CONGESTIVE HEART FAILURE UNSPECIFIED 09/03/2012 EMILEE LONG MCKENNA T 272.4 DYSLIPIDEMIA 09/03/2012 EMILEE WEB DEVELOPER, MCKENNA T 401.9 HYPERTENSION, UNSPECIFIED ESSENTIAL 09/03/2012 EMILEE WEB DEVELOPER, MCKENNA T 428.0 CONGESTIVE HEART FAILURE UNSPECIFIED 09/03/2012 GIACOMO SANDOVAL MD 272.4 DYSLIPIDEMIA 09/03/2012 GIACOMO SANDOVAL MD 401.9 HYPERTENSION, UNSPECIFIED ESSENTIAL 09/03/2012 GIACOMO SANDOVAL MD 428.0 CONGESTIVE HEART FAILURE UNSPECIFIED 09/03/2012 EMILEE WEB DEVELOPER, MCKENNA T 272.4 DYSLIPIDEMIA 09/03/2012 EMILEE WEB DEVELOPER, MCKENNA T 401.9 HYPERTENSION, UNSPECIFIED ESSENTIAL 09/03/2012 EMILEE WEB DEVELOPER, MCKENNA T 428.0 CONGESTIVE HEART FAILURE UNSPECIFIED 09/03/2012 EMILEE WEB DEVELOPER, MCKENNA T 272.4 DYSLIPIDEMIA 09/03/2012 EMILEE WEB DEVELOPER, MCKENNA T 401.9 HYPERTENSION, UNSPECIFIED ESSENTIAL 09/03/2012 EMILEE WEB DEVELOPER, MCKENNA T 428.0 CONGESTIVE HEART FAILURE UNSPECIFIED 09/03/2012 EMILEE WEB DEVELOPER, MCKENNA T 272.4 DYSLIPIDEMIA 09/03/2012 EMILEE WEB DEVELOPER, MCKENNA T 401.9 HYPERTENSION, UNSPECIFIED ESSENTIAL 09/03/2012 EMILEE WEB DEVELOPER, MCKENNA T 428.0 CONGESTIVE HEART FAILURE UNSPECIFIED 09/03/2012 EMILEE WEB DEVELOPER, MCKENNA T 272.4 DYSLIPIDEMIA 09/03/2012 EMILEE WEB DEVELOPER, MCKENNA T 401.9 HYPERTENSION, UNSPECIFIED ESSENTIAL 09/03/2012 EMILEE WEB DEVELOPER, MCKENNA T 428.0 CONGESTIVE HEART FAILURE UNSPECIFIED 09/03/2012 EMILEE WEB DEVELOPER, MCKENNA T 272.4 DYSLIPIDEMIA 09/03/2012 EMILEE WEB DEVELOPER, MCKENNA T 401.9 HYPERTENSION, UNSPECIFIED ESSENTIAL 09/03/2012 EMILEE WEB DEVELOPER, MCKENNA T 428.0 CONGESTIVE HEART FAILURE UNSPECIFIED 09/03/2012 EMILEE WEB DEVELOPER, MCKENNA T 272.4 DYSLIPIDEMIA 09/03/2012 EMILEE WEB DEVELOPER, MCKENNA T 401.9 HYPERTENSION, UNSPECIFIED ESSENTIAL 09/03/2012 EMILEE WEB DEVELOPER, MCKENNA T 428.0 CONGESTIVE HEART FAILURE UNSPECIFIED 09/03/2012 EMLIEE WEB DEVELOPER, MCKENNA T 272.4 DYSLIPIDEMIA 09/03/2012 EMILEE WEB DEVELOPER, MCKENNA T 401.9 HYPERTENSION, UNSPECIFIED ESSENTIAL 09/03/2012 EMILEE WEB DEVELOPER, MCKENNA T 428.0 CONGESTIVE HEART FAILURE UNSPECIFIED 09/03/2012 EMILEE WEB DEVELOPER, MKCENNA T 272.4 DYSLIPIDEMIA 09/03/2012 EMILEE WEB DEVELOPER, MCKENNA T 401.9 HYPERTENSION, UNSPECIFIED ESSENTIAL 09/03/2012 EMILEE WEB DEVELOPER, MCKENNA T 428.0 CONGESTIVE HEART FAILURE UNSPECIFIED 10/15/2012 425.4 CARDIOMYOPHATHY 10/15/2012 786.09 DYSPNEA 10/15/2012 425.4 CARDIOMYOPHATHY 10/15/2012 786.09 DYSPNEA 10/15/2012 EMILEE LONG, MCKENNA T 425.4 CARDIOMYOPHATHY 10/15/2012 EMILEE LONG, MCKENNA T 786.09 DYSPNEA 10/15/2012 JONNIE ADORNO MD 425.4 CARDIOMYOPHATHY 10/15/2012 JONNIE ADORNO MD N 786.09 DYSPNEA 10/15/2012 HURTADO DO, ZAINA K 425.4 CARDIOMYOPHATHY 10/15/2012 HURTADO DO, ZAINA K 786.09 DYSPNEA 10/15/2012 GIACOMO SANDOVAL MD 425.4 CARDIOMYOPHATHY 10/15/2012 GIACOMO SANDOVAL MD 786.09 DYSPNEA 10/15/2012 MARIN LONG, MILEY A 425.4 CARDIOMYOPHATHY 10/15/2012 MARIN LONG, MILEY A 786.09 DYSPNEA 10/15/2012 MCKENNA HEBERT APRN T 425.4 CARDIOMYOPHATHY 10/15/2012 EMILEE LONG MCKENNA T 786.09 DYSPNEA 10/15/2012 EMILEE LONG, MCKENNA T 425.4 CARDIOMYOPHATHY 10/15/2012 EMILEE LONG, MCKENNA T 786.09 DYSPNEA 10/15/2012 EMILEE LONG, MCKENNA T 425.4 CARDIOMYOPHATHY 10/15/2012 EMILEE LONG, MCKENNA T 786.09 DYSPNEA 10/15/2012 EMILEE LONG, MCKENNA T 425.4 CARDIOMYOPHATHY 10/15/2012 EMILEE LONG, MCKENNA T 786.09 DYSPNEA 10/15/2012 GIACOMO SANDOVAL MD 425.4 CARDIOMYOPHATHY 10/15/2012 GIACOMO SANDOVAL MD 786.09 DYSPNEA 10/15/2012 EMILEE LONG, MCKENNA T 425.4 CARDIOMYOPHATHY 10/15/2012 EMILEE LONG, MCKENNA T 786.09 DYSPNEA 10/15/2012 GIACOMO SANDOVAL MD 425.4 CARDIOMYOPHATHY 10/15/2012 GIACOMO SANDOVAL MD 786.09 DYSPNEA 10/15/2012 EMILEE LONG, MCKENNA T 425.4 CARDIOMYOPHATHY 10/15/2012 EMILEE LONG, MCKENNA T 786.09 DYSPNEA 10/15/2012 GIACOMO SANDOVAL MD 425.4 CARDIOMYOPHATHY 10/15/2012 GIACOMO SANDOVAL MD 786.09 DYSPNEA 10/15/2012 EMILEE WEB DEVELOPER, MCKENNA T 425.4 CARDIOMYOPHATHY 10/15/2012 EMILEE WEB DEVELOPER, MCKENNA T 786.09 DYSPNEA 10/15/2012 EMILEE WEB DEVELOPER, MCKENNA T 425.4 CARDIOMYOPHATHY 10/15/2012 EMILEE WEB DEVELOPER, MCKENNA T 786.09 DYSPNEA 10/15/2012 EMILEE WEB DEVELOPER, MCKENNA T 425.4 CARDIOMYOPHATHY 10/15/2012 EMILEE WEB DEVELOPER, MCKENNA T 786.09 DYSPNEA 10/15/2012 EMILEE WEB DEVELOPER, MCKENNA T 425.4 CARDIOMYOPHATHY 10/15/2012 EMILEE WEB DEVELOPER, MCKENNA T 786.09 DYSPNEA 10/15/2012 EMILEE LONG, MCKENNA T 425.4 CARDIOMYOPHATHY 10/15/2012 EMILEE LONG, MCKENNA T 786.09 DYSPNEA 10/15/2012 GIACOMO SANDOVAL MD 425.4 CARDIOMYOPHATHY 10/15/2012 GIACOMO SANDOVAL MD 786.09 DYSPNEA 10/15/2012 EMILEE LONG, MCKENNA T 425.4 CARDIOMYOPHATHY 10/15/2012 EMILEE LONG, MCKENNA T 786.09 DYSPNEA 10/15/2012 EMILEE MCGUIREN, MCKENNA T 425.4 CARDIOMYOPHATHY 10/15/2012 EMILEE MCGUIREN, MCKENNA T 786.09 DYSPNEA 10/15/2012 EMILEE WEB DEVELOPER, MCKENNA T 425.4 CARDIOMYOPHATHY 10/15/2012 EMILEE MCGUIREN, MCKENNA T 786.09 DYSPNEA 10/15/2012 EMILEE WEB DEVELOPER, MCKENNA T 425.4 CARDIOMYOPHATHY 10/15/2012 EMILEE LONG, MCKENNA T 786.09 DYSPNEA 10/15/2012 EMILEE WEB DEVELOPER, MCKENNA T 425.4 CARDIOMYOPHATHY 10/15/2012 EMILEE LONG, MCKENNA T 786.09 DYSPNEA 10/15/2012 EMILEE WEB DEVELOPER, MCKENNA T 425.4 CARDIOMYOPHATHY 10/15/2012 EMILEE WEB DEVELOPER, MCKENNA T 786.09 DYSPNEA 10/15/2012 EMILEE WEB DEVELOPER, MCKENNA T 425.4 CARDIOMYOPHATHY 10/15/2012 EMILEE MCGUIREN, MCKENNA T 786.09 DYSPNEA 10/15/2012 EMILEE MCGUIREN, MCKENNA T 425.4 CARDIOMYOPHATHY 10/15/2012 EMILEE LONG, MCKENNA T 786.09 DYSPNEA 11/19/2012 LORI RAMSEY, GIACOMO Del Rosario Ot 250.00 DIAB JESUS WO COMPL, TYPE II OR UNSPEC TY 11/19/2012 GIACOMO SANDOVAL MD Ot 272.4 HYPERLIPIDEMIA NEC/NOS 11/19/2012 GIACOMO SANDOVAL MD Ot 276.2 ACIDOSIS 11/19/2012 GIACOMO SANDOVAL MD Ot 276.7 HYPERPOTASSEMIA 11/19/2012 GIACOMO SANDOVAL MD Ot 285.21 ANEMIA IN CHRONIC KIDNEY DISEASE 11/19/2012 GIACOMO SANDOVAL MD Ot 346.90 MIGRAINE UNSPECIFIED W/O INTRACT MGRN W/ 11/19/2012 GIACOMO SANDOVAL MD Ot 403.90 HYPTNSV CHR KID DIS, UNSPEC, W CHR KD ST 11/19/2012 GIACOMO SANDOVAL MD Ot 428.0 CONGESTIVE HEART FAILURE NOS 11/19/2012 GIACOMO SANDOVAL MD Ot 428.32 CHRONIC DIASTOLIC HRT FAILURE 11/19/2012 GIACOMO SANDOVAL MD Ot 493.92 ASTHMA, UNSPECIFIED, W (ACUTE) EXACERBAT 11/19/2012 GIACOMO SANDOVAL MD Ot 585.9 CHRONIC KIDNEY DISEASE, UNSPECIFIED 11/19/2012 GIACOMO SANDOVAL MD Ot V58.67 LONG-TERM (CURRENT) USE OF INSULIN 12/29/2012 CRYSTAL MATTA APRN Ot 250.80 DIAB W OTH SPEC MANIFEST, TYPE II OR UNS 03/04/2013 MILEY FUNES APRN 112.3 CANDIDIASIS OF SKIN AND NAILS 03/04/2013 MILEY FUNES APRN V76.10 BREAST CANCER SCREENING 03/04/2013 MCKENNA HEBERT APRN 112.3 CANDIDIASIS OF SKIN AND NAILS 03/04/2013 MCKENNA HEBERT APRN V76.10 BREAST CANCER SCREENING 03/04/2013 MCKENNA HEBERT APRN 112.3 CANDIDIASIS OF SKIN AND NAILS 03/04/2013 MCKENNA HEBERT APRN V76.10 BREAST CANCER SCREENING 03/04/2013 MCKENNA HEBERT APRN 112.3 CANDIDIASIS OF SKIN AND NAILS 03/04/2013 MCKENNA HEBERT APRN V76.10 BREAST CANCER SCREENING 03/04/2013 MCKENNA HEBERT APRN 112.3 CANDIDIASIS OF SKIN AND NAILS 03/04/2013 MCKENNA HEBERT APRN V76.10 BREAST CANCER SCREENING 03/04/2013 GIACOMO SANDOVAL MD 112.3 CANDIDIASIS OF SKIN AND NAILS 03/04/2013 GIACOMO SANDOVAL MD V76.10 BREAST CANCER SCREENING 03/04/2013 MCKENNA HEBERT APRN 112.3 CANDIDIASIS OF SKIN AND NAILS 03/04/2013 MCKENNA HEBERT APRN V76.10 BREAST CANCER SCREENING 03/04/2013 GIACOMO SANDOVAL MD 112.3 CANDIDIASIS OF SKIN AND NAILS 03/04/2013 GIACOMO SANDOVAL MD V76.10 BREAST CANCER SCREENING 03/04/2013 MCKENNA HEBERT APRN 112.3 CANDIDIASIS OF SKIN AND NAILS 03/04/2013 MCKENNA HEBERT APRN V76.10 BREAST CANCER SCREENING 03/04/2013 GIACOMO SANDOVAL MD 112.3 CANDIDIASIS OF SKIN AND NAILS 03/04/2013 GIACOMO SANDOVAL MD V76.10 BREAST CANCER SCREENING 03/04/2013 MCKENNA HEBERT APRN 112.3 CANDIDIASIS OF SKIN AND NAILS 03/04/2013 MCKENNA HEBERT APRN V76.10 BREAST CANCER SCREENING 03/04/2013 MCKENNA HEBERT APRN 112.3 CANDIDIASIS OF SKIN AND NAILS 03/04/2013 MCKENNA HEBERT APRN V76.10 BREAST CANCER SCREENING 03/04/2013 MCKENNA HEBERT APRN T 112.3 CANDIDIASIS OF SKIN AND NAILS 03/04/2013 MCKENNA HEBERT APRN V76.10 BREAST CANCER SCREENING 03/04/2013 MCKENNA HEBERT APRN T 112.3 CANDIDIASIS OF SKIN AND NAILS 03/04/2013 MCKENNA HEBERT APRN V76.10 BREAST CANCER SCREENING 03/04/2013 MCKENNA HEBERT APRN T 112.3 CANDIDIASIS OF SKIN AND NAILS 03/04/2013 MCKENNA HEBERT APRN V76.10 BREAST CANCER SCREENING 03/04/2013 GIACOMO SANDOVAL MD 112.3 CANDIDIASIS OF SKIN AND NAILS 03/04/2013 GIACOMO SANDOVAL MD V76.10 BREAST CANCER SCREENING 03/04/2013 MCKENNA HEBERT APRN 112.3 CANDIDIASIS OF SKIN AND NAILS 03/04/2013 MCKENNA HEBERT APRN V76.10 BREAST CANCER SCREENING 03/04/2013 MCKENNA HEBERT APRN T 112.3 CANDIDIASIS OF SKIN AND NAILS 03/04/2013 MCKENNA HEBERT APRN V76.10 BREAST CANCER SCREENING 03/04/2013 MCKENNA HEBERT APRN T 112.3 CANDIDIASIS OF SKIN AND NAILS 03/04/2013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 11/08/2014 Ot 250.00 11/08/2014 Ot 272.4 11/08/2014 Ot 401.9 11/08/2014 Ot V58.69 11/09/2014 ARLETTE DURÁN MD Ot 276.69 OTHER FLUID OVERLOAD 11/09/2014 ARLETTE DURÁN MD Ot 518.81 ACUTE RESPIRATORY FAILURE 11/09/2014 ARLETTE DURÁN MD Ot 585.6 END STAGE RENAL DISEASE 11/09/2014 ARLETTE DURÁN MD Ot 786.05 SHORTNESS OF BREATH 01/14/2015 ARLETTE DURÁN MD, Ot E13.22 OTH DIABETES MELLITUS WITH DIABETIC MANAGER ENVIRONMENTAL 01/14/2015 ARLETTE DURÁN MD Ot I12.0 HYP CHR KIDNEY DISEASE W STAGE 5 CHR KID 01/14/2015 ARLETTE DURÁN MD Ot N18.6 END STAGE RENAL DISEASE 01/14/2015 ARLETTE DURÁN MD Ot R07.9 CHEST PAIN, UNSPECIFIED 01/14/2015 ARLETTE DURÁN MD Ot Z79.4 JAIL (CURRENT) USE OF INSULIN 01/14/2015 ARLETTE DURÁN MD Ot Z99.2 DEPENDENCE ON RENAL DIALYSIS 01/15/2015 ZAINA HURTADO DO Ot D63.8 ANEMIA IN OTHER CHRONIC DISEASES CLASSIF 01/15/2015 ZAINA HURTADO DO Ot 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 MELLITUS W DIABETIC MANAGER ENVIRONMENTAL 01/15/2015 ZAINA HURTADO DO Ot E11.65 TYPE 2 DIABETES MELLITUS WITH HYPERGLYCE 01/15/2015 ZAINA HURTADO DO Ot I10 ESSENTIAL (PRIMARY) HYPERTENSION 01/15/2015 ZAINA HURTADO DO Ot I25.10 ATHSCL HEART DISEASE OF [place] CORONARY 01/15/2015 GENESIS TOBAR ZAINA Ramos Ot I73.9 PERIPHERAL VASCULAR DISEASE, UNSPECIFIED 01/15/2015 GENESIS TOBAR ZAINA Ramos Ot J44.9 CHRONIC OBSTRUCTIVE PULMONARY DISEASE, U 01/15/2015 GENESIS TOBAR ZAINA Ramos Ot N18.6 END STAGE RENAL DISEASE 01/15/2015 GENESIS TOBAR ZAINA Ramos Ot R07.9 CHEST PAIN, UNSPECIFIED 01/15/2015 GENESIS TOBAR ZAINA Ramos Ot R79.89 OTHER SPECIFIED ABNORMAL FINDINGS OF BLO 01/15/2015 GENESIS TOBAR ZAINA Beasley Ot Z91.19 PATIENT'S NONCOMPLIANCE W [facility] 01/15/2015 GENESIS TOBAR ZAINA Ramos Ot Z99.2 DEPENDENCE ON RENAL DIALYSIS 03/20/2015 ROMANA BRAN Ot E11.9 TYPE 2 DIABETES MELLITUS WITHOUT COMPLIC 03/20/2015 ROMANA BRAN Ot I12.0 HYP CHR KIDNEY DISEASE W STAGE 5 CHR KID 03/20/2015 ROMANA BRAN Ot N18.6 END STAGE RENAL DISEASE 03/20/2015 ROMANA BRAN Ot S00.83XA CONTUSION OF OTHER PART OF HEAD, INITIAL 03/20/2015 ROMANA BRAN Ot S72.352A DISPLACED COMMINUTED FRACTURE OF SHAFT O 03/20/2015 ROMANA BRAN Ot W05.0XXA FALL FROM NON-MOVING WHEELCHAIR, INITIAL 03/20/2015 ROMANA BRAN Ot Y92.[address] IN [facility] NON-INSTITUT (PRIVATE 03/20/2015 ROMANA BRAN Ot Y99.8 OTHER EXTERNAL CAUSE STATUS 03/20/2015 ROMANA BRAN Ot Z79.4 JAIL (CURRENT) USE OF INSULIN 03/20/2015 ROMANA BRAN Ot Z89.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 03/20/2015 ROMANA BRAN Ot Z99.2 DEPENDENCE ON RENAL DIALYSIS 03/23/2015 EDGAR RAMSEY, VERA Brown Ot D63.1 ANEMIA IN CHRONIC KIDNEY DISEASE 03/23/2015 EDGAR RAMSEY, VERA Brown Ot E11.9 TYPE 2 DIABETES MELLITUS WITHOUT COMPLIC 03/23/2015 EDGAR RAMSEY, VERA Brown Ot E87.5 HYPERKALEMIA 03/23/2015 VERA HERNÁNDEZ MD Ot I12.0 HYP CHR KIDNEY DISEASE W STAGE 5 CHR KID 03/23/2015 VERA HERNÁNDEZ MD, Ot N18.6 END STAGE RENAL DISEASE 03/23/2015 VERA HERNÁNDEZ MD, Ot R11.2 NAUSEA WITH VOMITING, UNSPECIFIED 03/23/2015 VERA HERNÁNDEZ MD, Ot S72.92XD UNSP FRACTURE OF LEFT FEMUR, SUBS FOR CL 03/23/2015 VERA HERNÁNDEZ MD, Ot Z79.4 CUSTOM BIKE BUILDER (CURRENT) USE OF INSULIN 03/23/2015 VERA HERNÁNDEZ MD Ot Z89.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 03/23/2015 VERA HERNÁNDEZ MD, Ot Z99.2 DEPENDENCE ON RENAL DIALYSIS 04/23/2015 MCKENNA BARRON DO Ot E11.9 TYPE 2 DIABETES MELLITUS WITHOUT COMPLIC 04/23/2015 MCKENNA BARRON DO Ot I12.0 HYP CHR KIDNEY DISEASE W STAGE 5 CHR KID 04/23/2015 MCKENNA BARRON DO Ot J44.9 CHRONIC OBSTRUCTIVE PULMONARY DISEASE, U 04/23/2015 MCKENNA BARRON DO Ot N18.6 END STAGE RENAL DISEASE 04/23/2015 MCKENNA BARRON DO Ot R06.00 DYSPNEA, UNSPECIFIED 04/23/2015 MCKENNA BARRON DO Ot Z79.4 CUSTOM BIKE BUILDER (CURRENT) USE OF INSULIN 04/23/2015 MCKENNA BARRON DO Ot Z99.2 DEPENDENCE ON RENAL DIALYSIS 04/23/2015 MCKENNA BARRON DO Ot Z99.81 DEPENDENCE ON SUPPLEMENTAL OXYGEN 10/02/2015 ZAINA HURTADO DO Ot E11.65 TYPE 2 DIABETES MELLITUS WITH HYPERGLYCE 10/02/2015 ZAINA HURTADO DO Ot E66.01 MORBID (SEVERE) OBESITY DUE TO EXCESS CA 10/02/2015 ZAINA HURTADO DO Ot I12.0 HYP CHR KIDNEY DISEASE W STAGE 5 CHR KID 10/02/2015 ZAINA HURTADO DO Ot I25.10 ATHSCL HEART DISEASE OF [place] CORONARY 10/02/2015 ZAINA HURTADO DO Ot I73.9 PERIPHERAL VASCULAR DISEASE, UNSPECIFIED 10/02/2015 ZAINA HURTADO DO Ot J44.9 CHRONIC OBSTRUCTIVE PULMONARY DISEASE, U 10/02/2015 ZAINA HURTADO DO Ot N18.6 END STAGE RENAL DISEASE 10/02/2015 ZAINA HURTADO DO Ot R07.9 CHEST PAIN, UNSPECIFIED 10/02/2015 HURTADO DO ZAINA K Ot Z68.42 BODY MASS INDEX (BMI) 45.0-49.9, ADULT 10/02/2015 GENESIS TOBAR ZAINA Ramos Ot Z79.4 JAIL (CURRENT) USE OF INSULIN 10/02/2015 GENESIS TOBAR ZAINA K Ot Z87.891 PERSONAL HISTORY OF NICOTINE DEPENDENCE 10/02/2015 GENESIS TOBAR ZAINA K Ot Z89.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 10/02/2015 HURTADO DOTATIANAA K Ot Z99.2 DEPENDENCE ON RENAL DIALYSIS 10/02/2015 TATIANA HURTADO DOA K Ot Z99.3 DEPENDENCE ON WHEELCHAIR 10/02/2015 TATIANA HURTADO DOA Ramos Ot Z99.81 DEPENDENCE ON SUPPLEMENTAL OXYGEN 01/31/2016 ARLETTE DURÁN MD Ot E13.22 OTH DIABETES MELLITUS WITH DIABETIC MANAGER ENVIRONMENTAL 01/31/2016 ARLETTE DURÁN MD Ot I12.0 HYP CHR KIDNEY DISEASE W STAGE 5 CHR KID 01/31/2016 ARLETTE DURÁN MD Ot N18.6 END STAGE RENAL DISEASE 01/31/2016 ARLETTE DURÁN MD Ot R07.9 CHEST PAIN, UNSPECIFIED 01/31/2016 ARLETTE DURÁN MD Ot Z79.4 CUSTOM BIKE BUILDER (CURRENT) USE OF INSULIN 01/31/2016 ARLETTE DURÁN MD Ot Z99.2 DEPENDENCE ON RENAL DIALYSIS 02/21/2016 MCKENNA HEBERTP Ot Z89.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 03/07/2016 MCKENNA HEBERTP Ot Z89.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 03/27/2016 MCKENNA HEBERT SMALL ANIMAL VETERINARIAN Ot Z89.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 03/28/2016 MCKENNA HEBERTP Ot Z89.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 03/29/2016 MCKENNA HEBERTP Ot Z89.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 04/04/2016 TREMAINE DO LORI K Ot E11.621 TYPE 2 DIABETES MELLITUS WITH FOOT ULCER 04/04/2016 TREMAINE DO LORI K Ot I12.0 HYP CHR KIDNEY DISEASE W STAGE 5 CHR KID 04/04/2016 TREMAINE DO LORI K Ot I25.10 ATHSCL HEART DISEASE OF [place] CORONARY 04/04/2016 TREMAINE DO, LORI K Ot J44.9 CHRONIC OBSTRUCTIVE PULMONARY DISEASE, U 04/04/2016 TREMAINE DO, LORI K Ot L03.115 CELLULITIS OF RIGHT LOWER LIMB 04/04/2016 TREMAINE DO, LORI K Ot N18.6 END STAGE RENAL DISEASE 04/04/2016 TREMAINE DO, LORI K Ot R22.41 LOCALIZED SWELLING, MASS AND LUMP, RIGHT 04/04/2016 TREMAINE DO, LORI K Ot Z79.4 CUSTOM BIKE BUILDER (CURRENT) USE OF INSULIN 04/04/2016 TREMAINE DO, LORI K Ot Z79.82 JAIL (CURRENT) USE OF ASPIRIN 04/04/2016 TREMAINE DO, LORI K Ot Z79.899 OTHER CUSTOM BIKE BUILDER (CURRENT) DRUG THERAPY 04/04/2016 TREMAINE DO, LORI K Ot Z99.2 DEPENDENCE ON RENAL DIALYSIS 04/05/2016 TREMAINE DO, LORI K Ot E11.621 TYPE 2 DIABETES MELLITUS WITH FOOT ULCER 04/05/2016 TREMAINE DO, LORI K Ot I12.0 HYP CHR KIDNEY DISEASE W STAGE 5 CHR KID 04/05/2016 TREMAINE DO, LORI K Ot I25.10 ATHSCL HEART DISEASE OF [place] CORONARY 04/05/2016 TREMAINE DO, LORI K Ot J44.9 CHRONIC OBSTRUCTIVE PULMONARY DISEASE, U 04/05/2016 TREMAINE DO, LORI K Ot L03.115 CELLULITIS OF RIGHT LOWER LIMB 04/05/2016 TREMAINE DO, LORI K Ot N18.6 END STAGE RENAL DISEASE 04/05/2016 TREMAINE DO, LORI K Ot R22.41 LOCALIZED SWELLING, MASS AND LUMP, RIGHT 04/05/2016 TREMAINE DO, LORI K Ot Z79.4 CUSTOM BIKE BUILDER (CURRENT) USE OF INSULIN 04/05/2016 TREMAINE DO, LORI K Ot Z79.82 JAIL (CURRENT) USE OF ASPIRIN 04/05/2016 TREMAINE DO, LORI K Ot Z79.899 OTHER JAIL (CURRENT) DRUG THERAPY 04/05/2016 TREMAINE DO, LORI K Ot Z99.2 DEPENDENCE ON RENAL DIALYSIS 04/13/2016 TREMAINE DO, LORI K Ot E11.621 TYPE 2 DIABETES MELLITUS WITH FOOT ULCER 04/13/2016 TREMAINE DO, LORI K Ot I12.0 HYP CHR KIDNEY DISEASE W STAGE 5 CHR KID 04/13/2016 TREMAINE DO, LORI K Ot I25.10 ATHSCL HEART DISEASE OF [place] CORONARY 04/13/2016 TREMAINE DO LOIR K Ot J44.9 CHRONIC OBSTRUCTIVE PULMONARY DISEASE, U 04/13/2016 TREMAINE DO, LORI K Ot L03.115 CELLULITIS OF RIGHT LOWER LIMB 04/13/2016 TREMAINE DO, LORI K Ot N18.6 END STAGE RENAL DISEASE 04/13/2016 TREMAINE DO, LORI K Ot R22.41 LOCALIZED SWELLING, MASS AND LUMP, RIGHT 04/13/2016 TREMAINE DO, LORI K Ot Z79.4 CUSTOM BIKE BUILDER (CURRENT) USE OF INSULIN 04/13/2016 TREMAINE DO, LORI K Ot Z79.82 JAIL (CURRENT) USE OF ASPIRIN 04/13/2016 TREMAINE DO, LORI K Ot Z79.899 OTHER JAIL (CURRENT) DRUG THERAPY 04/13/2016 TREMAINE DO, LORI K Ot Z99.2 DEPENDENCE ON RENAL DIALYSIS 04/24/2016 VIKKI KWOK MD, Ot L02.611 CUTANEOUS ABSCESS OF RIGHT FOOT 04/25/2016 MCKENNA HEBERT Ot Z89.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 04/30/2016 MCKENNA HEBERT Ot Z89.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 05/02/2016 ARLETTE DURÁN MD Ot E13.22 OTH DIABETES MELLITUS WITH DIABETIC MANAGER ENVIRONMENTAL 05/02/2016 ARLETTE DURÁN MD Ot I12.0 HYP CHR KIDNEY DISEASE W STAGE 5 CHR KID 05/02/2016 ARLETTE DURÁN MD Ot N18.6 END STAGE RENAL DISEASE 05/02/2016 ARLETTE DURÁN MD Ot R07.9 CHEST PAIN, UNSPECIFIED 05/02/2016 ARLETTE DURÁN MD Ot Z79.4 CUSTOM BIKE BUILDER (CURRENT) USE OF INSULIN 05/02/2016 ARLETTE DURÁN MD Ot Z99.2 DEPENDENCE ON RENAL DIALYSIS 05/22/2016 VIKKI KWOK MD Ot L02.611 CUTANEOUS ABSCESS OF RIGHT FOOT 05/22/2016 VIKKI KWOK MD, Ot L02.611 CUTANEOUS ABSCESS OF RIGHT FOOT 06/08/2016 Ot 250.00 DIAB JESUS WO COMPL, TYPE II OR UNSPEC TY 06/08/2016 Ot 250.00 DIAB JESUS WO COMPL, TYPE II OR UNSPEC TY 06/08/2016 Ot 250.00 DIAB JESUS WO COMPL, TYPE II OR UNSPEC TY 06/08/2016 Ot 250.00 DIAB JESUS WO COMPL, TYPE II OR UNSPEC TY 06/08/2016 Ot 272.4 HYPERLIPIDEMIA NEC/NOS 06/08/2016 Ot 401.9 HYPERTENSION NOS 06/08/2016 Ot V58.69 OTH MED,LT, CURRENT USE 06/08/2016 SUNDAR RAMSEY, VIKKI Jaffe Ot L02.611 CUTANEOUS ABSCESS OF RIGHT FOOT 06/25/2016 PIETER POOLE MD Ot E11.621 TYPE 2 DIABETES MELLITUS WITH FOOT ULCER 06/26/2016 PIETER POOLE MD, Ot E11.621 TYPE 2 DIABETES MELLITUS WITH FOOT ULCER 06/26/2016 PIETER POOLE MD, Ot E11.621 TYPE 2 DIABETES MELLITUS WITH FOOT ULCER 06/26/2016 PIETER POOLE MD Ot 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 06/26/2016 PIETER POOLE MD Ot 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 06/26/2016 PIETER POOLE MD, Ot E11.621 TYPE 2 DIABETES MELLITUS WITH FOOT ULCER 06/26/2016 PIETER POOLE MD Ot 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 06/26/2016 PIETER POOLE MD Ot 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 06/27/2016 LORETTA MARTINO APRN Ot E11.621 TYPE 2 DIABETES MELLITUS WITH FOOT ULCER 06/27/2016 LORETTA MARTINO APRN Ot E66.01 MORBID (SEVERE) OBESITY DUE TO EXCESS CA 06/27/2016 LORETTA MARTINO APRN Ot I50.20 UNSPECIFIED SYSTOLIC (CONGESTIVE) HEART 06/27/2016 LORETTA MARTINO APRN Ot 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 06/27/2016 LORETTA MARTINO APRN Ot I89.0 LYMPHEDEMA, NOT ELSEWHERE CLASSIFIED 06/27/2016 LORETTA MARTINO APRN Ot L97.512 NON-PRS CHRONIC ULCER OTH PRT RIGHT FOOT 06/27/2016 LORETTA MARTINO APRN Ot L97.513 NON-PRS CHRONIC ULCER OTH PRT RIGHT FOOT 06/27/2016 LORETTA MARTINO WEB DEVELOPER Ot N18.6 END STAGE RENAL DISEASE 07/09/2016 LORETTA MARTINO WEB DEVELOPER Ot E11.621 TYPE 2 DIABETES MELLITUS WITH FOOT ULCER 07/09/2016 LORETTA MARTINO WEB DEVELOPER Ot E66.01 MORBID (SEVERE) OBESITY DUE TO EXCESS CA 07/09/2016 LORETTA MARTINO WEB DEVELOPER Ot I50.20 UNSPECIFIED SYSTOLIC (CONGESTIVE) HEART 07/09/2016 LORETTA MARTINO WEB DEVELOPER Ot 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 07/09/2016 LORETTA MARTINO WEB DEVELOPER Ot I89.0 LYMPHEDEMA, NOT ELSEWHERE CLASSIFIED 07/09/2016 LORETTA MARTINO WEB DEVELOPER Ot L97.512 NON-PRS CHRONIC ULCER OTH PRT RIGHT FOOT 07/09/2016 LORETTA MARTINO WEB DEVELOPER Ot L97.513 NON-PRS CHRONIC ULCER OTH PRT RIGHT FOOT 07/09/2016 LORETTA MARTINO WEB DEVELOPER Ot N18.6 END STAGE RENAL DISEASE 07/24/2016 ALDA FERRARO L SMALL ANIMAL VETERINARIAN Ot 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 MELLITUS W DIABETIC MANAGER ENVIRONMENTAL 07/24/2016 ALDA FERRARO SMALL ANIMAL VETERINARIAN Ot E66.01 MORBID (SEVERE) OBESITY DUE TO EXCESS CA 07/24/2016 ALDA FERRARO SMALL ANIMAL VETERINARIAN Ot I12.0 HYP CHR KIDNEY DISEASE W STAGE 5 CHR KID 07/24/2016 ALDA FERRARO L SMALL ANIMAL VETERINARIAN Ot I25.10 ATHSCL HEART DISEASE OF [place] CORONARY 07/24/2016 ALDA FERRARO L SMALL ANIMAL VETERINARIAN Ot 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 [place] ARTERIES OF EXTREMITI 07/24/2016 ALDA FERRARO L SMALL ANIMAL VETERINARIAN Ot I70.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 07/24/2016 ALDA FERRARO L SMALL ANIMAL VETERINARIAN Ot L97.519 NON-PRS CHRONIC ULCER OTH PRT RIGHT FOOT 07/24/2016 ALDA FERRARO L SMALL ANIMAL VETERINARIAN Ot N18.5 CHRONIC KIDNEY DISEASE, STAGE 5 07/24/2016 ALDA FERRARO L SMALL ANIMAL VETERINARIAN Ot R06.00 DYSPNEA, UNSPECIFIED 07/24/2016 ALDA FERRARO L SMALL ANIMAL VETERINARIAN Ot Z68.43 BODY MASS INDEX (BMI) 50-59.9 , ADULT 07/24/2016 ALDA FERRARO SMALL ANIMAL VETERINARIAN Ot Z79.899 OTHER CUSTOM BIKE BUILDER (CURRENT) DRUG THERAPY 07/24/2016 ALDA FERRARO SMALL ANIMAL VETERINARIAN Ot Z89.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 07/24/2016 ALDA FERRARO SMALL ANIMAL VETERINARIAN Ot Z99.2 DEPENDENCE ON RENAL DIALYSIS 07/31/2016 LORETTA MARTINO WEB DEVELOPER Ot E11.621 TYPE 2 DIABETES MELLITUS WITH FOOT ULCER 07/31/2016 LORETTA MARTINO WEB DEVELOPER Ot E66.01 MORBID (SEVERE) OBESITY DUE TO EXCESS CA 07/31/2016 LORETTA MARTINO WEB DEVELOPER Ot I50.20 UNSPECIFIED SYSTOLIC (CONGESTIVE) HEART 07/31/2016 LORETTA MARTINO WEB DEVELOPER Ot 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 07/31/2016 LORETTA MARTINO WEB DEVELOPER Ot I89.0 LYMPHEDEMA, NOT ELSEWHERE CLASSIFIED 07/31/2016 LORETTA MARTINO WEB DEVELOPER Ot L97.512 NON-PRS CHRONIC ULCER OTH PRT RIGHT FOOT 07/31/2016 LORETTA MARTINO WEB DEVELOPER Ot L97.513 NON-PRS CHRONIC ULCER OTH PRT RIGHT FOOT 07/31/2016 LORETTA MARTINO WEB DEVELOPER Ot N18.6 END STAGE RENAL DISEASE 08/17/2016 LORETTA MARTINO WEB DEVELOPER Ot E11.621 TYPE 2 DIABETES MELLITUS WITH FOOT ULCER 08/17/2016 LORETTA MARTINO WEB DEVELOPER Ot E66.01 MORBID (SEVERE) OBESITY DUE TO EXCESS CA 08/17/2016 LORETTA MARTINO WEB DEVELOPER Ot I50.20 UNSPECIFIED SYSTOLIC (CONGESTIVE) HEART 08/17/2016 LORETTA MARTINO WEB DEVELOPER Ot 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 08/17/2016 LORETTA MARTINO WEB DEVELOPER Ot I89.0 LYMPHEDEMA, NOT ELSEWHERE CLASSIFIED 08/17/2016 LORETTA MARTINO WEB DEVELOPER Ot L97.512 NON-PRS CHRONIC ULCER OTH PRT RIGHT FOOT 08/17/2016 LORETTA MARTINO R WEB DEVELOPER Ot L97.513 NON-PRS CHRONIC ULCER OTH PRT RIGHT FOOT 08/17/2016 LORETTA MARTINO WEB DEVELOPER Ot N18.6 END STAGE RENAL DISEASE 08/23/2016 AUDRAALDA VALADEZ Mando SMALL ANIMAL VETERINARIAN Ot 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 MELLITUS W DIABETIC MANAGER ENVIRONMENTAL 08/23/2016 ALDA FERRARO SMALL ANIMAL VETERINARIAN Ot E66.01 MORBID (SEVERE) OBESITY DUE TO EXCESS CA 08/23/2016 ALDA FERRARO SMALL ANIMAL VETERINARIAN Ot I12.0 HYP CHR KIDNEY DISEASE W STAGE 5 CHR KID 08/23/2016 ALDA FERRARO SMALL ANIMAL VETERINARIAN Ot I25.10 ATHSCL HEART DISEASE OF [place] CORONARY 08/23/2016 ALDA FERRARO SMALL ANIMAL VETERINARIAN Ot 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 [place] ARTERIES OF EXTREMITI 08/23/2016 ALDA FERRARO SMALL ANIMAL VETERINARIAN Ot I70.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 08/23/2016 RONAN ALDA Gilmore SMALL ANIMAL VETERINARIAN Ot L97.519 NON-PRS CHRONIC ULCER OTH PRT RIGHT FOOT 08/23/2016 ALDA FERRARO SMALL ANIMAL VETERINARIAN Ot N18.5 CHRONIC KIDNEY DISEASE, STAGE 5 08/23/2016 ALDA FERRARO SMALL ANIMAL VETERINARIAN Ot R06.00 DYSPNEA, UNSPECIFIED 08/23/2016 AUDRAALDA VALADEZ SMALL ANIMAL VETERINARIAN Ot Z68.43 BODY MASS INDEX (BMI) 50-59.9 , ADULT 08/23/2016 ALDA FERRARO SMALL ANIMAL VETERINARIAN Ot Z79.899 OTHER CUSTOM BIKE BUILDER (CURRENT) DRUG THERAPY 08/23/2016 AUDRAALDA VALADEZ SMALL ANIMAL VETERINARIAN Ot Z89.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 08/23/2016 ALDA FERRARO SMALL ANIMAL VETERINARIAN Ot Z99.2 DEPENDENCE ON RENAL DIALYSIS 09/17/2016 LORETTA MARTINO WEB DEVELOPER Ot E11.621 TYPE 2 DIABETES MELLITUS WITH FOOT ULCER 09/17/2016 LORETTA MARTINO WEB DEVELOPER Ot E66.01 MORBID (SEVERE) OBESITY DUE TO EXCESS CA 09/17/2016 LORETTA MARTINO WEB DEVELOPER Ot I50.20 UNSPECIFIED SYSTOLIC (CONGESTIVE) HEART 09/17/2016 LORETTA MARTINO WEB DEVELOPER Ot 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 09/17/2016 LORETTA MARTINO WEB DEVELOPER Ot I89.0 LYMPHEDEMA, NOT ELSEWHERE CLASSIFIED 09/17/2016 LORETTA MARTINO WEB DEVELOPER Ot L97.512 NON-PRS CHRONIC ULCER OTH PRT RIGHT FOOT 09/17/2016 LORETTA MARTINO WEB DEVELOPER Ot L97.513 NON-PRS CHRONIC ULCER OTH PRT RIGHT FOOT 09/17/2016 LORETTA MARTINO WEB DEVELOPER Ot N18.6 END STAGE RENAL DISEASE 09/18/2016 LORETTA MARTINO WEB DEVELOPER Ot E11.621 TYPE 2 DIABETES MELLITUS WITH FOOT ULCER 09/18/2016 LORETTA MARTINO WEB DEVELOPER Ot E66.01 MORBID (SEVERE) OBESITY DUE TO EXCESS CA 09/18/2016 LORETTA MARTINO WEB DEVELOPER Ot I50.20 UNSPECIFIED SYSTOLIC (CONGESTIVE) HEART 09/18/2016 LORETTA MARTINO WEB DEVELOPER Ot 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 09/18/2016 LORETTA MARTINO WEB DEVELOPER Ot I89.0 LYMPHEDEMA, NOT ELSEWHERE CLASSIFIED 09/18/2016 LORETTA MARTINO APRN Ot L97.512 NON-PRS CHRONIC ULCER OTH PRT RIGHT FOOT 09/18/2016 LORETTA MARTINO WEB DEVELOPER Ot L97.513 NON-PRS CHRONIC ULCER OTH PRT RIGHT FOOT 09/18/2016 LORETTA MARTINO WEB DEVELOPER Ot N18.6 END STAGE RENAL DISEASE 09/19/2016 Ot 272.4 HYPERLIPIDEMIA NEC/NOS 09/19/2016 Ot 401.9 HYPERTENSION NOS 09/19/2016 Ot V58.69 OTH MED,LT, CURRENT USE 09/19/2016 SUNDAR RAMSEY, VIKKI Jaffe Ot L02.611 CUTANEOUS ABSCESS OF RIGHT FOOT 09/19/2016 PIETER POOLE MD Ot E11.621 TYPE 2 DIABETES MELLITUS WITH FOOT ULCER 09/19/2016 PIETER POOLE MD Ot 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 09/19/2016 PIETER POOLE MD Ot 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 09/19/2016 LORETTA MARTINO WEB DEVELOPER Ot E11.621 TYPE 2 DIABETES MELLITUS WITH FOOT ULCER 09/19/2016 LORETTA MARTINO WEB DEVELOPER Ot E66.01 MORBID (SEVERE) OBESITY DUE TO EXCESS CA 09/19/2016 LORETTA MARTINO APRN Ot I50.20 UNSPECIFIED SYSTOLIC (CONGESTIVE) HEART 09/19/2016 LORETTA MARTINO WEB DEVELOPER Ot 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 09/19/2016 LORETTA MARTINO WEB DEVELOPER Ot I89.0 LYMPHEDEMA, NOT ELSEWHERE CLASSIFIED 09/19/2016 LORETTA MARTINO WEB DEVELOPER Ot L97.512 NON-PRS CHRONIC ULCER OTH PRT RIGHT FOOT 09/19/2016 LORETTA MARTINO WEB DEVELOPER Ot L97.513 NON-PRS CHRONIC ULCER OTH PRT RIGHT FOOT 09/19/2016 LORETTA MARTINO WEB DEVELOPER Ot N18.6 END STAGE RENAL DISEASE 09/20/2016 LORETTA MARTINO WEB DEVELOPER Ot E11.621 TYPE 2 DIABETES MELLITUS WITH FOOT ULCER 09/20/2016 LORETTA MARTINO WEB DEVELOPER Ot E66.01 MORBID (SEVERE) OBESITY DUE TO EXCESS CA 09/20/2016 LORETTA MARTINO WEB DEVELOPER Ot I50.20 UNSPECIFIED SYSTOLIC (CONGESTIVE) HEART 09/20/2016 LORETTA MARTINO APRN Ot 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 09/20/2016 LORETTA MARTINO WEB DEVELOPER Ot I89.0 LYMPHEDEMA, NOT ELSEWHERE CLASSIFIED 09/20/2016 LORETTA MARTINO WEB DEVELOPER Ot L97.512 NON-PRS CHRONIC ULCER OTH PRT RIGHT FOOT 09/20/2016 LORETTA MARTINO WEB DEVELOPER Ot L97.513 NON-PRS CHRONIC ULCER OTH PRT RIGHT FOOT 09/20/2016 LORETTA MARTINO WEB DEVELOPER Ot N18.6 END STAGE RENAL DISEASE 09/20/2016 Ot 272.4 HYPERLIPIDEMIA NEC/NOS 09/20/2016 Ot 401.9 HYPERTENSION NOS 09/20/2016 Ot V58.69 OTH MED,LT, CURRENT USE 09/20/2016 SUNDAR RAMSEY, VIKKI Jaffe Ot L02.611 CUTANEOUS ABSCESS OF RIGHT FOOT 09/20/2016 PIETER POOLE MD Ot E11.621 TYPE 2 DIABETES MELLITUS WITH FOOT ULCER 09/20/2016 PIETER POOLE MD Ot 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 09/20/2016 PIETER POOLE MD Ot 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 09/20/2016 LORETTA MARTINO APRN Ot E11.621 TYPE 2 DIABETES MELLITUS WITH FOOT ULCER 09/20/2016 LORETTA MARTINO APRN Ot E66.01 MORBID (SEVERE) OBESITY DUE TO EXCESS CA 09/20/2016 LORETTA MARTINO APRN Ot I50.20 UNSPECIFIED SYSTOLIC (CONGESTIVE) HEART 09/20/2016 GUNNER, LORETTA R WEB DEVELOPER Ot 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 09/20/2016 LORETTA MARTINO WEB DEVELOPER Ot I89.0 LYMPHEDEMA, NOT ELSEWHERE CLASSIFIED 09/20/2016 LORETTA MARTINO WEB DEVELOPER Ot L97.512 NON-PRS CHRONIC ULCER OTH PRT RIGHT FOOT 09/20/2016 LORETTA MARTINO WEB DEVELOPER Ot L97.513 NON-PRS CHRONIC ULCER OTH PRT RIGHT FOOT 09/20/2016 LORETTA MARTINO WEB DEVELOPER Ot N18.6 END STAGE RENAL DISEASE 09/21/2016 LORETTA MARTINO WEB DEVELOPER Ot E11.621 TYPE 2 DIABETES MELLITUS WITH FOOT ULCER 09/21/2016 LORETTA MARTINO WEB DEVELOPER Ot E66.01 MORBID (SEVERE) OBESITY DUE TO EXCESS CA 09/21/2016 LORETTA MARTINO WEB DEVELOPER Ot I50.20 UNSPECIFIED SYSTOLIC (CONGESTIVE) HEART 09/21/2016 LORETTA MARTINO WEB DEVELOPER Ot 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 09/21/2016 LORETTA MARTINO WEB DEVELOPER Ot I89.0 LYMPHEDEMA, NOT ELSEWHERE CLASSIFIED 09/21/2016 LORETTA MARTINO WEB DEVELOPER Ot L97.512 NON-PRS CHRONIC ULCER OTH PRT RIGHT FOOT 09/21/2016 LORETTA MARTINO WEB DEVELOPER Ot L97.513 NON-PRS CHRONIC ULCER OTH PRT RIGHT FOOT 09/21/2016 LORETTA MARTINO WEB DEVELOPER Ot N18.6 END STAGE RENAL DISEASE 09/25/2016 SUNDAR RAMSEY, VIKKI Jaffe Ot L02.611 CUTANEOUS ABSCESS OF RIGHT FOOT 09/25/2016 PIETER POOLE MD Ot E11.621 TYPE 2 DIABETES MELLITUS WITH FOOT ULCER 09/25/2016 PIETER POOLE MD Ot 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 09/25/2016 PIETER POOLE MD Ot 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 09/25/2016 LORETTA MARTINO WEB DEVELOPER Ot E11.621 TYPE 2 DIABETES MELLITUS WITH FOOT ULCER 09/25/2016 LORETTA MARTINO WEB DEVELOPER Ot E66.01 MORBID (SEVERE) OBESITY DUE TO EXCESS CA 09/25/2016 LORETTA MARTINO WEB DEVELOPER Ot I50.20 UNSPECIFIED SYSTOLIC (CONGESTIVE) HEART 09/25/2016 LORETTA MARTINO WEB DEVELOPER Ot 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 09/25/2016 LORETTA MARTINO WEB DEVELOPER Ot I89.0 LYMPHEDEMA, NOT ELSEWHERE CLASSIFIED 09/25/2016 LORETTA MARTINO WEB DEVELOPER Ot L97.512 NON-PRS CHRONIC ULCER OTH PRT RIGHT FOOT 09/25/2016 LORETTA MARTINO WEB DEVELOPER Ot L97.513 NON-PRS CHRONIC ULCER OTH PRT RIGHT FOOT 09/25/2016 LORETTA MARTINO WEB DEVELOPER Ot N18.6 END STAGE RENAL DISEASE 10/05/2016 LORETTA MARTINO WEB DEVELOPER Ot Z45.2 ENCOUNTER FOR ADJUSTMENT AND MANAGEMENT 11/01/2016 PIETER POOLE MD Ot E11.621 TYPE 2 DIABETES MELLITUS WITH FOOT ULCER 11/01/2016 PIETER POOLE MD Ot 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 11/01/2016 PIETER POOLE MD, Ot 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 11/01/2016 LORETTA MARTINO WEB DEVELOPER Ot Z45.2 ENCOUNTER FOR ADJUSTMENT AND MANAGEMENT 11/07/2016 LORETTA MARTINO APRN Ot E11.621 TYPE 2 DIABETES MELLITUS WITH FOOT ULCER 11/07/2016 LORETTA MARTINO WEB DEVELOPER Ot E66.01 MORBID (SEVERE) OBESITY DUE TO EXCESS CA 11/07/2016 LORETTA MARTINO WEB DEVELOPER Ot I50.20 UNSPECIFIED SYSTOLIC (CONGESTIVE) HEART 11/07/2016 LORETTA MARTINO WEB DEVELOPER Ot 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 11/07/2016 LORETTA MARTINO WEB DEVELOPER Ot I89.0 LYMPHEDEMA, NOT ELSEWHERE CLASSIFIED 11/07/2016 LORETTA MARTINO WEB DEVELOPER Ot L03.115 CELLULITIS OF RIGHT LOWER LIMB 11/07/2016 LORETTA MARTINO WEB DEVELOPER Ot L97.211 NON-PRS CHRONIC ULCER OF RIGHT [place] 11/07/2016 LORETTA MARTINO WEB DEVELOPER Ot 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 11/07/2016 LORETTA MARTINO WEB DEVELOPER Ot L97.512 NON-PRS CHRONIC ULCER OTH PRT RIGHT FOOT 11/07/2016 LORETTA MARTINO WEB DEVELOPER Ot N18.6 END STAGE RENAL DISEASE 11/07/2016 LORETTA MARTINO WEB DEVELOPER Ot Z68.43 BODY MASS INDEX (BMI) 50-59.9 , ADULT 11/16/2016 LORETTA MARTINO WEB DEVELOPER Ot E11.621 TYPE 2 DIABETES MELLITUS WITH FOOT ULCER 11/16/2016 LORETTA MARTINO WEB DEVELOPER Ot I70.231 ATHSCL [place] ARTERIES OF RIGHT LEG W UL 11/16/2016 LORETTA MARTINO WEB DEVELOPER Ot I89.0 LYMPHEDEMA, NOT ELSEWHERE CLASSIFIED 11/16/2016 LORETTA MARTINO WEB DEVELOPER Ot L97.211 NON-PRS CHRONIC ULCER OF RIGHT [place] 11/16/2016 LORETTA MARTINO WEB DEVELOPER Ot 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 11/16/2016 LORETTA MARTINO WEB DEVELOPER Ot L97.512 NON-PRS CHRONIC ULCER OTH PRT RIGHT FOOT 11/27/2016 LORETTA MARTINO WEB DEVELOPER Ot L03.115 CELLULITIS OF RIGHT LOWER LIMB 11/27/2016 LORETTA MARTINO WEB DEVELOPER Ot 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 11/27/2016 LORETTA MARTINO WEB DEVELOPER Ot Z45.2 ENCOUNTER FOR ADJUSTMENT AND MANAGEMENT 11/27/2016 LORETTA MARTINO WEB DEVELOPER Ot L03.115 CELLULITIS OF RIGHT LOWER LIMB 11/27/2016 LORETTA MARTINO WEB DEVELOPER Ot 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 11/27/2016 LORETTA MARTINO WEB DEVELOPER Ot Z45.2 ENCOUNTER FOR ADJUSTMENT AND MANAGEMENT 12/01/2016 LORETTA MARTINO WEB DEVELOPER Ot E11.621 TYPE 2 DIABETES MELLITUS WITH FOOT ULCER 12/01/2016 LORETTA MARTINO WEB DEVELOPER Ot 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 12/01/2016 LORETTA MARTINO WEB DEVELOPER Ot I89.0 LYMPHEDEMA, NOT ELSEWHERE CLASSIFIED 12/01/2016 LORETTA MARTINO WEB DEVELOPER Ot L97.512 NON-PRS CHRONIC ULCER OTH PRT RIGHT FOOT 12/01/2016 LORETTA MARTINO WEB DEVELOPER Ot N18.6 END STAGE RENAL DISEASE 12/01/2016 LORETTA MARTINO WEB DEVELOPER Ot E11.621 TYPE 2 DIABETES MELLITUS WITH FOOT ULCER 12/01/2016 LORETTA MARTINO WEB DEVELOPER Ot 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 12/01/2016 LORETTA MARTINO WEB DEVELOPER Ot I89.0 LYMPHEDEMA, NOT ELSEWHERE CLASSIFIED 12/01/2016 LORETTA MARTINO APRN Ot L97.512 NON-PRS CHRONIC ULCER OTH PRT RIGHT FOOT 12/01/2016 LORETTA MARTINO APRN Ot N18.6 END STAGE RENAL DISEASE 12/04/2016 PIETER POOLE MD Ot E11.621 TYPE 2 DIABETES MELLITUS WITH FOOT ULCER 12/04/2016 PIETER POOLE MD Ot 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 12/04/2016 PIETER POOLE MD Ot 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 12/05/2016 LORETTA MARTINO APRN Ot E11.621 TYPE 2 DIABETES MELLITUS WITH FOOT ULCER 12/05/2016 LORETTA MARTINO APRN Ot 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 12/05/2016 LORETTA MARTINO APRN Ot I89.0 LYMPHEDEMA, NOT ELSEWHERE CLASSIFIED 12/05/2016 LORETTA MARTINO WEB DEVELOPER Ot L97.512 NON-PRS CHRONIC ULCER OTH PRT RIGHT FOOT 12/05/2016 LORETTA MARTINO APRN Ot N18.6 END STAGE RENAL DISEASE 12/07/2016 PIETER POOLE MD Ot E11.621 TYPE 2 DIABETES MELLITUS WITH FOOT ULCER 12/07/2016 PIETER POOLE MD Ot 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 12/07/2016 PIETER POOLE MD Ot 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 12/07/2016 LORETTA MARTINO APRN Ot E11.621 TYPE 2 DIABETES MELLITUS WITH FOOT ULCER 12/07/2016 LORETTA MARTINO APRN Ot I70.231 ATHSCL [place] ARTERIES OF RIGHT LEG W UL 12/07/2016 LORETTA MARTINO WEB DEVELOPER Ot I89.0 LYMPHEDEMA, NOT ELSEWHERE CLASSIFIED 12/07/2016 LORETTA MARTINO WEB DEVELOPER Ot L97.211 NON-PRS CHRONIC ULCER OF RIGHT [place] 12/07/2016 LORETTA MARTINO APRN Ot 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 12/07/2016 GUNNER, LORETTA R WEB DEVELOPER Ot L97.512 NON-PRS CHRONIC ULCER OTH PRT RIGHT FOOT 12/12/2016 LORETTA MARTINO WEB DEVELOPER Ot E11.621 TYPE 2 DIABETES MELLITUS WITH FOOT ULCER 12/12/2016 LORETTA MARTINO WEB DEVELOPER Ot 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 12/12/2016 LORETTA MARTINO WEB DEVELOPER Ot I89.0 LYMPHEDEMA, NOT ELSEWHERE CLASSIFIED 12/12/2016 LORETTA MARTINO WEB DEVELOPER Ot L97.512 NON-PRS CHRONIC ULCER OTH PRT RIGHT FOOT 12/12/2016 LORETTA MARTINO WEB DEVELOPER Ot N18.6 END STAGE RENAL DISEASE 12/13/2016 LORETTA MARTINO WEB DEVELOPER Ot E11.621 TYPE 2 DIABETES MELLITUS WITH FOOT ULCER 12/13/2016 LORETTA MARTINO APRN Ot 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 12/13/2016 LORETTA MARTINO WEB DEVELOPER Ot I89.0 LYMPHEDEMA, NOT ELSEWHERE CLASSIFIED 12/13/2016 LORETTA MARTINO WEB DEVELOPER Ot L97.512 NON-PRS CHRONIC ULCER OTH PRT RIGHT FOOT 12/13/2016 LORETTA MARTINO WEB DEVELOPER Ot N18.6 END STAGE RENAL DISEASE 12/14/2016 LORETTA MARTINO WEB DEVELOPER Ot E11.621 TYPE 2 DIABETES MELLITUS WITH FOOT ULCER 12/14/2016 LORETTA MARTINO APRN Ot 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 12/14/2016 LORETTA MARTINO WEB DEVELOPER Ot I89.0 LYMPHEDEMA, NOT ELSEWHERE CLASSIFIED 12/14/2016 LORETTA MARTINO WEB DEVELOPER Ot L97.211 NON-PRS CHRONIC ULCER OF RIGHT [place] 12/14/2016 LORETTA MARTINO WEB DEVELOPER Ot 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 12/14/2016 LORETTA MARTINO WEB DEVELOPER Ot L97.512 NON-PRS CHRONIC ULCER OTH PRT RIGHT FOOT 12/14/2016 LORETTA MARTINO WEB DEVELOPER Ot E11.621 TYPE 2 DIABETES MELLITUS WITH FOOT ULCER 12/14/2016 LORETTA MARTINO WEB DEVELOPER Ot E66.01 MORBID (SEVERE) OBESITY DUE TO EXCESS CA 12/14/2016 LORETTA MARTINO WEB DEVELOPER Ot I50.20 UNSPECIFIED SYSTOLIC (CONGESTIVE) HEART 12/14/2016 LORETTA MARTINO WEB DEVELOPER Ot 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 12/14/2016 LORETTA MARTINO WEB DEVELOPER Ot I89.0 LYMPHEDEMA, NOT ELSEWHERE CLASSIFIED 12/14/2016 LORETTA MARTINO WEB DEVELOPER Ot L03.115 CELLULITIS OF RIGHT LOWER LIMB 12/14/2016 LORETTA MARTINO WEB DEVELOPER Ot L97.211 NON-PRS CHRONIC ULCER OF RIGHT [place] 12/14/2016 LORETTA MARTINO WEB DEVELOPER Ot 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 12/14/2016 LORETTA MARTINO WEB DEVELOPER Ot L97.512 NON-PRS CHRONIC ULCER OTH PRT RIGHT FOOT 12/14/2016 LORETTA MARTINO WEB DEVELOPER Ot N18.6 END STAGE RENAL DISEASE 12/14/2016 LORETTA MARTINO WEB DEVELOPER Ot Z68.43 BODY MASS INDEX (BMI) 50-59.9 , ADULT 12/24/2016 LORETTA MARTINO WEB DEVELOPER Ot L03.115 CELLULITIS OF RIGHT LOWER LIMB 12/24/2016 LORETTA MARTINO WEB DEVELOPER Ot 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 12/24/2016 LORETTA MARTINO WEB DEVELOPER Ot Z45.2 ENCOUNTER FOR ADJUSTMENT AND MANAGEMENT 12/24/2016 LORETTA MARTINO WEB DEVELOPER Ot E11.621 TYPE 2 DIABETES MELLITUS WITH FOOT ULCER 12/24/2016 LORETTA MARTINO WEB DEVELOPER Ot 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 12/24/2016 LORETTA MARTINO WEB DEVELOPER Ot I89.0 LYMPHEDEMA, NOT ELSEWHERE CLASSIFIED 12/24/2016 LORETTA MARTINO WEB DEVELOPER Ot L97.512 NON-PRS CHRONIC ULCER OTH PRT RIGHT FOOT 12/24/2016 LORETTA MARTINO WEB DEVELOPER Ot N18.6 END STAGE RENAL DISEASE 12/25/2016 LORETTA MARTINO WEB DEVELOPER Ot E11.621 TYPE 2 DIABETES MELLITUS WITH FOOT ULCER 12/25/2016 LORETTA MARTINO WEB DEVELOPER Ot I70.231 ATHSCL [place] ARTERIES OF RIGHT LEG W UL 12/25/2016 LORETTA MARTINO WEB DEVELOPER Ot I89.0 LYMPHEDEMA, NOT ELSEWHERE CLASSIFIED 12/25/2016 LORETTA MARTINO WEB DEVELOPER Ot L97.211 NON-PRS CHRONIC ULCER OF RIGHT [place] 12/25/2016 LORETTA MARTINO WEB DEVELOPER Ot 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 12/25/2016 LORETTA MARTINO WEB DEVELOPER Ot L97.512 NON-PRS CHRONIC ULCER OTH PRT RIGHT FOOT 12/26/2016 LORETTA MARTINO WEB DEVELOPER Ot E11.621 TYPE 2 DIABETES MELLITUS WITH FOOT ULCER 12/26/2016 LORETTA MARTINO WEB DEVELOPER Ot 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 12/26/2016 LORETTA MARTINO WEB DEVELOPER Ot I89.0 LYMPHEDEMA, NOT ELSEWHERE CLASSIFIED 12/26/2016 LORETTA MARTINO WEB DEVELOPER Ot L97.512 NON-PRS CHRONIC ULCER OTH PRT RIGHT FOOT 12/26/2016 LORETTA MARTINO WEB DEVELOPER Ot N18.6 END STAGE RENAL DISEASE 12/28/2016 LORETTA MARTINO WEB DEVELOPER Ot E11.621 TYPE 2 DIABETES MELLITUS WITH FOOT ULCER 12/28/2016 LORETTA MARTINO WEB DEVELOPER Ot 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 12/28/2016 LORETTA MARTINO WEB DEVELOPER Ot I89.0 LYMPHEDEMA, NOT ELSEWHERE CLASSIFIED 12/28/2016 LORETTA MARTINO WEB DEVELOPER Ot L97.512 NON-PRS CHRONIC ULCER OTH PRT RIGHT FOOT 12/28/2016 LORETTA MARTINO WEB DEVELOPER Ot N18.6 END STAGE RENAL DISEASE 12/30/2016 LORETTA MARTINO WEB DEVELOPER Ot L03.115 CELLULITIS OF RIGHT LOWER LIMB 12/30/2016 LORETTA MARTINO WEB DEVELOPER Ot 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 12/30/2016 LORETTA MARTINO WEB DEVELOPER Ot Z45.2 ENCOUNTER FOR ADJUSTMENT AND MANAGEMENT 12/31/2016 LORETTA MARTINO WEB DEVELOPER Ot 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 MELLITUS W DIABETIC MANAGER ENVIRONMENTAL 12/31/2016 LORETTA MARTINO WEB DEVELOPER Ot E11.621 TYPE 2 DIABETES MELLITUS WITH FOOT ULCER 12/31/2016 LORETTA MARTINO WEB DEVELOPER Ot 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 12/31/2016 LORETTA MARTINO WEB DEVELOPER Ot I89.0 LYMPHEDEMA, NOT ELSEWHERE CLASSIFIED 12/31/2016 LORETTA MARTINO WEB DEVELOPER Ot L97.512 NON-PRS CHRONIC ULCER OTH PRT RIGHT FOOT 12/31/2016 LORETTA MARTINO WEB DEVELOPER Ot N18.6 END STAGE RENAL DISEASE 12/31/2016 LORETTA MARTINO R WEB DEVELOPER Ot E11.621 TYPE 2 DIABETES MELLITUS WITH FOOT ULCER 12/31/2016 LORETTA MARTINO WEB DEVELOPER Ot 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 12/31/2016 LORETTA MARTINO R WEB DEVELOPER Ot I89.0 LYMPHEDEMA, NOT ELSEWHERE CLASSIFIED 12/31/2016 LORETTA MARTINO R WEB DEVELOPER Ot L97.211 NON-PRS CHRONIC ULCER OF RIGHT [place] 12/31/2016 LORETTA MARTINO R WEB DEVELOPER Ot 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 12/31/2016 LORETTA MARTINO R WEB DEVELOPER Ot L97.512 NON-PRS CHRONIC ULCER OTH PRT RIGHT FOOT 01/02/2017 LORETTA MARTINO WEB DEVELOPER Ot E11.621 TYPE 2 DIABETES MELLITUS WITH FOOT ULCER 01/02/2017 LORETTA MARTINO WEB DEVELOPER Ot 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 01/02/2017 LORETTA MARTINO R WEB DEVELOPER Ot I89.0 LYMPHEDEMA, NOT ELSEWHERE CLASSIFIED 01/02/2017 LORETTA MARTINO R WEB DEVELOPER Ot L97.512 NON-PRS CHRONIC ULCER OTH PRT RIGHT FOOT 01/03/2017 LORETTA MARTINO R WEB DEVELOPER Ot E11.621 TYPE 2 DIABETES MELLITUS WITH FOOT ULCER 01/03/2017 LORETTA MARTINO WEB DEVELOPER Ot 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 01/03/2017 LORETTA MARTINO WEB DEVELOPER Ot I89.0 LYMPHEDEMA, NOT ELSEWHERE CLASSIFIED 01/03/2017 LORETTA MARTINO R WEB DEVELOPER Ot L97.512 NON-PRS CHRONIC ULCER OTH PRT RIGHT FOOT 01/08/2017 LORETTA MARTINO R WEB DEVELOPER Ot E11.621 TYPE 2 DIABETES MELLITUS WITH FOOT ULCER 01/08/2017 LORETTA MARTINO R WEB DEVELOPER Ot 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 01/08/2017 LORETTA MARTINO R WEB DEVELOPER Ot I89.0 LYMPHEDEMA, NOT ELSEWHERE CLASSIFIED 01/08/2017 LORETTA MARTINO WEB DEVELOPER Ot L97.512 NON-PRS CHRONIC ULCER OTH PRT RIGHT FOOT 01/10/2017 LORETTA MARTINO WEB DEVELOPER Ot E11.621 TYPE 2 DIABETES MELLITUS WITH FOOT ULCER 01/10/2017 LORETTA MARTINO WEB DEVELOPER Ot 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 01/10/2017 LORETTA MARTINO WEB DEVELOPER Ot I89.0 LYMPHEDEMA, NOT ELSEWHERE CLASSIFIED 01/10/2017 LORETTA MARTINO WEB DEVELOPER Ot L97.512 NON-PRS CHRONIC ULCER OTH PRT RIGHT FOOT 01/10/2017 LORETTA MARTINO WEB DEVELOPER Ot N18.6 END STAGE RENAL DISEASE 01/11/2017 LORETTA MARTINO WEB DEVELOPER Ot E11.621 TYPE 2 DIABETES MELLITUS WITH FOOT ULCER 01/11/2017 LORETTA MARTINO WEB DEVELOPER Ot 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 01/11/2017 LORETTA MARTINO WEB DEVELOPER Ot I89.0 LYMPHEDEMA, NOT ELSEWHERE CLASSIFIED 01/11/2017 LORETTA MARTINO WEB DEVELOPER Ot L97.512 NON-PRS CHRONIC ULCER OTH PRT RIGHT FOOT 01/11/2017 LORETTA MARTINO WEB DEVELOPER Ot N18.6 END STAGE RENAL DISEASE 01/16/2017 ALDA FERRARO SMALL ANIMAL VETERINARIAN Ot I25.10 ATHSCL HEART DISEASE OF [place] CORONARY 01/16/2017 ALDA FERRARO SMALL ANIMAL VETERINARIAN Ot I50.32 CHRONIC DIASTOLIC (CONGESTIVE) HEART ОЛЬГА 01/16/2017 ALDA FERRARO SMALL ANIMAL VETERINARIAN Ot I73.89 OTHER SPECIFIED PERIPHERAL VASCULAR DISE 01/16/2017 ALDA FERRARO SMALL ANIMAL VETERINARIAN Ot N18.5 CHRONIC KIDNEY DISEASE, STAGE 5 01/16/2017 LORETTA MARTINO WEB DEVELOPER Ot 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 MELLITUS W DIABETIC MANAGER ENVIRONMENTAL 01/16/2017 LORETTA MARTINO WEB DEVELOPER Ot E11.621 TYPE 2 DIABETES MELLITUS WITH FOOT ULCER 01/16/2017 LORETTA MARTINO WEB DEVELOPER Ot 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 01/16/2017 LORETTA MARTINO WEB DEVELOPER Ot I89.0 LYMPHEDEMA, NOT ELSEWHERE CLASSIFIED 01/16/2017 LORETTA MARTINO WEB DEVELOPER Ot L97.512 NON-PRS CHRONIC ULCER OTH PRT RIGHT FOOT 01/16/2017 LORETTA MARTINO WEB DEVELOPER Ot N18.6 END STAGE RENAL DISEASE 01/18/2017 GUNNER, LORETTA R WEB DEVELOPER Ot E11.621 TYPE 2 DIABETES MELLITUS WITH FOOT ULCER 01/18/2017 LORETTA MARTINO WEB DEVELOPER Ot 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 01/18/2017 LORETTA MARTINO WEB DEVELOPER Ot I89.0 LYMPHEDEMA, NOT ELSEWHERE CLASSIFIED 01/18/2017 LORETTA MARTINO WEB DEVELOPER Ot L97.512 NON-PRS CHRONIC ULCER OTH PRT RIGHT FOOT 01/22/2017 LORETTA MARTINO WEB DEVELOPER Ot 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 MELLITUS W DIABETIC MANAGER ENVIRONMENTAL 01/22/2017 LORETTA MARTINO WEB DEVELOPER Ot E11.621 TYPE 2 DIABETES MELLITUS WITH FOOT ULCER 01/22/2017 LORETTA MARTINO WEB DEVELOPER Ot 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 01/22/2017 LORETTA MARTINO WEB DEVELOPER Ot I89.0 LYMPHEDEMA, NOT ELSEWHERE CLASSIFIED 01/22/2017 LORETTA MARTINO WEB DEVELOPER Ot L97.512 NON-PRS CHRONIC ULCER OTH PRT RIGHT FOOT 01/22/2017 LORETTA MARTINO R WEB DEVELOPER Ot N18.6 END STAGE RENAL DISEASE 01/24/2017 LORETTA MARTINO WEB DEVELOPER Ot E11.621 TYPE 2 DIABETES MELLITUS WITH FOOT ULCER 01/24/2017 LORETTA MARTINO WEB DEVELOPER Ot 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 01/24/2017 LORETTA MARTINO WEB DEVELOPER Ot I89.0 LYMPHEDEMA, NOT ELSEWHERE CLASSIFIED 01/24/2017 LORETTA MARTINO WEB DEVELOPER Ot L97.512 NON-PRS CHRONIC ULCER OTH PRT RIGHT FOOT 01/24/2017 LORETTA MARTINO WEB DEVELOPER Ot N18.6 END STAGE RENAL DISEASE 01/31/2017 LORETTA MARTINO WEB DEVELOPER Ot E11.621 TYPE 2 DIABETES MELLITUS WITH FOOT ULCER 01/31/2017 LORETTA MARTINO WEB DEVELOPER Ot 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 01/31/2017 LORETTA MARTINO WEB DEVELOPER Ot I89.0 LYMPHEDEMA, NOT ELSEWHERE CLASSIFIED 01/31/2017 LORETTA MARTINO R WEB DEVELOPER Ot L97.512 NON-PRS CHRONIC ULCER OTH PRT RIGHT FOOT 01/31/2017 LORETTA MARTINO WEB DEVELOPER Ot N18.6 END STAGE RENAL DISEASE 02/05/2017 LORETTA MARTINO WEB DEVELOPER Ot E11.621 TYPE 2 DIABETES MELLITUS WITH FOOT ULCER 02/05/2017 LORETTA MARTINO WEB DEVELOPER Ot 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 02/05/2017 LORETTA MARTINO WEB DEVELOPER Ot I89.0 LYMPHEDEMA, NOT ELSEWHERE CLASSIFIED 02/05/2017 LORETTA MARTINO WEB DEVELOPER Ot L97.512 NON-PRS CHRONIC ULCER OTH PRT RIGHT FOOT 02/05/2017 LORETTA MARTINO WEB DEVELOPER Ot N18.6 END STAGE RENAL DISEASE 02/05/2017 LORETTA MARTINO WEB DEVELOPER Ot E11.621 TYPE 2 DIABETES MELLITUS WITH FOOT ULCER 02/05/2017 LORETTA MARTINO WEB DEVELOPER Ot 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 02/05/2017 LORETTA MARTINO WEB DEVELOPER Ot I89.0 LYMPHEDEMA, NOT ELSEWHERE CLASSIFIED 02/05/2017 LORETTA MARTINO WEB DEVELOPER Ot L97.512 NON-PRS CHRONIC ULCER OTH PRT RIGHT FOOT 02/06/2017 BAIMA, ALDA L SMALL ANIMAL VETERINARIAN Ot I25.10 ATHSCL HEART DISEASE OF [place] CORONARY 02/06/2017 BAIMA, ALDA L SMALL ANIMAL VETERINARIAN Ot I50.32 CHRONIC DIASTOLIC (CONGESTIVE) HEART ОЛЬГА 02/06/2017 BAIMA, ALDA L SMALL ANIMAL VETERINARIAN Ot I73.89 OTHER SPECIFIED PERIPHERAL VASCULAR DISE 02/06/2017 BAIMA, ALDA L SMALL ANIMAL VETERINARIAN Ot N18.5 CHRONIC KIDNEY DISEASE, STAGE 5 02/08/2017 BAIMA, ALDA L SMALL ANIMAL VETERINARIAN Ot I25.10 ATHSCL HEART DISEASE OF [place] CORONARY 02/08/2017 BAIMA, ALDA L SMALL ANIMAL VETERINARIAN Ot I50.32 CHRONIC DIASTOLIC (CONGESTIVE) HEART ОЛЬГА 02/08/2017 BAIMA, ALDA L SMALL ANIMAL VETERINARIAN Ot I73.89 OTHER SPECIFIED PERIPHERAL VASCULAR DISE 02/08/2017 BAIMA, ALDA L SMALL ANIMAL VETERINARIAN Ot N18.5 CHRONIC KIDNEY DISEASE, STAGE 5 02/11/2017 LORETTA MARTINO WEB DEVELOPER Ot E11.621 TYPE 2 DIABETES MELLITUS WITH FOOT ULCER 02/11/2017 LORETTA MARTINO WEB DEVELOPER Ot 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 02/11/2017 LORETTA MARTINO WEB DEVELOPER Ot I89.0 LYMPHEDEMA, NOT ELSEWHERE CLASSIFIED 02/11/2017 LORETTA MARTINO WEB DEVELOPER Ot L97.512 NON-PRS CHRONIC ULCER OTH PRT RIGHT FOOT 02/12/2017 LORETTA MARTINO WEB DEVELOPER Ot E11.621 TYPE 2 DIABETES MELLITUS WITH FOOT ULCER 02/12/2017 LORETTA MARTINO WEB DEVELOPER Ot 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 02/12/2017 LORETTA MARTINO WEB DEVELOPER Ot I89.0 LYMPHEDEMA, NOT ELSEWHERE CLASSIFIED 02/12/2017 LORETTA MARTINO WEB DEVELOPER Ot L97.512 NON-PRS CHRONIC ULCER OTH PRT RIGHT FOOT 02/15/2017 LORETTA MARTINO WEB DEVELOPER Ot E11.621 TYPE 2 DIABETES MELLITUS WITH FOOT ULCER 02/15/2017 LORETTA MARTINO WEB DEVELOPER Ot E66.01 MORBID (SEVERE) OBESITY DUE TO EXCESS CA 02/15/2017 LORETTA MARTINO WEB DEVELOPER Ot I50.20 UNSPECIFIED SYSTOLIC (CONGESTIVE) HEART 02/15/2017 LORETTA MARTINO WEB DEVELOPER Ot 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 02/15/2017 LORETTA MARTINO WEB DEVELOPER Ot I89.0 LYMPHEDEMA, NOT ELSEWHERE CLASSIFIED 02/15/2017 LORETTA MARTINO WEB DEVELOPER Ot L97.512 NON-PRS CHRONIC ULCER OTH PRT RIGHT FOOT 02/15/2017 LORETTA MARTINO WEB DEVELOPER Ot N18.6 END STAGE RENAL DISEASE 02/15/2017 LORETTA MARTINO WEB DEVELOPER Ot S90.931A UNSP SUPERFICIAL INJURY OF RIGHT GREAT T 02/15/2017 LORETTA MARTINO WEB DEVELOPER Ot Z68.43 BODY MASS INDEX (BMI) 50-59.9 , ADULT 02/19/2017 LORETTA MARTINO WEB DEVELOPER Ot E11.621 TYPE 2 DIABETES MELLITUS WITH FOOT ULCER 02/19/2017 LORETTA MARTINO APRN Ot E66.01 MORBID (SEVERE) OBESITY DUE TO EXCESS CA 02/19/2017 LORETTA MARTINO WEB DEVELOPER Ot I50.20 UNSPECIFIED SYSTOLIC (CONGESTIVE) HEART 02/19/2017 LORETTA MARTINO WEB DEVELOPER Ot 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 02/19/2017 LORETTA MARTINO WEB DEVELOPER Ot I89.0 LYMPHEDEMA, NOT ELSEWHERE CLASSIFIED 02/19/2017 LORETTA MARTINO WEB DEVELOPER Ot L97.512 NON-PRS CHRONIC ULCER OTH PRT RIGHT FOOT 02/19/2017 LORETTA MARTINO WEB DEVELOPER Ot N18.6 END STAGE RENAL DISEASE 02/19/2017 LORETTA MARTINO APRN Ot S90.931A UNSP SUPERFICIAL INJURY OF RIGHT GREAT T 02/19/2017 LORETTA MARTINO WEB DEVELOPER Ot Z68.43 BODY MASS INDEX (BMI) 50-59.9 , ADULT 02/20/2017 LORETTA MARTINO WEB DEVELOPER Ot E11.621 TYPE 2 DIABETES MELLITUS WITH FOOT ULCER 02/20/2017 LORETTA MARTINO WEB DEVELOPER Ot E66.01 MORBID (SEVERE) OBESITY DUE TO EXCESS CA 02/20/2017 LORETTA MARTINO APRN Ot I50.20 UNSPECIFIED SYSTOLIC (CONGESTIVE) HEART 02/20/2017 LORETTA MARTINO WEB DEVELOPER Ot 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 02/20/2017 LORETTA MARTINO WEB DEVELOPER Ot 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 02/20/2017 LORETTA MARTINO APRN Ot I89.0 LYMPHEDEMA, NOT ELSEWHERE CLASSIFIED 02/20/2017 LORETTA MARTINO WEB DEVELOPER Ot L97.512 NON-PRS CHRONIC ULCER OTH PRT RIGHT FOOT 02/20/2017 LORETTA MARTINO WEB DEVELOPER Ot N18.6 END STAGE RENAL DISEASE 02/26/2017 LORETTA MARTINO WEB DEVELOPER Ot E11.621 TYPE 2 DIABETES MELLITUS WITH FOOT ULCER 02/26/2017 LORETTA MARTINO WEB DEVELOPER Ot 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 02/26/2017 LORETTA MARTINO APRN Ot I89.0 LYMPHEDEMA, NOT ELSEWHERE CLASSIFIED 02/26/2017 LORETTA MARTINO WEB DEVELOPER Ot L97.512 NON-PRS CHRONIC ULCER OTH PRT RIGHT FOOT 02/26/2017 LORETTA MARTINO WEB DEVELOPER Ot N18.6 END STAGE RENAL DISEASE 03/01/2017 LORETTA MARTINO WEB DEVELOPER Ot E11.621 TYPE 2 DIABETES MELLITUS WITH FOOT ULCER 03/01/2017 LORETTA MARTINO WEB DEVELOPER Ot E66.01 MORBID (SEVERE) OBESITY DUE TO EXCESS CA 03/01/2017 LORETTA MARTINO WEB DEVELOPER Ot I50.20 UNSPECIFIED SYSTOLIC (CONGESTIVE) HEART 03/01/2017 LORETTA MARTINO WEB DEVELOPER Ot 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 03/01/2017 LORETTA MARTINO WEB DEVELOPER Ot 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 03/01/2017 LORETTA MARTINO WEB DEVELOPER Ot I89.0 LYMPHEDEMA, NOT ELSEWHERE CLASSIFIED 03/01/2017 LORETTA MARTINO WEB DEVELOPER Ot L97.512 NON-PRS CHRONIC ULCER OTH PRT RIGHT FOOT 03/01/2017 LORETTA MARTINO WEB DEVELOPER Ot N18.6 END STAGE RENAL DISEASE 03/01/2017 LORETTA MARTINO WEB DEVELOPER Ot S90.931A UNSP SUPERFICIAL INJURY OF RIGHT GREAT T 03/06/2017 LORETTA MARTINO WEB DEVELOPER Ot E11.621 TYPE 2 DIABETES MELLITUS WITH FOOT ULCER 03/06/2017 LORETTA MARTINO WEB DEVELOPER Ot E66.01 MORBID (SEVERE) OBESITY DUE TO EXCESS CA 03/06/2017 LORETTA MARTINO WEB DEVELOPER Ot I50.20 UNSPECIFIED SYSTOLIC (CONGESTIVE) HEART 03/06/2017 LORETTA MARTINO WEB DEVELOPER Ot 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 03/06/2017 LORETTA MARTINO WEB DEVELOPER Ot 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 03/06/2017 LORETTA MARTINO WEB DEVELOPER Ot I89.0 LYMPHEDEMA, NOT ELSEWHERE CLASSIFIED 03/06/2017 LORETTA MARTINO WEB DEVELOPER Ot L97.512 NON-PRS CHRONIC ULCER OTH PRT RIGHT FOOT 03/06/2017 LORETTA MARTINO WEB DEVELOPER Ot N18.6 END STAGE RENAL DISEASE 03/06/2017 LORETTA MARTINO WEB DEVELOPER Ot S90.931A UNSP SUPERFICIAL INJURY OF RIGHT GREAT T 03/11/2017 LORETTA MARTINO WEB DEVELOPER Ot E11.621 TYPE 2 DIABETES MELLITUS WITH FOOT ULCER 03/11/2017 LORETTA MARTINO WEB DEVELOPER Ot E66.01 MORBID (SEVERE) OBESITY DUE TO EXCESS CA 03/11/2017 LORETTA MARTINO WEB DEVELOPER Ot I50.20 UNSPECIFIED SYSTOLIC (CONGESTIVE) HEART 03/11/2017 LORETTA MARTINO WEB DEVELOPER Ot 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 03/11/2017 LORETTA MARTINO WEB DEVELOPER Ot 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 03/11/2017 LORETTA MARTINO WEB DEVELOPER Ot I89.0 LYMPHEDEMA, NOT ELSEWHERE CLASSIFIED 03/11/2017 LORETTA MARTINO WEB DEVELOPER Ot L97.512 NON-PRS CHRONIC ULCER OTH PRT RIGHT FOOT 03/11/2017 LORETTA MARTINO WEB DEVELOPER Ot N18.6 END STAGE RENAL DISEASE 03/12/2017 LORETTA MARTINO WEB DEVELOPER Ot E11.621 TYPE 2 DIABETES MELLITUS WITH FOOT ULCER 03/12/2017 LORETTA MARTINO WEB DEVELOPER Ot E66.01 MORBID (SEVERE) OBESITY DUE TO EXCESS CA 03/12/2017 LORETTA MARTINO WEB DEVELOPER Ot I50.20 UNSPECIFIED SYSTOLIC (CONGESTIVE) HEART 03/12/2017 LORETTA MARTINO WEB DEVELOPER Ot 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 03/12/2017 LORETTA MARTINO WEB DEVELOPER Ot 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 03/12/2017 LORETTA MARTINO WEB DEVELOPER Ot I89.0 LYMPHEDEMA, NOT ELSEWHERE CLASSIFIED 03/12/2017 LORETTA MARTINO WEB DEVELOPER Ot L97.512 NON-PRS CHRONIC ULCER OTH PRT RIGHT FOOT 03/12/2017 LORETTA MARTINO WEB DEVELOPER Ot N18.6 END STAGE RENAL DISEASE 03/18/2017 LORETTA MARTINO WEB DEVELOPER Ot E11.621 TYPE 2 DIABETES MELLITUS WITH FOOT ULCER 03/18/2017 LORETTA MARTINO WEB DEVELOPER Ot E66.01 MORBID (SEVERE) OBESITY DUE TO EXCESS CA 03/18/2017 LORETTA MARTINO WEB DEVELOPER Ot I50.20 UNSPECIFIED SYSTOLIC (CONGESTIVE) HEART 03/18/2017 LORETTA MARTINO WEB DEVELOPER Ot 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 03/18/2017 LORETTA MARTINO WEB DEVELOPER Ot I89.0 LYMPHEDEMA, NOT ELSEWHERE CLASSIFIED 03/18/2017 LORETTA MARTINO WEB DEVELOPER Ot L97.512 NON-PRS CHRONIC ULCER OTH PRT RIGHT FOOT 03/18/2017 LORETTA MARTINO WEB DEVELOPER Ot N18.6 END STAGE RENAL DISEASE 03/18/2017 LORETTA MARTINO WEB DEVELOPER Ot S90.931A UNSP SUPERFICIAL INJURY OF RIGHT GREAT T 03/18/2017 LORETTA MARTINO WEB DEVELOPER Ot Z68.43 BODY MASS INDEX (BMI) 50-59.9 , ADULT 03/22/2017 LORETTA MARTINO WEB DEVELOPER Ot E11.621 TYPE 2 DIABETES MELLITUS WITH FOOT ULCER 03/22/2017 LORETTA MARTINO WEB DEVELOPER Ot E66.01 MORBID (SEVERE) OBESITY DUE TO EXCESS CA 03/22/2017 LORETTA MARTINO WEB DEVELOPER Ot I50.20 UNSPECIFIED SYSTOLIC (CONGESTIVE) HEART 03/22/2017 LORETTA MARTINO WEB DEVELOPER Ot 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 03/22/2017 LORETTA MARTINO WEB DEVELOPER Ot 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 03/22/2017 LORETTA MARTINO WEB DEVELOPER Ot I89.0 LYMPHEDEMA, NOT ELSEWHERE CLASSIFIED 03/22/2017 LORETTA MARTINO WEB DEVELOPER Ot L97.512 NON-PRS CHRONIC ULCER OTH PRT RIGHT FOOT 03/22/2017 LORETTA MARTINO WEB DEVELOPER Ot N18.6 END STAGE RENAL DISEASE 03/22/2017 LORETTA MARTINO WEB DEVELOPER Ot S90.931A UNSP SUPERFICIAL INJURY OF RIGHT GREAT T 03/27/2017 LORETTA MARTINO WEB DEVELOPER Ot E11.621 TYPE 2 DIABETES MELLITUS WITH FOOT ULCER 03/27/2017 LORETTA MARTINO WEB DEVELOPER Ot E66.01 MORBID (SEVERE) OBESITY DUE TO EXCESS CA 03/27/2017 LORETTA MARTINO WEB DEVELOPER Ot I50.20 UNSPECIFIED SYSTOLIC (CONGESTIVE) HEART 03/27/2017 LORETTA MARTINO WEB DEVELOPER Ot 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 03/27/2017 LORETTA MARTINO WEB DEVELOPER Ot I89.0 LYMPHEDEMA, NOT ELSEWHERE CLASSIFIED 03/27/2017 LORETTA MARTINO WEB DEVELOPER Ot L97.512 NON-PRS CHRONIC ULCER OTH PRT RIGHT FOOT 03/27/2017 LORETTA MARTINO WEB DEVELOPER Ot N18.6 END STAGE RENAL DISEASE 03/27/2017 LORETTA MARTINO WEB DEVELOPER Ot S90.931A UNSP SUPERFICIAL INJURY OF RIGHT GREAT T 03/27/2017 LORETTA MARTINO WEB DEVELOPER Ot Z68.43 BODY MASS INDEX (BMI) 50-59.9 , ADULT 03/27/2017 LORETTA MARTINO WEB DEVELOPER Ot E11.621 TYPE 2 DIABETES MELLITUS WITH FOOT ULCER 03/27/2017 LORETTA MARTINO WEB DEVELOPER Ot E66.01 MORBID (SEVERE) OBESITY DUE TO EXCESS CA 03/27/2017 LORETTA MARTINO WEB DEVELOPER Ot I50.20 UNSPECIFIED SYSTOLIC (CONGESTIVE) HEART 03/27/2017 LORETTA MARTINO WEB DEVELOPER Ot 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 03/27/2017 LORETTA MARTINO WEB DEVELOPER Ot 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 03/27/2017 LORETTA MARTINO WEB DEVELOPER Ot I89.0 LYMPHEDEMA, NOT ELSEWHERE CLASSIFIED 03/27/2017 LORETTA MARTINO WEB DEVELOPER Ot L97.511 NON-PRS CHRONIC ULCER OTH PRT R FOOT MARSH 03/27/2017 LORETTA MARTINO WEB DEVELOPER Ot N18.6 END STAGE RENAL DISEASE 03/27/2017 LORETTA MARTINO WEB DEVELOPER Ot S90.931A UNSP SUPERFICIAL INJURY OF RIGHT GREAT T 03/28/2017 LORETTA MARTINO WEB DEVELOPER Ot E11.621 TYPE 2 DIABETES MELLITUS WITH FOOT ULCER 03/28/2017 LORETTA MARTINO WEB DEVELOPER Ot 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 03/28/2017 LORETTA MARTINO WEB DEVELOPER Ot I89.0 LYMPHEDEMA, NOT ELSEWHERE CLASSIFIED 03/28/2017 LORETTA MARTINO WEB DEVELOPER Ot L97.512 NON-PRS CHRONIC ULCER OTH PRT RIGHT FOOT 03/29/2017 LORETTA MARTINO WEB DEVELOPER Ot E11.621 TYPE 2 DIABETES MELLITUS WITH FOOT ULCER 03/29/2017 LORETTA MARTINO WEB DEVELOPER Ot E66.01 MORBID (SEVERE) OBESITY DUE TO EXCESS CA 03/29/2017 LORETTA MARTINO WEB DEVELOPER Ot I50.20 UNSPECIFIED SYSTOLIC (CONGESTIVE) HEART 03/29/2017 LORETTA MARTINO WEB DEVELOPER Ot 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 03/29/2017 LORETTA MARTINO WEB DEVELOPER Ot 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 03/29/2017 LORETTA MARTINO WEB DEVELOPER Ot I89.0 LYMPHEDEMA, NOT ELSEWHERE CLASSIFIED 03/29/2017 LORETTA MARTINO WEB DEVELOPER Ot L97.512 NON-PRS CHRONIC ULCER OTH PRT RIGHT FOOT 03/29/2017 LORETTA MARTINO WEB DEVELOPER Ot N18.6 END STAGE RENAL DISEASE 03/29/2017 LORETTA MARTINO WEB DEVELOPER Ot S90.931A UNSP SUPERFICIAL INJURY OF RIGHT GREAT T 04/03/2017 GUNNER, LORETTA R WEB DEVELOPER Ot E11.621 TYPE 2 DIABETES MELLITUS WITH FOOT ULCER 04/03/2017 LORETTA MARTINO WEB DEVELOPER Ot 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 04/03/2017 LORETTA MARTINO WEB DEVELOPER Ot I89.0 LYMPHEDEMA, NOT ELSEWHERE CLASSIFIED 04/03/2017 LORETTA MARTINO WEB DEVELOPER Ot L97.512 NON-PRS CHRONIC ULCER OTH PRT RIGHT FOOT 04/04/2017 LORETTA MARTINO WEB DEVELOPER Ot E11.621 TYPE 2 DIABETES MELLITUS WITH FOOT ULCER 04/04/2017 LORETTA MARTINO WEB DEVELOPER Ot 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 04/04/2017 LORETTA MARTINO WEB DEVELOPER Ot I89.0 LYMPHEDEMA, NOT ELSEWHERE CLASSIFIED 04/04/2017 LORETTA MARTINO WEB DEVELOPER Ot L97.511 NON-PRS CHRONIC ULCER OTH PRT R FOOT MARSH 04/12/2017 LORETTA MARTINO WEB DEVELOPER Ot E11.621 TYPE 2 DIABETES MELLITUS WITH FOOT ULCER 04/12/2017 LORETTA MARTINO WEB DEVELOPER Ot 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 04/12/2017 LORETTA MARTINO WEB DEVELOPER Ot I89.0 LYMPHEDEMA, NOT ELSEWHERE CLASSIFIED 04/12/2017 LORETTA MARTINO WEB DEVELOPER Ot L97.511 NON-PRS CHRONIC ULCER OTH PRT R FOOT MARSH 04/16/2017 LORETTA MARTINO WEB DEVELOPER Ot E11.621 TYPE 2 DIABETES MELLITUS WITH FOOT ULCER 04/16/2017 LORETTA MARTINO WEB DEVELOPER Ot E66.01 MORBID (SEVERE) OBESITY DUE TO EXCESS CA 04/16/2017 LORETTA MARTINO WEB DEVELOPER Ot I50.20 UNSPECIFIED SYSTOLIC (CONGESTIVE) HEART 04/16/2017 LORETTA MARTINO WEB DEVELOPER Ot 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 04/16/2017 LORETTA MARTINO WEB DEVELOPER Ot 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 04/16/2017 LORETTA MARTINO WEB DEVELOPER Ot I89.0 LYMPHEDEMA, NOT ELSEWHERE CLASSIFIED 04/16/2017 LORETTA MARTINO WEB DEVELOPER Ot L97.511 NON-PRS CHRONIC ULCER OTH PRT R FOOT MARSH 04/16/2017 LORETTA MARTINO R WEB DEVELOPER Ot N18.6 END STAGE RENAL DISEASE 04/16/2017 LORETTA MARTINO APRN Ot S90.931A UNSP SUPERFICIAL INJURY OF RIGHT GREAT T 04/18/2017 LORETTA MARTINO APRN Ot E11.621 TYPE 2 DIABETES MELLITUS WITH FOOT ULCER 04/18/2017 LORETTA MARTINO APRN Ot E66.01 MORBID (SEVERE) OBESITY DUE TO EXCESS CA 04/18/2017 LORETTA MARTINO APRN Ot I50.20 UNSPECIFIED SYSTOLIC (CONGESTIVE) HEART 04/18/2017 LORETTA MARTINO APRN Ot 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 04/18/2017 LORETTA MARTINO APRN Ot 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 04/18/2017 LORETTA MARTINO APRN Ot I89.0 LYMPHEDEMA, NOT ELSEWHERE CLASSIFIED 04/18/2017 LORETTA MARTINO APRN Ot L97.511 NON-PRS CHRONIC ULCER OTH PRT R FOOT MARSH 04/18/2017 LORETTA MARTINO APRN Ot N18.6 END STAGE RENAL DISEASE 04/18/2017 LORETTA MARTINO APRN Ot S90.931A UNSP SUPERFICIAL INJURY OF RIGHT GREAT T Procedures Code Description Performed By Performed On Cardiolog Madan Waller 05/07/2012 06764 MEASURE BLOOD OXYGEN LEVEL 05/08/2012 65280 MICRO ALBUMIN-IN HOUSE 05/20/2012 56126 A1C (IN-HOUSE) 05/20/2012 88835 MICROALBUMIN 05/20/2012 21072 ROUTINE VENIPUNCTURE 06/04/2012 01367 EKG, TRACING (IN-HOUSE) 06/04/2012 38571 CBC 06/04/2012 80957 CMP 06/04/2012 19161 LIPID PANEL 06/04/2012 [id number] GFR CALC (RESULT ONLY) 06/04/2012 60634 TSH 06/04/2012 74898 XRAY CHEST 2 VIEW 06/05/2012 63282 ROUTINE VENIPUNCTURE 06/20/2012 25759 BMP 06/20/2012 [id number] GFR CALC (RESULT ONLY) 06/20/2012 21568 ROUTINE VENIPUNCTURE 07/16/2012 93650 BMP 07/16/2012 [id number] GFR CALC (RESULT ONLY) 07/16/2012 04389 ROUTINE VENIPUNCTURE 08/15/2012 68878 RENAL PROFILE 08/15/2012 [id number] GFR CALC (RESULT ONLY) 08/15/2012 48289 ROUTINE VENIPUNCTURE 08/19/2012 32289 CMP 08/19/2012 [id number] GFR CALC (RESULT ONLY) 08/19/2012 26724 PHOSPHORUS 08/19/2012 73456 CMP 09/03/2012 46226 LIPID PANEL 09/03/2012 82856 OXIMETRY 09/03/2012 49469 ROUTINE VENIPUNCTURE 09/09/2012 55137 CMP 09/09/2012 04020 LIPID PANEL 09/09/2012 3224864 GFR CALC (RESULT ONLY) 09/09/2012 77713 ROUTINE VENIPUNCTURE 09/18/2012 34239 BMP 09/18/2012 [id number] GFR CALC (RESULT ONLY) 09/18/2012 19637 ROUTINE VENIPUNCTURE 10/01/2012 82285 US RENAL ULTRASOUND, COMP 10/01/2012 80253 VITAMIN D I-25 DIHYDROXY 10/01/2012 30612 PTH (intact) (ORDER ONLY) 10/01/2012 66623 A1C (IN-HOUSE) 10/01/2012 52885 CMP 10/01/2012 96985 MAGNESIUM 10/01/2012 1750610 GFR CALC (RESULT ONLY) 10/01/2012 33286 UA W/MICROSCOPY 10/01/2012 08854 VITAMIN D 25-HYDROXY (D2,D3 , TOTAL) 10/01/2012 78328 HEPATITIS PROFILE 10/01/2012 [id number] CALCIUM (RESULT ONLY) 10/02/2012 8478204 PTH INTACT JC (RESULT ONLY) 10/02/2012 PRO/CRE URINE PROTEIN TO CREATNINE RATIO 10/02/2012 48085 HIV ANTIBODIES (RML) 10/02/2012 59360 ROUTINE VENIPUNCTURE 12/08/2012 81087 UA W/ CULTURE IF INDICATED 12/08/2012 61586 CBC 12/08/2012 07215 RENAL PROFILE 12/08/2012 8221572 GFR CALC (RESULT ONLY) 12/08/2012 PRO/CRE URINE PROTEIN TO CREATNINE RATIO 12/08/2012 05248 A1C (IN-HOUSE) 12/26/2012 Cardiolog Syl Hsieh 01/22/2013 75074 SLEEP STUDY 02/04/2013 42553 ROUTINE VENIPUNCTURE 03/02/2013 29279 UA W/ CULTURE IF INDICATED 03/02/2013 06404 CBC 03/02/2013 26542 RENAL PROFILE 03/02/2013 [id number] GFR CALC (RESULT ONLY) 03/02/2013 44145 MAMMOGRAM, SCREENING 03/04/2013 99424 A1C (IN-HOUSE) 03/30/2013 63053 ROUTINE VENIPUNCTURE 05/13/2013 83695 UA W/ CULTURE IF INDICATED 05/13/2013 69195 A1C (IN-HOUSE) 05/13/2013 93413 CBC 05/13/2013 61801 RENAL PROFILE 05/13/2013 50035 IRON SERUM 05/13/2013 65622 IRON BNDNG CAP 05/13/2013 [id number] GFR CALC (RESULT ONLY) 05/13/2013 91330 HEPATITIS PROFILE 05/13/2013 44642 FERRITIN 05/13/2013 99320 ANCA PANEL (C AND P) 05/13/2013 89365 C 4 COMPLEMENT SERUM 05/13/2013 63624 CULTURE URINE 05/13/2013 ANAANA SAIRA ANALYZER (SCREEN) 05/13/2013 IRGROUP IRON GROUP (Iron,TIBC, Ferritin) 05/13/2013 PRO/CRE URINE PROTEIN TO CREATNINE RATIO 05/13/2013 07215 ROUTINE VENIPUNCTURE 06/22/2013 68142 OXIMETRY 06/22/2013 24837 CBC 06/22/2013 61491 CMP 06/22/2013 4014270 GFR CALC (RESULT ONLY) 06/22/[id number] SPTYPE 06/23/2013 04955 ROUTINE VENIPUNCTURE 07/06/2013 08292 BMP 07/06/2013 51836 OXIMETRY 07/06/2013 63799 OXIMETRY 07/09/2013 38684 SLEEP STUDY ([facility]- SLEEP STUDY) 07/09/2013 06505 A1C (IN-HOUSE) 08/28/2013 58204 OXIMETRY 09/10/2013 88612 OXIMETRY 09/28/2013 BARON ARGUELLO 09/28/2013 61126 A1C (IN-HOUSE) 11/27/2013 29217 MICROALBUMIN 12/30/2013 42895 MICRO ALBUMIN-IN HOUSE 12/30/2013 59716 OXIMETRY 07/21/2014 Results Test Result Range Complete blood count (CBC) with automated white blood cell (WBC) differential - 04/03/16 21:16 Blood leukocytes automated count (number/volume) 14.8 10*3/uL 4.3-11.0 Blood erythrocytes automated count (number/volume) 3.05 10*6/uL 4.35-5.85 Venous blood hemoglobin measurement (mass/volume) 10.5 g/dL 11.5-16.0 Blood hematocrit (volume fraction) 32 % 35-52 Automated erythrocyte mean corpuscular volume 106 [foz_us] 80-99 Automated erythrocyte mean corpuscular hemoglobin (mass per erythrocyte) 34 pg 25-34 Automated erythrocyte mean corpuscular hemoglobin concentration measurement ( mass/volume) 32 g/dL 32-36 Automated erythrocyte distribution width ratio 15.7 % 10.0-14.5 Automated blood platelet count (count/volume) 155 10*3/uL 130-400 Automated blood platelet mean volume measurement 12.3 [foz_us] 7.4-10.4 Automated blood neutrophils/100 leukocytes 87 % 42-75 Automated blood lymphocytes/100 leukocytes 7 % 12-44 Blood monocytes/100 leukocytes 6 % 0-12 Automated blood eosinophils/100 leukocytes 1 % 0-10 Automated blood basophils/100 leukocytes 0 % 0-10 Blood neutrophils automated count (number/volume) 12.8 10*3 1.8-7.8 Blood lymphocytes automated count (number/volume) 1.1 10*3 1.0-4.0 Blood monocytes automated count (number/volume) 0.8 10*3 0.0-1.0 Automated eosinophil count 0.1 10*3/uL 0.0-0.3 Automated blood basophil count (count/volume) 0.0 10*3/uL 0.0-0.1 Blood manual differential performed detection - 04/03/16 21:16 Blood monocytes/100 leukocytes 0 % NRG Manual blood segmented neutrophils/100 leukocytes 89 % NRG Blood band neutrophils/100 leukocytes 0 % NRG Manual blood lymphocytes/100 leukocytes 11 % NRG Manual eosinophils/100 leukocytes in nose 0 % NRG Manual blood basophils/100 leukocytes 0 % NRG Blood anisocytosis detection by light microscopy SLIGHT NRG Blood macrocytes detection by light microscopy SLIGHT NRG Manual blood nucleated erythrocytes/100 leukocytes ratio 1 NRG Comprehensive metabolic panel - 04/03/16 21:16 Serum or plasma sodium measurement (moles/volume) 131 mmol/L 135-145 Serum or plasma potassium measurement (moles/volume) 4.7 mmol/L 3.6-5.0 Serum or plasma chloride measurement (moles/volume) 87 mmol/L 98-107 Carbon dioxide 24 mmol/L 21-32 Serum or plasma anion gap determination (moles/volume) 20 mmol/L 5-14 Serum or plasma urea nitrogen measurement (mass/volume) 43 mg/dL 7-18 Serum or plasma creatinine measurement (mass/volume) 8.24 mg/dL 0.60-1.30 Serum or plasma urea nitrogen/creatinine mass ratio 5 NRG Serum or plasma creatinine measurement with calculation of estimated glomerular filtration rate 5 NRG Serum or plasma glucose measurement (mass/volume) 540 mg/dL 70-105 Serum or plasma calcium measurement (mass/volume) 9.0 mg/dL 8.5-10.1 Serum or plasma total bilirubin measurement (mass/volume) 0.4 mg/dL 0.1-1.0 Serum or plasma alkaline phosphatase measurement (enzymatic activity/volume) 215 U/L 40-136 Serum or plasma aspartate aminotransferase measurement (enzymatic activity/ volume) 26 U/L 5-34 Serum or plasma alanine aminotransferase measurement (enzymatic activity/volume ) 27 U/L 0-55 Serum or plasma protein measurement (mass/volume) 7.4 g/dL 6.4-8.2 Serum or plasma albumin measurement (mass/volume) 3.6 g/dL 3.2-4.5 Serum or plasma C reactive protein measurement (mass/volume) - 04/03/16 21:16 Serum or plasma C reactive protein measurement (mass/volume) 23.13 mg/dL 0.00-0.50 Erythrocyte sedimentation rate by westergren method - 04/03/16 21:16 Erythrocyte sedimentation rate by westergren method > mm 0-20 Bacterial blood culture - 04/03/16 21:16 Bacterial blood culture NG NRG Blood lactic acid measurement (moles/volume) - 04/03/16 21:27 Blood lactic acid measurement (moles/volume) 1.4 mmol/L 0.5-2.0 Magnesium - 04/03/16 21:27 Magnesium 2.1 mg/dL 1.8-2.4 Serum or plasma creatine kinase measurement (enzymatic activity/volume) - 04/03 21:27 Serum or plasma creatine kinase measurement (enzymatic activity/volume) 20 U/L 29-168 Serum or plasma creatine kinase MB measurement (enzymatic activity/volume) - 21:27 Serum or plasma creatine kinase MB measurement (enzymatic activity/volume) 0.8 ng/mL <6.6 Serum or plasma troponin i.cardiac measurement (mass/volume) - 04/03/16 21:27 Serum or plasma troponin i.cardiac measurement (mass/volume) < ng/ mL <0.30 Bacterial blood culture - 04/03/16 21:27 Bacterial blood culture NG NRG Capillary blood glucose measurement by glucometer (mass/volume) - 04/04/16 00: 34 Capillary blood glucose measurement by glucometer (mass/volume) 328 mg/dL 70-110 Complete blood count (CBC) with automated white blood cell (WBC) differential - 04/23/16 16:40 Blood leukocytes automated count (number/volume) 11.1 10*3/uL 4.3-11.0 Blood erythrocytes automated count (number/volume) 3.06 10*6/uL 4.35-5.85 Venous blood hemoglobin measurement (mass/volume) 9.9 g/dL 11.5-16.0 Blood hematocrit (volume fraction) 33 % 35-52 Automated erythrocyte mean corpuscular volume 108 [foz_us] 80-99 Automated erythrocyte mean corpuscular hemoglobin (mass per erythrocyte) 32 pg 25-34 Automated erythrocyte mean corpuscular hemoglobin concentration measurement ( mass/volume) 30 g/dL 32-36 Automated erythrocyte distribution width ratio 15.0 % 10.0-14.5 Automated blood platelet count (count/volume) 149 10*3/uL 130-400 Automated blood platelet mean volume measurement 13.5 [foz_us] 7.4-10.4 Automated blood neutrophils/100 leukocytes 77 % 42-75 Automated blood lymphocytes/100 leukocytes 9 % 12-44 Blood monocytes/100 leukocytes 7 % 0-12 Automated blood eosinophils/100 leukocytes 7 % 0-10 Automated blood basophils/100 leukocytes 0 % 0-10 Blood neutrophils automated count (number/volume) 8.5 10*3 1.8-7.8 Blood lymphocytes automated count (number/volume) 1.0 10*3 1.0-4.0 Blood monocytes automated count (number/volume) 0.8 10*3 0.0-1.0 Automated eosinophil count 0.7 10*3/uL 0.0-0.3 Automated blood basophil count (count/volume) 0.0 10*3/uL 0.0-0.1 Erythrocyte sedimentation rate by westergren method - 04/23/16 16:40 Erythrocyte sedimentation rate by westergren method 49 mm 0-20 Comprehensive metabolic panel - 04/23/16 16:40 Serum or plasma sodium measurement (moles/volume) 133 mmol/L 135-145 Serum or plasma potassium measurement (moles/volume) 4.8 mmol/L 3.6-5.0 Serum or plasma chloride measurement (moles/volume) 90 mmol/L 98-107 Carbon dioxide 30 mmol/L 21-32 Serum or plasma anion gap determination (moles/volume) 13 mmol/L 5-14 Serum or plasma urea nitrogen measurement (mass/volume) 18 mg/dL 7-18 Serum or plasma creatinine measurement (mass/volume) 4.52 mg/dL 0.60-1.30 Serum or plasma urea nitrogen/creatinine mass ratio 4 NRG Serum or plasma creatinine measurement with calculation of estimated glomerular filtration rate 10 NRG Serum or plasma glucose measurement (mass/volume) 265 mg/dL 70-105 Serum or plasma calcium measurement (mass/volume) 8.4 mg/dL 8.5-10.1 Serum or plasma total bilirubin measurement (mass/volume) 0.3 mg/dL 0.1-1.0 Serum or plasma alkaline phosphatase measurement (enzymatic activity/volume) 177 U/L 40-136 Serum or plasma aspartate aminotransferase measurement (enzymatic activity/ volume) 19 U/L 5-34 Serum or plasma alanine aminotransferase measurement (enzymatic activity/volume ) 22 U/L 0-55 Serum or plasma protein measurement (mass/volume) 7.6 g/dL 6.4-8.2 Serum or plasma albumin measurement (mass/volume) 3.2 g/dL 3.2-4.5 Bacteria identification in isolate by anaerobe culture - 06/19/16 13:48 Bacteria identification in isolate by anaerobe culture NOANA [facility] Gram stain microscopy - 06/19/16 13:48 Gram stain microscopy Few coryneform gram variable rods [facility] Bacteria identification in wound by culture - 06/19/16 13:48 Bacteria identification in wound by culture [id number] [facility] FREE TEXT EXTERNAL SENSITIVITY REPORTED 06/21/16 8:45 NR QUANTITY OF GROWTH Scant Growth [facility] Bacterial susceptibility panel - 06/19/16 13:48 Gentamicin susceptibility test by minimum inhibitory concentration R NRG Erythromycin susceptibility test by minimum inhibitory concentration >= NRG Vancomycin susceptibility test by minimum inhibitory concentration 1 NRG Ampicillin susceptibility test by minimum inhibitory concentration < = NRG Linezolid susceptibility test by minimum inhibitory concentration 1 NRG Complete blood count (CBC) with automated white blood cell (WBC) differential - 06/25/16 16:44 Blood leukocytes automated count (number/volume) 8.3 10*3/uL 4.3-11.0 Blood erythrocytes automated count (number/volume) 3.75 10*6/uL 4.35-5.85 Venous blood hemoglobin measurement (mass/volume) 12.7 g/dL 11.5-16.0 Blood hematocrit (volume fraction) 41 % 35-52 Automated erythrocyte mean corpuscular volume 108 [foz_us] 80-99 Automated erythrocyte mean corpuscular hemoglobin (mass per erythrocyte) 34 pg 25-34 Automated erythrocyte mean corpuscular hemoglobin concentration measurement ( mass/volume) 31 g/dL 32-36 Automated erythrocyte distribution width ratio 17.8 % 10.0-14.5 Automated blood platelet count (count/volume) 117 10*3/uL 130-400 Automated blood platelet mean volume measurement 12.6 [foz_us] 7.4-10.4 Automated blood neutrophils/100 leukocytes 71 % 42-75 Automated blood lymphocytes/100 leukocytes 21 % 12-44 Blood monocytes/100 leukocytes 5 % 0-12 Automated blood eosinophils/100 leukocytes 3 % 0-10 Automated blood basophils/100 leukocytes 0 % 0-10 Blood neutrophils automated count (number/volume) 5.9 10*3 1.8-7.8 Blood lymphocytes automated count (number/volume) 1.7 10*3 1.0-4.0 Blood monocytes automated count (number/volume) 0.4 10*3 0.0-1.0 Automated eosinophil count 0.3 10*3/uL 0.0-0.3 Automated blood basophil count (count/volume) 0.0 10*3/uL 0.0-0.1 Comprehensive metabolic panel - 06/25/16 16:44 Serum or plasma sodium measurement (moles/volume) 136 mmol/L 135-145 Serum or plasma potassium measurement (moles/volume) 5.3 mmol/L 3.6-5.0 Serum or plasma chloride measurement (moles/volume) 94 mmol/L 98-107 Carbon dioxide 30 mmol/L 21-32 Serum or plasma anion gap determination (moles/volume) 12 mmol/L 5-14 Serum or plasma urea nitrogen measurement (mass/volume) 21 mg/dL 7-18 Serum or plasma creatinine measurement (mass/volume) 5.18 mg/dL 0.60-1.30 Serum or plasma urea nitrogen/creatinine mass ratio 4 NRG Serum or plasma creatinine measurement with calculation of estimated glomerular filtration rate 9 NRG Serum or plasma glucose measurement (mass/volume) 380 mg/dL 70-105 Serum or plasma calcium measurement (mass/volume) 8.2 mg/dL 8.5-10.1 Serum or plasma total bilirubin measurement (mass/volume) 0.4 mg/dL 0.1-1.0 Serum or plasma alkaline phosphatase measurement (enzymatic activity/volume) 178 U/L 40-136 Serum or plasma aspartate aminotransferase measurement (enzymatic activity/ volume) 27 U/L 5-34 Serum or plasma alanine aminotransferase measurement (enzymatic activity/volume ) 25 U/L 0-55 Serum or plasma protein measurement (mass/volume) 7.5 g/dL 6.4-8.2 Serum or plasma albumin measurement (mass/volume) 4.0 g/dL 3.2-4.5 Erythrocyte sedimentation rate by westergren method - 06/25/16 16:44 Erythrocyte sedimentation rate by westergren method 38 mm 0-20 Hemoglobin A1c - 06/25/16 16:54 Hemoglobin A1c 7.5 % 4.5-6.2 Automated blood complete blood count (hemogram) panel - 07/24/16 09:37 Blood leukocytes automated count (number/volume) 8.4 10*3/uL 4.3-11.0 Blood erythrocytes automated count (number/volume) 3.76 10*6/uL 4.35-5.85 Venous blood hemoglobin measurement (mass/volume) 12.2 g/dL 11.5-16.0 Blood hematocrit (volume fraction) 40 % 35-52 Automated erythrocyte mean corpuscular volume 106 [foz_us] 80-99 Automated erythrocyte mean corpuscular hemoglobin (mass per erythrocyte) 32 pg 25-34 Automated erythrocyte mean corpuscular hemoglobin concentration measurement ( mass/volume) 31 g/dL 32-36 Automated erythrocyte distribution width ratio 14.9 % 10.0-14.5 Automated blood platelet count (count/volume) 105 10*3/uL 130-400 Automated blood platelet mean volume measurement 13.3 [foz_us] 7.4-10.4 PT panel in platelet poor plasma by coagulation assay - 07/24/16 09:37 Prothrombin time (PT) in platelet poor plasma by coagulation assay 13.1 s 12.2-14.7 INR in platelet poor plasma or blood by coagulation assay 1.0 0.8-1.4 Activated partial thromboplastin time (aPTT) in platelet poor plasma bycoagulation assay - 07/24/16 09:37 Activated partial thromboplastin time (aPTT) in platelet poor plasma bycoagulation assay 32 s 24-35 Comprehensive metabolic panel - 07/24/16 09:37 Serum or plasma sodium measurement (moles/volume) 137 mmol/L 135-145 Serum or plasma potassium measurement (moles/volume) 4.6 mmol/L 3.6-5.0 Serum or plasma chloride measurement (moles/volume) 93 mmol/L 98-107 Carbon dioxide 29 mmol/L 21-32 Serum or plasma anion gap determination (moles/volume) 15 mmol/L 5-14 Serum or plasma urea nitrogen measurement (mass/volume) 34 mg/dL 7-18 Serum or plasma creatinine measurement (mass/volume) 6.85 mg/dL 0.60-1.30 Serum or plasma urea nitrogen/creatinine mass ratio 5 NRG Serum or plasma creatinine measurement with calculation of estimated glomerular filtration rate 6 NRG Serum or plasma glucose measurement (mass/volume) 208 mg/dL 70-105 Serum or plasma calcium measurement (mass/volume) 9.0 mg/dL 8.5-10.1 Serum or plasma total bilirubin measurement (mass/volume) 0.3 mg/dL 0.1-1.0 Serum or plasma alkaline phosphatase measurement (enzymatic activity/volume) 163 U/L 40-136 Serum or plasma aspartate aminotransferase measurement (enzymatic activity/ volume) 32 U/L 5-34 Serum or plasma alanine aminotransferase measurement (enzymatic activity/volume ) 46 U/L 0-55 Serum or plasma protein measurement (mass/volume) 7.3 g/dL 6.4-8.2 Serum or plasma albumin measurement (mass/volume) 3.6 g/dL 3.2-4.5 Lipid 1996 panel - 07/24/16 09:37 Serum or plasma triglyceride measurement (mass/volume) 174 mg/dL <150 Serum or plasma cholesterol measurement (mass/volume) 106 mg/dL < 200 Serum or plasma cholesterol in HDL measurement (mass/volume) 28 mg/ dL 40-60 Cholesterol in LDL [mass/volume] in serum or plasma by direct assay 48 mg/dL 1-129 Serum or plasma cholesterol in VLDL measurement (mass/volume) 35 mg/ dL 5-40 Methicillin resistant Staphylococcus aureus (MRSA) screening culture - 09:37 Methicillin resistant Staphylococcus aureus (MRSA) screening culture NEG NRG Bacteria identification in isolate by anaerobe culture - 08/02/16 13:40 Bacteria identification in isolate by anaerobe culture NOANA NRG Gram stain microscopy - 08/02/16 13:40 GRAM STAIN RESULT NO BACTERIA NRG Bacteria identification in wound by culture - 08/02/16 13:40 Bacteria identification in wound by culture [id number] NRG FREE TEXT EXTERNAL (NOT JK) NRG QUANTITY OF GROWTH Scant Growth NRG FREE TEXT ENTRY 2 NO FURTHER STUDIES UNLESS REQUESTED NRG Bacterial susceptibility panel - 08/02/16 13:40 Gentamicin susceptibility test by minimum inhibitory concentration R NRG Erythromycin susceptibility test by minimum inhibitory concentration >= NRG Vancomycin susceptibility test by minimum inhibitory concentration 1 NRG Ampicillin susceptibility test by minimum inhibitory concentration < = NRG Linezolid susceptibility test by minimum inhibitory concentration 2 NRG Bacteria identification in isolate by anaerobe culture - 09/13/16 14:01 Bacteria identification in isolate by anaerobe culture NOANA NRG Gram stain microscopy - 09/13/16 14:01 GRAM STAIN RESULT RARE GRAM POSITIVE DEMOND NRG Bacteria identification in wound by culture - 09/13/16 14:01 Bacteria identification in wound by culture [id number] NRG FREE TEXT EXTERNAL PLEASE NOTIFY MICRO AT EXT 141 IF NRG QUANTITY OF GROWTH Scant Growth NRG FREE TEXT ENTRY 2 SENSITIVITY IS NEEDED ON THIS ISOLATE NRG Bacterial susceptibility panel - 09/13/16 14:01 Gentamicin susceptibility test by minimum inhibitory concentration R NRG Erythromycin susceptibility test by minimum inhibitory concentration >= NRG Vancomycin susceptibility test by minimum inhibitory concentration 1 NRG Ampicillin susceptibility test by minimum inhibitory concentration < = NRG Linezolid susceptibility test by minimum inhibitory concentration 2 NRG Lower Respiratory Culture - 11/09/16 15:02 Lower Respiratory Culture Note Bacteria identification in isolate by anaerobe culture - 11/29/16 13:38 Bacteria identification in isolate by anaerobe culture NOANA NRG Gram stain microscopy - 11/29/16 13:38 GRAM STAIN RESULT NO WBC'S OR BACTERIA OBSERVED NRG Bacteria identification in wound by culture - 11/29/16 13:38 Bacteria identification in wound by culture [id number] NR FREE TEXT EXTERNAL RML ID: CORYNEFORM BACTERIA, NRG QUANTITY OF GROWTH Isolated NRG FREE TEXT ENTRY 2 PROBABLE ARTHOBACTER SPECIES NRG FREE TEXT ENTRY 3 SENSITIVITY REPORTED 12/11/16 11:15 NR Bacterial susceptibility panel - 11/29/16 13:38 Oxacillin susceptibility test by minimum inhibitory concentration 0.5 NRG Gentamicin susceptibility test by minimum inhibitory concentration < = NRG Clindamycin susceptibility test by minimum inhibitory concentration 4 NRG Erythromycin susceptibility test by minimum inhibitory concentration >= NRG Trimethoprim/sulfamethoxazole susceptibility test by minimum inhibitoryconcentration 160 NRG Vancomycin susceptibility test by minimum inhibitory concentration 1 NRG Levofloxacin susceptibility test by minimum inhibitory concentration >= NRG Rifampin susceptibility test by minimum inhibitory concentration <= NRG Tetracycline susceptibility test by minimum inhibitory concentration <= NRG Ciprofloxacin susceptibility test by minimum inhibitory concentration R NRG CBC With Differential/Platelet - 12/07/16 12:18 WBC 7.4 x10E3/uL 3.4-10.8 RBC 3.39 x10E6/uL 3.77-5.28 Hemoglobin 11.1 g/dL 11.1-15.9 Hematocrit 34.5 % 34.0-46.6 MCV 102 fL 79-97 MCH 32.7 pg 26.6-33.0 MCHC 32.2 g/dL 31.5-35.7 RDW 15.0 % 12.3-15.4 Platelets 115 x10E3/uL 150-379 Neutrophils 65 % Lymphs 26 % Monocytes 5 % Eos 4 % Basos 0 % Neutrophils (Absolute) 4.8 x10E3/uL 1.4-7.0 Lymphs (Absolute) 1.9 x10E3/uL 0.7-3.1 Monocytes(Absolute) 0.4 x10E3/uL 0.1-0.9 Eos (Absolute) 0.3 x10E3/uL 0.0-0.4 Baso (Absolute) 0.0 x10E3/uL 0.0-0.2 Immature Granulocytes 0 % Immature Grans (Abs) 0.0 x10E3/uL 0.0-0.1 Hematology Comments: Note: Comp. Metabolic Panel (14) - 12/07/16 12:18 Glucose, Serum 359 mg/dL 65-99 BUN 31 mg/dL 6-24 Creatinine, Serum 6.23 mg/dL 0.57-1.00 eGFR If NonAfricn Am 7 mL/min/1.73 >59 eGFR If Africn Am 8 mL/min/1.73 >59 BUN/Creatinine Ratio 5 9-23 Sodium, Serum 137 mmol/L 134-144 Potassium, Serum 4.9 mmol/L 3.5-5.2 Chloride, Serum 89 mmol/L 96-106 Carbon Dioxide, Total 28 mmol/L 18-29 Calcium, Serum 8.6 mg/dL 8.7-10.2 Protein, Total, Serum 6.5 g/dL 6.0-8.5 Albumin, Serum 3.8 g/dL 3.5-5.5 Globulin, Total 2.7 g/dL 1.5-4.5 A/G Ratio 1.4 1.2-2.2 Bilirubin, Total 0.3 mg/dL 0.0-1.2 Alkaline Phosphatase, S 185 IU/L 39-117 AST (SGOT) 17 IU/L 0-40 ALT (SGPT) 20 IU/L 0-32 Lipid Panel - 12/07/16 12:18 Cholesterol, Total 108 mg/dL 100-199 Triglycerides 176 mg/dL 0-149 HDL Cholesterol 30 mg/dL >39 VLDL Cholesterol Aj 35 mg/dL 5-40 LDL Cholesterol Calc 43 mg/dL 0-99 TSH - 12/07/16 12:18 TSH 3.420 uIU/mL 0.450-4.500 C-Reactive Protein, Cardiac - 12/07/16 12:18 C-Reactive Protein, Cardiac 12.74 mg/L 0.00-3.00 B-Type Natriuretic Peptide - 12/07/16 12:18 B-Type Natriuretic Peptide 92.7 pg/mL 0.0-100.0 CBC - 12/07/16 12:18 WBC 7.4 x10E3/uL 3.4-10.8 RBC 3.39 x10E6/uL 3.77-5.28 Hemoglobin 11.1 g/dL 11.1-15.9 Hematocrit 34.5 % 34.0-46.6 MCV 102 fL 79-97 MCH 32.7 pg 26.6-33.0 MCHC 32.2 g/dL 31.5-35.7 RDW 15.0 % 12.3-15.4 Platelets 115 x10E3/uL 150-379 Neutrophils 65 % NRG Lymphs 26 % NRG Monocytes 5 % NRG Eos 4 % NRG Basos 0 % NRG Neutrophils (Absolute) 4.8 x10E3/uL 1.4-7.0 Lymphs (Absolute) 1.9 x10E3/uL 0.7-3.1 Monocytes(Absolute) 0.4 x10E3/uL 0.1-0.9 Eos (Absolute) 0.3 x10E3/uL 0.0-0.4 Baso (Absolute) 0.0 x10E3/uL 0.0-0.2 Immature Granulocytes 0 % NRG Immature Grans (Abs) 0.0 x10E3/uL 0.0-0.1 Hematology Comments: Note: NRG Bacteria identification in isolate by anaerobe culture - 01/31/17 14:49 Bacteria identification in isolate by anaerobe culture NOANA NRG Gram stain microscopy - 01/31/17 14:49 GRAM STAIN RESULT NO WBC'S OR BACTERIA OBSERVED NRG Bacteria identification in wound by culture - 01/31/17 14:49 Bacteria identification in wound by culture [id number] [facility] FREE TEXT EXTERNAL SENSITIVITY REPORTED 02/03 10:33 NRG QUANTITY OF GROWTH Scant Growth NR Bacterial susceptibility panel - 01/31/17 14:49 Oxacillin susceptibility test by minimum inhibitory concentration < = NRG Gentamicin susceptibility test by minimum inhibitory concentration < = NRG Clindamycin susceptibility test by minimum inhibitory concentration <= NRG Erythromycin susceptibility test by minimum inhibitory concentration >= NRG Trimethoprim/sulfamethoxazole susceptibility test by minimum inhibitoryconcentration <= NRG Vancomycin susceptibility test by minimum inhibitory concentration < = NRG Levofloxacin susceptibility test by minimum inhibitory concentration <= NRG Rifampin susceptibility test by minimum inhibitory concentration <= NRG Tetracycline susceptibility test by minimum inhibitory concentration <= NRG Complete blood count (CBC) with automated white blood cell (WBC) differential - 12/18/17 19:40 Blood leukocytes automated count (number/volume) 7.7 10*3/uL 4.3-11.0 Blood erythrocytes automated count (number/volume) 2.93 10*6/uL 4.35-5.85 Venous blood hemoglobin measurement (mass/volume) 9.9 g/dL 11.5-16.0 Blood hematocrit (volume fraction) 31 % 35-52 Automated erythrocyte mean corpuscular volume 105 [foz_us] 80-99 Automated erythrocyte mean corpuscular hemoglobin (mass per erythrocyte) 34 pg 25-34 Automated erythrocyte mean corpuscular hemoglobin concentration measurement ( mass/volume) 32 g/dL 32-36 Automated erythrocyte distribution width ratio 15.0 % 10.0-14.5 Automated blood platelet count (count/volume) 143 10*3/uL 130-400 Automated blood platelet mean volume measurement 12.8 [foz_us] 7.4-10.4 Automated blood neutrophils/100 leukocytes 75 % 42-75 Automated blood lymphocytes/100 leukocytes 15 % 12-44 Blood monocytes/100 leukocytes 6 % 0-12 Automated blood eosinophils/100 leukocytes 3 % 0-10 Automated blood basophils/100 leukocytes 0 % 0-10 Blood neutrophils automated count (number/volume) 5.8 10*3 1.8-7.8 Blood lymphocytes automated count (number/volume) 1.2 10*3 1.0-4.0 Blood monocytes automated count (number/volume) 0.5 10*3 0.0-1.0 Automated eosinophil count 0.3 10*3/uL 0.0-0.3 Automated blood basophil count (count/volume) 0.0 10*3/uL 0.0-0.1 PT panel in platelet poor plasma by coagulation assay - 12/18/17 19:40 Prothrombin time (PT) in platelet poor plasma by coagulation assay 13.4 s 12.2-14.7 INR in platelet poor plasma or blood by coagulation assay 1.0 0.8-1.4 Activated partial thromboplastin time (aPTT) in platelet poor plasma bycoagulation assay - 12/18/17 19:40 Activated partial thromboplastin time (aPTT) in platelet poor plasma bycoagulation assay 31 s 24-35 Blood lactic acid measurement (moles/volume) - 12/18/17 19:40 Blood lactic acid measurement (moles/volume) 1.37 mmol/L 0.50-2.00 Comprehensive metabolic panel - 12/18/17 19:40 Serum or plasma sodium measurement (moles/volume) 138 mmol/L 135-145 Serum or plasma potassium measurement (moles/volume) 6.3 mmol/L 3.6-5.0 Serum or plasma chloride measurement (moles/volume) 96 mmol/L 98-107 Carbon dioxide 25 mmol/L 21-32 Serum or plasma anion gap determination (moles/volume) 17 mmol/L 5-14 Serum or plasma urea nitrogen measurement (mass/volume) 74 mg/dL 7-18 Serum or plasma urea nitrogen/creatinine mass ratio 9 NRG Serum or plasma creatinine measurement with calculation of estimated glomerular filtration rate 5 NRG Serum or plasma glucose measurement (mass/volume) 290 mg/dL 70-105 Serum or plasma calcium measurement (mass/volume) 9.0 mg/dL 8.5-10.1 Serum or plasma total bilirubin measurement (mass/volume) 0.5 mg/dL 0.1-1.0 Serum or plasma alkaline phosphatase measurement (enzymatic activity/volume) 114 U/L 40-136 Serum or plasma aspartate aminotransferase measurement (enzymatic activity/ volume) 57 U/L 5-34 Serum or plasma alanine aminotransferase measurement (enzymatic activity/volume ) 72 U/L 0-55 Serum or plasma protein measurement (mass/volume) 7.1 g/dL 6.4-8.2 Serum or plasma albumin measurement (mass/volume) 3.8 g/dL 3.2-4.5 CALCIUM CORRECTED 9.2 mg/dL 8.5-10.1 Encounters ACCT No. Visit Date/Time Discharge Status Pt. Type Provider Facility Loc./Unit Complaint [id number] 07/21/2014 14:45:00 07/21/2014 23:59:59 [facility] Outpatient MCKENNA HEBERT APRN [id number] 06/21/2014 14:43:00 06/21/2014 23:59:59 [facility] Outpatient MCKENNA HEBERT APRN [id number] 04/23/2014 10:28:00 04/23/2014 23:59:59 [facility]patient MCKENNA HEBERT APRN [id number] 04/23/2014 10:28:00 04/23/2014 23:59:59 [facility] Outpatient MCKENNA HEBERT APRN [id number] 03/03/2014 10:09:00 03/03/2014 23:59:59 [facility] Outpatient MCKENNA HEBERT APRN [id number] 02/19/2014 10:28:00 02/19/2014 23:59:59 [facility] Outpatient MCKENNA HEBERT APRN [id number] 02/01/2014 10:22:00 02/01/2014 23:59:59 [facility] Outpatient MCKENNA HEBERT APRN [id number] 01/08/2014 11:26:00 01/08/2014 23:59:59 [facility] Outpatient GIACOMO SANDOVAL MD [id number] 12/30/2013 15:01:00 12/30/2013 23:59:59 [facility] Outpatient MCKENNA HEBERT APRN [id number] 12/30/2013 15:01:00 12/30/2013 23:59:59 [facility] Outpatient MCKENNA HEBERT APRN [id number] 12/04/2013 09:15:00 12/04/2013 23:59:59 [facility] Outpatient MCKENNA HEBERT APRN [id number] 11/27/2013 12:11:00 11/27/2013 23:59:59 [facility] Outpatient MCKENNA HEBERT APRN [id number] 11/27/2013 12:11:00 11/27/2013 23:59:59 [facility] Outpatient MCKENNA HEBERT APRN [id number] 09/28/2013 09:05:00 09/28/2013 23:59:59 [facility] Outpatient MCKENNA HEBERT APRN [id number] 09/09/2013 17:41:00 09/09/2013 23:59:59 CLS Outpatient GIACOMO SANDOVAL MD [id number] 08/28/2013 09:44:00 08/28/2013 23:59:59 [facility] Outpatient MCKENNA HEBERT APRN [id number] 07/06/2013 15:21:00 07/06/2013 23:59:59 [facility] Outpatient MCKENNA HEBERT APRN [id number] 06/22/2013 15:15:00 06/22/2013 23:59:59 CLS Outpatient GIACOMO SANDOVAL MD [id number] 06/22/2013 15:15:00 06/22/2013 23:59:59 [facility] Outpatient GIACOMO SANDOVAL MD [id number] 05/13/2013 13:11:00 05/13/2013 23:59:59 [facility] Outpatient MCKENNA HEBERT APRN [id number] 04/27/2013 09:15:00 04/27/2013 23:59:59 [facility] Outpatient MCKENNA HEBERT APRN [id number] 03/30/2013 09:20:00 03/30/2013 23:59:59 [facility] Outpatient MCKENNA HEBERT APRN [id number] 03/30/2013 09:20:00 03/30/2013 23:59:59 [facility] Outpatient MCKENNA HEBERT APRN [id number] 03/04/2013 15:11:00 03/04/2013 23:59:59 [facility] Outpatient MILEY FUNES APRN [id number] 03/02/2013 08:06:00 03/02/2013 23:59:59 CLS Outpatient GIACOMO SANDOVAL MD [id number] 02/04/2013 09:41:00 02/04/2013 23:59:59 CLS Outpatient ZAINA HURTADO DO [id number] 01/22/2013 09:52:00 01/22/2013 23:59:59 CLS Outpatient JONNIE ADORNO MD [id number] 12/26/2012 09:37:00 12/26/2012 23:59:59 [facility] Outpatient MCKENNA HEBERT APRN [id number] 12/26/2012 09:37:00 12/26/2012 23:59:59 [facility] Outpatient MCKENNA HEBERT APRN [id number] 06/20/2012 09:05:00 06/20/2012 23:59:59 CLS Outpatient [id number] 06/04/2012 09:15:00 06/04/2012 23:59:59 CLS Outpatient [id number] 05/20/2012 14:04:00 05/20/2012 23:59:59 [facility] Outpatient MCKENNA HEBERT APRN [id number] 05/07/2012 08:50:00 05/07/2012 23:59:59 [facility] Outpatient [id number] 12/08/2012 09:09:00 Document Registration [id number] 10/29/2012 11:49:00 Document Registration [id number] 10/01/2012 09:12:00 Document Registration [id number] 09/18/2012 07:34:00 Document Registration [id number] 09/09/2012 09:07:00 Document Registration [id number] 09/03/2012 07:48:00 Document Registration [id number] 08/19/2012 09:37:00 Document Registration [id number] 08/15/2012 09:23:00 Document Registration [id number] 07/16/2012 11:03:00 Document Registration [id number] 12/09/2016 22:06:00 Document Registration [id number] 10/17/2017 13:30:00 10/17/2017 23:59:59 C[facility] Outpatient MCKENNA HEBERT APRN [facility] [id number] 12/07/2016 12:00:00 Document Registration [id number] 12/10/2017 13:05:00 12/10/2017 23:59:59 CLS Outpatient MCKENNA HEBERT HILDA [facility] BKA [id number] 03/21/2017 12:31:00 03/21/2017 23:59:59 CLS Outpatient GUNNER LORETTA R [employer] [facility] [id number] 03/14/2017 12:44:00 03/14/2017 23:59:59 CLS Outpatient GUNNER, LORETTA R [employer] DEVELOPER [facility] [id number] 03/07/2017 12:46:00 03/07/2017 23:59:59 CLS Outpatient GUNNER, LORETTA R [employer] DEVELOPER [facility] [id number] 02/28/2017 13:19:00 02/28/2017 23:59:59 CLS Outpatient GUNNER LORETTA R [employer] [facility] [id number] 02/14/2017 13:13:00 02/14/2017 23:59:59 CLS Outpatient GUNNER, LORETTA R WE[employer] DEVELOPER [facility] [id number] 02/07/2017 13:15:00 02/07/2017 23:59:59 CLS Outpatient GUNNER, LORETTA R [employer] DEVELOPER [facility] [id number] 01/31/2017 13:25:00 01/31/2017 23:59:59 CLS Outpatient GUNNER, LORETTA R WE[employer] DEVELOPER [facility] [id number] 01/24/2017 12:49:00 01/24/2017 23:59:59 CLS Outpatient GUNNER, LORETTA R [employer] DEVELOPER [facility] [id number] 01/17/2017 12:42:00 01/17/2017 23:59:59 CLS Outpatient GUNNER, LORETTA R WE[employer] DEVELOPER [facility] [id number] 01/15/2017 12:22:00 01/15/2017 23:59:59 CLS Outpatient ALDA FERRARO Mando STEVENS [facility] CARD I51.7 [id number] 01/10/2017 12:56:00 01/10/2017 23:59:59 CLS Outpatient GUNNER, LORETTA R [employer] DEVELOPER [facility] [id number] 12/27/2016 13:14:00 12/27/2016 23:59:59 CLS Outpatient GUNNER, LORETTA R [employer] DEVELOPER [facility] [id number] 12/25/2016 00:11:00 12/25/2016 23:59:59 CLS Preadmit GUNNER, LORETTA R WE[employer] DEVELOPER [facility] RIGHT FOOT WOUND [id number] 09/26/2016 12:45:00 12/24/2016 00:01:00 DIS Outpatient GUNNER, LORETTA R WE[employer] DEVELOPER [facility] RIGHT FOOT WOUND [id number] 12/20/2016 12:22:00 12/20/2016 23:59:59 CLS Outpatient GUNNER, LORETTA R [employer] DEVELOPER [facility] [id number] 12/13/2016 13:08:00 12/13/2016 23:59:59 CLS Outpatient GUNNER, LORETTA R WE[employer] DEVELOPER [facility] [id number] 12/06/2016 13:04:00 12/06/2016 23:59:59 CLS Outpatient GUNNER, LORETTA R [employer] DEVELOPER [facility] [id number] 11/29/2016 13:16:00 11/29/2016 23:59:59 CLS Outpatient GUNNER, LORETTA R [employer] DEVELOPER [facility] [id number] 11/22/2016 12:50:00 11/22/2016 23:59:59 CLS Outpatient GUNNER, LORETTA R [employer] DEVELOPER [facility] [id number] 11/15/2016 13:47:00 11/15/2016 23:59:59 CLS Outpatient GUNNER, LORETTA R [employer] DEVELOPER [facility] [id number] 11/01/2016 13:27:00 11/01/2016 23:59:59 CLS Outpatient GUNNER, LORETTA R [employer] DEVELOPER [facility] [id number] 10/18/2016 13:18:00 10/29/2016 16:00:00 DIS Outpatient GUNNER, LORETTA R [employer] DEVELOPER [facility] [id number] 09/13/2016 13:06:00 09/17/2016 00:01:00 DIS Outpatient GUNNER LORETTAIssa Chakraborty APRN [facility] [id number] 07/24/2016 07:16:00 07/24/2016 17:15:00 DIS Outpatient ALDA FERRARO [facility] CATH PVD,LEG DISCOMFORT, CAD,CKD,PAD,DM [id number] 06/25/2016 15:43:00 06/25/2016 23:59:59 CLS Outpatient PIETER POOLE MD [facility] RAD TYPE 2 DIABETES, END STAGE RENAL DISEASE [id number] 03/27/2016 14:14:00 04/30/2016 08:45:00 DIS Outpatient MCKENNA HEBERT [facility] S/P L BKA [id number] 04/23/2016 17:40:00 04/23/2016 23:59:59 CLS Outpatient VIKKI KWOK MD [facility] HH CELLULITIS RIGHT FOOT [id number] 04/03/2016 20:25:00 04/04/2016 01:00:00 DIS Emergency LORI PENALOZA DO [facility] ER FOOT SORE/SWELLING [id number] 09/30/2015 23:48:00 10/02/2015 23:31:00 DIS Inpatient ZAINA HURTADO DO [facility] ICU CP;UNCONTROLLED DM;ESRD ON DIALYSIS;CAD [id number] 04/22/2015 21:23:00 04/23/2015 01:38:00 DIS Emergency MCKENNA BARRON DO [facility] ER CP [id number] 03/23/2015 06:28:00 03/23/2015 08:57:00 DIS Emergency VERA HERNÁNDEZ MD [facility] ER NAUSEA VOMITING [id number] 03/20/2015 14:47:00 03/20/2015 19:12:00 DIS Emergency ROMANA BRAN [facility] ER L LEG PAIN/FALL [id number] 01/14/2015 21:55:00 01/15/2015 13:40:00 DIS Inpatient GENESIS ZAINA TOBAR Ramos [facility] CSD CHEST PAIN;UNCONTROLLED HTN AND DIABETES; [id number] 01/14/2015 09:37:00 01/14/2015 11:35:00 DIS Emergency ARLETTE DURÁN MD [facility] ER CHEST PAIN [id number] 11/08/2014 21:53:00 11/09/2014 01:57:00 DIS Emergency ARLETTE DURÁN MD [facility] ER SOA [id number] 10/19/2014 05:50:00 10/19/2014 09:30:00 DIS Emergency ARLETTE DURÁN MD [facility] ER SOB [id number] 08/01/2014 20:55:00 08/01/2014 23:05:00 DIS Emergency PIETER RAMSEY, MIRTA Enciso [facility] ER SOB [id number] 07/31/2014 21:27:00 07/31/2014 23:06:00 DIS Emergency TREMAINE LORI K [facility] ER CHEST PAIN [id number] 07/09/2014 20:58:00 07/10/2014 00:25:00 DIS Emergency TREMAINELORI Garner DO [facility] ER L ARM PAIN VOMITING [id number] 04/10/2014 05:41:00 04/10/2014 06:53:00 DIS Emergency EDGAR RAMSEY, VERA Brown [facility] ER SOA;CHEST PAIN WHEN BREATHING [id number] 11/05/2013 21:40:00 11/21/2013 09:30:00 DIS Inpatient ILENE RAMSEY, FRANCOISE Oreilly [facility] IRF WEAKNESS,BKA [id number] 10/14/2013 20:38:00 10/15/2013 11:15:00 DIS Outpatient KATHRINE RAMSEY, BARON Lane [facility] CATH GANGREEN LEFT FORE FOOT [id number] 10/01/2013 07:13:00 10/01/2013 08:55:00 DIS Emergency TANVIR BOSS MD [facility] ER SOA [id number] 07/08/2013 12:47:00 07/08/2013 15:39:00 DIS Emergency LORI PENALOZA DO [facility] ER LOW BLOOD SUGAR [id number] 06/14/2013 00:58:00 06/19/2013 14:50:00 DIS Inpatient ZAINA HURTADO DO [facility] 4TH PNEUMONIA;HYPOXIA;ASTHMA EXACERBATION; [id number] 03/05/2013 08:08:00 03/05/2013 23:59:59 CLS Outpatient [id number] 12/29/2012 13:49:00 12/29/2012 16:00:00 DIS Emergency CRYSTAL MATTA APRN [facility] ER HYPOGLYCEMIA [id number] 11/14/2012 23:55:00 11/19/2012 13:05:00 DIS Inpatient GIACOMO SANDOVAL MD [facility] 4TH ACUTE ASTHMA EXACERBATION [id number] 10/30/2012 09:25:00 10/30/2012 23:59:59 CLS Outpatient [id number] 10/07/2012 13:25:00 10/07/2012 23:59:59 CLS Outpatient [id number] 08/15/2012 19:03:00 08/15/2012 21:28:00 DIS Emergency [id number] 12/18/2017 19:58:00 Document Registration [id number] 04/10/2014 05:41:00 Document Registration [id number] 06/09/2012 21:55:00 Document Registration [id number] 04/21/2012 23:40:00 Document Registration [id number] 04/22/2011 21:11:00 Document Registration [id number] 04/09/2011 19:09:00 Document Registration [id number] 04/05/2011 13:32:00 Document Registration [id number] 03/19/2011 10:57:00 Document Registration [id number] 02/26/2011 11:49:00 Document Registration [id number] 02/26/2011 11:44:00 Document Registration [id number] 01/12/2011 00:00:00 Document Registration [id number] 08/31/2010 12:47:00 Document Registration [id number] 08/27/2010 07:40:00 Document Registration [id number] 08/25/2010 21:07:00 Document Registration [id number] 05/16/2010 02:15:00 Document Registration [id number] 04/11/2010 16:35:00 Document Registration [id number] 08/27/2009 22:17:00 Document Registration [id number] 11/08/2014 21:54:03 ACT Document Registration [id number] 11/12/2016 14:08:00 Document Registration
--- NOTE | 2017-12-18 20:45 | Diagnostic Imaging Report ---
INDICATION: Shortness of air. COMPARISON: 10/01/2015. EXAMINATION: Single view of the chest was obtained. FINDINGS: There is a poor inspiratory volume. This in conjunction with portable AP technique and body habitus limits radiographic sensitivity for evaluating the lungs. Enlargement of the cardiac silhouette is not convincingly changed. There is some mild prominence of the central vascularity but this also is not grossly changed. No giovany alveolar consolidation, effusion or pneumothorax. IMPRESSION: Body habitus limits radiographic sensitivity. Cardiomegaly showed no definite change. Dictated by: Dictated on workstation # [id number]
[2017-12-18] MEDS ORDERED: fentaNYL INJECTION 100 MCG/2 ML AMP IVP ONE (21:30)
[2017-12-18] MEDS ORDERED: PIPERACILLIN SODIUM/TAZOBACTAM 4.5 GM in NS (IVPB) 100 ML IV ONE (22:00)
[2017-12-18] MEDS ORDERED: VANCOMYCIN INJECTION 1,000 MG in NS (IVPB) 250 ML IV ONE (22:15)
[2017-12-18 23:47] VITALS: BP 111/60
== END 2017-12-18 23:47 | disposition short-term general hospital (02) ==
LOC: EDUNIT# 19:34 → ER 19:35
DX: J18.9 Pneumonia, unspecified organism (principal); E11.22 Type 2 diabetes mellitus with diabetic chronic kidney disease; I12.0 Hypertensive chronic kidney disease with stage 5 chronic kidney disease or end stage renal disease; N18.6 End stage renal disease; E87.70 Fluid overload, unspecified; J43.9 Emphysema, unspecified; I25.10 Atherosclerotic heart disease of native coronary artery without angina pectoris; E78.00 Pure hypercholesterolemia, unspecified; I73.9 Peripheral vascular disease, unspecified; G43.909 Migraine, unspecified, not intractable, without status migrainosus; Z88.7 Allergy status to serum and vaccine; Z87.19 Personal history of other diseases of the digestive system; Z91.048 Other nonmedicinal substance allergy status; Z99.2 Dependence on renal dialysis; Z79.82 Long term (current) use of aspirin; Z79.02 Long term (current) use of antithrombotics/antiplatelets; Z79.51 Long term (current) use of inhaled steroids; Z79.4 Long term (current) use of insulin; Z77.22 Contact with and (suspected) exposure to environmental tobacco smoke (acute) (chronic); Z96.652 Presence of left artificial knee joint; Z98.890 Other specified postprocedural states; Z90.710 Acquired absence of both cervix and uterus; Z93.0 Tracheostomy status
CPT/HCPCS: 36415; 71045; 80053; 83605; 83880; 85025; 85610; 85730; 87040; 93005; 94640; 94660; 96365; 96367; 96375

== ENCOUNTER 2018-03-12 21:08 | Emergency (ER) | payer MEDICARE, MEDICAID ==
[~2018-03-12] VITALS: Ht 162.6 cm; Wt 163.3 kg
--- OUTSIDE RECORDS SUMMARY | 2018-03-12 21:14 | XMS REPORT | Clinical Summary ---
Author Author [facility] Organization [facility] Address Unknown Phone Unavailable Care Team Providers Care Stitch Welder Name Role Phone Mario Carver MD PCP Unavailable Source Comments Some departments are not documenting in the electronic medical record. If you do not see the information that you expected, contact Release of Information in the Health Information Management department at [phone] for further assistance in locating additional records.[facility] Allergies Not on File Medications Not on file Active Problems Not on file Social History Date Tobacco Use Types Packs/Day Years Used Never Assessed Sex Assigned at Date Recorded Not on file Industry Job Start Date Occupation Not on file Not on file Not on file Travel End Travel History Travel Start No recent travel history available. Last Filed Vital Signs Not on file Plan of Treatment Health Maintenance Due Date Last Done Comments PHYSICAL (COMPREHENSIVE) 09/15/1974 EXAM HIV SCREENING 09/15/1982 DTAP/TDAP VACCINES ( - 09/15/1985 Tdap) CERVICAL CANCER SCREENING 09/15/1997 BREAST CANCER SCREENING 2007 COLORECTAL CANCER 09/15/2017 SCREENING SHINGLES RECOMBINANT 09/15/2017 VACCINE (1 of 2) INFLUENZA VACCINE 10/30/2017 Results Not on filefrom Last 3 Months Insurance Payer Benefit Subscriber ID Type Phone Address Plan / Group MEDICARE MEDICARE xxxxxxxxxx Medicare PART A AND B MEDICARE MEDICARE xxxxxxxxxx Medicare [employer] [place] [facility] Medicaid Thea Gill Transplant Self [address] ([place]) [place] [address] Advance Directives Patient has advance care planning documents on file. For more information, please contact: [place] [address] Kellie Kim [address] [place] [address]
[2018-03-12] MEDS ORDERED: RT-ALBUTEROL/IPRATROPIUM 3 ML (DUONEB) VIAL INH ONE (21:15)
--- OUTSIDE RECORDS SUMMARY | 2018-03-12 21:15 | XMS REPORT ---
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 Name Role Phone MCKENNA HEBERT Unavailable PROBLEMS Type Condition ICD9-CM Code CCW65-PC Code Onset Dates Condition Status SNOMED Code Problem Intra-dialytic hypotension I95.3 Active 004572571 Problem Seasonal allergic rhinitis due to other allergic trigger J30.89 Active 247668606 Problem Chronic congestive heart failure, unspecified congestive heart failure type I50.9 Active 92119812 Problem Self-care deficit for toileting R46.0 Active 604590036 Problem Primary insomnia F51.01 Active 6416676 Problem Angina pectoris I20.9 Active 275300589 Problem Chronic congestive heart failure, unspecified heart failure type I50.9 Active 06127333 Problem 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 Active 5646083 Problem Other chronic pain G89.29 Active 47856865 Problem Diabetes type 2, controlled E11.9 Active 81998310 Problem Renal failure N19 Active 22488458 Problem Neuropathy G62.9 Active 382051109 Problem Cellulitis of right lower extremity L03.115 Active 998790983 Problem Amput below knee, unilat S88.119A Active 09783196 ALLERGIES No Information ENCOUNTERS Encounter Location Date Diagnosis [facility] [id number] [address] Jan, [facility] [id number] [address] 2099 Jan, [facility] [address] [address] 7964 Dec, [facility] [id number] [address] 9204 Dec, [facility] [address] [place] [address] 64223- 5535 Dec, [facility] [id number] [place] [address] 31107- 7931 Nov, Pneumonia due to infectious organism, unspecified laterality , unspecified part of lung J18.9 and Self-care deficit for toileting R46.0 [facility] [id number] [place] [address] 11108- 5193 Nov, [facility] [address] [address]- [address] Oct, Diabetes type 2, controlled E11.9 ; Primary insomnia F51.01 and Bilateral headaches R51 [facility] [id number] [place] [address] 67607- 3178 Oct, [facility] [id number] [place] [address] 15125- 5870 Sep, [facility] [address] [id number] Sep, Dental examination Z01.20 and Dental caries K02.9 [facility] [id number] [place] [address] 20637- 6236 Sep, [facility] [id number] [place] [address] 90767- 0165 Sep, [facility] [address] [place] [address] 48362- 4192 Sep, Other chronic pain G89.29 and Pain in right knee M25.561 [facility] [id number] [place] [address] 72495- 1653 Sep, [facility] [id number] [place] [address] 27196- 4009 Aug, [facility] [id number] [place] [address] 38409- 5583 Aug, 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 [facility] [address] [place] [address]- 0648 15 Aug, 2017 [facility] [address], [place] [address]- 8227 11 Aug, 2017 Diabetes type 2, controlled E11.9 and Acute pain of right knee M25.561 [facility] [address], [place] [address]- 2185 Aug, [facility] [address], [place] [address]- 2831 July, [facility] [address], [place] [address]- 7627 16 Jun, 2017 [facility] [address], [place] [address]- 1026 Jun, [facility] [address] [address]- 9764 Jun, Diabetes type 2, controlled E11.9 [facility] [address], [place] [address]- 9584 Jun, [facility] [address], [place] [address]- 0147 May, [facility] [address], [place] [address]- 9592 May, [facility] [address] [address]- 4849 May, [facility] [address], [place] [address]- 2552 May, Chronic congestive heart failure, unspecified congestive heart failure type I50.9 [facility] [address], [place] [address]- 5194 May, Diabetes type 2, controlled E11.9 ; BMI 50.0-59.9, adult Z68.43 ; Chronic congestive heart failure, unspecified heart failure type I50.9 ; Angina pectoris I20.9 ; Seasonal allergic rhinitis due to other allergic trigger J30.89 and Renal failure N19 [facility] [address] [address] May, [facility] [id number] [place] [address] 12755- 0604 May, [facility] [id number] [place] [address] 90545- 6540 May, [facility] [address] 53639- 8552 May, [facility] [id number] [place] [address] 89037- 7143 May, [facility] [id number] [place] [address] 76357- 7867 Apr, BMI 50.0-59.9, adult Z68.43 [facility] [address] [place] [address] 63510- 6241 Apr, BMI 50.0-59.9, adult Z68.43 ; Post-procedural fever R50.82 and Bronchitis J40 [facility] [id number] [place] [address] 14720- 0569 Apr, Chronic congestive heart failure, unspecified congestive heart failure type I50.9 [facility] [id number] [place] [address] 42671- 1603 Jan, [facility] [id number] [place] [address] 44808- 5288 Jan, Diabetes type 2, controlled E11.9 [facility] [id number] [place] [address] 13846- 9869 Jan, Neuropathy G62.9 [facility] [id number] [place] [address] 94222- 3814 Jan, [facility] [id number] [place] [address] 07273- 5931 Jan, [facility] [address] [facility] [id number], [place] [address]- 1714 Jan, [facility] [address] [facility] [id number], [place] [address]- 9840 Jan, [facility] [address] [facility] [id number] [place] [address]- 4397 Jan, [facility] [address] [facility] [id number] [address]- 9311 Dec, [facility] [address] [facility] [id number], [place] [address]- 2637 Dec, [facility] [address] [facility] [id number] [address]- 3449 Dec, Diabetes type 2, controlled E11.9 [facility] [id number] [place] [address]- 5693 Dec, [facility] [address] [address]- 7772 Dec, [facility] [address] [facility] [id number], [place] [address]- 2528 Dec, Chronic congestive heart failure, unspecified congestive heart failure type I50.9 [facility] [address], [place] [address]- 9855 Dec, [facility] [address] [address]- 5545 Dec, [facility] [address] [facility] [id number] [address]- 2041 Nov, Chronic congestive heart failure, unspecified congestive heart failure type I50.9 [facility] [id number] [address]- 6038 Nov, Chronic congestive heart failure, unspecified congestive heart failure type I50.9 [facility] [id number], [place] [address]- 1716 Nov, [facility] [address], [place] [address]- 3930 Oct, [facility] [address], [place] [address]- 8638 Oct, [facility] [address], [place] [address]- 3265 Oct, Chronic congestive heart failure, unspecified congestive heart failure type I50.9 [facility] [address] [facility] [id number], [place] [address]- 5297 Oct, [facility] [address], [place] [address]- 3928 Oct, Pneumonia of both lungs due to infectious organism, unspecified part of lung J18.9 [facility] [address], [place] [address]- 0045 Oct, [facility] [address], [place] [address]- 0712 Oct, Diabetes type 2, controlled E11.9 [facility] [address], [place] [address]- 4007 Oct, Diabetes type 2, controlled E11.9 [facility] [address], [place] [address]- 4014 Sep, [facility] [address], [place] [address]- 3263 Sep, Neuropathy G62.9 [facility] [address], [place] [address]- 2609 Aug, Intra-dialytic hypotension I95.3 [facility] [address], [place] [address]- 2164 July, [facility] [address], [place] [address]- 0311 July, [facility] [address], [place] [address]- 6397 July, [facility] [address] [facility] [id number] [place] [address] 2546 July, Amput below knee, unilat S88.119A [facility] [address] [id number] [place] [address] 2546 May, [facility] [address] [place] [address] 2546 May, Neuropathy G62.9 [facility] [address] [facility] [id number] [place] [address] 2546 May, [facility] [id number] [place] [address], [place] [address]- 5776 May, [facility] [address] [place] [address] 2546 May, [facility] [id number] [place] [address], [place] [address]- 8226 May, [facility] [address] [place] [address]- 7453 May, Neuropathy G62.9 [facility] [address] [place] [address]- 5601 Apr, [facility] [address] [place] [address]- 3556 Apr, [facility] [address], [place] [address] 2548 Apr, Diabetes type 2, controlled E11.9 and Renal failure N19 [facility] [id number] [place] [address] 2546 Apr, [facility] [address] [place] [address]- 9546 Apr, [facility] [address] [place] [address] 2546 Mar, [facility] [id number] [place] [address] 36111- 9417 Mar, [facility] [id number] [place] [address], [place] [address]- 9731 Mar, [facility] [id number] [place] [address], [place] [address]- 9995 Mar, [facility] [id number] [place] [address] 56732- 4987 Mar, [facility] [id number] [place] [address] 08211- 5320 Jan, Localized edema R60.0 [facility] [id number] [place] [address] 78977- 1299 Jan, [facility] [id number] [place] [address] 33703- 6199 Jan, [facility] [id number] [place] [address] 89166- 2289 Jan, [facility] [id number] [place] [address] 02242- 7687 Jan, [facility] [id number] [place] [address] 17114- 8357 Jan, [facility] [id number] [place] [address] 49260- 3750 Jan, [facility] [address] [place] [address] 48599- 4760 Dec, Diabetes type 2, controlled E11.9 and Chronic nonintractable headache, unspecified headache type R51 [facility] [id number] [place] [address] 05212- 1665 Dec, [facility] [id number] [place] [address] 16841- 9948 Dec, [facility] [address] [place] [address] 62043- 7426 Nov, [facility] [address] [place] [address] 13179- 9646 Nov, [facility] [id number] [place] [address] 54991- 4086 Oct, [facility] [id number] [place] [address] 88510- 0213 Oct, Migraine without status migrainosus, not intractable, unspecified migraine type G43.909 [facility] [id number] [place] [address] 09065- 2966 Oct, [facility] [id number] [place] [address] 58258- 6489 Sep, Amput below knee, unilat S88.119A and Neuropathy G62.9 [facility] [id number] [place] [address] 97569- 2678 Sep, [facility] [id number] [place] [address] 85759- 5718 Sep, [facility] [id number] [place] [address] 28696- 7154 Sep, [facility] [id number] [place] [address] 42023- 6837 Aug, [facility] [address] [place] [address] 50378- 6869 Aug, [facility] [id number] [place] [address] 67208- 2393 Aug, Diabetes type 2, controlled E11.9 [facility] [id number] [place] [address] 83835- 8186 Aug, [facility] [id number] [place] [address] 48440- 5990 Jun, Diabetes type 2, controlled E11.9 and Neuropathy G62.9 [facility] [id number] [place] [address] 42064- 3659 14 Jul, 2015 [facility] [address] [place] [address]- 7273 11 Jul, 2015 [facility] [address] [place] [address]- 8196 08 Jul, 2015 [facility] [address] [place] [address]- 6470 Jun, [facility] [id number] [place] [address], [place] [address]- 6024 May, [facility] [id number] [place] [address], [place] [address]- 1870 May, Diabetes type 2, controlled E11.9 [facility] [address] [place] [address]- 2142 May, [facility] [id number] [place] [address] 44335- 3669 May, [facility] [address] [place] [address]- 7034 May, [facility] [address] [place] [address]- 6387 25 May, 2015 [facility] [address] [address]- 9914 May, [facility] [address] [place] [address]- 9893 16 May, 2015 [facility] [address] [address]- 8071 16 May, 2015 [facility] [address], [place] [address]- 4965 15 May, 2015 COPD (chronic obstructive pulmonary disease) J44.9 [facility] [address] [address]- 5751 15 May, 2015 [facility] [address] [address]- 1506 May, [facility] [address] [address]- 7028 May, [facility] [address]- 0001 May, [facility] [address] 7148 May, [facility] [address] [address]- 5487 May, Renal failure N19 and Pneumonia, organism unspecified, unspecified laterality, unspecified part of lung J18.9 [facility] [address] [address]- 4631 Apr, [facility] [address] [address]- 5385 Apr, [facility] [address], [place] [address]- 1963 Apr, [facility] [address] [address]- 6853 Apr, Diabetes mellitus 250.00 [facility] [address], [place] [address]- 5937 14 Apr, 2015 [facility] [address] [address]- 5863 Apr, [facility] [id number] [address]- 8399 Apr, [facility] [address] [address]- 5557 Apr, [facility] [address], [place] [address]- 2527 Mar, [facility] [id number] [address]- 5872 Mar, [facility] [place] [facility] [address] [id number] [place] [address]- 9106 23 Mar, 2015 [facility] [place] [facility] [address] [id number] [place] 4510 16 Mar, 2015 Renal failure N19 [facility] [place] [facility] [address] [id number] [place] [address]- 9804 14 Mar, 2015 [facility] [place] [facility] [address] [id number] [place] [address], [place] [address]- 0764 07 Mar, 2015 [facility] [place] [facility] [address] [id number] [place] [address]- 6849 04 Mar, 2015 [facility] [place] [facility] [address] [id number] [place] [address], [place] [address]- 4316 24 Jan, 2015 [facility] [place] [facility] [address] [facility] [id number] [place] [address]- 9238 18 Jan, 2015 [facility] [place] [facility] [address] [facility] [id number] [place] [address], [place] [address]- 8522 17 Jan, 2015 [facility] [place] [facility] [address] [facility] [id number] [place] [address]- 1613 Jan, [facility] [place] [facility] [id number] [place] [address]- 6366 Dec, [facility] [place] [facility] [id number] [place] [address]- 2692 Dec, [facility] [place] [facility] [address] [facility] [id number] [address]- 6963 Dec, [facility] [place] [facility] [address] [facility] [id number] [place] [address]- 1969 21 Nov, 2014 [facility] [place] [facility] [address] [facility] [id number] [place] [address]- 7519 19 Nov, 2014 [facility] [place] [facility] [address] [facility] [id number] [place] [address]- 2488 14 Nov, 2014 [facility] [place] [facility] [address] [facility] [id number] [address]- 7989 Oct, [facility] [id number] [place] [address]- 7106 Oct, [facility] [address] [address]- 9495 Oct, Renal failure 586 and Obesity 278.00 [facility] [address] [facility] [id number], [place] [address]- 1079 Oct, [facility] [address] [facility] [id number], [place] [address]- 5691 Oct, [facility] [address], [place] [address]- 8300 Oct, [facility] [address] [place] [address]- 5248 Sep, [facility] [address], [place] [address]- 3445 Sep, [facility] [address] [address]- 0319 Sep, Diabetes mellitus 250.00 and Congestive heart failure, unspecified 428.0 [facility] [address] [address]- 3755 Aug, [facility] [address] [address]- 5912 Aug, [facility] [address], [place] [address]- 3634 Aug, [facility] [id number] [place] [address]- 4110 July, [facility] [id number] [address] July, [facility] [id number] [address] July, Heart murmur, systolic 785.2 [facility] [address] [id number] [place] [address] July, [facility] [place] [facility] [address] [id number] [place] [address] July, [facility] [place] [facility] [address] [id number] [place] [address] 14 Jun, 2014 [facility] [place] [facility] [address] [id number] [place] [address] Jun, [facility] [place] [facility] [address] [id number] [place] [address] May, [facility] [place] [facility] [address] [id number] [place] [address] 23 May, 2014 [facility] [place] [facility] [address] [id number] [place] [address] May, [facility] [place] [facility] [address] [id number] [place] [address] 18 May, 2014 [facility] [place] [facility] [address] [id number] [place] [address] 16 May, 2014 [facility] [place] [facility] [address] [id number] [place] [address] 16 May, 2014 [facility] [place] [facility] [address] [id number] [place] [address] May, [facility] [place] [facility] [address] [id number] [place] [address] May, [facility] [place] [facility] [address] [id number] [place] [address] May, [facility] [place] [facility] [address] [id number] [place] [address] May, [facility] [place] [facility] [address] [id number] [place] [address] May, [facility] [place] [facility] [address] [id number] [place] [address] May, 2014 [facility] [place] [facility] [address] [id number] [place] [address] May, 2014 [facility] [place] [facility] [address] [facility] [id number] [place] [address] 23 May, 2014 [facility] [place] [facility] [address] [facility] [id number] [place] [address] May, 2014 [facility] [place] [facility] [address] [facility] [id number] [place] [address] May, 2014 [facility] [place] [facility] [address] [facility] [id number] [place] [address] May, 2014 [facility] [place] [facility] [address] [facility] [id number] [place] [address] May, 2014 [facility] [place] [facility] [address] [id number] [place] [address] May, 2014 [facility] [facility] [address] [facility] [id number] [place] [address] May, 2014 [facility] [place] [facility] [address] [facility] [id number] [place] [address] 69[address] May, 2014 [facility] [place] [facility] [address] [facility] [id number] [place] [address] 2323 May, 2014 [facility] [place] [facility] [address] [facility] [id number] [place] [address] 4734 May, 2014 [facility] [place] [facility] [address] [facility] [id number] [place] [address]- 2544 May, 2014 [facility] [place] [facility] [address] [facility] [id number] [place] [address] 8401 May, 2014 [facility] [place] [facility] [address] [facility] [id number] [place] [address]- 8067 May, 2014 [facility] [place] [facility] [address] [facility] [id number] [place] [address] 9697 Apr, [facility] [place] [facility] [address] [id number] [place] [address] 3[address] Apr, [facility] [place] [facility] [address] [id number] [place] [address]- 5030 Apr, [facility] [place] [facility] [address] [id number] [place] [address]- 7312 Apr, [facility] [place] [facility] [address] [id number] [place] [address]- 5931 Apr, [facility] [place] [facility] [address] [id number] [place] [address]- 0646 Apr, [facility] [place] [facility] [address] [id number] [place] [address]- 0141 Apr, [facility] [place] [facility] [address] [id number] [place] [address]- 1668 Apr, [facility] [place] [facility] [address] [id number] [place] [address]- 1146 Mar, [facility] [place] [facility] [address] [id number] [place] [address]- 8339 Mar, [facility] [place] [facility] [address] [id number] [place] [address]- 3107 Mar, [facility] [place] [facility] [address] [id number] [place] [address]- 5244 Mar, [facility] [place] [facility] [address] [id number] [place] [address]- 6943 Mar, [facility] [place] [facility] [address] [id number] [place] [address]- 0761 Mar, [facility] [place] [facility] [address] [id number] [place] [address]- 9264 Mar, [facility] [place] [facility] [address] [id number] [place] [address]- 1661 Mar, [facility] [place] [facility] [address] [id number] [place] [address]- 9891 Mar, [facility] [place] [facility] [address] [id number] [place] [address]- 0756 Mar, [facility] [place] [facility] [address] [id number] [place] [address]- 3346 Mar, [facility] [place] [facility] [address] [id number] [place] [address]- 0896 Mar, [facility] [place] [facility] [address] [id number] [place] [address]- 3558 Mar, [facility] [place] [facility] [address] [id number] [place] [address]- 3129 Mar, [facility] [place] [facility] [address] [id number] [place] [address]- 4309 Mar, [facility] [place] [facility] [address] [id number] [place] [address]- 0091 Mar, [facility] [place] [facility] [address] [id number] [place] [address]- 3240 Mar, [facility] [place] [facility] [address] [id number] [place] [address]- 3939 Mar, [facility] [place] [facility] [address] [id number] [place] [address]- 6225 Mar, [facility] [place] [facility] [address] [id number] [place] [address]- 7812 Mar, [facility] [place] [facility] [address] [id number] [place] [address]- 2714 Mar, [facility] [place] [facility] [address] [id number] [place] [address]- 5887 Mar, [facility] [place] [facility] [address] [id number] [place] [address]- 4345 Jan, [facility] [place] [facility] [address] [id number] [place] [address]- 6453 Jan, [facility] [place] [facility] [address] [id number] [place] [address]- 4863 Jan, [facility] [facility] [address] [id number] [place] [address]- 7282 Jan, [facility] [place] [facility] [address] [id number] [place] [address]- 8560 Jan, [facility] [place] [facility] [address] [id number] [place] [address]- 4449 Jan, [facility] [address] [id number] [place] [address]- 3390 Jan, [facility] [place] [facility] [address] [id number] [place] [address]- 8744 Jan, [facility] [facility] [address] [id number] [place] [address]- 8545 Jan, [facility] [address] [id number] [place] [address]- 6356 Jan, [facility] [address] [id number] [place] [address]- 4963 Jan, [facility] [place] [facility] [address] [id number] [place] [address]- 1932 Jan, [facility] [address] [id number] [place] [address]- 9089 Jan, [facility] [facility] [address] [id number] [place] [address]- 0449 Jan, [facility] [facility] [address] [id number] [place] [address]- 3850 Jan, [facility] [facility] [address] [id number] [place] [address]- 5173 Jan, [facility] [facility] [address] [id number] [place] [address]- 1842 Jan, [facility] [place] [facility] [address] [id number] [place] [address]- 4085 Jan, [facility] [facility] [address] [id number] [place] [address]- 8503 Jan, [facility] [facility] [address] [id number] [place] [address]- 3921 Jan, [facility] [place] [facility] [address] [id number] [place] [address]- 7352 Dec, [facility] [address] [id number] [place] [address]- 2342 Dec, [facility] [address] [id number] [place] [address]- 5616 Dec, [facility] [address] [id number] [place] [address]- 4243 Dec, [facility] [address] [id number] [place] [address]- 0261 Dec, [facility] [address] [id number] [place] [address]- 8456 Dec, [facility] [address] [id number] [place] [address]- 9502 Dec, [facility] [address] [id number], [place] [address]- 8860 Dec, [facility] [address] [id number], [place] [address]- 1108 Dec, [facility] [address] [id number], [place] [address]- 6503 Dec, [facility] [address] [id number] [place] [address]- 0174 Dec, [facility] [address] [id number], [place] [address] 1922 Dec, [facility] [address] [id number] [place] [address]- 7658 Dec, [facility] [address] [id number] [place] [address]- 5119 Dec, [facility] [address] [id number] [place] [address]- 4356 Dec, [facility] [address] [id number] [place] [address]- 8255 22 Nov, 2013 [facility] [address] [id number] [place] [address]- 6356 22 Nov, 2013 [facility] [address] [id number] [place] [address]- 0255 19 Nov, 2013 [facility] [address] [id number] [place] [address]- 4500 19 Nov, 2013 [facility] [facility] [address] [id number] [place] [address]- 4842 13 Nov, 2013 [facility] [address] [id number] [place] [address]- 8567 13 Nov, 2013 [facility] [address] [id number] [place] [address]- 7252 10 Nov, 2013 [facility] [address] [id number] [place] [address]- 0942 10 Nov, 2013 [facility] [address] [id number] [place] [address]- 1904 08 Nov, 2013 [facility] [address] [id number] [place] [address] 2541 05 Sep, 2013 [facility] [facility] [address] [id number] [place] [address]- 2541 05 Sep, 2013 [facility] [address] [id number] [place] [address] 2548 03 Nov, 2013 [facility] [address] [id number] [place] [address]- 2541 Nov, 2013 [facility] [address] [id number] [place] [address]- 5510 Oct, [facility] [address] [id number] [place] [address]- 7489 Oct, [facility] [address] [id number] [place] [address]- 7525 Oct, [facility] [facility] [address] [id number] [place] [address]- 7801 Oct, [facility] [address] [id number] [place] [address]- 9840 Oct, [facility] [address] [id number] [place] [address]- 4112 Sep, [facility] [address] [id number] [place] [address]- 6139 Sep, [facility] [address] [id number] [place] [address]- 5178 Sep, [facility] [address] [id number] [place] [address]- 6085 Sep, [facility] [address] [id number] [place] [address]- 4835 Aug, [facility] [address] [id number] [place] [address]- 2977 Aug, [facility] [address] [id number] [place] [address]- 8565 Aug, [facility] [address] [id number] [place] [address]- 5512 Aug, [facility] [address] [id number] [place] [address]- 9118 Aug, [facility] [address] [id number] [place] [address]- 5467 Aug, [facility] [address] [id number] [place] [address]- 0509 Aug, [facility] [address] [id number] [place] [address]- 9324 Aug, [facility] [address] [id number] [place] [address]- 7897 Aug, [facility] [address] [id number] [place] [address]- 4485 Aug, [facility] [address] [id number] [place] [address]- 8228 Aug, [facility] [address] [id number] [place] [address]- 0406 Aug, [facility] [address] [id number] [place] [address]- 6598 Aug, [facility] [address] [id number] [place] [address]- 5339 Aug, [facility] [address] [id number] [place] [address]- 4800 Aug, [facility] [address] [id number] [place] [address]- 7093 Aug, [facility] [address] [id number] [place] [address]- 4853 Aug, [facility] [address] [id number] [place] [address]- 3398 Aug, [facility] [address] [id number] [place] [address]- 8006 Aug, [facility] [address] [id number], [place] [address]- 7711 Aug, [facility] [address] [id number] [place] [address]- 8586 Aug, [facility] [address] [id number] [place] [address]- 9000 Aug, [facility] [address] [id number] [place] [address]- 7840 Aug, [facility] [address] [id number] [place] [address]- 4937 Aug, [facility] [address] [id number] [place] [address]- 2189 July, [facility] [address] [id number] [place] [address]- 2849 July, [facility] [address] [id number] [place] [address]- 3487 July, [facility] [address] [id number] [place] [address]- 5060 July, [facility] [address] [id number] [place] [address]- 2215 July, [facility] [address] [id number] [place] [address]- 7517 July, [facility] [address] [id number] [place] [address]- 4794 Jun, [facility] [address] [id number] [place] [address]- 7971 Jun, [facility] [address] [id number] [place] [address]- 7358 Jun, [facility] [address] [id number] [place] [address]- 9743 Jun[facility] [address] [id number] [place] [address]- 4658 Jun, [facility] [address] [id number] [place] [address]- 5816 Jun, [facility] [address] [id number] [place] [address]- 6282 Jun, [facility] [address] [id number] [place] [address]- 9623 Jun, [facility] [address] [id number] [place] [address]- 0493 Jun, [facility] [place] [facility] [address] [id number] [place] Jun, [facility] [place] [facility] [address] [id number] [place] [address]- 9903 Jun, [facility] [place] [facility] [address] [id number] [place] [address]- 5866 Jun, [facility] [place] [facility] [address] [id number] [place] [address]- 4794 Jun, [facility] [place] [facility] [address] [id number] [place] [address]- 3374 Jun, [facility] [place] [facility] [address] [id number] [place] [address]- 0332 Jun, [facility] [place] [facility] [address] [id number] [place] [address]- 0705 May, [facility] [place] [facility] [address] [id number] [place] [address]- 3785 May, [facility] [place] [facility] [address] [id number] [place] [address]- 8661 May, [facility] [place] [facility] [address] [id number] [place] [address]- 9874 May, [facility] [place] [facility] [address] [id number] [place] [address]- 3245 May, [facility] [place] [facility] [address] [id number] [place] [address]- 7555 May, [facility] [place] [facility] [address] [id number] [place] [address]- 0282 May, [facility] [place] [facility] [address] [id number] [place] [address]- 6449 May, [facility] [place] [facility] [address] [id number] [place] [address]- 3573 May, [facility] [place] [facility] [address] [id number] [place] [address]- 8932 May, [facility] [place] [facility] [address] [id number] [place] [address]- 7605 May, [facility] [place] [facility] [address] [id number] [place] May, [facility] [place] [facility] [address] [id number] [place] [address]- 8436 May, [facility] [place] [facility] [address] [id number] [place] [address]- 2132 May, [facility] [place] [facility] [address] [id number] [place] [address]- 3100 May, [facility] [place] [facility] [address] [id number] [place] [address]- 3637 May, [facility] [place] [facility] [address] [id number] [place] [address]- 6532 May, [facility] [place] [facility] [address] [id number] [place] [address]- 9761 Apr, [facility] [place] [facility] [address] [id number] [place] [address]- 6344 Apr, [facility] [place] [facility] [address] [id number] [place] [address]- 4405 Apr, [facility] [place] [facility] [address] [id number] [place] [address]- 4386 Apr, [facility] [place] [facility] [address] [id number] [place] [address]- 1818 Apr, [facility] [place] [facility] [address] [id number] [place] [address]- 7364 Apr, [facility] [place] [facility] [address] [id number] [place] [address]- 6901 Apr, [facility] [place] [facility] [address] [id number] [place] [address]- 6609 Apr, [facility] [place] [facility] [address] [id number] [place] [address]- 5695 Apr, [facility] [place] [facility] [address] [id number] [place] [address]- 5078 Apr, [facility] [place] [facility] [address] [id number] [place] [address]- 9280 Apr, [facility] [place] [facility] [address] [id number] [place] [address]- 5172 Apr, [facility] [place] [facility] [address] [id number] [place] [address]- 2744 Apr, [facility] [place] [facility] [address] [id number] [place] [address]- 3816 Apr, [facility] [place] [facility] [address] [id number] [place] [address]- 3004 Apr, [facility] [place] [facility] [address] [id number] [place] [address]- 3167 Apr, [facility] [place] [facility] [address] [id number] [place] [address]- 4724 Mar, [facility] [place] [facility] [address] [id number] [place] [address]- 7617 Mar, [facility] [place] [facility] [address] [id number] [place] [address]- 3023 Mar, [facility] [place] [facility] [address] [id number] [place] [address]- 5695 30 Mar, 2013 [facility] [place] [facility] [address] [id number] [place] [address]- 3987 Mar, [facility] [place] [facility] [address] [id number] [place] [address]- 8704 Mar, [facility] [place] [facility] [address] [id number] [place] [address]- 0521 Mar, [facility] [place] [facility] [address] [id number], [place] [address]- 4416 18 Mar, 2013 [facility] [address] [id number] [place] [address]- 0303 Mar, [facility] [place] [facility] [address] [id number] [place] [address]- 1346 Mar, [facility] [place] [facility] [address] [facility] [id number] [place] [address]- 7535 Mar, [facility] [place] [facility] [address] [id number], [place] [address]- 3547 05 Mar, 2013 [facility] [address] [id number] [place] [address]- 2214 Mar, [facility] [place] [facility] [address] [id number] [place] [address]- 5402 Mar, [facility] [address] [id number], [place] [address]- 4139 Mar, [facility] [place] [facility] [address] [id number], [place] [address]- 6128 Mar, [facility] [place] [facility] [address] [id number], [place] [address]- 0134 Mar, [facility] [place] [facility] [address] [id number] 7491 Mar, [facility] [place] [facility] [address] [id number], [place] [address]- 3806 Jan, [facility] [place] [facility] [address] [id number], [place] [address]- 2045 Jan, [facility] [place] [facility] [address] [id number], [place] [address]- 9324 Jan, [facility] [place] [facility] [address] [facility] [id number], [place] [address]- 3345 Jan, [facility] [place] [facility] [address] [facility] [id number], [place] [address]- 2718 Nov, [facility] [place] [facility] [address] [id number] [place] [address] 10 Nov, 2012 [facility] [address] [id number] [place] [address] Nov, [facility] [address] [id number] [place] [address] Nov, [facility] [address] [id number] [place] [address] Oct, [facility] [address] [id number] [place] [address] Oct, [facility] [address] [id number] [place] [address] Oct, [facility] [address] [id number] [place] [address] Oct, [facility] [address] [id number] [place] [address] Sep, [facility] [address] [id number] [place] [address] Sep, [facility] [address] [id number] [place] [address] Sep, [facility] [address] [id number] [place] [address] Sep, [facility] [place] [facility] [address] [id number] [place] [address] Sep, [facility] [address] [id number] [place] [address] Sep, [facility] [place] [facility] [address] [id number] [place] [address] Sep, [facility] [place] [facility] [address] [id number] [place] [address] Sep, [facility] [place] [facility] [address] [id number] [place] [address] Sep, [facility] [address] [id number] [place] [address] Aug, [facility] [address] [id number] [place] [address] Aug, [facility] [address] [id number] [place] [address] Aug, [facility] [place] [facility] [address] [id number] [place] [address] Aug, [facility] [address] [id number] [place] [address] July, [facility] [address] [id number] [place] [address] July, [facility] [address] [id number] [place] [address] July, [facility] [address] [id number] [place] [address] July, [facility] [address] [id number] [place] [address] July, [facility] [address] [id number] [place] [address] July, [facility] [place] [facility] [address] [id number] [place] [address] July, [facility] [place] [facility] [address] [id number] [place] [address] Jun, [facility] [place] [facility] [address] [id number] [place] [address] May, [facility] [place] [facility] [address] [id number] [place] [address] May, [facility] [place] [facility] [address] [id number] [place] [address] May, [facility] [place] [facility] [address] [id number] [place] [address] May, [facility] [address] [facility] [id number] [place] [address] May, [facility] [address] [facility] [id number], [place] [address] May, [facility] [address] [facility] [id number], [place] [address] May, [facility] [address] [facility] [id number], [place] [address] May, IMMUNIZATIONS No Known Immunizations SOCIAL HISTORY Never Assessed REASON FOR VISIT medication refill PLAN OF CARE VITAL SIGNS MEDICATIONS Medication Instructions Dosage Frequency Start Date End Date Duration Status Rosuvastatin Calcium 20 MG TAKE 1 TABLET BY MOUTH ONCE A DAY 30 Active RESULTS No Results PROCEDURES [...] heart problems 03/2015 Hospitalization History Pneumonia 04/2015 Hospitalization History [facility] 5 nights - unresponsive 11/2017
--- OUTSIDE RECORDS SUMMARY | 2018-03-12 21:16 | XMS REPORT ---
Author Author MCKENNA HEBERT Organization [facility] Address [address] [place] [address] Care Team Providers Care Cloth Picker Name Role Phone MCKENNA HEBERT Unavailable PROBLEMS Type Condition ICD9-CM Code LOK14-QW Code Onset Dates Condition Status SNOMED Code Problem Intra-dialytic hypotension I95.3 Active 226258028 Problem Seasonal allergic rhinitis due to other allergic trigger J30.89 Active 204299691 Problem Chronic congestive heart failure, unspecified congestive heart failure type I50.9 Active 14763688 Problem Self-care deficit for toileting R46.0 Active 147090665 Problem Primary insomnia F51.01 Active 0674441 Problem Angina pectoris I20.9 Active 307316427 Problem Chronic congestive heart failure, unspecified heart failure type I50.9 Active 08933835 Problem 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 Active 8231760 Problem Other chronic pain G89.29 Active 81073961 Problem Diabetes type 2, controlled E11.9 Active 60503189 Problem Renal failure N19 Active 21321871 Problem Neuropathy G62.9 Active 972818256 Problem Cellulitis of right lower extremity L03.115 Active 002629415 Problem Amput below knee, unilat S88.119A Active 54463597 ALLERGIES No Information ENCOUNTERS Encounter Location Date Diagnosis [facility] [id number], [place] [address] Jan, [facility] [id number], [place] [address] 4490 Jan, [facility] [address], [place] [address] 3399 Dec, [facility] [id number], [place] [address]- 6564 Dec, [facility] [id number] [place] [address] 81957- 1556 Dec, [facility] [id number] [place] [address] 89633- 2488 Nov, Pneumonia due to infectious organism, unspecified laterality , unspecified part of lung J18.9 and Self-care deficit for toileting R46.0 [facility] [id number] [place] [address] 38959- 7440 Nov, [facility] [address] [address]- 6692 Oct, Diabetes type 2, controlled E11.9 ; Primary insomnia F51.01 and Bilateral headaches R51 [facility] [id number] [place] [address] 41471- 7905 Oct, [facility] [id number] [place] [address] 86814- 7073 Sep, [facility] [address] [id number] Sep, Dental examination Z01.20 and Dental caries K02.9 [facility] [id number] [place] [address] 63588- 0851 Sep, [facility] [id number] [place] [address] 40859- 5356 Sep, [facility] [address] [place] [address] 77954- 1640 Sep, Other chronic pain G89.29 and Pain in right knee M25.561 [facility] [id number] [place] [address] 56872- 8182 Sep, [facility] [id number] [place] [address] 09792- 6348 Aug, [facility] [id number] [place] [address] 74459- 9132 Aug, 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 [facility] [address] [place] [address]- 9839 15 Aug, 2017 [facility] [address], [place] [address]- 7204 11 Aug, 2017 Diabetes type 2, controlled E11.9 and Acute pain of right knee M25.561 [facility] [address], [place] [address]- 9907 Aug, [facility] [address], [place] [address]- 8484 July, [facility] [address], [place] [address]- 8125 16 Jun, 2017 [facility] [address], [place] [address]- 7185 Jun, [facility] [address], [place] [address]- 4870 Jun, Diabetes type 2, controlled E11.9 [facility] [address], [place] [address]- 4469 Jun, [facility] [address], [place] [address]- 2578 May, [facility] [address], [place] [address]- 9852 May, [facility] [address], [place] [address]- 4721 May, [facility] [address], [place] [address]- 1766 May, Chronic congestive heart failure, unspecified congestive heart failure type I50.9 [facility] [address], [place] [address]- 6242 May, Diabetes type 2, controlled E11.9 ; BMI 50.0-59.9, adult Z68.43 ; Chronic congestive heart failure, unspecified heart failure type I50.9 ; Angina pectoris I20.9 ; Seasonal allergic rhinitis due to other allergic trigger J30.89 and Renal failure N19 [facility] [address] [address] May, [facility] [id number] [place] [address] 52411- 9910 May, [facility] [id number] [place] [address] 95280- 7401 May, [facility] [address] 54357- 6887 May, [facility] [id number] [place] [address] 93861- 0091 May, [facility] [id number] [place] [address] 51007- 8755 Apr, BMI 50.0-59.9, adult Z68.43 [facility] [id number] [place] [address] 62317- 8498 Apr, BMI 50.0-59.9, adult Z68.43 ; Post-procedural fever R50.82 and Bronchitis J40 [facility] [id number] [place] [address] 89083- 5426 Apr, Chronic congestive heart failure, unspecified congestive heart failure type I50.9 [facility] [id number] [place] [address] 92018- 2012 Jan, [facility] [id number] [place] [address] 76375- 4594 Jan, Diabetes type 2, controlled E11.9 [facility] [id number] [place] [address] 97794- 5615 Jan, Neuropathy G62.9 [facility] [id number] [place] [address] 11902- 7982 Jan, [facility] [id number] [place] [address] 96607- 7215 Jan, [facility] [address] [facility] [id number], [place] [address]- 2550 Jan, [facility] [address] [facility] [id number], [place] [address]- 8279 Jan, [facility] [address] [facility] [id number] [place] [address]- 4925 Jan, [facility] [address] [facility] [id number], [place] [address]- 2143 Dec, [facility] [address] [facility] [id number], [place] [address]- 9112 Dec, [facility] [address] [facility] [id number], [place] [address]- 3418 Dec, Diabetes type 2, controlled E11.9 [facility] [id number] [place] [address]- 5856 Dec, [facility] [address], [place] [address]- 5707 Dec, [facility] [address] [facility] [id number], [place] [address]- 0607 Dec, Chronic congestive heart failure, unspecified congestive heart failure type I50.9 [facility] [address], [place] [address]- 2911 Dec, [facility] [address], [place] [address]- 4559 Dec, [facility] [address] [facility] [id number], [place] [address]- 4850 Nov, Chronic congestive heart failure, unspecified congestive heart failure type I50.9 [facility] [id number], [place] [address]- 6169 Nov, Chronic congestive heart failure, unspecified congestive heart failure type I50.9 [facility] [id number], [place] [address]- 2586 Nov, [facility] [address], [place] [address]- 1703 Oct, [facility] [address], [place] [address]- 8394 Oct, [facility] [address], [place] [address]- 4332 Oct, Chronic congestive heart failure, unspecified congestive heart failure type I50.9 [facility] [address] [facility] [id number], [place] [address]- 2148 Oct, [facility] [address], [place] [address]- 6711 Oct, Pneumonia of both lungs due to infectious organism, unspecified part of lung J18.9 [facility] [address], [place] [address]- 7975 Oct, [facility] [address], [place] [address]- 9382 Oct, Diabetes type 2, controlled E11.9 [facility] [address], [place] [address]- 0190 Oct, Diabetes type 2, controlled E11.9 [facility] [address], [place] [address]- 2564 Sep, [facility] [address], [place] [address]- 6573 Sep, Neuropathy G62.9 [facility] [address], [place] [address]- 5397 Aug, Intra-dialytic hypotension I95.3 [facility] [address], [place] [address]- 9915 July, [facility] [address], [place] [address]- 8134 July, [facility] [address], [place] [address]- 2545 July, [facility] [address] [facility] [id number] [place] [address] 2546 July, Amput below knee, unilat S88.119A [facility] [address] [id number] [place] [address] 2546 May, [facility] [address] [place] [address] 2546 May, Neuropathy G62.9 [facility] [address] [facility] [id number] [place] [address] 2546 May, [facility] [id number] [place] [address], [place] [address]- 7476 May, [facility] [address] [place] [address] 2546 May, [facility] [id number] [place] [address], [place] [address]- 3186 May, [facility] [address] [place] [address]- 3410 May, Neuropathy G62.9 [facility] [address] [place] [address]- 1645 Apr, [facility] [address] [place] [address]- 8586 Apr, [facility] [address], [place] [address] 254 Apr, Diabetes type 2, controlled E11.9 and Renal failure N19 [facility] [id number] [place] [address] 2546 Apr, [facility] [address] [place] [address]- 4706 Apr, [facility] [address] [place] [address] 2546 Mar, [facility] [id number] [place] [address] 68400- 7187 Mar, [facility] [id number] [place] [address], [place] [address]- 8162 Mar, [facility] [id number] [place] [address], [place] [address]- 4435 Mar, [facility] [id number] [place] [address] 35309- 0529 Mar, [facility] [id number] [place] [address] 74134- 1155 Jan, Localized edema R60.0 [facility] [id number] [place] [address] 61724- 5046 Jan, [facility] [id number] [place] [address] 09855- 5607 Jan, [facility] [id number] [place] [address] 21930- 1364 Jan, [facility] [id number] [place] [address] 25833- 5389 Jan, [facility] [id number] [place] [address] 64176- 8203 Jan, [facility] [id number] [place] [address] 24504- 4590 Jan, [facility] [address] [place] [address] 25549- 9502 Dec, Diabetes type 2, controlled E11.9 and Chronic nonintractable headache, unspecified headache type R51 [facility] [id number] [place] [address] 51862- 7787 Dec, [facility] [id number] [place] [address] 03591- 5107 Dec, [facility] [id number] [place] [address] 87619- 4144 Nov, [facility] [id number] [place] [address] 27910- 7672 Nov, [facility] [id number] [place] [address] 84972- 3573 Oct, [facility] [id number] [place] [address] 96365- 8054 Oct, Migraine without status migrainosus, not intractable, unspecified migraine type G43.909 [facility] [id number] [place] [address] 87050- 3684 Oct, [facility] [id number] [place] [address] 01412- 5522 Sep, Amput below knee, unilat S88.119A and Neuropathy G62.9 [facility] [id number] [place] [address] 86662- 8707 Sep, [facility] [id number] [place] [address] 29157- 9820 Sep, [facility] [id number] [place] [address] 47266- 5275 Sep, [facility] [id number] [place] [address] 25147- 8858 Aug, [facility] [id number] [place] [address] 49634- 9464 Aug, [facility] [id number] [place] [address] 05722- 3942 Aug, Diabetes type 2, controlled E11.9 [facility] [id number] [place] [address] 88177- 4126 Aug, [facility] [id number] [place] [address] 91760- 8934 Jun, Diabetes type 2, controlled E11.9 and Neuropathy G62.9 [facility] [id number] [place] [address] 96709- 8039 14 Jul, 2015 [facility] [address] [place] [address]- 4864 11 Jul, 2015 [facility] [address] [place] [address]- 2156 08 Jul, 2015 [facility] [address] [place] [address]- 4634 Jun, [facility] [id number] [place] [address], [place] [address]- 5296 May, [facility] [id number] [place] [address], [place] [address]- 9134 May, Diabetes type 2, controlled E11.9 [facility] [address] [place] [address]- 2917 May, [facility] [id number] [place] [address] 36414- 0952 May, [facility] [address] [place] [address]- 4822 May, [facility] [address] [place] [address]- 5863 25 May, 2015 [facility] [address], [place] [address]- 0873 May, [facility] [address] [place] [address]- 8840 16 May, 2015 [facility] [address], [place] [address]- 0139 16 May, 2015 [facility] [address], [place] [address]- 5127 15 May, 2015 COPD (chronic obstructive pulmonary disease) J44.9 [facility] [address], [place] [address]- 4896 15 May, 2015 [facility] [address], [place] [address]- 6134 May, [facility] [address], [place] [address]- 5413 May, [facility] [address] 1673 May, [facility] [address] 2068 May, [facility] [address], [place] [address]- 7754 May, Renal failure N19 and Pneumonia, organism unspecified, unspecified laterality, unspecified part of lung J18.9 [facility] [address], [place] [address]- 5320 Apr, [facility] [address], [place] [address]- 1274 Apr, [facility] [address], [place] [address]- 4817 Apr, [facility] [address], [place] [address]- 5686 Apr, Diabetes mellitus 250.00 [facility] [address], [place] [address]- 8598 14 Apr, 2015 [facility] [address], [place] [address]- 8012 Apr, [facility] [id number], [place] [address]- 4447 Apr, [facility] [address], [place] [address]- 6866 Apr, [facility] [address], [place] [address]- 8372 Mar, [facility] [id number], [place] [address]- 4480 Mar, [facility] [place] [facility] [address] [id number] [place] [address]- 6047 23 Mar, 2015 [facility] [place] [facility] [address] [id number] [place] 5269 16 Mar, 2015 Renal failure N19 [facility] [place] [facility] [address] [id number] [place] [address]- 1383 14 Mar, 2015 [facility] [place] [facility] [address] [id number] [place] [address], [place] [address]- 8356 07 Mar, 2015 [facility] [place] [facility] [address] [id number] [place] [address]- 2198 04 Mar, 2015 [facility] [place] [facility] [id number] [place] [address], [place] [address]- 5088 24 Jan, 2015 [facility] [place] [facility] [address] [facility] [id number] [place] [address]- 6440 18 Jan, 2015 [facility] [place] [facility] [address] [facility] [id number] [place] [address], [place] [address]- 5154 17 Jan, 2015 [facility] [place] [facility] [address] [facility] [id number] [place] [address]- 2373 Jan, [facility] [place] [facility] [id number] [place] [address]- 9686 Dec, [facility] [place] [facility] [id number] [place] [address]- 7160 Dec, [facility] [place] [facility] [address] [facility] [id number], [place] [address]- 5367 Dec, [facility] [place] [facility] [address] [facility] [id number] [place] [address]- 9825 21 Nov, 2014 [facility] [place] [facility] [address] [facility] [id number] [place] [address]- 5187 19 Nov, 2014 [facility] [place] [facility] [address] [facility] [id number] [place] [address]- 7021 14 Nov, 2014 [facility] [place] [facility] [address] [facility] [id number], [place] [address]- 3056 Oct, [facility] [id number] [place] [address]- 6423 Oct, [facility] [address], [place] [address]- 4528 Oct, Renal failure 586 and Obesity 278.00 [facility] [address] [facility] [id number], [place] [address]- 8937 Oct, [facility] [address] [facility] [id number], [place] [address]- 5749 Oct, [facility] [address], [place] [address]- 2622 Oct, [facility] [address] [place] [address]- 5932 Sep, [facility] [address], [place] [address]- 5712 Sep, [facility] [address], [place] [address]- 2601 Sep, Diabetes mellitus 250.00 and Congestive heart failure, unspecified 428.0 [facility] [address], [place] [address]- 5238 Aug, [facility] [address], [place] [address]- 0930 Aug, [facility] [address], [place] [address]- 4530 Aug, [facility] [id number] [place] [address]- 9378 July, [facility] [address], [place] [address]- 4777 July, [facility] [id number], [place] [address]- 3941 July, Heart murmur, systolic 785.2 [facility] [address] [id number] [place] [address]- 7256 July, [facility] [place] [facility] [address] [id number] [place] [address]- 0801 July, [facility] [place] [facility] [address] [id number] [place] [address]- 6496 14 Jun, 2014 [facility] [place] [facility] [address] [id number] [place] [address]- 8866 Jun, [facility] [place] [facility] [address] [id number] [place] [address]- 9439 May, [facility] [place] [facility] [address] [id number] [place] [address]- 8431 23 May, 2014 [facility] [place] [facility] [address] [id number] [place] [address] May, [facility] [place] [facility] [address] [id number] [place] [address] 18 May, 2014 [facility] [place] [facility] [address] [id number] [place] [address] 16 May, 2014 [facility] [place] [facility] [address] [id number] [place] [address] 16 May, 2014 [facility] [place] [facility] [address] [id number] [place] [address] May, [facility] [place] [facility] [address] [id number] [place] [address] May, [facility] [place] [facility] [address] [id number] [place] [address] May, [facility] [place] [facility] [address] [id number] [place] [address] May, [facility] [place] [facility] [address] [id number] [place] [address] May, [facility] [place] [facility] [address] [id number] [place] [address] May, 2014 [facility] [place] [facility] [address] [id number] [place] [address] May, 2014 [facility] [place] [facility] [address] [facility] [id number] [place] [address]- [address] 23 May, 2014 [facility] [place] [facility] [address] [facility] [id number] [place] [address] May, 2014 [facility] [place] [facility] [address] [facility] [id number] [place] [address] May, 2014 [facility] [place] [facility] [address] [facility] [id number] [place] [address] May, 2014 [facility] [place] [facility] [address] [facility] [id number] [place] [address]- [address] May, 2014 [facility] [place] [facility] [address] [id number] [place] [address] May, 2014 [facility] [place] [facility] [address] [facility] [id number] [place] [address] May, 2014 [facility] [place] [facility] [address] [facility] [id number] [place] [address] May, 2014 [facility] [place] [facility] [address] [facility] [id number] [place] [address] May, 2014 [facility] [place] [facility] [address] [facility] [id number] [place] [address] May, 2014 [facility] [place] [facility] [address] [facility] [id number] [place] [address]- [address] May, 2014 [facility] [place] [facility] [address] [facility] [id number] [place] [address]- [address] May, 2014 [facility] [place] [facility] [address] [facility] [id number] [place] [address]84 May, 2014 [facility] [place] [facility] [address] [facility] [id number] [place] [address] Apr, [facility] [place] [facility] [address] [id number] [place] [address] Apr, [facility] [place] [facility] [address] [id number] [place] [address] Apr, [facility] [place] [facility] [address] [id number] [place] [address] Apr, [facility] [place] [facility] [address] [id number] [place] [address] Apr, [facility] [place] [facility] [address] [id number] [place] [address] Apr, [facility] [place] [facility] [address] [id number] [place] [address] Apr, [facility] [place] [facility] [address] [id number] [place] [address] 8329 Apr, [facility] [place] [facility] [address] [id number] [place] [address]- 5788 Mar, [facility] [place] [facility] [address] [id number] [place] [address]- 0752 Mar, [facility] [place] [facility] [address] [id number] [place] [address] 2700 Mar, [facility] [place] [facility] [address] [id number] [place] [address]- 3250 Mar, [facility] [place] [facility] [address] [id number] [place] [address]- 4014 Mar, [facility] [place] [facility] [address] [id number] [place] [address]- 7478 Mar, [facility] [place] [facility] [address] [id number] [place] [address]- 2618 Mar, [facility] [place] [facility] [address] [id number] [place] [address]- 9441 Mar, [facility] [place] [facility] [address] [id number] [place] [address]- 4438 Mar, [facility] [place] [facility] [address] [id number] [place] [address]- 6716 Mar, [facility] [place] [facility] [address] [id number] [place] [address]- 1736 Mar, [facility] [place] [facility] [address] [id number] [place] [address]- 8906 Mar, [facility] [place] [facility] [address] [id number] [place] [address]- 7620 Mar, [facility] [place] [facility] [address] [id number] [place] [address]- 6098 Mar, [facility] [place] [facility] [address] [id number] [place] [address]- 6606 Mar, [facility] [place] [facility] [address] [id number] [place] [address]- 8723 Mar, [facility] [place] [facility] [address] [id number] [place] [address]- 6286 Mar, [facility] [place] [facility] [address] [id number] [place] [address]- 5192 Mar, [facility] [place] [facility] [address] [id number] [place] [address]- 1671 Mar, [facility] [place] [facility] [address] [id number] [place] [address]- 3778 Mar, [facility] [place] [facility] [address] [id number] [place] [address]- 6578 Mar, [facility] [place] [facility] [address] [id number] [place] [address]- 6881 Mar, [facility] [place] [facility] [address] [id number] [place] [address]- 8804 Jan, [facility] [place] [facility] [address] [id number] [place] [address]- 8398 Jan, [facility] [place] [facility] [address] [id number] [place] [address]- 6657 Jan, [facility] [place] [facility] [address] [id number] [place] [address]- 8771 Jan, [facility] [place] [facility] [address] [id number] [place] [address]- 6039 Jan, [facility] [place] [facility] [address] [id number] [place] [address]- 4409 Jan, [facility] [place] [facility] [address] [id number] [place] [address]- 2098 Jan, [facility] [place] [facility] [address] [id number] [place] [address]- 0995 Jan, [facility] [place] [facility] [address] [id number] [place] [address]- 5697 Jan, [facility] [place] [facility] [address] [id number] [place] [address]- 4826 Jan, [facility] [place] [facility] [address] [id number] [place] [address]- 6106 Jan, [facility] [place] [facility] [address] [id number] [place] [address]- 9039 Jan, [facility] [place] [facility] [address] [id number] [place] [address]- 9894 Jan, [facility] [place] [facility] [address] [id number] [place] [address]- 9370 Jan, [facility] [place] [facility] [address] [id number] [place] [address]- 2036 Jan, [facility] [place] [facility] [address] [id number] [place] [address]- 0537 Jan, [facility] [place] [facility] [address] [id number] [place] [address]- 5841 Jan, [facility] [place] [facility] [address] [id number] [place] [address]- 2064 Jan, [facility] [place] [facility] [address] [id number] [place] [address]- 3178 Jan, [facility] [place] [facility] [address] [id number] [place] [address]- 6510 Jan, [facility] [place] [facility] [address] [id number] [place] [address]- 0118 Dec, [facility] [place] [facility] [address] [id number] [place] [address]- 3830 Dec, [facility] [place] [facility] [address] [id number] [place] [address]- 1635 Dec, [facility] [place] [facility] [address] [id number] [place] [address]- 3065 Dec, [facility] [place] [facility] [address] [id number] [place] [address]- 0113 Dec, [facility] [place] [facility] [address] [id number] [place] [address]- 3171 Dec, [facility] [place] [facility] [address] [id number] [place] [address]- 3761 Dec, [facility] [place] [facility] [address] [id number], [place] [address]- 7097 Dec, [facility] [place] [facility] [address] [id number], [place] [address]- 5768 Dec, [facility] [place] [facility] [address] [id number], [place] [address]- 0715 Dec, [facility] [place] [facility] [address] [id number] [place] [address]- 8671 Dec, [facility] [place] [facility] [address] [id number], [place] [address]- 6377 Dec, [facility] [place] [facility] [address] [id number] [place] [address]- 1246 Dec, [facility] [place] [facility] [address] [id number] [place] [address]- 1474 Dec, [facility] [place] [facility] [address] [id number] [place] [address]- 0522 Dec, [facility] [place] [facility] [address] [id number] [place] [address]- 8244 22 Nov, 2013 [facility] [place] [facility] [address] [id number] [place] [address]- 8166 22 Nov, 2013 [facility] [place] [facility] [address] [id number] [place] [address]- 5687 19 Nov, 2013 [facility] [place] [facility] [address] [id number] [place] [address]- 0231 19 Nov, 2013 [facility] [place] [facility] [address] [id number] [place] [address]- 8311 13 Nov, 2013 [facility] [place] [facility] [address] [id number] [place] [address]- 3021 13 Nov, 2013 [facility] [place] [facility] [address] [id number] [place] [address]- 4929 10 Nov, 2013 [facility] [place] [facility] [address] [id number] [place] [address]- 1434 10 Nov, 2013 [facility] [place] [facility] [address] [id number] [place] [address]- 2916 08 Nov, 2013 [facility] [place] [facility] [address] [id number] [place] [address] 2544 05 Sep, 2013 [facility] [place] [facility] [address] [id number] [place] [address]- 2547 05 Sep, 2013 [facility] [place] [facility] [address] [id number] [place] [address] 2547 03 Nov, 2013 [facility] [place] [facility] [address] [id number] [place] [address]- 2545 Nov, 2013 [facility] [place] [facility] [address] [id number] [place] [address]- 4128 Oct, [facility] [place] [facility] [address] [id number] [place] [address]- 3160 Oct, [facility] [place] [facility] [address] [id number] [place] [address]- 7628 Oct, [facility] [place] [facility] [address] [id number] [place] [address]- 4060 Oct, [facility] [place] [facility] [address] [id number] [place] [address]- 7517 Oct, [facility] [place] [facility] [address] [id number] [place] [address]- 8988 Sep, [facility] [place] [facility] [address] [id number] [place] [address]- 9782 Sep, [facility] [place] [facility] [address] [id number] [place] [address]- 2194 Sep, [facility] [place] [facility] [address] [id number] [place] [address]- 0582 Sep, [facility] [place] [facility] [address] [id number] [place] [address]- 9771 Aug, [facility] [place] [facility] [address] [id number] [place] [address]- 1071 Aug, [facility] [place] [facility] [address] [id number] [place] [address]- 1974 Aug, [facility] [place] [facility] [address] [id number] [place] [address]- 4554 Aug, [facility] [place] [facility] [address] [id number] [place] [address]- 7187 Aug, [facility] [place] [facility] [address] [id number] [place] [address]- 6767 Aug, [facility] [place] [facility] [address] [id number] [place] [address]- 1257 Aug, [facility] [place] [facility] [address] [id number] [place] [address]- 8466 Aug, [facility] [place] [facility] [address] [id number] [place] [address]- 2488 Aug, [facility] [place] [facility] [address] [id number] [place] [address]- 1513 Aug, [facility] [place] [facility] [address] [id number] [place] [address]- 1411 Aug, [facility] [place] [facility] [address] [id number] [place] [address]- 0462 Aug, [facility] [place] [facility] [address] [id number] [place] [address]- 5682 Aug, [facility] [place] [facility] [address] [id number] [place] [address]- 3239 Aug, [facility] [place] [facility] [address] [id number] [place] [address]- 4942 Aug, [facility] [place] [facility] [address] [id number] [place] [address]- 9366 Aug, [facility] [place] [facility] [address] [id number] [place] [address]- 8462 Aug, [facility] [place] [facility] [address] [id number] [place] [address]- 1283 Aug, [facility] [place] [facility] [address] [id number] [place] [address]- 0066 Aug, [facility] [place] [facility] [address] [id number], [place] [address]- 8688 Aug, [facility] [place] [facility] [address] [id number] [place] [address]- 4998 Aug, [facility] [place] [facility] [address] [id number] [place] [address]- 3707 Aug, [facility] [place] [facility] [address] [id number] [place] [address]- 8380 Aug, [facility] [place] [facility] [address] [id number] [place] [address]- 8477 Aug, [facility] [address] [id number] [place] [address]- 5810 July, [facility] [address] [id number] [place] [address]- 1431 July, [facility] [address] [id number] [place] [address]- 7881 July, [facility] [address] [id number] [place] [address]- 8761 July, [facility] [address] [id number] [place] [address]- 0059 July, [facility] [address] [id number] [place] [address]- 5729 July, [facility] [address] [id number] [place] [address]- 0520 Jun, [facility] [address] [id number] [place] [address]- 0346 Jun, [facility] [address] [id number] [place] [address]- 2764 Jun, [facility] [address] [id number] [place] [address]- 5494 Jun, [facility] [place] [facility] [address] [id number] [place] [address]- 1511 Jun, [facility] [address] [id number] [place] [address]- 4516 Jun, [facility] [place] [facility] [address] [id number] [place] [address]- 0390 Jun, [facility] [place] [facility] [address] [id number] [place] [address]- 9212 Jun, [facility] [place] [facility] [address] [id number] [place] [address]- 2644 Jun, [facility] [place] [facility] [address] [id number] [place] 1864 Jun, [facility] [place] [facility] [address] [id number] [place] [address]- 5076 Jun, [facility] [place] [facility] [address] [id number] [place] [address]- 6481 Jun, [facility] [place] [facility] [address] [id number] [place] [address]- 4421 Jun, [facility] [place] [facility] [address] [id number] [place] [address]- 9492 Jun, [facility] [place] [facility] [address] [id number] [place] [address]- 8040 Jun, [facility] [place] [facility] [address] [id number] [place] [address]- 3688 May, [facility] [place] [facility] [address] [id number] [place] [address]- 6317 May, [facility] [place] [facility] [address] [id number] [place] [address]- 8648 May, [facility] [place] [facility] [address] [id number] [place] [address]- 1582 May, [facility] [place] [facility] [address] [id number] [place] [address]- 5100 May, [facility] [place] [facility] [address] [id number] [place] [address]- 3784 May, [facility] [place] [facility] [address] [id number] [place] [address]- 6902 May, [facility] [place] [facility] [address] [id number] [place] [address]- 4597 May, [facility] [place] [facility] [address] [id number] [place] [address]- 3347 May, [facility] [place] [facility] [address] [id number] [place] [address]- 1758 May, [facility] [place] [facility] [address] [id number] [place] [address]- 9980 May, [facility] [place] [facility] [address] [id number] [place]907 May, [facility] [place] [facility] [address] [id number] [place] [address]- 4098 May, [facility] [place] [facility] [address] [id number] [place] [address]- 3968 May, [facility] [place] [facility] [address] [id number] [place] [address]- 3069 May, [facility] [place] [facility] [address] [id number] [place] [address]- 4503 May, [facility] [place] [facility] [address] [id number] [place] [address]- 0362 May, [facility] [place] [facility] [address] [id number] [place] [address]- 0294 Apr, [facility] [place] [facility] [address] [id number] [place] [address]- 9065 Apr, [facility] [place] [facility] [address] [id number] [place] [address]- 7992 Apr, [facility] [place] [facility] [address] [id number] [place] [address]- 2516 Apr, [facility] [place] [facility] [address] [id number] [place] [address]- 7961 Apr, [facility] [place] [facility] [address] [id number] [place] [address]- 9897 Apr, [facility] [place] [facility] [address] [id number] [place] [address]- 4791 Apr, [facility] [place] [facility] [address] [id number] [place] [address]- 8592 Apr, [facility] [place] [facility] [address] [id number] [place] [address]- 7801 Apr, [facility] [place] [facility] [address] [id number] [place] [address]- 2322 Apr, [facility] [place] [facility] [address] [id number] [place] [address]- 9586 Apr, [facility] [place] [facility] [address] [id number] [place] [address]- 5438 Apr, [facility] [place] [facility] [address] [id number] [place] [address]- 4836 Apr, [facility] [place] [facility] [address] [id number] [place] [address]- 9291 Apr, [facility] [place] [facility] [address] [id number] [place] [address]- 4231 Apr, [facility] [place] [facility] [address] [id number] [place] [address]- 0589 Apr, [facility] [place] [facility] [address] [id number] [place] [address]- 0827 Mar, [facility] [place] [facility] [address] [id number] [place] [address]- 5668 Mar, [facility] [place] [facility] [address] [id number] [place] [address]- 9586 Mar, [facility] [place] [facility] [address] [id number] [place] [address]- 2081 30 Mar, 2013 [facility] [place] [facility] [address] [id number] [place] [address]- 8374 Mar, [facility] [place] [facility] [address] [id number] [place] [address]- 5976 Mar, [facility] [place] [facility] [address] [id number] [place] [address]- 3662 Mar, [facility] [place] [facility] [address] [id number], [place] [address]- 5996 18 Mar, 2013 [facility] [address] [id number] [place] [address]- 9439 Mar, [facility] [place] [facility] [address] [id number] [place] [address]- 1279 Mar, [facility] [place] [facility] [address] [facility] [id number] [place] [address]- 3302 Mar, [facility] [place] [facility] [address] [id number], [place] [address]- 8854 05 Mar, 2013 [facility] [address] [id number] [place] [address]- 4554 Mar, [facility] [place] [facility] [address] [id number] [place] [address]- 9287 Mar, [facility] [address] [id number], [place] [address]- 0228 Mar, [facility] [place] [facility] [address] [id number], [place] [address]- 1129 Mar, [facility] [place] [facility] [address] [id number], [place] [address]- 0420 Mar, [facility] [place] [facility] [address] [id number][place] 6068 Mar, [facility] [place] [facility] [address] [id number], [place] [address]- 6326 Jan, [facility] [place] [facility] [address] [id number], [place] [address]- 0550 Jan, [facility] [place] [facility] [address] [id number], [place] [address]- 2830 Jan, [facility] [place] [facility] [address] [facility] [id number], [place] [address]- 3459 Jan, [facility] [place] [facility] [address] [facility] [id number], [place] [address]- 6937 Nov, [facility] [place] [facility] [address] [id number] [place] [address]- 3105 10 Nov, 2012 [facility] [address] [id number] [place] [address]- 8050 Nov, [facility] [address] [id number] [place] [address]- 5094 Nov, [facility] [address] [id number] [place] [address]- 3398 Oct, [facility] [address] [id number] [place] [address]- 2774 Oct, [facility] [address] [id number] [place] [address]- 1005 Oct, [facility] [address] [id number] [place] [address]- 5473 Oct, [facility] [address] [id number] [place] [address]- 3016 Sep, [facility] [address] [id number] [place] [address]- 6970 Sep, [facility] [address] [id number] [place] [address]- 3146 Sep, [facility] [address] [id number] [place] [address]- 1878 Sep, [facility] [place] [facility] [address] [id number] [place] [address]- 9667 Sep, [facility] [address] [id number] [place] [address]- 8080 Sep, [facility] [place] [facility] [address] [id number] [place] [address] Sep, [facility] [place] [facility] [address] [id number] [place] [address] Sep, [facility] [place] [facility] [address] [id number] [place] [address] Sep, [facility] [address] [id number] [place] [address] Aug, [facility] [address] [id number] [place] [address] Aug, [facility] [address] [id number] [place] [address] Aug, [facility] [place] [facility] [address] [id number] [place] [address] Aug, [facility] [address] [id number] [place] [address] July, [facility] [address] [id number] [place] [address] July, [facility] [address] [id number] [place] [address] July, [facility] [address] [id number] [place] [address] July, [facility] [address] [id number] [place] [address] July, [facility] [address] [id number] [place] [address] July, [facility] [place] [facility] [address] [id number] [place] [address] July, [facility] [place] [facility] [address] [id number] [place] [address] Jun, [facility] [place] [facility] [address] [id number] [place] [address] May, [facility] [place] [facility] [address] [id number] [place] [address] May, [facility] [place] [facility] [address] [id number] [place] [address] May, [facility] [place] [facility] [address] [id number] [place] [address] May, [facility] [address] [facility] [id number] [place] [address] May, [facility] [address] [facility] [id number], [place] [address] May, [facility] [address] [facility] [id number], [place] [address] May, [facility] [address] [facility] [id number], [place] [address] May, IMMUNIZATIONS No Known Immunizations SOCIAL HISTORY Never Assessed REASON FOR VISIT Requests return call PLAN OF CARE VITAL SIGNS MEDICATIONS Medication Instructions Dosage Frequency Start Date End Date Duration Status Chlorzoxazone 500 mg Orally 2 times a day 1 tablet 12h Jan,Apr 30 day(s) Active RESULTS No Results PROCEDURES No [...]
--- OUTSIDE RECORDS SUMMARY | 2018-03-12 21:17 | XMS REPORT ---
Author Author MCKENNA HEBERT Organization [facility] Address [address] [place] [address] Care Team Providers Care Curriculum Coordinator Name Role Phone MCKENNA HEBERT Unavailable PROBLEMS Type Condition ICD9-CM Code VPD05-EW Code Onset Dates Condition Status SNOMED Code Problem Intra-dialytic hypotension I95.3 Active 761879764 Problem Seasonal allergic rhinitis due to other allergic trigger J30.89 Active 470120821 Problem Chronic congestive heart failure, unspecified congestive heart failure type I50.9 Active 34010350 Problem Self-care deficit for toileting R46.0 Active 679111412 Problem Primary insomnia F51.01 Active 8971858 Problem Angina pectoris I20.9 Active 939867157 Problem Chronic congestive heart failure, unspecified heart failure type I50.9 Active 53317557 Problem 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 Active 5917705 Problem Other chronic pain G89.29 Active 93019510 Problem Diabetes type 2, controlled E11.9 Active 38278734 Problem Renal failure N19 Active 20626577 Problem Neuropathy G62.9 Active 825820296 Problem Cellulitis of right lower extremity L03.115 Active 310700178 Problem Amput below knee, unilat S88.119A Active 97306068 ALLERGIES No Information ENCOUNTERS Encounter Location Date Diagnosis [facility] [address] [facility] [id number] [address] Dec, [facility] [address] [id number] [address] 7029 Dec, [facility] [address] [place] [address] 66698- 0776 Dec, [facility] [address] [id number] [address] 3805 Nov, Pneumonia due to infectious organism, unspecified laterality , unspecified part of lung J18.9 and Self-care deficit for toileting R46.0 [facility] [address] [place] [address] 78399- 6984 14 Nov, 2017 [facility] [id number] [place] [address] 41335- 7322 16 Oct, 2017 Diabetes type 2, controlled E11.9 ; Primary insomnia F51.01 and Bilateral headaches R51 [facility] [id number] [place] [address] 04166- 0303 Oct, [facility] [id number] [place] [address] 11150- 9795 Sep, [facility] [id number] [place] [address] [id number] Sep, Dental examination Z01.20 and Dental caries K02.[address] [id number] [place] [address] 82263- 4806 Sep, [facility] [id number] [place] [address] 62686- 0743 Sep, [facility] [id number] [place] [address] 58235- 5304 Sep, Other chronic pain G89.29 and Pain in right knee M25.561 [facility] [id number] [place] [address] 09493- 7705 Sep, [facility] [id number] [place] [address] 89109- 8687 Aug, [facility] [id number] [place] [address] 64028- 6111 Aug, 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 [facility] [id number] [place] [address] 73233- 3820 15 Aug, 2017 [facility] [id number] [place] [address] 68528- 0293 Aug, Diabetes type 2, controlled E11.9 and Acute pain of right knee M25.561 [facility] [address], [place] [address]- 3805 Aug, [facility] [address], [place] [address]- 6312 July, [facility] [address]005[address], [place] [address]- 2804 Jun, [facility] [id number] [place] [address] 73902- 7314 Jun, [facility] [address], [place] [address]- 5900 Jun, Diabetes type 2, controlled E11.9 [facility] [address]005[address], [place] [address]- 1857 Jun, [facility] [address] [place] [address] 40037- 0948 May, [facility] [address] [address]- 4652 May, [facility] [address], [place] [address]- 7740 May, [facility] [address], [place] [address]- 4098 May, Chronic congestive heart failure, unspecified congestive heart failure type I50.9 [facility] [address], [place] [address]- 0429 May, Diabetes type 2, controlled E11.9 ; BMI 50.0-59.9, adult Z68.43 ; Chronic congestive heart failure, unspecified heart failure type I50.9 ; Angina pectoris I20.9 ; Seasonal allergic rhinitis due to other allergic trigger J30.89 and Renal failure N19 [facility] [address] [id number] [address] May, [facility] [address], [place] [address]- 9167 May, [facility] [address] [place] [address] 90959- 1298 May, [facility] [id number] [place] [address] 83446- 3872 May, [facility] [id number] [place] [address] 93948- 1100 May, [facility] [id number] [place] [address] 18691- 2416 Apr, BMI 50.0-59.9, adult Z68.43 [facility] [address] 97855- 7031 Apr, BMI 50.0-59.9, adult Z68.43 ; Post-procedural fever R50.82 and Bronchitis J40 [facility] [id number] [place] [address] 75854- 0361 Apr, Chronic congestive heart failure, unspecified congestive heart failure type I50.9 [facility] [id number] [place] [address] 00995- 2008 Jan, [facility] [id number] [place] [address] 61219- 6299 Jan, Diabetes type 2, controlled E11.9 [facility] [id number] [place] [address] 77847- 2373 Jan, Neuropathy G62.9 [facility] [id number] [place] [address] 04718- 1218 Jan, [facility] [id number] [place] [address] 35914- 9953 Jan, [facility] [id number] [place] [address] 28798- 2574 Jan, [facility] [id number] [place] [address] 54946- 8916 Jan, [facility] [address] [facility] [id number] [place] [address]- 7360 Jan, [facility] [address] [facility] [id number] [place] [address]- 2503 Dec, [facility] [address] [facility] [id number] [place] [address]- 7093 Dec, [facility] [address] [facility] [id number], [place] [address]- 9655 Dec, Diabetes type 2, controlled E11.9 [facility] [address] [id number] [place] [address]- 8346 Dec, [facility] [address] [facility] [id number], [place] [address]- 1369 Dec, [facility] [address] [facility] [id number], [place] [address]- 8326 Dec, Chronic congestive heart failure, unspecified congestive heart failure type I50.9 [facility] [address] [facility] [id number] [place] [address]- 8870 Dec, [facility] [address] [facility] [id number] [place] [address]- 7349 Dec, [facility] [address] [facility] [id number], [place] [address]- 3306 Nov, Chronic congestive heart failure, unspecified congestive heart failure type I50.9 [facility] [address] [facility] [id number], [place] [address]- 0730 Nov, Chronic congestive heart failure, unspecified congestive heart failure type I50.9 [facility] [address] [facility] [id number] [place] [address]- 2436 Nov, [facility] [address] [facility] [id number] [place] [address]- 5663 Oct, [facility] [address] [facility] [id number] [place] [address]- 9930 Oct, [facility] [address] [facility] [id number], [place] [address]- 5468 Oct, Chronic congestive heart failure, unspecified congestive heart failure type I50.9 [facility] [address] [facility] [id number], [place] [address]- 9616 Oct, [facility] [address], [place] [address]- 9992 Oct, Pneumonia of both lungs due to infectious organism, unspecified part of lung J18.9 [facility] [address] [facility] [id number], [place] [address]- 9905 Oct, [facility] [address] [place] [address] 69180- 2347 Oct, Diabetes type 2, controlled E11.9 [facility] [address], [place] [address]- 6913 Oct, Diabetes type 2, controlled E11.9 [facility] [address]00565[address], [place] [address]- 9651 Sep, [facility] [address] [place] [address] 29419- 9544 Sep, Neuropathy G62.9 [facility] [address], [place] [address]- 4512 Aug, Intra-dialytic hypotension I95.3 [facility] [address]00565[address], [place] [address]- 6646 July, [facility] [address], [place] [address] 2546 July, [facility] [address], [place] [address]- 4456 July, [facility] [address] [id number], [place] [address]- 6756 July, Amput below knee, unilat S88.119A [facility] [id number] [place] [address]- 8771 May, [facility] [address] [place] [address]- 9843 May, Neuropathy G62.9 [facility] [address] [place] [address]- 3345 May, [facility] [address] [place] [address]- 1758 May, [facility] [id number] [place] [address]- 5168 May, [facility] [id number] [place] [address]- 1915 May, [facility] [id number] [place] [address]- 0491 May, Neuropathy G62.9 [facility] [address] [place] [address]- 1002 Apr, [facility] [id number] [place] [address]- 9805 Apr, [facility] [id number] [place] [address]- 3657 Apr, Diabetes type 2, controlled E11.9 and Renal failure N19 [facility] [address] [place] [address] -0867 Apr, [facility] [id number] [place] [address]- 6372 Apr, [facility] [id number] [place] [address]- 3593 Mar, [facility] [id number] [place] [address]- 0926 Mar, [facility] [id number] [place] [address]- 3532 Mar, [facility] [address], [place] [address]- 0084 Mar, [facility] [id number] [place] [address] 28476- 8543 Mar, [facility] [id number] [place] [address], [place] [address]- 6068 Jan, Localized edema R60.0 [facility] [id number] [place] [address] 52230- 6366 Jan, [facility] [id number] [place] [address] 04723- 5660 Jan, [facility] [id number] [place] [address], [place] [address]- 8352 Jan, [facility] [id number] [place] [address], [place] [address]- 5291 Jan, [facility] [id number] [place] [address] 37275- 8369 Jan, [facility] [id number] [place] [address] 54430- 3892 Jan, [facility] [id number] [place] [address] 61827- 2154 Dec, Diabetes type 2, controlled E11.9 and Chronic nonintractable headache, unspecified headache type R51 [facility] [address] [place] [address] 54123- 7820 Dec, [facility] [id number] [address]- 0221 Dec, [facility] [id number] [place] [address] 73631- 4399 Nov, [facility] [address] [id number] [address]- 2412 Nov, [facility] [address] [place] [address] 02006- 4731 Oct, [facility] [address], [place] [address] 2549 Oct, Migraine without status migrainosus, not intractable, unspecified migraine type G43.909 [facility] [address], [place] [address] 2546 Oct, [facility] [address] [place] [address] 05557 2546 Sep, Amput below knee, unilat S88.119A and Neuropathy G62.9 [facility] [address] [id number], [place] [address] 2546 Sep, [facility] [id number] [place] [address] 14231 2546 Sep, [facility] [id number] [place] [address] 41735- 7776 Sep, [facility] [id number] [place] [address] 28953 2542 Aug, [facility] [address] [place] [address] 01803- 4244 Aug, [facility] [address] [place] [address] 82069 2540 Aug, Diabetes type 2, controlled E11.9 [facility] [address], [place] [address] 2546 Aug, [facility] [address], [place] [address] 2542 Jun, Diabetes type 2, controlled E11.9 and Neuropathy G62.9 [facility] [address] [place] [address] 53506 2546 Jun, [facility] [address], [place] [address] 2546 Jun, [facility] [address] [place] [address] 80985- 6330 Jun, [facility] [address] [facility] [id number] [place] [address]- 9178 Jun, [facility] [id number] [place] [address]- 9975 May, [facility] [id number] [place] [address]- 4451 May, Diabetes type 2, controlled E11.9 [facility] [address] [place] [address]- 4583 May, [facility] [id number] [place] [address], [place] [address]- 4492 May, [facility] [address] [place] [address]- 4144 26 May, 2015 [facility] [address] [place] [address], [place] [address]- 7695 25 May, 2015 [facility] [address] [place] [address]- 9099 17 May, 2015 [facility] [address] [place] [address], [place] [address]- 7689 16 May, 2015 [facility] [address] [address]- 7066 16 May, 2015 [facility] [address], [place] [address]- 1337 15 May, 2015 COPD (chronic obstructive pulmonary disease) J44.9 [facility] [id number] [place] [address]- 4001 15 May, 2015 [facility] [address], [place] [address]- 3363 12 May, 2015 [facility] [address], [place] [address]- 9187 May, [facility] [address], [place] [address]- 5328 May, [facility] [id number] [place] [address]- 6421 May, [facility] [address], [place] [address]- 0680 May, Renal failure N19 and Pneumonia, organism unspecified, unspecified laterality, unspecified part of lung J18.9 [facility] [address], [place] [address]- 6680 Apr, [facility] [id number] [place] [address]- 0345 Apr, [facility] [address], [place] [address]- 9496 Apr, [facility] [address], [place] [address]- 1619 Apr, Diabetes mellitus 250.00 [facility] [address], [place] [address]- 6194 Apr, [facility] [address], [place] [address]- 0146 Apr, [facility] [address], [place] [address]- 8652 Apr, [facility] [address], [place] [address]- 2202 Apr, [facility] [id number] [address]- 5468 Mar, [facility] [id number], [place] [address]- 2363 Mar, [facility] [address], [place] [address]- 6821 Mar, [facility] [id number], [place] [address]- 6816 16 Mar, 2015 Renal failure N19 [facility] [place] [facility] [address] [id number] [place] [address]- 4923 14 Mar, 2015 [facility] [place] [facility] [id number] [place] [address], [place] [address]- 0570 Mar, [facility] [place] [facility] [address] [id number] [place] [address]- 4190 Mar, [facility] [place] [facility] [id number] [place] [address], [place] [address]- 5287 24 Jan, 2015 [facility] [place] [facility] [address] [id number] [place] [address], [place] [address]- 1545 Jan, [facility] [place] [facility] [id number] [place] [address], [place] [address]- 9343 Jan, [facility] [place] [facility] [address] [facility] [id number] [place] [address]- 8386 Jan, [facility] [place] [facility] [address] [facility] [id number] [place] [address], [place] [address]- 5389 Dec, [facility] [place] [facility] [address] [facility] [id number] [place] [address]- 6030 Dec, [facility] [place] [facility] [address] [facility] [id number] [place] [address]- 6779 Dec, [facility] [place] [facility] [address] [facility] [id number] [place] [address]- 0384 Nov, [facility] [place] [facility] [address] [id number], [place] [address]- 2747 19 Nov, 2014 [facility] [place] [facility] [address] [facility] [id number] [place] [address]- 7708 14 Nov, 2014 [facility] [place] [facility] [address] [id number] [place] [address]- 7489 Oct, [facility] [place] [facility] [address] [facility] [id number] [place] [address]- 2626 Oct, [facility] [place] [facility] [address] [facility] [id number] [place] [address] 06787- 8336 Oct, Renal failure 586 and Obesity 278.00 [facility] [address], [place] [address]- 2457 Oct, [facility] [address] [facility] [id number], [place] [address]- 1990 Oct, [facility] [address], [place] [address]- 4957 Oct, [facility] [address], [place] [address]- 1226 Sep, [facility] [address], [place] [address]- 6213 Sep, [facility] [address], [place] [address]- 2668 Sep, Diabetes mellitus 250.00 and Congestive heart failure, unspecified 428.0 [facility] [address], [place] [address]- 2703 Aug, [facility] [address], [place] [address]- 6566 Aug, [facility] [address], [place] [address]- 8494 Aug, [facility] [address], [place] [address]- 0755 July, [facility] [address], [place] [address]- 5755 July, [facility] [id number] [address]- 1510 July, Heart murmur, systolic 785.2 [facility] [id number], [place] [address]- 9986 July, [facility] [id number] [address]- 5465 July, [facility] [address] [facility] [id number] [place] [address] 14 Jun, 2014 [facility] [place] [facility] [address] [id number] [place] [address] 13 Jun, 2014 [facility] [place] [facility] [address] [id number] [place] [address] 23 May, 2014 [facility] [place] [facility] [address] [id number] [place] [address] 23 May, 2014 [facility] [place] [facility] [address] [id number] [place] [address] 18 May, 2014 [facility] [place] [facility] [address] [id number] [place] [address] 18 May, 2014 [facility] [place] [facility] [address] [id number] [place] [address] 16 May, 2014 [facility] [place] [facility] [address] [id number] [place] [address] 16 May, 2014 [facility] [place] [facility] [address] [id number] [place] [address] 10 May, 2014 [facility] [place] [facility] [address] [id number] [place] [address] 10 May, 2014 [facility] [place] [facility] [address] [id number] [place] [address] May, [facility] [place] [facility] [address] [id number] [place] [address] May, [facility] [place] [facility] [address] [id number] [place] [address] May, [facility] [place] [facility] [address] [id number] [place] [address] May, [facility] [place] [facility] [address] [id number] [place] [address] May, [facility] [place] [facility] [address] [id number] [place] [address] May, 2014 [facility] [place] [facility] [address] [id number] [place] [address] 18 May, 2014 [facility] [place] [facility] [address] [facility] [id number] [place] [address]- [address] 18 May, 2014 [facility] [place] [facility] [address] [facility] [id number] [place] [address] 18 May, 2014 [facility] [place] [facility] [address] [facility] [id number] [place] [address]- [address] May, 2014 [facility] [place] [facility] [address] [id number] [place] [address] May, 2014 [facility] [place] [facility] [address] [facility] [id number] [place] [address] May, 2014 [facility] [place] [facility] [address] [facility] [id number] [place] [address] 16 May, 2014 [facility] [place] [facility] [address] [facility] [id number] [place] [address] May, 2014 [facility] [place] [facility] [address] [facility] [id number] [place] [address] May, 2014 [facility] [place] [facility] [address] [facility] [id number] [place] [address] May, 2014 [facility] [place] [facility] [address] [facility] [id number] [place] [address]- [address]57 May, 2014 [facility] [place] [facility] [address] [facility] [id number] [place] [address]48 May, 2014 [facility] [place] [facility] [address] [facility] [id number] [place] [address] 1753 Apr, [facility] [place] [facility] [address] [facility] [id number] [place] [address] 1170 Apr, [facility] [place] [facility] [address] [facility] [id number], [place] [address] Apr, [facility] [place] [facility] [address] [id number] [place] [address] 3088 13 Apr, 2014 [facility] [place] [facility] [address] [id number] [place] [address]- 5283 Apr, [facility] [place] [facility] [address] [id number] [place] [address]- 7413 Apr, [facility] [place] [facility] [address] [id number] [place] [address]- 0541 Apr, [facility] [place] [facility] [address] [id number] [place] [address]- 1777 Apr, [facility] [place] [facility] [address] [id number] [place] [address] 6106 Mar, [facility] [place] [facility] [address] [id number] [place] [address]- 1613 Mar, [facility] [place] [facility] [address] [id number] [place] [address]- 6726 Mar, [facility] [place] [facility] [address] [id number] [place] [address]- 7330 Mar, [facility] [place] [facility] [address] [id number] [place] [address]- 9204 Mar, [facility] [place] [facility] [address] [id number] [place] [address]- 8681 Mar, [facility] [place] [facility] [address] [id number] [place] [address]- 3945 Mar, [facility] [place] [facility] [address] [id number] [place] [address]- 9516 Mar, [facility] [place] [facility] [address] [id number] [place] [address]- 9884 Mar, [facility] [place] [facility] [address] [id number] [place] [address] Mar, [facility] [place] [facility] [address] [id number] [place] [address]- 8828 Mar, [facility] [place] [facility] [address] [id number] [place] [address]- 5496 Mar, [facility] [place] [facility] [address] [id number] [place] [address]- 2156 Mar, [facility] [place] [facility] [address] [id number] [place] [address]- 6666 Mar, [facility] [place] [facility] [address] [id number] [place] [address]- 6197 Mar, [facility] [place] [facility] [address] [id number] [place] [address]- 6637 Mar, [facility] [place] [facility] [address] [id number] [place] [address]- 9341 Mar, [facility] [place] [facility] [address] [id number] [place] [address]- 9302 Mar, [facility] [place] [facility] [address] [id number] [place] [address]- 3363 Mar, [facility] [place] [facility] [address] [id number] [place] [address]- 1919 Mar, [facility] [place] [facility] [address] [id number] [place] [address]- 0794 Mar, [facility] [place] [facility] [address] [id number] [place] [address]- 5004 Mar, [facility] [place] [facility] [address] [id number] [place] [address]- 1565 Jan, [facility] [place] [facility] [address] [id number] [place] [address]- 2019 Jan, [facility] [place] [facility] [address] [id number] [place] [address]- 7349 Jan, [facility] [place] [facility] [address] [id number] [place] [address]- 8973 Jan, [facility] [place] [facility] [address] [id number] [place] [address]- 3397 Jan, [facility] [place] [facility] [address] [id number] [place] [address]- 5965 Jan, [facility] [place] [facility] [address] [id number] [place] [address]- 1475 Jan, [facility] [place] [facility] [address] [id number] [place] [address]- 1374 Jan, [facility] [place] [facility] [address] [id number] [place] [address]- 0979 Jan, [facility] [place] [facility] [address] [id number] [place] [address]- 8110 Jan, [facility] [place] [facility] [address] [id number] [place] [address]- 3408 Jan, [facility] [place] [facility] [address] [id number] [place] [address]- 2695 Jan, [facility] [place] [facility] [address] [id number] [place] [address]- 1321 Jan, [facility] [place] [facility] [address] [id number] [place] [address]- 5120 Jan, [facility] [place] [facility] [address] [id number] [place] [address]- 1775 Jan, [facility] [place] [facility] [address] [id number] [place] [address]- 5908 Jan, [facility] [place] [facility] [address] [id number] [place] [address]- 9320 Jan, [facility] [place] [facility] [address] [id number] [place] [address]- 9209 Jan, [facility] [place] [facility] [address] [id number] [place] [address]- 1823 Jan, [facility] [place] [facility] [address] [id number] [place] [address]- 8194 Jan, [facility] [place] [facility] [address] [id number] [place] [address]- 0757 Dec, [facility] [place] [facility] [address] [id number] [place] [address]- 3993 Dec, [facility] [place] [facility] [address] [id number] [place] [address]- 0162 Dec, [facility] [place] [facility] [address] [id number] [place] [address]- 3109 Dec, [facility] [place] [facility] [address] [id number] [place] [address]- 0504 Dec, [facility] [place] [facility] [address] [id number] [place] [address]- 0284 Dec, [facility] [place] [facility] [address] [id number] [place] [address]- 3504 Dec, [facility] [place] [facility] [address] [id number] [place] [address]- 7710 Dec, [facility] [place] [facility] [address] [id number] [place] [address]- 0328 Dec, [facility] [place] [facility] [address] [id number], [place] [address]- 1187 Dec, [facility] [place] [facility] [address] [id number], [place] [address]- 6782 Dec, [facility] [place] [facility] [address] [id number], [place] [address]- 8971 Dec, [facility] [place] [facility] [address] [id number] [place] [address]- 7349 Dec, [facility] [place] [facility] [address] [id number], [place] [address]- 4435 Dec, [facility] [place] [facility] [address] [id number] [place] [address]- 4306 Dec, [facility] [place] [facility] [address] [id number] [place] [address]- 2704 22 Sep, 2013 [facility] [place] [facility] [address] [id number] [place] [address]- 6905 22 Sep, 2013 [facility] [place] [facility] [address] [id number] [place] [address]- 7576 19 Nov, 2013 [facility] [place] [facility] [address] [id number] [place] [address] 2546 19 Nov, 2013 [facility] [place] [facility] [address] [id number] [place] [address] 2546 13 Nov, 2013 [facility] [place] [facility] [address] [id number] [place] [address]- 3444 13 Nov, 2013 [facility] [place] [facility] [address] [id number] [place] [address]- 2542 10 Nov, 2013 [facility] [place] [facility] [address] [id number] [place] [address]- 7399 10 Nov, 2013 [facility] [place] [facility] [address] [id number] [place] [address]- 7619 08 Nov, 2013 [facility] [place] [facility] [address] [id number] [place] [address]- 0362 05 Nov, 2013 [facility] [place] [facility] [address] [id number] [place] [address]- 5275 05 Nov, 2013 [facility] [place] [facility] [address] [id number] [place] [address] 254 Nov, 2013 [facility] [place] [facility] [address] [id number] [place] [address]- 2547 Nov, 2013 [facility] [place] [facility] [address] [id number] [place] [address]- 5511 Oct, [facility] [place] [facility] [address] [id number] [place] [address]- 9131 Oct, [facility] [place] [facility] [address] [id number] [place] [address]- 5389 Oct, [facility] [place] [facility] [address] [id number] [place] [address]- 9602 Oct, [facility] [place] [facility] [address] [id number] [place] [address]- 0812 Oct, [facility] [place] [facility] [address] [id number] [place] [address]- 4199 Sep, [facility] [place] [facility] [address] [id number] [place] [address]- 9910 Sep, [facility] [place] [facility] [address] [id number] [place] [address]- 2477 Sep, [facility] [place] [facility] [address] [id number] [place] [address]- 4820 Sep, [facility] [place] [facility] [address] [id number] [place] [address]- 7330 Aug, [facility] [place] [facility] [address] [id number] [place] [address]- 1519 Aug, [facility] [place] [facility] [address] [id number] [place] [address]- 3722 Aug, [facility] [place] [facility] [address] [id number] [place] [address]- 1825 Aug, [facility] [place] [facility] [address] [id number] [place] [address]- 7822 Aug, [facility] [place] [facility] [address] [id number] [place] [address]- 4835 Aug, [facility] [place] [facility] [address] [id number] [place] [address]- 6980 Aug, [facility] [place] [facility] [address] [id number] [place] [address]- 5412 Aug, [facility] [place] [facility] [address] [id number] [place] [address]- 4991 Aug, [facility] [place] [facility] [address] [id number] [place] [address]- 1314 Aug, [facility] [place] [facility] [address] [id number] [place] [address]- 2648 Aug, [facility] [place] [facility] [address] [id number] [place] [address]- 8278 Aug, [facility] [place] [facility] [address] [id number] [place] [address]- 9636 Aug, [facility] [place] [facility] [address] [id number] [place] [address]- 6290 Aug, [facility] [place] [facility] [address] [id number] [place] [address]- 8345 Aug, [facility] [place] [facility] [address] [id number] [place] [address]- 9136 Aug, [facility] [place] [facility] [address] [id number] [place] [address]- 6293 Aug, [facility] [place] [facility] [address] [id number] [place] [address]- 9131 Aug, [facility] [place] [facility] [address] [id number] [place] [address]- 0612 Aug, [facility] [place] [facility] [address] [id number] [place] [address]- 4960 Aug, [facility] [place] [facility] [address] [id number] [place] [address]- 3865 Aug, [facility] [place] [facility] [address] [id number], [place] [address]- 8416 Aug, [facility] [place] [facility] [address] [id number] [place] [address]- 0913 Aug, [facility] [place] [facility] [address] [id number] [place] [address]- 6534 Aug, [facility] [place] [facility] [address] [id number] [place] [address]- 8207 July, [facility] [place] [facility] [address] [id number] [place] [address]- 7655 July, [facility] [address] [id number] [place] [address]- 5949 July, [facility] [address] [id number] [place] [address]- 1751 July, [facility] [address] [id number] [place] [address]- 6771 July, [facility] [address] [id number] [place] [address]- 7461 July, [facility] [address] [id number] [place] [address]- 2290 Jun, [facility] [address] [id number] [place] [address]- 6986 Jun, [facility] [address] [id number] [place] [address]- 5772 Jun, [facility] [address] [id number] [place] [address]- 5483 Jun, [facility] [address] [id number] [place] [address]- 1784 Jun, [facility] [address] [id number] [place] [address]- 6830 Jun, [facility] [place] [facility] [address] [id number] [place] [address]- 4722 Jun, [facility] [address] [id number] [place] [address]- 2366 Jun, [facility] [place] [facility] [address] [id number] [place] [address]- 8328 Jun, [facility] [place] [facility] [address] [id number] [place] [address]- 1777 Jun, [facility] [place] [facility] [address] [id number] [place] [address]- 9919 Jun, [facility] [place] [facility] [address] [id number] [place] [address]- 7288 Jun, [facility] [place] [facility] [address] [id number] [place] [address]878 Jun, [facility] [place] [facility] [address] [id number] [place] [address]- 3097 Jun, [facility] [place] [facility] [address] [id number] [place] [address]- 9229 Jun, [facility] [place] [facility] [address] [id number] [place] [address]- 8417 May, [facility] [place] [facility] [address] [id number] [place] [address]- 6338 May, [facility] [place] [facility] [address] [id number] [place] [address]- 0942 May, [facility] [place] [facility] [address] [id number] [place] [address]- 8305 May, [facility] [place] [facility] [address] [id number] [place] [address]- 6014 May, [facility] [place] [facility] [address] [id number] [place] [address]- 9442 May, [facility] [place] [facility] [address] [id number] [place] [address]- 0887 May, [facility] [place] [facility] [address] [id number] [place] [address]- 9332 May, [facility] [place] [facility] [address] [id number] [place] [address]- 3152 May, [facility] [place] [facility] [address] [id number] [place] 2973 May, [facility] [place] [facility] [address] [id number] [place] [address]- 6705 May, [facility] [place] [facility] [address] [id number] [place] [address]- 0881 May, [facility] [place] [facility] [address] [id number] [place] [address]- 0948 May, [facility] [place] [facility] [address] [id number] [place] 1683 May, [facility] [place] [facility] [address] [id number] [place] [address]- 4266 May, [facility] [place] [facility] [address] [id number] [place] [address]- 1087 May, [facility] [place] [facility] [address] [id number] [place] [address]- 3078 May, [facility] [place] [facility] [address] [id number] [place] [address]- 2713 Apr, [facility] [place] [facility] [address] [id number] [place] [address]- 9610 Apr, [facility] [place] [facility] [address] [id number] [place] [address]- 3482 Apr, [facility] [place] [facility] [address] [id number] [place] [address]- 4334 Apr, [facility] [place] [facility] [address] [id number] [place] [address]- 7475 Apr, [facility] [place] [facility] [address] [id number] [place] [address]- 5239 Apr, [facility] [place] [facility] [address] [id number] [place] [address]- 8273 Apr, [facility] [place] [facility] [address] [id number] [place] [address]- 4178 Apr, [facility] [place] [facility] [address] [id number] [place] [address]- 7063 Apr, [facility] [place] [facility] [address] [id number] [place] [address]- 7458 Apr, [facility] [place] [facility] [address] [id number] [place] [address]- 4507 08 Apr, 2013 [facility] [place] [facility] [address] [id number] [place] [address]- 0110 Apr, [facility] [place] [facility] [address] [id number] [place] [address]- 3009 Apr, [facility] [place] [facility] [address] [id number] [place] [address]- 6498 Apr, [facility] [place] [facility] [address] [id number] [place] [address]- 7925 Apr, [facility] [place] [facility] [address] [id number] [place] [address]- 9176 Apr, [facility] [place] [facility] [address] [id number] [place] [address]- 0728 Mar, [facility] [place] [facility] [address] [id number] [place] [address]- 8652 30 Mar, 2013 [facility] [place] [facility] [address] [id number] [place] [address]- 8154 30 Mar, 2013 [facility] [place] [facility] [address] [id number] [place] [address]- 7583 30 Mar, 2013 [facility] [place] [facility] [address] [id number] [place] [address]- 7559 18 Mar, 2013 [facility] [place] [facility] [address] [id number] [place] [address]- 3070 18 Mar, 2013 [facility] [place] [facility] [address] [id number] [place] [address]- 9121 18 Mar, 2013 [facility] [place] [facility] [address] [id number] [place] [address]- 4866 18 Mar, 2013 [facility] [place] [facility] [address] [id number] [place] [address]- 9829 17 Mar, 2013 [facility] [place] [facility] [address] [id number], [place] [address]- 4026 Mar, [facility] [address] [id number] [place] [address]- 6497 05 Mar, 2013 [facility] [place] [facility] [address] [id number] [place] [address]- 7042 05 Mar, 2013 [facility] [place] [facility] [address] [facility] [id number] [place] [address]- 1878 Mar, [facility] [place] [facility] [address] [id number], [place] [address]- 1800 Mar, [facility] [place] [facility] [address] [id number] [place] [address]- 4014 Mar, [facility] [place] [facility] [address] [id number] [place] [address]- 0117 Mar, [facility] [place] [facility] [address] [id number] [place] [address]- 1119 Mar, [facility] [place] [facility] [address] [id number], [place] [address]- 3523 Mar, [facility] [place] [facility] [address] [id number], [place] [address]- 0104 Jan, [facility] [place] [facility] [address] [id number], [place] [address]- 8808 Jan, [facility] [place] [facility] [address] [id number], [place] [address]- 5754 Jan, [facility] [place] [facility] [address] [id number], [place] [address]- 9360 Jan, [facility] [place] [facility] [address] [id number], [place] [address]- 5701 Nov, [facility] [place] [facility] [address] [id number], [place] [address]- 9216 10 Nov, 2012 [facility] [place] [facility] [address] [facility] [id number], [place] [address]- 3167 09 Nov, 2012 [facility] [place] [facility] [address] [id number] [place] [address]- 8792 Nov, [facility] [address] [id number] [place] [address]- 5136 Oct, [facility] [address] [id number] [place] [address]- 1071 Oct, [facility] [address] [id number] [place] [address] Oct, [facility] [address] [id number] [place] [address] Oct, [facility] [address] [id number] [place] [address] Sep, [facility] [address] [id number] [place] [address] Sep, [facility] [address] [id number] [place] [address] Sep, [facility] [address] [id number] [place] [address] Sep, [facility] [address] [id number] [place] [address] Sep, [facility] [address] [id number] [place] [address] Sep, [facility] [place] [facility] [address] [id number] [place] [address] Sep, [facility] [address] [id number] [place] [address] Sep, [facility] [place] [facility] [address] [id number] [place] [address] Sep, [facility] [place] [facility] [address] [id number] [place] [address] Aug, [facility] [place] [facility] [address] [id number] [place] [address] Aug, [facility] [address] [id number] [place] [address] Aug, [facility] [address] [id number] [place] [address] Aug, [facility] [address] [id number] [place] [address] July, [facility] [place] [facility] [address] [id number] [place] [address] July, [facility] [address] [id number] [place] [address] July, [facility] [address] [id number] [place] [address] July, [facility] [address] [id number] [place] [address] July, [facility] [address] [id number] [place] [address] July, [facility] [address] [id number] [place] [address] July, [facility] [address] [id number] [place] [address] Jun, [facility] [place] [facility] [address] [id number] [place] [address] May, [facility] [place] [facility] [address] [id number], [place] [address] May, [facility] [place] [facility] [address] [id number] [place] [address] May, [facility] [place] [facility] [address] [id number] [place] [address] May, [facility] [place] [facility] [address] [id number] [place] [address] May, [facility] [place] [facility] [address] [id number], [place] [address] May, [facility] [address] [facility] [id number] [place] [address] May, [facility] [address] [facility] [id number] [place] [address] May, IMMUNIZATIONS No Known Immunizations SOCIAL HISTORY Never Assessed REASON FOR VISIT Medication refill request// PLAN OF CARE VITAL SIGNS MEDICATIONS Medication Instructions Dosage Frequency Start Date End Date Duration Status Amlodipine Besylate 10 MG TAKE 1 TABLET BY MOUTH DAILY 30 Active Gabapentin 300 MG Orally Three times a day 1 capsule 8h 30 Active RESULTS No Results PROCEDURES No [...]
--- OUTSIDE RECORDS SUMMARY | 2018-03-12 21:18 | XMS REPORT ---
Author Author MCKENNA HEBERT Organization [facility] Address [address] [place] [address] Care Team Providers Care Maintenance Department Technician Name Role Phone MCKENNA HEBERT Unavailable PROBLEMS Type Condition ICD9-CM Code [id number] Code Onset Dates Condition Status SNOMED Code Problem Intra-dialytic hypotension I95.3 Active 647048749 Problem Seasonal allergic rhinitis due to other allergic trigger J30.89 Active 300171494 Problem Chronic congestive heart failure, unspecified congestive heart failure type I50.9 Active 95131432 Problem Self-care deficit for toileting R46.0 Active 126568994 Problem Primary insomnia F51.01 Active 1685153 Problem Angina pectoris I20.9 Active 229774461 Problem Chronic congestive heart failure, unspecified heart failure type I50.9 Active 61865790 Problem 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 Active 3167969 Problem Other chronic pain G89.29 Active 99278454 Problem Diabetes type 2, controlled E11.9 Active 83446848 Problem Renal failure N19 Active 56987445 Problem Neuropathy G62.9 Active 111394519 Problem Cellulitis of right lower extremity L03.115 Active 918787048 Problem Amput below knee, unilat S88.119A Active 33301488 ALLERGIES No Information ENCOUNTERS Encounter Location Date Diagnosis [facility] [id number] [address] Dec, [facility] [id number] [address] 1138 Dec, [facility] [id number] [address] 1997 Nov, Pneumonia due to infectious organism, unspecified laterality , unspecified part of lung J18.9 and Self-care deficit for toileting R46.0 [facility] [id number] [address] 6064 14 Nov, 2017 [facility] [address] [place] [address] 92427- 5223 16 Oct, 2017 Diabetes type 2, controlled E11.9 ; Primary insomnia F51.01 and Bilateral headaches R51 [facility] [address], [place] [address] 2354 Oct, [facility] [id number] [place] [address] 62188- 8735 Sep, [facility] [address] [address] Sep, Dental examination Z01.20 and Dental caries K02.9 [facility] [id number] [place] [address] 25103- 3909 Sep, [facility] [id number] [place] [address] 15304- 3710 Sep, [facility] [id number] [place] [address] 44596- 7574 Sep, Other chronic pain G89.29 and Pain in right knee M25.561 [facility] [id number] [place] [address] 30422- 7914 05 Sep, 2017 [facility] [address] [place] [address] 87253- 7016 Aug, [facility] [address] [place] [address] 81905- 2133 Aug, 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 [facility] [address] [place] [address] 60136- 9653 15 Aug, 2017 [facility] [id number] [place] [address] 41935- 3494 11 Aug, 2017 Diabetes type 2, controlled E11.9 and Acute pain of right knee M25.561 [facility] [id number] [place] [address] 18940- 2989 Aug, [facility] [address], [place] [address]- 9547 July, [facility] [address], [place] [address]- 4497 Jun, [facility] [address], [place] [address]- 3076 Jun, [facility] [id number] [place] [address] 74903- 6770 Jun, Diabetes type 2, controlled E11.9 [facility] [address], [place] [address]- 3598 Jun, [facility] [address], [place] [address]- 3873 May, [facility] [address] [place] [address] 29049- 9461 May, [facility] [address], [place] [address]- 4005 May, [facility] [address], [place] [address]- 3079 May, Chronic congestive heart failure, unspecified congestive heart failure type I50.9 [facility] [address], [place] [address]- 7130 May, Diabetes type 2, controlled E11.9 ; BMI 50.0-59.9, adult Z68.43 ; Chronic congestive heart failure, unspecified heart failure type I50.9 ; Angina pectoris I20.9 ; Seasonal allergic rhinitis due to other allergic trigger J30.89 and Renal failure N19 [facility] [address] [address] May, [facility] [address], [place] [address]- 5564 May, [facility] [address], [place] [address]- 2816 May, [facility] [address], [place] [address]- 0786 May, [facility] [id number] [place] [address] 06398- 1819 May, [facility] [id number] [place] [address] 37328- 4658 Apr, BMI 50.0-59.9, adult Z68.43 [facility] [id number] [place] [address] 33846- 5242 Apr, BMI 50.0-59.9, adult Z68.43 ; Post-procedural fever R50.82 and Bronchitis J40 [facility] [id number] [place] [address] 79759- 6300 Apr, Chronic congestive heart failure, unspecified congestive heart failure type I50.9 [facility] [id number] [place] [address] 33517- 7899 Jan, [facility] [id number] [place] [address] 11827- 0052 Jan, Diabetes type 2, controlled E11.9 [facility] [id number] [place] [address] 29602- 9378 Jan, Neuropathy G62.9 [facility] [address] [place] [address] 74640- 6189 Jan, [facility] [address] [place] [address] 82568- 4065 Jan, [facility] [id number] [place] [address] 58515- 8189 Jan, [facility] [id number] [place] [address] 57437- 4892 Jan, [facility] [address] [place] [address] 10838- 8048 Jan, [facility] [address] [facility] [id number] [place] [address]- 4649 Dec, [facility] [address] [facility] [id number] [place] [address]- 6504 Dec, [facility] [address] [facility] [id number] [place] [address]- 4587 Dec, Diabetes type 2, controlled E11.9 [facility] [address] [facility] [id number] [place] [address]- 3316 Dec, [facility] [address] [facility] [id number] [place] [address]- 3386 Dec, [facility] [address] [facility] [id number] [address]- 0652 Dec, Chronic congestive heart failure, unspecified congestive heart failure type I50.9 [facility] [address] [facility] [id number] [place] [address]- 0209 Dec, [facility] [address] [facility] [id number] [address]- 9142 Dec, [facility] [address] [facility] [id number] [address]- 9919 Nov, Chronic congestive heart failure, unspecified congestive heart failure type I50.9 [facility] [address] [facility] [id number] [place] [address]- 7352 Nov, Chronic congestive heart failure, unspecified congestive heart failure type I50.9 [facility] [address] [facility] [id number] [address]- 0887 Nov, [facility] [address] [facility] [id number] [place] [address]- 7133 Oct, [facility] [address] [facility] [id number] [place] [address]- 9763 Oct, [facility] [address] [facility] [id number], [place] [address]- 2133 Oct, Chronic congestive heart failure, unspecified congestive heart failure type I50.9 [facility] [address], [place] [address]- 2606 Oct, [facility] [id number] [address]- 2786 Oct, Pneumonia of both lungs due to infectious organism, unspecified part of lung J18.9 [facility] [address] [place] [address] 16390 2546 Oct, [facility] [id number] [place] [address] 66833 2540 Oct, Diabetes type 2, controlled E11.9 [facility] [id number] [place] [address] 51112- 8416 Oct, Diabetes type 2, controlled E11.9 [facility] [id number] [place] [address] 61276- 4951 Sep, [facility] [address] [address]- 9365 Sep, Neuropathy G62.9 [facility] [id number] [place] [address] 39928- 9254 Aug, Intra-dialytic hypotension I95.3 [facility] [address], [place] [address]- 6686 July, [facility] [address], [place] [address]- 1146 July, [facility] [address], [place] [address] 2546 July, [facility] [address] [address]- 3416 July, Amput below knee, unilat S88.119A [facility] [address], [place] [address]- 8826 May, [facility] [id number] [place] [address]- 9381 May, Neuropathy G62.9 [facility] [address] [place] [address]- 3216 May, [facility] [address] [place] [address]- 2946 May, [facility] [address] [place] [address]- 9519 May, [facility] [address] [place] [address]- 0733 May, [facility] [id number] [place] [address], [place] [address]- 6548 May, Neuropathy G62.9 [facility] [address] [place] [address]- 8472 Apr, [facility] [address] [place] [address]- 0702 Apr, [facility] [address] [place] [address]- 4046 Apr, Diabetes type 2, controlled E11.9 and Renal failure N19 [facility] [address] [place] [address] -3785 Apr, [facility] [address] [place] [address]- 3450 Apr, [facility] [address] [place] [address]- 1132 Mar, [facility] [address] [place] [address]- 6748 Mar, [facility] [address] [place] [address]- 0839 Mar, [facility] [address] [place] [address]- 4016 Mar, [facility] [address], [place] [address]- 3934 Mar, [facility] [id number] [place] [address] 77173- 8515 Jan, Localized edema R60.0 [facility] [address] [facility] [id number], [place] [address]- 0172 Jan, [facility] [id number] [place] [address] 77406- 3598 Jan, [facility] [address] [facility] [id number] [place] [address] 62692- 0439 Jan, [facility] [id number] [place] [address] 66038- 8830 Jan, [facility] [id number] [place] [address] 11067- 0121 Jan, [facility] [id number] [place] [address] 78708- 5655 Jan, [facility] [id number] [place] [address] 49357- 4363 Dec, Diabetes type 2, controlled E11.9 and Chronic nonintractable headache, unspecified headache type R51 [facility] [address], [place] [address]- 6922 Dec, [facility] [id number] [place] [address] 25898- 2358 Dec, [facility] [address], [place] [address]- 9110 Nov, [facility] [id number] [place] [address] 25560- 9186 Nov, [facility] [address], [place] [address]- 9936 Oct, [facility] [address] [place] [address] 76642- 2476 Oct, Migraine without status migrainosus, not intractable, unspecified migraine type G43.909 [facility] [address], [place] [address]- 5586 Oct, [facility] [id number] [place] [address] 68189 2546 Sep, Amput below knee, unilat S88.119A and Neuropathy G62.9 [facility] [id number] [place] [address] 46286 2546 Sep, [facility] [id number] [place] [address] 34013- 1126 Sep, [facility] [id number] [place] [address] 24495- 3973 Sep, [facility] [id number] [place] [address] 11423- 2664 Aug, [facility] [id number] [place] [address] 87034- 5778 Aug, [facility] [address] [place] [address] 35790- 8339 Aug, Diabetes type 2, controlled E11.9 [facility] [address] [place] [address] 91395 2546 Aug, [facility] [address] [place] [address] 61376- 4427 Jun, Diabetes type 2, controlled E11.9 and Neuropathy G62.9 [facility] [address], [place] [address] 2540 Jun, [facility] [id number] [place] [address] 01089 2546 Jun, [facility] [id number], [place] [address] 2546 Jun, [facility] [address] [place] [address] 20381- 7000 Jun, [facility] [address] [facility] [id number] [place] [address]- 3160 May, [facility] [address] [facility] [id number] [place] [address]- 3112 May, Diabetes type 2, controlled E11.9 [facility] [address] [place] [address]- 6035 May, [facility] [address] [facility] [id number] [place] [address]- 0464 May, [facility] [id number] [place] [address], [place] [address]- 8334 May, [facility] [address] [place] [address]- 2182 May, [facility] [address] [place] [address] 80280- 2375 17 May, 2015 [facility] [address] [place] [address]- 8112 May, [facility] [address] [place] [address], [place] [address]- 9077 16 May, 2015 [facility] [address], [place] [address]- 4733 15 May, 2015 COPD (chronic obstructive pulmonary disease) J44.9 [facility] [address], [place] [address]- 7425 15 May, 2015 [facility] [id number] [address]- 9936 May, [facility] [address], [place] [address]- 3299 May, [facility] [address], [place] [address]- 1872 May, [facility] [address], [place] [address]- 4749 May, [facility] [address] 9660 May, Renal failure N19 and Pneumonia, organism unspecified, unspecified laterality, unspecified part of lung J18.9 [facility] [address] [place] [address]- 6722 Apr, [facility] [address], [place] [address]- 7694 Apr, [facility] [address] [place] [address]- 2024 Apr, [facility] [address], [place] [address]- 4486 Apr, Diabetes mellitus 250.00 [facility] [address], [place] [address]- 0265 Apr, [facility] [address], [place] [address]- 8987 Apr, [facility] [address] [place] [address]- 8091 Apr, [facility] [address], [place] [address]- 0536 Apr, [facility] [address], [place] [address]- 5730 Mar, [facility] [address], [place] [address]- 3116 Mar, [facility] [address], [place] [address]- 6145 Mar, [facility] [address], [place] [address]- 3262 16 Mar, 2015 Renal failure N19 [facility] [id number], [place] [address]- 5973 14 Mar, 2015 [facility] [place] [facility] [address] [id number] [place] [address]- 3545 Mar, [facility] [place] [facility] [address] [id number] [place] [address]- 9431 Mar, [facility] [place] [facility] [address] [facility] [id number] [place] [address]- 9745 Jan, [facility] [place] [facility] [address] [id number] [place] [address], [place] [address]- 3634 Jan, [facility] [place] [facility] [address] [id number] [place] [address]- 4943 Jan, [facility] [place] [facility] [address] [id number] [place] [address], [place] [address]- 5594 Jan, [facility] [place] [facility] [id number] [place] [address]- 0047 Dec, [facility] [place] [facility] [address] [facility] [id number] [place] [address], [place] [address]- 7377 Dec, [facility] [place] [facility] [id number] [place] [address]- 1997 Dec, [facility] [place] [facility] [address] [place] [address]- 8560 Nov, [facility] [place] [facility] [address] [place] [address]- 8202 Nov, [facility] [place] [facility] [address] [facility] [id number], [place] [address]- 7617 Nov, [facility] [place] [facility] [address] [facility] [id number] [place] [address]- 6367 Oct, [facility] [place] [facility] [address] [id number] [place] [address] Oct, [facility] [place] [facility] [id number] [address] Oct, Renal failure 586 and Obesity 278.00 [facility] [place] [facility] [address] [id number], [place] [address] Oct, [facility] [address] [id number], [place] [address] Oct, [facility] [address] [facility] [id number], [place] [address] Oct, [facility] [address] [id number], [place] [address] Sep, [facility] [address] [facility] [id number][place] [address] Sep, [facility] [id number], [place] [address] Sep, Diabetes mellitus 250.00 and Congestive heart failure, unspecified 428.0 [facility] [id number] [place] [address] Aug, [facility] [id number], [place] [address] Aug, [facility] [address] [id number], [place] [address] Aug, [facility] [id number], [place] [address] July, [facility] [address] [id number], [place] [address] July, [facility] [id number], [place] [address] July, Heart murmur, systolic 785.2 [facility] [address] [id number], [place] [address] July, [facility] [address] [id number], [place] [address] July, [facility] [address] [id number], [place] [address] Jun, [facility] [place] [facility] [address] [id number] [place] [address] 13 Jun, 2014 [facility] [place] [facility] [address] [id number] [place] [address] May, [facility] [place] [facility] [address] [id number] [place] [address] May, [facility] [place] [facility] [address] [id number] [place] [address] May, [facility] [place] [facility] [address] [id number] [place] [address] 18 May, 2014 [facility] [place] [facility] [address] [id number] [place] [address] May, [facility] [place] [facility] [address] [id number] [place] [address]- [address] 16 May, 2014 [facility] [place] [facility] [address] [id number] [place] [address]- [address] May, 2014 [facility] [place] [facility] [address] [id number] [place] [address] May, [facility] [place] [facility] [address] [address] [id number] [place] [address] May, [facility] [place] [facility] [address] [id number] [place] [address] May, [facility] [place] [facility] [address] [id number] [place] [address] 6905 May, 2014 [facility] [place] [facility] [address] [id number] [place] [address] 6217 May, 2014 [facility] [place] [facility] [address] [id number] [place] [address] 2606 May, 2014 [facility] [place] [facility] [address] [id number] [place] [address] 6936 May, 2014 [facility] [place] [facility] [address] [id number] [place] [address]- 6562 18 May, 2014 [facility] [place] [facility] [address] [id number] [place] [address]- 0720 18 May, 2014 [facility] [place] [facility] [address] [id number] [place] [address]- 6566 18 May, 2014 [facility] [place] [facility] [address] [facility] [id number] [place] [address] 7380 18 May, 2014 [facility] [place] [facility] [address] [id number] [place] [address]- 1385 18 May, 2014 [facility] [place] [facility] [address] [id number] [place] [address]- 5543 18 May, 2014 [facility] [place] [facility] [address] [facility] [id number] [place] [address]- 0519 16 May, 2014 [facility] [place] [facility] [address] [facility] [id number] [place] [address]- 5064 16 May, 2014 [facility] [place] [facility] [address] [facility] [id number] [place] [address]- 8755 11 May, 2014 [facility] [place] [facility] [address] [facility] [id number] [place] [address]- 8229 11 May, 2014 [facility] [place] [facility] [address] [facility] [id number] [place] [address]- 0565 02 May, 2014 [facility] [place] [facility] [address] [facility] [id number] [place] [address]- 7457 02 May, 2014 [facility] [place] [facility] [address] [facility] [id number] [place] [address]- 3486 Apr, [facility] [place] [facility] [address] [id number] [place] [address]- 7174 Apr, [facility] [place] [facility] [address] [facility] [id number] [place] [address]- 1661 14 Apr, 2014 [facility] [place] [facility] [address] [facility] [id number] [place] [address]- 8319 13 Apr, 2014 [facility] [place] [facility] [address] [id number] [place] [address]- 0208 Apr, [facility] [place] [facility] [address] [id number] [place] [address]- 3381 Apr, [facility] [place] [facility] [address] [id number] [place] [address]- 8263 Apr, [facility] [place] [facility] [address] [id number] [place] [address]- 9850 Apr, [facility] [place] [facility] [address] [id number] [place] [address]- 4102 Mar, [facility] [place] [facility] [address] [id number] [place] [address]- 1225 Mar, [facility] [place] [facility] [address] [id number] [place] [address]- 4305 Mar, [facility] [place] [facility] [address] [id number] [place] [address]- 3059 Mar, [facility] [place] [facility] [address] [id number] [place] [address]- 7292 Mar, [facility] [place] [facility] [address] [id number] [place] [address]- 0675 Mar, [facility] [place] [facility] [address] [id number] [place] [address]- 6846 Mar, [facility] [place] [facility] [address] [id number] [place] [address]- 2202 Mar, [facility] [place] [facility] [address] [id number] [place] [address]- 0080 Mar, [facility] [place] [facility] [address] [id number] [place] [address]- 8081 Mar, [facility] [place] [facility] [address] [id number] [place] [address] Mar, [facility] [place] [facility] [address] [id number] [place] [address]- 3745 Mar, [facility] [place] [facility] [address] [id number] [place] [address]- 3656 Mar, [facility] [place] [facility] [address] [id number] [place] [address]- 8666 Mar, [facility] [place] [facility] [address] [id number] [place] [address]- 6454 Mar, [facility] [place] [facility] [address] [id number] [place] [address]- 7664 Mar, [facility] [place] [facility] [address] [id number] [place] [address]- 0957 Mar, [facility] [place] [facility] [address] [id number] [place] [address]- 0008 Mar, [facility] [place] [facility] [address] [id number] [place] [address]- 2803 Mar, [facility] [place] [facility] [address] [id number] [place] [address]- 8894 Mar, [facility] [place] [facility] [address] [id number] [place] [address]- 5496 Mar, [facility] [place] [facility] [address] [id number] [place] [address]- 1461 Mar, [facility] [place] [facility] [address] [id number] [place] [address]- 1116 Jan, [facility] [place] [facility] [address] [id number] [place] [address]- 7145 Jan, [facility] [place] [facility] [address] [id number] [place] [address]- 1855 Jan, [facility] [place] [facility] [address] [id number] [place] [address]- 3300 Jan, [facility] [place] [facility] [address] [id number] [place] [address]- 8976 Jan, [facility] [place] [facility] [address] [id number] [place] [address]- 3081 Jan, [facility] [place] [facility] [address] [id number] [place] [address]- 7530 Jan, [facility] [place] [facility] [address] [id number] [place] [address]- 0482 Jan, [facility] [place] [facility] [address] [id number] [place] [address]- 5415 Jan, [facility] [place] [facility] [address] [id number] [place] [address]- 6293 Jan, [facility] [place] [facility] [address] [id number] [place] [address]- 4997 Jan, [facility] [place] [facility] [address] [id number] [place] [address]- 0007 Jan, [facility] [place] [facility] [address] [id number] [place] [address]- 0928 Jan, [facility] [place] [facility] [address] [id number] [place] [address]- 4761 Jan, [facility] [place] [facility] [address] [id number] [place] [address]- 0130 Jan, [facility] [place] [facility] [address] [id number] [place] [address]- 6087 Jan, [facility] [place] [facility] [address] [id number] [place] [address]- 6806 Jan, [facility] [place] [facility] [address] [id number] [place] [address]- 6327 Jan, [facility] [place] [facility] [address] [id number] [place] [address]- 7613 Jan, [facility] [place] [facility] [address] [id number] [place] [address]- 9263 Jan, [facility] [place] [facility] [address] [id number] [place] [address]- 8821 Dec, [facility] [place] [facility] [address] [id number] [place] [address]- 6901 Dec, [facility] [place] [facility] [address] [id number] [place] [address]- 4663 Dec, [facility] [place] [facility] [address] [id number] [place] [address]- 5594 Dec, [facility] [place] [facility] [address] [id number] [place] [address]- 6098 Dec, [facility] [place] [facility] [address] [id number] [place] [address]- 9836 Dec, [facility] [place] [facility] [address] [id number] [place] [address]- 4020 Dec, [facility] [place] [facility] [address] [id number] [place] [address]- 8928 Dec, [facility] [place] [facility] [address] [id number] [place] [address]- 3831 Dec, [facility] [place] [facility] [address] [id number] [place] [address]- 5603 Dec, [facility] [place] [facility] [address] [id number] [address]- 9011 Dec, [facility] [place] [facility] [address] [id number], [place] [address]- 2023 Dec, [facility] [place] [facility] [address] [id number], [place] [address]- 6140 Dec, [facility] [place] [facility] [address] [id number] [place] [address]- 3470 Dec, [facility] [place] [facility] [address] [id number] [place] [address]- 2467 Dec, [facility] [place] [facility] [address] [id number] [place] [address]- 9050 Nov, [facility] [place] [facility] [address] [id number] [place] [address]- 9241 22 Sep, 2013 [facility] [place] [facility] [address] [id number] [place] [address] 2546 19 Sep, 2013 [facility] [place] [facility] [address] [id number] [place] [address]- 2276 19 Nov, 2013 [facility] [place] [facility] [address] [id number] [place] [address] 2546 13 Nov, 2013 [facility] [place] [facility] [address] [id number] [place] [address]- 8526 13 Nov, 2013 [facility] [place] [facility] [address] [id number] [place] [address]- 3593 10 Nov, 2013 [facility] [place] [facility] [address] [id number] [place] [address]- 1367 10 Nov, 2013 [facility] [place] [facility] [address] [id number] [place] [address]- 7718 08 Nov, 2013 [facility] [place] [facility] [address] [id number] [place] [address]- 0199 05 Sep, 2013 [facility] [place] [facility] [address] [id number] [place] [address]- 3133 05 Nov, 2013 [facility] [place] [facility] [address] [id number] [place] [address]- 1303 03 Nov, 2013 [facility] [place] [facility] [address] [id number] [place] [address]- 2092 Nov, 2013 [facility] [place] [facility] [address] [id number] [place] [address]- 2548 Oct, [facility] [place] [facility] [address] [id number] [place] [address]- 1223 Oct, [facility] [place] [facility] [address] [id number] [place] [address]- 0015 Oct, [facility] [place] [facility] [address] [id number] [place] [address]- 5102 Oct, [facility] [place] [facility] [address] [id number] [place] [address]- 1280 Oct, [facility] [place] [facility] [address] [id number] [place] [address]- 5324 Sep, [facility] [place] [facility] [address] [id number] [place] [address]- 3493 Sep, 2013 [facility] [place] [facility] [address] [id number] [place] [address]- 4256 Sep, [facility] [place] [facility] [address] [id number] [place] [address]- 1111 Sep, [facility] [place] [facility] [address] [id number] [place] [address]- 5229 Aug, [facility] [place] [facility] [address] [id number] [place] [address]- 7017 Aug, [facility] [place] [facility] [address] [id number] [place] [address]- 3769 Aug, [facility] [place] [facility] [address] [id number] [place] [address]- 3578 Aug, [facility] [place] [facility] [address] [id number] [place] [address]- 6463 Aug, [facility] [place] [facility] [address] [id number] [place] [address]- 0905 Aug, [facility] [place] [facility] [address] [id number] [place] [address]- 8113 Aug, [facility] [place] [facility] [address] [id number] [place] [address]- 5941 Aug, [facility] [place] [facility] [address] [id number] [place] [address]- 3657 Aug, [facility] [place] [facility] [address] [id number] [place] [address]- 7880 Aug, [facility] [place] [facility] [address] [id number] [place] [address]- 1181 Aug, [facility] [place] [facility] [address] [id number] [place] [address]- 5129 Aug, [facility] [place] [facility] [address] [id number] [place] [address]- 9799 Aug, [facility] [place] [facility] [address] [id number] [place] [address]- 7790 Aug, [facility] [place] [facility] [address] [id number] [place] [address]- 3640 Aug, [facility] [place] [facility] [address] [id number] [place] [address]- 6277 Aug, [facility] [place] [facility] [address] [id number] [place] [address]- 2906 Aug, [facility] [place] [facility] [address] [id number] [place] [address]- 8967 Aug, [facility] [place] [facility] [address] [id number] [place] [address]- 2506 Aug, [facility] [place] [facility] [address] [id number] [place] [address]- 6454 Aug, [facility] [place] [facility] [address] [id number] [place] [address]- 0113 Aug, [facility] [place] [facility] [address] [id number] [place] [address]- 3836 Aug, [facility] [place] [facility] [address] [id number], [place] [address]- 9488 Aug, [facility] [place] [facility] [address] [id number] [place] [address]- 4110 Aug, [facility] [place] [facility] [address] [id number] [place] [address]- 3813 July, [facility] [place] [facility] [address] [id number] [place] [address]- 1416 July, [facility] [place] [facility] [address] [id number] [place] [address]- 8719 July, [facility] [address] [id number] [place] [address]- 1583 July, [facility] [address] [id number] [place] [address]- 6140 July, [facility] [address] [id number] [place] [address]- 7673 July, [facility] [address] [id number] [place] [address]- 3585 Jun, [facility] [address] [id number] [place] [address]- 5943 Jun, [facility] [address] [id number] [place] [address]- 9769 Jun, [facility] [address] [id number] [place] [address]- 7556 Jun, [facility] [address] [id number] [place] [address]- 4582 Jun, [facility] [address] [id number] [place] [address]- 8841 Jun, [facility] [address] [id number] [place] [address]- 8896 Jun, [facility] [place] [facility] [address] [id number] [place] [address]- 8776 Jun, [facility] [address] [id number] [place] [address]- 1370 Jun, [facility] [place] [facility] [address] [id number] [place] [address]- 6176 Jun, [facility] [place] [facility] [address] [id number] [place] [address]- 4709 Jun, [facility] [place] [facility] [address] [id number] [place] [address]- 2625 Jun, [facility] [place] [facility] [address] [id number] [place] [address]- 4751 Jun, [facility] [place] [facility] [address] [id number] [place] [address]- 1256 Jun, [facility] [place] [facility] [address] [id number] [place] [address]- 7361 Jun, [facility] [place] [facility] [address] [id number] [place] [address]- 5167 May, [facility] [place] [facility] [address] [id number] [place] [address]- 8912 May, [facility] [place] [facility] [address] [id number] [place] [address]- 6859 May, [facility] [place] [facility] [address] [id number] [place] [address]- 2908 May, [facility] [place] [facility] [address] [id number] [place] [address]- 0995 May, [facility] [place] [facility] [address] [id number] [place] [address]- 3753 May, [facility] [place] [facility] [address] [id number] [place] [address]- 0807 May, [facility] [place] [facility] [address] [id number] [place] [address]- 1399 May, [facility] [place] [facility] [address] [id number] [place] [address]- 1527 May, [facility] [place] [facility] [address] [id number] [place] [address]- 9373 May, [facility] [place] [facility] [address] [id number] [place] [address]- 4570 May, [facility] [place] [facility] [address] [id number] [place] [address]- 1508 May, [facility] [place] [facility] [address] [id number] [place] [address]- 8027 May, [facility] [place] [facility] [address] [id number] [place] [address]- 8429 May, [facility] [place] [facility] [address] [id number] [place] [address]- 3516 May, [facility] [place] [facility] [address] [id number] [place] [address]- 7416 May, [facility] [place] [facility] [address] [id number] [place] [address]- 9391 May, [facility] [place] [facility] [address] [id number] [place] [address]- 8854 Apr, [facility] [place] [facility] [address] [id number] [place] [address]- 6732 Apr, [facility] [place] [facility] [address] [id number] [place] [address]- 3936 Apr, [facility] [place] [facility] [address] [id number] [place] [address]- 8881 Apr, [facility] [place] [facility] [address] [id number] [place] [address]- 6152 Apr, [facility] [place] [facility] [address] [id number] [place] [address]- 0749 Apr, [facility] [place] [facility] [address] [id number] [place] [address]- 0202 Apr, [facility] [place] [facility] [address] [id number] [place] [address]- 6721 Apr, [facility] [place] [facility] [address] [id number] [place] [address]- 0014 Apr, [facility] [place] [facility] [address] [id number] [place] [address]- 0034 Apr, [facility] [place] [facility] [address] [id number] [place] [address]- 0545 Apr, [facility] [place] [facility] [address] [id number] [place] [address]- 7282 Apr, [facility] [place] [facility] [address] [id number] [place] [address]- 5293 Apr, [facility] [place] [facility] [address] [id number] [place] [address]- 9202 Apr, [facility] [place] [facility] [address] [id number] [place] [address]- 1552 Apr, [facility] [place] [facility] [address] [id number] [place] [address]- 0782 Apr, [facility] [place] [facility] [address] [id number] [place] [address]- 2718 Mar, [facility] [place] [facility] [address] [id number] [place] [address]- 5924 30 Mar, 2013 [facility] [place] [facility] [address] [id number] [place] [address]- 3227 30 Mar, 2013 [facility] [place] [facility] [address] [id number] [place] [address]- 4609 30 Mar, 2013 [facility] [place] [facility] [address] [id number] [place] [address]- 4120 18 Mar, 2013 [facility] [place] [facility] [address] [id number] [place] [address] 18 Mar, 2013 [facility] [place] [facility] [address] [id number] [place] [address] 18 Mar, 2013 [facility] [place] [facility] [address] [id number] [place] [address] 18 Mar, 2013 [facility] [place] [facility] [address] [id number] [place] [address] 17 Mar, 2013 [facility] [place] [facility] [address] [id number] [place] [address] 17 Mar, 2013 [facility] [place] [facility] [address] [id number], [place] [address] 05 Mar, 2013 [facility] [place] [facility] [address] [id number] [place] [address] Mar, [facility] [place] [facility] [address] [id number] [place] [address] Mar, [facility] [place] [facility] [address] [facility] [id number] [place] [address] 130[address] Mar, [facility] [place] [facility] [address] [id number], [place] [address] Mar, [facility] [place] [facility] [address] [id number] [id number] [address] Mar, [facility] [place] [facility] [address] [id number] [place] [address] Mar, [facility] [place] [facility] [address] [id number] [place] [address] Mar, [facility] [place] [facility] [address] [id number], [place] [address] Jan, [facility] [place] [facility] [address] [id number], [place] [address] Jan, [facility] [place] [facility] [address] [id number], [place] [address] Jan, [facility] [place] [facility] [address] [id number], [place] [address] Jan, [facility] [place] [facility] [address] [id number], [place] [address] Nov, 2012 [facility] [place] [facility] [address] [id number][place] [address] 10 Nov, 2012 [facility] [place] [facility] [address] [id number], [place] [address]708 Nov, [facility] [place] [facility] [address] [id number], [place] [address] Nov, [facility] [place] [facility] [address] [id number] [place] [address] Oct, [facility] [address] [id number] [place] [address] Oct, [facility] [place] [facility] [address] [id number] [place] [address] Oct, [facility] [address] [id number] [place] [address] Oct, [facility] [place] [facility] [address] [id number] [place] [address] Sep, [facility] [address] [id number] [place] [address] 1411 Sep, [facility] [address] [id number] [place] [address] 2760 Sep, [facility] [address] [id number] [place] [address]18 Sep, [facility] [address] [id number] [place] [address] 7269 Sep, [facility] [place] [facility] [address] [id number] [place] [address] 1516 Sep, [facility] [address] [id number] [place] [address]- [address] Sep, [facility] [place] [facility] [address] [id number] [place] [address] Sep, [facility] [place] [facility] [address] [id number] [place] [address]- 1018 Sep, [facility] [place] [facility] [address] [id number] [place] [address]- [address]368 Aug, [facility] [place] [facility] [address] [id number] [place] [address]- 1545 Aug, [facility] [place] [facility] [address] [id number] [place] [address]- 9060 Aug, [facility] [address] [id number] [place] [address] Aug, [facility] [address] [id number] [place] [address]- [address] July, [facility] [address] [id number] [place] [address]- [address]46 July, [facility] [place] [facility] [address] [id number] [place] [address]- [address]176 July, [facility] [address] [id number] [place] [address]- 74[address] July, [facility] [address] [id number] [place] [address]- 1096 July, [facility] [address] [id number] [place] [address]- [address] July, [facility] [address] [id number] [place] [address]- 4166 July, [facility] [address] [id number] [place] [address]- [address] Jun, [facility] [place] [facility] [address] [id number] [place] [address]- [address] May, [facility] [place] [facility] [address] [id number] [place] [address]- 8036 May, [facility] [place] [facility] [address] [id number] [place] [address]- 3896 May, [facility] [place] [facility] [address] [id number] [place] [address]- 1406 May, [facility] [place] [facility] [address] [id number] [place] [address]- [address]206 May, [facility] [place] [facility] [address] [id number] [place] [address]- [address]776 May, [facility] [place] [facility] [address] [id number] [place] [address]- [address] May, [facility] [address] [facility] [id number] [place] [address] May, IMMUNIZATIONS No Known Immunizations SOCIAL [...]
--- OUTSIDE RECORDS SUMMARY | 2018-03-12 21:18 | XMS REPORT ---
Author Author EMILEE MCKENNA Organization [facility] Address [address] [place] [address] Care Team Providers Care Occupational Analyst Name Role Phone MCKENNA HEBERT Unavailable PROBLEMS Type Condition ICD9-CM Code ALM57-BL Code Onset Dates Condition Status SNOMED Code Problem Intra-dialytic hypotension I95.3 Active 722480860 Problem Seasonal allergic rhinitis due to other allergic trigger J30.89 Active 308945815 Problem Chronic congestive heart failure, unspecified congestive heart failure type I50.9 Active 62325410 Problem Self-care deficit for toileting R46.0 Active 976021875 Problem Primary insomnia F51.01 Active 3241574 Problem Angina pectoris I20.9 Active 462176434 Problem Chronic congestive heart failure, unspecified heart failure type I50.9 Active 53873572 Problem 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 [id number] [address] Dec, [facility] [address] [id number] [address] 8737 Dec, [facility] [address] [facility] [id number], [place] [address] Nov, Pneumonia due to infectious organism, unspecified laterality , unspecified part of lung J18.9 and Self-care deficit for toileting R46.0 [facility] [id number] [place] [address] 72810- 5365 14 Nov, 2017 [facility] [id number] [place] [address] 95748- 2249 16 Oct, 2017 Diabetes type 2, controlled E11.9 ; Primary insomnia F51.01 and Bilateral headaches R51 [facility] [id number] [place] [address] 30255- 6765 Oct, [facility] [id number] [place] [address] 46963- 3987 Sep, [facility] [id number] [place] [address] [id number] Sep, Dental examination Z01.20 and Dental caries K02.9 [place] [id number] [place] [address] 87237- 3107 Sep, [facility] [id number] [place] [address] 86134- 2041 Sep, [facility] [id number] [place] [address] 30193- 5537 Sep, Other chronic pain G89.29 and Pain in right knee M25.561 [place] [id number] [place] [address] 25281- 8869 05 Sep, 2017 [facility] [id number] [place] [address] 41489- 7615 Aug, [facility] [id number] [place] [address] 85003- 4594 Aug, 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 [facility] [id number] [place] [address] 57194- 6478 15 Aug, 2017 [facility] [id number] [place] [address] 90365- 3709 11 Aug, 2017 Diabetes type 2, controlled E11.9 and Acute pain of right knee M25.561 [address] [address] [address] 4351 Aug, [facility] [address] [address]- 3054 July, [facility] [address] [address]- 9738 Jun, [facility] [id number] [place] [address] 65243- 6030 Jun, [facility] [address] [place] [address] 74731- 8275 Jun, Diabetes type 2, controlled E11.9 [facility] [address] [place] [address] 17787- 2839 Jun, [facility] [address], [place] [address]- 1855 May, [facility] [id number] [place] [address] 67412- 8668 May, [facility] [address], [place] [address]- 2939 May, [facility] [address] [address]- 3822 May, Chronic congestive heart failure, unspecified congestive heart failure type I50.9 [facility] [address], [place] [address] 2641 May, Diabetes type 2, controlled E11.9 ; BMI 50.0-59.9, adult Z68.43 ; Chronic congestive heart failure, unspecified heart failure type I50.9 ; Angina pectoris I20.9 ; Seasonal allergic rhinitis due to other allergic trigger J30.89 and Renal failure N19 [facility] [id number] [id number] May, [facility] [address], [place] [address]- 1137 May, [facility] [address], [place] [address]- 3771 May, [facility] [id number] [place] [address] 01668- 1931 May, [facility] [id number] [place] [address] 94046- 2175 May, [facility] [id number] [place] [address] 33486- 5106 Apr, BMI 50.0-59.9, adult Z68.43 [facility] [id number] [place] [address] 27076- 4845 Apr, BMI 50.0-59.9, adult Z68.43 ; Post-procedural fever R50.82 and Bronchitis J40 [facility] [id number] [place] [address] 29768- 2823 Apr, Chronic congestive heart failure, unspecified congestive heart failure type I50.9 [facility] [id number] [place] [address] 77381- 7927 Jan, [facility] [id number] [place] [address] 93274- 6681 Jan, Diabetes type 2, controlled E11.9 [facility] [address], [place] [address]- 4603 Jan, Neuropathy G62.9 [facility] [id number] [place] [address] 22849- 3823 Jan, [facility] [id number] [place] [address] 19789- 8484 Jan, [facility] [id number] [place] [address] 52907- 6491 Jan, [facility] [address], [place] [address]- 4025 Jan, [facility] [address] [place] [address]- 2578 Jan, [facility] [address] [id number], [place] [address]- 3713 Dec, [facility] [address] [facility] [id number] [place] [address]- 6919 Dec, [facility] [address] [facility] [id number], [place] [address]- 5533 Dec, Diabetes type 2, controlled E11.9 [facility] [address] [id number] [place] [address]- 0968 Dec, [facility] [address] [facility] [id number] [place] [address]- 5605 Dec, [facility] [address] [id number] [address]- 2714 Dec, Chronic congestive heart failure, unspecified congestive heart failure type I50.9 [facility] [address] [facility] [id number], [place] [address]- 1199 Dec, [facility] [address] [facility] [id number], [place] [address]- 2949 Dec, [facility] [address] [facility] [id number][place] [address]- 7053 Nov, Chronic congestive heart failure, unspecified congestive heart failure type I50.9 [facility] [address] [facility] [id number], [place] [address]- 9499 Nov, Chronic congestive heart failure, unspecified congestive heart failure type I50.9 [facility] [address] [id number] [place] [address]- 7086 Nov, [facility] [address] [facility] [id number][place] [address]- 3118 Oct, [facility] [address] [facility] [id number], [place] [address]- 8321 Oct, [facility] [address], [place] [address]- 2865 14 Oct, 2016 Chronic congestive heart failure, unspecified congestive heart failure type I50.9 [facility] [id number] [address]- 7286 Oct, [facility] [address] [place] [address] 11432- 6090 Oct, Pneumonia of both lungs due to infectious organism, unspecified part of lung J18.9 [facility] [address] [address]- 1786 10 Oct, 2016 [facility] [id number] [place] [address] 55034- 5943 Oct, Diabetes type 2, controlled E11.9 [facility] [id number] [place] [address] 14056- 3955 Oct, Diabetes type 2, controlled E11.9 [facility] [address], [place] [address]- 6748 Sep, [facility] [id number] [place] [address] 48269- 3030 Sep, Neuropathy G62.9 [facility] [id number] [place] [address] 25276- 5271 Aug, Intra-dialytic hypotension I95.3 [facility] [address], [place] [address]- 9505 July, [facility] [address], [place] [address]- 6785 July, [facility] [id number] [place] [address] 39338- 6828 July, [facility] [address], [place] [address]- 7247 July, Amput below knee, unilat S88.119A [facility] [id number] [place] [address] 92985- 9963 May, [facility] [address] [facility] [id number] [place] [address]- 8355 May, Neuropathy G62.9 [facility] [address] [facility] [id number] [place] [address]- 7881 May, [facility] [address] [facility] [id number] [place] [address]- 0820 May, [facility] [address] [facility] [id number] [place] [address]- 0687 May, [facility] [address] [facility] [id number] [place] [address]- 9921 May, [facility] [address] [facility] [id number] [place] [address]- 9942 May, Neuropathy G62.9 [facility] [address] [place] [address]- 7541 Apr, [facility] [address] [facility] [id number] [place] [address]- 8095 Apr, [facility] [address] [place] [address]- 0169 Apr, Diabetes type 2, controlled E11.9 and Renal failure N19 [facility] [address] [id number] [place] [address] -0611 Apr, [facility] [address] [id number] [address]- 3389 Apr, [facility] [address] [id number] [place] [address]- 1807 Mar, [facility] [address] [facility] [id number] [place] [address]- 1842 Mar, [facility] [address] [id number] [place] [address]- 6201 Mar, [facility] [address], [place] [address]- 1589 Mar, [facility] [id number] [place] [address] 85311- 4199 Mar, [facility] [id number] [place] [address] 36163- 5094 Jan, Localized edema R60.0 [facility] [id number] [place] [address] 40431- 4035 Jan, [facility] [id number] [place] [address] 63276- 2525 Jan, [facility] [id number] [place] [address] 44929- 9840 Jan, [facility] [id number] [place] [address] 66511- 7618 Jan, [facility] [id number] [place] [address] 99732- 3610 Jan, [facility] [id number] [place] [address] 37063- 5251 Jan, [facility] [id number] [place] [address] 70535- 9514 Dec, Diabetes type 2, controlled E11.9 and Chronic nonintractable headache, unspecified headache type R51 [facility] [id number] [place] [address] 09777- 7024 Dec, [facility] [id number] [place] [address] 92360- 8896 Dec, [facility] [id number] [place] [address] 58309- 8600 Nov, [facility] [id number] [place] [address] 78560- 4434 Nov, [facility] [id number] [place] [address] 01972- 2195 Oct, [facility] [id number] [address]- 0658 Oct, Migraine without status migrainosus, not intractable, unspecified migraine type G43.909 [facility] [id number] [place] [address] 16417- 2066 Oct, [facility] [id number] [place] [address] 42143- 9586 Sep, Amput below knee, unilat S88.119A and Neuropathy G62.9 [facility] [id number] [place] [address] 14283- 7396 Sep, [facility] [id number] [place] [address] 99924- 3386 Sep, [facility] [id number] [place] [address] 22819- 6227 Sep, [facility] [id number] [place] [address] 56544- 0342 Aug, [facility] [address] [place] [address] 93072- 3705 Aug, [facility] [id number] [place] [address] 87750- 1203 Aug, Diabetes type 2, controlled E11.9 [facility] [id number] [place] [address] 10113 2546 Aug, [facility] [id number] [place] [address] 84765 2547 Jun, Diabetes type 2, controlled E11.9 and Neuropathy G62.9 [facility] [id number] [place] [address] 00780 2546 Jun, [facility] [id number] [place] [address] 98668 2546 Jun, [facility] [id number] [place] [address] 25396 4336 Jun, [facility] [address] [facility] [id number], [place] [address]- 9936 Jun, [facility] [id number] [place] [address], [place] [address]- 5795 May, [facility] [address] [place] [address]- 2483 May, Diabetes type 2, controlled E11.9 [facility] [address] [facility] [id number] [place] [address], [place] [address]- 1579 May, [facility] [id number] [place] [address], [place] [address]- 6868 May, [facility] [id number] [place] [address] 16570- 9790 26 May, 2015 [facility] [id number] [place] [address] 01516- 5294 25 May, 2015 [facility] [address], [place] [address]- 9000 17 May, 2015 [facility] [address], [place] [address]- 2096 16 May, 2015 [facility] [address], [place] [address]- 3005 16 May, 2015 [facility] [address] [address]- 5661 15 May, 2015 COPD (chronic obstructive pulmonary disease) J44.9 [facility] [address] [facility] [id number], [place] [address]- 8261 15 May, 2015 [facility] [address], [place] [address]- 3341 12 May, 2015 [facility] [address], [place] [address]- 5715 11 May, 2015 [facility] [address], [place] [address]- 5427 May, [facility] [address] [id number] [place] [address]- 8427 May, [facility] [address] [place] [address]- 8306 May, Renal failure N19 and Pneumonia, organism unspecified, unspecified laterality, unspecified part of lung J18.9 [facility] [address] [place] [address]- 2323 Apr, [facility] [address] [id number] [place] [address]- 1357 Apr, [facility] [address] [place] [address]- 6427 Apr, [facility] [address] [place] [address]- 4016 Apr, Diabetes mellitus 250.00 [facility] [address], [place] [address]- 8872 Apr, [facility] [address] [place] [address]- 3536 Apr, [facility] [address] [place] [address]- 8361 Apr, [facility] [address] [address]- 7135 Apr, [facility] [id number] [address]- 9458 Mar, [facility] [address] [id number] [place] [address]- 9479 Mar, [facility] [address] [place] [address]- 6487 Mar, [facility] [address] [id number] [place] [address]- 5856 Mar, Renal failure N19 [facility] [place] [facility] [address] [facility] [id number] [place] [address]- 4668 14 Mar, 2015 [facility] [place] [facility] [address] [id number] [place] [address]- 4100 Mar, [facility] [place] [facility] [address] [id number] [place] [address]- 4303 Mar, [facility] [place] [facility] [address] [id number] [place] [address]- 4987 24 Jan, 2015 [facility] [place] [facility] [address] [id number] [place] [address]- 2351 Jan, [facility] [place] [facility] [address] [id number] [place] [address]- 0998 Jan, [facility] [place] [facility] [address] [id number] [place] [address]- 7257 Jan, [facility] [place] [facility] [address] [id number] [place] [address] Dec, [facility] [place] [facility] [address] [id number] [place] [address] Dec, [facility] [place] [facility] [address] [id number] [place] [address] Dec, [facility] [place] [facility] [address] [id number] [place] [address] Nov, [facility] [place] [facility] [address] [id number] [place] [address] Nov, [facility] [place] [facility] [address] [id number] [place] [address] Nov, [facility] [place] [facility] [address] [id number] [place] [address] Oct, [facility] [place] [facility] [address] [id number] [place] [address] Oct, [facility] [place] [facility] [address] [id number] [place] [address] Oct, Renal failure 586 and Obesity 278.00 [facility] [id number] [address] Oct, [facility] [id number] [address] Oct, [facility] [id number] [address] Oct, [facility] [id number] [place] [address] Sep, [facility] [id number] [place] [address] Sep, [facility] [id number] [address] Sep, Diabetes mellitus 250.00 and Congestive heart failure, unspecified 428.0 [facility] [id number] [address] Aug, [facility] [id number] [place] [address] Aug, [facility] [id number] [place] [address] Aug, [facility] [id number] [place] [address] July, [facility] [id number] [place] [address] July, [facility] [id number] [address] July, Heart murmur, systolic 785.2 [facility] [id number] [place] [address] July, [facility] [id number] [place] [address] July, [facility] [id number] [place] [address] 14 Jun, 2014 [facility] [place] [facility] [address] [id number] [place] [address]- 1627 13 Jun, 2014 [facility] [place] [facility] [address] [id number] [place] [address] 2908 23 May, 2014 [facility] [place] [facility] [address] [id number] [place] [address]- 4905 23 May, 2014 [facility] [place] [facility] [address] [id number] [place] [address]- 2067 18 May, 2014 [facility] [place] [facility] [address] [id number] [place] [address]- 6345 18 May, 2014 [facility] [place] [facility] [address] [id number] [place] [address]- 3352 16 May, 2014 [facility] [place] [facility] [address] [id number] [place] [address]- 2343 16 May, 2014 [facility] [place] [facility] [address] [id number] [place] [address]- 7241 10 May, 2014 [facility] [place] [facility] [address] [id number] [place] [address]- 7720 10 May, 2014 [facility] [place] [facility] [address] [facility] [id number] [place] [address]- 3221 May, [facility] [place] [facility] [address] [id number] [place] [address]- 3085 May, [facility] [place] [facility] [address] [id number] [place] [address]- 3331 May, [facility] [place] [facility] [address] [id number] [place] [address]- 0227 May, [facility] [place] [facility] [address] [id number] [place] [address]- 7282 May, [facility] [place] [facility] [address] [id number] [place] [address]- 1794 May, [facility] [place] [facility] [address] [id number] [place] [address]- 2562 May, 2014 [facility] [place] [facility] [address] [id number] [place] [address]- 4366 May, 2014 [facility] [place] [facility] [address] [facility] [id number] [place] [address]- 0901 May, 2014 [facility] [place] [facility] [address] [id number] [place] [address]- 3048 May, 2014 [facility] [place] [facility] [address] [id number] [place] [address]- 2324 May, 2014 [facility] [place] [facility] [address] [id number] [place] [address]- 9906 May, 2014 [facility] [place] [facility] [address] [facility] [id number] [place] [address]- 8307 16 May, 2014 [facility] [place] [facility] [address] [id number] [place] [address]- 8104 May, 2014 [facility] [place] [facility] [address] [id number] [place] [address]- 4293 May, 2014 [facility] [place] [facility] [address] [facility] [id number] [place] [address]- 4083 May, 2014 [facility] [place] [facility] [address] [facility] [id number] [place] [address]- 0636 May, 2014 [facility] [place] [facility] [address] [facility] [id number] [place] [address]- 7666 May, [facility] [place] [facility] [address] [id number] [place] [address]- 1317 Apr, [facility] [place] [facility] [address] [id number] [place] [address]- 3614 Apr, [facility] [place] [facility] [address] [facility] [id number] [place] [address]- 1592 Apr, [facility] [place] [facility] [address] [id number] [place] [address]- 5055 Apr, [facility] [place] [facility] [address] [id number] [place] [address]- 7496 Apr, [facility] [place] [facility] [address] [id number] [place] [address]- 9746 Apr, [facility] [place] [facility] [address] [id number] [place] [address]- 6109 Apr, [facility] [place] [facility] [address] [id number] [place] [address]- 6543 Apr, [facility] [place] [facility] [address] [id number] [place] [address]149 Mar, [facility] [place] [facility] [address] [id number] [place] [address]- 2999 Mar, [facility] [place] [facility] [address] [id number] [place] [address]- 3616 Mar, [facility] [place] [facility] [address] [id number] [place] [address]- 1510 Mar, [facility] [place] [facility] [address] [id number] [place] [address]- 0910 Mar, [facility] [place] [facility] [address] [id number] [place] [address]- 7188 Mar, [facility] [place] [facility] [address] [id number] [place] [address]- 3110 Mar, [facility] [place] [facility] [address] [id number] [place] [address] Mar, [facility] [place] [facility] [address] [id number] [place] [address]- 1126 Mar, [facility] [place] [facility] [address] [id number] [place] [address]- 2856 Mar, [facility] [place] [facility] [address] [id number] [place] [address]- 7921 Mar, [facility] [place] [facility] [address] [id number] [place] [address]- 7187 Mar, [facility] [place] [facility] [address] [id number] [place] [address]- 2085 Mar, [facility] [place] [facility] [address] [id number] [place] [address]- 9751 Mar, [facility] [place] [facility] [address] [id number] [place] [address]- 9630 Mar, [facility] [place] [facility] [address] [id number] [place] [address]- 8032 Mar, [facility] [place] [facility] [address] [id number] [place] [address]- 5525 Mar, [facility] [place] [facility] [address] [id number] [place] [address]- 9948 Mar, [facility] [place] [facility] [address] [id number] [place] [address]- 0894 Mar, [facility] [place] [facility] [address] [id number] [place] [address]- 1987 Mar, [facility] [place] [facility] [address] [id number] [place] [address]- 1934 Mar, [facility] [place] [facility] [address] [id number] [place] [address]- 1160 Mar, [facility] [place] [facility] [address] [id number], [place] [address]- 8195 Jan, [facility] [place] [facility] [address] [id number] [place] [address]- 4577 Jan, [facility] [place] [facility] [address] [id number] [place] [address]- 3517 Jan, [facility] [place] [facility] [address] [id number] [place] [address]- 8000 Jan, [facility] [place] [facility] [address] [id number] [place] [address]- 7817 Jan, [facility] [place] [facility] [address] [id number] [place] [address]- 3139 Jan, [facility] [place] [facility] [address] [id number] [place] [address]- 5602 Jan, [facility] [place] [facility] [address] [id number] [place] [address]- 1057 Jan, [facility] [place] [facility] [address] [id number] [place] [address]- 6124 Jan, [facility] [place] [facility] [address] [id number] [place] [address]- 9059 Jan, [facility] [place] [facility] [address] [id number] [place] [address]- 4304 Jan, [facility] [place] [facility] [address] [id number] [place] [address]- 2333 Jan, [facility] [place] [facility] [address] [id number] [place] [address]- 2846 Jan, [facility] [place] [facility] [address] [id number] [place] [address]- 0193 Jan, [facility] [place] [facility] [address] [facility] [id number] [place] [address]- 9704 Jan, [facility] [place] [facility] [address] [id number] [place] [address]- 1846 Jan, [facility] [place] [facility] [address] [id number] [place] [address]- 7425 Jan, [facility] [place] [facility] [address] [id number] [place] [address]- 4707 Jan, [facility] [place] [facility] [address] [id number] [place] [address]- 8493 Jan, [facility] [place] [facility] [address] [id number] [place] [address]- 3218 Jan, [facility] [place] [facility] [address] [id number] [place] [address]- 4299 Dec, [facility] [place] [facility] [address] [id number] [place] [address]- 9905 Dec, [facility] [place] [facility] [address] [id number] [place] [address]- 9514 Dec, [facility] [place] [facility] [address] [id number] [place] [address]- 3964 Dec, [facility] [place] [facility] [address] [id number] [place] [address]- 2918 Dec, [facility] [place] [facility] [address] [id number] [place] [address]- 7886 Dec, [facility] [place] [facility] [address] [id number] [place] [address]- 8933 Dec, [facility] [place] [facility] [address] [id number] [place] [address]- 5771 Dec, [facility] [place] [facility] [address] [id number] [place] [address]- 8458 Dec, [facility] [place] [facility] [address] [id number] [place] [address]- 9121 Dec, [facility] [place] [facility] [address] [id number] [place] [address]- 1033 Dec, [facility] [place] [facility] [address] [id number] [place] [address]- 8783 Dec, [facility] [place] [facility] [address] [id number] [place] [address]- 6934 Dec, [facility] [place] [facility] [address] [id number] [place] [address]- 5541 Dec, [facility] [place] [facility] [address] [id number] [place] [address]- 8900 Dec, [facility] [place] [facility] [address] [id number] [place] [address]- 6595 22 Nov, 2013 [facility] [place] [facility] [address] [id number] [place] [address] 2547 22 Nov, 2013 [facility] [place] [facility] [address] [id number] [place] [address]- 6566 19 Nov, 2013 [facility] [place] [facility] [address] [id number] [place] [address] 2546 19 Nov, 2013 [facility] [place] [facility] [address] [id number] [place] [address] 2541 13 Nov, 2013 [facility] [place] [facility] [address] [id number] [place] [address] 2545 13 Nov, 2013 [facility] [place] [facility] [address] [id number] [place] [address]- 6191 10 Nov, 2013 [facility] [place] [facility] [address] [id number] [place] [address]- 1592 10 Nov, 2013 [facility] [place] [facility] [address] [id number] [place] [address]- 6960 08 Nov, 2013 [facility] [place] [facility] [address] [id number] [place] [address]- 9615 05 Nov, 2013 [facility] [place] [facility] [address] [id number] [place] [address]- 8726 05 Nov, 2013 [facility] [place] [facility] [address] [id number] [place] [address]- 2545 Nov, 2013 [facility] [place] [facility] [address] [id number] [place] [address]- 2547 Nov, 2013 [facility] [place] [facility] [address] [id number] [place] [address]- 5514 Oct, [facility] [place] [facility] [address] [id number] [place] [address]- 6155 Oct, [facility] [place] [facility] [address] [id number] [place] [address]- 0390 Oct, [facility] [place] [facility] [address] [id number] [place] [address]- 9067 Oct, [facility] [place] [facility] [address] [id number] [place] [address]- 3108 Oct, [facility] [place] [facility] [address] [id number] [place] [address]- 5498 Sep, [facility] [place] [facility] [address] [id number] [place] [address]- 1377 Sep, [facility] [place] [facility] [address] [id number] [place] [address]- 9168 Sep, [facility] [place] [facility] [address] [id number] [place] [address]- 8099 Sep, [facility] [place] [facility] [address] [id number] [place] [address]- 6654 Aug, [facility] [place] [facility] [address] [id number] [place] [address]- 1052 Aug, [facility] [place] [facility] [address] [id number] [place] [address]- 0926 Aug, [facility] [place] [facility] [address] [id number] [place] [address]- 7582 Aug, [facility] [place] [facility] [address] [id number] [place] [address]- 4486 Aug, [facility] [place] [facility] [address] [id number] [place] [address]- 3052 Aug, [facility] [place] [facility] [address] [id number] [place] [address]- 5938 Aug, [facility] [place] [facility] [address] [id number] [place] [address]- 8084 Aug, [facility] [place] [facility] [address] [id number] [place] [address]- 5894 Aug, [facility] [place] [facility] [address] [id number] [place] [address]- 2676 Aug, [facility] [place] [facility] [address] [id number] [place] [address]- 9576 Aug, [facility] [place] [facility] [address] [id number] [place] [address]- 0824 Aug, [facility] [place] [facility] [address] [id number] [place] [address]- 6622 Aug, [facility] [place] [facility] [address] [id number] [place] [address]- 6484 Aug, [facility] [place] [facility] [address] [id number] [place] [address]- 4945 Aug, [facility] [place] [facility] [address] [id number] [place] [address]- 8613 Aug, [facility] [place] [facility] [address] [id number] [place] [address]- 8574 Aug, [facility] [place] [facility] [address] [id number] [place] [address]- 3634 Aug, [facility] [place] [facility] [address] [id number] [place] [address]- 0077 Aug, [facility] [place] [facility] [address] [id number] [place] [address]- 2764 Aug, [facility] [place] [facility] [address] [id number], [place] [address]- 3771 Aug, [facility] [place] [facility] [address] [id number], [place] [address]- 8328 Aug, [facility] [place] [facility] [address] [id number] [place] [address]- 4824 Aug, [facility] [place] [facility] [address] [id number] [place] [address]- 3343 Aug, [facility] [place] [facility] [address] [id number] [place] [address]- 0490 July, [facility] [place] [facility] [address] [id number], [place] [address]- 8279 July, [facility] [place] [facility] [address] [id number] [place] [address]- 0624 July, [facility] [place] [facility] [address] [id number] [place] [address]- 9200 July, [facility] [place] [facility] [address] [id number] [place] [address]- 6458 July, [facility] [place] [facility] [address] [id number] [place] [address]- 7987 July, [facility] [place] [facility] [address] [id number] [place] [address]- 3224 Jun, [facility] [place] [facility] [address] [id number] [place] [address]- 6839 Jun, [facility] [place] [facility] [address] [id number] [place] [address]- 9056 Jun, [facility] [place] [facility] [address] [id number] [place] [address]- 5611 Jun, [facility] [place] [facility] [address] [id number] [place] [address]- 1189 Jun, [facility] [place] [facility] [address] [id number] [place] [address]- 0946 Jun, [facility] [place] [facility] [address] [id number] [place] [address]- 1420 Jun, [facility] [place] [facility] [address] [id number] [place] [address]- 4887 Jun, [facility] [place] [facility] [address] [id number] [place] [address]- 6532 Jun, [facility] [place] [facility] [address] [id number] [place] [address]- 3102 Jun, [facility] [place] [facility] [address] [id number] [place] [address]- 0278 Jun, [facility] [place] [facility] [address] [id number] [place] [address]- 7261 Jun, [facility] [place] [facility] [address] [id number] [place] [address]- 9598 Jun, [facility] [place] [facility] [address] [id number] [place] [address]- 4006 Jun, [facility] [place] [facility] [address] [id number] [place] [address]- 0225 Jun, [facility] [place] [facility] [address] [id number] [place] [address]- 5618 May, [facility] [place] [facility] [address] [id number] [place] [address]- 6336 May, [facility] [place] [facility] [address] [id number] [place] [address]- 1430 May, [facility] [place] [facility] [address] [id number] [place] [address]- 9760 May, [facility] [place] [facility] [address] [id number] [place] [address]- 3738 May, [facility] [place] [facility] [address] [id number] [place] [address]- 3132 May, [facility] [place] [facility] [address] [id number] [place] [address]- 9370 May, [facility] [place] [facility] [address] [id number] [place] [address]- 4606 May, [facility] [place] [facility] [address] [id number] [place] [address]- 4319 May, [facility] [place] [facility] [address] [id number] [place] [address]- 7126 May, [facility] [place] [facility] [address] [id number] [place] [address]- 2599 May, [facility] [place] [facility] [address] [id number] [place] [address]- 4049 May, [facility] [place] [facility] [address] [id number] [place] [address]- 4829 May, [facility] [place] [facility] [address] [id number] [place] [address]- 4243 May, [facility] [place] [facility] [address] [id number] [place] [address]- 3718 May, [facility] [place] [facility] [address] [id number] [place] [address]- 2004 May, [facility] [place] [facility] [address] [id number] [place] [address]- 3852 May, [facility] [place] [facility] [address] [id number] [place] [address]- 4141 Apr, [facility] [place] [facility] [address] [id number] [place] [address]- 9423 Apr, [facility] [place] [facility] [address] [id number] [place] [address]- 3475 Apr, [facility] [place] [facility] [address] [id number] [place] [address]- 2980 Apr, [facility] [place] [facility] [address] [id number] [place] [address]- 8635 Apr, [facility] [place] [facility] [address] [id number] [place] [address]- 0724 Apr, [facility] [place] [facility] [address] [id number] [place] [address]- 3932 Apr, [facility] [place] [facility] [address] [id number] [place] [address]- 2141 Apr, [facility] [place] [facility] [address] [id number] [place] [address]- 9804 Apr, [facility] [place] [facility] [address] [id number] [place] [address]- 4287 Apr, [facility] [place] [facility] [address] [id number] [place] [address]- 1483 08 Apr, 2013 [facility] [address] [id number] [place] [address]- 7918 Apr, [facility] [address] [id number] [place] [address]- 6315 Apr, [facility] [address] [id number] [place] [address] Apr, [facility] [address] [id number] [place] [address] Apr, [facility] [address] [id number] [place] [address] Apr, [facility] [address] [id number] [place] [address] Mar, [facility] [address] [id number] [place] [address] 30 Mar, 2013 [facility] [address] [id number] [place] [address] 30 Mar, 2013 [facility] [address] [id number] [place] [address]78 30 Mar, 2013 [facility] [address] [id number] [place] [address] 130[address] 18 Mar, 2013 [facility] [address] [id number] [place] [address] 46[address] 18 Mar, 2013 [facility] [address] [id number] [place] [address] 18 Mar, 2013 [facility] [place] [facility] [address] [id number] [place] [address] 18 Mar, 2013 [facility] [address] [id number] [place] [address] 17 Mar, 2013 [facility] [place] [facility] [address] [id number] [place] [address] Mar, [facility] [address] [id number] [place] [address] 05 Mar, 2013 [facility] [place] [facility] [address] [id number] [place] [address] Mar, [facility] [place] [facility] [address] [id number] [place] [address] Mar, [facility] [place] [facility] [address] [id number] [place] [address] Mar, [facility] [place] [facility] [address] [id number] [place] [address]681 Mar, [facility] [place] [facility] [address] [id number] [place] [address]- [address] Mar, [facility] [place] [facility] [address] [id number] [place] [address]80 Mar, [facility] [place] [facility] [address] [id number] [place] [address] 8916 Mar, [facility] [place] [facility] [address] [id number] [place] [address] Jan, [facility] [place] [facility] [address] [id number] [place] [address]64 Jan, [facility] [place] [facility] [address] [id number], [place] [address] Jan, [facility] [place] [facility] [address] [id number], [place] [address] Jan, [facility] [place] [facility] [address] [id number] [place] [address]649 Nov, [facility] [place] [facility] [address] [id number] [place] [address] 10 Nov, 2012 [facility] [place] [facility] [address] [id number] [place] [address]32 Nov, [facility] [place] [facility] [address] [id number] [place] [address] 1084 Nov, [facility] [address] [id number] [place] [address] Oct, [facility] [place] [facility] [address] [id number] [place] [address] Oct, [facility] [place] [facility] [address] [id number] [place] [address] 279[address] Oct, [facility] [place] [facility] [address] [id number] [place] [address]273 Oct, [facility] [place] [facility] [address] [id number] [place] [address] Sep, [facility] [place] [facility] [address] [id number] [place] [address] 3942 Sep, [facility] [address] [id number] [place] [address]- [address]756 Sep, [facility] [place] [facility] [address] [id number] [place] [address] 7800 Sep, [facility] [place] [facility] [address] [id number] [place] [address] 74[address] Sep, [facility] [place] [facility] [address] [id number] [place] [address]- 1276 Sep, [facility] [place] [facility] [address] [id number] [place] [address]- [address]578 Sep, [facility] [place] [facility] [address] [id number] [place] [address]- 7869 Sep, [facility] [place] [facility] [address] [id number] [place] [address] 8961 Sep, [facility] [place] [facility] [address] [id number] [place] [address] 7416 Aug, [facility] [place] [facility] [address] [id number] [place] [address]- [address]694 Aug, [facility] [place] [facility] [address] [id number] [place] [address]- 8673 Aug, [facility] [address] [id number] [place] [address]- [address] Aug, [facility] [place] [facility] [address] [id number] [place] [address] July, [facility] [address] [id number] [place] [address] July, [facility] [address] [id number] [place] [address] July, [facility] [address] [id number] [place] [address]- [address] July, [facility] [address] [id number] [place] [address] July, [facility] [address] [id number] [place] [address]807 July, [facility] [address] [id number] [place] [address]- [address] July, [facility] [address] [id number] [place] [address]- 8485 Jun, [facility] [address] [id number] [place] [address] 4173 May, [facility] [address] [id number] [place] [address] 9534 May, [facility] [place] [facility] [address] [id number] [place] [address]- [address]483 May, [facility] [place] [facility] [address] [id number] [place] [address]803 May, [facility] [place] [facility] [address] [id number] [place] [address]- [address] May, [facility] [place] [facility] [address] [id number] [place] [address] May, [facility] [address] [facility] [id number] [place] [address] May, [facility] [address] [facility] [id number] [place] [address] May, IMMUNIZATIONS No Known Immunizations SOCIAL HISTORY Never Assessed REASON FOR VISIT Hospital f/u, PT was in [facility] for 5 nights due to going unresponsive. - tisha VALADEZ PLAN OF CARE VITAL SIGNS Height 64 in 2017-12-25 Weight 302 lbs 2017-12-25 Temperature 98.0 degrees Fahrenheit 2017-12-25 Heart Rate 67 bpm 2017-12-25 Respiratory Rate 20 2017-12-25 Oximetry w/ oxygen @ 4L:84 % 2017-12-25 BMI 51.83 kg/m2 2017-12-25 Blood pressure systolic 118 mmHg 2017-12-25 Blood pressure diastolic 68 mmHg 2017-12-25 MEDICATIONS Medication Instructions Dosage Frequency Start Date End Date Duration Status Furosemide 40 MG TAKE ONE TABLET BY MOUTH DAILY 30 30 Active Mupirocin 2 % APPLY TO AFFECTED AREA TWICE DAILY 5 Active Metoprolol Tartrate 100 mg Orally Twice a day 1 tablet 12h 30 Active True Metrix Blood Glucose Test - USE TO TEST BLOOD GLUCOSE LEVELS TWICE DAILY 25 Active Nystatin 441248 UNIT/GM Externally Twice a day 1 to affected area 12h 16 Mar, 2015 Active Glucagon Emergency 1 mg 30 Jul, 2013 Not-Taking Dialyvite Orally Once a day 1 tablet 24h Not-Taking Lidoderm 5 % Externally Once a day 1 patch to skin remove after 12 hours 24h Aug, Active Cefpodoxime Proxetil 100 MG Active Renvela 800 MG 2tablet with breakfast and dinner and 1 tablet with lunch Not-Taking Montelukast Sodium 10 MG TAKE ONE TABLET BY MOUTH ONCE DAILY IN THE EVENING 30 Active Amitriptyline HCl 25 MG Orally Once a day 1 tablet 24h Oct, 30 day(s) Active Humalog KwikPen 100 UNIT/ML Subcutaneous 3 times a day per sliding scale 8h May, 30 days Active Fluticasone Propionate 50 MCG/ACT Nasally Once a day 1 spray in each nostril 24h 30 days Active Commode Bedside - as directed Nov, lifetime Active Singulair 10 MG take 1 tablet (10 mg) by oral route once daily in the evening Active PredniSONE 20 mg Orally Once a day 2 tablets 24h Nov, Dec, 5 days Active PredniSONE 20 mg Orally Once a day 2 tablets 24h Apr, 5 days Not-Taking Rosuvastatin Calcium 20 MG TAKE 1 TABLET BY MOUTH ONCE A DAY 30 Active Crestor 20 mg Orally Once a day 1 tablet 24h Active HydrOXYzine HCl 25 MG TAKE 1 TABLET BY MOUTH FOUR TIMES DAILY NEEDED FOR ANXIETY 22 Active Wheelchair - .... 24h July, lifetime Active Aspirin 81 mg take 1 tablet (81 mg) by oral route once daily May, Active [place] 10-325 MG Orally every 6 hrs take 1 tablet by oral route every 6 hours as needed for pain 6h May, 28 days Active Loratadine 10 MG TAKE ONE TABLET BY MOUTH DAILY AT BEDTIME 30 Active Gabapentin 300 MG Orally Three times a day 1 capsule 8h 30 Active Oxygen 5 as directed July, Active Amlodipine Besylate 10 MG TAKE 1 TABLET BY MOUTH DAILY 30 Active Guaifenesin 400 MG Orally 4 times a day 1 tablet as needed 6h Apr, Active Isosorbide Mononitrate ER 30 mg TAKE 1 TABLET BY MOUTH DAILY 30 Active Lantus SoloStar 100 unit/ml Subcutaneous Once a day INJECT 36 UNITS SUBCUTANEOUSLY DAILY AT BEDTIME 24h Active Eliquis 2.5 MG Active RESULTS Name Result Date Reference Range Xray : Chest 2 View (IN HOUSE) 2017-12-25 PROCEDURES Procedure Date Ordered Result Body Site X-RAY EXAM CHEST 2 VIEWS Dec 25, 2017 [facility] VISIT ESTABLISHED PATIENT Dec 25, 2017 INSTRUCTIONS MEDICATIONS ADMINISTERED No Known Medications [...]
--- OUTSIDE RECORDS SUMMARY | 2018-03-12 21:19 | XMS REPORT ---
Author Author MCKENNA HEBERT Organization [facility] Address [address] [place] [address] Care Team Providers Care [employer] Assistant Name Role Phone MCKENNA HEBERT Unavailable PROBLEMS Type Condition ICD9-CM Code NYC86-VE Code Onset Dates Condition Status SNOMED Code Problem Intra-dialytic hypotension I95.3 Active 613934316 Problem Seasonal allergic rhinitis due to other allergic trigger J30.89 Active 509233511 Problem Chronic congestive heart failure, unspecified congestive heart failure type I50.9 Active 47620060 Problem Self-care deficit for toileting R46.0 Active 779346116 Problem Primary insomnia F51.01 Active 4408082 Problem Angina pectoris I20.9 Active 071398857 Problem Chronic congestive heart failure, unspecified heart failure type I50.9 Active 04511527 Problem 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 Active 9100681 Problem Other chronic pain G89.29 Active 86216705 Problem Diabetes type 2, controlled E11.9 Active 65356702 Problem Renal failure N19 Active 72442376 Problem Neuropathy G62.9 Active 344029193 Problem Cellulitis of right lower extremity L03.115 Active 540194577 Problem Amput below knee, unilat S88.119A Active 53955067 ALLERGIES No Information ENCOUNTERS Encounter Location Date Diagnosis [facility] [address] [id number] [address] Dec, [facility] [address] [id number] [address] Dec, [facility] [address] [id number] [address] Nov, Pneumonia due to infectious organism, unspecified laterality , unspecified part of lung J18.9 and Self-care deficit for toileting R46.0 [facility] [address] [id number] [address] 14 Nov, 2017 [facility] [address] [place] [address] 09625- 6824 16 Oct, 2017 Diabetes type 2, controlled E11.9 ; Primary insomnia F51.01 and Bilateral headaches R51 [facility] [address] [address] 4[address] Oct, [facility] [id number] [place] [address] 16588- 8272 Sep, [facility] [address] [address] Sep, Dental examination Z01.20 and Dental caries K02.9 [facility] [id number] [place] [address] 69902- 7137 Sep, [facility] [id number] [place] [address] 56314- 0767 Sep, [facility] [id number] [place] [address] 97123- 9399 Sep, Other chronic pain G89.29 and Pain in right knee M25.561 [facility] [id number] [place] [address] 80562- 5267 05 Sep, 2017 [facility] [address] [place] [address] 46910- 8609 Aug, [facility] [id number] [place] [address] 28001- 4926 Aug, 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 [facility] [address] [place] [address] 84530- 5884 15 Aug, 2017 [facility] [id number] [place] [address] 69855- 1417 11 Aug, 2017 Diabetes type 2, controlled E11.9 and Acute pain of right knee M25.561 [facility] [id number] [place] [address] 79946- 2536 Aug, [facility] [address], [place] [address]- 0490 July, [facility] [address], [place] [address]- 4591 Jun, [facility] [address] [address]- 5010 Jun, [facility] [id number] [place] [address] 99678- 2815 Jun, Diabetes type 2, controlled E11.9 [facility] [address], [place] [address]- 45[address] Jun, [facility] [address], [place] [address]- 8808 May, [facility] [id number] [place] [address] 50056- 3205 May, [facility] [address] [address]- 5691 May, [facility] [address], [place] [address]- 5343 May, Chronic congestive heart failure, unspecified congestive heart failure type I50.9 [facility] [address], [place] [address] May, Diabetes type 2, controlled E11.9 ; BMI 50.0-59.9, adult Z68.43 ; Chronic congestive heart failure, unspecified heart failure type I50.9 ; Angina pectoris I20.9 ; Seasonal allergic rhinitis due to other allergic trigger J30.89 and Renal failure N19 [facility] [address] [address] May, [facility] [address], [place] [address]- 8891 May, [facility] [address], [place] [address]- 8187 May, [facility] [address], [place] [address]- 3921 May, [facility] [id number] [place] [address] 33261- 9942 May, [facility] [id number] [place] [address] 32089- 9106 Apr, BMI 50.0-59.9, adult Z68.43 [facility] [id number] [place] [address] 73110- 7204 Apr, BMI 50.0-59.9, adult Z68.43 ; Post-procedural fever R50.82 and Bronchitis J40 [facility] [id number] [place] [address] 62737- 9429 Apr, Chronic congestive heart failure, unspecified congestive heart failure type I50.9 [facility] [id number] [place] [address] 64259- 7208 Jan, [facility] [id number] [place] [address] 54587- 7623 Jan, Diabetes type 2, controlled E11.9 [facility] [id number] [place] [address] 10214- 2802 Jan, Neuropathy G62.9 [facility] [address] [place] [address] 64905- 5811 Jan, [facility] [address] [place] [address] 17093- 1900 Jan, [facility] [id number] [place] [address] 80770- 9170 Jan, [facility] [id number] [place] [address] 06611- 6240 Jan, [facility] [address] [place] [address] 73683- 7776 Jan, [facility] [address] [facility] [id number] [place] [address]- 3918 Dec, [facility] [address] [facility] [id number] [place] [address]- 5342 Dec, [facility] [address] [facility] [id number] [place] [address]- 6127 Dec, Diabetes type 2, controlled E11.9 [facility] [address] [facility] [id number] [place] [address]- 5149 Dec, [facility] [address] [facility] [id number] [place] [address]- 2467 Dec, [facility] [address] [facility] [id number], [place] [address]- 8960 Dec, Chronic congestive heart failure, unspecified congestive heart failure type I50.9 [facility] [address] [facility] [id number] [place] [address]- 2746 Dec, [facility] [address] [facility] [id number], [place] [address]- 9678 Dec, [facility] [address] [facility] [id number], [place] [address]- 5460 Nov, Chronic congestive heart failure, unspecified congestive heart failure type I50.9 [facility] [address] [facility] [id number] [place] [address]- 7102 Nov, Chronic congestive heart failure, unspecified congestive heart failure type I50.9 [facility] [address] [facility] [id number], [place] [address]- 5288 Nov, [facility] [address] [facility] [id number] [place] [address]- 5061 Oct, [facility] [address] [facility] [id number] [place] [address]- 6209 Oct, [facility] [address] [facility] [id number], [place] [address]- 3230 Oct, Chronic congestive heart failure, unspecified congestive heart failure type I50.9 [facility] [address], [place] [address]- 1506 Oct, [facility] [id number], [place] [address]- 1266 Oct, Pneumonia of both lungs due to infectious organism, unspecified part of lung J18.9 [facility] [address] [place] [address] 36740 2546 Oct, [facility] [id number] [place] [address] 88474 2542 Oct, Diabetes type 2, controlled E11.9 [facility] [id number] [place] [address] 70376- 4406 Oct, Diabetes type 2, controlled E11.9 [facility] [id number] [place] [address] 36228- 6859 Sep, [facility] [id number] [address]- 3873 Sep, Neuropathy G62.9 [facility] [id number] [place] [address] 21531- 8958 Aug, Intra-dialytic hypotension I95.3 [facility] [address], [place] [address]- 3216 July, [facility] [address], [place] [address]- 3786 July, [facility] [address], [place] [address] 2546 July, [facility] [id number], [place] [address]- 1176 July, Amput below knee, unilat S88.119A [facility] [address], [place] [address]- 3256 May, [facility] [id number] [place] [address]- 7619 May, Neuropathy G62.9 [facility] [address] [place] [address]- 4936 May, [facility] [address] [place] [address]- 0126 May, [facility] [address] [place] [address]- 6186 May, [facility] [address] [place] [address]- 5612 May, [facility] [id number] [place] [address], [place] [address]- 3452 May, Neuropathy G62.9 [facility] [address] [place] [address]- 2148 Apr, [facility] [address] [place] [address]- 4573 Apr, [facility] [address] [place] [address]- 5811 Apr, Diabetes type 2, controlled E11.9 and Renal failure N19 [facility] [address] [place] [address] -7713 Apr, [facility] [address] [place] [address]- 0818 Apr, [facility] [address] [place] [address]- 1567 Mar, [facility] [address] [place] [address]- 5724 Mar, [facility] [address] [place] [address]- 1878 Mar, [facility] [address] [place] [address]- 0926 Mar, [facility] [address], [place] [address]- 5776 Mar, [facility] [id number] [place] [address] 94442- 6796 Jan, Localized edema R60.0 [facility] [address] [facility] [id number] [address]- 6061 Jan, [facility] [id number] [place] [address] 67394- 1056 Jan, [facility] [address] [facility] [id number] [place] [address] 69897- 9124 Jan, [facility] [id number] [place] [address] 98677- 2298 Jan, [facility] [id number] [place] [address] 43442- 5114 Jan, [facility] [id number] [place] [address] 02290- 8017 Jan, [facility] [id number] [place] [address] 81934- 8583 Dec, Diabetes type 2, controlled E11.9 and Chronic nonintractable headache, unspecified headache type R51 [facility] [address], [place] [address]- 0725 Dec, [facility] [id number] [place] [address] 85759- 9306 Dec, [facility] [address] [address]- 6174 Nov, [facility] [id number] [place] [address] 50221- 2284 Nov, [facility] [address], [place] [address]- 8199 Oct, [facility] [address] [place] [address] 85184- 0295 Oct, Migraine without status migrainosus, not intractable, unspecified migraine type G43.909 [facility] [address] [address]- 6326 Oct, [facility] [id number] [place] [address] 30026 2546 Sep, Amput below knee, unilat S88.119A and Neuropathy G62.9 [facility] [id number] [place] [address] 02847 2546 Sep, [facility] [id number] [place] [address] 25245- 3776 Sep, [facility] [id number] [place] [address] 06617- 9219 Sep, [facility] [id number] [place] [address] 75937- 6330 Aug, [facility] [id number] [place] [address] 98816- 4087 Aug, [facility] [address] [place] [address] 95692- 9283 Aug, Diabetes type 2, controlled E11.9 [facility] [id number] [place] [address] 62083 2546 Aug, [facility] [address] [place] [address] 24167- 3545 Jun, Diabetes type 2, controlled E11.9 and Neuropathy G62.9 [facility] [address], [place] [address] 2547 Jun, [facility] [id number] [place] [address] 42745 2546 Jun, [facility] [address] [id number], [place] [address] 2546 Jun, [facility] [id number] [place] [address] 16491- 6660 Jun, [facility] [address] [facility] [id number] [place] [address]- 8442 May, [facility] [address] [facility] [id number] [place] [address]- 8994 May, Diabetes type 2, controlled E11.9 [facility] [address] [place] [address]- 8667 May, [facility] [address] [facility] [id number] [place] [address]- 4163 May, [facility] [id number] [place] [address], [place] [address]- 5138 May, [facility] [address] [place] [address]- 2773 May, [facility] [id number] [place] [address] 68062- 6620 17 May, 2015 [facility] [address] [place] [address]- 2206 May, [facility] [address] [place] [address], [place] [address]- 0356 16 May, 2015 [facility] [address] [address]- 9674 15 May, 2015 COPD (chronic obstructive pulmonary disease) J44.9 [facility] [address] [address]- 1428 15 May, 2015 [facility] [id number] [address]- 0623 May, [facility] [address], [place] [address]- 2838 May, [facility] [address], [place] [address]- 8154 May, [facility] [address], [place] [address]- 0130 May, [facility] [address]- 2606 May, Renal failure N19 and Pneumonia, organism unspecified, unspecified laterality, unspecified part of lung J18.9 [facility] [address] [place] [address]- 2945 Apr, [facility] [address] [address]- 6867 Apr, [facility] [address] [place] [address]- 4498 Apr, [facility] [address], [place] [address]- 1479 Apr, Diabetes mellitus 250.00 [facility] [address] [address]- 6756 Apr, [facility] [address] [address]- 7282 Apr, [facility] [address] [place] [address]- 9835 Apr, [facility] [address], [place] [address]- 6056 Apr, [facility] [address] [address]- 7205 Mar, [facility] [address], [place] [address]- 2568 Mar, [facility] [address] [address]- 8402 Mar, [facility] [address] [address]- 2880 16 Mar, 2015 Renal failure N19 [facility] [address] [id number] [address]- 3263 14 Mar, 2015 [facility] [place] [facility] [address] [id number] [place] [address]- 6441 Mar, [facility] [place] [facility] [address] [id number] [place] [address]- 9080 Mar, [facility] [place] [facility] [address] [facility] [id number] [place] [address]- 4231 Jan, [facility] [place] [facility] [address] [id number] [place] [address], [place] [address]- 5183 Jan, [facility] [place] [facility] [address] [id number] [place] [address]- 7250 Jan, [facility] [place] [facility] [address] [id number] [place] [address], [place] [address]- 5348 Jan, [facility] [place] [facility] [address] [place] [address]- 3428 Dec, [facility] [place] [facility] [address] [facility] [id number] [place] [address], [place] [address]- 0968 Dec, [facility] [place] [facility] [address] [id number] [place] [address]- 7392 Dec, [facility] [place] [facility] [address] [place] [address]- 6390 Nov, [facility] [place] [facility] [address] [place] [address]- 5195 Nov, [facility] [place] [facility] [address] [facility] [id number], [place] [address]- 0472 Nov, [facility] [place] [facility] [address] [facility] [id number] [place] [address]- 5998 Oct, [facility] [place] [facility] [address] [id number] [place] [address]- 7807 Oct, [facility] [place] [facility] [address] [address]- 4645 Oct, Renal failure 586 and Obesity 278.00 [facility] [place] [facility] [address] [id number], [place] [address]- 1980 Oct, [facility] [address] [id number], [place] [address]- 9656 Oct, [facility] [address] [facility] [id number], [place] [address]- 0778 Oct, [facility] [address] [id number], [place] [address]- 9086 Sep, [facility] [address] [facility] [id number], [place] [address]- 6264 Sep, [facility] [address], [place] [address]- 2216 Sep, Diabetes mellitus 250.00 and Congestive heart failure, unspecified 428.0 [facility] [address] [place] [address]- 4910 Aug, [facility] [address], [place] [address]- 9322 Aug, [facility] [address] [id number], [place] [address]- 4659 Aug, [facility] [address], [place] [address]- 2810 July, [facility] [address] [id number], [place] [address]- 1282 July, [facility] [address], [place] [address]- 2069 July, Heart murmur, systolic 785.2 [facility] [address] [id number], [place] [address] July, [facility] [address] [id number] [address] July, [facility] [address] [id number], [place] [address] Jun, [facility] [place] [facility] [address] [id number] [place] [address] 13 Jun, 2014 [facility] [place] [facility] [address] [id number] [place] [address] May, [facility] [place] [facility] [address] [id number] [place] [address] May, [facility] [place] [facility] [address] [id number] [place] [address] May, [facility] [place] [facility] [address] [id number] [place] [address] 18 May, 2014 [facility] [place] [facility] [address] [id number] [place] [address] May, [facility] [place] [facility] [address] [id number] [place] [address] 16 May, 2014 [facility] [place] [facility] [address] [id number] [place] [address] May, 2014 [facility] [place] [facility] [address] [id number] [place] [address] May, [facility] [place] [facility] [address] [id number] [place] [address] May, [facility] [place] [facility] [address] [id number] [place] [address] May, [facility] [place] [facility] [address] [id number] [place] [address] May, 2014 [facility] [place] [facility] [address] [id number] [place] [address] May, 2014 [facility] [place] [facility] [address] [id number] [place] [address] May, 2014 [facility] [place] [facility] [address] [id number] [place] [address] May, 2014 [facility] [place] [facility] [address] [id number] [place] [address] 18 May, 2014 [facility] [place] [facility] [address] [id number] [place] [address] 18 May, 2014 [facility] [place] [facility] [address] [id number] [place] [address] 18 May, 2014 [facility] [place] [facility] [address] [facility] [id number] [place] [address] 18 May, 2014 [facility] [place] [facility] [address] [id number] [place] [address] 18 May, 2014 [facility] [place] [facility] [address] [id number] [place] [address] 18 May, 2014 [facility] [place] [facility] [address] [facility] [id number] [place] [address] 16 May, 2014 [facility] [place] [facility] [address] [facility] [id number] [place] [address] 16 May, 2014 [facility] [place] [facility] [address] [facility] [id number] [place] [address] 11 May, 2014 [facility] [place] [facility] [address] [facility] [id number] [place] [address] 0929 11 May, 2014 [facility] [place] [facility] [address] [facility] [id number] [place] [address] 3697 02 May, 2014 [facility] [place] [facility] [address] [facility] [id number] [place] [address]- 3268 02 May, 2014 [facility] [place] [facility] [address] [facility] [id number] [place] [address]76 Apr, [facility] [place] [facility] [address] [id number] [place] [address]- 9273 Apr, [facility] [place] [facility] [address] [facility] [id number] [place] [address]- 0794 14 Apr, 2014 [facility] [place] [facility] [address] [facility] [id number] [place] [address]- 7837 13 Apr, 2014 [facility] [place] [facility] [address] [id number] [place] [address]- 6447 Apr, [facility] [place] [facility] [address] [id number] [place] [address] 8146 Apr, [facility] [place] [facility] [address] [id number] [place] [address] 1912 Apr, [facility] [place] [facility] [address] [id number] [place] [address]- 3227 Apr, [facility] [place] [facility] [address] [id number] [place] [address]- 1672 Mar, [facility] [place] [facility] [address] [id number] [place] [address]- 2982 Mar, [facility] [place] [facility] [address] [id number] [place] [address]- 5973 Mar, [facility] [place] [facility] [address] [id number] [place] [address]- 8031 Mar, [facility] [place] [facility] [address] [id number] [place] [address] 1900 Mar, [facility] [place] [facility] [address] [id number] [place] [address]- 3847 Mar, [facility] [place] [facility] [address] [id number] [place] [address]- 1203 Mar, [facility] [place] [facility] [address] [id number] [place] [address]- 9906 Mar, [facility] [place] [facility] [address] [id number] [place] [address]- 5776 Mar, [facility] [place] [facility] [address] [id number] [place] [address]- 4311 Mar, [facility] [place] [facility] [address] [id number] [place] [address] Mar, [facility] [place] [facility] [address] [id number] [place] [address]- 7991 Mar, [facility] [place] [facility] [address] [id number] [place] [address]- 5207 Mar, [facility] [place] [facility] [address] [id number] [place] [address]- 3936 Mar, [facility] [place] [facility] [address] [id number] [place] [address]- 4228 Mar, [facility] [place] [facility] [address] [id number] [place] [address]- 3646 Mar, [facility] [place] [facility] [address] [id number] [place] [address]- 7572 Mar, [facility] [place] [facility] [address] [id number] [place] [address]- 1132 Mar, [facility] [place] [facility] [address] [id number] [place] [address]- 2033 Mar, [facility] [place] [facility] [address] [id number] [place] [address]- 0645 Mar, [facility] [place] [facility] [address] [id number] [place] [address]- 8301 Mar, [facility] [place] [facility] [address] [id number] [place] [address]- 5787 Mar, [facility] [place] [facility] [address] [id number] [place] [address]- 4642 Jan, [facility] [place] [facility] [address] [id number] [place] [address]- 6613 Jan, [facility] [place] [facility] [address] [id number] [place] [address]- 9391 Jan, [facility] [place] [facility] [address] [id number] [place] [address]- 4504 Jan, [facility] [place] [facility] [address] [id number] [place] [address]- 8575 Jan, [facility] [place] [facility] [address] [id number] [place] [address]- 2440 Jan, [facility] [place] [facility] [address] [id number] [place] [address]- 1785 Jan, [facility] [place] [facility] [address] [id number] [place] [address]- 7896 Jan, [facility] [place] [facility] [address] [id number] [place] [address]- 6716 Jan, [facility] [place] [facility] [address] [id number] [place] [address]- 1869 Jan, [facility] [place] [facility] [address] [id number] [place] [address]- 0822 Jan, [facility] [place] [facility] [address] [id number] [place] [address]- 9901 Jan, [facility] [place] [facility] [address] [id number] [place] [address]- 8317 Jan, [facility] [place] [facility] [address] [id number] [place] [address]- 0038 Jan, [facility] [place] [facility] [address] [id number] [place] [address]- 4633 Jan, [facility] [place] [facility] [address] [id number] [place] [address]- 3478 Jan, [facility] [place] [facility] [address] [id number] [place] [address]- 2676 Jan, [facility] [place] [facility] [address] [id number] [place] [address]- 0917 Jan, [facility] [place] [facility] [address] [id number] [place] [address]- 6553 Jan, [facility] [place] [facility] [address] [id number] [place] [address]- 3489 Jan, [facility] [place] [facility] [address] [id number] [place] [address]- 4748 Dec, [facility] [place] [facility] [address] [id number] [place] [address]- 2532 Dec, [facility] [place] [facility] [address] [id number] [place] [address]- 3628 Dec, [facility] [place] [facility] [address] [id number] [place] [address]- 5875 Dec, [facility] [place] [facility] [address] [id number] [place] [address]- 7157 Dec, [facility] [place] [facility] [address] [id number] [place] [address]- 7936 Dec, [facility] [place] [facility] [address] [id number] [place] [address]- 9294 Dec, [facility] [place] [facility] [address] [id number] [place] [address]- 4831 Dec, [facility] [place] [facility] [address] [id number] [place] [address]- 4602 Dec, [facility] [place] [facility] [address] [id number] [place] [address]- 9829 Dec, [facility] [place] [facility] [address] [id number], [place] [address]- 5547 Dec, [facility] [place] [facility] [address] [id number], [place] [address]- 2285 Dec, [facility] [place] [facility] [address] [id number], [place] [address]- 8849 Dec, [facility] [place] [facility] [address] [id number] [place] [address]- 5815 Dec, [facility] [place] [facility] [address] [id number] [place] [address]- 9434 Dec, [facility] [place] [facility] [address] [id number] [place] [address]- 6713 Nov, [facility] [place] [facility] [address] [id number] [place] [address]- 4386 22 Sep, 2013 [facility] [place] [facility] [address] [id number] [place] [address] 2546 19 Sep, 2013 [facility] [place] [facility] [address] [id number] [place] [address]- 0776 19 Nov, 2013 [facility] [place] [facility] [address] [id number] [place] [address] 2546 13 Nov, 2013 [facility] [place] [facility] [address] [id number] [place] [address]- 5826 13 Nov, 2013 [facility] [place] [facility] [address] [id number] [place] [address]- 8826 10 Nov, 2013 [facility] [place] [facility] [address] [id number] [place] [address]- 0956 10 Nov, 2013 [facility] [place] [facility] [address] [id number] [place] [address]- 6227 08 Nov, 2013 [facility] [place] [facility] [address] [id number] [place] [address]- 7095 05 Sep, 2013 [facility] [place] [facility] [address] [id number] [place] [address]- 4173 05 Nov, 2013 [facility] [place] [facility] [address] [id number] [place] [address]- 6570 03 Nov, 2013 [facility] [place] [facility] [address] [id number] [place] [address]- 6914 Nov, 2013 [facility] [place] [facility] [address] [id number] [place] [address]- 2548 Oct, [facility] [place] [facility] [address] [id number] [place] [address]- 1742 Oct, [facility] [place] [facility] [address] [id number] [place] [address]- 0870 Oct, [facility] [place] [facility] [address] [id number] [place] [address]- 4058 Oct, [facility] [place] [facility] [address] [id number] [place] [address]- 4604 Oct, [facility] [place] [facility] [address] [id number] [place] [address]- 1651 Sep, [facility] [place] [facility] [address] [id number] [place] [address]- 1809 Sep, 2013 [facility] [place] [facility] [address] [id number] [place] [address]- 3464 Sep, [facility] [place] [facility] [address] [id number] [place] [address]- 5208 Sep, [facility] [place] [facility] [address] [id number] [place] [address]- 2484 Aug, [facility] [place] [facility] [address] [id number] [place] [address]- 7162 Aug, [facility] [place] [facility] [address] [id number] [place] [address]- 9454 Aug, [facility] [place] [facility] [address] [id number] [place] [address]- 9786 Aug, [facility] [place] [facility] [address] [id number] [place] [address]- 0043 Aug, [facility] [place] [facility] [address] [id number] [place] [address]- 3273 Aug, [facility] [place] [facility] [address] [id number] [place] [address]- 1090 Aug, [facility] [place] [facility] [address] [id number] [place] [address]- 5045 Aug, [facility] [place] [facility] [address] [id number] [place] [address]- 3331 Aug, [facility] [place] [facility] [address] [id number] [place] [address]- 2228 Aug, [facility] [place] [facility] [address] [id number] [place] [address]- 6077 Aug, [facility] [place] [facility] [address] [id number] [place] [address]- 9711 Aug, [facility] [place] [facility] [address] [id number] [place] [address]- 0431 Aug, [facility] [place] [facility] [address] [id number] [place] [address]- 8067 Aug, [facility] [place] [facility] [address] [id number] [place] [address]- 6681 Aug, [facility] [place] [facility] [address] [id number] [place] [address]- 7322 Aug, [facility] [place] [facility] [address] [id number] [place] [address]- 0712 Aug, [facility] [place] [facility] [address] [id number] [place] [address]- 0961 Aug, [facility] [place] [facility] [address] [id number] [place] [address]- 8106 Aug, [facility] [place] [facility] [address] [id number] [place] [address]- 0564 Aug, [facility] [place] [facility] [address] [id number] [place] [address]- 3106 Aug, [facility] [place] [facility] [address] [id number] [place] [address]- 6095 Aug, [facility] [place] [facility] [address] [id number], [place] [address]- 9602 Aug, [facility] [place] [facility] [address] [id number] [place] [address]- 9475 Aug, [facility] [place] [facility] [address] [id number] [place] [address]- 3267 July, [facility] [place] [facility] [address] [id number] [place] [address]- 0719 July, [facility] [place] [facility] [address] [id number] [place] [address]- 0390 July, [facility] [address] [id number] [place] [address]- 2484 July, [facility] [address] [id number] [place] [address]- 1196 July, [facility] [address] [id number] [place] [address]- 8581 July, [facility] [address] [id number] [place] [address]- 4523 Jun, [facility] [address] [id number] [place] [address]- 2431 Jun, [facility] [address] [id number] [place] [address]- 9840 Jun, [facility] [address] [id number] [place] [address]- 0291 Jun, [facility] [address] [id number] [place] [address]- 0605 Jun, [facility] [address] [id number] [place] [address]- 0303 Jun, [facility] [address] [id number] [place] [address]- 3353 Jun, [facility] [place] [facility] [address] [id number] [place] [address]- 0167 Jun, [facility] [address] [id number] [place] [address]- 9048 Jun, [facility] [place] [facility] [address] [id number] [place] [address]- 7262 Jun, [facility] [place] [facility] [address] [id number] [place] [address]- 2421 Jun, [facility] [place] [facility] [address] [id number] [place] [address]- 9086 Jun, [facility] [place] [facility] [address] [id number] [place] [address]- 7286 Jun, [facility] [place] [facility] [address] [id number] [place] [address]- 2163 Jun, [facility] [place] [facility] [address] [id number] [place] [address]- 7844 Jun, [facility] [place] [facility] [address] [id number] [place] [address]- 6852 May, [facility] [place] [facility] [address] [id number] [place] [address]- 9628 May, [facility] [place] [facility] [address] [id number] [place] [address]- 2686 May, [facility] [place] [facility] [address] [id number] [place] [address]- 9444 May, [facility] [place] [facility] [address] [id number] [place] [address]- 3814 May, [facility] [place] [facility] [address] [id number] [place] [address]- 1121 May, [facility] [place] [facility] [address] [id number] [place] [address]- 1439 May, [facility] [place] [facility] [address] [id number] [place] [address]- 5884 May, [facility] [place] [facility] [address] [id number] [place] [address]- 9708 May, [facility] [place] [facility] [address] [id number] [place] [address]- 8769 May, [facility] [place] [facility] [address] [id number] [place] [address]- 4375 May, [facility] [place] [facility] [address] [id number] [place] [address]- 5572 May, [facility] [place] [facility] [address] [id number] [place] [address]- 5415 May, [facility] [place] [facility] [address] [id number] [place] [address]- 3795 May, [facility] [place] [facility] [address] [id number] [place] [address]- 1176 May, [facility] [place] [facility] [address] [id number] [place] [address]- 3246 May, [facility] [place] [facility] [address] [id number] [place] [address]- 4247 May, [facility] [place] [facility] [address] [id number] [place] [address]- 7502 Apr, [facility] [place] [facility] [address] [id number] [place] [address]- 7440 Apr, [facility] [place] [facility] [address] [id number] [place] [address]- 3074 Apr, [facility] [place] [facility] [address] [id number] [place] [address]- 0239 Apr, [facility] [place] [facility] [address] [id number] [place] [address]- 4270 Apr, [facility] [place] [facility] [address] [id number] [place] [address]- 6093 Apr, [facility] [place] [facility] [address] [id number] [place] [address]- 3351 Apr, [facility] [place] [facility] [address] [id number] [place] [address]- 2060 Apr, [facility] [place] [facility] [address] [id number] [place] [address]- 5818 Apr, [facility] [place] [facility] [address] [id number] [place] [address]- 3827 Apr, [facility] [place] [facility] [address] [id number] [place] [address]- 7845 Apr, [facility] [place] [facility] [address] [id number] [place] [address]- 2713 Apr, [facility] [place] [facility] [address] [id number] [place] [address]- 1686 Apr, [facility] [place] [facility] [address] [id number] [place] [address]- 5271 Apr, [facility] [place] [facility] [address] [id number] [place] [address]- 6333 Apr, [facility] [place] [facility] [address] [id number] [place] [address]- 9504 Apr, [facility] [place] [facility] [address] [id number] [place] [address]- 7412 Mar, [facility] [place] [facility] [address] [id number] [place] [address]- 4330 30 Mar, 2013 [facility] [place] [facility] [address] [id number] [place] [address]- 5935 30 Mar, 2013 [facility] [place] [facility] [address] [id number] [place] [address]- 9445 30 Mar, 2013 [facility] [place] [facility] [address] [id number] [place] [address]- 8169 18 Mar, 2013 [facility] [place] [facility] [address] [id number] [place] [address]- 5202 18 Mar, 2013 [facility] [place] [facility] [address] [id number] [place] [address]- 2805 18 Mar, 2013 [facility] [place] [facility] [address] [id number] [place] [address]- 1905 18 Mar, 2013 [facility] [place] [facility] [address] [id number] [place] [address]- 0868 17 Mar, 2013 [facility] [place] [facility] [address] [id number] [place] [address]- 9950 17 Mar, 2013 [facility] [place] [facility] [address] [id number], [place] [address]- 4256 05 Mar, 2013 [facility] [place] [facility] [address] [id number] [place] [address]- 8759 Mar, [facility] [place] [facility] [address] [id number] [place] [address]- 8819 Mar, [facility] [place] [facility] [address] [facility] [id number] [place] [address]- 8433 Mar, [facility] [place] [facility] [address] [id number], [place] [address]- 3131 Mar, [facility] [place] [facility] [address] [id number] [place] 1887 Mar, [facility] [place] [facility] [address] [id number] [place] 2066 Mar, [facility] [place] [facility] [address] [id number] [place] [address]- 7349 Mar, [facility] [place] [facility] [address] [id number], [place] [address]- 6235 Jan, [facility] [place] [facility] [address] [id number], [place] [address]- 3667 Jan, [facility] [place] [facility] [address] [id number], [place] [address]- [address] Jan, [facility] [place] [facility] [address] [id number], [place] [address] Jan, [facility] [place] [facility] [address] [id number], [place] [address] Nov, 2012 [facility] [place] [facility] [address] [id number], [place] [address] 10 Nov, 2012 [facility] [place] [facility] [address] [id number], [place] [address] Nov, [facility] [place] [facility] [address] [id number], [place] [address] Nov, [facility] [place] [facility] [address] [id number] [place] [address] Oct, [facility] [address] [id number] [place] [address] Oct, [facility] [place] [facility] [address] [id number] [place] [address] Oct, [facility] [address] [id number] [place] [address] Oct, [facility] [place] [facility] [address] [id number] [place] [address] Sep, [facility] [address] [id number] [place] [address] Sep, [facility] [address] [id number] [place] [address] Sep, [facility] [address] [id number] [place] [address] Sep, [facility] [address] [id number] [place] [address] Sep, [facility] [place] [facility] [address] [id number] [place] [address] Sep, [facility] [address] [id number] [place] [address] Sep, [facility] [place] [facility] [address] [id number] [place] [address] Sep, [facility] [place] [facility] [address] [id number] [place] [address] Sep, [facility] [place] [facility] [address] [id number] [place] [address] Aug, [facility] [place] [facility] [address] [id number] [place] [address] Aug, [facility] [place] [facility] [address] [id number] [place] [address] Aug, [facility] [address] [id number] [place] [address] Aug, [facility] [address] [id number] [place] [address] July, [facility] [address] [id number] [place] [address] July, [facility] [place] [facility] [address] [id number] [place] [address] July, [facility] [address] [id number] [place] [address] July, [facility] [address] [id number] [place] [address] July, [facility] [address] [id number] [place] [address] July, [facility] [address] [id number] [place] [address] July, [facility] [address] [id number] [place] [address] Jun, [facility] [place] [facility] [address] [id number] [place] [address] May, [facility] [place] [facility] [address] [id number] [place] [address] May, [facility] [place] [facility] [address] [id number] [place] [address] May, [facility] [place] [facility] [address] [id number] [place] [address] May, [facility] [place] [facility] [address] [id number] [place] [address] May, [facility] [place] [facility] [address] [id number] [place] [address] May, [facility] [place] [facility] [address] [id number] [place] [address] May, [facility] [address] [facility] [id number] [place] [address] May, IMMUNIZATIONS No Known Immunizations SOCIAL HISTORY Never Assessed REASON FOR VISIT continued symptoms/ PLAN OF CARE VITAL SIGNS MEDICATIONS Medication Instructions Dosage Frequency Start Date End Date Duration Status Amoxicillin 500 mg Orally every 8 hrs 1 capsule 8h Dec, Dec, 10 day(s) Active PredniSONE 20 mg Orally Once a day 2 tablets 24h Dec, Dec, 5 days Active RESULTS No Results PROCEDURES No [...]
--- OUTSIDE RECORDS SUMMARY | 2018-03-12 21:20 | XMS REPORT ---
Author Author MCKENNA HEBERT Organization [facility] Address [address] [place] [address] Care Team Providers Care Overedger Name Role Phone MCKENNA HEBERT Unavailable PROBLEMS Type Condition ICD9-CM Code IRJ08-NX Code Onset Dates Condition Status SNOMED Code Problem Intra-dialytic hypotension I95.3 Active 249189099 Problem Seasonal allergic rhinitis due to other allergic trigger J30.89 Active 847929068 Problem Chronic congestive heart failure, unspecified congestive heart failure type I50.9 Active 33898652 Problem Self-care deficit for toileting R46.0 Active 267506265 Problem Primary insomnia F51.01 Active 5156782 Problem Angina pectoris I20.9 Active 613004494 Problem Chronic congestive heart failure, unspecified heart failure type I50.9 Active 78182146 Problem 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 Active 2197891 Problem Other chronic pain G89.29 Active 05228267 Problem Diabetes type 2, controlled E11.9 Active 30631147 Problem Renal failure N19 Active 16629998 Problem Neuropathy G62.9 Active 802083813 Problem Cellulitis of right lower extremity L03.115 Active 315754771 Problem Amput below knee, unilat S88.119A Active 09650919 ALLERGIES No Information ENCOUNTERS Encounter Location Date Diagnosis [facility] [id number] [address] Dec, [facility] [id number], [place] [address] 26 Nov, 2017 Pneumonia due to infectious organism, unspecified laterality , unspecified part of lung J18.9 and Self-care deficit for toileting R46.0 [facility] [address] [id number], [place] [address] Nov, [facility] [id number] [place] [address] 00090- 2702 16 Oct, 2017 Diabetes type 2, controlled E11.9 ; Primary insomnia F51.01 and Bilateral headaches R51 [facility] [id number] [place] [address] 41568- 8314 Oct, [facility] [id number] [place] [address] 26490- 4972 Sep, [facility] [id number] [place] [address] [id number] Sep, Dental examination Z01.20 and Dental caries K02.9 [facility] [id number] [place] [address] 58424- 4751 Sep, [facility] [id number] [place] [address] 76205- 6032 Sep, [facility] [id number] [place] [address] 88996- 0250 Sep, Other chronic pain G89.29 and Pain in right knee M25.561 [facility] [id number] [place] [address] 35701- 5044 Sep, [facility] [id number] [place] [address] 82961- 1534 Aug, [facility] [id number] [place] [address] 46774- 1410 Aug, 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 [facility] [id number] [place] [address] 21024- 5352 Aug, [facility] [id number] [place] [address] 72299- 7722 Aug, Diabetes type 2, controlled E11.9 and Acute pain of right knee M25.561 [facility] [id number] [place] [address] 36223- 0888 09 Aug, 2017 [facility] [id number] [place] [address] 46662- 4408 July, [facility] [address], [place] [address]- 3999 Jun, [facility] [address], [place] [address]- 4563 Jun, [facility] [address], [place] [address] 4939 Jun, Diabetes type 2, controlled E11.9 [facility] [id number] [place] [address] 69647- 9306 Jun, [facility] [id number] [place] [address] 23896- 5615 May, [facility] [address], [place] [address]- 9207 May, [facility] [id number] [place] [address] 33650- 5749 May, [facility] [address], [place] [address]- 1340 May, Chronic congestive heart failure, unspecified congestive heart failure type I50.9 [facility] [address], [place] [address]- 4435 May, Diabetes type 2, controlled E11.9 ; BMI 50.0-59.9, adult Z68.43 ; Chronic congestive heart failure, unspecified heart failure type I50.9 ; Angina pectoris I20.9 ; Seasonal allergic rhinitis due to other allergic trigger J30.89 and Renal failure N19 [facility] [id number] [address] May, [facility] [address] [address] May, [facility] [address], [place] [address]- 5640 May, [facility] [address], [place] [address]- 2645 May, [facility] [id number] [place] [address] 16426- 6909 May, [facility] [id number] [place] [address] 17900- 3865 Apr, BMI 50.0-59.9, adult Z68.43 [facility] [address] 9[address]- 4889 Apr, BMI 50.0-59.9, adult Z68.43 ; Post-procedural fever R50.82 and Bronchitis J40 [facility] [address] 11966- 0007 Apr, Chronic congestive heart failure, unspecified congestive heart failure type I50.9 [facility] [id number] [place] [address] 75778- 2467 Jan, [facility] [address] 60380- 6667 Jan, Diabetes type 2, controlled E11.9 [facility] [id number] [place] [address] 87679- 5639 Jan, Neuropathy G62.9 [facility] [id number] [place] [address] 70550- 6981 Jan, [facility] [id number] [place] [address] 35989- 9718 Jan, [facility] [id number] [place] [address] 96815- 3289 Jan, [facility] [id number] [place] [address] 24599- 2654 Jan, [facility] [id number] [place] [address] 84264- 7828 Jan, [facility] [id number] [place] [address] 29009- 2628 Dec, [facility] [address] [facility] [id number] [address]- 7254 Dec, [facility] [address], [place] [address]- 3633 Dec, Diabetes type 2, controlled E11.9 [facility] [id number], [place] [address]- 5126 Dec, [facility] [address], [place] [address]- 2819 Dec, [facility] [id number], [place] [address]- 4251 Dec, Chronic congestive heart failure, unspecified congestive heart failure type I50.9 [facility] [address], [place] [address]- 4891 Dec, [facility] [address], [place] [address]- 8859 Dec, [facility] [address], [place] [address]- 8857 Nov, Chronic congestive heart failure, unspecified congestive heart failure type I50.9 [facility] [address], [place] [address]- 9585 Nov, Chronic congestive heart failure, unspecified congestive heart failure type I50.9 [facility] [address], [place] [address]- 7034 Nov, [facility] [id number], [place] [address]- 8337 Oct, [facility] [address], [place] [address]- 3916 Oct, [facility] [address], [place] [address]- 7185 Oct, Chronic congestive heart failure, unspecified congestive heart failure type I50.9 [facility] [address], [place] [address]- 9575 Oct, [facility] [address] [facility] [id number], [place] [address]- 5556 Oct, Pneumonia of both lungs due to infectious organism, unspecified part of lung J18.9 [facility] [address] [facility] [id number], [place] [address] 2546 Oct, [facility] [id number] [place] [address] 47435 2546 Oct, Diabetes type 2, controlled E11.9 [facility] [address] [facility] [id number], [place] [address] 2541 Oct, Diabetes type 2, controlled E11.9 [facility] [id number] [place] [address] 07766- 0976 Sep, [facility] [id number] [place] [address] 48474- 0853 Sep, Neuropathy G62.9 [facility] [id number], [place] [address]- 1000 Aug, Intra-dialytic hypotension I95.3 [facility] [address], [place] [address]- 1246 July, [facility] [address], [place] [address]- 4736 July, [facility] [address], [place] [address]- 2186 July, [facility] [id number], [place] [address] 2540 July, Amput below knee, unilat S88.119A [facility] [address], [place] [address]- 2136 May, [facility] [id number], [place] [address] 2546 May, Neuropathy G62.9 [facility] [id number] [place] [address]- 8106 May, [facility] [address] [id number] [place] [address]- 3642 May, [facility] [address] [id number] [place] [address]- 8123 May, [facility] [id number] [address]- 6471 May, [facility] [id number] [place] [address]- 7541 May, Neuropathy G62.9 [facility] [id number] [place] [address]- 9958 Apr, [facility] [id number] [place] [address]- 1115 Apr, [facility] [id number] [place] [address]- 6559 Apr, Diabetes type 2, controlled E11.9 and Renal failure N19 [facility] [id number] [place] [address] -8761 Apr, [facility] [id number] [place] [address]- 6968 Apr, [facility] [id number] [place] [address]- 7885 Mar, [facility] [id number] [place] [address]- 3034 Mar, [facility] [id number] [place] [address]- 4733 Mar, [facility] [id number] [place] [address]- 8142 Mar, [facility] [id number] [place] [address]- 2014 Mar, [facility] [id number], [place] [address]- 2142 Jan, Localized edema R60.0 [facility] [id number] [place] [address] 98787- 7409 Jan, [facility] [id number] [place] [address] 45026- 2216 Jan, [facility] [id number] [place] [address] 11831- 6951 Jan, [facility] [id number] [place] [address] 45257- 5662 Jan, [facility] [id number] [place] [address] 23237- 4256 Jan, [facility] [id number] [place] [address] 20632- 6646 Jan, [facility] [id number] [place] [address] 24845- 1924 Dec, Diabetes type 2, controlled E11.9 and Chronic nonintractable headache, unspecified headache type R51 [facility] [id number] [place] [address] 06534- 8542 Dec, [facility] [id number] [place] [address] 73090- 3382 Dec, [facility] [id number] [place] [address] 16554- 7609 Nov, [facility] [id number] [place] [address] 49460- 9279 Nov, [facility] [id number] [place] [address] 47382- 0451 Oct, [facility] [address], [place] [address]- 2889 Oct, Migraine without status migrainosus, not intractable, unspecified migraine type G43.909 [facility] [id number] [place] [address]- 7306 Oct, [facility] [address] [facility] [id number] [place] [address] 2546 Sep, Amput below knee, unilat S88.119A and Neuropathy G62.9 [facility] [address] [facility] [id number] [place] [address] 2546 Sep, [facility] [address] [facility] [id number] [place] [address], [place] [address] 2546 Sep, [facility] [address] [facility] [id number] [place] [address] 2546 Sep, [facility] [address] [facility] [id number] [place] [address], [place] [address]- 5896 Aug, [facility] [id number] [place] [address]- 0236 Aug, [facility] [id number], [place] [address]- 4722 Aug, Diabetes type 2, controlled E11.9 [facility] [id number] [address] 2546 Aug, [facility] [id number] [place] [address] 2546 Jun, Diabetes type 2, controlled E11.9 and Neuropathy G62.9 [facility] [address] [facility] [id number], [place] [address] 2546 Jun, [facility] [address] [facility] [id number], [place] [address] 2546 Jun, [facility] [id number], [place] [address] 2546 Jun, [facility] [address] [facility] [id number], [place] [address] 2546 Jun, [facility] [id number], [place] [address]- 2154 May, [facility] [address] [facility] [id number], [place] [address]- 5260 May, Diabetes type 2, controlled E11.9 [facility] [address] [facility] [id number], [place] [address]- 1579 May, [facility] [address] [facility] [id number] [place] [address]- 4399 May, [facility] [address] [facility] [id number], [place] [address]- 5083 May, [facility] [address] [facility] [id number] [place] [address] 88416- 9932 May, [facility] [id number] [place] [address] 36316- 3245 May, [facility] [id number] [place] [address] 76462- 1404 16 May, 2015 [facility] [address] [facility] [id number], [place] [address]- 0006 May, [facility] [id number] [place] [address] 10682- 6796 May, COPD (chronic obstructive pulmonary disease) J44.9 [facility] [address], [place] [address]- 5981 15 May, 2015 [facility] [address], [place] [address]- 5509 May, [facility] [address] [facility] [id number], [place] [address]- 6294 May, [facility] [address] [facility] [id number], [place] [address]- 7040 May, [facility] [id number], [place] [address]- 7019 05 May, 2015 [facility] [address], [place] [address]- 3967 May, Renal failure N19 and Pneumonia, organism unspecified, unspecified laterality, unspecified part of lung J18.9 [facility] [id number] [address]- 0354 Apr, [facility] [id number] [place] [address]- 7371 Apr, [facility] [address], [place] [address]- 7356 Apr, [facility] [id number] [address]- 3024 Apr, Diabetes mellitus 250.00 [facility] [id number] [place] [address]- 0223 Apr, [facility] [address], [place] [address]- 7841 Apr, [facility] [address], [place] [address]- 4386 Apr, [facility] [id number] [place] [address]- 1451 Apr, [facility] [id number] [place] [address]- 6856 Mar, [facility] [address], [place] [address]- 3686 Mar, [facility] [id number], [place] [address]- 7098 Mar, [facility] [id number], [place] [address]- 6215 16 Mar, 2015 Renal failure N19 [facility] [address], [place] [address]- 0441 14 Mar, 2015 [facility] [id number] 0987 Mar, [facility] [address] [id number] [place] [address]- 4670 Mar, [facility] [place] [facility] [address] [id number] [place] [address]- 0529 Jan, [facility] [place] [facility] [address] [id number] [place] [address]- 9822 Jan, [facility] [place] [facility] [id number] [place] [address], [place] [address]- 6418 Jan, [facility] [place] [facility] [address] [id number] [place] [address]- 3368 Jan, [facility] [place] [facility] [id number] [place] [address], [place] [address]- 9446 Dec, [facility] [place] [facility] [address] [facility] [id number] [place] [address]- 9847 Dec, [facility] [place] [facility] [address] [facility] [id number] [place] [address], [place] [address]- 3682 Dec, [facility] [place] [facility] [address] [facility] [id number] [place] [address]- 5907 Nov, [facility] [place] [facility] [id number] [place] [address]- 6067 Nov, [facility] [place] [facility] [id number] [place] [address]- 7311 Nov, [facility] [place] [facility] [address] [id number], [place] [address]- 6321 Oct, [facility] [place] [facility] [address] [id number] [place] [address]- 9341 Oct, [facility] [place] [facility] [address] [facility] [id number] [place] [address]- 6851 Oct, Renal failure 586 and Obesity 278.00 [facility] [place] [facility] [address] [id number] [place] [address]- 0736 Oct, [facility] [place] [facility] [address] [facility] [id number] [place] [address]- 4995 Oct, [facility] [address] [id number] [place] [address]- 0569 Oct, [facility] [address] [facility] [id number] [place] [address]- 1016 Sep, [facility] [id number] [address]- 1244 Sep, [facility] [id number] [address]- 3110 Sep, Diabetes mellitus 250.00 and Congestive heart failure, unspecified 428.0 [facility] [id number] [address]- 0786 Aug, [facility] [id number] [place] [address]- 9438 Aug, [facility] [address], [place] [address]- 0357 Aug, [facility] [address] [id number] [place] [address] July, [facility] [id number] [address] July, [facility] [id number] [place] [address] July, Heart murmur, systolic 785.2 [facility] [address] [id number] [place] [address] July, [facility] [address] [id number] [place] [address] July, [facility] [address] [id number] [place] [address] Jun, [facility] [address] [id number] [place] [address] Jun, [facility] [place] [facility] [address] [id number] [place] [address] May, [facility] [place] [facility] [address] [id number] [place] [address] May, [facility] [place] [facility] [address] [id number] [place] [address] May, [facility] [place] [facility] [address] [id number] [place] [address] May, 2014 [facility] [place] [facility] [address] [id number] [place] [address] May, [facility] [place] [facility] [address] [id number] [place] [address] 16 May, 2014 [facility] [place] [facility] [address] [id number] [place] [address] May, [facility] [place] [facility] [address] [id number] [place] [address] May, 2014 [facility] [place] [facility] [address] [id number] [place] [address] May, [facility] [place] [facility] [address] [id number] [place] [address] May, [facility] [place] [facility] [address] [id number] [place] [address] May, 2014 [facility] [place] [facility] [address] [id number] [place] [address] May, 2014 [facility] [place] [facility] [address] [id number] [place] [address] May, 2014 [facility] [place] [facility] [address] [id number] [place] [address] May, 2014 [facility] [place] [facility] [address] [id number] [place] [address] 18 May, 2014 [facility] [place] [facility] [address] [id number] [place] [address] 18 May, 2014 [facility] [place] [facility] [address] [id number] [place] [address] 18 May, 2014 [facility] [place] [facility] [address] [id number] [place] [address] 18 May, 2014 [facility] [place] [facility] [address] [id number] [place] [address] 18 May, 2014 [facility] [place] [facility] [address] [id number] [place] [address] 18 May, 2014 [facility] [place] [facility] [address] [id number] [place] [address]60 16 May, 2014 [facility] [place] [facility] [address] [id number] [place] [address] 6001 16 May, 2014 [facility] [place] [facility] [address] [facility] [id number] [place] [address] 2234 May, 2014 [facility] [place] [facility] [address] [id number] [place] [address] 7976 May, 2014 [facility] [place] [facility] [address] [facility] [id number] [place] [address] 6121 02 May, 2014 [facility] [place] [facility] [address] [facility] [id number] [place] [address]- 8112 02 May, 2014 [facility] [place] [facility] [address] [facility] [id number] [place] [address]- 2337 Apr, [facility] [place] [facility] [address] [id number] [place] [address] 8008 Apr, [facility] [place] [facility] [address] [id number] [place] [address] 7172 14 Apr, 2014 [facility] [place] [facility] [address] [facility] [id number] [place] [address]- 0517 Apr, [facility] [place] [facility] [address] [facility] [id number], [place] [address] 6[address] Apr, [facility] [place] [facility] [address] [id number] [place] [address] 1904 Apr, [facility] [place] [facility] [address] [id number] [place] [address]- 5449 Apr, [facility] [place] [facility] [address] [id number] [place] [address]- 2781 Apr, [facility] [place] [facility] [address] [id number] [place] [address] 9746 Mar, [facility] [place] [facility] [address] [id number] [place] [address]- 1473 Mar, [facility] [place] [facility] [address] [id number] [place] [address]- 7398 Mar, [facility] [place] [facility] [address] [id number] [place] [address]- 5662 Mar, [facility] [place] [facility] [address] [id number] [place] [address]- 2080 Mar, [facility] [place] [facility] [address] [id number] [place] [address]- 0934 Mar, [facility] [place] [facility] [address] [id number] [place] [address]- 7009 Mar, [facility] [place] [facility] [address] [id number] [place] [address]- 5843 Mar, [facility] [place] [facility] [address] [id number] [place] [address]- 8161 Mar, [facility] [place] [facility] [address] [id number] [place] [address]- 1801 Mar, [facility] [place] [facility] [address] [id number] [place] [address]- 7909 Mar, [facility] [place] [facility] [address] [id number] [place] [address] Mar, [facility] [place] [facility] [address] [id number] [place] [address]- 3697 Mar, [facility] [place] [facility] [address] [id number] [place] [address]- 0192 Mar, [facility] [place] [facility] [address] [id number] [place] [address]- 1026 Mar, [facility] [place] [facility] [address] [id number] [place] [address]- 1766 Mar, [facility] [place] [facility] [address] [id number] [place] [address]- 4565 Mar, [facility] [place] [facility] [address] [id number] [place] [address]- 8986 Mar, [facility] [place] [facility] [address] [id number] [place] [address]- 7086 Mar, [facility] [place] [facility] [address] [id number] [place] [address]- 7390 Mar, [facility] [place] [facility] [address] [id number] [place] [address]- 9959 Mar, [facility] [place] [facility] [address] [id number] [place] [address] 1935 Mar, [facility] [place] [facility] [address] [id number] [place] [address]- 4975 Jan, [facility] [place] [facility] [address] [id number] [place] [address]- 0324 Jan, [facility] [place] [facility] [address] [id number] [place] [address]- 0218 Jan, [facility] [place] [facility] [address] [id number] [place] [address]- 7183 Jan, [facility] [place] [facility] [address] [id number] [place] [address]- 9508 Jan, [facility] [place] [facility] [address] [id number] [place] [address]- 9854 Jan, [facility] [place] [facility] [address] [id number] [place] [address]- 9778 Jan, [facility] [place] [facility] [address] [id number] [place] [address]- 8817 Jan, [facility] [place] [facility] [address] [id number] [place] [address]- 1188 Jan, [facility] [place] [facility] [address] [id number] [place] [address]- 2063 Jan, [facility] [place] [facility] [address] [id number] [place] [address]- 3005 Jan, [facility] [place] [facility] [address] [id number] [place] [address]- 0524 Jan, [facility] [place] [facility] [address] [id number] [place] [address]- 7522 Jan, [facility] [place] [facility] [address] [id number] [place] [address]- 7573 Jan, [facility] [place] [facility] [address] [id number] [place] [address]- 8213 Jan, [facility] [place] [facility] [address] [id number] [place] [address]- 2489 Jan, [facility] [place] [facility] [address] [id number] [place] [address]- 3651 Jan, [facility] [place] [facility] [address] [id number] [place] [address]- 7298 Jan, [facility] [place] [facility] [address] [id number] [place] [address]- 2259 Jan, [facility] [place] [facility] [address] [id number] [place] [address]- 9893 Jan, [facility] [place] [facility] [address] [id number] [place] [address]- 9151 Dec, [facility] [place] [facility] [address] [id number] [place] [address]- 4675 Dec, [facility] [place] [facility] [address] [id number] [place] [address]- 9249 Dec, [facility] [place] [facility] [address] [id number] [place] [address]- 8242 Dec, [facility] [place] [facility] [address] [id number] [place] [address]- 9030 Dec, [facility] [place] [facility] [address] [id number] [place] [address]- 1406 Dec, [facility] [place] [facility] [address] [id number] [place] [address]- 3038 Dec, [facility] [place] [facility] [address] [id number] [place] [address]- 9083 Dec, [facility] [place] [facility] [address] [id number] [place] [address]- 4446 Dec, [facility] [place] [facility] [address] [id number] [place] [address]- 4236 Dec, [facility] [place] [facility] [address] [id number] [place] [address]- 5825 Dec, [facility] [place] [facility] [address] [id number], [place] [address]- 7947 Dec, [facility] [place] [facility] [address] [id number], [place] [address]- 6776 Dec, [facility] [place] [facility] [address] [id number], [place] [address]- 9818 Dec, [facility] [place] [facility] [address] [id number] [place] [address]- 5183 Dec, [facility] [place] [facility] [address] [id number], [place] [address]- 7593 Nov, [facility] [place] [facility] [address] [id number] [place] [address]- 1103 Nov, [facility] [place] [facility] [address] [id number] [place] [address]- 6405 19 Sep, 2013 [facility] [place] [facility] [address] [id number] [place] [address] 2546 19 Sep, 2013 [facility] [place] [facility] [address] [id number] [place] [address]- 8676 13 Nov, 2013 [facility] [place] [facility] [address] [id number] [place] [address] 2546 13 Nov, 2013 [facility] [place] [facility] [address] [id number] [place] [address] 2546 10 Nov, 2013 [facility] [place] [facility] [address] [id number] [place] [address]- 7015 10 Nov, 2013 [facility] [place] [facility] [address] [id number] [place] [address]- 7451 08 Nov, 2013 [facility] [place] [facility] [address] [id number] [place] [address]- 3330 05 Nov, 2013 [facility] [place] [facility] [address] [id number] [place] [address]- 6666 05 Nov, 2013 [facility] [place] [facility] [address] [id number] [place] [address]- 1460 03 Nov, 2013 [facility] [place] [facility] [address] [id number] [place] [address]- 6639 Nov, 2013 [facility] [place] [facility] [address] [id number] [place] [address]- 2268 Oct, 2013 [facility] [place] [facility] [address] [id number] [place] [address]- 2544 Oct, 2013 [facility] [place] [facility] [address] [id number] [place] [address]- 0285 Oct, [facility] [place] [facility] [address] [id number] [place] [address]- 3497 Oct, [facility] [place] [facility] [address] [id number] [place] [address]- 4685 Oct, [facility] [place] [facility] [address] [id number] [place] [address]- 8768 Sep, 2013 [facility] [place] [facility] [address] [id number] [place] [address]- 9405 Sep, 2013 [facility] [place] [facility] [address] [id number] [place] [address]- 5956 Sep, 2013 [facility] [place] [facility] [address] [id number] [place] [address]- 4902 Sep, 2013 [facility] [place] [facility] [address] [id number] [place] [address]- 1225 Aug, [facility] [place] [facility] [address] [id number] [place] [address]- 9083 Aug, [facility] [place] [facility] [address] [id number] [place] [address]- 9484 Aug, [facility] [place] [facility] [address] [id number] [place] [address]- 0672 Aug, [facility] [place] [facility] [address] [id number] [place] [address]- 2377 Aug, [facility] [place] [facility] [address] [id number] [place] [address]- 5742 Aug, [facility] [place] [facility] [address] [id number] [place] [address]- 2818 Aug, [facility] [place] [facility] [address] [id number] [place] [address]- 7646 Aug, [facility] [place] [facility] [address] [id number] [place] [address]- 8167 Aug, [facility] [place] [facility] [address] [id number] [place] [address]- 7482 Aug, [facility] [place] [facility] [address] [id number] [place] [address]- 5101 Aug, [facility] [place] [facility] [address] [id number] [place] [address]- 2752 Aug, [facility] [place] [facility] [address] [id number] [place] [address]- 8031 Aug, [facility] [place] [facility] [address] [id number] [place] [address]- 6972 Aug, [facility] [place] [facility] [address] [id number] [place] [address]- 9551 Aug, [facility] [place] [facility] [address] [id number] [place] [address]- 1921 Aug, [facility] [place] [facility] [address] [id number] [place] [address]- 4425 Aug, [facility] [place] [facility] [address] [id number] [place] [address]- 0202 Aug, [facility] [place] [facility] [address] [id number] [place] [address]- 7338 Aug, [facility] [place] [facility] [address] [id number] [place] [address]- 8427 Aug, [facility] [place] [facility] [address] [id number] [place] [address]- 8245 Aug, [facility] [place] [facility] [address] [id number] [place] [address]- 5297 Aug, [facility] [place] [facility] [address] [id number] [place] [address]- 6658 Aug, [facility] [place] [facility] [address] [id number] [place] [address]- 7611 Aug, [facility] [place] [facility] [address] [id number] [place] [address]- 4607 July, [facility] [place] [facility] [address] [id number] [place] [address]- 1031 July, [facility] [place] [facility] [address] [id number] [place] [address]- 6983 July, [facility] [place] [facility] [address] [id number] [place] [address]- 0918 July, [facility] [address] [id number] [place] [address]- 2679 July, [facility] [address] [id number] [place] [address]- 9124 July, [facility] [address] [id number] [place] [address]- 0945 Jun, [facility] [address] [id number] [place] [address]- 3567 Jun, [facility] [address] [id number] [place] [address]- 4870 Jun, [facility] [address] [id number] [place] [address]- 7059 Jun, [facility] [address] [id number] [place] [address]- 6872 Jun, [facility] [address] [id number] [place] [address]- 8838 Jun, [facility] [address] [id number] [place] [address]- 9276 Jun, [facility] [address] [id number] [place] [address]- 7903 Jun, [facility] [place] [facility] [address] [id number] [place] [address]- 6902 Jun, [facility] [place] [facility] [address] [id number] [place] [address]- 9530 Jun, [facility] [place] [facility] [address] [id number] [place] [address]- 3163 Jun, [facility] [place] [facility] [address] [id number] [place] [address]- 0873 Jun, [facility] [place] [facility] [address] [id number] [place] [address]- 7749 Jun, [facility] [place] [facility] [address] [id number] [place] [address]- 3325 Jun, [facility] [place] [facility] [address] [id number] [place] [address]- 9212 Jun, [facility] [place] [facility] [address] [id number] [place] [address]- 6081 May, [facility] [place] [facility] [address] [id number] [place] [address]- 8190 May, [facility] [place] [facility] [address] [id number] [place] [address]- 2470 May, [facility] [place] [facility] [address] [id number] [place] [address]- 3572 May, [facility] [place] [facility] [address] [id number] [place] [address]- 3822 May, [facility] [place] [facility] [address] [id number] [place] [address]- 4480 May, [facility] [place] [facility] [address] [id number] [place] [address]- 2061 May, [facility] [place] [facility] [address] [id number] [place] [address]- 8562 May, [facility] [place] [facility] [address] [id number] [place] [address]- 6323 May, [facility] [place] [facility] [address] [id number], [place] [address]- 6734 May, [facility] [place] [facility] [address] [id number] [place] [address]- 3037 May, [facility] [place] [facility] [address] [id number] [place] [address]- 9941 May, [facility] [place] [facility] [address] [id number] [place] [address]- 6565 May, [facility] [place] [facility] [address] [id number] [place] [address]- 9108 May, [facility] [place] [facility] [address] [id number] [place] [address]- 8558 May, [facility] [place] [facility] [address] [id number] [place] [address]- 1204 May, [facility] [place] [facility] [address] [id number] [place] [address]- 8860 May, [facility] [place] [facility] [address] [id number] [place] [address]- 4550 Apr, [facility] [place] [facility] [address] [id number] [place] [address]- 1996 Apr, [facility] [place] [facility] [address] [id number] [place] [address]- 4963 Apr, [facility] [place] [facility] [address] [id number] [place] [address]- 1916 Apr, [facility] [place] [facility] [address] [id number] [place] [address]- 7237 Apr, [facility] [place] [facility] [address] [id number] [place] [address]- 5630 Apr, [facility] [place] [facility] [address] [id number] [place] [address]- 9909 Apr, [facility] [place] [facility] [address] [id number] [place] [address]- 9272 Apr, [facility] [place] [facility] [address] [id number] [place] [address]- 3555 Apr, [facility] [place] [facility] [address] [id number] [place] [address]- 6519 Apr, [facility] [place] [facility] [address] [id number] [place] [address]- 3173 Apr, [facility] [place] [facility] [address] [id number] [place] [address]- 8706 Apr, [facility] [place] [facility] [address] [id number] [place] [address]- 1142 Apr, [facility] [place] [facility] [address] [id number] [place] [address]- 6165 Apr, [facility] [place] [facility] [address] [id number] [place] [address]- 8047 Apr, [facility] [place] [facility] [address] [id number] [place] [address]- 2196 Apr, [facility] [place] [facility] [address] [id number] [place] [address]- 5345 Mar, [facility] [place] [facility] [address] [id number] [place] [address]- 8813 Mar, [facility] [place] [facility] [address] [id number] [place] [address]- 7248 Mar, [facility] [place] [facility] [address] [id number] [place] [address]- 1849 Mar, [facility] [place] [facility] [address] [id number] [place] [address]- 2470 Mar, [facility] [place] [facility] [address] [id number] [place] [address]- 1606 Mar, [facility] [place] [facility] [address] [id number] [place] [address]- 7952 18 Mar, 2013 [facility] [place] [facility] [address] [id number] [place] [address]- 1987 18 Mar, 2013 [facility] [place] [facility] [address] [id number] [place] [address]- 7168 17 Mar, 2013 [facility] [place] [facility] [address] [id number] [place] [address]- 3772 17 Mar, 2013 [facility] [place] [facility] [address] [id number] [place] [address]- 6162 05 Mar, 2013 [facility] [place] [facility] [address] [id number], [place] [address]- 4946 Mar, [facility] [address] [id number] [place] [address]- 7243 Mar, [facility] [place] [facility] [address] [id number] [place] [address]- 1329 Mar, [facility] [place] [facility] [address] [id number] [place] [address]- 6974 Mar, [facility] [place] [facility] [address] [id number], [place] [address]- 4259 Mar, [facility] [place] [facility] [address] [id number] [place] [address] Mar, [facility] [place] [facility] [address] [id number] [place] [address] Mar, [facility] [address] [id number], [place] [address] Jan, [facility] [place] [address] [id number], [place] [address] Jan, [facility] [address] [id number], [place] [address] Jan, [facility] [address] [id number], [place] [address] Jan, [facility] [address] [id number], [place] [address] Nov, [facility] [address] [id number], [place] [address] Nov, [facility] [address] [id number], [place] [address] Nov, [facility] [address] [id number], [place] [address] Nov, [facility] [address] [id number], [place] [address] Oct, [facility] [address] [id number] [place] [address] Oct, [facility] [address] [id number] [place] [address] Oct, [facility] [address] [id number] [place] [address] Oct, [facility] [address] [id number] [place] [address] Sep, [facility] [address] [id number] [place] [address] Sep, [facility] [address] [id number] [place] [address] Sep, [facility] [address] [id number] [place] [address] Sep, [facility] [address] [id number] [place] [address] Sep, [facility] [address] [id number] [place] [address] Sep, [facility] [address] [id number] [place] [address] Sep, [facility] [address] [id number] [place] [address] Sep, [facility] [address] [id number] [place] [address] Sep, [facility] [address] [id number] [place] [address] Aug, [facility] [address] [id number] [place] [address] Aug, [facility] [address] [id number] [place] [address] Aug, [facility] [address] [id number] [place] [address] Aug, [facility] [address] [id number] [place] [address] July, [facility] [address] [id number] [place] [address] July, [facility] [address] [id number] [place] [address] July, [facility] [address] [id number] [place] [address] July, [facility] [address] [id number] [place] [address] July, [facility] [address] [id number] [place] [address] July, [facility] [address] [id number] [place] [address] July, [facility] [address] [id number] [place] [address] Jun, [facility] [address] [id number] [place] [address] May, [facility] [address] [id number] [place] [address] May, [facility] [address] [id number] [place] [address] May, [facility] [address] [id number] [place] [address]- [address] May, [facility] [address] [id number] [place] [address]- [address] May, [facility] [address] [id number] [place] [address] May, [facility] [address] [id number] [place] [address] May, [facility] [address] [facility] [id number] [place] [address] May, IMMUNIZATIONS No Known Immunizations SOCIAL HISTORY Never Assessed REASON FOR VISIT refill request PLAN OF CARE VITAL SIGNS [...]
--- OUTSIDE RECORDS SUMMARY | 2018-03-12 21:21 | XMS REPORT ---
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 Name Role Phone MCKENNA HEBERT Unavailable PROBLEMS Type Condition ICD9-CM Code HSK11-BM Code Onset Dates Condition Status SNOMED Code Problem Amput below knee, unilat S88.119A Active 23449656 Problem Chronic congestive heart failure, unspecified congestive heart failure type I50.9 Active 00441864 Problem Intra-dialytic hypotension I95.3 Active 216101013 Problem Cellulitis of right lower extremity L03.115 Active 886377581 Problem Diabetes type 2, controlled E11.9 Active 60152638 Problem Renal failure N19 Active 86394291 Problem Neuropathy G62.9 Active 663323734 Problem Primary insomnia F51.01 Active 4657271 Problem 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 Active 2092143 Problem Chronic congestive heart failure, unspecified heart failure type I50.9 Active 04618854 Problem Seasonal allergic rhinitis due to other allergic trigger J30.89 Active 838636984 Problem Other chronic pain G89.29 Active 74373891 Problem Angina pectoris I20.9 Active 052780462 ALLERGIES Substance Reaction Event Type Date Status Fluarix Unknown Drug Allergy Oct, Active All Tape Unknown Non Drug Allergy Oct, Active ENCOUNTERS Encounter Location Date Diagnosis [facility] [id number] [address] Nov, [facility] [address] [address] Oct, Diabetes type 2, controlled E11.9 ; Primary insomnia F51.01 and Bilateral headaches R51 [facility] [address] [id number] [address] 3974 Oct, [facility] [id number] [place] [address] 67528- 0418 Sep, [facility] [id number] [id number] Sep, Dental examination Z01.20 and Dental caries K02.9 [facility] [address] [facility] [id number] [place] [address] 10348- 9537 Sep, [facility] [id number] [place] [address] 89909- 2971 Sep, [facility] [id number] [place] [address] 49781- 6062 Sep, Other chronic pain G89.29 and Pain in right knee M25.561 [facility] [id number] [place] [address] 21459- 8376 Sep, [facility] [id number] [place] [address] 27104- 5374 Aug, [facility] [id number] [place] [address] 07185- 0619 Aug, 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 [facility] [id number] [place] [address] 72026- 4359 15 Aug, 2017 [facility] [id number] [place] [address] 94442- 0809 Aug, Diabetes type 2, controlled E11.9 and Acute pain of right knee M25.561 [facility] [id number] [place] [address] 45222- 5364 Aug, [facility] [id number] [place] [address] 83214- 7398 July, [facility] [id number] [place] [address] 78199- 4882 16 Jun, 2017 [facility] [id number] [place] [address] 71056- 5690 13 Jun, 2017 [facility] [id number] [place] [address] 92533- 3268 Jun, Diabetes type 2, controlled E11.9 [facility] [address] [address]- 9998 Jun, [facility] [address] 8[address] May, [facility] [address] [address]- 5690 May, [facility] [id number] [place] [address] 71547- 4331 May, [facility] [id number] [place] [address] 51993- 9429 May, Chronic congestive heart failure, unspecified congestive heart failure type I50.9 [facility] [address] [address] 4061 May, Diabetes type 2, controlled E11.9 ; BMI 50.0-59.9, adult Z68.43 ; Chronic congestive heart failure, unspecified heart failure type I50.9 ; Angina pectoris I20.9 ; Seasonal allergic rhinitis due to other allergic trigger J30.89 and Renal failure N19 [facility] [address] [id number] May, [facility] [address] [address]- 3202 May, [facility] [address] [address]- 9087 May, [facility] [address] [id number] [address]- 9661 May, [facility] [address] 27[address] May, [facility] [address] [id number] [address]- 1426 Apr, BMI 50.0-59.9, adult Z68.43 [facility] [address] [address]- 5526 Apr, BMI 50.0-59.9, adult Z68.43 ; Post-procedural fever R50.82 and Bronchitis J40 [facility] [address] [address]- 6860 Apr, Chronic congestive heart failure, unspecified congestive heart failure type I50.9 [facility] [id number] [place] [address] 50765- 7721 Jan, [facility] [id number] [place] [address] 45715- 8592 Jan, Diabetes type 2, controlled E11.9 [facility] [id number] [place] [address] 10264- 9163 Jan, Neuropathy G62.9 [facility] [id number] [place] [address] 61545- 1020 Jan, [facility] [id number] [place] [address] 51391- 1459 Jan, [facility] [id number] [place] [address] 13957- 8273 Jan, [facility] [id number] [place] [address] 33788- 0375 Jan, [facility] [id number] [place] [address] 36168- 8949 Jan, [facility] [id number] [place] [address] 77591- 6675 Dec, [facility] [id number] [place] [address] 46631- 1773 Dec, [facility] [id number] [address]- 8720 Dec, Diabetes type 2, controlled E11.9 [facility] [id number] [place] [address] 94171- 8210 Dec, [facility] [address] [facility] [id number] [address]- 5979 Dec, [facility] [address] [facility] [id number] [address]- 0004 Dec, Chronic congestive heart failure, unspecified congestive heart failure type I50.9 [facility] [address] [facility] [id number] [address]- 8321 Dec, [facility] [address] [facility] [id number] [address]- 9315 Dec, [facility] [address] [facility] [id number] [address]- 4623 Nov, Chronic congestive heart failure, unspecified congestive heart failure type I50.9 [facility] [address] [facility] [id number] [address]- 0274 Nov, Chronic congestive heart failure, unspecified congestive heart failure type I50.9 [facility] [address] [facility] [id number] [address]- 7397 Nov, [facility] [address] [facility] [id number] [address]- 7756 Oct, [facility] [address] [id number] [address]- 2032 Oct, [facility] [id number] [address]- 2221 Oct, Chronic congestive heart failure, unspecified congestive heart failure type I50.9 [facility] [address] [facility] [id number] [address]- 1580 Oct, [facility] [address] [facility] [id number] [address]- 5866 Oct, Pneumonia of both lungs due to infectious organism, unspecified part of lung J18.9 [facility] [address] [facility] [id number] [address]- 0409 Oct, [facility] [address] [address]- 9297 Oct, Diabetes type 2, controlled E11.9 [facility] [address] [address] 2546 Oct, Diabetes type 2, controlled E11.9 [facility] [address] [address]- 3006 Sep, [facility] [id number] [address] 2549 Sep, Neuropathy G62.9 [facility] [id number] [place] [address], [place] [address]- 1736 Aug, Intra-dialytic hypotension I95.3 [facility] [address] [place] [address]- 2146 July, [facility] [id number] [place] [address] 41360- 3383 July, [facility] [address] [place] [address]- 8696 July, [facility] [id number] 3385 July, Amput below knee, unilat S88.119A [facility] [address] [address]- 9806 May, [facility] [address] [address] 2546 May, Neuropathy G62.9 [facility] [address] [place] [address] 2546 May, [facility] [address] [address] 2546 May, [facility] [address] [address]- 0153 May, [facility] [address] [facility] [id number] [place] [address]- 4945 May, [facility] [id number] [place] [address], [place] [address]- 0332 May, Neuropathy G62.9 [facility] [address] [place] [address]- 9345 Apr, [facility] [id number] [place] [address], [place] [address]- 1806 Apr, [facility] [id number] [place] [address], [place] [address]- 5229 Apr, Diabetes type 2, controlled E11.9 and Renal failure N19 [facility] [address] [place] [address]5815 Apr, [facility] [id number] [place] [address], [place] [address]- 7962 Apr, [facility] [address] [place] [address]- 4660 Mar, [facility] [id number] [place] [address], [place] [address]- 8295 Mar, [facility] [address] [place] [address]- 9070 Mar, [facility] [id number] [place] [address], [place] [address]- 9585 Mar, [facility] [address] [place] [address]- 7101 Mar, [facility] [id number] [place] [address], [place] [address]- 8937 Jan, Localized edema R60.0 [facility] [address] [place] [address]- 6406 Jan, [facility] [id number] [place] [address], [place] [address]- 1582 Jan, [facility] [id number] [place] [address] 68396- 2566 Jan, [facility] [id number] [place] [address] 23466- 4371 Jan, [facility] [id number] [place] [address] 88608- 4055 Jan, [facility] [address] 97585- 0616 Jan, [facility] [id number] [place] [address] 75075- 6725 Dec, Diabetes type 2, controlled E11.9 and Chronic nonintractable headache, unspecified headache type R51 [facility] [id number] [place] [address] 38628- 2848 Dec, [facility] [address] 73647- 5753 Dec, [facility] [id number] [place] [address] 94680- 0585 Nov, [facility] [id number] [place] [address] 47039- 2034 Nov, [facility] [id number] [place] [address] 88989- 0556 Oct, [facility] [id number] [place] [address] 79633- 7355 Oct, Migraine without status migrainosus, not intractable, unspecified migraine type G43.909 [facility] [id number] [place] [address] 91204- 4968 Oct, [facility] [id number] [place] [address] 19232- 2037 Sep, Amput below knee, unilat S88.119A and Neuropathy G62.9 [facility] [id number] [place] [address] 09292- 3335 Sep, [facility] [address] [id number] [place] [address]- 3922 Sep, [facility] [address] [id number] [place] 4407 Sep, [facility] [address] [id number] [place] [address]- 2834 Aug, [facility] [address] [id number] [place] [address]- 6785 Aug, [facility] [address] [id number] [place] [address]- 0224 Aug, Diabetes type 2, controlled E11.9 [facility] [address] [id number] [place] [address]- 3427 Aug, [facility] [address] [facility] [id number] [place] [address]- 2468 Jun, Diabetes type 2, controlled E11.9 and Neuropathy G62.9 [facility] [address] [id number] [place] [address]- 7356 Jun, [facility] [address] [id number] [place] [address]- 9722 Jun, [facility] [address] [id number] [place] [address]- 9203 Jun, [facility] [address] [id number] [place] [address]- 4097 Jun, [facility] [address] [id number] [place] [address]- 6442 May, [facility] [address] [id number] [place] [address]- 5012 May, Diabetes type 2, controlled E11.9 [facility] [address] [id number] [place] [address]- 8445 May, [facility] [address] [address]- 3111 May, [facility] [address] [address]- 6753 May, [facility] [address] [address]- 8186 May, [facility] [address] [address]- 1052 May, [facility] [address] [address]- 1332 May, [facility] [address] [place] [address] 35705- 5646 May, [facility] [address] [address]- 3788 May, COPD (chronic obstructive pulmonary disease) J44.9 [facility] [address] [address]- 8506 May, [facility] [address] [address]- 2858 May, [facility] [address] [address]- 9113 May, [facility] [address] [address]- 4124 May, [facility] [address] [address]- 6699 May, [facility] [address] [address]- 7756 May, Renal failure N19 and Pneumonia, organism unspecified, unspecified laterality, unspecified part of lung J18.9 [facility] [address] [address]- 6373 Apr, [facility] [address] [place] [address]- 6956 Apr, [facility] [address] [id number] [place] [address]- 3268 Apr, [facility] [address] [facility] [id number] [place] 8439 Apr, Diabetes mellitus 250.00 [facility] [address] [id number] [place] [address]- 6838 14 Apr, 2015 [facility] [address] [facility] [id number] [place] [address]- 0214 14 Apr, 2015 [facility] [id number] [place] [address], [place] [address]- 1947 Apr, [facility] [address] [id number] [place] [address]- 1160 Apr, [facility] [id number] [place] [address], [place] [address]- 6884 31 Mar, 2015 [facility] [address] [facility] [id number] [place] [address]- 9445 28 Mar, 2015 [facility] [address] [place] [address]- 0537 23 Mar, 2015 [facility] [id number] [place] [address]- 3456 16 Mar, 2015 Renal failure N19 [facility] [address] [id number] [place] [address]- 9449 14 Mar, 2015 [facility] [address] [facility] [id number] [place] [address]- 8052 07 Mar, 2015 [facility] [id number] [place] [address]- 4981 04 Mar, 2015 [facility] [address] [facility] [id number] [place] [address]- 1177 24 Jan, 2015 [facility] [id number] [place] [address]- 8008 Jan, [facility] [place] [facility] [address] [facility] [id number] [place] [address]- 2267 Jan, [facility] [place] [facility] [address] [facility] [id number] [place] [address], [place] [address]- 2444 Jan, [facility] [place] [facility] [address] [place] [address]- 4824 Dec, [facility] [place] [facility] [address] [facility] [id number] [place] [address], [place] [address]- 9678 Dec, [facility] [place] [facility] [address] [facility] [id number] [place] [address], [place] [address]- 0305 Dec, [facility] [place] [facility] [address] [facility] [id number] [place] [address], [place] [address]- 6466 Nov, [facility] [place] [facility] [id number] [place] [address], [place] [address]- 4655 Nov, [facility] [place] [facility] [address] [facility] [id number] [place] [address] 98309- 6038 Nov, [facility] [place] [facility] [address] [place] [address]- 8038 Oct, [facility] [place] [facility] [address] [address]- 8043 Oct, [facility] [place] [facility] [address] [address]- 1659 Oct, Renal failure 586 and Obesity 278.00 [facility] [place] [facility] [address] [facility] [id number] [address]- 5313 Oct, [facility] [place] [facility] [id number] [address]- 3236 Oct, [facility] [place] [facility] [address] [facility] [id number] [place] [address]- 2613 Oct, [facility] [place] [facility] [id number] [address] Sep, [facility] [place] [facility] [address] [id number] [place] [address] Sep, [facility] [id number] [place] [address] Sep, Diabetes mellitus 250.00 and Congestive heart failure, unspecified 428.0 [facility] [address] [id number] [place] [address] Aug, [facility] [address] [id number] [place] [address] Aug, [facility] [address] [id number] [place] [address] Aug, [facility] [address] [id number] [place] [address] July, [facility] [id number] [place] [address] July, [facility] [id number] [place] [address] July, Heart murmur, systolic 785.2 [facility] [id number] [place] [address] July, [facility] [id number] [place] [address] July, [facility] [address] [id number] [place] [address] Jun, [facility] [address] [facility] [id number] [place] [address] Jun, [facility] [address] [id number] [place] [address] May, [facility] [address] [facility] [id number] [place] [address] May, [facility] [address] [id number] [place] [address] May, [facility] [place] [facility] [address] [id number] [place] [address] 18 May, 2014 [facility] [place] [facility] [address] [id number] [place] [address]- [address] 16 May, 2014 [facility] [place] [facility] [address] [id number] [place] [address] 16 May, 2014 [facility] [place] [facility] [address] [id number] [place] [address] 10 May, 2014 [facility] [place] [facility] [address] [id number] [place] [address]- [address] 10 May, 2014 [facility] [place] [facility] [address] [id number] [place] [address]- [address] May, 2014 [facility] [place] [facility] [address] [facility] [id number] [place] [address]- [address] May, 2014 [facility] [place] [facility] [address] [id number] [place] [address]- [address] May, 2014 [facility] [place] [facility] [address] [id number] [place] [address] May, 2014 [facility] [place] [facility] [address] [facility] [id number] [place] [address] May, 2014 [facility] [place] [facility] [address] [id number] [place] [address] May, 2014 [facility] [place] [facility] [address] [id number] [place] [address] May, 2014 [facility] [place] [facility] [address] [id number] [place] [address] May, 2014 [facility] [place] [facility] [address] [id number] [place] [address] 18 May, 2014 [facility] [place] [facility] [address] [facility] [id number] [place] [address] May, 2014 [facility] [place] [facility] [address] [facility] [id number] [place] [address] May, 2014 [facility] [place] [facility] [address] [id number] [place] [address] May, 2014 [facility] [place] [facility] [address] [address] [id number] [place] [address] May, 2014 [facility] [place] [facility] [address] [id number] [place] [address] May, 2014 [facility] [place] [facility] [address] [id number] [place] [address] 8967 May, 2014 [facility] [place] [facility] [address] [id number] [place] [address] 4[address] May, 2014 [facility] [place] [facility] [address] [id number] [place] [address] 0437 May, 2014 [facility] [place] [facility] [address] [id number] [place] [address] 6084 May, [facility] [place] [facility] [address] [id number] [place] [address] 4485 Apr, [facility] [place] [facility] [address] [id number] [place] [address] 3080 Apr, [facility] [place] [facility] [address] [id number] [place] [address]- 0791 Apr, [facility] [place] [facility] [address] [id number] [place] [address] 9969 Apr, [facility] [place] [facility] [address] [id number] [place] [address]- 6874 Apr, [facility] [place] [facility] [address] [id number] [place] [address]- 8333 Apr, [facility] [place] [facility] [address] [id number] [place] [address] 7167 Apr, [facility] [place] [facility] [address] [id number] [place] [address]- 3732 Apr, [facility] [place] [facility] [address] [id number] [place] [address] 9791 Mar, [facility] [place] [facility] [address] [id number] [place] [address] Mar, [facility] [place] [facility] [address] [id number] [place] [address]- 0586 Mar, [facility] [place] [facility] [address] [id number] [place] [address]- 4912 Mar, [facility] [place] [facility] [address] [id number] [place] [address]- 3280 Mar, [facility] [place] [facility] [address] [id number] [place] [address]- 7857 Mar, [facility] [place] [facility] [address] [id number] [place] [address]- 6357 Mar, [facility] [place] [facility] [address] [id number] [place] [address]- 2358 Mar, [facility] [place] [facility] [address] [id number] [place] [address]- 9154 Mar, [facility] [place] [facility] [address] [id number] [place] [address]- 3895 Mar, [facility] [place] [facility] [address] [id number] [place] [address]- 0834 Mar, [facility] [place] [facility] [address] [id number] [place] [address]- 3756 Mar, [facility] [place] [facility] [address] [id number] [place] [address]- 3226 Mar, [facility] [place] [facility] [address] [id number] [place] [address]- 2826 Mar, [facility] [place] [facility] [address] [id number] [place] [address]- 2517 Mar, [facility] [place] [facility] [address] [id number] [place] [address]- 4405 Mar, [facility] [place] [facility] [address] [id number] [place] [address]- 8868 Mar, [facility] [place] [facility] [address] [id number] [place] [address]- 4208 Mar, [facility] [place] [facility] [address] [id number] [place] [address]- 2810 Mar, [facility] [place] [facility] [address] [id number] [place] [address]- 0950 Mar, [facility] [place] [facility] [address] [id number] [place] [address]- 7586 Mar, [facility] [place] [facility] [address] [id number] [place] [address]- 4032 Mar, [facility] [place] [facility] [address] [id number] [place] [address]- 0780 Jan, [facility] [place] [facility] [address] [id number] [place] [address]- 1416 Jan, [facility] [place] [facility] [address] [id number] [place] [address]- 7386 Jan, [facility] [place] [facility] [address] [id number] [place] [address] 7542 Jan, [facility] [place] [facility] [address] [id number] [place] [address]- 8651 Jan, [facility] [place] [facility] [address] [id number] [place] [address]- 6893 Jan, [facility] [place] [facility] [address] [id number] [place] [address]- 3381 Jan, [facility] [place] [facility] [address] [id number] [place] [address]- 4787 Jan, [facility] [place] [facility] [address] [id number] [place] [address]- 6956 Jan, [facility] [place] [facility] [address] [id number] [place] [address]- 3501 Jan, [facility] [place] [facility] [address] [id number] [place] [address]- 2620 Jan, [facility] [place] [facility] [address] [id number] [place] [address]- 2187 Jan, [facility] [place] [facility] [address] [id number] [place] [address]- 3287 Jan, [facility] [place] [facility] [address] [id number] [place] [address]- 0898 Jan, [facility] [place] [facility] [address] [id number] [place] [address]- 1554 Jan, [facility] [place] [facility] [address] [id number] [place] [address]- 0363 Jan, [facility] [place] [facility] [address] [id number] [place] [address]- 8384 Jan, [facility] [place] [facility] [address] [id number] [place] [address]- 2376 Jan, [facility] [place] [facility] [address] [id number] [place] [address]- 6867 Jan, [facility] [place] [facility] [address] [id number] [place] [address]- 3041 Jan, [facility] [place] [facility] [address] [id number] [place] [address]- 7026 Dec, [facility] [place] [facility] [address] [id number] [place] [address]- 1662 Dec, [facility] [place] [facility] [address] [id number] [place] [address]- 6757 Dec, [facility] [place] [facility] [address] [id number] [place] [address]- 8536 Dec, [facility] [place] [facility] [address] [id number] [place] [address]- 7806 Dec, [facility] [place] [facility] [address] [id number] [place] [address]- 9726 Dec, [facility] [place] [facility] [address] [id number] [place] [address]- 6457 14 Dec, 2013 [facility] [place] [facility] [address] [id number] [place] [address]- 1857 Dec, [facility] [place] [facility] [address] [id number] [place] [address]- 2919 Dec, [facility] [place] [facility] [address] [id number] [place] [address]- 8250 Dec, [facility] [place] [facility] [address] [id number] [place] [address]- 8260 Dec, [facility] [place] [facility] [address] [id number] [place] [address]- 0514 Dec, [facility] [place] [facility] [address] [id number] [place] [address]- 6304 Dec, [facility] [place] [facility] [address] [id number] [place] [address]- 2370 Dec, [facility] [place] [facility] [address] [id number] [place] [address]- 2945 Dec, [facility] [place] [facility] [address] [id number] [place] [address]- 7077 22 Nov, 2013 [facility] [place] [facility] [address] [id number] [place] [address]- 6374 22 Nov, 2013 [facility] [place] [facility] [address] [id number] [place] [address]- 9391 19 Nov, 2013 [facility] [place] [facility] [address] [id number] [place] [address]- 7139 19 Nov, 2013 [facility] [place] [facility] [address] [id number] [place] [address]- 6810 13 Nov, 2013 [facility] [place] [facility] [address] [id number] [place] [address]- 8983 13 Nov, 2013 [facility] [place] [facility] [address] [id number] [place] [address]- 5987 10 Nov, 2013 [facility] [place] [facility] [address] [id number] [place] [address]- 5806 10 Nov, 2013 [facility] [place] [facility] [address] [id number] [place] [address]- 8433 08 Nov, 2013 [facility] [place] [facility] [address] [id number] [place] [address]- 0264 05 Nov, 2013 [facility] [place] [facility] [address] [id number] [place] [address]- 7309 05 Nov, 2013 [facility] [place] [facility] [address] [id number] [place] [address]- 0616 Nov, 2013 [facility] [place] [facility] [address] [id number] [place] [address]- 0261 Nov, 2013 [facility] [place] [facility] [address] [id number] [place] [address]- 2315 Oct, [facility] [place] [facility] [address] [id number] [place] [address]- 1349 Oct, [facility] [place] [facility] [address] [id number] [place] [address]- 1142 Oct, [facility] [place] [facility] [address] [id number] [place] [address]- 3992 Oct, [facility] [place] [facility] [address] [id number] [place] [address]- 8176 Oct, [facility] [place] [facility] [address] [id number] [place] [address]- 0573 Sep, [facility] [place] [facility] [address] [id number] [place] [address]- 7493 Sep, [facility] [place] [facility] [address] [id number] [place] [address]- 3436 Sep, [facility] [place] [facility] [address] [id number] [place] [address]- 1826 Sep, [facility] [place] [facility] [address] [id number] [place] [address]- 6210 Aug, [facility] [place] [facility] [address] [id number] [place] [address]- 4756 Aug, [facility] [place] [facility] [address] [id number] [place] [address]- 7823 Aug, [facility] [place] [facility] [address] [id number] [place] [address]- 0216 Aug, [facility] [place] [facility] [address] [id number] [place] [address]- 7955 Aug, [facility] [place] [facility] [address] [id number] [place] [address]- 1659 Aug, [facility] [place] [facility] [address] [id number] [place] [address]- 8802 Aug, [facility] [place] [facility] [address] [id number] [place] [address]- 8226 Aug, [facility] [place] [facility] [address] [id number] [place] [address]- 3010 Aug, [facility] [place] [facility] [address] [id number] [place] [address]- 9827 Aug, [facility] [place] [facility] [address] [id number] [place] [address]- 2263 Aug, [facility] [place] [facility] [address] [id number] [place] [address]- 8743 Aug, [facility] [place] [facility] [address] [id number] [place] [address]- 0925 Aug, [facility] [place] [facility] [address] [id number] [place] [address]- 2994 Aug, [facility] [place] [facility] [address] [id number] [place] [address]- 1623 Aug, [facility] [place] [facility] [address] [id number] [place] [address]- 5939 Aug, [facility] [place] [facility] [address] [id number] [place] [address]- 7320 Aug, [facility] [place] [facility] [address] [id number] [place] [address]- 1303 Aug, [facility] [place] [facility] [address] [id number] [place] [address]- 5144 Aug, [facility] [place] [facility] [address] [id number] [place] [address]- 5702 Aug, [facility] [place] [facility] [address] [id number] [place] [address]- 3633 Aug, [facility] [place] [facility] [address] [id number] [place] [address]- 8219 Aug, [facility] [place] [facility] [address] [id number] [place] [address]- 4929 Aug, [facility] [place] [facility] [address] [id number] [place] [address]- 3914 Aug, [facility] [place] [facility] [address] [id number] [place] [address]- 3569 July, [facility] [place] [facility] [address] [id number] [place] [address]- 8763 July, [facility] [place] [facility] [address] [id number] [place] [address]- 2860 July, [facility] [place] [facility] [address] [id number] [place] [address]- 0384 July, [facility] [place] [facility] [address] [id number] [place] [address]- 8881 July, [facility] [place] [facility] [address] [id number] [place] [address]- 6063 July, [facility] [place] [facility] [address] [id number] [place] [address]- 9219 Jun, [facility] [place] [facility] [address] [id number] [place] [address]- 6048 Jun, [facility] [place] [facility] [address] [id number] [place] [address]- 0766 Jun, [facility] [place] [facility] [address] [id number] [place] [address]- 3395 Jun, [facility] [place] [facility] [address] [id number] [place] [address]- 1735 Jun, [facility] [place] [facility] [address] [id number] [place] [address]- 8361 Jun, [facility] [place] [facility] [address] [id number] [place] [address]- 3718 Jun, [facility] [place] [facility] [address] [id number] [place] [address]- 7932 Jun, [facility] [place] [facility] [address] [id number] [place] [address]- 5823 Jun, [facility] [place] [facility] [address] [id number] [place] [address]- 4632 Jun, [facility] [place] [facility] [address] [id number] [place] [address]- 6883 Jun, [facility] [place] [facility] [address] [id number] [place] [address]- 9114 Jun, [facility] [place] [facility] [address] [id number] [place] [address]- 8925 Jun, [facility] [place] [facility] [address] [id number] [place] [address]- 1135 Jun, [facility] [place] [facility] [address] [id number] [place] [address]- 0026 Jun, [facility] [place] [facility] [address] [id number] [place] [address]- 3745 May, [facility] [place] [facility] [address] [id number] [place] [address]- 4023 May, [facility] [place] [facility] [address] [id number] [place] [address]- 8993 May, [facility] [place] [facility] [address] [id number] [place] [address]- 1476 May, [facility] [place] [facility] [address] [id number] [place] [address]- 5355 May, [facility] [place] [facility] [address] [id number] [place] [address]- 3854 May, [facility] [place] [facility] [address] [id number] [place] [address]- 1375 May, [facility] [place] [facility] [address] [id number] [place] [address]- 5921 May, [facility] [place] [facility] [address] [id number] [place] [address]- 1786 May, [facility] [place] [facility] [address] [id number] [place] [address]- 2687 May, [facility] [place] [facility] [address] [id number] [place] [address]- 0637 May, [facility] [place] [facility] [address] [id number] [place] [address]- 4128 May, [facility] [place] [facility] [address] [id number] [place] [address]- 2040 May, [facility] [place] [facility] [address] [id number] [place] [address]- 3967 May, [facility] [place] [facility] [address] [id number] [place] [address]- 0340 May, [facility] [place] [facility] [address] [id number] [place] [address]- 0001 May, [facility] [place] [facility] [address] [id number] [place] [address]- 3415 May, [facility] [place] [facility] [address] [id number] [place] [address]- 4975 Apr, [facility] [place] [facility] [address] [id number] [place] [address]- 4767 Apr, [facility] [place] [facility] [address] [id number] [place] [address]- 6288 Apr, [facility] [place] [facility] [address] [id number] [place] [address]- 6996 Apr, [facility] [place] [facility] [address] [id number] [place] [address]- 3312 Apr, [facility] [place] [facility] [address] [id number] [place] [address]- 3156 Apr, [facility] [place] [facility] [address] [id number] [place] [address]- 5223 Apr, [facility] [place] [facility] [address] [id number] [place] [address]- 5680 Apr, [facility] [place] [facility] [address] [id number] [place] [address]- 1169 Apr, [facility] [place] [facility] [address] [id number] [place] [address]- 4608 Apr, [facility] [place] [facility] [address] [id number] [place] [address]- 5606 Apr, [facility] [place] [facility] [address] [id number] [place] [address]- 2415 Apr, [facility] [place] [facility] [address] [id number] [place] [address]- 1744 Apr, [facility] [place] [facility] [address] [id number] [place] [address]- 0204 Apr, [facility] [place] [facility] [address] [id number] [place] [address]- 1179 Apr, [facility] [address] [id number] [place] [address]- 9084 Apr, [facility] [place] [facility] [address] [id number] [place] [address]- 5885 Mar, [facility] [place] [facility] [address] [id number] [place] 9195 Mar, [facility] [place] [facility] [address] [id number] [place] [address]- 7316 Mar, [facility] [place] [facility] [address] [id number] [place] [address]- 1941 Mar, [facility] [place] [facility] [address] [id number] [place] [address]- 8584 Mar, [facility] [place] [facility] [address] [id number] [place] [address]- 1642 Mar, [facility] [place] [facility] [address] [id number] [place] [address]- 2436 Mar, [facility] [place] [facility] [address] [id number] [place] [address]- 5900 Mar, [facility] [place] [facility] [address] [id number] [place] [address]- 8796 Mar, [facility] [place] [facility] [address] [id number] [place] [address]- 3767 Mar, [facility] [place] [facility] [address] [id number] [place] [address]- 1153 05 Mar, 2013 [facility] [place] [facility] [address] [id number] [place] [address]- 4045 Mar, [facility] [place] [facility] [address] [id number] [place] [address]- 5444 Mar, [facility] [place] [facility] [address] [id number] [place] [address]- 0364 Mar, [facility] [place] [facility] [address] [id number] [place] [address]- 5618 Mar, [facility] [address] [id number] [place] [address]- 7742 Mar, [facility] [place] [facility] [address] [id number] [place] [address]- 6349 Mar, [facility] [address] [id number] [place] [address]- 2493 Mar, [facility] [place] [facility] [address] [id number] [place] [address]- 8858 Jan, [facility] [place] [facility] [address] [id number] [place] [address]- 3661 Jan, [facility] [place] [facility] [address] [id number] [place] [address]- 6264 Jan, [facility] [address] [id number] [place] [address]- 0060 Jan, [facility] [place] [facility] [address] [id number] [place] [address]- 6089 Nov, [facility] [place] [facility] [address] [id number] [place] [address]- 1808 Nov, [facility] [place] [facility] [address] [id number] [place] [address]- 0684 Nov, [facility] [place] [facility] [address] [id number] [place] [address]- 4188 Nov, [facility] [place] [facility] [address] [id number] [place] [address]- 8283 Oct, [facility] [place] [facility] [address] [id number] [place] [address]- 5778 Oct, [facility] [place] [facility] [address] [id number] [place] [address]- 3180 Oct, [facility] [place] [facility] [address] [id number] [place] [address]- 2786 Oct, [facility] [place] [facility] [address] [id number] [place] [address]- 1660 Sep, [facility] [place] [facility] [address] [id number] [place] [address] Sep, [facility] [place] [facility] [address] [id number] [place] [address] Sep, [facility] [place] [facility] [address] [id number] [place] [address] Sep, [facility] [place] [facility] [address] [id number] [place] [address] Sep, [facility] [place] [facility] [address] [id number] [place] [address] Sep, [facility] [place] [facility] [address] [id number] [place] [address] Sep, [facility] [place] [facility] [address] [id number] [place] [address] Sep, [facility] [place] [facility] [address] [id number] [place] [address] Sep, [facility] [place] [facility] [address] [id number] [place] [address] Aug, [facility] [place] [facility] [address] [id number] [place] [address] Aug, [facility] [place] [facility] [address] [id number] [place] [address] Aug, [facility] [place] [facility] [address] [id number] [place] [address] Aug, [facility] [place] [facility] [address] [id number] [place] [address] July, [facility] [place] [facility] [address] [id number] [place] [address] July, [facility] [place] [facility] [address] [id number] [address] July, [facility] [address] [id number] [address] July, [facility] [id number] [address] July, [facility] [id number] [address] July, [facility] [id number] [address] July, [facility] [id number] [address] Jun, [facility] [id number] [address] May, [facility] [id number] [address] May, [facility] [id number] [address] May, [facility] [id number] [address] May, [facility] [id number] [address] May, [facility] [id number] [address] May, [facility] [address] [id number] [address] May, [facility] [id number] [address] May, IMMUNIZATIONS No Known Immunizations SOCIAL HISTORY Never Assessed REASON FOR VISIT Diabetes Pt in for DM check up [place] June PLAN OF CARE VITAL SIGNS Height 64 in 2017-11-14 Weight 302.08 lbs 2017-11-14 Temperature 98.3 degrees Fahrenheit 2017-11-14 Heart Rate 68 bpm 2017-11-14 Respiratory Rate 20 2017-11-14 Oximetry w/ oxygen @ 4L:84 % 2017-11-14 BMI 51.85 kg/m2 2017-11-14 Blood pressure systolic 102 mmHg 2017-11-14 Blood pressure diastolic 58 mmHg 2017-11-14 MEDICATIONS Medication Instructions Dosage Frequency Start Date End Date Duration Status Guaifenesin 400 MG Orally 4 times a day 1 tablet as needed 6h Apr, Active Isosorbide Mononitrate ER 30 mg TAKE 1 TABLET BY MOUTH DAILY 30 Active HydrOXYzine HCl 25 MG TAKE 1 TABLET BY MOUTH FOUR TIMES DAILY NEEDED FOR ANXIETY 22 Active Polacca 10-325 MG Orally every 6 hrs take 1 tablet by oral route every 6 hours as needed for pain 6h May, 28 days Active Montelukast Sodium 10 MG TAKE ONE TABLET BY MOUTH ONCE DAILY IN THE EVENING 30 Active Wheelchair - .... 24h July, lifetime Active Amitriptyline HCl 25 MG Orally Once a day 1 tablet 24h Oct, 30 day(s) Active PredniSONE 20 mg Orally Once a day 2 tablets 24h Apr, 05 days Not-Taking Aspirin 81 mg take 1 tablet (81 mg) by oral route once daily May, Active Mupirocin 2 % APPLY TO AFFECTED AREA TWICE DAILY 5 Active True Metrix Blood Glucose Test - USE TO TEST BLOOD GLUCOSE LEVELS TWICE DAILY 25 Active Loratadine 10 MG TAKE ONE TABLET BY MOUTH DAILY AT BEDTIME 30 Active Lantus SoloStar 100 unit/ml Subcutaneous Once a day INJECT 36 UNITS SUBCUTANEOUSLY DAILY AT BEDTIME 24h Active Nystatin 985752 UNIT/GM Externally Twice a day 1 to affected area 12h Mar, Active Metoprolol Tartrate 100 mg Orally Twice a day 1 tablet 12h 30 Active Crestor 20 mg Orally Once a day 1 tablet 24h Active Glucagon Emergency 1 mg 30 Jul, 2013 Not-Taking Lidoderm 5 % Externally Once a day 1 patch to skin remove after 12 hours 24h Aug, Active Amlodipine Besylate 10 MG TAKE 1 TABLET BY MOUTH DAILY 30 Active Fluticasone Propionate 50 MCG/ACT Nasally Once a day 1 spray in each nostril 24h 30 days Active Furosemide 40 MG TAKE ONE TABLET BY MOUTH DAILY 30 30 Active Dialyvite Orally Once a day 1 tablet 24h Not-Taking Humalog KwikPen 100 UNIT/ML Subcutaneous 3 times a day per sliding scale 8h May, 30 days Active Gabapentin 300 MG Orally Three times a day 1 capsule 8h 30 Active Renvela 800 MG 2tablet with breakfast and dinner and 1 tablet with lunch Not-Taking Rosuvastatin Calcium 20 MG TAKE 1 TABLET BY MOUTH ONCE A DAY 30 Active Oxygen 5 as directed July, Active Singulair 10 MG take 1 tablet (10 mg) by oral route once daily in the evening Active RESULTS Name Result Date Reference Range GLUCOSE FINGERSTICK (IN HOUSE) 2017-11-14 GLU FINGERSTICK 216 PC unknown Lot # [id number] Exp date 02/13/18 PROCEDURES Procedure Date Ordered Result Body Site [facility] VISIT ESTABLISHED PATIENT Nov 14, 2017 GLUCOSE BLOOD TEST Nov 14, 2017 INSTRUCTIONS MEDICATIONS ADMINISTERED No Known Medications [...]
[2018-03-12 21:36] LABS: BASOPHILS % (AUTO) 0 % (0-10); EOSINOPHILS % (AUTO) 0 % (0-10); HEMATOCRIT 36 % (35-52); HEMOGLOBIN 10.9 G/DL (11.5-16.0); LYMPHOCYTES # (AUTO) 0.8 X 10^3 (1.0-4.0); LYMPHOCYTES % (AUTO) 12 % (12-44); MEAN CORPUSCULAR HEMOGLOBIN 31 PG (25-34); MEAN CORPUSCULAR HGB CONC 30 G/DL (32-36); MEAN CORPUSCULAR VOLUME 103 FL (80-99); MEAN PLATELET VOLUME 12.8 FL (7.4-10.4); MONOCYTES % (AUTO) 1 % (0-12); NEUTROPHILS # (AUTO) 6.1 X 10^3 (1.8-7.8); NEUTROPHILS % (AUTO) 87 % (42-75); PLATELET COUNT 164 10^3/uL (130-400); RED BLOOD COUNT 3.47 10^6/uL (4.35-5.85); RED CELL DISTRIBUTION WIDTH 18.4 % (10.0-14.5)
[2018-03-12] MEDS ORDERED: ASPIRIN 81 MG CHEW (CHILDREN'S ASA) PO ONE ×2 (21:45→22:15)
[2018-03-12] MEDS ORDERED: NITROGLYCERIN 0.4 MG SL TABS BTL 25'S SL PRN (21:45)
[2018-03-12 21:50] LABS: INR 1.1 (0.8-1.4); PROTHROMBIN TIME PATIENT 14.1 SEC (12.2-14.7)
[2018-03-12 21:53] LABS: ALANINE AMINOTRANSFERASE 38 U/L (0-55); ALKALINE PHOSPHATASE 139 U/L (40-136); BILIRUBIN,TOTAL 0.5 MG/DL (0.1-1.0); BUN/CREATININE RATIO 5; CALCIUM 9.3 MG/DL (8.5-10.1); CARBON DIOXIDE 26 MMOL/L (21-32); CHLORIDE 88 MMOL/L (98-107); GFR ESTIMATED 8; POTASSIUM 5.2 MMOL/L (3.6-5.0); SODIUM 133 MMOL/L (135-145); TOTAL PROTEIN 8.1 GM/DL (6.4-8.2)
--- NOTE | 2018-03-12 21:54 | ED Chest Pain ---
General Chief Complaint: Chest Pain Stated Complaint: CHEST PAIN Nursing Triage Note: PT BROUGHT IN BY EMS WITH COMPLAINT OF CHEST PAIN. PT HAS HAD THE CHEST PAIN FOR TWO WEEKS.PT STATES THAT THE PAIN STARTS IN HER ARM AND GOES UP TO HER CHEST AND USUALLY TAKES METOPROLOL, ISOSORBIDE, AND AMLODPINE THAT USUALLY STOPS HER PAIN. STATES THEY DID NOT STOP HER PAIN TONIGHT. PT WAS STARTED ON PREDNISONE AND CLEOCIN TODAY/ Nursing Sepsis Screen: No Definite Risk Source: patient Exam Limitations: no limitations History of Present Illness Date Seen by Provider: Mar 12, 2018 Time Seen by Provider: 21:20 Initial Comments Patient is a 52-year-old female who is brought into the emergency room by [facility] of chest pain for 2 weeks. She reports having the chest pain intermittently for the past 2 weeks and it starts in her left wrist and radiates up into her left chest. She reports taking metoprolol isosorbide and amlodipine for the pain usually stops her chest pain but tonight it did not. She was seen at [facility] and started on prednisone and Cleocin for an upper respiratory infection that she's also had for the past 2 weeks. She has a history of COPD and wears oxygen via nasal 4 L all the time. She reports that she has had some wheezing throughout the day. She is an end-stage renal failure and receives dialysis. Her last dialysis appointment was this morning. She does not produce any urine. She is also experiencing nausea and vomiting that started shortly after dinner this evening. Timing/Duration: other (2 weeks) Severity/Quality: sharp Location: other (left wrist) Radiation: other (chest ) Prior CP/Workup: cardiac cath ASA po PSYCHOLOGICAL OPERATIONS SPECIALIST: No NTG SL PSYCHOLOGICAL OPERATIONS SPECIALIST: No Associated Symptoms: nausea/vomiting Allergies and Home Medications Allergies Coded Allergies: aloe vera (Verified Allergy, Severe, RASH, 11/05/13) flu vaccine [id number](4 yr+) (Verified Allergy, Mild, HIVES, 04/22/12) adhesive (Verified Allergy, Unknown, 05/01/07) Uncoded Allergies: TAPE (Allergy, Mild, 05/16/10) Home Medications Amlodipine Besylate 10 Mg Tablet, 10 MG PO HS, (Reported) Amoxicillin/Potassium Clav 1 Each Tablet, 1 TAB PO Q8H, (Reported) 14 DAY SUPPLY FILLED 07-06-16 Aspirin 81 Mg Tablet.dr, 81 MG PO DAILY, (Reported) Clopidogrel Bisulfate 75 Mg Tablet, 75 MG PO DAILY Prescribed by: СВЕТЛАНА HOWE on 07/24/16 1217 Doxycycline Monohydrate 100 Mg Capsule, 100 MG PO BID, (Reported) 14 DAY SUPPLY FILLED 07-06-16 Fluticasone Propionate 16 Gm Sealy.susp, 1 SPRAY NA DAILY PRN for ALLERGIES, ( Reported) Furosemide 40 Mg Tablet, 40 MG PO DAILY, (Reported) Gabapentin 300 Mg Capsule, 300 MG PO TID, (Reported) Hydrocodone/Acetaminophen 1 Each Tablet, 1 TAB PO Q6H PRN for PAIN-MODERATE, ( Reported) Hydroxyzine HCl 25 Mg Tablet, 25 MG PO TID PRN for an, (Reported) Insulin Glargine,Hum.rec.anlog 100 Unit/1 Ml Insuln.pen, 30 UNITS SQ HS, ( Reported) Insulin Lispro 100 Unit/1 Ml Insuln.pen, SQ HS, (Reported) 100-200 = 12-16 UNITS ABOVE 300 = 20 UNITS ABOVE 400 = CALL Isosorbide Mononitrate 30 Mg Tab.er.24h, 30 MG PO HS, (Reported) Loratadine 10 Mg Tablet, 10 MG PO HS, (Reported) Metoprolol Tartrate 100 Mg Tablet, 100 MG PO BID, (Reported) Montelukast Sodium 10 Mg Tablet, 10 MG PO HS, (Reported) Naproxen 375 Mg Tablet, 375 MG PO BID PRN for PAIN-MILD, (Reported) Ondansetron 8 Mg Tab.rapdis, 8 MG PO Q8H PRN for NAUSEA/VOMITING-1ST LINE, ( Reported) Rosuvastatin Calcium 20 Mg Tablet, 20 MG PO HS, (Reported) Sevelamer Carbonate 800 Mg Tablet, 3,200 MG PO BID WITH MEALS, (Reported) TAKES 4 (800MG) TABLETS WITH BREAKFAST AND SUPPER AND TAKES 2 (800MG) TABLETS WITH SNACK Sevelamer Carbonate 800 Mg Tablet, 1,600 MG PO DAILY WITH SNACK, (Reported) TAKES 2 (800MG) TABLETS Vit B Cmplx 3/FA/Vit C/Biotin 1 Each Tablet, 1 TAB PO DAILY, (Reported) Patient Home Medication List Home Medication List Reviewed: Yes Review of Systems Review of Systems Constitutional: no symptoms reported, see HPI Respiratory: See HPI, Wheezing Cardiovascular: See HPI, Chest Pain All Other Systems Reviewed Negative Unless Noted: Yes Past Rdclbcl-Yuiftn-Axbvlk Hx Past Med/Social Hx: Reviewed Nursing Past Med/Soc Hx Patient Social History Alcohol Use: Denies Use Recreational Drug Use: No Smoking Status: Never a Smoker 2nd Hand Smoke Exposure: Yes Recent Foreign Travel: No Contact w/Someone Who Travel: No Recent Infectious Disease Expo: No Recent Hopitalizations: No Immunizations Up To Date Tetanus Booster (TDap): Less than 5yrs PED Vaccines UTD: No Date of Pneumonia Vaccine: Sep 02, 2013 Seasonal Allergies Seasonal Allergies: Yes Past Medical History Surgeries: Yes (DIALYSIS AV FISTULA/GRAFT LEFT UPPER ARM, LEFT BKA) Amputation, Arteriovenous Shunt, Cardiac, Section, Dialysis, Hysterectomy, Orthopedic, Tracheostomy, Vascular Surgery Respiratory: Yes (TRACHEOSTOMY IN PAST--PT STATES DUE TO "DIABETIC COMA", O2 AT 4L/NC) Asthma, COPD, Emphysema Currently Using CPAP: No Currently Using BIPAP: No Cardiac: Yes Chronic Edema/Swelling, Coronary Artery Disease, High Cholesterol, Hypertension , Peripheral Vascular Neurological: Yes Headaches /Migraines, Neuropathy 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 Disorders: No Sexually Transmitted Disease: No HIV/AIDS: No Renal Failure, Dialysis Gastrointestinal: Yes Chronic Constipation Musculoskeletal: Yes (BILATERAL CARPAL TUNNEL SYMPTOMS; LEFT BKA, LEFT STUMP FRACTURE) Arthritis, Chronic Back Pain, Fractures Endocrine: Yes (DKA IN PAST ) Diabetes, Insulin dep Loss of Vision: Denies Hearing Impairment: Denies, Hard of Hearing Cancer: No Psychosocial: No Integumentary: Yes (DIABETIC ULCERS) Blood Disorders: No Adverse Reaction/Blood Tranf: No Family Medical History Reviewed Nursing Family Hx Diabetes mellitus Family history: Asthma 09 BROTHER No Family History of: AIDS Abdominal aortic aneurysm Saad's disease Alcoholism Alzheimer's disease Aphasia Arthritis Asthma Cancer of mouth Cardiovascular disease Cataracts Colon cancer Completed stroke Congenital disease Congenital heart disease Coronary thrombosis Cystic fibrosis Deafness or hearing loss Dementia Drug abuse Dysphasia Fibrocystic disease of breast Gastroenteritis Glaucoma Headache disorder Hypercholesterolemia Hypertension Infertility Kidney disease Myocardial infarction Neoplasm Not obtainable due to adoption Osteoporosis Parkinson's disease Prostate cancer Psychosocial problem Respiratory disorder Seizure disorder Severe allergy Thyroid disease Tuberculosis Visual disorder Physical Exam Vital Signs Vital Signs - First Documented Capillary Refill : Less Than 3 Seconds Height, Weight, BMI Height: 5'4.00" Weight: 360lbs. 0.0oz. 163.455259aq; 53.4 BMI Method:Stated General Appearance: No Apparent Distress, WD/WN Respiratory: Chest Non Tender, Normal Breath Sounds, No Accessory Muscle Use, No Respiratory Distress, Wheezing (throughout lung floyd bilaterally) Cardiovascular: Regular Rate, Rhythm, No Edema, No Gallop, No JVD, No Murmur, Normal Peripheral Pulses Gastrointestinal: Normal Bowel Sounds, No Organomegaly, No Pulsatile Mass, Non Tender Extremity: Normal Capillary Refill, Normal Range of Motion, Other (below the knee amputation left lower extremity) Neurologic/Psychiatric: Alert, Oriented x3, Normal Mood/Affect Skin: Normal Color, Warm/Dry Focused Exam Lactate Level 03/12/18 21:20: Lactic Acid Level 1.77 Lactic Acid Level Laboratory Tests Test 03/12/18 21:20 Lactic Acid Level 1.77 MMOL/L (0.50-2.00) Progress/Results/Core Measures Results/Orders Lab Results Laboratory Tests Test 03/12/18 21:20 03/12/18 22:59 03/13/18 00:05 Range/Units White Blood Count 7.0 4.3-11.0 10^3/uL Red Blood Count 3.47 L 4.35-5.85 10^6/uL Hemoglobin 10.9 L 11.5-16.0 G/DL Hematocrit 36 35-52 % Mean Corpuscular Volume 103 H 80-99 FL Mean Corpuscular Hemoglobin 31 25-34 PG Mean Corpuscular Hemoglobin Concent 30 L 32-36 G/DL Red Cell Distribution Width 18.4 H 10.0-14.5 % Platelet Count 164 130-400 10^3/uL Mean Platelet Volume 12.8 H 7.4-10.4 FL Neutrophils (%) (Auto) 87 H 42-75 % Lymphocytes (%) (Auto) 12 12-44 % Monocytes (%) (Auto) 1 0-12 % Eosinophils (%) (Auto) 0 0-10 % Basophils (%) (Auto) 0 0-10 % Neutrophils # (Auto) 6.1 1.8-7.8 X 10^3 Lymphocytes # (Auto) 0.8 L 1.0-4.0 X 10^3 Monocytes # (Auto) 0.0 0.0-1.0 X 10^3 Eosinophils # (Auto) 0.0 0.0-0.3 10^3/uL Basophils # (Auto) 0.0 0.0-0.1 10^3/uL Neutrophils % (Manual) 95 % Lymphocytes % (Manual) 5 % Monocytes % (Manual) 0 % Eosinophils % (Manual) 0 % Basophils % (Manual) 0 % Band Neutrophils 0 % Anisocytosis SLIGHT Macrocytosis SLIGHT Prothrombin Time 14.1 12.2-14.7 SEC INR Comment 1.1 0.8-1.4 Activated Partial Thromboplast Time 31 24-35 SEC Sodium Level 133 L 135-145 MMOL/L Potassium Level 5.2 H 3.6-5.0 MMOL/L Chloride Level 88 L 98-107 MMOL/L Carbon Dioxide Level 26 21-32 MMOL/L Anion Gap 19 H 5-14 MMOL/L Blood Urea Nitrogen 29 H 7-18 MG/DL Creatinine 5.60 H 0.60-1.30 MG/DL Estimat Glomerular Filtration Rate 8 BUN/Creatinine Ratio 5 Glucose Level 569 *H 70-105 MG/DL Lactic Acid Level 1.77 0.50-2.00 MMOL/L Calcium Level 9.3 8.5-10.1 MG/DL Corrected Calcium 9.3 8.5-10.1 MG/DL Magnesium Level 2.0 1.8-2.4 MG/DL Total Bilirubin 0.5 0.1-1.0 MG/DL Aspartate Amino Transf (AST/SGOT) 29 5-34 U/L Alanine Aminotransferase (ALT/SGPT) 38 0-55 U/L Alkaline Phosphatase 139 H 40-136 U/L Myoglobin 138.8 H 10.0-92.0 NG/ML Troponin I < 0.30 <0.30 NG/ML B-Type Natriuretic Peptide 62.0 <100.0 PG/ML Total Protein 8.1 6.4-8.2 GM/DL Albumin 4.0 3.2-4.5 GM/DL Beta-Hydroxybutyrate (Chem panel) 1.12 H 0.00-0.27 MMOL/L Glucometer 528 *H 566 *H 70-110 MG/DL My Orders Orders - KASEY PAT Cbc With Automated Diff (03/12/18 21:15) Magnesium (03/12/18 21:15) Chest 1 View, Ap/Pa Only (03/12/18 21:15) Ekg Tracing (03/12/18 21:15) Cardiac Profile 1 (03/12/18 21:15) Comprehensive Metabolic Panel (03/12/18 21:15) Myoglobin Serum (03/12/18 21:15) Protime With Inr (03/12/18 21:15) Partial Thromboplastin Time (03/12/18 21:15) O2 (03/12/18 21:15) Monitor-Rhythm Ecg Trace Only (03/12/18 21:15) Saline Lock/Iv-Start (03/12/18 21:15) Albuterol/Ipra Inhalation Soln (Duoneb I (03/12/18 21:15) Svn Small Volume Nebulizer (03/12/18 21:15) Nitroglycerin 0.4 Mg Btl 25's (Nitrostat (03/12/18 21:45) Aspirin Chewable Tablet (Baby Aspirin Ch (03/12/18 21:45) Manual Differential (03/12/18 21:20) Blood Culture (03/12/18 21:42) Lactic Acid Analyzer (03/12/18 21:42) BNP (03/12/18 21:44) Ondansetron Injection (Zofran Injectio (03/12/18 22:00) Ua Culture If Indicated (03/12/18 21:59) Aspirin Chewable Tablet (Baby Aspirin Ch (03/12/18 22:15) Insulin (Regular) Human (Humulin R (Per (03/12/18 22:30) Morphine Injection (Morphine Injection (03/12/18 23:00) Arterial Blood Gas (03/12/18 23:06) Beta Hydroxybutyrate (03/12/18 23:20) Insulin Regular Tpn/Drip Only (Humulin R (03/13/18 00:15) Normal Saline (Ns ([place] Bag)) (03/13/18 00:09) Insulin Regular Tpn/Drip Only (Humulin R (03/13/18 00:30) Medications Given in ED Current Medications Medications Dose Ordered Sig/Lindy Route Start Time Stop Time Status Last Admin Dose Admin Albuterol/ Ipratropium 3 ml ONCE ONCE INH 03/12/18 21:15 03/12/18 21:17 DC 03/12/18 21:34 3 ML Aspirin 324 mg ONCE ONCE PO 03/12/18 22:15 03/12/18 22:16 DC 03/12/18 22:20 324 MG Morphine Sulfate 2 mg ONCE ONCE IVP 03/12/18 23:00 03/12/18 23:01 DC 03/12/18 23:03 2 MG Morphine Sulfate 2 mg ONCE ONCE IVP 03/13/18 01:00 03/13/18 01:01 DC 03/13/18 01:03 2 MG Nitroglycerin 1 TAB Q 5 MIN X 3 NEEDED PRN SL 03/12/18 21:45 03/13/18 01:15 DC 03/12/18 22:10 0.4 MG Ondansetron HCl 8 mg ONCE ONCE IVP 03/12/18 22:00 03/12/18 22:01 DC 03/12/18 22:08 8 MG Vital Signs/I&O 03/12/18 03/12/18 03/12/18 21:10 21:10 21:34 Temp 98.4 Pulse 97 Resp 20 B/P (MAP) 129/70 (89) Pulse Ox 94 96 96 O2 Delivery Nasal Cannula Nasal Cannula Nasal Cannula O2 Flow Rate 4.00 4.00 4.00 Blood Pressure Mean: 89 Progress Progress Note : Time: 21:55 Progress Note Laboratories critical glucose of 569. IV insulin was ordered at this time. The patient was given 1 nitroglycerin sublingual for her chest pain radiating 10/ 10. Her blood pressure did drop from 123 systolic to 90 systolic. Her pain did improve with the 1 nitroglycerin sublingual to 6/10. Pain control was switched to morphine at this time. 0:I have discussed the case with and he believes that with the patient's high blood sugar she should be further evaluated, but her blood sugar did come down with insulin could potentially be sent home and followed an outpatient basis. Her pain is still in her left shoulder after 2mg of morphine and she is rating it at 3 out of 10 at this time. I have discussed options with the patient and she agrees to be transferred to [facility] for further evaluation of chest pain and possible need for insulin drip. She agrees with plans for transfer. 2300: I have spoke to Dr. Carlyn Batres the airport operations officer and he agrees to accept the patient to his services and recommends sending her to the stepdown unit. He also recommends running a Beta-hydroxybutyrate. 2356: Awaiting bed assignment at this time. 2358: I have updated of elevated Beta-Hydroxybutyrate and he states that this level is consistent with diabetic ketoacidosis and recommends starting the insulin drip in the emergency room here. 0000: Unable to obtain arterial blood gas sample after multiple attempts. Initial ECG Impression Date: Mar 12, 2018 Initial ECG Impression Time: 21:39 Initial ECG Rate: 93 Initial ECG Rhythm: Normal Sinus Initial ECG Intervals: Normal Initial ECG Impression: Normal, 1st Degree AV Block Initial ECG Comparisson: Unchanged Comment First-degree AV block, left anterior fascicular block, anteroseptal infarct. Unchanged from previous EKG November 2017. Diagnostic Imaging Diagonstic Imaging: Xray Plain Films/CT/US/NM/MRI: chest Comments [facility] [place] NAME: VARGAS FISHER [facility] REC#: [id number] PT STATUS: REG ER : 1965 PHYSICIAN: KASEY PAT ADMIT DATE: 03/12/18/ER Draft Date of Exam:03/12/18 CHEST 1 VIEW, AP/PA ONLY EXAMINATION: Single frontal view of the chest. INDICATION: Shortness of breath. COMPARISON: Multiple priors, most recent performed on 12/18/2017. FINDINGS: Evaluation is limited secondary to technique and patient body habitus. There is unchanged marked cardiomegaly. There does not appear to be focal consolidation. There is unchanged prominence of the central pulmonary vasculature, without overt edema. No pneumothorax or a large pleural effusion. IMPRESSION: Markedly limited exam. Unchanged cardiomegaly. No definite evidence for focal consolidation. No overt edema. Dictated on workstation # [id number] Dict: 03/12/182215 Trans: 03/12/182225 [facility] [id number] Interpreted by: PIETER HICKS DO Electronically signed by: Reviewed: Reviewed by Me Departure Impression Primary Impression: ESRD (end stage renal disease) on dialysis Additional Impressions: Chest pain Hyperglycemia Diabetic keto-acidosis Disposition: XFER SHT-TRM HOSP Condition: Stable Transfer Time Spoke to Accepting Phy: 23:[address] Carlyn Batres agrees to accept patient at this time. The patient will be going to stepdown unit. Room 3109 Transfer Time: 23:26 Transfer Facility: [facility] Method of Transfer: EMS Departure-Patient Inst. Referrals: [facility] (PCP/Family) Primary Care Physician KASEY PAT Mar 12, 2018 21:54
[2018-03-12 21:55] LABS: GLUCOSE 569 MG/DL (70-105)
[2018-03-12 22:00] LABS: MYOGLOBIN SERUM 138.8 NG/ML (10.0-92.0)
[2018-03-12] MEDS ORDERED: ONDANSETRON 4 MG/2 ML (SDV) Z0FRAN IVP ONE (22:00)
[2018-03-12 22:03] LABS: ANISOCYTOSIS SLIGHT; BAND NEUTROPHILS 0 %; BASOPHILS % (MANUAL) 0 %; EOSINOPHILS % (MANUAL) 0 %; LYMPHOCYTES % (MANUAL) 5 %; MONOCYTES % (MANUAL) 0 %; NEUTROPHILS % (MANUAL) 95 %
--- OUTSIDE RECORDS SUMMARY | 2018-03-12 22:13 | XMS REPORT | Continuity of Care Document ---
Author Author [facility] Address Unknown Phone Unavailable Allergies Active Description Code Type Severity Reaction Onset Reported/Identified Relationship to Patient Clinical Status Yes adhesive [id number] Drug Allergy Unknown N/A 05/01/2007 Yes TAPE TAPE Mild N/ A 05/16/2010 Yes flu vaccine [id number](4 yr+) [id number] Drug Allergy Mild HIVES 2012 Yes aspirin Drug Allergy N/A N/A 05/07/2012 Yes aloe vera [id number] Drug Allergy Severe RASH 11/05/2013 Medications There is no data. 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 02/29/1600 MCKENNA HEBERT Ot Z89.512 ACQUIRED ABSENCE OF [...] 05/07/2012 MCKENNA HEBERT APRN 496 COPD 05/07/2012 JONNIE ADORNO MD 250.00 DIABETES II CONTROLLED (UNCOMPLICATED) 05/07/2012 JONNIE ADORNO MD 496 COPD 05/07/2012 HURTADO ZAINA 250.00 DIABETES II CONTROLLED (UNCOMPLICATED) 05/07/2012 HURTADO ZAINA TOBAR K 496 COPD 05/07/2012 GIACOMO SANDOVAL MD 250.00 DIABETES II CONTROLLED (UNCOMPLICATED) 05/07/2012 GIACOMO SANDOVAL MD COPD 05/07/2012 MILEY FUNES APRN 250.00 DIABETES II CONTROLLED (UNCOMPLICATED) 05/07/2012 MILEY FUNES APRN A 496 COPD 05/07/2012 MCKENNA HEBERT APRN 250.00 DIABETES II CONTROLLED (UNCOMPLICATED) 05/07/2012 MCKENNA HEBERT APRN 496 COPD 05/07/2012 MCKENNA HEBERT APRN 250.00 DIABETES II CONTROLLED (UNCOMPLICATED) 05/07/2012 MCKENNA HEBERT APRN 49Rylan COPD 05/07/2012 MCKENNA HEBERT APRN 250.00 DIABETES II CONTROLLED (UNCOMPLICATED) 05/07/2012 MCKENNA HEBERT APRN 49Rylan COPD 05/07/2012 MCKENNA HEBERT APRN 250.00 DIABETES [...] MCKENNA HEBERT APRN T 496 COPD 05/07/2012 GIACOMO SANDOVAL MD [...] MCKENNA HEBERT APRN T 496 COPD 05/07/2012 GIACOMO SANDOVAL MD [...] MCKENNA HEBERT APRN T 496 COPD 05/07/2012 MCKENNA HEBERT APRN T 250.00 DIABETES II CONTROLLED (UNCOMPLICATED) 05/07/2012 EMILEE LONG, MCKENNA T 496 COPD 05/20/2012 EMILEE LONG, MCKENNA T 782.3 EDEMA 05/20/2012 782.3 EDEMA [...] MD 782.3 EDEMA 05/20/2012 MARIN LONG, MILEY Brown 782.3 EDEMA 05/20/2012 EMILEE LONG, MCKENNA T [...] LONG, MCKENNA T 782.3 EDEMA 05/20/2012 EMI[employer] INSURANCE SPECIALIST, MCKENNA T 782.3 EDEMA 05/20/2012 MCKENNA HEBERT [...] MD 586 RENAL FAILURE UNSPECIFIED 06/20/2012 EMILEE LONG, MCKENNA T 586 RENAL FAILURE UNSPECIFIED 06/20/2012 GIACOMO SANDOVAL MD 586 RENAL FAILURE UNSPECIFIED 06/20/2012 EMILEE LONG, MCKENNA T 586 RENAL FAILURE UNSPECIFIED 06/20/2012 GIACOMO SANDOVAL MD 586 RENAL FAILURE UNSPECIFIED 06/20/2012 E[employer] INSURANCE SPECIALIST, MCKENNA T 586 RENAL FAILURE UNSPECIFIED 06/20/2012 E[employer] INSURANCE SPECIALIST, MCKENNA T 586 RENAL FAILURE UNSPECIFIED 06/20/2012 E[employer] INSURANCE SPECIALIST, MCKENNA T 586 RENAL FAILURE UNSPECIFIED 06/20/2012 E[employer] INSURANCE SPECIALIST, MCKENNA T 586 RENAL FAILURE UNSPECIFIED 06/20/2012 EMILEE LONG, MCKENNA T 586 RENAL FAILURE UNSPECIFIED 06/20/2012 GIACOMO SANDOVAL MD 586 RENAL FAILURE UNSPECIFIED 06/20/2012 EMILEE LONG, MCKENNA T 586 RENAL FAILURE UNSPECIFIED 06/20/2012 E[employer] INSURANCE SPECIALIST, MCKENNA T 586 RENAL FAILURE UNSPECIFIED 06/20/2012 E[employer] INSURANCE SPECIALIST, MCKENNA T 586 RENAL FAILURE UNSPECIFIED 06/20/2012 E[employer] INSURANCE SPECIALIST, MCKENNA T 586 RENAL FAILURE UNSPECIFIED 06/20/2012 E[employer] INSURANCE SPECIALIST, MCKENNA T 586 RENAL FAILURE UNSPECIFIED 06/20/2012 E[employer] INSURANCE SPECIALIST, MCKENNA T 586 RENAL FAILURE UNSPECIFIED 06/20/2012 EMILEE LONG, MCKENNA T 586 RENAL FAILURE UNSPECIFIED 06/20/2012 EMILEE LONG, MCKENNA T 586 RENAL FAILURE UNSPECIFIED 09/03/2012 272.4 [...] MCKENNA HEBERT APRN T 272.4 DYSLIPIDEMIA 09/03/2012 EMILEE LONG, MCKENNA T 401.9 HYPERTENSION, UNSPECIFIED ESSENTIAL 09/03/2012 EMILEE LONG, MCKENNA T 428.0 CONGESTIVE HEART FAILURE UNSPECIFIED 09/03/2012 JONNIE ADORNO MD N 272.4 DYSLIPIDEMIA 09/03/2012 JONNIE ADRONO MD N 401.9 HYPERTENSION, UNSPECIFIED ESSENTIAL 09/03/2012 [...] MARIN LONG, MILEY A 272.4 DYSLIPIDEMIA 09/03/2012 MILEY FUNES APRN A 401.9 HYPERTENSION, UNSPECIFIED ESSENTIAL 09/03/2012 ELLEN [...] EMILEE LONG, MCKENNA T 272.4 DYSLIPIDEMIA 09/03/2012 MCKENNA HEBERT APRN T 401.9 HYPERTENSION, UNSPECIFIED ESSENTIAL 09/03/2012 EMILEE LONG, MCKENNA T 428.0 CONGESTIVE HEART FAILURE UNSPECIFIED 09/03/2012 GIACOMO SANDOVAL MD 272.4 DYSLIPIDEMIA 09/03/2012 GIACOMO SANDOVAL MD 401.9 HYPERTENSION, UNSPECIFIED ESSENTIAL 09/03/2012 GIACOMO SANDOVAL MD 428.0 CONGESTIVE HEART FAILURE UNSPECIFIED 09/03/2012 MCKENNA HEBERT APRN T 272.4 DYSLIPIDEMIA 09/03/2012 MCKENNA HEBERT APRN T 401.9 HYPERTENSION, UNSPECIFIED ESSENTIAL 09/03/2012 EMILEE LONG MCKENNA T 428.0 CONGESTIVE HEART FAILURE UNSPECIFIED 09/03/2012 GIACOMO SANDOVAL MD 272.4 DYSLIPIDEMIA 09/03/2012 GIACOMO SANDOVAL MD 401.9 HYPERTENSION, UNSPECIFIED ESSENTIAL 09/03/2012 GIACOMO SANDOVAL MD 428.0 CONGESTIVE HEART FAILURE UNSPECIFIED 09/03/2012 MCKENNA HEBERT APRN T 272.4 DYSLIPIDEMIA 09/03/2012 EMILEE LONG MCKENNA T 401.9 HYPERTENSION, UNSPECIFIED ESSENTIAL 09/03/2012 EMILEE LONG, MCKENNA T 428.0 CONGESTIVE HEART FAILURE UNSPECIFIED 09/03/2012 EMILEE LONG MCKENNA T 272.4 DYSLIPIDEMIA 09/03/2012 EMILEE LONG MCKENNA T 401.9 HYPERTENSION, UNSPECIFIED ESSENTIAL 09/03/2012 EMILEE LONG, MCKENNA T 428.0 CONGESTIVE HEART FAILURE UNSPECIFIED 09/03/2012 EMILEE LONG, MCKENNA T 272.4 DYSLIPIDEMIA 09/03/2012 EMILEE LONG, MCKENNA T 401.9 HYPERTENSION, UNSPECIFIED ESSENTIAL 09/03/2012 EMILEE LONG, MCKENNA T 428.0 CONGESTIVE HEART FAILURE UNSPECIFIED 09/03/2012 EMILEE LONG MCKENNA T 272.4 DYSLIPIDEMIA 09/03/2012 EMILEE LONG MCKENNA T 401.9 HYPERTENSION, UNSPECIFIED ESSENTIAL 09/03/2012 EMILEE LONG MCKENNA T 428.0 CONGESTIVE HEART FAILURE UNSPECIFIED 09/03/2012 EMILE[employer] INSURANCE SPECIALIST, MCKENNA T 272.4 DYSLIPIDEMIA 09/03/2012 EMILE[employer] INSURANCE SPECIALIST, MCKENNA T 401.9 HYPERTENSION, UNSPECIFIED ESSENTIAL 09/03/2012 EMILE[employer] GROUP INSURANCE SPECIALIST, MCKENNA T 428.0 CONGESTIVE HEART FAILURE UNSPECIFIED 09/03/2012 GIACOMO SANDOVAL MD 272.4 DYSLIPIDEMIA 09/03/2012 GIACOMO SANDOVAL MD 401.9 HYPERTENSION, UNSPECIFIED ESSENTIAL 09/03/2012 GIACOMO SANDOVAL MD 428.0 CONGESTIVE HEART FAILURE UNSPECIFIED 09/03/2012 EMILE[employer] INSURANCE SPECIALIST, MCKENNA T 272.4 DYSLIPIDEMIA 09/03/2012 EMILEE GROUP INSURANCE SPECIALIST, MCKENNA T 401.9 HYPERTENSION, UNSPECIFIED ESSENTIAL 09/03/2012 EMILE[employer] INSURANCE SPECIALIST, MCKENNA T 428.0 CONGESTIVE HEART FAILURE UNSPECIFIED 09/03/2012 EMILE[employer] INSURANCE SPECIALIST, MCKENNA T 272.4 DYSLIPIDEMIA 09/03/2012 EMILE[employer] INSURANCE SPECIALIST, MCKENNA T 401.9 HYPERTENSION, UNSPECIFIED ESSENTIAL 09/03/2012 EMILE[employer] GROUP INSURANCE SPECIALIST, MCKENNA T 428.0 CONGESTIVE HEART FAILURE UNSPECIFIED 09/03/2012 EMILEE GROUP INSURANCE SPECIALIST, MCKENNA T 272.4 DYSLIPIDEMIA 09/03/2012 EMILE[employer] GROUP INSURANCE SPECIALIST, MCKENNA T 401.9 HYPERTENSION, UNSPECIFIED ESSENTIAL 09/03/2012 EMILEE GROUP INSURANCE SPECIALIST, MCKENNA T 428.0 CONGESTIVE HEART FAILURE UNSPECIFIED 09/03/2012 EMILE[employer] GROUP INSURANCE SPECIALIST, MCKENNA T 272.4 DYSLIPIDEMIA 09/03/2012 EMILEE GROUP INSURANCE SPECIALIST, MCKENNA T 401.9 HYPERTENSION, UNSPECIFIED ESSENTIAL 09/03/2012 EMILEE GROUP INSURANCE SPECIALIST, MCKENNA T 428.0 CONGESTIVE HEART FAILURE UNSPECIFIED 09/03/2012 EMILEE GROUP INSURANCE SPECIALIST, MCKENNA T 272.4 DYSLIPIDEMIA 09/03/2012 EMILEE GROUP INSURANCE SPECIALIST, MCKENNA T 401.9 HYPERTENSION, UNSPECIFIED ESSENTIAL 09/03/2012 EMILEE GROUP INSURANCE SPECIALIST, MCKENNA T 428.0 CONGESTIVE HEART FAILURE UNSPECIFIED 09/03/2012 EMILEE GROUP INSURANCE SPECIALIST, MCKENNA T 272.4 DYSLIPIDEMIA 09/03/2012 EMILEE GROUP INSURANCE SPECIALIST, MCKENNA T 401.9 HYPERTENSION, UNSPECIFIED ESSENTIAL 09/03/2012 EMILEE GROUP INSURANCE SPECIALIST, MCKENNA T 428.0 CONGESTIVE HEART FAILURE UNSPECIFIED 09/03/2012 EMILEE GROUP INSURANCE SPECIALIST, MCKENNA T 272.4 DYSLIPIDEMIA 09/03/2012 EMILE[employer] GROUP INSURANCE SPECIALIST, MCKENNA T 401.9 HYPERTENSION, UNSPECIFIED ESSENTIAL 09/03/2012 EMILEE GROUP INSURANCE SPECIALIST, MCKENNA T 428.0 CONGESTIVE HEART FAILURE UNSPECIFIED 09/03/2012 EMILEE GROUP INSURANCE SPECIALIST, MCKENNA T 272.4 DYSLIPIDEMIA 09/03/2012 EMILE[employer] INSURANCE SPECIALIST, MCKENNA T 401.9 HYPERTENSION, UNSPECIFIED ESSENTIAL 09/03/2012 MCKENNA HEBERT APRN T 428.0 CONGESTIVE HEART FAILURE UNSPECIFIED 10/15/2012 425.4 CARDIOMYOPHATHY 10/15/2012 786.09 DYSPNEA 10/15/2012 425.4 CARDIOMYOPHATHY 10/15/2012 786.09 DYSPNEA 10/15/2012 MCKENNA HEBERT APRN T 425.4 CARDIOMYOPHATHY 10/15/2012 MCKENNA HEBERT APRN T 786.09 DYSPNEA 10/15/2012 JONNIE ADORNO MD 425.4 CARDIOMYOPHATHY 10/15/2012 JONNIE ADORNO MD 786.09 DYSPNEA 10/15/2012 HURTADO DO ZAINA K 425.4 CARDIOMYOPHATHY 10/15/2012 HURTADO DO, ZAINA K 786.09 DYSPNEA 10/15/2012 GIACOMO SANDOVAL MD 425.4 CARDIOMYOPHATHY 10/15/2012 GIACOMO SANDOVAL MD 786.09 DYSPNEA 10/15/2012 MILEY FUNES APRN A 425.4 CARDIOMYOPHATHY 10/15/2012 MILEY FUNES APRN A 786.09 DYSPNEA 10/15/2012 MCKENNA HEBERT APRN T 425.4 CARDIOMYOPHATHY 10/15/2012 MCKENNA HEBERT APRN T 786.09 DYSPNEA 10/15/2012 MCKENNA HEBERT APRN T 425.4 CARDIOMYOPHATHY 10/15/2012 MCKENNA HEBERT APRN T 786.09 DYSPNEA 10/15/2012 MCKENNA HEBERT APRN T 425.4 CARDIOMYOPHATHY 10/15/2012 MCKENNA HEBERT APRN T 786.09 DYSPNEA 10/15/2012 MCKENNA HEBERT APRN T 425.4 CARDIOMYOPHATHY 10/15/2012 MCKENNA HEBERT APRN T 786.09 DYSPNEA 10/15/2012 GIACOMO SANDOVAL MD 425.4 CARDIOMYOPHATHY 10/15/2012 GIACOMO SANDOVAL MD 786.09 DYSPNEA 10/15/2012 MCKENNA HEBERT APRN T 425.4 CARDIOMYOPHATHY 10/15/2012 MCKENNA HEBERT APRN T 786.09 DYSPNEA 10/15/2012 GIACOMO SANDOVAL MD 425.4 CARDIOMYOPHATHY 10/15/2012 GIACOMO SANDOVAL MD 786.09 DYSPNEA 10/15/2012 MCKENNA HEBERT APRN T 425.4 CARDIOMYOPHATHY 10/15/2012 MCKENNA HEBERT APRN T 786.09 DYSPNEA 10/15/2012 GIACOMO SANDOVAL MD 425.4 CARDIOMYOPHATHY 10/15/2012 GIACOMO SANDOVAL MD 786.09 DYSPNEA 10/15/2012 EMILE[employer] INSURANCE SPECIALIST, MCKENNA T 425.4 CARDIOMYOPHATHY 10/15/2012 EMILEE GROUP INSURANCE SPECIALIST, MCKENNA T 786.09 DYSPNEA 10/15/2012 EMILEE GROUP INSURANCE SPECIALIST, MCKENNA T 425.4 CARDIOMYOPHATHY 10/15/2012 EMILEE GROUP INSURANCE SPECIALIST, MCKENNA T 786.09 DYSPNEA 10/15/2012 EMILEE GROUP INSURANCE SPECIALIST, MCKENNA T 425.4 CARDIOMYOPHATHY 10/15/2012 EMILEE GROUP INSURANCE SPECIALIST, MCKENNA T 786.09 DYSPNEA 10/15/2012 EMILEE GROUP INSURANCE SPECIALIST, MCKENNA T 425.4 CARDIOMYOPHATHY 10/15/2012 EMILEE LONG, MCKENNA T 786.09 DYSPNEA 10/15/2012 EMILEE GROUP INSURANCE SPECIALIST, MCKENNA T 425.4 CARDIOMYOPHATHY 10/15/2012 EMILEE LONG, MCKENNA T 786.09 DYSPNEA 10/15/2012 GIACOMO SANDOVAL MD 425.4 CARDIOMYOPHATHY 10/15/2012 GIACOMO SANDOVAL MD 786.09 DYSPNEA 10/15/2012 EMILEE MCGUIREN, MCKENNA T 425.4 CARDIOMYOPHATHY 10/15/2012 EMILEE GROUP INSURANCE SPECIALIST, MCKENNA T 786.09 DYSPNEA 10/15/2012 EMILEE GROUP INSURANCE SPECIALIST, MCKENNA T 425.4 CARDIOMYOPHATHY 10/15/2012 EMILEE MCGUIREN, MCKENNA T 786.09 DYSPNEA 10/15/2012 EMILEE GROUP INSURANCE SPECIALIST, MCKENNA T 425.4 CARDIOMYOPHATHY 10/15/2012 EMILEE GROUP INSURANCE SPECIALIST, MCKENNA T 786.09 DYSPNEA 10/15/2012 EMILEE GROUP INSURANCE SPECIALIST, MCKENNA T 425.4 CARDIOMYOPHATHY 10/15/2012 EMILEE LONG, MCKENNA T 786.09 DYSPNEA 10/15/2012 EMILEE GROUP INSURANCE SPECIALIST, MCKENNA T 425.4 CARDIOMYOPHATHY 10/15/2012 EMILEE GROUP INSURANCE SPECIALIST, MCKENNA T 786.09 DYSPNEA 10/15/2012 EMILEE GROUP INSURANCE SPECIALIST, MCKENNA T 425.4 CARDIOMYOPHATHY 10/15/2012 EMILEE GROUP INSURANCE SPECIALIST, MCKENNA T 786.09 DYSPNEA 10/15/2012 EMILEE GROUP INSURANCE SPECIALIST, MCKENNA T 425.4 CARDIOMYOPHATHY 10/15/2012 EMILEE GROUP INSURANCE SPECIALIST, MCKENNA T 786.09 DYSPNEA 10/15/2012 EMILEE GROUP INSURANCE SPECIALIST, MCKENNA T 425.4 CARDIOMYOPHATHY 10/15/2012 EMILEE LONG, MCKENNA T 786.09 DYSPNEA 11/19/2012 LORI RAMSEY, GIACOMO Del Rosario Ot 250.00 DIAB JESUS WO COMPL, TYPE II OR UNSPEC TY 11/19/2012 GIACOMO SANDOVAL MD Ot 272.4 HYPERLIPIDEMIA NEC/NOS 11/19/2012 GIACOMO SANDOVAL MD Ot 276.2 ACIDOSIS 11/19/2012 GIACOMO SANDOVAL MD Ot 276.7 HYPERPOTASSEMIA 11/19/2012 GIACMOO SANDOVAL MD Ot 285.21 ANEMIA IN CHRONIC [...] 112.3 CANDIDIASIS OF SKIN AND NAILS 03/04/2013 GIACMOO SANDOVAL MD V76.10 BREAST CANCER SCREENING 03/04/2013 [...] 112.3 CANDIDIASIS OF SKIN AND NAILS 03/04/2013 EMILE[employer] INSURANCE SPECIALIST, MCKENNA T V76.10 BREAST CANCER SCREENING 03/04/2013 EMILEE LONG, MCKENNA T 112.3 CANDIDIASIS OF SKIN AND NAILS 03/04/2013 MCKENNA HEBERT APRN T V76.10 BREAST CANCER SCREENING 03/04/2013 EMILEE LONG MCKENNA T 112.3 CANDIDIASIS OF SKIN AND NAILS 03/04/2013 MCKENNA HEBERT APRN T V76.10 BREAST CANCER SCREENING 03/04/2013 MCKENNA HEBERT APRN T 112.3 CANDIDIASIS OF SKIN AND NAILS 03/04/2013 MCKENNA HEBERT APRN T V76.10 BREAST CANCER SCREENING 03/04/2013 EMILEE LONG MCKENNA T 112.3 CANDIDIASIS OF SKIN AND NAILS [...] EMILEE LONG MCKENNA T 784.0 HEADACHE 03/30/2013 MCKENNA HEBERT APRN T 784.0 HEADACHE 03/30/2013 MCKENNA HEBERT APRN T 784.0 HEADACHE 03/30/2013 GIACOMO SANDOVAL MD 784.0 HEADACHE 03/30/2013 MCKENNA HEBERT APRN T 784.0 HEADACHE 03/30/2013 MCKENNA HEBERT APRN T 784.0 HEADACHE 03/30/2013 MCKENNA HEBERT APRN T 784.0 HEADACHE 03/30/2013 MCKENNA HEBERT APRN T 784.0 HEADACHE 03/30/2013 EMILEE LONG, MCKENNA T 784.0 HEADACHE 03/30/2013 EMILEE MCGUIREN, MCKENNA T 784.0 HEADACHE 03/30/2013 EMILEE MCGUIREN, MCKENNA T 784.0 HEADACHE 03/30/2013 EMILEE MCGUIREN, MCKENNA T 784.0 HEADACHE 04/09/2013 MCKENNA HEBERT APRN [...] COUGH 04/27/2013 MCKENNA HEBERT APRN 786.2 COUGH 05/13/2013 MCKENNA HEBERT APRN 250.40 [...] APRN 401.1 BENIGN ESSENTIAL HYPERTENSION 05/13/2013 MCKENNA HEBETR APRN 585.4 CHRONIC KIDNEY DISEASE STAGE IV (SEVERE) 05/13/2013 MCKENNA HEBERT APRN 588.0 RENAL OSTEODYSTROPHY 05/13/2013 MCKENNA HEBETR APRN 791.0 PROTEINURIA 05/13/2013 MCKENNA HEBERT APRN [...] 588.0 RENAL OSTEODYSTROPHY 05/13/2013 MCKENNA HEBERT APRN T 791.0 PROTEINURIA 05/13/2013 MCKENNA HEBERT APRN 250.40 [...] 588.0 RENAL OSTEODYSTROPHY 05/13/2013 MCKENNA HEBERT APRN T 791.0 PROTEINURIA 05/13/2013 GIACOMO SANDOVAL MD 250.40 [...] HEBERT APRN 401.1 BENIGN ESSENTIAL HYPERTENSION 05/13/2013 CMKENNA HEBERT APRN 585.4 CHRONIC KIDNEY DISEASE STAGE [...] 05/13/2013 MCKENNA HEBERT APRN 791.0 PROTEINURIA 05/13/2013 [employer] INSUR[employer] SPECIALIST, MCKENNA T 250.40 DIABETES WITH RENAL MANIFESTATIONS TYPE [...] 05/13/2013 MCKENNA HEBERT APRN 791.0 PROTEINURIA 06/19/2013 TATIANA HURTADO DOA K Ot 250.00 DIAB JESUS WO COMPL, TYPE II OR UNSPEC TY 06/19/2013 TATIANA HURTADO DOA K Ot 276.1 HYPOSMOLALITY 06/19/2013 TATIANA HURTADO DOA K Ot 354.0 CARPAL TUNNEL SYNDROME 06/19/2013 TATIANA HURTADO DOA K Ot 403.90 HYPTNSV CHR KID DIS, UNSPEC, W CHR KD ST 06/19/2013 TATIANA HURTADO DOA K Ot 486 PNEUMONIA, ORGANISM NOS 06/19/2013 GENESIS TOBAR ZAINA K Ot 493.92 ASTHMA, UNSPECIFIED, W (ACUTE) EXACERBAT 06/19/2013 TATIANA HURTADO DOA K Ot 584.9 ACUTE RENAL FAILURE, UNSPECIFIED 06/19/2013 GENESIS TOBAR ZAINA K Ot 585.4 CHRONIC KIDNEY DISEASE, STAGE IV (SEVERE 06/19/2013 GENESIS TOBAR ZAINA K Ot 799.02 HYPOXEMIA 06/19/2013 TATIANA HURTADO DOA K Ot V58.67 LONG-TERM (CURRENT) USE OF INSULIN 07/08/2013 LORI PENALOZA DO Ramos Ot 250.80 DIAB W OTH SPEC MANIFEST, TYPE II OR UNS 07/08/2013 TREMAINE TOBAR LORI Ramos Ot 251.2 HYPOGLYCEMIA NOS 09/09/2013 GIACOMO SANDOVAL [...] T 894.0 WOUND OPEN LOWER LIMB 09/28/2013 GIACOMO SANDOVAL MD 894.0 WOUND OPEN LOWER LIMB 09/28/2013 MCKENNA [...] TANVIR Beasley Ot 514 PULM CONGEST/HYPOSTASIS 10/01/2013 TANVIR BOSS MD Ot 585.9 CHRONIC KIDNEY DISEASE, UNSPECIFIED 10/15/2013 BARON CHISHOLM MD Ot 250.00 DIAB JESUS WO COMPL, TYPE II OR UNSPEC TY 10/15/2013 BARON CHISHOLM MD Ot 272.4 HYPERLIPIDEMIA NEC/NOS 10/15/2013 BARON CHISHOLM MD Ot 278.01 MORBID OBESITY 10/15/2013 BARON CHISHOLM MD Ot 285.21 ANEMIA IN CHRONIC KIDNEY DISEASE 10/15/2013 BARON CHISHOLM MD Ot 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, UNSPEC, W CHR KD ST 10/15/2013 BARON CHISHOLM MD Ot 428.0 CONGESTIVE HEART FAILURE NOS 10/15/2013 BARON CHISHOLM MD Ot 440.24 ATHEROSCL [place] ARTERIES EXTREMITIES W 10/15/2013 BARON CHISHOLM MD Ot 585.6 END STAGE RENAL DISEASE 10/15/2013 BARON CHISHOLM MD Ot 786.09 RESPIRATORY ABNORM NEC 10/15/2013 BARON CHISHOLM MD Ot V45.11 RENAL DIALYSIS STATUS 10/15/2013 BARON CHISHOLM MD Ot V85.42 BODY MASS INDEX 45.0-49.9, ADULT 11/21/2013 FRANCOISE ODOM MD E Ot 111.9 DERMATOMYCOSIS NOS 11/21/2013 FRANCOISE ODOM MD E Ot 250.80 DIAB W OTH SPEC MANIFEST, TYPE II OR UNS 11/21/2013 FRANCOISE ODOM MD Ot 272.4 HYPERLIPIDEMIA NEC/NOS 11/21/2013 FRANCOISE ODOM MD Ot 276.1 HYPOSMOLALITY 11/21/2013 FRANCOISE ODOM MD Ot 278.00 OBESITY, NOS 11/21/2013 FRANCOISE ODOM MD E Ot 285.29 ANEMIA OF OTHER CHRONIC DISEASE 11/21/2013 FRANCOISE ODOM MD Ot 327.23 OBSTRUCTIVE SLEEP APNEA (ADULT) (PEDIATR 11/21/2013 FRANCOISE ODOM MD Ot 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, UNSPEC, W CHR KD ST 11/21/2013 FRANCOISE ODOM MD E Ot 428.0 CONGESTIVE HEART FAILURE NOS 11/21/2013 FRANCOISE ODOM MD E Ot 440.20 ATHEROSCLEROSIS [place] ARTERIES EXTREMIT 11/21/2013 FRANCOISE ODOM MD Ot 496 CHR AIRWAY OBSTRUCT NEC 11/21/2013 FRANCOISE ODOM MD E Ot 585.6 END STAGE RENAL DISEASE 11/21/2013 FRANCOISE ODOM MD Ot 824.8 FX ANKLE NOS-CLOSED 11/21/2013 FRANCOISE ODOM MD Ot 997.69 AMPUT STUMP COMPLIC,NEC 11/21/2013 FRANCOISE ODOM MD E Ot E849.7 ACCID IN RESIDENT INSTIT 11/21/2013 [...] POST SURGERY CIRULATORY SYSTEM 11/21/2013 FRANCOISE ODOM MD Ot V85.41 BODY MASS INDEX 40.0-44.9, ADULT [...] Ot V45.11 RENAL DIALYSIS STATUS 07/31/2014 TREMAINE , LORI K Ot V58.67 LONG-TERM (CURRENT) USE OF INSULIN 07/31/2014 TREMAINE LORI K Ot V58.69 OTH MED,LT,CURRENT USE [...] 786.05 SHORTNESS OF BREATH 01/14/2015 ARLETTE DURÁN MD Ot E13.22 OTH DIABETES MELLITUS WITH DIABETIC CROOK OPERATOR 01/14/2015 ARLETTE DURÁN MD Ot I12.0 HYP CHR KIDNEY DISEASE W STAGE 5 CHR KID 01/14/2015 ARLETTE DURÁN MD Ot N18.6 END STAGE RENAL DISEASE 01/14/2015 ARLETTE DURÁN MD Ot R07.9 CHEST PAIN, UNSPECIFIED 01/14/2015 ARLETTE DURÁN MD Ot Z79.4 FDC (CURRENT) USE OF INSULIN 01/14/2015 ARLETTE DURÁN MD Ot Z99.2 DEPENDENCE ON RENAL DIALYSIS 01/15/2015 ZAINA HURTADO DO Ot D63.8 ANEMIA IN OTHER CHRONIC DISEASES CLASSIF 01/15/2015 ZAINA HURTADO DO Ot 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 01/15/2015 ZAINA HURTADO DO Ot E11.65 TYPE 2 DIABETES MELLITUS WITH HYPERGLYCE 01/15/2015 ZAINA HURTADO DO Ot I10 ESSENTIAL (PRIMARY) HYPERTENSION 01/15/2015 TATIANA HURTADO DOA Ramos Ot I25.10 ATHSCL HEART DISEASE OF [place] CORONARY 01/15/2015 ZAINA HURTADO DO Ot I73.9 PERIPHERAL VASCULAR DISEASE, UNSPECIFIED 01/15/2015 GENESIS TOBAR ZAINA Ramos Ot J44.9 CHRONIC OBSTRUCTIVE PULMONARY DISEASE, U 01/15/2015 GENESIS TOBAR ZAINA Ramos Ot N18.6 END STAGE RENAL DISEASE 01/15/2015 GENESIS TOBAR ZAINA K Ot R07.9 CHEST PAIN, UNSPECIFIED 01/15/2015 GENESIS TOBAR ZAINA Ramos Ot R79.89 OTHER SPECIFIED ABNORMAL FINDINGS OF BLO 01/15/2015 GENESIS TOBAR ZAINA Ramos Ot Z91.19 PATIENT'S NONCOMPLIANCE W [facility] MEDICAL TR 01/15/2015 GENESIS TOBAR ZAINA K Ot Z99.2 DEPENDENCE ON RENAL DIALYSIS 03/20/2015 [...] WHEELCHAIR, INITIAL 03/20/2015 ROMANA BRAN Ot Y92.009 [facility] PLACE IN [facility] NON-INSTITUT (PRIVATE 03/20/2015 ROMANA BRAN Ot Y99.8 OTHER EXTERNAL CAUSE STATUS 03/20/2015 ROMANA BRAN Ot Z79.4 SHAPER MACHINE HAND (CURRENT) USE OF INSULIN 03/20/2015 ROMANA BRAN Ot Z89.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 03/20/2015 ROMANA BRAN Ot Z99.2 DEPENDENCE ON RENAL DIALYSIS 03/23/2015 VERA HERNÁNDEZ MD, Ot D63.1 ANEMIA IN CHRONIC KIDNEY DISEASE 03/23/2015 VERA HERNÁNDEZ MD Ot E11.9 TYPE 2 DIABETES MELLITUS WITHOUT COMPLIC 03/23/2015 VERA HERNÁNDEZ MD Ot E87.5 HYPERKALEMIA 03/23/2015 VERA HERNÁNDEZ MD Ot I12.0 HYP CHR KIDNEY DISEASE W STAGE 5 CHR KID 03/23/2015 VERA HERNÁNDEZ MD, Ot N18.6 END STAGE RENAL DISEASE 03/23/2015 VERA HERNÁNDEZ MD, Ot R11.2 NAUSEA WITH VOMITING, UNSPECIFIED 03/23/2015 VERA HERNÁNDEZ MD, Ot S72.92XD UNSP FRACTURE OF LEFT FEMUR, SUBS FOR CL 03/23/2015 VERA HERNÁNDEZ MD, Ot Z79.4 SHAPER MACHINE HAND (CURRENT) USE OF INSULIN 03/23/2015 VERA HERNÁNDEZ MD, Ot Z89.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 03/23/2015 VERA HERNÁNDEZ MD, Ot Z99.2 DEPENDENCE ON RENAL DIALYSIS 04/23/2015 MCKENNA BARRON DO Ot E11.9 TYPE 2 DIABETES MELLITUS WITHOUT COMPLIC 04/23/2015 MCKENNA BARRON DO, Ot I12.0 HYP CHR KIDNEY DISEASE W STAGE 5 CHR KID 04/23/2015 MCKENNA BARRON DO, Ot J44.9 CHRONIC OBSTRUCTIVE PULMONARY DISEASE, U 04/23/2015 MCKENNA BARRON DO Ot N18.6 END STAGE RENAL DISEASE 04/23/2015 MCKENNA BARRON DO Ot R06.00 DYSPNEA, UNSPECIFIED 04/23/2015 MCKENNA BARRON DO Ot Z79.4 SHAPER MACHINE HAND (CURRENT) USE OF INSULIN 04/23/2015 MCKENNA BARRON [...] DO Ot I25.10 ATHSCL HEART DISEASE OF [place] CORONARY 10/02/2015 ZAINA HURTADO DO Ot I73.9 PERIPHERAL VASCULAR DISEASE, UNSPECIFIED 10/02/2015 ZAINA HURTADO DO Ot J44.9 CHRONIC OBSTRUCTIVE PULMONARY DISEASE, U 10/02/2015 HURTADO DO, ZAINA K Ot N18.6 END STAGE RENAL DISEASE 10/02/2015 HURTADO DO ZAINA K Ot R07.9 CHEST PAIN, UNSPECIFIED 10/02/2015 HURTADO DOTATIANAA K Ot Z68.42 BODY MASS INDEX (BMI) 45.0-49.9, ADULT 10/02/2015 HURTADO DO ZAINA K Ot Z79.4 SHAPER MACHINE HAND (CURRENT) USE OF INSULIN 10/02/2015 HURTADO DO ZAINA K Ot Z87.891 PERSONAL HISTORY OF NICOTINE DEPENDENCE 10/02/2015 HURTADO DO ZAINA K Ot Z89.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 10/02/2015 HURTADO DO ZAINA K Ot Z99.2 DEPENDENCE ON RENAL DIALYSIS 10/02/2015 HURTADO DO ZAINA K Ot Z99.3 DEPENDENCE ON WHEELCHAIR 10/02/2015 HURTADO DO ZAINA K Ot Z99.81 DEPENDENCE ON SUPPLEMENTAL OXYGEN 01/31/2016 ARLETTE DURÁN MD Ot E13.22 OTH DIABETES MELLITUS WITH DIABETIC CROOK OPERATOR 01/31/2016 ARLETTE DURÁN MD Ot I12.0 HYP CHR KIDNEY DISEASE W STAGE 5 CHR KID 01/31/2016 ARLETTE DURÁN MD Ot N18.6 END STAGE RENAL DISEASE 01/31/2016 ARLETTE DURÁN MD Ot R07.9 CHEST PAIN, UNSPECIFIED 01/31/2016 ARLETTE DURÁN MD Ot Z79.4 SHAPER MACHINE HAND (CURRENT) USE OF INSULIN 01/31/2016 ARLETTE DURÁN MD Ot Z99.2 DEPENDENCE ON RENAL DIALYSIS 02/21/2016 MCKENNA HEBERT Ot Z89.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 03/07/2016 MCKENNA HEBERT SOLDER MAKING SUPERVISOR Ot Z89.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 03/27/2016 MCKENNA HEBERTP Ot Z89.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 03/28/2016 MCKENNA HEBERTP Ot Z89.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 03/29/2016 MCKENNA HEBERTP Ot Z89.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 04/04/2016 TREMAINE DO LORI K Ot E11.621 TYPE 2 DIABETES MELLITUS WITH FOOT ULCER 04/04/2016 TREMAINE TOBAR LORI K Ot I12.0 HYP CHR KIDNEY DISEASE W STAGE 5 CHR KID 04/04/2016 TREMAINE DO, LORI K Ot I25.10 ATHSCL HEART DISEASE OF [place] CORONARY 04/04/2016 TREMAINE DO, LORI K Ot J44.9 CHRONIC OBSTRUCTIVE PULMONARY DISEASE, U 04/04/2016 TREMAINE DO, LORI K Ot L03.115 CELLULITIS OF RIGHT LOWER LIMB 04/04/2016 TREMAINE DO, LORI K Ot N18.6 END STAGE RENAL DISEASE 04/04/2016 TREMAINE DO, LORI K Ot R22.41 LOCALIZED SWELLING, MASS AND LUMP, RIGHT 04/04/2016 TREMAINE DO, LORI K Ot Z79.4 FDC (CURRENT) USE OF INSULIN 04/04/2016 TREMAINE DO, LORI K Ot Z79.82 FDC (CURRENT) USE OF ASPIRIN 04/04/2016 TREMAINE DO, LORI K Ot Z79.899 OTHER SHAPER MACHINE HAND (CURRENT) DRUG THERAPY 04/04/2016 TREMAINE DO, LORI K Ot Z99.2 DEPENDENCE ON RENAL DIALYSIS 04/05/2016 TREMAINE DO, LORI K Ot E11.621 TYPE 2 DIABETES MELLITUS WITH FOOT ULCER 04/05/2016 TREMAINE DO, LORI K Ot I12.0 HYP CHR KIDNEY DISEASE W STAGE 5 CHR KID 04/05/2016 TREMAINE DO, LORI K Ot I25.10 ATHSCL HEART DISEASE OF [place] CORONARY 04/05/2016 TREMAINE DO, LORI K Ot J44.9 CHRONIC OBSTRUCTIVE PULMONARY DISEASE, U 04/05/2016 TREMAINE DO, LORI K Ot L03.115 CELLULITIS OF RIGHT LOWER LIMB 04/05/2016 TREMAINE DO, LORI K Ot N18.6 END STAGE RENAL DISEASE 04/05/2016 TREMAINE DO, LORI K Ot R22.41 LOCALIZED SWELLING, MASS AND LUMP, RIGHT 04/05/2016 TREMAINE DO, LORI K Ot Z79.4 FDC (CURRENT) USE OF INSULIN 04/05/2016 TREMAINE DO, LORI K Ot Z79.82 [facility] (CURRENT) USE OF ASPIRIN 04/05/2016 TREMAINE DO, LORI K Ot Z79.899 OTHER SHAPER MACHINE HAND (CURRENT) DRUG THERAPY 04/05/2016 TREMAINE DO, LORI K Ot Z99.2 DEPENDENCE ON RENAL DIALYSIS 04/13/2016 TREMAINE DO, LORI K Ot E11.621 TYPE 2 DIABETES MELLITUS WITH FOOT ULCER 04/13/2016 TREMAINE DO, LORI K Ot I12.0 HYP CHR KIDNEY DISEASE W STAGE 5 CHR KID 04/13/2016 TREMAINE DO, LORI K Ot I25.10 ATHSCL HEART DISEASE OF [place] CORONARY 04/13/2016 TREMAINE DO, LORI K Ot J44.9 CHRONIC OBSTRUCTIVE PULMONARY DISEASE, U 04/13/2016 TREMAINE DO, LORI K Ot L03.115 CELLULITIS OF RIGHT LOWER LIMB 04/13/2016 TREMAINE DO, LORI K Ot N18.6 END STAGE RENAL DISEASE 04/13/2016 TREMAINE DO, LORI K Ot R22.41 LOCALIZED SWELLING, MASS AND LUMP, RIGHT 04/13/2016 TREMAINE DO, LORI K Ot Z79.4 [facility] (CURRENT) USE OF INSULIN 04/13/2016 TREMAINE DO, LORI K Ot Z79.82 [facility] (CURRENT) USE OF ASPIRIN 04/13/2016 TREMAINE DO, LORI K Ot Z79.899 OTHER SHAPER MACHINE HAND (CURRENT) DRUG THERAPY 04/13/2016 TREMAINE DO, LORI K Ot Z99.2 DEPENDENCE ON RENAL DIALYSIS 04/24/2016 VIKKI KWOK MD Ot L02.611 CUTANEOUS ABSCESS OF RIGHT FOOT 04/25/2016 MCKENNA HEBERT Ot Z89.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 04/30/2016 MCKENNA HEBERT Ot Z89.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 05/02/2016 ARLETTE DURÁN MD Ot E13.22 OTH DIABETES MELLITUS WITH DIABETIC CROOK OPERATOR 05/02/2016 ARLETTE DURÁN MD Ot I12.0 HYP CHR KIDNEY DISEASE W STAGE 5 CHR KID 05/02/2016 ARLETTE DURÁN MD Ot N18.6 END STAGE RENAL DISEASE 05/02/2016 ARLETTE DURÁN MD Ot R07.9 CHEST PAIN, UNSPECIFIED 05/02/2016 ARLETTE DURÁN MD Ot Z79.4 [facility] (CURRENT) USE OF INSULIN 05/02/2016 ARLETTE DURÁN MD Ot Z99.2 DEPENDENCE ON RENAL DIALYSIS 05/22/2016 VIKKI KWOK MD Ot L02.611 CUTANEOUS ABSCESS OF RIGHT FOOT 05/22/2016 VIKKI KWOK MD Ot L02.611 CUTANEOUS [...] FOOT ULCER 06/26/2016 PIETER POOLE MD Ot E11.621 TYPE 2 DIABETES MELLITUS WITH FOOT ULCER 06/26/2016 PIETER POOLE MD, Ot E11.621 TYPE 2 DIABETES MELLITUS WITH FOOT ULCER 06/26/2016 PIETER POOLE MD Ot 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 06/26/2016 PIETER POOLE MD Ot 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 06/26/2016 PIETER POOLE MD, Ot E11.621 TYPE 2 DIABETES MELLITUS WITH FOOT ULCER 06/26/2016 PIETER POOLE MD Ot 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 [...] 06/27/2016 LORETTA MARTINO APRN Ot 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 06/27/2016 LORETTA MARTINO APRN Ot I89.0 LYMPHEDEMA, NOT ELSEWHERE CLASSIFIED 06/27/2016 LORETTA MARTINO APRN Ot L97.512 NON-PRS CHRONIC ULCER OTH PRT RIGHT FOOT 06/27/2016 LORETTA MARTINO GROUP INSURANCE SPECIALIST Ot L97.513 NON-PRS CHRONIC ULCER OTH PRT RIGHT FOOT 06/27/2016 LORETTA MARTINO GROUP INSURANCE SPECIALIST Ot N18.6 END STAGE RENAL DISEASE 07/09/2016 GUNNER LORETTA R GROUP INSURANCE SPECIALIST Ot E11.621 TYPE 2 DIABETES MELLITUS WITH FOOT ULCER 07/09/2016 LORETTA MARTINO GROUP INSURANCE SPECIALIST Ot E66.01 MORBID (SEVERE) OBESITY DUE TO EXCESS CA 07/09/2016 LORETTA MARTINO GROUP INSURANCE SPECIALIST Ot I50.20 UNSPECIFIED SYSTOLIC (CONGESTIVE) HEART 07/09/2016 LORETTA MARTINO GROUP INSURANCE SPECIALIST Ot 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 07/09/2016 LORETTA MARTINO GROUP INSURANCE SPECIALIST Ot I89.0 LYMPHEDEMA, NOT ELSEWHERE CLASSIFIED 07/09/2016 LORETTA MARTINO GROUP INSURANCE SPECIALIST Ot L97.512 NON-PRS CHRONIC ULCER OTH PRT RIGHT FOOT 07/09/2016 LORETTA MARTINO GROUP INSURANCE SPECIALIST Ot L97.513 NON-PRS CHRONIC ULCER OTH PRT RIGHT FOOT 07/09/2016 LORETTA MARTINO GROUP INSURANCE SPECIALIST Ot N18.6 END STAGE RENAL DISEASE 07/24/2016 ADLA FERRARO SOLDER MAKING SUPERVISOR Ot 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 07/24/2016 ALDA FERRARO SOLDER MAKING SUPERVISOR Ot E66.01 MORBID (SEVERE) OBESITY DUE TO EXCESS CA 07/24/2016 ALDA FERRARO SOLDER MAKING SUPERVISOR Ot I12.0 HYP CHR KIDNEY DISEASE W STAGE 5 CHR KID 07/24/2016 ALDA FERRARO L SOLDER MAKING SUPERVISOR Ot I25.10 ATHSCL HEART DISEASE OF [place] CORONARY 07/24/2016 ALDA FERRARO L SOLDER MAKING SUPERVISOR Ot 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 [place] ARTERIES OF EXTREMITI 07/24/2016 ALDA FERRARO SOLDER MAKING SUPERVISOR Ot I70.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 07/24/2016 ALDA FERRARO SOLDER MAKING SUPERVISOR Ot L97.519 NON-PRS CHRONIC ULCER OTH PRT RIGHT FOOT 07/24/2016 ALDA FERRARO SOLDER MAKING SUPERVISOR Ot N18.5 CHRONIC KIDNEY DISEASE, STAGE 5 07/24/2016 ALDA FERRARO SOLDER MAKING SUPERVISOR Ot R06.00 DYSPNEA, UNSPECIFIED 07/24/2016 ALDA FERRARO SOLDER MAKING SUPERVISOR Ot Z68.43 BODY MASS INDEX (BMI) 50-59.9 , ADULT 07/24/2016 ALDA FERRARO SOLDER MAKING SUPERVISOR Ot Z79.899 OTHER SHAPER MACHINE HAND (CURRENT) DRUG THERAPY 07/24/2016 ALDA FERRARO SOLDER MAKING SUPERVISOR Ot Z89.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 07/24/2016 ALDA FERRARO SOLDER MAKING SUPERVISOR Ot Z99.2 DEPENDENCE ON RENAL DIALYSIS 07/31/2016 LORETTA MARTINO GROUP INSURANCE SPECIALIST Ot E11.621 TYPE 2 DIABETES MELLITUS WITH FOOT ULCER 07/31/2016 LORETTA MARTINO GROUP INSURANCE SPECIALIST Ot E66.01 MORBID (SEVERE) OBESITY DUE TO EXCESS CA 07/31/2016 LORETTA MARTINO GROUP INSURANCE SPECIALIST Ot I50.20 UNSPECIFIED SYSTOLIC (CONGESTIVE) HEART 07/31/2016 LORETTA MARTINO GROUP INSURANCE SPECIALIST Ot 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 07/31/2016 LORETTA MARTINO GROUP INSURANCE SPECIALIST Ot I89.0 LYMPHEDEMA, NOT ELSEWHERE CLASSIFIED 07/31/2016 LORETTA MARTINO GROUP INSURANCE SPECIALIST Ot L97.512 NON-PRS CHRONIC ULCER OTH PRT RIGHT FOOT 07/31/2016 LORETTA MARTINO GROUP INSURANCE SPECIALIST Ot L97.513 NON-PRS CHRONIC ULCER OTH PRT RIGHT FOOT 07/31/2016 LORETTA MARTINO GROUP INSURANCE SPECIALIST Ot N18.6 END STAGE RENAL DISEASE 08/17/2016 LORETTA MARTINO GROUP INSURANCE SPECIALIST Ot E11.621 TYPE 2 DIABETES MELLITUS WITH FOOT ULCER 08/17/2016 LORETTA MARTINO GROUP INSURANCE SPECIALIST Ot E66.01 MORBID (SEVERE) OBESITY DUE TO EXCESS CA 08/17/2016 LORETTA MARTINO GROUP INSURANCE SPECIALIST Ot I50.20 UNSPECIFIED SYSTOLIC (CONGESTIVE) HEART 08/17/2016 LORETTA MARTINO GROUP INSURANCE SPECIALIST Ot 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 08/17/2016 LORETTA MARTINO GROUP INSURANCE SPECIALIST Ot I89.0 LYMPHEDEMA, NOT ELSEWHERE CLASSIFIED 08/17/2016 LORETTA MARTINO GROUP INSURANCE SPECIALIST Ot L97.512 NON-PRS CHRONIC ULCER OTH PRT RIGHT FOOT 08/17/2016 LORETTA MARTINO GROUP INSURANCE SPECIALIST Ot L97.513 NON-PRS CHRONIC ULCER OTH PRT RIGHT FOOT 08/17/2016 LORETTA MARTINO GROUP INSURANCE SPECIALIST Ot N18.6 END STAGE RENAL DISEASE 08/23/2016 AUDRAALDA VALADEZ SOLDER MAKING SUPERVISOR Ot 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 08/23/2016 AUDRAALDA VALADEZ L SOLDER MAKING SUPERVISOR Ot E66.01 MORBID (SEVERE) OBESITY DUE TO EXCESS CA 08/23/2016 ALDA FERRARO SOLDER MAKING SUPERVISOR Ot I12.0 HYP CHR KIDNEY DISEASE W STAGE 5 CHR KID 08/23/2016 ALDA FERRARO SOLDER MAKING SUPERVISOR Ot I25.10 ATHSCL HEART DISEASE OF [place] CORONARY 08/23/2016 AUDRAALDA VALADEZ SOLDER MAKING SUPERVISOR Ot 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 [place] ARTERIES OF EXTREMITI 08/23/2016 AUDRAALDA VALADEZ SOLDER MAKING SUPERVISOR Ot I70.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 08/23/2016 AUDRAALLYSON ALDA L SOLDER MAKING SUPERVISOR Ot L97.519 NON-PRS CHRONIC ULCER OTH PRT RIGHT FOOT 08/23/2016 AUDRAALDA VALADEZ SOLDER MAKING SUPERVISOR Ot N18.5 CHRONIC KIDNEY DISEASE, STAGE 5 08/23/2016 AUDRAALDA VALADEZ SOLDER MAKING SUPERVISOR Ot R06.00 DYSPNEA, UNSPECIFIED 08/23/2016 AUDRAALDA VALADEZ L SOLDER MAKING SUPERVISOR Ot Z68.43 BODY MASS INDEX (BMI) 50-59.9 , ADULT 08/23/2016 AUDRAALDA VALADEZ L SOLDER MAKING SUPERVISOR Ot Z79.899 OTHER SHAPER MACHINE HAND (CURRENT) DRUG THERAPY 08/23/2016 AUDRAALDA VALADEZ L SOLDER MAKING SUPERVISOR Ot Z89.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 08/23/2016 AUDRAALDA VALADEZ L SOLDER MAKING SUPERVISOR Ot Z99.2 DEPENDENCE ON RENAL DIALYSIS 09/17/2016 LORETTA MARTINO GROUP INSURANCE SPECIALIST Ot E11.621 TYPE 2 DIABETES MELLITUS WITH FOOT ULCER 09/17/2016 LROETTA MARTINO GROUP INSURANCE SPECIALIST Ot E66.01 MORBID (SEVERE) OBESITY DUE TO EXCESS CA 09/17/2016 LORETTA MARTINO GROUP INSURANCE SPECIALIST Ot I50.20 UNSPECIFIED SYSTOLIC (CONGESTIVE) HEART 09/17/2016 LORETTA MARTINO GROUP INSURANCE SPECIALIST Ot 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 09/17/2016 LORETTA MARTINO GROUP INSURANCE SPECIALIST Ot I89.0 LYMPHEDEMA, NOT ELSEWHERE CLASSIFIED 09/17/2016 LORETTA MARTINO GROUP INSURANCE SPECIALIST Ot L97.512 NON-PRS CHRONIC ULCER OTH PRT RIGHT FOOT 09/17/2016 LORETTA MARTINO GROUP INSURANCE SPECIALIST Ot L97.513 NON-PRS CHRONIC ULCER OTH PRT RIGHT FOOT 09/17/2016 LORETTA MARTINO GROUP INSURANCE SPECIALIST Ot N18.6 END STAGE RENAL DISEASE 09/18/2016 LORETTA MARTINO GROUP INSURANCE SPECIALIST Ot E11.621 TYPE 2 DIABETES MELLITUS WITH FOOT ULCER 09/18/2016 LORETTA MARTINO GROUP INSURANCE SPECIALIST Ot E66.01 MORBID (SEVERE) OBESITY DUE TO EXCESS CA 09/18/2016 LORETTA MARTINO GROUP INSURANCE SPECIALIST Ot I50.20 UNSPECIFIED SYSTOLIC (CONGESTIVE) HEART 09/18/2016 LORETTA MARTINO GROUP INSURANCE SPECIALIST Ot 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 09/18/2016 LORETTA MARTINO GROUP INSURANCE SPECIALIST Ot I89.0 LYMPHEDEMA, NOT ELSEWHERE CLASSIFIED 09/18/2016 LORETTA MARTINO GROUP INSURANCE SPECIALIST Ot L97.512 NON-PRS CHRONIC ULCER OTH PRT RIGHT FOOT 09/18/2016 LORETTA MARTINO GROUP INSURANCE SPECIALIST Ot L97.513 NON-PRS CHRONIC ULCER OTH PRT RIGHT FOOT 09/18/2016 LORETTA MARTINO GROUP INSURANCE SPECIALIST Ot N18.6 END STAGE RENAL DISEASE 09/19/2016 Ot 272.4 HYPERLIPIDEMIA NEC/NOS 09/19/2016 Ot 401.9 HYPERTENSION NOS 09/19/2016 Ot V58.69 OTH MED,LT, CURRENT USE 09/19/2016 SUNDAR RAMSEY, VIKKI Jaffe Ot L02.611 CUTANEOUS ABSCESS OF RIGHT FOOT 09/19/2016 VIRGILIO RAMSEY, PIETER Lopez Ot E11.621 TYPE 2 DIABETES MELLITUS WITH FOOT ULCER 09/19/2016 VIRGILIO RAMSEY, PIETER Lopez Ot 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 09/19/2016 VIRGILIO RAMSEY, PIETER Lopez Ot 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 09/19/2016 LORETTA MARTINO GROUP INSURANCE SPECIALIST Ot E11.621 TYPE 2 DIABETES MELLITUS WITH FOOT ULCER 09/19/2016 LORETTA MARTINO GROUP INSURANCE SPECIALIST Ot E66.01 MORBID (SEVERE) OBESITY DUE TO EXCESS CA 09/19/2016 LORETTA MARTINO APRN Ot I50.20 UNSPECIFIED SYSTOLIC (CONGESTIVE) HEART 09/19/2016 LORETTA MARTINO APRN Ot 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 09/19/2016 LORETTA MARTINO GROUP INSURANCE SPECIALIST Ot I89.0 LYMPHEDEMA, NOT ELSEWHERE CLASSIFIED 09/19/2016 LORETTA MARTINO GROUP INSURANCE SPECIALIST Ot L97.512 NON-PRS CHRONIC ULCER OTH PRT RIGHT FOOT 09/19/2016 LORETTA MARTINO GROUP INSURANCE SPECIALIST Ot L97.513 NON-PRS CHRONIC ULCER OTH PRT RIGHT FOOT 09/19/2016 LORETTA MARTINO GROUP INSURANCE SPECIALIST Ot N18.6 END STAGE RENAL DISEASE 09/20/2016 LORETTA MARTINO GROUP INSURANCE SPECIALIST Ot E11.621 TYPE 2 DIABETES MELLITUS WITH FOOT ULCER 09/20/2016 LORETTA MARTINO GROUP INSURANCE SPECIALIST Ot E66.01 MORBID (SEVERE) OBESITY DUE TO EXCESS CA 09/20/2016 LORETTA MARTINO GROUP INSURANCE SPECIALIST Ot I50.20 UNSPECIFIED SYSTOLIC (CONGESTIVE) HEART 09/20/2016 LORETTA MARTINO APRN Ot 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 09/20/2016 LORETTA MARTINO GROUP INSURANCE SPECIALIST Ot I89.0 LYMPHEDEMA, NOT ELSEWHERE CLASSIFIED 09/20/2016 LORETTA MARTINO GROUP INSURANCE SPECIALIST Ot L97.512 NON-PRS CHRONIC ULCER OTH PRT RIGHT FOOT 09/20/2016 LORETTA MARTINO APRN Ot L97.513 NON-PRS CHRONIC ULCER OTH PRT RIGHT FOOT 09/20/2016 LORETTA MARTINO APRN Ot N18.6 END STAGE RENAL DISEASE 09/20/2016 Ot 272.4 HYPERLIPIDEMIA NEC/NOS 09/20/2016 Ot 401.9 HYPERTENSION NOS 09/20/2016 Ot V58.69 OTH MED,LT, CURRENT USE 09/20/2016 SUNDAR RAMSEY, VIKKI Jaffe Ot L02.611 CUTANEOUS ABSCESS OF RIGHT FOOT 09/20/2016 PIETER POOLE MD Ot E11.621 TYPE 2 DIABETES MELLITUS WITH FOOT ULCER 09/20/2016 PIETER POOLE MD Ot 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 09/20/2016 PIETER POOLE MD Ot 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 09/20/2016 LORETTA MARTINO GROUP INSURANCE SPECIALIST Ot E11.621 TYPE 2 DIABETES MELLITUS WITH FOOT ULCER 09/20/2016 LORETTA MARTINO APRN Ot E66.01 MORBID (SEVERE) OBESITY DUE TO EXCESS CA 09/20/2016 GUNNER, LORETTA R GROUP INSURANCE SPECIALIST Ot I50.20 UNSPECIFIED SYSTOLIC (CONGESTIVE) HEART 09/20/2016 LORETTA MARTINO GROUP INSURANCE SPECIALIST Ot 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 09/20/2016 LORETTA MARTINO GROUP INSURANCE SPECIALIST Ot I89.0 LYMPHEDEMA, NOT ELSEWHERE CLASSIFIED 09/20/2016 LORETTA MARTINO GROUP INSURANCE SPECIALIST Ot L97.512 NON-PRS CHRONIC ULCER OTH PRT RIGHT FOOT 09/20/2016 LORETTA MARTINO R GROUP INSURANCE SPECIALIST Ot L97.513 NON-PRS CHRONIC ULCER OTH PRT RIGHT FOOT 09/20/2016 LORETTA MARTINO GROUP INSURANCE SPECIALIST Ot N18.6 END STAGE RENAL DISEASE 09/21/2016 LORETTA MARTINO R GROUP INSURANCE SPECIALIST Ot E11.621 TYPE 2 DIABETES MELLITUS WITH FOOT ULCER 09/21/2016 LORETTA MARTINO GROUP INSURANCE SPECIALIST Ot E66.01 MORBID (SEVERE) OBESITY DUE TO EXCESS CA 09/21/2016 LORETTA MARTINO GROUP INSURANCE SPECIALIST Ot I50.20 UNSPECIFIED SYSTOLIC (CONGESTIVE) HEART 09/21/2016 LORETTA MARTINO GROUP INSURANCE SPECIALIST Ot 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 09/21/2016 LORETTA MARTINO GROUP INSURANCE SPECIALIST Ot I89.0 LYMPHEDEMA, NOT ELSEWHERE CLASSIFIED 09/21/2016 LORETTA MARTINO GROUP INSURANCE SPECIALIST Ot L97.512 NON-PRS CHRONIC ULCER OTH PRT RIGHT FOOT 09/21/2016 LORETTA MARTINO GROUP INSURANCE SPECIALIST Ot L97.513 NON-PRS CHRONIC ULCER OTH PRT RIGHT FOOT 09/21/2016 LORETTA MARTINO GROUP INSURANCE SPECIALIST Ot N18.6 END STAGE RENAL DISEASE 09/25/2016 SUNDAR RAMSEY, VIKKI Jaffe Ot L02.611 CUTANEOUS ABSCESS OF RIGHT FOOT 09/25/2016 PIETER POOLE MD Ot E11.621 TYPE 2 DIABETES MELLITUS WITH FOOT ULCER 09/25/2016 PIETER POOLE MD Ot 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 09/25/2016 PIETER POOLE MD Ot 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 09/25/2016 LORETTA MARTINO GROUP INSURANCE SPECIALIST Ot E11.621 TYPE 2 DIABETES MELLITUS WITH FOOT ULCER 09/25/2016 LORETTA MARTINO GROUP INSURANCE SPECIALIST Ot E66.01 MORBID (SEVERE) OBESITY DUE TO EXCESS CA 09/25/2016 LORETTA MARTINO GROUP INSURANCE SPECIALIST Ot I50.20 UNSPECIFIED SYSTOLIC (CONGESTIVE) HEART 09/25/2016 LORETTA MARTINO APRN Ot 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 09/25/2016 LORETTA MARTINO GROUP INSURANCE SPECIALIST Ot I89.0 LYMPHEDEMA, NOT ELSEWHERE CLASSIFIED 09/25/2016 LORETTA MARTINO GROUP INSURANCE SPECIALIST Ot L97.512 NON-PRS CHRONIC ULCER OTH PRT RIGHT FOOT 09/25/2016 LORETTA MARTINO GROUP INSURANCE SPECIALIST Ot L97.513 NON-PRS CHRONIC ULCER OTH PRT RIGHT FOOT 09/25/2016 LORETTA MARTINO APRN Ot N18.6 END STAGE RENAL DISEASE 10/05/2016 LORETTA MARTINO GROUP INSURANCE SPECIALIST Ot Z45.2 ENCOUNTER FOR ADJUSTMENT AND MANAGEMENT 11/01/2016 PIETER POOLE MD Ot E11.621 TYPE 2 DIABETES MELLITUS WITH FOOT ULCER 11/01/2016 PIETER POOLE MD Ot 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 11/01/2016 PIETER POOLE MD, Ot 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 11/01/2016 LORETTA MARTINO GROUP INSURANCE SPECIALIST Ot Z45.2 ENCOUNTER FOR ADJUSTMENT AND MANAGEMENT 11/07/2016 LORETTA MARTINO APRN Ot E11.621 TYPE 2 DIABETES MELLITUS WITH FOOT ULCER 11/07/2016 LORETTA MARTINO GROUP INSURANCE SPECIALIST Ot E66.01 MORBID (SEVERE) OBESITY DUE TO EXCESS CA 11/07/2016 LORETTA MARTINO GROUP INSURANCE SPECIALIST Ot I50.20 UNSPECIFIED SYSTOLIC (CONGESTIVE) HEART 11/07/2016 LORETTA MARTINO GROUP INSURANCE SPECIALIST Ot 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 11/07/2016 LORETTA MARTINO APRN Ot I89.0 LYMPHEDEMA, NOT ELSEWHERE CLASSIFIED 11/07/2016 LORETTA MARTINO GROUP INSURANCE SPECIALIST Ot L03.115 CELLULITIS OF RIGHT LOWER LIMB 11/07/2016 LORETTA MARTINO GROUP INSURANCE SPECIALIST Ot L97.211 NON-PRS CHRONIC ULCER OF RIGHT [place] 11/07/2016 LORETTA MARTINO GROUP INSURANCE SPECIALIST Ot 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 11/07/2016 LORETTA MARTINO GROUP INSURANCE SPECIALIST Ot L97.512 NON-PRS CHRONIC ULCER OTH PRT RIGHT FOOT 11/07/2016 LORETTA MARTINO GROUP INSURANCE SPECIALIST Ot N18.6 END STAGE RENAL DISEASE 11/07/2016 LORETTA MARTINO GROUP INSURANCE SPECIALIST Ot Z68.43 BODY MASS INDEX (BMI) 50-59.9 , ADULT 11/16/2016 LORETTA MARTINO GROUP INSURANCE SPECIALIST Ot E11.621 TYPE 2 DIABETES MELLITUS WITH FOOT ULCER 11/16/2016 LORETTA MARTINO GROUP INSURANCE SPECIALIST Ot I70.231 ATHSCL [place] ARTERIES OF RIGHT LEG W UL 11/16/2016 LORETTA MARTINO GROUP INSURANCE SPECIALIST Ot I89.0 LYMPHEDEMA, NOT ELSEWHERE CLASSIFIED 11/16/2016 LORETTA MARTINO GROUP INSURANCE SPECIALIST Ot L97.211 NON-PRS CHRONIC ULCER OF RIGHT [place] 11/16/2016 LORETTA MARTINO GROUP INSURANCE SPECIALIST Ot 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 11/16/2016 LORETTA MARTINO GROUP INSURANCE SPECIALIST Ot L97.512 NON-PRS CHRONIC ULCER OTH PRT RIGHT FOOT 11/27/2016 LORETTA MARTINO GROUP INSURANCE SPECIALIST Ot L03.115 CELLULITIS OF RIGHT LOWER LIMB 11/27/2016 LORETTA MARTINO GROUP INSURANCE SPECIALIST Ot 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 11/27/2016 LORETTA MARTINO GROUP INSURANCE SPECIALIST Ot Z45.2 ENCOUNTER FOR ADJUSTMENT AND MANAGEMENT 11/27/2016 LORETTA MARTINO GROUP INSURANCE SPECIALIST Ot L03.115 CELLULITIS OF RIGHT LOWER LIMB 11/27/2016 LORETTA MARTINO GROUP INSURANCE SPECIALIST Ot 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 11/27/2016 LORETTA MARTINO GROUP INSURANCE SPECIALIST Ot Z45.2 ENCOUNTER FOR ADJUSTMENT AND MANAGEMENT 12/01/2016 LORETTA MARTINO GROUP INSURANCE SPECIALIST Ot E11.621 TYPE 2 DIABETES MELLITUS WITH FOOT ULCER 12/01/2016 LORETTA MARTINO GROUP INSURANCE SPECIALIST Ot 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 12/01/2016 LORETTA MARTINO GROUP INSURANCE SPECIALIST Ot I89.0 LYMPHEDEMA, NOT ELSEWHERE CLASSIFIED 12/01/2016 LORETTA MARTINO GROUP INSURANCE SPECIALIST Ot L97.512 NON-PRS CHRONIC ULCER OTH PRT RIGHT FOOT 12/01/2016 LORETTA MARTINO GROUP INSURANCE SPECIALIST Ot N18.6 END STAGE RENAL DISEASE 12/01/2016 LORETTA MARTINO GROUP INSURANCE SPECIALIST Ot E11.621 TYPE 2 DIABETES MELLITUS WITH FOOT ULCER 12/01/2016 LROETTA MARTINO APRN Ot 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 12/01/2016 LORETTA MARTINO APRN Ot I89.0 LYMPHEDEMA, NOT ELSEWHERE CLASSIFIED 12/01/2016 LORETTA MARTINO GROUP INSURANCE SPECIALIST Ot L97.512 NON-PRS CHRONIC ULCER OTH PRT RIGHT FOOT 12/01/2016 LORETTA MARTINO APRN Ot N18.6 END STAGE RENAL DISEASE 12/04/2016 PIETER POOLE MD Ot E11.621 TYPE 2 DIABETES MELLITUS WITH FOOT ULCER 12/04/2016 PIETER POOLE MD Ot 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 12/04/2016 PIETER POOLE MD Ot 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 12/05/2016 LORETTA MARTINO APRN Ot E11.621 TYPE 2 DIABETES MELLITUS WITH FOOT ULCER 12/05/2016 LORETTA MARTINO APRN Ot 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 12/05/2016 LORETTA MARTINO GROUP INSURANCE SPECIALIST Ot I89.0 LYMPHEDEMA, NOT ELSEWHERE CLASSIFIED 12/05/2016 LORETTA MARTINO APRN Ot L97.512 NON-PRS CHRONIC ULCER OTH PRT RIGHT FOOT 12/05/2016 LORETTA MARTINO APRN Ot N18.6 END STAGE RENAL DISEASE 12/07/2016 PIETER POOLE MD Ot E11.621 TYPE 2 DIABETES MELLITUS WITH FOOT ULCER 12/07/2016 PIETER POOLE MD Ot 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 12/07/2016 PIETER POOLE MD Ot 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 12/07/2016 LORETTA MARTINO APRN Ot E11.621 TYPE 2 DIABETES MELLITUS WITH FOOT ULCER 12/07/2016 LORETTA MARTINO APRN Ot I70.231 ATHSCL [place] ARTERIES OF RIGHT LEG W UL 12/07/2016 LORETTA MARTINO GROUP INSURANCE SPECIALIST Ot I89.0 LYMPHEDEMA, NOT ELSEWHERE CLASSIFIED 12/07/2016 LORETTA MARTINO GROUP INSURANCE SPECIALIST Ot L97.211 NON-PRS CHRONIC ULCER OF RIGHT [place] 12/07/2016 LORETTA MARTINO APRN Ot 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 12/07/2016 LORETTA MARTINO GROUP INSURANCE SPECIALIST Ot L97.512 NON-PRS CHRONIC ULCER OTH PRT RIGHT FOOT 12/12/2016 LORETTA MARTINO GROUP INSURANCE SPECIALIST Ot E11.621 TYPE 2 DIABETES MELLITUS WITH FOOT ULCER 12/12/2016 LORETTA MARTINO GROUP INSURANCE SPECIALIST Ot 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 12/12/2016 [employer] INS[employer] SPECIALIST Ot I89.0 LYMPHEDEMA, NOT ELSEWHERE CLASSIFIED 12/12/2016 [employer] INS[employer] SPECIALIST Ot L97.512 NON-PRS CHRONIC ULCER OTH PRT RIGHT FOOT 12/12/2016 [employer] INS[employer] SPECIALIST Ot N18.6 END STAGE RENAL DISEASE 12/13/2016 [employer] INS[employer] SPECIALIST Ot E11.621 TYPE 2 DIABETES MELLITUS WITH FOOT ULCER 12/13/2016 [employer] INS[employer] SPECIALIST Ot 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 12/13/2016 [employer] INS[employer] SPECIALIST Ot I89.0 LYMPHEDEMA, NOT ELSEWHERE CLASSIFIED 12/13/2016 [employer] INSURANCE SPECIALIST Ot L97.512 NON-PRS CHRONIC ULCER OTH PRT RIGHT FOOT 12/13/2016 [employer] INS[employer]ANCE SPECIALIST Ot N18.6 END STAGE RENAL DISEASE 12/14/2016 [employer] INS[employer] SPECIALIST Ot E11.621 TYPE 2 DIABETES MELLITUS WITH FOOT ULCER 12/14/2016 [employer] INSURANCE SPECIALIST Ot 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 12/14/2016 [employer] INS[employer]ANCE SPECIALIST Ot I89.0 LYMPHEDEMA, NOT ELSEWHERE CLASSIFIED 12/14/2016 [employer] INSURANCE SPECIALIST Ot L97.211 NON-PRS CHRONIC ULCER OF RIGHT [place] 12/14/2016 [employer] INSUR[employer] SPECIALIST Ot 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 12/14/2016 [employer] INSURANCE SPECIALIST Ot L97.512 NON-PRS CHRONIC ULCER OTH PRT RIGHT FOOT 12/14/2016 [employer] INS[employer]ANCE SPECIALIST Ot E11.621 TYPE 2 DIABETES MELLITUS WITH FOOT ULCER 12/14/2016 [employer] INSURANCE SPECIALIST Ot E66.01 MORBID (SEVERE) OBESITY DUE TO EXCESS CA 12/14/2016 [employer] INSURANCE SPECIALIST Ot I50.20 UNSPECIFIED SYSTOLIC (CONGESTIVE) HEART 12/14/2016 [employer] INS[employer]ANCE SPECIALIST Ot 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 12/14/2016 [employer] INSUR[employer] SPECIALIST Ot I89.0 LYMPHEDEMA, NOT ELSEWHERE CLASSIFIED 12/14/2016 [employer] INS[employer] SPECIALIST Ot L03.115 CELLULITIS OF RIGHT LOWER LIMB 12/14/2016 [employer] INS[employer]ANCE SPECIALIST Ot L97.211 NON-PRS CHRONIC ULCER OF RIGHT [place] 12/14/2016 [employer] INS[employer] SPECIALIST Ot 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 12/14/2016 [employer] INSURANCE SPECIALIST Ot L97.512 NON-PRS CHRONIC ULCER OTH PRT RIGHT FOOT 12/14/2016 [employer] INS[employer] SPECIALIST Ot N18.6 END STAGE RENAL DISEASE 12/14/2016 [employer] INS[employer] SPECIALIST Ot Z68.43 BODY MASS INDEX (BMI) 50-59.9 , ADULT 12/24/2016 [employer] SPECIALIST Ot L03.115 CELLULITIS OF RIGHT LOWER LIMB 12/24/2016 [employer] INSURANCE SPECIALIST Ot 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 12/24/2016 [employer] INS[employer] SPECIALIST Ot Z45.2 ENCOUNTER FOR ADJUSTMENT AND MANAGEMENT 12/24/2016 [employer] INS[employer] SPECIALIST Ot E11.621 TYPE 2 DIABETES MELLITUS WITH FOOT ULCER 12/24/2016 [employer] INSURANCE SPECIALIST Ot 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 12/24/2016 [employer] INSUR[employer] SPECIALIST Ot I89.0 LYMPHEDEMA, NOT ELSEWHERE CLASSIFIED 12/24/2016 [employer] INSURANCE SPECIALIST Ot L97.512 NON-PRS CHRONIC ULCER OTH PRT RIGHT FOOT 12/24/2016 [employer] SPECIALIST Ot N18.6 END STAGE RENAL DISEASE 12/25/2016 [employer] INS[employer] SPECIALIST Ot E11.621 TYPE 2 DIABETES MELLITUS WITH FOOT ULCER 12/25/2016 [employer] INSUR[employer] SPECIALIST Ot I70.231 [place]CL [place] ARTERIES OF RIGHT LEG W UL 12/25/2016 [employer] INSURANCE SPECIALIST Ot I89.0 LYMPHEDEMA, NOT ELSEWHERE CLASSIFIED 12/25/2016 [employer] INSURANCE SPECIALIST Ot L97.211 NON-PRS CHRONIC ULCER OF RIGHT [place] 12/25/2016 [employer] INSURANCE SPECIALIST Ot 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 12/25/2016 [employer] INSURANCE SPECIALIST Ot L97.512 NON-PRS CHRONIC ULCER OTH PRT RIGHT FOOT 12/26/2016 [employer] INSURANCE SPECIALIST Ot E11.621 TYPE 2 DIABETES MELLITUS WITH FOOT ULCER 12/26/2016 [employer] INSURANCE SPECIALIST Ot 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 12/26/2016 [employer] INSURANCE SPECIALIST Ot I89.0 LYMPHEDEMA, NOT ELSEWHERE CLASSIFIED 12/26/2016 [employer] INSURANCE SPECIALIST Ot L97.512 NON-PRS CHRONIC ULCER OTH PRT RIGHT FOOT 12/26/2016 [employer] INSURANCE SPECIALIST Ot N18.6 END STAGE RENAL DISEASE 12/28/2016 [employer] INSURANCE SPECIALIST Ot E11.621 TYPE 2 DIABETES MELLITUS WITH FOOT ULCER 12/28/2016 [employer] INSURANCE SPECIALIST Ot 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 12/28/2016 [employer] INSURANCE SPECIALIST Ot I89.0 LYMPHEDEMA, NOT ELSEWHERE CLASSIFIED 12/28/2016 [employer] INSURANCE SPECIALIST Ot L97.512 NON-PRS CHRONIC ULCER OTH PRT RIGHT FOOT 12/28/2016 [employer] INSURANCE SPECIALIST Ot N18.6 END STAGE RENAL DISEASE 12/30/2016 [employer] INSURANCE SPECIALIST Ot L03.115 CELLULITIS OF RIGHT LOWER LIMB 12/30/2016 [employer] INSURANCE SPECIALIST Ot 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 12/30/2016 [employer] INSURANCE SPECIALIST Ot Z45.2 ENCOUNTER FOR ADJUSTMENT AND MANAGEMENT 12/31/2016 [employer] INSURANCE SPECIALIST Ot 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 12/31/2016 [employer] INSURANCE SPECIALIST Ot E11.621 TYPE 2 DIABETES MELLITUS WITH FOOT ULCER 12/31/2016 [employer] INSURANCE SPECIALIST Ot 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 12/31/2016 [employer] INSURANCE SPECIALIST Ot I89.0 LYMPHEDEMA, NOT ELSEWHERE CLASSIFIED 12/31/2016 [employer] INSURANCE SPECIALIST Ot L97.512 NON-PRS CHRONIC ULCER OTH PRT RIGHT FOOT 12/31/2016 [employer] INSURANCE SPECIALIST Ot N18.6 END STAGE RENAL DISEASE 12/31/2016 L[employer]TA M[employer]INO R GROUP INSURANCE SPECIALIST Ot E11.621 TYPE 2 DIABETES MELLITUS WITH FOOT ULCER 12/31/2016 [employer] INSURANCE SPECIALIST Ot 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 12/31/2016 LORETTA M[employer]INO R GROUP INSURANCE SPECIALIST Ot I89.0 LYMPHEDEMA, NOT ELSEWHERE CLASSIFIED 12/31/2016 [employer] INSURANCE SPECIALIST Ot L97.211 NON-PRS CHRONIC ULCER OF RIGHT [place] 12/31/2016 LORETTA MARTINO R GROUP INSURANCE SPECIALIST Ot 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 12/31/2016 [employer] INSURANCE SPECIALIST Ot L97.512 NON-PRS CHRONIC ULCER OTH PRT RIGHT FOOT 01/02/2017 [employer] INSURANCE SPECIALIST Ot E11.621 TYPE 2 DIABETES MELLITUS WITH FOOT ULCER 01/02/2017 [employer] INSURANCE SPECIALIST Ot 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 01/02/2017 [employer]TA M[employer] R GROUP INSURANCE SPECIALIST Ot I89.0 LYMPHEDEMA, NOT ELSEWHERE CLASSIFIED 01/02/2017 [employer] INSURANCE SPECIALIST Ot L97.512 NON-PRS CHRONIC ULCER OTH PRT RIGHT FOOT 01/03/2017 [employer]TA M[employer]INO R GROUP INSURANCE SPECIALIST Ot E11.621 TYPE 2 DIABETES MELLITUS WITH FOOT ULCER 01/03/2017 [employer] INSURANCE SPECIALIST Ot 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 01/03/2017 [employer] INSURANCE SPECIALIST Ot I89.0 LYMPHEDEMA, NOT ELSEWHERE CLASSIFIED 01/03/2017 [employer] INSURANCE SPECIALIST Ot L97.512 NON-PRS CHRONIC ULCER OTH PRT RIGHT FOOT 01/08/2017 [employer]ORETTA M[employer]INO R GROUP INSURANCE SPECIALIST Ot E11.621 TYPE 2 DIABETES MELLITUS WITH FOOT ULCER 01/08/2017 LORETTA MARTINO R GROUP INSURANCE SPECIALIST Ot 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512 NON-PRS CHRONIC ULCER OTH PRT RIGHT FOOT 01/10/2017 [employer]TA M[employer]INO R GROUP INSURANCE SPECIALIST Ot N18.6 END STAGE RENAL DISEASE 01/11/2017 [employer]OR[employer]TA M[employer] R GROUP INSURANCE SPECIALIST Ot E11.621 TYPE 2 DIABETES MELLITUS WITH FOOT ULCER 01/11/2017 LORETTA M[employer]INO R GROUP INSURANCE SPECIALIST Ot 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 01/11/2017 [employer] INSURANCE SPECIALIST Ot I89.0 LYMPHEDEMA, NOT ELSEWHERE CLASSIFIED 01/11/2017 [employer] INSURANCE SPECIALIST Ot L97.512 NON-PRS CHRONIC ULCER OTH PRT RIGHT FOOT 01/11/2017 [employer] R GROUP INSURANCE SPECIALIST Ot N18.6 END STAGE RENAL DISEASE 01/16/2017 ALDA FERRARO SOLDER MAKING SUPERVISOR Ot I25.10 ATHSCL HEART DISEASE OF [place] CORONARY 01/16/2017 ALDA FERRARO SOLDER MAKING SUPERVISOR Ot I50.32 CHRONIC DIASTOLIC (CONGESTIVE) HEART ОЛЬГА 01/16/2017 ALDA FERRARO SOLDER MAKING SUPERVISOR Ot I73.89 OTHER SPECIFIED PERIPHERAL VASCULAR DISE 01/16/2017 ALDA FERRARO SOLDER MAKING SUPERVISOR Ot N18.5 CHRONIC KIDNEY DISEASE, STAGE 5 01/16/2017 [employer] R [employer] INSURANCE SPECIALIST Ot 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 01/16/2017 LORETTA MARTINO R GROUP INSURANCE SPECIALIST Ot E11.621 TYPE 2 DIABETES MELLITUS WITH FOOT ULCER 01/16/2017 [employer] INSURANCE SPECIALIST Ot 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 01/16/2017 LORETTA MARTINO R GROUP INSURANCE SPECIALIST Ot I89.0 LYMPHEDEMA, NOT ELSEWHERE CLASSIFIED 01/16/2017 LORETTA M[employer]INO R GROUP INSURANCE SPECIALIST Ot L97.512 NON-PRS CHRONIC ULCER OTH PRT RIGHT FOOT 01/16/2017 GUNNER, LORETTA R GROUP INSURANCE SPECIALIST Ot N18.6 END STAGE RENAL DISEASE 01/18/2017 LORETTA MARTINO R GROUP INSURANCE SPECIALIST Ot E11.621 TYPE 2 DIABETES MELLITUS WITH FOOT ULCER 01/18/2017 LORETTA MARTINO R GROUP INSURANCE SPECIALIST Ot 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 01/18/2017 LORETTA M[employer]INO R GROUP INSURANCE SPECIALIST Ot I89.0 LYMPHEDEMA, NOT ELSEWHERE CLASSIFIED 01/18/2017 [employer] INSURANCE SPECIALIST Ot L97.512 NON-PRS CHRONIC ULCER OTH PRT RIGHT FOOT 01/22/2017 [employer] INSURANCE SPECIALIST Ot 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 01/22/2017 LORETTA MRATINO R GROUP INSURANCE SPECIALIST Ot E11.621 TYPE 2 DIABETES MELLITUS WITH FOOT ULCER 01/22/2017 LORETTA MARTINO R GROUP INSURANCE SPECIALIST Ot 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 01/22/2017 LORETTA MARTINO R GROUP INSURANCE SPECIALIST Ot I89.0 LYMPHEDEMA, NOT ELSEWHERE CLASSIFIED 01/22/2017 [employer] INSURANCE SPECIALIST Ot L97.512 NON-PRS CHRONIC ULCER OTH PRT RIGHT FOOT 01/22/2017 LORETTA M[employer]INO R GROUP INSURANCE SPECIALIST Ot N18.6 END STAGE RENAL DISEASE 01/24/2017 LOR[employer]TA M[employer] R GROUP INSURANCE SPECIALIST Ot E11.621 TYPE 2 DIABETES MELLITUS WITH FOOT ULCER 01/24/2017 [employer]ORETTA M[employer]INO R GROUP INSURANCE SPECIALIST Ot 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 01/24/2017 [employer] INSURANCE SPECIALIST Ot I89.0 LYMPHEDEMA, NOT ELSEWHERE CLASSIFIED 01/24/2017 [employer] INSURANCE SPECIALIST Ot L97.512 NON-PRS CHRONIC ULCER OTH PRT RIGHT FOOT 01/24/2017 LORETTA M[employer]INO R GROUP INSURANCE SPECIALIST Ot N18.6 END STAGE RENAL DISEASE 01/31/2017 [employer] INSURANCE SPECIALIST Ot E11.621 TYPE 2 DIABETES MELLITUS WITH FOOT ULCER 01/31/2017 [employer]ORETTA M[employer]INO R GROUP INSURANCE SPECIALIST Ot 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 01/31/2017 [employer]OR[employer]TA M[employer] R GROUP INSURANCE SPECIALIST Ot I89.0 LYMPHEDEMA, NOT ELSEWHERE CLASSIFIED 01/31/2017 LORETTA M[employer]INO R GROUP INSURANCE SPECIALIST Ot L97.512 NON-PRS CHRONIC ULCER OTH PRT RIGHT FOOT 01/31/2017 [employer] INSURANCE SPECIALIST Ot N18.6 END STAGE RENAL DISEASE 02/05/2017 [employer] INSURANCE SPECIALIST Ot E11.621 TYPE 2 DIABETES MELLITUS WITH FOOT ULCER 02/05/2017 [employer] INSURANCE SPECIALIST Ot 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 02/05/2017 [employer] INSURANCE SPECIALIST Ot I89.0 LYMPHEDEMA, NOT ELSEWHERE CLASSIFIED 02/05/2017 [employer] INSURANCE SPECIALIST Ot L97.512 NON-PRS CHRONIC ULCER OTH PRT RIGHT FOOT 02/05/2017 [employer] INSURANCE SPECIALIST Ot N18.6 END STAGE RENAL DISEASE 02/05/2017 [employer] INSURANCE SPECIALIST Ot E11.621 TYPE 2 DIABETES MELLITUS WITH FOOT ULCER 02/05/2017 [employer] INSURANCE SPECIALIST Ot 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 02/05/2017 [employer] INSURANCE SPECIALIST Ot I89.0 LYMPHEDEMA, NOT ELSEWHERE CLASSIFIED 02/05/2017 [employer] INSURANCE SPECIALIST Ot L97.512 NON-PRS CHRONIC ULCER OTH PRT RIGHT FOOT 02/06/2017 BAIALLYSON ALDA L SOLDER MAKING SUPERVISOR Ot I25.10 ATHSCL HEART DISEASE OF [place] CORONARY 02/06/2017 BAIMA, ALDA L SOLDER MAKING SUPERVISOR Ot I50.32 CHRONIC DIASTOLIC (CONGESTIVE) HEART ОЛЬГА 02/06/2017 BAIMA, ALDA L SOLDER MAKING SUPERVISOR Ot I73.89 OTHER SPECIFIED PERIPHERAL VASCULAR DISE 02/06/2017 BAIMA, ALDA L SOLDER MAKING SUPERVISOR Ot N18.5 CHRONIC KIDNEY DISEASE, STAGE 5 02/08/2017 BAIMA ALDA L SOLDER MAKING SUPERVISOR Ot I25.10 ATHSCL HEART DISEASE OF [place] CORONARY 02/08/2017 BAIMA, ALDA L SOLDER MAKING SUPERVISOR Ot I50.32 CHRONIC DIASTOLIC (CONGESTIVE) HEART ОЛЬГА 02/08/2017 BAIMA, ALDA L SOLDER MAKING SUPERVISOR Ot I73.89 OTHER SPECIFIED PERIPHERAL VASCULAR DISE 02/08/2017 BAIMA, ALDA L SOLDER MAKING SUPERVISOR Ot N18.5 CHRONIC KIDNEY DISEASE, STAGE 5 02/11/2017 [employer] INSURANCE SPECIALIST Ot E11.621 TYPE 2 DIABETES MELLITUS WITH FOOT ULCER 02/11/2017 LOR[employer] INSURANCE SPECIALIST Ot 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 02/11/2017 [employer] INSURANCE SPECIALIST Ot I89.0 LYMPHEDEMA, NOT ELSEWHERE CLASSIFIED 02/11/2017 LOR[employer] M[employer] INSURANCE SPECIALIST Ot L97.512 NON-PRS CHRONIC ULCER OTH PRT RIGHT FOOT 02/12/2017 [employer] INSURANCE SPECIALIST Ot E11.621 TYPE 2 DIABETES MELLITUS WITH FOOT ULCER 02/12/2017 [employer]OR[employer] M[employer] INSURANCE SPECIALIST Ot 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 02/12/2017 LOR[employer]TA M[employer] GROUP INSURANCE SPECIALIST Ot I89.0 LYMPHEDEMA, NOT ELSEWHERE CLASSIFIED 02/12/2017 [employer]OR[employer] M[employer] INSURANCE SPECIALIST Ot L97.512 NON-PRS CHRONIC ULCER OTH PRT RIGHT FOOT 02/15/2017 LOR[employer] M[employer] GROUP INSURANCE SPECIALIST Ot E11.621 TYPE 2 DIABETES MELLITUS WITH FOOT ULCER 02/15/2017 [employer]OR[employer]TA M[employer]INO GROUP INSURANCE SPECIALIST Ot E66.01 MORBID (SEVERE) OBESITY DUE TO EXCESS CA 02/15/2017 [employer]OR[employer]TA M[employer] GROUP INSURANCE SPECIALIST Ot I50.20 UNSPECIFIED SYSTOLIC (CONGESTIVE) HEART 02/15/2017 LOR[employer]TA M[employer]INO GROUP INSURANCE SPECIALIST Ot 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 02/15/2017 [employer]OR[employer] M[employer] INSURANCE SPECIALIST Ot I89.0 LYMPHEDEMA, NOT ELSEWHERE CLASSIFIED 02/15/2017 LOR[employer] M[employer] INSURANCE SPECIALIST Ot L97.512 NON-PRS CHRONIC ULCER OTH PRT RIGHT FOOT 02/15/2017 [employer]OR[employer] INSURANCE SPECIALIST Ot N18.6 END STAGE RENAL DISEASE 02/15/2017 LORETTA M[employer] GROUP INSURANCE SPECIALIST Ot S90.931A UNSP SUPERFICIAL INJURY OF RIGHT GREAT T 02/15/2017 LOR[employer]TA M[employer] INSURANCE SPECIALIST Ot Z68.43 BODY MASS INDEX (BMI) 50-59.9 , ADULT 02/19/2017 [employer]OR[employer]TA [employer] GROUP INSURANCE SPECIALIST Ot E11.621 TYPE 2 DIABETES MELLITUS WITH FOOT ULCER 02/19/2017 LORETTA M[employer]INO GROUP INSURANCE SPECIALIST Ot E66.01 MORBID (SEVERE) OBESITY DUE TO EXCESS CA 02/19/2017 LOR[employer]TA M[employer] GROUP INSURANCE SPECIALIST Ot I50.20 UNSPECIFIED SYSTOLIC (CONGESTIVE) HEART 02/19/2017 LORETTA M[employer]INO GROUP INSURANCE SPECIALIST Ot 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 02/19/2017 LORETTA MARTINO GROUP INSURANCE SPECIALIST Ot I89.0 LYMPHEDEMA, NOT ELSEWHERE CLASSIFIED 02/19/2017 LORETTA M[employer]INO GROUP INSURANCE SPECIALIST Ot L97.512 NON-PRS CHRONIC ULCER OTH PRT RIGHT FOOT 02/19/2017 [employer]TA [employer] INSURANCE SPECIALIST Ot N18.6 END STAGE RENAL DISEASE 02/19/2017 LORETTA MARTINO APRN Ot S90.931A UNSP SUPERFICIAL INJURY OF RIGHT GREAT T 02/19/2017 LOR[employer] M[employer] GROUP INSURANCE SPECIALIST Ot Z68.43 BODY MASS INDEX (BMI) 50-59.9 , ADULT 02/20/2017 LOR[employer]TA M[employer]INO GROUP INSURANCE SPECIALIST Ot E11.621 TYPE 2 DIABETES MELLITUS WITH FOOT ULCER 02/20/2017 LORETTA M[employer]INO GROUP INSURANCE SPECIALIST Ot E66.01 MORBID (SEVERE) OBESITY DUE TO EXCESS CA 02/20/2017 LORETTA M[employer]INO GROUP INSURANCE SPECIALIST Ot I50.20 UNSPECIFIED SYSTOLIC (CONGESTIVE) HEART 02/20/2017 LORETTA MARTINO GROUP INSURANCE SPECIALIST Ot 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 02/20/2017 LORETTA M[employer]INO [employer] INSURANCE SPECIALIST Ot 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 02/20/2017 LOR[employer]TA M[employer] INSURANCE SPECIALIST Ot I89.0 LYMPHEDEMA, NOT ELSEWHERE CLASSIFIED 02/20/2017 LOR[employer]TA M[employer] INSURANCE SPECIALIST Ot L97.512 NON-PRS CHRONIC ULCER OTH PRT RIGHT FOOT 02/20/2017 LORETTA M[employer]INO GROUP INSURANCE SPECIALIST Ot N18.6 END STAGE RENAL DISEASE 02/26/2017 LORETTA M[employer]INO [employer] INSURANCE SPECIALIST Ot E11.621 TYPE 2 DIABETES MELLITUS WITH FOOT ULCER 02/26/2017 LORETTA MARTINO GROUP INSURANCE SPECIALIST Ot 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 02/26/2017 LORETTA MARTINO GROUP INSURANCE SPECIALIST Ot I89.0 LYMPHEDEMA, NOT ELSEWHERE CLASSIFIED 02/26/2017 LORETTA M[employer]INO GROUP INSURANCE SPECIALIST Ot L97.512 NON-PRS CHRONIC ULCER OTH PRT RIGHT FOOT 02/26/2017 LORETTA MARTINO GROUP INSURANCE SPECIALIST Ot N18.6 END STAGE RENAL DISEASE 03/01/2017 LOR[employer]TA M[employer]INO GROUP INSURANCE SPECIALIST Ot E11.621 TYPE 2 DIABETES MELLITUS WITH FOOT ULCER 03/01/2017 LORETTA MARTINO GROUP INSURANCE SPECIALIST Ot E66.01 MORBID (SEVERE) OBESITY DUE TO EXCESS CA 03/01/2017 LORETTA MARTINO GROUP INSURANCE SPECIALIST Ot I50.20 UNSPECIFIED SYSTOLIC (CONGESTIVE) HEART 03/01/2017 LORETTA MARTINO GROUP INSURANCE SPECIALIST Ot 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 03/01/2017 LORETTA MARTINO GROUP INSURANCE SPECIALIST Ot 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 03/01/2017 LORETTA MARTINO GROUP INSURANCE SPECIALIST Ot I89.0 LYMPHEDEMA, NOT ELSEWHERE CLASSIFIED 03/01/2017 LORETTA MARTINO GROUP INSURANCE SPECIALIST Ot L97.512 NON-PRS CHRONIC ULCER OTH PRT RIGHT FOOT 03/01/2017 LORETTA MARTINO GROUP INSURANCE SPECIALIST Ot N18.6 END STAGE RENAL DISEASE 03/01/2017 LORETTA MARTINO GROUP INSURANCE SPECIALIST Ot S90.931A UNSP SUPERFICIAL INJURY OF RIGHT GREAT T 03/06/2017 LORETTA MARTINO GROUP INSURANCE SPECIALIST Ot E11.621 TYPE 2 DIABETES MELLITUS WITH FOOT ULCER 03/06/2017 LORETTA MARTINO GROUP INSURANCE SPECIALIST Ot E66.01 MORBID (SEVERE) OBESITY DUE TO EXCESS CA 03/06/2017 LORETTA MARTINO GROUP INSURANCE SPECIALIST Ot I50.20 UNSPECIFIED SYSTOLIC (CONGESTIVE) HEART 03/06/2017 LORETTA MARTINO GROUP INSURANCE SPECIALIST Ot 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 03/06/2017 LORETTA MARTINO GROUP INSURANCE SPECIALIST Ot 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 03/06/2017 LORETTA MARTINO GROUP INSURANCE SPECIALIST Ot I89.0 LYMPHEDEMA, NOT ELSEWHERE CLASSIFIED 03/06/2017 LORETTA MARTINO GROUP INSURANCE SPECIALIST Ot L97.512 NON-PRS CHRONIC ULCER OTH PRT RIGHT FOOT 03/06/2017 LORETTA MARTINO GROUP INSURANCE SPECIALIST Ot N18.6 END STAGE RENAL DISEASE 03/06/2017 LORETTA MARTINO GROUP INSURANCE SPECIALIST Ot S90.931A UNSP SUPERFICIAL INJURY OF RIGHT GREAT T 03/11/2017 LORETTA MARTINO GROUP INSURANCE SPECIALIST Ot E11.621 TYPE 2 DIABETES MELLITUS WITH FOOT ULCER 03/11/2017 LORETTA MARTINO GROUP INSURANCE SPECIALIST Ot E66.01 MORBID (SEVERE) OBESITY DUE TO EXCESS CA 03/11/2017 LORETTA MARTINO GROUP INSURANCE SPECIALIST Ot I50.20 UNSPECIFIED SYSTOLIC (CONGESTIVE) HEART 03/11/2017 LORETTA MARTINO GROUP INSURANCE SPECIALIST Ot 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 03/11/2017 LORETTA MARTINO GROUP INSURANCE SPECIALIST Ot 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 03/11/2017 LORETTA MARTINO GROUP INSURANCE SPECIALIST Ot I89.0 LYMPHEDEMA, NOT ELSEWHERE CLASSIFIED 03/11/2017 LORETTA MARTINO GROUP INSURANCE SPECIALIST Ot L97.512 NON-PRS CHRONIC ULCER OTH PRT RIGHT FOOT 03/11/2017 LORETTA MARTINO GROUP INSURANCE SPECIALIST Ot N18.6 END STAGE RENAL DISEASE 03/12/2017 LORETTA MARTINO GROUP INSURANCE SPECIALIST Ot E11.621 TYPE 2 DIABETES MELLITUS WITH FOOT ULCER 03/12/2017 LORETTA MARTINO GROUP INSURANCE SPECIALIST Ot E66.01 MORBID (SEVERE) OBESITY DUE TO EXCESS CA 03/12/2017 LORETTA MARTINO GROUP INSURANCE SPECIALIST Ot I50.20 UNSPECIFIED SYSTOLIC (CONGESTIVE) HEART 03/12/2017 LORETTA MARTINO GROUP INSURANCE SPECIALIST Ot 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 03/12/2017 LORETTA MARTINO GROUP INSURANCE SPECIALIST Ot 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 03/12/2017 LORETTA MARTINO GROUP INSURANCE SPECIALIST Ot I89.0 LYMPHEDEMA, NOT ELSEWHERE CLASSIFIED 03/12/2017 LORETTA MARTINO GROUP INSURANCE SPECIALIST Ot L97.512 NON-PRS CHRONIC ULCER OTH PRT RIGHT FOOT 03/12/2017 LORETTA MARTINO GROUP INSURANCE SPECIALIST Ot N18.6 END STAGE RENAL DISEASE 03/18/2017 LORETTA MARTINO GROUP INSURANCE SPECIALIST Ot E11.621 TYPE 2 DIABETES MELLITUS WITH FOOT ULCER 03/18/2017 LORETTA MARTINO GROUP INSURANCE SPECIALIST Ot E66.01 MORBID (SEVERE) OBESITY DUE TO EXCESS CA 03/18/2017 LORETTA MARTINO GROUP INSURANCE SPECIALIST Ot I50.20 UNSPECIFIED SYSTOLIC (CONGESTIVE) HEART 03/18/2017 LORETTA MARTINO GROUP INSURANCE SPECIALIST Ot 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 03/18/2017 LORETTA MARTINO GROUP INSURANCE SPECIALIST Ot I89.0 LYMPHEDEMA, NOT ELSEWHERE CLASSIFIED 03/18/2017 LORETTA MARTINO GROUP INSURANCE SPECIALIST Ot L97.512 NON-PRS CHRONIC ULCER OTH PRT RIGHT FOOT 03/18/2017 LORETTA MARTINO GROUP INSURANCE SPECIALIST Ot N18.6 END STAGE RENAL DISEASE 03/18/2017 LORETTA MARTINO GROUP INSURANCE SPECIALIST Ot S90.931A UNSP SUPERFICIAL INJURY OF RIGHT GREAT T 03/18/2017 LORETTA MARTINO GROUP INSURANCE SPECIALIST Ot Z68.43 BODY MASS INDEX (BMI) 50-59.9 , ADULT 03/22/2017 LORETTA MARTINO GROUP INSURANCE SPECIALIST Ot E11.621 TYPE 2 DIABETES MELLITUS WITH FOOT ULCER 03/22/2017 LORETTA MARTINO GROUP INSURANCE SPECIALIST Ot E66.01 MORBID (SEVERE) OBESITY DUE TO EXCESS CA 03/22/2017 LORETTA MARTINO GROUP INSURANCE SPECIALIST Ot I50.20 UNSPECIFIED SYSTOLIC (CONGESTIVE) HEART 03/22/2017 LORETTA MARTINO GROUP INSURANCE SPECIALIST Ot 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 03/22/2017 LORETTA MARTINO GROUP INSURANCE SPECIALIST Ot 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 03/22/2017 LORETTA MARTINO GROUP INSURANCE SPECIALIST Ot I89.0 LYMPHEDEMA, NOT ELSEWHERE CLASSIFIED 03/22/2017 LORETTA MARTINO GROUP INSURANCE SPECIALIST Ot L97.512 NON-PRS CHRONIC ULCER OTH PRT RIGHT FOOT 03/22/2017 LORETTA MARTINO GROUP INSURANCE SPECIALIST Ot N18.6 END STAGE RENAL DISEASE 03/22/2017 LORETTA MARTINO GROUP INSURANCE SPECIALIST Ot S90.931A UNSP SUPERFICIAL INJURY OF RIGHT GREAT T 03/27/2017 LORETTA MARTINO GROUP INSURANCE SPECIALIST Ot E11.621 TYPE 2 DIABETES MELLITUS WITH FOOT ULCER 03/27/2017 LORETTA MARTINO GROUP INSURANCE SPECIALIST Ot E66.01 MORBID (SEVERE) OBESITY DUE TO EXCESS CA 03/27/2017 LORETTA MARTINO GROUP INSURANCE SPECIALIST Ot I50.20 UNSPECIFIED SYSTOLIC (CONGESTIVE) HEART 03/27/2017 LORETTA MARTINO GROUP INSURANCE SPECIALIST Ot 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 03/27/2017 LORETTA MARTINO GROUP INSURANCE SPECIALIST Ot I89.0 LYMPHEDEMA, NOT ELSEWHERE CLASSIFIED 03/27/2017 LORETTA MARTINO GROUP INSURANCE SPECIALIST Ot L97.512 NON-PRS CHRONIC ULCER OTH PRT RIGHT FOOT 03/27/2017 LORETTA MARTINO GROUP INSURANCE SPECIALIST Ot N18.6 END STAGE RENAL DISEASE 03/27/2017 LORETTA MARTINO GROUP INSURANCE SPECIALIST Ot S90.931A UNSP SUPERFICIAL INJURY OF RIGHT GREAT T 03/27/2017 LORETTA MARTINO GROUP INSURANCE SPECIALIST Ot Z68.43 BODY MASS INDEX (BMI) 50-59.9 , ADULT 03/27/2017 LORETTA MARTINO GROUP INSURANCE SPECIALIST Ot E11.621 TYPE 2 DIABETES MELLITUS WITH FOOT ULCER 03/27/2017 LORETTA MARTINO GROUP INSURANCE SPECIALIST Ot E66.01 MORBID (SEVERE) OBESITY DUE TO EXCESS CA 03/27/2017 LORETTA MARTINO GROUP INSURANCE SPECIALIST Ot I50.20 UNSPECIFIED SYSTOLIC (CONGESTIVE) HEART 03/27/2017 LORETTA MARTINO GROUP INSURANCE SPECIALIST Ot 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 03/27/2017 LORETTA MARTINO GROUP INSURANCE SPECIALIST Ot 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 03/27/2017 LOR[employer] Ot I89.0 LYMPHEDEMA, NOT ELSEWHERE CLASSIFIED 03/27/2017 [employer]IST Ot L97.511 NON-PRS CHRONIC ULCER OTH PRT R FOOT MARSH 03/27/2017 [employer] Ot N18.6 END STAGE RENAL DISEASE 03/27/2017 [employer] INS[employer]IST Ot S90.931A UNSP SUPERFICIAL INJURY OF RIGHT GREAT T 03/28/2017 [employer] INS[employer]IST Ot E11.621 TYPE 2 DIABETES MELLITUS WITH FOOT ULCER 03/28/2017 [employer]IST Ot 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 03/28/2017 [employer] Ot I89.0 LYMPHEDEMA, NOT ELSEWHERE CLASSIFIED 03/28/2017 [employer]IST Ot L97.512 NON-PRS CHRONIC ULCER OTH PRT RIGHT FOOT 03/29/2017 [employer]IST Ot E11.621 TYPE 2 DIABETES MELLITUS WITH FOOT ULCER 03/29/2017 [employer]IST Ot E66.01 MORBID (SEVERE) OBESITY DUE TO EXCESS CA 03/29/2017 [employer] Ot I50.20 UNSPECIFIED SYSTOLIC (CONGESTIVE) HEART 03/29/2017 [employer]IST Ot 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 03/29/2017 [employer] Ot 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 03/29/2017 [employer] Ot I89.0 LYMPHEDEMA, NOT ELSEWHERE CLASSIFIED 03/29/2017 [employer]IST Ot L97.512 NON-PRS CHRONIC ULCER OTH PRT RIGHT FOOT 03/29/2017 [employer] Ot N18.6 END STAGE RENAL DISEASE 03/29/2017 [employer]IST Ot S90.931A UNSP SUPERFICIAL INJURY OF RIGHT GREAT T 04/03/2017 [employer]IST Ot E11.621 TYPE 2 DIABETES MELLITUS WITH FOOT ULCER 04/03/2017 [employer]IST Ot 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 04/03/2017 [employer] Ot I89.0 LYMPHEDEMA, NOT ELSEWHERE CLASSIFIED 04/03/2017 [employer] Ot L97.512 NON-PRS CHRONIC ULCER OTH PRT RIGHT FOOT 04/04/2017 [employer]IST Ot E11.621 TYPE 2 DIABETES MELLITUS WITH FOOT ULCER 04/04/2017 [employer]IST Ot 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 04/04/2017 [employer] APRN Ot I89.0 LYMPHEDEMA, NOT ELSEWHERE CLASSIFIED 04/04/2017 [employer]IST Ot L97.511 NON-PRS CHRONIC ULCER OTH PRT R FOOT [place] 04/12/2017 [employer]IST Ot E11.621 TYPE 2 DIABETES MELLITUS WITH FOOT ULCER 04/12/2017 LORETTA MARTINO GROUP INSURANCE SPECIALIST Ot 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 04/12/2017 OLRETTA MARTINO APRN Ot I89.0 LYMPHEDEMA, NOT ELSEWHERE CLASSIFIED 04/12/2017 LORETTA MARTINO [employer] INSURANCE SPECIALIST Ot L97.511 NON-PRS CHRONIC ULCER OTH PRT R FOOT MARSH 04/16/2017 LORETTA MARTINO GROUP INSURANCE SPECIALIST Ot E11.621 TYPE 2 DIABETES MELLITUS WITH FOOT ULCER 04/16/2017 LORETTA MARTINO GROUP INSURANCE SPECIALIST Ot E66.01 MORBID (SEVERE) OBESITY DUE TO EXCESS CA 04/16/2017 LORETTA MARTINO GROUP INSURANCE SPECIALIST Ot I50.20 UNSPECIFIED SYSTOLIC (CONGESTIVE) HEART 04/16/2017 LORETTA MARTINO GROUP INSURANCE SPECIALIST Ot 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 04/16/2017 LORETTA MARTINO GROUP INSURANCE SPECIALIST Ot 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 04/16/2017 LORETTA MARTINO GROUP INSURANCE SPECIALIST Ot I89.0 LYMPHEDEMA, NOT ELSEWHERE CLASSIFIED 04/16/2017 LORETTA MARTINO GROUP INSURANCE SPECIALIST Ot L97.511 NON-PRS CHRONIC ULCER OTH PRT R FOOT MARSH 04/16/2017 LORETTA MARTINO GROUP INSURANCE SPECIALIST Ot N18.6 END STAGE RENAL DISEASE 04/16/2017 LORETTA MARTINO GROUP INSURANCE SPECIALIST Ot S90.931A UNSP SUPERFICIAL INJURY OF RIGHT GREAT T 04/18/2017 LORETTA MARTINO GROUP INSURANCE SPECIALIST Ot E11.621 TYPE 2 DIABETES MELLITUS WITH FOOT ULCER 04/18/2017 LORETTA MARTINO GROUP INSURANCE SPECIALIST Ot E66.01 MORBID (SEVERE) OBESITY DUE TO EXCESS CA 04/18/2017 LORETTA MARTINO GROUP INSURANCE SPECIALIST Ot I50.20 UNSPECIFIED SYSTOLIC (CONGESTIVE) HEART 04/18/2017 LORETTA MARTINO GROUP INSURANCE SPECIALIST Ot 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 04/18/2017 LORETTA MARTINO APRN Ot 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 04/18/2017 LORETTA MARTINO APRN Ot I89.0 LYMPHEDEMA, NOT ELSEWHERE CLASSIFIED 04/18/2017 LORETTA MARTINO GROUP INSURANCE SPECIALIST Ot L97.511 NON-PRS CHRONIC ULCER OTH PRT R FOOT MARSH 04/18/2017 LORETTA MARTINO GROUP INSURANCE SPECIALIST Ot N18.6 END STAGE RENAL DISEASE 04/18/2017 LORETTA MARTINO APRN Ot S90.931A UNSP SUPERFICIAL INJURY OF RIGHT GREAT T 12/18/2017 ARLETTE DURÁN MD Ot 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 12/18/2017 ARLETTE DURÁN MD Ot E78.00 PURE HYPERCHOLESTEROLEMIA, UNSPECIFIED 12/18/2017 ARLETTE DURÁN MD Ot E87.70 FLUID OVERLOAD, UNSPECIFIED 12/18/2017 ARLETTE DURÁN MD Ot G43.909 MIGRAINE, UNSP, NOT INTRACTABLE, WITHOUT 12/18/2017 ARLETTE DURÁN MD Ot I12.0 HYP CHR KIDNEY DISEASE W STAGE 5 CHR KID 12/18/2017 ARLETTE DURÁN MD Ot I25.10 ATHSCL HEART DISEASE OF [place] CORONARY 12/18/2017 ARLETTE DURÁN MD Ot I73.9 PERIPHERAL VASCULAR DISEASE, UNSPECIFIED 12/18/2017 ARLETTE DURÁN MD Ot J18.9 PNEUMONIA, UNSPECIFIED ORGANISM 12/18/2017 ARLETTE DURÁN MD Ot J43.9 EMPHYSEMA, UNSPECIFIED 12/18/2017 ARLETTE DURÁN MD Ot N18.6 END STAGE RENAL DISEASE 12/18/2017 ARLETTE DURÁN MD Ot R06.02 SHORTNESS OF BREATH 12/18/2017 ARLETTE DURÁN MD Ot Z77.22 CNTCT W AND EXPSR TO ENVIRON TOBACCO SMO 12/18/2017 ARLETTE DURÁN MD Ot Z79.02 SHAPER MACHINE HAND (CURRENT) USE OF ANTITHROMBOTI 12/18/2017 ARLETTE DURÁN MD Ot Z79.4 SHAPER MACHINE HAND (CURRENT) USE OF INSULIN 12/18/2017 ARLETTE DURÁN MD, Ot Z79.51 FDC (CURRENT) USE OF INHALED STERO 12/18/2017 ARLETTE DURÁN MD, Ot Z79.82 SHAPER MACHINE HAND (CURRENT) USE OF ASPIRIN 12/18/2017 ARLETTE DURÁN MD Ot Z87.19 PERSONAL HISTORY OF OTHER DISEASES OF TH 12/18/2017 ARLETTE DURÁN MD Ot Z88.7 ALLERGY STATUS TO SERUM AND VACCINE STAT 12/18/2017 ARLETTE DURÁN MD Ot Z90.710 ACQUIRED ABSENCE OF BOTH CERVIX AND UTER 12/18/2017 ARLETTE DURÁN MD Ot Z91.048 OTHER NONMEDICINAL SUBSTANCE ALLERGY STA 12/18/2017 ARLETTE DURÁN MD Ot Z93.0 TRACHEOSTOMY STATUS 12/18/2017 ARLETTE DURÁN MD Ot Z96.652 PRESENCE OF LEFT ARTIFICIAL KNEE JOINT 12/18/2017 ARLETTE DURÁN MD Ot Z98.890 OTHER SPECIFIED POSTPROCEDURAL STATES 12/18/2017 ARLETTE DURÁN MD Ot Z99.2 DEPENDENCE ON RENAL DIALYSIS 12/20/2017 ARLETTE DURÁN MD Ot 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 12/20/2017 ARLETTE DURÁN MD Ot E78.00 PURE HYPERCHOLESTEROLEMIA, UNSPECIFIED 12/20/2017 ARLETTE DURÁN MD Ot E87.70 FLUID OVERLOAD, UNSPECIFIED 12/20/2017 ARLETTE DURÁN MD Ot G43.909 MIGRAINE, UNSP, NOT INTRACTABLE, WITHOUT 12/20/2017 ARLETTE DURÁN MD Ot I12.0 HYP CHR KIDNEY DISEASE W STAGE 5 CHR KID 12/20/2017 ARLETTE DURÁN MD Ot I25.10 ATHSCL HEART DISEASE OF [place] CORONARY 12/20/2017 ARLETTE DURÁN MD Ot I73.9 PERIPHERAL VASCULAR DISEASE, UNSPECIFIED 12/20/2017 ARLETTE DURÁN MD, Ot J18.9 PNEUMONIA, UNSPECIFIED ORGANISM 12/20/2017 ARLETTE DURÁN MD, Ot J43.9 EMPHYSEMA, UNSPECIFIED 12/20/2017 ARLETTE DURÁN MD, Ot N18.6 END STAGE RENAL DISEASE 12/20/2017 ARLETTE DURÁN MD Ot R06.02 SHORTNESS OF BREATH 12/20/2017 ARLETTE DURÁN MD Ot Z77.22 CNTCT W AND EXPSR TO ENVIRON TOBACCO SMO 12/20/2017 ARLETTE DURÁN MD Ot Z79.02 SHAPER MACHINE HAND (CURRENT) USE OF ANTITHROMBOTI 12/20/2017 ARLETTE DURÁN MD Ot Z79.4 SHAPER MACHINE HAND (CURRENT) USE OF INSULIN 12/20/2017 ARLETTE DURÁN MD, Ot Z79.51 SHAPER MACHINE HAND (CURRENT) USE OF INHALED STERO 12/20/2017 ARLETTE DURÁN MD Ot Z79.82 FDC (CURRENT) USE OF ASPIRIN 12/20/2017 ARLETTE DURÁN MD Ot Z87.19 PERSONAL HISTORY OF OTHER DISEASES OF TH 12/20/2017 ARLETTE DURÁN MD Ot Z88.7 ALLERGY STATUS TO SERUM AND VACCINE STAT 12/20/2017 ARLETTE DURÁN MD Ot Z90.710 ACQUIRED ABSENCE OF BOTH CERVIX AND UTER 12/20/2017 ARLETTE DURÁN MD Ot Z91.048 OTHER NONMEDICINAL SUBSTANCE ALLERGY STA 12/20/2017 ARLETTE DURÁN MD Ot Z93.0 TRACHEOSTOMY STATUS 12/20/2017 ARLETTE DURÁN MD Ot Z96.652 PRESENCE OF LEFT ARTIFICIAL KNEE JOINT 12/20/2017 ARLETTE DURÁN MD Ot Z98.890 OTHER SPECIFIED POSTPROCEDURAL STATES 12/20/2017 ARLETTE DURÁN MD Ot Z99.2 DEPENDENCE ON RENAL DIALYSIS 12/23/2017 MCKENNA HEBERT Ot Z89.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 12/24/2017 MCKENNA HEBERT Ot Z89.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 12/27/2017 MCKENNA HEBERT [facility] Ot Z89.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 Procedures Code Description Performed By Performed On Cardiolog Madan Waller 05/07/2012 13524 MEASURE BLOOD OXYGEN LEVEL 05/08/2012 53177 MICRO ALBUMIN-IN HOUSE 05/20/2012 86956 A1C (IN-HOUSE) 05/20/2012 35681 MICROALBUMIN 05/20/2012 32301 ROUTINE VENIPUNCTURE 06/04/2012 99447 EKG, TRACING (IN-HOUSE) 06/04/2012 20238 CBC 06/04/2012 44456 CMP 06/04/2012 83793 LIPID PANEL 06/04/2012 [id number] GFR CALC (RESULT ONLY) 06/04/2012 98463 TSH 06/04/2012 57535 XRAY CHEST 2 VIEW 06/05/2012 68167 ROUTINE VENIPUNCTURE 06/20/2012 68508 BMP 06/20/2012 5828782 GFR CALC (RESULT ONLY) 06/20/2012 02073 ROUTINE VENIPUNCTURE 07/16/2012 86525 BMP 07/16/2012 9333730 GFR CALC (RESULT ONLY) 07/16/2012 59012 ROUTINE VENIPUNCTURE 08/15/2012 13912 RENAL PROFILE 08/15/2012 9289795 GFR CALC (RESULT ONLY) 08/15/2012 62863 ROUTINE VENIPUNCTURE 08/19/2012 07825 CMP 08/19/2012 7168319 GFR CALC (RESULT ONLY) 08/19/2012 10891 PHOSPHORUS 08/19/2012 81674 CMP 09/03/2012 76006 LIPID PANEL 09/03/2012 44123 OXIMETRY 09/03/2012 30133 ROUTINE VENIPUNCTURE 09/09/2012 06039 CMP 09/09/2012 84306 LIPID PANEL 09/09/2012 5083803 GFR CALC (RESULT ONLY) 09/09/2012 73812 ROUTINE VENIPUNCTURE 09/18/2012 97511 BMP 09/18/2012 7871308 GFR CALC (RESULT ONLY) 09/18/2012 77941 ROUTINE VENIPUNCTURE 10/01/2012 87041 US RENAL ULTRASOUND, COMP 10/01/2012 37529 VITAMIN D I-25 DIHYDROXY 10/01/2012 46111 PTH (intact) (ORDER ONLY) 10/01/2012 50280 A1C (IN-HOUSE) 10/01/2012 51127 CMP 10/01/2012 23062 MAGNESIUM 10/01/2012 2692593 GFR CALC (RESULT ONLY) 10/01/2012 42621 UA W/MICROSCOPY 10/01/2012 61212 VITAMIN D 25-HYDROXY (D2,D3 , TOTAL) 10/01/2012 58927 HEPATITIS PROFILE 10/01/2012 5856484 CALCIUM (RESULT ONLY) 10/02/2012 5488172 PTH INTACT JC (RESULT ONLY) 10/02/2012 PRO/CRE URINE PROTEIN TO CREATNINE RATIO 10/02/2012 01445 HIV ANTIBODIES (RML) 10/02/2012 36328 ROUTINE VENIPUNCTURE 12/08/2012 97268 UA W/ CULTURE IF INDICATED 12/08/2012 14725 CBC 12/08/2012 30023 RENAL PROFILE 12/08/2012 9155989 GFR CALC (RESULT ONLY) 12/08/2012 PRO/CRE URINE PROTEIN TO CREATNINE RATIO 12/08/2012 03754 A1C (IN-HOUSE) 12/26/2012 Cardiolog Syl Hsieh 01/22/2013 31820 SLEEP STUDY 02/04/2013 20985 ROUTINE VENIPUNCTURE 03/02/2013 88167 UA W/ CULTURE IF INDICATED 03/02/2013 48546 CBC 03/02/2013 94651 RENAL PROFILE 03/02/2013 0183983 GFR CALC (RESULT ONLY) 03/02/2013 90646 MAMMOGRAM, SCREENING 03/04/2013 79748 A1C (IN-HOUSE) 03/30/2013 87325 ROUTINE VENIPUNCTURE 05/13/2013 81714 UA W/ CULTURE IF INDICATED 05/13/2013 99362 A1C (IN-HOUSE) 05/13/2013 94634 CBC 05/13/2013 56628 RENAL PROFILE 05/13/2013 96856 IRON SERUM 05/13/2013 18752 IRON BNDNG CAP 05/13/2013 3370168 GFR CALC (RESULT ONLY) 05/13/2013 76849 HEPATITIS PROFILE 05/13/2013 84696 FERRITIN 05/13/2013 23423 ANCA PANEL (C AND P) 05/13/2013 95070 C 4 COMPLEMENT SERUM 05/13/2013 46857 CULTURE URINE 05/13/2013 ANAANA SAIRA ANALYZER (SCREEN) 05/13/2013 IRGROUP IRON GROUP (Iron,TIBC, Ferritin) 05/13/2013 PRO/CRE URINE PROTEIN TO CREATNINE RATIO 05/13/2013 13564 ROUTINE VENIPUNCTURE 06/22/2013 96918 OXIMETRY 06/22/2013 13112 CBC 06/22/2013 46065 CMP 06/22/2013 7231660 GFR CALC (RESULT ONLY) 06/22/2013 5059169 SPTYPE 06/23/2013 55844 ROUTINE VENIPUNCTURE 07/06/2013 04188 BMP 07/06/2013 72371 OXIMETRY 07/06/2013 08026 OXIMETRY 07/09/2013 35597 SLEEP STUDY (HOSPITAL- SLEEP STUDY) 07/09/2013 44966 A1C (IN-HOUSE) 08/28/2013 67002 OXIMETRY 09/10/2013 20521 OXIMETRY 09/28/2013 BARON ARGUELLO 09/28/2013 18487 A1C (IN-HOUSE) 11/27/2013 54253 MICROALBUMIN 12/30/2013 01246 MICRO ALBUMIN-IN HOUSE 12/30/2013 23314 OXIMETRY 07/21/2014 Results Test Result Range Complete [...] - 04/03/16 21:16 Bacterial blood culture NG NR Blood lactic acid measurement (moles/volume) - 04/03/16 [...] culture NOANA NRG Gram stain microscopy - 06/19/16 13:48 Gram stain microscopy Few coryneform gram variable rods NRG Bacteria identification in wound by culture - 06/19/16 13:48 Bacteria identification in wound by culture [id number] NR FREE TEXT EXTERNAL SENSITIVITY REPORTED 06/21/16 8:45 NRG QUANTITY OF GROWTH Scant Growth NR Bacterial susceptibility panel - 06/19/16 13:48 Gentamicin [...] 13:40 Bacteria identification in wound by culture [id number] NRG FREE TEXT EXTERNAL (NOT JK) NRG QUANTITY OF GROWTH Scant Growth NRG FREE TEXT ENTRY 2 NO FURTHER STUDIES UNLESS REQUESTED NR Bacterial susceptibility panel - 08/02/16 13:40 Gentamicin [...] 14:01 Bacteria identification in wound by culture [id number] NRG FREE TEXT EXTERNAL PLEASE NOTIFY MICRO [...] 13:38 Bacteria identification in wound by culture [id number] NRG FREE TEXT EXTERNAL RML ID: CORYNEFORM BACTERIA, NRG QUANTITY OF GROWTH Isolated NRG FREE TEXT ENTRY 2 PROBABLE ARTHOBACTER SPECIES NRG FREE TEXT ENTRY 3 SENSITIVITY REPORTED 12/11/16 11:15 NRG Bacterial susceptibility panel - 11/29/16 13:38 Oxacillin [...] 14:49 Bacteria identification in wound by culture [id number] NRG FREE TEXT EXTERNAL SENSITIVITY REPORTED 02/03 10:33 [...] (mass/volume) 74 mg/dL 7-18 Serum or plasma creatinine measurement (mass/volume) 8.70 mg/dL 0.60-1.30 Serum or plasma urea nitrogen/creatinine [...] g/dL 3.2-4.5 CALCIUM CORRECTED 9.2 mg/dL 8.5-10.1 Serum or plasma lithium measurement (moles/volume) - 12/18/17 19:40 BNP level 139.8 pg/mL <100.0 Bacterial blood culture - 12/18/17 19:40 QUANTITY OF GROWTH . NRG Bacterial blood culture SEE COMMEN NRG Bacterial blood culture - 12/18/17 20:20 Bacterial blood culture [facility] Complete blood count (CBC) with automated white blood cell (WBC) differential - 03/12/18 21:20 Blood leukocytes automated count (number/volume) 7.0 10*3/uL 4.3-11.0 Blood erythrocytes automated count (number/volume) 3.47 10*6/uL 4.35-5.85 Venous blood hemoglobin measurement (mass/volume) 10.9 g/dL 11.5-16.0 Blood hematocrit (volume fraction) 36 % 35-52 Automated erythrocyte mean corpuscular volume 103 [foz_us] 80-99 Automated erythrocyte mean corpuscular hemoglobin (mass per erythrocyte) 31 pg 25-34 Automated erythrocyte mean corpuscular hemoglobin concentration measurement ( mass/volume) 30 g/dL 32-36 Automated erythrocyte distribution width ratio 18.4 % 10.0-14.5 Automated blood platelet count (count/volume) 164 10*3/uL 130-400 Automated blood platelet mean volume measurement 12.8 [foz_us] 7.4-10.4 Automated blood neutrophils/100 leukocytes 87 % 42-75 Automated blood lymphocytes/100 leukocytes 12 % 12-44 Blood monocytes/100 leukocytes 1 % 0-12 Automated blood eosinophils/100 leukocytes 0 % 0-10 Automated blood basophils/100 leukocytes 0 % 0-10 Blood neutrophils automated count (number/volume) 6.1 10*3 1.8-7.8 Blood lymphocytes automated count (number/volume) 0.8 10*3 1.0-4.0 Blood monocytes automated count (number/volume) 0.0 10*3 0.0-1.0 Automated eosinophil count 0.0 10*3/uL 0.0-0.3 Automated blood basophil count (count/volume) 0.0 10*3/uL 0.0-0.1 Encounters ACCT No. Visit Date/Time Discharge Status Pt. Type Provider Facility Loc./Unit Complaint [id number] 07/21/2014 14:45:00 07/21/2014 23:59:59 CLS Outpatient MCKENNA HEBERT APRN [id number] 06/21/2014 14:43:00 06/21/2014 23:59:59 CLS Outpatient MCKENNA HEBERT APRN [id number] 04/23/2014 10:28:00 04/23/2014 23:59:59 CLS Outpatient MCKENNA HEBERT APRN [id number] 04/23/2014 10:28:00 04/23/2014 23:59:59 CLS Outpatient MCKENNA HEBERT APRN [id number] 03/03/2014 10:09:00 03/03/2014 23:59:59 CLS Outpatient MCKENNA HEBERT APRN [id number] 02/19/2014 10:28:00 02/19/2014 23:59:59 CLS Outpatient MCKENNA HEBERT APRN [id number] 02/01/2014 10:22:00 02/01/2014 23:59:59 CLS Outpatient MCKENNA HEBERT APRN [id number] 01/08/2014 11:26:00 01/08/2014 23:59:59 CLS Outpatient GIACOMO SANDOVAL MD [id number] 12/30/2013 15:01:00 12/30/2013 23:59:59 CLS Outpatient MCKENNA HEBERT APRN [id number] 12/30/2013 15:01:00 12/30/2013 23:59:59 CLS Outpatient MCKENNA HEBERT APRN [id number] 12/04/2013 09:15:00 12/04/2013 23:59:59 CLS Outpatient MCKENNA HEBERT APRN [id number] 11/27/2013 12:11:00 11/27/2013 23:59:59 CLS Outpatient MCKENNA HEBERT APRN [id number] 11/27/2013 12:11:00 11/27/2013 23:59:59 CLS Outpatient MCKENNA HEBERT APRN [id number] 09/28/2013 09:05:00 09/28/2013 23:59:59 CLS Outpatient MCKENNA HEBERT APRN [id number] 09/09/2013 17:41:00 09/09/2013 23:59:59 CLS Outpatient GIACOMO SANDOVAL MD [id number] 08/28/2013 09:44:00 08/28/2013 23:59:59 CLS Outpatient MCKENNA HEBERT APRN [id number] 07/06/2013 15:21:00 07/06/2013 23:59:59 CLS Outpatient MCKENNA HEBERT APRN [id number] 06/22/2013 15:15:00 06/22/2013 23:59:59 CLS Outpatient GIACOMO SANDOVAL MD [id number] 06/22/2013 15:15:00 06/22/2013 23:59:59 CLS Outpatient GIACOMO SANDOVAL MD [id number] 05/13/2013 13:11:00 05/13/2013 23:59:59 CLS Outpatient MCKENNA HEBERT APRN [id number] 04/27/2013 09:15:00 04/27/2013 23:59:59 CLS Outpatient MCKENNA HEBERT APRN [id number] 03/30/2013 09:20:00 03/30/2013 23:59:59 CLS Outpatient MCKENNA HEBERT APRN [id number] 03/30/2013 09:20:00 03/30/2013 23:59:59 CLS Outpatient MCKENNA HEBERT APRN [id number] 03/04/2013 15:11:00 03/04/2013 23:59:59 CLS Outpatient MILEY FUNES APRN [id number] 03/02/2013 08:06:00 03/02/2013 23:59:59 CLS Outpatient GIACOMO SANDOVAL MD [id number] 02/04/2013 09:41:00 02/04/2013 23:59:59 CLS Outpatient ZAINA HURTADO DO [id number] 01/22/2013 09:52:00 01/22/2013 23:59:59 CLS Outpatient JONNIE ADORNO MD [id number] 12/26/2012 09:37:00 12/26/2012 23:59:59 CLS Outpatient MCKENNA HEBERT APRN [id number] 12/26/2012 09:37:00 12/26/2012 23:59:59 CLS Outpatient MCKENNA HEBERT APRN [id number] 06/20/2012 09:05:00 06/20/2012 23:59:59 CLS Outpatient [id number] 06/04/2012 09:15:00 06/04/2012 23:59:59 CLS Outpatient [id number] 05/20/2012 14:04:00 05/20/2012 23:59:59 CLS Outpatient MCKENNA HEBERT APRN [id number] 05/07/2012 08:50:00 05/07/2012 23:59:59 CLS Outpatient [id number] 12/08/2012 09:09:00 Document Registration [id number] 10/29/2012 11:49:00 Document Registration [id number] 10/01/2012 09:12:00 Document Registration [id number] 09/18/2012 07:34:00 Document Registration [id number] 09/09/2012 09:07:00 Document Registration [id number] 09/03/2012 07:48:00 Document Registration [id number] 08/19/2012 09:37:00 Document Registration [id number] 08/15/2012 09:23:00 Document Registration [id number] 07/16/2012 11:03:00 Document Registration [id number] 12/09/2016 22:06:00 Document Registration [id number] 10/17/2017 13:30:00 10/17/2017 23:59:59 CLS Outpatient EMI[facility] [id number] 12/07/2016 12:00:00 Document Registration [id number] 12/10/2017 13:05:00 12/27/2017 16:01:00 DIS Outpatient MCKENNA HEBERTP [facility] REHAB S/P L BKA [id number] 12/18/2017 19:35:00 12/18/2017 23:47:00 DIS Emergency ARLETTE DURÁN MD [facility] ER SOA [id number] 03/21/2017 12:31:00 03/21/2017 23:59:59 CLS Outpatient LORETTA MARTINO [employer] INSUR[employer] SPECIALIST [facility] WOUNDCARE [id number] 03/14/2017 12:44:00 03/14/2017 23:59:59 CLS Outpatient LORETTA MARTINO [employer] INSURANCE SPECIALIST [facility] WOUNDCARE [id number] 03/07/2017 12:46:00 03/07/2017 23:59:59 CLS Outpatient LORETTA MARTINO [employer] INSURANCE SPECIALIST [facility] WOUNDC[facility] [id number] 02/28/2017 13:19:00 02/28/2017 23:59:59 CLS Outpatient GUNNER, LORETTA R GROUP INSURANCE SPECIALIST [facility] WOUNDCARE [id number] 02/14/2017 13:13:00 02/14/2017 23:59:59 CLS Outpatient GUNNER LORETTA R [employer] INSURANCE SPECIALIST [facility] WOUNDCARE [id number] 02/07/2017 13:15:00 02/07/2017 23:59:59 CLS Outpatient GUNNER LORETTA R [employer]UR[employer] SPECIALIST [facility] WOUNDCARE [id number] 01/31/2017 13:25:00 01/31/2017 23:59:59 CLS Outpatient GUNNER LORETTA R [employer] INSUR[employer] SPECIALIST [facility] WOUND[facility] [id number] 01/24/2017 12:49:00 01/24/2017 23:59:59 CLS Outpatient GUNNER LORETTA R [employer]UR[employer] SPECIALIST [facility] W[facility] [id number] 01/17/2017 12:42:00 01/17/2017 23:59:59 CLS Outpatient GUNNER LORETTA R [employer]UR[employer] SPECIALIST [facility] WOUNDCARE [id number] 01/15/2017 12:22:00 01/15/2017 23:59:59 CLS Outpatient AUDRAALLYSON ALDA Mando STEVENS [facility] CARD I51.7 [id number] 01/10/2017 12:56:00 01/10/2017 23:59:59 CLS Outpatient GUNNER L[employer]ETTA R [employer]IST [facility] WOUNDCARE [id number] 12/27/2016 13:14:00 12/27/2016 23:59:59 CLS Outpatient GUNNER LORETTA R [employer]UR[employer] SPECIALIST [facility] WOUNDCARE [id number] 12/25/2016 00:11:00 12/25/2016 23:59:59 CLS Preadmit GUNNER LORETTA R [employer] INSURANCE SPECIALIST [facility] RIGHT FOOT WOUND [id number] 09/26/2016 12:45:00 12/24/2016 00:01:00 DIS Outpatient GUNNER LORETTA R [employer]UR[employer] SPECIALIST [facility] RIGHT FOOT WOUND [id number] 12/20/2016 12:22:00 12/20/2016 23:59:59 CLS Outpatient GUNNER LORETTA R [employer]UR[employer] SPECIALIST [facility] WOUNDC[facility] [id number] 12/13/2016 13:08:00 12/13/2016 23:59:59 CLS Outpatient GUNNER LORETTA R [employer]UR[employer] SPECIALIST [facility] WOUNDC[facility] [id number] 12/06/2016 13:04:00 12/06/2016 23:59:59 CLS Outpatient PRAVEENA MARTINON R GROUP INSURANCE SPECIALIST [facility] WOUNDC[facility] [id number] 11/29/2016 13:16:00 11/29/2016 23:59:59 CLS Outpatient GUNNER LORETTA R [employer] INSUR[employer] SPECIALIST [facility] WOUNDC[facility] [id number] 11/22/2016 12:50:00 11/22/2016 23:59:59 CLS Outpatient PRAVEENA MARTINON R GROUP INSURANCE SPECIALIST [facility] WOUNDC[facility] [id number] 11/15/2016 13:47:00 11/15/2016 23:59:59 CLS Outpatient GUNNER LORETTA R [employer] INSUR[employer] SPECIALIST [facility] WOUNDC[facility] [id number] 11/01/2016 13:27:00 11/01/2016 23:59:59 CLS Outpatient GUNNER LORETTA R [employer] INSUR[employer] SPECIALIST [facility] WOUND[facility] [id number] 10/18/2016 13:18:00 10/29/2016 16:00:00 DIS Outpatient PRAVEENA MARTINON R [employer] INSURANCE SPECIALIST [facility] WOUNDCARE [id number] 09/13/2016 13:06:00 09/17/2016 00:01:00 DIS Outpatient GUNNER LORETTA R [employer]UR[employer] SPECIALIST [facility] WOUNDCARE [id number] 07/24/2016 07:16:00 07/24/2016 17:15:00 DIS Outpatient ALDA FERRARO [facility] CATH PVD,LEG DISCOMFORT, CAD,CKD,PAD,DM [id number] 06/25/2016 15:43:00 06/25/2016 23:59:59 CLS Outpatient PIETER POOLE MD [facility] RAD TYPE 2 DIABETES, END STAGE RENAL DISEASE [id number] 03/27/2016 14:14:00 04/30/2016 08:45:00 DIS Outpatient MCKENNA HEBERT [facility] REHAB S/P L BKA [id number] 04/23/2016 17:40:00 04/23/2016 23:59:59 [facility] Outpatient VIKKI KWOK MD [facility] HH CELLULITIS RIGHT FOOT [id number] 04/03/2016 20:25:00 04/04/2016 01:00:00 DIS Emergency TREMAINE LORI TOBAR [facility] ER FOOT SORE/SWELLING [id number] 09/30/2015 23:48:00 10/02/2015 23:31:00 DIS Inpatient GENESIS TOBARZAINA [facility] ICU CP;UNCONTROLLED DM;ESRD ON DIALYSIS;CAD [id number] 04/22/2015 21:23:00 04/23/2015 01:38:00 DIS Emergency MCKENNA BARRON DO [facility] ER CP [id number] 03/23/2015 06:28:00 03/23/2015 08:57:00 DIS Emergency VERA HERNÁNDEZ MD [facility] ER NAUSEA VOMITING [id number] 03/20/2015 14:47:00 03/20/2015 19:12:00 DIS Emergency ROMANA BRAN [facility] ER L LEG PAIN/FALL [id number] 01/14/2015 21:55:00 01/15/2015 13:40:00 DIS Inpatient ZAINA HURTADO DO [facility] CSD CHEST PAIN;UNCONTROLLED HTN AND DIABETES; [id number] 01/14/2015 09:37:00 01/14/2015 11:35:00 DIS Emergency ARLETTE DURÁN MD [facility] ER CHEST PAIN [id number] 11/08/2014 21:53:00 11/09/2014 01:57:00 DIS Emergency ARLETTE DURÁN MD [facility] ER SOA [id number] 10/19/2014 05:50:00 10/19/2014 09:30:00 DIS Emergency ARLETTE DURÁN MD [facility] ER SOB [id number] 08/01/2014 20:55:00 08/01/2014 23:05:00 DIS Emergency BRUEGGEMANN MD, MIRTA Enciso [facility] ER SOB [id number] 07/31/2014 21:27:00 07/31/2014 23:06:00 DIS Emergency LORI PENALOZA DO Ramos [facility] ER CHEST PAIN [id number] 07/09/2014 20:58:00 07/10/2014 00:25:00 DIS Emergency TREMAINE , LORI Ramos [facility] ER L ARM PAIN VOMITING [id number] 04/10/2014 05:41:00 04/10/2014 06:53:00 DIS Emergency EDGAR RAMSEY, VERA Brown [facility] ER SOA;CHEST PAIN WHEN BREATHING [id number] 11/05/2013 21:40:00 11/21/2013 09:30:00 DIS Inpatient ILENE RAMSEY, FRANCOISE Oreilly [facility] IRF WEAKNESS,BKA [id number] 10/14/2013 20:38:00 10/15/2013 11:15:00 DIS Outpatient KATHRINE RAMSEY, BARON Lane [facility] CATH GANGREEN LEFT FORE FOOT [id number] 10/01/2013 07:13:00 10/01/2013 08:55:00 DIS Emergency KARYN RAMSEY, TANVIR Beasley [facility] ER SOA [id number] 07/08/2013 12:47:00 07/08/2013 15:39:00 DIS Emergency TREMAINE TOBARLORI K [facility] ER LOW BLOOD SUGAR [id number] 06/14/2013 00:58:00 06/19/2013 14:50:00 DIS Inpatient ZAINA HURTADO DO [facility] 4TH PNEUMONIA;HYPOXIA;ASTHMA EXACERBATION; [id number] 03/05/2013 08:08:00 03/05/2013 23:59:59 CLS Outpatient [id number] 12/29/2012 13:49:00 12/29/2012 16:00:00 DIS Emergency CRYSTAL MATTA APRN [facility] ER HYPOGLYCEMIA [id number] 11/14/2012 23:55:00 11/19/2012 13:05:00 DIS Inpatient GIACOMO SANDOVAL MD [facility] 4TH ACUTE ASTHMA EXACERBATION [id number] 10/30/2012 09:25:00 10/30/2012 23:59:59 CLS Outpatient [id number] 10/07/2012 13:25:00 10/07/2012 23:59:59 CLS Outpatient [id number] 08/15/2012 19:03:00 08/15/2012 21:28:00 DIS Emergency [id number] 03/12/2018 21:09:00 ACT Emergency KASEY PAT [facility] ER CHEST PAIN [id number] 04/10/2014 05:41:00 Document Registration [id number] 06/09/2012 21:55:00 Document Registration [id number] 04/21/2012 23:40:00 Document Registration [id number] 04/22/2011 21:11:00 Document Registration [id number] 04/09/2011 19:09:00 Document Registration [id number] 04/05/2011 13:32:00 Document Registration [id number] 03/19/2011 10:57:00 Document Registration [id number] 02/26/2011 11:49:00 Document Registration [id number] 02/26/2011 11:44:00 Document Registration [id number] 01/12/2011 00:00:00 Document Registration [id number] 08/31/2010 12:47:00 Document Registration [id number] 08/27/2010 07:40:00 Document Registration [id number] 08/25/2010 21:07:00 Document Registration [id number] 05/16/2010 02:15:00 Document Registration [id number] 04/11/2010 16:35:00 Document Registration [id number] 08/27/2009 22:17:00 Document Registration [email or web address] 11/08/2014 21:54:03 ACT Document Registration [id number] 11/12/2016 14:08:00 Document Registration
--- NOTE | 2018-03-12 22:27 | Diagnostic Imaging Report ---
EXAMINATION: Single frontal view of the chest. INDICATION: Shortness of breath. COMPARISON: Multiple priors, most recent performed on 12/18/2017. FINDINGS: Evaluation is limited secondary to technique and patient body habitus. There is unchanged marked cardiomegaly. There does not appear to be focal consolidation. There is unchanged prominence of the central pulmonary vasculature, without overt edema. No pneumothorax or a large pleural effusion. IMPRESSION: Markedly limited exam. Unchanged cardiomegaly. No definite evidence for focal consolidation. No overt edema. Dictated by: Dictated on workstation # [id number]
[2018-03-12] MEDS ORDERED: inSUlin (REGULAR) HUMAN 1 UNIT/0.01 ML (CHARGE PER UNIT) IV SCH (22:30)
[2018-03-12] MEDS ORDERED: morphine INJ 10 MG/ML 1ML (SYR OR VIAL) IVP ONE (23:00)
[2018-03-13] MEDS ORDERED: NORMAL SALINE 250 ML ONE (00:09)
[2018-03-13] MEDS ORDERED: inSUlin REGULAR TPN/DRIP ONLY 250 UNITS in NORMAL SALINE 250 ML IV SCH ×2 (00:15→00:30)
[2018-03-13] MEDS ORDERED: morphine INJ 10 MG/ML 1ML (SYR OR VIAL) IVP ONE (01:00)
[2018-03-13 01:15] VITALS: BP 122/70
== END 2018-03-13 01:14 | disposition short-term general hospital (02) ==
LOC: EDUNIT# 21:08 → ER 21:09
DX: E11.22 Type 2 diabetes mellitus with diabetic chronic kidney disease (principal); I12.0 Hypertensive chronic kidney disease with stage 5 chronic kidney disease or end stage renal disease; N18.6 End stage renal disease; R07.89 Other chest pain; E11.65 Type 2 diabetes mellitus with hyperglycemia; E11.10 Type 2 diabetes mellitus with ketoacidosis without coma; E78.00 Pure hypercholesterolemia, unspecified; E11.59 Type 2 diabetes mellitus with other circulatory complications; I73.9 Peripheral vascular disease, unspecified; J43.9 Emphysema, unspecified; G43.909 Migraine, unspecified, not intractable, without status migrainosus; E11.40 Type 2 diabetes mellitus with diabetic neuropathy, unspecified; Z99.2 Dependence on renal dialysis; Z87.19 Personal history of other diseases of the digestive system; Z99.81 Dependence on supplemental oxygen; Z88.7 Allergy status to serum and vaccine; Z91.048 Other nonmedicinal substance allergy status; Z98.890 Other specified postprocedural states; Z90.710 Acquired absence of both cervix and uterus; Z90.89 Acquired absence of other organs; Z93.0 Tracheostomy status; Z79.82 Long term (current) use of aspirin; Z79.02 Long term (current) use of antithrombotics/antiplatelets; Z79.4 Long term (current) use of insulin
CPT/HCPCS: 36415; 71045; 80053; 82010; 82962; 83605; 83735; 83874; 83880; 84484; 85007; 85027; 85610; 85730; 87040; 93005; 93041; 94640; 96374; 96375; 96376

== ENCOUNTER 2018-04-08 00:44 | Emergency (ER) | payer MEDICARE, MEDICAID ==
[~2018-04-08] VITALS: Ht 162.6 cm; Wt 149.2 kg
--- OUTSIDE RECORDS SUMMARY | 2018-04-08 00:50 | XMS REPORT ---
Author Author MCKENNA HEBERT Organization [facility] Address [address] [place] [address] Care Team Providers Care System Auditor Name Role Phone MCKENNA HEBERT Unavailable PROBLEMS Type Condition ICD9-CM Code YGE64-KC Code Onset Dates Condition Status SNOMED Code Problem Chronic congestive heart failure, unspecified congestive heart failure type I50.9 Active 73022565 Problem Chronic congestive heart failure, unspecified heart failure type I50.9 Active 76589529 Problem Seasonal allergic rhinitis due to other allergic trigger J30.89 Active 016366162 Problem Bronchitis J40 Active 94092770 Problem Self-care deficit for toileting R46.0 Active 227459633 Problem Other chronic pain G89.29 Active 11621315 Problem Angina pectoris I20.9 Active 816132357 Problem Primary insomnia F51.01 Active 5257086 Problem 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 [id number] [place] [address] 51482- 2438 Apr, [facility] [address] [place] [address] 96969- 3157 Mar, Diabetes type 2, controlled E11.9 ; BMI 50.0-59.9, adult Z68.43 ; Bronchitis J40 and Other chronic pain G89.29 [facility] [id number] [address] 09[address] Mar, [facility] [id number] [place] [address] 19658- 6779 Mar, [facility] [address] [address] 1280 Jan, [facility] [address] [address] 2897 Jan, [facility] [address] [address]- 1217 Dec, [facility] [address] [place] [address] 02559- 8228 Dec, [facility] [id number] [place] [address] 55938- 9952 Dec, [facility] [address] [place] [address] 27139- 1274 Nov, Pneumonia due to infectious organism, unspecified laterality , unspecified part of lung J18.9 and Self-care deficit for toileting R46.0 [facility] [address] [address]- 6236 Nov, [facility] [address] [place] [address] 56567- 6213 Oct, Diabetes type 2, controlled E11.9 ; Primary insomnia F51.01 and Bilateral headaches R51 [facility] [address] [address] 5663 Oct, [facility] [address] [address] 2043 Sep, [facility] [address] [address] Sep, Dental examination Z01.20 and Dental caries K02.9 [facility] [address] [address] 3611 Sep, [facility] [address] [address]- 7200 Sep, [facility] [address] [address]- 8215 12 Sep, 2017 Other chronic pain G89.29 and Pain in right knee M25.561 [facility] [address] [facility] [id number] [place] [address]- 7086 05 Sep, 2017 [facility] [address] [address]- 8962 Aug, 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 [id number] [address]- 5933 15 Aug, 2017 [facility] [id number] [address]- 6669 Aug, Diabetes type 2, controlled E11.9 and Acute pain of right knee M25.561 [facility] [address] [address]- 3084 09 Aug, 2017 [facility] [id number] [place] [address]- 7005 July, [facility] [address] [address]- 3088 16 Jun, 2017 [facility] [address] [address]- 0999 13 Jun, 2017 [facility] [address] [address]- 2367 10 Jun, 2017 Diabetes type [address], [address] [facility] [id number] [address]- 5477 Jun, [facility] [id number] 15[address] May, [facility] [id number] [address]- 18[address] May, [facility] [id number] [place] [address] 32824- 8226 May, [facility] [id number] [place] [address] 39977- 5391 May, Chronic congestive heart failure, unspecified congestive heart failure type I50.9 [facility] [id number] [place] [address] 79041- 7663 May, Diabetes type 2, controlled E11.9 ; BMI 50.0-59.9, adult Z68.43 ; Chronic congestive heart failure, unspecified heart failure type I50.9 ; Angina pectoris I20.9 ; Seasonal allergic rhinitis due to other allergic trigger J30.89 and Renal failure N19 [facility] [id number] [place] [id number] May, [facility] [id number] [place] [address] 25558- 8346 May, [facility] [id number] [place] [address] 21131- 9[address] May, [facility] [id number] [place] [address] 29563- 34[address] May, [facility] [id number] [place] [address] 24004- 4720 May, [facility] [id number] [place] [address] 57599- 0481 Apr, BMI 50.0-59.9, adult Z68.43 [facility] [id number] [place] [address] 82934- 3673 Apr, BMI 50.0-59.9, adult Z68.43 ; Post-procedural fever R50.[address] [facility] [id number] [place] [address] 02483- 5526 Apr, Chronic congestive heart failure, unspecified congestive heart failure type I50.9 [facility] [id number] [place] [address] 04478- 3181 Jan, [facility] [address] [facility] [id number] [address]- 5115 Jan, Diabetes type 2, controlled E11.9 [facility] [address] [facility] [id number] [address]- 6218 Jan, Neuropathy G62.9 [facility] [address] [facility] [id number] [place] [address] 49177- 3570 Jan, [facility] [address] [facility] [id number] [place] [address] 58969- [address] Jan, [facility] [address] [facility] [id number] [place] [address] 59391- [address] Jan, [facility] [address] [facility] [id number] [place] [address] 96839- [address] Jan, [facility] [id number] [place] [address] 49953- 3471 Jan, [facility] [address] [facility] [id number] [address]- 3352 Dec, [facility] [address] [facility] [id number] [place] [address] 28695- 2251 Dec, [facility] [address] [facility] [id number] [address]- 9453 Dec, Diabetes type 2, controlled E11.9 [facility] [address] [facility] [id number] [address]- 6057 Dec, [facility] [address] [facility] [id number] [address]- 9766 Dec, [facility] [id number] [address]- 3108 Dec, Chronic congestive heart failure, unspecified congestive heart failure type I50.9 [facility] [address] [facility] [id number] [address]- 8605 Dec, [facility] [address] [facility] [id number] [address]- 3291 Dec, [facility] [address] [facility] [id number] [address]- 1331 Nov, Chronic congestive heart failure, unspecified congestive heart failure type I50.9 [facility] [address] [facility] [id number] [place] [address]- 6586 Nov, Chronic congestive heart failure, unspecified congestive heart failure type I50.9 [facility] [address] [facility] [id number] [place] [address]- 2498 Nov, [facility] [address] [facility] [id number] [place] [address]- 5395 Oct, [facility] [address] [facility] [id number] [address]- 8514 Oct, [facility] [id number] [address]- 3573 Oct, Chronic congestive heart failure, unspecified congestive heart failure type I50.9 [facility] [address] [facility] [id number] [address]- 1826 Oct, [facility] [id number] [address]- 4795 Oct, Pneumonia of both lungs due to infectious organism, unspecified part of lung J18.9 [facility] [id number] [address]- 2805 Oct, [facility] [address] [facility] [id number] [address]- 2402 Oct, Diabetes type 2, controlled E11.9 [facility] [address] [facility] [id number] [place] [address]- 6259 Oct, Diabetes type 2, controlled E11.9 [facility] [id number] [address]- 3821 Sep, [facility] [address] [address] 2546 Sep, Neuropathy G62.9 [facility] [address] [place] [address] 2546 Aug, Intra-dialytic hypotension I95.3 [facility] [address] [place] [address] 2546 July, [facility] [id number] [place] [address] 85128 [address], [facility] [address] [place] [address], [place] [address] 2546 July, [facility] [id number] [place] [address] 85443 2546 July, Amput below knee, unilat S88.119A [facility] [id number] [place] [address] 29392 2546 May, [facility] [address] [address] 2546 May, Neuropathy G62.9 [facility] [id number] [place] [address] 86367 2546 May, [facility] [address] [address] [address], [facility] [address] [address] [address], [facility] [address] [address] 2546 May, [facility] [id number] [place] [address] 48168 2546 May, Neuropathy G62.9 [facility] [address] [address] 2546 Apr, [facility] [address] [address]- 8729 Apr, [facility] [address] [facility] [id number] [place] [address]- 8179 Apr, Diabetes type 2, controlled E11.9 and Renal failure N19 [facility] [address] [id number] [place] [address]4 Apr, [facility] [id number] [place] [address], [place] [address]- 7743 Apr, [facility] [address] [facility] [id number] [place] [address], [place] [address]- 2903 Mar, [facility] [id number] [place] [address], [place] [address]- 0069 Mar, [facility] [id number] [place] [address], [place] [address]- 1239 Mar, [facility] [id number] [place] [address], [place] [address]- 1946 Mar, [facility] [id number] [place] [address], [place] [address]- 9109 Mar, [facility] [id number] [place] [address], [place] [address]- 7156 Jan, Localized edema R60.0 [facility] [address] [place] [address]- 0982 Jan, [facility] [address] [place] [address]- 6225 Jan, [facility] [address] [address]- 8557 Jan, [facility] [id number] [place] [address], [place] [address]- 8[address] Jan, [facility] [address] [facility] [id number] [place] [address]- 1992 Jan, [facility] [id number] [place] [address] 02135- 5702 Jan, [facility] [id number] [place] [address] 13354- 8570 Dec, Diabetes type 2, controlled E11.9 and Chronic nonintractable headache, unspecified headache type R51 [facility] [id number] [place] [address] 45785- 1174 Dec, [facility] [address] 16917- 5714 Dec, [facility] [id number] [place] [address] 00465- 2565 Nov, [facility] [id number] [place] [address] 52947- 6905 Nov, [facility] [id number] [place] [address] 60876- 4817 Oct, [facility] [id number] [place] [address] 11684- 5567 Oct, Migraine without status migrainosus, not intractable, unspecified migraine type G43.909 [facility] [id number] [place] [address] 19572- 7941 Oct, [facility] [id number] [place] [address] 70705- 6233 Sep, Amput below knee, unilat S88.119A and Neuropathy G62.9 [facility] [id number] [place] [address] 55731- 7016 Sep, [facility] [id number] [place] [address] 26826- 6779 Sep, [facility] [id number] [place] [address] 07511- 3094 Sep, [facility] [id number] [place] [address] 63807- 6643 Aug, [facility] [id number] [place] [address] 50928- 6288 Aug, [facility] [address] [facility] [id number] [place] [address]- 3456 Aug, Diabetes type 2, controlled E11.9 [facility] [address] [facility] [id number] [place] [address]- 6226 Aug, [facility] [address] [facility] [id number] [address]- 8254 Jun, Diabetes type 2, controlled E11.[address] [facility] [address] [facility] [id number] [place] [address]- 9328 Jun, [facility] [address] [facility] [id number] [address]- [address]136 Jun, [facility] [address] [place] [address]- 3847 Jun, [facility] [id number] [address]- 9795 Jun, [facility] [id number] [place] [address]- 5026 May, [facility] [id number] [address]- 3620 May, Diabetes type 2, controlled E11.9 [facility] [address] [facility] [id number] [address]- 8928 May, [facility] [id number] [address]- 9284 May, [facility] [id number] [address]- 1495 May, [facility] [address] [facility] [id number] [address]- 06[address] May, [facility] [id number] [address]- 4389 May, [facility] [address] [address]- 1317 [address], 2015 [facility] [address] [address]- 3382 16 May, 2015 [facility] [address] [address]- 6180 15 May, 2015 COPD (chronic obstructive pulmonary disease) J44.9 [facility] [address] [address]- 7043 May, [facility] [address] [address]- 0660 May, [facility] [address] [address]- 5787 May, [facility] [address] [address]- 6088 May, [facility] [address] [address]- 8183 May, [facility] [address] [address]- 0752 May, Renal failure N19 and Pneumonia, organism unspecified, unspecified laterality, unspecified part of lung J18.9 [facility] [address] [address]- 4970 Apr, [facility] [address] [address]- 8033 Apr, [facility] [address] [address]- 0050 Apr, [facility] [address] [address]- 3631 Apr, Diabetes mellitus 250.00 [facility] [address] [address]- 5275 14 Apr, 2015 [facility] [address] [facility] [id number] [place] [address]- 5002 14 Apr, 2015 [facility] [address] [id number] [place] [address]- 1525 13 Apr, 2015 [facility] [place] [facility] [address] [id number] [place] [address]- 4603 07 Apr, 2015 [facility] [place] [facility] [address] [id number] [place] [address], [place] [address]- 8554 31 Mar, 2015 [facility] [place] [facility] [address] [id number] [place] [address]- 8404 28 Mar, 2015 [facility] [place] [facility] [address] [id number] [place] [address], [place] [address]- 5852 23 Mar, 2015 [facility] [place] [facility] [address] [facility] [id number] [place] [address]- 7700 16 Mar, 2015 Renal failure N19 [facility] [address] [facility] [id number] [place] [address], [place] [address]- 7565 14 Mar, 2015 [facility] [place] [facility] [address] [facility] [id number] [place] [address]- 5218 Mar, [facility] [place] [facility] [address] [facility] [id number] [place] [address]- 6021 04 Mar, 2015 [facility] [place] [facility] [address] [facility] [id number] [place] [address]- 1074 24 Jan, 2015 [facility] [place] [facility] [address] [id number] [place] [address]- 1470 18 Jan, 2015 [facility] [place] [facility] [address] [id number] [place] [address]- 4777 17 Jan, 2015 [facility] [place] [facility] [address] [id number] [place] [address]- 2530 13 Jan, 2015 [facility] [place] [facility] [address] [id number] [place] [address]- 7745 20 Dec, 2014 [facility] [place] [facility] [address] [id number] [place] [address]- 1191 Dec, [facility] [id number] [address]- 4608 Dec, [facility] [address] [facility] [id number] [address]- 6829 Nov, [facility] [address] [address]- 3063 Nov, [facility] [address] [facility] [id number] [place] [address] 48958- 9491 Nov, [facility] [address] [facility] [id number] [address]- 5079 Oct, [facility] [address] [id number] [address]- 9154 Oct, [facility] [address] [address]- 7000 Oct, Renal failure 586 and Obesity 278.00 [facility] [address] [address]- 7525 Oct, [facility] [address] [address] Oct, [facility] [address] [address] Oct, [facility] [address] [address] Sep, [facility] [address] [address] Sep, [facility] [address] [address] Sep, Diabetes mellitus 250.00 and Congestive heart failure, unspecified 428.0 [facility] [address] [address] Aug, [facility] [address] [address] Aug, [facility] [address] [id number] [place] [address] Aug, [facility] [address] [id number] [place] [address] July, [facility] [address] [id number] [place] [address] July, [facility] [address] [id number] [place] [address] July, Heart murmur, systolic 785.2 [facility] [address] [id number] [place] July, [facility] [address] [id number] [place] [address] July, [facility] [address] [id number] [place] [address] Jun, [facility] [address] [id number] [place] [address] Jun, [facility] [address] [id number] [place] [address] May, [facility] [address] [id number] [place] [address] 23 May, 2014 [facility] [address] [id number] [place] [address] 18 May, 2014 [facility] [address] [id number] [place] [address] 18 May, 2014 [facility] [address] [id number] [place] [address] 16 May, 2014 [facility] [address] [id number] [place] [address] 16 May, 2014 [facility] [address] [id number] [place] [id number] 10 May, 2014 [facility] [place] [facility] [address] [id number] [place] [address] May, 2014 [facility] [place] [facility] [address] [id number] [place] [address] May, 2014 [facility] [place] [facility] [address] [facility] [id number] [place] [address] May, 2014 [facility] [place] [facility] [address] [facility] [id number] [place] [address] May, 2014 [facility] [place] [facility] [address] [id number] [place] [address] May, 2014 [facility] [place] [facility] [address] [facility] [id number] [place] [address] May, 2014 [facility] [place] [facility] [address] [facility] [id number] [place] [address] May, 2014 [facility] [place] [facility] [address] [facility] [id number] [place] [address] May, 2014 [facility] [place] [facility] [address] [facility] [id number] [place] [address] May, 2014 [facility] [place] [facility] [address] [facility] [id number] [place] [address] May, 2014 [facility] [place] [facility] [address] [facility] [id number] [place] [address] 3926 May, 2014 [facility] [place] [facility] [address] [facility] [id number] [place] [address]446 May, 2014 [facility] [place] [facility] [address] [facility] [id number] [place] [address]120 May, 2014 [facility] [place] [facility] [address] [facility] [id number] [place] [address] 89[address] 16 May, 2014 [facility] [place] [facility] [address] [facility] [id number] [place] [address] 8[address] 16 May, 2014 [facility] [place] [facility] [address] [id number] [place] [address] 2019 May, 2014 [facility] [place] [facility] [address] [id number] [place] [address] 6926 May, [facility] [place] [facility] [address] [id number] [place] [address] 3947 May, [facility] [place] [facility] [address] [id number] [place] [address]- 3819 May, [facility] [place] [facility] [address] [id number] [place] [address]- 3422 Apr, [facility] [place] [facility] [address] [id number] [place] [address] Apr, [facility] [place] [facility] [address] [id number] [place] [address]- 1666 Apr, [facility] [place] [facility] [address] [id number] [place] [address]- 2631 Apr, [facility] [place] [facility] [address] [id number] [place] [address]- 0579 Apr, [facility] [place] [facility] [address] [id number] [place] [address]- 8067 Apr, [facility] [place] [facility] [address] [id number] [place] [address]- 5668 Apr, [facility] [place] [facility] [address] [id number] [place] [address]- 2659 Apr, [facility] [place] [facility] [address] [id number] [place] [address]- 9275 Mar, [facility] [place] [facility] [address] [id number] [place] [address]- 7045 Mar, [facility] [place] [facility] [address] [id number] [place] [address]- 4780 Mar, [facility] [place] [facility] [address] [id number] [place] [address]- 0848 Mar, [facility] [place] [facility] [address] [id number] [place] [address]- 5769 Mar, [facility] [place] [facility] [address] [id number] [place] [address] Mar, [facility] [place] [facility] [address] [id number] [place] [address]- 9036 Mar, [facility] [place] [facility] [address] [id number] [place] [address]- 3548 Mar, [facility] [place] [facility] [address] [id number] [place] [address]- 7429 Mar, [facility] [place] [facility] [address] [id number] [place] [address]- 1299 Mar, [facility] [place] [facility] [address] [id number] [place] [address]- 6214 Mar, [facility] [place] [facility] [address] [id number] [place] [address]- 9275 Mar, [facility] [place] [facility] [address] [id number] [place] [address]- 8139 Mar, [facility] [place] [facility] [address] [id number] [place] [address]- 4629 Mar, [facility] [place] [facility] [address] [id number] [place] [address]- 9834 Mar, [facility] [place] [facility] [address] [id number] [place] [address]- 8472 10 Mar, 2014 [facility] [place] [facility] [address] [id number] [place] [address]- 8686 Mar, [facility] [place] [facility] [address] [id number] [place] [address]- 7380 Mar, [facility] [place] [facility] [address] [id number] [place] [address]- 2826 Mar, [facility] [place] [facility] [address] [id number] [place] [address]67 Mar, [facility] [place] [facility] [address] [id number] [place] [address]- 2320 Mar, [facility] [place] [facility] [address] [id number] [place] [address]- 3589 Mar, [facility] [place] [facility] [address] [id number] [place] [address]- 3499 Jan, [facility] [place] [facility] [address] [id number] [place] [address]- 3089 Jan, [facility] [place] [facility] [address] [id number] [place] [address]- 8599 Jan, [facility] [place] [facility] [address] [id number] [place] [address]- 7910 Jan, [facility] [place] [facility] [address] [id number] [place] [address]- 9537 Jan, [facility] [place] [facility] [address] [id number] [place] [address]- 5130 Jan, [facility] [place] [facility] [address] [id number] [place] [address]- 9867 Jan, [facility] [place] [facility] [address] [id number] [place] [address]- 4818 Jan, [facility] [place] [facility] [address] [id number] [place] [address]- 5445 Jan, [facility] [place] [facility] [address] [id number] [place] [address]- 2608 Jan, [facility] [place] [facility] [address] [id number] [place] [address]- 7825 Jan, [facility] [place] [facility] [address] [id number] [place] [address]- 7251 Jan, [facility] [place] [facility] [address] [id number] [place] [address]- 1597 Jan, [facility] [place] [facility] [address] [id number] [place] [address]- 0014 Jan, [facility] [place] [facility] [address] [id number] [place] [address]- 1866 Jan, [facility] [place] [facility] [address] [id number] [place] [address]- 3360 Jan, [facility] [place] [facility] [address] [id number] [place] [address]- 1912 Jan, [facility] [place] [facility] [address] [id number] [place] [address]- 3152 Jan, [facility] [place] [facility] [address] [id number] [place] [address]- 5315 Jan, [facility] [place] [facility] [address] [id number] [place] [address]- 4715 Jan, [facility] [place] [facility] [address] [id number] [place] [address]- 8994 Dec, [facility] [place] [facility] [address] [id number] [place] [address]- 7670 Dec, [facility] [place] [facility] [address] [id number] [address]- 1563 Dec, [facility] [place] [facility] [address] [id number] [address]- 5395 Dec, [facility] [place] [facility] [address] [id number] [place] [address]- 5900 Dec, [facility] [place] [facility] [address] [id number] [place] [address]- 2665 Dec, [facility] [place] [facility] [address] [id number] [place] [address]- 2169 Dec, [facility] [place] [facility] [address] [id number] [address]- 5220 Dec, [facility] [place] [facility] [address] [id number] [address]- 2766 10 Dec, 2013 [facility] [place] [facility] [address] [id number] [place] [address]- 5228 08 Dec, 2013 [facility] [place] [facility] [address] [id number] [place] [address]- 9819 Dec, [facility] [place] [facility] [address] [id number] [place] [address]- 7620 Dec, [facility] [place] [facility] [address] [id number] [place] [address]- 3872 Dec, [facility] [place] [facility] [address] [id number] [place] [address]- 8070 Dec, [facility] [place] [facility] [address] [id number] [place] [address]- 3337 Dec, [facility] [place] [facility] [address] [id number] [place] [address]- 1819 22 Nov, 2013 [facility] [place] [facility] [address] [id number] [place] [address]- 9440 22 Nov, 2013 [facility] [place] [facility] [address] [id number] [place] [address]- 1821 19 Nov, 2013 [facility] [place] [facility] [address] [facility] [id number] [place] [address]- 8340 19 Nov, 2013 [facility] [place] [facility] [address] [id number] [place] [address]- 7773 13 Nov, 2013 [facility] [place] [facility] [address] [id number] [place] [address]- 2542 13 Nov, 2013 [facility] [place] [facility] [address] [id number] [place] [address]- 2706 10 Nov, 2013 [facility] [place] [facility] [address] [facility] [id number] [place] [address]- 9381 10 Nov, 2013 [facility] [place] [facility] [address] [facility] [id number] [place] [address]- 8572 08 Sep, 2013 [facility] [place] [facility] [address] [id number] [place] [address]- 8260 05 Nov, 2013 [facility] [place] [facility] [address] [id number] [place] [address]- 5197 Nov, 2013 [facility] [place] [facility] [address] [id number] [place] [address]- 8616 Nov, [facility] [place] [facility] [address] [id number] [place] [address]- 9497 Nov, [facility] [place] [facility] [address] [id number] [place] [address]- 2430 Oct, [facility] [place] [facility] [address] [id number] [place] [address]- 4261 Oct, [facility] [place] [facility] [address] [id number] [place] [address]- 3687 Oct, [facility] [place] [facility] [address] [id number] [place] [address]- 7978 Oct, [facility] [place] [facility] [address] [id number] [place] [address]- 2178 Oct, [facility] [place] [facility] [address] [id number] [place] [address]- 0961 Sep, [facility] [place] [facility] [address] [id number] [place] [address]- 5781 Sep, [facility] [place] [facility] [address] [id number] [place] [address]- 3755 Sep, [facility] [place] [facility] [address] [id number] [place] [address]- 3121 Sep, [facility] [place] [facility] [address] [id number] [place] [address]- 5353 Aug, [facility] [place] [facility] [address] [id number] [place] [address]- 9228 Aug, [facility] [place] [facility] [address] [id number] [place] [address]- 9509 Aug, [facility] [place] [facility] [address] [id number] [place] [address]- 7687 Aug, [facility] [place] [facility] [address] [id number] [place] [address]- 4574 Aug, [facility] [place] [facility] [address] [id number] [place] [address]- 5912 Aug, [facility] [place] [facility] [address] [id number] [place] [address]- 7042 Aug, [facility] [place] [facility] [address] [id number] [place] [address]- 9715 Aug, [facility] [place] [facility] [address] [id number] [place] [address]- 7722 Aug, [facility] [place] [facility] [address] [id number] [place] [address]- 9381 Aug, [facility] [place] [facility] [address] [id number] [place] [address]- 0789 Aug, [facility] [place] [facility] [address] [id number] [place] [address]- 6208 Aug, [facility] [place] [facility] [address] [id number] [place] [address]- 7865 Aug, [facility] [place] [facility] [address] [id number] [address]- 1565 Aug, [facility] [place] [facility] [address] [id number] [place] [address]- 6536 Aug, [facility] [place] [facility] [address] [id number] [place] [address]- 3395 Aug, [facility] [place] [facility] [address] [id number] [place] [address]- 6303 Aug, [facility] [place] [facility] [address] [id number] [place] [address]- 1848 Aug, [facility] [place] [facility] [address] [id number] [place] [address]- 7564 Aug, [facility] [place] [facility] [address] [id number] [place] [address]- 2608 Aug, [facility] [place] [facility] [address] [id number] [place] [address]- 3393 Aug, [facility] [place] [facility] [address] [id number] [place] [address]- 3247 Aug, [facility] [place] [facility] [address] [id number] [place] [address]- 8801 Aug, [facility] [place] [facility] [address] [id number] [place] [address]- 7876 Aug, [facility] [place] [facility] [address] [id number] [place] [address]- 5551 July, [facility] [place] [facility] [address] [id number] [place] [address]- 0928 July, [facility] [place] [facility] [address] [id number] [place] [address]- 7744 July, [facility] [place] [facility] [address] [id number] [place] [address]- 8265 July, [facility] [place] [facility] [address] [id number] [place] [address]- 0929 July, [facility] [place] [facility] [address] [id number] [place] [address]- 7358 July, [facility] [place] [facility] [address] [id number] [place] [address]- 0279 Jun, [facility] [place] [facility] [address] [id number] [place] [address]- 5877 Jun, [facility] [place] [facility] [address] [id number] [place] [address]- 3256 Jun, [facility] [place] [facility] [address] [id number] [place] [address]- 1406 Jun, [facility] [place] [facility] [address] [id number] [place] [address]- 9476 Jun, [facility] [place] [facility] [address] [id number] [place] [address]- 4923 Jun, [facility] [place] [facility] [address] [id number] [place] [address]- 8097 Jun, [facility] [place] [facility] [address] [id number] [place] [address]- 8294 Jun, [facility] [place] [facility] [address] [id number] [place] [address]- 6961 Jun, [facility] [place] [facility] [address] [id number] [place] [address]- 5583 Jun, [facility] [place] [facility] [address] [id number] [place] [address]- 5058 Jun, [facility] [place] [facility] [address] [id number] [place] [address]- 1051 Jun, [facility] [place] [facility] [address] [id number] [place] [address]- 3941 Jun, [facility] [place] [facility] [address] [id number] [place] [address]- 1176 Jun, [facility] [place] [facility] [address] [id number] [place] [address]- 0302 Jun, [facility] [place] [facility] [address] [id number] [place] [address]- 8413 May, [facility] [place] [facility] [address] [id number] [place] [address]- 5402 May, [facility] [place] [facility] [address] [id number] [place] [address]- 0195 May, [facility] [place] [facility] [address] [id number] [place] [address]- 6030 May, [facility] [place] [facility] [address] [id number] [place] [address]- 2546 May, [facility] [place] [facility] [address] [id number] [place] [address]- 7627 May, [facility] [place] [facility] [address] [id number] [place] [address]- 9962 May, [facility] [place] [facility] [address] [id number] [place] [address]- 6149 May, [facility] [place] [facility] [address] [id number] [place] [address]- 9257 May, [facility] [place] [facility] [address] [id number] [place] [address]- 4386 May, [facility] [place] [facility] [address] [id number] [place] 4971 May, [facility] [place] [facility] [address] [id number] [place] [address]- 6183 May, [facility] [place] [facility] [address] [id number] [place] [address]- 7799 May, [facility] [place] [facility] [address] [id number] [place] [address]- 5840 May, [facility] [place] [facility] [address] [id number] [place] [address]- 4604 May, [facility] [place] [facility] [address] [id number] [place] [address]- 1950 May, [facility] [place] [facility] [address] [id number] [place] [address]- 3752 May, [facility] [place] [facility] [address] [id number] [place] [address]- 0636 Apr, [facility] [place] [facility] [address] [id number] [place] [address]- 4442 Apr, [facility] [place] [facility] [address] [id number] [place] 7998 Apr, [facility] [place] [facility] [address] [id number] [place] [address]- 2841 Apr, [facility] [place] [facility] [address] [id number] [place] [address]- 8662 Apr, [facility] [place] [facility] [address] [id number] [place] [address]- 9513 Apr, [facility] [place] [facility] [address] [id number] [place] [address]- 7107 Apr, [facility] [place] [facility] [address] [id number] [place] [address]- 4243 Apr, [facility] [place] [facility] [address] [id number] [place] [address]- 3190 Apr, [facility] [place] [facility] [address] [id number] [place] [address]- 0549 Apr, [facility] [place] [facility] [address] [id number] [place] [address]- 9171 Apr, [facility] [place] [facility] [address] [id number] [place] [address]- 4508 Apr, [facility] [place] [facility] [address] [id number] [place] [address]- 7489 Apr, [facility] [place] [facility] [address] [id number] [place] [address]- 2138 Apr, [facility] [place] [facility] [address] [id number] [place] [address]- 3903 Apr, [facility] [place] [facility] [address] [id number] [place] [address]- 9367 Apr, [facility] [place] [facility] [address] [id number] [place] [address]- 5712 Mar, [facility] [place] [facility] [address] [id number] [place] [address]- 0811 Mar, [facility] [place] [facility] [address] [id number] [place] [address]- 8622 30 Mar, 2013 [facility] [address] [id number] [place] [address] 30 Mar, 2013 [facility] [place] [facility] [address] [id number] [place] [address] 18 Mar, 2013 [facility] [address] [facility] [id number] [place] [address] 18 Mar, 2013 [facility] [place] [facility] [address] [id number] [place] [address] 18 Mar, 2013 [facility] [address] [id number] [place] [address] 18 Mar, 2013 [facility] [address] [id number] [place] [address] 17 Mar, 2013 [facility] [address] [id number] [place] [address] 17 Mar, 2013 [facility] [place] [facility] [address] [id number] [address] 05 Mar, 2013 [facility] [place] [facility] [address] [id number] [place] [address] 05 Mar, 2013 [facility] [place] [facility] [address] [id number] [address] 04 Mar, 2013 [facility] [place] [facility] [address] [id number] [address] 04 Mar, 2013 [facility] [place] [facility] [address] [id number] [address] 04 Mar, 2013 [facility] [place] [facility] [address] [id number] [address] Mar, [facility] [place] [facility] [address] [id number] [address] 02 Mar, 2013 [facility] [place] [facility] [address] [facility] [id number] [address] 02 Mar, 2013 [facility] [place] [facility] [address] [id number] [place] [address] Jan, [facility] [place] [facility] [address] [id number] [place] [address] Jan, [facility] [place] [facility] [address] [id number] [place] [address] Jan, [facility] [place] [facility] [address] [id number] [place] [address] Jan, [facility] [place] [facility] [address] [id number] [place] [address] Nov, [facility] [place] [facility] [address] [id number] [place] [address] Nov, [facility] [place] [facility] [address] [id number] [place] [address] Nov, [facility] [place] [facility] [address] [id number] [place] [address] Nov, [facility] [place] [facility] [address] [id number] [place] [address] Oct, [facility] [place] [facility] [address] [id number] [place] [address] Oct, [facility] [place] [facility] [address] [id number] [place] [address] Oct, [facility] [place] [facility] [address] [id number] [place] [address] Oct, [facility] [place] [facility] [address] [id number] [place] [address] Sep, [facility] [place] [facility] [address] [id number] [place] [address] Sep, [facility] [place] [facility] [address] [id number] [place] [address] Sep, [facility] [place] [facility] [address] [id number] [place] [address] Sep, [facility] [place] [facility] [address] [id number] [place] [address] Sep, [facility] [address] [id number] [place] [address] Sep, [facility] [address] [id number] [place] [address] Sep, [facility] [address] [id number] [place] [address] Sep, [facility] [address] [id number] [place] [address] Sep, [facility] [address] [id number] [place] [address] Aug, [facility] [address] [id number] [place] [address] Aug, [facility] [address] [id number] [place] [address] Aug, [facility] [address] [id number] [place] [address] Aug, [facility] [address] [id number] [place] [address] July, [facility] [address] [id number] [place] [address] July, [facility] [address] [id number] [place] [address] July, [facility] [address] [id number] [place] [address] July, [facility] [place] [facility] [address] [id number] [place] [address] July, [facility] [address] [id number] [place] [address]- 94[address] July, [facility] [address] [id number] [address] July, [facility] [address] [id number] [address] Jun, [facility] [address] [id number] [address] May, [facility] [address] [id number] [address] May, [facility] [id number] [address] May, [facility] [address] [id number] [address] May, [facility] [id number] [address] May, [facility] [id number] [address] May, [facility] [id number] [address] May, [facility] [address] [id number] [address] 2546 May, IMMUNIZATIONS No Known Immunizations SOCIAL HISTORY Never Assessed REASON FOR VISIT Appt. PLAN OF CARE VITAL SIGNS MEDICATIONS Unknown [...] 03/2015 Hospitalization History Pneumonia 04/2015 Hospitalization History Lawrencemary Fortune 5 nights - unresponsive 11/2017
--- OUTSIDE RECORDS SUMMARY | 2018-04-08 00:50 | XMS REPORT | Clinical Summary ---
Author Author [facility] Organization [facility] Address Unknown Phone Unavailable Care Team Providers Care Naprapath Name Role Phone Mario Carver MD PCP Unavailable Source Comments Some departments are not documenting in the electronic medical record. If you do not see the information that you expected, contact Release of Information in the Health Information Management department at [phone] for further assistance in locating additional records.[facility] Allergies Not on File Medications Not on [...] MEDICARE MEDICARE xxxxxxxxxx Medicare [employer] [facility] [facility] x[facility]xx Medicaid Thea Gill Transplant Self [address] ([place]) [place] [address] Advance Directives Patient has advance care planning documents on file. For more information, please contact: [place] [address] Kellie Kim [address] [place] [address]
[2018-04-08 00:57] LABS: BASOPHILS % (AUTO) 0 % (0-10); EOSINOPHILS # (AUTO) 0.2 10^3/uL (0.0-0.3); EOSINOPHILS % (AUTO) 3 % (0-10); HEMATOCRIT 28 % (35-52); HEMOGLOBIN 8.7 G/DL (11.5-16.0); LYMPHOCYTES # (AUTO) 1.6 X 10^3 (1.0-4.0); LYMPHOCYTES % (AUTO) 23 % (12-44); MEAN CORPUSCULAR HEMOGLOBIN 32 PG (25-34); MEAN CORPUSCULAR HGB CONC 31 G/DL (32-36); MEAN CORPUSCULAR VOLUME 104 FL (80-99); MEAN PLATELET VOLUME 13.1 FL (7.4-10.4); MONOCYTES # (AUTO) 0.7 X 10^3 (0.0-1.0); MONOCYTES % (AUTO) 9 % (0-12); NEUTROPHILS # (AUTO) 4.6 X 10^3 (1.8-7.8); NEUTROPHILS % (AUTO) 64 % (42-75); PLATELET COUNT 146 10^3/uL (130-400); RED BLOOD COUNT 2.74 10^6/uL (4.35-5.85); RED CELL DISTRIBUTION WIDTH 18.1 % (10.0-14.5); WHITE BLOOD COUNT 7.1 10^3/uL (4.3-11.0)
[2018-04-08] MEDS ORDERED: ONDANSETRON 4 MG/2 ML (SDV) Z0FRAN IVP ONE ×2 (01:00→02:15)
[2018-04-08 01:16] LABS: ALBUMIN 3.4 GM/DL (3.2-4.5); BILIRUBIN,TOTAL 0.5 MG/DL (0.1-1.0); CALCIUM 8.8 MG/DL (8.5-10.1); CREATININE SERUM 10.22 MG/DL (0.60-1.30); POTASSIUM 5.6 MMOL/L (3.6-5.0); TOTAL PROTEIN 6.2 GM/DL (6.4-8.2)
[2018-04-08 01:20] LABS: INR 2.8 (0.8-1.4); PROTHROMBIN TIME PATIENT 29.3 SEC (12.2-14.7)
[2018-04-08 01:27] LABS: DIGOXIN 2.48 NG/ML (0.80-2.00)
--- OUTSIDE RECORDS SUMMARY | 2018-04-08 01:42 | XMS REPORT | Continuity of Care Document ---
Author Author [facility] Address Unknown Phone Unavailable Allergies Active Description Code Type Severity Reaction Onset Reported/Identified Relationship to Patient Clinical Status Yes adhesive [id number] Drug Allergy Unknown N/A 05/01/2007 Yes TAPE TAPE Mild N/ A 05/16/2010 Yes flu vaccine [id number](4 yr+) [id number] Drug Allergy Mild HIVES 2012 Yes aspirin Drug Allergy N/A N/A 05/07/2012 Yes aloe vera [id number] Drug Allergy Severe RASH 11/05/2013 Medications There [...] LONG, MCKENNA T 782.3 EDEMA 05/20/2012 [facility] PATIENT TRANSPORT ORDERLY, MCKENNA T 782.3 EDEMA 05/20/2012 MCKENNA HEBERT [...] MD 586 RENAL FAILURE UNSPECIFIED 06/20/2012 [facility] PATIENT TRANSPORT ORDERLY, MCKENNA T 586 RENAL FAILURE UNSPECIFIED 06/20/2012 [facility] PATIENT TRANSPORT ORDERLY, MCKENNA T 586 RENAL FAILURE UNSPECIFIED 06/20/2012 [facility] PATIENT TRANSPORT ORDERLY, MCKENNA T 586 RENAL FAILURE UNSPECIFIED 06/20/2012 [facility] PATIENT TRANSPORT ORDERLY, MCKENNA T 586 RENAL FAILURE UNSPECIFIED 06/20/2012 EMILEE LONG, MCKENNA T 586 RENAL FAILURE UNSPECIFIED 06/20/2012 GIACOMO SANDOVAL MD 586 RENAL FAILURE UNSPECIFIED 06/20/2012 EMILEE LONG, MCKENNA T 586 RENAL FAILURE UNSPECIFIED 06/20/2012 [facility] PATIENT TRANSPORT ORDERLY, MCKENNA T 586 RENAL FAILURE UNSPECIFIED 06/20/2012 [facility] PATIENT TRANSPORT ORDERLY, MCKENNA T 586 RENAL FAILURE UNSPECIFIED 06/20/2012 [facility] PATIENT TRANSPORT ORDERLY, MCKENNA T 586 RENAL FAILURE UNSPECIFIED 06/20/2012 [facility] PATIENT TRANSPORT ORDERLY, MCKENNA T 586 RENAL FAILURE UNSPECIFIED 06/20/2012 [facility] PATIENT TRANSPORT ORDERLY, MCKENNA T 586 RENAL FAILURE UNSPECIFIED 06/20/2012 [...] 428.0 CONGESTIVE HEART FAILURE UNSPECIFIED 09/03/2012 [facility] PATIENT TRANSPORT ORDERLY, MCKENNA T 272.4 DYSLIPIDEMIA 09/03/2012 [facility] PATIENT TRANSPORT ORDERLY, MCKENNA T 401.9 HYPERTENSION, UNSPECIFIED ESSENTIAL 09/03/2012 [facility] PATIENT TRANSPORT ORDERLY, MCKENNA T 428.0 CONGESTIVE HEART FAILURE UNSPECIFIED 09/03/2012 GIACOMO SANDOVAL MD 272.4 DYSLIPIDEMIA 09/03/2012 GIACOMO SANDOVAL MD 401.9 HYPERTENSION, UNSPECIFIED ESSENTIAL 09/03/2012 GIACOMO SANDOVAL MD 428.0 CONGESTIVE HEART FAILURE UNSPECIFIED 09/03/2012 [facility] PATIENT TRANSPORT ORDERLY, MCKENNA T 272.4 DYSLIPIDEMIA 09/03/2012 E[facility] PATIENT TRANSPORT ORDERLY, MCKENNA T 401.9 HYPERTENSION, UNSPECIFIED ESSENTIAL 09/03/2012 [facility] PATIENT TRANSPORT ORDERLY, MCKENNA T 428.0 CONGESTIVE HEART FAILURE UNSPECIFIED 09/03/2012 [facility] PATIENT TRANSPORT ORDERLY, MCKENNA T 272.4 DYSLIPIDEMIA 09/03/2012 [facility] PATIENT TRANSPORT ORDERLY, MCKENNA T 401.9 HYPERTENSION, UNSPECIFIED ESSENTIAL 09/03/2012 [facility] PATIENT TRANSPORT ORDERLY, MCKENNA T 428.0 CONGESTIVE HEART FAILURE UNSPECIFIED 09/03/2012 [facility] PATIENT TRANSPORT ORDERLY, MCKENNA T 272.4 DYSLIPIDEMIA 09/03/2012 [facility] PATIENT TRANSPORT ORDERLY, MCKENNA T 401.9 HYPERTENSION, UNSPECIFIED ESSENTIAL 09/03/2012 [facility] PATIENT TRANSPORT ORDERLY, MCKENNA T 428.0 CONGESTIVE HEART FAILURE UNSPECIFIED 09/03/2012 [facility] PATIENT TRANSPORT ORDERLY, MCKENNA T 272.4 DYSLIPIDEMIA 09/03/2012 E[facility] PATIENT TRANSPORT ORDERLY, MCKENNA T 401.9 HYPERTENSION, UNSPECIFIED ESSENTIAL 09/03/2012 [facility] PATIENT TRANSPORT ORDERLY, MCKENNA T 428.0 CONGESTIVE HEART FAILURE UNSPECIFIED 09/03/2012 [facility] PATIENT TRANSPORT ORDERLY, MCKENNA T 272.4 DYSLIPIDEMIA 09/03/2012 [facility] PATIENT TRANSPORT ORDERLY, MCKENNA T 401.9 HYPERTENSION, UNSPECIFIED ESSENTIAL 09/03/2012 [facility] PATIENT TRANSPORT ORDERLY, MCKENNA T 428.0 CONGESTIVE HEART FAILURE UNSPECIFIED 09/03/2012 [facility] PATIENT TRANSPORT ORDERLY, MCKENNA T 272.4 DYSLIPIDEMIA 09/03/2012 [facility] PATIENT TRANSPORT ORDERLY, MCKENNA T 401.9 HYPERTENSION, UNSPECIFIED ESSENTIAL 09/03/2012 [facility] PATIENT TRANSPORT ORDERLY, MCKENNA T 428.0 CONGESTIVE HEART FAILURE UNSPECIFIED 09/03/2012 [facility] PATIENT TRANSPORT ORDERLY, MCKENNA T 272.4 DYSLIPIDEMIA 09/03/2012 [facility] PATIENT TRANSPORT ORDERLY, MCKENNA T 401.9 HYPERTENSION, UNSPECIFIED ESSENTIAL 09/03/2012 [facility] PATIENT TRANSPORT ORDERLY, MCKENNA T 428.0 CONGESTIVE HEART FAILURE UNSPECIFIED 09/03/2012 [facility] PATIENT TRANSPORT ORDERLY, MCKENNA T 272.4 DYSLIPIDEMIA 09/03/2012 [facility] PATIENT TRANSPORT ORDERLY, MCKENNA T 401.9 HYPERTENSION, UNSPECIFIED ESSENTIAL 09/03/2012 [...] GIACOMO SANDOVAL MD 786.09 DYSPNEA 10/15/2012 [facility] PATIENT TRANSPORT ORDERLY, MCKENNA T 425.4 CARDIOMYOPHATHY 10/15/2012 [facility] PATIENT TRANSPORT ORDERLY, MCKENNA T 786.09 DYSPNEA 10/15/2012 [facility] PATIENT TRANSPORT ORDERLY, MCKENNA T 425.4 CARDIOMYOPHATHY 10/15/2012 [facility] PATIENT TRANSPORT ORDERLY, MCKENNA T 786.09 DYSPNEA 10/15/2012 E[facility] PATIENT TRANSPORT ORDERLY, MCKENNA T 425.4 CARDIOMYOPHATHY 10/15/2012 E[facility] PATIENT TRANSPORT ORDERLY, MCKENNA T 786.09 DYSPNEA 10/15/2012 [facility] PATIENT TRANSPORT ORDERLY, MCKENNA T 425.4 CARDIOMYOPHATHY 10/15/2012 EMILEE LONG, MCKENNA T 786.09 DYSPNEA 10/15/2012 [facility] PATIENT TRANSPORT ORDERLY, MCKENNA T 425.4 CARDIOMYOPHATHY 10/15/2012 EMILEE LONG, MCKENNA T 786.09 DYSPNEA 10/15/2012 GIACOMO SANDOVAL MD 425.4 CARDIOMYOPHATHY 10/15/2012 GIACOMO SANDOVAL MD 786.09 DYSPNEA 10/15/2012 EMILEE MCGUIREN, MCKENNA T 425.4 CARDIOMYOPHATHY 10/15/2012 [facility] PATIENT TRANSPORT ORDERLY, MCKENNA T 786.09 DYSPNEA 10/15/2012 [facility] PATIENT TRANSPORT ORDERLY, MCKENNA T 425.4 CARDIOMYOPHATHY 10/15/2012 EMILEE MCGUIREN, MCKENNA T 786.09 DYSPNEA 10/15/2012 [facility] PATIENT TRANSPORT ORDERLY, MCKENNA T 425.4 CARDIOMYOPHATHY 10/15/2012 [facility] PATIENT TRANSPORT ORDERLY, MCKENNA T 786.09 DYSPNEA 10/15/2012 [facility] PATIENT TRANSPORT ORDERLY, MCKENNA T 425.4 CARDIOMYOPHATHY 10/15/2012 EMILEE LONG, MCKENNA T 786.09 DYSPNEA 10/15/2012 [facility] PATIENT TRANSPORT ORDERLY, MCKENNA T 425.4 CARDIOMYOPHATHY 10/15/2012 [facility] PATIENT TRANSPORT ORDERLY, MCKENNA T 786.09 DYSPNEA 10/15/2012 E[facility] PATIENT TRANSPORT ORDERLY, MCKENNA T 425.4 CARDIOMYOPHATHY 10/15/2012 E[facility] PATIENT TRANSPORT ORDERLY, MCKENNA T 786.09 DYSPNEA 10/15/2012 E[facility] PATIENT TRANSPORT ORDERLY, MCKENNA T 425.4 CARDIOMYOPHATHY 10/15/2012 [facility] PATIENT TRANSPORT ORDERLY, MCKENNA T 786.09 DYSPNEA 10/15/2012 [facility] PATIENT TRANSPORT ORDERLY, MCKENNA T 425.4 CARDIOMYOPHATHY 10/15/2012 EMILEE LONG, [...] 428.0 CONGESTIVE HEART FAILURE NOS 11/19/2012 GIACOMO SNADOVAL MD Ot 428.32 CHRONIC DIASTOLIC HRT FAILURE [...] CANDIDIASIS OF SKIN AND NAILS 03/04/2013 [facility] PATIENT TRANSPORT ORDERLY, MCKENNA T V76.10 BREAST CANCER SCREENING 03/04/2013 [...] MCKENNA HEBERT APRN T 786.2 COUGH 04/27/2013 CMKENNA HEBERT APRN T 786.2 COUGH 04/27/2013 MCKENNA [...] MD 401.1 BENIGN ESSENTIAL HYPERTENSION 05/13/2013 GIACOMO SANDOAVL MD 585.4 CHRONIC KIDNEY DISEASE STAGE IV [...] CHRONIC KIDNEY DISEASE STAGE IV (SEVERE) 05/13/2013 CMKENNA HEBERT APRN 588.0 RENAL OSTEODYSTROPHY 05/13/2013 MCKENNA [...] MCKENNA HEBERT APRN 791.0 PROTEINURIA 05/13/2013 [facility] PATIENT TRANSPORT ORDERLY, MCKENNA T 250.40 DIABETES WITH RENAL MANIFESTATIONS [...] 10/15/2013 BARON CHISHOLM MD Ot 440.24 ATHEROSCL [place] ARTERIES EXTREMITIES W 10/15/2013 BARON CHISHOLM MD [...] FRANCOISE ODOM MD E Ot 440.20 ATHEROSCLEROSIS [place] ARTERIES EXTREMIT 11/21/2013 FRANCOISE ODOM MD Ot [...] BODY MASS INDEX 40.0-44.9, ADULT 02/19/2014 MCKENNA HBEERT APRN 787.01 NAUSEA WITH VOMITING 02/19/2014 MCKENNA [...] MD Ot 786.05 SHORTNESS OF BREATH 10/19/2014 RALETTE DURÁN MD Ot V45.11 RENAL DIALYSIS STATUS [...] Ot E13.22 OTH DIABETES MELLITUS WITH 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 01/14/2015 ARLETTE DURÁN MD Ot I12.0 HYP CHR KIDNEY DISEASE W STAGE 5 CHR KID 01/14/2015 ARLETTE DURÁN MD Ot N18.6 END STAGE RENAL DISEASE 01/14/2015 ARLETTE DURÁN MD Ot R07.9 CHEST PAIN, UNSPECIFIED 01/14/2015 ARLETTE DURÁN MD Ot Z79.4 SHELTER (CURRENT) USE OF INSULIN 01/14/2015 ARLETTE DURÁN MD Ot Z99.2 DEPENDENCE ON RENAL DIALYSIS 01/15/2015 ZAINA HURTADO DO Ot D63.8 ANEMIA IN OTHER CHRONIC DISEASES CLASSIF 01/15/2015 ZAINA HURTADO DO Ot 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 01/15/2015 ZAINA HURTADO DO Ot E11.65 TYPE 2 DIABETES MELLITUS WITH HYPERGLYCE 01/15/2015 ZAINA HURTADO DO Ot I10 ESSENTIAL (PRIMARY) HYPERTENSION 01/15/2015 TATIANA HURTADO DOA Ramos Ot I25.10 ATHSCL HEART DISEASE OF [place] CORONARY 01/15/2015 ZAINA HURTADO DO Ot I73.9 [...] ZAINA Ramos Ot Z91.19 PATIENT'S NONCOMPLIANCE W [facility] 01/15/2015 GENESIS TOBAR ZAINA K [...] WHEELCHAIR, INITIAL 03/20/2015 ROMANA BRAN Ot Y92.[address] [facility] [address] IN [facility] NON-INSTITUT (PRIVATE 03/20/2015 ROMANA BRAN Ot Y99.8 OTHER EXTERNAL CAUSE STATUS 03/20/2015 ROMANA BRAN Ot Z79.4 DATA ANALYST ETL DEVELOPER (CURRENT) USE OF INSULIN 03/20/2015 ROMANA BRAN [...] CL 03/23/2015 VERA HERNÁNDEZ MD, Ot Z79.4 DATA ANALYST ETL DEVELOPER (CURRENT) USE OF INSULIN 03/23/2015 VERA HERNÁNDEZ [...] UNSPECIFIED 04/23/2015 MCKENNA BARRON DO Ot Z79.4 DATA ANALYST ETL DEVELOPER (CURRENT) USE OF INSULIN 04/23/2015 MCKENNA BARRON [...] DO Ot I25.10 ATHSCL HEART DISEASE OF [place] CORONARY 10/02/2015 ZAINA HURTADO DO Ot I73.9 PERIPHERAL VASCULAR DISEASE, UNSPECIFIED 10/02/2015 ZAINA HURTADO DO Ot J44.9 CHRONIC OBSTRUCTIVE PULMONARY DISEASE, U 10/02/2015 HURTADO DO, ZAINA K Ot N18.6 END STAGE RENAL DISEASE 10/02/2015 HURTADO DO ZAINA K Ot R07.9 CHEST PAIN, UNSPECIFIED 10/02/2015 HURTADO DOTATIANAA K Ot Z68.42 BODY MASS INDEX (BMI) 45.0-49.9, ADULT 10/02/2015 HURTADO DO ZAINA K Ot Z79.4 DATA ANALYST ETL DEVELOPER (CURRENT) USE OF INSULIN 10/02/2015 HURTADO DO [...] Ot E13.22 OTH DIABETES MELLITUS WITH 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 01/31/2016 ARLETTE DURÁN MD Ot I12.0 HYP CHR KIDNEY DISEASE W STAGE 5 CHR KID 01/31/2016 ARLETTE DURÁN MD Ot N18.6 END STAGE RENAL DISEASE 01/31/2016 ARLETTE DURÁN MD Ot R07.9 CHEST PAIN, UNSPECIFIED 01/31/2016 ARLETTE DURÁN MD Ot Z79.4 DATA ANALYST ETL DEVELOPER (CURRENT) USE OF INSULIN 01/31/2016 ARLETTE DURÁN MD Ot Z99.2 DEPENDENCE ON RENAL DIALYSIS 02/21/2016 MCKENNA HEBERT Ot Z89.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 03/07/2016 MCKENNA HEBERT ADMISSIONS SUPERVISOR Ot Z89.512 ACQUIRED ABSENCE OF LEFT [...] K Ot I25.10 ATHSCL HEART DISEASE OF [place] CORONARY 04/04/2016 TREMAINE DO, LORI K Ot J44.9 CHRONIC OBSTRUCTIVE PULMONARY DISEASE, U 04/04/2016 TREMAINE DO, LORI K Ot L03.115 CELLULITIS OF RIGHT LOWER LIMB 04/04/2016 TREMAINE DO, LORI K Ot N18.6 END STAGE RENAL DISEASE 04/04/2016 TREMAINE DO, LORI K Ot R22.41 LOCALIZED SWELLING, MASS AND LUMP, RIGHT 04/04/2016 TREMAINE DO, LORI K Ot Z79.4 SHELTER (CURRENT) USE OF INSULIN 04/04/2016 TREMAINE DO, LORI K Ot Z79.82 SHELTER (CURRENT) USE OF ASPIRIN 04/04/2016 TREMAINE DO, LORI K Ot Z79.899 OTHER DATA ANALYST ETL DEVELOPER (CURRENT) DRUG THERAPY 04/04/2016 TREMAINE DO, LORI K Ot Z99.2 DEPENDENCE ON RENAL DIALYSIS 04/05/2016 TREMAINE DO, LORI K Ot E11.621 TYPE 2 DIABETES MELLITUS WITH FOOT ULCER 04/05/2016 TREMAINE DO, LORI K Ot I12.0 HYP CHR KIDNEY DISEASE W STAGE 5 CHR KID 04/05/2016 TREMAINE DO, LORI K Ot I25.10 ATHSCL HEART DISEASE OF [place] CORONARY 04/05/2016 TREMAINE DO, LORI K Ot J44.9 CHRONIC OBSTRUCTIVE PULMONARY DISEASE, U 04/05/2016 TREMAINE DO, LORI K Ot L03.115 CELLULITIS OF RIGHT LOWER LIMB 04/05/2016 TREMAINE DO, LORI K Ot N18.6 END STAGE RENAL DISEASE 04/05/2016 TREMAINE DO, LORI K Ot R22.41 LOCALIZED SWELLING, MASS AND LUMP, RIGHT 04/05/2016 TREMAINE DO, LORI K Ot Z79.4 SHELTER (CURRENT) USE OF INSULIN 04/05/2016 TREMAINE DO, LORI K Ot Z79.82 SHELTER (CURRENT) USE OF ASPIRIN 04/05/2016 TREMAINE DO, LORI K Ot Z79.899 OTHER DATA ANALYST ETL DEVELOPER (CURRENT) DRUG THERAPY 04/05/2016 TREMAINE DO, LORI K Ot Z99.2 DEPENDENCE ON RENAL DIALYSIS 04/13/2016 TREMAINE DO, LORI K Ot E11.621 TYPE 2 DIABETES MELLITUS WITH FOOT ULCER 04/13/2016 TREMAINE DO, LORI K Ot I12.0 HYP CHR KIDNEY DISEASE W STAGE 5 CHR KID 04/13/2016 TREMAINE DO, LORI K Ot I25.10 ATHSCL HEART DISEASE OF [place] CORONARY 04/13/2016 TREMAINE DO, LORI K Ot J44.9 CHRONIC OBSTRUCTIVE PULMONARY DISEASE, U 04/13/2016 TREMAINE DO, LORI K Ot L03.115 CELLULITIS OF RIGHT LOWER LIMB 04/13/2016 TREMAINE DO, LORI K Ot N18.6 END STAGE RENAL DISEASE 04/13/2016 TREMAINE DO, LORI K Ot R22.41 LOCALIZED SWELLING, MASS AND LUMP, RIGHT 04/13/2016 TREMAINE DO, LORI K Ot Z79.4 SHELTER (CURRENT) USE OF INSULIN 04/13/2016 TREMAINE DO, LORI K Ot Z79.82 SHELTER (CURRENT) USE OF ASPIRIN 04/13/2016 TREMAINE DO, LORI K Ot Z79.899 OTHER DATA ANALYST ETL DEVELOPER (CURRENT) DRUG THERAPY 04/13/2016 TREMAINE DO, LORI K Ot Z99.2 DEPENDENCE ON RENAL DIALYSIS 04/24/2016 VIKKI KWOK MD Ot L02.611 CUTANEOUS ABSCESS OF RIGHT FOOT 04/25/2016 MCKENNA HEBERT Ot Z89.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 04/30/2016 MCKENNA HEBERT Ot Z89.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 05/02/2016 ARLETTE DURÁN MD Ot E13.22 OTH DIABETES MELLITUS WITH 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 05/02/2016 ARLETTE DURÁN MD Ot I12.0 HYP CHR KIDNEY DISEASE W STAGE 5 CHR KID 05/02/2016 ARLETTE DURÁN MD Ot N18.6 END STAGE RENAL DISEASE 05/02/2016 ARLETTE DURÁN MD Ot R07.9 CHEST PAIN, UNSPECIFIED 05/02/2016 ARLETTE DURÁN MD Ot Z79.4 SHELTER (CURRENT) USE OF INSULIN 05/02/2016 ARLETTE DURÁN [...] 06/26/2016 PIETER POOLE MD Ot 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 06/26/2016 PIETER POOLE MD Ot 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 06/26/2016 PIETER POOLE MD, Ot E11.621 TYPE 2 DIABETES MELLITUS WITH FOOT ULCER 06/26/2016 PIETER POOLE MD Ot 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 [...] 06/27/2016 LORETTA MARTINO APRN Ot 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 06/27/2016 LORETTA MARTINO APRN Ot I89.0 LYMPHEDEMA, NOT ELSEWHERE CLASSIFIED 06/27/2016 LORETTA MARTINO APRN Ot L97.512 NON-PRS CHRONIC ULCER OTH PRT RIGHT FOOT 06/27/2016 LORETTA MARTINO PATIENT TRANSPORT ORDERLY Ot L97.513 NON-PRS CHRONIC ULCER OTH PRT RIGHT FOOT 06/27/2016 LORETTA MARTINO PATIENT TRANSPORT ORDERLY Ot N18.6 END STAGE RENAL DISEASE 07/09/2016 GUNNER LORETTA R PATIENT TRANSPORT ORDERLY Ot E11.621 TYPE 2 DIABETES MELLITUS WITH FOOT ULCER 07/09/2016 LORETTA MARTINO PATIENT TRANSPORT ORDERLY Ot E66.01 MORBID (SEVERE) OBESITY DUE TO EXCESS CA 07/09/2016 LORETTA MARTINO PATIENT TRANSPORT ORDERLY Ot I50.20 UNSPECIFIED SYSTOLIC (CONGESTIVE) HEART 07/09/2016 LORETTA MARTINO PATIENT TRANSPORT ORDERLY Ot 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 07/09/2016 LORETTA MARTINO PATIENT TRANSPORT ORDERLY Ot I89.0 LYMPHEDEMA, NOT ELSEWHERE CLASSIFIED 07/09/2016 LORETTA MARTION PATIENT TRANSPORT ORDERLY Ot L97.512 NON-PRS CHRONIC ULCER OTH PRT RIGHT FOOT 07/09/2016 LORETTA MARTINO PATIENT TRANSPORT ORDERLY Ot L97.513 NON-PRS CHRONIC ULCER OTH PRT RIGHT FOOT 07/09/2016 LORETTA MARTINO PATIENT TRANSPORT ORDERLY Ot N18.6 END STAGE RENAL DISEASE 07/24/2016 ALDA FERRARO ADMISSIONS SUPERVISOR Ot 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 07/24/2016 ALDA FERRARO ADMISSIONS SUPERVISOR Ot E66.01 MORBID (SEVERE) OBESITY DUE TO EXCESS CA 07/24/2016 ALDA FERRARO ADMISSIONS SUPERVISOR Ot I12.0 HYP CHR KIDNEY DISEASE W STAGE 5 CHR KID 07/24/2016 ALDA EFRRARO L ADMISSIONS SUPERVISOR Ot I25.10 ATHSCL HEART DISEASE OF [place] CORONARY 07/24/2016 ALDA FERRARO L ADMISSIONS SUPERVISOR Ot 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 07/24/2016 ALDA FERRARO ADMISSIONS SUPERVISOR Ot I70.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 07/24/2016 ALDA FERRARO ADMISSIONS SUPERVISOR Ot L97.519 NON-PRS CHRONIC ULCER OTH PRT RIGHT FOOT 07/24/2016 ALDA FERRARO ADMISSIONS SUPERVISOR Ot N18.5 CHRONIC KIDNEY DISEASE, STAGE 5 07/24/2016 ALDA FERRARO ADMISSIONS SUPERVISOR Ot R06.00 DYSPNEA, UNSPECIFIED 07/24/2016 ALDA FERRARO ADMISSIONS SUPERVISOR Ot Z68.43 BODY MASS INDEX (BMI) 50-59.9 , ADULT 07/24/2016 ALDA FERRARO ADMISSIONS SUPERVISOR Ot Z79.899 OTHER DATA ANALYST ETL DEVELOPER (CURRENT) DRUG THERAPY 07/24/2016 ADLA FERRARO ADMISSIONS SUPERVISOR Ot Z89.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 07/24/2016 ALDA FERRARO ADMISSIONS SUPERVISOR Ot Z99.2 DEPENDENCE ON RENAL DIALYSIS 07/31/2016 LORETTA MARTINO PATIENT TRANSPORT ORDERLY Ot E11.621 TYPE 2 DIABETES MELLITUS WITH FOOT ULCER 07/31/2016 LORETTA MARTINO PATIENT TRANSPORT ORDERLY Ot E66.01 MORBID (SEVERE) OBESITY DUE TO EXCESS CA 07/31/2016 LORETTA MARTINO PATIENT TRANSPORT ORDERLY Ot I50.20 UNSPECIFIED SYSTOLIC (CONGESTIVE) HEART 07/31/2016 LORETTA MARTINO PATIENT TRANSPORT ORDERLY Ot 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 07/31/2016 LORETTA MARTINO PATIENT TRANSPORT ORDERLY Ot I89.0 LYMPHEDEMA, NOT ELSEWHERE CLASSIFIED 07/31/2016 LORETTA MARTINO PATIENT TRANSPORT ORDERLY Ot L97.512 NON-PRS CHRONIC ULCER OTH PRT RIGHT FOOT 07/31/2016 LORETTA MARTINO PATIENT TRANSPORT ORDERLY Ot L97.513 NON-PRS CHRONIC ULCER OTH PRT RIGHT FOOT 07/31/2016 LORETTA MARTINO PATIENT TRANSPORT ORDERLY Ot N18.6 END STAGE RENAL DISEASE 08/17/2016 LORETTA AMRTINO PATIENT TRANSPORT ORDERLY Ot E11.621 TYPE 2 DIABETES MELLITUS WITH FOOT ULCER 08/17/2016 LORETTA MARTINO PATIENT TRANSPORT ORDERLY Ot E66.01 MORBID (SEVERE) OBESITY DUE TO EXCESS CA 08/17/2016 LORETTA MARTINO PATIENT TRANSPORT ORDERLY Ot I50.20 UNSPECIFIED SYSTOLIC (CONGESTIVE) HEART 08/17/2016 LORETTA MARTINO PATIENT TRANSPORT ORDERLY Ot 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 08/17/2016 LORETTA MARTINO PATIENT TRANSPORT ORDERLY Ot I89.0 LYMPHEDEMA, NOT ELSEWHERE CLASSIFIED 08/17/2016 LORETTA MARTINO PATIENT TRANSPORT ORDERLY Ot L97.512 NON-PRS CHRONIC ULCER OTH PRT RIGHT FOOT 08/17/2016 LORETTA MARTINO PATIENT TRANSPORT ORDERLY Ot L97.513 NON-PRS CHRONIC ULCER OTH PRT RIGHT FOOT 08/17/2016 LORETTA MARTINO PATIENT TRANSPORT ORDERLY Ot N18.6 END STAGE RENAL DISEASE 08/23/2016 AUDRAALDA VALADEZ ADMISSIONS SUPERVISOR Ot 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 08/23/2016 AUDRAALDA VALADEZ L ADMISSIONS SUPERVISOR Ot E66.01 MORBID (SEVERE) OBESITY DUE TO EXCESS CA 08/23/2016 ALDA FERRARO ADMISSIONS SUPERVISOR Ot I12.0 HYP CHR KIDNEY DISEASE W STAGE 5 CHR KID 08/23/2016 ALDA FERRARO ADMISSIONS SUPERVISOR Ot I25.10 ATHSCL HEART DISEASE OF [place] CORONARY 08/23/2016 AUDRAALDA VALADEZ ADMISSIONS SUPERVISOR Ot 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 08/23/2016 AUDRAALDA VALADEZ ADMISSIONS SUPERVISOR Ot I70.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 08/23/2016 AUDRAALLYSON ALDA L ADMISSIONS SUPERVISOR Ot L97.519 NON-PRS CHRONIC ULCER OTH PRT RIGHT FOOT 08/23/2016 AUDRAALDA VALADEZ ADMISSIONS SUPERVISOR Ot N18.5 CHRONIC KIDNEY DISEASE, STAGE 5 08/23/2016 AUDRAALDA VALADEZ ADMISSIONS SUPERVISOR Ot R06.00 DYSPNEA, UNSPECIFIED 08/23/2016 AUDRAALDA VALADEZ L ADMISSIONS SUPERVISOR Ot Z68.43 BODY MASS INDEX (BMI) 50-59.9 , ADULT 08/23/2016 AUDRAALDA VALADEZ L ADMISSIONS SUPERVISOR Ot Z79.899 OTHER DATA ANALYST ETL DEVELOPER (CURRENT) DRUG THERAPY 08/23/2016 AUDRAALDA VALADEZ L ADMISSIONS SUPERVISOR Ot Z89.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 08/23/2016 AUDRAALDA VALADEZ L ADMISSIONS SUPERVISOR Ot Z99.2 DEPENDENCE ON RENAL DIALYSIS 09/17/2016 LORETTA MARTINO PATIENT TRANSPORT ORDERLY Ot E11.621 TYPE 2 DIABETES MELLITUS WITH FOOT ULCER 09/17/2016 LORETTA MARTINO PATIENT TRANSPORT ORDERLY Ot E66.01 MORBID (SEVERE) OBESITY DUE TO EXCESS CA 09/17/2016 LORETTA MARTINO PATIENT TRANSPORT ORDERLY Ot I50.20 UNSPECIFIED SYSTOLIC (CONGESTIVE) HEART 09/17/2016 LORETTA MARTINO PATIENT TRANSPORT ORDERLY Ot 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 09/17/2016 LORETTA MARTINO PATIENT TRANSPORT ORDERLY Ot I89.0 LYMPHEDEMA, NOT ELSEWHERE CLASSIFIED 09/17/2016 LORETTA MARTINO PATIENT TRANSPORT ORDERLY Ot L97.512 NON-PRS CHRONIC ULCER OTH PRT RIGHT FOOT 09/17/2016 LORETTA MARTINO PATIENT TRANSPORT ORDERLY Ot L97.513 NON-PRS CHRONIC ULCER OTH PRT RIGHT FOOT 09/17/2016 LORETTA MARTINO PATIENT TRANSPORT ORDERLY Ot N18.6 END STAGE RENAL DISEASE 09/18/2016 LORETTA MARTINO PATIENT TRANSPORT ORDERLY Ot E11.621 TYPE 2 DIABETES MELLITUS WITH FOOT ULCER 09/18/2016 LORETTA MARTINO PATIENT TRANSPORT ORDERLY Ot E66.01 MORBID (SEVERE) OBESITY DUE TO EXCESS CA 09/18/2016 LORETTA MARTINO PATIENT TRANSPORT ORDERLY Ot I50.20 UNSPECIFIED SYSTOLIC (CONGESTIVE) HEART 09/18/2016 LORETTA MARTINO PATIENT TRANSPORT ORDERLY Ot 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 09/18/2016 LORETTA MARTINO PATIENT TRANSPORT ORDERLY Ot I89.0 LYMPHEDEMA, NOT ELSEWHERE CLASSIFIED 09/18/2016 LORETTA MARTINO PATIENT TRANSPORT ORDERLY Ot L97.512 NON-PRS CHRONIC ULCER OTH PRT RIGHT FOOT 09/18/2016 LORETTA MARTINO PATIENT TRANSPORT ORDERLY Ot L97.513 NON-PRS CHRONIC ULCER OTH PRT RIGHT FOOT 09/18/2016 LORETTA MARTINO PATIENT TRANSPORT ORDERLY Ot N18.6 END STAGE RENAL DISEASE 09/19/2016 Ot 272.4 HYPERLIPIDEMIA NEC/NOS 09/19/2016 Ot 401.9 HYPERTENSION NOS 09/19/2016 Ot V58.69 OTH MED,LT, CURRENT USE 09/19/2016 SUNDAR RAMSEY, VIKKI Jaffe Ot L02.611 CUTANEOUS ABSCESS OF RIGHT FOOT 09/19/2016 VIRGILIO RAMSEY, PIETER Lopez Ot E11.621 TYPE 2 DIABETES MELLITUS WITH FOOT ULCER 09/19/2016 VIRGILIO RAMSEY, PITEER Lopez Ot 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 09/19/2016 VIRGILIO RAMSEY, PIETER Lopez Ot 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 09/19/2016 LORETTA MARTINO PATIENT TRANSPORT ORDERLY Ot E11.621 TYPE 2 DIABETES MELLITUS WITH FOOT ULCER 09/19/2016 LORETTA MARTINO PATIENT TRANSPORT ORDERLY Ot E66.01 MORBID (SEVERE) OBESITY DUE TO EXCESS CA 09/19/2016 LORETTA MARTINO APRN Ot I50.20 UNSPECIFIED SYSTOLIC (CONGESTIVE) HEART 09/19/2016 LORETTA MARTINO APRN Ot 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 09/19/2016 LORETTA MARTINO PATIENT TRANSPORT ORDERLY Ot I89.0 LYMPHEDEMA, NOT ELSEWHERE CLASSIFIED 09/19/2016 LORETTA MARTINO PATIENT TRANSPORT ORDERLY Ot L97.512 NON-PRS CHRONIC ULCER OTH PRT RIGHT FOOT 09/19/2016 LORETTA MARTINO PATIENT TRANSPORT ORDERLY Ot L97.513 NON-PRS CHRONIC ULCER OTH PRT RIGHT FOOT 09/19/2016 LORETTA MARTINO PATIENT TRANSPORT ORDERLY Ot N18.6 END STAGE RENAL DISEASE 09/20/2016 LORETTA MARTINO PATIENT TRANSPORT ORDERLY Ot E11.621 TYPE 2 DIABETES MELLITUS WITH FOOT ULCER 09/20/2016 LORETTA MARTINO PATIENT TRANSPORT ORDERLY Ot E66.01 MORBID (SEVERE) OBESITY DUE TO EXCESS CA 09/20/2016 LORETTA MARTINO PATIENT TRANSPORT ORDERLY Ot I50.20 UNSPECIFIED SYSTOLIC (CONGESTIVE) HEART 09/20/2016 LORETTA MARTINO APRN Ot 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 09/20/2016 LORETTA MARTINO PATIENT TRANSPORT ORDERLY Ot I89.0 LYMPHEDEMA, NOT ELSEWHERE CLASSIFIED 09/20/2016 LORETTA MARTINO PATIENT TRANSPORT ORDERLY Ot L97.512 NON-PRS CHRONIC ULCER OTH PRT [...] 09/20/2016 PIETER POOLE MD Ot 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 09/20/2016 PIETER POOLE MD Ot 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 09/20/2016 LORETTA MARTINO PATIENT TRANSPORT ORDERLY Ot E11.621 TYPE 2 DIABETES MELLITUS WITH FOOT ULCER 09/20/2016 LORETTA MARTINO APRN Ot E66.01 MORBID (SEVERE) OBESITY DUE TO EXCESS CA 09/20/2016 GUNNER, LORETTA R PATIENT TRANSPORT ORDERLY Ot I50.20 UNSPECIFIED SYSTOLIC (CONGESTIVE) HEART 09/20/2016 LORETTA MARTINO PATIENT TRANSPORT ORDERLY Ot 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 09/20/2016 LORETTA MARTINO PATIENT TRANSPORT ORDERLY Ot I89.0 LYMPHEDEMA, NOT ELSEWHERE CLASSIFIED 09/20/2016 LORETTA MARTINO PATIENT TRANSPORT ORDERLY Ot L97.512 NON-PRS CHRONIC ULCER OTH PRT RIGHT FOOT 09/20/2016 LORETTA MARTINO R PATIENT TRANSPORT ORDERLY Ot L97.513 NON-PRS CHRONIC ULCER OTH PRT RIGHT FOOT 09/20/2016 LORETTA MARTINO PATIENT TRANSPORT ORDERLY Ot N18.6 END STAGE RENAL DISEASE 09/21/2016 LORETTA MARTINO R PATIENT TRANSPORT ORDERLY Ot E11.621 TYPE 2 DIABETES MELLITUS WITH FOOT ULCER 09/21/2016 LORETTA MARTINO PATIENT TRANSPORT ORDERLY Ot E66.01 MORBID (SEVERE) OBESITY DUE TO EXCESS CA 09/21/2016 LORETTA MARTINO PATIENT TRANSPORT ORDERLY Ot I50.20 UNSPECIFIED SYSTOLIC (CONGESTIVE) HEART 09/21/2016 LORETTA MARTINO PATIENT TRANSPORT ORDERLY Ot 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 09/21/2016 LORETTA MARTINO PATIENT TRANSPORT ORDERLY Ot I89.0 LYMPHEDEMA, NOT ELSEWHERE CLASSIFIED 09/21/2016 LORETTA MARTINO PATIENT TRANSPORT ORDERLY Ot L97.512 NON-PRS CHRONIC ULCER OTH PRT RIGHT FOOT 09/21/2016 LORETTA MARTINO PATIENT TRANSPORT ORDERLY Ot L97.513 NON-PRS CHRONIC ULCER OTH PRT RIGHT FOOT 09/21/2016 LORETTA MARTINO PATIENT TRANSPORT ORDERLY Ot N18.6 END STAGE RENAL DISEASE 09/25/2016 SUNDAR RAMSEY, VIKKI Jaffe Ot L02.611 CUTANEOUS ABSCESS OF RIGHT FOOT 09/25/2016 PIETER POOLE MD Ot E11.621 TYPE 2 DIABETES MELLITUS WITH FOOT ULCER 09/25/2016 PIETER POOLE MD Ot 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 09/25/2016 PIETER POOLE MD Ot 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 09/25/2016 LORETTA MARTINO PATIENT TRANSPORT ORDERLY Ot E11.621 TYPE 2 DIABETES MELLITUS WITH FOOT ULCER 09/25/2016 LORETTA MARTINO PATIENT TRANSPORT ORDERLY Ot E66.01 MORBID (SEVERE) OBESITY DUE TO EXCESS CA 09/25/2016 LORETTA MARTINO PATIENT TRANSPORT ORDERLY Ot I50.20 UNSPECIFIED SYSTOLIC (CONGESTIVE) HEART 09/25/2016 LORETTA MARTINO PATIENT TRANSPORT ORDERLY Ot 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 09/25/2016 LORETTA MARTINO PATIENT TRANSPORT ORDERLY Ot I89.0 LYMPHEDEMA, NOT ELSEWHERE CLASSIFIED 09/25/2016 LORETTA MARTINO PATIENT TRANSPORT ORDERLY Ot L97.512 NON-PRS CHRONIC ULCER OTH PRT RIGHT FOOT 09/25/2016 LORETTA MARTINO PATIENT TRANSPORT ORDERLY Ot L97.513 NON-PRS CHRONIC ULCER OTH PRT RIGHT FOOT 09/25/2016 LORETTA MARTINO APRN Ot N18.6 END STAGE RENAL DISEASE 10/05/2016 LORETTA MARTINO APRN Ot Z45.2 ENCOUNTER FOR ADJUSTMENT AND MANAGEMENT 10/29/2016 LORETTA MARTINO APRN Ot E11.621 TYPE 2 DIABETES MELLITUS WITH FOOT ULCER 10/29/2016 LORETTA MARTINO PATIENT TRANSPORT ORDERLY Ot E66.01 MORBID (SEVERE) OBESITY DUE TO EXCESS CA 10/29/2016 LORETTA MARTINO PATIENT TRANSPORT ORDERLY Ot I50.20 UNSPECIFIED SYSTOLIC (CONGESTIVE) HEART 10/29/2016 LORETTA MARTINO APRN Ot 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 10/29/2016 LORETTA MARTINO APRN Ot I89.0 LYMPHEDEMA, NOT ELSEWHERE CLASSIFIED 10/29/2016 LORETTA MARTINO PATIENT TRANSPORT ORDERLY Ot L97.512 NON-PRS CHRONIC ULCER OTH PRT RIGHT FOOT 10/29/2016 LORETTA MARTINO APRN Ot L97.513 NON-PRS CHRONIC ULCER OTH PRT RIGHT FOOT 10/29/2016 LORETTA MARTINO APRN Ot N18.6 END STAGE RENAL DISEASE 11/01/2016 PIETER POOLE MD Ot E11.621 TYPE 2 DIABETES MELLITUS WITH FOOT ULCER 11/01/2016 PIETER POOLE MD Ot 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 11/01/2016 PIETER POOLE MD Ot 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 11/01/2016 LORETTA MARTINO APRN Ot Z45.2 ENCOUNTER FOR ADJUSTMENT AND MANAGEMENT 11/07/2016 LORETTA MARTINO APRN Ot E11.621 TYPE 2 DIABETES MELLITUS WITH FOOT ULCER 11/07/2016 LORETTA MARTINO PATIENT TRANSPORT ORDERLY Ot E66.01 MORBID (SEVERE) OBESITY DUE TO EXCESS CA 11/07/2016 LORETTA MARTINO APRN Ot I50.20 UNSPECIFIED SYSTOLIC (CONGESTIVE) HEART 11/07/2016 LORETTA MARTINO PATIENT TRANSPORT ORDERLY Ot 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 11/07/2016 LORETTA MARTINO PATIENT TRANSPORT ORDERLY Ot I89.0 LYMPHEDEMA, NOT ELSEWHERE CLASSIFIED 11/07/2016 LORETTA MARTINO PATIENT TRANSPORT ORDERLY Ot L03.115 CELLULITIS OF RIGHT LOWER LIMB 11/07/2016 LORETTA MARTINO PATIENT TRANSPORT ORDERLY Ot L97.211 NON-PRS CHRONIC ULCER OF RIGHT [place] 11/07/2016 LORETTA MARTINO PATIENT TRANSPORT ORDERLY Ot 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 11/07/2016 LORETTA MARTINO PATIENT TRANSPORT ORDERLY Ot L97.512 NON-PRS CHRONIC ULCER OTH PRT RIGHT FOOT 11/07/2016 LORETTA MARTINO APRN Ot N18.6 END STAGE RENAL DISEASE 11/07/2016 LORETTA MARTINO PATIENT TRANSPORT ORDERLY Ot Z68.43 BODY MASS INDEX (BMI) 50-59.9 , ADULT 11/16/2016 LORETTA MARTINO PATIENT TRANSPORT ORDERLY Ot E11.621 TYPE 2 DIABETES MELLITUS WITH FOOT ULCER 11/16/2016 LORETTA MARTINO PATIENT TRANSPORT ORDERLY Ot 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 11/16/2016 LORETTA MARTINO APRN Ot I89.0 LYMPHEDEMA, NOT ELSEWHERE CLASSIFIED 11/16/2016 LORETTA MARTINO PATIENT TRANSPORT ORDERLY Ot L97.211 NON-PRS CHRONIC ULCER OF RIGHT [place] 11/16/2016 LORETTA MARTINO PATIENT TRANSPORT ORDERLY Ot 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 11/16/2016 LORETTA MARTINO PATIENT TRANSPORT ORDERLY Ot L97.512 NON-PRS CHRONIC ULCER OTH PRT RIGHT FOOT 11/27/2016 LORETTA MARTINO PATIENT TRANSPORT ORDERLY Ot L03.115 CELLULITIS OF RIGHT LOWER LIMB 11/27/2016 LORETTA MARTINO PATIENT TRANSPORT ORDERLY Ot 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 11/27/2016 LORETTA MARTINO PATIENT TRANSPORT ORDERLY Ot Z45.2 ENCOUNTER FOR ADJUSTMENT AND MANAGEMENT 11/27/2016 LORETTA MARTINO PATIENT TRANSPORT ORDERLY Ot L03.115 CELLULITIS OF RIGHT LOWER LIMB 11/27/2016 LORETTA MARTINO PATIENT TRANSPORT ORDERLY Ot 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 11/27/2016 LORETTA MARTINO PATIENT TRANSPORT ORDERLY Ot Z45.2 ENCOUNTER FOR ADJUSTMENT AND MANAGEMENT 12/01/2016 LORETTA MATRINO PATIENT TRANSPORT ORDERLY Ot E11.621 TYPE 2 DIABETES MELLITUS WITH FOOT ULCER 12/01/2016 LORETTA MARTINO PATIENT TRANSPORT ORDERLY Ot 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 12/01/2016 LORETTA MARTINO PATIENT TRANSPORT ORDERLY Ot I89.0 LYMPHEDEMA, NOT ELSEWHERE CLASSIFIED 12/01/2016 LORETTA MARTINO PATIENT TRANSPORT ORDERLY Ot L97.512 NON-PRS CHRONIC ULCER OTH PRT RIGHT FOOT 12/01/2016 LORETTA MARTINO PATIENT TRANSPORT ORDERLY Ot N18.6 END STAGE RENAL DISEASE 12/01/2016 LORETTA MARTINO PATIENT TRANSPORT ORDERLY Ot E11.621 TYPE 2 DIABETES MELLITUS WITH FOOT ULCER 12/01/2016 LORETTA MARTINO APRN Ot 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 12/01/2016 LORETTA MARTINO PATIENT TRANSPORT ORDERLY Ot I89.0 LYMPHEDEMA, NOT ELSEWHERE CLASSIFIED 12/01/2016 LORETTA MARTINO PATIENT TRANSPORT ORDERLY Ot L97.512 NON-PRS CHRONIC ULCER OTH PRT RIGHT FOOT 12/01/2016 LORETTA MARTINO PATIENT TRANSPORT ORDERLY Ot N18.6 END STAGE RENAL DISEASE 12/04/2016 PIETER POOLE MD Ot E11.621 TYPE 2 DIABETES MELLITUS WITH FOOT ULCER 12/04/2016 PIETER POOLE MD Ot 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 12/04/2016 PIETER POOLE MD Ot 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 12/05/2016 LORETTA MARTINO PATIENT TRANSPORT ORDERLY Ot E11.621 TYPE 2 DIABETES MELLITUS WITH FOOT ULCER 12/05/2016 LORETTA MARTINO PATIENT TRANSPORT ORDERLY Ot 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 12/05/2016 LORETTA MARTINO PATIENT TRANSPORT ORDERLY Ot I89.0 LYMPHEDEMA, NOT ELSEWHERE CLASSIFIED 12/05/2016 LORETTA MARTINO PATIENT TRANSPORT ORDERLY Ot L97.512 NON-PRS CHRONIC ULCER OTH PRT RIGHT FOOT 12/05/2016 LORETTA MARTINO PATIENT TRANSPORT ORDERLY Ot N18.6 END STAGE RENAL DISEASE 12/07/2016 PIETER POOLE MD Ot E11.621 TYPE 2 DIABETES MELLITUS WITH FOOT ULCER 12/07/2016 PIETER POOLE MD Ot 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 12/07/2016 PIETER POOLE MD Ot 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 12/07/2016 LORETTA MARTINO PATIENT TRANSPORT ORDERLY Ot E11.621 TYPE 2 DIABETES MELLITUS WITH FOOT ULCER 12/07/2016 LORETTA MARTINO PATIENT TRANSPORT ORDERLY Ot 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 12/07/2016 LORETTA MARTINO PATIENT TRANSPORT ORDERLY Ot I89.0 LYMPHEDEMA, NOT ELSEWHERE CLASSIFIED 12/07/2016 LORETTA MARTINO PATIENT TRANSPORT ORDERLY Ot L97.211 NON-PRS CHRONIC ULCER OF RIGHT [place] 12/07/2016 LORETTA MARTINO PATIENT TRANSPORT ORDERLY Ot 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 12/07/2016 LORETTA MARTINO PATIENT TRANSPORT ORDERLY Ot L97.512 NON-PRS CHRONIC ULCER OTH PRT RIGHT FOOT 12/12/2016 LORETTA MARTINO PATIENT TRANSPORT ORDERLY Ot E11.621 TYPE 2 DIABETES MELLITUS WITH FOOT ULCER 12/12/2016 LORETTA MARTINO PATIENT TRANSPORT ORDERLY Ot 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 12/12/2016 LORETTA MARTINO PATIENT TRANSPORT ORDERLY Ot I89.0 LYMPHEDEMA, NOT ELSEWHERE CLASSIFIED 12/12/2016 LORETTA MARTINO PATIENT TRANSPORT ORDERLY Ot L97.512 NON-PRS CHRONIC ULCER OTH PRT RIGHT FOOT 12/12/2016 LORETTA MARTINO PATIENT TRANSPORT ORDERLY Ot N18.6 END STAGE RENAL DISEASE 12/13/2016 LORETTA MARTINO PATIENT TRANSPORT ORDERLY Ot E11.621 TYPE 2 DIABETES MELLITUS WITH FOOT ULCER 12/13/2016 LORETTA MARTINO PATIENT TRANSPORT ORDERLY Ot 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 12/13/2016 LORETTA MARTINO R PATIENT TRANSPORT ORDERLY Ot I89.0 LYMPHEDEMA, NOT ELSEWHERE CLASSIFIED 12/13/2016 LORETTA MARTINO R PATIENT TRANSPORT ORDERLY Ot L97.512 NON-PRS CHRONIC ULCER OTH PRT RIGHT FOOT 12/13/2016 LORETTA MARTINO PATIENT TRANSPORT ORDERLY Ot N18.6 END STAGE RENAL DISEASE 12/14/2016 LORETTA MARTINO PATIENT TRANSPORT ORDERLY Ot E11.621 TYPE 2 DIABETES MELLITUS WITH FOOT ULCER 12/14/2016 LORETTA MARTINO PATIENT TRANSPORT ORDERLY Ot 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 12/14/2016 LORETTA MARTINO PATIENT TRANSPORT ORDERLY Ot I89.0 LYMPHEDEMA, NOT ELSEWHERE CLASSIFIED 12/14/2016 LORETTA MARTINO PATIENT TRANSPORT ORDERLY Ot L97.211 NON-PRS CHRONIC ULCER OF RIGHT [place] 12/14/2016 LORETTA MARTINO PATIENT TRANSPORT ORDERLY Ot 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 12/14/2016 LORETTA MARTINO PATIENT TRANSPORT ORDERLY Ot L97.512 NON-PRS CHRONIC ULCER OTH PRT RIGHT FOOT 12/14/2016 LORETTA MARTINO PATIENT TRANSPORT ORDERLY Ot E11.621 TYPE 2 DIABETES MELLITUS WITH FOOT ULCER 12/14/2016 LORETTA MARTINO PATIENT TRANSPORT ORDERLY Ot E66.01 MORBID (SEVERE) OBESITY DUE TO EXCESS CA 12/14/2016 LORETTA MARTINO PATIENT TRANSPORT ORDERLY Ot I50.20 UNSPECIFIED SYSTOLIC (CONGESTIVE) HEART 12/14/2016 LORETTA MARTINO PATIENT TRANSPORT ORDERLY Ot 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 12/14/2016 LORETTA MARTINO PATIENT TRANSPORT ORDERLY Ot I89.0 LYMPHEDEMA, NOT ELSEWHERE CLASSIFIED 12/14/2016 LORETTA MARTINO PATIENT TRANSPORT ORDERLY Ot L03.115 CELLULITIS OF RIGHT LOWER LIMB 12/14/2016 LORETTA MARTINO PATIENT TRANSPORT ORDERLY Ot L97.211 NON-PRS CHRONIC ULCER OF RIGHT [place] 12/14/2016 LORETTA MARTINO PATIENT TRANSPORT ORDERLY Ot 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 12/14/2016 LORETTA MARTINO PATIENT TRANSPORT ORDERLY Ot L97.512 NON-PRS CHRONIC ULCER OTH PRT RIGHT FOOT 12/14/2016 LORETTA MARTINO PATIENT TRANSPORT ORDERLY Ot N18.6 END STAGE RENAL DISEASE 12/14/2016 LORETTA MARTINO PATIENT TRANSPORT ORDERLY Ot Z68.43 BODY MASS INDEX (BMI) 50-59.9 , ADULT 12/24/2016 LORETTA MARTINO PATIENT TRANSPORT ORDERLY Ot L03.115 CELLULITIS OF RIGHT LOWER LIMB 12/24/2016 LORETTA MARTINO PATIENT TRANSPORT ORDERLY Ot 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 12/24/2016 LORETTA MARTINO PATIENT TRANSPORT ORDERLY Ot Z45.2 ENCOUNTER FOR ADJUSTMENT AND MANAGEMENT 12/24/2016 LORETTA MARTINO PATIENT TRANSPORT ORDERLY Ot E11.621 TYPE 2 DIABETES MELLITUS WITH FOOT ULCER 12/24/2016 LORETTA MARTINO PATIENT TRANSPORT ORDERLY Ot 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 12/24/2016 LORETTA MARTINO PATIENT TRANSPORT ORDERLY Ot I89.0 LYMPHEDEMA, NOT ELSEWHERE CLASSIFIED 12/24/2016 LORETTA MARTINO PATIENT TRANSPORT ORDERLY Ot L97.512 NON-PRS CHRONIC ULCER OTH PRT RIGHT FOOT 12/24/2016 LORETTA MARTINO PATIENT TRANSPORT ORDERLY Ot N18.6 END STAGE RENAL DISEASE 12/25/2016 LORETTA MARTINO PATIENT TRANSPORT ORDERLY Ot E11.621 TYPE 2 DIABETES MELLITUS WITH FOOT ULCER 12/25/2016 LORETTA MARTINO PATIENT TRANSPORT ORDERLY Ot 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 12/25/2016 LORETTA MARTINO PATIENT TRANSPORT ORDERLY Ot I89.0 LYMPHEDEMA, NOT ELSEWHERE CLASSIFIED 12/25/2016 LORETTA MARTINO PATIENT TRANSPORT ORDERLY Ot L97.211 NON-PRS CHRONIC ULCER OF RIGHT [place] 12/25/2016 LORETTA MARTINO PATIENT TRANSPORT ORDERLY Ot 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 12/25/2016 LORETTA MARTINO PATIENT TRANSPORT ORDERLY Ot L97.512 NON-PRS CHRONIC ULCER OTH PRT RIGHT FOOT 12/26/2016 LORETTA MARTINO PATIENT TRANSPORT ORDERLY Ot E11.621 TYPE 2 DIABETES MELLITUS WITH FOOT ULCER 12/26/2016 LORETTA MARTINO PATIENT TRANSPORT ORDERLY Ot 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 12/26/2016 LORETTA MARTINO PATIENT TRANSPORT ORDERLY Ot I89.0 LYMPHEDEMA, NOT ELSEWHERE CLASSIFIED 12/26/2016 LORETTA MARTINO PATIENT TRANSPORT ORDERLY Ot L97.512 NON-PRS CHRONIC ULCER OTH PRT RIGHT FOOT 12/26/2016 LORETTA MARTINO PATIENT TRANSPORT ORDERLY Ot N18.6 END STAGE RENAL DISEASE 12/28/2016 LORETTA MARTINO PATIENT TRANSPORT ORDERLY Ot E11.621 TYPE 2 DIABETES MELLITUS WITH FOOT ULCER 12/28/2016 LORETTA MARTINO PATIENT TRANSPORT ORDERLY Ot 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 12/28/2016 LORETTA MARTINO PATIENT TRANSPORT ORDERLY Ot I89.0 LYMPHEDEMA, NOT ELSEWHERE CLASSIFIED 12/28/2016 LORETTA MARTINO PATIENT TRANSPORT ORDERLY Ot L97.512 NON-PRS CHRONIC ULCER OTH PRT RIGHT FOOT 12/28/2016 LORETTA MARTINO PATIENT TRANSPORT ORDERLY Ot N18.6 END STAGE RENAL DISEASE 12/30/2016 LORETTA MARTINO PATIENT TRANSPORT ORDERLY Ot L03.115 CELLULITIS OF RIGHT LOWER LIMB 12/30/2016 LORETTA MARTINO PATIENT TRANSPORT ORDERLY Ot 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 12/30/2016 LORETTA MARTINO PATIENT TRANSPORT ORDERLY Ot Z45.2 ENCOUNTER FOR ADJUSTMENT AND MANAGEMENT 12/31/2016 LORETTA MARTINO PATIENT TRANSPORT ORDERLY Ot 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 12/31/2016 LORETTA MARTINO PATIENT TRANSPORT ORDERLY Ot E11.621 TYPE 2 DIABETES MELLITUS WITH FOOT ULCER 12/31/2016 LORETTA MARTINO PATIENT TRANSPORT ORDERLY Ot 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 12/31/2016 LORETTA MARTINO PATIENT TRANSPORT ORDERLY Ot I89.0 LYMPHEDEMA, NOT ELSEWHERE CLASSIFIED 12/31/2016 LORETTA MARTINO PATIENT TRANSPORT ORDERLY Ot L97.512 NON-PRS CHRONIC ULCER OTH PRT RIGHT FOOT 12/31/2016 LORETTA MARTINO PATIENT TRANSPORT ORDERLY Ot N18.6 END STAGE RENAL DISEASE 12/31/2016 LORETTA MARTINO PATIENT TRANSPORT ORDERLY Ot E11.621 TYPE 2 DIABETES MELLITUS WITH FOOT ULCER 12/31/2016 LORETTA MARTINO PATIENT TRANSPORT ORDERLY Ot 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 12/31/2016 LORETTA MARTINO PATIENT TRANSPORT ORDERLY Ot I89.0 LYMPHEDEMA, NOT ELSEWHERE CLASSIFIED 12/31/2016 LORETTA MARTINO PATIENT TRANSPORT ORDERLY Ot L97.211 NON-PRS CHRONIC ULCER OF RIGHT [place] 12/31/2016 LORETTA MARTINO PATIENT TRANSPORT ORDERLY Ot 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 12/31/2016 LORETTA MARTINO PATIENT TRANSPORT ORDERLY Ot L97.512 NON-PRS CHRONIC ULCER OTH PRT RIGHT FOOT 01/02/2017 LORETTA MARTINO PATIENT TRANSPORT ORDERLY Ot E11.621 TYPE 2 DIABETES MELLITUS WITH FOOT ULCER 01/02/2017 LORETTA MARTINO PATIENT TRANSPORT ORDERLY Ot 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 01/02/2017 LORETTA MARTINO PATIENT TRANSPORT ORDERLY Ot I89.0 LYMPHEDEMA, NOT ELSEWHERE CLASSIFIED 01/02/2017 LORETTA MARTINO PATIENT TRANSPORT ORDERLY Ot L97.512 NON-PRS CHRONIC ULCER OTH PRT RIGHT FOOT 01/03/2017 LORETTA MARTINO R PATIENT TRANSPORT ORDERLY Ot E11.621 TYPE 2 DIABETES MELLITUS WITH FOOT ULCER 01/03/2017 GUNNERLORETTA R PATIENT TRANSPORT ORDERLY Ot 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 01/03/2017 LORETTA MARTINO PATIENT TRANSPORT ORDERLY Ot I89.0 LYMPHEDEMA, NOT ELSEWHERE CLASSIFIED 01/03/2017 LORETTA MARTINO PATIENT TRANSPORT ORDERLY Ot L97.512 NON-PRS CHRONIC ULCER OTH PRT RIGHT FOOT 01/08/2017 LORETTA MARTINO R PATIENT TRANSPORT ORDERLY Ot E11.621 TYPE 2 DIABETES MELLITUS WITH FOOT ULCER 01/08/2017 GUNNERLORETTA R PATIENT TRANSPORT ORDERLY Ot 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 01/08/2017 GUNNERLORETTA R PATIENT TRANSPORT ORDERLY Ot I89.0 LYMPHEDEMA, NOT ELSEWHERE CLASSIFIED 01/08/2017 LORETTA MARTINO PATIENT TRANSPORT ORDERLY Ot L97.512 NON-PRS CHRONIC ULCER OTH PRT RIGHT FOOT 01/10/2017 LORETTA MARTINO R PATIENT TRANSPORT ORDERLY Ot E11.621 TYPE 2 DIABETES MELLITUS WITH FOOT ULCER 01/10/2017 LORETTA MARTINO R PATIENT TRANSPORT ORDERLY Ot 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 01/10/2017 GUNNERLORETTA R PATIENT TRANSPORT ORDERLY Ot I89.0 LYMPHEDEMA, NOT ELSEWHERE CLASSIFIED 01/10/2017 LORETTA MARTINO R PATIENT TRANSPORT ORDERLY Ot L97.512 NON-PRS CHRONIC ULCER OTH PRT RIGHT FOOT 01/10/2017 LORETTA MARTINO R PATIENT TRANSPORT ORDERLY Ot N18.6 END STAGE RENAL DISEASE 01/11/2017 LORETTA MARTINO R PATIENT TRANSPORT ORDERLY Ot E11.621 TYPE 2 DIABETES MELLITUS WITH FOOT ULCER 01/11/2017 LORETTA MARTINO R PATIENT TRANSPORT ORDERLY Ot 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 01/11/2017 LORETTA MARTINO R PATIENT TRANSPORT ORDERLY Ot I89.0 LYMPHEDEMA, NOT ELSEWHERE CLASSIFIED 01/11/2017 LORETTA MARTINO R PATIENT TRANSPORT ORDERLY Ot L97.512 NON-PRS CHRONIC ULCER OTH PRT RIGHT FOOT 01/11/2017 LORETTA MARTINO R PATIENT TRANSPORT ORDERLY Ot N18.6 END STAGE RENAL DISEASE 01/16/2017 ALDA FERRARO ADMISSIONS SUPERVISOR Ot I25.10 ATHSCL HEART DISEASE OF [place] CORONARY 01/16/2017 ALDA FERRARO ADMISSIONS SUPERVISOR Ot I50.32 CHRONIC DIASTOLIC (CONGESTIVE) HEART ОЛЬГА 01/16/2017 ALDA FERRARO ADMISSIONS SUPERVISOR Ot I73.89 OTHER SPECIFIED PERIPHERAL VASCULAR DISE 01/16/2017 ALDA FERRARO ADMISSIONS SUPERVISOR Ot N18.5 CHRONIC KIDNEY DISEASE, STAGE 5 01/16/2017 LORETTA MARTINO PATIENT TRANSPORT ORDERLY Ot 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 01/16/2017 LORETTA MARTINO PATIENT TRANSPORT ORDERLY Ot E11.621 TYPE 2 DIABETES MELLITUS WITH FOOT ULCER 01/16/2017 GUNNERLORETTA R PATIENT TRANSPORT ORDERLY Ot 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 01/16/2017 GUNNERPRAVEENAN R PATIENT TRANSPORT ORDERLY Ot I89.0 LYMPHEDEMA, NOT ELSEWHERE CLASSIFIED 01/16/2017 LORETTA MARTINO R PATIENT TRANSPORT ORDERLY Ot L97.512 NON-PRS CHRONIC ULCER OTH PRT RIGHT FOOT 01/16/2017 LORETTA MARTINO PATIENT TRANSPORT ORDERLY Ot N18.6 END STAGE RENAL DISEASE 01/18/2017 LORETTA MARTINO PATIENT TRANSPORT ORDERLY Ot E11.621 TYPE 2 DIABETES MELLITUS WITH FOOT ULCER 01/18/2017 GUNNERLORETTA R PATIENT TRANSPORT ORDERLY Ot 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 01/18/2017 GUNNERLORETTA R PATIENT TRANSPORT ORDERLY Ot I89.0 LYMPHEDEMA, NOT ELSEWHERE CLASSIFIED 01/18/2017 LORETTA MARTINO PATIENT TRANSPORT ORDERLY Ot L97.512 NON-PRS CHRONIC ULCER OTH PRT RIGHT FOOT 01/22/2017 LORETTA MARTINO R PATIENT TRANSPORT ORDERLY Ot 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 01/22/2017 LORETTA MARTINO PATIENT TRANSPORT ORDERLY Ot E11.621 TYPE 2 DIABETES MELLITUS WITH FOOT ULCER 01/22/2017 LORETTA MARTINO R PATIENT TRANSPORT ORDERLY Ot 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 01/22/2017 LORETTA MARITNO R PATIENT TRANSPORT ORDERLY Ot I89.0 LYMPHEDEMA, NOT ELSEWHERE CLASSIFIED 01/22/2017 LORETTA MARTINO R PATIENT TRANSPORT ORDERLY Ot L97.512 NON-PRS CHRONIC ULCER OTH PRT RIGHT FOOT 01/22/2017 LORETTA MARTINO PATIENT TRANSPORT ORDERLY Ot N18.6 END STAGE RENAL DISEASE 01/24/2017 LORETTA MARTINO PATIENT TRANSPORT ORDERLY Ot E11.621 TYPE 2 DIABETES MELLITUS WITH FOOT ULCER 01/24/2017 LORETTA MARTINO PATIENT TRANSPORT ORDERLY Ot 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 01/24/2017 LORETTA MARTINO PATIENT TRANSPORT ORDERLY Ot I89.0 LYMPHEDEMA, NOT ELSEWHERE CLASSIFIED 01/24/2017 LORETTA MARTINO PATIENT TRANSPORT ORDERLY Ot L97.512 NON-PRS CHRONIC ULCER OTH PRT RIGHT FOOT 01/24/2017 LORETTA MARTINO PATIENT TRANSPORT ORDERLY Ot N18.6 END STAGE RENAL DISEASE 01/31/2017 LORETTA MARTINO PATIENT TRANSPORT ORDERLY Ot E11.621 TYPE 2 DIABETES MELLITUS WITH FOOT ULCER 01/31/2017 LORETTA MARTINO PATIENT TRANSPORT ORDERLY Ot 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 01/31/2017 LORETTA MARTINO PATIENT TRANSPORT ORDERLY Ot I89.0 LYMPHEDEMA, NOT ELSEWHERE CLASSIFIED 01/31/2017 LORETTA MARTINO PATIENT TRANSPORT ORDERLY Ot L97.512 NON-PRS CHRONIC ULCER OTH PRT RIGHT FOOT 01/31/2017 LORETTA MARTINO PATIENT TRANSPORT ORDERLY Ot N18.6 END STAGE RENAL DISEASE 02/05/2017 LORETTA MARTINO PATIENT TRANSPORT ORDERLY Ot E11.621 TYPE 2 DIABETES MELLITUS WITH FOOT ULCER 02/05/2017 LORETTA MARTINO PATIENT TRANSPORT ORDERLY Ot 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 02/05/2017 LORETTA MARTINO PATIENT TRANSPORT ORDERLY Ot I89.0 LYMPHEDEMA, NOT ELSEWHERE CLASSIFIED 02/05/2017 LORETTA MARTINO PATIENT TRANSPORT ORDERLY Ot L97.512 NON-PRS CHRONIC ULCER OTH PRT RIGHT FOOT 02/05/2017 LORETTA MARTINO PATIENT TRANSPORT ORDERLY Ot N18.6 END STAGE RENAL DISEASE 02/05/2017 LORETTA MARTINO PATIENT TRANSPORT ORDERLY Ot E11.621 TYPE 2 DIABETES MELLITUS WITH FOOT ULCER 02/05/2017 LORETTA MARTINO PATIENT TRANSPORT ORDERLY Ot 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 02/05/2017 LORETTA MARTINO PATIENT TRANSPORT ORDERLY Ot I89.0 LYMPHEDEMA, NOT ELSEWHERE CLASSIFIED 02/05/2017 LORETTA MARTINO PATIENT TRANSPORT ORDERLY Ot L97.512 NON-PRS CHRONIC ULCER OTH PRT RIGHT FOOT 02/06/2017 ALDA FERRRAO ADMISSIONS SUPERVISOR Ot I25.10 ATHSCL HEART DISEASE OF [place] CORONARY 02/06/2017 ALDA FERRARO ADMISSIONS SUPERVISOR Ot I50.32 CHRONIC DIASTOLIC (CONGESTIVE) HEART ОЛЬГА 02/06/2017 ALDA FERRARO ADMISSIONS SUPERVISOR Ot I73.89 OTHER SPECIFIED PERIPHERAL VASCULAR DISE 02/06/2017 ALDA FERRARO ADMISSIONS SUPERVISOR Ot N18.5 CHRONIC KIDNEY DISEASE, STAGE 5 02/08/2017 ALDA FERRARO ADMISSIONS SUPERVISOR Ot I25.10 ATHSCL HEART DISEASE OF [place] CORONARY 02/08/2017 ALDA FERRARO ADMISSIONS SUPERVISOR Ot I50.32 CHRONIC DIASTOLIC (CONGESTIVE) HEART ОЛЬГА 02/08/2017 ALDA FERRARO ADMISSIONS SUPERVISOR Ot I73.89 OTHER SPECIFIED PERIPHERAL VASCULAR DISE 02/08/2017 ALDA FERRARO ADMISSIONS SUPERVISOR Ot N18.5 CHRONIC KIDNEY DISEASE, STAGE 5 02/11/2017 LORETTA MARTINO PATIENT TRANSPORT ORDERLY Ot E11.621 TYPE 2 DIABETES MELLITUS WITH FOOT ULCER 02/11/2017 LORETTA MARTINO PATIENT TRANSPORT ORDERLY Ot 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 02/11/2017 LORETTA MARTINO PATIENT TRANSPORT ORDERLY Ot I89.0 LYMPHEDEMA, NOT ELSEWHERE CLASSIFIED 02/11/2017 LORETTA MARTINO PATIENT TRANSPORT ORDERLY Ot L97.512 NON-PRS CHRONIC ULCER OTH PRT RIGHT FOOT 02/12/2017 LORETTA MARTINO PATIENT TRANSPORT ORDERLY Ot E11.621 TYPE 2 DIABETES MELLITUS WITH FOOT ULCER 02/12/2017 LORETTA MARTINO PATIENT TRANSPORT ORDERLY Ot 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 02/12/2017 LORETTA MARTINO PATIENT TRANSPORT ORDERLY Ot I89.0 LYMPHEDEMA, NOT ELSEWHERE CLASSIFIED 02/12/2017 LORETTA MARTINO PATIENT TRANSPORT ORDERLY Ot L97.512 NON-PRS CHRONIC ULCER OTH PRT RIGHT FOOT 02/15/2017 LORETTA MARTINO PATIENT TRANSPORT ORDERLY Ot E11.621 TYPE 2 DIABETES MELLITUS WITH FOOT ULCER 02/15/2017 LORETTA MARTINO PATIENT TRANSPORT ORDERLY Ot E66.01 MORBID (SEVERE) OBESITY DUE TO EXCESS CA 02/15/2017 LORETTA MARTINO PATIENT TRANSPORT ORDERLY Ot I50.20 UNSPECIFIED SYSTOLIC (CONGESTIVE) HEART 02/15/2017 LORETTA MARTINO PATIENT TRANSPORT ORDERLY Ot 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 02/15/2017 LORETTA MARTINO PATIENT TRANSPORT ORDERLY Ot I89.0 LYMPHEDEMA, NOT ELSEWHERE CLASSIFIED 02/15/2017 LORETTA MARTINO PATIENT TRANSPORT ORDERLY Ot L97.512 NON-PRS CHRONIC ULCER OTH PRT RIGHT FOOT 02/15/2017 LORETTA MARTINO PATIENT TRANSPORT ORDERLY Ot N18.6 END STAGE RENAL DISEASE 02/15/2017 GUNNER LORETTA Chakraborty PATIENT TRANSPORT ORDERLY Ot S90.931A UNSP SUPERFICIAL INJURY OF RIGHT GREAT T 02/15/2017 GUNNER LORETTA Chakraborty PATIENT TRANSPORT ORDERLY Ot Z68.43 BODY MASS INDEX (BMI) 50-59.9 , ADULT 02/19/2017 GUNNER LORETTA Chakraborty PATIENT TRANSPORT ORDERLY Ot E11.621 TYPE 2 DIABETES MELLITUS WITH FOOT ULCER 02/19/2017 LORETTA MARTINO PATIENT TRANSPORT ORDERLY Ot E66.01 MORBID (SEVERE) OBESITY DUE TO EXCESS CA 02/19/2017 LORETTA MARTINO PATIENT TRANSPORT ORDERLY Ot I50.20 UNSPECIFIED SYSTOLIC (CONGESTIVE) HEART 02/19/2017 LORETTA MARTINO PATIENT TRANSPORT ORDERLY Ot 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 02/19/2017 LORETTA MARTINO PATIENT TRANSPORT ORDERLY Ot I89.0 LYMPHEDEMA, NOT ELSEWHERE CLASSIFIED 02/19/2017 LORETTA MARTINO PATIENT TRANSPORT ORDERLY Ot L97.512 NON-PRS CHRONIC ULCER OTH PRT RIGHT FOOT 02/19/2017 LORETTA MARTINO PATIENT TRANSPORT ORDERLY Ot N18.6 END STAGE RENAL DISEASE 02/19/2017 LORETTA MARTINO PATIENT TRANSPORT ORDERLY Ot S90.931A UNSP SUPERFICIAL INJURY OF RIGHT GREAT T 02/19/2017 GUNNER LORETTA Chakraborty PATIENT TRANSPORT ORDERLY Ot Z68.43 BODY MASS INDEX (BMI) 50-59.9 , ADULT 02/20/2017 LORETTA MARTINO PATIENT TRANSPORT ORDERLY Ot E11.621 TYPE 2 DIABETES MELLITUS WITH FOOT ULCER 02/20/2017 LORETTA MARTINO PATIENT TRANSPORT ORDERLY Ot E66.01 MORBID (SEVERE) OBESITY DUE TO EXCESS CA 02/20/2017 LORETTA MARTINO PATIENT TRANSPORT ORDERLY Ot I50.20 UNSPECIFIED SYSTOLIC (CONGESTIVE) HEART 02/20/2017 LORETTA MARTINO PATIENT TRANSPORT ORDERLY Ot 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 02/20/2017 LORETTA MARTINO PATIENT TRANSPORT ORDERLY Ot 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 02/20/2017 LORETTA MARTINO PATIENT TRANSPORT ORDERLY Ot I89.0 LYMPHEDEMA, NOT ELSEWHERE CLASSIFIED 02/20/2017 LORETTA MARTINO PATIENT TRANSPORT ORDERLY Ot L97.512 NON-PRS CHRONIC ULCER OTH PRT RIGHT FOOT 02/20/2017 LORETTA MARTINO PATIENT TRANSPORT ORDERLY Ot N18.6 END STAGE RENAL DISEASE 02/26/2017 LORETTA MARTINO PATIENT TRANSPORT ORDERLY Ot E11.621 TYPE 2 DIABETES MELLITUS WITH FOOT ULCER 02/26/2017 LORETTA MARTINO PATIENT TRANSPORT ORDERLY Ot 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 02/26/2017 LORETTA MARTINO PATIENT TRANSPORT ORDERLY Ot I89.0 LYMPHEDEMA, NOT ELSEWHERE CLASSIFIED 02/26/2017 LROETTA MARTINO PATIENT TRANSPORT ORDERLY Ot L97.512 NON-PRS CHRONIC ULCER OTH PRT RIGHT FOOT 02/26/2017 LORETTA MARTINO PATIENT TRANSPORT ORDERLY Ot N18.6 END STAGE RENAL DISEASE 03/01/2017 LORETTA MARTINO PATIENT TRANSPORT ORDERLY Ot E11.621 TYPE 2 DIABETES MELLITUS WITH FOOT ULCER 03/01/2017 LORETTA MARTINO PATIENT TRANSPORT ORDERLY Ot E66.01 MORBID (SEVERE) OBESITY DUE TO EXCESS CA 03/01/2017 LORETTA MARTINO PATIENT TRANSPORT ORDERLY Ot I50.20 UNSPECIFIED SYSTOLIC (CONGESTIVE) HEART 03/01/2017 LORETTA MARTINO PATIENT TRANSPORT ORDERLY Ot 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 03/01/2017 LORETTA MARTINO PATIENT TRANSPORT ORDERLY Ot 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 03/01/2017 LORETTA MARTINO PATIENT TRANSPORT ORDERLY Ot I89.0 LYMPHEDEMA, NOT ELSEWHERE CLASSIFIED 03/01/2017 LORETTA MARTINO PATIENT TRANSPORT ORDERLY Ot L97.512 NON-PRS CHRONIC ULCER OTH PRT RIGHT FOOT 03/01/2017 LORETTA MARTINO PATIENT TRANSPORT ORDERLY Ot N18.6 END STAGE RENAL DISEASE 03/01/2017 LORETTA MARTINO PATIENT TRANSPORT ORDERLY Ot S90.931A UNSP SUPERFICIAL INJURY OF RIGHT GREAT T 03/06/2017 LORETTA MARTINO PATIENT TRANSPORT ORDERLY Ot E11.621 TYPE 2 DIABETES MELLITUS WITH FOOT ULCER 03/06/2017 LORETTA MARTINO PATIENT TRANSPORT ORDERLY Ot E66.01 MORBID (SEVERE) OBESITY DUE TO EXCESS CA 03/06/2017 LORETTA MARTINO PATIENT TRANSPORT ORDERLY Ot I50.20 UNSPECIFIED SYSTOLIC (CONGESTIVE) HEART 03/06/2017 LORETTA MARTINO PATIENT TRANSPORT ORDERLY Ot 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 03/06/2017 LORETTA MARTINO PATIENT TRANSPORT ORDERLY Ot 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 03/06/2017 LORETTA MARTINO PATIENT TRANSPORT ORDERLY Ot I89.0 LYMPHEDEMA, NOT ELSEWHERE CLASSIFIED 03/06/2017 LORETTA MARTINO PATIENT TRANSPORT ORDERLY Ot L97.512 NON-PRS CHRONIC ULCER OTH PRT RIGHT FOOT 03/06/2017 LORETTA MARTINO PATIENT TRANSPORT ORDERLY Ot N18.6 END STAGE RENAL DISEASE 03/06/2017 LORETTA MARTINO PATIENT TRANSPORT ORDERLY Ot S90.931A UNSP SUPERFICIAL INJURY OF RIGHT GREAT T 03/11/2017 LORETTA MARTINO PATIENT TRANSPORT ORDERLY Ot E11.621 TYPE 2 DIABETES MELLITUS WITH FOOT ULCER 03/11/2017 LORETTA MARTINO PATIENT TRANSPORT ORDERLY Ot E66.01 MORBID (SEVERE) OBESITY DUE TO EXCESS CA 03/11/2017 LORETTA MARTINO PATIENT TRANSPORT ORDERLY Ot I50.20 UNSPECIFIED SYSTOLIC (CONGESTIVE) HEART 03/11/2017 LORETTA MARTNIO PATIENT TRANSPORT ORDERLY Ot 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 03/11/2017 LORETTA MARTINO PATIENT TRANSPORT ORDERLY Ot 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 03/11/2017 LORETTA MARTINO PATIENT TRANSPORT ORDERLY Ot I89.0 LYMPHEDEMA, NOT ELSEWHERE CLASSIFIED 03/11/2017 LORETTA MARTINO PATIENT TRANSPORT ORDERLY Ot L97.512 NON-PRS CHRONIC ULCER OTH PRT RIGHT FOOT 03/11/2017 LORETTA MARTINO PATIENT TRANSPORT ORDERLY Ot N18.6 END STAGE RENAL DISEASE 03/12/2017 LORETTA MARTINO PATIENT TRANSPORT ORDERLY Ot E11.621 TYPE 2 DIABETES MELLITUS WITH FOOT ULCER 03/12/2017 LORETTA MARTINO PATIENT TRANSPORT ORDERLY Ot E66.01 MORBID (SEVERE) OBESITY DUE TO EXCESS CA 03/12/2017 LORETTA MARTINO PATIENT TRANSPORT ORDERLY Ot I50.20 UNSPECIFIED SYSTOLIC (CONGESTIVE) HEART 03/12/2017 LORETTA MARTINO PATIENT TRANSPORT ORDERLY Ot 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 03/12/2017 LORETTA MARTINO PATIENT TRANSPORT ORDERLY Ot 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 03/12/2017 LORETTA MARTINO PATIENT TRANSPORT ORDERLY Ot I89.0 LYMPHEDEMA, NOT ELSEWHERE CLASSIFIED 03/12/2017 LORETTA MARTINO PATIENT TRANSPORT ORDERLY Ot L97.512 NON-PRS CHRONIC ULCER OTH PRT RIGHT FOOT 03/12/2017 LORETTA MARTINO PATIENT TRANSPORT ORDERLY Ot N18.6 END STAGE RENAL DISEASE 03/18/2017 LORETTA MARTINO PATIENT TRANSPORT ORDERLY Ot E11.621 TYPE 2 DIABETES MELLITUS WITH FOOT ULCER 03/18/2017 LORETTA MARTINO PATIENT TRANSPORT ORDERLY Ot E66.01 MORBID (SEVERE) OBESITY DUE TO EXCESS CA 03/18/2017 LORETTA MARTINO PATIENT TRANSPORT ORDERLY Ot I50.20 UNSPECIFIED SYSTOLIC (CONGESTIVE) HEART 03/18/2017 LORETTA MARTINO PATIENT TRANSPORT ORDERLY Ot 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 03/18/2017 LORETTA MARTINO PATIENT TRANSPORT ORDERLY Ot I89.0 LYMPHEDEMA, NOT ELSEWHERE CLASSIFIED 03/18/2017 LORETTA MARTINO PATIENT TRANSPORT ORDERLY Ot L97.512 NON-PRS CHRONIC ULCER OTH PRT RIGHT FOOT 03/18/2017 LORETTA MARTINO PATIENT TRANSPORT ORDERLY Ot N18.6 END STAGE RENAL DISEASE 03/18/2017 LORETTA MARTINO PATIENT TRANSPORT ORDERLY Ot S90.931A UNSP SUPERFICIAL INJURY OF RIGHT GREAT T 03/18/2017 LORETTA MARTINO PATIENT TRANSPORT ORDERLY Ot Z68.43 BODY MASS INDEX (BMI) 50-59.9 , ADULT 03/22/2017 LROETTA MARTINO PATIENT TRANSPORT ORDERLY Ot E11.621 TYPE 2 DIABETES MELLITUS WITH FOOT ULCER 03/22/2017 LORETTA MARTINO PATIENT TRANSPORT ORDERLY Ot E66.01 MORBID (SEVERE) OBESITY DUE TO EXCESS CA 03/22/2017 LORETTA MARTINO PATIENT TRANSPORT ORDERLY Ot I50.20 UNSPECIFIED SYSTOLIC (CONGESTIVE) HEART 03/22/2017 LORETTA MARTINO PATIENT TRANSPORT ORDERLY Ot 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 03/22/2017 LORETTA MARTINO PATIENT TRANSPORT ORDERLY Ot 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 03/22/2017 LORETTA MARTINO PATIENT TRANSPORT ORDERLY Ot I89.0 LYMPHEDEMA, NOT ELSEWHERE CLASSIFIED 03/22/2017 LORETTA MARTINO PATIENT TRANSPORT ORDERLY Ot L97.512 NON-PRS CHRONIC ULCER OTH PRT RIGHT FOOT 03/22/2017 LORETTA MARTINO PATIENT TRANSPORT ORDERLY Ot N18.6 END STAGE RENAL DISEASE 03/22/2017 LORETTA MARTINO PATIENT TRANSPORT ORDERLY Ot S90.931A UNSP SUPERFICIAL INJURY OF RIGHT GREAT T 03/27/2017 LORETTA MARTINO PATIENT TRANSPORT ORDERLY Ot E11.621 TYPE 2 DIABETES MELLITUS WITH FOOT ULCER 03/27/2017 LORETTA MARTINO PATIENT TRANSPORT ORDERLY Ot E66.01 MORBID (SEVERE) OBESITY DUE TO EXCESS CA 03/27/2017 LORETTA MARTINO PATIENT TRANSPORT ORDERLY Ot I50.20 UNSPECIFIED SYSTOLIC (CONGESTIVE) HEART 03/27/2017 LORETTA MARTINO PATIENT TRANSPORT ORDERLY Ot 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 03/27/2017 LORETTA MARTINO PATIENT TRANSPORT ORDERLY Ot I89.0 LYMPHEDEMA, NOT ELSEWHERE CLASSIFIED 03/27/2017 LORETTA MARTINO PATIENT TRANSPORT ORDERLY Ot L97.512 NON-PRS CHRONIC ULCER OTH PRT RIGHT FOOT 03/27/2017 LORETTA MARTINO PATIENT TRANSPORT ORDERLY Ot N18.6 END STAGE RENAL DISEASE 03/27/2017 LORETTA MARTINO PATIENT TRANSPORT ORDERLY Ot S90.931A UNSP SUPERFICIAL INJURY OF RIGHT GREAT T 03/27/2017 LORETTA MARTINO PATIENT TRANSPORT ORDERLY Ot Z68.43 BODY MASS INDEX (BMI) 50-59.9 , ADULT 03/27/2017 LORETTA MARTINO PATIENT TRANSPORT ORDERLY Ot E11.621 TYPE 2 DIABETES MELLITUS WITH FOOT ULCER 03/27/2017 LORETTA MARTINO PATIENT TRANSPORT ORDERLY Ot E66.01 MORBID (SEVERE) OBESITY DUE TO EXCESS CA 03/27/2017 LORETTA MARTINO PATIENT TRANSPORT ORDERLY Ot I50.20 UNSPECIFIED SYSTOLIC (CONGESTIVE) HEART 03/27/2017 LORETTA MARTINO PATIENT TRANSPORT ORDERLY Ot 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 03/27/2017 LORETTA MARTINO PATIENT TRANSPORT ORDERLY Ot 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 03/27/2017 LORETTA MARTINO PATIENT TRANSPORT ORDERLY Ot I89.0 LYMPHEDEMA, NOT ELSEWHERE CLASSIFIED 03/27/2017 LORETTA MARTINO PATIENT TRANSPORT ORDERLY Ot L97.511 NON-PRS CHRONIC ULCER OTH PRT R FOOT MARSH 03/27/2017 LORETTA MARTINO PATIENT TRANSPORT ORDERLY Ot N18.6 END STAGE RENAL DISEASE 03/27/2017 LORETTA MARTINO PATIENT TRANSPORT ORDERLY Ot S90.931A UNSP SUPERFICIAL INJURY OF RIGHT GREAT T 03/28/2017 LORETTA MARTINO PATIENT TRANSPORT ORDERLY Ot E11.621 TYPE 2 DIABETES MELLITUS WITH FOOT ULCER 03/28/2017 LORETTA MARTINO PATIENT TRANSPORT ORDERLY Ot 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 03/28/2017 LORETTA MARTINO PATIENT TRANSPORT ORDERLY Ot I89.0 LYMPHEDEMA, NOT ELSEWHERE CLASSIFIED 03/28/2017 LORETTA MARTINO PATIENT TRANSPORT ORDERLY Ot L97.512 NON-PRS CHRONIC ULCER OTH PRT RIGHT FOOT 03/29/2017 LORETTA MARTINO PATIENT TRANSPORT ORDERLY Ot E11.621 TYPE 2 DIABETES MELLITUS WITH FOOT ULCER 03/29/2017 LORETTA MARTINO PATIENT TRANSPORT ORDERLY Ot E66.01 MORBID (SEVERE) OBESITY DUE TO EXCESS CA 03/29/2017 LORETTA MARTINO PATIENT TRANSPORT ORDERLY Ot I50.20 UNSPECIFIED SYSTOLIC (CONGESTIVE) HEART 03/29/2017 LORETTA MARTINO PATIENT TRANSPORT ORDERLY Ot 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 03/29/2017 LORETTA MARTINO PATIENT TRANSPORT ORDERLY Ot 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 03/29/2017 LORETTA MARTINO PATIENT TRANSPORT ORDERLY Ot I89.0 LYMPHEDEMA, NOT ELSEWHERE CLASSIFIED 03/29/2017 LORETTA MARTINO PATIENT TRANSPORT ORDERLY Ot L97.512 NON-PRS CHRONIC ULCER OTH PRT RIGHT FOOT 03/29/2017 LORETTA MARTINO APRN Ot N18.6 END STAGE RENAL DISEASE 03/29/2017 LORETTA MARTINO PATIENT TRANSPORT ORDERLY Ot S90.931A UNSP SUPERFICIAL INJURY OF RIGHT GREAT T 04/03/2017 LORETTA MARTINO PATIENT TRANSPORT ORDERLY Ot E11.621 TYPE 2 DIABETES MELLITUS WITH FOOT ULCER 04/03/2017 LORETTA MARTINO PATIENT TRANSPORT ORDERLY Ot 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 04/03/2017 LORETTA MARTINO PATIENT TRANSPORT ORDERLY Ot I89.0 LYMPHEDEMA, NOT ELSEWHERE CLASSIFIED 04/03/2017 LORETTA MARTINO PATIENT TRANSPORT ORDERLY Ot L97.512 NON-PRS CHRONIC ULCER OTH PRT RIGHT FOOT 04/04/2017 LORETTA MARTINO PATIENT TRANSPORT ORDERLY Ot E11.621 TYPE 2 DIABETES MELLITUS WITH FOOT ULCER 04/04/2017 LORETTA MARTINO PATIENT TRANSPORT ORDERLY Ot 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 04/04/2017 LORETTA MARTINO PATIENT TRANSPORT ORDERLY Ot I89.0 LYMPHEDEMA, NOT ELSEWHERE CLASSIFIED 04/04/2017 LORETTA MARTINO PATIENT TRANSPORT ORDERLY Ot L97.511 NON-PRS CHRONIC ULCER OTH PRT R FOOT MARSH 04/12/2017 LORETTA MARTINO PATIENT TRANSPORT ORDERLY Ot E11.621 TYPE 2 DIABETES MELLITUS WITH FOOT ULCER 04/12/2017 LORETTA MARTINO PATIENT TRANSPORT ORDERLY Ot 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 04/12/2017 LORETTA MARTINO PATIENT TRANSPORT ORDERLY Ot I89.0 LYMPHEDEMA, NOT ELSEWHERE CLASSIFIED 04/12/2017 LORETTA MARTINO PATIENT TRANSPORT ORDERLY Ot L97.511 NON-PRS CHRONIC ULCER OTH PRT R FOOT MARSH 04/16/2017 LORETTA MARTINO PATIENT TRANSPORT ORDERLY Ot E11.621 TYPE 2 DIABETES MELLITUS WITH FOOT ULCER 04/16/2017 LORETTA MARTINO PATIENT TRANSPORT ORDERLY Ot E66.01 MORBID (SEVERE) OBESITY DUE TO EXCESS CA 04/16/2017 LORETTA MARTINO PATIENT TRANSPORT ORDERLY Ot I50.20 UNSPECIFIED SYSTOLIC (CONGESTIVE) HEART 04/16/2017 LORETTA MARTINO PATIENT TRANSPORT ORDERLY Ot 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 04/16/2017 LORETTA MARTINO PATIENT TRANSPORT ORDERLY Ot 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 04/16/2017 LORETTA MARTINO PATIENT TRANSPORT ORDERLY Ot I89.0 LYMPHEDEMA, NOT ELSEWHERE CLASSIFIED 04/16/2017 LORETTA MARTINO PATIENT TRANSPORT ORDERLY Ot L97.511 NON-PRS CHRONIC ULCER OTH PRT R FOOT MARSH 04/16/2017 LORETTA MARTINO R PATIENT TRANSPORT ORDERLY Ot N18.6 END STAGE RENAL DISEASE 04/16/2017 LORETTA MARTINO PATIENT TRANSPORT ORDERLY Ot S90.931A UNSP SUPERFICIAL INJURY OF RIGHT GREAT T 04/18/2017 LORETTA MARTINO PATIENT TRANSPORT ORDERLY Ot E11.621 TYPE 2 DIABETES MELLITUS WITH FOOT ULCER 04/18/2017 LORETTA MARTINO PATIENT TRANSPORT ORDERLY Ot E66.01 MORBID (SEVERE) OBESITY DUE TO EXCESS CA 04/18/2017 LORETTA MARTINO PATIENT TRANSPORT ORDERLY Ot I50.20 UNSPECIFIED SYSTOLIC (CONGESTIVE) HEART 04/18/2017 LORETTA MARTINO PATIENT TRANSPORT ORDERLY Ot 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 04/18/2017 LORETTA MARTINO PATIENT TRANSPORT ORDERLY Ot 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 04/18/2017 LORETTA MARTINO PATIENT TRANSPORT ORDERLY Ot I89.0 LYMPHEDEMA, NOT ELSEWHERE CLASSIFIED 04/18/2017 LORETTA MARTINO PATIENT TRANSPORT ORDERLY Ot L97.511 NON-PRS CHRONIC ULCER OTH PRT R FOOT MARSH 04/18/2017 LORETTA MARTINO R PATIENT TRANSPORT ORDERLY Ot N18.6 END STAGE RENAL DISEASE 04/18/2017 LORETTA MARTINO PATIENT TRANSPORT ORDERLY Ot S90.931A UNSP SUPERFICIAL INJURY OF RIGHT GREAT T 12/18/2017 LUIS ARMANDO RAMSEY, ARLETTE Klein Ot 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 12/18/2017 ARLETTE DURÁN MD Ot E78.00 PURE HYPERCHOLESTEROLEMIA, UNSPECIFIED 12/18/2017 ARLETTE DURÁN MD Ot E87.70 FLUID OVERLOAD, UNSPECIFIED 12/18/2017 ARLETTE DURÁN MD Ot G43.909 MIGRAINE, UNSP, NOT INTRACTABLE, WITHOUT 12/18/2017 ARLETTE DURÁN MD Ot I12.0 HYP CHR KIDNEY DISEASE W STAGE 5 CHR KID 12/18/2017 ARLETTE DURÁN MD Ot I25.10 ATHSCL HEART DISEASE OF [place] CORONARY 12/18/2017 ARLETTE DURÁN MD Ot I73.9 [...] SMO 12/18/2017 ARLETTE DURÁN MD Ot Z79.02 SHELTER (CURRENT) USE OF ANTITHROMBOTI 12/18/2017 ARLETTE DURÁN MD Ot Z79.4 DATA ANALYST ETL DEVELOPER (CURRENT) USE OF INSULIN 12/18/2017 ARLETTE DURÁN MD Ot Z79.51 SHELTER (CURRENT) USE OF INHALED STERO 12/18/2017 ARLETTE DURÁN MD Ot Z79.82 DATA ANALYST ETL DEVELOPER (CURRENT) USE OF ASPIRIN 12/18/2017 ARLETTE DURÁN [...] Ot Z93.0 TRACHEOSTOMY STATUS 12/18/2017 ARLETTE DURÁN MD, Ot Z96.652 PRESENCE OF LEFT ARTIFICIAL KNEE JOINT 12/18/2017 ARLETTE DURÁN MD, Ot Z98.890 OTHER SPECIFIED POSTPROCEDURAL STATES 12/18/2017 ARLETTE DURÁN MD, Ot Z99.2 DEPENDENCE ON RENAL DIALYSIS 12/20/2017 ARLETTE DURÁN MD Ot 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 12/20/2017 ARLETTE DURÁN MD, Ot E78.00 PURE HYPERCHOLESTEROLEMIA, UNSPECIFIED 12/20/2017 ARLETTE DURÁN MD Ot E87.70 FLUID OVERLOAD, UNSPECIFIED 12/20/2017 ARLETTE DURÁN MD, Ot G43.909 MIGRAINE, UNSP, NOT INTRACTABLE, WITHOUT 12/20/2017 ARLETTE DURÁN MD, Ot I12.0 HYP CHR KIDNEY DISEASE W STAGE 5 CHR KID 12/20/2017 ARLETTE DURÁN MD Ot I25.10 ATHSCL HEART DISEASE OF [place] CORONARY 12/20/2017 ARLETTE DURÁN MD Ot I73.9 PERIPHERAL VASCULAR DISEASE, UNSPECIFIED 12/20/2017 ARLETTE DURÁN MD, Ot J18.9 PNEUMONIA, UNSPECIFIED ORGANISM 12/20/2017 ARLETTE DURÁN MD, Ot J43.9 EMPHYSEMA, UNSPECIFIED 12/20/2017 ARLETTE DURÁN MD Ot N18.6 END STAGE RENAL DISEASE 12/20/2017 ARLETTE DURÁN MD Ot R06.02 SHORTNESS OF BREATH 12/20/2017 ARLETTE DURÁN MD Ot Z77.22 CNTCT W AND EXPSR TO ENVIRON TOBACCO SMO 12/20/2017 ARLETTE DURÁN MD Ot Z79.02 SHELTER (CURRENT) USE OF ANTITHROMBOTI 12/20/2017 ARLETTE DURÁN MD, Ot Z79.4 SHELTER (CURRENT) USE OF INSULIN 12/20/2017 ARLETTE DURÁN MD, Ot Z79.51 DATA ANALYST ETL DEVELOPER (CURRENT) USE OF INHALED STERO 12/20/2017 ARLETTE DURÁN MD Ot Z79.82 SHELTER (CURRENT) USE OF ASPIRIN 12/20/2017 ARLETTE DURÁN MD Ot Z87.19 PERSONAL HISTORY OF OTHER DISEASES OF TH 12/20/2017 ARLETTE DURÁN MD, Ot Z88.7 ALLERGY STATUS TO SERUM AND VACCINE STAT 12/20/2017 ARLETTE DURÁN MD, Ot Z90.710 ACQUIRED ABSENCE OF BOTH CERVIX AND UTER 12/20/2017 ARLETTE DURÁN MD, Ot Z91.048 OTHER NONMEDICINAL SUBSTANCE ALLERGY STA 12/20/2017 ARLETTE DURÁN MD, Ot Z93.0 TRACHEOSTOMY STATUS 12/20/2017 ARLETTE DURÁN MD, Ot Z96.652 PRESENCE OF LEFT ARTIFICIAL KNEE JOINT 12/20/2017 ARLETTE DURÁN MD, Ot Z98.890 OTHER SPECIFIED POSTPROCEDURAL STATES 12/20/2017 ARLETTE DURÁN MD, Ot Z99.2 DEPENDENCE ON RENAL DIALYSIS 12/23/2017 MCKENNA HEBERT Ot Z89.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 12/24/2017 MCKENNA HEBERT Ot Z89.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 12/27/2017 MCKENNA HEBERT Ot Z89.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 03/13/2018 MIRTA STAPLETON MD Ot E11.10 TYPE 2 DIABETES MELLITUS WITH KETOACIDOS 03/13/2018 MIRTA STAPLETON MD Ot 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 03/13/2018 MIRTA STAPLETON MD, Ot E11.40 TYPE 2 DIABETES MELLITUS WITH DIABETIC N 03/13/2018 MIRTA STAPLETON MD, Ot E11.59 TYPE 2 DIABETES MELLITUS WITH OTH CIRCUL 03/13/2018 MIRTA STAPLETON MD Ot E11.65 TYPE 2 DIABETES MELLITUS WITH HYPERGLYCE 03/13/2018 MIRTA STAPLETON MD Ot E78.00 PURE HYPERCHOLESTEROLEMIA, UNSPECIFIED 03/13/2018 MIRTA STAPLETON MD Ot G43.909 MIGRAINE, UNSP, NOT INTRACTABLE, WITHOUT 03/13/2018 MIRTA STAPLETON MD Ot I12.0 HYP CHR KIDNEY DISEASE W STAGE 5 CHR KID 03/13/2018 MIRTA STAPLETON MD Ot I73.9 PERIPHERAL VASCULAR DISEASE, UNSPECIFIED 03/13/2018 MIRTA STAPLETON MD, Ot J43.9 EMPHYSEMA, UNSPECIFIED 03/13/2018 MIRTA STAPLETON MD, Ot N18.6 END STAGE RENAL DISEASE 03/13/2018 MIRTA STAPLETON MD, Ot R07.89 OTHER CHEST PAIN 03/13/2018 MIRTA STAPLETON MD, Ot Z79.02 SHELTER (CURRENT) USE OF ANTITHROMBOTI 03/13/2018 MIRTA STAPLETON MD, Ot Z79.4 DATA ANALYST ETL DEVELOPER (CURRENT) USE OF INSULIN 03/13/2018 MIRTA STAPLETON MD, Ot Z79.82 DATA ANALYST ETL DEVELOPER (CURRENT) USE OF ASPIRIN 03/13/2018 MIRTA STAPLETON MD, Ot Z87.19 PERSONAL HISTORY OF OTHER DISEASES OF TH 03/13/2018 MIRTA STAPLETON MD, Ot Z88.7 ALLERGY STATUS TO SERUM AND VACCINE STAT 03/13/2018 MIRTA STAPLETON MD, Ot Z90.710 ACQUIRED ABSENCE OF BOTH CERVIX AND UTER 03/13/2018 MIRTA STAPLETON MD, Ot Z90.89 ACQUIRED ABSENCE OF OTHER ORGANS 03/13/2018 MIRTA STAPLETON MD, Ot Z91.048 OTHER NONMEDICINAL SUBSTANCE ALLERGY STA 03/13/2018 MIRTA STAPLETON MD, Ot Z93.0 TRACHEOSTOMY STATUS 03/13/2018 MIRTA STAPLETON MD, Ot Z98.890 OTHER SPECIFIED POSTPROCEDURAL STATES 03/13/2018 MIRTA STAPLETON MD, Ot Z99.2 DEPENDENCE ON RENAL DIALYSIS 03/13/2018 MIRTA STAPLETON MD, Ot Z99.81 DEPENDENCE ON SUPPLEMENTAL OXYGEN 03/13/2018 VIKKI KWOK MD Ot L02.611 CUTANEOUS ABSCESS OF RIGHT FOOT 03/13/2018 PIETER POOLE MD Ot E11.621 TYPE 2 DIABETES MELLITUS WITH FOOT ULCER 03/13/2018 PIETER POOLE MD Ot 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 03/13/2018 PIETER POOLE MD, Ot 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 03/13/2018 LORETTA MARTINO APRN Ot E11.621 TYPE 2 DIABETES MELLITUS WITH FOOT ULCER 03/13/2018 LORETTA MARTINO PATIENT TRANSPORT ORDERLY Ot E66.01 MORBID (SEVERE) OBESITY DUE TO EXCESS CA 03/13/2018 LORETTA MARTINO APRN Ot I50.20 UNSPECIFIED SYSTOLIC (CONGESTIVE) HEART 03/13/2018 LORETTA MARTINO PATIENT TRANSPORT ORDERLY Ot 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 03/13/2018 LORETTA MARTINO PATIENT TRANSPORT ORDERLY Ot I89.0 LYMPHEDEMA, NOT ELSEWHERE CLASSIFIED 03/13/2018 LORETTA MARTINO PATIENT TRANSPORT ORDERLY Ot L03.115 CELLULITIS OF RIGHT LOWER LIMB 03/13/2018 LORETTA MARTINO PATIENT TRANSPORT ORDERLY Ot L97.211 NON-PRS CHRONIC ULCER OF RIGHT CALF LIMI 03/13/2018 LORETTA MARTINO PATIENT TRANSPORT ORDERLY Ot 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 03/13/2018 LORETTA MARTINO PATIENT TRANSPORT ORDERLY Ot L97.512 NON-PRS CHRONIC ULCER OTH PRT RIGHT FOOT 03/13/2018 LORETTA MARTINO PATIENT TRANSPORT ORDERLY Ot N18.6 END STAGE RENAL DISEASE 03/13/2018 LORETTA MARTINO PATIENT TRANSPORT ORDERLY Ot Z68.43 BODY MASS INDEX (BMI) 50-59.9 , ADULT 03/13/2018 LORETTA MARTINO PATIENT TRANSPORT ORDERLY Ot E11.621 TYPE 2 DIABETES MELLITUS WITH FOOT ULCER 03/13/2018 LORETTA MARTINO PATIENT TRANSPORT ORDERLY Ot 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 03/13/2018 LORETTA MARTINO PATIENT TRANSPORT ORDERLY Ot I89.0 LYMPHEDEMA, NOT ELSEWHERE CLASSIFIED 03/13/2018 LORETTA MARTINO PATIENT TRANSPORT ORDERLY Ot L97.211 NON-PRS CHRONIC ULCER OF RIGHT [place] 03/13/2018 LORETTA MARTINO PATIENT TRANSPORT ORDERLY Ot 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 03/13/2018 LORETTA MARTINO PATIENT TRANSPORT ORDERLY Ot L97.512 NON-PRS CHRONIC ULCER OTH PRT RIGHT FOOT 03/13/2018 LORETTA MARTINO PATIENT TRANSPORT ORDERLY Ot E11.621 TYPE 2 DIABETES MELLITUS WITH FOOT ULCER 03/13/2018 LORETTA MARTINO PATIENT TRANSPORT ORDERLY Ot 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 03/13/2018 LORETTA MARTINO PATIENT TRANSPORT ORDERLY Ot I89.0 LYMPHEDEMA, NOT ELSEWHERE CLASSIFIED 03/13/2018 LORETTA MARTINO PATIENT TRANSPORT ORDERLY Ot L97.211 NON-PRS CHRONIC ULCER OF RIGHT [place] 03/13/2018 LORETTA MARTINO PATIENT TRANSPORT ORDERLY Ot 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 03/13/2018 LORETTA MARTINO PATIENT TRANSPORT ORDERLY Ot L97.512 NON-PRS CHRONIC ULCER OTH PRT RIGHT FOOT 03/13/2018 LORETTA MARTINO PATIENT TRANSPORT ORDERLY Ot E11.621 TYPE 2 DIABETES MELLITUS WITH FOOT ULCER 03/13/2018 LORETTA MARTINO PATIENT TRANSPORT ORDERLY Ot 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 03/13/2018 LORETTA MARTINO PATIENT TRANSPORT ORDERLY Ot I89.0 LYMPHEDEMA, NOT ELSEWHERE CLASSIFIED 03/13/2018 LORETTA MARTINO PATIENT TRANSPORT ORDERLY Ot L97.512 NON-PRS CHRONIC ULCER OTH PRT RIGHT FOOT 03/13/2018 LORETTA MARTINO PATIENT TRANSPORT ORDERLY Ot N18.6 END STAGE RENAL DISEASE 03/13/2018 LORETTA MARTINO PATIENT TRANSPORT ORDERLY Ot E11.621 TYPE 2 DIABETES MELLITUS WITH FOOT ULCER 03/13/2018 LORETTA MARTINO PATIENT TRANSPORT ORDERLY Ot 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 03/13/2018 LORETTA MARTINO PATIENT TRANSPORT ORDERLY Ot I89.0 LYMPHEDEMA, NOT ELSEWHERE CLASSIFIED 03/13/2018 LORETTA MARTINO PATIENT TRANSPORT ORDERLY Ot L97.512 NON-PRS CHRONIC ULCER OTH PRT RIGHT FOOT 03/13/2018 LORETTA MARTINO PATIENT TRANSPORT ORDERLY Ot E11.621 TYPE 2 DIABETES MELLITUS WITH FOOT ULCER 03/13/2018 LORETTA MARTINO PATIENT TRANSPORT ORDERLY Ot 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 03/13/2018 LORETTA MRATINO PATIENT TRANSPORT ORDERLY Ot I89.0 LYMPHEDEMA, NOT ELSEWHERE CLASSIFIED 03/13/2018 LORETTA MARTINO PATIENT TRANSPORT ORDERLY Ot L97.512 NON-PRS CHRONIC ULCER OTH PRT RIGHT FOOT 03/13/2018 LORETTA MARTINO PATIENT TRANSPORT ORDERLY Ot E11.621 TYPE 2 DIABETES MELLITUS WITH FOOT ULCER 03/13/2018 LORETTA MARTINO PATIENT TRANSPORT ORDERLY Ot 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 03/13/2018 LORETTA MARTINO PATIENT TRANSPORT ORDERLY Ot I89.0 LYMPHEDEMA, NOT ELSEWHERE CLASSIFIED 03/13/2018 LORETTA MARTINO PATIENT TRANSPORT ORDERLY Ot L97.512 NON-PRS CHRONIC ULCER OTH PRT RIGHT FOOT 03/13/2018 LORETTA MARTINO PATIENT TRANSPORT ORDERLY Ot N18.6 END STAGE RENAL DISEASE 03/13/2018 ALDA FERRARO ADMISSIONS SUPERVISOR Ot I25.10 ATHSCL HEART DISEASE OF [place] CORONARY 03/13/2018 ALDA FERRARO ADMISSIONS SUPERVISOR Ot I50.32 CHRONIC DIASTOLIC (CONGESTIVE) HEART ОЛЬГА 03/13/2018 ALDA FERRARO ADMISSIONS SUPERVISOR Ot I73.89 OTHER SPECIFIED PERIPHERAL VASCULAR DISE 03/13/2018 AUDRAALDA VALADEZ ADMISSIONS SUPERVISOR Ot N18.5 CHRONIC KIDNEY DISEASE, STAGE 5 03/13/2018 LORETTA MARTINO PATIENT TRANSPORT ORDERLY Ot L03.115 CELLULITIS OF RIGHT LOWER LIMB 03/13/2018 LORETTA MARTINO PATIENT TRANSPORT ORDERLY Ot 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 03/13/2018 LORETTA MARTINO PATIENT TRANSPORT ORDERLY Ot Z45.2 ENCOUNTER FOR ADJUSTMENT AND MANAGEMENT 03/13/2018 LORETTA MARTINO PATIENT TRANSPORT ORDERLY Ot 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 03/13/2018 LORETTA MARTINO PATIENT TRANSPORT ORDERLY Ot E11.621 TYPE 2 DIABETES MELLITUS WITH FOOT ULCER 03/13/2018 LORETTA MARTINO PATIENT TRANSPORT ORDERLY Ot 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 03/13/2018 LORETTA MARTINO PATIENT TRANSPORT ORDERLY Ot I89.0 LYMPHEDEMA, NOT ELSEWHERE CLASSIFIED 03/13/2018 LORETTA MARTINO R PATIENT TRANSPORT ORDERLY Ot L97.512 NON-PRS CHRONIC ULCER OTH PRT RIGHT FOOT 03/13/2018 LORETTA MARTINO PATIENT TRANSPORT ORDERLY Ot N18.6 END STAGE RENAL DISEASE 03/13/2018 LORETTA MARTINO PATIENT TRANSPORT ORDERLY Ot E11.621 TYPE 2 DIABETES MELLITUS WITH FOOT ULCER 03/13/2018 LORETTA MARTINO PATIENT TRANSPORT ORDERLY Ot 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 03/13/2018 LORETTA MARTINO PATIENT TRANSPORT ORDERLY Ot I89.0 LYMPHEDEMA, NOT ELSEWHERE CLASSIFIED 03/13/2018 LORETTA MARTINO PATIENT TRANSPORT ORDERLY Ot L97.512 NON-PRS CHRONIC ULCER OTH PRT RIGHT FOOT 03/13/2018 LORETTA MARTINO PATIENT TRANSPORT ORDERLY Ot N18.6 END STAGE RENAL DISEASE 03/13/2018 LORETTA MARTINO PATIENT TRANSPORT ORDERLY Ot E11.621 TYPE 2 DIABETES MELLITUS WITH FOOT ULCER 03/13/2018 GUNNER, LORETTA R PATIENT TRANSPORT ORDERLY Ot 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 03/13/2018 LORETTA MARTINO PATIENT TRANSPORT ORDERLY Ot I89.0 LYMPHEDEMA, NOT ELSEWHERE CLASSIFIED 03/13/2018 LORETTA MARTINO PATIENT TRANSPORT ORDERLY Ot L97.512 NON-PRS CHRONIC ULCER OTH PRT RIGHT FOOT 03/13/2018 LORETTA MARTINO PATIENT TRANSPORT ORDERLY Ot E11.621 TYPE 2 DIABETES MELLITUS WITH FOOT ULCER 03/13/2018 LORETTA MARTINO PATIENT TRANSPORT ORDERLY Ot E66.01 MORBID (SEVERE) OBESITY DUE TO EXCESS CA 03/13/2018 LORETTA MARTINO R PATIENT TRANSPORT ORDERLY Ot I50.20 UNSPECIFIED SYSTOLIC (CONGESTIVE) HEART 03/13/2018 LORETTA MARTINO PATIENT TRANSPORT ORDERLY Ot 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 03/13/2018 LORETTA MARTINO PATIENT TRANSPORT ORDERLY Ot I89.0 LYMPHEDEMA, NOT ELSEWHERE CLASSIFIED 03/13/2018 LORETTA MARTINO PATIENT TRANSPORT ORDERLY Ot L97.512 NON-PRS CHRONIC ULCER OTH PRT RIGHT FOOT 03/13/2018 LORETTA MARTINO PATIENT TRANSPORT ORDERLY Ot N18.6 END STAGE RENAL DISEASE 03/13/2018 LORETTA MARTINO PATIENT TRANSPORT ORDERLY Ot S90.931A UNSP SUPERFICIAL INJURY OF RIGHT GREAT T 03/13/2018 LORETTA MARTINO R PATIENT TRANSPORT ORDERLY Ot Z68.43 BODY MASS INDEX (BMI) 50-59.9 , ADULT 03/13/2018 LORETTA MARTINO R PATIENT TRANSPORT ORDERLY Ot E11.621 TYPE 2 DIABETES MELLITUS WITH FOOT ULCER 03/13/2018 LORETTA MARTINO PATIENT TRANSPORT ORDERLY Ot E66.01 MORBID (SEVERE) OBESITY DUE TO EXCESS CA 03/13/2018 LORETTA MARTINO PATIENT TRANSPORT ORDERLY Ot I50.20 UNSPECIFIED SYSTOLIC (CONGESTIVE) HEART 03/13/2018 LORETTA MARTINO PATIENT TRANSPORT ORDERLY Ot 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 03/13/2018 LORETTA MARTINO PATIENT TRANSPORT ORDERLY Ot I89.0 LYMPHEDEMA, NOT ELSEWHERE CLASSIFIED 03/13/2018 LORETTA MARTINO PATIENT TRANSPORT ORDERLY Ot L97.512 NON-PRS CHRONIC ULCER OTH PRT RIGHT FOOT 03/13/2018 LORETTA MARTINO PATIENT TRANSPORT ORDERLY Ot N18.6 END STAGE RENAL DISEASE 03/13/2018 LORETTA MARTINO PATIENT TRANSPORT ORDERLY Ot S90.931A UNSP SUPERFICIAL INJURY OF RIGHT GREAT T 03/13/2018 LORETTA MARTINO PATIENT TRANSPORT ORDERLY Ot Z68.43 BODY MASS INDEX (BMI) 50-59.9 , ADULT 03/13/2018 LORETTA MARTINO PATIENT TRANSPORT ORDERLY Ot E11.621 TYPE 2 DIABETES MELLITUS WITH FOOT ULCER 03/13/2018 LORETTA MARTINO PATIENT TRANSPORT ORDERLY Ot E66.01 MORBID (SEVERE) OBESITY DUE TO EXCESS CA 03/13/2018 LORETTA MARTINO PATIENT TRANSPORT ORDERLY Ot I50.20 UNSPECIFIED SYSTOLIC (CONGESTIVE) HEART 03/13/2018 LORETTA MARTINO PATIENT TRANSPORT ORDERLY Ot 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 03/13/2018 LORETTA MARTINO PATIENT TRANSPORT ORDERLY Ot 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 03/13/2018 LORETTA MARTINO PATIENT TRANSPORT ORDERLY Ot I89.0 LYMPHEDEMA, NOT ELSEWHERE CLASSIFIED 03/13/2018 LORETTA MARTINO PATIENT TRANSPORT ORDERLY Ot L97.512 NON-PRS CHRONIC ULCER OTH PRT RIGHT FOOT 03/13/2018 LORETTA MARTINO PATIENT TRANSPORT ORDERLY Ot N18.6 END STAGE RENAL DISEASE 03/13/2018 LORETTA MARTINO PATIENT TRANSPORT ORDERLY Ot S90.931A UNSP SUPERFICIAL INJURY OF RIGHT GREAT T 03/13/2018 LORETTA MARTINO PATIENT TRANSPORT ORDERLY Ot E11.621 TYPE 2 DIABETES MELLITUS WITH FOOT ULCER 03/13/2018 LORETTA MARTINO PATIENT TRANSPORT ORDERLY Ot E66.01 MORBID (SEVERE) OBESITY DUE TO EXCESS CA 03/13/2018 LORETTA MARTINO PATIENT TRANSPORT ORDERLY Ot I50.20 UNSPECIFIED SYSTOLIC (CONGESTIVE) HEART 03/13/2018 LORETTA MARTINO APRN Ot 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 03/13/2018 LORETTA MARTINO PATIENT TRANSPORT ORDERLY Ot 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 03/13/2018 LORETTA MARTINO PATIENT TRANSPORT ORDERLY Ot I89.0 LYMPHEDEMA, NOT ELSEWHERE CLASSIFIED 03/13/2018 LORETTA MARTINO PATIENT TRANSPORT ORDERLY Ot L97.512 NON-PRS CHRONIC ULCER OTH PRT RIGHT FOOT 03/13/2018 LORETTA MARTINO PATIENT TRANSPORT ORDERLY Ot N18.6 END STAGE RENAL DISEASE 03/13/2018 LORETTA MARTINO PATIENT TRANSPORT ORDERLY Ot E11.621 TYPE 2 DIABETES MELLITUS WITH FOOT ULCER 03/13/2018 LORETTA MARTINO PATIENT TRANSPORT ORDERLY Ot E66.01 MORBID (SEVERE) OBESITY DUE TO EXCESS CA 03/13/2018 LORETTA MARTINO PATIENT TRANSPORT ORDERLY Ot I50.20 UNSPECIFIED SYSTOLIC (CONGESTIVE) HEART 03/13/2018 LORETTA MARTINO PATIENT TRANSPORT ORDERLY Ot 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 03/13/2018 LORETTA MARTINO PATIENT TRANSPORT ORDERLY Ot 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 03/13/2018 LORETTA MARTINO PATIENT TRANSPORT ORDERLY Ot I89.0 LYMPHEDEMA, NOT ELSEWHERE CLASSIFIED 03/13/2018 LORETTA MARTINO PATIENT TRANSPORT ORDERLY Ot L97.512 NON-PRS CHRONIC ULCER OTH PRT RIGHT FOOT 03/13/2018 LORETTA MARTINO PATIENT TRANSPORT ORDERLY Ot N18.6 END STAGE RENAL DISEASE 03/13/2018 LORETTA MARTINO PATIENT TRANSPORT ORDERLY Ot S90.931A UNSP SUPERFICIAL INJURY OF RIGHT GREAT T 03/13/2018 LORETTA MARTINO PATIENT TRANSPORT ORDERLY Ot E11.621 TYPE 2 DIABETES MELLITUS WITH FOOT ULCER 03/13/2018 LORETTA MARTINO PATIENT TRANSPORT ORDERLY Ot 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 03/13/2018 LORETTA MARTINO PATIENT TRANSPORT ORDERLY Ot I89.0 LYMPHEDEMA, NOT ELSEWHERE CLASSIFIED 03/13/2018 LORETTA MARTINO PATIENT TRANSPORT ORDERLY Ot L97.512 NON-PRS CHRONIC ULCER OTH PRT RIGHT FOOT 03/13/2018 LORETTA MARTINO PATIENT TRANSPORT ORDERLY Ot E11.621 TYPE 2 DIABETES MELLITUS WITH FOOT ULCER 03/13/2018 LORETTA MARTINO PATIENT TRANSPORT ORDERLY Ot 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 03/13/2018 LORETTA MARTINO PATIENT TRANSPORT ORDERLY Ot I89.0 LYMPHEDEMA, NOT ELSEWHERE CLASSIFIED 03/13/2018 LORETTA MARTINO PATIENT TRANSPORT ORDERLY Ot L97.511 NON-PRS CHRONIC ULCER OTH PRT R FOOT MARSH 03/13/2018 LORETTA MARTINO PATIENT TRANSPORT ORDERLY Ot E11.621 TYPE 2 DIABETES MELLITUS WITH FOOT ULCER 03/13/2018 LORETTA MARTINO PATIENT TRANSPORT ORDERLY Ot E66.01 MORBID (SEVERE) OBESITY DUE TO EXCESS CA 03/13/2018 LORETTA MARTINO PATIENT TRANSPORT ORDERLY Ot I50.20 UNSPECIFIED SYSTOLIC (CONGESTIVE) HEART 03/13/2018 LORETTA MARTINO PATIENT TRANSPORT ORDERLY Ot 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 03/13/2018 LORETTA MARTINO PATIENT TRANSPORT ORDERLY Ot 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 03/13/2018 LORETTA MARTINO PATIENT TRANSPORT ORDERLY Ot I89.0 LYMPHEDEMA, NOT ELSEWHERE CLASSIFIED 03/13/2018 LORETTA MARTINO PATIENT TRANSPORT ORDERLY Ot L97.511 NON-PRS CHRONIC ULCER OTH PRT R FOOT MARSH 03/13/2018 LORETTA MARTINO PATIENT TRANSPORT ORDERLY Ot N18.6 END STAGE RENAL DISEASE 03/13/2018 LORETTA MARTINO PATIENT TRANSPORT ORDERLY Ot S90.931A UNSP SUPERFICIAL INJURY OF RIGHT GREAT T 03/14/2018 PIETER RAMSEY, MIRTA Enciso Ot E11.10 TYPE 2 DIABETES MELLITUS WITH KETOACIDOS 03/14/2018 MIRTA STAPLETON MD Ot 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 03/14/2018 MIRTA STAPLETON MD Ot E11.40 TYPE 2 DIABETES MELLITUS WITH DIABETIC N 03/14/2018 MIRTA STAPLETON MD Ot E11.59 TYPE 2 DIABETES MELLITUS WITH OTH CIRCUL 03/14/2018 MIRTA STAPLETON MD Ot E11.65 TYPE 2 DIABETES MELLITUS WITH HYPERGLYCE 03/14/2018 MIRTA STAPLETON MD Ot E78.00 PURE HYPERCHOLESTEROLEMIA, UNSPECIFIED 03/14/2018 MIRTA STAPLETON MD Ot G43.909 MIGRAINE, UNSP, NOT INTRACTABLE, WITHOUT 03/14/2018 MIRTA STAPLETON MD Ot I12.0 HYP CHR KIDNEY DISEASE W STAGE 5 CHR KID 03/14/2018 MIRTA STAPLETON MD Ot I73.9 PERIPHERAL VASCULAR DISEASE, UNSPECIFIED 03/14/2018 MIRTA STAPLETON MD Ot J43.9 EMPHYSEMA, UNSPECIFIED 03/14/2018 MIRTA STAPLETON MD Ot N18.6 END STAGE RENAL DISEASE 03/14/2018 MIRTA STAPLETON MD Ot R07.89 OTHER CHEST PAIN 03/14/2018 MIRTA STAPLETON MD Ot Z79.02 DATA ANALYST ETL DEVELOPER (CURRENT) USE OF ANTITHROMBOTI 03/14/2018 MIRTA STAPLETON MD Ot Z79.4 DATA ANALYST ETL DEVELOPER (CURRENT) USE OF INSULIN 03/14/2018 MIRTA STAPLETON MD, Ot Z79.82 DATA ANALYST ETL DEVELOPER (CURRENT) USE OF ASPIRIN 03/14/2018 MIRTA STAPLETON MD, Ot Z87.19 PERSONAL HISTORY OF OTHER DISEASES OF TH 03/14/2018 MIRTA STAPLETON MD, Ot Z88.7 ALLERGY STATUS TO SERUM AND VACCINE STAT 03/14/2018 MIRTA STAPLETON MD, Ot Z90.710 ACQUIRED ABSENCE OF BOTH CERVIX AND UTER 03/14/2018 MIRTA STAPLETON MD, Ot Z90.89 ACQUIRED ABSENCE OF OTHER ORGANS 03/14/2018 MIRTA STAPLETON MD, Ot Z91.048 OTHER NONMEDICINAL SUBSTANCE ALLERGY STA 03/14/2018 MIRTA STAPLETON MD, Ot Z93.0 TRACHEOSTOMY STATUS 03/14/2018 MIRTA STAPLETON MD, Ot Z98.890 OTHER SPECIFIED POSTPROCEDURAL STATES 03/14/2018 MIRTA STAPLETON MD, Ot Z99.2 DEPENDENCE ON RENAL DIALYSIS 03/14/2018 MIRTA STAPLETON MD, Ot Z99.81 DEPENDENCE ON SUPPLEMENTAL OXYGEN 03/18/2018 MIRTA STAPLETON MD, Ot E11.10 TYPE 2 DIABETES MELLITUS WITH KETOACIDOS 03/18/2018 MIRTA STAPLETON MD, Ot 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 03/18/2018 MIRTA STAPLETON MD, Ot E11.40 TYPE 2 DIABETES MELLITUS WITH DIABETIC N 03/18/2018 MIRTA STAPLETON MD, Ot E11.59 TYPE 2 DIABETES MELLITUS WITH OTH CIRCUL 03/18/2018 MIRTA STAPLTEON MD, Ot E11.65 TYPE 2 DIABETES MELLITUS WITH HYPERGLYCE 03/18/2018 MIRTA STAPLETON MD Ot E78.00 PURE HYPERCHOLESTEROLEMIA, UNSPECIFIED 03/18/2018 MIRTA STAPLETON MD, Ot G43.909 MIGRAINE, UNSP, NOT INTRACTABLE, WITHOUT 03/18/2018 MIRTA STAPLETON MD, Ot I12.0 HYP CHR KIDNEY DISEASE W STAGE 5 CHR KID 03/18/2018 MIRTA STAPLETON MD, Ot I73.9 PERIPHERAL VASCULAR DISEASE, UNSPECIFIED 03/18/2018 MIRTA STAPLETON MD, Ot J43.9 EMPHYSEMA, UNSPECIFIED 03/18/2018 MIRTA STAPLETON MD, Ot N18.6 END STAGE RENAL DISEASE 03/18/2018 MIRTA STAPLETON MD, Ot R07.89 OTHER CHEST PAIN 03/18/2018 MIRTA STAPLETON MD, Ot Z79.02 SHELTER (CURRENT) USE OF ANTITHROMBOTI 03/18/2018 MIRTA STAPLETON MD, Ot Z79.4 SHELTER (CURRENT) USE OF INSULIN 03/18/2018 MIRTA STAPLETON MD, Ot Z79.82 SHELTER (CURRENT) USE OF ASPIRIN 03/18/2018 MIRTA STAPLETON MD, Ot Z87.19 PERSONAL HISTORY OF OTHER DISEASES OF TH 03/18/2018 MIRTA STAPLETON MD, Ot Z88.7 ALLERGY STATUS TO SERUM AND VACCINE STAT 03/18/2018 MIRTA STAPLETON MD, Ot Z90.710 ACQUIRED ABSENCE OF BOTH CERVIX AND UTER 03/18/2018 MIRTA STAPLETON MD, Ot Z90.89 ACQUIRED ABSENCE OF OTHER ORGANS 03/18/2018 MIRTA STAPLETON MD, Ot Z91.048 OTHER NONMEDICINAL SUBSTANCE ALLERGY STA 03/18/2018 MIRTA STAPLETON MD, Ot Z93.0 TRACHEOSTOMY STATUS 03/18/2018 MIRTA STAPLETON MD, Ot Z98.890 OTHER SPECIFIED POSTPROCEDURAL STATES 03/18/2018 MIRTA STAPLETON MD, Ot Z99.2 DEPENDENCE ON RENAL DIALYSIS 03/18/2018 MIRTA STAPLETON MD, Ot Z99.81 DEPENDENCE ON SUPPLEMENTAL OXYGEN Procedures Code Description Performed By Performed On Cardiolog Madan Waller 05/07/2012 76124 MEASURE BLOOD OXYGEN LEVEL 05/08/2012 98676 MICRO ALBUMIN-IN HOUSE 05/20/2012 60098 A1C (IN-HOUSE) 05/20/2012 50497 MICROALBUMIN 05/20/2012 55374 ROUTINE VENIPUNCTURE 06/04/2012 46578 EKG, TRACING (IN-HOUSE) 06/04/2012 65454 CBC 06/04/2012 66240 CMP 06/04/2012 44874 LIPID PANEL 06/04/2012 [id number] GFR CALC (RESULT ONLY) 06/04/2012 23823 TSH 06/04/2012 36287 XRAY CHEST 2 VIEW 06/05/2012 84980 ROUTINE VENIPUNCTURE 06/20/2012 11289 BMP 06/20/2012 [id number] GFR CALC (RESULT ONLY) 06/20/2012 75700 ROUTINE VENIPUNCTURE 07/16/2012 47934 BMP 07/16/2012 [id number] GFR CALC (RESULT ONLY) 07/16/2012 78768 ROUTINE VENIPUNCTURE 08/15/2012 61214 RENAL PROFILE 08/15/2012 [id number] GFR CALC (RESULT ONLY) 08/15/2012 37676 ROUTINE VENIPUNCTURE 08/19/2012 56421 CMP 08/19/2012 [id number] GFR CALC (RESULT ONLY) 08/19/2012 78581 PHOSPHORUS 08/19/2012 60052 CMP 09/03/2012 22185 LIPID PANEL 09/03/2012 82868 OXIMETRY 09/03/2012 38069 ROUTINE VENIPUNCTURE 09/09/2012 51820 CMP 09/09/2012 88089 LIPID PANEL 09/09/2012 [id number] GFR CALC (RESULT ONLY) 09/09/2012 61172 ROUTINE VENIPUNCTURE 09/18/2012 81137 BMP 09/18/2012 [id number] GFR CALC (RESULT ONLY) 09/18/2012 87675 ROUTINE VENIPUNCTURE 10/01/2012 19794 US RENAL ULTRASOUND, COMP 10/01/2012 36926 VITAMIN D I-25 DIHYDROXY 10/01/2012 80345 PTH (intact) (ORDER ONLY) 10/01/2012 71476 A1C (IN-HOUSE) 10/01/2012 19356 CMP 10/01/2012 93035 MAGNESIUM 10/01/2012 [id number] GFR CALC (RESULT ONLY) 10/01/2012 24878 UA W/MICROSCOPY 10/01/2012 93806 VITAMIN D 25-HYDROXY (D2,D3 , TOTAL) 10/01/2012 33024 HEPATITIS PROFILE 10/01/2012 5658562 CALCIUM (RESULT ONLY) 10/02/2012 4743577 PTH INTACT JC (RESULT ONLY) 10/02/2012 PRO/CRE URINE PROTEIN TO CREATNINE RATIO 10/02/2012 46051 HIV ANTIBODIES (RML) 10/02/2012 10178 ROUTINE VENIPUNCTURE 12/08/2012 23660 UA W/ CULTURE IF INDICATED 12/08/2012 37896 CBC 12/08/2012 25041 RENAL PROFILE 12/08/2012 [id number] GFR CALC (RESULT ONLY) 12/08/2012 PRO/CRE URINE PROTEIN TO CREATNINE RATIO 12/08/2012 01847 A1C (IN-HOUSE) 12/26/2012 Cardiolog Syl Hsieh 01/22/2013 28848 SLEEP STUDY 02/04/2013 71848 ROUTINE VENIPUNCTURE 03/02/2013 23002 UA W/ CULTURE IF INDICATED 03/02/2013 14529 CBC 03/02/2013 29390 RENAL PROFILE 03/02/2013 1690252 GFR CALC (RESULT ONLY) 03/02/2013 97992 MAMMOGRAM, SCREENING 03/04/2013 44313 A1C (IN-HOUSE) 03/30/2013 66267 ROUTINE VENIPUNCTURE 05/13/2013 64795 UA W/ CULTURE IF INDICATED 05/13/2013 18952 A1C (IN-HOUSE) 05/13/2013 30631 CBC 05/13/2013 54459 RENAL PROFILE 05/13/2013 54678 IRON SERUM 05/13/2013 34373 IRON BNDNG CAP 05/13/2013 3404556 GFR CALC (RESULT ONLY) 05/13/2013 57334 HEPATITIS PROFILE 05/13/2013 26868 FERRITIN 05/13/2013 95877 ANCA PANEL (C AND P) 05/13/2013 59155 C 4 COMPLEMENT SERUM 05/13/2013 93974 CULTURE URINE 05/13/2013 ANAANA SAIRA ANALYZER (SCREEN) 05/13/2013 IRGROUP IRON GROUP (Iron,TIBC, Ferritin) 05/13/2013 PRO/CRE URINE PROTEIN TO CREATNINE RATIO 05/13/2013 34852 ROUTINE VENIPUNCTURE 06/22/2013 28411 OXIMETRY 06/22/2013 17625 CBC 06/22/2013 39414 CMP 06/22/2013 [id number] GFR CALC (RESULT ONLY) 06/22/[id number] SPTYPE 06/23/2013 43422 ROUTINE VENIPUNCTURE 07/06/2013 49721 BMP 07/06/2013 54729 OXIMETRY 07/06/2013 07901 OXIMETRY 07/09/2013 13812 SLEEP STUDY ([facility]- SLEEP STUDY) 07/09/2013 54735 A1C (IN-HOUSE) 08/28/2013 10074 OXIMETRY 09/10/2013 09605 OXIMETRY 09/28/2013 GENERAL S BARON CHISHOLM 09/28/2013 66877 A1C (IN-HOUSE) 11/27/2013 23300 MICROALBUMIN 12/30/2013 30640 MICRO ALBUMIN-IN HOUSE 12/30/2013 06736 OXIMETRY 07/21/2014 Results Test Result Range Complete [...] Blood macrocytes detection by light microscopy SLIGHT NR Manual blood nucleated erythrocytes/100 leukocytes ratio 1 [facility] Comprehensive metabolic panel - 04/03/16 21:16 Serum [...] - 04/03/16 21:16 Bacterial blood culture NG [facility] Blood lactic acid measurement (moles/volume) - 04/03/16 21:27 Blood lactic acid measurement (moles/volume) 1.4 mmol/L 0.5-2.0 Magnesium - 04/03/16 21:27 Magnesium 2.1 mg/dL 1.8-2.4 Serum or plasma creatine kinase measurement (enzymatic activity/volume) - 04/03 21:27 Serum or plasma creatine kinase measurement (enzymatic activity/volume) 20 U/L 29-168 Serum or plasma creatine kinase MB measurement (enzymatic activity/volume) - 21: Serum or plasma creatine kinase MB measurement (enzymatic activity/volume) 0.8 ng/mL <6.6 Serum or plasma troponin i.cardiac measurement (mass/volume) - 04/03/16 21: Serum or plasma troponin i.cardiac measurement (mass/volume) [...] 13:48 Bacteria identification in wound by culture [id number] [facility] FREE TEXT EXTERNAL SENSITIVITY REPORTED 06/21/16 [...] 13:40 Bacteria identification in wound by culture [id number] NRG FREE TEXT EXTERNAL (NOT JK) NRG [...] 14:01 Bacteria identification in wound by culture [id number] [facility] FREE TEXT EXTERNAL PLEASE NOTIFY MICRO [...] 13:38 Bacteria identification in wound by culture [id number] NR[facility] FREE TEXT EXTERNAL RML ID: [id number] [...] identification in isolate by anaerobe culture NOANA [facility] Gram stain microscopy - 01/31/17 14:49 GRAM STAIN RESULT NO WBC'S OR BACTERIA OBSERVED NR Bacteria identification in wound by culture - 01/31/17 14:49 Bacteria identification in wound by culture [id number] [facility] FREE TEXT EXTERNAL SENSITIVITY REPORTED 02/03 [...] culture - 12/18/17 20:20 Bacterial blood culture NRG Complete blood count (CBC) with automated [...] platelet poor plasma by coagulation assay - 03/12/18 21:20 Prothrombin time (PT) in platelet poor plasma by coagulation assay 14.1 s 12.2-14.7 INR in platelet poor plasma or blood by coagulation assay 1.1 0.8-1.4 Activated partial thromboplastin time (aPTT) in platelet poor plasma bycoagulation assay - 03/12/18 21:20 Activated partial thromboplastin time (aPTT) in platelet poor plasma bycoagulation assay 31 s 24-35 Comprehensive metabolic panel - 03/12/18 21:20 Serum or plasma sodium measurement (moles/volume) 133 mmol/L 135-145 Serum or plasma potassium measurement (moles/volume) 5.2 mmol/L 3.6-5.0 Serum or plasma chloride measurement (moles/volume) 88 mmol/L 98-107 Carbon dioxide 26 mmol/L 21-32 Serum or plasma anion gap determination (moles/volume) 19 mmol/L 5-14 Serum or plasma urea nitrogen measurement (mass/volume) 29 mg/dL 7-18 Serum or plasma creatinine measurement (mass/volume) 5.60 mg/dL 0.60-1.30 Serum or plasma urea nitrogen/creatinine mass ratio 5 NRG Serum or plasma creatinine measurement with calculation of estimated glomerular filtration rate 8 NRG Serum or plasma glucose measurement (mass/volume) 569 mg/dL 70-105 Serum or plasma calcium measurement (mass/volume) 9.3 mg/dL 8.5-10.1 Serum or plasma total bilirubin measurement (mass/volume) 0.5 mg/dL 0.1-1.0 Serum or plasma alkaline phosphatase measurement (enzymatic activity/volume) 139 U/L 40-136 Serum or plasma aspartate aminotransferase measurement (enzymatic activity/ volume) 29 U/L 5-34 Serum or plasma alanine aminotransferase measurement (enzymatic activity/volume ) 38 U/L 0-55 Serum or plasma protein measurement (mass/volume) 8.1 g/dL 6.4-8.2 Serum or plasma albumin measurement (mass/volume) 4.0 g/dL 3.2-4.5 CALCIUM CORRECTED 9.3 mg/dL 8.5-10.1 Magnesium - 03/12/18 21:20 Magnesium 2.0 mg/dL 1.8-2.4 Blood lactic acid measurement (moles/volume) - 03/12/18 21:20 Blood lactic acid measurement (moles/volume) 1.77 mmol/L 0.50-2.00 Serum or plasma troponin i.cardiac measurement (mass/volume) - 03/12/18 21:20 Serum or plasma troponin i.cardiac measurement (mass/volume) < ng/ mL <0.30 Myoglobin, serum - 03/12/18 21:20 Myoglobin, serum 138.8 ng/mL 10.0-92.0 Blood manual differential performed detection - 03/12/18 21:20 Blood monocytes/100 leukocytes 0 % NRG Manual blood segmented neutrophils/100 leukocytes 95 % NRG Blood band neutrophils/100 leukocytes 0 % NRG Manual blood lymphocytes/100 leukocytes 5 % NRG Manual eosinophils/100 leukocytes in nose 0 % NRG Manual blood basophils/100 leukocytes 0 % NRG Blood anisocytosis detection by light microscopy SLIGHT NRG Blood macrocytes detection by light microscopy SLIGHT NRG Serum or plasma lithium measurement (moles/volume) - 03/12/18 21:20 BNP level 62.0 pg/mL <100.0 Beta-hydroxybutyric acid measurement - 03/12/18 21:20 Beta-hydroxybutyric acid measurement 1.12 mmol/L 0.00- 0.27 Bacterial blood culture - 03/12/18 21:20 Bacterial blood culture NG NRG Bacterial blood culture - 03/12/18 22:29 Bacterial blood culture NG NRG Capillary blood glucose measurement by glucometer (mass/volume) - 03/12/18 22: 59 Capillary blood glucose measurement by glucometer (mass/volume) 528 mg/dL 70-110 Capillary blood glucose measurement by glucometer (mass/volume) - 03/13/18 00: 05 Capillary blood glucose measurement by glucometer (mass/volume) 566 mg/dL 70-110 Encounters ACCT No. Visit Date/Time Discharge Status Pt. Type Provider Facility Loc./Unit Complaint [id number] 07/21/2014 14:45:00 07/21/2014 23:59:59 CLS Outpatient EMILEE MCGUIREIssa MCKENNA Zaria [id number] 06/21/2014 14:43:00 06/21/2014 23:59:59 CLS Outpatient MCKENNA HEBERT APRN [id number] 04/23/2014 10:28:00 04/23/2014 23:59:59 CLS Outpatient MCKENNA HEBERT APRN [id number] 04/23/2014 10:28:00 04/23/2014 23:59:59 CLS Outpatient MCKENNA HEBERT APRN [id number] 03/03/2014 10:09:00 03/03/2014 23:59:59 CLS Outpatient MCKENNA HEBERT APRN [id number] 02/19/2014 10:28:00 02/19/2014 23:59:59 CLS Outpatient MCKENNA HEBERT APRN [id number] 02/01/2014 10:22:00 02/01/2014 23:59:59 CLS Outpatient MCKENNA HEBERT APRN [id number] 01/08/2014 11:26:00 01/08/2014 23:59:59 CLS Outpatient GIACOMO SANDOVAL MD [id number] 12/30/2013 15:01:00 12/30/2013 23:59:59 CLS Outpatient MCKENNA HEBERT APRN [id number] 12/30/2013 15:01:00 12/30/2013 23:59:59 CLS Outpatient MCKENNA HEBERT APRN [id number] 12/04/2013 09:15:00 12/04/2013 23:59:59 CLS Outpatient MCKENNA HEBERT APRN [id number] 11/27/2013 12:11:00 11/27/2013 23:59:59 CLS Outpatient MCKENNA HEBERT APRN [id number] 11/27/2013 12:11:00 11/27/2013 23:59:59 CLS Outpatient MCKENNA HEBERT APRN [id number] 09/28/2013 09:05:00 09/28/2013 23:59:59 CLS Outpatient MCKENNA HEBERT APRN [id number] 09/09/2013 17:41:00 09/09/2013 23:59:59 CLS Outpatient GIACOMO SANDOVAL MD [id number] 08/28/2013 09:44:00 08/28/2013 23:59:59 CLS Outpatient MCKENNA HEBERT APRN [id number] 07/06/2013 15:21:00 07/06/2013 23:59:59 CLS Outpatient MCKENNA HEBERT APRN [id number] 06/22/2013 15:15:00 06/22/2013 23:59:59 CLS Outpatient GIACOMO SANDOVAL MD [id number] 06/22/2013 15:15:00 06/22/2013 23:59:59 CLS Outpatient GIACOMO SANDOVAL MD [id number] 05/13/2013 13:11:00 05/13/2013 23:59:59 CLS Outpatient MCKENNA HEBERT APRN [id number] 04/27/2013 09:15:00 04/27/2013 23:59:59 CLS Outpatient MCKENNA HEBERT APRN [id number] 03/30/2013 09:20:00 03/30/2013 23:59:59 CLS Outpatient MCKENNA HEBERT APRN [id number] 03/30/2013 09:20:00 03/30/2013 23:59:59 CLS Outpatient MCKENNA HEBERT APRN [id number] 03/04/2013 15:11:00 03/04/2013 23:59:59 CLS Outpatient MILEY FUNES APRN [id number] 03/02/2013 08:06:00 03/02/2013 23:59:59 CLS Outpatient GIACOMO SANDOVAL MD [id number] 02/04/2013 09:41:00 02/04/2013 23:59:59 CLS Outpatient ZAINA HURTADO DO [id number] 01/22/2013 09:52:00 01/22/2013 23:59:59 CLS Outpatient JONNIE ADORNO MD [id number] 12/26/2012 09:37:00 12/26/2012 23:59:59 CLS Outpatient MCKENNA HEBERT APRN [id number] 12/26/2012 09:37:00 12/26/2012 23:59:59 CLS Outpatient MCKENNA HEBERT APRN [id number] 06/20/2012 09:05:00 06/20/2012 23:59:59 CLS Outpatient [id number] 06/04/2012 09:15:00 06/04/2012 23:59:59 CLS Outpatient [id number] 05/20/2012 14:04:00 05/20/2012 23:59:59 CLS Outpatient MCKENNA HEBERT APRN [id number] 05/07/2012 08:50:00 05/07/2012 23:59:59 CLS Outpatient [id number] 12/08/2012 09:09:00 Document Registration [id number] 10/29/2012 11:49:00 Document Registration [id number] 10/01/2012 09:12:00 Document Registration [id number] 09/18/2012 07:34:00 Document Registration [id number] 09/09/2012 09:07:00 Document Registration [id number] 09/03/2012 07:48:00 Document Registration [id number] 08/19/2012 09:37:00 Document Registration [id number] 08/15/2012 09:23:00 Document Registration [id number] 07/16/2012 11:03:00 Document Registration [id number] 12/09/2016 22:06:00 Document Registration [id number] 03/28/2018 14:20:00 03/28/2018 23:59:59 CLS Outpatient MCKENNA HEBERT APRN [facility] [id number] 12/07/2016 12:00:00 Document Registration [id number] 03/12/2018 21:09:00 03/13/2018 01:14:00 DIS Emergency PIETER RAMSEY, MIRTA Enciso [facility] ER CHEST PAIN [id number] 12/10/2017 13:05:00 12/27/2017 16:01:00 DIS Outpatient MCKENNA HEBERT [facility] REHAB S/P L BKA [id number] 12/18/2017 19:35:00 12/18/2017 23:47:00 DIS Emergency ARLETTE DURÁN MD [facility] ER SOA [id number] 03/21/2017 12:31:00 03/21/2017 23:59:59 CLS Outpatient GUNNER, LORETTA R PATIENT TRANSPORT ORDERLY [facility] WOUNDCARE [id number] 03/14/2017 12:44:00 03/14/2017 23:59:59 CLS Outpatient GUNNER LORETTA R PATIENT TRANSPORT ORDERLY [facility] WOUND[facility] [id number] 03/07/2017 12:46:00 03/07/2017 23:59:59 CLS Outpatient GUNNER, LORETTA R PATIENT TRANSPORT ORDERLY [facility] WOUND[facility] [id number] 02/28/2017 13:19:00 02/28/2017 23:59:59 CLS Outpatient GUNNER, LORETTA R PATIENT TRANSPORT ORDERLY [facility] WOUND[facility] [id number] 02/14/2017 13:13:00 02/14/2017 23:59:59 CLS Outpatient GUNNER, LORETTA R PATIENT TRANSPORT ORDERLY [facility] WOUND[facility] [id number] 02/07/2017 13:15:00 02/07/2017 23:59:59 CLS Outpatient GUNNER, LORETTA R PATIENT TRANSPORT ORDERLY [facility] WOUND[facility] [id number] 01/31/2017 13:25:00 01/31/2017 23:59:59 CLS Outpatient GUNNER, LORETTA R PATIENT TRANSPORT ORDERLY Via [facility] WOUNDCARE [id number] 01/24/2017 12:49:00 01/24/2017 23:59:59 CLS Outpatient GUNNER, LORETTA R PATIENT TRANSPORT ORDERLY Via [facility] WOUND[facility] [id number] 01/17/2017 12:42:00 01/17/2017 23:59:59 CLS Outpatient GUNNER, LORETTA R PATIENT TRANSPORT ORDERLY Via [facility] WOUNDC[facility] [id number] 01/15/2017 12:22:00 01/15/2017 23:59:59 CLS Outpatient ALDA FERRARO Via [facility] CARD I51.7 [id number] 01/10/2017 12:56:00 01/10/2017 23:59:59 CLS Outpatient GUNNER LORETTA R PATIENT TRANSPORT ORDERLY Via [facility] WOUNDCARE [id number] 12/27/2016 13:14:00 12/27/2016 23:59:59 CLS Outpatient GUNNER, LORETTA R PATIENT TRANSPORT ORDERLY Via [facility] WOUND[facility] [id number] 12/25/2016 00:11:00 12/25/2016 23:59:59 CLS Preadmit GUNNER LORETTA R PATIENT TRANSPORT ORDERLY Via [facility] RIGHT FOOT WOUND [id number] 09/26/2016 12:45:00 12/24/2016 00:01:00 DIS Outpatient GUNNER LORETTA R PATIENT TRANSPORT ORDERLY Via [facility] RIGHT FOOT WOUND [id number] 12/20/2016 12:22:00 12/20/2016 23:59:59 CLS Outpatient GUNNER, LORETTA R PATIENT TRANSPORT ORDERLY Via [facility] WOUND[facility] [id number] 12/13/2016 13:08:00 12/13/2016 23:59:59 CLS Outpatient GUNNER, LORETTA R PATIENT TRANSPORT ORDERLY Via [facility] WOUND[facility] [id number] 12/06/2016 13:04:00 12/06/2016 23:59:59 CLS Outpatient GUNNER, LORETTA R PATIENT TRANSPORT ORDERLY Via [facility] WOUND[facility] [id number] 11/29/2016 13:16:00 11/29/2016 23:59:59 CLS Outpatient GUNNER, LORETTA R PATIENT TRANSPORT ORDERLY Via [facility] WOUND[facility] [id number] 11/22/2016 12:50:00 11/22/2016 23:59:59 CLS Outpatient GUNNER, LORETTA R PATIENT TRANSPORT ORDERLY Via [facility] WOUND[facility] [id number] 11/15/2016 13:47:00 11/15/2016 23:59:59 CLS Outpatient GUNNER, LORETTA R PATIENT TRANSPORT ORDERLY Via [facility] WOUND[facility] [id number] 11/01/2016 13:27:00 11/01/2016 23:59:59 CLS Outpatient PRAVEENA MARTINOIssa Chakrabotry APRN Via [facility] WOUND[facility] [id number] 10/18/2016 13:18:00 10/29/2016 16:00:00 DIS Outpatient PRAVEENA MARTINOIssa Chakraborty APRN Via [facility] WOUND[facility] [id number] 09/13/2016 13:06:00 09/17/2016 00:01:00 DIS Outpatient PRAVEENA MARTINOIssa Chakraborty APRN Via [facility] WOUND[facility] [id number] 07/24/2016 07:16:00 07/24/2016 17:15:00 DIS Outpatient ALDA FERRARO Via [facility] CATH PVD,LEG DISCOMFORT, CAD,CKD,PAD,DM [id number] 06/25/2016 15:43:00 06/25/2016 23:59:59 CLS Outpatient VIRGILIO RAMSEY, PIETER Lopez [facility] RAD TYPE 2 DIABETES, END STAGE RENAL DISEASE [id number] 03/27/2016 14:14:00 04/30/2016 08:45:00 DIS Outpatient MCKENNA HEBERT Via [facility] REHAB S/P L BKA [id number] 04/23/2016 17:40:00 04/23/2016 23:59:59 CLS Outpatient VIKKI KWOK MD Via [facility] HH CELLULITIS RIGHT FOOT [id number] 04/03/2016 20:25:00 04/04/2016 01:00:00 DIS Emergency LORI PENALOZA DO Via [facility] ER FOOT SORE/SWELLING [id number] 09/30/2015 23:48:00 10/02/2015 23:31:00 DIS Inpatient ZAINA HURTADO DO Via [facility] ICU CP;UNCONTROLLED DM;ESRD ON DIALYSIS;CAD [id number] 04/22/2015 21:23:00 04/23/2015 01:38:00 DIS Emergency MCKENNA BARRON DO Via [facility] ER CP [id number] 03/23/2015 06:28:00 03/23/2015 08:57:00 DIS Emergency VERA HERNÁNDEZ MD Via [facility] ER NAUSEA VOMITING [id number] 03/20/2015 14:47:00 03/20/2015 19:12:00 DIS Emergency ROMANA BRAN [facility] ER L LEG PAIN/FALL [id number] 01/14/2015 21:55:00 01/15/2015 13:40:00 DIS Inpatient ZAINA HURTADO DO Via [facility] CSD CHEST PAIN;UNCONTROLLED HTN AND DIABETES; [id number] 01/14/2015 09:37:00 01/14/2015 11:35:00 DIS Emergency ARLETTE DURÁN MD Via [facility] ER CHEST PAIN [id number] 11/08/2014 21:53:00 11/09/2014 01:57:00 DIS Emergency ARLETTE DURÁN MD Via [facility] ER SOA [id number] 10/19/2014 05:50:00 10/19/2014 09:30:00 DIS Emergency ARLETTE DURÁN MD Via [facility] ER SOB [id number] 08/01/2014 20:55:00 08/01/2014 23:05:00 DIS Emergency MIRTA STAPLETON MD Via [facility] ER SOB [id number] 07/31/2014 21:27:00 07/31/2014 23:06:00 DIS Emergency LORI PENALOZA DO K Via [facility] ER CHEST PAIN [id number] 07/09/2014 20:58:00 07/10/2014 00:25:00 DIS Emergency LORI PENALOZA DO K Via [facility] ER L ARM PAIN VOMITING [id number] 04/10/2014 05:41:00 04/10/2014 06:53:00 DIS Emergency VERA HERNÁNDEZ MD Via [facility] ER SOA;CHEST PAIN WHEN BREATHING [id number] 11/05/2013 21:40:00 11/21/2013 09:30:00 DIS Inpatient FRANCOISE ODOM MD [facility] IRF WEAKNESS,BKA [id number] 10/14/2013 20:38:00 10/15/2013 11:15:00 DIS Outpatient KATHRINE RAMSEY, BARON Lane [facility] CATH GANGREEN LEFT FORE FOOT [id number] 10/01/2013 07:13:00 10/01/2013 08:55:00 DIS Emergency TANVIR BOSS MD Via [facility] ER SOA [id number] 07/08/2013 12:47:00 07/08/2013 15:39:00 DIS Emergency TREMAINE TOBARLORI Via [facility] ER LOW BLOOD SUGAR [id number] 06/14/2013 00:58:00 06/19/2013 14:50:00 DIS Inpatient ZAINA HURTADO DO Via [facility] 4TH PNEUMONIA;HYPOXIA;ASTHMA EXACERBATION; [id number] 03/05/2013 08:08:00 03/05/2013 23:59:59 CLS Outpatient [id number] 12/29/2012 13:49:00 12/29/2012 16:00:00 DIS Emergency CRYSTAL MATTA APRN [facility] ER HYPOGLYCEMIA [id number] 11/14/2012 23:55:00 11/19/2012 13:05:00 DIS Inpatient LORI RAMSEY, GIACOMO Del Rosario Via [facility] 4TH ACUTE ASTHMA EXACERBATION [id number] 10/30/2012 09:25:00 10/30/2012 23:59:59 CLS Outpatient [id number] 10/07/2012 13:25:00 10/07/2012 23:59:59 CLS Outpatient [id number] 08/15/2012 19:03:00 08/15/2012 21:28:00 DIS Emergency [id number] 04/10/2014 05:41:00 Document Registration [id number] 06/09/2012 21:55:00 Document Registration [id number] 04/21/2012 23:40:00 Document Registration [id number] 04/22/2011 21:11:00 Document Registration [id number] 04/09/2011 19:09:00 Document Registration [id number] 04/05/2011 13:32:00 Document Registration [id number] 03/19/2011 10:57:00 Document Registration [id number] 02/26/2011 11:49:00 Document Registration [id number] 02/26/2011 11:44:00 Document Registration [id number] 01/12/2011 00:00:00 Document Registration [id number] 08/31/2010 12:47:00 Document Registration [id number] 08/27/2010 07:40:00 Document Registration [id number] 08/25/2010 21:07:00 Document Registration [id number] 05/16/2010 02:15:00 Document Registration [id number] 04/11/2010 16:35:00 Document Registration [id number] 08/27/2009 22:17:00 Document Registration [id number] 11/08/2014 21:54:03 ACT Document Registration [id number] 11/12/2016 14:08:00 Document Registration
[2018-04-08] MEDS ORDERED: RT-ALBUTEROL SULF 2.5 MG/3 ML PRE-MIX VIAL INH STA (01:44)
[2018-04-08] MEDS ORDERED: inSUlin (REGULAR) HUMAN 1 UNIT/0.01 ML (CHARGE PER UNIT) IV ONE (01:45)
[2018-04-08] MEDS ORDERED: SOD POLYSTERENE 15 GM/60 ML (KAYEXALATE) UNIT DOSE PO ONE (01:45)
[2018-04-08] MEDS ORDERED: CALCIUM CHLORIDE 1 GM/10 ML (IMS) SYR IV ONE (01:45)
[2018-04-08] MEDS ORDERED: RT-ALBUTEROL SULF 2.5 MG/3 ML PRE-MIX VIAL ONE (01:57)
[2018-04-08 02:36] VITALS: BP 140/117
--- NOTE | 2018-04-08 06:56 | Diagnostic Imaging Report ---
INDICATION: Renal failure, shortness of breath COMPARISON: 03/12/2018 FINDINGS: Single view of the chest demonstrates stable cardiac enlargement with slight central vascular congestion. There is no pneumothorax or large effusion. Osseous structures are stable. IMPRESSION: Cardiac enlargement with slight central vascular congestion. No significant change. Dictated by: Dictated on workstation # [id number]
== END 2018-04-08 02:36 | disposition home or self-care (01) ==
LOC: EDUNIT# 00:44 → ER 00:45
DX: R06.02 Shortness of breath (principal); E11.22 Type 2 diabetes mellitus with diabetic chronic kidney disease; I12.0 Hypertensive chronic kidney disease with stage 5 chronic kidney disease or end stage renal disease; N18.6 End stage renal disease; R25.9 Unspecified abnormal involuntary movements; J43.9 Emphysema, unspecified; I25.10 Atherosclerotic heart disease of native coronary artery without angina pectoris; E78.00 Pure hypercholesterolemia, unspecified; E11.51 Type 2 diabetes mellitus with diabetic peripheral angiopathy without gangrene; I73.9 Peripheral vascular disease, unspecified; E11.10 Type 2 diabetes mellitus with ketoacidosis without coma; G43.909 Migraine, unspecified, not intractable, without status migrainosus; Z96.652 Presence of left artificial knee joint; Z99.2 Dependence on renal dialysis; Z98.51 Tubal ligation status; Z98.890 Other specified postprocedural states; Z93.0 Tracheostomy status
CPT/HCPCS: 36415; 71045; 80053; 80162; 82150; 82962; 83605; 83690; 83735; 84484; 85025; 85610; 85730; 87040; 87804; 93005; 93041; 94640; 96374; 96375

== ENCOUNTER 2018-04-15 07:27 | Emergency (ER) | payer MEDICARE, MEDICAID ==
[~2018-04-15] VITALS: Ht 162.6 cm; Wt 136.1 kg
[2018-04-15] MEDS ORDERED: RT-ALBUTEROL/IPRATROPIUM 3 ML (DUONEB) VIAL INH ONE (08:00)
[2018-04-15 08:06] LABS: BASOPHILS % (AUTO) 0 % (0-10); EOSINOPHILS # (AUTO) 0.2 10^3/uL (0.0-0.3); EOSINOPHILS % (AUTO) 2 % (0-10); HEMATOCRIT 34 % (35-52); HEMOGLOBIN 9.8 G/DL (11.5-16.0); LYMPHOCYTES # (AUTO) 2.1 X 10^3 (1.0-4.0); LYMPHOCYTES % (AUTO) 27 % (12-44); MEAN CORPUSCULAR HEMOGLOBIN 31 PG (25-34); MEAN CORPUSCULAR HGB CONC 29 G/DL (32-36); MEAN CORPUSCULAR VOLUME 106 FL (80-99); MEAN PLATELET VOLUME 12.7 FL (7.4-10.4); MONOCYTES # (AUTO) 1.1 X 10^3 (0.0-1.0); MONOCYTES % (AUTO) 14 % (0-12); NEUTROPHILS # (AUTO) 4.5 X 10^3 (1.8-7.8); NEUTROPHILS % (AUTO) 57 % (42-75); PLATELET COUNT 225 10^3/uL (130-400); RED BLOOD COUNT 3.21 10^6/uL (4.35-5.85)
[2018-04-15 08:18] LABS: ALBUMIN 3.4 GM/DL (3.2-4.5); BILIRUBIN,TOTAL 0.3 MG/DL (0.1-1.0); CALCIUM 9.2 MG/DL (8.5-10.1); CREATININE SERUM 10.05 MG/DL (0.60-1.30); POTASSIUM 4.8 MMOL/L (3.6-5.0); TOTAL PROTEIN 6.2 GM/DL (6.4-8.2)
--- NOTE | 2018-04-15 08:24 | Diagnostic Imaging Report ---
INDICATION: Hypotension COMPARISON: 04/08/2018 FINDINGS: Cardiomegaly and vascular congestion are present. There is some perihilar infiltrates or edema unchanged. Body habitus limits radiographic penetrability and decreases sensitivity. IMPRESSION: Limited by body habitus. Cardiomegaly, vascular congestion and perihilar pulmonary opacities unchanged. Dictated by: Dictated on workstation # [id number]
--- OUTSIDE RECORDS SUMMARY | 2018-04-15 09:06 | XMS REPORT | Clinical Summary ---
Author Author [facility] Organization [facility] Address Unknown Phone Unavailable Care Team Providers Care Administrative Asst Name Role Phone Mario Carver MD PCP Unavailable Source Comments Some departments are not documenting in the electronic medical record. If you do not see the information that you expected, contact Release of Information in the Health Information Management department at [phone] for further assistance in locating additional records.[facility] Allergies Not on File Medications Not on [...] AND B MEDICARE MEDICARE xxxxxxxxxx Medicare TRANSPLANT Thea Gill Transplant Self [address] (Home) [place] [address] Advance Directives Patient has advance care planning documents on file. For more information, please contact: [facility] [address] [place] [address]
--- NOTE | 2018-04-15 11:23 | ED Respiratory ---
General Chief Complaint: Respiratory Problems Stated Complaint: HYPOTENSION Nursing Triage Note: pt presents to ed via EMS from [facility] where she was about to get her dialysis treatment and her intial vs for them were 02 69% on 4 l, BP 99/31, HR 73, BS 301. Pt denies SOA and is 98 % on 6 L nc. Source: patient, family, EMS Exam Limitations: no limitations History of Present Illness Date Seen by Provider: Apr 15, 2018 Time Seen by Provider: 07:30 Initial Comments Patient presents to ER by EMS from outpatient dialysis where she presented but did not start dialysis because they noted her to have a oxygen saturation of the 60s. She was not tachycardic. She felt short of breath. As soon as her family put her back on her own oxygen at 4 L however her shortness of breath resolved promptly. She's not had any fevers nausea vomiting chills cough rash diarrhea. She does have a history of diabetes and asthma. She has albuterol at home but she's not been using it since she's not needed it for the past several weeks. She denies any wheezing. Allergies and Home Medications Allergies Coded Allergies: aloe vera (Verified Allergy, Severe, RASH, 11/05/13) flu vaccine [id number](4 yr+) (Verified Allergy, Mild, HIVES, 04/22/12) adhesive (Verified Allergy, Unknown, 05/01/07) Uncoded Allergies: TAPE (Allergy, Mild, 05/16/10) Home Medications Amlodipine Besylate 10 Mg Tablet, 10 MG PO HS, (Reported) Amoxicillin/Potassium Clav 1 Each Tablet, 1 TAB PO Q8H, (Reported) 14 DAY SUPPLY FILLED 07-06-16 Aspirin 81 Mg Tablet.dr, 81 MG PO DAILY, (Reported) Clopidogrel Bisulfate 75 Mg Tablet, 75 MG PO DAILY Prescribed by: СВЕТЛАНА HOWE on 07/24/16 1217 Doxycycline Monohydrate 100 Mg Capsule, 100 MG PO BID, (Reported) 14 DAY SUPPLY FILLED 07-06-16 Fluticasone Propionate 16 Gm [place].susp, 1 SPRAY NA DAILY PRN for ALLERGIES, ( Reported) Furosemide 40 Mg Tablet, 40 MG PO DAILY, (Reported) Gabapentin 300 Mg Capsule, 300 MG PO TID, (Reported) Hydrocodone/Acetaminophen 1 Each Tablet, 1 TAB PO Q6H PRN for PAIN-MODERATE, ( Reported) Hydroxyzine HCl 25 Mg Tablet, 25 MG PO TID PRN for an, (Reported) Insulin Glargine,Hum.rec.anlog 100 Unit/1 Ml Insuln.pen, 30 UNITS SQ HS, ( Reported) Insulin Lispro 100 Unit/1 Ml Insuln.pen, SQ HS, (Reported) 100-200 = 12-16 UNITS ABOVE 300 = 20 UNITS ABOVE 400 = CALL Isosorbide Mononitrate 30 Mg Tab.er.24h, 30 MG PO HS, (Reported) Loratadine 10 Mg Tablet, 10 MG PO HS, (Reported) Metoprolol Tartrate 100 Mg Tablet, 100 MG PO BID, (Reported) Montelukast Sodium 10 Mg Tablet, 10 MG PO HS, (Reported) Naproxen 375 Mg Tablet, 375 MG PO BID PRN for PAIN-MILD, (Reported) Ondansetron 8 Mg Tab.rapdis, 8 MG PO Q8H PRN for NAUSEA/VOMITING-1ST LINE, ( Reported) Rosuvastatin Calcium 20 Mg Tablet, 20 MG PO HS, (Reported) Sevelamer Carbonate 800 Mg Tablet, 3,200 MG PO BID WITH MEALS, (Reported) TAKES 4 (800MG) TABLETS WITH BREAKFAST AND SUPPER AND TAKES 2 (800MG) TABLETS WITH SNACK Sevelamer Carbonate 800 Mg Tablet, 1,600 MG PO DAILY WITH SNACK, (Reported) TAKES 2 (800MG) TABLETS Vit B Cmplx 3/FA/Vit C/Biotin 1 Each Tablet, 1 TAB PO DAILY, (Reported) Patient Home Medication List Home Medication List Reviewed: Yes Review of Systems Review of Systems Constitutional: No chills, No fever, No malaise EENTM: No ear discharge, No ear pain Respiratory: No cough, No hemoptysis, No phlegm; short of breath; No wheezing Cardiovascular: No chest pain, No palpitations Gastrointestinal: No abdominal pain, No constipation; diarrhea (last weekend); No nausea, No vomiting Genitourinary: No discharge, No dysuria Musculoskeletal: No back pain, No joint pain Past Lakmayx-Bmkqgt-Quphmg Hx Patient Social History Alcohol Use: Denies Use Recreational Drug Use: No Smoking Status: Never a Smoker 2nd Hand Smoke Exposure: Yes Recent Foreign Travel: No Contact w/Someone Who Travel: No Recent Infectious Disease Expo: No Recent Hopitalizations: No Physical Abuse: No Sexual Abuse: No Mistreated: No Fear: No Immunizations Up To Date Tetanus Booster (TDap): Less than 5yrs PED Vaccines UTD: No Date of Pneumonia Vaccine: Sep 02, 2013 Seasonal Allergies Seasonal Allergies: Yes Past Medical History Surgeries: Yes (DIALYSIS AV FISTULA/GRAFT LEFT UPPER ARM, LEFT BKA) Amputation, Arteriovenous Shunt, Cardiac, Section, Dialysis, Hysterectomy, Orthopedic, Tracheostomy, Vascular Surgery Respiratory: Yes (TRACHEOSTOMY IN PAST--PT STATES DUE TO "DIABETIC COMA", O2 AT 4L/NC) Asthma, COPD, Emphysema Currently Using CPAP: No Currently Using BIPAP: No Cardiac: Yes Chronic Edema/Swelling, Coronary Artery Disease, High Cholesterol, Hypertension , Peripheral Vascular Neurological: Yes Headaches /Migraines, Neuropathy 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 Disorders: No 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: Tubal Ligation Sexually Transmitted Disease: No HIV/AIDS: No Renal Failure, Dialysis Gastrointestinal: Yes Chronic Constipation Musculoskeletal: Yes (BILATERAL CARPAL TUNNEL SYMPTOMS; LEFT BKA, LEFT STUMP FRACTURE) Arthritis, Chronic Back Pain, Fractures Endocrine: Yes (DKA IN PAST ) Diabetes, Insulin dep Loss of Vision: Denies Hearing Impairment: Denies, Hard of Hearing Cancer: No Psychosocial: No Integumentary: Yes (DIABETIC ULCERS) Blood Disorders: No Adverse Reaction/Blood Tranf: No Family Medical History Diabetes mellitus Family history: Asthma 09 BROTHER No Family History of: AIDS Abdominal aortic aneurysm Saad's disease Alcoholism Alzheimer's disease Aphasia Arthritis Asthma Cancer of mouth Cardiovascular disease Cataracts Colon cancer Completed stroke Congenital disease Congenital heart disease Coronary thrombosis Cystic fibrosis Deafness or hearing loss Dementia Drug abuse Dysphasia Fibrocystic disease of breast Gastroenteritis Glaucoma Headache disorder Hypercholesterolemia Hypertension Infertility Kidney disease Myocardial infarction Neoplasm Not obtainable due to adoption Osteoporosis Parkinson's disease Prostate cancer Psychosocial problem Respiratory disorder Seizure disorder Severe allergy Thyroid disease Tuberculosis Visual disorder Physical Exam Vital Signs - First Documented 04/15/18 07:55 Temp 98.7 Pulse 70 Resp 28 B/P (MAP) 112/47 (68) Pulse Ox 98 O2 Delivery Nasal Cannula O2 Flow Rate 6.00 Capillary Refill : Less Than 3 Seconds Height: 5'4.00" Weight: 300lbs. 0.0oz. 136.960786ot; 53.4 BMI Method:Stated General Appearance: obese, other (chronically ill) Eyes: Bilateral Eye Normal Inspection, Bilateral Eye PERRL, Bilateral Eye EOMI HEENT: PERRL/EOMI, normal ENT inspection, TMs normal, pharynx normal Neck: non-tender, full range of motion, normal inspection Respiratory: chest non-tender, lungs clear, no respiratory distress, no accessory muscle use, decreased breath sounds, other (O2 at 4 L per nasal cannula) Cardiovascular: normal peripheral pulses, regular rate, rhythm, other (chronic edema) Gastrointestinal: normal bowel sounds, non tender, soft Extremities: other (Below the knee left amputation) Neurologic/Psychiatric: alert, normal mood/affect, oriented x 3 Progress/Results/Core Measures Suspected Sepsis Recent Fever Within 48 Hours: No Infection Criteria Present: None New/Unexplained Altered Menta: No Sepsis Screen: No Definite Risk SIRS Temperature:98.7 Pulse: 70 Respiratory Rate: 28 Laboratory Tests 04/15/18 07:46: White Blood Count 8.0 Blood Pressure 112 /47 Mean: 68 Laboratory Tests 04/15/18 07:46: Creatinine 10.05H, Platelet Count 225, Total Bilirubin 0.3 Results/Orders Lab Results Laboratory Tests Test 04/15/18 07:46 Range/Units White Blood Count 8.0 4.3-11.0 10^3/uL Red Blood Count 3.21 L 4.35-5.85 10^6/uL Hemoglobin 9.8 L 11.5-16.0 G/DL Hematocrit 34 L 35-52 % Mean Corpuscular Volume 106 H 80-99 FL Mean Corpuscular Hemoglobin 31 25-34 PG Mean Corpuscular Hemoglobin Concent 29 L 32-36 G/DL Red Cell Distribution Width 19.0 H 10.0-14.5 % Platelet Count 225 130-400 10^3/uL Mean Platelet Volume 12.7 H 7.4-10.4 FL Neutrophils (%) (Auto) 57 42-75 % Lymphocytes (%) (Auto) 27 12-44 % Monocytes (%) (Auto) 14 H 0-12 % Eosinophils (%) (Auto) 2 0-10 % Basophils (%) (Auto) 0 0-10 % Neutrophils # (Auto) 4.5 1.8-7.8 X 10^3 Lymphocytes # (Auto) 2.1 1.0-4.0 X 10^3 Monocytes # (Auto) 1.1 H 0.0-1.0 X 10^3 Eosinophils # (Auto) 0.2 0.0-0.3 10^3/uL Basophils # (Auto) 0.0 0.0-0.1 10^3/uL Sodium Level 141 135-145 MMOL/L Potassium Level 4.8 3.6-5.0 MMOL/L Chloride Level 98 98-107 MMOL/L Carbon Dioxide Level 26 21-32 MMOL/L Anion Gap 17 H 5-14 MMOL/L Blood Urea Nitrogen 30 H 7-18 MG/DL Creatinine 10.05 H 0.60-1.30 MG/DL Estimat Glomerular Filtration Rate 4 BUN/Creatinine Ratio 3 Glucose Level 282 H 70-105 MG/DL Calcium Level 9.2 8.5-10.1 MG/DL Corrected Calcium 9.7 8.5-10.1 MG/DL Total Bilirubin 0.3 0.1-1.0 MG/DL Aspartate Amino Transf (AST/SGOT) 16 5-34 U/L Alanine Aminotransferase (ALT/SGPT) 24 0-55 U/L Alkaline Phosphatase 116 40-136 U/L Total Protein 6.2 L 6.4-8.2 GM/DL Albumin 3.4 3.2-4.5 GM/DL Smear Scan Micro Results Microbiology 04/15/18 Influenza Types A,B Antigen (CARI) - Final, Complete My Orders Orders - PATRICK BENTLEY Cbc With Automated Diff (04/15/18 07:45) Comprehensive Metabolic Panel (04/15/18 07:45) Influenza A And B Antigens (04/15/18 07:45) Chest 1 View, Ap/Pa Only (04/15/18 07:45) Albuterol/Ipra Inhalation Soln (Duoneb I (04/15/18 08:00) Svn Small Volume Nebulizer (04/15/18 07:46) Medications Given in ED Current Medications Medications Dose Ordered Sig/Lindy Route Start Time Stop Time Status Last Admin Dose Admin Albuterol/ Ipratropium 3 ml ONCE ONCE INH 04/15/18 08:00 04/15/18 08:01 DC 04/15/18 08:42 3 ML Vital Signs/I&O 04/15/18 07:55 Temp 98.7 Pulse 70 Resp 28 B/P (MAP) 112/47 (68) Pulse Ox 98 O2 Delivery Nasal Cannula O2 Flow Rate 6.00 Capillary Refill : Less Than 3 Seconds Blood Pressure Mean: 68 Progress Note : Time: 11:29 Progress Note Patient's oxygenation was good when she got here 100% on her baseline of 4 L and she stayed in the 9500% range. She says she has no feelings of subjective breathlessness nor she been coughing a lot. No fevers. Her influenza labs are as expected for patient whose due for dialysis. Normally she does her dialysis on Saturday but she missed it on Saturday because she had diarrhea over the weekend. Her diarrhea has resolved and she's been eating and drinking better so the plan was to make up for her dialysis today but she didn't get that done either. She says she's feeling well and after going home and do dialysis tomorrow morning. Her family is going to take her home and be with her. We have offered to try and find her inpatient dialysis with this and probably only and getting her dialysis done about 12 hours sooner and if she did at outpatient. Her family who was accompanying her at the dialysis center says that as soon as they put her on the dialysis center's oxygen her O2 sats went down and she started acting short of breath. He said that he put her back on her own oxygen bottle and her oxygen sats improved significantly so he feels that it's a problem with the O2 supply and not the patient. We have given him return precautions and we will let her go home and complete dialysis tomorrow. Her blood sugars elevated but she is going to go home recheck her sugar eat and take her insulin. Diagnostic Imaging Diagonstic Imaging: Xray Plain Films/CT/US/NM/MRI: chest Comments [facility], [facility]. [place], [place] NAME: VARGAS FISHER [facility] REC#: [id number] PT STATUS: REG ER : 1965 PHYSICIAN: PATRICK BENTLEY MD ADMIT DATE: 04/15/18/ER Draft Date of Exam:04/15/18 CHEST 1 VIEW, AP/PA ONLY INDICATION: Hypotension COMPARISON: 04/08/2018 FINDINGS: Cardiomegaly and vascular congestion are present. There is some perihilar infiltrates or edema unchanged. Body habitus limits radiographic penetrability and decreases sensitivity. IMPRESSION: Limited by body habitus. Cardiomegaly, vascular congestion and perihilar pulmonary opacities unchanged. Dictated on workstation # [id number] Dict: 04/15/18819 Trans: 04/15/1824 [facility] [id number] Interpreted by: FILIBERTO GAN Electronically signed by: Reviewed: Reviewed by Me Departure Impression Primary Impression: ESRD on hemodialysis Additional Impression: Chronic respiratory failure with hypoxia, on home O2 therapy Disposition: HOME, SELF-CARE Condition: Stable Departure-Patient Inst. Decision time for Depature: 11:33 Referrals: [facility] ([place]P/Family) Primary Care Physician Patient Instructions: Oxygen Therapy, Adult (DC) Add. Discharge Instructions: Follow-up with primary care in the next 1-2 weeks. Return to dialysis outpatient tomorrow morning per plan. If you have increasing shortness of breath, coughing or other worrisome symptoms return to the ER promptly. All discharge instructions reviewed with patient and/or family. Voiced understanding. PATRICK BENTLEY Apr 15, 2018 11:23
[2018-04-15 11:57] VITALS: BP 98/43
[2018-04-16] MEDS ORDERED: CHLO500T4 (21:40)
[2018-04-16] MEDS ORDERED: AMIT25TA9 (21:40)
[2018-04-16] MEDS ORDERED: DIGO125T (21:40)
[2018-04-16] MEDS ORDERED: WARF7.5T6 (21:40)
[2018-04-16] MEDS ORDERED: CALC667C10 (21:40)
== END 2018-04-15 11:57 | disposition home or self-care (01) ==
LOC: EDUNIT# 07:27 → ER 07:28
DX: E11.22 Type 2 diabetes mellitus with diabetic chronic kidney disease (principal); I12.0 Hypertensive chronic kidney disease with stage 5 chronic kidney disease or end stage renal disease; N18.6 End stage renal disease; J96.11 Chronic respiratory failure with hypoxia; J43.9 Emphysema, unspecified; G43.909 Migraine, unspecified, not intractable, without status migrainosus; I25.10 Atherosclerotic heart disease of native coronary artery without angina pectoris; E78.00 Pure hypercholesterolemia, unspecified; I73.9 Peripheral vascular disease, unspecified; E11.10 Type 2 diabetes mellitus with ketoacidosis without coma; Z88.7 Allergy status to serum and vaccine; Z91.048 Other nonmedicinal substance allergy status; Z96.652 Presence of left artificial knee joint; Z79.02 Long term (current) use of antithrombotics/antiplatelets; Z87.19 Personal history of other diseases of the digestive system; Z79.4 Long term (current) use of insulin; Z79.82 Long term (current) use of aspirin; Z79.51 Long term (current) use of inhaled steroids; Z77.22 Contact with and (suspected) exposure to environmental tobacco smoke (acute) (chronic); Z98.890 Other specified postprocedural states; Z90.710 Acquired absence of both cervix and uterus; Z93.0 Tracheostomy status; Z99.81 Dependence on supplemental oxygen; Z99.2 Dependence on renal dialysis
CPT/HCPCS: 36415; 71045; 80053; 85025; 87804

== ENCOUNTER 2018-04-16 07:28 | Emergency (ER) | payer MEDICARE, MEDICAID ==
[~2018-04-16] VITALS: Ht 160 cm; Wt 136.5 kg
--- NOTE | 2018-04-16 08:04 | NUR ---
LAB IN ROOM AT THIS TIME DRAWING BLOOD AT THIS TIME
[2018-04-16 08:08] LABS: BASOPHILS # (AUTO) 0.1 10^3/uL (0.0-0.1); BASOPHILS % (AUTO) 1 % (0-10); EOSINOPHILS # (AUTO) 0.2 10^3/uL (0.0-0.3); EOSINOPHILS % (AUTO) 2 % (0-10); HEMATOCRIT 31 % (35-52); HEMOGLOBIN 9.5 G/DL (11.5-16.0); LYMPHOCYTES # (AUTO) 2.3 X 10^3 (1.0-4.0); LYMPHOCYTES % (AUTO) 25 % (12-44); MEAN CORPUSCULAR HEMOGLOBIN 32 PG (25-34); MEAN CORPUSCULAR HGB CONC 30 G/DL (32-36); MEAN CORPUSCULAR VOLUME 104 FL (80-99); MONOCYTES # (AUTO) 1.1 X 10^3 (0.0-1.0); MONOCYTES % (AUTO) 12 % (0-12); NEUTROPHILS # (AUTO) 5.6 X 10^3 (1.8-7.8); NEUTROPHILS % (AUTO) 61 % (42-75); PLATELET COUNT 201 10^3/uL (130-400); RED BLOOD COUNT 3.01 10^6/uL (4.35-5.85); WHITE BLOOD COUNT 9.2 10^3/uL (4.3-11.0)
--- OUTSIDE RECORDS SUMMARY | 2018-04-16 08:17 | XMS REPORT | Clinical Summary ---
Author Author [facility] Organization [facility] Address Unknown Phone Unavailable Care Team Providers Care Teacher Of The Hearing Impaired Name Role Phone Mario Carver MD PCP Unavailable Source Comments Some departments are not documenting in the electronic medical record. If you do not see the information that you expected, contact Release of Information in the Health Information Management department at [phone] for further assistance in locating additional records.[facility] Allergies Not on File Medications Not on [...] Self [address] (Home) [place] [address] Advance Directives Patient has advance care planning documents on file. For more information, please contact: [facility] [address] [place] [address]
--- NOTE | 2018-04-16 08:40 | Diagnostic Imaging Report ---
INDICATION: Hypoxia. Time of Exam: 8:28 AM Correlation is made with prior study one day earlier. The heart is enlarged but stable. There is central congestion but no overt failure. No effusion or pneumothorax is seen. IMPRESSION: Cardiomegaly and central congestion. Dictated by: Dictated on workstation # [id number]
[2018-04-16 08:43] LABS: ALBUMIN 3.2 GM/DL (3.2-4.5); BILIRUBIN,TOTAL 0.4 MG/DL (0.1-1.0); CALCIUM 9.2 MG/DL (8.5-10.1); CREATININE SERUM 10.92 MG/DL (0.60-1.30); POTASSIUM 4.9 MMOL/L (3.6-5.0); TOTAL PROTEIN 5.7 GM/DL (6.4-8.2)
[2018-04-16 08:51] LABS: ABG BASE EXCESS 3.9 MMOL/L (-2.5-2.5); ABG OXYGEN SATURATION 87 % (94-100); ABG PCO2 57 MMHG (35-45); ABG PO2 55 MMHG (79-93); ABG TCO2 31.3 MMOL/L (21.0-31.0)
[2018-04-16 08:51] LABS: MYOGLOBIN SERUM 280.6 NG/ML (10.0-92.0)
[2018-04-16 08:52] LABS: ALLENS TEST YES-POS; INSPIRED O2 4L; VENTILATOR NO
--- NOTE | 2018-04-16 08:53 | ED Respiratory ---
General Chief Complaint: Respiratory Problems Stated Complaint: HYPOXIA Nursing Triage Note: ARRIVED VIA EMS FROM DIALYSIS CENTER. EMS REPORTS HYPOXIA ET PT STATES SHE WAS WEAK AND SHAKING THERE Source: patient, EMS Exam Limitations: no limitations History of Present Illness Date Seen by Provider: Apr 16, 2018 Time Seen by Provider: 07:35 Initial Comments Here with report of shortness of breath, shakiness and hypoxia. Apparently went to dialysis center this morning was found to have these things. She was seen yesterday for the same and ultimately discharged to get dialysis. Everything appears to be worse today. Patient states that she will definitely was that way but is doing better now. Markedly swollen to the right lower extremity. Has left lower extremity BKA. Upper portion of left leg swollen and edematous. Denies nausea or vomiting or chest pain but does report weakness and shortness of air. Timing/Duration: yesterday, getting worse Severity: moderate, severe Prior Episodes/Possible Cause: occasional episodes Modifying Factors: Worse With Activity; Improves With Rest Associated Symptoms: No chest pain/soreness; cough; No fever/chills; nasal congestion, shortness of breath; No sore throat, No wheezing Allergies and Home Medications Allergies Coded Allergies: aloe vera (Verified Allergy, Severe, RASH, 11/05/13) flu vaccine [id number](4 yr+) (Verified Allergy, Mild, HIVES, 04/22/12) adhesive (Verified Allergy, Unknown, 05/01/07) Uncoded Allergies: TAPE (Allergy, Mild, 05/16/10) Home Medications Amlodipine Besylate 10 Mg Tablet, 10 MG PO HS, (Reported) Amoxicillin/Potassium Clav 1 Each Tablet, 1 TAB PO Q8H, (Reported) 14 DAY SUPPLY FILLED 07-06-16 Aspirin 81 Mg Tablet.dr, 81 MG PO DAILY, (Reported) Clopidogrel Bisulfate 75 Mg Tablet, 75 MG PO DAILY Prescribed by: СВЕТЛАНА HOWE on 07/24/16 1217 Doxycycline Monohydrate 100 Mg Capsule, 100 MG PO BID, (Reported) 14 DAY SUPPLY FILLED 07-06-16 Fluticasone Propionate 16 Gm [place].susp, 1 SPRAY NA DAILY PRN for ALLERGIES, ( Reported) Furosemide 40 Mg Tablet, 40 MG PO DAILY, (Reported) Gabapentin 300 Mg Capsule, 300 MG PO TID, (Reported) Hydrocodone/Acetaminophen 1 Each Tablet, 1 TAB PO Q6H PRN for PAIN-MODERATE, ( Reported) Hydroxyzine HCl 25 Mg Tablet, 25 MG PO TID PRN for an, (Reported) Insulin Glargine,Hum.rec.anlog 100 Unit/1 Ml Insuln.pen, 30 UNITS SQ HS, ( Reported) Insulin Lispro 100 Unit/1 Ml Insuln.pen, SQ HS, (Reported) 100-200 = 12-16 UNITS ABOVE 300 = 20 UNITS ABOVE 400 = CALL Isosorbide Mononitrate 30 Mg Tab.er.24h, 30 MG PO HS, (Reported) Loratadine 10 Mg Tablet, 10 MG PO HS, (Reported) Metoprolol Tartrate 100 Mg Tablet, 100 MG PO BID, (Reported) Montelukast Sodium 10 Mg Tablet, 10 MG PO HS, (Reported) Naproxen 375 Mg Tablet, 375 MG PO BID PRN for PAIN-MILD, (Reported) Ondansetron 8 Mg Tab.rapdis, 8 MG PO Q8H PRN for NAUSEA/VOMITING-1ST LINE, ( Reported) Rosuvastatin Calcium 20 Mg Tablet, 20 MG PO HS, (Reported) Sevelamer Carbonate 800 Mg Tablet, 3,200 MG PO BID WITH MEALS, (Reported) TAKES 4 (800MG) TABLETS WITH BREAKFAST AND SUPPER AND TAKES 2 (800MG) TABLETS WITH SNACK Sevelamer Carbonate 800 Mg Tablet, 1,600 MG PO DAILY WITH SNACK, (Reported) TAKES 2 (800MG) TABLETS Vit B Cmplx 3/FA/Vit C/Biotin 1 Each Tablet, 1 TAB PO DAILY, (Reported) Patient Home Medication List Home Medication List Reviewed: Yes Review of Systems Review of Systems Constitutional: see HPI; No chills, No fever EENTM: epistaxis (left near intermittent.), nose congestion Respiratory: No cough; short of breath Cardiovascular: No chest pain; edema Gastrointestinal: No abdominal pain, No nausea, No vomiting Genitourinary: no symptoms reported Musculoskeletal: no symptoms reported Skin: no symptoms reported Psychiatric/Neurological: Denies Headache; Weakness Hematologic/Lymphatic: No Symptoms Reported Immunological/Allergic: no symptoms reported Past [id number] Hx Past Med/Social Hx: Reviewed Nursing Past Med/Soc Hx Patient Social History Alcohol Use: Denies Use Recreational Drug Use: No Smoking Status: Never a Smoker 2nd Hand Smoke Exposure: Yes Recent Foreign Travel: No Contact w/Someone Who Travel: No Recent Infectious Disease Expo: No Recent Hopitalizations: Yes (04/15/18) Immunizations Up To Date Tetanus Booster (TDap): Less than 5yrs PED Vaccines UTD: No Date of Pneumonia Vaccine: Sep 02, 2013 Seasonal Allergies Seasonal Allergies: Yes Past Medical History Surgeries: Yes (DIALYSIS AV FISTULA/GRAFT LEFT UPPER ARM, LEFT BKA) Amputation, Arteriovenous Shunt, Cardiac, Section, Dialysis, Hysterectomy, Orthopedic, Tracheostomy, Vascular Surgery Respiratory: Yes (TRACHEOSTOMY IN PAST--PT STATES DUE TO "DIABETIC COMA", O2 AT 4L/NC) Asthma, COPD, Emphysema Currently Using CPAP: No Currently Using BIPAP: No Cardiac: Yes Chronic Edema/Swelling, Coronary Artery Disease, High Cholesterol, Hypertension , Peripheral Vascular Neurological: Yes Headaches /Migraines, Neuropathy 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 Sexually Transmitted Disease: No HIV/AIDS: No Renal Failure, Dialysis Gastrointestinal: Yes Chronic Constipation Musculoskeletal: Yes (BILATERAL CARPAL TUNNEL SYMPTOMS; LEFT BKA, LEFT STUMP FRACTURE) Arthritis, Chronic Back Pain, Fractures Endocrine: Yes (DKA IN PAST ) Diabetes, Insulin dep Loss of Vision: Denies Hearing Impairment: Denies, Hard of Hearing Cancer: No Psychosocial: No Integumentary: Yes (DIABETIC ULCERS) Blood Disorders: No Adverse Reaction/Blood Tranf: No Family Medical History Reviewed Nursing Family Hx Diabetes mellitus Family history: Asthma 09 BROTHER No Family History of: AIDS Abdominal aortic aneurysm [place]'s disease Alcoholism Alzheimer's disease Aphasia Arthritis Asthma Cancer of mouth Cardiovascular disease Cataracts Colon cancer Completed stroke Congenital disease Congenital heart disease Coronary thrombosis Cystic fibrosis Deafness or hearing loss Dementia Drug abuse Dysphasia Fibrocystic disease of breast Gastroenteritis Glaucoma Headache disorder Hypercholesterolemia Hypertension Infertility Kidney disease Myocardial infarction Neoplasm Not obtainable due to adoption Osteoporosis Parkinson's disease Prostate cancer Psychosocial problem Respiratory disorder Seizure disorder Severe allergy Thyroid disease Tuberculosis Visual disorder Physical Exam Vital Signs - First Documented 04/16/18 04/16/18 07:28 07:30 Temp 97.9 Pulse 58 Resp 24 B/P (MAP) 127/114 (118) Pulse Ox 81 O2 Delivery Room Air O2 Flow Rate 4.00 Capillary Refill : Less Than 3 Seconds Height: 5'3.00" Weight: 301lbs. 0.0oz. 136.228452mp; 53.4 BMI Method:Stated General Appearance: WD/WN, no apparent distress HEENT: PERRL/EOMI, pharynx normal Neck: full range of motion, supple Respiratory: crackles; No wheezing Cardiovascular: regular rate, rhythm, no murmur Gastrointestinal: non tender, soft Extremities: pedal edema (4+ edema to bilateral lower extremities although left has BKA.) Neurologic/Psychiatric: alert, oriented x 3 Skin: warm/dry, ecchymosis (multiple areas of ecchymosis to the upper extremities) Progress/Results/Core Measures Suspected Sepsis Recent Fever Within 48 Hours: No Infection Criteria Present: None New/Unexplained Altered Menta: No Sepsis Screen: No Definite Risk SIRS Temperature:97.9 Pulse: 58 Respiratory Rate: 24 Laboratory Tests 04/16/18 08:05: White Blood Count 9.2 Blood Pressure 127 /114 Mean: 118 Laboratory Tests 04/16/18 08:05: Platelet Count 201 04/16/18 08:18: Creatinine 10.92#H, Total Bilirubin 0.4 Results/Orders Lab Results Laboratory Tests Test 04/16/18 08:05 04/16/18 08:18 04/16/18 08:39 Range/Units White Blood Count 9.2 4.3-11.0 10^3/uL Red Blood Count 3.01 L 4.35-5.85 10^6/uL Hemoglobin 9.5 L 11.5-16.0 G/DL Hematocrit 31 L 35-52 % Mean Corpuscular Volume 104 H 80-99 FL Mean Corpuscular Hemoglobin 32 25-34 PG Mean Corpuscular Hemoglobin Concent 30 L 32-36 G/DL Red Cell Distribution Width 20.0 H 10.0-14.5 % Platelet Count 201 130-400 10^3/uL Mean Platelet Volume 12.0 H 7.4-10.4 FL Neutrophils (%) (Auto) 61 42-75 % Lymphocytes (%) (Auto) 25 12-44 % Monocytes (%) (Auto) 12 0-12 % Eosinophils (%) (Auto) 2 0-10 % Basophils (%) (Auto) 1 0-10 % Neutrophils # (Auto) 5.6 1.8-7.8 X 10^3 Lymphocytes # (Auto) 2.3 1.0-4.0 X 10^3 Monocytes # (Auto) 1.1 H 0.0-1.0 X 10^3 Eosinophils # (Auto) 0.2 0.0-0.3 10^3/uL Basophils # (Auto) 0.1 0.0-0.1 10^3/uL Sodium Level 143 135-145 MMOL/L Potassium Level 4.9 3.6-5.0 MMOL/L Chloride Level 102 98-107 MMOL/L Carbon Dioxide Level 24 21-32 MMOL/L Anion Gap 17 H 5-14 MMOL/L Blood Urea Nitrogen 38 H 7-18 MG/DL Creatinine 10.92 #H 0.60-1.30 MG/DL Estimat Glomerular Filtration Rate 4 BUN/Creatinine Ratio 3 Glucose Level 148 H 70-105 MG/DL Calcium Level 9.2 8.5-10.1 MG/DL Corrected Calcium 9.8 8.5-10.1 MG/DL Magnesium Level 2.0 1.8-2.4 MG/DL Total Bilirubin 0.4 0.1-1.0 MG/DL Aspartate Amino Transf (AST/SGOT) 15 5-34 U/L Alanine Aminotransferase (ALT/SGPT) 23 0-55 U/L Alkaline Phosphatase 110 40-136 U/L Myoglobin 280.6 H 10.0-92.0 NG/ML Troponin I 0.042 <0.028 NG/ML C-Reactive Protein High Sensitivity 1.16 H 0.00-0.50 MG/DL B-Type Natriuretic Peptide 229.1 H <100.0 PG/ML Total Protein 5.7 L 6.4-8.2 GM/DL Albumin 3.2 3.2-4.5 GM/DL Blood Gas Puncture Site RR Blood Gas Patient Temperature 98.0 Arterial Blood pH 7.33 *L 7.37-7.43 Arterial Blood Partial Pressure CO2 57 H 35-45 MMHG Arterial Blood Partial Pressure O2 55 L 79-93 MMHG Arterial Blood HCO3 30 H 23-27 MMOL/L Arterial Blood Total CO2 31.3 H 21.0-31.0 MMOL/L Arterial Blood Oxygen Saturation 87 L 94-100 % Arterial Blood Base Excess 3.9 H -2.5-2.5 MMOL/L Donte Test YES-POS Blood Gas Ventilator Setting NO Blood Gas Inspired Oxygen 4L My Orders Orders - ARLETTE DURÁN MD BNP (04/16/18 07:38) Cbc With Automated Diff (04/16/18 07:38) Comprehensive Metabolic Panel (04/16/18 07:38) Hs C Reactive Protein (04/16/18 07:38) Magnesium (04/16/18 07:38) Troponin I (04/16/18 07:38) Myoglobin Serum (04/16/18 07:38) Ekg Tracing (04/16/18 07:38) O2 (04/16/18 07:38) Monitor-Rhythm Ecg Trace Only (04/16/18 07:38) Chest 1 View, Ap/Pa Only (04/16/18 07:38) Arterial Blood Gas (04/16/18 08:43) Vital Signs/I&O 04/16/18 04/16/18 07:28 07:30 Temp 97.9 Pulse 58 Resp 24 B/P (MAP) 127/114 (118) Pulse Ox 81 O2 Delivery Room Air OxyMask O2 Flow Rate 4.00 Capillary Refill : Less Than 3 Seconds Blood Pressure Mean: 118 Progress Note : Progress Note Seen and evaluated. IV, labs, EKG and chest x-ray ordered. Patient placed on her normal home O2 and did have improvement. States that she is normally on 4 L at home nasal cannula. We will continue that. ABG ordered. Monitor patient. 0850: Patient is a very difficult stick. We were finally able to get labs and ABG and those results are pending. Monitor patient. 0905: Labs reviewed and similar to yesterday. She is overall doing much better and mentating well on oxygen. We have discussed dialysis with the dialysis center. If we can discharge her now they can get dialysis immediately. This is what the patient needs more than anything so we will arrange that plan. Her is at home currently and will bring her oxygen and take her to the dialysis center. Discharged home with return precautions. Patient verbalize understanding instructions and agreement with plan. ECG Initial ECG Impression Date: Apr 16, 2018 Initial ECG Impression Time: 07:35 Initial ECG Rate: 59 Initial ECG Rhythm: Normal Sinus Comment Sinus rhythm with artifact. Left axis deviation. No evidence of ST elevation NV. Similar to previous of 04/08/18. Interpreted by me. Diagnostic Imaging Diagonstic Imaging: Xray Plain Films/CT/US/NM/MRI: chest Comments [facility] [place], [place] NAME: PHILLIPVARGAS MED REC#: [id number] PT STATUS: REG ER : 1965 PHYSICIAN: ARLETTE DURÁN MD ADMIT DATE: 04/16/18/ER Draft Date of Exam:04/16/18 CHEST 1 VIEW, AP/PA ONLY INDICATION: Hypoxia. Time of Exam: 8:28 AM Correlation is made with prior study one day earlier. The heart is enlarged but stable. There is central congestion but no overt failure. No effusion or pneumothorax is seen. IMPRESSION: Cardiomegaly and central congestion. Dictated on workstation # [id number] Dict: 04/16/18 0837 Trans: 04/16/18 0840 SENIA [id number] Interpreted by: JANEL HOU MD Electronically signed by: Departure Impression Primary Impression: Fluid overload Qualified Codes: E87.70 - Fluid overload, unspecified Additional Impression: ESRD (end stage renal disease) on dialysis Disposition: HOME, SELF-CARE Condition: Stable Departure-Patient Inst. Decision time for Depature: 09:11 [place]errals: [facility] [place] Primary Care Physician Patient Instructions: Chronic Kidney Disease (DC) Add. Discharge Instructions: All discharge instructions reviewed with patient and/or family. Voiced understanding. You need dialysis. They are available to dialyze you now. Go directly from the emergency department to the dialysis center for dialysis. Wear your oxygen at all times. Follow-up with your kidney doctor in one to 2 days for recheck and further evaluation. Return for worse pain, fever, vomiting, weakness, breathing problems or other concerns as needed. ARLETTE DURÁN MD Apr 16, 2018 08:53
[2018-04-16 09:01] LABS: ABG PH 7.33 (7.37-7.43)
--- NOTE | 2018-04-16 09:07 | NUR ---
DIALYSIS CENTER CONTACTED WHO STATES SHE CAN GET DIALYSIS TODAY IF SHE COMES STRAIT THERE. PT STATES HER HAS WENT HOME ET WILL CALL HIM TO BRING OXYGEN AND COME GET HER.
[2018-04-16 09:40] VITALS: BP 119/36
[2018-04-16] MEDS ORDERED: DIGO125T (21:40)
[2018-04-16] MEDS ORDERED: CALC667C10 (21:40)
[2018-04-16] MEDS ORDERED: AMIT25TA9 (21:40)
[2018-04-16] MEDS ORDERED: CHLO500T4 (21:40)
[2018-04-16] MEDS ORDERED: WARF7.5T6 (21:40)
== END 2018-04-16 09:40 | disposition home or self-care (01) ==
LOC: EDUNIT# 07:28 → ER 07:30
DX: E11.22 Type 2 diabetes mellitus with diabetic chronic kidney disease (principal); I12.0 Hypertensive chronic kidney disease with stage 5 chronic kidney disease or end stage renal disease; N18.6 End stage renal disease; E87.70 Fluid overload, unspecified; J43.9 Emphysema, unspecified; I25.10 Atherosclerotic heart disease of native coronary artery without angina pectoris; E78.00 Pure hypercholesterolemia, unspecified; E11.51 Type 2 diabetes mellitus with diabetic peripheral angiopathy without gangrene; I73.9 Peripheral vascular disease, unspecified; G43.909 Migraine, unspecified, not intractable, without status migrainosus; E11.10 Type 2 diabetes mellitus with ketoacidosis without coma; Z99.2 Dependence on renal dialysis; Z98.51 Tubal ligation status; Z88.7 Allergy status to serum and vaccine; Z87.19 Personal history of other diseases of the digestive system; Z91.048 Other nonmedicinal substance allergy status; Z79.82 Long term (current) use of aspirin; Z79.02 Long term (current) use of antithrombotics/antiplatelets; Z79.4 Long term (current) use of insulin; Z79.51 Long term (current) use of inhaled steroids; Z77.22 Contact with and (suspected) exposure to environmental tobacco smoke (acute) (chronic); Z98.890 Other specified postprocedural states; Z90.710 Acquired absence of both cervix and uterus; Z93.0 Tracheostomy status; Z89.512 Acquired absence of left leg below knee
CPT/HCPCS: 36415; 36600; 71045; 80053; 82805; 83735; 83874; 83880; 84484; 85025; 86141; 93005; 93041

== ENCOUNTER 2018-04-16 21:16 | Emergency (ER) | payer MEDICARE, MEDICAID ==
[~2018-04-16] VITALS: Ht 160 cm; Wt 136.5 kg
--- NOTE | 2018-04-16 21:18 | NUR ---
PER EMS PT HAD 3.6L REMOVED DURING HEMODIALYSIS TODAY ET. IS SUPPOSED TO RETURN FOR DIALYSIS SATURDAY & SATURDAY.
[2018-04-16] MEDS ORDERED: CALC667C10 (21:40)
[2018-04-16] MEDS ORDERED: AMIT25TA9 (21:40)
[2018-04-16] MEDS ORDERED: DIGO125T (21:40)
[2018-04-16] MEDS ORDERED: WARF7.5T6 (21:40)
[2018-04-16] MEDS ORDERED: CHLO500T4 (21:40)
[2018-04-16 21:45] LABS: BASOPHILS % (AUTO) 1 % (0-10); EOSINOPHILS # (AUTO) 0.2 10^3/uL (0.0-0.3); EOSINOPHILS % (AUTO) 2 % (0-10); HEMATOCRIT 31 % (35-52); HEMOGLOBIN 9.1 G/DL (11.5-16.0); LYMPHOCYTES # (AUTO) 2.1 X 10^3 (1.0-4.0); LYMPHOCYTES % (AUTO) 24 % (12-44); MEAN CORPUSCULAR HEMOGLOBIN 31 PG (25-34); MEAN CORPUSCULAR HGB CONC 29 G/DL (32-36); MEAN CORPUSCULAR VOLUME 106 FL (80-99); MEAN PLATELET VOLUME 12.4 FL (7.4-10.4); MONOCYTES # (AUTO) 0.9 X 10^3 (0.0-1.0); MONOCYTES % (AUTO) 10 % (0-12); NEUTROPHILS # (AUTO) 5.5 X 10^3 (1.8-7.8); NEUTROPHILS % (AUTO) 63 % (42-75); PLATELET COUNT 223 10^3/uL (130-400); RED BLOOD COUNT 2.95 10^6/uL (4.35-5.85); RED CELL DISTRIBUTION WIDTH 19.9 % (10.0-14.5); WHITE BLOOD COUNT 8.6 10^3/uL (4.3-11.0)
--- NOTE | 2018-04-16 21:57 | Diagnostic Imaging Report ---
EXAM: CHEST 1 VIEW, AP/PA ONLY INDICATION: Chest pain. COMPARISON: Chest radiograph 04/16/2018 at 8:27 AM. FINDINGS: Low lung volumes, portable technique and body habitus markedly limits the evaluation. There appears to be cardiomegaly and marked pulmonary vascular congestion. No definite pleural effusion or pneumothorax. No acute osseous findings. IMPRESSION: Limited examination as above. There is likely cardiomegaly and pulmonary vascular congestion. Dictated by: Dictated on workstation # [id number]
[2018-04-16 21:58] LABS: ALBUMIN 3.1 GM/DL (3.2-4.5); BILIRUBIN,TOTAL 0.3 MG/DL (0.1-1.0); CALCIUM 8.2 MG/DL (8.5-10.1); MAGNESIUM 1.6 MG/DL (1.8-2.4); POTASSIUM 5.4 MMOL/L (3.6-5.0); TOTAL PROTEIN 5.6 GM/DL (6.4-8.2)
[2018-04-16 22:00] VITALS: BP 108/69
[2018-04-16 22:05] LABS: MYOGLOBIN SERUM 296.5 NG/ML (10.0-92.0)
[2018-04-16 22:31] LABS: CREATININE SERUM 6.95 MG/DL (0.60-1.30)
--- NOTE | 2018-04-16 22:57 | ED General ---
General Chief Complaint: Upper Extremity Stated Complaint: CHEST PAIN Nursing Triage Note: LEFT ARM PAIN Nursing Sepsis Screen: No Definite Risk Source of Information: Patient, EMS, Family, Old Records Exam Limitations: No Limitations History of Present Illness Date Seen by Provider: Apr 16, 2018 Time Seen by Provider: 21:30 Initial Comments Patient presents to the emergency room with complaints of pain in the left arm just proximal to the elbow. It hurts worse with movement but is not tender to palpation. This is fairly near her dialysis fistula. Patient was also here this morning for what she states was chest pain. However when I reviewed the note from this morning is states that she denied chest pain at that time. She states she has not had any chest pain since this morning and the pain is isolated to her elbow at this time. Patient left the emergency room this morning and went straight to dialysis where reportedly 3.6 L were removed. She was felt to be fluid overloaded at the time of her visit in the ER. Patient takes numerous medications including warfarin. She has extensive bruising in various areas on her skin and some sores she has picked at that are slightly oozing blood. Patient requested DNR status. Allergies and Home Medications Allergies Coded Allergies: aloe vera (Verified Allergy, Severe, RASH, 11/05/13) flu vaccine [id number](4 yr+) (Verified Allergy, Mild, HIVES, 04/22/12) adhesive (Verified Allergy, Unknown, 05/01/07) Uncoded Allergies: TAPE (Allergy, Mild, 05/16/10) Home Medications Amlodipine Besylate 10 Mg Tablet, 10 MG PO HS, (Reported) Aspirin 81 Mg Tablet.dr, 81 MG PO DAILY, (Reported) Fluticasone Propionate 16 Gm [place].susp, 1 SPRAY NA DAILY PRN for ALLERGIES, ( Reported) Furosemide 40 Mg Tablet, 40 MG PO DAILY, (Reported) Gabapentin 300 Mg Capsule, 300 MG PO TID, (Reported) Hydrocodone/Acetaminophen 1 Each Tablet, 1 TAB PO Q6H PRN for PAIN-MODERATE, ( Reported) Hydroxyzine HCl 25 Mg Tablet, 25 MG PO TID PRN for an, (Reported) Insulin Glargine,Hum.rec.anlog 100 Unit/1 Ml Insuln.pen, 30 UNITS SQ HS, ( Reported) Insulin Lispro 100 Unit/1 Ml Insuln.pen, SQ HS, (Reported) 100-200 = 12-16 UNITS ABOVE 300 = 20 UNITS ABOVE 400 = CALL Isosorbide Mononitrate 30 Mg Tab.er.24h, 30 MG PO HS, (Reported) Loratadine 10 Mg Tablet, 10 MG PO HS, (Reported) Metoprolol Tartrate 100 Mg Tablet, 100 MG PO BID, (Reported) Montelukast Sodium 10 Mg Tablet, 10 MG PO HS, (Reported) Naproxen 375 Mg Tablet, 375 MG PO BID PRN for PAIN-MILD, (Reported) Ondansetron 8 Mg Tab.rapdis, 8 MG PO Q8H PRN for NAUSEA/VOMITING-1ST LINE, ( Reported) Rosuvastatin Calcium 20 Mg Tablet, 20 MG PO HS, (Reported) Sevelamer Carbonate 800 Mg Tablet, 3,200 MG PO BID WITH MEALS, (Reported) TAKES 4 (800MG) TABLETS WITH BREAKFAST AND SUPPER AND TAKES 2 (800MG) TABLETS WITH SNACK Sevelamer Carbonate 800 Mg Tablet, 1,600 MG PO DAILY WITH SNACK, (Reported) TAKES 2 (800MG) TABLETS Vit B Cmplx 3/FA/Vit C/Biotin 1 Each Tablet, 1 TAB PO DAILY, (Reported) Patient Home Medication List Home Medication List Reviewed: Yes Review of Systems Review of Systems Constitutional: no symptoms reported EENTM: no symptoms reported Respiratory: see HPI Cardiovascular: see HPI Gastrointestinal: no symptoms reported Genitourinary: no symptoms reported : No Musculoskeletal: see HPI Skin: no symptoms reported Psychiatric/Neurological: No Symptoms Reported Hematologic/Lymphatic: No Symptoms Reported Immunological/Allergic: no symptoms reported Past Zozedbx-Cdisaq-Ntuvtc Hx Patient Social History Alcohol Use: Denies Use Recreational Drug Use: No Smoking Status: Former Smoker 2nd Hand Smoke Exposure: Yes Recent Foreign Travel: No Contact w/Someone Who Travel: No Recent Infectious Disease Expo: No Recent Hopitalizations: Yes (04/16/18) Immunizations Up To Date Tetanus Booster (TDap): Less than 5yrs PED Vaccines UTD: No Date of Pneumonia Vaccine: Sep 02, 2013 Seasonal Allergies Seasonal Allergies: Yes Past Medical History Surgeries: Yes (DIALYSIS AV FISTULA/GRAFT LEFT UPPER ARM, LEFT BKA) Amputation, Arteriovenous Shunt, Cardiac, Section, Dialysis, Hysterectomy, Orthopedic, Tracheostomy, Vascular Surgery Respiratory: Yes (TRACHEOSTOMY IN PAST--PT STATES DUE TO "DIABETIC COMA", O2 AT 4L/NC) Asthma, COPD, Emphysema Currently Using CPAP: No Currently Using BIPAP: No Cardiac: Yes Atrial Fibrillation, Chronic Edema/Swelling, Coronary Artery Disease, High Cholesterol, Hypertension, Peripheral Vascular Neurological: Yes Headaches /Migraines, Neuropathy : No 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 Disorders: No 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 Sexually Transmitted Disease: No HIV/AIDS: No Renal Failure, Dialysis Gastrointestinal: Yes Chronic Constipation Musculoskeletal: Yes (BILATERAL CARPAL TUNNEL SYMPTOMS; LEFT BKA, LEFT STUMP FRACTURE) Arthritis, Chronic Back Pain, Fractures Endocrine: Yes (DKA IN PAST ) Diabetes, Insulin dep Loss of Vision: Denies Hearing Impairment: Denies, Hard of Hearing Cancer: No Psychosocial: No Integumentary: Yes (DIABETIC ULCERS) Blood Disorders: No Adverse Reaction/Blood Tranf: No Family Medical History Diabetes mellitus Family history: Asthma 09 BROTHER No Family History of: AIDS Abdominal aortic aneurysm Sedgwick's disease Alcoholism Alzheimer's disease Aphasia Arthritis Asthma Cancer of mouth Cardiovascular disease Cataracts Colon cancer Completed stroke Congenital disease Congenital heart disease Coronary thrombosis Cystic fibrosis Deafness or hearing loss Dementia Drug abuse Dysphasia Fibrocystic disease of breast Gastroenteritis Glaucoma Headache disorder Hypercholesterolemia Hypertension Infertility Kidney disease Myocardial infarction Neoplasm Not obtainable due to adoption Osteoporosis Parkinson's disease Prostate cancer Psychosocial problem Respiratory disorder Seizure disorder Severe allergy Thyroid disease Tuberculosis Visual disorder Physical Exam Vital Signs Vital Signs - First Documented Capillary Refill : Less Than 3 Seconds Height, Weight, BMI Height: 5'3.00" Weight: 301lbs. 0.0oz. [id number]; 53.4 BMI Method:Stated General Appearance: No Apparent Distress, WD/WN HEENT: PERRL/EOMI, Normal ENT Inspection Neck: Normal Inspection Respiratory: Lungs Clear, Normal Breath Sounds, No Accessory Muscle Use, No Respiratory Distress Cardiovascular: Regular Rate, Rhythm, No Murmur, Other (marked edema of the right lower extremity) Gastrointestinal: Normal Bowel Sounds, Non Tender Extremity: Normal Capillary Refill, Other (marked edema of the right lower extremity. BKA of the left lower extremity) Neurologic/Psychiatric: Alert, Oriented x3, No Motor/Sensory Deficits, Normal Mood/Affect, collar packer II-XII Norm as Tested Skin: Warm/Dry, Ecchymosis, Other (oozing of blood from the left nostril, scratch sites on her skin, and puncture sites. No hemorrhage.) Progress/Results/Core Measures Suspected Sepsis Recent Fever Within 48 Hours: No Infection Criteria Present: None New/Unexplained Altered Menta: No Sepsis Screen: No Definite Risk SIRS Temperature:98.7 Pulse: 73 Respiratory Rate: 18 Laboratory Tests 04/16/18 21:30: White Blood Count 8.6 Blood Pressure 101 /69 Mean: 80 Laboratory Tests 04/16/18 21:30: Creatinine 6.95#H, INR Comment , Platelet Count 223, Total Bilirubin 0.3 Results/Orders Lab Results Laboratory Tests Test 04/16/18 21:30 Range/Units White Blood Count 8.6 4.3-11.0 10^3/uL Red Blood Count 2.95 L 4.35-5.85 10^6/uL Hemoglobin 9.1 L 11.5-16.0 G/DL Hematocrit 31 L 35-52 % Mean Corpuscular Volume 106 H 80-99 FL Mean Corpuscular Hemoglobin 31 25-34 PG Mean Corpuscular Hemoglobin Concent 29 L 32-36 G/DL Red Cell Distribution Width 19.9 H 10.0-14.5 % Platelet Count 223 130-400 10^3/uL Mean Platelet Volume 12.4 H 7.4-10.4 FL Neutrophils (%) (Auto) 63 42-75 % Lymphocytes (%) (Auto) 24 12-44 % Monocytes (%) (Auto) 10 0-12 % Eosinophils (%) (Auto) 2 0-10 % Basophils (%) (Auto) 1 0-10 % Neutrophils # (Auto) 5.5 1.8-7.8 X 10^3 Lymphocytes # (Auto) 2.1 1.0-4.0 X 10^3 Monocytes # (Auto) 0.9 0.0-1.0 X 10^3 Eosinophils # (Auto) 0.2 0.0-0.3 10^3/uL Basophils # (Auto) 0.0 0.0-0.1 10^3/uL Prothrombin Time > 100.0 *H 12.2-14.7 SEC INR Comment 0.8-1.4 Activated Partial Thromboplast Time 125 *H 24-35 SEC Sodium Level 139 135-145 MMOL/L Potassium Level 5.4 H 3.6-5.0 MMOL/L Chloride Level 96 L 98-107 MMOL/L Carbon Dioxide Level 28 21-32 MMOL/L Anion Gap 15 H 5-14 MMOL/L Blood Urea Nitrogen 21 H 7-18 MG/DL Creatinine 6.95 #H 0.60-1.30 MG/DL Estimat Glomerular Filtration Rate 6 BUN/Creatinine Ratio 3 Glucose Level 305 H 70-105 MG/DL Calcium Level 8.2 L 8.5-10.1 MG/DL Corrected Calcium 8.9 8.5-10.1 MG/DL Magnesium Level 1.6 L 1.8-2.4 MG/DL Total Bilirubin 0.3 0.1-1.0 MG/DL Aspartate Amino Transf (AST/SGOT) 19 5-34 U/L Alanine Aminotransferase (ALT/SGPT) 20 0-55 U/L Alkaline Phosphatase 107 40-136 U/L Myoglobin 296.5 H 10.0-92.0 NG/ML Troponin I 0.030 <0.028 NG/ML Total Protein 5.6 L 6.4-8.2 GM/DL Albumin 3.1 L 3.2-4.5 GM/DL My Orders Orders - MIRTA STAPLETON MD Cbc With Automated Diff (04/16/18 21:36) Magnesium (04/16/18 21:36) Chest 1 View, Ap/Pa Only (04/16/18 21:36) Ekg Tracing (04/16/18 21:36) Cardiac Profile 1 (04/16/18 21:36) Comprehensive Metabolic Panel (04/16/18 21:36) Myoglobin Serum (04/16/18 21:36) Protime With Inr (04/16/18 21:36) Partial Thromboplastin Time (04/16/18 21:36) O2 (04/16/18 21:36) Monitor-Rhythm Ecg Trace Only (04/16/18 21:36) Saline Lock/Iv-Start (04/16/18 21:36) Fresh Frozen Plasma (04/16/18 23:53) Abo Rh Type (04/16/18 23:53) Phytonadione (Adult) Injection ([place] (04/17/18 00:30) Albuterol/Ipra Inhalation Soln (Duoneb I (04/17/18 01:30) Svn Small Volume Nebulizer (04/17/18 01:16) Medications Given in ED Current Medications Medications Dose Ordered Sig/Lindy Route Start Time Stop Time Status Last Admin Dose Admin Phytonadione 5 mg ONCE ONCE SQ 04/17/18 00:30 04/17/18 00:31 DC 04/17/18 00:30 5 MG Vital Signs/I&O 04/16/18 04/16/18 04/16/18 04/16/18 21:18 21:18 22:00 23:00 Temp 98.7 Pulse 73 72 69 Resp 18 18 23 B/P (MAP) 101/69 (80) 108/69 (82) 102/73 (83) Pulse Ox 99 99 98 98 O2 Delivery Nasal Cannula Nasal Cannula Nasal Cannula Nasal Cannula O2 Flow Rate 4.00 4.00 4.00 4.00 4.00 04/17/18 00:00 Temp 97.8 Pulse 69 Resp 15 B/P (MAP) 102/73 (83) Pulse Ox 96 O2 Delivery Nasal Cannula O2 Flow Rate 4.00 Capillary Refill : Less Than 3 Seconds Blood Pressure Mean: 80 Progress Note #1: Time: 22:59 Progress Note Patient was seen and examined. Labs were drawn again. EKG was obtained. Patient's pain is in the left arm and not in the chest. It is worse with movement but not tender to palpation. Labs were reviewed. INR was on calculable due to extremely elevated PTT. A redraw has been performed and read calculation is pending. Progress Note #2: Time: 00:31 Progress Note The repeat of coag studies still demonstrates markedly supratherapeutic anti- coagulation. Patient does have some oozing of blood from sites on her skin and her left nostril. I discussed the case with Dr. Kesha Quinonez, health and safety consultant at [facility]. She is in agreement with treatment with FFP and transferred to [facility]. She can be monitored there while her supratherapeutic INR is being treated and then possibly receive her dialysis in the morning. 2 units of FFP have been ordered and are being prepared. Transfer arrangements are being made. Case was discussed with Dr. Perla, hospitalist at [facility]. He is agreeable to accepting transfer. He requested vitamin K also be administered. 5 mg of vitamin K is being given by subcutaneous route. Progress Note #3: Time: 01:24 Progress Note We are awaiting EMS for transport to [facility]. Patient complains of increased shortness of air. She has decreased air movement on repeat auscultation. Patient states she uses nebulizer treatments at home. A DuoNeb treatment has been ordered. Progress Note #4: Time: 01:48 Progress Note EMS here for transport. Patient states DuoNeb did help her breathing somewhat. One unit of FFP has infused. ECG Initial ECG Impression Date: Apr 16, 2018 Initial ECG Impression Time: 22:15 Initial ECG Rate: 67 Initial ECG Rhythm: Normal Sinus Comment Sinus rhythm with borderline ST depression in multiple leads, unchanged from earlier today. First degree AV block with DE interval of 276. Diagnostic Imaging Diagonstic Imaging: Xray Plain Films/CT/US/NM/MRI: chest Comments Chest x-ray viewed by me and report reviewed. See report below: NAME: VARGAS FISHER MED REC#: [id number] PT STATUS: REG ER : 1965 PHYSICIAN: MIRTA STAPLETON MD ADMIT DATE: 04/16/18/ER Signed Date of Exam: 04/16/18 CHEST 1 VIEW, AP/PA ONLY EXAM: CHEST 1 VIEW, AP/PA ONLY INDICATION: Chest pain. COMPARISON: Chest radiograph 04/16/2018 at 8:27 AM. FINDINGS: Low lung volumes, portable technique and body habitus markedly limits the evaluation. There appears to be cardiomegaly and marked pulmonary vascular congestion. No definite pleural effusion or pneumothorax. No acute osseous findings. IMPRESSION: Limited examination as above. There is likely cardiomegaly and pulmonary vascular congestion. Dictated by: Dictated on workstation # [id number] Dict: 04/16/182152 Trans: 04/16/182156 Interpreted by: KALLI THOMAS MD Electronically signed by: KALLI THOMAS MD 04/16/182156 Departure Impression Primary Impression: Supratherapeutic INR Additional Impressions: End stage renal failure on dialysis Left arm pain Disposition: 02 XFER SHT-TRM HOSP Condition: Improved Transfer Time Spoke to Accepting Phy: 00:05 Transfer Progress Notes Patient graciously accepted by Dr. Kesha Quinonez and Dr. Perla at [facility] Transfer Time: 01:49 Transfer Facility: [facility] [place] Method of Transfer: EMS Departure-Patient Inst. Referrals: [facility] (PCP/Family) Primary Care Physician MIRTA STAPLETON MD Apr 16, 2018 22:57
[2018-04-16 23:00] VITALS: BP 102/73
[2018-04-16 23:29] LABS: PARTIAL THROMBOPLASTIN TIME 125 SEC (24-35); PROTHROMBIN TIME PATIENT > 100.0 SEC (12.2-14.7)
[2018-04-17] VITALS: BP 102/73
[2018-04-17] MEDS ORDERED: PHYTONADIONE (VIT. K) 10 MG/ML AMP SQ ONE (00:30)
[2018-04-17] MEDS ORDERED: RT-ALBUTEROL/IPRATROPIUM 3 ML (DUONEB) VIAL INH ONE (01:30)
[2018-04-17 01:56] VITALS: BP 102/59
== END 2018-04-17 01:58 | disposition short-term general hospital (02) ==
LOC: EDUNIT# 21:16 → ER 21:18
DX: E11.22 Type 2 diabetes mellitus with diabetic chronic kidney disease (principal); I12.0 Hypertensive chronic kidney disease with stage 5 chronic kidney disease or end stage renal disease; N18.6 End stage renal disease; M79.602 Pain in left arm; J43.9 Emphysema, unspecified; E78.00 Pure hypercholesterolemia, unspecified; E11.51 Type 2 diabetes mellitus with diabetic peripheral angiopathy without gangrene; I73.9 Peripheral vascular disease, unspecified; I25.10 Atherosclerotic heart disease of native coronary artery without angina pectoris; E11.10 Type 2 diabetes mellitus with ketoacidosis without coma; I48.91 Unspecified atrial fibrillation; G43.909 Migraine, unspecified, not intractable, without status migrainosus; Z87.19 Personal history of other diseases of the digestive system; Z88.7 Allergy status to serum and vaccine; Z99.2 Dependence on renal dialysis; Z91.048 Other nonmedicinal substance allergy status; Z79.82 Long term (current) use of aspirin; Z79.4 Long term (current) use of insulin; Z79.51 Long term (current) use of inhaled steroids; Z79.01 Long term (current) use of anticoagulants; Z87.891 Personal history of nicotine dependence; Z98.890 Other specified postprocedural states; Z90.710 Acquired absence of both cervix and uterus; Z93.0 Tracheostomy status; Z99.81 Dependence on supplemental oxygen
CPT/HCPCS: 36415; 71045; 80053; 83735; 83874; 84484; 85025; 85610; 85730; 86900; 86901; 93005; 93041; 94640

== ENCOUNTER 2018-05-05 17:03 | Emergency (ER) | payer MEDICARE, MEDICAID ==
[~2018-05-05] VITALS: Ht 154.9 cm; Wt 136.1 kg
[~2018-05-05 17:03] MED LIST changes: +AMIT25TA9; -AMLO10TA6 PO; +AMLO10TA7 PO; +CALC667C10; +CHLO500T4; +DIGO125T; +WARF7.5T6
--- NOTE | 2018-05-05 17:10 | NUR ---
PT DOES NOT KNOW CURRENT MEDS EXCEPT IS BACK ON BLOOD THINNER
--- OUTSIDE RECORDS SUMMARY | 2018-05-05 17:15 | XMS REPORT | Clinical Summary ---
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 If you do not see the information that you expected, contact Release of Information in the Health Information Management department at [phone] for further assistance in locating additional records.[facility] Allergies Not on File Medications Not [...] Self [address] ([place]) [place] [address] Advance Directives Patient has advance care planning documents on file. For more information, please contact: [facility] [address] [place] [address]
--- NOTE | 2018-05-05 17:33 | ED General ---
General Chief Complaint: General Problems/Pain Stated Complaint: LOW BLOOD PRESSURE Nursing Triage Note: PT ARRIVED PER EMS, PT STATES HAS BEEN HAVING BLOOD IN STOOL, PT IS A DIALYSIS TODAY PT HAS HYPOTENSION Nursing Sepsis Screen: No Definite Risk Source of Information: Patient Exam Limitations: No Limitations History of Present Illness Date Seen by Provider: May 05, 2018 Time Seen by Provider: 17:12 Initial Comments Here with report of low blood pressure and having blood in stool. She did have dialysis today. Was seen then sent to [facility] couple weeks ago for similar. There she had colonoscopy which was negative. She had her blood thinner stop it was restarted at discharge. Notes that she has intermittent nosebleeds and does have some blood in her stool since. Does have history of low blood pressure during dialysis and after dialysis. She states that she really doesn' t want to be here but her family later, as well as the home health nurse. The patient is mentating well currently and answered all questions. No acute distress other than her pain to her bottom and sitting on her bottom. No active bleeding. Timing/Duration: 1-3 Hours Severity: Mild Associated Systoms: No Chest Pain, No Nausea/Vomiting, No Shortness of Air Allergies and Home Medications Allergies Coded Allergies: aloe vera (Verified Allergy, Severe, RASH, 11/05/13) flu vaccine [id number](4 yr+) (Verified Allergy, Mild, HIVES, 04/22/12) adhesive (Verified Allergy, Unknown, 05/01/07) Uncoded Allergies: TAPE (Allergy, Mild, 05/16/10) Home Medications Amlodipine Besylate 10 Mg Tablet, 10 MG PO HS, (Reported) Aspirin 81 Mg Tablet.dr, 81 MG PO DAILY, (Reported) Fluticasone Propionate 16 Gm [place].susp, 1 SPRAY NA DAILY PRN for ALLERGIES, ( Reported) Furosemide 40 Mg Tablet, 40 MG PO DAILY, (Reported) Gabapentin 300 Mg Capsule, 300 MG PO TID, (Reported) Hydrocodone/Acetaminophen 1 Each Tablet, 1 TAB PO Q6H PRN for PAIN-MODERATE, ( Reported) Hydroxyzine HCl 25 Mg Tablet, 25 MG PO TID PRN for an, (Reported) Insulin Glargine,Hum.rec.anlog 100 Unit/1 Ml Insuln.pen, 30 UNITS SQ HS, ( Reported) Insulin Lispro 100 Unit/1 Ml Insuln.pen, SQ HS, (Reported) 100-200 = 12-16 UNITS ABOVE 300 = 20 UNITS ABOVE 400 = CALL Isosorbide Mononitrate 30 Mg Tab.er.24h, 30 MG PO HS, (Reported) Loratadine 10 Mg Tablet, 10 MG PO HS, (Reported) Metoprolol Tartrate 100 Mg Tablet, 100 MG PO BID, (Reported) Montelukast Sodium 10 Mg Tablet, 10 MG PO HS, (Reported) Naproxen 375 Mg Tablet, 375 MG PO BID PRN for PAIN-MILD, (Reported) Ondansetron 8 Mg Tab.rapdis, 8 MG PO Q8H PRN for NAUSEA/VOMITING-1ST LINE, ( Reported) Rosuvastatin Calcium 20 Mg Tablet, 20 MG PO HS, (Reported) Sevelamer Carbonate 800 Mg Tablet, 3,200 MG PO BID WITH MEALS, (Reported) TAKES 4 (800MG) TABLETS WITH BREAKFAST AND SUPPER AND TAKES 2 (800MG) TABLETS WITH SNACK Sevelamer Carbonate 800 Mg Tablet, 1,600 MG PO DAILY WITH SNACK, (Reported) TAKES 2 (800MG) TABLETS Vit B Cmplx 3/FA/Vit C/Biotin 1 Each Tablet, 1 TAB PO DAILY, (Reported) Patient Home Medication List Home Medication List Reviewed: Yes Review of Systems Review of Systems Constitutional: see HPI; No chills, No fever EENTM: epistaxis; No throat pain Respiratory: No cough, No short of breath Cardiovascular: No chest pain; edema Gastrointestinal: see HPI; No abdominal pain, No nausea, No vomiting Genitourinary: other (does not urinate) Musculoskeletal: joint pain, muscle pain Skin: no symptoms reported Psychiatric/Neurological: No Symptoms Reported Past Cetdspe-Lapwzh-Auxowj Hx Patient Social History Alcohol Use: Denies Use Recreational Drug Use: No 2nd Hand Smoke Exposure: Yes Recent Foreign Travel: No Contact w/Someone Who Travel: No Recent Infectious Disease Expo: No Recent Hopitalizations: Yes (04/16/18) Immunizations Up To Date Tetanus Booster (TDap): Less than 5yrs PED Vaccines UTD: No Date of Pneumonia Vaccine: Sep 02, 2013 Seasonal Allergies Seasonal Allergies: Yes Past Medical History Surgeries: Yes (DIALYSIS AV FISTULA/GRAFT LEFT UPPER ARM, LEFT BKA) Amputation, Arteriovenous Shunt, Cardiac, Section, Dialysis, Hysterectomy, Orthopedic, Tracheostomy, Vascular Surgery Respiratory: Yes (TRACHEOSTOMY IN PAST--PT STATES DUE TO "DIABETIC COMA", O2 AT 4L/NC) Asthma, COPD, Emphysema Currently Using CPAP: No Currently Using BIPAP: No Cardiac: Yes Atrial Fibrillation, Chronic Edema/Swelling, Coronary Artery Disease, High Cholesterol, Hypertension, Peripheral Vascular Neurological: Yes Headaches /Migraines, Neuropathy 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 Disorders: No [employer]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 Sexually Transmitted Disease: No HIV/AIDS: No Renal Failure, Dialysis Gastrointestinal: Yes Chronic Constipation Musculoskeletal: Yes (BILATERAL CARPAL TUNNEL SYMPTOMS; LEFT BKA, LEFT STUMP FRACTURE) Arthritis, Chronic Back Pain, Fractures Endocrine: Yes (DKA IN PAST ) Diabetes, Insulin dep Loss of Vision: Denies Hearing Impairment: Denies, Hard of Hearing Cancer: No Psychosocial: No Integumentary: Yes (DIABETIC ULCERS) Blood Disorders: No Adverse Reaction/Blood Tranf: No Family Medical History Diabetes mellitus Family history: Asthma 09 BROTHER No Family History of: AIDS Abdominal aortic aneurysm Martin's disease Alcoholism Alzheimer's disease Aphasia Arthritis Asthma Cancer of mouth Cardiovascular disease Cataracts Colon cancer Completed stroke Congenital disease Congenital heart disease Coronary thrombosis Cystic fibrosis Deafness or hearing loss Dementia Drug abuse Dysphasia Fibrocystic disease of breast Gastroenteritis Glaucoma Headache disorder Hypercholesterolemia Hypertension Infertility Kidney disease Myocardial infarction Neoplasm Not obtainable due to adoption Osteoporosis Parkinson's disease Prostate cancer Psychosocial problem Respiratory disorder Seizure disorder Severe allergy Thyroid disease Tuberculosis Visual disorder Physical Exam Vital Signs Vital Signs - First Documented 05/05/18 17:05 Temp 97.8 Pulse 77 Resp 18 B/P (MAP) 105/37 (59) Pulse Ox 98 Capillary Refill : Less Than 3 Seconds Height, Weight, BMI Height: 5'1.00" Weight: 300lbs. 0.0oz. 136.820002uf; 53.4 BMI Method:Stated General Appearance: No Apparent Distress, WD/WN HEENT: PERRL/EOMI, Pharynx Normal Neck: Non Tender, Supple Respiratory: Lungs Clear, Normal Breath Sounds Cardiovascular: Regular Rate, Rhythm, No Murmur Gastrointestinal: Non Tender, Soft Back: Normal Inspection, No CVA Tenderness, No Vertebral Tenderness Extremity: Pedal Edema (2+ to right lower extremity), Other (left AKA) Neurologic/Psychiatric: Alert, Oriented x3 Progress/Results/Core Measures Suspected Sepsis Recent Fever Within 48 Hours: No Infection Criteria Present: None New/Unexplained Altered Menta: No Sepsis Screen: No Definite Risk SIRS Temperature:97.8 Pulse: 77 Respiratory Rate: 18 Laboratory Tests 05/05/18 17:10: White Blood Count 11.9H Blood Pressure 105 /37 Mean: 59 Laboratory Tests 05/05/18 17:10: Creatinine 4.46H, INR Comment 1.8H, Platelet Count 145, Total Bilirubin 0.3 Results/Orders Lab Results Laboratory Tests Test 05/05/18 17:10 Range/Units White Blood Count 11.9 H 4.3-11.0 10^3/uL Red Blood Count 3.15 L 4.35-5.85 10^6/uL Hemoglobin 10.0 L 11.5-16.0 G/DL Hematocrit 33 L 35-52 % Mean Corpuscular Volume 106 H 80-99 FL Mean Corpuscular Hemoglobin 32 25-34 PG Mean Corpuscular Hemoglobin Concent 30 L 32-36 G/DL Red Cell Distribution Width 21.5 H 10.0-14.5 % Platelet Count 145 130-400 10^3/uL Mean Platelet Volume 12.9 H 7.4-10.4 FL Neutrophils (%) (Auto) 68 42-75 % Lymphocytes (%) (Auto) 19 12-44 % Monocytes (%) (Auto) 9 0-12 % Eosinophils (%) (Auto) 4 0-10 % Basophils (%) (Auto) 0 0-10 % Neutrophils # (Auto) 8.1 H 1.8-7.8 X 10^3 Lymphocytes # (Auto) 2.3 1.0-4.0 X 10^3 Monocytes # (Auto) 1.0 0.0-1.0 X 10^3 Eosinophils # (Auto) 0.5 H 0.0-0.3 10^3/uL Basophils # (Auto) 0.0 0.0-0.1 10^3/uL Prothrombin Time 21.1 H 12.2-14.7 SEC INR Comment 1.8 H 0.8-1.4 Activated Partial Thromboplast Time 36 H 24-35 SEC Sodium Level 136 135-145 MMOL/L Potassium Level 4.1 3.6-5.0 MMOL/L Chloride Level 93 L 98-107 MMOL/L Carbon Dioxide Level 25 21-32 MMOL/L Anion Gap 18 H 5-14 MMOL/L Blood Urea Nitrogen 18 7-18 MG/DL Creatinine 4.46 H 0.60-1.30 MG/DL Estimat Glomerular Filtration Rate 10 BUN/Creatinine Ratio 4 Glucose Level 195 H 70-105 MG/DL Calcium Level 8.4 L 8.5-10.1 MG/DL Corrected Calcium 8.7 8.5-10.1 MG/DL Magnesium Level 2.0 1.8-2.4 MG/DL Total Bilirubin 0.3 0.1-1.0 MG/DL Aspartate Amino Transf (AST/SGOT) 70 H 5-34 U/L Alanine Aminotransferase (ALT/SGPT) 45 0-55 U/L Alkaline Phosphatase 142 H 40-136 U/L C-Reactive Protein High Sensitivity 2.81 H 0.00-0.50 MG/DL B-Type Natriuretic Peptide 241.8 H <100.0 PG/ML Total Protein 6.6 6.4-8.2 GM/DL Albumin 3.6 3.2-4.5 GM/DL My Orders Orders - ARLETTE DURÁN MD BNP (05/05/18 17:33) Cbc With Automated Diff (05/05/18 17:33) Comprehensive Metabolic Panel (05/05/18 17:33) Hs C Reactive Protein (05/05/18 17:33) Magnesium (05/05/18 17:33) Protime With Inr (05/05/18 17:33) Partial Thromboplastin Time (05/05/18 17:33) Chest 1 View, Ap/Pa Only (05/05/18 17:33) Ekg Tracing (05/05/18 17:33) Vital Signs/I&O 05/05/18 17:05 Temp 97.8 Pulse 77 Resp 18 B/P (MAP) 105/37 (59) Pulse Ox 98 Capillary Refill : Less Than 3 Seconds Blood Pressure Mean: 59 Progress Note : Progress Note Seen and evaluated. IV, labs, EKG and chest x-ray ordered. Monitor patient. Blood pressure noted to be labile but seems to be associated with positioning of arm. When arm is straight, blood pressure is 90s over 60s or higher. We did discuss several options for further evaluation including discharged home with her to call her doctor tomorrow morning or attempting to transfer. We will monitor labs and reevaluate. 1900: Labs reviewed and actually looked pretty good for her. She's had no active bleeding during the stay. Blood pressure improved. They are bringing her wheelchair and medicines for evaluation. 1935: Patient is on midodrine and patient was instructed to ensure that she is taking this appropriately. Overall feels much better. Blood pressure 112/41 currently. Discharged home with return precautions. Patient verbalize understanding instructions and agreement with plan. ECG Initial ECG Impression Date: May 05, 2018 Initial ECG Impression Time: 17:50 Initial ECG Rate: 77 Initial ECG Rhythm: Normal Sinus Comment Sinus rhythm with first degree AV block. No evidence of ST elevation ID. Unchanged from previous. Interpreted by me. Diagnostic Imaging Diagonstic Imaging: Xray Plain Films/CT/US/NM/MRI: chest Comments NAME: VARGAS FISHER [facility] REC#: [id number] PT STATUS: REG ER : 1965 PHYSICIAN: ARLETTE DURÁN MD ADMIT DATE: 05/05/18/ER Signed Date of Exam: 05/05/18 CHEST 1 VIEW, AP/PA ONLY PATIENT HISTORY: Hypoxemia. TECHNIQUE: Single frontal view of the chest. COMPARISON: 04/16/2018 FINDINGS: Lung volumes are low. There is cardiomegaly and central vascular congestion. Airspace opacities appear improved compared to the prior exam. No significant pleural effusion is seen. There is overall haziness, thought to be due to overlying soft tissue. IMPRESSION: Mild cardiomegaly and central vascular congestion. Aeration appears overall improved compared to 04/16/2018. Dictated by: Dictated on workstation # [id number] Dict: 05/05/181752 Trans: 05/05/181855 Interpreted by: SON PERDOMO MD Electronically signed by: SON PERDOMO MD 05/05/18 185 Departure Impression Primary Impression: Orthostatic hypotension Additional Impression: Rectal bleeding Disposition: HOME, SELF-CARE Condition: Stable Departure-Patient Inst. Decision time for Depature: 19:50 Referrals: [facility] (PCP/Family) Primary Care Physician Patient Instructions: Gastrointestinal Bleeding, Orthostatic Hypotension (DC) Add. Discharge Instructions: All discharge instructions reviewed with patient and/or family. Voiced understanding. Call your DrFlavio in the morning and discuss the use of the blood thinner. Ensure that she take the midodrine for your blood pressure. Return for worse pain, fever, vomiting, weakness, breathing problems or other concerns as needed. ARLETTE DURÁN MD May 05, 2018 17:32
[2018-05-05 17:42] LABS: BASOPHILS % (AUTO) 0 % (0-10); EOSINOPHILS # (AUTO) 0.5 10^3/uL (0.0-0.3); EOSINOPHILS % (AUTO) 4 % (0-10); HEMATOCRIT 33 % (35-52); LYMPHOCYTES # (AUTO) 2.3 X 10^3 (1.0-4.0); LYMPHOCYTES % (AUTO) 19 % (12-44); MEAN CORPUSCULAR HEMOGLOBIN 32 PG (25-34); MEAN CORPUSCULAR HGB CONC 30 G/DL (32-36); MEAN CORPUSCULAR VOLUME 106 FL (80-99); MEAN PLATELET VOLUME 12.9 FL (7.4-10.4); MONOCYTES % (AUTO) 9 % (0-12); NEUTROPHILS # (AUTO) 8.1 X 10^3 (1.8-7.8); NEUTROPHILS % (AUTO) 68 % (42-75); PLATELET COUNT 145 10^3/uL (130-400); RED CELL DISTRIBUTION WIDTH 21.5 % (10.0-14.5); WHITE BLOOD COUNT 11.9 10^3/uL (4.3-11.0)
[2018-05-05 17:49] LABS: INR 1.8 (0.8-1.4); PROTHROMBIN TIME PATIENT 21.1 SEC (12.2-14.7)
[2018-05-05 17:57] LABS: ALBUMIN 3.6 GM/DL (3.2-4.5); BILIRUBIN,TOTAL 0.3 MG/DL (0.1-1.0); CALCIUM 8.4 MG/DL (8.5-10.1); CREATININE SERUM 4.46 MG/DL (0.60-1.30); POTASSIUM 4.1 MMOL/L (3.6-5.0); TOTAL PROTEIN 6.6 GM/DL (6.4-8.2)
--- NOTE | 2018-05-05 17:57 | Diagnostic Imaging Report ---
PATIENT HISTORY: Hypoxemia. TECHNIQUE: Single frontal view of the chest. COMPARISON: 04/16/2018 FINDINGS: Lung volumes are low. There is cardiomegaly and central vascular congestion. Airspace opacities appear improved compared to the prior exam. No significant pleural effusion is seen. There is overall haziness, thought to be due to overlying soft tissue. IMPRESSION: Mild cardiomegaly and central vascular congestion. Aeration appears overall improved compared to 04/16/2018. Dictated by: Dictated on workstation # [id number]
--- NOTE | 2018-05-05 19:00 | NUR ---
REPORT TO MARGARET MANCUSO
[2018-05-05 20:11] VITALS: BP 116/105
== END 2018-05-05 20:11 | disposition home or self-care (01) ==
LOC: EDUNIT# 17:03 → ER 17:04
DX: I95.9 Hypotension, unspecified (principal); K62.5 Hemorrhage of anus and rectum; I12.0 Hypertensive chronic kidney disease with stage 5 chronic kidney disease or end stage renal disease; E11.22 Type 2 diabetes mellitus with diabetic chronic kidney disease; E11.51 Type 2 diabetes mellitus with diabetic peripheral angiopathy without gangrene; E11.622 Type 2 diabetes mellitus with other skin ulcer; N18.6 End stage renal disease; J43.9 Emphysema, unspecified; J45.909 Unspecified asthma, uncomplicated; I48.91 Unspecified atrial fibrillation; I25.10 Atherosclerotic heart disease of native coronary artery without angina pectoris; E78.00 Pure hypercholesterolemia, unspecified; G43.909 Migraine, unspecified, not intractable, without status migrainosus; Z98.51 Tubal ligation status; Z99.2 Dependence on renal dialysis; Z89.512 Acquired absence of left leg below knee; Z93.0 Tracheostomy status; Z79.82 Long term (current) use of aspirin; Z79.4 Long term (current) use of insulin; Z88.7 Allergy status to serum and vaccine; Z88.8 Allergy status to other drugs, medicaments and biological substances
CPT/HCPCS: 36415; 71045; 80053; 83735; 83880; 85025; 85610; 85730; 86141; 93005

== ENCOUNTER 2018-05-10 17:47 | Emergency (ER) | payer MEDICARE, MEDICAID ==
[~2018-05-10] VITALS: Ht 162.6 cm; Wt 138.3 kg
--- NOTE | 2018-05-10 18:28 | ED General ---
General Chief Complaint: Cardiac/General Problems Stated Complaint: HYPOTENSIVE Source of Information: Patient Exam Limitations: No Limitations History of Present Illness Date Seen by Provider: May 10, 2018 Time Seen by Provider: 18:04 Initial Comments Here with report of low blood pressure at home. Apparently she's had diarrhea yesterday and today and did have some vomiting yesterday. That has improved some. She is post have dialysis yesterday but missed it due to the vomiting and diarrhea. Today she was dizzy and they took her blood pressure and it wouldn't read. They tried a few more times and it wouldn't read and her home health nurse recommended that she go to the emergency department for evaluation. EMS was summoned and brought her here. Their initial blood pressure showed her to be quite hypotensive in the range of 60s and 70s systolic but then suddenly improved to the 90s and 110s systolic without intervention. Patient has known orthostatic hypotension with labile blood pressure and has had multiple episodes similar. Patient states she does not really want to be here and that she only came here because the home health nurse told her to. She is not currently in any distress except for she is uncomfortable on the ED bed. She is alone for lab draw but states that she does not want to be transferred and really just wants to go home. Timing/Duration: 1-2 Days Severity: Moderate Associated Systoms: No Chest Pain, No Cough, No Fever/Chills; Loss of Appetite , Nausea/Vomiting; No Shortness of Air; Weakness Allergies and Home Medications Allergies Coded Allergies: aloe vera (Verified Allergy, Severe, RASH, 11/05/13) flu vaccine [id number](4 yr+) (Verified Allergy, Mild, HIVES, 04/22/12) adhesive (Verified Allergy, Unknown, 05/01/07) Uncoded Allergies: TAPE (Allergy, Mild, 05/16/10) Home Medications Amlodipine Besylate 10 Mg Tablet, 10 MG PO HS, (Reported) Aspirin 81 Mg Tablet.dr, 81 MG PO DAILY, (Reported) Fluticasone Propionate 16 Gm [place].susp, 1 SPRAY NA DAILY PRN for ALLERGIES, ( Reported) Furosemide 40 Mg Tablet, 40 MG PO DAILY, (Reported) Gabapentin 300 Mg Capsule, 300 MG PO TID, (Reported) Hydrocodone/Acetaminophen 1 Each Tablet, 1 TAB PO Q6H PRN for PAIN-MODERATE, ( Reported) Hydroxyzine HCl 25 Mg Tablet, 25 MG PO TID PRN for an, (Reported) Insulin Glargine,Hum.rec.anlog 100 Unit/1 Ml Insuln.pen, 30 UNITS SQ HS, ( Reported) Insulin Lispro 100 Unit/1 Ml Insuln.pen, SQ HS, (Reported) 100-200 = 12-16 UNITS ABOVE 300 = 20 UNITS ABOVE 400 = CALL Isosorbide Mononitrate 30 Mg Tab.er.24h, 30 MG PO HS, (Reported) Loratadine 10 Mg Tablet, 10 MG PO HS, (Reported) Metoprolol Tartrate 100 Mg Tablet, 100 MG PO BID, (Reported) Montelukast Sodium 10 Mg Tablet, 10 MG PO HS, (Reported) Naproxen 375 Mg Tablet, 375 MG PO BID PRN for PAIN-MILD, (Reported) Ondansetron 8 Mg Tab.rapdis, 8 MG PO Q8H PRN for NAUSEA/VOMITING-1ST LINE, ( Reported) Rosuvastatin Calcium 20 Mg Tablet, 20 MG PO HS, (Reported) Sevelamer Carbonate 800 Mg Tablet, 3,200 MG PO BID WITH MEALS, (Reported) TAKES 4 (800MG) TABLETS WITH BREAKFAST AND SUPPER AND TAKES 2 (800MG) TABLETS WITH SNACK Sevelamer Carbonate 800 Mg Tablet, 1,600 MG PO DAILY WITH SNACK, (Reported) TAKES 2 (800MG) TABLETS Vit B Cmplx 3/FA/Vit C/Biotin 1 Each Tablet, 1 TAB PO DAILY, (Reported) Patient Home Medication List Home Medication List Reviewed: Yes Review of Systems Review of Systems Constitutional: see HPI; No chills, No fever; weakness EENTM: no symptoms reported Respiratory: no symptoms reported Cardiovascular: No chest pain; edema Gastrointestinal: No abdominal pain; diarrhea, nausea, vomiting Genitourinary: other (does not urinate) Musculoskeletal: joint pain, muscle pain Skin: change in color, dryness, lesions (through skin and multiple lesions especially of the lower extremities) All Other Systems Reviewed Negative Unless Noted: Yes Past Cldftrx-Lztriv-Ryecie Hx Past Med/Social Hx: Reviewed Nursing Past Med/Soc Hx Patient Social History Alcohol Use: Denies Use Recreational Drug Use: No Smoking Status: Never a Smoker 2nd Hand Smoke Exposure: No Recent Hopitalizations: Yes (04/16/18) Physical Abuse: No Sexual Abuse: No Immunizations Up To Date Tetanus Booster (TDap): Less than 5yrs PED Vaccines UTD: No Date of Pneumonia Vaccine: Sep 02, 2013 Seasonal Allergies Seasonal Allergies: Yes Past Medical History Surgeries: Yes (DIALYSIS AV FISTULA/GRAFT LEFT UPPER ARM, LEFT BKA) Amputation, Arteriovenous Shunt, Cardiac, Section, Dialysis, Hysterectomy, Orthopedic, Tracheostomy, Vascular Surgery Respiratory: Yes (TRACHEOSTOMY IN PAST--PT STATES DUE TO "DIABETIC COMA", O2 AT 4L/NC) Asthma, COPD, Emphysema Currently Using CPAP: No Currently Using BIPAP: No Cardiac: Yes Atrial Fibrillation, Chronic Edema/Swelling, Coronary Artery Disease, High Cholesterol, Hypertension, Peripheral Vascular Neurological: Yes Headaches /Migraines, Neuropathy 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 Sexually Transmitted Disease: No HIV/AIDS: No Renal Failure, Dialysis Gastrointestinal: Yes Chronic Constipation Musculoskeletal: Yes (BILATERAL CARPAL TUNNEL SYMPTOMS; LEFT BKA, LEFT STUMP FRACTURE) Arthritis, Chronic Back Pain, Fractures Endocrine: Yes (DKA IN PAST ) Diabetes, Insulin dep Loss of Vision: Denies Hearing Impairment: Denies, Hard of Hearing Cancer: No Psychosocial: No Integumentary: Yes (DIABETIC ULCERS) Blood Disorders: No Adverse Reaction/Blood Tranf: No Family Medical History Reviewed Nursing Family Hx Diabetes mellitus Family history: Asthma 09 BROTHER No Family History of: AIDS Abdominal aortic aneurysm [place]'s disease Alcoholism Alzheimer's disease Aphasia Arthritis Asthma Cancer of mouth Cardiovascular disease Cataracts Colon cancer Completed stroke Congenital disease Congenital heart disease Coronary thrombosis Cystic fibrosis Deafness or hearing loss Dementia Drug abuse Dysphasia Fibrocystic disease of breast Gastroenteritis Glaucoma Headache disorder Hypercholesterolemia Hypertension Infertility Kidney disease Myocardial infarction Neoplasm Not obtainable due to adoption Osteoporosis Parkinson's disease Prostate cancer Psychosocial problem Respiratory disorder Seizure disorder Severe allergy Thyroid disease Tuberculosis Visual disorder Physical Exam Vital Signs Vital Signs - First Documented 05/10/18 17:47 Temp 96.0 Pulse 66 Resp 19 B/P (MAP) 130/117 (121) Pulse Ox 95 O2 Delivery Room Air Capillary Refill : Height, Weight, BMI Height: 5'1.00" Weight: 300lbs. 0.0oz. 136.154661sz; 53.4 BMI Method:Stated General Appearance: No Apparent Distress, Chronically ill, Obese HEENT: PERRL/EOMI, Pharynx Normal Neck: Non Tender, Supple Respiratory: Lungs Clear, Normal Breath Sounds Cardiovascular: Regular Rate, Rhythm, No Murmur Gastrointestinal: Non Tender, Soft Back: Normal Inspection, No CVA Tenderness, No Vertebral Tenderness Extremity: Non Tender, Pedal Edema, Other (left AKA) Neurologic/Psychiatric: Alert, Oriented x3 Skin: Warm/Dry, Ecchymosis (multiple areas of ecchymosis to her lower extremities. Multiple areas of excoriations to the lower extremities especially ) Progress/Results/Core Measures Suspected Sepsis SIRS Temperature: Pulse: Respiratory Rate: Laboratory Tests 05/10/18 18:35: White Blood Count 8.0 Blood Pressure / Mean: Laboratory Tests 05/10/18 18:35: Creatinine 7.76#H, Platelet Count 133 Results/Orders Lab Results Laboratory Tests Test 05/10/18 18:35 Range/Units White Blood Count 8.0 4.3-11.0 10^3/uL Red Blood Count 2.92 L 4.35-5.85 10^6/uL Hemoglobin 9.2 L 11.5-16.0 G/DL Hematocrit 31 L 35-52 % Mean Corpuscular Volume 108 H 80-99 FL Mean Corpuscular Hemoglobin 32 25-34 PG Mean Corpuscular Hemoglobin Concent 29 L 32-36 G/DL Red Cell Distribution Width 20.7 H 10.0-14.5 % Platelet Count 133 130-400 10^3/uL Mean Platelet Volume 12.9 H 7.4-10.4 FL Neutrophils (%) (Auto) 57 42-75 % Lymphocytes (%) (Auto) 28 12-44 % Monocytes (%) (Auto) 8 0-12 % Eosinophils (%) (Auto) 7 0-10 % Basophils (%) (Auto) 0 0-10 % Neutrophils # (Auto) 4.6 1.8-7.8 X 10^3 Lymphocytes # (Auto) 2.2 1.0-4.0 X 10^3 Monocytes # (Auto) 0.7 0.0-1.0 X 10^3 Eosinophils # (Auto) 0.5 H 0.0-0.3 10^3/uL Basophils # (Auto) 0.0 0.0-0.1 10^3/uL Sodium Level 139 135-145 MMOL/L Potassium Level 5.1 H 3.6-5.0 MMOL/L Chloride Level 98 98-107 MMOL/L Carbon Dioxide Level 23 21-32 MMOL/L Anion Gap 18 H 5-14 MMOL/L Blood Urea Nitrogen 36 H 7-18 MG/DL Creatinine 7.76 #H 0.60-1.30 MG/DL Estimat Glomerular Filtration Rate 6 BUN/Creatinine Ratio 5 Glucose Level 165 H 70-105 MG/DL Calcium Level 8.5 8.5-10.1 MG/DL C-Reactive Protein High Sensitivity 1.64 H 0.00-0.50 MG/DL My Orders Orders - ARLETTE DURÁN MD Basic Metabolic Panel (05/10/18 18:21) Cbc With Automated Diff (05/10/18 18:21) Hs C Reactive Protein (05/10/18 18:21) Vital Signs/I&O 05/10/18 17:47 Temp 96.0 Pulse 66 Resp 19 B/P (MAP) 130/117 (121) Pulse Ox 95 O2 Delivery Room Air Capillary Refill : Progress Note : Progress Note Seen and evaluated. IV by EMS. We will check labs to evaluate her current status with regard to the need for dialysis. Patient is not interested in transfer to another facility and wants to go home. Overall she is feeling better. She is known to have labile blood pressure and orthostatic hypotension and is on midodrine. She states that she has been taking that as directed. The vomiting and diarrhea are better than yesterday. Overall, right now she is just uncomfortable from sitting on the bed. She has relented to labs. We will check that and reassess. Patient is very hard stick due to poor vascular access. We will try to get lab draw. 2000: Labs complete and compared to previous. She does have elevated creatinine is slightly elevated potassium although not as bad as well with think considering that she missed dialysis on Saturday. She has dialysis on Saturday. Patient really wants to go home and is feeling better. Blood pressure has been 90s to 110 systolic throughout ED stay. Patient understands risk of going home. Advised to return for any concerns with her and her . Discharged home with return precautions. Patient verbalize understanding instructions and agreement with plan. Departure Impression Primary Impression: Orthostatic hypotension Additional Impressions: Diarrhea Qualified Codes: R19.7 - Diarrhea, unspecified End stage renal disease on dialysis Disposition: HOME, SELF-CARE Condition: Stable Transfer Method of Transfer: Private Vehicle Departure-Patient Inst. Decision time for Depature: 20:15 Referrals: [facility] (PCP/Family) Primary Care Physician Patient Instructions: Diarrhea in Adolescents and Adults, Orthostatic Hypotension (DC) Add. Discharge Instructions: All discharge instructions reviewed with patient and/or family. Voiced understanding. Clear liquid diet and minimize monitor your fluid intake as you have missed dialysis. Do not miss dialysis on Saturday. Return for increasing weakness, dizziness, chest pain, vomiting, breathing problems or other concerns as needed. Continue home medications as previously prescribed. ARLETTE DURÁN MD May 10, 2018 18:28
[2018-05-10 18:42] LABS: BASOPHILS % (AUTO) 0 % (0-10); EOSINOPHILS # (AUTO) 0.5 10^3/uL (0.0-0.3); EOSINOPHILS % (AUTO) 7 % (0-10); HEMATOCRIT 31 % (35-52); HEMOGLOBIN 9.2 G/DL (11.5-16.0); LYMPHOCYTES # (AUTO) 2.2 X 10^3 (1.0-4.0); LYMPHOCYTES % (AUTO) 28 % (12-44); MEAN CORPUSCULAR HEMOGLOBIN 32 PG (25-34); MEAN CORPUSCULAR HGB CONC 29 G/DL (32-36); MEAN CORPUSCULAR VOLUME 108 FL (80-99); MEAN PLATELET VOLUME 12.9 FL (7.4-10.4); MONOCYTES # (AUTO) 0.7 X 10^3 (0.0-1.0); MONOCYTES % (AUTO) 8 % (0-12); NEUTROPHILS # (AUTO) 4.6 X 10^3 (1.8-7.8); NEUTROPHILS % (AUTO) 57 % (42-75); PLATELET COUNT 133 10^3/uL (130-400); RED CELL DISTRIBUTION WIDTH 20.7 % (10.0-14.5)
[2018-05-10 19:03] LABS: CALCIUM 8.5 MG/DL (8.5-10.1); CREATININE SERUM 7.76 MG/DL (0.60-1.30); POTASSIUM 5.1 MMOL/L (3.6-5.0)
--- NOTE | 2018-05-10 19:10 | NUR ---
REPORT GIVEN TO BARTOLOME SOLORZANO
[2018-05-10 20:31] VITALS: BP 99/44
--- OUTSIDE RECORDS SUMMARY | 2018-05-10 23:08 | XMS REPORT | Clinical Summary ---
Author Author [facility] Organization [facility] Address Unknown Phone Unavailable Care Team Providers Care Carpenter Supervisor [employer]en [employer] Name Role Phone Mario Carver MD PCP Unavailable Source Comments Some departments are not documenting in the electronic medical record. If you do not see the information that you expected, contact Release of Information in the Health Information Management department at [phone] for further assistance in locating additional records.[facility] Allergies Not on File Medications Not [...] Self [address] (Home) [place] [address] Advance Directives Patient has advance care planning documents on file. For more information, please contact: [facility] [address] [place] [address]
== END 2018-05-10 20:31 | disposition home or self-care (01) ==
LOC: EDUNIT# 17:47 → ER 17:48
DX: I95.1 Orthostatic hypotension (principal); E11.22 Type 2 diabetes mellitus with diabetic chronic kidney disease; I12.0 Hypertensive chronic kidney disease with stage 5 chronic kidney disease or end stage renal disease; N18.6 End stage renal disease; R19.7 Diarrhea, unspecified; E11.641 Type 2 diabetes mellitus with hypoglycemia with coma; J43.9 Emphysema, unspecified; I48.91 Unspecified atrial fibrillation; I25.10 Atherosclerotic heart disease of native coronary artery without angina pectoris; E78.00 Pure hypercholesterolemia, unspecified; E11.51 Type 2 diabetes mellitus with diabetic peripheral angiopathy without gangrene; G43.909 Migraine, unspecified, not intractable, without status migrainosus; I73.9 Peripheral vascular disease, unspecified; Z88.7 Allergy status to serum and vaccine; Z91.048 Other nonmedicinal substance allergy status; Z87.19 Personal history of other diseases of the digestive system; Z89.512 Acquired absence of left leg below knee; Z79.82 Long term (current) use of aspirin; Z79.51 Long term (current) use of inhaled steroids; Z79.4 Long term (current) use of insulin; Z98.890 Other specified postprocedural states; Z90.710 Acquired absence of both cervix and uterus; Z93.0 Tracheostomy status; Z99.2 Dependence on renal dialysis; Z99.81 Dependence on supplemental oxygen
CPT/HCPCS: 36415; 80048; 85025; 86141

== ENCOUNTER 2018-05-11 21:48 | Emergency (ER) | payer MEDICARE, MEDICAID ==
[~2018-05-11] VITALS: Ht 162.6 cm; Wt 138.3 kg
[~2018-05-11 21:48] MED LIST changes: -ROSU20TA PO; +ROSU20TA2 PO
--- OUTSIDE RECORDS SUMMARY | 2018-05-11 21:54 | XMS REPORT | Clinical Summary ---
Author Author [facility] Organization [facility] Address Unknown Phone Unavailable Care Team Providers Care Precision Lens Grinder Name Role Phone Mario Carver MD PCP Unavailable Source Comments Some departments are not documenting in the electronic medical record. If you do not see the information that you expected, contact Release of Information in the Health Information Management department at [phone] for further assistance in locating additional records.[facility] Allergies Not on File Medications Not [...] Self [address] (Home) [place] [address] Advance Directives Patient has advance care planning documents on file. For more information, please contact: [facility] [address] [place] [address]
[2018-05-11 22:13] LABS: BASOPHILS % (AUTO) 0 % (0-10); EOSINOPHILS # (AUTO) 0.5 10^3/uL (0.0-0.3); EOSINOPHILS % (AUTO) 6 % (0-10); HEMATOCRIT 30 % (35-52); HEMOGLOBIN 8.6 G/DL (11.5-16.0); LYMPHOCYTES # (AUTO) 1.8 X 10^3 (1.0-4.0); LYMPHOCYTES % (AUTO) 21 % (12-44); MEAN CORPUSCULAR HEMOGLOBIN 32 PG (25-34); MEAN CORPUSCULAR HGB CONC 29 G/DL (32-36); MEAN CORPUSCULAR VOLUME 108 FL (80-99); MEAN PLATELET VOLUME 13.3 FL (7.4-10.4); MONOCYTES # (AUTO) 0.6 X 10^3 (0.0-1.0); MONOCYTES % (AUTO) 7 % (0-12); NEUTROPHILS # (AUTO) 5.6 X 10^3 (1.8-7.8); NEUTROPHILS % (AUTO) 66 % (42-75); PLATELET COUNT 139 10^3/uL (130-400); RED CELL DISTRIBUTION WIDTH 20.4 % (10.0-14.5); WHITE BLOOD COUNT 8.6 10^3/uL (4.3-11.0)
[2018-05-11 22:34] LABS: ALBUMIN 3.2 GM/DL (3.2-4.5); BILIRUBIN,TOTAL 0.4 MG/DL (0.1-1.0); CALCIUM 8.1 MG/DL (8.5-10.1); CREATININE SERUM 9.31 MG/DL (0.60-1.30); MAGNESIUM 1.7 MG/DL (1.8-2.4); POTASSIUM 5.3 MMOL/L (3.6-5.0)
[2018-05-11 22:39] LABS: INR 1.1 (0.8-1.4); PROTHROMBIN TIME PATIENT 14.2 SEC (12.2-14.7)
[2018-05-11 22:53] LABS: TSH (THYROID ANALYZER) 15.12 UIU/ML (0.35-4.94)
[2018-05-11] MEDS ORDERED: SOD POLYSTERENE 15 GM/60 ML (KAYEXALATE) UNIT DOSE PO ONE (23:00)
[2018-05-11] MEDS ORDERED: inSUlin (REGULAR) HUMAN 1 UNIT/0.01 ML (CHARGE PER UNIT) IV ONE (23:00)
[2018-05-11] MEDS ORDERED: DEXTROSE 50% 50 ML (IMS) SYR IV ONE (23:00)
[2018-05-11] MEDS ORDERED: MAGNESIUM 1 GM/100 ML IVPB 100 ML IV ONE ×2 (23:00→23:03)
[2018-05-11] MEDS ORDERED: CALCIUM GLUC. 10% 4.65 MEQ/10 ML VIAL IV ONE (23:00)
--- NOTE | 2018-05-11 23:59 | NUR ---
aileen to use central line per gentry galvan.
[2018-05-12] MEDS ORDERED: NOREPINEPHRINE 4 MG in NS (IVPB) 250 ML IV SCH ×4
[2018-05-12 00:08] LABS: FREE T4 (FREE THYROXINE) 0.96 NG/DL (0.70-1.48)
[2018-05-12 00:42] VITALS: BP 116/53
--- NOTE | 2018-05-12 05:35 | Diagnostic Imaging Report ---
INDICATION: Weakness. COMPARISON: 05/05/2018 FINDINGS: Single frontal radiographic view of the chest was obtained and demonstrates persistent moderate to severe cardiomegaly and interval development of mild pulmonary vascular congestion. Lungs also show diffuse prominence of the interstitium. There is no large effusion or pneumothorax. Bony structures show no gross acute abnormalities. IMPRESSION: 1. Persistent cardiomegaly, but with interval development of increased vascular congestion and probable interstitial pulmonary edema. Dictated by: Dictated on workstation # [id number]
--- NOTE | 2018-05-12 05:37 | Diagnostic Imaging Report ---
INDICATION: Central line placement. COMPARISON: 05/11/2018 FINDINGS: Single frontal radiograph of the chest was obtained and again demonstrates persistent moderate to severe cardiomegaly with pulmonary vascular congestion and diffuse prominence of the pulmonary interstitium. No large effusion or pneumothorax is identified. Osseous structures are stable. There is new right internal jugular central venous catheter, tip of which terminates in the high SVC. IMPRESSION: 1. Stable cardiomegaly with probable sequela of CHF including interstitial pulmonary edema. 2. New right internal jugular central venous catheter with tip in the high SVC. Dictated by: Dictated on workstation # [id number]
--- NOTE | 2018-07-08 10:26 | ED General ---
General Chief Complaint: General Problems/Pain Stated Complaint: WEAKNESS Nursing Triage Note: brought in by [facility] for weakness, low blood glucose Nursing Sepsis Screen: No Definite Risk Source of Information: Patient (PT IS A POOR HISTORIAN), EMS, Old Records History of Present Illness Date Seen by Provider: May 11, 2018 Time Seen by Provider: 21:52 Initial Comments PT ARRIVES VIA EMS FROM HOME PT C/O "WEAKNESS" STATES "ALL DAY I BEEN STANDING UP GOING TO THE COMMODE, TONIGHT MY LEGS WERE WEAK" PT STATES SHE HAS HAD DIARRHEA FOR THE LAST 3 DAYS--< 5 TIMES A DAY NO NAUSEA/VOMITING NO ABDOMINAL PAIN NO FEVER NO CHEST PAIN NO SHORTNESS OF BREATH NO COUGH NO FEVER EMS REPORT BP WAS 86/40 PT HAS ESRD AND IS ON DIALYSIS [id number]. NEXT SESSION IS TOMORROW ALSO HAS APPOINTMENT WITH THADDEUS HEBERT TOMORROW AT [facility] PCP: [facility] Allergies and Home Medications Allergies Coded Allergies: aloe vera (Verified Allergy, Severe, RASH, 11/05/13) flu vaccine [id number](4 yr+) (Verified Allergy, Mild, HIVES, 04/22/12) adhesive (Verified Allergy, Unknown, 05/01/07) Uncoded Allergies: TAPE (Allergy, Mild, 05/16/10) Home Medications Amlodipine Besylate 10 Mg Tablet, 10 MG PO HS, (Reported) Aspirin 81 Mg Tablet.dr, 81 MG PO DAILY, (Reported) Fluticasone Propionate 16 Gm [place].susp, 1 SPRAY NA DAILY PRN for ALLERGIES, ( Reported) Furosemide 40 Mg Tablet, 40 MG PO DAILY, (Reported) Gabapentin 300 Mg Capsule, 300 MG PO TID, (Reported) Hydrocodone/Acetaminophen 1 Each Tablet, 1 TAB PO Q6H PRN for PAIN-MODERATE, ( Reported) Hydroxyzine HCl 25 Mg Tablet, 25 MG PO TID PRN for an, (Reported) Insulin Glargine,Hum.rec.anlog 100 Unit/1 Ml Insuln.pen, 30 UNITS SQ HS, ( Reported) Insulin Lispro 100 Unit/1 Ml Insuln.pen, SQ HS, (Reported) 100-200 = 12-16 UNITS ABOVE 300 = 20 UNITS ABOVE 400 = CALL Isosorbide Mononitrate 30 Mg Tab.er.24h, 30 MG PO HS, (Reported) Loratadine 10 Mg Tablet, 10 MG PO HS, (Reported) Metoprolol Tartrate 100 Mg Tablet, 100 MG PO BID, (Reported) Montelukast Sodium 10 Mg Tablet, 10 MG PO HS, (Reported) Naproxen 375 Mg Tablet, 375 MG PO BID PRN for PAIN-MILD, (Reported) Ondansetron 8 Mg Tab.rapdis, 8 MG PO Q8H PRN for NAUSEA/VOMITING-1ST LINE, ( Reported) Ondansetron 4 Mg Tab.rapdis, 4 MG SL Q4H PRN for NAUSEA/VOMITING Prescribed by: MIRTA BERRIOS on 06/05/18 0652 Rosuvastatin Calcium 20 Mg Tablet, 20 MG PO HS, (Reported) Sevelamer Carbonate 800 Mg Tablet, 3,200 MG PO BID WITH MEALS, (Reported) TAKES 4 (800MG) TABLETS WITH BREAKFAST AND SUPPER AND TAKES 2 (800MG) TABLETS WITH SNACK Sevelamer Carbonate 800 Mg Tablet, 1,600 MG PO DAILY WITH SNACK, (Reported) TAKES 2 (800MG) TABLETS Vit B Cmplx 3/FA/Vit C/Biotin 1 Each Tablet, 1 TAB PO DAILY, (Reported) Patient Home Medication List Home Medication List Reviewed: Yes Review of Systems Review of Systems Constitutional: No fever; malaise, weakness Respiratory: no symptoms reported; No short of breath, No wheezing Cardiovascular: No chest pain Gastrointestinal: see HPI; No abdominal pain; diarrhea; No loss of appetite, No nausea, No vomiting Genitourinary: see HPI (PT DOES NOT MAKE URINE) Musculoskeletal: no symptoms reported Past Sqrwrpp-Nwunck-Eznmqb Hx Patient Social History Alcohol Use: Denies Use Recreational Drug Use: No Smoking Status: Never a Smoker 2nd Hand Smoke Exposure: No Recent Foreign Travel: No Contact w/Someone Who Travel: No Recent Infectious Disease Expo: No Recent Hopitalizations: No Immunizations Up To Date Tetanus Booster (TDap): Less than 5yrs PED Vaccines UTD: No Date of Pneumonia Vaccine: Sep 02, 2013 Seasonal Allergies Seasonal Allergies: Yes Past Medical History Surgeries: Yes (DIALYSIS AV FISTULA/GRAFT LEFT UPPER ARM, LEFT BKA) Amputation, Arteriovenous Shunt, Cardiac, Section, Dialysis, Hysterectomy, Orthopedic, Tracheostomy, Vascular Surgery Respiratory: Yes Asthma, COPD, Emphysema Currently Using CPAP: No Currently Using BIPAP: No Cardiac: Yes Atrial Fibrillation, Chronic Edema/Swelling, Coronary Artery Disease, High Cholesterol, Hypertension, Peripheral Vascular Neurological: Yes Headaches /Migraines, Neuropathy : No 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 Sexually Transmitted Disease: No HIV/AIDS: No Genitourinary: Yes Renal Failure, Dialysis Gastrointestinal: Yes Chronic Constipation Musculoskeletal: Yes Arthritis, Chronic Back Pain, Fractures Endocrine: Yes Diabetes, Insulin dep HEENT: No Loss of Vision: Denies Hearing Impairment: Denies, Hard of Hearing Cancer: No Psychosocial: No Integumentary: Yes (DIABETIC ULCERS) Blood Disorders: No Adverse Reaction/Blood Tranf: No Family Medical History Diabetes mellitus Family history: Asthma 09 BROTHER No Family History of: AIDS Abdominal aortic aneurysm [place]'s disease Alcoholism Alzheimer's disease Aphasia Arthritis Asthma Cancer of mouth Cardiovascular disease Cataracts Colon cancer Completed stroke Congenital disease Congenital heart disease Coronary thrombosis Cystic fibrosis Deafness or hearing loss Dementia Drug abuse Dysphasia Fibrocystic disease of breast Gastroenteritis Glaucoma Headache disorder Hypercholesterolemia Hypertension Infertility Kidney disease Myocardial infarction Neoplasm Not obtainable due to adoption Osteoporosis Parkinson's disease Prostate cancer Psychosocial problem Respiratory disorder Seizure disorder Severe allergy Thyroid disease Tuberculosis Visual disorder Physical Exam Vital Signs Capillary Refill : Less Than 3 Seconds Height, Weight, BMI Height: 5'4.00" Weight: 305lbs. 0.0oz. 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 Norm as Tested Skin: Normal Color, Warm/Dry, Other (MULTIPLE SORES/SCARS/SCABS TO ARMS, FACE, LEGS) Procedures/Interventions Lumen: triple Central Line Procedure: betadine prep, sterile drapes applied, sterile dressing applied Position: internal jugular (R) Anesthesia: local Volume Anesthetic (ccs): 5 Complications: none Post Position: sutured Progress/Results/Core Measures Suspected Sepsis Recent Fever Within 48 Hours: No Infection Criteria Present: None New/Unexplained Altered Menta: No Sepsis Screen: No Definite Risk SIRS Temperature:97.7 Pulse: 65 Respiratory Rate: 18 Blood Pressure 116 /53 Mean: 74 Results/Orders Vital Signs/I&O Capillary Refill : Less Than 3 Seconds Blood Pressure Mean: 74 Point of Care Testing Finger Stick Blood Glucose: 148 Blood Glucose Action Taken: rn notified Departure Communication (Admissions) 2306--CALLED [facility], PT [facility]REF[facility] [id number]--SPOKE WITH DR. GAY, ACCEPTS PT FOR ADMIT/TRANSFER, BUT INSISTS THAT PT HAVE CENTRAL LINE PLACED PRIOR TO TRANSPORT Impression Primary Impression: Fluid overload Additional Impressions: IDDM (insulin dependent diabetes mellitus) ESRD (end stage renal disease) on dialysis Hyperkalemia Hypotension Diarrhea Electrolyte imbalance Diabetes Disposition: XFER SHT-TRM HOSP Condition: Improved Transfer Transfer Facility: [facility] Method of Transfer: EMS Departure-Patient Inst. Referrals: [facility] (PCP) Primary Care Physician LORI PENALOZA DO Jul 08, 2018 10:26
== END 2018-05-12 00:42 | disposition short-term general hospital (02) ==
LOC: EDUNIT# 21:48 → ER 21:49
DX: E87.70 Fluid overload, unspecified (principal); R19.7 Diarrhea, unspecified; E87.5 Hyperkalemia; E87.8 Other disorders of electrolyte and fluid balance, not elsewhere classified; J43.9 Emphysema, unspecified; I48.91 Unspecified atrial fibrillation; I25.10 Atherosclerotic heart disease of native coronary artery without angina pectoris; E78.00 Pure hypercholesterolemia, unspecified; E11.22 Type 2 diabetes mellitus with diabetic chronic kidney disease; I12.0 Hypertensive chronic kidney disease with stage 5 chronic kidney disease or end stage renal disease; N18.6 End stage renal disease; E11.51 Type 2 diabetes mellitus with diabetic peripheral angiopathy without gangrene; I73.9 Peripheral vascular disease, unspecified; Z98.51 Tubal ligation status; I95.9 Hypotension, unspecified; Z88.7 Allergy status to serum and vaccine; Z91.048 Other nonmedicinal substance allergy status; Z87.19 Personal history of other diseases of the digestive system; Z79.82 Long term (current) use of aspirin; Z79.51 Long term (current) use of inhaled steroids; Z79.4 Long term (current) use of insulin; Z89.512 Acquired absence of left leg below knee; Z90.710 Acquired absence of both cervix and uterus; Z98.890 Other specified postprocedural states; Z93.0 Tracheostomy status
CPT/HCPCS: 36415; 71045; 80053; 80162; 82962; 83735; 84439; 84443; 84484; 85025; 85610; 85730; 93005; 93041; 96365; 96367; 96375

== ENCOUNTER 2018-05-15 10:03 | Emergency (ER) | payer MEDICARE, MEDICAID ==
[~2018-05-15] VITALS: Ht 162.6 cm; Wt 138.3 kg
[~2018-05-15 10:03] MED LIST changes: +ROSU20TA PO; -ROSU20TA2 PO
--- OUTSIDE RECORDS SUMMARY | 2018-05-15 10:12 | XMS REPORT | Clinical Summary ---
Author Author [facility] Organization [facility] Address Unknown Phone Unavailable Care Team Providers Care Supervisor Seaming Name Role Phone Mario Carver MD PCP Unavailable Source Comments Some departments are not documenting in the electronic medical record. If you do not see the information that you expected, contact Release of Information in the Health Information Management department at [phone] for further assistance in locating additional records.[facility] Allergies Not on File Medications Not on [...] Self [address] (Home) [place] [address] Advance Directives Patient has advance care planning documents on file. For more information, please contact: [facility] [address] [place] [address]
--- NOTE | 2018-05-15 10:56 | Diagnostic Imaging Report ---
INDICATION: Unresponsive COMPARISON: 05/12/2018 FINDINGS: Body habitus limits exam sensitivity. The heart is enlarged but may have decreased mildly from the prior. 5 lobed granular pulmonary opacities have also decreased favoring a reduction in edema. No adverse development. The IJ catheter removed. IMPRESSION: Improvements in pulmonary density similar but likely slightly decreased enlargement of the cardiac silhouette. No adverse development apparent. The sensitivity admittedly limited by body habitus. Dictated by: Dictated on workstation # [id number]
--- NOTE | 2018-05-15 10:59 | ED General ---
General Chief Complaint: Respiratory Problems Stated Complaint: SOA Nursing Triage Note: PT PRESENTS TO ED PER EMS FROM HOME WITH COMPLAINTS OF HYPOXIA AND LETHARGY AFTER BECOMING DISCONNECTED FROM HER O2/NASAL CANULA DURRING THE NIGHT. EMS REPORTS AFTER RECONNECTING PT TO HOME O2 HER O2 SAT INCREASED TO NORMAL RANGE. Nursing Sepsis Screen: No Definite Risk Source of Information: Patient Exam Limitations: No Limitations History of Present Illness Date Seen by Provider: May 15, 2018 Time Seen by Provider: 10:56 Initial Comments To ER with reports of hypoxia and G as well as hypotension. She is a end-stage renal disease on hemodialysis. She was just released from [facility] 2 days ago following an episode of hypotension. Family and patient herself reports that her blood pressure is always low after dialysis, in the 80s to 90s systolic range. She states that she feels fine in that regard. Upon awakening this morning her oxygen tubing had fallen off during the night and she was so hypoxic that her pulse oximeter at home wouldn't even read her states. They reapplied the oxygen and summoned EMS who brought her out here. She states that she feels "fine" Timing/Duration: 1-2 Days Severity: Moderate Allergies and Home Medications Allergies Coded Allergies: aloe vera (Verified Allergy, Severe, RASH, 11/05/13) flu vaccine [id number](4 yr+) (Verified Allergy, Mild, HIVES, 04/22/12) adhesive (Verified Allergy, Unknown, 05/01/07) Uncoded Allergies: TAPE (Allergy, Mild, 05/16/10) Home Medications Amlodipine Besylate 10 Mg Tablet, 10 MG PO HS, (Reported) Aspirin 81 Mg Tablet.dr, 81 MG PO DAILY, (Reported) Fluticasone Propionate 16 Gm [place].susp, 1 SPRAY NA DAILY PRN for ALLERGIES, ( Reported) Furosemide 40 Mg Tablet, 40 MG PO DAILY, (Reported) Gabapentin 300 Mg Capsule, 300 MG PO TID, (Reported) Hydrocodone/Acetaminophen 1 Each Tablet, 1 TAB PO Q6H PRN for PAIN-MODERATE, ( Reported) Hydroxyzine HCl 25 Mg Tablet, 25 MG PO TID PRN for an, (Reported) Insulin Glargine,Hum.rec.anlog 100 Unit/1 Ml Insuln.pen, 30 UNITS SQ HS, ( Reported) Insulin Lispro 100 Unit/1 Ml Insuln.pen, SQ HS, (Reported) 100-200 = 12-16 UNITS ABOVE 300 = 20 UNITS ABOVE 400 = CALL Isosorbide Mononitrate 30 Mg Tab.er.24h, 30 MG PO HS, (Reported) Loratadine 10 Mg Tablet, 10 MG PO HS, (Reported) Metoprolol Tartrate 100 Mg Tablet, 100 MG PO BID, (Reported) Montelukast Sodium 10 Mg Tablet, 10 MG PO HS, (Reported) Naproxen 375 Mg Tablet, 375 MG PO BID PRN for PAIN-MILD, (Reported) Ondansetron 8 Mg Tab.rapdis, 8 MG PO Q8H PRN for NAUSEA/VOMITING-1ST LINE, ( Reported) Rosuvastatin Calcium 20 Mg Tablet, 20 MG PO HS, (Reported) Sevelamer Carbonate 800 Mg Tablet, 3,200 MG PO BID WITH MEALS, (Reported) TAKES 4 (800MG) TABLETS WITH BREAKFAST AND SUPPER AND TAKES 2 (800MG) TABLETS WITH SNACK Sevelamer Carbonate 800 Mg Tablet, 1,600 MG PO DAILY WITH SNACK, (Reported) TAKES 2 (800MG) TABLETS Vit B Cmplx 3/FA/Vit C/Biotin 1 Each Tablet, 1 TAB PO DAILY, (Reported) Patient Home Medication List Home Medication List Reviewed: Yes Review of Systems Review of Systems Constitutional: see HPI; No chills, No fever; weakness EENTM: see HPI Respiratory: see HPI; No short of breath (no worse than usual) Genitourinary: no symptoms reported Musculoskeletal: no symptoms reported Skin: no symptoms reported Psychiatric/Neurological: No Symptoms Reported Hematologic/Lymphatic: No Symptoms Reported Immunological/Allergic: no symptoms reported Past Nmqxpuc-Ptksjn-Mlpxnd Hx Patient Social History Alcohol Use: Denies Use Recreational Drug Use: No Smoking Status: Never a Smoker 2nd Hand Smoke Exposure: No Recent Foreign Travel: No Contact w/Someone Who Travel: No Recent Infectious Disease Expo: No Recent Hopitalizations: No Physical Abuse: No Sexual Abuse: No Mistreated: No Fear: No Immunizations Up To Date Tetanus Booster (TDap): Less than 5yrs PED Vaccines UTD: No Date of Pneumonia Vaccine: Sep 02, 2013 Seasonal Allergies Seasonal Allergies: Yes Past Medical History Surgeries: Yes (DIALYSIS AV FISTULA/GRAFT LEFT UPPER ARM, LEFT BKA) Amputation, Arteriovenous Shunt, Cardiac, Section, Dialysis, Hysterectomy, Orthopedic, Tracheostomy, Vascular Surgery Respiratory: Yes Asthma, COPD, Emphysema Currently Using CPAP: No Currently Using BIPAP: No Cardiac: Yes Atrial Fibrillation, Chronic Edema/Swelling, Coronary Artery Disease, High Cholesterol, Hypertension, Peripheral Vascular Neurological: Yes Headaches /Migraines, Neuropathy 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 Disorders: No 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 History: Tubal Ligation Sexually Transmitted Disease: No HIV/AIDS: No Genitourinary: Yes Renal Failure, Dialysis Gastrointestinal: Yes Chronic Constipation Musculoskeletal: Yes Arthritis, Chronic Back Pain, Fractures Endocrine: Yes Diabetes, Insulin dep HEENT: No Loss of Vision: Denies Hearing Impairment: Denies, Hard of Hearing Cancer: No Psychosocial: No Integumentary: Yes (DIABETIC ULCERS) Blood Disorders: No Adverse Reaction/Blood Tranf: No Family Medical History Diabetes mellitus Family history: Asthma 09 BROTHER No Family History of: AIDS Abdominal aortic aneurysm Saad's disease Alcoholism Alzheimer's disease Aphasia Arthritis Asthma Cancer of mouth Cardiovascular disease Cataracts Colon cancer Completed stroke Congenital disease Congenital heart disease Coronary thrombosis Cystic fibrosis Deafness or hearing loss Dementia Drug abuse Dysphasia Fibrocystic disease of breast Gastroenteritis Glaucoma Headache disorder Hypercholesterolemia Hypertension Infertility Kidney disease Myocardial infarction Neoplasm Not obtainable due to adoption Osteoporosis Parkinson's disease Prostate cancer Psychosocial problem Respiratory disorder Seizure disorder Severe allergy Thyroid disease Tuberculosis Visual disorder Physical Exam Vital Signs Vital Signs - First Documented 05/15/18 10:11 Temp 96.7 Pulse 54 Resp 18 B/P (MAP) 99/52 (68) Pulse Ox 90 O2 Delivery Nasal Cannula O2 Flow Rate 4.00 Capillary Refill : Less Than 3 Seconds Height, Weight, BMI Height: 5'4.00" Weight: 305lbs. 0.0oz. 138.201806uo; 53.4 BMI Method:Stated General Appearance: No Apparent Distress, WD/WN, Chronically ill, Obese, Other (alert, speaks in full sentences, no respiratory distress. States that she feels fine.) Respiratory: No Accessory Muscle Use, No Respiratory Distress, Decreased Breath Sounds Cardiovascular: Regular Rate, Rhythm, Normal Peripheral Pulses Gastrointestinal: Non Tender, Soft Neurologic/Psychiatric: Alert, Oriented x3, No Motor/Sensory Deficits Progress/Results/Core Measures Suspected Sepsis Recent Fever Within 48 Hours: No Infection Criteria Present: None New/Unexplained Altered Menta: No Sepsis Screen: No Definite Risk SIRS Temperature:96.7 Pulse: 54 Respiratory Rate: 18 Laboratory Tests 05/15/18 10:50: White Blood Count 10.4 Blood Pressure 99 /52 Mean: 68 Laboratory Tests 05/15/18 10:50: Creatinine 5.43#H, Platelet Count 167, Total Bilirubin 0.4 Results/Orders Lab Results Laboratory Tests Test 05/15/18 10:50 Range/Units White Blood Count 10.4 4.3-11.0 10^3/uL Red Blood Count 2.75 L 4.35-5.85 10^6/uL Hemoglobin 8.8 L 11.5-16.0 G/DL Hematocrit 30 L 35-52 % Mean Corpuscular Volume 108 H 80-99 FL Mean Corpuscular Hemoglobin 32 25-34 PG Mean Corpuscular Hemoglobin Concent 30 L 32-36 G/DL Red Cell Distribution Width 19.2 H 10.0-14.5 % Platelet Count 167 130-400 10^3/uL Mean Platelet Volume 13.3 H 7.4-10.4 FL Neutrophils (%) (Auto) 79 H 42-75 % Lymphocytes (%) (Auto) 14 12-44 % Monocytes (%) (Auto) 6 0-12 % Eosinophils (%) (Auto) 1 0-10 % Basophils (%) (Auto) 0 0-10 % Neutrophils # (Auto) 8.2 H 1.8-7.8 X 10^3 Lymphocytes # (Auto) 1.5 1.0-4.0 X 10^3 Monocytes # (Auto) 0.6 0.0-1.0 X 10^3 Eosinophils # (Auto) 0.1 0.0-0.3 10^3/uL Basophils # (Auto) 0.0 0.0-0.1 10^3/uL Sodium Level 137 135-145 MMOL/L Potassium Level 5.3 H 3.6-5.0 MMOL/L Chloride Level 96 L 98-107 MMOL/L Carbon Dioxide Level 28 21-32 MMOL/L Anion Gap 13 5-14 MMOL/L Blood Urea Nitrogen 18 7-18 MG/DL Creatinine 5.43 #H 0.60-1.30 MG/DL Estimat Glomerular Filtration Rate 8 BUN/Creatinine Ratio 3 Glucose Level 117 H 70-105 MG/DL Calcium Level 8.4 L 8.5-10.1 MG/DL Corrected Calcium 8.9 8.5-10.1 MG/DL Total Bilirubin 0.4 0.1-1.0 MG/DL Aspartate Amino Transf (AST/SGOT) 40 H 5-34 U/L Alanine Aminotransferase (ALT/SGPT) 24 0-55 U/L Alkaline Phosphatase 94 40-136 U/L Total Protein 6.7 6.4-8.2 GM/DL Albumin 3.4 3.2-4.5 GM/DL My Orders Orders - CRYSTAL MATTA APRN Cbc With Automated Diff (05/15/18 10:19) Comprehensive Metabolic Panel (05/15/18 10:19) Chest 1 View, Ap/Pa Only (05/15/18 10:19) Vital Signs/I&O 05/15/18 10:11 Temp 96.7 Pulse 54 Resp 18 B/P (MAP) 99/52 (68) Pulse Ox 90 O2 Delivery Nasal Cannula O2 Flow Rate 4.00 Capillary Refill : Less Than 3 Seconds Blood Pressure Mean: 68 Diagnostic Imaging Diagonstic Imaging: Xray Plain Films/CT/US/NM/MRI: chest Comments NAME: VARGAS FISHER [facility] REC#: [id number] PT STATUS: REG ER : 1965 PHYSICIAN: CRYSTAL MATTA APRN ADMIT DATE: 05/15/18/ER Draft Date of Exam:05/15/18 CHEST 1 VIEW, AP/PA ONLY INDICATION: Unresponsive COMPARISON: 05/12/2018 FINDINGS: Body habitus limits exam sensitivity. The heart is enlarged but may have decreased mildly from the prior. 5 lobed granular pulmonary opacities have also decreased favoring a reduction in edema. No adverse development. The IJ catheter removed. IMPRESSION: Improvements in pulmonary density similar but likely slightly decreased enlargement of the cardiac silhouette. No adverse development apparent. The sensitivity admittedly limited by body habitus. Dictated on workstation # [id number] Dict: 05/15/18 1050 Trans: 05/15/18 1055 [facility] [id number] Interpreted by: FILIBERTO GAN Electronically signed by: Departure Communication (Admissions) She is scheduled for dialysis tomorrow. Impression Primary Impression: ESRD on dialysis Disposition: 01 HOME, SELF-CARE Condition: Stable Departure-Patient Inst. Decision time for Depature: 11:36 Referrals: [facility] [place] (PCP/Family) Primary Care Physician Patient Instructions: General (DC) Add. Discharge Instructions: 1. Return to ER for any concerns 2. Follow-up with your doctor next week 3. All discharge instructions reviewed with patient and/or family. Voiced understanding. CRYSTAL MATTA APRN May 15, 2018 10:59
[2018-05-15 11:03] LABS: BASOPHILS % (AUTO) 0 % (0-10); EOSINOPHILS # (AUTO) 0.1 10^3/uL (0.0-0.3); EOSINOPHILS % (AUTO) 1 % (0-10); HEMATOCRIT 30 % (35-52); HEMOGLOBIN 8.8 G/DL (11.5-16.0); LYMPHOCYTES # (AUTO) 1.5 X 10^3 (1.0-4.0); LYMPHOCYTES % (AUTO) 14 % (12-44); MEAN CORPUSCULAR HEMOGLOBIN 32 PG (25-34); MEAN CORPUSCULAR HGB CONC 30 G/DL (32-36); MEAN CORPUSCULAR VOLUME 108 FL (80-99); MEAN PLATELET VOLUME 13.3 FL (7.4-10.4); MONOCYTES # (AUTO) 0.6 X 10^3 (0.0-1.0); MONOCYTES % (AUTO) 6 % (0-12); NEUTROPHILS # (AUTO) 8.2 X 10^3 (1.8-7.8); NEUTROPHILS % (AUTO) 79 % (42-75); PLATELET COUNT 167 10^3/uL (130-400); RED CELL DISTRIBUTION WIDTH 19.2 % (10.0-14.5); WHITE BLOOD COUNT 10.4 10^3/uL (4.3-11.0)
[2018-05-15 11:22] LABS: ALBUMIN 3.4 GM/DL (3.2-4.5); BILIRUBIN,TOTAL 0.4 MG/DL (0.1-1.0); CALCIUM 8.4 MG/DL (8.5-10.1); CREATININE SERUM 5.43 MG/DL (0.60-1.30); TOTAL PROTEIN 6.7 GM/DL (6.4-8.2)
[2018-05-15 11:34] LABS: POTASSIUM 5.3 MMOL/L (3.6-5.0)
[2018-05-15 11:48] VITALS: BP 95/81
== END 2018-05-15 12:22 | disposition home or self-care (01) ==
LOC: EDUNIT# 10:03 → ER 10:04
DX: I13.11 Hypertensive heart and chronic kidney disease without heart failure, with stage 5 chronic kidney disease, or end stage renal disease (principal); E11.22 Type 2 diabetes mellitus with diabetic chronic kidney disease; N18.6 End stage renal disease; R09.02 Hypoxemia; J43.9 Emphysema, unspecified; J45.909 Unspecified asthma, uncomplicated; I48.91 Unspecified atrial fibrillation; I25.10 Atherosclerotic heart disease of native coronary artery without angina pectoris; E78.00 Pure hypercholesterolemia, unspecified; E11.51 Type 2 diabetes mellitus with diabetic peripheral angiopathy without gangrene; G43.909 Migraine, unspecified, not intractable, without status migrainosus; E11.621 Type 2 diabetes mellitus with foot ulcer; Z98.51 Tubal ligation status; Z99.2 Dependence on renal dialysis; Z99.81 Dependence on supplemental oxygen; Z88.8 Allergy status to other drugs, medicaments and biological substances; Z79.82 Long term (current) use of aspirin; Z79.4 Long term (current) use of insulin; Z90.710 Acquired absence of both cervix and uterus; Z93.0 Tracheostomy status; Z89.512 Acquired absence of left leg below knee
CPT/HCPCS: 36415; 71045; 80053; 85025

== ENCOUNTER 2018-05-16 02:20 | Emergency (ER) | payer MEDICARE, MEDICAID ==
[~2018-05-16] VITALS: Ht 162.6 cm; Wt 138.3 kg
--- OUTSIDE RECORDS SUMMARY | 2018-05-16 02:26 | XMS REPORT | Clinical Summary ---
Author Author [facility] Organization [facility] Address Unknown Phone Unavailable Care Team Providers Care Hospital Monitor Name Role Phone Mario Carver MD PCP Unavailable Source Comments Some departments are not documenting in the electronic medical record. If you do not see the information that you expected, contact Release of Information in the Health Information Management department at [phone] for further assistance in locating additional records.[facility] Allergies Not on File Medications Not on [...] Self [address] (Home) [place] [address] Advance Directives Patient has advance care planning documents on file. For more information, please contact: [facility] [address] [place] [address]
--- NOTE | 2018-05-16 02:35 | ED General ---
General Stated Complaint: HEALTH ISSUES Source of Information: Patient, EMS Exam Limitations: No Limitations History of Present Illness Date Seen by Provider: May 16, 2018 Time Seen by Provider: 02:23 Initial Comments The patient presents to ER by EMS from home with chief complaint that she is having low blood sugar, low blood pressure and low oxygen saturation. She's had no cough fevers chills. EMS reports her vital signs were normal with a borderline low blood pressure 100 systolic. They also report her blood sugars 130. Patient said she got up to get on the commode tonight and her left arm was flopping off as she was falling asleep and her became concerned rechecked her oxygen saturation and found it to be "78/60". When questioned she insisted that this was her oxygen saturation. Upon arrival she is having no coughs fevers chills and an oxygen saturation 98% on her baseline 4 L of oxygen. She does have a history of end-stage renal disease with dialysis on Saturday in just a few hours. She was here about 14 hours ago seen and released. Her heart rate is 82 her blood pressure 117/65 and her respiratory rate is 14. She denies having any cold clammy feeling chills, or other signs of hypoglycemia. She's not had any recent illness. Patient denies dysuria, diarrhea, constipation, chest pain or shortness of breath. The patient states she thinks maybe she's gotten to be fluid overload but denies increased edema, weight gain. Her arrived and expressed his concern that she was up around 2 in the morning and flopping her arm around and not responding correctly and he didn't check her blood sugar but he is concerned something might be wrong with her. She 's had no systemic or constitutional symptoms lately. She did remark that last time she did dialysis on Saturday they took 5 L of fluid off of her. He reports that her blood sugar at 9:00 last night was right around 100 however when she was having her episode he did not check it and EMS report was [address] Allergies and Home Medications Allergies Coded Allergies: aloe vera (Verified Allergy, Severe, RASH, 11/05/13) flu vaccine [id number](4 yr+) (Verified Allergy, Mild, HIVES, 04/22/12) adhesive (Verified Allergy, Unknown, 05/01/07) Uncoded Allergies: TAPE (Allergy, Mild, 05/16/10) Home Medications Amlodipine Besylate 10 Mg Tablet, 10 MG PO HS, (Reported) Aspirin 81 Mg Tablet.dr, 81 MG PO DAILY, (Reported) Fluticasone Propionate 16 Gm [place].susp, 1 SPRAY NA DAILY PRN for ALLERGIES, ( Reported) Furosemide 40 Mg Tablet, 40 MG PO DAILY, (Reported) Gabapentin 300 Mg Capsule, 300 MG PO TID, (Reported) Hydrocodone/Acetaminophen 1 Each Tablet, 1 TAB PO Q6H PRN for PAIN-MODERATE, ( Reported) Hydroxyzine HCl 25 Mg Tablet, 25 MG PO TID PRN for an, (Reported) Insulin Glargine,Hum.rec.anlog 100 Unit/1 Ml Insuln.pen, 30 UNITS SQ HS, ( Reported) Insulin Lispro 100 Unit/1 Ml Insuln.pen, SQ HS, (Reported) 100-200 = 12-16 UNITS ABOVE 300 = 20 UNITS ABOVE 400 = CALL Isosorbide Mononitrate 30 Mg Tab.er.24h, 30 MG PO HS, (Reported) Loratadine 10 Mg Tablet, 10 MG PO HS, (Reported) Metoprolol Tartrate 100 Mg Tablet, 100 MG PO BID, (Reported) Montelukast Sodium 10 Mg Tablet, 10 MG PO HS, (Reported) Naproxen 375 Mg Tablet, 375 MG PO BID PRN for PAIN-MILD, (Reported) Ondansetron 8 Mg Tab.rapdis, 8 MG PO Q8H PRN for NAUSEA/VOMITING-1ST LINE, ( Reported) Rosuvastatin Calcium 20 Mg Tablet, 20 MG PO HS, (Reported) Sevelamer Carbonate 800 Mg Tablet, 3,200 MG PO BID WITH MEALS, (Reported) TAKES 4 (800MG) TABLETS WITH BREAKFAST AND SUPPER AND TAKES 2 (800MG) TABLETS WITH SNACK Sevelamer Carbonate 800 Mg Tablet, 1,600 MG PO DAILY WITH SNACK, (Reported) TAKES 2 (800MG) TABLETS Vit B Cmplx 3/FA/Vit C/Biotin 1 Each Tablet, 1 TAB PO DAILY, (Reported) Patient Home Medication List Home Medication List Reviewed: Yes Review of Systems Review of Systems Constitutional: No chills, No diaphoresis EENTM: No ear discharge, No ear pain Respiratory: No cough, No short of breath Cardiovascular: No chest pain, No syncope Gastrointestinal: No abdominal pain, No constipation, No diarrhea, No nausea Genitourinary: No decreased output, No discharge, No dysuria Musculoskeletal: No back pain, No joint pain Past Eeuaxoc-Deurfp-Yihtej Hx Patient Social History Alcohol Use: Denies Use Recreational Drug Use: No Smoking Status: Never a Smoker 2nd Hand Smoke Exposure: No Recent Foreign Travel: No Contact w/Someone Who Travel: No Recent Hopitalizations: No Immunizations Up To Date Tetanus Booster (TDap): Less than 5yrs PED Vaccines UTD: No Date of Pneumonia Vaccine: Sep 02, 2013 Seasonal Allergies Seasonal Allergies: Yes Past Medical History Surgeries: Yes (DIALYSIS AV FISTULA/GRAFT LEFT UPPER ARM, LEFT BKA) Amputation, Arteriovenous Shunt, Cardiac, Section, Dialysis, Hysterectomy, Orthopedic, Tracheostomy, Vascular Surgery Respiratory: Yes Asthma, COPD, Emphysema Currently Using CPAP: No Currently Using BIPAP: No Cardiac: Yes Atrial Fibrillation, Chronic Edema/Swelling, Coronary Artery Disease, High Cholesterol, Hypertension, Peripheral Vascular Neurological: Yes Headaches /Migraines, Neuropathy 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 Sexually Transmitted Disease: No HIV/AIDS: No Genitourinary: Yes Renal Failure, Dialysis Gastrointestinal: Yes Chronic Constipation Musculoskeletal: Yes Arthritis, Chronic Back Pain, Fractures Endocrine: Yes Diabetes, Insulin dep HEENT: No Loss of Vision: Denies Hearing Impairment: Denies, Hard of Hearing Cancer: No Psychosocial: No Integumentary: Yes (DIABETIC ULCERS) Blood Disorders: No Adverse Reaction/Blood Tranf: No Family Medical History Diabetes mellitus Family history: Asthma 09 BROTHER No Family History of: AIDS Abdominal aortic aneurysm Saad's disease Alcoholism Alzheimer's disease Aphasia Arthritis Asthma Cancer of mouth Cardiovascular disease Cataracts Colon cancer Completed stroke Congenital disease Congenital heart disease Coronary thrombosis Cystic fibrosis Deafness or hearing loss Dementia Drug abuse Dysphasia Fibrocystic disease of breast Gastroenteritis Glaucoma Headache disorder Hypercholesterolemia Hypertension Infertility Kidney disease Myocardial infarction Neoplasm Not obtainable due to adoption Osteoporosis Parkinson's disease Prostate cancer Psychosocial problem Respiratory disorder Seizure disorder Severe allergy Thyroid disease Tuberculosis Visual disorder Physical Exam Vital Signs Vital Signs - First Documented 05/16/18 02:33 Temp 95.5 Pulse 53 Resp 22 B/P (MAP) 114/98 (103) Pulse Ox 96 O2 Delivery Nasal Cannula O2 Flow Rate 4.00 Capillary Refill : Height, Weight, BMI Height: 5'4.00" Weight: 305lbs. 0.0oz. [id number]; 53.4 BMI Method:Stated General Appearance: No Apparent Distress, Other (disheveled, right lower below the knee amputation historically) Eyes: Bilateral Eye Normal Inspection, Bilateral Eye PERRL, Bilateral Eye EOMI HEENT: PERRL/EOMI, TMs Normal, Normal ENT Inspection, Pharynx Normal, Moist Mucous Membranes Neck: Full Range of Motion, Normal Inspection, Non Tender, Supple Respiratory: Chest Non Tender, Lungs Clear, Normal Breath Sounds, No Accessory Muscle Use, No Respiratory Distress Cardiovascular: Regular Rate, Rhythm, No JVD, Normal Peripheral Pulses (radial wrist 2-4 bilateral symmetric) Gastrointestinal: Normal Bowel Sounds, Non Tender, Soft Extremity: Normal Capillary Refill, Normal Inspection Neurologic/Psychiatric: Alert, Oriented x3 Skin: Normal Color, Warm/Dry Progress/Results/Core Measures Suspected Sepsis SIRS Temperature: Pulse: Respiratory Rate: Laboratory Tests 05/16/18 04:05: White Blood Count 7.8 Blood Pressure / Mean: Laboratory Tests 05/16/18 04:05: Platelet Count 166 Results/Orders Lab Results Laboratory Tests Test 05/16/18 02:48 05/16/18 03:51 05/16/18 04:05 Range/Units Glucometer 93 70-110 MG/DL Group A Streptococcus Screen NEGATIVE NEGATIVE White Blood Count 7.8 4.3-11.0 10^3/uL Red Blood Count 2.69 L 4.35-5.85 10^6/uL Hemoglobin 8.7 L 11.5-16.0 G/DL Hematocrit 29 L 35-52 % Mean Corpuscular Volume 109 H 80-99 FL Mean Corpuscular Hemoglobin 32 25-34 PG Mean Corpuscular Hemoglobin Concent 30 L 32-36 G/DL Red Cell Distribution Width 19.3 H 10.0-14.5 % Platelet Count 166 130-400 10^3/uL Mean Platelet Volume 13.3 H 7.4-10.4 FL Neutrophils (%) (Auto) 54 42-75 % Lymphocytes (%) (Auto) 32 12-44 % Monocytes (%) (Auto) 9 0-12 % Eosinophils (%) (Auto) 5 0-10 % Basophils (%) (Auto) 0 0-10 % Neutrophils # (Auto) 4.2 1.8-7.8 X 10^3 Lymphocytes # (Auto) 2.5 1.0-4.0 X 10^3 Monocytes # (Auto) 0.7 0.0-1.0 X 10^3 Eosinophils # (Auto) 0.4 H 0.0-0.3 10^3/uL Basophils # (Auto) 0.0 0.0-0.1 10^3/uL Sodium Level 141 135-145 MMOL/L Potassium Level 4.1 3.6-5.0 MMOL/L Chloride Level 99 98-107 MMOL/L Carbon Dioxide Level 27 21-32 MMOL/L Anion Gap 15 H 5-14 MMOL/L Blood Urea Nitrogen 21 H 7-18 MG/DL Estimat Glomerular Filtration Rate 7 BUN/Creatinine Ratio 3 Glucose Level 75 70-105 MG/DL Calcium Level 8.7 8.5-10.1 MG/DL Smear Scan YES Micro Results Microbiology 05/16/18 Influenza Types A,B Antigen (CARI) - Final, Complete My Orders Orders - PATRICK BENTLEY Accucheck Stat ONCE (05/16/18 02:29) Basic Metabolic Panel (05/16/18 03:44) Cbc With Automated Diff (05/16/18 03:44) Rapid Strep A Screen (05/16/18 03:44) Influenza A And B Antigens (05/16/18 03:44) Chest 1 View, Ap/Pa Only (05/16/18 03:44) Vital Signs/I&O 05/16/18 02:33 Temp 95.5 Pulse 53 Resp 22 B/P (MAP) 114/98 (103) Pulse Ox 96 O2 Delivery Nasal Cannula O2 Flow Rate 4.00 Capillary Refill : Progress Note #1: Time: 02:36 Progress Note Her vital signs look very normal for her right now with a heart rate of 81, saturating 98% on 4 L and blood pressure 117/65. We'll get a blood sugar and observe her and then probably let her go home because none of her claims on arrival seemed to reflect her present status. Don't want to interfere with her getting to her dialysis today. No JVD or other evidence of being fluid overload. Vital signs of been fine since she's been here. Not sure about her having 5 L of fluid removed through dialysis but that's certainly possible. She has dialysis this morning. One of her 's concerns was that he wanted her shipped to [place] so that she can get dialysis done sooner but there is no way we would barely get her there to do inpatient dialysis any sooner than what she can do outpatient and as of now with normal vital signs there is no reason to send her. We explained this to him and he just told us for the third time that he had to hit the road today. I suspect that maybe his looking for a place for her to go so he can get out of town rather than there being any true medical complaint. However we have agreed to check some basic lab work, CRP, influenza and rapid strep. It's possible that her blood sugar has been low and we just haven't caught it. If That was the case then we should look for signs of infection. There were a few borderline blood pressures 98/50 however whenever we repositioned the cuff her blood pressure was normal. Progress Note #2: Time: 04:15 Progress Note Reviewed labs and x-rays from just the day prior. Nothing was concerning on those labs or x-ray. Despite this is insistent on doing a workup. We'll repeat basic labs and x-ray. Yesterday's x-ray showed interval improvement. Diagnostic Imaging Diagonstic Imaging: Xray Plain Films/CT/US/NM/MRI: chest (1v) Comments Stable film from 05/15/18 with no acute cardio pulmonary processes noted. Reviewed: Reviewed by Me Departure Impression Primary Impression: ESRD on dialysis Disposition: HOME, SELF-CARE Condition: Stable Departure-Patient Inst. Decision time for Depature: 04:30 Referrals: [facility] (PCP/Family) Primary Care Physician Patient Instructions: NO INSTRUCTIONS GIVEN Add. Discharge Instructions: Follow-up at dialysis today. If you are Still having some concerns follow up with primary care. If you have chest pain, shortness of breath or other concerning symptoms you should return to the nearest ER. Copy Copies To 1: ZAINA HURTADO TITUS J May 16, 2018 02:35
[2018-05-16 04:11] LABS: BASOPHILS % (AUTO) 0 % (0-10); EOSINOPHILS # (AUTO) 0.4 10^3/uL (0.0-0.3); EOSINOPHILS % (AUTO) 5 % (0-10); HEMATOCRIT 29 % (35-52); HEMOGLOBIN 8.7 G/DL (11.5-16.0); LYMPHOCYTES # (AUTO) 2.5 X 10^3 (1.0-4.0); LYMPHOCYTES % (AUTO) 32 % (12-44); MEAN CORPUSCULAR HEMOGLOBIN 32 PG (25-34); MEAN CORPUSCULAR HGB CONC 30 G/DL (32-36); MEAN CORPUSCULAR VOLUME 109 FL (80-99); MEAN PLATELET VOLUME 13.3 FL (7.4-10.4); MONOCYTES # (AUTO) 0.7 X 10^3 (0.0-1.0); MONOCYTES % (AUTO) 9 % (0-12); NEUTROPHILS # (AUTO) 4.2 X 10^3 (1.8-7.8); NEUTROPHILS % (AUTO) 54 % (42-75); PLATELET COUNT 166 10^3/uL (130-400); RED CELL DISTRIBUTION WIDTH 19.3 % (10.0-14.5); WHITE BLOOD COUNT 7.8 10^3/uL (4.3-11.0)
[2018-05-16 04:12] LABS: SMEAR SCAN COMMENT YES
[2018-05-16 04:27] LABS: CALCIUM 8.7 MG/DL (8.5-10.1); CREATININE SERUM 6.58 MG/DL (0.60-1.30); POTASSIUM 4.1 MMOL/L (3.6-5.0)
[2018-05-16 04:38] VITALS: BP 112/99
--- NOTE | 2018-05-16 06:50 | Diagnostic Imaging Report ---
INDICATION: Decreased O2 sats. Comparison with 05/15/2018. FINDINGS: There is increased cardiac size with little change in previous exam. There continues to be perihilar infiltrate more prominent on the left. There is basilar atelectasis consistent with pickwickian appearance. No definite pleural effusion is demonstrated. IMPRESSION: Cardiomegaly with perihilar infiltrates unchanged. No significant changes noted when compared with previous exam. Dictated by: Dictated on workstation # [id number]
== END 2018-05-16 04:39 | disposition home or self-care (01) ==
LOC: EDUNIT# 02:20 → ER 02:22
DX: E11.22 Type 2 diabetes mellitus with diabetic chronic kidney disease (principal); I12.9 Hypertensive chronic kidney disease with stage 1 through stage 4 chronic kidney disease, or unspecified chronic kidney disease; N18.6 End stage renal disease; J43.9 Emphysema, unspecified; G43.909 Migraine, unspecified, not intractable, without status migrainosus; I48.91 Unspecified atrial fibrillation; E11.51 Type 2 diabetes mellitus with diabetic peripheral angiopathy without gangrene; I73.9 Peripheral vascular disease, unspecified; I25.10 Atherosclerotic heart disease of native coronary artery without angina pectoris; E78.00 Pure hypercholesterolemia, unspecified; Z99.2 Dependence on renal dialysis; Z87.19 Personal history of other diseases of the digestive system; Z88.7 Allergy status to serum and vaccine; Z91.048 Other nonmedicinal substance allergy status; Z79.82 Long term (current) use of aspirin; Z98.890 Other specified postprocedural states; Z90.710 Acquired absence of both cervix and uterus; Z93.0 Tracheostomy status; Z89.512 Acquired absence of left leg below knee; Z79.51 Long term (current) use of inhaled steroids; Z79.4 Long term (current) use of insulin
CPT/HCPCS: 36415; 71045; 80048; 82962; 85025; 87430; 87804

== ENCOUNTER 2018-05-20 03:25 | Emergency (ER) | payer MEDICARE, MEDICAID ==
[~2018-05-20] VITALS: Ht 162.6 cm; Wt 138.3 kg
[2018-05-20] MEDS ORDERED: RT-ALBUTEROL/IPRATROPIUM 3 ML (DUONEB) VIAL INH ONE (03:45)
[2018-05-20 03:46] LABS: BASOPHILS % (AUTO) 0 % (0-10); EOSINOPHILS # (AUTO) 0.5 10^3/uL (0.0-0.3); EOSINOPHILS % (AUTO) 4 % (0-10); HEMATOCRIT 30 % (35-52); HEMOGLOBIN 8.9 G/DL (11.5-16.0); LYMPHOCYTES # (AUTO) 3.1 X 10^3 (1.0-4.0); LYMPHOCYTES % (AUTO) 28 % (12-44); MEAN CORPUSCULAR HEMOGLOBIN 33 PG (25-34); MEAN CORPUSCULAR HGB CONC 30 G/DL (32-36); MEAN CORPUSCULAR VOLUME 112 FL (80-99); MEAN PLATELET VOLUME 12.5 FL (7.4-10.4); MONOCYTES # (AUTO) 0.9 X 10^3 (0.0-1.0); MONOCYTES % (AUTO) 8 % (0-12); NEUTROPHILS # (AUTO) 6.6 X 10^3 (1.8-7.8); NEUTROPHILS % (AUTO) 59 % (42-75); PLATELET COUNT 212 10^3/uL (130-400); SMEAR SCAN COMMENT YES; WHITE BLOOD COUNT 11.1 10^3/uL (4.3-11.0)
[2018-05-20] MEDS ORDERED: NS (IVPB) 250 ML IV ONE (04:00)
[2018-05-20 04:12] LABS: ALBUMIN 3.4 GM/DL (3.2-4.5); BILIRUBIN,TOTAL 0.4 MG/DL (0.1-1.0); CALCIUM 9.3 MG/DL (8.5-10.1); CREATININE SERUM 5.7 MG/DL (0.60-1.30); MAGNESIUM 1.8 MG/DL (1.8-2.4); TOTAL PROTEIN 6.2 GM/DL (6.4-8.2)
--- NOTE | 2018-05-20 04:30 | NUR ---
PT HAS ASKED MULTIPLE TIMES, "WHY IS SHE SHAKING? THATS WHAT I WANT TO FIGURE OUT." PT VISIBLY SHAKES/JERKS WHEN SHE SEES STAFF WATCHING HER, STILL AND CALM WHEN SHE THINKS NO ONE IS WATCHING HER.
--- NOTE | 2018-05-20 04:33 | ED General ---
General Chief Complaint: Cardiac/General Problems Stated Complaint: LOW BLOOD PRESSURE Nursing Triage Note: TO ED VIA EMS. STATES FELT SHAKY AND BP LOW. HX ESRD WITH DIALYSIS SATURDAY. Nursing Sepsis Screen: No Definite Risk Source of Information: Patient, Family, Old Records Exam Limitations: No Limitations History of Present Illness Date Seen by Provider: May 20, 2018 Time Seen by Provider: 03:27 Initial Comments This 52-year-old woman with end-stage renal disease on dialysis presents to the emergency room with complaints of hypotension and "shakes". She had called EMS a couple hours prior but then declined transport. She called back and requested transport to the ER. Patient has severe chronic disease with chronic hypoxia, COPD, diabetes and end-stage renal failure. This is her 10th visit to this emergency room already this year. Blood pressure on assessment is in the 80s and 90s systolic. Oxygen saturation runs around 89-92 percent on 5 L of oxygen which is what she uses at home. Patient denies fever, vomiting, or cough. The shakes that she and her described were not observed by this provider. Allergies and Home Medications Allergies Coded Allergies: aloe vera (Verified Allergy, Severe, RASH, 11/05/13) flu vaccine [id number](4 yr+) (Verified Allergy, Mild, HIVES, 04/22/12) adhesive (Verified Allergy, Unknown, 05/01/07) Uncoded Allergies: TAPE (Allergy, Mild, 05/16/10) Home Medications Amlodipine Besylate 10 Mg Tablet, 10 MG PO HS, (Reported) Aspirin 81 Mg Tablet.dr, 81 MG PO DAILY, (Reported) Fluticasone Propionate 16 Gm [place].susp, 1 SPRAY NA DAILY PRN for ALLERGIES, ( Reported) Furosemide 40 Mg Tablet, 40 MG PO DAILY, (Reported) Gabapentin 300 Mg Capsule, 300 MG PO TID, (Reported) Hydrocodone/Acetaminophen 1 Each Tablet, 1 TAB PO Q6H PRN for PAIN-MODERATE, ( Reported) Hydroxyzine HCl 25 Mg Tablet, 25 MG PO TID PRN for an, (Reported) Insulin Glargine,Hum.rec.anlog 100 Unit/1 Ml Insuln.pen, 30 UNITS SQ HS, ( Reported) Insulin Lispro 100 Unit/1 Ml Insuln.pen, SQ HS, (Reported) 100-200 = 12-16 UNITS ABOVE 300 = 20 UNITS ABOVE 400 = CALL DR. Isosorbide Mononitrate 30 Mg Tab.er.24h, 30 MG PO HS, (Reported) Loratadine 10 Mg Tablet, 10 MG PO HS, (Reported) Metoprolol Tartrate 100 Mg Tablet, 100 MG PO BID, (Reported) Montelukast Sodium 10 Mg Tablet, 10 MG PO HS, (Reported) Naproxen 375 Mg Tablet, 375 MG PO BID PRN for PAIN-MILD, (Reported) Ondansetron 8 Mg Tab.rapdis, 8 MG PO Q8H PRN for NAUSEA/VOMITING-1ST LINE, ( Reported) Rosuvastatin Calcium 20 Mg Tablet, 20 MG PO HS, (Reported) Sevelamer Carbonate 800 Mg Tablet, 3,200 MG PO BID WITH MEALS, (Reported) TAKES 4 (800MG) TABLETS WITH BREAKFAST AND SUPPER AND TAKES 2 (800MG) TABLETS WITH SNACK Sevelamer Carbonate 800 Mg Tablet, 1,600 MG PO DAILY WITH SNACK, (Reported) TAKES 2 (800MG) TABLETS Vit B Cmplx 3/FA/Vit C/Biotin 1 Each Tablet, 1 TAB PO DAILY, (Reported) Patient Home Medication List Home Medication List Reviewed: Yes Review of Systems Review of Systems Constitutional: no symptoms reported EENTM: no symptoms reported Respiratory: see HPI Cardiovascular: no symptoms reported Gastrointestinal: no symptoms reported Genitourinary: see HPI : No Musculoskeletal: no symptoms reported Skin: see HPI Psychiatric/Neurological: See HPI Hematologic/Lymphatic: No Symptoms Reported Immunological/Allergic: no symptoms reported Past Dornlvt-Abtrlz-Owinqq Hx Past Med/Social Hx: Reviewed Nursing Past Med/Soc Hx Patient Social History Alcohol Use: Denies Use Recreational Drug Use: No 2nd Hand Smoke Exposure: No Recent Foreign Travel: No Contact w/Someone Who Travel: No Recent Infectious Disease Expo: No Recent Hopitalizations: No Immunizations Up To Date Tetanus Booster (TDap): Less than 5yrs PED Vaccines UTD: No Date of Pneumonia Vaccine: Sep 02, 2013 Seasonal Allergies Seasonal Allergies: Yes Past Medical History Surgeries: Yes (DIALYSIS AV FISTULA/GRAFT LEFT UPPER ARM, LEFT BKA) Amputation, Arteriovenous Shunt, Cardiac, Section, Dialysis, Hysterectomy, Orthopedic, Tracheostomy, Vascular Surgery Respiratory: Yes Asthma, COPD, Emphysema Currently Using CPAP: No Currently Using BIPAP: No Cardiac: Yes Atrial Fibrillation, Chronic Edema/Swelling, Coronary Artery Disease, High Cholesterol, Hypertension, Peripheral Vascular Neurological: Yes Headaches /Migraines, Neuropathy 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 Disorders: No 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 TECH History: Tubal Ligation Sexually Transmitted Disease: No HIV/AIDS: No Genitourinary: Yes Renal Failure, Dialysis Gastrointestinal: Yes Chronic Constipation Musculoskeletal: Yes Arthritis, Chronic Back Pain, Fractures Endocrine: Yes Diabetes, Insulin dep HEENT: No Loss of Vision: Denies Hearing Impairment: Denies, Hard of Hearing Cancer: No Psychosocial: No Integumentary: Yes (DIABETIC ULCERS) Blood Disorders: No Adverse Reaction/Blood Tranf: No Family Medical History Diabetes mellitus Family history: Asthma 09 BROTHER No Family History of: AIDS Abdominal aortic aneurysm [place]'s disease Alcoholism Alzheimer's disease Aphasia Arthritis Asthma Cancer of mouth Cardiovascular disease Cataracts Colon cancer Completed stroke Congenital disease Congenital heart disease Coronary thrombosis Cystic fibrosis Deafness or hearing loss Dementia Drug abuse Dysphasia Fibrocystic disease of breast Gastroenteritis Glaucoma Headache disorder Hypercholesterolemia Hypertension Infertility Kidney disease Myocardial infarction Neoplasm Not obtainable due to adoption Osteoporosis Parkinson's disease Prostate cancer Psychosocial problem Respiratory disorder Seizure disorder Severe allergy Thyroid disease Tuberculosis Visual disorder Physical Exam Vital Signs Vital Signs - First Documented 05/20/18 03:25 Temp 97.1 Pulse 64 Resp 17 B/P (MAP) 93/40 (57) Pulse Ox 92 O2 Delivery Nasal Cannula O2 Flow Rate 4.00 Capillary Refill : Less Than 3 Seconds Height, Weight, BMI Height: 5'4.00" Weight: 305lbs. 0oz. 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 Norm as Tested Skin: Normal Color, Warm/Dry, Other (chronic skin changes of the right leg/foot ) Progress/Results/Core Measures Suspected Sepsis Recent Fever Within 48 Hours: No Infection Criteria Present: None New/Unexplained Altered Menta: No Sepsis Screen: No Definite Risk SIRS Temperature:97.1 Pulse: 64 Respiratory Rate: 17 Laboratory Tests 05/20/18 03:38: White Blood Count 11.1H Blood Pressure 93 /40 Mean: 57 Laboratory Tests 05/20/18 03:38: Creatinine 5.70#H, Platelet Count 212, Total Bilirubin 0.4 Results/Orders Lab Results Laboratory Tests Test 05/20/18 03:38 Range/Units White Blood Count 11.1 H 4.3-11.0 10^3/uL Red Blood Count 2.68 L 4.35-5.85 10^6/uL Hemoglobin 8.9 L 11.5-16.0 G/DL Hematocrit 30 L 35-52 % Mean Corpuscular Volume 112 H 80-99 FL Mean Corpuscular Hemoglobin 33 25-34 PG Mean Corpuscular Hemoglobin Concent 30 L 32-36 G/DL Red Cell Distribution Width 20.0 H 10.0-14.5 % Platelet Count 212 130-400 10^3/uL Mean Platelet Volume 12.5 H 7.4-10.4 FL Neutrophils (%) (Auto) 59 42-75 % Lymphocytes (%) (Auto) 28 12-44 % Monocytes (%) (Auto) 8 0-12 % Eosinophils (%) (Auto) 4 0-10 % Basophils (%) (Auto) 0 0-10 % Neutrophils # (Auto) 6.6 1.8-7.8 X 10^3 Lymphocytes # (Auto) 3.1 1.0-4.0 X 10^3 Monocytes # (Auto) 0.9 0.0-1.0 X 10^3 Eosinophils # (Auto) 0.5 H 0.0-0.3 10^3/uL Basophils # (Auto) 0.0 0.0-0.1 10^3/uL Sodium Level 138 135-145 MMOL/L Potassium Level 4.0 3.6-5.0 MMOL/L Chloride Level 95 L 98-107 MMOL/L Carbon Dioxide Level 26 21-32 MMOL/L Anion Gap 17 H 5-14 MMOL/L Blood Urea Nitrogen 21 H 7-18 MG/DL Creatinine 5.70 #H 0.60-1.30 MG/DL Estimat Glomerular Filtration Rate 8 BUN/Creatinine Ratio 4 Glucose Level 308 H 70-105 MG/DL Calcium Level 9.3 8.5-10.1 MG/DL Corrected Calcium 9.8 8.5-10.1 MG/DL Magnesium Level 1.8 1.8-2.4 MG/DL Total Bilirubin 0.4 0.1-1.0 MG/DL Aspartate Amino Transf (AST/SGOT) 28 5-34 U/L Alanine Aminotransferase (ALT/SGPT) 20 0-55 U/L Alkaline Phosphatase 102 40-136 U/L B-Type Natriuretic Peptide 419.3 H <100.0 PG/ML Total Protein 6.2 L 6.4-8.2 GM/DL Albumin 3.4 3.2-4.5 GM/DL Smear Scan YES My Orders Orders - MIRTA STAPLETON MD BNP (05/20/18 03:35) Cbc With Automated Diff (05/20/18 03:35) Comprehensive Metabolic Panel (05/20/18 03:35) Magnesium (05/20/18 03:35) Saline Lock/Iv-Start (05/20/18 03:35) Monitor-Rhythm Ecg Trace Only (05/20/18 03:35) Chest 1 View, Ap/Pa Only (05/20/18 03:35) Albuterol/Ipra Inhalation Soln (Duoneb I (05/20/18 03:45) Svn Small Volume Nebulizer (05/20/18 03:35) Ns (Ivpb) (Sodium Chloride 0.9%) (05/20/18 04:00) Medications Given in ED Current Medications Medications Dose Ordered Sig/Lindy Route Start Time Stop Time Status Last Admin Dose Admin Albuterol/ Ipratropium 3 ml ONCE ONCE INH 05/20/18 03:45 05/20/18 03:46 DC 05/20/18 03:57 3 ML Sodium Chloride 250 ml @ 999 mls/hr Q16M ONCE IV 05/20/18 04:00 05/20/18 04:15 DC 05/20/18 04:02 999 MLS/HR Vital Signs/I&O 05/20/18 05/20/18 05/20/18 03:25 03:57 04:38 Temp 97.1 97.1 Pulse 64 84 Resp 17 17 B/P (MAP) 93/40 (57) 96/77 (83) Pulse Ox 92 91 95 O2 Delivery Nasal Cannula Nasal Cannula Nasal Cannula O2 Flow Rate 4.00 4.00 4.00 Capillary Refill : Less Than 3 Seconds Blood Pressure Mean: 57 Progress Note : Progress Note Workup is relatively unremarkable. Chest x-ray actually seems improved from prior. Patient is afebrile. Vital signs are near her baseline. DuoNeb treatment was given to help support her respiratory status until she can return home to her CPAP and nebulizer machine. Patient's expressed interest in transfer to [place] to investigate why she has tremors. The stated tremors were actually never observed by this provider. Tremors do not constitute a legitimate reason for out of town transfer which I explained to the patient and her . Patient was dismissed home and to the care of her . Diagnostic Imaging Diagonstic Imaging: Xray Plain Films/CT/US/NM/MRI: chest Comments Chest x-ray viewed by me and compared to prior. Subtle improvement from prior, especially in the left upper lobe. Departure Impression Primary Impression: Hypovolemia Additional Impressions: Hypotension Qualified Codes: I95.89 - Other hypotension; E86.1 - Hypovolemia End stage renal failure on dialysis Chronic respiratory failure with hypoxia Tremor Disposition: HOME, SELF-CARE Condition: Improved Departure-Patient Inst. Decision time for Depature: 04:25 Referrals: [facility] (PCP/Family) Primary Care Physician Patient Instructions: Hemodialysis Add. Discharge Instructions: Continue with your course of therapy with medications, oxygen, etc. as previously directed. Continue with your scheduled dialysis. Use CPAP when feeling short of breath and while sleeping. Return to care if you have notably worsening conditions or if you develop new symptoms such as fever over 100. All discharge instructions reviewed with patient and/or family. Voiced understanding. MIRTA STAPLETON MD May 20, 2018 04:32
[2018-05-20 04:38] VITALS: BP 96/77
--- NOTE | 2018-05-20 04:38 | NUR ---
PT GIVEN DC INSTRUCTIONS. STATES HE IS GOING HOME "TO GET EVERYTHING HE NEEDS TO GET HER IN THE CAR AND HOME" AT THIS TIME.
--- NOTE | 2018-05-20 05:10 | NUR ---
PT HAS RETURNED TO TAKE PT HOME POV AT THIS TIME.
--- NOTE | 2018-05-20 07:30 | Diagnostic Imaging Report ---
INDICATION: Hypotension. FINDINGS: Body habitus limits exam sensitivity and there is a very poor inspiratory volume. Enlargement of the cardiac silhouette redemonstrated. Left perihilar and suprahilar airspace opacities have improved. There has been no adverse change. IMPRESSION: Left greater than right perihilar and suprahilar airspace opacities improved. Sensitivity limited by body habitus with no obvious change and enlargement of the cardiac silhouette. Poor lung expansion. Dictated by: Dictated on workstation # [id number]
== END 2018-05-20 05:13 | disposition home or self-care (01) ==
LOC: EDUNIT# 03:25 → ER 03:27
DX: E86.1 Hypovolemia (principal); I95.9 Hypotension, unspecified; J96.11 Chronic respiratory failure with hypoxia; R25.1 Tremor, unspecified; E11.22 Type 2 diabetes mellitus with diabetic chronic kidney disease; I12.0 Hypertensive chronic kidney disease with stage 5 chronic kidney disease or end stage renal disease; N18.6 End stage renal disease; J43.9 Emphysema, unspecified; I48.91 Unspecified atrial fibrillation; E11.40 Type 2 diabetes mellitus with diabetic neuropathy, unspecified; I73.9 Peripheral vascular disease, unspecified; G43.909 Migraine, unspecified, not intractable, without status migrainosus; E78.00 Pure hypercholesterolemia, unspecified; I25.10 Atherosclerotic heart disease of native coronary artery without angina pectoris; Z99.2 Dependence on renal dialysis; Z98.51 Tubal ligation status; Z87.19 Personal history of other diseases of the digestive system; Z88.7 Allergy status to serum and vaccine; Z99.81 Dependence on supplemental oxygen; Z91.048 Other nonmedicinal substance allergy status; Z79.82 Long term (current) use of aspirin; Z79.4 Long term (current) use of insulin; Z98.890 Other specified postprocedural states; Z90.710 Acquired absence of both cervix and uterus; Z93.0 Tracheostomy status; Z96.652 Presence of left artificial knee joint
CPT/HCPCS: 36415; 71045; 80053; 83735; 83880; 85025; 93041; 94640; 96360

== ENCOUNTER 2018-06-05 05:48 | Emergency (ER) | payer MEDICARE, MEDICAID ==
[~2018-06-05] VITALS: Ht 162.6 cm; Wt 138.3 kg
[~2018-06-05 05:48] MED LIST changes: -ROSU20TA PO; +ROSU20TA2 PO
[2018-06-05] MEDS ORDERED: RT-ALBUTEROL/IPRATROPIUM 3 ML (DUONEB) VIAL INH ONE (06:15)
--- NOTE | 2018-06-05 06:44 | Diagnostic Imaging Report ---
Indication: Dyspnea. Comparison: 05/20/2018. Findings: Examination is limited by portable technique and patient's extreme body habitus. Marked enlargement of the cardiac silhouette is again noted. Worsening of hazy opacities in the bilateral parahilar regions. Due to limitations, assessment for pleural effusion is limited. No definitive pneumothorax. Impression: 1. Very limited exam due to patient's extreme body habitus. 2. Allowing for this there may be worsening of pulmonary opacities possibly due to pulmonary edema. Dictated by: Dictated on workstation # [id number]
[2018-06-05] MEDS ORDERED: ONDANSETRON 4 MG (ZOFRAN) ORAL DISSOLVE TAB SL ONE (06:45)
--- NOTE | 2018-06-05 06:50 | ED General ---
General Chief Complaint: Abdominal/GI Problems Stated Complaint: ILLNESS Nursing Triage Note: vomitting x10, "shaking" Nursing Sepsis Screen: No Definite Risk Source of Information: Patient Exam Limitations: No Limitations History of Present Illness Date Seen by Provider: Jun 05, 2018 Time Seen by Provider: 06:00 Initial Comments This 52-year-old woman with end-stage renal failure on dialysis presents to the emergency room via EMS. She is well known to this ER from prior visits. Primary complaints today are nausea and vomiting and tremors. Tremors have been present on prior visits as well but are exacerbated this morning. She skipped dialysis yesterday because she was not feeling well. She is noted to have mild hypoxia on her usual 4 L by nasal cannula with sats in the 87-90 percent range. This improves to sats in the 90s when oxygen is bumped to 5 L/ m. Patient has been afebrile. She denies abdominal pain. She additionally requested we look at some sores on her buttocks. Patient also received a DuoNeb treatment while in the ER which seemed to improve her breathing and helped her become more alert. reports she made almost no urine yesterday. She is alert and oriented and provides reasonably good history. Allergies and Home Medications Allergies Coded Allergies: aloe vera (Verified Allergy, Severe, RASH, 11/05/13) flu vaccine [id number](4 yr+) (Verified Allergy, Mild, HIVES, 04/22/12) adhesive (Verified Allergy, Unknown, 05/01/07) Uncoded Allergies: TAPE (Allergy, Mild, 05/16/10) Home Medications Amlodipine Besylate 10 Mg Tablet, 10 MG PO HS, (Reported) Aspirin 81 Mg Tablet.dr, 81 MG PO DAILY, (Reported) Fluticasone Propionate 16 Gm Donald.susp, 1 SPRAY NA DAILY PRN for ALLERGIES, ( Reported) Furosemide 40 Mg Tablet, 40 MG PO DAILY, (Reported) Gabapentin 300 Mg Capsule, 300 MG PO TID, (Reported) Hydrocodone/Acetaminophen 1 Each Tablet, 1 TAB PO Q6H PRN for PAIN-MODERATE, ( Reported) Hydroxyzine HCl 25 Mg Tablet, 25 MG PO TID PRN for an, (Reported) Insulin Glargine,Hum.rec.anlog 100 Unit/1 Ml Insuln.pen, 30 UNITS SQ HS, ( Reported) Insulin Lispro 100 Unit/1 Ml Insuln.pen, SQ HS, (Reported) 100-200 = 12-16 UNITS ABOVE 300 = 20 UNITS ABOVE 400 = CALL Isosorbide Mononitrate 30 Mg Tab.er.24h, 30 MG PO HS, (Reported) Loratadine 10 Mg Tablet, 10 MG PO HS, (Reported) Metoprolol Tartrate 100 Mg Tablet, 100 MG PO BID, (Reported) Montelukast Sodium 10 Mg Tablet, 10 MG PO HS, (Reported) Naproxen 375 Mg Tablet, 375 MG PO BID PRN for PAIN-MILD, (Reported) Ondansetron 8 Mg Tab.rapdis, 8 MG PO Q8H PRN for NAUSEA/VOMITING-1ST LINE, ( Reported) Ondansetron 4 Mg Tab.rapdis, 4 MG SL Q4H PRN for NAUSEA/VOMITING Prescribed by: MIRTA BERRIOS on 06/05/18 0652 Rosuvastatin Calcium 20 Mg Tablet, 20 MG PO HS, (Reported) Sevelamer Carbonate 800 Mg Tablet, 3,200 MG PO BID WITH MEALS, (Reported) TAKES 4 (800MG) TABLETS WITH BREAKFAST AND SUPPER AND TAKES 2 (800MG) TABLETS WITH SNACK Sevelamer Carbonate 800 Mg Tablet, 1,600 MG PO DAILY WITH SNACK, (Reported) TAKES 2 (800MG) TABLETS Vit B Cmplx 3/FA/Vit C/Biotin 1 Each Tablet, 1 TAB PO DAILY, (Reported) Patient Home Medication List Home Medication List Reviewed: Yes Review of Systems Review of Systems Constitutional: no symptoms reported EENTM: no symptoms reported Respiratory: see HPI Cardiovascular: no symptoms reported Gastrointestinal: see HPI Genitourinary: see HPI Musculoskeletal: no symptoms reported Skin: no symptoms reported Psychiatric/Neurological: No Symptoms Reported Hematologic/Lymphatic: No Symptoms Reported Immunological/Allergic: no symptoms reported Past Fsuffjm-Zomvma-Zcpuhn Hx Past Med/Social Hx: Reviewed Nursing Past Med/Soc Hx Patient Social History Alcohol Use: Denies Use Recreational Drug Use: No Smoking Status: Never a Smoker 2nd Hand Smoke Exposure: No Recent Foreign Travel: No Contact w/Someone Who Travel: No Recent Infectious Disease Expo: No Recent Hopitalizations: No Immunizations Up To Date Tetanus Booster (TDap): Less than 5yrs PED Vaccines UTD: No Date of Pneumonia Vaccine: Sep 02, 2013 Seasonal Allergies Seasonal Allergies: Yes Past Medical History Surgeries: Yes (DIALYSIS AV FISTULA/GRAFT LEFT UPPER ARM, LEFT BKA) Amputation, Arteriovenous Shunt, Cardiac, Section, Dialysis, Hysterectomy, Orthopedic, Tracheostomy, Vascular Surgery Respiratory: Yes Asthma, COPD, Emphysema Currently Using CPAP: No Currently Using BIPAP: No Cardiac: Yes Atrial Fibrillation, Chronic Edema/Swelling, Coronary Artery Disease, High Cholesterol, Hypertension, Peripheral Vascular Neurological: Yes Headaches /Migraines, Neuropathy : No 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 Disorders: 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 Sexually Transmitted Disease: No HIV/AIDS: No Genitourinary: Yes Renal Failure, Dialysis Gastrointestinal: Yes Chronic Constipation Musculoskeletal: Yes Arthritis, Chronic Back Pain, Fractures Endocrine: Yes Diabetes, Insulin dep HEENT: No Loss of Vision: Denies Hearing Impairment: Denies, Hard of Hearing Cancer: No Psychosocial: No Integumentary: Yes (DIABETIC ULCERS; CELLULITIS AND DRAINAGE FROM STUMP LEFT BKA) Blood Disorders: No Adverse Reaction/Blood Tranf: No Family Medical History Diabetes mellitus Family history: Asthma 09 BROTHER No Family History of: AIDS Abdominal aortic aneurysm Saad's disease Alcoholism Alzheimer's disease Aphasia Arthritis Asthma Cancer of mouth Cardiovascular disease Cataracts Colon cancer Completed stroke Congenital disease Congenital heart disease Coronary thrombosis Cystic fibrosis Deafness or hearing loss Dementia Drug abuse Dysphasia Fibrocystic disease of breast Gastroenteritis Glaucoma Headache disorder Hypercholesterolemia Hypertension Infertility Kidney disease Myocardial infarction Neoplasm Not obtainable due to adoption Osteoporosis Parkinson's disease Prostate cancer Psychosocial problem Respiratory disorder Seizure disorder Severe allergy Thyroid disease Tuberculosis Visual disorder Physical Exam Vital Signs Vital Signs - First Documented 06/05/18 05:48 Temp 98.2 Pulse 47 Resp 18 B/P (MAP) 95/35 (55) Pulse Ox 93 O2 Delivery Nasal Cannula O2 Flow Rate 4.00 Capillary Refill : Less Than 3 Seconds Height, Weight, BMI Height: 5'4.00" Weight: 305lbs. 0oz. 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 Norm as Tested, Other (diffuse tremor) Skin: Normal Color, Warm/Dry, Other (scabbed decubitus ulcers on the bilateral buttocks) Progress/Results/Core Measures Suspected Sepsis Recent Fever Within 48 Hours: No Infection Criteria Present: None New/Unexplained Altered Menta: No Sepsis Screen: No Definite Risk SIRS Temperature:98.2 Pulse: 47 Respiratory Rate: 18 Blood Pressure 95 /35 Mean: 55 Results/Orders My Orders Orders - MIRTA STAPLETON MD Albuterol/Ipra Inhalation Soln (Duoneb I (06/05/18 06:15) Svn Small Volume Nebulizer (06/05/18 06:12) I-Stat Bedside Testing (06/05/18 06:12) Accucheck Stat ONCE (06/05/18 06:12) Chest 1 View, Ap/Pa Only (06/05/18 06:12) Ondansetron Oral Dissolve Tab (Zofran (06/05/18 06:45) Medications Given in ED Current Medications Medications Dose Ordered Sig/Lindy Route Start Time Stop Time Status Last Admin Dose Admin Albuterol/ Ipratropium 3 ml ONCE ONCE INH 06/05/18 06:15 06/05/18 06:16 DC 06/05/18 06:19 3 ML Ondansetron HCl 4 mg ONCE ONCE SL 06/05/18 06:45 06/05/18 06:46 DC 06/05/18 06:45 4 MG Vital Signs/I&O 06/05/18 06/05/18 06/05/18 05:48 06:20 06:58 Temp 98.2 98.0 Pulse 47 48 Resp 18 18 B/P (MAP) 95/35 (55) 105/41 (62) Pulse Ox 93 94 92 O2 Delivery Nasal Cannula Nasal Cannula Nasal Cannula O2 Flow Rate 4.00 5.00 5.00 Capillary Refill : Less Than 3 Seconds Blood Pressure Mean: 55 Progress Note : Time: 07:40 Progress Note Vital signs were stable. Chest x-ray suggested worsening pulmonary edema which would necessitate dialysis. I-STAT was performed and showed a potassium of 6.1 and a creatinine of 7.4. Again this would suggest dialysis is needed. I discussed the situation with patient and . We elected to send her directly for dialysis rather than delaying her care further by performing more of a workup in the ER. Zofran 4 mg was given for nausea by sublingual route. This didn't improve her nausea. I examined 2 decubitus ulcers that were scabbed with indeterminate stage, one on either side of the sacrum. These were covered with Mepilex. She was advised to seek care with wound care again. The contact number was provided. I spoke with nursing staff at the dialysis center. They were agreeable to receive her if she could leave as soon as possible. Patient was discharged and assisted to the car by her , EMS and nephew. When she transferred to the car, she developed lightheadedness and vomited. I again discussed disposition with patient and . My concern was that bringing her back into the ER and performing further workup would further delay her dialysis which would likely to worsen her condition. After discussing options, patient requested a second dose of Zofran and to proceed on to dialysis. A second dose of sublingual Zofran was brought to the vehicle for the patient. Patient and family understand the dilemma given absence of nephrology and dialysis services at our facility. I invited them to have the dialysis staff call me upon their arrival. In addition, during her ER stay I explained to the patient that dialysis is important not only for removal of extra fluid but also for removing impurities from the blood that may be contributing to her tremors. Patient is sometimes reluctant to go to dialysis because she feels too much fluid has been removed. Diagnostic Imaging Diagonstic Imaging: Xray Plain Films/CT/US/NM/MRI: chest Comments Chest x-ray viewed by me and compared with prior. Report reviewed. See report below: NAME: VARGAS FISHER [facility] REC#: [id number] PT STATUS: REG ER : 1965 PHYSICIAN: MIRTA STAPLETON MD ADMIT DATE: 06/05/18/ER Draft Date of Exam:06/05/18 CHEST 1 VIEW, AP/PA ONLY Indication: Dyspnea. Comparison: 05/20/2018. Findings: Examination is limited by portable technique and patient's extreme body habitus. Marked enlargement of the cardiac silhouette is again noted. Worsening of hazy opacities in the bilateral parahilar regions. Due to limitations, assessment for pleural effusion is limited. No definitive pneumothorax. Impression: 1. Very limited exam due to patient's extreme body habitus. 2. Allowing for this there may be worsening of pulmonary opacities possibly due to pulmonary edema. Dictated on workstation # [id number] Dict: 06/05/1841 Trans: 06/05/1843 [facility] [id number] Interpreted by: LUCILA TAVAREZ MD Departure Impression Primary Impression: End stage renal failure on dialysis Additional Impressions: Tremor Nausea and vomiting Qualified Codes: R11.2 - Nausea with vomiting, unspecified Pulmonary edema Qualified Codes: J81.0 - Acute pulmonary edema Disposition: HOME, SELF-CARE Condition: Improved Departure-Patient Inst. Decision time for Depature: 06:48 Referrals: [facility] [place] (PCP/Family) Primary Care Physician Patient Instructions: Hemodialysis Add. Discharge Instructions: Go directly to dialysis. Use Zofran as prescribed for nausea and vomiting. 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 You may remove the dressings over the decubitus ulcers in a few days or earlier if they become soiled or bathing as needed. Roll often to prevent pressure on the buttocks and sacrum. Consider resuming wound care for these ulcers. The wound care number is [phone]. All discharge instructions reviewed with patient and/or family. Voiced understanding. Scripts Ondansetron (Ondansetron Odt) 4 Mg Tab.rapdis 4 MG SL Q4H PRN for NAUSEA/VOMITING, #10 TAB Prov: MIRTA STAPLETON MD 06/05/18 MIRTA STAPLETON MD Jun 05, 2018 06:50
[2018-06-05] MEDS ORDERED: ONDA4TAB11 SL (06:52)
[2018-06-05 06:58] VITALS: BP 105/41
== END 2018-06-05 07:22 | disposition home or self-care (01) ==
LOC: EDUNIT# 05:48 → ER 05:49
DX: E11.22 Type 2 diabetes mellitus with diabetic chronic kidney disease (principal); I12.0 Hypertensive chronic kidney disease with stage 5 chronic kidney disease or end stage renal disease; N18.6 End stage renal disease; R11.2 Nausea with vomiting, unspecified; R25.1 Tremor, unspecified; J81.1 Chronic pulmonary edema; J43.9 Emphysema, unspecified; I48.91 Unspecified atrial fibrillation; I25.10 Atherosclerotic heart disease of native coronary artery without angina pectoris; E78.00 Pure hypercholesterolemia, unspecified; E11.51 Type 2 diabetes mellitus with diabetic peripheral angiopathy without gangrene; I73.9 Peripheral vascular disease, unspecified; G43.909 Migraine, unspecified, not intractable, without status migrainosus; Z98.51 Tubal ligation status; Z99.2 Dependence on renal dialysis; Z88.7 Allergy status to serum and vaccine; Z91.048 Other nonmedicinal substance allergy status; Z79.82 Long term (current) use of aspirin; Z99.81 Dependence on supplemental oxygen; Z87.19 Personal history of other diseases of the digestive system; Z79.4 Long term (current) use of insulin; Z98.890 Other specified postprocedural states; Z90.710 Acquired absence of both cervix and uterus; Z89.512 Acquired absence of left leg below knee
CPT/HCPCS: 71045; 94640

== ENCOUNTER 2018-07-14 17:41 | Emergency (ER) | payer MEDICARE, MEDICAID ==
[~2018-07-14] VITALS: Ht 162.6 cm; Wt 129.3 kg
[~2018-07-14 17:41] MED LIST changes: +ONDA4TAB11 SL
--- OUTSIDE RECORDS SUMMARY | 2018-07-14 17:48 | XMS REPORT | Clinical Summary ---
Author Author [facility] Organization [facility] Address Unknown Phone Unavailable Care Team Providers Care Marketing Research Coordinator Name Role Phone Mario Carver MD PCP Unavailable Source Comments Some departments are not documenting in the electronic medical record. If you do not see the information that you expected, contact Release of Information in the Health Information Management department at [phone] for further assistance in locating additional records.[facility] Allergies Not on File Medications [...] 09/15/2017 VACCINE (1 of 2) INFLUENZA VACCINE 10/30/2018 Results Not on filefrom Last 3 Months Insurance Type Payer Benefit Subscriber ID Effective Phone Address Plan / Dates Group Medicare MEDICARE MEDICARE xxxxxxxxxx 2013-P PART A AND resent B Medicare MEDICARE MEDICARE xxxxxxxxxx 2014- TRANSPLANT Present (Home) [place] [address] Advance Directives Patient has advance care planning documents on file. For more information, please contact: [address] [address]
--- OUTSIDE RECORDS SUMMARY | 2018-07-14 17:49 | XMS REPORT ---
Author Author Migration, Doctor Organization [facility] Address Unknown Phone Unavailable Care Team Providers Care Mold Cooler Name Role Phone Migration, Doctor Unavailable Unavailable PROBLEMS Type Condition ICD9-CM Code [id number] Code Onset Dates Condition Status SNOMED Code Problem Cellulitis of right lower extremity L03.115 Active 674148432 Problem Neuropathy G62.9 Active 116384918 Problem Renal failure N19 Active 98317164 Problem Intra-dialytic hypotension I95.3 Active 860984076 Problem Amput below knee, unilat S88.119A Active 67566422 Problem Seasonal allergic rhinitis due to other allergic trigger J30.89 Active 757867357 Problem Chronic congestive heart failure, unspecified congestive heart failure type I50.9 Active 69773414 Problem Other chronic pain G89.29 Active 18171025 Problem 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 Active 6771698 Problem Primary insomnia F51.01 Active 7277001 Problem Paroxysmal atrial fibrillation I48.0 Active 157900234 Problem Angina pectoris I20.9 Active 822588606 Problem Type 2 diabetes mellitus with hyperglycemia, unspecified whether assisted insulin use E11.65 Active [id number] Problem Chronic congestive heart failure, unspecified heart failure type I50.9 Active 53060620 Problem Self-care deficit for toileting R46.0 Active 451001414 Problem Bronchitis J40 Active 44846164 Problem Observed sleep apnea G47.30 Active 51077243 Problem Unsteady gait R26.81 Active 726691598 ALLERGIES No Information ENCOUNTERS Encounter Location Date Diagnosis [facility] [address] [facility] [id number] [address] May, [place] [address], [place] [address] May, Diabetes type 2, controlled E11.9 [place] [address] [place] [id number], [place] [address] 56[address] May, [place] [id number], [place] [address] 3[address] 08 May, 2018 Pressure injury of coccygeal region, stage 2 L89.152 ; Nausea R11.0 ; Chronic congestive heart failure, unspecified congestive heart failure type I50.9 ; Observed sleep apnea G47.30 and Morbid obesity E66.01 [facility] [address] [address] May, [facility] [address] [place] [id number] [place] [address] 44611- 9406 May, [facility] [id number] [place] [address] 03734- 8990 May, [facility] [address] [id number] [place] [address] 01840- 9221 May, [facility] [id number] [place] [address] 69915- 8251 May, [facility] [id number] [place] [address] 21012- 5843 18 May, 2018 Renal failure N19 [facility] [id number] [place] [address] 51958- 1263 14 May, 2018 [facility] [address] [id number] [place] [address] 79797- 7058 13 May, 2018 Neuropathy G62.9 and Renal failure N19 [facility] [address] [id number] [place] [address] 34289- 5506 08 May, 2018 [facility] [address] [place] [address] 94731- 0173 07 May, 2018 [facility] [address] [address] [id number] [place] [address] 71962- 7168 04 May, 2018 [facility] [address] [place] [address] 03148- 7669 Apr, [facility] [address] [address] [id number] [place] [address] 44507- 1850 Apr, [facility] [address] [address] [id number] [place] [address] 96789- 0189 Apr, [facility] [address] [address] [id number] [place] [address] 87550- 4949 Mar, Diabetes type 2, controlled E11.9 [facility] [address] [address]- 5897 Mar, Paroxysmal atrial fibrillation I48.0 ; Observed sleep apnea G47.30 ; Unsteady gait R26.81 and Bilious vomiting with nausea R11.14 [facility] [address] 81676- 1708 Mar, [facility] [address] 06077- 4357 Mar, [facility] [address] 94395- 2266 Mar, [facility] [address] [address] [id number] [place] [address] 71815- 2808 Mar, [facility] [address] [id number] [place] [address] 94879- 3986 Mar, Diabetes type 2, controlled E11.9 ; BMI 50.0-59.9, adult Z68.43 ; Bronchitis J40 and Other chronic pain G89.29 [facility] [address] [place] [address] [id number] [place] [address] 55049- 1720 Mar, [facility] [address] [address] [id number] [place] [address] 92677- 3322 Mar, [facility] [address] [place] [address] [id number] [place] [address] 83948- 5547 Jan, [facility] [address] [id number] [place] [address] 97229- 0284 Jan, [facility] [address] [id number] [place] [address] 24498- 6134 Dec, [facility] [address], [place] [address]- 5830 Dec, [facility] [address] [address] [id number] [place] [address] 43117- 3169 Dec, [facility] [address] [place] [address] [id number] [place] [address] 26936- 9858 Nov, Pneumonia due to infectious organism, unspecified laterality , unspecified part of lung J18.9 and Self-care deficit for toileting R46.0 [facility] [address] [place] [address] [id number] [place] [address] 68105- 5409 Nov, [facility] [address] [place] [address] [id number] [place] [address] 15935- 5836 Oct, Diabetes type 2, controlled E11.9 ; Primary insomnia F51.01 and Bilateral headaches R51 [facility] [address] [place] [id number] [place] [address] 06504- 1495 Oct, [facility] [address] [place] [address] [id number] [place] [address] 25285- 3285 Sep, [facility] [address] [place] [id number] [place] [address] [id number] Sep, Dental examination Z01.20 and Dental caries K02.9 [facility] [address] [place] [address] 33350- 1819 Sep, [facility] [address] [place] [address] [id number] [place] [address] 97822- 0387 Sep, [facility] [address] [place] [address] 30103- 8999 Sep, Other chronic pain G89.29 and Pain in right knee M25.561 [facility] [address] [place] [address] [id number] [place] [address] 59901- 2980 Sep, [facility] [address] [place] [address] [id number] [place] [address] 71377- 3730 Aug, [facility] [address] [facility] [id number], [place] [address] 3696 Aug, 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 [facility] [address] [facility] [id number], [place] [address] 5829 15 Aug, 2017 [facility] [address] [facility] [id number], [place] [address]- 1059 11 Aug, 2017 Diabetes type 2, controlled E11.9 and Acute pain of right knee M25.561 [facility] [address] [facility] [id number], [place] [address]- 2533 09 Aug, 2017 [facility] [address] [facility] [id number] [place] [address] 30611- 1207 July, [facility] [address], [place] [address]- 4377 16 Jun, 2017 [facility] [address], [place] [address]- 0118 Jun, [facility] [address], [place] [address]- 1479 10 Jun, 2017 Diabetes type 2, controlled E11.9 [facility] [address], [place] [address]- 4098 Jun, [facility] [address] [place] [id number], [place] [address]- 3663 May, [facility] [address], [place] [address]- 8317 May, [facility] [address] [place] [address] [id number], [place] [address]- 1789 May, [facility] [address], [place] [address]- 8837 May, Chronic congestive heart failure, unspecified congestive heart failure type I50.9 [facility] [address], [place] [address]- 7136 May, Diabetes type 2, controlled E11.9 ; BMI 50.0-59.9, adult Z68.43 ; Chronic congestive heart failure, unspecified heart failure type I50.9 ; Angina pectoris I20.9 ; Seasonal allergic rhinitis due to other allergic trigger J30.89 and Renal failure N19 [facility] [address] [address] May, [facility] [address] [place] [address] [id number] [place] [address] 70986- 5906 May, [facility] [address] [place] [id number] [place] [address] 17820- 1036 May, [facility] [address] [place] [id number] [place] [address] 98819- 8090 May, [facility] [address] [place] [id number] [place] [address] 63292- 2340 May, [facility] [address] [place] [id number] [place] [address] 24288- 4514 Apr, BMI 50.0-59.9, adult Z68.43 [facility] [address] [place] [id number] [place] [address] 86473- 3241 Apr, BMI 50.0-59.9, adult Z68.43 ; Post-procedural fever R50.82 and Bronchitis J40 [facility] [address] [place] [address] 19633- 9152 Apr, Chronic congestive heart failure, unspecified congestive heart failure type I50.9 [facility] [address] [place] [id number] [place] [address] 96178- 4289 Jan, [facility] [address] [place] [id number] [place] [address] 11851- 3638 Jan, Diabetes type 2, controlled E11.9 [facility] [address] [place] [id number] [place] [address] 83490- 8197 Jan, Neuropathy G62.9 [facility] [address] [place] [facility] [place] [address]- 6323 16 Jan, 2017 [facility] [address] [facility] [id number] [place] [address]- 4383 Jan, [facility] [address] [facility] [id number] [place] [address]- 2389 Jan, [facility] [address] [facility] [id number] [place] [address]- 4045 Jan, [facility] [address] [facility] [id number] [place] [address]- 4887 Jan, [facility] [address] [place] [id number] [address]- 3036 Dec, [facility] [address] [facility] [id number] [place] [address]- 9958 Dec, [facility] [address], [place] [address]- 6586 Dec, Diabetes type 2, controlled E11.9 [facility] [address] [place] [id number] [address]- 0663 Dec, [facility] [address], [place] [address]- 1582 Dec, [facility] [address], [place] [address]- 8158 Dec, Chronic congestive heart failure, unspecified congestive heart failure type I50.9 [facility] [address] [place] [address] [id number], [place] [address]- 1535 Dec, [facility] [address] [facility] [id number], [place] [address]- 8550 Dec, [facility] [address] [place] [id number], [place] [address]- 0395 Nov, Chronic congestive heart failure, unspecified congestive heart failure type I50.9 [facility] [address] [place] [id number], [place] [address]- 7951 Nov, Chronic congestive heart failure, unspecified congestive heart failure type I50.9 [facility] [address] [facility] [id number], [place] [address]- 5242 Nov, [facility] [address], [place] [address]- 5195 Oct, [facility] [address], [place] [address]- 2846 Oct, [facility] [address] [place] [address] 18822- 0786 Oct, Chronic congestive heart failure, unspecified congestive heart failure type I50.9 [facility] [address] [place] [address] 37045- 3490 Oct, [facility] [address], [place] [address]- 5371 Oct, Pneumonia of both lungs due to infectious organism, unspecified part of lung J18.9 [facility] [address], [place] [address]- 8976 Oct, [facility] [address], [place] [address]- 9994 Oct, Diabetes type 2, controlled E11.9 [facility] [address], [place] [address]- 8211 Oct, Diabetes type 2, controlled E11.9 [facility] [address], [place] [address]- 7912 Sep, [facility] [address], [place] [address]- 3182 Sep, Neuropathy G62.9 [facility] [address], [place] [address]- 2492 Aug, Intra-dialytic hypotension I95.3 [facility] [address], [place] [address]- 3049 July, [facility] [address] [id number] [place] [address] 2546 July, [facility] [address] [facility] [id number] [place] [address] 2546 July, [facility] [address] [address] 2546 July, Amput below knee, unilat S88.119A [facility] [address] [facility] [id number] [place] [address] 2546 May, [facility] [address] [facility] [id number] [place] [address] 2546 May, Neuropathy G62.9 [facility] [address] [address] 2546 May, [facility] [address] [address] 2546 May, [facility] [address] [address] 2546 May, [facility] [address] [address]- 6386 May, [facility] [address] [address] 2546 May, Neuropathy G62.9 [facility] [address] [address] 2546 Apr, [facility] [address] [facility] [id number] [place] [address] 2546 Apr, [facility] [address] [address]- 5125 Apr, Diabetes type 2, controlled E11.9 and Renal failure N19 [facility] [address] [facility] [id number] [place] [address] 2546 Apr, [facility] [address] [address]- 8346 Apr, [facility] [address] [address]- 9672 Mar, [facility] [address] [address]- 4143 Mar, [facility] [address] [id number] [place] [address] 24626- 4763 Mar, [facility] [address] [id number] [place] [address], [place] [address]- 8151 Mar, [facility] [address] [id number] [place] [address], [place] [address]- 4908 Mar, [facility] [id number] [place] [address], [place] [address]- 0493 Jan, Localized edema R60.0 [facility] [id number] [place] [address] 90434- 7629 Jan, [facility] [address], [place] [address]- 7846 Jan, [facility] [id number] [place] [address] 08941- 6524 Jan, [facility] [address], [place] [address]- 6411 Jan, [facility] [address], [place] [address]- 7850 Jan, [facility] [address], [place] [address]- 4440 Jan, [facility] [id number] [place] [address] 81219- 2314 Dec, Diabetes type 2, controlled E11.9 and Chronic nonintractable headache, unspecified headache type R51 [facility] [address], [place] [address]- 7800 Dec, [facility] [address], [place] [address]- 1995 Dec, [facility] [id number] [place] [address] 76247- 4050 Nov, [facility] [address], [place] [address]- 0897 Nov, [facility] [id number] [place] [address] 08125- 0813 Oct, [facility] [address], [place] [address]- 4630 Oct, Migraine without status migrainosus, not intractable, unspecified migraine type G43.909 [facility] [address], [place] [address]- 9735 Oct, [facility] [address] [place] [address] 30894- 7350 Sep, Amput below knee, unilat S88.119A and Neuropathy G62.9 [facility] [address], [place] [address]- 3718 Sep, [facility] [id number] [place] [address] 18415- 1427 Sep, [facility] [address], [place] [address]- 9764 Sep, [facility] [address], [place] [address]- 9484 Aug, [facility] [address], [place] [address]- 5387 Aug, [facility] [id number] [place] [address] 36104- 6441 Aug, Diabetes type 2, controlled E11.9 [facility] [address], [place] [address]- 1446 Aug, [facility] [id number], [place] [address]- 5389 Jun, Diabetes type 2, controlled E11.9 and Neuropathy G62.9 [facility] [address] [facility] [id number] [place] [address]- 1476 14 Jul, 2015 [facility] [address] [facility] [id number] [place] [address]- 2946 Jun, [facility] [address] [facility] [id number] [place] [address]- 9254 Jun, [facility] [address] [facility] [id number] [place] [address]- 1611 Jun, [facility] [address] [facility] [id number] [place] [address]- 1406 May, [facility] [address] [address]- 5216 May, Diabetes type 2, controlled E11.9 [facility] [address] [address]- 7658 May, [facility] [address], [place] [address]- 3025 May, [facility] [address], [place] [address]- 8491 May, [facility] [address], [place] [address]- 4116 May, [facility] [id number], [place] [address] 17 May, 2015 [facility] [id number], [place] [address] 16 May, 2015 [facility] [id number] [address] 16 May, 2015 [facility] [id number] [address] 15 May, 2015 COPD (chronic obstructive pulmonary disease) J44.9 [facility] [id number] [address] 15 May, 2015 [facility] [id number], [place] [address] May, [facility] [id number] [place] [address] May, [facility] [id number], [place] [address] May, [facility] [id number] [address] May, [facility] [id number], [place] [address] May, Renal failure N19 and Pneumonia, organism unspecified, unspecified laterality, unspecified part of lung J18.9 [facility] [id number], [place] [address] Apr, [facility] [id number], [place] [address] Apr, [facility] [id number], [place] [address] Apr, [facility] [id number], [place] [address] Apr, Diabetes mellitus 250.00 [facility] [id number], [place] [address] Apr, [facility] [id number], [place] [address] Apr, [facility] [id number], [place] [address] Apr, [facility] [id number], [place] [address] Apr, [facility] [id number] [address] 31 Mar, 2015 [facility] [place] [facility] [address] [id number] [place] [address] 28 Mar, 2015 [facility] [place] [facility] [address] [id number] [place] [address] [address] 23 Mar, 2015 [facility] [place] [facility] [address] [id number] [place] [address]68 16 Mar, 2014 Renal failure N19 [facility] [place] [facility] [address] [id number] [place] [address] 14 Mar, 2015 [facility] [place] [facility] [address] [id number] [place] [address] 07 Mar, 2015 [facility] [place] [facility] [address] [facility] [id number] [place] [address] [address] 04 Mar, 2015 [facility] [place] [facility] [address] [id number] [place] [address] 24 Jan, 2015 [facility] [place] [facility] [address] [id number] [place] [address] 18 Jan, 2015 [facility] [place] [facility] [address] [facility] [id number] [place] [address] 17 Jan, 2015 [facility] [place] [facility] [address] [facility] [id number] [place] [address] Jan, [facility] [place] [facility] [address] [facility] [id number] [place] [address] Dec, [facility] [place] [facility] [address] [id number] [place] [address] Dec, [facility] [place] [facility] [address] [id number] [place] [address] Dec, [facility] [place] [facility] [address] [facility] [id number] [place] [address] Nov, [facility] [place] [facility] [address] [facility] [id number] [place] [address] Nov, [facility] [address] [facility] [id number] [place] [address] Nov, [facility] [address] [facility] [id number] [place] [address] Oct, [facility] [address] [facility] [id number] [place] [address] Oct, [facility] [address] [facility] [id number] [place] [address] Oct, Renal failure 586 and Obesity 278.00 [facility] [address] [facility] [id number] [place] [address] Oct, [facility] [id number] [address] Oct, [facility] [id number] [place] [address], [place] [address] Oct, [facility] [id number] [place] [address] Sep, [facility] [id number] [place] [address] Sep, [facility] [address] [address] Sep, Diabetes mellitus 250.00 and Congestive heart failure, unspecified 428.0 [facility] [address] [address] Aug, [facility] [id number] [address] Aug, [facility] [address] [address] Aug, [facility] [address] [facility] [id number], [place] [address] July, [facility] [address] [address] July, [facility] [address] [id number] [place] [address] July, Heart murmur, systolic 785.2 [facility] [address] [id number] [place] [address] 8[address] July, [facility] [address] [id number] [place] [address]- 6699 July, [facility] [address] [id number] [place] [address] 5[address] Jun, [facility] [address] [id number] [place] [address]- 1458 Jun, [facility] [address] [id number] [place] [address]- 0099 May, [facility] [address] [id number] [place] [address]- 1265 May, [facility] [address] [id number] [place] [address]- 5119 May, [facility] [address] [id number] [place] [address]- 9688 May, [facility] [address] [id number] [place] [address]- 9665 May, [facility] [address] [id number] [place] [address]- 1386 16 May, 2014 [facility] [address] [id number] [place] [address]- 8592 May, [facility] [address] [id number] [place] [address]- 5734 May, [facility] [address] [id number] [place] [address]- 4143 May, [facility] [address] [id number] [place] [address]- 0941 May, [facility] [place] [facility] [address] [id number] [place] [address]- 1132 May, 2014 [facility] [place] [facility] [address] [id number] [place] [address]- 3696 May, 2014 [facility] [place] [facility] [address] [facility] [id number] [place] [address]- 6003 May, 2014 [facility] [place] [facility] [address] [facility] [id number] [place] [address]- 5872 May, 2014 [facility] [place] [facility] [address] [id number] [place] [address]- 4499 May, 2014 [facility] [place] [facility] [address] [facility] [id number] [place] [address]- 8124 May, 2014 [facility] [place] [facility] [address] [facility] [id number] [place] [address]- 2027 May, 2014 [facility] [place] [facility] [address] [facility] [id number] [place] [address]- 2940 May, 2014 [facility] [place] [facility] [address] [facility] [id number] [place] [address]- 7059 May, 2014 [facility] [place] [facility] [address] [facility] [id number] [place] [address]- 8515 May, 2014 [facility] [place] [facility] [address] [facility] [id number] [place] [address]- 3479 16 May, 2014 [facility] [place] [facility] [address] [facility] [id number] [place] [address]- 2549 May, 2014 [facility] [place] [facility] [address] [facility] [id number] [place] [address]- 8303 May, 2014 [facility] [place] [facility] [address] [facility] [id number] [place] [address]- 9295 May, 2014 [facility] [place] [facility] [address] [facility] [id number] [place] [address]- 2103 02 May, 2014 [facility] [place] [facility] [address] [id number] [place] [address]- 1863 May, [facility] [place] [facility] [address] [id number] [place] [address]- 0951 Apr, [facility] [place] [facility] [address] [id number] [place] [address]- 8566 Apr, [facility] [place] [facility] [address] [id number] [place] [address]- 5476 Apr, [facility] [place] [facility] [address] [id number] [place] [address]- 4037 Apr, [facility] [place] [facility] [address] [id number] [place] [address]- 5536 Apr, [facility] [place] [facility] [address] [id number] [place] [address]- 0491 Apr, [facility] [place] [facility] [address] [id number] [place] [address]- 8640 Apr, [facility] [place] [facility] [address] [id number] [place] [address]- 0367 Apr, [facility] [place] [facility] [address] [id number] [place] [address]- 1556 Mar, [facility] [place] [facility] [address] [id number] [place] [address]- 4661 Mar, [facility] [place] [facility] [address] [id number] [place] [address]- 4403 Mar, [facility] [place] [facility] [address] [id number] [place] [address]- 6825 Mar, [facility] [place] [facility] [address] [id number] [place] [address]- 5659 Mar, [facility] [place] [facility] [address] [id number] [place] [address]- 1272 Mar, [facility] [place] [facility] [address] [id number] [place] [address]- 5046 Mar, [facility] [place] [facility] [address] [id number] [place] [address]- 2294 18 Mar, 2014 [facility] [place] [facility] [address] [id number] [place] [address]- 1250 Mar, [facility] [place] [facility] [address] [id number] [place] [address]- 7638 Mar, [facility] [place] [facility] [address] [id number] [place] [address]- 0989 Mar, [facility] [place] [facility] [address] [id number] [place] [address]- 4157 Mar, [facility] [place] [facility] [address] [id number] [place] [address]- 6600 Mar, [facility] [place] [facility] [address] [id number] [place] [address]- 4897 Mar, [facility] [place] [facility] [address] [id number] [place] [address]- 8111 Mar, [facility] [place] [facility] [address] [id number] [place] [address]- 4866 Mar, [facility] [place] [facility] [address] [id number] [place] [address]- 2626 Mar, [facility] [place] [facility] [address] [id number] [place] [address]- 2393 Mar, [facility] [place] [facility] [address] [id number] [place] [address]- 6732 Mar, [facility] [place] [facility] [address] [id number] [place] [address]- 9560 Mar, [facility] [place] [facility] [address] [id number] [place] [address]- 8076 Mar, [facility] [place] [facility] [address] [id number] [place] [address]- 1223 Mar, [facility] [place] [facility] [address] [id number] [place] [address]- 1020 Jan, [facility] [place] [facility] [address] [id number] [place] [address]- 1481 Jan, [facility] [place] [facility] [address] [id number] [place] [address]- 9336 Jan, [facility] [place] [facility] [address] [id number] [place] [address]- 5771 Jan, [facility] [place] [facility] [address] [id number] [place] [address]- 7706 Jan, [facility] [place] [facility] [address] [id number] [place] [address]- 1302 Jan, [facility] [place] [facility] [address] [id number] [place] [address]- 0245 Jan, [facility] [place] [facility] [address] [id number] [place] [address]- 6811 Jan, [facility] [place] [facility] [address] [id number] [place] [address]- 2711 Jan, [facility] [place] [facility] [address] [id number] [place] [address]- 4825 Jan, [facility] [place] [facility] [address] [id number] [place] [address]- 6271 Jan, [facility] [place] [facility] [address] [id number] [place] [address]- 2404 Jan, [facility] [place] [facility] [address] [id number], [place] [address]- 4626 Jan, [facility] [place] [facility] [address] [id number] [place] [address]- 0829 Jan, [facility] [place] [facility] [address] [id number] [place] [address]- 0724 Jan, [facility] [place] [facility] [address] [id number], [place] [address]- 0735 Jan, [facility] [place] [facility] [address] [id number] [place] [address]- 5734 Jan, [facility] [place] [facility] [address] [id number] [place] [address]- 0962 Jan, [facility] [place] [facility] [address] [id number] [place] Jan, [facility] [place] [facility] [address] [id number] [place] [address]- 2567 Jan, [facility] [place] [facility] [address] [id number] [place] [address]- 8377 Dec, [facility] [place] [facility] [address] [id number] [place] [address]- 0807 Dec, [facility] [place] [facility] [address] [id number] [place] [address]- 5429 Dec, [facility] [place] [facility] [address] [id number] [place] [address]- 1046 Dec, [facility] [place] [facility] [address] [id number] [place] [address]- 3160 Dec, [facility] [place] [facility] [address] [id number] [place] [address]- 7587 Dec, [facility] [place] [facility] [address] [id number] [place] [address]- 0024 Dec, [facility] [place] [facility] [address] [id number] [place] [address]- 1238 Dec, [facility] [place] [facility] [address] [id number] [place] [address]- 8790 Dec, [facility] [place] [facility] [address] [id number] [place] [address]- 5665 Dec, [facility] [place] [facility] [address] [id number] [place] [address]- 7199 08 Dec, 2013 [facility] [place] [facility] [address] [id number] [place] [address]- 9220 Dec, [facility] [place] [facility] [address] [id number] [place] [address]- 5773 Dec, [facility] [place] [facility] [address] [id number] [place] [address]- 8423 Dec, [facility] [place] [facility] [address] [id number] [place] [address]- 6470 Dec, [facility] [place] [facility] [address] [id number] [place] [address]- 7066 22 Nov, 2013 [facility] [place] [facility] [address] [id number] [place] [address]- 7164 22 Nov, 2013 [facility] [place] [facility] [address] [id number] [place] [address]- 5756 19 Nov, 2013 [facility] [place] [facility] [address] [id number] [place] [address]- 2314 19 Nov, 2013 [facility] [place] [facility] [address] [id number] [place] [address]- 0064 13 Nov, 2013 [facility] [place] [facility] [address] [id number] [place] [address] 2547 13 Nov, 2013 [facility] [place] [facility] [address] [id number] [place] [address]- 2544 10 Nov, 2013 [facility] [place] [facility] [address] [id number] [place] [address]- 9830 10 Nov, 2013 [facility] [place] [facility] [address] [id number] [place] [address]- 5009 08 Sep, 2013 [facility] [place] [facility] [address] [id number] [place] [address]- 2549 05 Sep, 2013 [facility] [place] [facility] [address] [id number] [place] [address]- 2548 05 Sep, 2013 [facility] [place] [facility] [address] [id number] [place] [address]- 254 03 Sep, 2013 [facility] [place] [facility] [address] [id number] [place] [address]- 0606 Nov, [facility] [place] [facility] [address] [id number] [place] [address]- 5750 Oct, [facility] [place] [facility] [address] [id number] [place] [address]- 8788 Oct, [facility] [place] [facility] [address] [id number] [place] [address]- 5961 Oct, [facility] [place] [facility] [address] [id number] [place] [address]- 3955 Oct, [facility] [place] [facility] [address] [id number] [place] [address]- 0733 Oct, [facility] [place] [facility] [address] [id number] [place] [address]- 6070 Sep, [facility] [place] [facility] [address] [id number] [place] [address]- 3588 Sep, [facility] [place] [facility] [address] [id number] [place] [address]- 7791 Sep, [facility] [place] [facility] [address] [id number] [place] [address]- 0389 Sep, [facility] [place] [facility] [address] [id number] [place] [address]- 1961 Aug, [facility] [place] [facility] [address] [id number] [place] [address]- 9018 Aug, [facility] [place] [facility] [address] [id number] [place] [address]- 6256 Aug, [facility] [place] [facility] [address] [id number] [place] [address]- 6366 Aug, [facility] [place] [facility] [address] [id number] [place] [address]- 5212 Aug, [facility] [place] [facility] [address] [id number] [place] [address]- 7050 Aug, [facility] [place] [facility] [address] [id number] [place] [address]- 1413 Aug, [facility] [place] [facility] [address] [id number] [place] [address]- 2702 Aug, [facility] [place] [facility] [address] [id number] [place] [address]- 2689 Aug, [facility] [place] [facility] [address] [id number] [place] [address]- 8474 Aug, [facility] [place] [facility] [address] [id number] [place] [address]- 3531 Aug, [facility] [place] [facility] [address] [id number] [place] [address]- 8109 Aug, [facility] [place] [facility] [address] [id number] [place] [address]- 0047 Aug, [facility] [place] [facility] [address] [id number] [place] [address]- 3943 Aug, [facility] [place] [facility] [address] [id number] [place] [address]- 2804 Aug, [facility] [place] [facility] [address] [id number] [place] [address]- 4138 Aug, [facility] [place] [facility] [address] [id number], [place] [address]- 1453 Aug, [facility] [place] [facility] [address] [id number], [place] [address]- 6701 Aug, [facility] [place] [facility] [address] [id number] [place] [address]- 3012 Aug, [facility] [place] [facility] [address] [id number] [place] [address]- 3509 Aug, [facility] [place] [facility] [address] [id number], [place] [address]- 3555 Aug, [facility] [place] [facility] [address] [id number], [place] [address]- 8221 Aug, [facility] [place] [facility] [address] [id number] [place] [address]- 0260 Aug, [facility] [place] [facility] [address] [id number] [place] [address]- 6013 Aug, [facility] [place] [facility] [address] [id number] [place] [address]- 7651 July, [facility] [place] [facility] [address] [id number] [place] [address]- 1012 July, [facility] [place] [facility] [address] [id number] [place] [address]- 3497 July, [facility] [place] [facility] [address] [id number] [place] [address]- 2967 July, [facility] [place] [facility] [address] [id number] [place] [address]- 8293 July, [facility] [place] [facility] [address] [id number] [place] [address]- 2873 July, [facility] [place] [facility] [address] [id number] [place] [address]- 3316 Jun, [facility] [place] [facility] [address] [id number] [place] [address]- 0726 Jun, [facility] [place] [facility] [address] [id number] [place] [address]- 2135 Jun, [facility] [place] [facility] [address] [id number] [place] [address]- 3065 Jun, [facility] [place] [facility] [address] [id number] [place] [address]- 8967 Jun, [facility] [place] [facility] [address] [id number] [place] [address]- 8320 Jun, [facility] [place] [facility] [address] [id number] [place] [address]- 2201 Jun, [facility] [place] [facility] [address] [id number] [place] [address]- 5116 Jun, [facility] [place] [facility] [address] [id number] [place] [address]- 7676 Jun, [facility] [place] [facility] [address] [id number] [place] [address]- 8966 Jun, [facility] [place] [facility] [address] [id number] [place] [address]- 8116 Jun, [facility] [place] [facility] [address] [id number] [place] [address]- 2394 Jun, [facility] [place] [facility] [address] [id number] [place] [address]- 6184 Jun, [facility] [place] [facility] [address] [id number] [place] [address]- 2514 Jun, [facility] [place] [facility] [address] [id number] [place] [address]- 5791 Jun, [facility] [place] [facility] [address] [id number] [place] [address]- 8896 May, [facility] [place] [facility] [address] [id number] [place] [address]- 0051 May, [facility] [place] [facility] [address] [id number] [place] [address]- 3582 May, [facility] [place] [facility] [address] [id number] [place] [address] May, [facility] [place] [facility] [address] [id number] [place] [address] May, [facility] [place] [facility] [address] [id number] [place] [address] May, [facility] [place] [facility] [address] [id number] [place] [address] May, [facility] [place] [facility] [address] [id number] [place] [address] May, [facility] [place] [facility] [address] [id number] [place] [address] May, [facility] [place] [facility] [address] [id number] [place] [address] May, [facility] [place] [facility] [address] [id number] [place] [address] May, [facility] [place] [facility] [address] [id number] [place] [address] May, [facility] [place] [facility] [address] [id number] [place] [address] May, [facility] [place] [facility] [address] [id number] [place] [address]- [address] May, [facility] [place] [facility] [address] [id number] [place] [address] May, [facility] [place] [facility] [address] [id number] [place] [address] May, [facility] [place] [facility] [address] [id number] [place] [address] May, [facility] [place] [facility] [address] [id number] [place] [address] Apr, [facility] [place] [facility] [address] [id number] [place] [address]- [address] Apr, [facility] [place] [facility] [address] [id number] [place] [address]- [address] Apr, [facility] [place] [facility] [address] [id number] [place] [address]- [address] Apr, [facility] [place] [facility] [address] [id number] [place] [address]- [address] Apr, [facility] [place] [facility] [address] [id number] [place] [address]- [address] Apr, [facility] [place] [facility] [address] [id number] [place] [address]- [address] 10 Apr, 2013 [facility] [address] [id number] [place] [address] Apr, [facility] [place] [facility] [address] [id number] [place] [address] 28[address] Apr, [facility] [address] [id number] [place] [address]- [address]687 Apr, [facility] [address] [id number] [place] [address] Apr, [facility] [address] [id number] [place] [address] Apr, [facility] [address] [id number] [place] [address] Apr, [facility] [address] [id number] [place] [address]30 Apr, [facility] [address] [id number] [place] [address] Apr, [facility] [address] [id number] [place] [address]- [address] Apr, [facility] [address] [id number] [place] [address] 1883 Mar, [facility] [address] [id number] [place] [address]347 Mar, [facility] [address] [id number] [place] [address] Mar, [facility] [place] [facility] [address] [id number] [place] [address]288 Mar, [facility] [place] [facility] [address] [id number] [place] [address]- 8446 Mar, [facility] [place] [facility] [address] [id number] [place] [address] 9247 Mar, [facility] [address] [id number] [place] [address]- [address] 18 Mar, 2013 [facility] [place] [facility] [address] [id number] [place] [address]- 0742 Mar, [facility] [place] [facility] [address] [id number] [place] [address]- 7718 Mar, [facility] [place] [facility] [address] [id number] [place] [address]- [address] Mar, [facility] [place] [facility] [address] [id number] [place] [address]- [address]378 Mar, [facility] [place] [facility] [address] [id number] [place] [address]24 Mar, [facility] [place] [facility] [address] [id number] [place] [address]- 1422 Mar, [facility] [place] [facility] [address] [id number] [place] [address]- [address]41 Mar, [facility] [place] [facility] [address] [id number] [place] [address]- 0865 Mar, [facility] [place] [facility] [address] [id number] [place] [address]- 0972 Mar, [facility] [place] [facility] [address] [id number] [place] [address]- 1767 Mar, [facility] [place] [facility] [address] [id number], [place] [address] Mar, [facility] [place] [facility] [address] [id number] [place] [address]- 2519 Jan, [facility] [place] [facility] [address] [id number] [place] [address]- [address]646 Jan, [facility] [place] [facility] [address] [id number] [place] [address]- 0690 Jan, [facility] [place] [facility] [address] [id number] [place] [address]- 3089 Jan, [facility] [address] [id number] [place] [address]- [address] 27 Nov, 2012 [facility] [place] [facility] [address] [id number] [place] [address]- [address] 10 Nov, 2012 [facility] [place] [facility] [address] [id number] [place] [address]- [address]876 Nov, [facility] [place] [facility] [address] [id number] [place] [address]- [address]137 Nov, [facility] [place] [facility] [address] [id number] [place] [address]- 7587 Oct, [facility] [place] [facility] [address] [id number] [place] [address]- 72[address] Oct, [facility] [address] [id number] [place] [address]- [address] Oct, [facility] [place] [facility] [address] [id number] [place] [address]- 1062 Oct, [facility] [place] [facility] [address] [id number] [place] [address]- 8938 Sep, [facility] [place] [facility] [address] [id number] [place] [address]- 2029 Sep, [facility] [place] [facility] [address] [id number] [place] [address]- 6684 Sep, [facility] [place] [facility] [address] [id number] [place] [address]- 3039 Sep, [facility] [place] [facility] [address] [id number] [place] [address]- 5092 Sep, [facility] [place] [facility] [address] [id number] [place] [address]- 0429 Sep, [facility] [place] [facility] [address] [id number] [place] [address]- 2773 Sep, [facility] [place] [facility] [address] [id number] [place] [address]- 6959 Sep, [facility] [address] [id number] [place] [address]- 8815 Sep, [facility] [place] [facility] [address] [id number] [place] [address] Aug, [facility] [place] [facility] [address] [id number] [place] [address] Aug, [facility] [place] [facility] [address] [id number] [place] [address] Aug, [facility] [place] [facility] [address] [id number] [place] [address] Aug, [facility] [address] [id number] [place] [address] July, [facility] [address] [id number] [place] [address] July, [facility] [address] [id number] [place] [address] July, [facility] [address] [id number] [place] [address] July, [facility] [address] [id number] [place] [address] July, [facility] [place] [facility] [address] [id number] [place] [address] July, [facility] [place] [facility] [address] [id number] [place] [address] July, [facility] [place] [facility] [address] [id number] [place] [address] Jun, [facility] [place] [facility] [address] [id number] [place] [address] May, [facility] [place] [facility] [address] [id number] [place] [address] May, [facility] [address] [facility] [id number] [place] [address] May, [facility] [address] [facility] [id number], [place] [address] May, [facility] [address] [facility] [id number], [place] [address] May, [facility] [address] [facility] [id number], [place] [address] May, [facility] [address] [facility] [id number], [place] [address] May, [facility] [address] [facility] [id number], [place] [address] May, IMMUNIZATIONS No Known Immunizations SOCIAL HISTORY Never Assessed REASON FOR V[place]IT [place] VITAL SIGNS MEDICATIONS Unknown [...] 03/2015 Hospitalization History Pneumonia 04/2015 Hospitalization History [facility] 5 nights - unresponsive 11/2017 Hospitalization History [facility]- one week 03/2018 Hospitalization History [facility] 03/10-03/12/2019 Hospitalization History [facility] 05/2018
--- OUTSIDE RECORDS SUMMARY | 2018-07-14 17:49 | XMS REPORT ---
Author Author Migration, Doctor Organization [facility] Address Unknown Phone Unavailable Care Team Providers Care Production Engineer Track Name Role Phone Migration, Doctor Unavailable Unavailable PROBLEMS Type Condition ICD9-CM Code HGP00-HJ Code Onset Dates Condition Status SNOMED Code Problem Cellulitis of right lower extremity L03.115 Active 061503115 Problem Neuropathy G62.9 Active 800562988 Problem Renal failure N19 Active 33448329 Problem Intra-dialytic hypotension I95.3 Active 820765673 Problem Amput below knee, unilat S88.119A Active 33135365 Problem Seasonal allergic rhinitis due to other allergic trigger J30.89 Active 770221076 Problem Chronic congestive heart failure, unspecified congestive heart failure type I50.9 Active 19971571 Problem Other chronic pain G89.29 Active 26880913 Problem 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 Active 0912010 Problem Primary insomnia F51.01 Active 1058269 Problem Paroxysmal atrial fibrillation I48.0 Active 498077909 Problem Angina pectoris I20.9 Active 258351122 Problem Type 2 diabetes mellitus with hyperglycemia, unspecified whether residential insulin use E11.65 Active [id number] Problem Chronic congestive heart failure, unspecified heart failure type I50.9 Active 84237950 Problem Self-care deficit for toileting R46.0 Active 036608053 Problem Bronchitis J40 Active 76849784 Problem Observed sleep apnea G47.30 Active 28160781 Problem Unsteady gait R26.81 Active 456371045 ALLERGIES No Information ENCOUNTERS Encounter Location Date Diagnosis [facility] [address] [facility] [id number] [address] May, [place] [address], [place] [address] May, Diabetes type 2, controlled E11.9 [place] [address] [place] [id number] [address] 0475 May, [place] [address] [id number], [place] [address] 9621 08 May, 2018 Pressure injury of coccygeal region, stage 2 L89.152 ; Nausea R11.0 ; Chronic congestive heart failure, unspecified congestive heart failure type I50.9 ; Observed sleep apnea G47.30 and Morbid obesity E66.01 [facility] [address] [id number] May, [facility] [address] [place] [id number] [place] [address] 25609- 8411 May, [facility] [address] [place] [id number] [place] [address] 56940- 7303 May, [facility] [address] [place] [address] [id number] [place] [address] 92570- 8736 May, [facility] [address] [id number] [place] [address] 22685- 4456 May, [facility] [address] [place] [id number] [place] [address] 04666- 7838 18 May, 2018 Renal failure N19 [facility] [address] [place] [id number] [place] [address] 85667- 8835 14 May, 2018 [facility] [address] [place] [id number] [place] [address] 93693- 7550 13 May, 2018 Neuropathy G62.9 and Renal failure N19 [facility] [address] [place] [id number] [place] [address] 48205- 4086 08 May, 2018 [facility] [address] [place] [address] 28569- 2224 07 May, 2018 [facility] [address] [place] [address] [id number] [place] [address] 21375- 2914 04 May, 2018 [facility] [address] [place] [address] 24348- 0189 Apr, [facility] [address] [place] [id number] [place] [address] 73076- 8696 Apr, [facility] [address] [place] [id number] [place] [address] 89271- 9419 Apr, [facility] [address] [place] [id number] [place] [address] 58018- 4194 Mar, Diabetes type 2, controlled E11.9 [facility] [address] [address]- 6009 Mar, Paroxysmal atrial fibrillation I48.0 ; Observed sleep apnea G47.30 ; Unsteady gait R26.81 and Bilious vomiting with nausea R11.14 [facility] [address] [address]- 7458 Mar, [facility] [address] 36403- 4194 Mar, [facility] [address] 97915- 4529 Mar, [facility] [address] [place] [address] [id number] [place] [address] 64965- 2001 Mar, [facility] [address] [place] [id number] [place] [address] 75984- 3373 Mar, Diabetes type 2, controlled E11.9 ; BMI 50.0-59.9, adult Z68.43 ; Bronchitis J40 and Other chronic pain G89.29 [facility] [address] [place] [id number] [place] [address] 28863- 8286 Mar, [facility] [address] [place] [id number] [place] [address] 43898- 3158 Mar, [facility] [address] [place] [id number] [place] [address] 48063- 4816 Jan, [facility] [address] [place] [id number] [place] [address] 55896- 8354 Jan, [facility] [address] [place] [address] [id number] [place] [address] 58535- 8231 Dec, [facility] [address], [place] [address]- 0534 Dec, [facility] [address] [address] [id number] [place] [address] 27442- 6475 Dec, [facility] [address] [place] [address] [id number] [place] [address] 85543- 8686 Nov, Pneumonia due to infectious organism, unspecified laterality , unspecified part of lung J18.9 and Self-care deficit for toileting R46.0 [facility] [address] [place] [address] [id number] [place] [address] 79422- 9468 Nov, [facility] [address] [place] [id number] [place] [address] 35267- 0340 Oct, Diabetes type 2, controlled E11.9 ; Primary insomnia F51.01 and Bilateral headaches R51 [facility] [address] [place] [id number] [place] [address] 54630- 6918 Oct, [facility] [address] [place] [id number] [place] [address] 56429- 6670 Sep, [facility] [address] [place] [id number] [place] [id number] Sep, Dental examination Z01.20 and Dental caries K02.9 [facility] [address] [place] [address] 78645- 5074 Sep, [facility] [address] [place] [id number] [place] [address] 69712- 0526 Sep, [facility] [address] [place] [address] 79516- 0489 Sep, Other chronic pain G89.29 and Pain in right knee M25.561 [facility] [address] [place] [id number] [place] [address] 14798- 7817 Sep, [facility] [address] [place] [id number] [place] [address] 70366- 9746 Aug, [facility] [address] [facility] [id number], [place] [address]- 8846 Aug, 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 [facility] [address] [facility] [id number], [place] [address]- 7527 15 Aug, 2017 [facility] [address] [facility] [id number], [place] [address]- 5601 11 Aug, 2017 Diabetes type 2, controlled E11.9 and Acute pain of right knee M25.561 [facility] [address] [facility] [id number], [place] [address]- 9297 09 Aug, 2017 [facility] [address] [facility] [id number] [place] [address] 28703- 6751 July, [facility] [address], [place] [address]- 3375 16 Jun, 2017 [facility] [address], [place] [address]- 8100 Jun, [facility] [address], [place] [address]- 0399 10 Jun, 2017 Diabetes type 2, controlled E11.9 [facility] [address], [place] [address]- 6927 Jun, [facility] [address] [place] [id number], [place] [address]- 7667 May, [facility] [address], [place] [address]- 4053 May, [facility] [address] [place] [id number], [place] [address]- 2128 May, [facility] [address], [place] [address]- 4658 May, Chronic congestive heart failure, unspecified congestive heart failure type I50.9 [facility] [address], [place] [address]- 6682 May, Diabetes type 2, controlled E11.9 ; BMI 50.0-59.9, adult Z68.43 ; Chronic congestive heart failure, unspecified heart failure type I50.9 ; Angina pectoris I20.9 ; Seasonal allergic rhinitis due to other allergic trigger J30.89 and Renal failure N19 [facility] [address] [address] May, [facility] [address] [place] [id number] [place] [address] 03251- 2017 May, [facility] [address] [place] [id number] [place] [address] 82991- 9339 May, [facility] [address] [place] [id number] [place] [address] 29349- 5177 May, [facility] [address] [place] [id number] [place] [address] 36654- 8656 May, [facility] [address] [place] [id number] [place] [address] 78849- 4550 Apr, BMI 50.0-59.9, adult Z68.43 [facility] [address] [place] [id number] [place] [address] 69818- 9759 Apr, BMI 50.0-59.9, adult Z68.43 ; Post-procedural fever R50.82 and Bronchitis J40 [facility] [address] [place] [address] 57304- 8142 Apr, Chronic congestive heart failure, unspecified congestive heart failure type I50.9 [facility] [address] [place] [id number] [place] [address] 65883- 5249 Jan, [facility] [address] [place] [id number] [place] [address] 27565- 9534 Jan, Diabetes type 2, controlled E11.9 [facility] [address] [place] [id number] [place] [address] 49848- 2323 Jan, Neuropathy G62.9 [facility] [address] [place] [address] [place] [address]- 8367 16 Jan, 2017 [facility] [address] [facility] [id number] [place] [address]- 9047 Jan, [facility] [address] [facility] [id number] [place] [address]- 4109 Jan, [facility] [address] [facility] [id number] [place] [address]- 4960 Jan, [facility] [address] [facility] [id number] [place] [address]- 8015 Jan, [facility] [address] [place] [id number] [place] [address]- 0611 Dec, [facility] [address] [facility] [id number] [place] [address]- 6573 Dec, [facility] [address], [place] [address]- 5078 Dec, Diabetes type 2, controlled E11.9 [facility] [address] [place] [id number] [place] [address]- 5795 Dec, [facility] [address], [place] [address]- 8016 Dec, [facility] [address], [place] [address]- 7424 Dec, Chronic congestive heart failure, unspecified congestive heart failure type I50.9 [facility] [address] [place] [id number], [place] [address]- 9766 Dec, [facility] [address] [facility] [id number], [place] [address]- 3373 Dec, [facility] [address] [place] [id number], [place] [address]- 9435 Nov, Chronic congestive heart failure, unspecified congestive heart failure type I50.9 [facility] [address] [place] [id number], [place] [address]- 1922 Nov, Chronic congestive heart failure, unspecified congestive heart failure type I50.9 [facility] [address] [facility] [id number], [place] [address]- 5119 Nov, [facility] [address], [place] [address]- 3744 Oct, [facility] [address], [place] [address]- 5139 Oct, [facility] [address] [place] [address] 81466- 9111 Oct, Chronic congestive heart failure, unspecified congestive heart failure type I50.9 [facility] [address] [place] [address] 36516- 5518 Oct, [facility] [address], [place] [address]- 4040 Oct, Pneumonia of both lungs due to infectious organism, unspecified part of lung J18.9 [facility] [address], [place] [address]- 7110 Oct, [facility] [address], [place] [address]- 2730 Oct, Diabetes type 2, controlled E11.9 [facility] [address], [place] [address]- 5536 Oct, Diabetes type 2, controlled E11.9 [facility] [address], [place] [address]- 0172 Sep, [facility] [address], [place] [address]- 4000 Sep, Neuropathy G62.9 [facility] [address], [place] [address]- 5477 Aug, Intra-dialytic hypotension I95.3 [facility] [address], [place] [address]- 0681 July, [facility] [address] [id number] [place] [address] 2546 July, [facility] [address] [facility] [id number] [place] [address] 2546 July, [facility] [address] [place] [address] 2546 July, Amput below knee, unilat S88.119A [facility] [address] [facility] [id number] [place] [address] 2546 May, [facility] [address] [facility] [id number] [place] [address] 2546 May, Neuropathy G62.9 [facility] [address] [place] [address] 2546 May, [facility] [address] [place] [address] 2546 May, [facility] [address] [place] [address] 2546 May, [facility] [address] [place] [address]- 9036 May, [facility] [address] [place] [address] 2546 May, Neuropathy G62.9 [facility] [address] [place] [address] 2546 Apr, [facility] [address] [facility] [id number] [place] [address] 2546 Apr, [facility] [address] [place] [address]- 9332 Apr, Diabetes type 2, controlled E11.9 and Renal failure N19 [facility] [address] [facility] [id number] [place] [address] 2546 Apr, [facility] [address] [place] [address]- 7595 Apr, [facility] [address] [place] [address]- 8067 Mar, [facility] [address] [place] [address]- 1532 Mar, [facility] [id number] [place] [address] 78061- [address] Mar, [facility] [id number] [place] [address], [place] [address]- [address] Mar, [facility] [address] [id number] [place] [address], [place] [address]- [address] Mar, [facility] [id number] [place] [address], [place] [address]- 2135 Jan, Localized edema R60.0 [facility] [address] [id number] [place] [address] 95600- 5204 Jan, [facility] [address], [place] [address]- 9298 Jan, [facility] [id number] [place] [address] 65170- 9017 Jan, [facility] [address], [place] [address]- 2861 Jan, [facility] [address], [place] [address]- 9565 Jan, [facility] [address], [place] [address]- [address]107 Jan, [facility] [id number] [place] [address] 63383- 0067 Dec, Diabetes type 2, controlled E11.9 and Chronic nonintractable headache, unspecified headache type R51 [facility] [address], [place] [address]- 1303 Dec, [facility] [address], [place] [address]- 8092 Dec, [facility] [id number] [place] [address] 29247- 3176 Nov, [facility] [address], [place] [address]- 6930 Nov, [facility] [address] [place] [address] 15145- 0618 Oct, [facility] [address], [place] [address]- 8387 Oct, Migraine without status migrainosus, not intractable, unspecified migraine type G43.909 [facility] [address], [place] [address]- 1443 Oct, [facility] [address] [place] [address] 75152- 2675 Sep, Amput below knee, unilat S88.119A and Neuropathy G62.9 [facility] [address], [place] [address]- 1761 Sep, [facility] [address] [place] [address] 98447- 9642 Sep, [facility] [address], [place] [address]- 8988 Sep, [facility] [address], [place] [address]- 9712 Aug, [facility] [address], [place] [address]- 4421 Aug, [facility] [id number] [place] [address] 21658- 6011 Aug, Diabetes type 2, controlled E11.9 [facility] [address], [place] [address]- 8563 Aug, [facility] [id number], [place] [address]- 1329 Jun, Diabetes type 2, controlled E11.9 and Neuropathy G62.9 [facility] [address] [facility] [id number] [place] [address]- 9956 14 Jul, 2015 [facility] [address] [facility] [id number] [place] [address]- 0007 Jun, [facility] [address] [facility] [id number] [place] [address]- 3506 Jun, [facility] [address] [facility] [id number] [place] [address]- 9361 Jun, [facility] [address] [facility] [id number] [place] [address]- 1985 May, [facility] [address] [place] [address]- 4035 May, Diabetes type 2, controlled E11.9 [facility] [address] [place] [address]- 5094 May, [facility] [address], [place] [address]- 6474 May, [facility] [address], [place] [address]- 1724 May, [facility] [address], [place] [address]- 0482 May, [facility] [address], [place] [address]- 6451 17 May, 2015 [facility] [address], [place] [address]- 5295 16 May, 2015 [facility] [address] [address]- 0442 16 May, 2015 [facility] [address], [place] [address]- 4308 15 May, 2015 COPD (chronic obstructive pulmonary disease) J44.9 [facility] [id number] [place] [address]- 2842 15 May, 2015 [facility] [address], [place] [address]- 8689 May, [facility] [address] [place] [address]- 5534 May, [facility] [address], [place] [address]- 2098 May, [facility] [address] [place] [address]- 8858 May, [facility] [address], [place] [address]- 5462 May, Renal failure N19 and Pneumonia, organism unspecified, unspecified laterality, unspecified part of lung J18.9 [facility] [address], [place] [address]- 2268 Apr, [facility] [address], [place] [address] Apr, [facility] [address], [place] [address] Apr, [facility] [id number] [address] Apr, Diabetes mellitus 250.00 [facility] [id number], [place] [address] Apr, [facility] [id number], [place] [address] Apr, [facility] [address], [place] [address] Apr, [facility] [id number], [place] [address] Apr, [facility] [id number] [place] [address] 31 Mar, 2015 [facility] [place] [facility] [address] [id number] [place] [address] 28 Mar, 2015 [facility] [place] [facility] [address] [id number] [place] [address] 23 Mar, 2015 [facility] [place] [facility] [address] [id number] [place] [address] 16 Mar, 2014 Renal failure N19 [facility] [place] [facility] [address] [id number] [place] [address] 14 Mar, 2015 [facility] [place] [facility] [address] [id number] [place] [address] 07 Mar, 2015 [facility] [place] [facility] [address] [facility] [id number] [place] [address] [address] 04 Mar, 2015 [facility] [place] [facility] [address] [id number] [place] [address] 24 Jan, 2015 [facility] [place] [facility] [address] [id number] [place] [address] 18 Jan, 2015 [facility] [place] [facility] [address] [facility] [id number] [place] [address] 17 Jan, 2015 [facility] [place] [facility] [address] [facility] [id number] [place] [address] Jan, [facility] [place] [facility] [address] [facility] [id number] [place] [address] Dec, [facility] [place] [facility] [address] [id number] [place] [address] Dec, [facility] [place] [facility] [address] [id number] [place] [address] Dec, [facility] [place] [facility] [address] [facility] [id number] [place] [address] Nov, [facility] [place] [facility] [address] [facility] [id number] [place] [address] Nov, [facility] [address] [facility] [id number] [place] [address] Nov, [facility] [address] [facility] [id number] [place] [address] Oct, [facility] [address] [facility] [id number] [place] [address] Oct, [facility] [address] [facility] [id number] [place] [address] Oct, Renal failure 586 and Obesity 278.00 [facility] [address] [facility] [id number] [place] [address]- 3701 Oct, [facility] [id number] [place] [address] Oct, [facility] [id number] [place] [address], [place] [address] Oct, [facility] [id number] [place] [address] Sep, [facility] [id number] [place] [address] 8863 Sep, [facility] [id number] [place] [address] Sep, Diabetes mellitus 250.00 and Congestive heart failure, unspecified 428.0 [facility] [id number] [address] Aug, [facility] [id number] [address] Aug, [facility] [id number] [place] [address]662 Aug, [facility] [address] [facility] [id number] [address] July, [facility] [id number] [address] July, [facility] [address] [id number] [place] [address] July, Heart murmur, systolic 785.2 [facility] [address] [id number] [place] [address] 1496 July, [facility] [address] [id number] [place] [address]- 4258 July, [facility] [address] [id number] [place] [address]- 0053 Jun, [facility] [address] [id number] [place] [address]- [address] Jun, [facility] [address] [id number] [place] [address]- [address] May, [facility] [address] [id number] [place] [address]- [address] May, [facility] [address] [id number] [place] [address]- 8635 May, [facility] [address] [id number] [place] [address]- [address] May, [facility] [address] [id number] [place] [address]- 2579 May, [facility] [address] [id number] [place] [address]- 6908 16 May, [address] [facility] [address] [id number] [place] [address]- 6654 May, [facility] [address] [id number] [place] [address]- [address] May, [facility] [address] [id number] [place] [address]- [address] May, [facility] [address] [id number] [place] [address]- 8348 May, [facility] [place] [facility] [address] [id number] [place] [address]- 6971 May, 2014 [facility] [place] [facility] [address] [id number] [place] [address]- 4496 May, 2014 [facility] [place] [facility] [address] [facility] [id number] [place] [address]- 7849 May, 2014 [facility] [place] [facility] [address] [facility] [id number] [place] [address]- 5078 May, 2014 [facility] [place] [facility] [address] [id number] [place] [address]- 0843 May, 2014 [facility] [place] [facility] [address] [facility] [id number] [place] [address]- 8367 May, 2014 [facility] [place] [facility] [address] [facility] [id number] [place] [address]- 0740 May, 2014 [facility] [place] [facility] [address] [facility] [id number] [place] [address]- 0279 May, 2014 [facility] [place] [facility] [address] [facility] [id number] [place] [address]- 1141 May, 2014 [facility] [place] [facility] [address] [facility] [id number] [place] [address]- 7389 May, 2014 [facility] [place] [facility] [address] [facility] [id number] [place] [address]- 4107 16 May, 2014 [facility] [place] [facility] [address] [facility] [id number] [place] [address]- 2549 May, 2014 [facility] [place] [facility] [address] [facility] [id number] [place] [address]- 9915 May, 2014 [facility] [place] [facility] [address] [facility] [id number] [place] [address]- 5652 May, 2014 [facility] [place] [facility] [address] [facility] [id number] [place] [address]- 1336 02 May, 2014 [facility] [place] [facility] [address] [id number] [place] [address]- 2768 May, [facility] [place] [facility] [address] [id number] [place] [address]- 0365 Apr, [facility] [place] [facility] [address] [id number] [place] [address]- 7066 Apr, [facility] [place] [facility] [address] [id number] [place] [address]- 1272 Apr, [facility] [place] [facility] [address] [id number] [place] [address]- 8486 Apr, [facility] [place] [facility] [address] [id number] [place] [address]- 6569 Apr, [facility] [place] [facility] [address] [id number] [place] [address]- 0283 Apr, [facility] [place] [facility] [address] [id number] [place] [address]- 1425 Apr, [facility] [place] [facility] [address] [id number] [place] [address]- 5110 Apr, [facility] [place] [facility] [address] [id number] [place] [address]- 3057 Mar, [facility] [place] [facility] [address] [id number] [place] [address]- 7638 Mar, [facility] [place] [facility] [address] [id number] [place] [address]- 6929 Mar, [facility] [place] [facility] [address] [id number] [place] [address]- 8371 Mar, [facility] [place] [facility] [address] [id number] [place] [address]- 7692 Mar, [facility] [place] [facility] [address] [id number] [place] [address]- 9616 Mar, [facility] [place] [facility] [address] [id number] [place] [address]- 8785 Mar, [facility] [place] [facility] [address] [id number] [place] [address]- 2175 18 Mar, 2014 [facility] [place] [facility] [address] [id number] [place] [address]- 9390 Mar, [facility] [place] [facility] [address] [id number] [place] [address]- 5174 Mar, [facility] [place] [facility] [address] [id number] [place] [address]- 6356 Mar, [facility] [place] [facility] [address] [id number] [place] [address]- 1451 Mar, [facility] [place] [facility] [address] [id number] [place] [address]- 4051 Mar, [facility] [place] [facility] [address] [id number] [place] [address]- 7394 Mar, [facility] [place] [facility] [address] [id number] [place] [address]- 6316 Mar, [facility] [place] [facility] [address] [id number] [place] [address]- 0102 Mar, [facility] [place] [facility] [address] [id number] [place] [address]- 9349 Mar, [facility] [place] [facility] [address] [id number] [place] [address]- 6718 Mar, [facility] [place] [facility] [address] [id number] [place] [address]- 1352 Mar, [facility] [place] [facility] [address] [id number] [place] [address]- 5795 Mar, [facility] [place] [facility] [address] [id number] [place] [address]- 8084 Mar, [facility] [place] [facility] [address] [id number] [place] [address]- 1308 Mar, [facility] [place] [facility] [address] [id number] [place] [address]- 2616 Jan, [facility] [place] [facility] [address] [id number] [place] [address]- 0742 Jan, [facility] [place] [facility] [address] [id number] [place] [address]- 6794 Jan, [facility] [place] [facility] [address] [id number] [place] [address]- 1866 Jan, [facility] [place] [facility] [address] [id number] [place] [address]- 0744 Jan, [facility] [place] [facility] [address] [id number] [place] [address]- 5538 Jan, [facility] [place] [facility] [address] [id number] [place] [address]- 1070 Jan, [facility] [place] [facility] [address] [id number] [place] [address]- 3385 Jan, [facility] [place] [facility] [address] [id number] [place] [address]- 8387 Jan, [facility] [place] [facility] [address] [id number] [place] [address]- 1394 Jan, [facility] [place] [facility] [address] [id number] [place] [address]- 1027 Jan, [facility] [place] [facility] [address] [id number] [place] [address]- 6481 Jan, [facility] [place] [facility] [address] [id number], [place] [address]- 8933 Jan, [facility] [place] [facility] [address] [id number] [place] [address]- 9699 Jan, [facility] [place] [facility] [address] [id number] [place] [address]- 8520 Jan, [facility] [place] [facility] [address] [id number] [address]- 4763 Jan, [facility] [place] [facility] [address] [id number] [place] [address]- 2817 Jan, [facility] [place] [facility] [address] [id number] [place] [address]- 1681 Jan, [facility] [place] [facility] [address] [id number] [place] [address] Jan, [facility] [place] [facility] [address] [id number] [place] [address]- 0884 Jan, [facility] [place] [facility] [address] [id number] [place] [address]- 0397 Dec, [facility] [place] [facility] [address] [id number] [place] [address]- 1261 Dec, [facility] [place] [facility] [address] [id number] [place] [address]- 4590 Dec, [facility] [place] [facility] [address] [id number] [place] [address]- 8344 Dec, [facility] [place] [facility] [address] [id number] [place] [address]- 1854 Dec, [facility] [place] [facility] [address] [id number] [place] [address]- 8090 Dec, [facility] [place] [facility] [address] [id number] [place] [address]- 5361 Dec, [facility] [place] [facility] [address] [id number] [place] [address]- 1084 Dec, [facility] [place] [facility] [address] [id number] [place] [address]- 9562 Dec, [facility] [place] [facility] [address] [id number] [place] [address]- 5612 Dec, [facility] [place] [facility] [address] [id number] [place] [address]- 6406 08 Dec, 2013 [facility] [place] [facility] [address] [id number] [place] [address]- 5241 Dec, [facility] [place] [facility] [address] [id number] [place] [address]- 2032 Dec, [facility] [place] [facility] [address] [id number] [place] [address]- 4750 Dec, [facility] [place] [facility] [address] [id number] [place] [address]- 2497 Dec, [facility] [place] [facility] [address] [id number] [place] [address]- 2058 22 Nov, 2013 [facility] [place] [facility] [address] [id number] [place] [address]- 4471 22 Nov, 2013 [facility] [place] [facility] [address] [id number] [place] [address]- 3622 19 Nov, 2013 [facility] [place] [facility] [address] [id number] [place] [address]- 0238 19 Nov, 2013 [facility] [place] [facility] [address] [id number] [place] [address]- 7880 13 Nov, 2013 [facility] [place] [facility] [address] [id number] [place] [address] 2548 13 Nov, 2013 [facility] [place] [facility] [address] [id number] [place] [address]- 2542 10 Nov, 2013 [facility] [place] [facility] [address] [id number] [place] [address]- 7959 10 Nov, 2013 [facility] [place] [facility] [address] [id number] [place] [address]- 4504 08 Sep, 2013 [facility] [place] [facility] [address] [id number] [place] [address]- 2544 05 Sep, 2013 [facility] [place] [facility] [address] [id number] [place] [address]- 2543 05 Sep, 2013 [facility] [place] [facility] [address] [id number] [place] [address]- 2543 03 Sep, 2013 [facility] [place] [facility] [address] [id number] [place] [address]- 9785 Nov, [facility] [place] [facility] [address] [id number] [place] [address]- 2751 Oct, [facility] [place] [facility] [address] [id number] [place] [address]- 5413 Oct, [facility] [place] [facility] [address] [id number] [place] [address]- 0982 Oct, [facility] [place] [facility] [address] [id number] [place] [address]- 6577 Oct, [facility] [place] [facility] [address] [id number] [place] [address]- 6467 Oct, [facility] [place] [facility] [address] [id number] [place] [address]- 2641 Sep, [facility] [place] [facility] [address] [id number] [place] [address]- 1202 Sep, [facility] [place] [facility] [address] [id number] [place] [address]- 0278 Sep, [facility] [place] [facility] [address] [id number] [place] [address]- 3668 Sep, [facility] [place] [facility] [address] [id number] [place] [address]- 0130 Aug, [facility] [place] [facility] [address] [id number] [place] [address]- 0744 Aug, [facility] [place] [facility] [address] [id number] [place] [address]- 4796 Aug, [facility] [place] [facility] [address] [id number] [place] [address]- 7755 Aug, [facility] [place] [facility] [address] [id number] [place] [address]- 8108 Aug, [facility] [place] [facility] [address] [id number] [place] [address]- 7159 Aug, [facility] [place] [facility] [address] [id number] [place] [address]- 0083 Aug, [facility] [place] [facility] [address] [id number] [place] [address]- 6857 Aug, [facility] [place] [facility] [address] [id number] [place] [address]- 8403 Aug, [facility] [place] [facility] [address] [id number] [place] [address]- 3857 Aug, [facility] [place] [facility] [address] [id number] [place] [address]- 6811 Aug, [facility] [place] [facility] [address] [id number] [place] [address]- 4331 Aug, [facility] [place] [facility] [address] [id number] [place] [address]- 0888 Aug, [facility] [place] [facility] [address] [id number] [place] [address]- 6432 Aug, [facility] [place] [facility] [address] [id number] [place] [address]- 4107 Aug, [facility] [place] [facility] [address] [id number] [place] [address]- 3479 Aug, [facility] [place] [facility] [address] [id number], [place] [address]- 7400 Aug, [facility] [place] [facility] [address] [id number], [place] [address]- 7418 Aug, [facility] [place] [facility] [address] [id number] [place] [address]- 9859 Aug, [facility] [place] [facility] [address] [id number] [place] [address]- 1577 Aug, [facility] [place] [facility] [address] [id number], [place] [address]- 4891 Aug, [facility] [place] [facility] [address] [id number], [place] [address]- 0370 Aug, [facility] [place] [facility] [address] [id number] [place] [address]- 2408 Aug, [facility] [place] [facility] [address] [id number] [place] [address]- 8154 Aug, [facility] [place] [facility] [address] [id number] [place] [address]- 5882 July, [facility] [place] [facility] [address] [id number] [place] [address]- 1131 July, [facility] [place] [facility] [address] [id number] [place] [address]- 2474 July, [facility] [place] [facility] [address] [id number] [place] [address]- 0294 July, [facility] [place] [facility] [address] [id number] [place] [address]- 2058 July, [facility] [place] [facility] [address] [id number] [place] [address]- 3511 July, [facility] [place] [facility] [address] [id number] [place] [address]- 9298 Jun, [facility] [place] [facility] [address] [id number] [place] [address]- 9535 Jun, [facility] [place] [facility] [address] [id number] [place] [address]- 7964 Jun, [facility] [place] [facility] [address] [id number] [place] [address]- 3396 Jun, [facility] [place] [facility] [address] [id number] [place] [address]- 6275 Jun, [facility] [place] [facility] [address] [id number] [place] [address]- 4827 Jun, [facility] [place] [facility] [address] [id number] [place] [address]- 9879 Jun, [facility] [place] [facility] [address] [id number] [place] [address]- 8346 Jun, [facility] [place] [facility] [address] [id number] [place] [address]- 1166 Jun, [facility] [place] [facility] [address] [id number] [place] [address]- 8886 Jun, [facility] [place] [facility] [address] [id number] [place] [address]- 4846 Jun, [facility] [place] [facility] [address] [id number] [place] [address]- 9522 Jun, [facility] [place] [facility] [address] [id number] [place] [address]- 2593 Jun, [facility] [place] [facility] [address] [id number] [place] [address]- 0051 Jun, [facility] [place] [facility] [address] [id number] [place] [address]- 3759 Jun, [facility] [place] [facility] [address] [id number] [place] [address]- 9076 May, [facility] [place] [facility] [address] [id number] [place] [address]- 3343 May, [facility] [place] [facility] [address] [id number] [place] [address]- 6443 May, [facility] [place] [facility] [address] [id number] [place] [address]- 8073 May, [facility] [place] [facility] [address] [id number] [place] [address]- 7459 May, [facility] [place] [facility] [address] [id number] [place] [address]- 7846 May, [facility] [place] [facility] [address] [id number] [place] [address]- 4686 May, [facility] [place] [facility] [address] [id number] [place] [address]- 8643 May, [facility] [place] [facility] [address] [id number] [place] [address]- 6045 May, [facility] [place] [facility] [address] [id number] [place] [address]- 8814 May, [facility] [place] [facility] [address] [id number] [place] [address]- 3853 May, [facility] [place] [facility] [address] [id number] [place] [address]- 8222 May, [facility] [place] [facility] [address] [id number] [place] [address]- 7751 May, [facility] [place] [facility] [address] [id number] [place] [address]- 3984 May, [facility] [place] [facility] [address] [id number] [place] [address] May, [facility] [place] [facility] [address] [id number] [place] [address] May, [facility] [place] [facility] [address] [id number] [place] [address] May, [facility] [place] [facility] [address] [id number] [place] [address] Apr, [facility] [place] [facility] [address] [id number] [place] [address] Apr, [facility] [place] [facility] [address] [id number] [place] [address] Apr, [facility] [place] [facility] [address] [id number] [place] [address] Apr, [facility] [place] [facility] [address] [id number] [place] [address]68 Apr, [facility] [place] [facility] [address] [id number] [place] [address] Apr, [facility] [place] [facility] [address] [id number] [place] [address] 10 Apr, 2013 [facility] [address] [id number] [place] [address] Apr, [facility] [place] [facility] [address] [id number] [place] [address] Apr, [facility] [address] [id number] [place] [address] Apr, [facility] [address] [id number] [place] [address] Apr, [facility] [address] [id number] [place] [address]408 Apr, [facility] [address] [id number] [place] [address] [address] Apr, [facility] [address] [id number] [place] [address]- [address] Apr, [facility] [address] [id number] [place] [address] 44[address] Apr, [facility] [address] [id number] [place] [address] [address] Apr, [facility] [address] [id number] [place] [address] Mar, [facility] [address] [id number] [place] [address]22 Mar, [facility] [address] [id number] [place] [address] 74[address] Mar, [facility] [place] [facility] [address] [id number] [place] [address]- 8685 Mar, [facility] [place] [facility] [address] [id number] [place] [address] 39[address] Mar, [facility] [place] [facility] [address] [id number] [place] [address] Mar, [facility] [address] [id number] [place] [address] 18 Mar, 2013 [facility] [place] [facility] [address] [id number] [place] [address]573 Mar, [facility] [place] [facility] [address] [id number] [place] [address] 48[address] Mar, [facility] [place] [facility] [address] [id number] [place] [address] Mar, [facility] [place] [facility] [address] [id number] [place] [address]702 Mar, [facility] [place] [facility] [address] [id number] [place] [address] 1361 Mar, [facility] [place] [facility] [address] [id number] [place] [address]241 Mar, [facility] [place] [facility] [address] [id number] [place] [address]202 Mar, [facility] [place] [facility] [address] [id number] [place] [address] 4679 Mar, [facility] [place] [facility] [address] [id number] [place] [address] Mar, [facility] [place] [facility] [address] [id number] [place] [address]049 Mar, [facility] [place] [facility] [address] [id number] [address] Mar, [facility] [place] [facility] [address] [id number] [place] [address] Jan, [facility] [place] [facility] [address] [id number] [place] [address] 290[address] Jan, [facility] [place] [facility] [address] [id number] [place] [address]- [address] Jan, [facility] [place] [facility] [address] [id number] [place] [address]103 Jan, [facility] [address] [id number] [place] [address] 27 Nov, 2012 [facility] [place] [facility] [address] [id number] [place] [address] 10 Nov, 2012 [facility] [place] [facility] [address] [id number] [place] [address] Nov, [facility] [place] [facility] [address] [id number] [place] [address]- 2987 Nov, [facility] [place] [facility] [address] [id number] [place] [address] Oct, [facility] [place] [facility] [address] [id number] [place] [address]- 1778 Oct, [facility] [address] [id number] [place] [address] 8164 Oct, [facility] [place] [facility] [address] [id number] [place] [address]- 2412 Oct, [facility] [place] [facility] [address] [id number] [place] [address]- 3666 Sep, [facility] [place] [facility] [address] [id number] [place] [address]- 377[address] Sep, [facility] [place] [facility] [address] [id number] [place] [address] 2746 Sep, [facility] [place] [facility] [address] [id number] [place] [address]- 2827 Sep, [facility] [place] [facility] [address] [id number] [place] [address]- 1512 Sep, [facility] [place] [facility] [address] [id number] [place] [address]- [address]348 Sep, [facility] [place] [facility] [address] [id number] [place] [address]- 57[address] Sep, [facility] [place] [facility] [address] [id number] [place] [address]- 1791 Sep, [facility] [address] [id number] [place] [address] 3498 Sep, [facility] [place] [facility] [address] [id number] [place] [address]- 1167 Aug, [facility] [place] [facility] [address] [id number] [place] [address] 3030 Aug, [facility] [place] [facility] [address] [id number] [place] [address] Aug, [facility] [place] [facility] [address] [id number] [place] [address]- 8513 Aug, [facility] [address] [id number] [place] [address] July, [facility] [address] [id number] [place] [address] 2092 July, [facility] [address] [id number] [place] [address]- 1205 July, [facility] [address] [id number] [place] [address] [address] July, [facility] [address] [id number] [place] [address]- [id number] July, [facility] [place] [facility] [address] [id number] [place] [address] July, [facility] [place] [facility] [address] [id number] [place] [address] July, [facility] [place] [facility] [address] [id number] [place] [address] Jun, [facility] [place] [facility] [address] [id number] [place] [address] May, [facility] [place] [facility] [address] [id number] [place] [address] May, [facility] [address] [facility] [id number] [place] [address] May, [facility] [address] [facility] [id number] [address] May, [facility] [address] [facility] [id number], [place] [address] May, [facility] [address] [facility] [id number], [place] [address] May, [facility] [address] [facility] [id number], [place] [address] May, [facility] [address] [facility] [id number], [place] [address] May, IMMUNIZATIONS No Known Immunizations SOCIAL HISTORY Never Assessed REASON FOR VISIT EMR-[facility] PLAN OF CARE VITAL SIGNS MEDICATIONS Unknown [...] 03/2015 Hospitalization History Pneumonia 04/2015 Hospitalization History [facility] 5 nights - unresponsive 11/2017 Hospitalization History [facility]- one week 03/2018 Hospitalization History [facility] 03/10-03/12/2019 Hospitalization History [facility] ER 05/2018
--- OUTSIDE RECORDS SUMMARY | 2018-07-14 17:51 | XMS REPORT ---
Author Author Migration, Doctor Organization [facility] Address Unknown Phone Unavailable Care Team Providers Care Core Analyst Name Role Phone Migration, Doctor Unavailable Unavailable PROBLEMS Type Condition ICD9-CM Code SRV33-VM Code Onset Dates Condition Status SNOMED Code Problem Cellulitis of right lower extremity L03.115 Active 469402367 Problem Neuropathy G62.9 Active 542942840 Problem Renal failure N19 Active 96594293 Problem Intra-dialytic hypotension I95.3 Active 774489811 Problem Amput below knee, unilat S88.119A Active 95508231 Problem Seasonal allergic rhinitis due to other allergic trigger J30.89 Active 976708529 Problem Chronic congestive heart failure, unspecified congestive heart failure type I50.9 Active 63342853 Problem Other chronic pain G89.29 Active 07120532 Problem 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 Active 9974976 Problem Primary insomnia F51.01 Active 1909073 Problem Paroxysmal atrial fibrillation I48.0 Active 655614961 Problem Angina pectoris I20.9 Active 188459157 Problem Type 2 diabetes mellitus with hyperglycemia, unspecified whether long-term insulin use E11.65 Active 297086568183644 Problem Chronic congestive heart failure, unspecified heart failure type I50.9 Active 40366260 Problem Self-care deficit for toileting R46.0 Active 379783144 Problem Bronchitis J40 Active 93901775 Problem Observed sleep apnea G47.30 Active 54860431 Problem Unsteady gait R26.81 Active 401074393 ALLERGIES No Information ENCOUNTERS Encounter Location Date Diagnosis [facility] [address] [facility] [id number] [address] May, [place] [address], [place] [address] May, Diabetes type 2, controlled E11.9 [place] [address] [id number], [place] [address] 4[address] May, [place] [id number], [place] [address] 08 May, 2018 Pressure injury of coccygeal region, stage 2 L89.152 ; Nausea R11.0 ; Chronic congestive heart failure, unspecified congestive heart failure type I50.9 ; Observed sleep apnea G47.30 and Morbid obesity E66.01 [facility] [address] [id number] May, [facility] [id number] [place] [address] 78138- 7991 May, [facility] [id number] [place] [address] 02792- 6942 May, [facility] [id number] [place] [address] 99704- 3437 May, [facility] [id number] [place] [address] 44138- 4042 May, [facility] [id number] [place] [address] 95917- 8579 18 May, 2018 Renal failure N19 [facility] [id number] [place] [address] 77601- 8804 14 May, 2018 [facility] [id number] [place] [address] 20716- 7318 13 May, 2018 Neuropathy G62.9 and Renal failure N19 [facility] [id number] [place] [address] 03593- 1500 08 May, 2018 [facility] [id number] [place] [address] 72305- 9341 07 May, 2018 [facility] [id number] [place] [address] 82177- 1300 04 May, 2018 [facility] [id number] [place] [address] 02310- 0875 Apr, [facility] [id number] [place] [address] 62839- 1705 Apr, [facility] [id number] [place] [address] 15636- 8102 Apr, [facility] [id number] [place] [address] 64639- 2725 Mar, Diabetes type 2, controlled E11.9 [facility] [address] [address]- 5554 Mar, Paroxysmal atrial fibrillation I48.0 ; Observed sleep apnea G47.30 ; Unsteady gait R26.81 and Bilious vomiting with nausea R11.14 [facility] [address] [address]99- 0707 Mar, [facility] [address] 86556- 4173 Mar, [facility] [address] 72323- 3148 Mar, [facility] [id number] [place] [address] 58682- 1773 Mar, [facility] [address] [place] [address] [id number] [place] [address] 17948- 5567 Mar, Diabetes type 2, controlled E11.9 ; BMI 50.0-59.9, adult Z68.43 ; Bronchitis J40 and Other chronic pain G89.29 [facility] [address] [place] [id number] [place] [address] 61139- 2126 Mar, [facility] [address] [id number] [place] [address] 90433- 4575 Mar, [facility] [address] [id number] [place] [address] 23190- 9005 Jan, [facility] [address] [place] [id number] [place] [address] 80875- 4372 Jan, [facility] [id number] [place] [address] 05131- 7465 Dec, [facility] [address], [place] [address] 5622 Dec, [facility] [id number] [place] [address] 58628- 3420 Dec, [facility] [id number] [place] [address] 83630- 3154 Nov, Pneumonia due to infectious organism, unspecified laterality , unspecified part of lung J18.9 and Self-care deficit for toileting R46.0 [facility] [id number] [place] [address] 17103- 5785 Nov, [facility] [address] [place] [id number] [place] [address] 86222- 6750 Oct, Diabetes type 2, controlled E11.9 ; Primary insomnia F51.01 and Bilateral headaches R51 [facility] [address] [place] [id number] [place] [address] 28521- 2192 Oct, [facility] [id number] [place] [address] 20802- 7660 Sep, [facility] [address] [place] [id number] [place] [address] [id number] Sep, Dental examination Z01.20 and Dental caries K02.9 [facility] [address] [place] [address] 95390- 9192 Sep, [facility] [id number] [place] [address] 18945- 0875 Sep, [facility] [address] [place] [address] 06397- 6774 Sep, Other chronic pain G89.29 and Pain in right knee M25.561 [facility] [id number] [place] [address] 44139- 0209 Sep, [facility] [id number] [place] [address] 28030- 1473 Aug, [facility] [address] [facility] [id number], [place] [address] 1561 Aug, 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 [facility] [address] [facility] [id number], [place] [address]- 0459 15 Aug, 2017 [facility] [address] [facility] [id number], [place] [address]- 8747 11 Aug, 2017 Diabetes type 2, controlled E11.9 and Acute pain of right knee M25.561 [facility] [address] [facility] [id number], [place] [address]- 6204 09 Aug, 2017 [facility] [address] [facility] [id number] [place] [address] 99622- 8709 July, [facility] [address], [place] [address]- 7203 16 Jun, 2017 [facility] [address], [place] [address]- 5647 Jun, [facility] [address], [place] [address]- 6641 10 Jun, 2017 Diabetes type 2, controlled E11.9 [facility] [address], [place] [address]- 3149 Jun, [facility] [address] [place] [id number], [place] [address]- 5300 May, [facility] [address], [place] [address]- 1530 May, [facility] [address] [place] [id number], [place] [address] 1986 May, [facility] [address], [place] [address]- 2737 May, Chronic congestive heart failure, unspecified congestive heart failure type I50.9 [facility] [address], [place] [address]- 7054 May, Diabetes type 2, controlled E11.9 ; BMI 50.0-59.9, adult Z68.43 ; Chronic congestive heart failure, unspecified heart failure type I50.9 ; Angina pectoris I20.9 ; Seasonal allergic rhinitis due to other allergic trigger J30.89 and Renal failure N19 [facility] [address] [address] May, [facility] [address] [place] [id number] [place] [address] 51895- 4509 May, [facility] [address] [place] [id number] [place] [address] 64113- 6401 May, [facility] [address] [place] [id number] [place] [address] 82854- 8448 May, [facility] [address] [place] [address] [id number] [place] [address] 12502- 0864 May, [facility] [address] [id number] [place] [address] 40735- 8223 Apr, BMI 50.0-59.9, adult Z68.43 [facility] [address] [place] [id number] [place] [address] 95199- 4305 Apr, BMI 50.0-59.9, adult Z68.43 ; Post-procedural fever R50.82 and Bronchitis J40 [facility] [address] [place] [address] 30187- 8229 Apr, Chronic congestive heart failure, unspecified congestive heart failure type I50.9 [facility] [address] [id number] [place] [address] 12127- 1674 Jan, [facility] [address] [place] [id number] [place] [address] 04050- 7809 Jan, Diabetes type 2, controlled E11.9 [facility] [address] [place] [id number] [place] [address] 66351- 2304 Jan, Neuropathy G62.9 [facility] [address] [place] [address] [address]- 8019 16 Jan, 2017 [facility] [address] [facility] [id number] [place] [address]- 0671 Jan, [facility] [address] [facility] [id number] [place] [address]- 9788 Jan, [facility] [address] [facility] [id number] [place] [address]- 7477 Jan, [facility] [address] [facility] [id number] [place] [address]- 7204 Jan, [facility] [address] [place] [id number] [address]- 3953 Dec, [facility] [address] [facility] [id number] [place] [address]- 9805 Dec, [facility] [address], [place] [address]- 1827 Dec, Diabetes type 2, controlled E11.9 [facility] [address] [place] [id number] [address]- 9932 Dec, [facility] [address], [place] [address]- 8652 Dec, [facility] [address], [place] [address]- 7301 Dec, Chronic congestive heart failure, unspecified congestive heart failure type I50.9 [facility] [address] [place] [id number], [place] [address]- 1447 Dec, [facility] [address] [facility] [id number], [place] [address]- 4880 Dec, [facility] [address] [place] [id number], [place] [address]- 9526 Nov, Chronic congestive heart failure, unspecified congestive heart failure type I50.9 [facility] [address] [place] [id number], [place] [address]- 3815 Nov, Chronic congestive heart failure, unspecified congestive heart failure type I50.9 [facility] [address] [facility] [id number], [place] [address]- 0085 Nov, [facility] [address], [place] [address]- 3562 Oct, [facility] [address], [place] [address]- 9618 Oct, [facility] [id number] [place] [address] 95126- 9886 Oct, Chronic congestive heart failure, unspecified congestive heart failure type I50.9 [facility] [id number] [place] [address] 92435- 5682 Oct, [facility] [address], [place] [address]- 2686 Oct, Pneumonia of both lungs due to infectious organism, unspecified part of lung J18.9 [facility] [address], [place] [address]- 9771 Oct, [facility] [address], [place] [address]- 3329 Oct, Diabetes type 2, controlled E11.9 [facility] [address], [place] [address]- 9514 Oct, Diabetes type 2, controlled E11.9 [facility] [address], [place] [address]- 6481 Sep, [facility] [address], [place] [address]- 2297 Sep, Neuropathy G62.9 [facility] [address], [place] [address]- 6174 Aug, Intra-dialytic hypotension I95.3 [facility] [address], [place] [address]- 7609 July, [facility] [address] [id number] [place] [address] 2546 July, [facility] [address] [facility] [id number] [place] [address] 2546 July, [facility] [address] [address] 2546 July, Amput below knee, unilat S88.119A [facility] [address] [facility] [id number] [place] [address] 2546 May, [facility] [address] [facility] [id number] [place] [address] 2546 May, Neuropathy G62.9 [facility] [address] [address] 2546 May, [facility] [address] [address] 2546 May, [facility] [address] [address] 2546 May, [facility] [address] [address]- 8906 May, [facility] [address] [address] 2546 May, Neuropathy G62.9 [facility] [address] [address] 2546 Apr, [facility] [address] [facility] [id number] [place] [address] 2546 Apr, [facility] [address] [address]- 9621 Apr, Diabetes type 2, controlled E11.9 and Renal failure N19 [facility] [address] [facility] [id number] [place] [address] 2546 Apr, [facility] [address] [address]- 4366 Apr, [facility] [address] [address]- 4029 Mar, [facility] [address] [address]- 7047 Mar, [facility] [id number] [place] [address] 47847- [address] Mar, [facility] [id number] [place] [address], [place] [address]- [address] Mar, [facility] [id number] [place] [address], [place] [address]- [address] Mar, [facility] [id number] [place] [address], [place] [address]- 9702 Jan, Localized edema R60.0 [facility] [id number] [place] [address] 62337- 6407 Jan, [facility] [address], [place] [address]- 7113 Jan, [facility] [id number] [place] [address] 66113- 3243 Jan, [facility] [address], [place] [address]- 0677 Jan, [facility] [address], [place] [address]- 2632 Jan, [facility] [address], [place] [address]- [address] Jan, [facility] [id number] [place] [address] 38627- 6198 Dec, Diabetes type 2, controlled E11.9 and Chronic nonintractable headache, unspecified headache type R51 [facility] [address], [place] [address]- 8997 Dec, [facility] [address], [place] [address]- 6444 Dec, [facility] [id number] [place] [address] 21666- 8901 Nov, [facility] [address], [place] [address]- 2363 Nov, [facility] [id number] [place] [address] 12677- 6187 Oct, [facility] [address], [place] [address]- 6045 Oct, Migraine without status migrainosus, not intractable, unspecified migraine type G43.909 [facility] [address], [place] [address]- 0431 Oct, [facility] [id number] [place] [address] 21466- 5813 Sep, Amput below knee, unilat S88.119A and Neuropathy G62.9 [facility] [address], [place] [address]- 8830 Sep, [facility] [id number] [place] [address] 52477- 7157 Sep, [facility] [address], [place] [address]- 8046 Sep, [facility] [address], [place] [address]- 2033 Aug, [facility] [address], [place] [address]- 3931 Aug, [facility] [id number] [place] [address] 27343- 6075 Aug, Diabetes type 2, controlled E11.9 [facility] [address], [place] [address]- 3634 Aug, [facility] [id number], [place] [address]- 0990 Jun, Diabetes type 2, controlled E11.9 and Neuropathy G62.9 [facility] [address] [facility] [id number] [place] [address]- 2286 14 Jul, 2015 [facility] [address] [facility] [id number] [place] [address]- 0912 Jun, [facility] [address] [facility] [id number] [place] [address]- 0786 Jun, [facility] [address] [facility] [id number] [place] [address]- 1022 Jun, [facility] [address] [facility] [id number] [place] [address]- 1485 May, [facility] [address] [address]- 4293 May, Diabetes type 2, controlled E11.9 [facility] [address] [address]- 5925 May, [facility] [address], [place] [address]- 3920 May, [facility] [address], [place] [address]- 1331 May, [facility] [address], [place] [address]- 8923 May, [facility] [address], [place] [address]- 1581 17 May, 2015 [facility] [address], [place] [address]- 0977 16 May, 2015 [facility] [address], [place] [address]- 8024 16 May, 2015 [facility] [address], [place] [address]- 6552 15 May, 2015 COPD (chronic obstructive pulmonary disease) J44.9 [facility] [id number] [address]- 8978 15 May, 2015 [facility] [address], [place] [address]- 7220 May, [facility] [id number] [address] May, [facility] [address], [place] [address] May, [facility] [id number] [address] May, [facility] [address], [place] [address] May, Renal failure N19 and Pneumonia, organism unspecified, unspecified laterality, unspecified part of lung J18.9 [facility] [address], [place] [address] Apr, [facility] [address], [place] [address] Apr, [facility] [address], [place] [address] Apr, [facility] [id number], [place] [address] Apr, Diabetes mellitus 250.00 [facility] [address], [place] [address] Apr, [facility] [id number], [place] [address] Apr, [facility] [address], [place] [address] Apr, [facility] [id number], [place] [address] Apr, [facility] [id number] [address] 31 Mar, 2015 [facility] [place] [facility] [address] [id number] [place] [address] 28 Mar, 2015 [facility] [place] [facility] [address] [id number] [place] [address] 23 Mar, 2015 [facility] [place] [facility] [address] [id number] [place] [address]- [address] 16 Mar, 2014 Renal failure N19 [facility] [place] [facility] [address] [id number] [place] [address] 14 Mar, 2015 [facility] [place] [facility] [address] [id number] [place] [address] 07 Mar, 2015 [facility] [place] [facility] [address] [facility] [id number] [place] [address] [address] 04 Mar, 2015 [facility] [place] [facility] [address] [id number] [place] [address]- [address] 24 Jan, 2015 [facility] [place] [facility] [address] [id number] [place] [address] 18 Jan, 2015 [facility] [place] [facility] [address] [facility] [id number] [place] [address] 17 Jan, 2015 [facility] [place] [facility] [address] [facility] [id number] [place] [address] Jan, [facility] [place] [facility] [address] [facility] [id number] [place] [address] Dec, [facility] [place] [facility] [address] [id number] [place] [address] Dec, [facility] [place] [facility] [address] [id number] [place] [address] Dec, [facility] [place] [facility] [address] [facility] [id number] [place] [address] Nov, [facility] [place] [facility] [address] [facility] [id number] [place] [address] Nov, [facility] [address] [facility] [id number] [place] [address] Nov, [facility] [address] [facility] [id number] [place] [address] Oct, [facility] [address] [facility] [id number] [place] [address] 39[address] Oct, [facility] [address] [facility] [id number] [place] [address] 390[address] Oct, Renal failure 586 and Obesity 278.00 [facility] [address] [facility] [id number] [place] [address]11 Oct, [facility] [id number] [address] Oct, [facility] [id number] [place] [address], [place] [address] Oct, [facility] [id number] [place] [address] Sep, [facility] [id number] [place] [address] Sep, [facility] [id number] [place] [address] 6[address] Sep, Diabetes mellitus 250.00 and Congestive heart failure, unspecified 428.0 [facility] [id number] [address] Aug, [facility] [address] [id number] [address] Aug, [facility] [id number] [place] [address]- 4734 Aug, [facility] [address] [facility] [id number], [place] [address] July, [facility] [address], [place] [address] July, [facility] [address] [id number] [place] [address] 8916 July, Heart murmur, systolic 785.2 [facility] [address] [id number] [place] [address] 5[address] July, [facility] [address] [id number] [place] [address]- 4436 July, [facility] [address] [id number] [place] [address]- [address]26 Jun, [facility] [address] [id number] [place] [address]- [address], [facility] [address] [id number] [place] [address]- [address] May, [facility] [address] [id number] [place] [address]- [address] May, [facility] [address] [id number] [place] [address]- 0744 May, [facility] [address] [id number] [place] [address]- [address] May, [facility] [address] [id number] [place] [address]- 2525 May, [facility] [address] [id number] [place] [address]- 0717 16 May, [address] [facility] [address] [id number] [place] [address]- 2995 May, [facility] [address] [id number] [place] [address]- [address] May, [facility] [address] [id number] [place] [address]- [address] May, [facility] [address] [id number] [place] [address]- 6250 May, [facility] [place] [facility] [address] [id number] [place] [address]- 9163 May, 2014 [facility] [place] [facility] [address] [id number] [place] [address]- 9026 May, 2014 [facility] [place] [facility] [address] [facility] [id number] [place] [address]- 4594 May, 2014 [facility] [place] [facility] [address] [facility] [id number] [place] [address]- 6320 May, 2014 [facility] [place] [facility] [address] [id number] [place] [address]- 6084 May, 2014 [facility] [place] [facility] [address] [facility] [id number] [place] [address]- 9728 May, 2014 [facility] [place] [facility] [address] [facility] [id number] [place] [address]- 3065 May, 2014 [facility] [place] [facility] [address] [facility] [id number] [place] [address]- 0220 May, 2014 [facility] [place] [facility] [address] [facility] [id number] [place] [address]- 1557 May, 2014 [facility] [place] [facility] [address] [facility] [id number] [place] [address]- 2351 May, 2014 [facility] [place] [facility] [address] [facility] [id number] [place] [address]- 1447 16 May, 2014 [facility] [place] [facility] [address] [facility] [id number] [place] [address]- 2543 May, 2014 [facility] [place] [facility] [address] [facility] [id number] [place] [address]- 4349 May, 2014 [facility] [place] [facility] [address] [facility] [id number] [place] [address]- 4878 May, 2014 [facility] [place] [facility] [address] [facility] [id number] [place] [address]- 0370 02 May, 2014 [facility] [place] [facility] [address] [id number] [place] [address]- 6283 May, [facility] [place] [facility] [address] [id number] [place] [address]- 6107 Apr, [facility] [place] [facility] [address] [id number] [place] [address]- 5076 Apr, [facility] [place] [facility] [address] [id number] [place] [address]- 5519 Apr, [facility] [place] [facility] [address] [id number] [place] [address]- 6269 Apr, [facility] [place] [facility] [address] [id number] [place] [address]- 9094 Apr, [facility] [place] [facility] [address] [id number] [place] [address]- 8377 Apr, [facility] [place] [facility] [address] [id number] [place] [address]- 6143 Apr, [facility] [place] [facility] [address] [id number] [place] [address]- 4331 Apr, [facility] [place] [facility] [address] [id number] [place] [address]- 6692 Mar, [facility] [place] [facility] [address] [id number] [place] [address]- 1273 Mar, [facility] [place] [facility] [address] [id number] [place] [address]- 6415 Mar, [facility] [place] [facility] [address] [id number] [place] [address]- 7446 Mar, [facility] [place] [facility] [address] [id number] [place] [address]- 3550 Mar, [facility] [place] [facility] [address] [id number] [place] [address]- 4383 Mar, [facility] [place] [facility] [address] [id number] [place] [address]- 0488 Mar, [facility] [place] [facility] [address] [id number] [place] [address]- 4200 18 Mar, 2014 [facility] [place] [facility] [address] [id number] [place] [address]- 3383 Mar, [facility] [place] [facility] [address] [id number] [place] [address]- 1416 Mar, [facility] [place] [facility] [address] [id number] [place] [address]- 7958 Mar, [facility] [place] [facility] [address] [id number] [place] [address]- 6077 Mar, [facility] [place] [facility] [address] [id number] [place] [address]- 9334 Mar, [facility] [place] [facility] [address] [id number] [place] [address]- 3242 Mar, [facility] [place] [facility] [address] [id number] [place] [address]- 1164 Mar, [facility] [place] [facility] [address] [id number] [place] [address]- 8246 Mar, [facility] [place] [facility] [address] [id number] [place] [address]- 4426 Mar, [facility] [place] [facility] [address] [id number] [place] [address]- 3912 Mar, [facility] [place] [facility] [address] [id number] [place] [address]- 5635 Mar, [facility] [place] [facility] [address] [id number] [place] [address]- 8215 Mar, [facility] [place] [facility] [address] [id number] [place] [address]- 6762 Mar, [facility] [place] [facility] [address] [id number] [place] [address]- 7346 Mar, [facility] [place] [facility] [address] [id number] [place] [address]- 1075 Jan, [facility] [place] [facility] [address] [id number] [place] [address]- 1258 Jan, [facility] [place] [facility] [address] [id number] [place] [address]- 3605 Jan, [facility] [place] [facility] [address] [id number] [place] [address]- 6594 Jan, [facility] [place] [facility] [address] [id number] [place] [address]- 6298 Jan, [facility] [place] [facility] [address] [id number] [place] [address]- 1972 Jan, [facility] [place] [facility] [address] [id number] [place] [address]- 1309 Jan, [facility] [place] [facility] [address] [id number] [place] [address]- 8496 Jan, [facility] [place] [facility] [address] [id number] [place] [address]- 3867 Jan, [facility] [place] [facility] [address] [id number] [place] [address]- 9869 Jan, [facility] [place] [facility] [address] [id number] [place] [address]- 7740 Jan, [facility] [place] [facility] [address] [id number] [place] [address]- 7096 Jan, [facility] [place] [facility] [address] [id number] [address]- 5579 Jan, [facility] [place] [facility] [address] [id number] [place] [address]- 1673 Jan, [facility] [place] [facility] [address] [id number] [place] [address]- 0183 Jan, [facility] [place] [facility] [address] [id number], [place] [address]- 3230 Jan, [facility] [place] [facility] [address] [id number] [place] [address]- 3592 Jan, [facility] [place] [facility] [address] [id number] [place] [address]- 9340 Jan, [facility] [place] [facility] [address] [id number] [place] [address] Jan, [facility] [place] [facility] [address] [id number] [place] [address]- 7276 Jan, [facility] [place] [facility] [address] [id number] [place] [address]- 3740 Dec, [facility] [place] [facility] [address] [id number] [place] [address]- 3338 Dec, [facility] [place] [facility] [address] [id number] [place] [address]- 5930 Dec, [facility] [place] [facility] [address] [id number] [place] [address]- 4638 Dec, [facility] [place] [facility] [address] [id number] [place] [address]- 5098 Dec, [facility] [place] [facility] [address] [id number] [place] [address]- 0158 Dec, [facility] [place] [facility] [address] [id number] [place] [address]- 3959 Dec, [facility] [place] [facility] [address] [id number] [place] [address]- 6411 Dec, [facility] [place] [facility] [address] [id number] [place] [address]- 9567 Dec, [facility] [place] [facility] [address] [id number] [place] [address]- 0621 Dec, [facility] [place] [facility] [address] [id number] [place] [address]- 5842 08 Dec, 2013 [facility] [place] [facility] [address] [id number] [place] [address]- 4808 Dec, [facility] [place] [facility] [address] [id number] [place] [address]- 3334 Dec, [facility] [place] [facility] [address] [id number] [place] [address]- 2816 Dec, [facility] [place] [facility] [address] [id number] [place] [address]- 7386 Dec, [facility] [place] [facility] [address] [id number] [place] [address]- 8374 22 Nov, 2013 [facility] [place] [facility] [address] [id number] [place] [address]- 8548 22 Nov, 2013 [facility] [place] [facility] [address] [id number] [place] [address]- 1539 19 Nov, 2013 [facility] [place] [facility] [address] [id number] [place] [address]- 9322 19 Nov, 2013 [facility] [place] [facility] [address] [id number] [place] [address]- 9171 13 Nov, 2013 [facility] [place] [facility] [address] [id number] [place] [address] 2549 13 Nov, 2013 [facility] [place] [facility] [address] [id number] [place] [address]- 2543 10 Nov, 2013 [facility] [place] [facility] [address] [id number] [place] [address]- 9021 10 Nov, 2013 [facility] [place] [facility] [address] [id number] [place] [address]- 6838 08 Sep, 2013 [facility] [place] [facility] [address] [id number] [place] [address]- 254 05 Sep, 2013 [facility] [place] [facility] [address] [id number] [place] [address]- 2543 05 Sep, 2013 [facility] [place] [facility] [address] [id number] [place] [address]- 2544 03 Sep, 2013 [facility] [place] [facility] [address] [id number] [place] [address]- 6000 Nov, [facility] [place] [facility] [address] [id number] [place] [address]- 5878 Oct, [facility] [place] [facility] [address] [id number] [place] [address]- 0013 Oct, [facility] [place] [facility] [address] [id number] [place] [address]- 0634 Oct, [facility] [place] [facility] [address] [id number] [place] [address]- 7402 Oct, [facility] [place] [facility] [address] [id number] [place] [address]- 1130 Oct, [facility] [place] [facility] [address] [id number] [place] [address]- 4749 Sep, [facility] [place] [facility] [address] [id number] [place] [address]- 0365 Sep, [facility] [place] [facility] [address] [id number] [place] [address]- 8930 Sep, [facility] [place] [facility] [address] [id number] [place] [address]- 8241 Sep, [facility] [place] [facility] [address] [id number] [place] [address]- 7416 Aug, [facility] [place] [facility] [address] [id number] [place] [address]- 1159 Aug, [facility] [place] [facility] [address] [id number] [place] [address]- 9239 Aug, [facility] [place] [facility] [address] [id number] [place] [address]- 9329 Aug, [facility] [place] [facility] [address] [id number] [place] [address]- 5410 Aug, [facility] [place] [facility] [address] [id number] [place] [address]- 2381 Aug, [facility] [place] [facility] [address] [id number] [place] [address]- 2536 Aug, [facility] [place] [facility] [address] [id number] [place] [address]- 5910 Aug, [facility] [place] [facility] [address] [id number] [place] [address]- 9086 Aug, [facility] [place] [facility] [address] [id number] [place] [address]- 6156 Aug, [facility] [place] [facility] [address] [id number] [place] [address]- 4492 Aug, [facility] [place] [facility] [address] [id number] [place] [address]- 3932 Aug, [facility] [place] [facility] [address] [id number] [place] [address]- 7298 Aug, [facility] [place] [facility] [address] [id number] [place] [address]- 0778 Aug, [facility] [place] [facility] [address] [id number] [place] [address]- 4973 Aug, [facility] [place] [facility] [address] [id number] [place] [address]- 3707 Aug, [facility] [place] [facility] [address] [id number], [place] [address]- 9532 Aug, [facility] [place] [facility] [address] [id number], [place] [address]- 4776 Aug, [facility] [place] [facility] [address] [id number] [place] [address]- 2141 Aug, [facility] [place] [facility] [address] [id number] [place] [address]- 5515 Aug, [facility] [place] [facility] [address] [id number], [place] [address]- 5229 Aug, [facility] [place] [facility] [address] [id number], [place] [address]- 8227 Aug, [facility] [place] [facility] [address] [id number] [place] [address]- 5433 Aug, [facility] [place] [facility] [address] [id number] [place] [address]- 5232 Aug, [facility] [place] [facility] [address] [id number] [place] [address]- 3062 July, [facility] [place] [facility] [address] [id number] [place] [address]- 8358 July, [facility] [place] [facility] [address] [id number] [place] [address]- 1725 July, [facility] [place] [facility] [address] [id number] [place] [address]- 3869 July, [facility] [place] [facility] [address] [id number] [place] [address]- 2271 July, [facility] [place] [facility] [address] [id number] [place] [address]- 5586 July, [facility] [place] [facility] [address] [id number] [place] [address]- 0869 Jun, [facility] [place] [facility] [address] [id number] [place] [address]- 8617 Jun, [facility] [place] [facility] [address] [id number] [place] [address]- 7219 Jun, [facility] [place] [facility] [address] [id number] [place] [address]- 0815 Jun, [facility] [place] [facility] [address] [id number] [place] [address]- 9075 Jun, [facility] [place] [facility] [address] [id number] [place] [address]- 0173 Jun, [facility] [place] [facility] [address] [id number] [place] [address]- 2112 Jun, [facility] [place] [facility] [address] [id number] [place] [address]- 8702 Jun, [facility] [place] [facility] [address] [id number] [place] [address]- 9686 Jun, [facility] [place] [facility] [address] [id number] [place] [address]- 9426 Jun, [facility] [place] [facility] [address] [id number] [place] [address]- 8746 Jun, [facility] [place] [facility] [address] [id number] [place] [address]- 2230 Jun, [facility] [place] [facility] [address] [id number] [place] [address]- 2878 Jun, [facility] [place] [facility] [address] [id number] [place] [address]- 0084 Jun, [facility] [place] [facility] [address] [id number] [place] [address]- 0080 Jun, [facility] [place] [facility] [address] [id number] [place] [address]- 6826 May, [facility] [place] [facility] [address] [id number] [place] [address]- 0759 May, [facility] [place] [facility] [address] [id number] [place] [address]- 5323 May, [facility] [place] [facility] [address] [id number] [place] [address]- 9120 May, [facility] [place] [facility] [address] [id number] [place] [address]- 8857 May, [facility] [place] [facility] [address] [id number] [place] [address]- 3686 May, [facility] [place] [facility] [address] [id number] [place] [address]- 2136 May, [facility] [place] [facility] [address] [id number] [place] [address]- 3250 May, [facility] [place] [facility] [address] [id number] [place] [address]- 2233 May, [facility] [place] [facility] [address] [id number] [place] [address]- 1450 May, [facility] [place] [facility] [address] [id number] [place] [address]- 3778 May, [facility] [place] [facility] [address] [id number] [place] [address]- 7404 May, [facility] [place] [facility] [address] [id number] [place] [address]- 5401 May, [facility] [place] [facility] [address] [id number] [place] [address] May, [facility] [place] [facility] [address] [id number] [place] [address] May, [facility] [place] [facility] [address] [id number] [place] [address] May, [facility] [place] [facility] [address] [id number] [place] [address] May, [facility] [place] [facility] [address] [id number] [place] [address] Apr, [facility] [place] [facility] [address] [id number] [place] [address] Apr, [facility] [place] [facility] [address] [id number] [place] [address] Apr, [facility] [place] [facility] [address] [id number] [place] [address] Apr, [facility] [place] [facility] [address] [id number] [place] [address] Apr, [facility] [place] [facility] [address] [id number] [place] [address] Apr, [facility] [place] [facility] [address] [id number] [place] [address]- [address] 10 Apr, 2013 [facility] [address] [id number] [place] [address]- [address] Apr, [facility] [place] [facility] [address] [id number] [place] [address] Apr, [facility] [address] [id number] [place] [address]- [address] Apr, [facility] [address] [id number] [place] [address] Apr, [facility] [address] [id number] [place] [address] Apr, [facility] [address] [id number] [place] [address]- [address], [facility] [address] [id number] [place] [address]- [address] Apr, [facility] [address] [id number] [place] [address] Apr, [facility] [address] [id number] [place] [address]- [address], [facility] [address] [id number] [place] [address]- [address] Mar, [facility] [address] [id number] [place] [address]- [address] Mar, [facility] [address] [id number] [place] [address]- [address] Mar, [facility] [place] [facility] [address] [id number] [place] [address]- [address] Mar, [facility] [place] [facility] [address] [id number] [place] [address]- [address] Mar, [facility] [place] [facility] [address] [id number] [place] [address]- [address] Mar, [facility] [address] [id number] [place] [address]- [address] 18 Mar, 2013 [facility] [place] [facility] [address] [id number] [place] [address]- [address]607 Mar, [facility] [place] [facility] [address] [id number] [place] [address]- [address] Mar, [facility] [place] [facility] [address] [id number] [place] [address]- [address] Mar, [facility] [place] [facility] [address] [id number] [place] [address]- [address] Mar, [facility] [place] [facility] [address] [id number] [place] [address]- [address]170 Mar, [facility] [place] [facility] [address] [id number] [place] [address]- [address]71 Mar, [facility] [place] [facility] [address] [id number] [place] [address]- [address] Mar, [facility] [place] [facility] [address] [id number] [place] [address]- 1414 Mar, [facility] [place] [facility] [address] [id number] [place] [address]- [address] Mar, [facility] [place] [facility] [address] [id number] [place] [address]- [address] Mar, [facility] [place] [facility] [address] [id number], [place] [address] Mar, [facility] [place] [facility] [address] [id number] [place] [address] Jan, [facility] [place] [facility] [address] [id number] [place] [address]- [address] Jan, [facility] [place] [facility] [address] [id number] [place] [address]- [address] Jan, [facility] [place] [facility] [address] [id number] [place] [address]- [address] Jan, [facility] [address] [id number] [place] [address]- [address] 27 Nov, 2012 [facility] [place] [facility] [address] [id number] [place] [address]- [address] 10 Nov, 2012 [facility] [place] [facility] [address] [id number] [place] [address]- [address] Nov, [facility] [place] [facility] [address] [id number] [place] [address]- [address]27 Nov, [facility] [place] [facility] [address] [id number] [place] [address]- [address]49 Oct, [facility] [place] [facility] [address] [id number] [place] [address]- [address]73 Oct, [facility] [address] [id number] [place] [address]- [address] Oct, [facility] [place] [facility] [address] [id number] [place] [address]- [address] Oct, [facility] [place] [facility] [address] [id number] [place] [address]- [address] Sep, [facility] [place] [facility] [address] [id number] [place] [address]- [address] Sep, [facility] [place] [facility] [address] [id number] [place] [address]- [address] Sep, [facility] [place] [facility] [address] [id number] [place] [address]- [address]208 Sep, [facility] [place] [facility] [address] [id number] [place] [address]- 2949 Sep, [facility] [place] [facility] [address] [id number] [place] [address]- 9918 Sep, [facility] [place] [facility] [address] [id number] [place] [address]- 1873 Sep, [facility] [place] [facility] [address] [id number] [place] [address]- [address]472 Sep, [facility] [address] [id number] [place] [address]- 74[address] Sep, [facility] [place] [facility] [address] [id number] [place] [address]- [address]478 Aug, [facility] [place] [facility] [address] [id number] [place] [address]- 225[address] Aug, [facility] [place] [facility] [address] [id number] [place] [address]- [address] Aug, [facility] [place] [facility] [address] [id number] [place] [address]- [address] Aug, [facility] [address] [id number] [place] [address] July, [facility] [address] [id number] [place] [address] July, [facility] [address] [id number] [place] [address] July, [facility] [address] [id number] [place] [address] July, [facility] [address] [id number] [place] [address] July, [facility] [place] [facility] [address] [id number] [place] [address] July, [facility] [place] [facility] [address] [id number] [place] [address] July, [facility] [place] [facility] [address] [id number] [place] [address] Jun, [facility] [place] [facility] [address] [id number] [place] [address] May, [facility] [place] [facility] [address] [id number] [place] [address] May, [facility] [address] [facility] [id number] [place] [address] May, [facility] [address] [facility] [id number], [place] [address] May, [facility] [address] [facility] [id number], [place] [address] May, [facility] [address] [facility] [id number], [place] [address] May, [facility] [address] [facility] [id number], [place] [address] May, [facility] [address] [facility] [id number], [place] [address] May, IMMUNIZATIONS No Known Immunizations SOCIAL HISTORY Never Assessed REASON FOR VISIT EMR-[facility] PLAN OF CARE VITAL SIGNS MEDICATIONS Unknown [...] 03/2015 Hospitalization History Pneumonia 04/2015 Hospitalization History [facility] - unresponsive 11/2017 Hospitalization History [facility]- one week 03/2018 Hospitalization History [facility] 03/10-03/12/2019 Hospitalization History [facility] ER 05/2018
--- OUTSIDE RECORDS SUMMARY | 2018-07-14 17:51 | XMS REPORT ---
Author Author Migration, Doctor Organization [facility] Address Unknown Phone Unavailable Care Team Providers Care Residential Appliance Repair Technician Name Role Phone Migration, Doctor Unavailable Unavailable PROBLEMS Type Condition ICD9-CM Code TSE64-FC Code Onset Dates Condition Status SNOMED Code Problem Cellulitis of right lower extremity L03.115 Active 162168635 Problem Neuropathy G62.9 Active 683089868 Problem Renal failure N19 Active 74559902 Problem Intra-dialytic hypotension I95.3 Active 029286201 Problem Amput below knee, unilat S88.119A Active 19771365 Problem Seasonal allergic rhinitis due to other allergic trigger J30.89 Active 208038016 Problem Chronic congestive heart failure, unspecified congestive heart failure type I50.9 Active 24190604 Problem Other chronic pain G89.29 Active 14341047 Problem 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 Active 4480805 Problem Primary insomnia F51.01 Active 5449801 Problem Paroxysmal atrial fibrillation I48.0 Active 603322997 Problem Angina pectoris I20.9 Active 439444510 Problem Type 2 diabetes mellitus with hyperglycemia, unspecified whether fdc insulin use E11.65 Active 030225174332450 Problem Chronic congestive heart failure, unspecified heart failure type I50.9 Active 63037076 Problem Self-care deficit for toileting R46.0 Active 435157475 Problem Bronchitis J40 Active 28147276 Problem Observed sleep apnea G47.30 Active 79506580 Problem Unsteady gait R26.81 Active 332507503 ALLERGIES No Information ENCOUNTERS Encounter Location Date Diagnosis [facility] [address] [facility] [id number] [address] May, [place] [address] [address] 8[address] May, Diabetes type 2, controlled E11.9 [place] [address] [place] [id number] [address] 3[address] May, [place] [id number] [address] 8293 08 May, 2018 Pressure injury of coccygeal region, stage 2 L89.152 ; Nausea R11.0 ; Chronic congestive heart failure, unspecified congestive heart failure type I50.9 ; Observed sleep apnea G47.30 and Morbid obesity E66.01 [facility] [address] [address] May, [facility] [id number] [place] [address] 17972- 2758 May, [facility] [id number] [place] [address] 18646- 1882 May, [facility] [id number] [place] [address] 54300- 9319 May, [facility] [id number] [place] [address] 31078- 8709 May, [facility] [id number] [place] [address] 51999- 2148 18 May, 2018 Renal failure N19 [facility] [id number] [place] [address] 86468- 1661 14 May, 2018 [facility] [id number] [place] [address] 85718- 2126 13 May, 2018 Neuropathy G62.9 and Renal failure N19 [facility] [id number] [place] [address] 42581- 4058 08 May, 2018 [facility] [address] [place] [address] 75697- 9946 07 May, 2018 [facility] [id number] [place] [address] 03414- 0929 04 May, 2018 [facility] [address] [place] [address] 57110- 1268 Apr, [facility] [id number] [place] [address] 53106- 8046 Apr, [facility] [id number] [place] [address] 09444- 9052 Apr, [facility] [id number] [place] [address] 30619- 1270 Mar, Diabetes type 2, controlled E11.9 [facility] [address] [address]- 2162 Mar, Paroxysmal atrial fibrillation I48.0 ; Observed sleep apnea G47.30 ; Unsteady gait R26.81 and Bilious vomiting with nausea R11.14 [facility] [address] [address]57- 0132 Mar, [facility] [address] 33019- 7828 Mar, [facility] [address] 75189- 5555 Mar, [facility] [id number] [place] [address] 83930- 5577 Mar, [facility] [id number] [place] [address] 06453- 0208 Mar, Diabetes type 2, controlled E11.9 ; BMI 50.0-59.9, adult Z68.43 ; Bronchitis J40 and Other chronic pain G89.29 [facility] [address] [id number] [place] [address] 35801- 9426 Mar, [facility] [id number] [place] [address] 23592- 8096 Mar, [facility] [id number] [place] [address] 55687- 4851 Jan, [facility] [id number] [place] [address] 87939- 3828 Jan, [facility] [id number] [place] [address] 14713- 0469 Dec, [facility] [address] [address]- 5674 Dec, [facility] [id number] [place] [address] 89946- 6982 Dec, [facility] [id number] [place] [address] 50300- 2184 Nov, Pneumonia due to infectious organism, unspecified laterality , unspecified part of lung J18.9 and Self-care deficit for toileting R46.0 [facility] [id number] [place] [address] 35011- 5644 Nov, [facility] [id number] [place] [address] 87870- 4934 Oct, Diabetes type 2, controlled E11.9 ; Primary insomnia F51.01 and Bilateral headaches R51 [facility] [address] [address] [id number] [place] [address] 70966- 2403 Oct, [facility] [id number] [place] [address] 39280- 6046 Sep, [facility] [id number] [place] [address] [id number] Sep, Dental examination Z01.20 and Dental caries K02.9 [facility] [address] [place] [address] 20532- 9090 Sep, [facility] [id number] [place] [address] 40522- 3754 Sep, [facility] [address] [place] [address] 55156- 5315 Sep, Other chronic pain G89.29 and Pain in right knee M25.561 [facility] [id number] [place] [address] 40276- 8531 Sep, [facility] [id number] [place] [address] 14791- 4390 Aug, [facility] [address] [facility] [id number] [place] [address] 5250 Aug, 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 [facility] [address] [facility] [id number] [place] [address] 0153 15 Aug, 2017 [facility] [address] [facility] [id number] [place] [address] 9053 11 Aug, 2017 Diabetes type 2, controlled E11.9 and Acute pain of right knee M25.561 [facility] [address] [facility] [id number] [place] [address]- 5223 09 Aug, 2017 [facility] [id number] [place] [address] 51087- 1046 July, [facility] [address] [address]- 6820 16 Jun, 2017 [facility] [address] [address]- 4552 Jun, [facility] [address] [address]- 0139 10 Jun, 2017 Diabetes type 2, controlled E11.9 [facility] [address]005[address] [address]- 7812 Jun, [facility] [address] [place] [id number] [address]- 2414 May, [facility] [address] [address]- 8699 May, [facility] [address] [place] [address] [id number] [address]- 4743 May, [facility] [address] [address]- 5221 May, Chronic congestive heart failure, unspecified congestive heart failure type I50.9 [facility] [address] [address]- 6579 May, Diabetes type 2, controlled E11.9 ; BMI 50.0-59.9, adult Z68.43 ; Chronic congestive heart failure, unspecified heart failure type I50.9 ; Angina pectoris I20.9 ; Seasonal allergic rhinitis due to other allergic trigger J30.89 and Renal failure N19 [facility] [address] [address] May, [facility] [address] [place] [address] [id number] [place] [address] 46779- 9970 May, [facility] [address] [place] [id number] [place] [address] 64497- 5341 May, [facility] [address] [place] [address] [id number] [place] [address] 71219- 4974 May, [facility] [address] [place] [address] [id number] [place] [address] 94673- 7423 May, [facility] [address] [place] [address] [id number] [place] [address] 65141- 4838 Apr, BMI 50.0-59.9, adult Z68.43 [facility] [address] [place] [address] [id number] [place] [address] 87846- 9989 Apr, BMI 50.0-59.9, adult Z68.43 ; Post-procedural fever R50.82 and Bronchitis J40 [facility] [address] [place] [address] 23213- 1703 Apr, Chronic congestive heart failure, unspecified congestive heart failure type I50.9 [facility] [id number] [place] [address] 35614- 6305 Jan, [facility] [id number] [place] [address] 36017- 4783 Jan, Diabetes type 2, controlled E11.9 [facility] [address] [place] [address] [id number] [place] [address] 35463- 9824 Jan, Neuropathy G62.9 [facility] [address] [place] [address] [address]- 4336 16 Jan, 2017 [facility] [address] [facility] [id number] [place] [address]- 2246 Jan, [facility] [address] [id number] [place] [address]- 8329 Jan, [facility] [address] [id number] [place] [address]- 7110 Jan, [facility] [address] [id number] [place] [address]- 5720 Jan, [facility] [address] [place] [id number] [address]- 8048 Dec, [facility] [address] [id number] [place] [address]- 7554 Dec, [facility] [address] [address]- 0759 Dec, Diabetes type 2, controlled E11.9 [facility] [address] [place] [id number] [address]- 1445 Dec, [facility] [address] [address]- 0073 Dec, [facility] [address] [address]- 1698 Dec, Chronic congestive heart failure, unspecified congestive heart failure type I50.9 [facility] [address] [place] [address] [id number] [address]- 9917 Dec, [facility] [address] [id number] [place] [address]- 7961 Dec, [facility] [address] [place] [address] [id number] [address]- 3856 Nov, Chronic congestive heart failure, unspecified congestive heart failure type I50.9 [facility] [address] [place] [address] [id number] [address]- 9017 Nov, Chronic congestive heart failure, unspecified congestive heart failure type I50.9 [facility] [address] [id number] [place] [address]- 7971 Nov, [facility] [address] [address]- 1011 Oct, [facility] [address]005[address] [address]- 9877 Oct, [facility] [address] [place] [address] 13851- 9321 Oct, Chronic congestive heart failure, unspecified congestive heart failure type I50.9 [facility] [address] [place] [address] 92402- 8871 Oct, [facility] [address] [address]- 7005 Oct, Pneumonia of both lungs due to infectious organism, unspecified part of lung J18.9 [facility] [address] [address]- 3800 Oct, [facility] [address] [address]- 6396 Oct, Diabetes type 2, controlled E11.9 [facility] [address] [address]- 0969 Oct, Diabetes type 2, controlled E11.9 [facility] [address] [address]- 7201 Sep, [facility] [address] [address]- 9399 Sep, Neuropathy G62.9 [facility] [address]100[place] [address]- 9782 Aug, Intra-dialytic hypotension I95.3 [facility] [address] [address]- 4198 July, [facility] [address] [id number] [place] [address] 2546 July, [facility] [address] [facility] [id number] [place] [address] 2546 July, [facility] [address] [place] [address] 2546 July, Amput below knee, unilat S88.119A [facility] [address] [id number] [place] [address] 2546 May, [facility] [address] [facility] [id number] [place] [address] 2546 May, Neuropathy G62.9 [facility] [address] [place] [address] 2546 May, [facility] [address] [place] [address] 2546 May, [facility] [address] [place] [address] 2546 May, [facility] [address] [place] [address]- 0906 May, [facility] [address] [place] [address] 2546 May, Neuropathy G62.9 [facility] [address] [place] [address] 2546 Apr, [facility] [address] [facility] [id number] [place] [address] 2546 Apr, [facility] [address] [place] [address]- 8459 Apr, Diabetes type 2, controlled E11.9 and Renal failure N19 [facility] [address] [id number] [place] [address] 2546 Apr, [facility] [address] [place] [address]- 1912 Apr, [facility] [address] [place] [address]- 0023 Mar, [facility] [address]100[facility] [place] [address]- 7526 Mar, [facility] [id number] [place] [address] 21085- 9420 Mar, [facility] [id number] [place] [address], [place] [address]- 8546 Mar, [facility] [id number] [place] [address], [place] [address]- 1314 Mar, [facility] [id number] [place] [address], [place] [address]- 9745 Jan, Localized edema R60.0 [facility] [id number] [place] [address] 82837- 4548 Jan, [facility] [address]100[place] [address]- 1933 Jan, [facility] [id number] [place] [address] 27752- 5775 Jan, [facility] [address] [address]- 6516 Jan, [facility] [address]100[place] [address]- 8497 Jan, [facility] [address]005[address]100[place] [address]- 4503 Jan, [facility] [id number] [place] [address] 08005- 5931 Dec, Diabetes type 2, controlled E11.9 and Chronic nonintractable headache, unspecified headache type R51 [facility] [address]005[address]100[place] [address]- 0486 Dec, [facility] [address]100[place] [address]- 3735 Dec, [facility] [id number] [place] [address] 50066- 6170 Nov, [facility] [address] [address]- 8399 Nov, [facility] [address] [place] [address] 90545- 9330 Oct, [facility] [address] [address]- 8043 Oct, Migraine without status migrainosus, not intractable, unspecified migraine type G43.909 [facility] [address] [address]- 8354 Oct, [facility] [address] [place] [address] 00915- 4749 Sep, Amput below knee, unilat S88.119A and Neuropathy G62.9 [facility] [address] [address]- 2624 Sep, [facility] [address] [place] [address] 26594- 2820 Sep, [facility] [address] [address]- 7875 Sep, [facility] [address] [address]- 6522 Aug, [facility] [address] [address]- 9569 Aug, [facility] [address] [place] [address] 70015- 5607 Aug, Diabetes type 2, controlled E11.9 [facility] [address] [address]- 4204 Aug, [facility] [id number] [address]- 8376 Jun, Diabetes type 2, controlled E11.9 and Neuropathy G62.9 [facility] [address] [id number] [place] [address]- 1316 14 Jul, 2015 [facility] [address] [facility] [id number] [place] [address]- 1460 Jun, [facility] [address] [facility] [id number] [place] [address]- 8738 Jun, [facility] [address] [facility] [id number] [place] [address]- 6213 Jun, [facility] [address] [facility] [id number] [place] [address]- 3505 May, [facility] [address] [place] [address]- 0095 May, Diabetes type 2, controlled E11.9 [facility] [address]100[facility] [address]- 9520 May, [facility] [address] [address]- 0861 May, [facility] [address] [address]- 0599 May, [facility] [address] [address]- 0242 May, [facility] [address] [address]- 2702 17 May, 2015 [facility] [address] [address]- 7417 16 May, 2015 [facility] [address] [address]- 2731 16 May, 2015 [facility] [address] [address]- 0508 15 May, 2015 COPD (chronic obstructive pulmonary disease) J44.9 [facility] [address] [id number] [place] [address]- 5158 15 May, 2015 [facility] [address] [address]- 6447 May, [facility] [address] [place] [address]- 1172 May, [facility] [address] [address]- 5469 May, [facility] [address]100[facility] [place] [address]- 7218 May, [facility] [address] [address]- 2825 May, Renal failure N19 and Pneumonia, organism unspecified, unspecified laterality, unspecified part of lung J18.9 [facility] [address] [address]- 9376 Apr, [facility] [address] [address]- 5017 Apr, [facility] [address] [address]- 8643 Apr, [facility] [address] [id number] [address]- 1288 Apr, Diabetes mellitus 250.00 [facility] [address] [address]- 2098 Apr, [facility] [address] [id number] [address]- 9520 Apr, [facility] [address] [address]- 3443 Apr, [facility] [address] [id number] [address]- 7855 Apr, [facility] [address] [place] [address]- 4468 31 Mar, 2015 [facility] [place] [facility] [address] [id number] [place] [address]- 9228 28 Mar, 2015 [facility] [place] [facility] [address] [id number] [place] 0156 23 Mar, 2015 [facility] [place] [facility] [address] [id number] [place] [address]- 9474 16 Mar, 2014 Renal failure N19 [facility] [place] [facility] [address] [id number] [place] [address] 14 Mar, 2015 [facility] [place] [facility] [address] [id number] [place] [address] 07 Mar, 2015 [facility] [place] [facility] [address] [facility] [id number] [place] [address] 04 Mar, 2015 [facility] [place] [facility] [address] [id number] [place] [address] 24 Jan, 2015 [facility] [place] [facility] [address] [id number] [place] [address] 18 Jan, 2015 [facility] [place] [facility] [address] [facility] [id number] [place] [address] 17 Jan, 2015 [facility] [place] [facility] [address] [facility] [id number] [place] [address] Jan, [facility] [place] [facility] [address] [facility] [id number] [place] [address] Dec, [facility] [place] [facility] [address] [id number] [place] [address] [address] Dec, [facility] [place] [facility] [address] [id number] [place] [address] Dec, [facility] [place] [facility] [address] [facility] [id number] [place] [address] Nov, [facility] [place] [facility] [address] [facility] [id number] [place] [address] Nov, [facility] [address] [facility] [id number] [place] [address] Nov, [facility] [address] [facility] [id number] [place] [address] Oct, [facility] [address] [facility] [id number] [place] [address] Oct, [facility] [address] [facility] [id number] [place] [address] Oct, Renal failure 586 and Obesity 278.00 [facility] [address] [facility] [id number] [place] [address] Oct, [facility] [id number] [address] Oct, [facility] [id number] [place] [address], [place] [address] Oct, [facility] [facility] [id number] [address] Sep, [facility] [id number] [address] Sep, [facility] [id number] [address] Sep, Diabetes mellitus 250.00 and Congestive heart failure, unspecified 428.0 [facility] [id number] [address] Aug, [facility] [address] [id number] [address] Aug, [facility] [id number] [address] Aug, [facility] [address] [facility] [id number] [address] July, [facility] [id number] [address] July, [facility] [address] [id number] [place] [address] July, Heart murmur, systolic 785.2 [facility] [address] [id number] [place] [address] July, [facility] [address] [id number] [place] [address] July, [facility] [address] [id number] [place] [address]- 6785 Jun, [facility] [address] [id number] [place] [address]- 4679 Jun, [facility] [address] [id number] [place] [address] 8776 May, [facility] [address] [id number] [place] [address]- 2658 May, [facility] [address] [id number] [place] [address]- 1131 May, [facility] [address] [id number] [place] [address]- 0777 May, [facility] [address] [id number] [place] [address]- 7789 May, [facility] [address] [id number] [place] [address]- 4819 16 May, 2014 [facility] [address] [id number] [place] [address]- 5144 May, [facility] [address] [id number] [place] [address]- 0270 May, [facility] [address] [id number] [place] [address]- 1761 May, [facility] [address] [id number] [place] [address]- 8397 May, [facility] [place] [facility] [address] [id number] [place] [address]- 3980 May, 2014 [facility] [place] [facility] [address] [id number] [place] [address]- 4696 May, 2014 [facility] [place] [facility] [address] [facility] [id number] [place] [address]- 2343 May, 2014 [facility] [place] [facility] [address] [facility] [id number] [place] [address]- 5147 May, 2014 [facility] [place] [facility] [address] [id number] [place] [address]- 0707 May, 2014 [facility] [place] [facility] [address] [facility] [id number] [place] [address]- 8006 May, 2014 [facility] [place] [facility] [address] [facility] [id number] [place] [address]- 6539 May, 2014 [facility] [place] [facility] [address] [facility] [id number] [place] [address]- 3553 May, 2014 [facility] [place] [facility] [address] [facility] [id number] [place] [address]- 2642 May, 2014 [facility] [place] [facility] [address] [facility] [id number] [place] [address]- 7171 May, 2014 [facility] [place] [facility] [address] [facility] [id number] [place] [address]- 1698 16 May, 2014 [facility] [place] [facility] [address] [facility] [id number] [place] [address]- 2545 May, 2014 [facility] [place] [facility] [address] [facility] [id number] [place] [address]- 3129 May, 2014 [facility] [place] [facility] [address] [facility] [id number] [place] [address]- 9992 May, 2014 [facility] [place] [facility] [address] [facility] [id number] [place] [address]- 7979 02 May, 2014 [facility] [place] [facility] [address] [id number] [place] [address]- 4519 May, [facility] [place] [facility] [address] [id number] [place] [address]- 0285 Apr, [facility] [place] [facility] [address] [id number] [place] [address]- 9146 Apr, [facility] [place] [facility] [address] [id number] [place] [address]- 4164 Apr, [facility] [place] [facility] [address] [id number] [place] [address]- 5052 Apr, [facility] [place] [facility] [address] [id number] [place] [address]- 5417 Apr, [facility] [place] [facility] [address] [id number] [place] [address]- 5322 Apr, [facility] [place] [facility] [address] [id number] [place] [address]- 6064 Apr, [facility] [place] [facility] [address] [id number] [place] [address]- 9246 Apr, [facility] [place] [facility] [address] [id number] [place] [address]- 8985 Mar[facility] [place] [facility] [address] [id number] [place] [address]- 4517 Mar, [facility] [place] [facility] [address] [id number] [place] [address]- 7586 Mar, [facility] [place] [facility] [address] [id number] [place] [address]- 6151 Mar, [facility] [place] [facility] [address] [id number] [place] [address]- 3797 Mar, [facility] [place] [facility] [address] [id number] [place] [address]- 1529 Mar, [facility] [place] [facility] [address] [id number] [place] [address]- 9465 Mar, [facility] [place] [facility] [address] [id number] [place] [address]- 5674 18 Mar, 2014 [facility] [place] [facility] [address] [id number] [place] [address]- 9616 Mar, [facility] [place] [facility] [address] [id number] [place] [address]- 4144 Mar, [facility] [place] [facility] [address] [id number] [place] [address]- 4758 Mar, [facility] [place] [facility] [address] [id number] [place] [address]- 3626 Mar, [facility] [place] [facility] [address] [id number] [place] [address]- 6856 Mar, [facility] [place] [facility] [address] [id number] [place] [address]- 1442 Mar, [facility] [place] [facility] [address] [id number] [place] [address]- 1431 Mar, [facility] [place] [facility] [address] [id number] [place] [address]- 1357 Mar, [facility] [place] [facility] [address] [id number] [place] [address]- 5567 Mar, [facility] [place] [facility] [address] [id number] [place] [address]- 5337 Mar, [facility] [place] [facility] [address] [id number] [place] [address]- 2266 Mar, [facility] [place] [facility] [address] [id number] [place] [address]- 0023 Mar, [facility] [place] [facility] [address] [id number] [place] [address]- 9158 Mar, [facility] [place] [facility] [address] [id number] [place] [address]- 3027 Mar, [facility] [place] [facility] [address] [id number] [place] [address]- 3537 Jan, [facility] [place] [facility] [address] [id number] [place] [address]- 0712 Jan, [facility] [place] [facility] [address] [id number] [place] [address]- 2935 Jan, [facility] [place] [facility] [address] [id number] [place] [address]- 0138 Jan, [facility] [place] [facility] [address] [id number] [place] [address]- 8122 Jan, [facility] [place] [facility] [address] [id number] [place] [address]- 4786 Jan, [facility] [place] [facility] [address] [id number] [place] [address]- 6704 Jan, [facility] [place] [facility] [address] [id number] [place] [address]- 5064 Jan, [facility] [place] [facility] [address] [id number] [place] [address]- 3791 Jan, [facility] [place] [facility] [address] [id number] [place] [address]- 4473 Jan, [facility] [place] [facility] [address] [id number] [place] [address]- 1744 Jan, [facility] [place] [facility] [address] [id number] [place] [address]- 0666 Jan, [facility] [place] [facility] [address] [id number] [address]- 2278 Jan, [facility] [place] [facility] [address] [id number] [place] [address]- 7607 Jan, [facility] [place] [facility] [address] [id number] [place] [address]- 6999 Jan, [facility] [place] [facility] [address] [id number] [address]- 9924 Jan, [facility] [place] [facility] [address] [id number] [place] [address]- 7773 Jan, [facility] [place] [facility] [address] [id number] [place] [address]- 8167 Jan, [facility] [place] [facility] [address] [id number] [place] [address] Jan, [facility] [place] [facility] [address] [id number] [place] [address]- 3631 Jan, [facility] [place] [facility] [address] [id number] [place] [address]- 3348 Dec, [facility] [place] [facility] [address] [id number] [place] [address]- 7816 Dec, [facility] [place] [facility] [address] [id number] [place] [address]- 5102 Dec, [facility] [place] [facility] [address] [id number] [place] [address]- 1081 Dec, [facility] [place] [facility] [address] [id number] [place] [address]- 9995 Dec, [facility] [place] [facility] [address] [id number] [place] [address]- 1446 Dec, [facility] [place] [facility] [address] [id number] [place] [address]- 7186 Dec, [facility] [place] [facility] [address] [id number] [place] [address]- 4634 Dec, [facility] [place] [facility] [address] [id number] [place] [address]- 7646 Dec, [facility] [place] [facility] [address] [id number] [place] [address]- 6512 Dec, [facility] [place] [facility] [address] [id number] [place] [address]- 0223 08 Dec, 2013 [facility] [place] [facility] [address] [id number] [place] [address]- 7488 Dec, [facility] [place] [facility] [address] [id number] [place] [address]- 7710 Dec, [facility] [place] [facility] [address] [id number] [place] [address]- 8393 Dec, [facility] [place] [facility] [address] [id number] [place] [address]- 3574 Dec, [facility] [place] [facility] [address] [id number] [place] [address]- 7737 22 Nov, 2013 [facility] [place] [facility] [address] [id number] [place] [address]- 9085 22 Nov, 2013 [facility] [place] [facility] [address] [id number] [place] [address]- 4451 19 Nov, 2013 [facility] [place] [facility] [address] [id number] [place] [address]- 2271 19 Nov, 2013 [facility] [place] [facility] [address] [id number] [place] [address]- 6402 13 Nov, 2013 [facility] [place] [facility] [address] [id number] [place] [address] 2540 13 Nov, 2013 [facility] [place] [facility] [address] [id number] [place] [address]- 2547 10 Nov, 2013 [facility] [place] [facility] [address] [id number] [place] [address]- 8204 10 Nov, 2013 [facility] [place] [facility] [address] [id number] [place] [address]- 1845 08 Sep, 2013 [facility] [place] [facility] [address] [id number] [place] [address]- 254 05 Sep, 2013 [facility] [place] [facility] [address] [id number] [place] [address]- 2544 05 Sep, 2013 [facility] [place] [facility] [address] [id number] [place] [address]- 2541 03 Sep, 2013 [facility] [place] [facility] [address] [id number] [place] [address]- 4399 Nov, [facility] [place] [facility] [address] [id number] [place] [address]- 4218 Oct, [facility] [place] [facility] [address] [id number] [place] [address]- 5461 Oct, [facility] [place] [facility] [address] [id number] [place] [address]- 0230 Oct, [facility] [place] [facility] [address] [id number] [place] [address]- 4826 Oct, [facility] [place] [facility] [address] [id number] [place] [address]- 9431 Oct, [facility] [place] [facility] [address] [id number] [place] [address]- 9178 Sep, [facility] [place] [facility] [address] [id number] [place] [address]- 0561 Sep, [facility] [place] [facility] [address] [id number] [place] [address]- 6865 Sep, [facility] [place] [facility] [address] [id number] [place] [address]- 9951 Sep, [facility] [place] [facility] [address] [id number] [place] [address]- 3210 Aug, [facility] [place] [facility] [address] [id number] [place] [address]- 6619 Aug, [facility] [place] [facility] [address] [id number] [place] [address]- 1003 Aug, [facility] [place] [facility] [address] [id number] [place] [address]- 3837 Aug, [facility] [place] [facility] [address] [id number] [place] [address]- 7087 Aug, [facility] [place] [facility] [address] [id number] [place] [address]- 2888 Aug, [facility] [place] [facility] [address] [id number] [place] [address]- 4032 Aug, [facility] [place] [facility] [address] [id number] [place] [address]- 7323 Aug, [facility] [place] [facility] [address] [id number] [place] [address]- 4922 Aug, [facility] [place] [facility] [address] [id number] [place] [address]- 6860 Aug, [facility] [place] [facility] [address] [id number] [place] [address]- 9771 Aug, [facility] [place] [facility] [address] [id number] [place] [address]- 8146 Aug, [facility] [place] [facility] [address] [id number] [place] [address]- 9286 Aug, [facility] [place] [facility] [address] [id number] [place] [address]- 0519 Aug, [facility] [place] [facility] [address] [id number] [place] [address]- 0713 Aug, [facility] [place] [facility] [address] [id number] [place] [address]- 1161 Aug, [facility] [place] [facility] [address] [id number] [address]- 6336 Aug, [facility] [place] [facility] [address] [id number] [place] [address]- 6306 Aug, [facility] [place] [facility] [address] [id number] [place] [address]- 2175 Aug, [facility] [place] [facility] [address] [id number] [place] [address]- 9474 Aug, [facility] [place] [facility] [address] [id number] [place] [address]- 5231 Aug, [facility] [place] [facility] [address] [id number] [place] [address]- 1490 Aug, [facility] [place] [facility] [address] [id number] [place] [address]- 6840 Aug, [facility] [place] [facility] [address] [id number] [place] [address]- 1512 Aug, [facility] [place] [facility] [address] [id number] [place] [address]- 7886 July, [facility] [place] [facility] [address] [id number] [place] [address]- 5660 July, [facility] [place] [facility] [address] [id number] [place] [address]- 9593 July, [facility] [place] [facility] [address] [id number] [place] [address]- 6929 July, [facility] [place] [facility] [address] [id number] [place] [address]- 4108 July, [facility] [place] [facility] [address] [id number] [place] [address]- 8849 July, [facility] [place] [facility] [address] [id number] [place] [address]- 2537 Jun, [facility] [place] [facility] [address] [id number] [place] [address]- 5412 Jun, [facility] [place] [facility] [address] [id number] [place] [address]- 3820 Jun, [facility] [place] [facility] [address] [id number] [place] [address]- 3813 Jun, [facility] [place] [facility] [address] [id number] [place] [address]- 4079 Jun, [facility] [place] [facility] [address] [id number] [place] [address]- 0985 Jun, [facility] [place] [facility] [address] [id number] [place] [address]- 6722 Jun, [facility] [place] [facility] [address] [id number] [place] [address]- 0993 Jun, [facility] [place] [facility] [address] [id number] [place] [address]- 4116 Jun, [facility] [place] [facility] [address] [id number] [place] [address]- 5686 Jun, [facility] [place] [facility] [address] [id number] [place] [address]- 9636 Jun, [facility] [place] [facility] [address] [id number] [place] [address]- 1759 Jun, [facility] [place] [facility] [address] [id number] [place] [address]- 8881 Jun, [facility] [place] [facility] [address] [id number] [place] [address]- 5222 Jun, [facility] [place] [facility] [address] [id number] [place] [address]- 2335 Jun, [facility] [place] [facility] [address] [id number] [place] [address]- 4552 May, [facility] [place] [facility] [address] [id number] [place] [address]- 2596 May, [facility] [place] [facility] [address] [id number] [place] [address]- 9050 May, [facility] [place] [facility] [address] [id number] [place] [address]- 8238 May, [facility] [place] [facility] [address] [id number] [place] [address]- 7603 May, [facility] [place] [facility] [address] [id number] [place] [address]- 7626 May, [facility] [place] [facility] [address] [id number] [place] [address]- 7956 May, [facility] [place] [facility] [address] [id number] [place] [address]- 4160 May, [facility] [place] [facility] [address] [id number] [place] [address]- 0949 May, [facility] [place] [facility] [address] [id number] [place] [address]- 4814 May, [facility] [place] [facility] [address] [id number] [place] [address]- 6103 May, [facility] [place] [facility] [address] [id number] [place] [address] May, [facility] [place] [facility] [address] [id number] [place] [address] May, [facility] [place] [facility] [address] [id number] [place] [address] May, [facility] [place] [facility] [address] [id number] [place] [address] May, [facility] [place] [facility] [address] [id number] [place] [address] May, [facility] [place] [facility] [address] [id number] [place] [address] May, [facility] [place] [facility] [address] [id number] [place] [address] Apr, [facility] [place] [facility] [address] [id number] [place] [address] Apr, [facility] [place] [facility] [address] [id number] [place] [address] Apr, [facility] [place] [facility] [address] [id number] [place] [address] Apr, [facility] [place] [facility] [address] [id number] [place] [address] Apr, [facility] [place] [facility] [address] [id number] [place] [address] Apr, [facility] [place] [facility] [address] [id number] [place] [address] 10 Apr, 2013 [facility] [address] [id number] [place] [address] Apr, [facility] [place] [facility] [address] [id number] [place] [address] Apr, [facility] [address] [id number] [place] [address] Apr, [facility] [address] [id number] [place] [address] Apr, [facility] [address] [id number] [place] [address] Apr, [facility] [address] [id number] [place] [address] Apr, [facility] [address] [id number] [place] [address] Apr, [facility] [address] [id number] [place] [address] Apr, [facility] [address] [id number] [place] [address]87 Apr, [facility] [address] [id number] [place] [address] Mar, [facility] [address] [id number] [place] [address] 1610 Mar, [facility] [address] [id number] [place] [address] Mar, [facility] [place] [facility] [address] [id number] [place] [address] Mar, [facility] [place] [facility] [address] [id number] [place] [address]- 8736 Mar, [facility] [place] [facility] [address] [id number] [place] [address] Mar, [facility] [address] [id number] [place] [address]70 18 Mar, 2013 [facility] [place] [facility] [address] [id number] [place] [address] Mar, [facility] [place] [facility] [address] [id number] [place] [address]- [address] Mar, [facility] [place] [facility] [address] [id number] [place] [address]- [address] Mar, [facility] [place] [facility] [address] [id number] [place] [address] Mar, [facility] [place] [facility] [address] [id number] [place] [address] 56[address] Mar, [facility] [place] [facility] [address] [id number] [place] [address]- [address]240 Mar, [facility] [place] [facility] [address] [id number] [place] [address] Mar, [facility] [place] [facility] [address] [id number] [place] [address] 1635 Mar, [facility] [place] [facility] [address] [id number] [place] [address]- [address]85 Mar, [facility] [place] [facility] [address] [id number] [place] [address]- 8749 Mar, [facility] [place] [facility] [address] [id number] [address] Mar, [facility] [place] [facility] [address] [id number] [place] [address] Jan, [facility] [place] [facility] [address] [id number] [place] [address]- [address] Jan, [facility] [place] [facility] [address] [id number] [place] [address] Jan, [facility] [place] [facility] [address] [id number] [place] [address] 269[address] Jan, [facility] [address] [id number] [place] [address] 27 Nov, 2012 [facility] [place] [facility] [address] [id number] [place] [address] 10 Nov, 2012 [facility] [place] [facility] [address] [id number] [place] [address]- [address]26 Nov, [facility] [place] [facility] [address] [id number] [place] [address]- 74[address] Nov, [facility] [place] [facility] [address] [id number] [place] [address]- 9566 Oct, [facility] [place] [facility] [address] [id number] [place] [address]- 69[address] Oct, [facility] [address] [id number] [place] [address]- [address] Oct, [facility] [place] [facility] [address] [id number] [place] [address]- 1628 Oct, [facility] [place] [facility] [address] [id number] [place] [address]- [address] Sep, [facility] [place] [facility] [address] [id number] [place] [address]- 1233 Sep, [facility] [place] [facility] [address] [id number] [place] [address]- 0935 Sep, [facility] [place] [facility] [address] [id number] [place] [address]- 9992 Sep, [facility] [place] [facility] [address] [id number] [place] [address]- 5173 Sep, [facility] [place] [facility] [address] [id number] [place] [address]- [address] Sep, [facility] [place] [facility] [address] [id number] [place] [address]- 7033 Sep, [facility] [place] [facility] [address] [id number] [place] [address]- 4890 Sep, [facility] [address] [id number] [place] [address]- 238[address] Sep, [facility] [place] [facility] [address] [id number] [place] [address]- [address]998 Aug, [facility] [place] [facility] [address] [id number] [place] [address]- [address] Aug, [facility] [place] [facility] [address] [id number] [place] [address]- [address]79 Aug, [facility] [place] [facility] [address] [id number] [place] [address]- 9188 Aug, [facility] [address] [id number] [place] [address]- [address] July, [facility] [address] [id number] [place] [address]- [address]367 July, [facility] [address] [id number] [place] [address]- 6[address] July, [facility] [address] [address] [id number] [place] [address] July, [facility] [address] [id number] [place] [address] July, [facility] [place] [facility] [address] [id number] [place] [address] July, [facility] [place] [facility] [address] [id number] [place] [address] July, [facility] [place] [facility] [address] [id number] [place] [address] Jun, [facility] [place] [facility] [address] [id number] [place] [address] May, [facility] [place] [facility] [address] [id number] [place] [address] May, [facility] [address] [facility] [id number] [place] [address] May, [facility] [address] [facility] [id number] [place] [address] May, [facility] [address] [facility] [id number] [place] [address] May, [facility] [address] [facility] [id number] [place] [address] May, [facility] [address] [facility] [id number] [place] [address] May, [facility] [address] [facility] [facility] [id number] [place] [address] May, IMMUNIZATIONS No Known Immunizations SOCIAL HISTORY Never Assessed REASON FOR VISIT [facility] [place] CARE VITAL SIGNS MEDICATIONS Unknown [...] 03/2015 Hospitalization History Pneumonia 04/2015 [facility] - un[facility] 11/2017 [facility]ization History [facility]- one week 03/2018 Hospitalization History [facility] 03/10-03/12/2019 Hospitalization History [facility] 05/2018
--- OUTSIDE RECORDS SUMMARY | 2018-07-14 17:52 | XMS REPORT ---
Author Author Migration, Doctor Organization [facility] Address Unknown Phone Unavailable Care Team Providers Care Lead Software Qa Engineer Name Role Phone Migration, Doctor Unavailable Unavailable PROBLEMS Type Condition ICD9-CM Code EWZ49-NH Code Onset Dates Condition Status SNOMED Code Problem Cellulitis of right lower extremity L03.115 Active 617600734 Problem Neuropathy G62.9 Active 236301944 Problem Renal failure N19 Active 52431936 Problem Intra-dialytic hypotension I95.3 Active 342088338 Problem Amput below knee, unilat S88.119A Active 91299796 Problem Seasonal allergic rhinitis due to other allergic trigger J30.89 Active 098826497 Problem Chronic congestive heart failure, unspecified congestive heart failure type I50.9 Active 04987845 Problem Other chronic pain G89.29 Active 46532195 Problem 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 Active 2289840 Problem Primary insomnia F51.01 Active 6262536 Problem Paroxysmal atrial fibrillation I48.0 Active 150444199 Problem Angina pectoris I20.9 Active 018606032 Problem Type 2 diabetes mellitus with hyperglycemia, unspecified whether prison insulin use E11.65 Active 234159473030552 Problem Chronic congestive heart failure, unspecified heart failure type I50.9 Active 73128849 Problem Self-care deficit for toileting R46.0 Active 133328483 Problem Bronchitis J40 Active 87066390 Problem Observed sleep apnea G47.30 Active 84202901 Problem Unsteady gait R26.81 Active 159326098 ALLERGIES No Information ENCOUNTERS Encounter Location Date Diagnosis [facility] [address] [facility] [id number] [address] May, [place] [address] [address] May, Diabetes type 2, controlled E11.9 [place] [address] [place] [id number] [address] May, [place] [id number] [address] 500[address] 08 May, 2018 Pressure injury of coccygeal region, stage 2 L89.152 ; Nausea R11.0 ; Chronic congestive heart failure, unspecified congestive heart failure type I50.9 ; Observed sleep apnea G47.30 and Morbid obesity E66.01 [facility] [address] [address] May, [facility] [id number] [place] [address] 13524- 9466 May, [facility] [id number] [place] [address] 53415- 9282 May, [facility] [id number] [place] [address] 79042- 4660 May, [facility] [id number] [place] [address] 99346- 8226 May, [facility] [id number] [place] [address] 81603- 0207 18 May, 2018 Renal failure N19 [facility] [id number] [place] [address] 82934- 7901 14 May, 2018 [facility] [id number] [place] [address] 80675- 7752 13 May, 2018 Neuropathy G62.9 and Renal failure N19 [facility] [id number] [place] [address] 07517- 3607 08 May, 2018 [facility] [address] [place] [address] 96246- 2956 07 May, 2018 [facility] [id number] [place] [address] 38883- 5966 04 May, 2018 [facility] [address] [place] [address] 85287- 8402 Apr, [facility] [id number] [place] [address] 82478- 0349 Apr, [facility] [id number] [place] [address] 86943- 6321 Apr, [facility] [id number] [place] [address] 12612- 0728 Mar, Diabetes type 2, controlled E11.9 [facility] [address] [address]45- 6393 Mar, Paroxysmal atrial fibrillation I48.0 ; Observed sleep apnea G47.30 ; Unsteady gait R26.81 and Bilious vomiting with nausea R11.14 [facility] [address] 04909- 8570 Mar, [facility] [address] 67192- 0488 Mar, [facility] [address] 73063- 5896 Mar, [facility] [id number] [place] [address] 32904- 1491 Mar, [facility] [address] [id number] [place] [address] 36725- 9762 Mar, Diabetes type 2, controlled E11.9 ; BMI 50.0-59.9, adult Z68.43 ; Bronchitis J40 and Other chronic pain G89.29 [facility] [address] [address] [id number] [place] [address] 04739- 4206 Mar, [facility] [address] [id number] [place] [address] 19075- 9428 Mar, [facility] [address] [id number] [place] [address] 55613- 8224 Jan, [facility] [address] [address] [id number] [place] [address] 94915- 5221 Jan, [facility] [id number] [place] [address] 44235- 5085 Dec, [facility] [address] [address]- 9195 Dec, [facility] [id number] [place] [address] 34979- 7118 Dec, [facility] [id number] [place] [address] 60017- 8191 Nov, Pneumonia due to infectious organism, unspecified laterality , unspecified part of lung J18.9 and Self-care deficit for toileting R46.0 [facility] [id number] [place] [address] 50522- 9199 Nov, [facility] [address] [address] [id number] [place] [address] 83456- 6421 Oct, Diabetes type 2, controlled E11.9 ; Primary insomnia F51.01 and Bilateral headaches R51 [facility] [address] [place] [id number] [place] [address] 02915- 2163 Oct, [facility] [id number] [place] [address] 31046- 1346 Sep, [facility] [address] [place] [id number] [place] [address] [id number] Sep, Dental examination Z01.20 and Dental caries K02.9 [facility] [address] [place] [address] 78930- 3821 Sep, [facility] [address] [id number] [place] [address] 60027- 7720 Sep, [facility] [address] [place] [address] 48625- 2268 Sep, Other chronic pain G89.29 and Pain in right knee M25.561 [facility] [address] [id number] [place] [address] 79780- 9496 Sep, [facility] [id number] [place] [address] 06835- 3157 Aug, [facility] [address] [facility] [id number] [address] 4408 Aug, 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 [facility] [address] [facility] [id number] [address] 8104 15 Aug, 2017 [facility] [address] [facility] [id number] [address]- 7807 11 Aug, 2017 Diabetes type 2, controlled E11.9 and Acute pain of right knee M25.561 [facility] [address] [facility] [id number] [address] 3681 09 Aug, 2017 [facility] [address] [facility] [id number] [place] [address] 87686- 8352 July, [facility] [address] [address]- 0651 16 Jun, 2017 [facility] [address] [address]- 8068 Jun, [facility] [address] [address]- 4486 10 Jun, 2017 Diabetes type 2, controlled E11.9 [facility] [address] [address]- 1716 Jun, [facility] [address] [place] [id number] [address]- 3633 May, [facility] [address] [address]- 3833 May, [facility] [address] [place] [id number] [address]- 5119 May, [facility] [address] [address]- 4217 May, Chronic congestive heart failure, unspecified congestive heart failure type I50.9 [facility] [address] [address]- 9731 May, Diabetes type 2, controlled E11.9 ; BMI 50.0-59.9, adult Z68.43 ; Chronic congestive heart failure, unspecified heart failure type I50.9 ; Angina pectoris I20.9 ; Seasonal allergic rhinitis due to other allergic trigger J30.89 and Renal failure N19 [facility] [address] [address] May, [facility] [address] [place] [id number] [place] [address] 78077- 6270 May, [facility] [address] [place] [id number] [place] [address] 72574- 4059 May, [facility] [address] [place] [id number] [place] [address] 74271- 6960 May, [facility] [address] [place] [id number] [place] [address] 33409- 3142 May, [facility] [address] [place] [id number] [place] [address] 73479- 0310 Apr, BMI 50.0-59.9, adult Z68.43 [facility] [address] [place] [id number] [place] [address] 44701- 2834 Apr, BMI 50.0-59.9, adult Z68.43 ; Post-procedural fever R50.82 and Bronchitis J40 [facility] [address] [place] [address] 51908- 9228 Apr, Chronic congestive heart failure, unspecified congestive heart failure type I50.9 [facility] [address] [place] [address] [id number] [place] [address] 15799- 8669 Jan, [facility] [address] [place] [id number] [place] [address] 54650- 8280 Jan, Diabetes type 2, controlled E11.9 [facility] [address] [place] [id number] [place] [address] 17776- 7593 Jan, Neuropathy G62.9 [facility] [address] [place] [address] [place] [address]- 2964 16 Jan, 2017 [facility] [address] [facility] [id number] [place] [address]- 8306 Jan, [facility] [address] [facility] [id number] [place] [address]- 2678 Jan, [facility] [address] [facility] [id number] [place] [address]- 0786 Jan, [facility] [address] [facility] [id number] [place] [address]- 7452 Jan, [facility] [address] [place] [id number] [place] [address]- 4166 Dec, [facility] [address] [facility] [id number] [place] [address]- 5367 Dec, [facility] [address] [address]- 5727 Dec, Diabetes type 2, controlled E11.9 [facility] [address] [place] [id number] [place] [address]- 7467 Dec, [facility] [address] [address]- 1520 Dec, [facility] [address] [address]- 2594 Dec, Chronic congestive heart failure, unspecified congestive heart failure type I50.9 [facility] [address] [place] [address] [id number] [address]- 2198 Dec, [facility] [address] [facility] [id number] [address]- 4512 Dec, [facility] [address] [place] [id number] [address]- 3850 Nov, Chronic congestive heart failure, unspecified congestive heart failure type I50.9 [facility] [address] [place] [id number] [address]- 7245 Nov, Chronic congestive heart failure, unspecified congestive heart failure type I50.9 [facility] [address] [facility] [id number] [address]- 7519 Nov, [facility] [address] [address]- 0705 Oct, [facility] [address] [address]- 4971 Oct, [facility] [address] [place] [address] 77294- 3540 Oct, Chronic congestive heart failure, unspecified congestive heart failure type I50.9 [facility] [address] [place] [address] 40087- 9432 Oct, [facility] [address] [address]- 9714 Oct, Pneumonia of both lungs due to infectious organism, unspecified part of lung J18.9 [facility] [address] [address]- 3430 Oct, [facility] [address] [address]- 1234 Oct, Diabetes type 2, controlled E11.9 [facility] [address] [address]- 3791 Oct, Diabetes type 2, controlled E11.9 [facility] [address] [address]- 8697 Sep, [facility] [address] [address]- 5492 Sep, Neuropathy G62.9 [facility] [address] [address]- 4119 Aug, Intra-dialytic hypotension I95.3 [facility] [address] [address]- 8524 July, [facility] [address] [id number] [place] [address] 2546 July, [facility] [address] [facility] [id number] [place] [address] 2546 July, [facility] [address] [place] [address] 2546 July, Amput below knee, unilat S88.119A [facility] [address] [facility] [id number] [place] [address] 2546 May, [facility] [address] [facility] [id number] [place] [address] 2546 May, Neuropathy G62.9 [facility] [address] [place] [address] 2546 May, [facility] [address] [place] [address] 2546 May, [facility] [address] [place] [address] 2546 May, [facility] [address] [place] [address]- 6536 May, [facility] [address] [place] [address] 2546 May, Neuropathy G62.9 [facility] [address] [place] [address] 2546 Apr, [facility] [address] [facility] [id number] [place] [address] 2546 Apr, [facility] [address] [place] [address]- 3903 Apr, Diabetes type 2, controlled E11.9 and Renal failure N19 [facility] [address] [facility] [id number] [place] [address] 2546 Apr, [facility] [address] [place] [address]- 2635 Apr, [facility] [address] [place] [address]- 7693 Mar, [facility] [address] [place] [address]- 1170 Mar, [facility] [id number] [place] [address] 00146- 5103 Mar, [facility] [id number] [place] [address], [place] [address]- 0765 Mar, [facility] [id number] [place] [address], [place] [address]- 5758 Mar, [facility] [id number] [place] [address], [place] [address]- 6843 Jan, Localized edema R60.0 [facility] [id number] [place] [address] 17570- 6631 Jan, [facility] [address] [address]- 0118 Jan, [facility] [id number] [place] [address] 36893- 9451 Jan, [facility] [address] [address]- 4577 Jan, [facility] [address] [address]- 2454 Jan, [facility] [address] [address]- 2222 Jan, [facility] [id number] [place] [address] 22516- 3295 Dec, Diabetes type 2, controlled E11.9 and Chronic nonintractable headache, unspecified headache type R51 [facility] [address] [address]- 2075 Dec, [facility] [place] [address] [address]- 0667 Dec, [facility] [id number] [place] [address] 10583- 4360 Nov, [facility] [address] [address]- 5116 Nov, [facility] [address] [place] [address] 53755- 6190 Oct, [facility] [address] [address]- 4742 Oct, Migraine without status migrainosus, not intractable, unspecified migraine type G43.909 [facility] [address] [address]- 8336 Oct, [facility] [address] [place] [address] 21028- 3329 Sep, Amput below knee, unilat S88.119A and Neuropathy G62.9 [facility] [address] [address]- 3512 Sep, [facility] [address] [place] [address] 59328- 5328 Sep, [facility] [address] [address]- 3541 Sep, [facility] [address] [address]- 6735 Aug, [facility] [address] [address]- 9344 Aug, [facility] [address] [place] [address] 76275- 9004 Aug, Diabetes type 2, controlled E11.9 [facility] [address] [address]- 1805 Aug, [facility] [id number] [address]- 9637 Jun, Diabetes type 2, controlled E11.9 and Neuropathy G62.9 [facility] [address] [facility] [id number] [place] [address]- 9046 14 Jul, 2015 [facility] [address] [facility] [id number] [place] [address]- 7822 Jun, [facility] [address] [facility] [id number] [place] [address]- 4261 Jun, [facility] [address] [facility] [id number] [place] [address]- 6931 Jun, [facility] [address] [facility] [id number] [place] [address]- 2872 May, [facility] [address] [place] [address]- 9986 May, Diabetes type 2, controlled E11.9 [facility] [address] [place] [address]- 5366 May, [facility] [address] [address]- 1669 May, [facility] [address] [address]- 2756 May, [facility] [address] [address]- 1685 May, [facility] [address] [address]- 5322 17 May, 2015 [facility] [address] [address]- 6219 16 May, 2015 [facility] [address] [address]- 1251 16 May, 2015 [facility] [address] [address]- 9574 15 May, 2015 COPD (chronic obstructive pulmonary disease) J44.9 [facility] [id number] [place] [address]- 9275 15 May, 2015 [facility] [address] [address]- 6820 May, [facility] [address] [place] [address]- 4253 May, [facility] [address] [address]- 4867 May, [facility] [address] [place] [address]- 8460 May, [facility] [address] [address]- 6912 May, Renal failure N19 and Pneumonia, organism unspecified, unspecified laterality, unspecified part of lung J18.9 [facility] [address] [address]- 9983 Apr, [facility] [address] [address]- 9754 Apr, [facility] [address] [address]- 9214 Apr, [facility] [address] [id number] [address]- 6925 Apr, Diabetes mellitus 250.00 [facility] [address] [address]- 6490 Apr, [facility] [address] [id number] [address]- 8656 Apr, [facility] [address] [address]- 3992 Apr, [facility] [address] [id number] [address]- 5166 Apr, [facility] [address] [place] [address]- 9664 31 Mar, 2015 [facility] [place] [facility] [address] [id number] [place] [address]- 1063 28 Mar, 2015 [facility] [place] [facility] [address] [id number] [place] 9940 23 Mar, 2015 [facility] [place] [facility] [address] [id number] [place] [address]- 4591 16 Mar, 2014 Renal failure N19 [facility] [place] [facility] [address] [id number] [place] 14 Mar, 2015 [facility] [place] [facility] [address] [id number] [place] [address] 07 Mar, 2015 [facility] [place] [facility] [address] [facility] [id number] [place] [address] 04 Mar, 2015 [facility] [place] [facility] [address] [id number] [place] [address] 24 Jan, 2015 [facility] [place] [facility] [address] [id number] [place] [address] 18 Jan, 2015 [facility] [place] [facility] [address] [facility] [id number] [place] [address] 17 Jan, 2015 [facility] [place] [facility] [address] [facility] [id number] [place] [address] Jan, [facility] [place] [facility] [address] [facility] [id number] [place] [address] Dec, [facility] [place] [facility] [address] [id number] [place] Dec, [facility] [place] [facility] [address] [id number] [place] [address] Dec, [facility] [place] [facility] [address] [facility] [id number] [place] [address] Nov, [facility] [place] [facility] [address] [facility] [id number] [place] [address] Nov, [facility] [address] [facility] [id number] [place] [address] Nov, [facility] [address] [facility] [id number] [place] [address] Oct, [facility] [address] [facility] [id number] [place] [address] Oct, [facility] [address] [facility] [id number] [place] [address] Oct, Renal failure 586 and Obesity 278.00 [facility] [address] [facility] [id number] [place] [address] Oct, [facility] [id number] [place] [address] Oct, [facility] [id number] [place] [address], [place] [address] Oct, [facility] [id number] [place] [address] Sep, [facility] [id number] [place] [address] Sep, [facility] [id number] [place] [address] Sep, Diabetes mellitus 250.00 and Congestive heart failure, unspecified 428.0 [facility] [id number] [address] Aug, [facility] [address] [id number] [address] Aug, [facility] [id number] [place] [address] Aug, [facility] [address] [facility] [id number] [address] July, [facility] [id number] [address] July, [facility] [address] [id number] [place] [address] July, Heart murmur, systolic 785.2 [facility] [address] [id number] [place] [address] 280[address] July, [facility] [address] [id number] [place] [address] July, [facility] [address] [id number] [place] [address] Jun, [facility] [address] [id number] [place] [address] 2414 Jun, [facility] [address] [id number] [place] [address] 0630 May, [facility] [address] [id number] [place] [address]- 9[address] May, [facility] [address] [id number] [place] [address]- 8[address] May, [facility] [address] [id number] [place] [address]- 3466 May, [facility] [address] [id number] [place] [address]- 1181 May, [facility] [address] [id number] [place] [address]- [address]27 16 May, 2014 [facility] [address] [id number] [place] [address]- 3716 May, [facility] [address] [id number] [place] [address]- 8716 May, [facility] [address] [id number] [place] [address]- 1843 May, [facility] [address] [id number] [place] [address]- 6481 May, [facility] [place] [facility] [address] [id number] [place] [address]- 1062 May, 2014 [facility] [place] [facility] [address] [id number] [place] [address]- 0146 May, 2014 [facility] [place] [facility] [address] [facility] [id number] [place] [address]- 51[address] May, 2014 [facility] [place] [facility] [address] [facility] [id number] [place] [address]- 3835 May, 2014 [facility] [place] [facility] [address] [id number] [place] [address]- 1996 May, 2014 [facility] [place] [facility] [address] [facility] [id number] [place] [address]- 0831 May, 2014 [facility] [place] [facility] [address] [facility] [id number] [place] [address]- 4310 May, 2014 [facility] [place] [facility] [address] [facility] [id number] [place] [address]- 3957 May, 2014 [facility] [place] [facility] [address] [facility] [id number] [place] [address]- 6280 May, 2014 [facility] [place] [facility] [address] [facility] [id number] [place] [address]- 6658 May, 2014 [facility] [place] [facility] [address] [facility] [id number] [place] [address]- 5357 16 May, 2014 [facility] [place] [facility] [address] [facility] [id number] [place] [address]- 2544 May, 2014 [facility] [place] [facility] [address] [facility] [id number] [place] [address]- 0136 May, 2014 [facility] [place] [facility] [address] [facility] [id number] [place] [address]- 7471 May, 2014 [facility] [place] [facility] [address] [facility] [id number] [place] [address]- 5[address] 02 May, 2014 [facility] [place] [facility] [address] [id number] [place] [address]- 5906 May, [facility] [place] [facility] [address] [id number] [place] [address]- 2682 Apr, [facility] [place] [facility] [address] [id number] [place] [address]- 1386 Apr, [facility] [place] [facility] [address] [id number] [place] [address]- 6762 Apr, [facility] [place] [facility] [address] [id number] [place] [address]- 4266 Apr, [facility] [place] [facility] [address] [id number] [place] [address]- 4354 Apr, [facility] [place] [facility] [address] [id number] [place] [address]- 0747 Apr, [facility] [place] [facility] [address] [id number] [place] [address]- 7757 Apr, [facility] [place] [facility] [address] [id number] [place] [address]- 5808 Apr, [facility] [place] [facility] [address] [id number] [place] [address]- 5005 Mar, [facility] [place] [facility] [address] [id number] [place] [address]- 7852 Mar, [facility] [place] [facility] [address] [id number] [place] [address]- 8245 Mar, [facility] [place] [facility] [address] [id number] [place] [address]- 0498 Mar, [facility] [place] [facility] [address] [id number] [place] [address]- 1931 Mar, [facility] [place] [facility] [address] [id number] [place] [address]- 0465 Mar, [facility] [place] [facility] [address] [id number] [place] [address]- 4677 Mar, [facility] [place] [facility] [address] [id number] [place] [address]- 8991 18 Mar, 2014 [facility] [place] [facility] [address] [id number] [place] [address]- 5833 Mar, [facility] [place] [facility] [address] [id number] [place] [address]- 9773 Mar, [facility] [place] [facility] [address] [id number] [place] [address]- 1677 Mar, [facility] [place] [facility] [address] [id number] [place] [address]- 4781 Mar, [facility] [place] [facility] [address] [id number] [place] [address]- 3202 Mar, [facility] [place] [facility] [address] [id number] [place] [address]- 5409 Mar, [facility] [place] [facility] [address] [id number] [place] [address]- 9321 Mar, [facility] [place] [facility] [address] [id number] [place] [address]- 8681 Mar, [facility] [place] [facility] [address] [id number] [place] [address]- 6189 Mar, [facility] [place] [facility] [address] [id number] [place] [address]- 9895 Mar, [facility] [place] [facility] [address] [id number] [place] [address]- 1221 Mar, [facility] [place] [facility] [address] [id number] [place] [address]- 5714 Mar, [facility] [place] [facility] [address] [id number] [place] [address]- 4306 Mar, [facility] [place] [facility] [address] [id number] [place] [address]- 3531 Mar, [facility] [place] [facility] [address] [id number] [place] [address]- 5606 Jan, [facility] [place] [facility] [address] [id number] [place] [address]- 4225 Jan, [facility] [place] [facility] [address] [id number] [place] [address]- 0046 Jan, [facility] [place] [facility] [address] [id number] [place] [address]- 8564 Jan, [facility] [place] [facility] [address] [id number] [place] [address]- 9502 Jan, [facility] [place] [facility] [address] [id number] [place] [address]- 1983 Jan, [facility] [place] [facility] [address] [id number] [place] [address]- 6946 Jan, [facility] [place] [facility] [address] [id number] [place] [address]- 6800 Jan, [facility] [place] [facility] [address] [id number] [place] [address]- 5224 Jan, [facility] [place] [facility] [address] [id number] [place] [address]- 4606 Jan, [facility] [place] [facility] [address] [id number] [place] [address]- 2483 Jan, [facility] [place] [facility] [address] [id number] [place] [address]- 9555 Jan, [facility] [place] [facility] [address] [id number] [address]- 2183 Jan, [facility] [place] [facility] [address] [id number] [place] [address]- 7783 Jan, [facility] [place] [facility] [address] [id number] [place] [address]- 9340 Jan, [facility] [place] [facility] [address] [id number] [place] [address]- 5649 Jan, [facility] [place] [facility] [address] [id number] [place] [address]- 2512 Jan, [facility] [place] [facility] [address] [id number] [place] [address]- 2870 Jan, [facility] [place] [facility] [address] [id number] [place] 2309 Jan, [facility] [place] [facility] [address] [id number] [place] [address]- 5142 Jan, [facility] [place] [facility] [address] [id number] [place] [address]- 2502 Dec, [facility] [place] [facility] [address] [id number] [place] [address]- 3619 Dec, [facility] [place] [facility] [address] [id number] [place] [address]- 0642 Dec, [facility] [place] [facility] [address] [id number] [place] [address]- 1542 Dec, [facility] [place] [facility] [address] [id number] [place] [address]- 9730 Dec, [facility] [place] [facility] [address] [id number] [place] [address]- 7709 Dec, [facility] [place] [facility] [address] [id number] [place] [address]- 7283 Dec, [facility] [place] [facility] [address] [id number] [place] [address]- 5098 Dec, [facility] [place] [facility] [address] [id number] [place] [address]- 3905 Dec, [facility] [place] [facility] [address] [id number] [place] [address]- 8902 Dec, [facility] [place] [facility] [address] [id number] [place] [address]- 6091 08 Dec, 2013 [facility] [place] [facility] [address] [id number] [place] [address]- 3877 Dec, [facility] [place] [facility] [address] [id number] [place] [address]- 3879 Dec, [facility] [place] [facility] [address] [id number] [place] [address]- 3496 Dec, [facility] [place] [facility] [address] [id number] [place] [address]- 1885 Dec, [facility] [place] [facility] [address] [id number] [place] [address]- 3919 22 Nov, 2013 [facility] [place] [facility] [address] [id number] [place] [address]- 6329 22 Nov, 2013 [facility] [place] [facility] [address] [id number] [place] [address]- 7939 19 Nov, 2013 [facility] [place] [facility] [address] [id number] [place] [address]- 5560 19 Nov, 2013 [facility] [place] [facility] [address] [id number] [place] [address]- 0338 13 Nov, 2013 [facility] [place] [facility] [address] [id number] [place] [address] 254 13 Nov, 2013 [facility] [place] [facility] [address] [id number] [place] [address]- 2540 10 Nov, 2013 [facility] [place] [facility] [address] [id number] [place] [address]- 9212 10 Nov, 2013 [facility] [place] [facility] [address] [id number] [place] [address]- 6887 08 Sep, 2013 [facility] [place] [facility] [address] [id number] [place] [address]- 2544 05 Sep, 2013 [facility] [place] [facility] [address] [id number] [place] [address]- 2542 05 Sep, 2013 [facility] [place] [facility] [address] [id number] [place] [address]- 2549 03 Sep, 2013 [facility] [place] [facility] [address] [id number] [place] [address]- 0533 Nov, [facility] [place] [facility] [address] [id number] [place] [address]- 8699 Oct, [facility] [place] [facility] [address] [id number] [place] [address]- 6775 Oct, [facility] [place] [facility] [address] [id number] [place] [address]- 6402 Oct, [facility] [place] [facility] [address] [id number] [place] [address]- 2169 Oct, [facility] [place] [facility] [address] [id number] [place] [address]- 7502 Oct, [facility] [place] [facility] [address] [id number] [place] [address]- 6306 Sep, [facility] [place] [facility] [address] [id number] [place] [address]- 9976 Sep, [facility] [place] [facility] [address] [id number] [place] [address]- 5616 Sep, [facility] [place] [facility] [address] [id number] [place] [address]- 5329 Sep, [facility] [place] [facility] [address] [id number] [place] [address]- 3898 Aug, [facility] [place] [facility] [address] [id number] [place] [address]- 1994 Aug, [facility] [place] [facility] [address] [id number] [place] [address]- 5059 Aug, [facility] [place] [facility] [address] [id number] [place] [address]- 6600 Aug, [facility] [place] [facility] [address] [id number] [place] [address]- 5067 Aug, [facility] [place] [facility] [address] [id number] [place] [address]- 2223 Aug, [facility] [place] [facility] [address] [id number] [place] [address]- 0169 Aug, [facility] [place] [facility] [address] [id number] [place] [address]- 2501 Aug, [facility] [place] [facility] [address] [id number] [place] [address]- 8632 Aug, [facility] [place] [facility] [address] [id number] [place] [address]- 5031 Aug, [facility] [place] [facility] [address] [id number] [place] [address]- 3762 Aug, [facility] [place] [facility] [address] [id number] [place] [address]- 8076 Aug, [facility] [place] [facility] [address] [id number] [place] [address]- 6165 Aug, [facility] [place] [facility] [address] [id number] [place] [address]- 0941 Aug, [facility] [place] [facility] [address] [id number] [place] [address]- 6866 Aug, [facility] [place] [facility] [address] [id number] [place] [address]- 7781 Aug, [facility] [place] [facility] [address] [id number] [address]- 9702 Aug, [facility] [place] [facility] [address] [id number] [place] [address]- 1153 Aug, [facility] [place] [facility] [address] [id number] [place] [address]- 1363 Aug, [facility] [place] [facility] [address] [id number] [place] [address]- 6690 Aug, [facility] [place] [facility] [address] [id number] [address]- 1844 Aug, [facility] [place] [facility] [address] [id number] [place] [address]- 3349 Aug, [facility] [place] [facility] [address] [id number] [place] [address]- 4985 Aug, [facility] [place] [facility] [address] [id number] [place] [address]- 5348 Aug, [facility] [place] [facility] [address] [id number] [place] [address]- 4872 July, [facility] [place] [facility] [address] [id number] [place] [address]- 1041 July, [facility] [place] [facility] [address] [id number] [place] [address]- 0189 July, [facility] [place] [facility] [address] [id number] [place] [address]- 9074 July, [facility] [place] [facility] [address] [id number] [place] [address]- 9798 July, [facility] [place] [facility] [address] [id number] [place] [address]- 1053 July, [facility] [place] [facility] [address] [id number] [place] [address]- 8509 Jun, [facility] [place] [facility] [address] [id number] [place] [address]- 9033 Jun, [facility] [place] [facility] [address] [id number] [place] [address]- 3053 Jun, [facility] [place] [facility] [address] [id number] [place] [address]- 7172 Jun, [facility] [place] [facility] [address] [id number] [place] [address]- 6020 Jun, [facility] [place] [facility] [address] [id number] [place] [address]- 7502 Jun, [facility] [place] [facility] [address] [id number] [place] [address]- 3502 Jun, [facility] [place] [facility] [address] [id number] [place] [address]- 0935 Jun, [facility] [place] [facility] [address] [id number] [place] [address]- 0486 Jun, [facility] [place] [facility] [address] [id number] [place] [address]- 2086 Jun, [facility] [place] [facility] [address] [id number] [place] [address]- 9416 Jun, [facility] [place] [facility] [address] [id number] [place] [address]- 0623 Jun, [facility] [place] [facility] [address] [id number] [place] [address]- 2028 Jun, [facility] [place] [facility] [address] [id number] [place] [address]- 8383 Jun, [facility] [place] [facility] [address] [id number] [place] [address]- 7517 Jun, [facility] [place] [facility] [address] [id number] [place] [address]- 7712 May, [facility] [place] [facility] [address] [id number] [place] [address]- 7393 May, [facility] [place] [facility] [address] [id number] [place] [address]- 1258 May, [facility] [place] [facility] [address] [id number] [place] [address]- 3833 May, [facility] [place] [facility] [address] [id number] [place] [address]- 6124 May, [facility] [place] [facility] [address] [id number] [place] [address]- 5966 May, [facility] [place] [facility] [address] [id number] [place] [address]- 9766 May, [facility] [place] [facility] [address] [id number] [place] [address]- 7053 May, [facility] [place] [facility] [address] [id number] [place] [address]- 4648 May, [facility] [place] [facility] [address] [id number] [place] [address]- 6327 May, [facility] [place] [facility] [address] [id number] [place] [address]- 0063 May, [facility] [place] [facility] [address] [id number] [place] [address]- 4567 May, [facility] [place] [facility] [address] [id number] [place] [address]- 7604 May, [facility] [place] [facility] [address] [id number] [place] [address]- 4151 May, [facility] [place] [facility] [address] [id number] [place] [address]- 1727 May, [facility] [place] [facility] [address] [id number] [place] [address]- 0925 May, [facility] [place] [facility] [address] [id number] [place] [address]- 7820 May, [facility] [place] [facility] [address] [id number] [place] [address] Apr, [facility] [place] [facility] [address] [id number] [place] [address]74 Apr, [facility] [place] [facility] [address] [id number] [place] [address] Apr, [facility] [place] [facility] [address] [id number] [place] [address] Apr, [facility] [place] [facility] [address] [id number] [place] [address]60 Apr, [facility] [place] [facility] [address] [id number] [place] [address] Apr, [facility] [place] [facility] [address] [id number] [place] [address] 10 Apr, 2013 [facility] [address] [id number] [place] [address] Apr, [facility] [place] [facility] [address] [id number] [place] [address] 8783 Apr, [facility] [address] [id number] [place] [address] Apr, [facility] [address] [id number] [place] [address] Apr, [facility] [address] [id number] [place] [address]95 Apr, [facility] [address] [id number] [place] [address] Apr, [facility] [address] [id number] [place] [address]- 269[address] Apr, [facility] [address] [id number] [place] [address]- 8521 Apr, [facility] [address] [id number] [place] [address] Apr, [facility] [address] [id number] [place] [address] Mar, [facility] [address] [id number] [place] [address] 6068 Mar, [facility] [address] [id number] [place] [address]- [address] Mar, [facility] [place] [facility] [address] [id number] [place] [address] Mar, [facility] [place] [facility] [address] [id number] [place] [address]- 0986 Mar, [facility] [place] [facility] [address] [id number] [place] [address] Mar, [facility] [address] [id number] [place] [address]- 8586 18 Mar, 2013 [facility] [place] [facility] [address] [id number] [place] [address]- [address] Mar, [facility] [place] [facility] [address] [id number] [place] [address]- 4796 Mar, [facility] [place] [facility] [address] [id number] [place] [address]- 9789 Mar, [facility] [place] [facility] [address] [id number] [place] [address]25 Mar, [facility] [place] [facility] [address] [id number] [place] [address] 49[address] Mar, [facility] [place] [facility] [address] [id number] [place] [address]- 6190 Mar, [facility] [place] [facility] [address] [id number] [place] [address]- 5344 Mar, [facility] [place] [facility] [address] [id number] [place] [address]- 6419 Mar, [facility] [place] [facility] [address] [id number] [place] [address]- 8861 Mar, [facility] [place] [facility] [address] [id number] [place] [address] 6319 Mar, [facility] [place] [facility] [address] [id number] [address] Mar, [facility] [place] [facility] [address] [id number] [place] [address] 9256 Jan, [facility] [place] [facility] [address] [id number] [place] [address]- 3566 Jan, [facility] [place] [facility] [address] [id number] [place] [address]- 1296 Jan, [facility] [place] [facility] [address] [id number] [place] [address]- [address] Jan, [facility] [address] [id number] [place] [address]- [address]106 27 Nov, 2012 [facility] [place] [facility] [address] [id number] [place] [address]- 2747 10 Nov, 2012 [facility] [place] [facility] [address] [id number] [place] [address]- [address]956 Nov, [facility] [place] [facility] [address] [id number] [place] [address]- 1768 Nov, [facility] [place] [facility] [address] [id number] [place] [address]- [address] Oct, [facility] [place] [facility] [address] [id number] [place] [address]- 6760 Oct, [facility] [address] [id number] [place] [address]- 0730 Oct, [facility] [place] [facility] [address] [id number] [place] [address]- 3033 Oct, [facility] [place] [facility] [address] [id number] [place] [address]- 7[address] Sep, [facility] [place] [facility] [address] [id number] [place] [address]- 9002 Sep, [facility] [place] [facility] [address] [id number] [place] [address]- [address]308 Sep, [facility] [place] [facility] [address] [id number] [place] [address]- 6310 Sep, [facility] [place] [facility] [address] [id number] [place] [address]- [address]31 Sep, [facility] [place] [facility] [address] [id number] [place] [address]- 6142 Sep, [facility] [place] [facility] [address] [id number] [place] [address]- 9184 Sep, [facility] [place] [facility] [address] [id number] [place] [address]- 9122 Sep, [facility] [address] [id number] [place] [address]- 8274 Sep, [facility] [place] [facility] [address] [id number] [place] [address]- 8398 Aug, [facility] [place] [facility] [address] [id number] [place] [address]- 3599 Aug, [facility] [place] [facility] [address] [id number] [place] [address]- 0905 Aug, [facility] [place] [facility] [address] [id number] [place] [address]- 5142 Aug, [facility] [address] [id number] [place] [address]- 8038 July, [facility] [address] [id number] [place] [address]- 0073 July, [facility] [address] [id number] [place] [address]- 3344 July, [facility] [address] [id number] [place] [address]- 0295 July, [facility] [address] [id number] [place] [address]- 28[address] July, [facility] [place] [facility] [address] [id number] [place] [address]- 8856 July, [facility] [place] [facility] [address] [id number] [place] [address]- 7725 July, [facility] [place] [facility] [address] [id number] [place] [address]- 3513 Jun, [facility] [place] [facility] [address] [id number] [place] [address]- 3520 May, [facility] [place] [facility] [address] [id number] [place] [address]- [address] May, [facility] [address] [facility] [id number] [place] [address]- [address] May, [facility] [address] [facility] [id number] [address] May, [facility] [address] [facility] [id number] [place] [address] May, [facility] [address] [facility] [id number] [place] [address] May, [facility] [address] [facility] [id number] [place] [address] May, [facility] [address] [facility] [id number] [place] [address] May, IMMUNIZATIONS No Known Immunizations SOCIAL HISTORY Never Assessed REASON FOR VISIT [facility] [place] C[place] VITAL SIGNS MEDICATIONS Unknown [...] 03/2015 Hospitalization History Pneumonia 04/2015 [facility] - unresponsive 11/2017 Hospitalization History [facility]- one week 03/2018 Hospitalization History [facility] 03/10-03/12/[address] [facility] 05/2018
--- OUTSIDE RECORDS SUMMARY | 2018-07-14 17:53 | XMS REPORT ---
Author Author Migration, Doctor Organization [facility] Address Unknown Phone Unavailable Care Team Providers Care Loom Operator Apprentice Name Role Phone Migration, Doctor Unavailable Unavailable PROBLEMS Type Condition ICD9-CM Code ZUX43-AE Code Onset Dates Condition Status SNOMED Code Problem Cellulitis of right lower extremity L03.115 Active 724333695 Problem Neuropathy G62.9 Active 137776229 Problem Renal failure N19 Active 44598296 Problem Intra-dialytic hypotension I95.3 Active 385757947 Problem Amput below knee, unilat S88.119A Active 81785826 Problem Seasonal allergic rhinitis due to other allergic trigger J30.89 Active 021679206 Problem Chronic congestive heart failure, unspecified congestive heart failure type I50.9 Active 28516388 Problem Other chronic pain G89.29 Active 16410996 Problem 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 Active 2441358 Problem Primary insomnia F51.01 Active 1411757 Problem Paroxysmal atrial fibrillation I48.0 Active 355725756 Problem Angina pectoris I20.9 Active 935707379 Problem Type 2 diabetes mellitus with hyperglycemia, unspecified whether residential insulin use E11.65 Active 288526358293312 Problem Chronic congestive heart failure, unspecified heart failure type I50.9 Active 77670678 Problem Self-care deficit for toileting R46.0 Active 153903645 Problem Bronchitis J40 Active 61131328 Problem Observed sleep apnea G47.30 Active 95368251 Problem Unsteady gait R26.81 Active [id number] ALLERGIES No Information ENCOUNTERS Encounter Location Date Diagnosis [facility] [place] [facility] [address] [facility] [id number] [address] May, [place] [address] [address] May, Diabetes type 2, controlled E11.9 [place] [address] [place] [address] [id number] [address] May, [place] [id number], [place] [address] 08 May, 2018 Pressure injury of coccygeal region, stage 2 L89.152 ; Nausea R11.0 ; Chronic congestive heart failure, unspecified congestive heart failure type I50.9 ; Observed sleep apnea G47.30 and Morbid obesity E66.01 [facility] [address] [id number] May, [facility] [place] [facility] [id number] [place] [address] 35725- 7994 May, [facility] [place] [facility] [id number] [place] [address] 17248- 4744 May, [facility] [place] [facility] [id number] [place] [address] 79372- 7791 May, [facility] [place] [facility] [id number] [place] [address] 13903- 8484 May, [facility] [place] [facility] [id number] [place] [address] 03903- 1981 18 May, 2018 Renal failure N19 [facility] [place] [facility] [id number] [place] [address] 19588- 2604 14 May, 2018 [facility] [place] [facility] [id number] [place] [address] 72465- 1424 13 May, 2018 Neuropathy G62.9 and Renal failure N19 [facility] [place] [facility] [id number] [place] [address] 74149- 4181 08 May, 2018 [facility] [place] [facility] [address] [place] [address] 65475- 4647 07 May, 2018 [facility] [place] [facility] [id number] [place] [address] 12134- 3093 04 May, 2018 [facility] [place] [facility] [address] [place] [address] 97743- 3947 Apr, [facility] [place] [facility] [id number] [place] [address] 23750- 4145 Apr, [facility] [place] [facility] [id number] [place] [address] 64472- 3858 Apr, [facility] [place] [facility] [id number] [place] [address] 32231- 9464 Mar, Diabetes type 2, controlled E11.9 [facility] [place] [facility] [address] [address]- [address]958 Mar, Paroxysmal atrial fibrillation I48.0 ; Observed sleep apnea G47.30 ; Unsteady gait R26.81 and Bilious vomiting with nausea R11.14 [facility] [place] [facility] [address] [address]- 0902 Mar, [facility] [place] [facility] [address] 63919- 8555 Mar, [facility] [place] [facility] [address] 96328- 0229 Mar, [facility] [place] [facility] [id number] [place] [address] 22040- 9236 Mar, [facility] [place] [facility] [id number] [place] [address] 19303- 3849 Mar, Diabetes type 2, controlled E11.9 ; BMI 50.0-59.9, adult Z68.43 ; Bronchitis J40 and Other chronic pain G89.29 [facility] [place] [facility] [address] [address] [id number] [place] [address] 01389- 4749 Mar, [facility] [place] [facility] [id number] [place] [address] 74155- 2247 Mar, [facility] [place] [facility] [id number] [place] [address] 89017- 5028 Jan, [facility] [facility] [address] [address] [id number] [place] [address] 39587- 6818 Jan, [facility] [place] [facility] [id number] [place] [address] 62670- 6768 Dec, [facility] [place] [facility] [address], [place] [address]- 3366 Dec, [facility] [place] [facility] [id number] [place] [address] 33269- 0121 Dec, [facility] [place] [facility] [id number] [place] [address] 06233- 9341 Nov, Pneumonia due to infectious organism, unspecified laterality , unspecified part of lung J18.9 and Self-care deficit for toileting R46.0 [facility] [place] [facility] [id number] [place] [address] 05872- 4436 Nov, [facility] [place] [facility] [address] [address] [id number] [place] [address] 42579- 6704 Oct, Diabetes type 2, controlled E11.9 ; Primary insomnia F51.01 and Bilateral headaches R51 [facility] [facility] [address] [place] [address] [id number] [place] [address] 31185- 6351 Oct, [facility] [facility] [id number] [place] [address] 23486- 0824 Sep, [facility] [address] [place] [id number] [place] [id number] Sep, Dental examination Z01.20 and Dental caries K02.9 [facility] [facility] [address] [place] [address] 98383- 7781 Sep, [facility] [facility] [id number] [place] [address] 40391- 4233 Sep, [facility] [facility] [address] [place] [address] 64123- 2993 Sep, Other chronic pain G89.29 and Pain in right knee M25.561 [facility] [facility] [id number] [place] [address] 51649- 6192 Sep, [facility] [facility] [id number] [place] [address] 31376- 0404 Aug, [facility] [address] [facility] [id number], [place] [address]- 9585 Aug, 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 [facility] [facility] [address] [facility] [id number], [place] [address]- 9307 15 Aug, 2017 [facility] [facility] [address] [facility] [id number], [place] [address] 1950 11 Aug, 2017 Diabetes type 2, controlled E11.9 and Acute pain of right knee M25.561 [facility] [address] [facility] [id number], [place] [address]- 5973 09 Aug, 2017 [facility] [facility] [address] [facility] [id number] [place] [address] 50484- 7226 July, [facility] [address], [place] [address]- 7976 16 Jun, 2017 [facility] [address] [address]- 3851 Jun, [facility] [address], [place] [address]- 1643 10 Jun, 2017 Diabetes type 2, controlled E11.9 [facility] [address], [place] [address]- 5298 Jun, [facility] [address] [place] [id number] [address]- 6572 May, [facility] [address], [place] [address]- 0448 May, [facility] [address] [place] [id number] [address]- 0751 May, [facility] [address], [place] [address]- 3565 May, Chronic congestive heart failure, unspecified congestive heart failure type I50.9 [facility] [address], [place] [address]- 9016 May, Diabetes type 2, controlled E11.9 ; BMI 50.0-59.9, adult Z68.43 ; Chronic congestive heart failure, unspecified heart failure type I50.9 ; Angina pectoris I20.9 ; Seasonal allergic rhinitis due to other allergic trigger J30.89 and Renal failure N19 [facility] [address] [address] May, [facility] [address] [address] [id number] [place] [address] 06043- 8620 May, [facility] [address] [address] [id number] [place] [address] 58988- 8143 May, [facility] [address] [place] [address] [id number] [place] [address] 45923- 7109 May, [facility] [address] [address] [id number] [place] [address] 60111- 9517 May, [facility] [address] [place] [id number] [place] [address] 81002- 2758 Apr, BMI 50.0-59.9, adult Z68.43 [facility] [address] [address] [id number] [place] [address] 01698- 4010 Apr, BMI 50.0-59.9, adult Z68.43 ; Post-procedural fever R50.82 and Bronchitis J40 [facility] [address] [place] [address] 67199- 7299 Apr, Chronic congestive heart failure, unspecified congestive heart failure type I50.9 [facility] [address] [id number] [place] [address] 11057- 7285 Jan, [facility] [address] [address] [id number] [place] [address] 14897- 4427 Jan, Diabetes type 2, controlled E11.9 [facility] [facility] [address] [address] [id number] [place] [address] 12397- 7040 Jan, Neuropathy G62.9 [facility] [address] [place] [address] [place] [address]- 5427 16 Jan, 2017 [facility] [facility] [address] [facility] [id number] [place] [address]- 3656 Jan, [facility] [facility] [address] [facility] [id number] [place] [address]- 9679 Jan, [facility] [facility] [address] [facility] [id number] [place] [address]- 8348 Jan, [facility] [facility] [address] [facility] [id number] [place] [address]- 8645 Jan, [facility] [facility] [address] [place] [id number] [place] [address]- 0511 Dec, [facility] [facility] [address] [facility] [id number] [place] [address]- 0563 Dec, [facility] [facility] [address] [address]- 9681 Dec, Diabetes type 2, controlled E11.9 [facility] [facility] [address] [place] [id number] [place] [address]- 6721 Dec, [facility] [facility] [address], [place] [address]- 8952 Dec, [facility] [facility] [address], [place] [address]- 4964 Dec, Chronic congestive heart failure, unspecified congestive heart failure type I50.9 [facility] [place] [facility] [address] [address] [id number] [address]- 3765 Dec, [facility] [facility] [address] [facility] [id number], [place] [address]- 5576 Dec, [facility] [facility] [address] [place] [id number] [address]- 2162 Nov, Chronic congestive heart failure, unspecified congestive heart failure type I50.9 [facility] [facility] [address] [place] [id number] [address]- 4511 Nov, Chronic congestive heart failure, unspecified congestive heart failure type I50.9 [facility] [facility] [address] [facility] [id number], [place] [address]- 6505 Nov, [facility] [facility] [address], [place] [address]- 7524 Oct, [facility] [facility] [address] [address]- 7364 Oct, [facility] [facility] [address] [place] [address] 37902- 7955 Oct, Chronic congestive heart failure, unspecified congestive heart failure type I50.9 [facility] [facility] [address] [place] [address] 44899- 0476 Oct, [facility] [facility] [address] [address]- 8431 Oct, Pneumonia of both lungs due to infectious organism, unspecified part of lung J18.9 [facility] [facility] [address], [place] [address]- 9860 Oct, [facility] [facility] [address] [address]- 4386 Oct, Diabetes type 2, controlled E11.9 [facility] [facility] [address] [address]- 1622 Oct, Diabetes type 2, controlled E11.9 [facility] [facility] [address], [place] [address]- 0852 Sep, [facility] [facility] [address], [place] [address]- 1445 Sep, Neuropathy G62.9 [facility] [facility] [address], [place] [address]- 2755 Aug, Intra-dialytic hypotension I95.3 [facility] [facility] [address], [place] [address]- 9167 July, [facility] [place] [facility] [address] [id number] [place] [address] 2546 July, [facility] [facility] [address] [facility] [id number] [place] [address] 2546 July, [facility] [place] [facility] [id number] [place] [address] 2546 July, Amput below knee, unilat S88.119A [facility] [facility] [address] [facility] [id number] [place] [address] 2546 May, [facility] [facility] [address] [facility] [id number] [place] [address] 2546 May, Neuropathy G62.9 [facility] [place] [facility] [id number] [place] [address] 2546 May, [facility] [facility] [id number] [place] [address] 2546 May, [facility] [place] [facility] [address] [place] [address] 2546 May, [facility] [facility] [id number] [place] [address]- 1386 May, [facility] [place] [facility] [id number] [place] [address] 2546 May, Neuropathy G62.9 [facility] [facility] [id number] [place] [address] 2546 Apr, [facility] [facility] [address] [facility] [id number] [place] [address] 2546 Apr, [facility] [place] [facility] [id number] [place] [address]- 9377 Apr, Diabetes type 2, controlled E11.9 and Renal failure N19 [facility] [address] [facility] [id number] [place] [address] 2546 Apr, [facility] [place] [facility] [id number] [place] [address]- 4777 Apr, [facility] [facility] [id number] [place] [address]- 1077 Mar, [facility] [id number] [place] [address]- 6373 Mar, [facility] [id number] [place] [address] 33243- 0717 Mar, [facility] [id number] [place] [address], [place] [address]- 5041 Mar, [facility] [id number] [place] [address], [place] [address]- 7637 Mar, [facility] [address] [id number] [place] [address], [place] [address]- 4719 Jan, Localized edema R60.0 [facility] [id number] [place] [address] 54510- 6502 Jan, [facility] [facility] [address]005[address], [place] [address]- 6004 Jan, [facility] [id number] [place] [address] 68679- 6529 Jan, [facility] [facility] [address], [place] [address]- 9525 Jan, [facility] [facility] [address], [place] [address]- 7088 Jan, [facility] [address], [place] [address]- 2900 Jan, [facility] [id number] [place] [address] 26910- 7082 Dec, Diabetes type 2, controlled E11.9 and Chronic nonintractable headache, unspecified headache type R51 [facility] [place] [facility] [address] [address]- 2555 Dec, [facility] [address], [place] [address]- 3043 Dec, [facility] [place] [facility] [id number] [place] [address] 95586- 7314 Nov, [facility] [place] [facility] [address], [place] [address]- 0831 Nov, [facility] [place] [facility] [address] [place] [address] 18801- 3137 Oct, [facility] [place] [facility] [address], [place] [address]- 3289 Oct, Migraine without status migrainosus, not intractable, unspecified migraine type G43.909 [facility] [place] [facility] [address] [address]- 0256 Oct, [facility] [place] [facility] [address] [place] [address] 24032- 2274 Sep, Amput below knee, unilat S88.119A and Neuropathy G62.9 [facility] [place] [facility] [address], [place] [address]- 3816 Sep, [facility] [place] [facility] [address] [place] [address] 97866- 1157 Sep, [facility] [place] [facility] [address], [place] [address]- 9410 Sep, [facility] [place] [facility] [address], [place] [address]- 5481 Aug, [facility] [place] [facility] [id number], [place] [address]- 7223 Aug, [facility] [place] [facility] [id number] [place] [address] 52933- 3382 Aug, Diabetes type 2, controlled E11.9 [facility] [place] [facility] [address], [place] [address]- 6305 Aug, [facility] [place] [facility] [id number], [place] [address]- 1823 Jun, Diabetes type 2, controlled E11.9 and Neuropathy G62.9 [facility] [place] [facility] [address] [facility] [id number] [place] [address]- 0236 14 Jul, 2015 [facility] [place] [facility] [address] [facility] [id number] [place] [address]- 6870 Jun, [facility] [place] [facility] [address] [facility] [id number] [place] [address]- 5683 Jun, [facility] [place] [facility] [address] [facility] [id number] [place] [address]- 1759 Jun, [facility] [place] [facility] [address] [facility] [id number] [place] [address]- 8212 May, [facility] [place] [facility] [id number] [place] [address]- 7405 May, Diabetes type 2, controlled E11.9 [facility] [place] [facility] [id number] [place] [address]- 5590 May, [facility] [place] [facility] [address], [place] [address]- 5286 May, [facility] [place] [facility] [address], [place] [address]- 0936 May, [facility] [place] [facility] [address], [place] [address]- 2002 May, [facility] [place] [facility] [address], [place] [address]- 8682 17 May, 2015 [facility] [place] [facility] [address], [place] [address]- 5312 16 May, 2015 [facility] [place] [facility] [address], [place] [address]- 6368 16 May, 2015 [facility] [place] [facility] [address], [place] [address]- 3491 15 May, 2015 COPD (chronic obstructive pulmonary disease) J44.9 [facility] [place] [facility] [id number] [place] [address] 15 May, 2015 [facility] [place] [facility] [id number] [address] May, [facility] [place] [facility] [id number] [place] [address] May, [facility] [place] [facility] [id number] [address] May, [facility] [place] [facility] [id number] [place] [address] May, [facility] [place] [facility] [id number] [address] May, Renal failure N19 and Pneumonia, organism unspecified, unspecified laterality, unspecified part of lung J18.9 [facility] [place] [facility] [id number], [place] [address] Apr, [facility] [place] [facility] [id number] [address] Apr, [facility] [place] [facility] [id number] [address] Apr, [facility] [place] [facility] [id number] [address] Apr, Diabetes mellitus 250.00 [facility] [place] [facility] [id number], [place] [address] Apr, [facility] [place] [facility] [id number] [address] Apr, [facility] [place] [facility] [id number], [place] [address] Apr, [facility] [place] [facility] [id number], [place] [address] Apr, [facility] [place] [facility] [id number] [place] [address] 31 Mar, 2015 [facility] [place] [facility] [address] [id number] [place] [address] 28 Mar, 2015 [facility] [place] [facility] [address] [id number] [place] [address] 23 Mar, 2015 [facility] [place] [facility] [address] [id number] [place] [address] 16 Mar, 2014 Renal failure N19 [facility] [place] [facility] [address] [id number] [place] [address] [address] 14 Mar, 2015 [facility] [place] [facility] [address] [id number] [place] [address]- [address] 07 Mar, 2015 [facility] [place] [facility] [address] [facility] [id number] [place] [address] [address] 04 Mar, 2015 [facility] [place] [facility] [address] [id number] [place] [address] 24 Jan, 2015 [facility] [place] [facility] [address] [id number] [place] [address] 18 Jan, 2015 [facility] [place] [facility] [address] [facility] [id number] [place] [address] 17 Jan, 2015 [facility] [place] [facility] [address] [facility] [id number] [place] [address] Jan, [facility] [place] [facility] [address] [facility] [id number] [place] [address] Dec, [facility] [place] [facility] [address] [id number] [place] [address] Dec, [facility] [place] [facility] [address] [id number] [place] [address] Dec, [facility] [place] [facility] [address] [facility] [id number] [place] [address] Nov, [facility] [place] [facility] [address] [facility] [id number] [place] [address] 45[address] Nov, [facility] [place] [facility] [address] [facility] [id number] [place] [address] 9684 Nov, [facility] [address] [facility] [id number] [place] [address] 6829 Oct, [facility] [address] [facility] [id number] [place] [address] 9331 Oct, [facility] [address] [facility] [id number] [place] [address] 1394 Oct, Renal failure 586 and Obesity 278.00 [facility] [place] [facility] [address] [facility] [id number] [place] [address] 7771 Oct, [facility] [place] [facility] [id number] [place] [address] Oct, [facility] [place] [facility] [id number] [place] [address], [place] [address] Oct, [facility] [place] [facility] [id number] [place] [address] Sep, [facility] [place] [facility] [id number] [place] [address] 94[address] Sep, [facility] [place] [facility] [id number] [place] [address] 4466 Sep, Diabetes mellitus 250.00 and Congestive heart failure, unspecified 428.0 [facility] [place] [facility] [id number] [address] Aug, [facility] [place] [facility] [address] [id number] [address] Aug, [facility] [place] [facility] [id number] [place] [address] 9695 Aug, [facility] [place] [facility] [address] [facility] [id number] [address] 65[address] July, [facility] [place] [facility] [id number] [address] July, [facility] [address] [id number] [place] [address] 7739 July, Heart murmur, systolic 785.2 [facility] [address] [id number] [place] [address]- 4166 July, [facility] [address] [id number] [place] [address]- 4628 July, [facility] [address] [id number] [place] [address] 4149 Jun, [facility] [address] [id number] [place] [address]- 1123 Jun, [facility] [address] [id number] [place] [address]- 0235 May, [facility] [address] [id number] [place] [address]- 6766 May, [facility] [address] [id number] [place] [address]- 6157 May, [facility] [address] [id number] [place] [address]- 8636 May, [facility] [address] [id number] [place] [address]- 2719 May, [facility] [address] [id number] [place] [address]- 9038 16 May, 2014 [facility] [address] [id number] [place] [address]- 5683 May, [facility] [address] [id number] [place] [address]- 4571 May, [facility] [address] [id number] [place] [address]- 2522 May, [facility] [address] [id number] [place] [address]- 7938 May, [facility] [place] [facility] [address] [id number] [place] [address]- 3410 May, 2014 [facility] [place] [facility] [address] [id number] [place] [address]- 3156 May, 2014 [facility] [place] [facility] [address] [facility] [id number] [place] [address]- 4278 May, 2014 [facility] [place] [facility] [address] [facility] [id number] [place] [address]- 6745 May, 2014 [facility] [place] [facility] [address] [id number] [place] [address]- 5607 May, 2014 [facility] [place] [facility] [address] [facility] [id number] [place] [address]- 4321 May, 2014 [facility] [place] [facility] [address] [facility] [id number] [place] [address]- 3507 May, 2014 [facility] [place] [facility] [address] [facility] [id number] [place] [address]- 9116 May, 2014 [facility] [place] [facility] [address] [facility] [id number] [place] [address]- 8996 May, 2014 [facility] [place] [facility] [address] [facility] [id number] [place] [address]- 4423 May, 2014 [facility] [place] [facility] [address] [facility] [id number] [place] [address]- 6865 16 May, 2014 [facility] [place] [facility] [address] [facility] [id number] [place] [address]- 2545 May, 2014 [facility] [place] [facility] [address] [facility] [id number] [place] [address]- 6820 May, 2014 [facility] [place] [facility] [address] [facility] [id number] [place] [address]- 3630 May, 2014 [facility] [place] [facility] [address] [facility] [id number] [place] [address]- 6733 02 May, 2014 [facility] [place] [facility] [address] [id number] [place] [address]- 5038 May, [facility] [place] [facility] [address] [id number] [place] [address]- 9481 Apr, [facility] [place] [facility] [address] [id number] [place] [address]- 8326 Apr, [facility] [place] [facility] [address] [id number] [place] [address]- 0938 Apr, [facility] [place] [facility] [address] [id number] [place] [address]- 4711 Apr, [facility] [place] [facility] [address] [id number] [place] [address]- 6104 Apr, [facility] [place] [facility] [address] [id number] [place] [address]- 0805 Apr, [facility] [place] [facility] [address] [id number] [place] [address]- 1097 Apr, [facility] [place] [facility] [address] [id number] [place] [address]- 2837 Apr, [facility] [place] [facility] [address] [id number] [place] [address]- 4284 Mar, [facility] [place] [facility] [address] [id number] [place] [address]- 1130 Mar, [facility] [place] [facility] [address] [id number] [place] [address]- 9450 Mar, [facility] [place] [facility] [address] [id number] [place] [address]- 8945 Mar, [facility] [place] [facility] [address] [id number] [place] [address]- 7687 Mar, [facility] [place] [facility] [address] [id number] [place] [address]- 2863 Mar, [facility] [place] [facility] [address] [id number] [place] [address]- 7735 Mar, [facility] [place] [facility] [address] [id number] [place] [address]- 7895 18 Mar, 2014 [facility] [place] [facility] [address] [id number] [place] [address]- 8629 Mar, [facility] [place] [facility] [address] [id number] [place] [address]- 4080 Mar, [facility] [place] [facility] [address] [id number] [place] [address]- 3367 Mar, [facility] [place] [facility] [address] [id number] [place] [address]- 1279 Mar, [facility] [place] [facility] [address] [id number] [place] [address]- 4335 Mar, [facility] [place] [facility] [address] [id number] [place] [address]- 6205 Mar, [facility] [place] [facility] [address] [id number] [place] [address]- 8521 Mar, [facility] [place] [facility] [address] [id number] [place] [address]- 2173 Mar, [facility] [place] [facility] [address] [id number] [place] [address]- 8612 Mar, [facility] [place] [facility] [address] [id number] [place] [address]- 1295 Mar, [facility] [place] [facility] [address] [id number] [place] [address]- 8695 Mar, [facility] [place] [facility] [address] [id number] [place] [address]- 8965 Mar, [facility] [place] [facility] [address] [id number] [place] [address]- 1919 Mar, [facility] [place] [facility] [address] [id number] [place] [address]- 5374 Mar, [facility] [place] [facility] [address] [id number] [place] [address]- 6090 Jan, [facility] [place] [facility] [address] [id number] [place] [address]- 1697 Jan, [facility] [place] [facility] [address] [id number] [place] [address]- 8109 Jan, [facility] [place] [facility] [address] [id number] [place] [address]- 5503 Jan, [facility] [place] [facility] [address] [id number] [place] [address]- 4967 Jan, [facility] [place] [facility] [address] [id number] [place] [address]- 5831 Jan, [facility] [place] [facility] [address] [id number] [place] [address]- 6068 Jan, [facility] [place] [facility] [address] [id number] [place] [address]- 8409 Jan, [facility] [place] [facility] [address] [id number] [place] [address]- 0675 Jan, [facility] [place] [facility] [address] [id number] [place] [address]- 6571 Jan, [facility] [place] [facility] [address] [id number] [place] [address]- 2424 Jan, [facility] [place] [facility] [address] [id number] [place] [address]- 6404 Jan, [facility] [place] [facility] [address] [id number] [address]- 3141 Jan, [facility] [place] [facility] [address] [id number] [place] [address]- 6990 Jan, [facility] [place] [facility] [address] [id number] [place] [address]- 3053 Jan, [facility] [place] [facility] [address] [id number] [address]- 8050 Jan, [facility] [place] [facility] [address] [id number] [place] [address]- 3149 Jan, [facility] [place] [facility] [address] [id number] [place] [address]- 1131 Jan, [facility] [place] [facility] [address] [id number] [place] [address] Jan, [facility] [place] [facility] [address] [id number] [place] [address]- 3568 Jan, [facility] [place] [facility] [address] [id number] [place] [address]- 8987 Dec, [facility] [place] [facility] [address] [id number] [place] [address]- 3260 Dec, [facility] [place] [facility] [address] [id number] [place] [address]- 7716 Dec, [facility] [place] [facility] [address] [id number] [place] [address]- 9467 Dec, [facility] [place] [facility] [address] [id number] [place] [address]- 0690 Dec, [facility] [place] [facility] [address] [id number] [place] [address]- 2880 Dec, [facility] [place] [facility] [address] [id number] [place] [address]- 2152 Dec, [facility] [place] [facility] [address] [id number] [place] [address]- 2800 Dec, [facility] [place] [facility] [address] [id number] [place] [address]- 2533 Dec, [facility] [place] [facility] [address] [id number] [place] [address]- 9857 Dec, [facility] [place] [facility] [address] [id number] [place] [address]- 8788 08 Dec, 2013 [facility] [place] [facility] [address] [id number] [place] [address]- 9306 Dec, [facility] [place] [facility] [address] [id number] [place] [address]- 0603 Dec, [facility] [place] [facility] [address] [id number] [place] [address]- 4560 Dec, [facility] [place] [facility] [address] [id number] [place] [address]- 8798 Dec, [facility] [place] [facility] [address] [id number] [place] [address]- 0954 22 Nov, 2013 [facility] [place] [facility] [address] [id number] [place] [address]- 6688 22 Nov, 2013 [facility] [place] [facility] [address] [id number] [place] [address]- 0552 19 Nov, 2013 [facility] [place] [facility] [address] [id number] [place] [address]- 1712 19 Nov, 2013 [facility] [place] [facility] [address] [id number] [place] [address]- 3638 13 Nov, 2013 [facility] [place] [facility] [address] [id number] [place] [address] 2540 13 Nov, 2013 [facility] [place] [facility] [address] [id number] [place] [address]- 2543 10 Nov, 2013 [facility] [place] [facility] [address] [id number] [place] [address]- 9672 10 Nov, 2013 [facility] [place] [facility] [address] [id number] [place] [address]- 6476 08 Sep, 2013 [facility] [place] [facility] [address] [id number] [place] [address]- 2544 05 Sep, 2013 [facility] [place] [facility] [address] [id number] [place] [address]- 2541 05 Sep, 2013 [facility] [place] [facility] [address] [id number] [place] [address]- 2547 03 Sep, 2013 [facility] [place] [facility] [address] [id number] [place] [address]- 3556 Nov, [facility] [place] [facility] [address] [id number] [place] [address]- 3870 Oct, [facility] [place] [facility] [address] [id number] [place] [address]- 9295 Oct, [facility] [place] [facility] [address] [id number] [place] [address]- 8989 Oct, [facility] [place] [facility] [address] [id number] [place] [address]- 2019 Oct, [facility] [place] [facility] [address] [id number] [place] [address]- 9754 Oct, [facility] [place] [facility] [address] [id number] [place] [address]- 1166 Sep, [facility] [place] [facility] [address] [id number] [place] [address]- 5846 Sep, [facility] [place] [facility] [address] [id number] [place] [address]- 9451 Sep, [facility] [place] [facility] [address] [id number] [place] [address]- 6231 Sep, [facility] [place] [facility] [address] [id number] [place] [address]- 1147 Aug, [facility] [place] [facility] [address] [id number] [place] [address]- 1724 Aug, [facility] [place] [facility] [address] [id number] [place] [address]- 0884 Aug, [facility] [place] [facility] [address] [id number] [place] [address]- 0940 Aug, [facility] [place] [facility] [address] [id number] [place] [address]- 6629 Aug, [facility] [place] [facility] [address] [id number] [place] [address]- 1704 Aug, [facility] [place] [facility] [address] [id number] [place] [address]- 4239 Aug, [facility] [place] [facility] [address] [id number] [place] [address]- 6463 Aug, [facility] [place] [facility] [address] [id number] [place] [address]- 2388 Aug, [facility] [place] [facility] [address] [id number] [place] [address]- 4656 Aug, [facility] [place] [facility] [address] [id number] [place] [address]- 4912 Aug, [facility] [place] [facility] [address] [id number] [place] [address]- 9654 Aug, [facility] [place] [facility] [address] [id number] [place] [address]- 5598 Aug, [facility] [place] [facility] [address] [id number] [place] [address]- 0438 Aug, [facility] [place] [facility] [address] [id number] [place] [address]- 1667 Aug, [facility] [place] [facility] [address] [id number] [place] [address]- 8007 Aug, [facility] [place] [facility] [address] [id number], [place] [address]- 5662 Aug, [facility] [place] [facility] [address] [id number], [place] [address]- 9349 Aug, [facility] [place] [facility] [address] [id number] [place] [address]- 7341 Aug, [facility] [place] [facility] [address] [id number] [place] [address]- 1410 Aug, [facility] [place] [facility] [address] [id number] [address]- 9344 Aug, [facility] [place] [facility] [address] [id number], [place] [address]- 1633 Aug, [facility] [place] [facility] [address] [id number] [place] [address]- 2916 Aug, [facility] [place] [facility] [address] [id number] [place] [address]- 9686 Aug, [facility] [place] [facility] [address] [id number] [place] [address]- 9538 July, [facility] [place] [facility] [address] [id number] [place] [address]- 1567 July, [facility] [place] [facility] [address] [id number] [place] [address]- 5291 July, [facility] [place] [facility] [address] [id number] [place] [address]- 3351 July, [facility] [place] [facility] [address] [id number] [place] [address]- 2396 July, [facility] [place] [facility] [address] [id number] [place] [address]- 3956 July, [facility] [place] [facility] [address] [id number] [place] [address]- 9040 Jun, [facility] [place] [facility] [address] [id number] [place] [address]- 8882 Jun, [facility] [place] [facility] [address] [id number] [place] [address]- 5222 Jun, [facility] [place] [facility] [address] [id number] [place] [address]- 9815 Jun, [facility] [place] [facility] [address] [id number] [place] [address]- 9057 Jun, [facility] [place] [facility] [address] [id number] [place] [address]- 1571 Jun, [facility] [place] [facility] [address] [id number] [place] [address]- 4033 Jun, [facility] [place] [facility] [address] [id number] [place] [address]- 5732 Jun, [facility] [place] [facility] [address] [id number] [place] [address]- 3636 Jun, [facility] [place] [facility] [address] [id number] [place] [address]- 4096 Jun, [facility] [place] [facility] [address] [id number] [place] [address]- 7376 Jun, [facility] [place] [facility] [address] [id number] [place] [address]- 7273 Jun, [facility] [place] [facility] [address] [id number] [place] [address]- 6825 Jun, [facility] [place] [facility] [address] [id number] [place] [address]- 7751 Jun, [facility] [place] [facility] [address] [id number] [place] [address]- 2517 Jun, [facility] [place] [facility] [address] [id number] [place] [address]- 5626 May, [facility] [place] [facility] [address] [id number] [place] [address]- 2522 May, [facility] [place] [facility] [address] [id number] [place] [address]- 7112 May, [facility] [place] [facility] [address] [id number] [place] [address]- 0788 May, [facility] [place] [facility] [address] [id number] [place] [address]- 8252 May, [facility] [place] [facility] [address] [id number] [place] [address]- 9316 May, [facility] [place] [facility] [address] [id number] [place] [address]- 3646 May, [facility] [place] [facility] [address] [id number] [place] [address]- 8403 May, [facility] [place] [facility] [address] [id number] [place] [address]- 6891 May, [facility] [place] [facility] [address] [id number] [place] [address]- 9088 May, [facility] [place] [facility] [address] [id number] [place] [address]- 2138 May, [facility] [place] [facility] [address] [id number] [place] [address]- 8316 May, [facility] [place] [facility] [address] [id number] [place] [address]- 6527 May, [facility] [place] [facility] [address] [id number] [place] [address]- 2336 May, [facility] [place] [facility] [address] [id number] [place] [address] May, [facility] [place] [facility] [address] [id number] [place] [address] May, [facility] [place] [facility] [address] [id number] [place] [address] May, [facility] [place] [facility] [address] [id number] [place] [address] Apr, [facility] [place] [facility] [address] [id number] [place] [address] Apr, [facility] [place] [facility] [address] [id number] [place] [address] Apr, [facility] [place] [facility] [address] [id number] [place] [address] Apr, [facility] [place] [facility] [address] [id number] [place] [address] Apr, [facility] [place] [facility] [address] [id number] [place] [address] Apr, [facility] [place] [facility] [address] [id number] [place] [address] 10 Apr, 2013 [facility] [address] [id number] [place] [address] Apr, [facility] [place] [facility] [address] [id number] [place] [address] Apr, [facility] [address] [id number] [place] [address] Apr, [facility] [address] [id number] [place] [address] Apr, [facility] [address] [id number] [place] [address] 135[address] Apr, [facility] [address] [id number] [place] [address] Apr, [facility] [address] [id number] [place] [address] Apr, [facility] [address] [id number] [place] [address] Apr, [facility] [address] [id number] [place] [address] 3569 Apr, [facility] [address] [id number] [place] [address] Mar, [facility] [address] [id number] [place] [address] Mar, [facility] [address] [id number] [place] [address]69 Mar, [facility] [place] [facility] [address] [id number] [place] [address] Mar, [facility] [place] [facility] [address] [id number] [place] [address] Mar, [facility] [place] [facility] [address] [id number] [place] [address] Mar, [facility] [address] [id number] [place] [address] 18 Mar, 2013 [facility] [place] [facility] [address] [id number] [place] [address] Mar, [facility] [place] [facility] [address] [id number] [place] [address] Mar, [facility] [place] [facility] [address] [id number] [place] [address] Mar, [facility] [place] [facility] [address] [id number] [place] [address] Mar, [facility] [place] [facility] [address] [id number] [place] [address] Mar, [facility] [place] [facility] [address] [id number] [place] [address] Mar, [facility] [place] [facility] [address] [id number] [place] [address] Mar, [facility] [place] [facility] [address] [id number] [place] [address] 16[address] Mar, [facility] [place] [facility] [address] [id number] [place] [address] 1540 Mar, [facility] [place] [facility] [address] [id number] [place] [address]99 Mar, [facility] [place] [facility] [address] [id number] [address] Mar, [facility] [place] [facility] [address] [id number] [place] [address] Jan, [facility] [place] [facility] [address] [id number] [place] [address] 46[address] Jan, [facility] [place] [facility] [address] [id number] [place] [address] Jan, [facility] [place] [facility] [address] [id number] [place] [address] Jan, [facility] [address] [id number] [place] [address] 27 Nov, 2012 [facility] [place] [facility] [address] [id number] [place] [address] 10 Nov, 2012 [facility] [place] [facility] [address] [id number] [place] [address] Nov, [facility] [place] [facility] [address] [id number] [place] [address] Nov, [facility] [place] [facility] [address] [id number] [place] [address]- [address] Oct, [facility] [place] [facility] [address] [id number] [place] [address]274 Oct, [facility] [address] [id number] [place] [address] Oct, [facility] [place] [facility] [address] [id number] [place] [address]69 Oct, [facility] [place] [facility] [address] [id number] [place] [address]368 Sep, [facility] [place] [facility] [address] [id number] [place] [address]167 Sep, [facility] [place] [facility] [address] [id number] [place] [address] 6[address] Sep, [facility] [place] [facility] [address] [id number] [place] [address] Sep, [facility] [place] [facility] [address] [id number] [place] [address]- [address] Sep, [facility] [place] [facility] [address] [id number] [place] [address] 26[address] Sep, [facility] [place] [facility] [address] [id number] [place] [address]198 Sep, [facility] [place] [facility] [address] [id number] [place] [address] Sep, [facility] [address] [id number] [place] [address] 240[address] Sep, [facility] [place] [facility] [address] [id number] [place] [address]561 Aug, [facility] [place] [facility] [address] [id number] [place] [address] Aug, [facility] [place] [facility] [address] [id number] [place] [address] Aug, [facility] [place] [facility] [address] [id number] [place] [address] Aug, [place] [facility] [address] [id number] [place] [address] July, [facility] [address] [id number] [place] [address] July, [facility] [address] [id number] [place] [address] July, [facility] [address] [id number] [place] [address] July, [facility] [address] [id number] [place] [address] July, [facility] [place] [facility] [address] [id number] [place] [address] July, [facility] [place] [facility] [address] [id number] [place] [address] July, [facility] [place] [facility] [address] [id number] [place] [address] Jun, [facility] [place] [facility] [address] [id number] [place] [address] May, [facility] [place] [facility] [address] [id number] [place] [address] May, [facility] [place] [facility] [address] [facility] [id number] [place] [address] May, [facility] [place] [facility] [address] [facility] [id number], [place] [address] May, [facility] [place] [facility] [address] [facility] [id number], [place] [address] May, [facility] [place] [facility] [address] [facility] [id number], [place] [address] May, [facility] [place] [facility] [address] [facility] [id number] [address] May, [facility] [place] [facility] [address] [facility] [id number], [place] [address] May, IMMUNIZATIONS No Known Immunizations SOCIAL HISTORY Never Assessed REASON FOR VISIT [facility] [place] CARE VITAL SIGNS MEDICATIONS Unknown [...] 03/2015 Hospitalization History Pneumonia 04/2015 Hospitalization History [facility] 5 nights - unresponsive 11/2017 Hospitalization History [facility]- one week 03/2018 Hospitalization History [facility] 03/10-03/12/2019 Hospitalization History [facility] 05/2018
--- OUTSIDE RECORDS SUMMARY | 2018-07-14 17:54 | XMS REPORT ---
Author Author MCKENNA HEBERT [facility] Address [address] [place] [address] Care Team Providers Care Furnace Operator Name Role Phone MCKENNA HEBERT Unavailable PROBLEMS Type Condition ICD9-CM Code [id number] Code Onset Dates Condition Status SNOMED Code Problem Cellulitis of right lower extremity L03.115 Active 229316337 Problem Neuropathy G62.9 Active 866653260 Problem Renal failure N19 Active 88009638 Problem Intra-dialytic hypotension I95.3 Active 303040769 Problem Amput below knee, unilat S88.119A Active 12215248 Problem Seasonal allergic rhinitis due to other allergic trigger J30.89 Active 925391278 Problem Chronic congestive heart failure, unspecified congestive heart failure type I50.9 Active 64355320 Problem Other chronic pain G89.29 Active 34796074 Problem 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 Active 1894200 Problem Primary insomnia F51.01 Active 4632658 Problem Paroxysmal atrial fibrillation I48.0 Active 922597223 Problem Angina pectoris I20.9 Active 728074291 Problem Type 2 diabetes mellitus with hyperglycemia, unspecified whether retirement insulin use E11.65 Active [id number] Problem Chronic congestive heart failure, unspecified heart failure type I50.9 Active 32141229 Problem Self-care deficit for toileting R46.0 Active 786689668 Problem Bronchitis J40 Active 95013355 Problem Observed sleep apnea G47.30 Active 60000083 Problem Unsteady gait R26.81 Active 945299279 ALLERGIES No Information ENCOUNTERS Encounter Location Date Diagnosis [facility] [id number] [address] May, [facility] [address] [address] 13 May, 2018 Diabetes type 2, controlled E11.9 [facility] [id number] [place] [address] 80040- 4157 08 May, 2018 [facility] [id number] [place] [address] 56257- 6864 08 May, 2018 Pressure injury of coccygeal region, stage 2 L89.152 ; Nausea R11.0 ; Chronic congestive heart failure, unspecified congestive heart failure type I50.9 ; Observed sleep apnea G47.30 and Morbid obesity E66.01 [facility] [id number] [place] [address] [id number] May, [facility] [id number] [place] [address] 33910- 0754 May, [facility] [id number] [place] [address] 70344- 2931 27 May, 2018 [facility] [id number] [place] [address] 02110- 6763 May, [facility] [id number] [place] [address] 63717- 9085 May, [facility] [id number] [place] [address] 37390- 9809 18 May, 2018 Renal failure N19 [facility] [id number] [place] [address] 86472- 4486 14 May, 2018 [facility] [id number] [place] [address] 95981- 9023 13 May, 2018 Neuropathy G62.9 and Renal failure N19 [facility] [id number] [place] [address] 56266- 9768 08 May, 2018 [facility] [id number] [place] [address] 09883- 8871 07 May, 2018 [facility] [id number] [place] [address] 63431- 6759 04 May, 2018 [facility] [id number] [place] [address] 61872- 2710 Apr, [facility] [id number] [place] [address] 60884- 4340 Apr, [facility] [id number] [place] [address] 25994- 5621 Apr, [facility] [id number] [place] [address] 00946- 4960 Mar, Diabetes type 2, controlled E11.9 [facility] [id number] [place] [address] 30387- 0941 Mar, Paroxysmal atrial fibrillation I48.0 ; Observed sleep apnea G47.30 ; Unsteady gait R26.81 and Bilious vomiting with nausea R11.14 [facility] [id number] [place] [address] 23110- 1705 Mar, [facility] [address] 48289- 6252 Mar, [facility] [id number] [place] [address] 98165- 4762 Mar, [facility] [id number] [place] [address] 43739- 5324 Mar, [facility] [id number] [place] [address] 99386- 2637 Mar, Diabetes type 2, controlled E11.9 ; BMI 50.0-59.9, adult Z68.43 ; Bronchitis J40 and Other chronic pain G89.29 [facility] [id number] [place] [address] 03143- 6385 Mar, [facility] [id number] [place] [address] 56315- 6597 Mar, [facility] [id number] [place] [address] 91053- 1241 Jan, [facility] [id number] [place] [address] 66372- 2982 Jan, [facility] [id number] [place] [address] 68157- 3085 Dec, [facility] [id number] [place] [address] 27497- 9321 Dec, [facility] [id number] [place] [address] 87639- 3941 Dec, [facility] [id number] [place] [address] 17583- 0274 Nov, Pneumonia due to infectious organism, unspecified laterality , unspecified part of lung J18.9 and Self-care deficit for toileting R46.0 [facility] [id number] [place] [address] 92536- 9002 Nov, [facility] [id number] [place] [address] 26114- 0926 Oct, Diabetes type 2, controlled E11.9 ; Primary insomnia F51.01 and Bilateral headaches R51 [facility] [id number] [place] [address] 02992- 3035 Oct, [facility] [id number] [place] [address] 25308- 9762 Sep, [facility] [id number] [place] [address] [id number] Sep, Dental examination Z01.20 and Dental caries K02.9 [facility] [id number] [place] [address] 50396- 6249 Sep, [facility] [id number] [place] [address] 10087- 3573 Sep, [facility] [id number] [place] [address] 26267- 3228 Sep, Other chronic pain G89.29 and Pain in right knee M25.561 [facility] [id number] [place] [address] 10235- 0614 Sep, [facility] [address] [facility] [id number] [place] [address]- 7416 Aug, [facility] [address] 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 [id number] [place] [address]- 1201 Aug, [facility] [address] [facility] [id number] [address]- 2739 Aug, Diabetes type 2, controlled E11.9 and Acute pain of right knee M25.561 [facility] [address] [facility] [id number] [place] [address]- 6241 Aug, [facility] [address] [facility] [id number] [place] [address]- 0019 July, [facility] [address] [address]- 6329 16 Jun, 2017 [facility] [address] [facility] [id number] [address]- 2142 Jun, [facility] [address] [address]- 9991 10 Jun, 2017 Diabetes type 2, controlled E11.9 [facility] [id number] [address]- 5292 Jun, [facility] [address] [facility] [id number] [address]- 5019 May, [facility] [address] [facility] [id number] [address]- 2066 May, [facility] [address] [place] [address]- 9962 May, [facility] [address] [facility] [id number] [address]- 3030 May, Chronic congestive heart failure, unspecified congestive heart failure type I50.9 [facility] [id number] [place] [address] 15736- 3368 May, Diabetes type 2, controlled E11.9 ; BMI 50.0-59.9, adult Z68.43 ; Chronic congestive heart failure, unspecified heart failure type I50.9 ; Angina pectoris I20.9 ; Seasonal allergic rhinitis due to other allergic trigger J30.89 and Renal failure N19 [facility] [address] [place] [address] [id number] May, [facility] [id number] [place] [address] 04731- 4582 May, [address] 50198- 1675 May, [address] [facility] [id number] [place] [address] 40839- 7278 May, [address] [id number] [place] [address] 88357- 5817 May, [facility] [id number] [place] [address] 59540- 6091 Apr, BMI 50.0-59.9, adult Z68.43 [address] [facility] [id number] [place] [address] 29345- 8058 Apr, BMI 50.0-59.9, adult Z68.43 ; Post-procedural fever R50.82 and Bronchitis J40 [facility] [id number] [place] [address] 44093- 2594 Apr, Chronic congestive heart failure, unspecified congestive heart failure type I50.9 [address] [id number] [place] [address] 30341- 8745 Jan, [facility] [id number] [place] [address] 88960- 4790 Jan, Diabetes type 2, controlled E11.9 [facility] [id number] [place] [address] 88836- 7825 Jan, Neuropathy G62.9 [facility] [address] [facility] [id number] [place] [address]- 0697 Jan, [facility] [address] [facility] [id number] [place] [address]- 3972 Jan, [facility] [address] [facility] [id number] [address]- 1073 Jan, [facility] [address] [facility] [id number] [address]- 6350 Jan, [facility] [address] [facility] [id number] [place] [address]- 0297 Jan, [facility] [address] [facility] [id number] [place] [address]- 8835 Dec, [facility] [address] [facility] [id number] [address]- 5695 Dec, [facility] [address] [facility] [id number] [place] [address]- 2289 Dec, Diabetes type 2, controlled E11.9 [facility] [id number] [address]- 3566 Dec, [facility] [address] [facility] [id number] [address]- 2335 Dec, [facility] [id number] [address]- 1352 Dec, Chronic congestive heart failure, unspecified congestive heart failure type I50.9 [facility] [address] [facility] [id number] [place] [address]- 9568 Dec, [facility] [address] [facility] [id number] [address]- 0576 Dec, [facility] [address] [facility] [id number] [place] [address]- 1560 Nov, Chronic congestive heart failure, unspecified congestive heart failure type I50.9 [facility] [address] [facility] [id number] [place] [address]- 3609 Nov, Chronic congestive heart failure, unspecified congestive heart failure type I50.9 [facility] [address] [facility] [id number] [address]- 2355 Nov, [facility] [address] [facility] [id number] [address]- 6359 Oct, [facility] [address] [facility] [id number] [place] [address]- 4270 Oct, [facility] [address] [facility] [id number] [place] [address]- 7518 Oct, Chronic congestive heart failure, unspecified congestive heart failure type I50.9 [facility] [id number] [address]- 1177 Oct, [facility] [address] [address]- 1926 Oct, Pneumonia of both lungs due to infectious organism, unspecified part of lung J18.9 [facility] [address] [facility] [id number] [place] [address]- 8230 Oct, [facility] [id number] [address]- 1159 Oct, Diabetes type 2, controlled E11.9 [facility] [address] [address]- 7474 Oct, Diabetes type 2, controlled E11.9 [facility] [address] [facility] [id number] [place] [address]- 1818 Sep, [facility] [address] [address]- 5096 Sep, Neuropathy G62.9 [facility] [id number] [address]- 4660 Aug, Intra-dialytic hypotension I95.3 [facility] [address] [place] [address]- 6526 July, [facility] [address] [address]- 9826 July, [facility] [address] [address] 2546 July, [facility] [address] [address]- 2038 July, Amput below knee, unilat S88.119A [facility] [address] [place] [address]- 2023 May, [facility] [id number] [place] [address] 08498- 7336 May, Neuropathy G62.9 [facility] [address] [address]- 5440 May, [facility] [address] [address]- 3316 May, [facility] [address] [address]- 9415 May, [facility] [address] [address]- 0395 May, [facility] [address] [address]- 4670 May, Neuropathy G62.9 [facility] [address] [address]- 9269 Apr, [facility] [address] [address]- 0753 Apr, [facility] [address] 3871 Apr, Diabetes type 2, controlled E11.9 and Renal failure N19 [facility] [address] [address] -3715 Apr, [facility] [address] [address]- 9857 Apr, [facility] [id number] [place] [address] 52455- 8830 Mar, [facility] [id number] [place] [address] 04917- 4185 Mar, [facility] [id number] [place] [address] 33925- 2777 Mar, [facility] [id number] [place] [address] 14411- 5697 Mar, [facility] [id number] [place] [address] 86392- 3089 Mar, [facility] [id number] [place] [address] 38994- 7675 Jan, Localized edema R60.0 [facility] [id number] [place] [address] 39231- 1627 Jan, [facility] [id number] [place] [address] 28944- 3162 Jan, [facility] [id number] [place] [address] 38100- 1300 Jan, [facility] [id number] [place] [address] 63594- 0551 Jan, [facility] [address] [address]- 5824 Jan, [facility] [id number] [place] [address] 55338- 5371 Jan, [facility] [id number] [place] [address] 09320- 6455 Dec, Diabetes type 2, controlled E11.9 and Chronic nonintractable headache, unspecified headache type R51 [facility] [id number] [place] [address] 39504- 7151 Dec, [facility] [id number] [place] [address] 10708- 7845 Dec, [facility] [id number] [place] [address] 36173- 5023 Nov, [facility] [id number] [place] [address] 73920- 6036 Nov, [facility] [id number] [place] [address] 45670- 3162 Oct, [facility] [id number] [place] [address] 74289- 8924 Oct, Migraine without status migrainosus, not intractable, unspecified migraine type G43.909 [facility] [id number] [place] [address] 67687- 0798 Oct, [facility] [id number] [place] [address] 64840- 1902 Sep, Amput below knee, unilat S88.119A and Neuropathy G62.9 [facility] [id number] [place] [address] 52412- 6790 Sep, [facility] [id number] [place] [address] 01292- 4458 Sep, [facility] [id number] [place] [address] 90679- 3955 Sep, [facility] [id number] [place] [address] 00750- 6214 Aug, [facility] [id number] [place] [address] 63389- 1163 Aug, [facility] [id number] [place] [address] 54693- 4251 Aug, Diabetes type 2, controlled E11.9 [facility] [id number] [place] [address] 02337- 5694 Aug, [facility] [address] [id number] [place] [address]- 7262 Jun, Diabetes type 2, controlled E11.9 and Neuropathy G62.9 [facility] [address] [id number] [place] [address]- 8496 14 Jul, 2015 [facility] [address] [id number] [place] [address]- 3584 Jun, [facility] [address] [id number] [place] [address]- 0309 Jun, [facility] [address] [id number] [place] [address]- 2538 Jun, [facility] [address] [facility] [id number] [place] [address]- 8302 May, [facility] [address] [id number] [place] [address]- 1035 May, Diabetes type 2, controlled E11.9 [facility] [address] [id number] [place] [address]- 2121 May, [facility] [address] [facility] [id number] [place] [address]- 8425 May, [facility] [address] [facility] [id number] [place] [address]- 5825 May, [facility] [address] [facility] [id number] [address]- 5112 May, [facility] [address] [facility] [id number] [place] [address]- 1569 May, [facility] [address] [facility] [id number] [place] [address]- 0161 May, [facility] [address] [facility] [id number] [place] 3992 May, [facility] [address] [facility] [id number] [place] [address]- 5076 May, COPD (chronic obstructive pulmonary disease) J44.9 [facility] [address] [address]- 9185 15 May, 2015 [facility] [address] [address]- 6228 May, [facility] [id number] [place] [address] 63465- 5025 May, [facility] [id number] [place] [address] 48493- 7909 May, [facility] [id number] [place] [address], [place] [address]- 5595 May, [facility] [address] [address]- 5073 May, Renal failure N19 and Pneumonia, organism unspecified, unspecified laterality, unspecified part of lung J18.9 [facility] [address] [address]- 5457 Apr, [facility] [address] [address]- 7733 Apr, [facility] [address] [address]- 9040 Apr, [facility] [address] [address]- 0025 Apr, Diabetes mellitus 250.00 [facility] [address] [address]- 6194 Apr, [facility] [address] [address]- 9755 Apr, [facility] [address] [address]- 3463 Apr, [facility] [address] [address]- 2546 Apr, [facility] [place] [facility] [address] [facility] [id number] [place] [address]- 4453 Mar, [facility] [place] [facility] [address] [facility] [id number] [place] [address]- 1522 Mar, [facility] [place] [facility] [address] [facility] [id number] [place] 23 Mar, 2015 [facility] [place] [facility] [address] [facility] [id number] [place] [address], [place] [address] 16 Mar, 2015 Renal failure N19 [facility] [place] [facility] [address] [facility] [id number] [place] [address], [place] [address] 14 Mar, 2015 [facility] [place] [facility] [address] [facility] [id number] [place] [address], [place]- [address] Mar, [facility] [place] [facility] [address] [id number] [place] [address], [place] [address] Mar, [facility] [place] [facility] [address] [facility] [id number] [place] [address] 24 Jan, 2015 [facility] [place] [facility] [id number] [place] [address], [place] [address] 18 Jan, 2015 [facility] [place] [facility] [address] [facility] [id number] [place] [address] Jan, [facility] [place] [facility] [address] [facility] [id number] [place] [address] Jan, [facility] [place] [facility] [address] [facility] [id number] [place] [address] Dec, [facility] [place] [facility] [address] [facility] [id number] [place] [address] Dec, [facility] [place] [facility] [address] [facility] [id number] [place] [address] Dec, [facility] [place] [facility] [address] [facility] [id number] [place] [address] Nov, [facility] [place] [facility] [address] [id number] [place] [address] Nov, [facility] [address] [facility] [id number] [place] [address] Nov, [facility] [address] [facility] [id number] [place] [address] Oct, [facility] [address] [facility] [id number] [place] [address]- [address] Oct, [facility] [facility] [address] [facility] [id number] [place] [address] Oct, Renal failure 586 and Obesity 278.00 [facility] [address] [facility] [id number] [place] [address] Oct, [facility] [id number] [place] [address] Oct, [facility] [id number] [address] Oct, [facility] [address] [id number] [place] [address] Sep, [facility] [address] [id number] [place] [address] Sep, [facility] [address] [id number] [place] [address] Sep, Diabetes mellitus 250.00 and Congestive heart failure, unspecified 428.0 [facility] [address] [id number] [place] [address] Aug, [facility] [address] [id number] [place] [address] Aug, [facility] [address] [id number] [place] [address] 46[address] Aug, [facility] [address] [id number] [address] July, [facility] [place] [facility] [address] [id number] [place] [address] July, [facility] [address] [id number] [place] [address] July, Heart murmur, systolic 785.2 [facility] [address] [id number] [place] [address] 4[address] July, [facility] [address] [id number] [place] [address] 38[address] July, [facility] [address] [id number] [place] [address]- 67[address] Jun, [facility] [address] [id number] [place] [address] 6[address] Jun, [facility] [address] [id number] [place] [address] 3341 May, [facility] [address] [id number] [place] [address] 1438 May, [facility] [address] [id number] [place] [address]- 2184 May, [facility] [place] [facility] [address] [id number] [place] [address]- 0281 May, [facility] [address] [id number] [place] [address]- 2162 16 May, 2014 [facility] [place] [facility] [address] [id number] [place] [address]- 8940 16 May, 2014 [facility] [place] [facility] [address] [id number] [place] [address]- 7009 May, [facility] [place] [facility] [address] [id number] [place] [address]- 2075 May, [facility] [place] [facility] [address] [id number] [place] [address]- 9363 09 May, 2014 [facility] [place] [facility] [address] [facility] [id number] [place] [address]- 8868 May, 2014 [facility] [place] [facility] [address] [id number] [place] [address]- 1337 May, 2014 [facility] [place] [facility] [address] [id number] [place] [address]- 5252 May, 2014 [facility] [place] [facility] [address] [facility] [id number] [place] [address]- 3418 May, 2014 [facility] [place] [facility] [address] [facility] [id number] [place] [address]- 0245 May, 2014 [facility] [place] [facility] [address] [facility] [id number] [place] [address]- 4156 May, 2014 [facility] [place] [facility] [address] [facility] [id number] [place] [address]- 7299 May, 2014 [facility] [place] [facility] [address] [id number] [place] [address]- 8988 May, 2014 [facility] [place] [facility] [address] [facility] [id number] [place] [address]- 7109 May, 2014 [facility] [place] [facility] [address] [facility] [id number] [place] [address]- 7693 May, 2014 [facility] [place] [facility] [address] [id number] [address] 9516 18 May, 2014 [facility] [place] [facility] [address] [facility] [id number] [place] [address]- 5164 16 May, 2014 [facility] [place] [facility] [address] [facility] [id number] [place] [address]- 7047 16 May, 2014 [facility] [place] [facility] [address] [facility] [id number] [place] [address]- 9124 May, 2014 [facility] [place] [facility] [address] [facility] [id number] [place] [address]- 3474 May, 2014 [facility] [place] [facility] [address] [facility] [id number] [place] [address]- 9081 May, [facility] [address] [id number] [place] [address]- 4429 May, [facility] [place] [facility] [address] [id number] [place] [address]- 2453 Apr, [facility] [place] [facility] [address] [id number] [place] [address]- 1418 Apr, [facility] [place] [facility] [address] [id number] [place] [address]- 3839 Apr, [facility] [place] [facility] [address] [id number] [place] [address]- 0777 Apr, [facility] [place] [facility] [address] [id number] [place] [address]- 4892 Apr, [facility] [address] [id number] [place] [address]- 8546 Apr, [facility] [place] [facility] [address] [id number] [place] [address]- 2635 Apr, [facility] [address] [id number] [place] [address]- 8585 Apr, [facility] [address] [facility] [id number] [place] [address]- 3871 Mar, [facility] [place] [facility] [address] [id number] [place] [address]- 8410 Mar, [facility] [place] [facility] [address] [id number] [place] [address]- 4239 Mar, [facility] [place] [facility] [address] [id number] [place] [address]- 2940 Mar, [facility] [place] [facility] [address] [id number] [place] [address]- 6522 Mar, [facility] [place] [facility] [address] [id number] [place] [address]- 4511 Mar, [facility] [place] [facility] [address] [id number] [place] [address]- 8485 Mar, [facility] [place] [facility] [address] [id number] [place] [address]- 5174 Mar, [facility] [place] [facility] [address] [id number] [place] [address]- 5199 Mar, [facility] [place] [facility] [address] [id number] [place] [address]- 6905 Mar, [facility] [place] [facility] [address] [id number] [place] [address]- 4395 Mar, [facility] [place] [facility] [address] [id number] [place] [address]- 7219 Mar, [facility] [place] [facility] [address] [id number] [place] [address]- 9934 Mar, [facility] [place] [facility] [address] [id number] [place] [address]- 4989 Mar, [facility] [place] [facility] [address] [id number] [place] [address]- 1013 Mar, [facility] [place] [facility] [address] [id number] [place] [address]- 2870 Mar, [facility] [place] [facility] [address] [id number] [place] [address]- 8409 Mar, [facility] [place] [facility] [address] [id number] [place] [address]- 6493 Mar, [facility] [place] [facility] [address] [id number] [place] [address]- 3848 Mar, [facility] [place] [facility] [address] [id number] [place] [address]- 2479 Mar, [facility] [place] [facility] [address] [id number] [place] [address]- 8568 Mar, [facility] [place] [facility] [address] [id number] [place] [address]- 1836 Mar, [facility] [place] [facility] [address] [id number] [place] [address]- 1407 Jan, [facility] [place] [facility] [address] [id number] [place] [address]- 7947 Jan, [facility] [place] [facility] [address] [id number] [place] [address]- 6653 Jan, [facility] [place] [facility] [address] [id number] [place] [address]- 1165 Jan, [facility] [place] [facility] [address] [id number] [place] [address]- 0335 Jan, [facility] [place] [facility] [address] [id number] [place] [address]- 5816 Jan, [facility] [place] [facility] [address] [id number] [place] [address]- 2106 Jan, [facility] [place] [facility] [address] [id number] [place] [address]- 9300 Jan, [facility] [place] [facility] [address] [id number] [place] [address]- 5963 Jan, [facility] [place] [facility] [address] [id number] [place] [address]- 8265 Jan, [facility] [place] [facility] [address] [id number] [place] [address]- 2812 Jan, [facility] [place] [facility] [address] [id number] [place] [address]- 7210 Jan, [facility] [place] [facility] [address] [id number] [place] [address]- 0911 Jan, [facility] [place] [facility] [address] [id number] [place] [address]- 6004 Jan, [facility] [place] [facility] [address] [id number] [place] [address]- 9189 Jan, [facility] [place] [facility] [address] [id number] [place] [address]- 9660 Jan, [facility] [place] [facility] [address] [id number] [place] [address]- 5972 Jan, [facility] [place] [facility] [address] [id number] [place] [address]- 9033 Jan, [facility] [place] [facility] [address] [id number] [place] [address]- 3496 Jan, [facility] [place] [facility] [address] [id number] [place] [address]- 0318 Jan, [facility] [place] [facility] [address] [id number] [place] [address]- 6830 Dec, [facility] [place] [facility] [address] [id number] [place] [address]- 1317 Dec, [facility] [place] [facility] [address] [id number] [place] [address]- 6698 Dec, [facility] [place] [facility] [address] [id number] [place] [address]- 0902 Dec, [facility] [place] [facility] [address] [id number] [place] [address]- 1892 Dec, [facility] [place] [facility] [address] [id number] [place] [address]- 3169 Dec, [facility] [place] [facility] [address] [id number] [place] [address]- 0723 14 Dec, 2013 [facility] [place] [facility] [address] [id number] [place] [address]- 4255 Dec, [facility] [place] [facility] [address] [id number] [place] [address]- 8215 Dec, [facility] [place] [facility] [address] [id number] [place] [address]- 1154 Dec, [facility] [place] [facility] [address] [id number] [place] [address]- 6506 08 Dec, 2013 [facility] [place] [facility] [address] [id number] [place] [address]- 0421 Dec, [facility] [place] [facility] [address] [id number] [place] [address]- 1242 Dec, [facility] [place] [facility] [address] [id number] [place] [address]- 3756 Dec, [facility] [place] [facility] [address] [id number] [place] [address]- 2105 Dec, [facility] [place] [facility] [address] [id number] [place] [address]- 8559 22 Nov, 2013 [facility] [place] [facility] [address] [id number] [place] [address]- 9068 22 Nov, 2013 [facility] [place] [facility] [address] [id number] [place] [address]- 7127 19 Nov, 2013 [facility] [place] [facility] [address] [id number] [place] [address]- 9848 19 Nov, 2013 [facility] [place] [facility] [address] [id number] [place] [address]- 9464 13 Nov, 2013 [facility] [place] [facility] [address] [id number] [place] [address]- 7211 13 Nov, 2013 [facility] [place] [facility] [address] [id number] [place] [address]- 8161 10 Nov, 2013 [facility] [place] [facility] [address] [id number] [place] [address]- 9725 10 Nov, 2013 [facility] [place] [facility] [address] [id number] [place] [address]- 1043 08 Sep, 2013 [facility] [place] [facility] [address] [id number] [place] [address]- 9586 05 Sep, 2013 [facility] [place] [facility] [address] [id number] [place] [address]- 9176 05 Sep, 2013 [facility] [place] [facility] [address] [id number] [place] [address]- 7690 Nov, [facility] [place] [facility] [address] [id number] [place] [address]- 6126 Nov, [facility] [place] [facility] [address] [id number] [place] [address]- 9924 Oct, [facility] [place] [facility] [address] [id number] [place] [address]- 9824 Oct, [facility] [place] [facility] [address] [id number] [place] [address]- 0015 Oct, [facility] [place] [facility] [address] [id number] [place] [address]- 4019 Oct, [facility] [place] [facility] [address] [id number] [place] [address]- 4478 Oct, [facility] [place] [facility] [address] [id number] [place] [address]- 1227 Sep, [facility] [place] [facility] [address] [id number] [place] [address]- 5472 Sep, [facility] [place] [facility] [address] [id number] [place] [address]- 9749 Sep, [facility] [place] [facility] [address] [id number] [place] [address]- 7502 Sep, [facility] [place] [facility] [address] [id number] [place] [address]- 1490 Aug, [facility] [place] [facility] [address] [id number] [place] [address]- 6588 Aug, [facility] [place] [facility] [address] [id number] [place] [address]- 8420 Aug, [facility] [place] [facility] [address] [id number] [place] [address]- 1793 Aug, [facility] [place] [facility] [address] [id number] [place] [address]- 3936 Aug, [facility] [place] [facility] [address] [id number] [place] [address]- 6141 Aug, [facility] [place] [facility] [address] [id number] [place] [address]- 3966 Aug, [facility] [place] [facility] [address] [id number] [place] [address]- 1419 Aug, [facility] [place] [facility] [address] [id number] [place] [address]- 0590 Aug, [facility] [place] [facility] [address] [id number] [place] [address]- 8972 Aug, [facility] [place] [facility] [address] [id number] [place] [address]- 6786 Aug, [facility] [place] [facility] [address] [id number] [place] [address]- 9596 Aug, [facility] [place] [facility] [address] [id number] [place] [address]- 6835 Aug, [facility] [place] [facility] [address] [id number] [place] [address]- 9704 Aug, [facility] [place] [facility] [address] [id number] [place] [address]- 2969 Aug, [facility] [place] [facility] [address] [id number] [place] [address]- 6380 Aug, [facility] [place] [facility] [address] [id number] [place] [address]- 9501 Aug, [facility] [place] [facility] [address] [id number] [place] [address]- 5232 Aug, [facility] [place] [facility] [address] [id number] [place] [address]- 5357 Aug, [facility] [place] [facility] [address] [id number] [place] [address]- 6284 Aug, [facility] [place] [facility] [address] [id number] [place] [address]- 8005 Aug, [facility] [place] [facility] [address] [id number] [place] [address]- 8375 Aug, [facility] [place] [facility] [address] [id number] [place] [address]- 9937 Aug, [facility] [place] [facility] [address] [id number] [place] [address]- 7276 Aug, [facility] [place] [facility] [address] [id number] [place] [address]- 5280 July, [facility] [place] [facility] [address] [id number] [place] [address]- 1015 July, [facility] [place] [facility] [address] [id number] [place] [address]- 4281 July, [facility] [place] [facility] [address] [id number] [place] [address]- 8573 July, [facility] [place] [facility] [address] [id number] [place] [address]- 1510 July, [facility] [place] [facility] [address] [id number] [place] [address]- 8201 July, [facility] [place] [facility] [address] [id number] [place] [address]- 8873 Jun, [facility] [place] [facility] [address] [id number] [place] [address]- 8379 Jun, [facility] [place] [facility] [address] [id number] [place] [address]- 1561 Jun, [facility] [place] [facility] [address] [id number] [place] [address]- 4227 Jun, [facility] [place] [facility] [address] [id number] [place] [address]- 6577 Jun, [facility] [place] [facility] [address] [id number] [place] [address]- 7019 Jun, [facility] [place] [facility] [address] [id number] [place] [address]- 0994 Jun, [facility] [place] [facility] [address] [id number] [place] [address]- 0128 Jun, [facility] [place] [facility] [address] [id number] [place] [address]- 8678 Jun, [facility] [place] [facility] [address] [id number] [place] [address]- 4306 Jun, [facility] [place] [facility] [address] [id number] [place] [address]- 9067 Jun, [facility] [place] [facility] [address] [id number] [place] [address]- 5268 Jun, [facility] [place] [facility] [address] [id number] [place] [address]- 0710 Jun, [facility] [place] [facility] [address] [id number] [place] [address]- 7675 Jun, [facility] [place] [facility] [address] [id number] [place] [address]- 1628 Jun, [facility] [place] [facility] [address] [id number] [place] [address]- 5267 May, [facility] [place] [facility] [address] [id number] [place] [address]- 8547 May, [facility] [place] [facility] [address] [id number] [place] [address]- 9226 May, [facility] [place] [facility] [address] [id number] [place] [address]- 0333 May, [facility] [place] [facility] [address] [id number] [place] [address]- 1857 May, [facility] [place] [facility] [address] [id number] [place] [address]- 0757 May, [facility] [place] [facility] [address] [id number] [place] [address]- 9641 May, [facility] [place] [facility] [address] [id number] [place] [address]- 9621 May, [facility] [place] [facility] [address] [id number] [place] [address]- 3186 May, [facility] [place] [facility] [address] [id number] [place] [address]- 7647 May, [facility] [place] [facility] [address] [id number] [place] [address]- 6600 May, [facility] [place] [facility] [address] [id number] [place] [address]- 0286 May, [facility] [place] [facility] [address] [id number] [place] [address]- 6477 May, [facility] [place] [facility] [address] [facility] [id number] [place] [address] May, [facility] [place] [facility] [address] [id number] [place] [address] May, [facility] [place] [facility] [address] [id number] [place] [address] May, [facility] [place] [facility] [address] [id number] [place] [address] May, [facility] [place] [facility] [address] [facility] [id number] [place] [address] Apr, [facility] [place] [facility] [address] [id number] [place] [address] Apr, [facility] [place] [facility] [address] [id number] [place] [address] Apr, [facility] [place] [facility] [address] [id number] [place] [address] Apr, [facility] [place] [facility] [address] [id number] [place] [address] Apr, [facility] [place] [facility] [address] [id number] [place] [address] Apr, [facility] [address] [id number] [place] [address] Apr, [facility] [place] [facility] [address] [id number] [place] [address] Apr, [facility] [place] [facility] [address] [facility] [id number] [place] [address] Apr, [facility] [place] [facility] [address] [id number] [place] [address] Apr, [facility] [place] [facility] [address] [id number] [place] [address] Apr, [facility] [place] [facility] [address] [id number] [place] [address] Apr, [facility] [place] [facility] [address] [facility] [id number] [place] [address] Apr, [facility] [place] [facility] [address] [id number] [place] [address] Apr, [facility] [place] [facility] [address] [facility] [id number] [place] [address] Apr, [facility] [place] [facility] [address] [facility] [id number] [place] [address] Apr, [facility] [place] [facility] [address] [id number] [place] [address] 9314 Mar, [facility] [place] [facility] [address] [id number] [place] [address]858 Mar, [facility] [place] [facility] [address] [id number] [place] [address]41 Mar, [facility] [place] [facility] [address] [id number] [place] [address]270 Mar, [facility] [place] [facility] [address] [facility] [id number] [place] [address] 18 Mar, 2013 [facility] [place] [facility] [address] [id number] [place] [address]- [address]06 18 Mar, 2012 [facility] [address] [id number] [place] [address]761 18 Mar, 2012 [facility] [place] [facility] [address] [id number] [place] [address] 8736 18 Mar, 2012 [facility] [place] [facility] [address] [id number] [place] [address]22 17 Mar, 2012 [facility] [place] [facility] [address] [id number] [place] [address] 17 Mar, 2012 [facility] [place] [facility] [address] [id number] [place] [address] 05 Mar, 2013 [facility] [place] [facility] [address] [id number] [place] [address] 05 Mar, 2013 [facility] [place] [facility] [address] [id number] [place] [address] 3746 04 Mar, 2013 [facility] [place] [facility] [address] [id number] [place] [address] 04 Mar, 2013 [facility] [place] [facility] [address] [id number] [place] [address] Mar, [facility] [place] [facility] [address] [facility] [id number] [place] [address] Mar, [facility] [place] [facility] [address] [id number] [place] [address] 1156 Mar, [facility] [place] [facility] [address] [id number] [place] [address] 1606 Mar, [facility] [place] [facility] [address] [id number] [place] [address] Jan, [facility] [place] [facility] [address] [id number] [place] [address] Jan, [facility] [place] [facility] [address] [id number] [place] [address] Jan, [facility] [place] [facility] [address] [id number] [place] [address] 68[address] Jan, [facility] [place] [facility] [address] [id number] [place] [address] Nov, [facility] [place] [facility] [address] [id number] [place] [address] 8611 Nov, [facility] [place] [facility] [address] [id number] [place] [address] 60[address] Nov, [facility] [place] [facility] [address] [id number] [place] [address] 8826 Nov, [facility] [place] [facility] [address] [id number] [place] [address] Oct, [facility] [place] [facility] [address] [id number] [place] [address] Oct, [facility] [place] [facility] [address] [id number] [place] [address] 3604 Oct, [facility] [place] [facility] [address] [id number] [place] [address] 275[address] Oct, [facility] [place] [facility] [address] [id number] [place] [address]- 79[address] Sep, [facility] [place] [facility] [address] [id number] [place] [address] 48[address] Sep, [facility] [place] [facility] [address] [id number] [place] [address] Sep, [facility] [place] [facility] [address] [id number] [place] [address]- 8955 Sep, [facility] [place] [facility] [address] [id number] [place] [address] 9860 Sep, [facility] [place] [facility] [address] [id number] [place] [address] 5573 Sep, [facility] [place] [facility] [address] [id number] [place] [address] 30[address] Sep, [facility] [address] [id number] [place] [address] 9365 Sep, [facility] [address] [id number] [place] [address]- [address]64 Sep, [facility] [address] [id number] [place] [address]338 Aug, [facility] [address] [id number] [place] [address]- [address]99 Aug, [facility] [address] [id number] [place] [address]- 9451 Aug, [facility] [address] [id number] [place] [address]- 4284 Aug, [facility] [address] [id number] [place] [address]- 7960 July, [facility] [address] [id number] [place] [address]- 8465 July, [facility] [address] [id number] [place] [address]- 6671 July, [facility] [address] [id number] [place] [address]561 July, [facility] [address] [id number] [place] [address]- 75[address] July, [facility] [address] [id number] [place] [address]- 9819 July, [facility] [place] [facility] [address] [id number] [place] [address]- 6[address] July, [facility] [place] [facility] [address] [id number] [place] [address] Jun, [facility] [address] [id number] [place] [address] May, [facility] [address] [facility] [id number] [place] [address] May, [facility] [address] [id number] [address] May, [facility] [address] [id number] [address] May, [facility] [address] [id number] [address] May, [facility] [address] [id number] [address] May, [facility] [id number] [address] May, [facility] [address] [id number] [address] May, IMMUNIZATIONS No Known Immunizations SOCIAL HISTORY Never Assessed REASON FOR VISIT Ed visit PLAN OF CARE VITAL SIGNS MEDICATIONS Unknown [...] [facility] 5 nights - unresponsive 11/2017 Hospitalization History [facility]- one week 03/2018 Hospitalization History [facility] 03/10-03/12/2019 Hospitalization History [facility] 05/2018
--- OUTSIDE RECORDS SUMMARY | 2018-07-14 17:55 | XMS REPORT ---
Author Author MCKENNA HEBERT Organization [facility] Address [address] [place] [address] Care Team Providers Care Lab Aide Name Role Phone MCKENNA HEBERT Unavailable PROBLEMS Type Condition ICD9-CM Code HAL84-DR Code Onset Dates Condition Status SNOMED Code Problem Cellulitis of right lower extremity L03.115 Active 444477781 Problem Neuropathy G62.9 Active 970618875 Problem Renal failure N19 Active 18977117 Problem Intra-dialytic hypotension I95.3 Active 604995949 Problem Amput below knee, unilat S88.119A Active 75647036 Problem Seasonal allergic rhinitis due to other allergic trigger J30.89 Active 111351465 Problem Chronic congestive heart failure, unspecified congestive heart failure type I50.9 Active 86686362 Problem Other chronic pain G89.29 Active 38797509 Problem 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 Active 1414353 Problem Primary insomnia F51.01 Active 2454330 Problem Paroxysmal atrial fibrillation I48.0 Active 871565264 Problem Angina pectoris I20.9 Active 826997226 Problem Type 2 diabetes mellitus with hyperglycemia, unspecified whether fci insulin use E11.65 Active 586271638869288 Problem Chronic congestive heart failure, unspecified heart failure type I50.9 Active 12103733 Problem Self-care deficit for toileting R46.0 Active 181683391 Problem Bronchitis J40 Active 12528002 Problem Observed sleep apnea G47.30 Active 99693415 Problem Unsteady gait R26.81 Active 717292265 ALLERGIES No Information ENCOUNTERS Encounter Location Date Diagnosis [facility] [address] [address] May, Encounter for Medicare annual wellness exam Z00.00 [facility] [id number] [address] May, [facility] [id number] [place] [address] 17847- 7017 13 May, 2018 Diabetes type 2, controlled E11.9 [facility] [address] [address]- [address] May, [facility] [id number] [place] [address] 23171- 5816 May, Pressure injury of coccygeal region, stage 2 L89.152 ; Nausea R11.0 ; Chronic congestive heart failure, unspecified congestive heart failure type I50.9 ; Observed sleep apnea G47.30 and Morbid obesity E66.01 [facility] [id number] [place] [address] [id number] May, [facility] [address] [address]- 3478 May, [facility] [address] [address]- 6782 May, [facility] [address] [address]- 8606 May, [facility] [address] [address]- 2393 May, [facility] [id number] [place] [address] 61912- 9471 18 May, 2018 Renal failure N19 [facility] [address] [address]- 4737 14 May, 2018 [facility] [id number] [place] [address] 42318- 2056 13 May, 2018 Neuropathy G62.9 and Renal failure N19 [facility] [address] [address]- 0736 08 May, 2018 [facility] [id number] [place] [address] 36352- 0315 07 May, 2018 [facility] [address] 29[address]- 5411 04 May, 2018 [facility] [id number] [place] [address] 92804- 7034 Apr, [facility] [id number] [place] [address] 29607- 2428 14 Apr, 2018 [facility] [address] [address]61- 4424 Apr, [facility] [address] 24028- 3009 Mar, Diabetes type 2, controlled E11.9 [facility] [address] [address]- 2141 Mar, Paroxysmal atrial fibrillation I48.0 ; Observed sleep apnea G47.30 ; Unsteady gait R26.81 and Bilious vomiting with nausea R11.14 [facility] [address] 7[address]- 0887 Mar, [facility] [id number] [place] [address] 46075- 7738 Mar, [facility] [id number] [place] [address] 33732- 5932 Mar, [facility] [id number] [place] [address] 27750- 6187 Mar, [facility] [id number] [place] [address] 63521- 3106 Mar, Diabetes type 2, controlled E11.9 ; BMI 50.0-59.9, adult Z68.43 ; Bronchitis J40 and Other chronic pain G89.29 [facility] [id number] [place] [address] 44004- 3066 Mar, [facility] [id number] [place] [address] 17555- 7194 05 Mar, 2018 [facility] [id number] [place] [address] 18942- 8153 Jan, [facility] [address], [place] [address]- 3425 Jan, [facility] [id number] [place] [address] 77992- 1524 Dec, [facility] [id number] [place] [address] 71436- 6356 Dec, [facility] [id number] [place] [address] 44825- 9621 Dec, [facility] [id number] [place] [address] 23630- 6984 Nov, Pneumonia due to infectious organism, unspecified laterality , unspecified part of lung J18.9 and Self-care deficit for toileting R46.0 [facility] [id number] [place] [address] 61960- 2222 Nov, [facility] [id number] [place] [address] 24290- 4325 Oct, Diabetes type 2, controlled E11.9 ; Primary insomnia F51.01 and Bilateral headaches R51 [facility] [id number] [place] [address] 20812- 9328 Oct, [facility] [id number] [place] [address] 73370- 2332 Sep, [facility] [address] [place] [address] [id number] Sep, Dental examination Z01.20 and Dental caries K02.9 [facility] [address] [address]- 8344 Sep, [facility] [id number] [place] [address] 08474- 1590 Sep, [facility] [address] [place] [address] 82853- 3966 Sep, Other chronic pain G89.29 and Pain in right knee M25.561 [facility] [address] [id number] [place] [address]- 4120 05 Sep, 2017 [facility] [address] [id number] [place] [address]- 6816 Aug, [facility] [address] [facility] [id number] [place] [address]- 0647 Aug, 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 [facility] [address] [id number] [place] [address] 46624- 9939 15 Aug, 2017 [facility] [address] [facility] [id number] [place] [address], [place] [address]- 9580 11 Aug, 2017 Diabetes type 2, controlled E11.9 and Acute pain of right knee M25.561 [facility] [address] [facility] [id number] [place] [address]- 2626 09 Aug, 2017 [facility] [address] [facility] [id number] [place] [address] 60895- 2858 July, [facility] [address] [facility] [id number] [place] [address]- 6837 16 Jun, 2017 [facility] [address] [facility] [id number] [address]- 6208 13 Jun, 2017 [facility] [address] [facility] [id number], [place] [address]- 7205 10 Jun, 2017 Diabetes type 2, controlled E11.9 [facility] [address] [facility] [id number], [place] [address]- 1909 Jun, [facility] [address] [facility] [id number] [place] [address]- 9917 May, [facility] [address] [facility] [id number] [address]- 8583 May, [facility] [address] [facility] [id number] [place] [address]- 1783 May, [facility] [id number] [place] [address] 29990- 9566 May, Chronic congestive heart failure, unspecified congestive heart failure type I50.9 [facility] [id number] [place] [address] 69051- 6039 May, Diabetes type 2, controlled E11.9 ; BMI 50.0-59.9, adult Z68.43 ; Chronic congestive heart failure, unspecified heart failure type I50.9 ; Angina pectoris I20.9 ; Seasonal allergic rhinitis due to other allergic trigger J30.89 and Renal failure N19 [facility] [id number] [place] [address] [id number] May, [facility] [address] 46637- 0695 May, [facility] [address] 20556- 5627 May, [facility] [id number] [place] [address] 53772- 5137 May, [facility] [id number] [place] [address] 16212- 8404 May, [facility] [id number] [place] [address] 02401- 5529 Apr, BMI 50.0-59.9, adult Z68.43 [facility] [id number] [place] [address] 14659- 5092 Apr, BMI 50.0-59.9, adult Z68.43 ; Post-procedural fever R50.82 and Bronchitis J40 [facility] [id number] [place] [address] 11855- 6600 Apr, Chronic congestive heart failure, unspecified congestive heart failure type I50.9 [facility] [id number] [place] [address] 47070- 5652 Jan, [facility] [id number] [place] [address] 37370- 2034 Jan, Diabetes type 2, controlled E11.9 [facility] [address] [id number] [place] [address]- 1714 Jan, Neuropathy G62.9 [facility] [address] [id number] [place] [address]- 2645 Jan, [facility] [address] [id number] [place] [address]- 3427 Jan, [facility] [address] [id number] [place] [address]- 3637 Jan, [facility] [id number] [place] [address], [place] [address]- 5886 Jan, [facility] [address] [id number] [place] [address]- 8270 Jan, [facility] [address] [facility] [id number] [place] [address] 37327- 5591 Dec, [facility] [address] [id number] [address]- 7440 Dec, [facility] [address] [facility] [id number], [place] [address]- 7134 Dec, Diabetes type 2, controlled E11.9 [facility] [address] [id number] [place] [address]- 4428 Dec, [facility] [address] [facility] [id number], [place] [address]- 8061 Dec, [facility] [address] [facility] [id number], [place] [address]- 0738 Dec, Chronic congestive heart failure, unspecified congestive heart failure type I50.9 [facility] [address] [facility] [id number], [place] [address]- 6239 Dec, [facility] [address] [facility] [id number], [place] [address]- 2223 Dec, [facility] [address] [facility] [id number], [place] [address]- 8418 Nov, Chronic congestive heart failure, unspecified congestive heart failure type I50.9 [facility] [address] [facility] [id number] [address]- 4519 Nov, Chronic congestive heart failure, unspecified congestive heart failure type I50.9 [facility] [address] [facility] [id number], [place] [address]- 2819 Nov, [facility] [address] [facility] [id number], [place] [address]- 9948 Oct, [facility] [address] [facility] [id number], [place] [address]- 3386 Oct, [facility] [id number] [address]- 6819 Oct, Chronic congestive heart failure, unspecified congestive heart failure type I50.9 [facility] [address] [facility] [id number], [place] [address]- 6375 Oct, [facility] [address] [facility] [id number], [place] [address]- 3905 Oct, Pneumonia of both lungs due to infectious organism, unspecified part of lung J18.9 [facility] [address] [id number] [address]- 3602 Oct, [facility] [address] [facility] [id number], [place] [address]- 4152 Oct, Diabetes type 2, controlled E11.9 [facility] [address] [facility] [id number], [place] [address]- 8162 Oct, Diabetes type 2, controlled E11.9 [facility] [address] [facility] [id number], [place] [address]- 9684 Sep, [facility] [id number] [address]- 3685 Sep, Neuropathy G62.9 [facility] [address], [place] [address]- 4616 Aug, Intra-dialytic hypotension I95.3 [facility] [address] [address]- 3246 July, [facility] [id number] [address]- 2546 July, [facility] [id number] [place] [address] 78760 2546 July, [facility] [id number] [place] [address] 43758- 4246 July, Amput below knee, unilat S88.119A [facility] [address] [address]- 4736 May, [facility] [id number] [place] [address] 35701- 6356 May, Neuropathy G62.9 [facility] [address], [place] [address]- 1136 May, [facility] [address], [place] [address]- 7476 May, [facility] [address], [place] [address]- 0066 May, [facility] [address], [place] [address]- 5446 May, [facility] [address], [place] [address]- 2546 May, Neuropathy G62.9 [facility] [address], [place] [address]- 4546 Apr, [facility] [address], [place] [address] 2546 Apr, [facility] [address] [address]- 0511 Apr, Diabetes type 2, controlled E11.9 and Renal failure N19 [facility] [address] [facility] [id number] [place] [address] -4106 Apr, [facility] [id number] [address]- 9134 Apr, [facility] [id number] [place] [address], [place] [address]- 6229 Mar, [facility] [address] [facility] [id number] [place] [address], [place] [address]- 2989 Mar, [facility] [id number] [place] [address], [place] [address]- 0494 Mar, [facility] [id number] [place] [address], [place] [address]- 0842 Mar, [facility] [id number] [place] [address], [place] [address]- 4366 Mar, [facility] [id number] [place] [address], [place] [address]- 9777 Jan, Localized edema R60.0 [facility] [id number] [place] [address], [place] [address]- 9729 Jan, [facility] [id number] [address]- 2164 Jan, [facility] [address] [address]- 5777 Jan, [facility] [address], [place] [address]- 7927 Jan, [facility] [id number] [place] [address], [place] [address]- 2385 Jan, [facility] [address] [address]- 5752 Jan, [facility] [id number] [place] [address] 16426- 4184 Dec, Diabetes type 2, controlled E11.9 and Chronic nonintractable headache, unspecified headache type R51 [facility] [id number] [place] [address] 61554- 0810 Dec, [facility] [id number] [place] [address] 39032- 2257 Dec, [facility] [id number] [place] [address] 39407- 5767 Nov, [facility] [id number] [place] [address] 34183- 9249 Nov, [facility] [id number] [place] [address] 46779- 6612 Oct, [facility] [id number] [place] [address] 77508- 5175 Oct, Migraine without status migrainosus, not intractable, unspecified migraine type G43.909 [facility] [id number] [place] [address] 35509- 1060 Oct, [facility] [id number] [place] [address] 82151- 5014 Sep, Amput below knee, unilat S88.119A and Neuropathy G62.9 [facility] [id number] [place] [address] 58164- 3852 Sep, [facility] [id number] [place] [address] 73324- 6198 Sep, [facility] [id number] [place] [address] 90538- 7528 Sep, [facility] [id number] [place] [address] 53632- 1093 Aug, [facility] [id number] [place] [address] 11789- 2592 Aug, [facility] [id number] [place] [address] 91727- 4953 Aug, Diabetes type 2, controlled E11.9 [facility] [address] [facility] [id number] [place] [address]- 4199 Aug, [facility] [address] [facility] [id number] [place] [address]- 8742 Jun, Diabetes type 2, controlled E11.9 and Neuropathy G62.9 [facility] [address] [facility] [id number] [place] [address]- 9469 Jun, [facility] [address] [id number] [place] [address]- 5903 Jun, [facility] [address] [facility] [id number] [place] [address]- 5241 Jun, [facility] [address] [facility] [id number] [place] [address]- 8535 Jun, [facility] [address] [facility] [id number], [place] [address]- 4934 May, [facility] [address] [facility] [id number] [place] [address]- 3502 May, Diabetes type 2, controlled E11.9 [facility] [address] [facility] [id number] [place] [address]- 2859 May, [facility] [address] [facility] [id number], [place] [address]- 7485 May, [facility] [address] [facility] [id number], [place] [address]- 1920 May, [facility] [address] [facility] [id number] [place] [address]- 1440 May, [facility] [address] [facility] [id number], [place] [address]- 7206 May, [facility] [address] [facility] [id number] [place] [address] May, [facility] [id number] [address] 16 May, 2015 [facility] [id number] [place] [address] May, COPD (chronic obstructive pulmonary disease) J44.9 [facility] [id number] [address] May, [facility] [address] [address] May, [facility] [id number] [address] May, [facility] [id number] [address] May, [facility] [address] [address] May, [facility] [id number] [address] May, Renal failure N19 and Pneumonia, organism unspecified, unspecified laterality, unspecified part of lung J18.9 [facility] [address] [address] Apr, [facility] [id number] [address] Apr, [facility] [id number], [place] [address] Apr, [facility] [address] [address] Apr, Diabetes mellitus 250.00 [facility] [id number] [address] Apr, [facility] [id number] [address] Apr, [facility] [id number] [address] 13 Apr, 2015 [facility] [address] [id number] [place] [address] 07 Apr, 2015 [facility] [place] [facility] [address] [id number] [place] [address] 31 Mar, 2015 [facility] [place] [facility] [address] [id number] [place] [address] 28 Mar, 2015 [facility] [place] [facility] [address] [id number] [place] [address] 23 Mar, 2015 [facility] [place] [facility] [address] [id number] [place] [address], [place] [address]- [address] 16 Mar, 2015 Renal failure N19 [facility] [place] [facility] [address] [facility] [id number] [place] [address] 14 Mar, 2015 [facility] [place] [facility] [address] [facility] [id number] [place] [address], [place] [address]- [address] Mar, [facility] [place] [facility] [address] [id number] [place] [address] 04 Mar, 2015 [facility] [place] [facility] [id number] [address]- [address] 24 Jan, 2015 [facility] [place] [facility] [address] [facility] [id number] [place] [address] 18 Jan, 2015 [facility] [place] [facility] [address] [facility] [id number] [place] [address] 17 Jan, 2015 [facility] [place] [facility] [address] [id number] [place] [address] 13 Jan, 2015 [facility] [place] [facility] [address] [id number] [place] [address] Dec, [facility] [place] [facility] [address] [facility] [id number] [place] [address]- [address] Dec, [facility] [place] [facility] [address] [facility] [id number] [place] [id number] Dec, [facility] [address] [id number] [address] Nov, [facility] [id number] [address] Nov, [facility] [id number] [address] Nov, [facility] [address] [facility] [id number] [place] [address], [place] [address]- 3958 Oct, [facility] [id number] [address] 3438 Oct, [facility] [id number] [place] [address]- 5810 Oct, Renal failure 586 and Obesity 278.00 [facility] [id number] [place] [address]- 3500 Oct, [facility] [id number] [address] 279[address] Oct, [facility] [id number] [address] 2449 Oct, [facility] [id number] [address] Sep, [facility] [id number] [address] Sep, [facility] [id number] [address] Sep, Diabetes mellitus 250.00 and Congestive heart failure, unspecified 428.0 [facility] [id number] [address] Aug, [facility] [id number], [place] [address] 88[address] Aug, [facility] [id number], [place] [address] 2892 Aug, [facility] [address] [id number] [place] [address] 455[address] July, [facility] [address] [id number] [place] [address]- 6987 July, [facility] [address] [id number] [place] [address]- 7[address] July, Heart murmur, systolic 785.2 [facility] [address] [id number] [place] [address] 9[address] July, [facility] [address] [id number] [place] [address]- 4606 July, [facility] [address] [id number] [place] [address]- 6856 Jun, [facility] [address] [id number] [place] [address]- 0708 Jun, [facility] [address] [id number] [place] [address]- 8395 May, [facility] [address] [id number] [place] [address]- 7507 23 May, 2014 [facility] [address] [id number] [place] [address]- 4132 18 May, 2014 [facility] [address] [id number] [place] [address]- 5483 18 May, 2014 [facility] [address] [id number] [place] [address]- 3935 16 May, 2014 [facility] [place] [facility] [address] [id number] [place] [address]- 2001 16 May, 2014 [facility] [address] [id number] [place] [address]- 2255 10 May, 2014 [facility] [address] [id number] [place] [address]- 5280 10 May, 2014 [facility] [place] [facility] [address] [id number] [place] [address]- 8168 May, 2014 [facility] [place] [facility] [address] [id number] [place] [address]- 6198 May, 2014 [facility] [place] [facility] [address] [id number] [place] [address]- 9730 May, 2014 [facility] [place] [facility] [address] [id number] [place] [address]- 0479 May, 2014 [facility] [place] [facility] [address] [id number] [place] [address]- 9133 May, 2014 [facility] [place] [facility] [address] [id number] [place] [address]- 5021 May, 2014 [facility] [place] [facility] [address] [facility] [id number] [place] [address]- 2200 18 May, 2014 [facility] [place] [facility] [address] [id number] [place] [address]- 7341 May, 2014 [facility] [place] [facility] [address] [id number] [place] [address]- 2635 May, 2014 [facility] [place] [facility] [address] [facility] [id number] [place] [address]- 9910 May, 2014 [facility] [place] [facility] [address] [facility] [id number] [place] [address]- 3188 May, 2014 [facility] [place] [facility] [address] [id number] [place] [address]- 8908 May, 2014 [facility] [place] [facility] [address] [id number] [place] [address]- 5293 16 May, 2014 [facility] [place] [facility] [address] [id number] [place] [address]- 2752 16 May, 2014 [facility] [place] [facility] [address] [facility] [id number] [place] [address]- 7597 11 May, 2014 [facility] [place] [facility] [address] [id number] [place] [address]- 8576 May, 2014 [facility] [place] [facility] [address] [id number] [place] [address]- 7012 May, [facility] [place] [facility] [address] [id number] [place] [address]- 2546 May, [facility] [place] [facility] [address] [id number] [place] [address]- 2849 Apr, [facility] [place] [facility] [address] [id number] [place] [address]- 5491 Apr, [facility] [place] [facility] [address] [id number] [place] [address]- 7651 Apr, [facility] [place] [facility] [address] [id number] [place] [address]- 9622 Apr, [facility] [place] [facility] [address] [id number] [place] [address]- 7747 Apr, [facility] [place] [facility] [address] [id number] [place] [address]- 1790 Apr, [facility] [place] [facility] [address] [id number] [place] [address]- 5368 Apr, [facility] [place] [facility] [address] [id number] [place] [address]- 3298 Apr, [facility] [place] [facility] [address] [id number] [place] [address]- 3475 Mar, [facility] [place] [facility] [address] [id number] [place] [address]- 7916 Mar, [facility] [place] [facility] [address] [id number] [place] [address]- 7796 Mar, [facility] [place] [facility] [address] [id number] [place] [address]- 1406 Mar, [facility] [place] [facility] [address] [id number] [place] [address]- 1827 Mar, [facility] [place] [facility] [address] [id number] [place] [address]- 5020 Mar, [facility] [place] [facility] [address] [id number] [place] [address]- 0448 Mar, [facility] [place] [facility] [address] [id number] [place] [address]- 4093 Mar, [facility] [place] [facility] [address] [id number] [place] [address]- 6856 Mar, [facility] [place] [facility] [address] [id number] [place] [address]- 7565 Mar, [facility] [place] [facility] [address] [id number] [place] [address]- 6045 Mar, [facility] [place] [facility] [address] [id number] [place] [address]- 2926 Mar, [facility] [place] [facility] [address] [id number] [place] [address]- 4799 Mar, [facility] [place] [facility] [address] [id number] [place] [address]- 3616 Mar, [facility] [place] [facility] [address] [id number] [place] [address]- 9611 Mar, [facility] [place] [facility] [address] [id number] [place] [address]- 0502 Mar, [facility] [place] [facility] [address] [id number] [place] [address]- 5327 Mar, [facility] [place] [facility] [address] [id number] [place] [address]- 6893 Mar, [facility] [place] [facility] [address] [id number] [place] [address]- 2424 Mar, [facility] [place] [facility] [address] [id number] [place] [address]- 3821 Mar, [facility] [place] [facility] [address] [id number] [place] [address]- 2905 Mar, [facility] [place] [facility] [address] [id number] [place] [address]- 1470 Mar, [facility] [place] [facility] [address] [id number] [place] [address]- 0816 Jan, [facility] [place] [facility] [address] [id number] [place] [address]- 5410 Jan, [facility] [place] [facility] [address] [id number] [place] [address]- 2626 Jan, [facility] [place] [facility] [address] [id number] [place] [address]- 1987 Jan, [facility] [place] [facility] [address] [id number] [place] [address]- 7490 Jan, [facility] [place] [facility] [address] [id number] [place] [address]- 6639 Jan, [facility] [place] [facility] [address] [id number] [place] [address]- 8829 Jan, [facility] [place] [facility] [address] [id number] [place] [address]- 0597 Jan, [facility] [place] [facility] [address] [facility] [id number] [place] [address]- 7783 Jan, [facility] [place] [facility] [address] [id number] [place] [address]- 4140 Jan, [facility] [place] [facility] [address] [id number] [address]- 0916 Jan, [facility] [place] [facility] [address] [id number] [place] [address]- 9030 Jan, [facility] [place] [facility] [address] [id number] [place] [address]- 1767 Jan, [facility] [place] [facility] [address] [id number] [address]- 7531 Jan, [facility] [place] [facility] [address] [id number] [place] [address]- 9214 Jan, [facility] [place] [facility] [address] [id number] [place] [address]- 4417 Jan, [facility] [place] [facility] [address] [id number] [place] [address]- 7019 Jan, [facility] [place] [facility] [address] [id number] [place] [address]- 7335 Jan, [facility] [place] [facility] [address] [id number] [place] [address]- 5343 Jan, [facility] [place] [facility] [address] [id number] [place] [address]- 8082 Jan, [facility] [place] [facility] [address] [id number] [place] [address]- 8685 Dec, [facility] [place] [facility] [address] [id number] [place] [address]- 7320 Dec, [facility] [place] [facility] [address] [id number] [place] [address]- 8521 Dec, [facility] [place] [facility] [address] [id number] [place] [address]- 4624 Dec, [facility] [place] [facility] [address] [id number] [place] [address]- 0347 Dec, [facility] [place] [facility] [address] [id number] [place] [address]- 6649 Dec, [facility] [place] [facility] [address] [id number] [place] [address]- 2908 14 Dec, 2013 [facility] [place] [facility] [address] [id number] [place] [address]- 1842 Dec, [facility] [place] [facility] [address] [id number] [place] [address]- 3366 10 Dec, 2013 [facility] [place] [facility] [address] [id number] [place] [address]- 0627 08 Dec, 2013 [facility] [place] [facility] [address] [id number] [place] [address]- 9460 08 Dec, 2013 [facility] [place] [facility] [address] [id number] [place] [address]- 6936 Dec, [facility] [place] [facility] [address] [id number] [place] [address]- 3795 Dec, [facility] [place] [facility] [address] [id number] [place] [address]- 3844 Dec, [facility] [place] [facility] [address] [id number] [place] [address]- 6435 Dec, [facility] [place] [facility] [address] [id number] [place] [address]- 8674 22 Nov, 2013 [facility] [place] [facility] [address] [id number] [place] [address]- 1533 22 Nov, 2013 [facility] [place] [facility] [address] [id number] [place] [address]- 9443 19 Nov, 2013 [facility] [place] [facility] [address] [id number] [place] [address]- 7296 19 Nov, 2013 [facility] [place] [facility] [address] [id number] [place] [address]- 6830 13 Nov, 2013 [facility] [place] [facility] [address] [id number] [place] [address]- 8962 13 Nov, 2013 [facility] [place] [facility] [address] [id number], [place] [address]- 2543 10 Nov, 2013 [facility] [place] [facility] [address] [id number] [place] [address] 2546 10 Nov, 2013 [facility] [place] [facility] [address] [id number] [place] [address]- 6634 08 Nov, 2013 [facility] [place] [facility] [address] [id number] [place] [address]- 2549 05 Sep, 2013 [facility] [place] [facility] [address] [id number] [place] [address]- 1379 Nov, [facility] [place] [facility] [address] [id number] [place] [address]- 0415 Nov, [facility] [place] [facility] [address] [id number] [place] [address]- 5620 Nov, [facility] [place] [facility] [address] [id number] [place] [address]- 0563 Oct, [facility] [place] [facility] [address] [id number] [place] [address]- 5364 Oct, [facility] [place] [facility] [address] [id number] [place] [address]- 1215 Oct, [facility] [place] [facility] [address] [id number] [place] [address]- 1876 Oct, [facility] [place] [facility] [address] [id number] [place] [address]- 4784 Oct, [facility] [place] [facility] [address] [id number] [place] [address]- 9626 Sep, [facility] [place] [facility] [address] [id number] [place] [address]- 6217 Sep, [facility] [place] [facility] [address] [id number] [place] [address]- 8562 Sep, [facility] [place] [facility] [address] [id number] [place] [address]- 7160 Sep, [facility] [place] [facility] [address] [id number] [place] [address]- 2632 Aug, [facility] [place] [facility] [address] [id number] [place] [address]- 6358 Aug, [facility] [place] [facility] [address] [id number] [place] [address]- 3248 Aug, [facility] [place] [facility] [address] [id number] [place] [address]- 6225 Aug, [facility] [place] [facility] [address] [id number] [place] [address]- 3043 Aug, [facility] [place] [facility] [address] [id number] [place] [address]- 3377 Aug, [facility] [place] [facility] [address] [id number] [place] [address]- 5036 Aug, [facility] [place] [facility] [address] [id number] [place] [address]- 6941 Aug, [facility] [place] [facility] [address] [id number] [place] [address]- 8653 Aug, [facility] [place] [facility] [address] [id number] [place] [address]- 0198 Aug, [facility] [place] [facility] [address] [id number] [place] [address]- 7502 Aug, [facility] [place] [facility] [address] [id number] [place] [address]- 4142 Aug, [facility] [place] [facility] [address] [id number] [place] [address]- 2834 Aug, [facility] [place] [facility] [address] [id number] [place] [address]- 4266 Aug, [facility] [place] [facility] [address] [id number], [place] [address]- 1572 Aug, [facility] [place] [facility] [address] [id number], [place] [address]- 8602 Aug, [facility] [place] [facility] [address] [id number] [place] [address]- 1109 Aug, [facility] [place] [facility] [address] [id number] [place] [address]- 9594 Aug, [facility] [place] [facility] [address] [id number], [place] [address]- 3699 Aug, [facility] [place] [facility] [address] [id number], [place] [address]- 5127 Aug, [facility] [place] [facility] [address] [id number] [place] [address]- 1248 Aug, [facility] [place] [facility] [address] [id number] [place] [address]- 0793 Aug, [facility] [place] [facility] [address] [id number] [place] [address]- 4755 Aug, [facility] [place] [facility] [address] [id number] [place] [address]- 3669 Aug, [facility] [place] [facility] [address] [id number] [place] [address]- 6586 July, [facility] [place] [facility] [address] [id number] [place] [address]- 0914 July, [facility] [place] [facility] [address] [id number] [place] [address]- 9656 July, [facility] [place] [facility] [address] [id number] [place] [address]- 4493 July, [facility] [place] [facility] [address] [id number] [place] [address]- 1995 July, [facility] [place] [facility] [address] [id number] [place] [address]- 1290 July, [facility] [place] [facility] [address] [id number] [place] [address]- 3678 Jun, [facility] [place] [facility] [address] [id number] [place] [address]- 8754 Jun, [facility] [place] [facility] [address] [id number] [place] [address]- 0261 Jun, [facility] [place] [facility] [address] [id number] [place] [address]- 6719 Jun, [facility] [place] [facility] [address] [id number] [place] [address]- 9630 Jun, [facility] [place] [facility] [address] [id number] [place] [address]- 8933 Jun, [facility] [place] [facility] [address] [id number] [place] [address]- 2475 Jun, [facility] [place] [facility] [address] [id number] [place] [address]- 5886 Jun, [facility] [place] [facility] [address] [id number] [place] [address]- 9457 Jun, [facility] [place] [facility] [address] [id number] [place] [address]- 2625 Jun, [facility] [place] [facility] [address] [id number] [place] [address]- 6423 Jun, [facility] [place] [facility] [address] [id number] [place] [address]- 6081 Jun, [facility] [place] [facility] [address] [id number] [place] [address]- 3100 Jun, [facility] [place] [facility] [address] [id number] [place] [address]- 3610 Jun, [facility] [place] [facility] [address] [id number] [place] [address]- 2018 Jun, [facility] [place] [facility] [address] [id number] [place] [address]- 1579 May, [facility] [place] [facility] [address] [id number] [place] [address]- 9892 May, [facility] [place] [facility] [address] [id number] [place] [address]- 5869 May, [facility] [place] [facility] [address] [id number] [place] [address]- 4920 May, [facility] [place] [facility] [address] [id number] [place] [address]- 9431 May, [facility] [place] [facility] [address] [id number] [place] [address]- 7983 May, [facility] [place] [facility] [address] [id number] [place] [address]- 5126 May, [facility] [place] [facility] [address] [id number] [place] [address]- 3674 May, [facility] [place] [facility] [address] [id number] [place] [address] May, [facility] [place] [facility] [address] [id number] [place] [address] May, [facility] [place] [facility] [address] [id number] [place] [address] May, [facility] [place] [facility] [address] [id number] [place] [address]- [address] May, [facility] [place] [facility] [address] [id number] [place] [address]643 May, [facility] [place] [facility] [address] [id number] [place] [address] 3766 May, [facility] [place] [facility] [address] [id number] [place] [address] 58[address] May, [facility] [place] [facility] [address] [id number] [place] [address]58 May, [facility] [place] [facility] [address] [id number] [place] [address]- [address] May, [facility] [place] [facility] [address] [id number] [place] [address] Apr, [facility] [place] [facility] [address] [id number] [place] [address]- [address]365 Apr, [facility] [place] [facility] [address] [id number] [place] [address]- [address]63 Apr, [facility] [place] [facility] [address] [id number] [place] [address] Apr, [facility] [place] [facility] [address] [id number] [place] [address]80 10 Apr, 2013 [facility] [address] [id number] [place] [address]396 Apr, [facility] [place] [facility] [address] [id number] [place] [address] 7635 Apr, [facility] [address] [id number] [place] [address]- [address]239 Apr, [facility] [address] [id number] [place] [address]- 278[address] Apr, [facility] [address] [id number] [place] [address]- 3315 Apr, [facility] [address] [id number] [place] [address] 6495 Apr, [facility] [address] [id number] [place] [address]- 7484 Apr, [facility] [address] [id number] [place] [address]- [address]001 Apr, [facility] [address] [id number] [place] [address]- 2785 Apr, [facility] [address] [id number] [place] [address]- 8643 Apr, [facility] [address] [id number] [place] [address]- [address] Apr, [facility] [address] [id number] [place] [address] 22[address] Mar, [facility] [place] [facility] [address] [id number] [place] [address] 84[address] Mar, [facility] [place] [facility] [address] [id number] [place] [address] Mar, [facility] [address] [id number] [place] [address]- 3182 Mar, [facility] [address] [id number] [place] [address]- [address] 18 Mar, 2013 [facility] [place] [facility] [address] [id number] [place] [address]- [address]191 Mar, [facility] [place] [facility] [address] [id number] [place] [address]- 2535 18 Mar, 2013 [facility] [place] [facility] [address] [id number] [place] [address]- 1556 Mar, [facility] [place] [facility] [address] [id number] [place] [address]- 2810 Mar, [facility] [place] [facility] [address] [id number] [place] [address]- 1668 Mar, [facility] [place] [facility] [address] [id number] [place] [address]- 7681 Mar, [facility] [place] [facility] [address] [id number] [place] [address]- [address]275 05 Mar, 2013 [facility] [place] [facility] [address] [id number] [place] [address]- 8525 Mar, [facility] [place] [facility] [address] [id number] [place] [address]- 4797 Mar, [facility] [place] [facility] [address] [id number] [place] [address]- 8264 Mar, [facility] [place] [facility] [address] [id number] [address] Mar, [facility] [place] [facility] [address] [id number] [place] [address]- 8340 Mar, [facility] [place] [facility] [address] [id number] [place] [address]- [address]16 Mar, [facility] [place] [facility] [address] [id number] [place] [address]- 8473 Jan, [facility] [place] [facility] [address] [id number] [place] [address]- 8151 Jan, [facility] [address] [id number] [place] [address]- 8882 Jan, [facility] [place] [facility] [address] [id number] [place] [address]- 8385 Jan, [facility] [place] [facility] [address] [id number] [place] [address]- 4382 Nov, [facility] [place] [facility] [address] [id number] [place] [address]- 4668 Nov, [facility] [place] [facility] [address] [id number] [place] [address]- 8545 Nov, [facility] [place] [facility] [address] [id number] [place] [address]- 1168 Nov, [facility] [address] [id number] [place] [address]- [address]36 Oct, [facility] [place] [facility] [address] [id number] [place] [address]- 1062 Oct, [facility] [place] [facility] [address] [id number] [place] [address]- 8398 Oct, [facility] [place] [facility] [address] [id number] [place] [address]- 9118 Oct, [facility] [place] [facility] [address] [id number] [place] [address]- 9936 Sep, [facility] [place] [facility] [address] [id number] [place] [address]- 4737 Sep, [facility] [place] [facility] [address] [id number] [place] [address]- 8323 Sep, [facility] [place] [facility] [address] [id number] [place] [address]- 8858 Sep, [facility] [place] [facility] [address] [id number] [place] [address]- 0394 Sep, [facility] [place] [facility] [address] [id number] [place] [address]- 9672 Sep, [facility] [place] [facility] [address] [id number] [place] [address]- 6276 Sep, [facility] [place] [facility] [address] [id number] [place] [address]- 6883 Sep, [facility] [place] [facility] [address] [id number] [place] [address]- 8785 Sep, [facility] [place] [facility] [address] [id number] [place] [address]- 1046 Aug, [facility] [place] [facility] [address] [id number] [place] [address]- 2263 Aug, [facility] [place] [facility] [address] [id number] [place] [address]- 5795 Aug, [facility] [address] [id number] [place] [address]- 5362 Aug, [facility] [address] [id number] [place] [address]- 0186 July, [facility] [address] [id number] [place] [address]- 3359 July, [facility] [address] [id number] [place] [address]- 1615 July, [facility] [place] [facility] [address] [id number] [place] [address] 6612 July, [facility] [place] [facility] [address] [id number] [place] [address] July, [facility] [place] [facility] [address] [id number] [place] [address] July, [facility] [place] [facility] [address] [id number] [place] [address] July, [facility] [place] [facility] [address] [id number] [place] [address] Jun, [facility] [address] [facility] [id number] [address] May, [facility] [address] [id number] [address] May, [facility] [address] [id number], [place] [address] May, [facility] [id number] [address] May, [facility] [address] [id number], [place] [address] May, [facility] [id number], [place] [address] May, [facility] [address] [id number], [place] [address] May, [facility] [address] [id number], [place] [address] May, IMMUNIZATIONS No Known Immunizations SOCIAL [...] 03/2015 Hospitalization History Pneumonia 04/2015 Hospitalization History [facility] 5 nights - unresponsive 11/2017 Hospitalization History [facility]- one week 03/2018 Hospitalization History [facility] 03/10-03/12/2019 Hospitalization History [facility] ER 05/2018
--- OUTSIDE RECORDS SUMMARY | 2018-07-14 17:56 | XMS REPORT ---
Author Author Migration, Doctor Organization [facility] Address Unknown Phone Unavailable Care Team Providers Care Hull Drafter Name Role Phone Migration, Doctor Unavailable Unavailable PROBLEMS Type Condition ICD9-CM Code WSS06-FB Code Onset Dates Condition Status SNOMED Code Problem Cellulitis of right lower extremity L03.115 Active 135490802 Problem Neuropathy G62.9 Active 048448115 Problem Renal failure N19 Active 89387133 Problem Intra-dialytic hypotension I95.3 Active 387220175 Problem Amput below knee, unilat S88.119A Active 69790001 Problem Seasonal allergic rhinitis due to other allergic trigger J30.89 Active 382708002 Problem Chronic congestive heart failure, unspecified congestive heart failure type I50.9 Active 01963308 Problem Other chronic pain G89.29 Active 23966920 Problem 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 Active 5959316 Problem Primary insomnia F51.01 Active 7937367 Problem Paroxysmal atrial fibrillation I48.0 Active 834094504 Problem Angina pectoris I20.9 Active 400843505 Problem Type 2 diabetes mellitus with hyperglycemia, unspecified whether correction insulin use E11.65 Active [id number] Problem Chronic congestive heart failure, unspecified heart failure type I50.9 Active 20380746 Problem Self-care deficit for toileting R46.0 Active 457795855 Problem Bronchitis J40 Active 52251725 Problem Observed sleep apnea G47.30 Active 82005715 Problem Unsteady gait R26.81 Active [id number] ALLERGIES No Information ENCOUNTERS Encounter Location Date Diagnosis [facility] [address] [facility] [id number] [address] May, Encounter for Medicare annual wellness exam Z00.00 [facility] [address] [facility] [id number], [place] [address] May, [facility] [address] [facility] [place] [id number], [place] [address] 13 May, 2018 Diabetes type 2, controlled E11.9 [facility] [id number] [place] [address] 78270- 0676 May, [facility] [id number] [place] [address] 38273- 6585 May, Pressure injury of coccygeal region, stage 2 L89.152 ; Nausea R11.0 ; Chronic congestive heart failure, unspecified congestive heart failure type I50.9 ; Observed sleep apnea G47.30 and Morbid obesity E66.01 [facility] [id number] [place] [address] [id number] May, [facility] [id number] [place] [address] 97215- 7088 May, [facility] [id number] [place] [address] 14162- 3877 May, [facility] [id number] [place] [address] 14583- 5619 May, [facility] [id number] [place] [address] 71921- 1210 May, [facility] [id number] [place] [address] 16605- 7676 May, Renal failure N19 [facility] [id number] [place] [address] 54596- 7332 14 May, 2018 [facility] [id number] [place] [address] 76941- 1058 13 May, 2018 Neuropathy G62.9 and Renal failure N19 [facility] [id number] [place] [address] 71760- 5404 08 May, 2018 [facility] [id number] [place] [address] 61915- 2401 May, [facility] [id number] [place] [address] 80748- 6270 04 May, 2018 [facility] [id number] [place] [address] 71545- 2151 Apr, [facility] [id number] [place] [address] 66263- 9045 Apr, [facility] [id number] [place] [address] 46961- 9065 Apr, [facility] [id number] [place] [address] 70985- 4800 Mar, Diabetes type 2, controlled E11.9 [facility] [id number] [place] [address] 95578- 4014 Mar, Paroxysmal atrial fibrillation I48.0 ; Observed sleep apnea G47.30 ; Unsteady gait R26.81 and Bilious vomiting with nausea R11.14 [facility] [id number] [place] [address] 76183- 9991 Mar, [facility] [id number] [place] [address] 00842- 5389 Mar, [facility] [id number] [place] [address] 22992- 4885 Mar, [facility] [id number] [place] [address] 77489- 1555 Mar, [facility] [id number] [place] [address] 55483- 9098 Mar, Diabetes type 2, controlled E11.9 ; BMI 50.0-59.9, adult Z68.43 ; Bronchitis J40 and Other chronic pain G89.29 [facility] [id number] [place] [address] 92279- 1624 Mar, [facility] [id number] [place] [address] 24103- 6011 05 Mar, 2018 [facility] [id number] [place] [address] 03830- 9224 Jan, [facility] [address] [place] [address]- 3101 Jan, [facility] [id number] [place] [address] 35909- 0757 Dec, [facility] [id number] [place] [address] 97683- 6404 Dec, [facility] [id number] [place] [address] 47160- 0776 Dec, [facility] [id number] [place] [address] 53571- 1607 Nov, Pneumonia due to infectious organism, unspecified laterality , unspecified part of lung J18.9 and Self-care deficit for toileting R46.0 [facility] [id number] [place] [address] 16583- 2135 Nov, [facility] [id number] [place] [address] 82382- 0610 Oct, Diabetes type 2, controlled E11.9 ; Primary insomnia F51.01 and Bilateral headaches R51 [facility] [id number] [place] [address] 08612- 2828 Oct, [facility] [id number] [place] [address] 91095- 3981 Sep, [facility] [address] [place] [address] [id number] Sep, Dental examination Z01.20 and Dental caries K02.9 [facility] [address] [place] [address] 83625- 2708 Sep, [facility] [id number] [place] [address] 98201- 2178 Sep, [facility] [id number] [place] [address] 58539- 1500 Sep, Other chronic pain G89.29 and Pain in right knee M25.561 [facility] [id number] [place] [address] 38506- 5887 Sep, [facility] [address] [address]- 6022 Aug, [facility] [address] [address]- 3235 Aug, 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 [facility] [address], [place] [address]- 1707 15 Aug, 2017 [facility] [address] [address]- 7926 Aug, Diabetes type 2, controlled E11.9 and Acute pain of right knee M25.561 [facility] [address], [place] [address]- 8790 Aug, [facility] [address] [address]- 0714 July, [facility] [address] [address]- 8898 16 Jun, 2017 [facility] [address] [address]- 6627 Jun, [facility] [address] [address]- 7175 10 Jun, 2017 Diabetes type 2, controlled E11.9 [facility] [address] [address]- 3971 Jun, [facility] [id number] [address]- 6042 May, [facility] [address] [address]- 1519 May, [facility] [address] [address]- 9846 May, [facility] [address] [address]- 2212 May, Chronic congestive heart failure, unspecified congestive heart failure type I50.9 [facility] [address] [place] [address] 37787- 1405 May, Diabetes type 2, controlled E11.9 ; BMI 50.0-59.9, adult Z68.43 ; Chronic congestive heart failure, unspecified heart failure type I50.9 ; Angina pectoris I20.9 ; Seasonal allergic rhinitis due to other allergic trigger J30.89 and Renal failure N19 [facility] [address] [id number] May, [facility] [id number] [place] [address] 94703- 2505 May, [facility] [id number] [place] [address] 47063- 5010 May, [facility] [id number] [place] [address] 51461- 7960 May, [facility] [id number] [place] [address] 74998- 4363 May, [facility] [id number] [place] [address] 74327- 2964 Apr, BMI 50.0-59.9, adult Z68.43 [facility] [id number] [place] [address] 99159- 9451 Apr, BMI 50.0-59.9, adult Z68.43 ; Post-procedural fever R50.82 and Bronchitis J40 [facility] [address] [address]- 4211 Apr, Chronic congestive heart failure, unspecified congestive heart failure type I50.9 [facility] [id number] [place] [address] 05038- 7505 Jan, [facility] [id number] [place] [address] 57943- 9972 Jan, Diabetes type 2, controlled E11.9 [facility] [address] [address]- 1520 Jan, Neuropathy G62.9 [facility] [id number] [place] [address], [place] [address]- 7994 Jan, [facility] [id number] [address]- 3517 Jan, [facility] [id number] [place] [address] 20451- 2395 Jan, [facility] [address] [facility] [place] [id number] [place] [address] 78814- 4681 Jan, [facility] [id number] [place] [address] 00899- 0675 Jan, [facility] [id number] [place] [address] 88133- 4498 Dec, [facility] [id number] [place] [address] 46060- 3255 Dec, [facility] [id number] [place] [address] 84904- 5414 Dec, Diabetes type 2, controlled E11.9 [facility] [address] [address]- 5893 Dec, [facility] [address] [address]- 0336 Dec, [facility] [address] [address]- 2523 Dec, Chronic congestive heart failure, unspecified congestive heart failure type I50.9 [facility] [address] [address]- 0740 Dec, [facility] [address] [address]- 0276 Dec, [facility] [address] [address]- 2690 Nov, Chronic congestive heart failure, unspecified congestive heart failure type I50.9 [facility] [address] [facility] [place] [id number] [address]- 0788 Nov, Chronic congestive heart failure, unspecified congestive heart failure type I50.9 [facility] [address] [address]- 3137 Nov, [facility] [id number] [place] [address] 72126- 4756 Oct, [facility] [address] [address]- 4523 Oct, [facility] [id number] [place] [address] 66408- 8119 Oct, Chronic congestive heart failure, unspecified congestive heart failure type I50.9 [facility] [address] [address]- 3331 Oct, [facility] [address] [address]- 2504 Oct, Pneumonia of both lungs due to infectious organism, unspecified part of lung J18.9 [facility] [address] [address]- 8362 Oct, [facility] [address] [address]- 3840 Oct, Diabetes type 2, controlled E11.9 [facility] [address] [address]- 9658 Oct, Diabetes type 2, controlled E11.9 [facility] [address] [address]- 3178 Sep, [facility] [address] [address]- 2944 Sep, Neuropathy G62.9 [facility] [address] [address]- 7123 Aug, Intra-dialytic hypotension I95.3 [facility] [address] [place] [address]- 8913 July, [facility] [id number] [address]- 4306 July, [facility] [id number] [address]- 9432 July, [facility] [id number] [place] [address] 60059- 5472 July, Amput below knee, unilat S88.119A [facility] [id number] [place] [address] 10692- 0377 May, [facility] [id number] [place] [address] 07028- 4857 May, Neuropathy G62.9 [facility] [id number] [place] [address] 74020- 7982 May, [facility] [address] [address]- 8772 May, [facility] [id number] [place] [address] 33172- 5020 May, [facility] [address], [place] [address]- 0107 May, [facility] [address] [address]- 9992 May, Neuropathy G62.9 [facility] [address], [place] [address]- 6162 Apr, [facility] [id number] [address]- 8304 Apr, [facility] [id number] [address]- 8455 Apr, Diabetes type 2, controlled E11.9 and Renal failure N19 [facility] [address] [facility] [place] [id number] [place] [address] -5601 Apr, [facility] [address] [facility] [place] [id number] [place] [address]- 5945 Apr, [facility] [address] [facility] [place] [id number] [place] [address]- 8809 Mar, [facility] [address] [facility] [place] [id number] [place] [address], [place] [address]- 1201 Mar, [facility] [address] [facility] [place] [id number] [place] [address]- 9026 Mar, [facility] [address] [facility] [place] [id number] [place] [address], [place] [address]- 5976 Mar, [facility] [id number] [place] [address]- 9705 Mar, [facility] [address] [address]- 3031 Jan, Localized edema R60.0 [facility] [address] [facility] [place] [id number] [place] [address]- 3888 Jan, [facility] [address] [address]- 0515 Jan, [facility] [address] [address]- 1539 Jan, [facility] [id number] [address]- 5681 Jan, [facility] [address] [facility] [place] [id number], [place] [address]- 1630 Jan, [facility] [address] [facility] [place] [id number] [address]- 3287 Jan, [facility] [address] [id number] [address]- 1480 Dec, Diabetes type 2, controlled E11.9 and Chronic nonintractable headache, unspecified headache type R51 [facility] [address] [address]- 9851 Dec, [facility] [id number] [place] [address] 47486- 8356 Dec, [facility] [id number] [place] [address] 34004- 7903 Nov, [facility] [id number] [place] [address] 63823- 0863 Nov, [facility] [id number] [place] [address] 80860- 1998 Oct, [facility] [id number] [place] [address] 47323- 0995 Oct, Migraine without status migrainosus, not intractable, unspecified migraine type G43.909 [facility] [id number] [place] [address] 92536- 5156 Oct, [facility] [id number] [place] [address] 43833- 6755 Sep, Amput below knee, unilat S88.119A and Neuropathy G62.9 [facility] [address] [address]- 7349 Sep, [facility] [address], [place] [address]- 4690 Sep, [facility] [address] [address]- 8447 Sep, [facility] [address], [place] [address]- 5059 Aug, [facility] [id number] [place] [address] 49452- 3576 Aug, [facility] [address] [address]- 6315 Aug, Diabetes type 2, controlled E11.9 [address] [id number] [place] [address]- 8639 Aug, [facility] [address] [facility] [place] [id number] [place] [address]- 1245 Jun, Diabetes type 2, controlled E11.9 and Neuropathy G62.9 [facility] [address] [facility] [id number] [place] [address]- 3616 Jun, [facility] [address] [facility] [place] [id number] [place] [address]- 1421 Jun, [facility] [address] [facility] [place] [id number] [place] [address]- 1113 Jun, [facility] [address] [facility] [place] [id number] [place] [address]- 9481 Jun, [facility] [address] [facility] [place] [id number] [place] [address]- 4466 May, [facility] [address] [facility] [place] [id number] [place] [address]- 1361 May, Diabetes type 2, controlled E11.9 [facility] [address] [facility] [place] [id number] [place] [address]- 7003 May, [facility] [address] [facility] [id number] [place] [address]- 8871 May, [facility] [address] [facility] [place] [id number] [place] [address]- 1849 May, [facility] [address] [facility] [id number] [place] [address]- 4671 May, [facility] [address] [facility] [id number] [place] [address]- 8359 May, [facility] [address] [facility] [id number] [place] [address]- 1444 May, [facility] [id number] [place] [address]- 5530 May, [facility] [address] [address]- 4255 May, COPD (chronic obstructive pulmonary disease) J44.9 [facility] [address] [address]- 3069 15 May, 2015 [facility] [address] [address]- 3963 May, [facility] [address], [place] [address]- 8449 May, [facility] [id number] [place] [address] 96005- 8577 May, [facility] [address] [address]- 0456 May, [facility] [address] [address]- 1183 May, Renal failure N19 and Pneumonia, organism unspecified, unspecified laterality, unspecified part of lung J18.9 [facility] [address] [address]- 5961 Apr, [facility] [address] [address]- 8820 Apr, [facility] [address] [address]- 5983 Apr, [facility] [address] [address]- 8599 Apr, Diabetes mellitus 250.00 [facility] [id number], [place] [address] 14 Apr, 2015 [facility] [id number], [place] [address] Apr, [facility] [id number], [place] [address] Apr, [facility] [place] [facility] [address] [id number] [place] [address] Apr, [facility] [place] [facility] [address] [id number] [place] [address] Mar, [facility] [place] [facility] [address] [id number] [place] [address] Mar, [facility] [place] [facility] [id number] [place] [address], [place] [address] Mar, [facility] [place] [facility] [address] [id number] [place] [address] 16 Mar, 2015 Renal failure N19 [facility] [place] [facility] [address] [id number] [place] [address], [place] [address]- [address] 14 Mar, 2015 [facility] [place] [facility] [address] [facility] [id number] [place] [address] Mar, [facility] [place] [facility] [address] [id number] [place] [address], [place] [address]- [address] Mar, [facility] [place] [facility] [address] [id number] [place] [address] 24 Jan, 2015 [facility] [place] [facility] [address] [facility] [place] [facility] [id number] [place] [address] Jan, [facility] [place] [facility] [address] [facility] [place] [id number] [place] [address] Jan, [facility] [place] [facility] [address] [id number], [place] [address] Jan, [facility] [place] [facility] [address] [id number] [place] [address] Dec, [facility] [place] [facility] [address] [id number] [place] [address] Dec, [facility] [place] [facility] [address] [facility] [place] [facility] [id number] [address] Dec, [facility] [place] [facility] [address] [id number], [place] [address] Nov, [facility] [address], [place] [address] Nov, [facility] [address], [place] [address] Nov, [facility] [address], [place] [address] Oct, [facility] [id number], [place] [address] Oct, [facility] [id number] [place] [address]7 Oct, Renal failure 586 and Obesity 278.00 [facility] [id number] [address] Oct, [facility] [id number] [place] [address]- 5167 Oct, [facility] [id number] [address] 7[address] Oct, [facility] [id number] [address] 90[address] Sep, [facility] [id number] [address] 115[address] Sep, [facility] [id number] [address] Sep, Diabetes mellitus 250.00 and Congestive heart failure, unspecified 428.0 [facility] [id number] [address] Aug, [facility] [id number] [address] 50[address] Aug, [facility] [address] [id number] [address] 8468 Aug, [facility] [id number] [place] [address] July, [facility] [address] [id number] [place] [address] July, [facility] [address] [id number] [place] [address]- 1567 July, Heart murmur, systolic 785.2 [facility] [address] [id number] [place] [address]- 8140 July, [facility] [address] [id number] [place] [address]- 3447 July, [facility] [address] [id number] [place] [address]- 5386 Jun, [facility] [address] [id number] [place] [address]- 5976 Jun, [facility] [address] [id number] [place] [address]- 4236 May, [facility] [address] [id number] [place] [address]- 3168 23 May, 2014 [facility] [address] [id number] [place] [address]- 4930 18 May, 2014 [facility] [address] [id number] [place] [address]- 1757 18 May, 2014 [facility] [place] [facility] [address] [id number] [place] [address]- 7527 16 May, 2014 [facility] [place] [facility] [address] [id number] [place] [address]- 7294 16 May, 2014 [facility] [place] [facility] [address] [id number] [place] [address]- 1777 10 May, [address] [facility] [place] [facility] [address] [id number] [place] [address]- 1582 10 May, 2014 [facility] [place] [facility] [address] [id number] [place] [address]- 6228 May, 2014 [facility] [place] [facility] [address] [facility] [id number] [place] [address]- 1998 May, 2014 [facility] [place] [facility] [address] [facility] [id number] [place] [address]- 2084 May, 2014 [facility] [place] [facility] [address] [facility] [id number] [place] [address]- 9888 May, 2014 [facility] [place] [facility] [address] [facility] [id number] [place] [address]- 7124 May, 2014 [facility] [place] [facility] [address] [facility] [id number] [place] [address]- 1853 May, 2014 [facility] [place] [facility] [address] [facility] [id number] [place] [address]- 3326 May, 2014 [facility] [place] [facility] [address] [id number] [place] [address]- 7281 May, 2014 [facility] [place] [facility] [address] [facility] [id number] [place] [address]- 5890 May, 2014 [facility] [place] [facility] [address] [facility] [id number] [place] [address]- 7969 May, 2014 [facility] [place] [facility] [address] [facility] [id number] [place] [address]- 6910 May, 2014 [facility] [place] [facility] [address] [facility] [id number] [place] [address]- 2189 May, 2014 [facility] [place] [facility] [address] [facility] [id number] [address]- 8844 16 May, 2014 [facility] [place] [facility] [address] [facility] [id number] [place] [address]- 1108 16 May, 2014 [facility] [place] [facility] [address] [facility] [id number] [address] 11 May, 2014 [facility] [place] [facility] [address] [facility] [id number] [place] [address]- 5179 May, [facility] [place] [facility] [address] [id number] [place] [address]- 0173 May, [facility] [place] [facility] [address] [id number] [place] [address]- 4526 May, [facility] [place] [facility] [address] [id number] [place] [address]- 4240 Apr, [facility] [place] [facility] [address] [id number] [place] [address]- 4043 Apr, [facility] [place] [facility] [address] [id number] [place] [address]- 9271 Apr, [facility] [place] [facility] [address] [id number] [place] [address]- 1049 Apr, [facility] [place] [facility] [address] [id number] [place] [address]- 1432 Apr, [facility] [place] [facility] [address] [id number] [place] [address]- 9390 Apr, [facility] [place] [facility] [address] [id number] [place] [address]- 9808 Apr, [facility] [place] [facility] [address] [id number] [place] [address]- 9394 Apr, [facility] [place] [facility] [address] [id number] [place] [address]- 9440 Mar, [facility] [place] [facility] [address] [id number], [place] [address]- 0405 Mar, [facility] [place] [facility] [address] [id number] [place] [address]- 4380 Mar, [facility] [place] [facility] [address] [id number] [place] [address]- 8303 Mar, [facility] [place] [facility] [address] [id number] [place] [address]- 3961 Mar, [facility] [place] [facility] [address] [id number] [place] [address]- 8214 Mar, [facility] [place] [facility] [address] [id number] [place] [address]- 3175 18 Mar, 2014 [facility] [place] [facility] [address] [id number] [place] [address]- 6476 Mar, [facility] [place] [facility] [address] [id number] [place] [address]- 0722 Mar, [facility] [place] [facility] [address] [id number] [place] [address]- 9863 Mar, [facility] [place] [facility] [address] [id number] [place] [address]- 8179 Mar, [facility] [place] [facility] [address] [id number] [place] [address]- 5403 Mar, [facility] [place] [facility] [address] [id number] [place] [address]- 7572 Mar, [facility] [place] [facility] [address] [id number] [place] [address]- 2119 Mar, [facility] [place] [facility] [address] [id number] [place] [address]- 9155 Mar, [facility] [place] [facility] [address] [id number] [place] [address]- 8742 Mar, [facility] [place] [facility] [address] [id number] [place] [address]- 9541 Mar, [facility] [place] [facility] [address] [id number] [place] [address]- 9617 Mar, [facility] [place] [facility] [address] [id number] [place] [address]- 2483 Mar, [facility] [place] [facility] [address] [id number] [place] [address]- 7384 Mar, [facility] [place] [facility] [address] [id number] [place] [address]- 5062 Mar, [facility] [place] [facility] [address] [id number] [place] [address]- 4977 Mar, [facility] [place] [facility] [address] [id number] [place] [address]- 2623 Jan, [facility] [place] [facility] [address] [id number] [place] [address]- 2919 Jan, [facility] [place] [facility] [address] [id number] [place] [address]- 7436 Jan, [facility] [place] [facility] [address] [id number] [place] [address]- 5714 Jan, [facility] [place] [facility] [address] [id number] [place] [address]- 4194 Jan, [facility] [place] [facility] [address] [id number] [place] [address]- 2818 Jan, [facility] [place] [facility] [address] [id number] [place] [address]- 3011 Jan, [facility] [place] [facility] [address] [id number] [place] [address]- 3903 Jan, [facility] [place] [facility] [address] [id number] [place] [address]- 4729 Jan, [facility] [place] [facility] [address] [id number] [place] [address]- 7618 Jan, [facility] [place] [facility] [address] [id number] [place] [address]- 5214 Jan, [facility] [place] [facility] [address] [id number] [place] [address]- 3589 Jan, [facility] [place] [facility] [address] [id number] [place] [address]- 2984 Jan, [facility] [place] [facility] [address] [id number] [place] [address]- 2339 Jan, [facility] [place] [facility] [address] [id number] [place] [address]- 7969 Jan, [facility] [place] [facility] [address] [id number] [place] [address]- 8037 Jan, [facility] [place] [facility] [address] [id number] [place] [address]- 9792 Jan, [facility] [place] [facility] [address] [id number] [place] [address] Jan, [facility] [place] [facility] [address] [id number] [place] 1307 Jan, [facility] [place] [facility] [address] [id number] [place] [address]- 1060 Jan, [facility] [place] [facility] [address] [id number] [place] [address]- 1162 Dec, [facility] [place] [facility] [address] [id number] [place] [address]- 2911 Dec, [facility] [place] [facility] [address] [id number] [place] [address]- 5679 Dec, [facility] [place] [facility] [address] [id number] [place] [address]- 6290 Dec, [facility] [place] [facility] [address] [id number] [place] [address]- 2633 Dec, [facility] [place] [facility] [address] [id number] [address]- 7887 14 Dec, 2013 [facility] [place] [facility] [address] [id number], [place] [address]- 4558 14 Dec, 2013 [facility] [place] [facility] [address] [id number] [place] [address]- 8586 10 Dec, 2013 [facility] [place] [facility] [address] [id number] [place] [address]- 6242 10 Dec, 2013 [facility] [place] [facility] [address] [id number] [place] [address]- 8132 08 Dec, 2013 [facility] [place] [facility] [address] [id number] [place] [address]- 7444 08 Dec, 2013 [facility] [place] [facility] [address] [id number] [place] [address]- 4834 Dec, [facility] [place] [facility] [address] [id number] [place] [address]- 6751 Dec, [facility] [place] [facility] [address] [id number] [place] [address]- 7343 Dec, [facility] [place] [facility] [address] [id number] [place] [address]- 5188 Dec, [facility] [place] [facility] [address] [id number] [place] [address]- 1785 22 Nov, 2013 [facility] [place] [facility] [address] [id number] [place] [address]- 7851 22 Nov, 2013 [facility] [place] [facility] [address] [id number] [place] [address]- 4598 19 Nov, 2013 [facility] [place] [facility] [address] [id number] [place] [address]- 7242 19 Nov, 2013 [facility] [place] [facility] [address] [id number] [place] [address] 2545 13 Nov, 2013 [facility] [place] [facility] [address] [id number] [place] [address]- 2542 13 Nov, 2013 [facility] [place] [facility] [address] [id number] [place] [address] 2546 10 Nov, 2013 [facility] [place] [facility] [address] [id number] [place] [address]- 2547 10 Nov, 2013 [facility] [place] [facility] [address] [id number] [place] [address]- 2540 08 Sep, 2013 [facility] [place] [facility] [address] [id number] [place] [address]- 2545 05 Sep, 2013 [facility] [place] [facility] [address] [id number] [place] [address] 2544 Nov, [facility] [place] [facility] [address] [id number] [place] [address]- 3163 Nov, [facility] [place] [facility] [address] [id number] [place] [address]- 9840 Nov, [facility] [place] [facility] [address] [id number] [place] [address]- 4361 Oct, [facility] [place] [facility] [address] [id number] [place] [address]- 7333 Oct, [facility] [place] [facility] [address] [id number] [place] [address]- 7668 Oct, [facility] [place] [facility] [address] [id number] [place] [address]- 4218 Oct, [facility] [place] [facility] [address] [id number] [place] [address]- 8471 Oct, [facility] [place] [facility] [address] [id number] [place] [address]- 7276 Sep, [facility] [place] [facility] [address] [id number] [place] [address]- 6773 Sep, [facility] [place] [facility] [address] [id number] [place] [address]- 7436 Sep, [facility] [place] [facility] [address] [id number] [place] [address]- 5192 Sep, [facility] [place] [facility] [address] [id number] [place] [address]- 7370 Aug, [facility] [place] [facility] [address] [id number] [place] [address]- 1504 Aug, [facility] [place] [facility] [address] [id number] [place] [address]- 0817 Aug, [facility] [place] [facility] [address] [id number] [place] 4444 Aug, [facility] [place] [facility] [address] [id number] [place] [address]- 3788 Aug, [facility] [place] [facility] [address] [id number] [place] [address]- 6671 Aug, [facility] [place] [facility] [address] [id number] [place] [address]- 1014 Aug, [facility] [place] [facility] [address] [id number] [place] [address]- 8876 Aug, [facility] [place] [facility] [address] [id number] [place] [address]- 1724 Aug, [facility] [place] [facility] [address] [id number] [place] [address]- 8215 Aug, [facility] [place] [facility] [address] [id number] [place] [address]- 6767 Aug, [facility] [place] [facility] [address] [id number] [place] [address]- 9712 Aug, [facility] [place] [facility] [address] [id number] [place] [address]- 5235 Aug, [facility] [place] [facility] [address] [id number] [place] [address]- 0947 Aug, [facility] [place] [facility] [address] [id number] [place] [address]- 9336 Aug, [facility] [place] [facility] [address] [id number] [place] [address]- 8467 Aug, [facility] [place] [facility] [address] [id number] [place] [address]- 5948 Aug, [facility] [place] [facility] [address] [id number] [place] [address]- 2591 Aug, [facility] [place] [facility] [address] [id number] [place] [address]- 7215 Aug, [facility] [place] [facility] [address] [id number] [place] [address]- 9023 Aug, [facility] [place] [facility] [address] [id number] [place] [address]- 9402 Aug, [facility] [place] [facility] [address] [id number] [place] [address]- 7672 Aug, [facility] [place] [facility] [address] [id number] [place] [address]- 3356 Aug, [facility] [place] [facility] [address] [id number] [place] [address]- 7211 Aug, [facility] [place] [facility] [address] [id number] [place] [address]- 6536 July, [facility] [place] [facility] [address] [id number] [place] [address]- 4340 July, [facility] [place] [facility] [address] [id number] [place] [address]- 8386 July, [facility] [place] [facility] [address] [id number] [place] [address]- 0022 July, [facility] [place] [facility] [address] [id number] [place] [address]- 1146 July, [facility] [place] [facility] [address] [id number] [place] [address]- 4048 July, [facility] [place] [facility] [address] [id number] [place] [address]- 8500 Jun, [facility] [place] [facility] [address] [id number] [place] [address]- 9487 Jun, [facility] [place] [facility] [address] [id number] [place] [address]- 1584 Jun, [facility] [place] [facility] [address] [id number] [place] [address]- 0892 Jun, [facility] [place] [facility] [address] [id number] [place] [address]- 3018 Jun, [facility] [place] [facility] [address] [id number] [place] [address]- 0061 Jun, [facility] [place] [facility] [address] [id number] [place] [address]- 3468 Jun, [facility] [place] [facility] [address] [id number] [place] [address]- 7998 Jun, [facility] [place] [facility] [address] [id number] [place] [address]- 0748 Jun, [facility] [place] [facility] [address] [id number] [place] [address]- 1292 Jun, [facility] [place] [facility] [address] [id number] [place] [address]- 4552 Jun, [facility] [place] [facility] [address] [id number] [place] [address]- 2453 Jun, [facility] [place] [facility] [address] [id number] [place] [address]- 1244 Jun, [facility] [place] [facility] [address] [id number] [place] [address]- 4566 Jun, [facility] [place] [facility] [address] [id number] [place] [address]- 6343 Jun, [facility] [place] [facility] [address] [id number] [place] [address]- 5591 May, [facility] [place] [facility] [address] [id number] [place] [address]- 6378 May, [facility] [place] [facility] [address] [id number], [place] [address]- 5338 May, [facility] [place] [facility] [address] [id number] [place] [address]- 2884 May, [facility] [place] [facility] [address] [id number] [place] [address]- 1659 May, [facility] [place] [facility] [address] [id number] [place] [address]- 0122 May, [facility] [place] [facility] [address] [id number] [place] [address]- 1077 May, [facility] [place] [facility] [address] [id number] [place] [address]- 4295 May, [facility] [place] [facility] [address] [id number] [place] [address] May, [facility] [place] [facility] [address] [id number] [place] [address] May, [facility] [place] [facility] [address] [id number] [place] [address] May, [facility] [place] [facility] [address] [id number] [place] [address] May, [facility] [place] [facility] [address] [id number] [place] [address] May, [facility] [place] [facility] [address] [id number] [place] [address] May, [facility] [place] [facility] [address] [id number] [place] [address] May, [facility] [place] [facility] [address] [id number] [place] [address] May, [facility] [place] [facility] [address] [facility] [id number] [place] [address] May, [facility] [place] [facility] [address] [id number] [place] [address] Apr, [facility] [place] [facility] [address] [id number] [place] [address] Apr, [facility] [place] [facility] [address] [id number] [place] [address] Apr, [facility] [place] [facility] [address] [id number] [place] [address] Apr, [facility] [place] [facility] [address] [id number] [place] [address] Apr, [facility] [place] [facility] [address] [id number] [place] [address] Apr, [facility] [place] [facility] [address] [id number] [place] [address] Apr, [facility] [place] [facility] [address] [id number] [place] [address] Apr, [facility] [place] [facility] [address] [id number] [place] [address] Apr, [facility] [place] [facility] [address] [id number] [place] [address] Apr, [facility] [place] [facility] [address] [id number] [place] [address] Apr, [facility] [place] [facility] [address] [id number] [place] [address] Apr, [facility] [place] [facility] [address] [id number] [place] [address] 8065 Apr, [facility] [place] [facility] [address] [id number] [place] [address] Apr, [facility] [place] [facility] [address] [id number] [place] [address]- [address]275 Apr, [facility] [place] [facility] [address] [id number] [place] [address] Apr, [facility] [place] [facility] [address] [id number] [address] Mar, [facility] [place] [facility] [address] [id number] [place] [address] Mar, [facility] [place] [facility] [address] [id number] [place] [address] Mar, [facility] [place] [facility] [address] [id number] [place] [address] Mar, [facility] [place] [facility] [address] [id number] [place] [address] 18 Mar, 2012 [facility] [address] [id number] [place] [address] 9765 18 Mar, 2012 [facility] [place] [facility] [address] [id number] [place] [address]- [address]31 18 Mar, 2013 [facility] [address] [facility] [id number] [place] [address] 18 Mar, 2013 [facility] [place] [facility] [address] [id number] [place] [address] 17 Mar, 2013 [facility] [address] [id number] [place] [address]- [address]29 17 Mar, 2013 [facility] [address] [id number] [place] [address]- [address] 05 Mar, 2013 [facility] [address] [place] [id number] [place] [address] 05 Mar, 2013 [facility] [place] [facility] [address] [facility] [id number] [place] [address]- [address] 04 Mar, 2013 [facility] [address] [facility] [id number] [place] [address]- [address]98 04 Mar, 2013 [facility] [place] [facility] [address] [facility] [id number] [place] [address] 79[address] Mar, [facility] [place] [facility] [address] [facility] [id number] [place] [address]- 2481 Mar, [facility] [place] [facility] [address] [id number], [place] [address] Mar, [facility] [place] [facility] [address] [id number] [place] [address]- [address]339 Mar, [facility] [place] [facility] [address] [facility] [id number] [place] [address]- [address] Jan, [facility] [place] [facility] [address] [facility] [id number] [place] [address]- 40[address] Jan, [facility] [place] [facility] [address] [id number] [place] [address]- [address] Jan, [facility] [place] [facility] [address] [id number] [place] [address]- 8177 Jan, [facility] [place] [facility] [address] [id number] [place] [address]- [address] Nov, [facility] [place] [facility] [address] [id number] [place] [address]- [address]60 Nov, [facility] [place] [facility] [address] [id number] [place] [address] Nov, [facility] [place] [facility] [address] [id number] [place] [address]- 1584 Nov, [facility] [place] [facility] [address] [id number] [place] [address]- 8400 Oct, [facility] [place] [facility] [address] [id number] [place] [address]- 1616 Oct, [facility] [place] [facility] [address] [id number] [place] [address]- [address]66 Oct, [facility] [place] [facility] [address] [id number] [place] [address]- 2503 Oct, [facility] [place] [facility] [address] [id number] [place] [address]- 4[address] Sep, [facility] [place] [facility] [address] [id number] [place] [address]- 479[address] Sep, [facility] [place] [facility] [address] [id number] [place] [address]- [address] Sep, [facility] [place] [facility] [address] [id number] [place] [address]- 1329 Sep, [facility] [place] [facility] [address] [id number] [place] [address]- 3824 Sep, [facility] [place] [facility] [address] [id number] [place] [address]- 2981 Sep, [facility] [address] [id number] [place] [address]- 2809 Sep, [facility] [place] [facility] [address] [id number] [place] [address]- 0443 Sep, [facility] [place] [facility] [address] [id number] [place] [address]- 4[address] Sep, [facility] [place] [facility] [address] [id number] [place] [address]- 1126 Aug, [facility] [place] [facility] [address] [id number] [place] [address]- 6[address] Aug, [facility] [place] [facility] [address] [id number] [place] [address]- 8432 Aug, [facility] [place] [facility] [address] [id number] [place] [address] Aug, [facility] [place] [facility] [address] [id number] [place] [address] July, [facility] [place] [facility] [address] [id number] [place] [address] July, [facility] [place] [facility] [address] [id number] [place] [address] July, [facility] [place] [facility] [address] [id number] [place] [address] July, [facility] [place] [facility] [address] [id number] [place] [address] July, [facility] [place] [facility] [address] [id number] [place] [address] July, [facility] [place] [facility] [address] [id number] [place] [address] July, [facility] [place] [facility] [address] [id number] [place] [address] Jun, [facility] [place] [facility] [address] [id number] [address] May, [facility] [address] [id number] [address] May, [facility] [address] [id number] [address] May, [facility] [id number] [address] May, [facility] [address] [id number] [address] May, [facility] [id number] [address] May, [facility] [id number], [place] [address] May, [facility] [address] [id number] [address] May, IMMUNIZATIONS No Known Immunizations SOCIAL HISTORY Never Assessed REASON FOR VISIT [facility] [place] PLAN OF CARE VITAL SIGNS MEDICATIONS Unknown [...] Hospitalization History [facility] 03/10-03/12/2019 Hospitalization History [facility] ER 05/2018
--- OUTSIDE RECORDS SUMMARY | 2018-07-14 17:57 | XMS REPORT ---
Author Author Migration, Doctor Organization [facility] Address Unknown Phone Unavailable Care Team Providers Care Decision Unit Rn Name Role Phone Migration, Doctor Unavailable Unavailable PROBLEMS Type Condition ICD9-CM Code [id number] Code Onset Dates Condition Status SNOMED Code Problem Cellulitis of right lower extremity L03.115 Active 659404520 Problem Neuropathy G62.9 Active 255730224 Problem Renal failure N19 Active 47998499 Problem Intra-dialytic hypotension I95.3 Active 112358408 Problem Amput below knee, unilat S88.119A Active 00127669 Problem Seasonal allergic rhinitis due to other allergic trigger J30.89 Active 674874099 Problem Chronic congestive heart failure, unspecified congestive heart failure type I50.9 Active 65883136 Problem Other chronic pain G89.29 Active 30343485 Problem 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 Active 0223700 Problem Primary insomnia F51.01 Active 9635057 Problem Paroxysmal atrial fibrillation I48.0 Active 807082289 Problem Angina pectoris I20.9 Active 176522271 Problem Type 2 diabetes mellitus with hyperglycemia, unspecified whether half-way insulin use E11.65 Active 088284651707178 Problem Chronic congestive heart failure, unspecified heart failure type I50.9 Active 19116303 Problem Self-care deficit for toileting R46.0 Active 519555107 Problem Bronchitis J40 Active 21966417 Problem Observed sleep apnea G47.30 Active 99731858 Problem Unsteady gait R26.81 Active 282549623 ALLERGIES No Information ENCOUNTERS Encounter Location Date Diagnosis [facility] [address] [facility] [id number], [place] [address] May, Encounter for Medicare annual wellness exam Z00.00 [facility] [address] [facility] [facility] [id number], [place] [address] May, [facility] [address] [facility] [id number], [place] [address] May, [place] [id number] [place] [address] 31896- 1056 May, Diabetes type 2, controlled E11.9 [facility] [id number] [place] [address] 55860- 4534 May, [facility] [id number] [place] [address] 65245- 1547 May, Pressure injury of coccygeal region, stage 2 L89.152 ; Nausea R11.0 ; Chronic congestive heart failure, unspecified congestive heart failure type I50.9 ; Observed sleep apnea G47.30 and Morbid obesity E66.01 [facility] [id number] [place] [address] [id number] May, [facility] [id number] [place] [address] 41712- 3157 May, [facility] [id number] [place] [address] 94871- 8858 May, [facility] [id number] [place] [address] 13615- 9412 May, [facility] [id number] [place] [address] 17359- 0950 May, [facility] [id number] [place] [address] 17955- 5207 18 May, 2018 Renal failure N19 [facility] [id number] [place] [address] 01412- 1509 14 May, 2018 [facility] [address] [place] [address] 01049- 0074 13 May, 2018 Neuropathy G62.9 and Renal failure N19 [facility] [address] [place] [address] 34640- 5675 08 May, 2018 [facility] [id number] [place] [address] 26524- 6311 07 May, 2018 [facility] [id number] [place] [address] 61569- 8642 04 May, 2018 [facility] [id number] [place] [address] 73223- 5138 Apr, [facility] [id number] [place] [address] 54378- 7172 14 Apr, 2018 [facility] [id number] [place] [address] 11153- 5825 Apr, [facility] [id number] [place] [address] 80369- 7127 Mar, Diabetes type 2, controlled E11.9 [facility] [id number] [place] [address] 16266- 6833 Mar, Paroxysmal atrial fibrillation I48.0 ; Observed sleep apnea G47.30 ; Unsteady gait R26.81 and Bilious vomiting with nausea R11.14 [facility] [id number] [place] [address] 39572- 6069 Mar, [facility] [id number] [place] [address] 16756- 0938 Mar, [facility] [id number] [place] [address] 07476- 3606 Mar, [facility] [id number] [place] [address] 63129- 0915 Mar, [facility] [id number] [place] [address] 96663- 3832 Mar, Diabetes type 2, controlled E11.9 ; BMI 50.0-59.9, adult Z68.43 ; Bronchitis J40 and Other chronic pain G89.29 [facility] [id number] [place] [address] 59315- 8448 Mar, [facility] [id number] [place] [address] 43860- 8037 05 Mar, 2018 [facility] [address] [place] [address] 0223 Jan, [facility] [id number] [place] [address] 66418- 2702 Jan, [facility] [id number] [place] [address] 34961- 7556 Dec, [facility] [id number] [place] [address] 45040- 5717 Dec, [facility] [id number] [place] [address] 62988- 2166 Dec, [facility] [id number] [place] [address] 18330- 5832 Nov, Pneumonia due to infectious organism, unspecified laterality , unspecified part of lung J18.9 and Self-care deficit for toileting R46.0 [facility] [id number] [place] [address] 66340- 8726 Nov, [facility] [id number] [place] [address] 79265- 8774 Oct, Diabetes type 2, controlled E11.9 ; Primary insomnia F51.01 and Bilateral headaches R51 [facility] [address] [place] [address] 95817- 4590 Oct, [facility] [address] [place] [address] 08303- 0708 Sep, [facility] [address] [place] [address] [id number] Sep, Dental examination Z01.20 and Dental caries K02.9 [facility] [id number] [place] [address] 59512- 0586 Sep, [facility] [id number] [place] [address] 39164- 6998 Sep, [facility] [address] [place] [address] 59295- 4215 Sep, Other chronic pain G89.29 and Pain in right knee M25.561 [facility] [address] [facility] [id number] [place] [address]- 0096 05 Sep, 2017 [facility] [address] [id number] [place] [address] 34728- 7446 Aug, [facility] [address] [place] [address]- 1462 Aug, 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 [facility] [address] [id number] [place] [address], [place] [address]- 7161 15 Aug, 2017 [facility] [address] [id number] [place] [address] 26302- 0369 11 Aug, 2017 Diabetes type 2, controlled E11.9 and Acute pain of right knee M25.561 [facility] [id number] [place] [address]- 9806 Aug, [facility] [address] [id number] [address]- 4783 July, [facility] [address] [id number] [place] [address]- 2352 16 Jun, 2017 [facility] [address] [id number] [place] [address]- 9024 13 Jun, 2017 [facility] [address]65[address], [place] [address]- 3129 10 Jun, 2017 Diabetes type 2, controlled E11.9 [facility] [address] [id number], [place] [address]- 1790 Jun, [facility] [address] [facility] [id number] [place] [address]- 8211 May, [facility] [address] [facility] [id number] [place] [address]- 3013 May, [facility] [address] [address]- 1086 May, [facility] [address], [place] [address]- 7567 May, Chronic congestive heart failure, unspecified congestive heart failure type I50.9 [facility] [id number] [place] [address] 03551- 3406 May, Diabetes type 2, controlled E11.9 ; BMI 50.0-59.9, adult Z68.43 ; Chronic congestive heart failure, unspecified heart failure type I50.9 ; Angina pectoris I20.9 ; Seasonal allergic rhinitis due to other allergic trigger J30.89 and Renal failure N19 [facility] [address] [address] May, [facility] [id number] [place] [address] 83356- 7621 May, [facility] [id number] [place] [address] 77748- 4999 May, [facility] [id number] [place] [address] 77314- 8894 May, [facility] [id number] [place] [address] 60490- 6214 May, [facility] [id number] [place] [address] 23594- 3343 Apr, BMI 50.0-59.9, adult Z68.43 [facility] [id number] [place] [address] 29813- 6723 Apr, BMI 50.0-59.9, adult Z68.43 ; Post-procedural fever R50.82 and Bronchitis J40 [facility] [id number] [place] [address] 13729- 9837 Apr, Chronic congestive heart failure, unspecified congestive heart failure type I50.9 [facility] [id number] [place] [address] 30443- 9291 Jan, [facility] [address] [id number] [address]- 5102 Jan, Diabetes type 2, controlled E11.9 [facility] [id number] [place] [address] 16402- 0100 Jan, Neuropathy G62.9 [facility] [address] [facility] [id number] [place] [address] 24826- 4051 Jan, [facility] [address] [id number] [place] [address] 17022- 7818 Jan, [facility] [id number] [place] [address] 32605- 1023 Jan, [facility] [id number] [place] [address] 30961- 5133 Jan, [facility] [id number] [place] [address] 40686- 9654 Jan, [facility] [id number] [place] [address] 64538- 8625 Dec, [facility] [address]00565[address], [place] [address]- 1326 Dec, [facility] [address] [place] [address] 65875- 3394 Dec, Diabetes type 2, controlled E11.9 [facility] [address] [facility] [facility] [id number], [place] [address]- 7020 Dec, [facility] [address] [id number], [place] [address]- 6019 Dec, [facility] [address] [id number], [place] [address]- 2815 Dec, Chronic congestive heart failure, unspecified congestive heart failure type I50.9 [facility] [address] [id number], [place] [address]- 5944 Dec, [facility] [address]65[address], [place] [address]- 3573 Dec, [facility] [address] [facility] [id number], [place] [address]- 1306 Nov, Chronic congestive heart failure, unspecified congestive heart failure type I50.9 [facility] [id number] [address]- 5124 Nov, Chronic congestive heart failure, unspecified congestive heart failure type I50.9 [facility] [address]00565[address], [place] [address]- 7347 Nov, [facility] [address] [facility] [facility] [id number], [place] [address]- 9707 Oct, [facility] [address]65[address], [place] [address]- 1967 Oct, [facility] [address]65[address], [place] [address]- 2275 Oct, Chronic congestive heart failure, unspecified congestive heart failure type I50.9 [facility] [address]65[address] [address]- 6303 Oct, [facility] [address]00565[address], [place] [address]- 3337 Oct, Pneumonia of both lungs due to infectious organism, unspecified part of lung J18.9 [facility] [address]00565[address], [place] [address]- 5095 Oct, [facility] [address], [place] [address]- 3654 Oct, Diabetes type 2, controlled E11.9 [facility] [address]65[address] [address]- 8794 Oct, Diabetes type 2, controlled E11.9 [facility] [address]00565[address], [place] [address]- 9790 Sep, [facility] [address]65[address], [place] [address]- 2681 Sep, Neuropathy G62.9 [facility] [address], [place] [address]- 2204 Aug, Intra-dialytic hypotension I95.3 [facility] [address]00565[address], [place] [address]- 7346 July, [facility] [address] [address]- 6606 July, [facility] [id number] [place] [address] 68258- 4754 July, [facility] [id number] [place] [address] 71025- 3496 July, Amput below knee, unilat S88.119A [facility] [id number], [place] [address]- 0426 May, [facility] [id number] [place] [address] 33891- 6831 May, Neuropathy G62.9 [facility] [address]005[address], [place] [address]- 4885 May, [facility] [address], [place] [address]- 9207 May, [facility] [address], [place] [address]- 2116 May, [facility] [address], [place] [address]- 5518 May, [facility] [address], [place] [address]- 0877 May, Neuropathy G62.9 [facility] [address], [place] [address]- 1196 Apr, [facility] [address], [place] [address]- 8709 Apr, [facility] [address], [place] [address]- 8117 Apr, Diabetes type 2, controlled E11.9 and Renal failure N19 [facility] [id number] [place] [address], [place] [address] -6245 Apr, [facility] [id number] [place] [address], [place] [address]- 4369 Apr, [facility] [id number] [place] [address], [place] [address]- 4645 Mar, [facility] [id number] [place] [address], [place] [address]- 0004 Mar, [facility] [id number] [place] [address], [place] [address]- 8189 Mar, [facility] [id number] [place] [address], [place] [address]- 2004 Mar, [facility] [id number] [place] [address], [place] [address]- 8348 Mar, [facility] [address] [place] [address] 64593- 9922 Jan, Localized edema R60.0 [facility] [address] [place] [address] 45848- 9242 Jan, [facility] [address], [place] [address]- 1284 Jan, [facility] [address], [place] [address]- 5105 Jan, [facility] [address], [place] [address]- 6311 Jan, [facility] [id number] [place] [address] 37309- 4745 Jan, [facility] [address] [address]- 2086 Jan, [facility] [id number] [place] [address] 94124- 4188 Dec, Diabetes type 2, controlled E11.9 and Chronic nonintractable headache, unspecified headache type R51 [facility] [id number] [address]- 4340 Dec, [facility] [address] [place] [address] 22085- 8680 Dec, [facility] [id number] [place] [address] 36647- 6134 Nov, [facility] [address] [place] [address] 52381- 0099 Nov, [facility] [id number] [place] [address] 16013- 2696 Oct, [facility] [id number] [place] [address] 57926- 5349 Oct, Migraine without status migrainosus, not intractable, unspecified migraine type G43.909 [facility] [id number] [place] [address] 98315- 4536 Oct, [facility] [id number] [place] [address] 87622- 4948 Sep, Amput below knee, unilat S88.119A and Neuropathy G62.9 [facility] [address], [place] [address]- 3978 Sep, [facility] [address] [place] [address] 17199- 3465 Sep, [facility] [address], [place] [address]- 8803 Sep, [facility] [address], [place] [address]- 4929 Aug, [facility] [address], [place] [address]- 0811 Aug, [facility] [id number] [place] [address]- 2877 17 Aug, 2015 Diabetes type 2, controlled E11.9 [facility] [address] [facility] [id number] [place] [address]- 4100 Aug, [facility] [address] [facility] [id number] [place] [address]- 5324 Jun, Diabetes type 2, controlled E11.9 and Neuropathy G62.9 [facility] [address] [facility] [id number] [place] [address]- 7285 14 Jul, 2015 [facility] [address] [facility] [id number] [place] [address]- 2490 Jun, [facility] [address] [facility] [id number] [place] [address]- 2026 Jun, [facility] [address] [facility] [id number] [place] [address]- 4670 Jun, [facility] [address] [facility] [id number] [place] [address]- 9270 May, [facility] [address] [facility] [id number] [place] [address]- 6403 May, Diabetes type 2, controlled E11.9 [facility] [address] [facility] [id number] [place] [address]- 6433 May, [facility] [address] [id number] [place] [address] May, [facility] [address] [id number] [place] [address] May, [facility] [address] [id number] [place] [address] May, [facility] [address] [id number] [place] [address] May, [facility] [id number] [place] [address] May, [facility] [id number] [address] May, [facility] [address] [address] May, COPD (chronic obstructive pulmonary disease) J44.9 [facility] [id number] [place] [address] May, [facility] [id number] [address] May, [facility] [id number] [address] May, [facility] [address] [address] May, [facility] [id number] [address] May, [facility] [id number] [address] May, Renal failure N19 and Pneumonia, organism unspecified, unspecified laterality, unspecified part of lung J18.9 [facility] [address] [address] Apr, [facility] [id number] [address] Apr, [facility] [id number] [address] Apr, [facility] [id number] [place] [address] Apr, Diabetes mellitus 250.00 [facility] [id number] [address] Apr, [facility] [id number] [place] [address] Apr, [facility] [place] [facility] [address] [id number] [place] [address] Apr, [facility] [place] [facility] [address] [id number] [place] [address], [place] [address] Apr, [facility] [place] [facility] [address] [id number] [place] [address] Mar, [facility] [place] [facility] [address] [id number] [place] [address], [place] [address] Mar, [facility] [place] [facility] [address] [id number] [place] [address] Mar, [facility] [place] [facility] [address] [id number] [place] [address], [place] [address] 16 Mar, 2015 Renal failure N19 [facility] [place] [facility] [address] [id number] [place] [address] [address] 14 Mar, 2015 [facility] [place] [facility] [id number] [place] [address], [place] [address]- [address]348 Mar, [facility] [place] [facility] [address] [id number] [place] [address] Mar, [facility] [place] [facility] [address] [id number] [place] [address] 2[address] 24 Jan, 2015 [facility] [place] [facility] [address] [id number] [place] [address] 9006 18 Jan, 2015 [facility] [place] [facility] [address] [id number], [place] [address] 1259 17 Jan, 2015 [facility] [place] [facility] [address] [id number] [place] [address] 0103 13 Jan, 2015 [facility] [place] [facility] [address] [id number] [place] [address]- 0204 20 Dec, 2014 [facility] [place] [facility] [address] [facility] [id number] [address] 19 Dec, 2014 [facility] [place] [facility] [address] [id number], [place] [address] Dec, [facility] [id number] [address] Nov, [facility] [id number] [address]65 Nov, [facility] [id number], [place] [address] 5947 Nov, [facility] [address] [id number] [address] Oct, [facility] [id number] [place] [address] 7860 Oct, [facility] [address] [id number] [address] 6154 Oct, Renal failure 586 and Obesity 278.00 [facility] [id number] [place] [address]- 2185 Oct, [facility] [id number] [address] 5208 Oct, [facility] [id number], [place] [address]- 2312 Oct, [facility] [id number] [address]- 5[address] Sep, [facility] [id number], [place] [address] 9746 Sep, [facility] [address] [id number] [address] 3598 Sep, Diabetes mellitus 250.00 and Congestive heart failure, unspecified 428.0 [facility] [address] [address] 44[address] Aug, [facility] [address] [address]- 0407 Aug, [facility] [address] [id number] [place] [address]- 0245 Aug, [facility] [address] [id number] [place] [address]- 7887 July, [facility] [address] [id number] [place] [address]- 5985 July, [facility] [address] [id number] [place] [address]- 5930 July, Heart murmur, systolic 785.2 [facility] [address] [id number] [place] [address]- 4878 July, [facility] [address] [id number] [place] [address]- 8136 July, [facility] [address] [id number] [place] [address]- 9172 Jun, [facility] [address] [id number] [place] [address]- 2362 Jun, [facility] [address] [id number] [place] [address]- 5516 May, [facility] [address] [id number] [place] [address]- 2617 23 May, 2014 [facility] [address] [id number] [place] [address]- 9262 18 May, 2014 [facility] [place] [facility] [address] [id number] [place] [address]- 2349 18 May, 2014 [facility] [place] [facility] [address] [id number] [place] [address]- 5095 16 May, 2014 [facility] [place] [facility] [address] [id number] [place] [address]- 2181 16 May, 2014 [facility] [place] [facility] [address] [id number] [place] [address]- 3412 10 May, 2014 [facility] [place] [facility] [address] [id number] [place] [address]- 0437 May, 2014 [facility] [place] [facility] [address] [facility] [id number] [place] [address]- 3562 May, 2014 [facility] [place] [facility] [address] [facility] [id number] [place] [address]- 8745 May, 2014 [facility] [place] [facility] [address] [facility] [id number] [place] [address]- 7113 May, 2014 [facility] [place] [facility] [address] [facility] [id number] [place] [address]- 6758 May, 2014 [facility] [place] [facility] [address] [facility] [id number] [place] [address]- 2038 May, 2014 [facility] [place] [facility] [address] [facility] [id number] [place] [address]- 1216 May, 2014 [facility] [place] [facility] [address] [id number] [place] [address]- 0759 May, 2014 [facility] [place] [facility] [address] [facility] [id number] [place] [address]- 0940 May, 2014 [facility] [place] [facility] [address] [facility] [id number] [place] [address]- 7088 May, 2014 [facility] [place] [facility] [address] [facility] [id number] [place] [address]- 5886 18 May, 2014 [facility] [place] [facility] [address] [facility] [id number] [place] [address]- 1608 May, 2014 [facility] [place] [facility] [address] [facility] [id number], [place] [address]- 9313 18 May, 2014 [facility] [place] [facility] [address] [facility] [id number] [place] [address]- 3094 16 May, 2014 [facility] [place] [facility] [address] [facility] [id number], [place] [address]- 6068 16 May, 2014 [facility] [place] [facility] [address] [facility] [id number] [place] [address]- 2673 May, [facility] [place] [facility] [address] [id number] [place] [address]- 7219 May, [facility] [place] [facility] [address] [id number] [place] [address]- 6516 May, [facility] [place] [facility] [address] [id number] [place] [address]- 1452 May, [facility] [place] [facility] [address] [id number] [place] [address]- 0856 Apr, [facility] [place] [facility] [address] [id number] [place] [address]- 8802 Apr, [facility] [place] [facility] [address] [id number] [place] [address]- 3134 Apr, [facility] [place] [facility] [address] [id number] [place] [address]- 9794 Apr, [facility] [place] [facility] [address] [id number] [place] [address]- 1756 Apr, [facility] [place] [facility] [address] [id number] [place] [address]- 1735 Apr, [facility] [place] [facility] [address] [id number] [place] [address]- 7439 Apr, [facility] [place] [facility] [address] [id number] [place] [address]- 3465 Apr, [facility] [place] [facility] [address] [id number], [place] [address]- 7313 Mar, [facility] [place] [facility] [address] [id number] [place] [address]- 7275 Mar, [facility] [place] [facility] [address] [id number] [place] [address]- 1766 Mar, [facility] [place] [facility] [address] [id number] [place] [address]- 2109 Mar, [facility] [place] [facility] [address] [id number] [place] [address]- 8370 Mar, [facility] [place] [facility] [address] [id number] [place] [address]- 3286 Mar, [facility] [place] [facility] [address] [id number] [place] [address]- 7606 18 Mar, 2014 [facility] [place] [facility] [address] [id number] [place] [address]- 0956 Mar, [facility] [place] [facility] [address] [id number] [place] [address]- 9889 11 Mar, 2014 [facility] [place] [facility] [address] [id number] [place] [address]- 9929 Mar, [facility] [place] [facility] [address] [id number] [place] [address]- 7161 Mar, [facility] [place] [facility] [address] [id number] [place] [address]- 2686 Mar, [facility] [place] [facility] [address] [id number] [place] [address]- 5953 Mar, [facility] [place] [facility] [address] [id number] [place] [address]- 4798 Mar, [facility] [place] [facility] [address] [id number] [place] [address]- 6102 Mar, [facility] [place] [facility] [address] [id number] [place] [address]- 3218 Mar, [facility] [place] [facility] [address] [id number] [place] [address]- 5113 Mar, [facility] [place] [facility] [address] [id number] [place] [address]- 3106 Mar, [facility] [place] [facility] [address] [id number] [place] [address]- 9396 Mar, [facility] [place] [facility] [address] [id number] [place] [address]- 9867 Mar, [facility] [place] [facility] [address] [id number] [place] [address]- 0693 Mar, [facility] [place] [facility] [address] [id number] [place] [address]- 8094 Mar, [facility] [place] [facility] [address] [id number] [place] [address]- 1080 Jan, [facility] [place] [facility] [address] [id number] [place] [address]- 3414 Jan, [facility] [place] [facility] [address] [id number] [place] [address]- 3702 Jan, [facility] [place] [facility] [address] [id number] [place] [address]- 4345 Jan, [facility] [place] [facility] [address] [id number] [place] [address]- 5675 Jan, [facility] [place] [facility] [address] [id number] [place] [address]- 1062 Jan, [facility] [place] [facility] [address] [id number] [place] [address]- 1698 Jan, [facility] [place] [facility] [address] [id number] [place] [address]- 4520 Jan, [facility] [place] [facility] [address] [id number] [place] [address]- 9103 Jan, [facility] [place] [facility] [address] [id number] [place] [address]- 3141 Jan, [facility] [place] [facility] [address] [id number] [place] [address]- 5985 Jan, [facility] [place] [facility] [address] [id number] [place] [address]- 1188 Jan, [facility] [place] [facility] [address] [id number] [place] [address]- 2035 Jan, [facility] [place] [facility] [address] [id number] [place] [address]- 2589 Jan, [facility] [place] [facility] [address] [id number] [place] [address]- 6407 Jan, [facility] [place] [facility] [address] [id number] [place] [address]- 3280 Jan, [facility] [place] [facility] [address] [id number] [place] [address]- 8895 Jan, [facility] [place] [facility] [address] [id number] [place] [address]- 3605 Jan, [facility] [place] [facility] [address] [id number] [place] [address]- 0257 Jan, [facility] [place] [facility] [address] [id number] [place] [address]- 6638 Jan, [facility] [place] [facility] [address] [id number] [place] [address]- 5969 Dec, [facility] [place] [facility] [address] [id number] [place] [address]- 8105 Dec, [facility] [place] [facility] [address] [id number] [place] [address]- 6812 Dec, [facility] [place] [facility] [address] [id number] [place] [address]- 9691 Dec, [facility] [place] [facility] [address] [id number], [place] [address]- 7044 Dec, [facility] [place] [facility] [address] [id number], [place] [address]- 3395 14 Dec, 2013 [facility] [place] [facility] [address] [id number] [place] [address]- 3182 14 Dec, 2013 [facility] [place] [facility] [address] [id number], [place] [address]- 0691 10 Dec, 2013 [facility] [place] [facility] [address] [id number], [place] [address]- 7799 10 Dec, 2013 [facility] [place] [facility] [address] [id number] [place] [address]- 5669 08 Dec, 2013 [facility] [place] [facility] [address] [id number] [place] [address]- 7779 08 Dec, 2013 [facility] [place] [facility] [address] [id number] [place] [address]- 4302 Dec, [facility] [place] [facility] [address] [id number] [place] [address]- 5834 Dec, [facility] [place] [facility] [address] [id number] [place] [address]- 7020 Dec, [facility] [place] [facility] [address] [id number] [place] [address]- 6046 Dec, [facility] [place] [facility] [address] [id number] [place] [address]- 5793 22 Nov, 2013 [facility] [place] [facility] [address] [id number] [place] [address]- 9504 22 Nov, 2013 [facility] [place] [facility] [address] [id number] [place] [address]- 7740 19 Nov, 2013 [facility] [place] [facility] [address] [id number] [place] [address]- 2540 19 Nov, 2013 [facility] [place] [facility] [address] [id number] [place] [address]- 2545 13 Nov, 2013 [facility] [place] [facility] [address] [id number] [place] [address] 2546 13 Nov, 2013 [facility] [place] [facility] [address] [id number] [place] [address]- 254 10 Nov, 2013 [facility] [place] [facility] [address] [id number] [place] [address] 2545 10 Nov, 2013 [facility] [place] [facility] [address] [id number] [place] [address]- 2543 08 Sep, 2013 [facility] [place] [facility] [address] [id number] [place] [address]- 2547 Nov, [facility] [place] [facility] [address] [id number] [place] [address]- 7049 Nov, 2013 [facility] [place] [facility] [address] [id number] [place] [address]- 0880 Nov, [facility] [place] [facility] [address] [id number] [place] [address]262 Nov, [facility] [place] [facility] [address] [id number] [place] [address]- 8226 Oct, [facility] [place] [facility] [address] [id number] [place] [address]- 8867 Oct, [facility] [place] [facility] [address] [id number] [place] [address]- 5518 Oct, [facility] [place] [facility] [address] [id number] [place] [address]- 7048 Oct, [facility] [place] [facility] [address] [id number] [place] [address]- 6554 Oct, [facility] [place] [facility] [address] [id number] [place] [address]- 5913 Sep, [facility] [place] [facility] [address] [id number] [place] [address]- 0006 Sep, [facility] [place] [facility] [address] [id number] [place] [address]- 8442 Sep, [facility] [place] [facility] [address] [id number] [place] [address]- 7387 Sep, [facility] [place] [facility] [address] [id number] [place] [address]- 5643 Aug, [facility] [place] [facility] [address] [id number] [place] [address]- 9020 Aug, [facility] [place] [facility] [address] [id number] [place] [address]- 8119 Aug, [facility] [place] [facility] [address] [id number] [place] [address]- 4831 Aug, [facility] [place] [facility] [address] [id number] [place] [address]- 6264 Aug, [facility] [place] [facility] [address] [id number] [place] [address]- 0469 Aug, [facility] [place] [facility] [address] [id number] [place] [address]- 7866 Aug, [facility] [place] [facility] [address] [id number] [place] [address]- 0012 Aug, [facility] [place] [facility] [address] [id number] [place] [address]- 8870 Aug, [facility] [place] [facility] [address] [id number] [place] [address]- 5258 Aug, [facility] [place] [facility] [address] [id number] [place] [address]- 3213 Aug, [facility] [place] [facility] [address] [id number] [place] [address]- 2046 Aug, [facility] [place] [facility] [address] [id number] [place] [address]- 0515 Aug, [facility] [place] [facility] [address] [id number] [place] [address]- 6877 Aug, [facility] [place] [facility] [address] [id number] [place] [address]- 1879 Aug, [facility] [place] [facility] [address] [id number] [place] [address]- 4986 Aug, [facility] [place] [facility] [address] [id number] [place] [address]- 0744 Aug, [facility] [place] [facility] [address] [id number] [place] [address]- 0276 Aug, [facility] [place] [facility] [address] [id number] [place] [address]- 9236 Aug, [facility] [place] [facility] [address] [id number] [place] [address]- 3416 Aug, [facility] [place] [facility] [address] [id number] [place] [address]- 6498 Aug, [facility] [place] [facility] [address] [id number] [place] [address]- 3015 Aug, [facility] [place] [facility] [address] [id number] [place] [address]- 9548 Aug, [facility] [place] [facility] [address] [id number] [place] [address]- 1136 Aug, [facility] [place] [facility] [address] [id number] [place] [address]- 1505 July, [facility] [place] [facility] [address] [id number] [place] [address]- 5507 July, [facility] [place] [facility] [address] [id number] [place] [address]- 6316 July, [facility] [place] [facility] [address] [id number] [place] [address]- 4814 July, [facility] [place] [facility] [address] [id number] [place] [address]- 0827 July, [facility] [place] [facility] [address] [id number] [place] [address]- 9245 July, [facility] [place] [facility] [address] [id number] [place] [address]- 5472 Jun, [facility] [place] [facility] [address] [id number] [place] [address]- 6570 Jun, [facility] [place] [facility] [address] [id number] [place] [address]- 6473 Jun, [facility] [place] [facility] [address] [id number] [place] [address]- 8829 Jun, [facility] [place] [facility] [address] [id number] [place] [address]- 3233 Jun, [facility] [place] [facility] [address] [id number] [place] [address]- 3835 Jun, [facility] [place] [facility] [address] [id number] [place] [address]- 7511 Jun, [facility] [place] [facility] [address] [id number] [place] [address]- 7659 Jun, [facility] [place] [facility] [address] [id number] [place] [address]- 2777 Jun, [facility] [place] [facility] [address] [id number] [place] [address]- 6544 Jun, [facility] [place] [facility] [address] [id number] [place] [address]- 0377 Jun, [facility] [place] [facility] [address] [id number] [place] [address]- 2003 Jun, [facility] [place] [facility] [address] [id number] [place] [address]- 0466 Jun, [facility] [place] [facility] [address] [id number] [place] [address] Jun, [facility] [place] [facility] [address] [id number] [place] [address] Jun, [facility] [place] [facility] [address] [id number] [place] [address] May, [facility] [place] [facility] [address] [id number], [place] [address] May, [facility] [place] [facility] [address] [id number] [place] [address] May, [facility] [place] [facility] [address] [id number] [place] [address] May, [facility] [place] [facility] [address] [id number] [place] [address] May, [facility] [place] [facility] [address] [id number] [place] [address] May, [facility] [place] [facility] [address] [id number] [place] [address] May, [facility] [place] [facility] [address] [id number] [place] [address] May, [facility] [place] [facility] [address] [id number] [place] [address] May, [facility] [place] [facility] [address] [id number] [place] [address]- [address] May, [facility] [place] [facility] [address] [id number] [place] [address] May, [facility] [place] [facility] [address] [id number] [place] [address] May, [facility] [place] [facility] [address] [id number] [place] [address] May, [facility] [place] [facility] [address] [id number] [place] [address] May, [facility] [place] [facility] [address] [id number] [place] [address] May, [facility] [place] [facility] [address] [facility] [id number] [place] [address] May, [facility] [place] [facility] [address] [id number] [place] [address] May, [facility] [place] [facility] [address] [id number] [place] [address] Apr, [facility] [place] [facility] [address] [id number] [place] [address] Apr, [facility] [place] [facility] [address] [id number] [place] [address] Apr, [facility] [place] [facility] [address] [id number] [place] [address] Apr, [facility] [address] [id number] [place] [address] Apr, [facility] [place] [facility] [address] [id number] [place] [address] Apr, [facility] [place] [facility] [address] [id number] [place] [address] Apr, [facility] [place] [facility] [address] [id number] [place] [address] Apr, [facility] [place] [facility] [address] [id number] [place] [address] Apr, [facility] [place] [facility] [address] [id number] [place] [address] Apr, [facility] [place] [facility] [address] [id number] [place] [address] Apr, [facility] [place] [facility] [address] [id number] [place] [address] Apr, [facility] [place] [facility] [address] [id number] [place] [address] Apr, [facility] [place] [facility] [address] [id number] [place] [address] Apr, [facility] [place] [facility] [address] [id number] [place] [address] Apr, [facility] [place] [facility] [address] [id number], [place] [address] Apr, [facility] [place] [facility] [address] [id number] [place] [address] Mar, [facility] [place] [facility] [address] [id number] [place] [address] Mar, [facility] [place] [facility] [address] [id number] [place] [address] Mar, [facility] [place] [facility] [address] [id number], [place] [address] 30 Mar, 2012 [facility] [address] [id number] [place] [address] 18 Mar, 2012 [facility] [place] [facility] [address] [id number] [place] [address] 18 Mar, 2013 [facility] [address] [facility] [id number] [place] [address] 18 Mar, 2013 [facility] [place] [facility] [address] [id number] [place] [address] 18 Mar, 2013 [facility] [address] [id number] [place] [address] 17 Mar, 2013 [facility] [address] [id number] [place] [address] 17 Mar, 2013 [facility] [address] [id number] [place] [address] 05 Mar, 2013 [facility] [place] [facility] [address] [facility] [id number] [place] [address]- [address] 05 Mar, 2013 [facility] [address] [facility] [id number] [place] [address]- [address] 04 Mar, 2013 [facility] [place] [facility] [address] [facility] [id number] [place] [address]- [address] 04 Mar, 2013 [facility] [place] [facility] [address] [facility] [id number] [place] [address]- [address] 04 Mar, 2013 [facility] [place] [facility] [address] [id number], [place] [address] 04 Mar, 2013 [facility] [place] [facility] [address] [id number] [place] [address]- [address] 02 Mar, 2013 [facility] [place] [facility] [address] [facility] [id number] [place] [address]- [address] 02 Mar, 2013 [facility] [place] [facility] [address] [facility] [id number] [place] [address] Jan, [facility] [place] [facility] [address] [id number] [place] [address]- [address] Jan, [facility] [place] [facility] [address] [id number] [place] [address]- [address] Jan, [facility] [place] [facility] [address] [id number] [place] [address]- [address] Jan, [facility] [place] [facility] [address] [id number] [place] [address]- [address] Nov, [facility] [place] [facility] [address] [id number] [place] [address]- [address] Nov, [facility] [place] [facility] [address] [id number] [place] [address]- [address] Nov, [facility] [place] [facility] [address] [id number] [place] [address]- [address] Nov, [facility] [place] [facility] [address] [id number] [place] [address]- [address] Oct, [facility] [place] [facility] [address] [id number] [place] [address]- [address] Oct, [facility] [place] [facility] [address] [id number] [place] [address]- [address] Oct, [facility] [place] [facility] [address] [id number] [place] [address]- [address] Oct, [facility] [place] [facility] [address] [id number] [place] [address]- [address] Sep, [facility] [place] [facility] [address] [id number] [place] [address]- [address] Sep, [facility] [place] [facility] [address] [id number] [place] [address]- [address] Sep, [facility] [place] [facility] [address] [id number] [place] [address]- [address] Sep, [facility] [place] [facility] [address] [id number] [place] [address]- [address] Sep, [facility] [address] [address] [id number] [place] [address] Sep, [facility] [place] [facility] [address] [id number] [place] [address] Sep, [facility] [place] [facility] [address] [id number] [place] [address] Sep, [facility] [place] [facility] [address] [id number] [place] [address] Sep, [facility] [address] [id number] [place] [address] Aug, [facility] [place] [facility] [address] [id number] [place] [address] Aug, [facility] [place] [facility] [address] [id number] [place] [address] Aug, [facility] [place] [facility] [address] [id number] [place] [address] Aug, [facility] [place] [facility] [address] [id number] [place] [address] July, [facility] [place] [facility] [address] [id number] [place] [address] July, [facility] [place] [facility] [address] [id number] [place] [address] July, [facility] [place] [facility] [address] [id number] [place] [address] July, [facility] [place] [facility] [address] [id number] [place] [address] July, [facility] [place] [facility] [address] [id number] [place] [address] July, [facility] [place] [facility] [address] [id number] [place] [address] July, [facility] [place] [facility] [address] [id number] [address] Jun, [facility] [address] [id number] [address] May, [facility] [address] [id number], [place] [address] May, [facility] [address] [id number], [place] [address] May, [facility] [address], [place] [address] May, [facility] [address], [place] [address] May, [facility] [address], [place] [address] May, [facility] [address] [id number], [place] [address] May, [facility] [address] [id number], [place] [address] May, IMMUNIZATIONS No Known Immunizations SOCIAL HISTORY Never Assessed REASON FOR VISIT [facility] [place] PLAN OF CARE VITAL [...] Hospitalization History [facility] 03/10-03/12/2019 Hospitalization History [facility] ER 05/2018
--- NOTE | 2018-07-14 18:25 | ED General ---
General Chief Complaint: Respiratory Problems Stated Complaint: VOMITING Nursing Triage Note: PT PRESENTS TO ED VIA EMS FROM DIALYSIS. TOWARDS THE END OF HER DIALYSIS SHE BECAME SICK TO HER STOMACH AND WEAK. PT DID FINISH HER TREATMENT. EMS REPORTS PT WAS SATING AT 80% ON 4 L NC AND HAD VERY DIMINISHED BREATH SOUNDS. PT RECIEVED 1 DUONEB TREATMENT IN ROUTE. Nursing Sepsis Screen: No Definite Risk Source of Information: Patient Exam Limitations: No Limitations History of Present Illness Date Seen by Provider: Jul 14, 2018 Time Seen by Provider: 18:01 Initial Comments This 52 year old woman presents to the ER with complaints of shortness of air, nausea and vomiting shortly after leaving dialysis. She reportedly had 5 L removed during dialysis. Her took her to [place] to get something to eat after dialysis because she was hungry. She then became nearly unresponsive and very short of breath. A blood sugar was not checked prior to arrival. A DuoNeb treatment was administered in route. Crackles were reported to be present on auscultation by EMS. She reportedly had nausea and saturations of 80 percent on 4 L nasal cannula oxygen. She is afebrile at present. Fingerstick blood sugar was 347. Allergies and Home Medications Allergies Coded Allergies: aloe vera (Verified Allergy, Severe, RASH, 11/05/13) flu vaccine [id number](4 yr+) (Verified Allergy, Mild, HIVES, 04/22/12) adhesive (Verified Allergy, Unknown, 05/01/07) Uncoded Allergies: TAPE (Allergy, Mild, 05/16/10) Home Medications Amlodipine Besylate 10 Mg Tablet, 10 MG PO HS, (Reported) Aspirin 81 Mg Tablet.dr, 81 MG PO DAILY, (Reported) Fluticasone Propionate 16 Gm [place].susp, 1 SPRAY NA DAILY PRN for ALLERGIES, ( Reported) Furosemide 40 Mg Tablet, 40 MG PO DAILY, (Reported) Gabapentin 300 Mg Capsule, 300 MG PO TID, (Reported) Hydrocodone/Acetaminophen 1 Each Tablet, 1 TAB PO Q6H PRN for PAIN-MODERATE, ( Reported) Hydroxyzine HCl 25 Mg Tablet, 25 MG PO TID PRN for an, (Reported) Insulin Glargine,Hum.rec.anlog 100 Unit/1 Ml Insuln.pen, 30 UNITS SQ HS, ( Reported) Insulin Lispro 100 Unit/1 Ml Insuln.pen, SQ HS, (Reported) 100-200 = 12-16 UNITS ABOVE 300 = 20 UNITS ABOVE 400 = CALL Isosorbide Mononitrate 30 Mg Tab.er.24h, 30 MG PO HS, (Reported) Loratadine 10 Mg Tablet, 10 MG PO HS, (Reported) Metoprolol Tartrate 100 Mg Tablet, 100 MG PO BID, (Reported) Montelukast Sodium 10 Mg Tablet, 10 MG PO HS, (Reported) Naproxen 375 Mg Tablet, 375 MG PO BID PRN for PAIN-MILD, (Reported) Ondansetron 8 Mg Tab.rapdis, 8 MG PO Q8H PRN for NAUSEA/VOMITING-1ST LINE, ( Reported) Ondansetron 4 Mg Tab.rapdis, 4 MG SL Q4H PRN for NAUSEA/VOMITING Prescribed by: MIRTA BERRIOS on 06/05/18 0652 Rosuvastatin Calcium 20 Mg Tablet, 20 MG PO HS, (Reported) Sevelamer Carbonate 800 Mg Tablet, 3,200 MG PO BID WITH MEALS, (Reported) TAKES 4 (800MG) TABLETS WITH BREAKFAST AND SUPPER AND TAKES 2 (800MG) TABLETS WITH SNACK Sevelamer Carbonate 800 Mg Tablet, 1,600 MG PO DAILY WITH SNACK, (Reported) TAKES 2 (800MG) TABLETS Vit B Cmplx 3/FA/Vit C/Biotin 1 Each Tablet, 1 TAB PO DAILY, (Reported) Patient Home Medication List Home Medication List Reviewed: Yes Review of Systems Review of Systems Constitutional: no symptoms reported EENTM: no symptoms reported Respiratory: see HPI Cardiovascular: no symptoms reported Gastrointestinal: see HPI Genitourinary: no symptoms reported Musculoskeletal: no symptoms reported Skin: no symptoms reported Psychiatric/Neurological: See HPI Hematologic/Lymphatic: No Symptoms Reported Past Rcgymqp-Prwlux-Tyinbs Hx Past Med/Social Hx: Reviewed Nursing Past Med/Soc Hx Patient Social History Alcohol Use: Denies Use Recreational Drug Use: No Smoking Status: Never a Smoker 2nd Hand Smoke Exposure: No Recent Foreign Travel: No Contact w/Someone Who Travel: No Recent Infectious Disease Expo: No Recent Hopitalizations: No Physical Abuse: No Sexual Abuse: No Mistreated: No Fear: No Immunizations Up To Date Tetanus Booster (TDap): Less than 5yrs PED Vaccines UTD: No Date of Pneumonia Vaccine: Sep 02, 2013 Seasonal Allergies Seasonal Allergies: Yes Past Medical History Surgeries: Yes (DIALYSIS AV FISTULA/GRAFT LEFT UPPER ARM, LEFT BKA) Amputation, Arteriovenous Shunt, Cardiac, Section, Dialysis, Hysterectomy, Orthopedic, Tracheostomy, Vascular Surgery Respiratory: Yes Asthma, COPD, Emphysema Currently Using CPAP: No Currently Using BIPAP: No Cardiac: Yes Atrial Fibrillation, Chronic Edema/Swelling, Coronary Artery Disease, High Cholesterol, Hypertension, Peripheral Vascular Neurological: Yes Headaches /Migraines, Neuropathy 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 Disorders: 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 Sexually Transmitted Disease: No HIV/AIDS: No Genitourinary: Yes Renal Failure, Dialysis Gastrointestinal: Yes Chronic Constipation Musculoskeletal: Yes Arthritis, Chronic Back Pain, Fractures Endocrine: Yes Diabetes, Insulin dep HEENT: No Loss of Vision: Denies Hearing Impairment: Denies, Hard of Hearing Cancer: No Psychosocial: No Integumentary: Yes (DIABETIC ULCERS; CELLULITIS AND DRAINAGE FROM STUMP LEFT BKA) Blood Disorders: No Adverse Reaction/Blood Tranf: No Family Medical History Diabetes mellitus Family history: Asthma 09 BROTHER No Family History of: AIDS Abdominal aortic aneurysm [place]'s disease Alcoholism Alzheimer's disease Aphasia Arthritis Asthma Cancer of mouth Cardiovascular disease Cataracts Colon cancer Completed stroke Congenital disease Congenital heart disease Coronary thrombosis Cystic fibrosis Deafness or hearing loss Dementia Drug abuse Dysphasia Fibrocystic disease of breast Gastroenteritis Glaucoma Headache disorder Hypercholesterolemia Hypertension Infertility Kidney disease Myocardial infarction Neoplasm Not obtainable due to adoption Osteoporosis Parkinson's disease Prostate cancer Psychosocial problem Respiratory disorder Seizure disorder Severe allergy Thyroid disease Tuberculosis Visual disorder Physical Exam Vital Signs Vital Signs - First Documented 07/14/18 17:47 Temp 97.5 Pulse 69 Resp 26 B/P (MAP) 108/48 (68) Pulse Ox 91 O2 Delivery OxyMask O2 Flow Rate 6.00 Capillary Refill : Less Than 3 Seconds Height, Weight, BMI Height: 5'4.00" Weight: 285lbs. 0oz. 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 Norm as Tested, Other ( somnolent) Skin: Normal Color, Warm/Dry Focused Exam Lactate Level 07/14/18 19:05: Lactic Acid Level 2.73*H Lactic Acid Level Progress/Results/Core Measures Suspected Sepsis Recent Fever Within 48 Hours: No Infection Criteria Present: None New/Unexplained Altered Menta: No Sepsis Screen: No Definite Risk SIRS Temperature:97.5 Pulse: 69 Respiratory Rate: 26 Laboratory Tests 07/14/18 19:05: White Blood Count 13.7H Blood Pressure 108 /48 Mean: 68 07/14/18 19:05: Lactic Acid Level 2.73*H Laboratory Tests 07/14/18 19:05: Creatinine 5.29H, Platelet Count 139, Total Bilirubin 0.6 Results/Orders Lab Results Laboratory Tests Test 07/14/18 18:17 07/14/18 19:05 Range/Units Glucometer 347 H 70-110 MG/DL White Blood Count 13.7 H 4.3-11.0 10^3/uL Red Blood Count 3.30 L 4.35-5.85 10^6/uL Hemoglobin 10.5 L 11.5-16.0 G/DL Hematocrit 34 L 35-52 % Mean Corpuscular Volume 104 H 80-99 FL Mean Corpuscular Hemoglobin 32 25-34 PG Mean Corpuscular Hemoglobin Concent 31 L 32-36 G/DL Red Cell Distribution Width 17.3 H 10.0-14.5 % Platelet Count 139 130-400 10^3/uL Mean Platelet Volume 13.1 H 7.4-10.4 FL Neutrophils (%) (Auto) 76 H 42-75 % Lymphocytes (%) (Auto) 16 12-44 % Monocytes (%) (Auto) 6 0-12 % Eosinophils (%) (Auto) 3 0-10 % Basophils (%) (Auto) 0 0-10 % Neutrophils # (Auto) 10.4 H 1.8-7.8 X 10^3 Lymphocytes # (Auto) 2.1 1.0-4.0 X 10^3 Monocytes # (Auto) 0.8 0.0-1.0 X 10^3 Eosinophils # (Auto) 0.4 H 0.0-0.3 10^3/uL Basophils # (Auto) 0.0 0.0-0.1 10^3/uL Sodium Level 132 L 135-145 MMOL/L Potassium Level 5.5 H 3.6-5.0 MMOL/L Chloride Level 92 L 98-107 MMOL/L Carbon Dioxide Level 24 21-32 MMOL/L Anion Gap 16 H 5-14 MMOL/L Blood Urea Nitrogen 22 H 7-18 MG/DL Creatinine 5.29 H 0.60-1.30 MG/DL Estimat Glomerular Filtration Rate 9 BUN/Creatinine Ratio 4 Glucose Level 376 H 70-105 MG/DL Lactic Acid Level 2.73 *H 0.50-2.00 MMOL/L Calcium Level 9.8 8.5-10.1 MG/DL Corrected Calcium 10.0 8.5-10.1 MG/DL Magnesium Level 2.2 1.8-2.4 MG/DL Total Bilirubin 0.6 0.1-1.0 MG/DL Aspartate Amino Transf (AST/SGOT) 20 5-34 U/L Alanine Aminotransferase (ALT/SGPT) 14 0-55 U/L Alkaline Phosphatase 96 40-136 U/L Troponin I < 0.028 <0.028 NG/ML C-Reactive Protein High Sensitivity 1.01 H 0.00-0.50 MG/DL B-Type Natriuretic Peptide 190.2 H <100.0 PG/ML Total Protein 7.1 6.4-8.2 GM/DL Albumin 3.8 3.2-4.5 GM/DL Smear Scan YES My Orders Orders - MIRTA STAPLETON MD Albuterol/Ipra Inhalation Soln (Duoneb I (07/14/18 18:30) Svn Small Volume Nebulizer (07/14/18 18:18) Bipap (Bilevel) Set Up (07/14/18 18:18) Ondansetron Injection (Zofran Injectio (07/14/18 18:30) I-Stat Bedside Testing (07/14/18 19:03) Medications Given in ED Current Medications Medications Dose Ordered Sig/Lindy Route Start Time Stop Time Status Last Admin Dose Admin Albuterol/ Ipratropium 3 ml ONCE ONCE INH 07/14/18 18:30 07/14/18 18:31 DC 07/14/18 18:33 3 ML Ondansetron HCl 8 mg ONCE ONCE IVP 07/14/18 18:30 07/14/18 18:31 DC 07/14/18 18:48 8 MG Vital Signs/I&O 07/14/18 07/14/18 07/14/18 07/14/18 17:47 18:00 18:34 21:24 Temp 97.5 97.5 Pulse 69 69 68 Resp 26 24 24 B/P (MAP) 108/48 (68) 102/61 (75) Pulse Ox 91 97 100 100 O2 Delivery OxyMask OxyMask NIV Bilevel O2 Flow Rate 6.00 6.00 100.00 50.00 Capillary Refill : Less Than 3 Seconds Blood Pressure Mean: 68 Progress Note #1: Time: 18:26 Progress Note Patient was seen and examined. Labs are pending. BiPAP and a DuoNeb treatment were ordered. Chest x-ray pending. Progress Note #2: Time: 19:10 Progress Note Patient received a DuoNeb treatment and is now comfortable on BiPAP. Prior to BiPAP she would repeat "I can't breathe". She now reports her breathing is much improved. Labs are still pending as blood draw was difficult. I-STAT is being obtained. Although patient denies any chest pain, she does have EKG changes including ST elevation in V1, II and V2. EKG was reviewed with Dr. Evans. In his opinion patient should be monitored based on EKG changes alone. Although EKG changes could be related to electrolyte shifting with dialysis, ischemia cannot be ruled out. Chest x-ray is pending at this time. I anticipate transfer. Patient and are agreeable to this. I confirmed patient has a DNR status. Progress Note #3: Time: 20:05 Progress Note Nursing staff called to my attention the patient has had multiple hypotensive measurements. Her systolic blood pressures have been in the 80s and 90s. An arm cuff had been used on the wrist due to IV access in the upper arm and the hand. This was switched out with an appropriately sized and positioned wrist cuff and systolic blood pressure was 112. We will continue to monitor her blood pressures. Progress Note #4: Time: 20:48 Progress Note Patient remains comfortable on BiPAP. Oxygen saturations are stable. Last systolic blood pressure was 102. ECG Initial ECG Impression Date: Jul 14, 2018 Initial ECG Impression Time: 18:16 Initial ECG Rate: 71 Comment Sinus rhythm with first-degree AV block. ST elevation is present in II, V1, V2. Could represent electrolyte changes or ischemia. Probable RVH. Diagnostic Imaging Diagonstic Imaging: Xray Plain Films/CT/US/NM/MRI: chest Comments Chest x-ray viewed by me and report reviewed. See report below: NAME: VARGAS FISHER [facility] REC#: [id number] PT STATUS: REG ER : 1965 PHYSICIAN: ARLETTE DURÁN MD ADMIT DATE: 07/14/18/ER Signed Date of Exam: 07/14/18 CHEST 1 VIEW, AP/PA ONLY EXAMINATION: Portable chest. COMPARISON: Comparison made with a prior study from June 05, 2018. INDICATION: Shortness of breath. FINDINGS: Examination is again limited by the patient's large body habitus. There again appears to be enlargement of the cardiac silhouette as well as abnormal prominence of the pulmonary vascularity suggesting a component of failure and edema. No large effusion evident. There is no evidence of a pneumothorax. IMPRESSION: 1. Limited examination secondary to large body habitus. There again appear to be findings suggesting congestive failure and pulmonary edema with stable enlargement of the cardiac silhouette. Dictated by: Dictated on workstation # [id number] Dict: 07/14/181919 Trans: 07/14/181950 Interpreted by: ZAMZAM KELLY MD Electronically signed by: ZAMZAM KELLY MD 07/14/181950 Departure Impression Primary Impression: Respiratory failure Qualified Codes: J96.21 - Acute and chronic respiratory failure with hypoxia Additional Impressions: End stage renal failure on dialysis ST elevation Hyperkalemia COPD exacerbation Disposition: XF [facility] Condition: Stable Transfer Time Spoke to Accepting Phy: 19:24 Transfer Progress Notes Case was discussed with Dr. Townsend at [facility]. He excepts the case. Based on information available at the time of discussion, he did not request any further orders. Transfer Time: 21:37 Transfer Facility: [facility] Method of Transfer: EMS Departure-Patient Inst. Referrals: [facility] (PCP/Family) Primary Care Physician MIRTA STAPLETON MD Jul 14, 2018 18:25
[2018-07-14] MEDS ORDERED: ONDANSETRON 4 MG/2 ML (SDV) Z0FRAN IVP ONE (18:30)
[2018-07-14] MEDS ORDERED: RT-ALBUTEROL/IPRATROPIUM 3 ML (DUONEB) VIAL INH ONE (18:30)
[2018-07-14 19:17] LABS: BASOPHILS % (AUTO) 0 % (0-10); EOSINOPHILS # (AUTO) 0.4 10^3/uL (0.0-0.3); EOSINOPHILS % (AUTO) 3 % (0-10); HEMATOCRIT 34 % (35-52); HEMOGLOBIN 10.5 G/DL (11.5-16.0); LYMPHOCYTES # (AUTO) 2.1 X 10^3 (1.0-4.0); LYMPHOCYTES % (AUTO) 16 % (12-44); MEAN CORPUSCULAR HEMOGLOBIN 32 PG (25-34); MEAN CORPUSCULAR HGB CONC 31 G/DL (32-36); MEAN CORPUSCULAR VOLUME 104 FL (80-99); MEAN PLATELET VOLUME 13.1 FL (7.4-10.4); MONOCYTES # (AUTO) 0.8 X 10^3 (0.0-1.0); MONOCYTES % (AUTO) 6 % (0-12); NEUTROPHILS # (AUTO) 10.4 X 10^3 (1.8-7.8); NEUTROPHILS % (AUTO) 76 % (42-75); PLATELET COUNT 139 10^3/uL (130-400); RED CELL DISTRIBUTION WIDTH 17.3 % (10.0-14.5); WHITE BLOOD COUNT 13.7 10^3/uL (4.3-11.0)
[2018-07-14 19:20] LABS: SMEAR SCAN COMMENT YES
--- NOTE | 2018-07-14 19:27 | Diagnostic Imaging Report ---
EXAMINATION: Portable chest. COMPARISON: Comparison made with a prior study from June 05, 2018. INDICATION: Shortness of breath. FINDINGS: Examination is again limited by the patient's large body habitus. There again appears to be enlargement of the cardiac silhouette as well as abnormal prominence of the pulmonary vascularity suggesting a component of failure and edema. No large effusion evident. There is no evidence of a pneumothorax. IMPRESSION: 1. Limited examination secondary to large body habitus. There again appear to be findings suggesting congestive failure and pulmonary edema with stable enlargement of the cardiac silhouette. Dictated by: Dictated on workstation # [id number]
[2018-07-14 19:51] LABS: ALANINE AMINOTRANSFERASE 14 U/L (0-55); ALBUMIN 3.8 GM/DL (3.2-4.5); ALKALINE PHOSPHATASE 96 U/L (40-136); BILIRUBIN,TOTAL 0.6 MG/DL (0.1-1.0); BUN/CREATININE RATIO 4; CALCIUM 9.8 MG/DL (8.5-10.1); CARBON DIOXIDE 24 MMOL/L (21-32); CHLORIDE 92 MMOL/L (98-107); CREATININE SERUM 5.29 MG/DL (0.60-1.30); GFR ESTIMATED 9; GLUCOSE 376 MG/DL (70-105); MAGNESIUM 2.2 MG/DL (1.8-2.4); POTASSIUM 5.5 MMOL/L (3.6-5.0); SODIUM 132 MMOL/L (135-145); TOTAL PROTEIN 7.1 GM/DL (6.4-8.2)
[2018-07-14 21:24] VITALS: BP 102/61
== END 2018-07-14 21:37 | disposition short-term general hospital (02) ==
LOC: EDUNIT# 17:41 → ER 17:42
DX: J96.90 Respiratory failure, unspecified, unspecified whether with hypoxia or hypercapnia (principal); I21.3 ST elevation (STEMI) myocardial infarction of unspecified site; J44.1 Chronic obstructive pulmonary disease with (acute) exacerbation; E11.22 Type 2 diabetes mellitus with diabetic chronic kidney disease; I12.0 Hypertensive chronic kidney disease with stage 5 chronic kidney disease or end stage renal disease; N18.6 End stage renal disease; E87.6 Hypokalemia; I48.91 Unspecified atrial fibrillation; E78.00 Pure hypercholesterolemia, unspecified; I25.10 Atherosclerotic heart disease of native coronary artery without angina pectoris; E11.51 Type 2 diabetes mellitus with diabetic peripheral angiopathy without gangrene; I73.9 Peripheral vascular disease, unspecified; G43.909 Migraine, unspecified, not intractable, without status migrainosus; Z98.51 Tubal ligation status; Z88.7 Allergy status to serum and vaccine; Z79.82 Long term (current) use of aspirin; Z79.51 Long term (current) use of inhaled steroids; Z79.4 Long term (current) use of insulin; Z96.652 Presence of left artificial knee joint; Z90.710 Acquired absence of both cervix and uterus; Z98.890 Other specified postprocedural states; Z93.0 Tracheostomy status; Z99.2 Dependence on renal dialysis
CPT/HCPCS: 36415; 71045; 80053; 82962; 83605; 83735; 83880; 84484; 85025; 86141; 87040; 93005; 93041; 94640; 94660; 96374

== ENCOUNTER 2018-07-30 15:32 | Emergency (ER) | payer MEDICARE, MEDICAID ==
[~2018-07-30] VITALS: Ht 157.5 cm; Wt 122.5 kg
[2018-07-30] MEDS ORDERED: RT-ALBUTEROL SULF 2.5 MG/3 ML PRE-MIX VIAL INH STA (15:36)
--- OUTSIDE RECORDS SUMMARY | 2018-07-30 15:37 | XMS REPORT | Clinical Summary ---
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 If you do not see the information that you expected, contact Release of Information in the Health Information Management department at [phone] for further assistance in locating additional records.[facility] Allergies Not on File Medications Not [...] 09/15/2017 VACCINE (1 of 2) INFLUENZA VACCINE 12/30/2018 Results Not on filefrom Last 3 Months Insurance Type Payer Benefit Subscriber ID Effective Phone Address Plan / Dates Group Medicare MEDICARE MEDICARE xxxxxxxxxx 2013-P PART A AND resent B Medicare MEDICARE MEDICARE xxxxxxxxxx 2014- TRANSPLANT Present (Home) [place] [address] Advance Directives Patient has advance care planning documents on file. For more information, please contact: [address] [address]
--- OUTSIDE RECORDS SUMMARY | 2018-07-30 15:39 | XMS REPORT ---
Author Author Migration, Doctor Organization [facility] Address Unknown Phone Unavailable Care Team Providers Care Culinary Chef Name Role Phone Migration, Doctor Unavailable Unavailable PROBLEMS Type Condition ICD9-CM Code HNI29-BQ Code Onset Dates Condition Status SNOMED Code Problem Cellulitis of right lower extremity L03.115 Active 276301861 Problem Neuropathy G62.9 Active 400985931 Problem Renal failure N19 Active 58600847 Problem Intra-dialytic hypotension I95.3 Active 723695225 Problem Amput below knee, unilat S88.119A Active 95691966 Problem Seasonal allergic rhinitis due to other allergic trigger J30.89 Active 328880179 Problem Chronic congestive heart failure, unspecified congestive heart failure type I50.9 Active 39812837 Problem Other chronic pain G89.29 Active 57005153 Problem 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 Active 0424596 Problem Primary insomnia F51.01 Active 5805117 Problem Paroxysmal atrial fibrillation I48.0 Active 857151362 Problem Angina pectoris I20.9 Active 308457017 Problem Type 2 diabetes mellitus with hyperglycemia, unspecified whether care home insulin use E11.65 Active 140323292680519 Problem Chronic congestive heart failure, unspecified heart failure type I50.9 Active 94537380 Problem Self-care deficit for toileting R46.0 Active 889295554 Problem Bronchitis J40 Active 13181376 Problem Observed sleep apnea G47.30 Active 72276575 Problem Unsteady gait R26.81 Active 934242851 ALLERGIES No Information ENCOUNTERS Encounter Location Date Diagnosis [facility] [address] [facility] [id number] [address] Jun, [place] [address], [place] [address] May, [place] [id number], [place] [address] 8768 May, Diabetes type 2, controlled E11.9 [place] [address] [place] [id number] [place] [address] 30987- 3219 May, [facility] [id number] [place] [address] 22936- 0611 May, Pressure injury of coccygeal region, stage 2 L89.152 ; Nausea R11.0 ; Chronic congestive heart failure, unspecified congestive heart failure type I50.9 ; Observed sleep apnea G47.30 and Morbid obesity E66.01 [facility] [id number] [place] [address] [id number] May, [facility] [id number] [place] [address] 41723- 2064 May, [facility] [id number] [place] [address] 79751- 9030 May, [facility] [id number] [place] [address] 47226- 8810 May, [facility] [id number] [place] [address] 02208- 6742 May, [facility] [id number] [place] [address] 29034- 1312 18 May, 2018 Renal failure N19 [facility] [id number] [place] [address] 99833- 3650 14 May, 2018 [facility] [id number] [place] [address] 23179- 9085 13 May, 2018 Neuropathy G62.9 and Renal failure N19 [facility] [id number] [place] [address] 39692- 2719 08 May, 2018 [facility] [id number] [place] [address] 59083- 2903 07 May, 2018 [facility] [id number] [place] [address] 93109- 6502 04 May, 2018 [facility] [id number] [place] [address] 53002- 7816 Apr, [facility] [address] [address] [id number] [place] [address] 49809- 5334 Apr, [facility] [id number] [place] [address] 53379- 0399 Apr, [facility] [id number] [place] [address] 29134- 0738 Mar, Diabetes type 2, controlled E11.9 [facility] [id number] [place] [address] 52354- 6054 Mar, Paroxysmal atrial fibrillation I48.0 ; Observed sleep apnea G47.30 ; Unsteady gait R26.81 and Bilious vomiting with nausea R11.14 [facility] [address] [address] [id number] [place] [address] 91143- 2750 Mar, [facility] [address] 90180- 2858 Mar, [facility] [id number] [place] [address] 18747- 1127 Mar, [facility] [address] [address] [id number] [place] [address] 96767- 7715 Mar, [facility] [address] [id number] [place] [address] 54830- 0708 Mar, Diabetes type 2, controlled E11.9 ; BMI 50.0-59.9, adult Z68.43 ; Bronchitis J40 and Other chronic pain G89.29 [facility] [address] [id number] [place] [address] 58270- 3313 Mar, [facility] [id number] [place] [address] 66279- 4228 05 Mar, 2018 [facility] [address] [id number] [place] [address] 90445- 8335 14 Jan, 2018 [facility] [address] [id number] [place] [address] 43828- 8681 Jan, [facility] [address], [place] [address]- 0202 Dec, [facility] [address] [id number] [place] [address] 13513- 1844 Dec, [facility] [address] [address] [id number] [place] [address] 65183- 2182 Dec, [facility] [address] [address] [id number] [place] [address] 13129- 6189 Nov, Pneumonia due to infectious organism, unspecified laterality , unspecified part of lung J18.9 and Self-care deficit for toileting R46.0 [facility] [address] [address] [id number] [place] [address] 49652- 6948 Nov, [facility] [address] [address] [id number] [place] [address] 93952- 6244 Oct, Diabetes type 2, controlled E11.9 ; Primary insomnia F51.01 and Bilateral headaches R51 [facility] [address] [address] [id number] [place] [address] 74721- 6401 Oct, [facility] [address] [address] [id number] [place] [address] 38913- 2635 Sep, [facility] [address] [place] [address] [id number] Sep, Dental examination Z01.20 and Dental caries K02.9 [facility] [id number] [place] [address] 73932- 1984 Sep, [facility] [address] [id number] [place] [address] 26173- 9666 Sep, [facility] [address] [id number] [place] [address] 86555- 9793 Sep, Other chronic pain G89.29 and Pain in right knee M25.561 [facility] [address] [address] [id number] [place] [address] 03402- 5787 Sep, [facility] [address] [facility] [id number], [place] [address]- 9371 Aug, [facility] [address] [facility] [id number], [place] [address]- 8463 Aug, 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 [facility] [address] [facility] [id number], [place] [address]- 6036 Aug, [facility] [address] [facility] [id number] [place] [address] 19133- 3636 Aug, Diabetes type 2, controlled E11.9 and Acute pain of right knee M25.561 [facility] [address] [place] [address], [place] [address]- 0726 Aug, [facility] [address] [place] [id number], [place] [address]- 2883 July, [facility] [address], [place] [address]- 9092 Jun, [facility] [address] [place] [id number], [place] [address]- 4096 Jun, [facility] [address], [place] [address]- 3795 Jun, Diabetes type 2, controlled E11.9 [facility] [address] [facility] [id number], [place] [address]- 6775 Jun, [facility] [address] [facility] [id number], [place] [address]- 8184 May, [facility] [address] [facility] [id number] [place] [address]- 9761 May, [facility] [address] [facility] [id number], [place] [address]- 9301 May, [facility] [address] [place] [id number], [place] [address]- 4702 May, Chronic congestive heart failure, unspecified congestive heart failure type I50.9 [facility] [id number] [place] [address] 17809- 8166 May, Diabetes type 2, controlled E11.9 ; BMI 50.0-59.9, adult Z68.43 ; Chronic congestive heart failure, unspecified heart failure type I50.9 ; Angina pectoris I20.9 ; Seasonal allergic rhinitis due to other allergic trigger J30.89 and Renal failure N19 [facility] [address] [id number] [place] [address] [id number] May, [facility] [address] [id number] [place] [address] 31822- 6614 May, [facility] [address] [place] [id number] [place] [address] 54505- 3663 May, [facility] [address] [id number] [place] [address] 67082- 1043 May, [facility] [address] [place] [id number] [place] [address] 67297- 7521 May, [facility] [address] [place] [id number] [place] [address] 82773- 3896 Apr, BMI 50.0-59.9, adult Z68.43 [facility] [address] [place] [id number] [place] [address] 66678- 4642 Apr, BMI 50.0-59.9, adult Z68.43 ; Post-procedural fever R50.82 and Bronchitis J40 [facility] [address] [place] [address] 96348- 8235 Apr, Chronic congestive heart failure, unspecified congestive heart failure type I50.9 [facility] [address] [place] [id number] [place] [address] 68027- 3311 Jan, [facility] [address] [id number] [place] [address] 78959- 5859 Jan, Diabetes type 2, controlled E11.9 [facility] [address] [place] [id number] [place] [address] 31135- 8635 Jan, Neuropathy G62.9 [facility] [address], [place] [address]- 2966 Jan, [facility] [address] [place] [id number], [place] [address]- 6414 Jan, [facility] [address], [place] [address]- 1313 Jan, [facility] [address] [place] [id number], [place] [address]- 5904 Jan, [facility] [id number] [place] [address] 75643- 5422 Jan, [facility] [address], [place] [address]- 1497 Dec, [facility] [address] [place] [id number] [place] [address] 03389- 7918 Dec, [facility] [address], [place] [address]- 3094 Dec, Diabetes type 2, controlled E11.9 [facility] [address], [place] [address]- 5568 Dec, [facility] [address], [place] [address]- 8869 Dec, [facility] [address], [place] [address]- 4900 Dec, Chronic congestive heart failure, unspecified congestive heart failure type I50.9 [facility] [address] [place] [id number], [place] [address]- 3584 Dec, [facility] [address], [place] [address]- 7295 Dec, [facility] [address] [id number], [place] [address]- 9579 Nov, Chronic congestive heart failure, unspecified congestive heart failure type I50.9 [facility] [address] [id number], [place] [address]- 7226 Nov, Chronic congestive heart failure, unspecified congestive heart failure type I50.9 [facility] [address] [id number], [place] [address]- 8154 Nov, [facility] [address], [place] [address]- 3340 Oct, [facility] [address], [place] [address]- 2828 Oct, [facility] [address] [id number] [place] [address] 85580- 6532 Oct, Chronic congestive heart failure, unspecified congestive heart failure type I50.9 [facility] [address], [place] [address]- 1808 Oct, [facility] [address] [place] [id number] [place] [address] 87886- 7400 Oct, Pneumonia of both lungs due to infectious organism, unspecified part of lung J18.9 [facility] [address], [place] [address]- 8635 Oct, [facility] [address], [place] [address]- 1038 Oct, Diabetes type 2, controlled E11.9 [facility] [address], [place] [address]- 5490 Oct, Diabetes type 2, controlled E11.9 [facility] [address], [place] [address]- 8122 Sep, [facility] [address], [place] [address]- 2438 Sep, Neuropathy G62.9 [facility] [address], [place] [address]- 1727 Aug, Intra-dialytic hypotension I95.3 [facility] [address] [facility] [id number] [place] [address] 2546 July, [facility] [address] [id number] [place] [address] 2546 July, [facility] [id number] [place] [address] 2546 July, [facility] [id number] [place] [address], [place] [address] 2546 July, Amput below knee, unilat S88.119A [facility] [address] [place] [address] 2546 May, [facility] [address] [id number] [place] [address] 2546 May, Neuropathy G62.9 [facility] [id number] [place] [address]- 9286 May, [facility] [address] [place] [address] 2549 May, [facility] [address] [place] [address]- 7676 May, [facility] [address] [place] [address]- 7086 May, [facility] [address], [place] [address]- 3306 May, Neuropathy G62.9 [facility] [address], [place] [address] 2547 Apr, [facility] [address] [id number] [place] [address] 2546 Apr, [facility] [address] [place] [address]- 2540 Apr, Diabetes type 2, controlled E11.9 and Renal failure N19 [facility] [address] [place] [address] -3022 Apr, [facility] [address] [place] [address]- 5734 Apr, [facility] [address] [place] [address]- 7825 Mar, [facility] [id number] [place] [address] 26440- 4848 Mar, [facility] [address] [place] [address]- 0382 Mar, [facility] [id number] [place] [address], [place] [address]- 6686 Mar, [facility] [id number] [place] [address], [place] [address]- 8356 Mar, [facility] [id number] [place] [address] 43495- 0928 Jan, Localized edema R60.0 [facility] [address], [place] [address]- 8127 Jan, [facility] [id number] [place] [address] 96704- 8798 Jan, [facility] [address], [place] [address]- 2518 Jan, [facility] [address], [place] [address]- 6117 Jan, [facility] [address], [place] [address]- 3380 Jan, [facility] [id number] [place] [address] 58277- 2797 Jan, [facility] [address], [place] [address]- 9310 Dec, Diabetes type 2, controlled E11.9 and Chronic nonintractable headache, unspecified headache type R51 [facility] [address], [place] [address]- 0613 Dec, [facility] [id number] [place] [address] 31954- 5349 Dec, [facility] [id number] [place] [address] 71229- 7558 Nov, [facility] [id number] [place] [address] 33127- 3885 Nov, [facility] [id number] [place] [address] 74354- 3092 Oct, [facility] [id number] [place] [address] 66112- 6590 Oct, Migraine without status migrainosus, not intractable, unspecified migraine type G43.909 [facility] [id number] [place] [address] 98768- 3668 Oct, [facility] [id number] [place] [address] 12870- 3062 Sep, Amput below knee, unilat S88.119A and Neuropathy G62.9 [facility] [id number] [place] [address] 31098- 8753 Sep, [facility] [id number] [place] [address] 28818- 7351 Sep, [facility] [id number] [place] [address] 14272- 8965 Sep, [facility] [id number] [place] [address] 83091- 9572 Aug, [facility] [id number] [place] [address] 82319- 8672 Aug, [facility] [id number] [place] [address] 36610- 2697 Aug, Diabetes type 2, controlled E11.9 [facility] [id number] [place] [address]- 4979 07 Aug, 2015 [facility] [address] [facility] [id number] [place] [address]- 4560 Jun, Diabetes type 2, controlled E11.9 and Neuropathy G62.9 [facility] [address] [id number] [place] [address]- 5967 14 Jul, 2015 [facility] [address] [facility] [id number] [place] [address]- 7555 Jun, [facility] [address] [facility] [id number] [place] [address]- 3560 Jun, [facility] [address] [facility] [id number] [place] [address]- 2544 Jun, [facility] [address] [facility] [id number] [place] [address]- 4957 May, [facility] [address] [facility] [id number] [place] [address]- 1408 May, Diabetes type 2, controlled E11.9 [facility] [address] [facility] [id number] [place] [address]- 2916 May, [facility] [address] [facility] [id number] [place] [address]- 6151 May, [facility] [address] [facility] [id number] [place] [address]- 1442 May, [facility] [address] [facility] [id number] [place] [address]- 6512 May, [facility] [address] [facility] [id number] [place] [address]- 4115 May, [facility] [address] [facility] [id number] [place] [address]- 1149 May, [facility] [address] [facility] [id number] [place] [address]- 5762 May, [facility] [address], [place] [address]- 5804 15 May, 2015 COPD (chronic obstructive pulmonary disease) J44.9 [facility] [address], [place] [address]- 4246 15 May, 2015 [facility] [address], [place] [address]- 4328 May, [facility] [address], [place] [address]- 9038 May, [facility] [address], [place] [address]- 5995 May, [facility] [address], [place] [address]- 9780 May, [facility] [address], [place] [address]- 8351 May, Renal failure N19 and Pneumonia, organism unspecified, unspecified laterality, unspecified part of lung J18.9 [facility] [address] [address] Apr, [facility] [address] [address] Apr, [facility] [address] [address] Apr, [facility] [address], [place] [address] Apr, Diabetes mellitus 250.00 [facility] [address] [address] Apr, [facility] [address] [place] [address] Apr, [facility] [id number] [address] Apr, [facility] [address] [place] [address] 07 Apr, 2015 [facility] [place] [facility] [address] [id number] [place] [address] 31 Mar, 2015 [facility] [place] [facility] [address] [id number] [place] [address] 28 Mar, 2015 [facility] [place] [facility] [address] [id number] [place] [address] 23 Mar, 2015 [facility] [place] [facility] [address] [id number] [place] [address] 16 Mar, 2015 Renal failure N19 [facility] [place] [facility] [address] [id number] [place] [address], [place] [address]- [address] 14 Mar, 2015 [facility] [place] [facility] [address] [facility] [id number] [place] [address] [address] 07 Mar, 2015 [facility] [place] [facility] [address] [facility] [id number] [place] [address] Mar, [facility] [place] [facility] [address] [id number] [place] [address] 24 Jan, 2015 [facility] [place] [facility] [address] [id number] [place] [address] 18 Jan, 2015 [facility] [place] [facility] [address] [facility] [id number] [place] [address] [address] 17 Jan, 2015 [facility] [place] [facility] [address] [address] [id number] [place] [address] Jan, [facility] [place] [facility] [address] [id number] [place] [address] 2788 Dec, [facility] [place] [facility] [address] [id number] [place] [address] 3194 Dec, [facility] [place] [facility] [address] [facility] [id number] [place] [address] 2546 Dec, [facility] [place] [facility] [address] [facility] [id number] [place] [address] 2438 Nov, [facility] [address] [facility] [id number] [place] [address] Nov, [facility] [id number] [place] [address] Nov, [facility] [id number] [place] [address] 67[address] Oct, [facility] [address] [facility] [id number] [place] [address], [place] [address] 3959 Oct, [facility] [address] [id number] [place] [address], [place] [address]- 4614 Oct, Renal failure 586 and Obesity 278.00 [facility] [address] [id number] [address] 89[address] Oct, [facility] [id number] [place] [address]- 4998 Oct, [facility] [id number] [address] 3499 Oct, [facility] [id number] [place] [address]- 4983 Sep, [facility] [id number] [address] 3111 Sep, [facility] [address] [address] 4[address] Sep, Diabetes mellitus 250.00 and Congestive heart failure, unspecified 428.0 [facility] [address] [address] 2874 Aug, [facility] [id number], [place] [address]- 2481 Aug, [facility] [address] [address] 2850 Aug, [facility] [address], [place] [address] 5560 July, [facility] [address] [id number] [place] [address]- 6897 July, [facility] [address] [id number] [place] [address]- 1572 July, Heart murmur, systolic 785.2 [facility] [address] [id number] [place] [address]- 2285 July, [facility] [address] [id number] [place] [address]- 5050 July, [facility] [address] [id number] [place] [address]- 0323 Jun, [facility] [address] [id number] [place] [address]- 5034 Jun, [facility] [address] [id number] [place] [address]- 1986 May, [facility] [address] [id number] [place] [address]- 2499 23 May, 2014 [facility] [address] [id number] [place] [address]- 7889 18 May, 2014 [facility] [address] [id number] [place] [address]- 7926 18 May, 2014 [facility] [address] [id number] [place] [address]- 7206 16 May, 2014 [facility] [address] [id number] [place] [address]- 0369 16 May, 2014 [facility] [address] [id number] [place] [address]- 9201 10 May, 2014 [facility] [address] [id number] [place] [address]- 0719 10 May, 2014 [facility] [address] [id number] [place] [address]- 4921 09 May, 2014 [facility] [place] [facility] [address] [id number] [place] [address]- 0341 May, 2014 [facility] [place] [facility] [address] [id number] [place] [address]- 1465 May, 2014 [facility] [place] [facility] [address] [id number] [place] [address]- 8287 May, 2014 [facility] [place] [facility] [address] [id number] [place] [address]- 9453 May, 2014 [facility] [place] [facility] [address] [id number] [place] [address]- 9330 May, 2014 [facility] [place] [facility] [address] [id number] [place] [address]- 6146 May, 2014 [facility] [place] [facility] [address] [facility] [id number] [place] [address]- 6832 May, 2014 [facility] [place] [facility] [address] [facility] [id number] [place] [address]- 7224 May, 2014 [facility] [place] [facility] [address] [id number] [place] [address]- 5080 May, 2014 [facility] [place] [facility] [address] [facility] [id number] [place] [address]- 4638 May, 2014 [facility] [place] [facility] [address] [facility] [id number] [place] [address]- 0753 May, 2014 [facility] [place] [facility] [address] [id number] [place] [address]- 0490 16 May, 2014 [facility] [place] [facility] [address] [id number] [place] [address]- 7584 16 May, 2014 [facility] [place] [facility] [address] [facility] [id number] [place] [address]- 1734 May, 2014 [facility] [place] [facility] [address] [facility] [id number] [place] [address]- 0501 May, 2014 [facility] [place] [facility] [address] [id number] [place] [address]- 6619 May, [facility] [place] [facility] [address] [id number] [place] [address]- 8575 May, [facility] [place] [facility] [address] [id number] [place] [address]- 4196 Apr, [facility] [place] [facility] [address] [id number] [place] [address]- 5523 Apr, [facility] [place] [facility] [address] [id number] [place] [address]- 4735 Apr, [facility] [place] [facility] [address] [id number] [place] [address]- 4460 Apr, [facility] [place] [facility] [address] [id number] [place] [address]- 2439 Apr, [facility] [place] [facility] [address] [id number] [place] [address]- 9453 Apr, [facility] [place] [facility] [address] [id number] [place] [address]- 5538 Apr, [facility] [place] [facility] [address] [id number] [place] [address]- 1795 Apr, [facility] [place] [facility] [address] [id number] [place] [address]- 9160 Mar, [facility] [place] [facility] [address] [id number] [place] [address]- 9937 Mar, [facility] [place] [facility] [address] [id number] [place] [address]- 1589 Mar, [facility] [place] [facility] [address] [id number] [place] [address]- 0516 Mar, [facility] [place] [facility] [address] [id number] [place] [address]- 0286 Mar, [facility] [place] [facility] [address] [id number] [place] [address]- 3387 Mar, [facility] [place] [facility] [address] [id number] [place] [address]- 5050 Mar, [facility] [place] [facility] [address] [id number] [place] [address]- 9475 Mar, [facility] [place] [facility] [address] [id number] [place] [address]- 5811 Mar, [facility] [place] [facility] [address] [id number] [place] [address]- 9295 Mar, [facility] [place] [facility] [address] [id number] [place] [address]- 7377 Mar, [facility] [place] [facility] [address] [id number] [place] [address]- 5609 Mar, [facility] [place] [facility] [address] [id number] [place] [address]- 2706 Mar, [facility] [place] [facility] [address] [id number] [place] [address]- 2096 Mar, [facility] [place] [facility] [address] [id number] [place] [address]- 6348 Mar, [facility] [place] [facility] [address] [id number] [place] [address]- 3642 Mar, [facility] [place] [facility] [address] [id number] [place] [address]- 1219 Mar, [facility] [place] [facility] [address] [id number] [place] [address]- 9225 Mar, [facility] [place] [facility] [address] [id number] [place] [address]- 2540 Mar, [facility] [place] [facility] [address] [id number] [place] [address]- 0618 Mar, [facility] [place] [facility] [address] [id number] [place] [address]- 4553 Mar, [facility] [place] [facility] [address] [id number] [place] [address]- 9091 Mar, [facility] [place] [facility] [address] [id number] [place] [address]- 5056 Jan, [facility] [place] [facility] [address] [id number] [place] [address]- 5335 Jan, [facility] [place] [facility] [address] [id number] [place] [address]- 3373 Jan, [facility] [place] [facility] [address] [id number] [place] [address]- 8932 Jan, [facility] [place] [facility] [address] [id number] [place] [address]- 4873 Jan, [facility] [place] [facility] [address] [id number] [place] [address]- 2159 Jan, [facility] [place] [facility] [address] [id number] [place] [address]- 2918 Jan, [facility] [place] [facility] [address] [id number] [place] [address]- 3122 Jan, [facility] [place] [facility] [address] [id number] [place] [address]- 5247 Jan, [facility] [place] [facility] [address] [id number] [place] [address]- 1913 Jan, [facility] [place] [facility] [address] [id number] [place] [address]- 2083 Jan, [facility] [place] [facility] [address] [id number] [address]- 2783 Jan, [facility] [place] [facility] [address] [id number] [place] [address]- 2756 Jan, [facility] [place] [facility] [address] [id number] [place] [address]- 8382 Jan, [facility] [place] [facility] [address] [id number], [place] [address]- 2962 Jan, [facility] [place] [facility] [address] [id number] [place] [address]- 1724 Jan, [facility] [place] [facility] [address] [id number] [place] [address]- 2625 Jan, [facility] [place] [facility] [address] [id number] [place] [address]- 0771 Jan, [facility] [place] [facility] [address] [id number] [place] [address]- 6777 Jan, [facility] [place] [facility] [address] [id number] [place] [address]- 7117 Jan, [facility] [place] [facility] [address] [id number] [place] [address]- 9883 Dec, [facility] [place] [facility] [address] [id number] [place] [address]- 1067 Dec, [facility] [place] [facility] [address] [id number] [place] [address]- 5097 Dec, [facility] [place] [facility] [address] [id number] [place] [address]- 0885 Dec, [facility] [place] [facility] [address] [id number] [place] [address]- 1160 Dec, [facility] [place] [facility] [address] [id number] [place] [address]- 4131 Dec, [facility] [place] [facility] [address] [id number] [place] [address]- 2187 14 Dec, 2013 [facility] [place] [facility] [address] [id number] [place] [address]- 7796 Dec, [facility] [place] [facility] [address] [id number] [place] [address]- 0612 10 Dec, 2013 [facility] [place] [facility] [address] [id number] [place] [address]- 0710 08 Dec, 2013 [facility] [place] [facility] [address] [id number] [place] [address]- 8128 08 Dec, 2013 [facility] [place] [facility] [address] [id number] [place] [address]- 9053 Dec, [facility] [place] [facility] [address] [id number] [place] [address]- 9111 Dec, [facility] [place] [facility] [address] [id number] [place] [address]- 8899 Dec, [facility] [place] [facility] [address] [id number] [place] [address]- 5615 Dec, [facility] [place] [facility] [address] [id number] [place] [address]- 5409 22 Nov, 2013 [facility] [place] [facility] [address] [id number] [place] [address]- 3794 22 Nov, 2013 [facility] [place] [facility] [address] [id number] [place] [address]- 2305 19 Nov, 2013 [facility] [place] [facility] [address] [id number] [place] [address]- 7877 19 Nov, 2013 [facility] [place] [facility] [address] [id number] [place] [address] 2541 13 Nov, 2013 [facility] [place] [facility] [address] [id number] [place] [address]- 2544 13 Nov, 2013 [facility] [place] [facility] [address] [id number] [place] [address]- 5840 10 Nov, 2013 [facility] [place] [facility] [address] [id number] [place] [address]- 2545 10 Nov, 2013 [facility] [place] [facility] [address] [id number] [place] [address]- 2540 08 Sep, 2013 [facility] [place] [facility] [address] [id number] [place] [address]- 2549 05 Sep, 2013 [facility] [place] [facility] [address] [id number] [place] [address]- 2542 05 Sep, 2013 [facility] [place] [facility] [address] [id number] [place] [address]- 3999 Nov, [facility] [place] [facility] [address] [id number] [place] [address]- 8360 Nov, [facility] [place] [facility] [address] [id number] [place] [address]- 7282 Oct, [facility] [place] [facility] [address] [id number] [place] [address]- 3836 Oct, [facility] [place] [facility] [address] [id number] [place] [address]- 1959 Oct, [facility] [place] [facility] [address] [id number] [place] [address]- 3076 Oct, [facility] [place] [facility] [address] [id number] [place] [address]- 6434 Oct, [facility] [place] [facility] [address] [id number] [place] [address]- 3427 Sep, [facility] [place] [facility] [address] [id number] [place] [address]- 1617 Sep, [facility] [place] [facility] [address] [id number] [place] [address]- 7437 Sep, [facility] [place] [facility] [address] [id number] [place] [address]- 4100 Sep, [facility] [place] [facility] [address] [id number] [place] [address]- 7809 Aug, [facility] [place] [facility] [address] [id number] [place] [address]- 2206 Aug, [facility] [place] [facility] [address] [id number] [place] [address]- 1939 Aug, [facility] [place] [facility] [address] [id number] [place] [address]- 7312 Aug, [facility] [place] [facility] [address] [id number] [place] [address]- 1216 Aug, [facility] [place] [facility] [address] [id number] [place] [address]- 7532 Aug, [facility] [place] [facility] [address] [id number] [place] [address]- 6420 Aug, [facility] [place] [facility] [address] [id number] [place] [address]- 1858 Aug, [facility] [place] [facility] [address] [id number] [place] [address]- 5905 Aug, [facility] [place] [facility] [address] [id number] [place] [address]- 8496 Aug, [facility] [place] [facility] [address] [id number] [place] [address]- 6350 Aug, [facility] [place] [facility] [address] [id number] [place] [address]- 7857 Aug, [facility] [place] [facility] [address] [id number] [place] [address]- 8100 Aug, [facility] [place] [facility] [address] [id number] [place] [address]- 6156 Aug, [facility] [place] [facility] [address] [id number], [place] [address]- 2287 Aug, [facility] [place] [facility] [address] [id number], [place] [address]- 9931 Aug, [facility] [place] [facility] [address] [id number], [place] [address]- 3322 Aug, [facility] [place] [facility] [address] [id number] [place] [address]- 7901 Aug, [facility] [place] [facility] [address] [id number], [place] [address]- 5871 Aug, [facility] [place] [facility] [address] [id number], [place] [address]- 4303 Aug, [facility] [place] [facility] [address] [id number], [place] [address]- 0293 Aug, [facility] [place] [facility] [address] [id number] [place] [address]- 6926 Aug, [facility] [place] [facility] [address] [id number] [place] [address]- 9572 Aug, [facility] [place] [facility] [address] [id number] [place] [address]- 3833 Aug, [facility] [place] [facility] [address] [id number] [place] [address]- 7802 July, [facility] [place] [facility] [address] [id number] [place] [address]- 1450 July, [facility] [place] [facility] [address] [id number] [place] [address]- 9773 July, [facility] [place] [facility] [address] [id number] [place] [address]- 6347 July, [facility] [place] [facility] [address] [id number] [place] [address]- 7278 July, [facility] [place] [facility] [address] [id number] [place] [address]- 8213 July, [facility] [place] [facility] [address] [id number] [place] [address]- 8729 Jun, [facility] [place] [facility] [address] [id number] [place] [address]- 4502 Jun, [facility] [place] [facility] [address] [id number] [place] [address]- 8998 Jun, [facility] [place] [facility] [address] [id number] [place] [address]- 3569 Jun, [facility] [place] [facility] [address] [id number] [place] [address]- 4972 Jun, [facility] [place] [facility] [address] [id number] [place] [address]- 4874 Jun, [facility] [place] [facility] [address] [id number] [place] [address]- 0761 Jun, [facility] [place] [facility] [address] [id number] [place] [address]- 0516 Jun, [facility] [place] [facility] [address] [id number] [place] [address]- 9286 Jun, [facility] [place] [facility] [address] [id number] [place] [address]- 8162 Jun, [facility] [place] [facility] [address] [id number] [place] [address]- 1367 Jun, [facility] [place] [facility] [address] [id number] [place] [address]- 6609 Jun, [facility] [place] [facility] [address] [id number] [place] [address]- 0943 Jun, [facility] [place] [facility] [address] [id number] [place] [address]- 1344 Jun, [facility] [place] [facility] [address] [id number] [place] [address] Jun, [facility] [place] [facility] [address] [id number] [place] [address] May, [facility] [place] [facility] [address] [id number] [place] [address] May, [facility] [place] [facility] [address] [id number] [place] [address] 92[address] May, [facility] [place] [facility] [address] [id number] [place] [address] May, [facility] [place] [facility] [address] [id number] [place] [address] May, [facility] [place] [facility] [address] [id number] [place] [address] May, [facility] [place] [facility] [address] [id number] [place] [address] May, [facility] [place] [facility] [address] [id number] [place] [address] May, [facility] [place] [facility] [address] [id number] [place] [address]- [address] May, [facility] [place] [facility] [address] [id number] [place] [address] May, [facility] [place] [facility] [address] [id number] [place] [address]206 May, [facility] [place] [facility] [address] [id number] [place] [address] 47[address] May, [facility] [place] [facility] [address] [id number] [place] [address]- 6[address] May, [facility] [place] [facility] [address] [id number] [place] [address] May, [facility] [place] [facility] [address] [id number] [place] [address]130 May, [facility] [place] [facility] [address] [id number] [place] [address] May, [facility] [place] [facility] [address] [id number] [place] [address]- [address]21 May, [facility] [place] [facility] [address] [id number] [place] [address] Apr, [facility] [place] [facility] [address] [id number] [place] [address] Apr, [facility] [place] [facility] [address] [id number] [place] [address] Apr, [facility] [place] [facility] [address] [id number] [place] [address] 8415 Apr, [facility] [place] [facility] [address] [id number] [place] [address] 9748 Apr, [facility] [place] [facility] [address] [id number] [place] [address]- [address] 10 Apr, 2013 [facility] [address] [id number] [place] [address] 47[address] Apr, [facility] [place] [facility] [address] [id number] [place] [address] Apr, [facility] [address] [id number] [place] [address]- [address]294 Apr, [facility] [address] [id number] [place] [address] Apr, [facility] [address] [id number] [place] [address]- 48[address] Apr, [facility] [address] [id number] [place] [address] Apr, [facility] [address] [id number] [place] [address]- [address] Apr, [facility] [address] [id number] [place] [address] 2844 Apr, [facility] [address] [id number] [place] [address] 4515 Apr, [facility] [address] [id number] [place] [address]107 Apr, [facility] [address] [id number] [place] [address] 6[address] Mar, [facility] [address] [id number] [place] [address] 4[address] Mar, [facility] [place] [facility] [address] [id number] [place] [address]- 9143 Mar, [facility] [place] [facility] [address] [id number] [place] [address] Mar, [facility] [place] [facility] [address] [id number] [place] [address]- 6244 Mar, [facility] [address] [id number] [place] [address]- [address] 18 Mar, 2013 [facility] [place] [facility] [address] [id number] [place] [address]- [address]328 Mar, [facility] [place] [facility] [address] [id number] [place] [address]- [address] 18 Mar, 2013 [facility] [place] [facility] [address] [id number] [place] [address]- [address]76 Mar, [facility] [place] [facility] [address] [id number] [place] [address]- 1042 Mar, [facility] [place] [facility] [address] [id number] [place] [address]- 3238 Mar, [facility] [place] [facility] [address] [id number] [place] [address]- 4421 Mar, [facility] [place] [facility] [address] [id number] [place] [address]- 9827 Mar, [facility] [place] [facility] [address] [id number] [place] [address]- 4178 Mar, [facility] [place] [facility] [address] [id number] [place] [address]- 3421 Mar, [facility] [place] [facility] [address] [id number] [place] [address]- [address]19 Mar, [facility] [place] [facility] [address] [id number], [place] [address] Mar, [facility] [place] [facility] [address] [id number] [place] [address]- 4104 Mar, [facility] [place] [facility] [address] [id number] [place] [address]- 8496 Jan, [facility] [place] [facility] [address] [id number] [place] [address]- [address]108 Jan, [facility] [place] [facility] [address] [id number] [place] [address]- 0847 Jan, [facility] [address] [id number] [place] [address]- 4182 Jan, [facility] [place] [facility] [address] [id number] [place] [address]- 1429 Nov, [facility] [place] [facility] [address] [id number] [place] [address]- 8836 Nov, [facility] [place] [facility] [address] [id number] [place] [address]- 3034 Nov, [facility] [place] [facility] [address] [id number] [place] [address]- 4366 Nov, [facility] [place] [facility] [address] [id number] [place] [address]- 6948 Oct, [facility] [address] [id number] [place] [address]- 9013 Oct, [facility] [place] [facility] [address] [id number] [place] [address]- 0092 Oct, [facility] [place] [facility] [address] [id number] [place] [address]- 1760 Oct, [facility] [place] [facility] [address] [id number] [place] [address]- 4111 Sep, [facility] [place] [facility] [address] [id number] [place] [address]- 4765 Sep, [facility] [place] [facility] [address] [id number] [place] [address]- 6921 Sep, [facility] [place] [facility] [address] [id number] [place] [address]- 0204 Sep, [facility] [place] [facility] [address] [id number] [place] [address]- 3195 Sep, [facility] [place] [facility] [address] [id number] [place] [address]- 8248 Sep, [facility] [place] [facility] [address] [id number] [place] [address]- 2640 Sep, [facility] [address] [id number] [place] [address] Sep, [facility] [place] [facility] [address] [id number] [place] [address] Sep, [facility] [place] [facility] [address] [id number] [place] [address] Aug, [facility] [place] [facility] [address] [id number] [place] [address] Aug, [facility] [place] [facility] [address] [id number] [place] [address] Aug, [facility] [address] [id number] [place] [address] Aug, [facility] [address] [id number] [place] [address] July, [facility] [address] [id number] [place] [address] July, [facility] [address] [id number] [place] [address] July, [facility] [address] [id number] [place] [address] July, [facility] [place] [facility] [address] [id number] [place] [address] July, [facility] [place] [facility] [address] [id number] [place] [address] July, [facility] [place] [facility] [address] [id number] [place] [address] July, [facility] [place] [facility] [address] [id number] [place] [address] Jun, [facility] [place] [facility] [address] [id number] [place] [address] May, [facility] [address] [facility] [id number], [place] [address] May, [facility] [address] [facility] [id number], [place] [address] May, [facility] [address] [id number], [place] [address] May, [facility] [address], [place] [address] May, [facility] [address] [id number], [place] [address] May, [facility] [address], [place] [address] May, [facility] [address] [id number], [place] [address] May, IMMUNIZATIONS No Known Immunizations SOCIAL HISTORY Never Assessed REASON FOR VISIT [facility] PLAN OF CARE VITAL SIGNS [...] Hospitalization History [facility] 03/10-03/12/2019 Hospitalization History [facility] ER 05/2018
--- NOTE | 2018-07-30 15:41 | ED Respiratory ---
General Chief Complaint: Respiratory Problems Stated Complaint: SOB Source: patient, EMS Exam Limitations: no limitations History of Present Illness Date Seen by Provider: July 30, 2018 Time Seen by Provider: 15:28 Initial Comments Patient arrives by EMS with chief complaint of shortness of breath today. She was supposed to get Saturday dialysis but today was double booked so they said they would or tomorrow. She says the history of COPD and diabetes. Blood sugar was 444 per EMS and she had eaten lunch but did not take her 20 units of NovoLog with lunch. She was given a DuoNeb and her oxygen sats went from 75% on 2 L nasal cannula baseline oxygen up to 94% with a DuoNeb. Patient says she felt a little better. She took 2 puffs of her own albuterol today earlier. She's not been coughing anything up and denies any fevers or chills. She denies nausea chest pain abdominal pain diarrhea or constipation. Allergies and Home Medications Allergies Coded Allergies: aloe vera (Verified Allergy, Severe, RASH, 11/05/13) flu vaccine [id number](4 yr+) (Verified Allergy, Mild, HIVES, 04/22/12) adhesive (Verified Allergy, Unknown, 05/01/07) Uncoded Allergies: TAPE (Allergy, Mild, 05/16/10) Home Medications Amlodipine Besylate 10 Mg Tablet, 10 MG PO HS, (Reported) Aspirin 81 Mg Tablet.dr, 81 MG PO DAILY, (Reported) Fluticasone Propionate 16 Gm [place].susp, 1 SPRAY NA DAILY PRN for ALLERGIES, ( Reported) Furosemide 40 Mg Tablet, 40 MG PO DAILY, (Reported) Gabapentin 300 Mg Capsule, 300 MG PO TID, (Reported) Hydrocodone/Acetaminophen 1 Each Tablet, 1 TAB PO Q6H PRN for PAIN-MODERATE, ( Reported) Hydroxyzine HCl 25 Mg Tablet, 25 MG PO TID PRN for an, (Reported) Insulin Glargine,Hum.rec.anlog 100 Unit/1 Ml Insuln.pen, 30 UNITS SQ HS, ( Reported) Insulin Lispro 100 Unit/1 Ml Insuln.pen, SQ HS, (Reported) 100-200 = 12-16 UNITS ABOVE 300 = 20 UNITS ABOVE 400 = CALL Isosorbide Mononitrate 30 Mg Tab.er.24h, 30 MG PO HS, (Reported) Loratadine 10 Mg Tablet, 10 MG PO HS, (Reported) Metoprolol Tartrate 100 Mg Tablet, 100 MG PO BID, (Reported) Montelukast Sodium 10 Mg Tablet, 10 MG PO HS, (Reported) Naproxen 375 Mg Tablet, 375 MG PO BID PRN for PAIN-MILD, (Reported) Ondansetron 8 Mg Tab.rapdis, 8 MG PO Q8H PRN for NAUSEA/VOMITING-1ST LINE, ( Reported) Ondansetron 4 Mg Tab.rapdis, 4 MG SL Q4H PRN for NAUSEA/VOMITING Prescribed by: MIRTA BERRIOS on 06/05/18 0652 Rosuvastatin Calcium 20 Mg Tablet, 20 MG PO HS, (Reported) Sevelamer Carbonate 800 Mg Tablet, 3,200 MG PO BID WITH MEALS, (Reported) TAKES 4 (800MG) TABLETS WITH BREAKFAST AND SUPPER AND TAKES 2 (800MG) TABLETS WITH SNACK Sevelamer Carbonate 800 Mg Tablet, 1,600 MG PO DAILY WITH SNACK, (Reported) TAKES 2 (800MG) TABLETS Vit B Cmplx 3/FA/Vit C/Biotin 1 Each Tablet, 1 TAB PO DAILY, (Reported) Patient Home Medication List Home Medication List Reviewed: Yes Review of Systems Review of Systems Constitutional: No chills, No diaphoresis EENTM: No ear discharge, No hearing loss, No ear pain Respiratory: cough; No phlegm; short of breath, wheezing Cardiovascular: No chest pain, No palpitations Gastrointestinal: No abdominal pain, No nausea Genitourinary: No discharge, No dysuria Musculoskeletal: No back pain, No joint pain Past Molxpdu-Sruytb-Hnojpa Hx Patient Social History Alcohol Use: Denies Use Recreational Drug Use: No Smoking Status: Former Smoker 2nd Hand Smoke Exposure: Yes Recent Foreign Travel: No Contact w/Someone Who Travel: No Recent Hopitalizations: No Immunizations Up To Date Tetanus Booster (TDap): Less than 5yrs PED Vaccines UTD: No Date of Pneumonia Vaccine: Sep 02, 2013 Seasonal Allergies Seasonal Allergies: Yes Past Medical History Surgeries: Yes (DIALYSIS AV FISTULA/GRAFT LEFT UPPER ARM, LEFT BKA) Amputation, Arteriovenous Shunt, Cardiac, Section, Dialysis, Hysterectomy, Orthopedic, Tracheostomy, Vascular Surgery Respiratory: Yes Asthma, COPD, Emphysema Currently Using CPAP: No Currently Using BIPAP: No Cardiac: Yes Atrial Fibrillation, Chronic Edema/Swelling, Coronary Artery Disease, High Cholesterol, Hypertension, Peripheral Vascular Neurological: Yes Headaches /Migraines, Neuropathy 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 Disorders: No JAVA SOFTWARE History: Tubal Ligation Sexually Transmitted Disease: No HIV/AIDS: No Genitourinary: Yes Renal Failure, Dialysis Gastrointestinal: Yes Chronic Constipation Musculoskeletal: Yes Arthritis, Chronic Back Pain, Fractures Endocrine: Yes Diabetes, Insulin dep HEENT: No Loss of Vision: Denies Hearing Impairment: Denies, Hard of Hearing Cancer: No Psychosocial: No Integumentary: Yes (DIABETIC ULCERS; CELLULITIS AND DRAINAGE FROM STUMP LEFT BKA) Blood Disorders: No Adverse Reaction/Blood Tranf: No Family Medical History Diabetes mellitus Family history: Asthma 09 BROTHER No Family History of: AIDS Abdominal aortic aneurysm But[place]'s disease Alcoholism Alzheimer's disease Aphasia Arthritis Asthma Cancer of mouth Cardiovascular disease Cataracts Colon cancer Completed stroke Congenital disease Congenital heart disease Coronary thrombosis Cystic fibrosis Deafness or hearing loss Dementia Drug abuse Dysphasia Fibrocystic disease of breast Gastroenteritis Glaucoma Headache disorder Hypercholesterolemia Hypertension Infertility Kidney disease Myocardial infarction Neoplasm Not obtainable due to adoption Osteoporosis Parkinson's disease Prostate cancer Psychosocial problem Respiratory disorder Seizure disorder Severe allergy Thyroid disease Tuberculosis Visual disorder Physical Exam Vital Signs - First Documented 07/30/18 15:32 Temp 97.8 Pulse 52 Resp 16 B/P (MAP) 84/47 (59) Pulse Ox 94 O2 Delivery Non Rebreather O2 Flow Rate 10.00 Capillary Refill : Height: 5'4.00" Weight: 285lbs. 0oz. 129.628136yc; 53.4 BMI Method:Stated General Appearance: mild distress, obese, other Eyes: Bilateral Eye Normal Inspection, Bilateral Eye PERRL, Bilateral Eye EOMI HEENT: normal ENT inspection, TMs normal, pharynx normal Neck: full range of motion, normal inspection Respiratory: respiratory distress (Mild), decreased breath sounds, accessory muscle use (mild), wheezing (mild bilateral) Cardiovascular: normal peripheral pulses, regular rate, rhythm Gastrointestinal: non tender, soft Neurologic/Psychiatric: alert, oriented x 3 Skin: normal color, warm/dry Progress/Results/Core Measures Suspected Sepsis SIRS Temperature: Pulse: Respiratory Rate: Laboratory Tests 07/30/18 16:08: White Blood Count 10.3 Blood Pressure / Mean: Laboratory Tests 07/30/18 16:08: Creatinine 7.31H, Platelet Count 179, Total Bilirubin 0.5 Results/Orders Lab Results Laboratory Tests Test 07/30/18 16:08 07/30/18 17:58 Range/Units White Blood Count 10.3 4.3-11.0 10^3/uL Red Blood Count 3.15 L 4.35-5.85 10^6/uL Hemoglobin 10.3 L 11.5-16.0 G/DL Hematocrit 33 L 35-52 % Mean Corpuscular Volume 106 H 80-99 FL Mean Corpuscular Hemoglobin 33 25-34 PG Mean Corpuscular Hemoglobin Concent 31 L 32-36 G/DL Red Cell Distribution Width 19.8 H 10.0-14.5 % Platelet Count 179 130-400 10^3/uL Mean Platelet Volume 7.4-10.4 FL Neutrophils (%) (Auto) 66 42-75 % Lymphocytes (%) (Auto) 24 12-44 % Monocytes (%) (Auto) 7 0-12 % Eosinophils (%) (Auto) 2 0-10 % Basophils (%) (Auto) 0 0-10 % Neutrophils # (Auto) 6.8 1.8-7.8 X 10^3 Lymphocytes # (Auto) 2.5 1.0-4.0 X 10^3 Monocytes # (Auto) 0.7 0.0-1.0 X 10^3 Eosinophils # (Auto) 0.3 0.0-0.3 10^3/uL Basophils # (Auto) 0.0 0.0-0.1 10^3/uL Sodium Level 134 L 135-145 MMOL/L Potassium Level 6.4 H 3.6-5.0 MMOL/L Chloride Level 94 L 98-107 MMOL/L Carbon Dioxide Level 24 21-32 MMOL/L Anion Gap 16 H 5-14 MMOL/L Blood Urea Nitrogen 33 H 7-18 MG/DL Creatinine 7.31 H 0.60-1.30 MG/DL Estimat Glomerular Filtration Rate 6 BUN/Creatinine Ratio 5 Glucose Level 458 *H 70-105 MG/DL Calcium Level 8.8 8.5-10.1 MG/DL Corrected Calcium 9.1 8.5-10.1 MG/DL Magnesium Level 2.6 H 1.8-2.4 MG/DL Total Bilirubin 0.5 0.1-1.0 MG/DL Aspartate Amino Transf (AST/SGOT) 24 5-34 U/L Alanine Aminotransferase (ALT/SGPT) 18 0-55 U/L Alkaline Phosphatase 106 40-136 U/L C-Reactive Protein High Sensitivity 1.68 H 0.00-0.50 MG/DL Total Protein 7.0 6.4-8.2 GM/DL Albumin 3.6 3.2-4.5 GM/DL My Orders Orders - SHEREEPATRICK Ld Chest 1 View, Ap/Pa Only (07/30/18 15:36) Albuterol Pre-Mix Nebs (Rt) (Proventil (07/30/18 15:36) Albuterol/Ipra Inhalation Soln (Duoneb I (07/30/18 15:45) Arterial Blood Gas (07/30/18 15:36) Cbc With Automated Diff (07/30/18 15:36) Comprehensive Metabolic Panel (07/30/18 15:36) Hs C Reactive Protein (07/30/18 15:36) Magnesium (07/30/18 15:36) Svn Small Volume Nebulizer (07/30/18 15:36) Continuous Ekg Monitoring (07/30/18 15:36) Insulin Aspart (Novolog) (Novolog (Charg (07/30/18 15:45) Accucheck Stat ONCE (07/30/18 17:55) Prednisone Tablet (Deltasone Tablet) (07/30/18 18:00) Medications Given in ED Current Medications Medications Dose Ordered Sig/Lindy Route Start Time Stop Time Status Last Admin Dose Admin Albuterol/ Ipratropium 3 ml ONCE ONCE INH 07/30/18 15:45 07/30/18 15:46 DC 07/30/18 15:45 3 ML Insulin Aspart 25 unit ONCE ONCE SC 07/30/18 15:45 07/30/18 15:46 DC 07/30/18 16:28 25 UNIT Vital Signs/I&O 07/30/18 07/30/18 15:32 15:50 Temp 97.8 Pulse 52 Resp 16 B/P (MAP) 84/47 (59) Pulse Ox 94 92 O2 Delivery Non Rebreather Simple Mask O2 Flow Rate 10.00 6.00 Capillary Refill : Progress Note #1: Time: 17:04 Progress Note DuoNeb helped some so we are giving her an hour-long. Chest x-ray doesn't reveal any edema so most likely this is COPD. We will get some basic labs. Progress Note #2: Time: 18:05 Progress Note RT and nursing were unable to obtain an ABG however after getting the breathing treatment the patient's sitting up by the phone on her baseline oxygen with her oxygen sats 97-99%. She's conversational, smiling and says she is ready go home. She has clear lung sounds with no wheezing auscultated in all floyd. We discussed steroids but she says steroids make her feel really high so were going to try a very low-dose 10 mg. Repeat Accu-Chek showed her blood sugars 377 so we'll have her take an extra 10 units with dinner. Diagnostic Imaging Diagonstic Imaging: Xray Plain Films/CT/US/NM/MRI: chest Comments [facility] [place], [place] NAME: VARGAS FISHER [facility] REC#: [id number] PT STATUS: REG ER : 1965 PHYSICIAN: PATRICK BENTLEY MD ADMIT DATE: 07/30/18/ER Draft Date of Exam:07/30/18 CHEST 1 VIEW, AP/PA ONLY INDICATION: Hypoxemia. EXAMINATION: Portable chest at 4:23 PM. FINDINGS: There is cardiomegaly. The pulmonary vascularity is normal. The lungs are clear. IMPRESSION: Cardiomegaly without evidence of pulmonary venous hypertension. Dictated on workstation # [id number] Dict: 07/30/18 1641 Trans: 07/30/18 1643 [id number] Interpreted by: ARLETTE DASILVA MD Electronically signed by: Reviewed: Reviewed by Me Departure Impression Primary Impression: COPD exacerbation Disposition: 01 HOME, SELF-CARE Condition: Improved Departure-Patient Inst. Decision time for Depature: 18:07 Referrals: [facility] (PCP/Family) Primary Care Physician Patient Instructions: Exacerbation of COPD (DC) Add. Discharge Instructions: Use your albuterol 2 puffs every 6 hours for the next couple days. Use 2 puffs every 2 hours have breakthrough wheezing or shortness of breath. Keep follow-up appointment with dialysis tomorrow morning. For the next 3 days please Do 10 mg of prednisone once a day in the morning. Prednisone will make her blood sugars go up but this is short-lived. Take an extra 10 units of NovoLog with your meals in addition to the 20 units you typically take until you're done with steroids. Hold that extra 10 units if your blood sugar is less than 200. All discharge instructions reviewed with patient and/or family. Voiced understanding. Scripts Prednisone (Prednisone) 10 Mg Tab.ds.pk 10 MG PO DAILY for 3 Days, #3 EA 0 Refills Take 6 tabs(60mg)daily,decrease by 1 tab(10MG)daily. Prov: PATRICK BENTLEY 07/30/18 PATRICK BENTLEY July 30, 2018 15:41
[2018-07-30] MEDS ORDERED: RT-ALBUTEROL/IPRATROPIUM 3 ML (DUONEB) VIAL INH ONE (15:45)
[2018-07-30] MEDS ORDERED: inSUlin ASPART (NovoLOG) 1 UNIT/0.01 ML (CHARGE PER UNIT) SC ONE (15:45)
--- NOTE | 2018-07-30 15:45 | NUR ---
RT HERE FOR BREATHING TX AND ABG.
[2018-07-30 16:19] LABS: BASOPHILS % (AUTO) 0 % (0-10); EOSINOPHILS # (AUTO) 0.3 10^3/uL (0.0-0.3); EOSINOPHILS % (AUTO) 2 % (0-10); HEMATOCRIT 33 % (35-52); HEMOGLOBIN 10.3 G/DL (11.5-16.0); LYMPHOCYTES # (AUTO) 2.5 X 10^3 (1.0-4.0); LYMPHOCYTES % (AUTO) 24 % (12-44); MEAN CORPUSCULAR HEMOGLOBIN 33 PG (25-34); MEAN CORPUSCULAR HGB CONC 31 G/DL (32-36); MEAN CORPUSCULAR VOLUME 106 FL (80-99); MONOCYTES # (AUTO) 0.7 X 10^3 (0.0-1.0); MONOCYTES % (AUTO) 7 % (0-12); NEUTROPHILS # (AUTO) 6.8 X 10^3 (1.8-7.8); NEUTROPHILS % (AUTO) 66 % (42-75); PLATELET COUNT 179 10^3/uL (130-400); RED CELL DISTRIBUTION WIDTH 19.8 % (10.0-14.5); WHITE BLOOD COUNT 10.3 10^3/uL (4.3-11.0)
[2018-07-30 16:42] LABS: ALBUMIN 3.6 GM/DL (3.2-4.5); BILIRUBIN,TOTAL 0.5 MG/DL (0.1-1.0); CALCIUM 8.8 MG/DL (8.5-10.1); CREATININE SERUM 7.31 MG/DL (0.60-1.30); MAGNESIUM 2.6 MG/DL (1.8-2.4); POTASSIUM 6.4 MMOL/L (3.6-5.0)
--- NOTE | 2018-07-30 16:43 | Diagnostic Imaging Report ---
INDICATION: Hypoxemia. EXAMINATION: Portable chest at 4:23 PM. FINDINGS: There is cardiomegaly. The pulmonary vascularity is normal. The lungs are clear. IMPRESSION: Cardiomegaly without evidence of pulmonary venous hypertension. Dictated by: Dictated on workstation # [id number]
--- NOTE | 2018-07-30 17:20 | NUR ---
MIKE CALLED FOR A ABG
--- NOTE | 2018-07-30 17:40 | NUR ---
PT'S PULSE OX ON 4LNC 97%.
[2018-07-30] MEDS ORDERED: predniSONE 10 MG TAB PO ONE (18:00)
[2018-07-30] MEDS ORDERED: PRED10TA22 PO (18:09)
[2018-07-30 18:22] VITALS: BP 105/97
== END 2018-07-30 18:22 | disposition home or self-care (01) ==
LOC: EDUNIT# 15:32 → ER 15:33
DX: J43.9 Emphysema, unspecified (principal); I48.91 Unspecified atrial fibrillation; I25.10 Atherosclerotic heart disease of native coronary artery without angina pectoris; E78.00 Pure hypercholesterolemia, unspecified; G43.909 Migraine, unspecified, not intractable, without status migrainosus; E11.42 Type 2 diabetes mellitus with diabetic polyneuropathy; E11.51 Type 2 diabetes mellitus with diabetic peripheral angiopathy without gangrene; I73.9 Peripheral vascular disease, unspecified; E11.22 Type 2 diabetes mellitus with diabetic chronic kidney disease; I12.0 Hypertensive chronic kidney disease with stage 5 chronic kidney disease or end stage renal disease; N18.6 End stage renal disease; Z91.14 Patient's other noncompliance with medication regimen; Z87.19 Personal history of other diseases of the digestive system; Z89.512 Acquired absence of left leg below knee; Z98.51 Tubal ligation status; Z88.7 Allergy status to serum and vaccine; Z91.048 Other nonmedicinal substance allergy status; Z79.82 Long term (current) use of aspirin; Z79.4 Long term (current) use of insulin; Z87.891 Personal history of nicotine dependence; Z90.710 Acquired absence of both cervix and uterus; Z98.890 Other specified postprocedural states; Z99.2 Dependence on renal dialysis; Z93.0 Tracheostomy status
CPT/HCPCS: 36415; 71045; 80053; 82962; 83735; 85025; 86141; 94640

== ENCOUNTER 2018-07-31 13:11 | Emergency (ER) | payer MEDICARE, MEDICAID ==
[~2018-07-31] VITALS: Ht 162.6 cm; Wt 127.5 kg
[~2018-07-31 13:11] MED LIST changes: +PRED10TA22 PO
--- OUTSIDE RECORDS SUMMARY | 2018-07-31 13:26 | XMS REPORT | Clinical Summary ---
Author Author [facility] Organization [facility] Address Unknown Phone Unavailable Care Team Providers Care Digital Account Manager Name Role Phone Mario Carver MD PCP Unavailable Source Comments Some departments are not documenting in the electronic medical record. If you do not see the information that you expected, contact Release of Information in the Health Information Management department at [phone] for further assistance in locating additional records.[facility] Allergies Not on File Medications Not [...] MEDICARE MEDICARE xxxxxxxxxx 2014- TRANSPLANT Present (Home) [place] [address] Advance Directives Patient has advance care planning documents on file. For more information, please contact: [address] [address]
[2018-07-31] MEDS ORDERED: NS IV 1000 ML 1,000 ML IV SCH (13:30)
[2018-07-31] MEDS ORDERED: RT-ALBUTEROL/IPRATROPIUM 3 ML (DUONEB) VIAL INH ONE (14:00)
[2018-07-31 14:07] LABS: BASOPHILS % (AUTO) 0 % (0-10); EOSINOPHILS # (AUTO) 0.3 10^3/uL (0.0-0.3); EOSINOPHILS % (AUTO) 3 % (0-10); HEMATOCRIT 35 % (35-52); HEMOGLOBIN 10.1 G/DL (11.5-16.0); LYMPHOCYTES # (AUTO) 1.8 X 10^3 (1.0-4.0); LYMPHOCYTES % (AUTO) 17 % (12-44); MEAN CORPUSCULAR HEMOGLOBIN 32 PG (25-34); MEAN CORPUSCULAR HGB CONC 29 G/DL (32-36); MEAN CORPUSCULAR VOLUME 109 FL (80-99); MEAN PLATELET VOLUME 13.1 FL (7.4-10.4); MONOCYTES # (AUTO) 0.7 X 10^3 (0.0-1.0); MONOCYTES % (AUTO) 6 % (0-12); NEUTROPHILS # (AUTO) 7.6 X 10^3 (1.8-7.8); NEUTROPHILS % (AUTO) 74 % (42-75); PLATELET COUNT 155 10^3/uL (130-400); WHITE BLOOD COUNT 10.4 10^3/uL (4.3-11.0)
[2018-07-31 14:15] VITALS: BP 76/30
[2018-07-31 14:24] LABS: ALBUMIN 3.9 GM/DL (3.2-4.5); BILIRUBIN,TOTAL 0.5 MG/DL (0.1-1.0); CALCIUM 8.6 MG/DL (8.5-10.1); CREATININE SERUM 4.83 MG/DL (0.60-1.30); POTASSIUM 4.3 MMOL/L (3.6-5.0); TOTAL PROTEIN 7.2 GM/DL (6.4-8.2)
--- NOTE | 2018-07-31 15:25 | Diagnostic Imaging Report ---
INDICATION: Syncope. COMPARISON: 07/30/2018. EXAMINATION: Single frontal radiographic view of the chest was obtained. FINDINGS: There is persistent marked cardiomegaly and mild pulmonary vascular congestion. There is also persistent slight diffuse prominence of the pulmonary interstitium. There is asymmetric elevation of the right hemidiaphragm. No large effusion or pneumothorax is seen on either side. Osseous structures show no gross acute abnormality. IMPRESSION: Cardiomegaly with pulmonary vascular congestion and probable interstitial pulmonary edema. Dictated by: Dictated on workstation # [id number]
[2018-07-31 16:21] LABS: ABG BASE EXCESS 6.8 MMOL/L (-2.5-2.5); ABG OXYGEN SATURATION 95 % (94-100); ABG PCO2 48 MMHG (35-45); ABG PH 7.43 (7.37-7.43); ABG PO2 68 MMHG (79-93)
[2018-07-31 16:24] LABS: ALLENS TEST YES-POS; INSPIRED O2 36; VENTILATOR NO
[2018-07-31 16:25] LABS: PATIENT TEMP 96.6
--- NOTE | 2018-07-31 16:27 | Diagnostic Imaging Report ---
PROCEDURE: CT head and CT cervical spine without contrast. TECHNIQUE: Multiple contiguous axial images were obtained through the brain and cervical spine without the use of intravenous contrast. Sagittal and coronal reformations through the cervical spine were then performed. Auto Exposure Controls were utilized during the CT exam to meet ALARA standards for radiation dose reduction. INDICATION: Fell, head and neck pain. COMPARISON: There are no prior studies available for comparison. FINDINGS: CT of the head: This exam is less than optimal due to motion and streak artifact. There is no mass, shift of the midline, or hemorrhage to suggest an acute intracranial abnormality. The normal tentorial blush is evident. The ventricles are not abnormally dilated. There is an area of diminished density involving the basal ganglia/thalamus on the right. 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 The bone windows show no sign of a fracture or of a destructive lesion. The orbits are symmetrical and within normal limits. The sinuses where visualized are clear. IMPRESSION: 1. There is no evidence for acute intracranial abnormality on this suboptimal exam. 2. If clinical concern regarding an underlying abnormality persists, then MRI would be recommended for further study. CT cervical spine: This study is less than optimal due to the patient's body habitus. The reconstructed sagittal images show straightening of the cervical spine. This may be secondary to muscle spasm and/or positioning. There is a disc bulge eccentric to the right at C5-C6. This may produce mild spinal stenosis and does narrow the neuroforamen on the right at this level. The remainder of the cervical spine is unremarkable for high-grade central stenosis. There is no fracture or acute bony abnormality identified. There is no sign of retropharyngeal edema. The thyroid gland was not well visualized. The lung apices are clear. IMPRESSION: 1. There is no evidence for an acute bony abnormality. 2. These results were discussed with DARIUSZ Moody in the ER. Dictated by: Dictated on workstation # [id number]
[2018-07-31] MEDS ORDERED: NS IV 500 ML 500 ML IV SCH (17:00)
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
[2018-07-31 17:57] VITALS: BP 103/89
--- NOTE | 2018-07-31 18:01 | NUR ---
fluids completed at 1800
== END 2018-07-31 18:04 | disposition home or self-care (01) ==
LOC: EDUNIT# 13:11 → ER 13:17
DX: I95.9 Hypotension, unspecified (principal); M54.2 Cervicalgia; R51 Headache; R55 Syncope and collapse; J43.9 Emphysema, unspecified; I48.91 Unspecified atrial fibrillation; I25.10 Atherosclerotic heart disease of native coronary artery without angina pectoris; E78.00 Pure hypercholesterolemia, unspecified; E11.22 Type 2 diabetes mellitus with diabetic chronic kidney disease; I12.0 Hypertensive chronic kidney disease with stage 5 chronic kidney disease or end stage renal disease; N18.6 End stage renal disease; I73.9 Peripheral vascular disease, unspecified; G43.909 Migraine, unspecified, not intractable, without status migrainosus; E11.42 Type 2 diabetes mellitus with diabetic polyneuropathy; Z87.19 Personal history of other diseases of the digestive system; Z88.7 Allergy status to serum and vaccine; Z91.048 Other nonmedicinal substance allergy status; Z99.2 Dependence on renal dialysis; Z98.51 Tubal ligation status; Z79.82 Long term (current) use of aspirin; Z79.51 Long term (current) use of inhaled steroids; Z79.4 Long term (current) use of insulin; Z79.52 Long term (current) use of systemic steroids; Z77.22 Contact with and (suspected) exposure to environmental tobacco smoke (acute) (chronic); Z93.0 Tracheostomy status; Z90.710 Acquired absence of both cervix and uterus; Z89.512 Acquired absence of left leg below knee; W07.XXXA Fall from chair, initial encounter; W22.09XA Striking against other stationary object, initial encounter; Y92.009 Unspecified place in unspecified non-institutional (private) residence as the place of occurrence of the external cause
CPT/HCPCS: 36415; 36600; 70450; 71045; 72125; 80053; 82805; 85025; 93005; 94640

== ENCOUNTER 2018-07-31 21:52 | Emergency (ER) | payer MEDICARE, MEDICAID ==
[~2018-07-31] VITALS: Ht 157.5 cm; Wt 127.5 kg
--- NOTE | 2018-07-31 22:17 | NUR ---
PATIENT SITTING IN WHEELCHAIR IN WAITING ROOM. PATIENT ALTERED MENTAL STATUS AND WILL NOT ANSWER ANY QUESTIONS. PATIENT DOES NOT ASSIST IN ANY WAY TO MOVE FROM WHEELCHAIR TO COT. PATIENT LIFTED BY 4 STAFF FROM WHEELCHAIR AND PLACED ON COT. PATIENT PLACED ON NON-REBREATHER MASK AT 15 LPM DUE TO OXYGEN SATURATION OF 75% ON 6 LPM VIA NASAL CANNULA. AFTER PATIENT IS ON OXYGEN FOR SEVERAL MINUTES SHE BECOMES MORE ALERT AND IS ABLE TO RESPOND TO STAFF AND ANSWER QUESTIONS.
[2018-07-31 22:39] LABS: BASOPHILS # (AUTO) 0.1 10^3/uL (0.0-0.1); BASOPHILS % (AUTO) 0 % (0-10); EOSINOPHILS # (AUTO) 0.2 10^3/uL (0.0-0.3); EOSINOPHILS % (AUTO) 2 % (0-10); HEMATOCRIT 37 % (35-52); HEMOGLOBIN 10.8 G/DL (11.5-16.0); LYMPHOCYTES # (AUTO) 4.7 X 10^3 (1.0-4.0); LYMPHOCYTES % (AUTO) 33 % (12-44); MEAN CORPUSCULAR HEMOGLOBIN 32 PG (25-34); MEAN CORPUSCULAR HGB CONC 29 G/DL (32-36); MEAN CORPUSCULAR VOLUME 109 FL (80-99); MEAN PLATELET VOLUME 13.9 FL (7.4-10.4); MONOCYTES # (AUTO) 1.1 X 10^3 (0.0-1.0); MONOCYTES % (AUTO) 8 % (0-12); NEUTROPHILS # (AUTO) 8.2 X 10^3 (1.8-7.8); NEUTROPHILS % (AUTO) 58 % (42-75); PLATELET COUNT 177 10^3/uL (130-400); RED CELL DISTRIBUTION WIDTH 18.7 % (10.0-14.5); WHITE BLOOD COUNT 14.2 10^3/uL (4.3-11.0)
[2018-07-31 23:18] LABS: EOSINOPHILS % (MANUAL) 2 %; LYMPHOCYTES % (MANUAL) 32 %; MONOCYTES % (MANUAL) 5 %; NEUTROPHILS % (MANUAL) 61 %
[2018-07-31 23:19] LABS: ANISOCYTOSIS MODERATE; MICROCYTOSIS SLIGHT; POIKILOCYTOSIS SLIGHT
[2018-07-31] MEDS ORDERED: NS IV 1000 ML 1,000 ML ONE (23:30)
[2018-07-31 23:31] VITALS: BP 84/33
[2018-07-31 23:33] LABS: ALBUMIN 3.7 GM/DL (3.2-4.5); BILIRUBIN,TOTAL 0.5 MG/DL (0.1-1.0); CALCIUM 8.1 MG/DL (8.5-10.1); CREATININE SERUM 5.58 MG/DL (0.60-1.30); POTASSIUM 5.1 MMOL/L (3.6-5.0); TOTAL PROTEIN 6.9 GM/DL (6.4-8.2)
[2018-07-31] MEDS ORDERED: NS IV 1000 ML 1,000 ML IV ONE (23:33)
--- NOTE | 2018-07-31 23:47 | NUR ---
REPORT RECIEVED FROM BARTOLOME ZELAYA TO ASSUME CARE OF PT @ THIS TIME.
--- NOTE | 2018-07-31 23:53 | NUR ---
PATIENT REFUSES CT SCAN- STATES SHE IS CLAUSTROPHOBIC AND CANNOT STAND BEING THE CT MACHINE. DR. PENALOZA NOTIFIED.
[2018-08-01] MEDS ORDERED: ENOXAPARIN 60 MG/0.6 ML (LOVENOX) SYR SC ONE (01:30)
[2018-08-01 01:45] VITALS: BP 123/51
--- NOTE | 2018-08-01 07:03 | Diagnostic Imaging Report ---
INDICATION: Shortness of air COMPARISON: Imaging from the same day. TECHNIQUE: Single radiograph of the chest dated 07/31/2018 at 2235 FINDINGS: The cardiac silhouette is severely enlarged, though appearing similar to the prior examination. Pulmonary vasculature is predominantly obscured. Diffuse prominence of the pulmonary interstitium is again noted, though appearing improved since the prior examination. No definite new focal pulmonary opacity. No pneumothorax. No acute osseous abnormality. IMPRESSION: Persistent enlargement of the cardiac silhouette. Diffuse prominence of the pulmonary interstitium, likely related to interstitial edema, minimally improved since the prior exam. Dictated by: Dictated on workstation # [id number]
--- NOTE | 2018-09-07 18:41 | ED General ---
General Chief Complaint: Respiratory Problems Stated Complaint: PASSED OUT Nursing Triage Note: PATIENT PRESENTS TO ER VIA WHEELCHAIR WITH SPOUSE WITH COMPLAINT OF ALTERED LEVEL OF CONSCIOUSNESS AND RESPIRATORY DISTRESS. PATIENT WAS SEEN IN ER EARLIER TODAY WITH COMPLAINT OF RESPIRATORY DISTRESS AND HYPOTENSION. PATIENT WAS PLACED ON BYPAP AT THAT TIME AND THEN RELEASED. PATIENT'S SPOUSE STATES PATIENT WAS FINE EARLIER UPON DISCHARGE BUT UPON BEING OUT AND ABOUT FOR A WHILE SHE WENT UNRESPONSIVE ON HIM SO HE BROUGHT HER BACK TO THE ER. PATIENT'S OXYGEN SATURATION IS 75% ON HOME O2 AT 6 LPM. PATIENT PLACED ON NON-REBREATHER MASK AT 15 LPM AND OXYGEN SATURATION IS NOW 99%. Nursing Sepsis Screen: No Definite Risk Source of Information: Patient (LIMITED HISTORIAN), Old Records, Spouse History of Present Illness Date Seen by Provider: July 31, 2018 Time Seen by Provider: 22:20 Initial Comments PT ARRIVES VIA POV --IN WHEELCHAIR PT SEEN IN ER EARLIER FOR SIMILAR COMPLAINTS PT WITH ESRD ON DIALYSIS, HAD DIALYSIS TODAY AND HAD 4 LITERS OF FLUID REMOVED, DIALYSIS [id number] REPORTEDLY, PT'S BP WAS IN 70'S -80'S SYSTOLIC AND O2 SATS 85% PT WAS ON BIPAP AND SYMPTOMS IMPROVED, WAS GIVEN FLUIDS AND WAS BACK TO NORMAL BASELINE AND PT WANTED TO GO HOME, AND DECLINED TRANSFER TO A FACILITY WITH DIALYSIS CAPABILITIES VITALS WERE IN NORMAL RANGE AT DISMISSAL PT HAD REPORTEDLY PASSED OUT AND FALLEN OUT OF CHAIR EARLIER, AND HEAD CT WAS NORMAL ON EARLIER VISIT. NO NEW COMPLAINTS ON BEING DISMISSED FROM ER, TOOK HER TO HIS AUNT'S HOUSE AND HE LEFT TO PLAY CARDS. WHEN HE CAME BACK SHE SAID SHE "DIDN'T FEEL GOOD", SO HE BROUGHT HER BACK TO ER C/O FEELING LIGHTHEADED AND "DON'T FEEL RIGHT" PT CANNOT BE ANY MORE SPECIFIC ABOUT COMPLAINTS PT WITH MULTITUDE OF VISITS--15 IN 2019--AND WAS SEEN HERE 07/30/18 FOR SHORTNES S OF BREATH-MISSED DIALYSIS. VITALS WERE STABLE AND PT REFUSED TRANSFER AND WANTED TO GO HOME. PCP: RICARDO Allergies and Home Medications Allergies Coded Allergies: aloe vera (Verified Allergy, Severe, RASH, 11/05/13) flu vaccine [id number](4 yr+) (Verified Allergy, Mild, HIVES, 04/22/12) adhesive (Verified Allergy, Unknown, 05/01/07) Uncoded Allergies: TAPE (Allergy, Mild, 05/16/10) Home Medications Albuterol Sulfate 1 Puff Puff, 2 PUFF IH Q4H PRN for SHORTNESS OF BREATH 1 PUFF = 90 MCG Prescribed by: MIRTA BERRIOS on 09/01/18 1418 Amlodipine Besylate 10 Mg Tablet, 10 MG PO HS, (Reported) Aspirin 81 Mg Tablet.dr, 81 MG PO DAILY, (Reported) Fluticasone Propionate 16 Gm [place].susp, 1 SPRAY NA DAILY PRN for ALLERGIES, (Reported) Furosemide 40 Mg Tablet, 40 MG PO DAILY, (Reported) Gabapentin 300 Mg Capsule, 300 MG PO TID, (Reported) Hydrocodone/Acetaminophen 1 Each Tablet, 1 TAB PO Q6H PRN for PAIN-MODERATE, (Reported) Hydroxyzine HCl 25 Mg Tablet, 25 MG PO TID PRN for an, (Reported) Insulin Glargine,Hum.rec.anlog 100 Unit/1 Ml Insuln.pen, 30 UNITS SQ HS, (Reported) Insulin Lispro 100 Unit/1 Ml Insuln.pen, SQ HS, (Reported) 100-200 = 12-16 UNITS ABOVE 300 = 20 UNITS ABOVE 400 = CALL Isosorbide Mononitrate 30 Mg Tab.er.24h, 30 MG PO HS, (Reported) Levofloxacin 500 Mg Tablet, 500 MG PO Q48H every other day x3 doses. Next dose 08/19/18 Prescribed by: CRYSTAL MATTA on 08/17/182044 Loratadine 10 Mg Tablet, 10 MG PO HS, (Reported) Metoprolol Tartrate 100 Mg Tablet, 100 MG PO BID, (Reported) Montelukast Sodium 10 Mg Tablet, 10 MG PO HS, (Reported) Naproxen 375 Mg Tablet, 375 MG PO BID PRN for PAIN-MILD, (Reported) Ondansetron 8 Mg Tab.rapdis, 8 MG PO Q8H PRN for NAUSEA/VOMITING-1ST LINE, (Reported) Ondansetron 4 Mg Tab.rapdis, 4 MG SL Q4H PRN for NAUSEA/VOMITING Prescribed by: MIRTA BERRIOS on 06/05/18 0652 Prednisone 10 Mg Tab.ds.pk, 10 MG PO DAILY Take 6 tabs(60mg)daily,decrease by 1 tab(10MG)daily. Prescribed by: PATRICK BENTLEY on 07/30/18 1809 Rosuvastatin Calcium 20 Mg Tablet, 20 MG PO HS, (Reported) Sevelamer Carbonate 800 Mg Tablet, 3,200 MG PO BID WITH MEALS, (Reported) TAKES 4 (800MG) TABLETS WITH BREAKFAST AND SUPPER AND TAKES 2 (800MG) TABLETS WITH SNACK Sevelamer Carbonate 800 Mg Tablet, 1,600 MG PO DAILY WITH SNACK, (Reported) TAKES 2 (800MG) TABLETS Vit B Cmplx 3/FA/Vit C/Biotin 1 Each Tablet, 1 TAB PO DAILY, (Reported) Vitamin E (Dl,Tocopheryl Acet) 100 Unit Capsule, 100 UNIT PO DAILY Prescribed by: PATRICK BENTLEY on 08/20/18 0636 Patient Home Medication List Home Medication List Reviewed: Yes Review of Systems Review of Systems Constitutional: dizziness; No fever; malaise, weakness Respiratory: short of breath (CHRONIC PROBLEM) Cardiovascular: No chest pain; edema (CHRONIC /STABLE) Gastrointestinal: no symptoms reported; No abdominal pain, No diarrhea, No nausea, No vomiting Genitourinary: see HPI (DOES NOT MAKE URINE) Musculoskeletal: no symptoms reported Skin: no symptoms reported Psychiatric/Neurological: Denies Headache, Denies Numbness, Denies Paresthesia, Denies Seizure, Denies Tingling, Denies Other Hematologic/Lymphatic: No Symptoms Reported Immunological/Allergic: no symptoms reported Past Pbokxww-Jhafqa-Guoggr Hx Patient Social History Alcohol Use: Denies Use Recreational Drug Use: No Smoking Status: Never a Smoker 2nd Hand Smoke Exposure: Yes Recent Foreign Travel: No Contact w/Someone Who Travel: No Recent Infectious Disease Expo: No Recent Hopitalizations: No Immunizations Up To Date Tetanus Booster (TDap): Less than 5yrs PED Vaccines UTD: No Date of Pneumonia Vaccine: Sep 02, 2013 Seasonal Allergies Seasonal Allergies: Yes Past Medical History Surgeries: Yes (DIALYSIS AV FISTULA/GRAFT LEFT UPPER ARM, LEFT BKA) Amputation, Arteriovenous Shunt, Cardiac, Section, Dialysis, Hysterectomy, Orthopedic, Tracheostomy, Vascular Surgery Respiratory: Yes Asthma, COPD, Emphysema Currently Using CPAP: No Currently Using BIPAP: No Cardiac: Yes (CHF) Atrial Fibrillation, Chronic Edema/Swelling, Coronary Artery Disease, High Cholesterol, Hypertension, Peripheral Vascular Neurological: Yes Headaches /Migraines, Neuropathy 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 Sexually Transmitted Disease: No HIV/AIDS: No Genitourinary: Yes (DOES NOT MAKE URINE) Renal Failure, Dialysis Gastrointestinal: Yes Chronic Constipation Musculoskeletal: Yes Arthritis, Chronic Back Pain, Fractures Endocrine: Yes Diabetes, Insulin dep HEENT: No Loss of Vision: Denies Hearing Impairment: Denies, Hard of Hearing Cancer: No Psychosocial: No Integumentary: Yes (DIABETIC ULCERS; CELLULITIS AND DRAINAGE FROM STUMP LEFT BKA) Blood Disorders: No Adverse Reaction/Blood Tranf: No Family Medical History Diabetes mellitus Family history: Asthma 09 BROTHER No Family History of: AIDS Abdominal aortic aneurysm Saad's disease Alcoholism Alzheimer's disease Aphasia Arthritis Asthma Cancer of mouth Cardiovascular disease Cataracts Colon cancer Completed stroke Congenital disease Congenital heart disease Coronary thrombosis Cystic fibrosis Deafness or hearing loss Dementia Drug abuse Dysphasia Fibrocystic disease of breast Gastroenteritis Glaucoma Headache disorder Hypercholesterolemia Hypertension Infertility Kidney disease Myocardial infarction Neoplasm Not obtainable due to adoption Osteoporosis Parkinson's disease Prostate cancer Psychosocial problem Respiratory disorder Seizure disorder Severe allergy Thyroid disease Tuberculosis Visual disorder Physical Exam Vital Signs Capillary Refill : Less Than 3 Seconds Height, Weight, BMI Height: 5'2.00" Weight: 281lbs. 0oz. 127.160194oz; 53.4 BMI Method:Stated General Appearance: Obese (MORBIDLY), Other (FILTHY, MALODOROUS, VERY UNKEMPT, LETHARGIC, MOANING) HEENT: PERRL/EOMI, Other (FILTHY, MALODOROUS, VERY UNKEMPT, LETHARGIC, MOANING) Neck: Normal Inspection; No JVD Respiratory: No Accessory Muscle Use, No Respiratory Distress, Decreased Breath Sounds (IN BASES) Cardiovascular: Regular Rate, Rhythm, No Murmur Gastrointestinal: Non Tender, Soft Extremity: Pedal Edema (1+ LEFT LEG), Other (LEG BKA) Neurologic/Psychiatric: Alert (BUT LETHARGIC), Oriented x3, No Motor/Sensory Deficits, manager alliance II-XII Norm as Tested Skin: Normal Color, Warm/Dry, Other (MULJTIPLE SORES/SCARS/SCABS TO FACE, ARMS, LEGS) Progress/Results/Core Measures Suspected Sepsis Recent Fever Within 48 Hours: No Infection Criteria Present: None New/Unexplained Altered Menta: Yes Sepsis Screen: No Definite Risk SIRS Temperature:97.8 Pulse: 56 Respiratory Rate: 16 Blood Pressure 123 /51 Mean: 75 Results/Orders Vital Signs/I&O Capillary Refill : Less Than 3 Seconds Blood Pressure Mean: 75 Point of Care Testing Finger Stick Blood Glucose: 360 Progress Note : Progress Note PT HYPOTENSIVE-BP STABLE AT TIME OF TRANSFER ECG Initial ECG Impression Date: July 31, 2018 Initial ECG Impression Time: 22:27 Initial ECG Rate: 54 Initial ECG Rhythm: Normal Sinus Initial ECG Impression: Nonspecific Changes Initial ECG Comparisson: Unchanged Diagnostic Imaging Comments CXR--FLUID OVERLOAD, CARDIOMEGALY, PENDING RADIOLOGIST REVIEW Reviewed: Reviewed by Me Departure Communication (Admissions) [id number]--CALLED [facility] BALDERAS, WILL CALL BACK [phone]--CALLED RE[facility], STILL ATTEMPTING TO CONTACT HOSPITALIST [phone]--RENALDO CALLED, HOSPITALIST DEFERS TO ER 0051--SPOKE WITH DR. MEZA, ER. ACCEPTS PT FOR TRANSFER. Impression Primary Impression: HYPOTENSION AFTER DIALYSIS Additional Impressions: Fluid overload ESRD on dialysis Hypotension Uncontrolled diabetes mellitus Electrolyte imbalance S/P SYNCOPAL EPISODE WITH HEAD CONTUSION Elevated troponin Disposition: 02 XFER SHT-TRM HOSP Condition: Improved Transfer Transfer Facility: [facility] Method of Transfer: EMS Departure-Patient Inst. Referrals: [facility] (PCP) Primary Care Physician LORI PENALOZA DO Sep 07, 2018 18:41
== END 2018-08-01 01:45 | disposition short-term general hospital (02) ==
LOC: EDUNIT# 21:52 → ER 21:53
DX: S00.83XA Contusion of other part of head, initial encounter (principal); I95.9 Hypotension, unspecified; E87.79 Other fluid overload; R55 Syncope and collapse; E87.8 Other disorders of electrolyte and fluid balance, not elsewhere classified; R79.89 Other specified abnormal findings of blood chemistry; J43.9 Emphysema, unspecified; E11.22 Type 2 diabetes mellitus with diabetic chronic kidney disease; I13.2 Hypertensive heart and chronic kidney disease with heart failure and with stage 5 chronic kidney disease, or end stage renal disease; N18.6 End stage renal disease; I50.9 Heart failure, unspecified; I48.91 Unspecified atrial fibrillation; I25.10 Atherosclerotic heart disease of native coronary artery without angina pectoris; E78.00 Pure hypercholesterolemia, unspecified; E11.51 Type 2 diabetes mellitus with diabetic peripheral angiopathy without gangrene; E11.40 Type 2 diabetes mellitus with diabetic neuropathy, unspecified; G43.909 Migraine, unspecified, not intractable, without status migrainosus; I73.9 Peripheral vascular disease, unspecified; Z99.2 Dependence on renal dialysis; Z88.7 Allergy status to serum and vaccine; Z79.82 Long term (current) use of aspirin; Z79.51 Long term (current) use of inhaled steroids; Z98.51 Tubal ligation status; Z79.4 Long term (current) use of insulin; Z79.52 Long term (current) use of systemic steroids; Z77.22 Contact with and (suspected) exposure to environmental tobacco smoke (acute) (chronic); Z90.710 Acquired absence of both cervix and uterus; Z93.0 Tracheostomy status; Z96.652 Presence of left artificial knee joint; W05.0XXA Fall from non-moving wheelchair, initial encounter
CPT/HCPCS: 36415; 71045; 80053; 82962; 84484; 85007; 85027; 93005; 93041; 96360; 96372

== ENCOUNTER 2018-08-17 19:38 | Emergency (ER) | payer MEDICARE, MEDICAID ==
[~2018-08-17] VITALS: Ht 157.5 cm; Wt 127.5 kg
--- OUTSIDE RECORDS SUMMARY | 2018-08-17 19:48 | XMS REPORT | Clinical Summary ---
Author Author [facility] Organization [facility] Address Unknown Phone Unavailable Care Team Providers Care Brand Executive Name Role Phone Mario Carver MD PCP Unavailable Source Comments Some departments are not documenting in the electronic medical record. If you d o not see the information that you expected, contact Release of Information in [facility] Information Management department at [phone] for further assistan ce in locating additional records.[facility] Allergies Not on File Medications [...] Medicare MEDICARE MEDICARE xxxxxxxxxx 2014- TRANSPLANT Present ([place]) [place] [address] Advance Directives Patient has advance care planning documents on file. For more information, neeraj ledbetter contact: [address] [address]
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
--- OUTSIDE RECORDS SUMMARY | 2018-08-17 19:49 | XMS REPORT ---
Author Author MCKENNA HEBERT Organization [facility] Address [address] [place] [address] Care Team Providers Care Waste Management Specialist Name Role Phone MCKENNA HEBERT Unavailable PROBLEMS Type Condition ICD9-CM Code DBY30-ID Code Onset Dates Condition Status SNOMED Code Problem Cellulitis of right lower extremity L03.115 Active 319037983 Problem Neuropathy G62.9 Active 200422069 Problem Renal failure N19 Active 32302984 Problem Intra-dialytic hypotension I95.3 Active 555164035 Problem Amput below knee, unilat S88.119A Active 78287384 Problem Seasonal allergic rhinitis due to other allergic trigger J30.89 Active 758138373 Problem Chronic congestive heart failure, unspecified congestive heart failure type I50.9 Active 80742667 Problem Other chronic pain G89.29 Active 15861977 Problem 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 Active 2967677 Problem Primary insomnia F51.01 Active 6985428 Problem Paroxysmal atrial fibrillation I48.0 Active 756274997 Problem Angina pectoris I20.9 Active 949378248 Problem Type 2 diabetes mellitus with hyperglycemia, unspecified whether mcfp insulin use E11.65 Active 916354884309871 Problem Chronic congestive heart failure, unspecified heart failure type I50.9 Active 95718585 Problem Self-care deficit for toileting R46.0 Active 160544752 Problem Bronchitis J40 Active 42537160 Problem Observed sleep apnea G47.30 Active 34813666 Problem Unsteady gait R26.81 Active 505590515 ALLERGIES No Information ENCOUNTERS Encounter Location Date Diagnosis [facility] [id number] [address] July, [facility] [address], [place] [address] Jun, [facility] [address], [place] [address] May, [facility] [id number] [place] [address] May, Diabetes type 2, controlled E11.9 [facility] [id number] [place] [address] May, [facility] [id number] [place] [address] May, Pressure injury of coccygeal region, stage 2 L89.152 ; Nausea R11.0 ; Chronic congestive heart failure, unspecified congestive heart failure type I50.9 ; Observed sleep apnea G47.30 and Morbid obesity E66.01 [facility] [id number] [place] [id number] May, [facility] [id number] [place] [address] May, [facility] [address] [address] May, [facility] [id number] [place] [address] May, [facility] [id number] [place] [address] May, [facility] [id number] [place] [address] 18 May, 2018 Renal failure N19 [facility] [id number] [place] [address] 14 May, 2018 [facility] [id number] [place] [address] 13 May, 2018 Neuropathy G62.9 and Renal failure N19 [facility] [id number] [place] [address] 08 May, 2018 [facility] [address] [address] 07 May, 2018 [facility] [id number] [place] [address] 04 May, 2018 [facility] [id number] [place] [address] Apr, [facility] [id number] [place] [address] 14 Apr, 2018 [facility] [address] [address] Apr, [facility] [id number] [place] [address] Mar, Diabetes type 2, controlled E11.9 [facility] [id number] [place] [address] Mar, Paroxysmal atrial fibrillation I48.0 ; Observed sleep apnea G47.30 ; Unsteady gait R26.81 and Bilious vomiting with nausea R11.14 [facility] [id number] [place] [address] Mar, [facility] [id number] [place] [address] Mar, [facility] [id number] [place] [address] Mar, [facility] [id number] [place] [address] Mar, [facility] [id number] [place] [address] Mar, Diabetes type 2, controlled E11.9 ; BMI 50.0-59.9, adult Z68.43 ; Bronchitis J40 and Other chronic pain G89.29 [facility] [id number] [place] [address] Mar, [facility] [id number] [place] [address] 05 Mar, 2018 [facility] [address], [place] [address] Jan, [facility] [id number] [place] [address] Jan, [facility] [id number] [place] [address] Dec, [facility] [id number] [place] [address] Dec, [facility] [id number] [place] [address] Dec, [facility] [id number] [place] [address] Nov, Pneumonia due to infectious organism, unspecified laterality, unspecified part of lung J18.9 and Self-care deficit for toileting R46.0 [facility] [id number] [place] [address] Nov, [facility] [id number] [place] [address] Oct, Diabetes type 2, controlled E11.9 ; Primary insomnia F51.01 and Bilateral headaches R51 [facility] [address], [place] [address] Oct, [facility] [id number] [place] [address] Sep, [facility] [address] [place] [id number] Sep, Dental examination Z01.20 and Dental caries K02.9 [facility] [id number] [place] [address] Sep, [facility] [id number] [place] [address] Sep, [facility] [id number] [place] [address] 12 Sep, 2017 Other chronic pain G89.29 and Pain in right knee M25.561 [facility] [address], [place] [address] 05 Sep, 2017 [facility] [address] [facility] [id number], [place] [address] Aug, [facility] [address] [place] [address] Aug, 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 [facility] [address] [facility] [id number] [address] 15 Aug, 2017 [facility] [id number] [place] [address] 11 Aug, 2017 Diabetes type 2, controlled E11.9 and Acute pain of right knee M25.561 [facility] [id number] [place] [address] 09 Aug, 2017 [facility] [id number] [address] July, [facility] [address] [place] [address] 16 Jun, 2017 [facility] [address] [address] 13 Jun, 2017 [facility] [address], [place] [address] 10 Jun, 2017 Diabetes type 2, controlled E11.9 [facility] [id number] [address] 09 Jun, 2017 [facility] [address], [place] [address] 28 May, 2017 [facility] [address] [facility] [id number], [place] [address] May, [facility] [address], [place] [address] May, [facility] [address] [place] [address] May, Chronic congestive heart failure, unspecified congestive heart failure type I50.9 [facility] [id number] [place] [address] May, Diabetes type 2, controlled E11.9 ; BMI 50.0-59.9, adult Z68.43 ; Chronic congestive heart failure, unspecified heart failure type I50.9 ; Angina pectoris I20.9 ; Seasonal allergic rhinitis due to other allergic trigger J30.89 and Renal failure N19 [facility] [id number] [place] [id number] May, [facility] [id number] [place] [address] May, [facility] [id number] [place] [address] May, [facility] [id number] [place] [address] May, [facility] [id number] [place] [address] May, [facility] [id number] [place] [address] Apr, BMI 50.0-59.9, adult Z68.43 [facility] [id number] [place] [address] Apr, BMI 50.0-59.9, adult Z68.43 ; Post-procedural fever R50.82 and Bronchitis J40 [facility] [id number] [place] [address] Apr, Chronic congestive heart failure, unspecified congestive heart failure type I50.9 [facility] [id number] [place] [address] Jan, [address] [facility] [id number], [place] [address] Jan, Diabetes type 2, controlled E11.9 [facility] [address] [facility] [id number] [place] [address] Jan, Neuropathy G62.9 [facility] [address] [facility] [id number] [place] [address] Jan, [facility] [address] [facility] [id number] [place] [address] Jan, [facility] [address] [facility] [id number] [place] [address] Jan, [facility] [id number], [place] [address] Jan, [facility] [address], [place] [address] Jan, [facility] [id number], [place] [address] Dec, [facility] [address], [place] [address] Dec, [facility] [address], [place] [address] Dec, Diabetes type 2, controlled E11.9 [facility] [address], [place] [address] Dec, [facility] [address] [facility] [id number], [place] [address] Dec, [facility] [address], [place] [address] Dec, Chronic congestive heart failure, unspecified congestive heart failure type I50.9 [facility] [id number], [place] [address] Dec, [facility] [address], [place] [address] Dec, [facility] [address] [facility] [id number][place] [address] Nov, Chronic congestive heart failure, unspecified congestive heart failure type I50.9 [facility] [address] [facility] [id number], [place] [address] Nov, Chronic congestive heart failure, unspecified congestive heart failure type I50.9 [facility] [address] [facility] [id number], [place] [address] Nov, [facility] [address] [facility] [id number][place] [address] Oct, [facility] [address] [facility] [id number], [place] [address] Oct, [facility] [id number], [place] [address] Oct, Chronic congestive heart failure, unspecified congestive heart failure type I50.9 [facility] [address] [facility] [id number], [place] [address] Oct, [facility] [id number] [address] Oct, Pneumonia of both lungs due to infectious organism, unspecified part of lung J18.9 [facility] [id number] [address] Oct, [facility] [id number] [address] Oct, Diabetes type 2, controlled E11.9 [facility] [address] [facility] [id number], [place] [address] Oct, Diabetes type 2, controlled E11.9 [facility] [address] [facility] [id number], [place] [address] Sep, [facility] [id number], [place] [address] Sep, Neuropathy G62.9 [facility] [address], [place] [address] Aug, Intra-dialytic hypotension I95.3 [facility] [id number] [place] [address] July, [facility] [id number] [place] [address] July, [facility] [id number] [place] [address] July, [facility] [id number] [place] [address] July, Amput below knee, unilat S88.119A [facility] [id number] [place] [address] May, [facility] [id number] [place] [address] May, Neuropathy G62.9 [facility] [id number], [place] [address] May, [facility] [id number] [place] [address] May, [facility] [address], [place] [address] May, [facility] [id number], [place] [address] May, [facility] [address], [place] [address] May, Neuropathy G62.9 [facility] [address], [place] [address] Apr, [facility] [address], [place] [address] Apr, [facility] [address] [facility] [id number] [place] [address] Apr, Diabetes type 2, controlled E11.9 and Renal failure N19 [facility] [address] [facility] [id number] [place] [address] Apr, [facility] [id number] [place] [address], [place] [address] Apr, [facility] [id number] [place] [address], [place] [address] Mar, [facility] [id number] [place] [address], [place] [address] Mar, [facility] [id number] [place] [address], [place] [address] Mar, [facility] [id number] [place] [address], [place] [address] Mar, [facility] [address] [place] [address], [place] [address] Mar, [facility] [address] [place] [address], [place] [address] Jan, Localized edema R60.0 [facility] [address] [place] [address] Jan, [facility] [address] [place] [address] Jan, [facility] [address] [place] [address] Jan, [facility] [address] [place] [address] Jan, [facility] [address] [place] [address] Jan, [facility] [address] [place] [address] Jan, [facility] [id number] [place] [address] Dec, Diabetes type 2, controlled E11.9 and Chronic nonintractable headache, unspecified headache type R51 [facility] [id number] [place] [address] Dec, [facility] [id number] [place] [address] Dec, [facility] [id number] [place] [address] Nov, [facility] [id number] [place] [address] Nov, [facility] [id number] [place] [address] Oct, [facility] [id number] [place] [address] Oct, Migraine without status migrainosus, not intractable, unspecified migraine type G43.909 [facility] [id number] [place] [address] Oct, [facility] [id number] [place] [address] Sep, Amput below knee, unilat S88.119A and Neuropathy G62.9 [facility] [id number] [place] [address] Sep, [facility] [id number] [place] [address] Sep, [facility] [id number] [place] [address] Sep, [facility] [id number] [place] [address] Aug, [facility] [id number] [place] [address] Aug, [facility] [address] [id number] [place] [address] Aug, Diabetes type 2, controlled E11.9 [facility] [address] [facility] [id number] [place] [address] Aug, [facility] [address] [facility] [id number] [place] [address] Jun, Diabetes type 2, controlled E11.9 and Neuropathy G62.9 [facility] [address] [id number] [place] [address] Jun, [facility] [address] [id number] [place] [address] Jun, [facility] [address] [facility] [id number] [place] [address] Jun, [facility] [address] [facility] [id number] [place] [address] Jun, [facility] [address] [facility] [id number] [place] [address] May, [facility] [address] [facility] [id number] [place] [address] May, Diabetes type 2, controlled E11.9 [facility] [address] [facility] [id number] [place] [address] May, [facility] [address] [facility] [id number], [place] [address] May, [facility] [address] [facility] [id number] [place] [address] May, [facility] [address] [facility] [id number] [place] [address] May, [facility] [address] [facility] [id number][place] [address] May, [facility] [address] [facility] [id number][place] [address] May, [facility] [address], [place] [address] May, [facility] [address], [place] [address] May, COPD (chronic obstructive pulmonary disease) J44.9 [facility] [address] [place] [address] May, [facility] [address] [place] [address] May, [facility] [id number] [place] [address] May, [facility] [address] [place] [address] May, [facility] [address] [place] [address] May, [facility] [address], [place] [address] May, Renal failure N19 and Pneumonia, organism unspecified, unspecified laterality, unspecified part of lung J18.9 [facility] [address], [place] [address] Apr, [facility] [address], [place] [address] Apr, [facility] [address], [place] [address] Apr, [facility] [address], [place] [address] Apr, Diabetes mellitus 250.00 [facility] [address] [address] 14 Apr, 2015 [facility] [address], [place] [address] 14 Apr, 2015 [facility] [place] [facility] [address] [facility] [id number] [place] [address] 13 Apr, 2015 [facility] [place] [facility] [address] [facility] [id number] [place] [address] 07 Apr, 2015 [facility] [place] [facility] [address] [facility] [id number] [place] [address] 31 Mar, 2015 [facility] [place] [facility] [address] [facility] [id number] [place] [address], [place] [address] 28 Mar, 2015 [facility] [place] [facility] [address] [facility] [id number] [place] [address], [place] [address] 23 Mar, 2015 [facility] [place] [facility] [address] [facility] [id number] [place] [address], [place] [address] 16 Mar, 2015 Renal failure N19 [facility] [place] [facility] [id number] [place] [address], [place] [address] 14 Mar, 2015 [facility] [place] [facility] [address] [facility] [id number] [place] [address] Mar, [facility] [place] [facility] [address] [place] [id number] [place] [address], [place] [address] 04 Mar, 2015 [facility] [place] [facility] [address] [id number] [place] [address] 24 Jan, 2015 [facility] [place] [facility] [address] [facility] [id number] [place] [address] 18 Jan, 2015 [facility] [place] [facility] [address] [facility] [id number] [address] 17 Jan, 2015 [facility] [place] [facility] [address] [facility] [id number] [place] [address] 13 Jan, 2015 [facility] [place] [facility] [address] [facility] [id number] [place] [address] 20 Dec, 2014 [facility] [place] [facility] [address] [id number] [place] [address] 19 Dec, 2014 [facility] [place] [facility] [address] [facility] [id number] [place] [address] Dec, [facility] [address] [facility] [id number] [place] [address] Nov, [facility] [address] [facility] [id number] [place] [address] Nov, [facility] [id number] [place] [address] Nov, [facility] [address] [facility] [id number] [place] [address] Oct, [facility] [id number] [place] [address] Oct, [facility] [facility] [id number] [place] [address] Oct, Renal failure 586 and Obesity 278.00 [facility] [id number] [address] Oct, [facility] [id number] [place] [address] Oct, [facility] [id number] [address] Oct, [facility] [id number] [address] Sep, [facility] [id number] [address] Sep, [facility] [id number] [address] Sep, Diabetes mellitus 250.00 and Congestive heart failure, unspecified 428.0 [facility] [id number] [address] Aug, [facility] [id number] [address] Aug, [facility] [place] [facility] [address] [id number] [place] [address] Aug, [facility] [address] [id number] [place] [address] July, [facility] [address] [id number] [place] [address] July, [facility] [address] [id number] [place] [address] July, Heart murmur, systolic 785.2 [facility] [address] [id number] [place] [address] July, [facility] [address] [id number] [place] [address] July, [facility] [address] [id number] [place] [address] Jun, [facility] [address] [id number] [place] [address] Jun, [facility] [address] [id number] [place] [address] May, [facility] [address] [id number] [place] [address] May, [facility] [address] [id number] [place] [address] 18 May, 2014 [facility] [place] [facility] [address] [id number] [place] [address] 18 May, 2014 [facility] [place] [facility] [address] [id number] [place] [address] 16 May, 2014 [facility] [place] [facility] [address] [id number] [place] [address] 16 May, 2014 [facility] [place] [facility] [address] [id number] [place] [address] 10 May, 2014 [facility] [place] [facility] [address] [id number] [place] [address] May, 2014 [facility] [place] [facility] [address] [id number] [place] [address] May, 2014 [facility] [place] [facility] [address] [facility] [id number] [place] [address] May, 2014 [facility] [place] [facility] [address] [facility] [id number] [place] [address] May, 2014 [facility] [place] [facility] [address] [id number] [place] [address] May, 2014 [facility] [place] [facility] [address] [facility] [id number] [place] [address] May, 2014 [facility] [place] [facility] [address] [facility] [id number] [place] [address] May, 2014 [facility] [place] [facility] [address] [facility] [id number] [place] [address] 18 May, 2014 [facility] [place] [facility] [address] [facility] [id number] [place] [address] May, 2014 [facility] [place] [facility] [address] [facility] [id number] [place] [address] May, 2014 [facility] [place] [facility] [address] [facility] [id number] [place] [address] 18 May, 2014 [facility] [place] [facility] [address] [facility] [id number], [place] [address] May, 2014 [facility] [place] [facility] [address] [facility] [id number] [place] [address] 18 May, 2014 [facility] [place] [facility] [address] [facility] [id number] [place] [address] 16 May, 2014 [facility] [place] [facility] [address] [facility] [id number], [place] [address] 16 May, 2014 [facility] [place] [facility] [address] [facility] [id number], [place] [address] May, [facility] [place] [facility] [address] [id number] [place] [address] May, [facility] [place] [facility] [address] [id number] [place] [address] May, [facility] [place] [facility] [address] [id number] [place] [address] May, [facility] [place] [facility] [address] [id number] [place] [address] Apr, [facility] [place] [facility] [address] [id number] [place] [address] Apr, [facility] [place] [facility] [address] [id number] [place] [address] Apr, [facility] [place] [facility] [address] [id number] [place] [address] Apr, [facility] [place] [facility] [address] [id number] [place] [address] Apr, [facility] [place] [facility] [address] [id number] [place] [address] Apr, [facility] [place] [facility] [address] [facility] [id number] [place] [address] Apr, [facility] [place] [facility] [address] [id number] [place] [address] Apr, [facility] [place] [facility] [address] [id number] [place] [address] Mar, [facility] [place] [facility] [address] [id number] [place] [address] Mar, [facility] [place] [facility] [address] [id number] [place] [address] Mar, [facility] [place] [facility] [address] [id number] [place] [address] Mar, [facility] [place] [facility] [address] [id number] [place] [address] Mar, [facility] [place] [facility] [address] [id number] [place] [address] Mar, [facility] [place] [facility] [address] [id number] [place] [address] Mar, [facility] [place] [facility] [address] [id number] [place] [address] Mar, [facility] [place] [facility] [address] [id number] [place] [address] Mar, [facility] [place] [facility] [address] [id number] [place] [address] Mar, [facility] [place] [facility] [address] [id number] [place] [address] Mar, [facility] [place] [facility] [address] [id number] [place] [address] Mar, [facility] [place] [facility] [address] [id number] [place] [address] Mar, [facility] [place] [facility] [address] [id number] [place] [address] Mar, [facility] [place] [facility] [address] [id number] [place] [address] Mar, [facility] [place] [facility] [address] [id number] [place] [address] Mar, [facility] [place] [facility] [address] [id number] [place] [address] Mar, [facility] [place] [facility] [address] [id number] [place] [address] Mar, [facility] [place] [facility] [address] [id number] [place] [address] Mar, [facility] [place] [facility] [address] [id number] [place] [address] Mar, [facility] [place] [facility] [address] [id number] [place] [address] Mar, [facility] [place] [facility] [address] [id number] [place] [address] Mar, [facility] [place] [facility] [address] [id number] [place] [address] Jan, [facility] [place] [facility] [address] [id number] [place] [address] Jan, [facility] [place] [facility] [address] [id number] [place] [address] Jan, [facility] [place] [facility] [address] [id number] [place] [address] Jan, [facility] [place] [facility] [address] [id number] [place] [address] Jan, [facility] [place] [facility] [address] [id number], [place] [address] Jan, [facility] [place] [facility] [address] [id number] [place] [address] Jan, [facility] [place] [facility] [address] [id number] [place] [address] Jan, [facility] [place] [facility] [address] [id number], [place] [address] Jan, [facility] [place] [facility] [address] [id number], [place] [address] Jan, [facility] [place] [facility] [address] [id number] [place] [address] Jan, [facility] [place] [facility] [address] [id number], [place] [address] Jan, [facility] [place] [facility] [address] [id number], [place] [address] Jan, [facility] [place] [facility] [address] [id number] [place] [address] 10 Jan, 2014 [facility] [place] [facility] [address] [id number] [place] [address] Jan, [facility] [place] [facility] [address] [id number] [place] [address] Jan, [facility] [place] [facility] [address] [id number] [place] [address] Jan, [facility] [place] [facility] [address] [id number] [place] [address] Jan, [facility] [place] [facility] [address] [id number] [place] [address] Jan, [facility] [place] [facility] [address] [id number] [place] [address] Jan, [facility] [place] [facility] [address] [id number] [place] [address] Dec, [facility] [place] [facility] [address] [id number] [place] [address] Dec, [facility] [place] [facility] [address] [id number] [place] [address] Dec, [facility] [place] [facility] [address] [id number] [place] [address] Dec, [facility] [place] [facility] [address] [id number] [place] [address] Dec, [facility] [place] [facility] [address] [id number] [place] [address] Dec, [facility] [place] [facility] [address] [id number] [place] [address] 14 Dec, 2013 [facility] [place] [facility] [address] [id number] [place] [address] Dec, [facility] [place] [facility] [address] [id number] [place] [address] 10 Dec, 2013 [facility] [place] [facility] [address] [id number] [place] [address] 08 Dec, 2013 [facility] [place] [facility] [address] [id number] [place] [address] Dec, [facility] [place] [facility] [address] [id number] [place] [address] Dec, [facility] [place] [facility] [address] [id number] [place] [address] Dec, [facility] [place] [facility] [address] [id number] [place] [address] Dec, [facility] [place] [facility] [address] [id number] [place] [address] Dec, [facility] [place] [facility] [address] [id number] [place] [address] 22 Nov, 2013 [facility] [place] [facility] [address] [id number] [place] [address] 22 Nov, 2013 [facility] [place] [facility] [address] [id number] [place] [address] 19 Nov, 2013 [facility] [place] [facility] [address] [id number] [place] [address] 19 Nov, 2013 [facility] [place] [facility] [address] [id number] [place] [address] 13 Nov, 2013 [facility] [place] [facility] [address] [id number], [place] [address] 13 Nov, 2013 [facility] [place] [facility] [address] [id number] [place] [address] 10 Nov, 2013 [facility] [place] [facility] [address] [id number] [place] [address] 10 Nov, 2013 [facility] [place] [facility] [address] [id number] [place] [address] 08 Nov, 2013 [facility] [place] [facility] [address] [id number], [place] [address] Nov, [facility] [place] [facility] [address] [id number] [place] [address] Nov, [facility] [place] [facility] [address] [id number] [place] [address] Nov, [facility] [place] [facility] [address] [id number] [place] [address] Nov, [facility] [place] [facility] [address] [id number] [place] [address] Oct, [facility] [place] [facility] [address] [id number] [place] [address] Oct, [facility] [place] [facility] [address] [id number] [place] [address] Oct, [facility] [place] [facility] [address] [id number] [place] [address] Oct, [facility] [place] [facility] [address] [id number] [place] [address] Oct, [facility] [place] [facility] [address] [id number] [place] [address] Sep, [facility] [place] [facility] [address] [id number] [place] [address] Sep, [facility] [place] [facility] [address] [id number] [place] [address] Sep, [facility] [place] [facility] [address] [id number] [place] [address] Sep, [facility] [place] [facility] [address] [id number] [place] [address] Aug, [facility] [place] [facility] [address] [id number] [place] [address] Aug, [facility] [place] [facility] [address] [id number] [place] [address] Aug, [facility] [place] [facility] [address] [id number] [place] [address] Aug, [facility] [place] [facility] [address] [id number] [place] [address] Aug, [facility] [place] [facility] [address] [id number] [place] [address] Aug, [facility] [place] [facility] [address] [id number] [place] [address] Aug, [facility] [place] [facility] [address] [id number] [place] [address] Aug, [facility] [place] [facility] [address] [id number] [place] [address] Aug, [facility] [place] [facility] [address] [id number] [place] [address] Aug, [facility] [place] [facility] [address] [id number] [place] [address] Aug, [facility] [place] [facility] [address] [id number] [place] [address] Aug, [facility] [place] [facility] [address] [id number] [place] [address] Aug, [facility] [place] [facility] [address] [id number] [place] [address] Aug, [facility] [place] [facility] [address] [id number] [place] [address] Aug, [facility] [place] [facility] [address] [id number] [place] [address] Aug, [facility] [place] [facility] [address] [id number] [place] [address] Aug, [facility] [place] [facility] [address] [id number] [place] [address] Aug, [facility] [place] [facility] [address] [id number] [place] [address] Aug, [facility] [place] [facility] [address] [id number] [place] [address] Aug, [facility] [place] [facility] [address] [id number] [place] [address] Aug, [facility] [place] [facility] [address] [id number] [place] [address] Aug, [facility] [place] [facility] [address] [id number] [place] [address] Aug, [facility] [place] [facility] [address] [id number] [place] [address] Aug, [facility] [place] [facility] [address] [id number] [place] [address] July, [facility] [place] [facility] [address] [id number] [place] [address] July, [facility] [place] [facility] [address] [id number] [place] [address] July, [facility] [place] [facility] [address] [id number] [place] [address] July, [facility] [place] [facility] [address] [id number] [place] [address] July, [facility] [place] [facility] [address] [id number] [place] [address] July, [facility] [place] [facility] [address] [id number] [place] [address] Jun, [facility] [place] [facility] [address] [id number] [place] [address] Jun, [facility] [place] [facility] [address] [id number] [place] [address] Jun, [facility] [place] [facility] [address] [id number] [place] [address] Jun, [facility] [place] [facility] [address] [id number] [place] [address] Jun, [facility] [place] [facility] [address] [id number] [place] [address] Jun, [facility] [place] [facility] [address] [id number] [place] [address] Jun, [facility] [place] [facility] [address] [id number] [place] [address] Jun, [facility] [place] [facility] [address] [id number] [place] [address] Jun, [facility] [place] [facility] [address] [id number] [place] [address] Jun, [facility] [place] [facility] [address] [id number] [place] [address] Jun, [facility] [place] [facility] [address] [id number] [place] [address] Jun, [facility] [place] [facility] [address] [id number] [place] [address] Jun, [facility] [place] [facility] [address] [id number] [place] [address] Jun, [facility] [place] [facility] [address] [id number] [place] [address] Jun, [facility] [place] [facility] [address] [id number] [place] [address] May, [facility] [place] [facility] [address] [id number] [place] [address] May, [facility] [place] [facility] [address] [id number] [place] [address] May, [facility] [place] [facility] [address] [id number] [place] [address] May, [facility] [place] [facility] [address] [id number] [place] [address] May, [facility] [place] [facility] [address] [id number] [place] [address] May, [facility] [place] [facility] [address] [id number] [place] [address] May, [facility] [place] [facility] [address] [id number] [place] [address] May, [facility] [place] [facility] [address] [id number] [place] [address] May, [facility] [place] [facility] [address] [id number] [place] [address] May, [facility] [place] [facility] [address] [id number] [place] [address] May, [facility] [place] [facility] [address] [facility] [id number] [place] [address] May, [facility] [place] [facility] [address] [id number] [place] [address] May, [facility] [place] [facility] [address] [id number] [place] [address] May, [facility] [place] [facility] [address] [facility] [id number] [place] [address] May, [facility] [place] [facility] [address] [facility] [id number] [place] [address] May, [facility] [place] [facility] [address] [id number] [place] [address] May, [facility] [place] [facility] [address] [id number] [place] [address] Apr, [facility] [place] [facility] [address] [id number] [place] [address] Apr, [facility] [place] [facility] [address] [id number] [place] [address] Apr, [facility] [place] [facility] [address] [id number] [address] Apr, [facility] [place] [facility] [address] [id number] [place] [address] Apr, [facility] [place] [facility] [address] [id number] [place] [address] Apr, [facility] [place] [facility] [address] [id number] [place] [address] Apr, [facility] [place] [facility] [address] [id number] [place] [address] Apr, [facility] [place] [facility] [address] [id number] [place] [address] Apr, [facility] [place] [facility] [address] [id number] [place] [address] Apr, [facility] [place] [facility] [address] [id number] [place] [address] Apr, [facility] [place] [facility] [address] [id number] [place] [address] Apr, [facility] [place] [facility] [address] [id number] [place] [address] Apr, [facility] [place] [facility] [address] [id number] [place] [address] Apr, [facility] [place] [facility] [address] [id number] [place] [address] Apr, [facility] [place] [facility] [address] [id number] [place] [address] Apr, [facility] [place] [facility] [address] [id number] [place] [address] Mar, [facility] [place] [facility] [address] [id number] [place] [address] Mar, [facility] [place] [facility] [address] [id number] [place] [address] Mar, [facility] [place] [facility] [address] [id number] [place] [address] 30 Mar, 2012 [facility] [address] [id number] [place] [address] 18 Mar, 2012 [facility] [place] [facility] [address] [id number] [place] [address] 18 Mar, 2012 [facility] [place] [facility] [address] [id number] [place] [address] 18 Mar, 2012 [facility] [place] [facility] [address] [id number] [place] [address] 18 Mar, 2012 [facility] [address] [id number] [place] [address] 17 Mar, 2013 [facility] [place] [facility] [address] [id number] [place] [address] 17 Mar, 2012 [facility] [place] [facility] [address] [id number] [place] [address] 05 Mar, 2013 [facility] [address] [id number] [place] [address] 05 Mar, 2013 [facility] [place] [facility] [address] [id number] [place] [address] 04 Mar, 2013 [facility] [place] [facility] [address] [id number] [place] [address] 04 Mar, 2013 [facility] [place] [facility] [address] [id number] [place] [address] 04 Mar, 2013 [facility] [place] [facility] [address] [id number] [place] [address] 04 Mar, 2013 [facility] [place] [facility] [address] [id number] [place] [address] 02 Mar, 2013 [facility] [place] [facility] [address] [id number] [place] [address] 02 Mar, 2013 [facility] [place] [facility] [address] [id number] [place] [address] Jan, [facility] [place] [facility] [address] [id number] [place] [address] Jan, [facility] [place] [facility] [address] [id number] [place] [address] Jan, [facility] [place] [facility] [address] [id number] [place] [address] Jan, [facility] [place] [facility] [address] [id number] [place] [address] Nov, [facility] [place] [facility] [address] [id number] [place] [address] Nov, [facility] [place] [facility] [address] [id number] [place] [address] Nov, [facility] [place] [facility] [address] [id number] [place] [address] Nov, [facility] [place] [facility] [address] [id number] [place] [address] Oct, [facility] [place] [facility] [address] [id number] [place] [address] Oct, [facility] [place] [facility] [address] [id number] [place] [address] Oct, [facility] [place] [facility] [address] [id number] [place] [address] Oct, [facility] [place] [facility] [address] [id number] [place] [address] Sep, [facility] [place] [facility] [address] [id number] [place] [address] Sep, [facility] [place] [facility] [address] [id number] [place] [address] Sep, [facility] [place] [facility] [address] [id number] [place] [address] Sep, [facility] [place] [facility] [address] [id number] [place] [address] Sep, [facility] [address] [id number] [place] [address] Sep, [facility] [address] [id number] [place] [address] Sep, [facility] [address] [id number] [place] [address] Sep, [facility] [address] [id number] [place] [address] Sep, [facility] [address] [id number] [place] [address] Aug, [facility] [address] [id number] [place] [address] Aug, [facility] [address] [id number] [place] [address] Aug, [facility] [address] [id number] [place] [address] Aug, [facility] [address] [id number] [place] [address] July, [facility] [address] [id number] [place] [address] July, [facility] [address] [id number] [place] [address] July, [facility] [address] [id number] [place] [address] July, [facility] [place] [facility] [address] [id number] [place] [address] July, [facility] [place] [facility] [address] [id number] [place] [address] July, [facility] [address] [id number] [place] [address] July, [facility] [id number] [address] Jun, [facility] [id number] [address] May, [facility] [id number] [address] May, [facility] [id number] [address] May, [facility] [id number] [address] May, [facility] [id number] [address] May, [facility] [id number] [address] May, [facility] [id number] [address] May, [facility] [id number] [address] May, IMMUNIZATIONS No Known Immunizations SOCIAL HISTORY [...] 03/2015 Hospitalization History Pneumonia 04/2015 [facility] - un[place] 11/2017 [facility]ization History [place] [facility]- one week 03/2018 Hospitalization History [facility] 03/10-03/12/2019 Hospitalization History [facility] 05/2018
--- NOTE | 2018-08-17 20:17 | Diagnostic Imaging Report ---
INDICATION: Shortness of breath. COMPARISON: Prior examination from 07/31/2018. EXAMINATION: Single view of the chest was obtained. FINDINGS: There is cardiomegaly. There is a left perihilar infiltrate. There is some venous congestion. There is no pleural effusion or pneumothorax. The mediastinum is unremarkable. IMPRESSION: 1. Left perihilar infiltrate, suspect for pneumonia. 2. Cardiomegaly and some central pulmonary congestion. Dictated by: Dictated on workstation # [id number]
[2018-08-17 20:31] LABS: BASOPHILS % (AUTO) 0 % (0-10); EOSINOPHILS # (AUTO) 0.3 10^3/uL (0.0-0.3); EOSINOPHILS % (AUTO) 2 % (0-10); HEMATOCRIT 34 % (35-52); HEMOGLOBIN 10.2 G/DL (11.5-16.0); LYMPHOCYTES % (AUTO) 15 % (12-44); MEAN CORPUSCULAR HEMOGLOBIN 33 PG (25-34); MEAN CORPUSCULAR HGB CONC 30 G/DL (32-36); MEAN CORPUSCULAR VOLUME 108 FL (80-99); MEAN PLATELET VOLUME 12.9 FL (7.4-10.4); MONOCYTES # (AUTO) 0.5 X 10^3 (0.0-1.0); MONOCYTES % (AUTO) 4 % (0-12); NEUTROPHILS # (AUTO) 10.5 X 10^3 (1.8-7.8); NEUTROPHILS % (AUTO) 79 % (42-75); PLATELET COUNT 137 10^3/uL (130-400); RED CELL DISTRIBUTION WIDTH 18.5 % (10.0-14.5); WHITE BLOOD COUNT 13.4 10^3/uL (4.3-11.0)
[2018-08-17 20:33] LABS: SMEAR SCAN COMMENT YES
[2018-08-17] MEDS ORDERED: LEVO500T2 PO ×3 (20:38→20:45)
[2018-08-17] MEDS ORDERED: LEVOFLOXACIN 500 MG TAB (LEVAQUIN) PO ONE (20:45)
[2018-08-17 20:48] LABS: ALBUMIN 3.8 GM/DL (3.2-4.5); BILIRUBIN,TOTAL 0.4 MG/DL (0.1-1.0); CALCIUM 9.3 MG/DL (8.5-10.1); CREATININE SERUM 7.43 MG/DL (0.60-1.30); POTASSIUM 5.3 MMOL/L (3.6-5.0); TOTAL PROTEIN 6.7 GM/DL (6.4-8.2)
[2018-08-17 21:00] VITALS: BP 110/87
--- NOTE | 2018-08-17 21:00 | NUR ---
PT TRANSFERRED TO WHEELCHAIR WITH SBA X1. PT TAKEN TO CAR AND PLACED ON PT'S HOME O2. DISCHARGE PAPERWORK WITH PATIENT.
== END 2018-08-17 21:00 | disposition home or self-care (01) ==
LOC: EDUNIT# 19:38 → ER 19:44
DX: E11.22 Type 2 diabetes mellitus with diabetic chronic kidney disease (principal); I12.0 Hypertensive chronic kidney disease with stage 5 chronic kidney disease or end stage renal disease; N18.6 End stage renal disease; I48.91 Unspecified atrial fibrillation; I25.10 Atherosclerotic heart disease of native coronary artery without angina pectoris; E78.00 Pure hypercholesterolemia, unspecified; I73.9 Peripheral vascular disease, unspecified; J43.9 Emphysema, unspecified; G43.909 Migraine, unspecified, not intractable, without status migrainosus; E11.40 Type 2 diabetes mellitus with diabetic neuropathy, unspecified; Z99.2 Dependence on renal dialysis; Z88.7 Allergy status to serum and vaccine; Z91.048 Other nonmedicinal substance allergy status; Z87.19 Personal history of other diseases of the digestive system; Z79.82 Long term (current) use of aspirin; Z79.4 Long term (current) use of insulin; Z79.52 Long term (current) use of systemic steroids; Z98.890 Other specified postprocedural states; Z90.710 Acquired absence of both cervix and uterus; Z93.0 Tracheostomy status; Z89.512 Acquired absence of left leg below knee
CPT/HCPCS: 36415; 71045; 80053; 80162; 85025

== ENCOUNTER 2018-08-20 06:09 | Emergency (ER) | payer MEDICARE, MEDICAID ==
[~2018-08-20] VITALS: Ht 157.5 cm; Wt 127.5 kg
[~2018-08-20 06:09] MED LIST changes: +LEVO500T2 PO
--- NOTE | 2018-08-20 06:10 | NUR ---
brought in by [facility] for c/o feeling cold/hot intermittantly.
--- OUTSIDE RECORDS SUMMARY | 2018-08-20 06:15 | XMS REPORT | Clinical Summary ---
Author Author [facility] Organization [facility] Address Unknown Phone Unavailable Care Team Providers Care Social Service Assistant Name Role Phone Mario Carver MD PCP Unavailable Source Comments Some departments are not documenting in the electronic medical record. If you d o not see the information that you expected, contact Release of Information in [facility] Information [facility] department at [phone] for further assistan ce in locating additional records.[facility] Allergies Not on File Medications [...] Medicare MEDICARE MEDICARE xxxxxxxxxx 2014- TRANSPLANT Present ([place]) [place] [address] Advance Directives Patient has advance care planning documents on file. For more information, neeraj ledbetter contact: [address] [address]
--- OUTSIDE RECORDS SUMMARY | 2018-08-20 06:16 | XMS REPORT ---
Author Author Migration, Doctor Organization [facility] Address Unknown Phone Unavailable Care Team Providers Care Visitor Services Associate Name Role Phone Migration, Doctor Unavailable Unavailable PROBLEMS Type Condition ICD9-CM Code WTM01-IT Code Onset Dates Condition Status SNOMED Code Problem Renal failure N19 Active 51779149 Problem Cellulitis of right lower extremity L03.115 Active 010265809 Problem Amput below knee, unilat S88.119A Active 82340883 Problem Neuropathy G62.9 Active 797164434 Problem Chronic congestive heart failure, unspecified congestive heart failure type I50.9 Active 17648379 Problem Intra-dialytic hypotension I95.3 Active 468829485 Problem Chronic congestive heart failure, unspecified heart failure type I50.9 Active 77535113 Problem Seasonal allergic rhinitis due to other allergic trigger J30.89 Active 341380029 Problem 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 Active 2816434 Problem Primary insomnia F51.01 Active 0278792 Problem Self-care deficit for toileting R46.0 Active 236801269 Problem Type 2 diabetes mellitus with hyperglycemia, unspecified whether information assistant insulin use E11.65 Active 763461282354656 Problem Other chronic pain G89.29 Active 22446878 Problem Diabetes type 2, controlled E11.9 Active 843923337 Problem Angina pectoris I20.9 Active 698660590 Problem Bronchitis J40 Active 23771572 Problem Paroxysmal atrial fibrillation I48.0 Active 032358066 Problem Observed sleep apnea G47.30 Active 54129655 Problem Unsteady gait R26.81 Active 802050814 ALLERGIES No Information ENCOUNTERS Encounter Location Date Diagnosis [facility] [address] [facility] [id number] [address] Aug, [facility] [address], [place] [address] July, [facility] [address] [id number], [place] [address] July, End stage congestive heart failure I50.84 and Diabetes type 2, controlled E11.9 [facility] [address], [place] [address] July, [facility] [id number] [place] [address] Jun, [facility] [id number] [place] [address] May, [facility] [id number] [place] [address] May, Diabetes type 2, controlled E11.9 [facility] [id number] [place] [address] May, [facility] [id number] [place] [address] May, Pressure injury of coccygeal region, stage 2 L89.152 ; Nausea R11.0 ; Chronic congestive heart failure, unspecified congestive heart failure type I50.9 ; Observed sleep apnea G47.30 and Morbid obesity E66.01 [facility] [id number] [id number] May, [facility] [id number] [place] [address] May, [facility] [id number] [place] [address] May, [facility] [id number] [place] [address] May, [facility] [id number] [place] [address] May, [facility] [id number] [place] [address] 18 May, 2018 Renal failure N19 [facility] [id number] [place] [address] 14 May, 2018 [facility] [id number] [place] [address] 13 May, 2018 Neuropathy G62.9 and Renal failure N19 [facility] [id number] [place] [address] 08 May, 2018 [facility] [id number] [place] [address] 07 May, 2018 [facility] [id number] [place] [address] 04 May, 2018 [facility] [id number] [place] [address] Apr, [facility] [id number] [place] [address] Apr, [facility] [id number] [place] [address] Apr, [facility] [id number] [place] [address] Mar, Diabetes type 2, controlled E11.9 [facility] [id number] [place] [address] Mar, Paroxysmal atrial fibrillation I48.0 ; Observed sleep apnea G47.30 ; Unsteady gait R26.81 and Bilious vomiting with nausea R11.14 [facility] [id number] [place] [address] Mar, [facility] [id number] [place] [address] Mar, [facility] [id number] [place] [address] Mar, [facility] [id number] [place] [address] Mar, [facility] [id number] [place] [address] Mar, Diabetes type 2, controlled E11.9 ; BMI 50.0-59.9, adult Z68.43 ; Bronchitis J40 and Other chronic pain G89.29 [facility] [id number] [place] [address] Mar, [facility] [id number] [place] [address] Mar, [facility] [id number] [place] [address] Jan, [facility] [id number] [place] [address] Jan, [facility] [id number] [place] [address] Dec, [facility] [id number] [place] [address] Dec, [facility] [id number] [place] [address] Dec, [facility] [id number] [place] [address] Nov, Pneumonia due to infectious organism, unspecified laterality, unspecified part of lung J18.9 and Self-care deficit for toileting R46.0 [facility] [id number] [place] [address] Nov, [facility] [id number] [place] [address] Oct, Diabetes type 2, controlled E11.9 ; Primary insomnia F51.01 and Bilateral headaches R51 [facility] [id number] [place] [address] Oct, [facility] [id number] [place] [address] Sep, [facility] [id number] [place] [id number] Sep, Dental examination Z01.20 and Dental caries K02.9 [facility] [address] [facility] [id number], [place] [address] Sep, [facility] [address] [facility] [id number], [place] [address] Sep, [facility] [address] [facility] [id number] [place] [address] Sep, Other chronic pain G89.29 and Pain in right knee M25.561 [facility] [address] [facility] [facility] [id number], [place] [address] Sep, [facility] [address] [facility] [facility] [id number] [place] [address] Aug, [facility] [id number] [place] [address] Aug, 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 [facility] [address] [facility] [id number] [place] [address] 15 Aug, 2017 [facility] [address] [facility] [facility] [id number] [place] [address] 11 Aug, 2017 Diabetes type 2, controlled E11.9 and Acute pain of right knee M25.561 [facility] [address] [id number], [place] [address] 09 Aug, 2017 [facility] [address] [facility] [id number], [place] [address] July, [facility] [address] [facility] [id number], [place] [address] 16 Jun, 2017 [facility] [address] [facility] [id number], [place] [address] 13 Jun, 2017 [facility] [address] [facility] [id number], [place] [address] 10 Jun, 2017 Diabetes type 2, controlled E11.9 [facility] [address], [place] [address] Jun, [facility] [address], [place] [address] May, [facility] [id number] [place] [address] May, [facility] [id number] [place] [address] May, [facility] [id number] [place] [address] May, Chronic congestive heart failure, unspecified congestive heart failure type I50.9 [facility] [id number] [place] [address] May, Diabetes type 2, controlled E11.9 ; BMI 50.0-59.9, adult Z68.43 ; Chronic congestive heart failure, unspecified heart failure type I50.9 ; Angina pectoris I20.9 ; Seasonal allergic rhinitis due to other allergic trigger J30.89 and Renal failure N19 [facility] [id number] [id number] May, [facility] [id number] [place] [address] May, [facility] [address], [place] [address] May, [facility] [address], [place] [address] May, [facility] [address], [place] [address] May, [facility] [address], [place] [address] Apr, BMI 50.0-59.9, adult Z68.43 [facility] [id number] [place] [address] 17 Jcarlos, 2018 BMI 50.0-59.9, adult Z68.43 ; Post-procedural fever R50.82 and Bronchitis J40 [facility] [id number] [place] [address] Apr, Chronic congestive heart failure, unspecified congestive heart failure type I50.9 [facility] [id number] [place] [address] Jan, [facility] [address] [address] Jan, Diabetes type 2, controlled E11.9 [facility] [id number] [place] [address] Jan, Neuropathy G62.9 [facility] [id number] [place] [address] Jan, [facility] [id number] [place] [address] Jan, [facility] [id number] [place] [address] Jan, [facility] [id number] [place] [address] Jan, [facility] [id number] [place] [address] Jan, [facility] [id number] [place] [address] Dec, [facility] [id number] [place] [address] Dec, [facility] [id number] [place] [address] Dec, Diabetes type 2, controlled E11.9 [facility] [id number] [place] [address] Dec, [facility] [id number] [place] [address] Dec, [facility] [id number], [place] [address] Dec, Chronic congestive heart failure, unspecified congestive heart failure type I50.9 [facility] [address] [facility] [id number], [place] [address] Dec, [facility] [address], [place] [address] Dec, [facility] [address], [place] [address] Nov, Chronic congestive heart failure, unspecified congestive heart failure type I50.9 [facility] [address], [place] [address] Nov, Chronic congestive heart failure, unspecified congestive heart failure type I50.9 [facility] [address], [place] [address] Nov, [facility] [address], [place] [address] Oct, [facility] [address], [place] [address] Oct, [facility] [address], [place] [address] Oct, Chronic congestive heart failure, unspecified congestive heart failure type I50.9 [facility] [address], [place] [address] Oct, [facility] [address], [place] [address] Oct, Pneumonia of both lungs due to infectious organism, unspecified part of lung J18.9 [facility] [id number], [place] [address] Oct, [facility] [address], [place] [address] Oct, Diabetes type 2, controlled E11.9 [facility] [address], [place] [address] Oct, Diabetes type 2, controlled E11.9 [facility] [address], [place] [address] Sep, [facility] [id number] [place] [address] Sep, Neuropathy G62.9 [facility] [id number], [place] [address] Aug, Intra-dialytic hypotension I95.3 [facility] [id number] [place] [address] July, [facility] [id number] [place] [address] July, [facility] [id number] [place] [address] July, [facility] [address], [place] [address] July, Amput below knee, unilat S88.119A [facility] [address], [place] [address] May, [facility] [address], [place] [address] May, Neuropathy G62.9 [facility] [address], [place] [address] May, [facility] [address], [place] [address] May, [facility] [address], [place] [address] May, [facility] [address], [place] [address] May, [facility] [id number] [address] May, Neuropathy G62.9 [facility] [id number] [address] Apr, [facility] [id number] [address] Apr, [facility] [id number] [place] [address], [place] [address] Apr, Diabetes type 2, controlled E11.9 and Renal failure N19 [facility] [id number] [place] [address], [place] [address] Apr, [facility] [id number] [address] Apr, [facility] [address] [place] [address], [place] [address] Mar, [facility] [id number] [address] Mar, [facility] [id number] [place] [address], [place] [address] Mar, [facility] [id number] [address] Mar, [facility] [id number] [address] Mar, [facility] [id number] [address] Jan, Localized edema R60.0 [facility] [id number] [address] Jan, [facility] [id number] [address] Jan, [facility] [id number] [address] Jan, [facility] [id number], [place] [address] Jan, [facility] [id number] [place] [address] Jan, [facility] [id number] [place] [address] Jan, [facility] [id number] [place] [address] Dec, Diabetes type 2, controlled E11.9 and Chronic nonintractable headache, unspecified headache type R51 [facility] [id number] [place] [address] Dec, [facility] [id number] [place] [address] Dec, [facility] [id number] [place] [address] Nov, [facility] [id number] [place] [address] Nov, [facility] [id number] [place] [address] Oct, [facility] [id number] [place] [address] Oct, Migraine without status migrainosus, not intractable, unspecified migraine type G43.909 [facility] [id number] [place] [address] Oct, [facility] [id number] [place] [address] Sep, Amput below knee, unilat S88.119A and Neuropathy G62.9 [facility] [id number] [place] [address] Sep, [facility] [id number] [place] [address] Sep, [facility] [address] [id number] [place] [address] Sep, [facility] [address] [id number] [place] [address] Aug, [facility] [address] [facility] [id number] [place] [address] Aug, [facility] [address] [facility] [id number] [place] [address] Aug, Diabetes type 2, controlled E11.9 [facility] [address] [id number] [place] [address] Aug, [facility] [address] [facility] [id number] [place] [address] Jun, Diabetes type 2, controlled E11.9 and Neuropathy G62.9 [facility] [address] [facility] [id number], [place] [address] Jun, [facility] [address] [facility] [id number] [place] [address] Jun, [facility] [address] [facility] [id number] [place] [address] Jun, [facility] [address] [facility] [id number] [place] [address] Jun, [facility] [address] [facility] [id number], [place] [address] May, [facility] [address] [id number] [place] [address] May, Diabetes type 2, controlled E11.9 [facility] [address] [facility] [id number] [place] [address] May, [facility] [address] [facility] [id number] [place] [address] May, [facility] [address], [place] [address] May, [facility] [address], [place] [address] May, 2015 [facility] [address], [place] [address] 17 May, 2015 [facility] [address], [place] [address] May, [facility] [address], [place] [address] May, [facility] [id number] [place] [address] May, COPD (chronic obstructive pulmonary disease) J44.9 [facility] [id number], [place] [address] May, [facility] [id number], [place] [address] May, [facility] [id number], [place] [address] May, [facility] [id number], [place] [address] May, [facility] [id number], [place] [address] May, [facility] [id number], [place] [address] May, Renal failure N19 and Pneumonia, organism unspecified, unspecified laterality, unspecified part of lung J18.9 [facility] [id number], [place] [address] Apr, [facility] [id number], [place] [address] Apr, [facility] [id number] [place] [address] Apr, [facility] [address] [id number] [place] [address] Apr, Diabetes mellitus 250.00 [facility] [address] [id number] [place] [address] 14 Apr, 2015 [facility] [address] [id number] [place] [address] Apr, [facility] [address] [id number] [place] [address] Apr, [facility] [id number] [place] [address], [place] [address] Apr, [facility] [address] [id number] [place] [address] Mar, [facility] [id number] [address] Mar, [facility] [address] [id number] [place] [address] 23 Mar, [address] [facility] [id number] [address] 16 Mar, 2015 Renal failure N19 [facility] [id number] [address] 14 Mar, 2015 [facility] [id number] [address] Mar, [facility] [address] [id number] [place] [address] 04 Mar, [address] [facility] [address] [id number] [place] [address] 24 Jan, [address] [facility] [address] [id number] [place] [address] 18 Jan, [address] [facility] [id number] [address] Jan, [facility] [place] [facility] [address] [id number] [place] [address] Jan, [facility] [place] [facility] [address] [id number] [place] [address] Dec, [facility] [place] [facility] [address] [facility] [id number] [place] [address] Dec, [facility] [place] [facility] [address] [facility] [id number] [place] [address], [place] [address] Dec, [facility] [place] [facility] [address] [facility] [id number] [place] [address], [place] [address] Nov, [facility] [place] [facility] [address] [facility] [id number] [place] [address], [place] [address] Nov, [facility] [place] [facility] [id number] [place] [address], [place] [address] Nov, [facility] [place] [facility] [id number] [place] [address], [place] [address] Oct, [facility] [place] [facility] [id number] [address] Oct, [facility] [place] [facility] [id number] [address] Oct, Renal failure 586 and Obesity 278.00 [facility] [place] [facility] [address] [facility] [id number], [place] [address] Oct, [facility] [place] [facility] [address] [facility] [id number], [place] [address] Oct, [facility] [place] [facility] [address] [facility] [id number], [place] [address] Oct, [facility] [place] [facility] [address] [facility] [id number] [place] [address] Sep, [facility] [place] [facility] [id number] [address] Sep, [facility] [place] [facility] [address] [facility] [id number] [place] [address] Sep, Diabetes mellitus 250.00 and Congestive heart failure, unspecified 428.0 [facility] [address] [id number] [place] [address] Aug, [facility] [id number] [place] [address] Aug, [facility] [address] [facility] [id number] [place] [address] Aug, [facility] [address] [id number] [place] [address] July, [facility] [id number] [address] July, [facility] [id number] [address] July, Heart murmur, systolic 785.2 [facility] [address] [id number] [place] [address] July, [facility] [id number] [place] [address] July, [facility] [id number] [place] [address] Jun, [facility] [address] [id number] [place] [address] Jun, [facility] [address] [id number] [place] [address] May, [facility] [address] [id number] [place] [address] May, [facility] [address] [facility] [id number] [place] [address] May, [facility] [address] [id number] [place] [address] May, [facility] [place] [facility] [address] [id number] [place] [address] 16 May, 2014 [facility] [place] [facility] [address] [id number] [place] [address] 16 May, 2014 [facility] [place] [facility] [address] [id number] [place] [address] 10 May, 2014 [facility] [place] [facility] [address] [id number] [place] [address] 10 May, 2014 [facility] [place] [facility] [address] [id number] [place] [address] May, [facility] [place] [facility] [address] [id number] [place] [address] May, [facility] [place] [facility] [address] [facility] [id number] [place] [address] May, 2014 [facility] [place] [facility] [address] [id number] [place] [address] May, 2014 [facility] [place] [facility] [address] [id number] [place] [address] May, [facility] [place] [facility] [address] [facility] [id number] [place] [address] May, 2014 [facility] [place] [facility] [address] [facility] [id number] [place] [address] May, 2014 [facility] [place] [facility] [address] [id number] [place] [address] May, 2014 [facility] [place] [facility] [address] [id number] [place] [address] May, 2014 [facility] [place] [facility] [address] [id number] [place] [address] May, 2014 [facility] [place] [facility] [address] [facility] [id number] [place] [address] May, 2014 [facility] [place] [facility] [address] [id number] [place] [address] 18 May, 2014 [facility] [place] [facility] [address] [id number] [place] [address] May, 2014 [facility] [place] [facility] [address] [id number] [place] [address] 16 May, 2014 [facility] [place] [facility] [address] [id number] [place] [address] May, 2014 [facility] [place] [facility] [address] [id number] [place] [address] May, 2014 [facility] [place] [facility] [address] [id number] [place] [address] May, 2014 [facility] [place] [facility] [address] [id number] [place] [address] May, 2014 [facility] [place] [facility] [address] [id number] [place] [address] Apr, [facility] [place] [facility] [address] [id number] [place] [address] Apr, [facility] [place] [facility] [address] [id number] [place] [address] Apr, [facility] [place] [facility] [address] [id number] [place] [address] Apr, [facility] [place] [facility] [address] [id number] [place] [address] Apr, [facility] [place] [facility] [address] [id number] [place] [address] Apr, [facility] [place] [facility] [address] [id number] [place] [address] Apr, [facility] [place] [facility] [address] [id number] [place] [address] Apr, [facility] [place] [facility] [address] [id number] [place] [address] Mar, [facility] [place] [facility] [address] [id number] [place] [address] Mar, [facility] [place] [facility] [address] [id number] [place] [address] Mar, [facility] [place] [facility] [address] [id number] [place] [address] Mar, [facility] [place] [facility] [address] [id number] [place] [address] Mar, [facility] [place] [facility] [address] [id number] [place] [address] Mar, [facility] [place] [facility] [address] [id number] [place] [address] Mar, [facility] [place] [facility] [address] [id number] [place] [address] Mar, [facility] [place] [facility] [address] [id number] [place] [address] Mar, [facility] [place] [facility] [address] [id number] [place] [address] Mar, [facility] [place] [facility] [address] [id number] [place] [address] Mar, [facility] [place] [facility] [address] [id number] [place] [address] Mar, [facility] [place] [facility] [address] [id number] [place] [address] Mar, [facility] [place] [facility] [address] [id number] [place] [address] Mar, [facility] [place] [facility] [address] [id number] [place] [address] Mar, [facility] [place] [facility] [address] [id number] [place] [address] Mar, [facility] [place] [facility] [address] [id number] [place] [address] Mar, [facility] [place] [facility] [address] [id number] [place] [address] Mar, [facility] [place] [facility] [address] [id number] [place] [address] Mar, [facility] [place] [facility] [address] [id number] [place] [address] Mar, [facility] [place] [facility] [address] [id number] [place] [address] Mar, [facility] [place] [facility] [address] [id number] [place] [address] Mar, [facility] [place] [facility] [address] [id number] [place] [address] Jan, [facility] [place] [facility] [address] [id number] [place] [address] Jan, [facility] [place] [facility] [address] [id number] [place] [address] Jan, [facility] [place] [facility] [address] [id number] [place] [address] Jan, [facility] [place] [facility] [address] [facility] [id number] [place] [address] Jan, [facility] [place] [facility] [address] [id number] [place] [address] Jan, [facility] [place] [facility] [address] [id number] [place] [address] Jan, [facility] [place] [facility] [address] [id number] [place] [address] Jan, [facility] [place] [facility] [address] [id number] [place] [address] Jan, [facility] [place] [facility] [address] [id number] [place] [address] Jan, [facility] [place] [facility] [address] [id number] [place] [address] Jan, [facility] [place] [facility] [address] [id number] [place] [address] Jan, [facility] [place] [facility] [address] [id number] [place] [address] Jan, [facility] [place] [facility] [address] [id number] [place] [address] Jan, [facility] [place] [facility] [address] [id number] [place] [address] Jan, [facility] [place] [facility] [address] [id number] [place] [address] Jan, [facility] [place] [facility] [address] [id number] [place] [address] Jan, [facility] [place] [facility] [address] [id number] [place] [address] Jan, [facility] [place] [facility] [address] [id number] [place] [address] Jan, [facility] [place] [facility] [address] [id number] [place] [address] Jan, [facility] [place] [facility] [address] [id number] [place] [address] Dec, [facility] [place] [facility] [address] [id number] [place] [address] Dec, [facility] [place] [facility] [address] [id number] [place] [address] Dec, [facility] [place] [facility] [address] [id number] [place] [address] Dec, [facility] [place] [facility] [address] [id number] [place] [address] Dec, [facility] [place] [facility] [address] [id number] [place] [address] 14 Dec, 2013 [facility] [place] [facility] [address] [id number] [place] [address] 14 Dec, 2013 [facility] [place] [facility] [address] [id number] [place] [address] Dec, [facility] [place] [facility] [address] [id number] [place] [address] Dec, [facility] [place] [facility] [address] [id number] [place] [address] Dec, [facility] [place] [facility] [address] [id number] [place] [address] Dec, [facility] [place] [facility] [address] [id number] [place] [address] Dec, [facility] [place] [facility] [address] [id number] [place] [address] Dec, [facility] [place] [facility] [address] [id number] [place] [address] Dec, [facility] [place] [facility] [address] [id number] [place] [address] Dec, [facility] [place] [facility] [address] [id number] [place] [address] 22 Nov, 2013 [facility] [place] [facility] [address] [id number] [place] [address] 22 Nov, 2013 [facility] [place] [facility] [address] [id number] [place] [address] 19 Nov, 2013 [facility] [place] [facility] [address] [id number] [place] [address] 19 Nov, 2013 [facility] [place] [facility] [address] [id number] [place] [address] 13 Nov, 2013 [facility] [place] [facility] [address] [id number] [place] [address] 13 Nov, 2013 [facility] [place] [facility] [address] [id number] [place] [address] 10 Nov, 2013 [facility] [place] [facility] [address] [id number] [place] [address] 10 Nov, 2013 [facility] [place] [facility] [address] [id number] [place] [address] 08 Nov, 2013 [facility] [place] [facility] [address] [id number] [place] [address] 05 Nov, 2013 [facility] [place] [facility] [address] [id number] [place] [address] 05 Nov, 2013 [facility] [place] [facility] [address] [id number] [place] [address] Nov, 2013 [facility] [place] [facility] [address] [id number] [place] [address] Nov, 2013 [facility] [place] [facility] [address] [id number] [place] [address] Oct, [facility] [place] [facility] [address] [id number] [place] [address] Oct, [facility] [place] [facility] [address] [id number] [place] [address] Oct, [facility] [place] [facility] [address] [id number] [place] [address] Oct, [facility] [place] [facility] [address] [id number] [place] [address] Oct, [facility] [place] [facility] [address] [id number] [place] [address] Sep, [facility] [place] [facility] [address] [id number] [place] [address] Sep, [facility] [place] [facility] [address] [id number] [place] [address] Sep, [facility] [place] [facility] [address] [id number] [place] [address] Sep, [facility] [place] [facility] [address] [id number] [place] [address] Aug, [facility] [place] [facility] [address] [id number] [place] [address] Aug, [facility] [place] [facility] [address] [id number] [place] [address] Aug, [facility] [place] [facility] [address] [id number] [place] [address] Aug, [facility] [place] [facility] [address] [id number] [place] [address] Aug, [facility] [place] [facility] [address] [id number] [place] [address] Aug, [facility] [place] [facility] [address] [id number] [place] [address] Aug, [facility] [place] [facility] [address] [id number] [place] [address] Aug, [facility] [place] [facility] [address] [id number] [place] [address] Aug, [facility] [place] [facility] [address] [id number] [place] [address] Aug, [facility] [place] [facility] [address] [id number], [place] [address] Aug, [facility] [place] [facility] [address] [id number], [place] [address] Aug, [facility] [place] [facility] [address] [id number] [place] [address] Aug, [facility] [place] [facility] [address] [id number] [place] [address] Aug, [facility] [place] [facility] [address] [id number], [place] [address] 16 Aug, 2013 [facility] [place] [facility] [address] [id number], [place] [address] Aug, [facility] [place] [facility] [address] [id number] [place] [address] Aug, [facility] [place] [facility] [address] [id number] [place] [address] Aug, [facility] [place] [facility] [address] [id number] [place] [address] Aug, [facility] [place] [facility] [address] [id number] [place] [address] Aug, [facility] [place] [facility] [address] [id number] [place] [address] Aug, [facility] [place] [facility] [address] [id number] [place] [address] Aug, [facility] [place] [facility] [address] [id number] [place] [address] Aug, [facility] [place] [facility] [address] [id number] [place] [address] Aug, [facility] [place] [facility] [address] [id number] [place] [address] July, [facility] [place] [facility] [address] [id number] [place] [address] July, [facility] [place] [facility] [address] [id number] [place] [address] July, [facility] [place] [facility] [address] [id number] [place] [address] July, [facility] [place] [facility] [address] [id number] [place] [address] July, [facility] [place] [facility] [address] [id number] [place] [address] July, [facility] [place] [facility] [address] [id number] [place] [address] Jun, [facility] [place] [facility] [address] [id number] [place] [address] 30 Jun, 2013 [facility] [place] [facility] [address] [id number] [place] [address] Jun, [facility] [place] [facility] [address] [id number] [place] [address] Jun, [facility] [place] [facility] [address] [id number] [place] [address] Jun, [facility] [place] [facility] [address] [id number] [place] [address] Jun, [facility] [place] [facility] [address] [id number] [place] [address] Jun, [facility] [place] [facility] [address] [id number] [place] [address] Jun, [facility] [place] [facility] [address] [id number] [place] [address] Jun, [facility] [place] [facility] [address] [id number] [place] [address] Jun, [facility] [place] [facility] [address] [id number] [place] [address] Jun, [facility] [place] [facility] [address] [id number] [place] [address] Jun, [facility] [place] [facility] [address] [id number] [place] [address] Jun, [facility] [place] [facility] [address] [id number] [place] [address] Jun, [facility] [place] [facility] [address] [id number] [place] [address] Jun, [facility] [place] [facility] [address] [id number] [place] [address] May, [facility] [place] [facility] [address] [id number] [place] [address] May, [facility] [place] [facility] [address] [id number] [place] [address] May, [facility] [place] [facility] [address] [id number] [place] [address] May, [facility] [place] [facility] [address] [id number] [place] [address] May, [facility] [place] [facility] [address] [id number] [place] [address] May, [facility] [place] [facility] [address] [id number] [place] [address] May, [facility] [place] [facility] [address] [id number] [place] [address] May, [facility] [place] [facility] [address] [id number] [place] [address] May, [facility] [place] [facility] [address] [id number] [place] [address] May, [facility] [place] [facility] [address] [id number] [place] [address] May, [facility] [place] [facility] [address] [id number] [place] [address] May, [facility] [place] [facility] [address] [id number] [place] [address] May, [facility] [place] [facility] [address] [id number] [place] [address] May, [facility] [place] [facility] [address] [id number] [place] [address] May, [facility] [place] [facility] [address] [id number] [place] [address] May, [facility] [place] [facility] [address] [id number] [place] [address] May, [facility] [place] [facility] [address] [id number] [place] [address] Apr, [facility] [address] [id number] [place] [address] Apr, [facility] [place] [facility] [address] [id number] [place] [address] Apr, [facility] [address] [id number] [place] [address] Apr, [facility] [address] [id number] [place] [address] Apr, [facility] [address] [id number] [place] [address] Apr, [facility] [address] [id number] [place] [address] Apr, [facility] [address] [id number] [place] [address] Apr, [facility] [address] [id number] [place] [address] Apr, [facility] [address] [id number] [place] [address] Apr, [facility] [address] [id number] [place] [address] Apr, [facility] [address] [id number] [place] [address] Apr, [facility] [address] [id number] [place] [address] Apr, [facility] [facility] [address] [id number] [place] [address] Apr, [facility] [address] [id number] [place] [address] Apr, [facility] [address] [id number] [place] [address] Apr, [facility] [address] [id number] [place] [address] 30 Mar, 2013 [facility] [facility] [address] [id number] [place] [address] Mar, [facility] [place] [facility] [address] [id number] [place] [address] Mar, [facility] [place] [facility] [address] [id number] [place] [address] Mar, [facility] [place] [facility] [address] [id number] [place] [address] Mar, [facility] [facility] [address] [id number] [place] [address] Mar, [facility] [address] [id number] [place] [address] Mar, [facility] [facility] [address] [id number] [place] [address] Mar, [facility] [place] [facility] [address] [id number] [place] [address] Mar, [facility] [facility] [address] [id number] [place] [address] Mar, [facility] [place] [facility] [address] [id number] [place] [address] Mar, [facility] [place] [facility] [address] [id number], [place] [address] 05 Mar, 2013 [facility] [place] [facility] [address] [id number] [place] [address] Mar, [facility] [facility] [address] [id number] [place] [address] Mar, [facility] [address] [id number] [place] [address] Mar, [facility] [facility] [address] [id number] [place] [address] Mar, [facility] [address] [id number] [place] [address] Mar, [facility] [facility] [address] [id number] [place] [address] Mar, [facility] [facility] [address] [id number] [place] [address] Jan, [facility] [address] [id number] [place] [address] Jan, [facility] [address] [id number] [place] [address] Jan, [facility] [facility] [address] [id number] [place] [address] Jan, [facility] [address] [id number] [place] [address] Nov, [facility] [facility] [address] [id number] [place] [address] Nov, [facility] [facility] [address] [id number] [place] [address] Nov, [facility] [facility] [address] [id number] [place] [address] Nov, [facility] [address] [id number] [place] [address] Oct, [facility] [facility] [address] [id number] [place] [address] Oct, [facility] [address] [id number] [place] [address] Oct, [facility] [address] [id number] [place] [address] Oct, [facility] [place] [facility] [address] [id number] [place] [address] Sep, [facility] [address] [id number] [place] [address] Sep, [facility] [address] [id number] [place] [address] Sep, [facility] [address] [id number] [place] [address] Sep, [facility] [address] [id number] [place] [address] Sep, [facility] [address] [id number] [place] [address] Sep, [facility] [address] [id number] [place] [address] Sep, [facility] [address] [id number] [place] [address] Sep, [facility] [address] [id number] [place] [address] Sep, [facility] [address] [id number] [place] [address] Aug, [facility] [facility] [address] [id number] [place] [address] Aug, [facility] [address] [id number] [place] [address] Aug, [facility] [address] [id number] [place] [address] Aug, [facility] [address] [id number] [place] [address] July, [facility] [address] [id number] [place] [address] July, [facility] [address] [id number] [place] [address] July, [facility] [address] [id number] [place] [address] July, [facility] [address] [id number] [address] July, [facility] [id number], [place] [address] July, [facility] [address] [id number], [place] [address] July, [facility] [id number], [place] [address] Jun, [facility] [address] [id number], [place] [address] May, [facility] [id number], [place] [address] May, [facility] [id number], [place] [address] May, [facility] [address] [id number], [place] [address] May, [facility] [id number], [place] [address] May, [facility] [id number], [place] [address] May, [facility] [id number], [place] [address] May, [facility] [id number], [place] [address] May, IMMUNIZATIONS No Known Immunizations SOCIAL HISTORY Never Assessed REASON FOR VISIT [place] [place] VITAL SIGNS MEDICATIONS Unknown [...] Hospitalization History [facility] 03/10-03/12/2019 Hospitalization History [facility] ER 05/2018
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
[2018-08-20] MEDS ORDERED: VITA100C20 PO (06:36)
[2018-08-20 06:45] VITALS: BP 98/51
== END 2018-08-20 06:45 | disposition home or self-care (01) ==
LOC: EDUNIT# 06:09 → ER 06:11
DX: N95.1 Menopausal and female climacteric states (principal); J43.9 Emphysema, unspecified; J45.909 Unspecified asthma, uncomplicated; G43.909 Migraine, unspecified, not intractable, without status migrainosus; E11.40 Type 2 diabetes mellitus with diabetic neuropathy, unspecified; E11.51 Type 2 diabetes mellitus with diabetic peripheral angiopathy without gangrene; E11.621 Type 2 diabetes mellitus with foot ulcer; F17.210 Nicotine dependence, cigarettes, uncomplicated; Z98.51 Tubal ligation status; Z87.19 Personal history of other diseases of the digestive system; Z90.710 Acquired absence of both cervix and uterus; Z93.0 Tracheostomy status; Z88.8 Allergy status to other drugs, medicaments and biological substances; Z88.7 Allergy status to serum and vaccine; Z79.82 Long term (current) use of aspirin; Z79.4 Long term (current) use of insulin; Z99.2 Dependence on renal dialysis; Z89.512 Acquired absence of left leg below knee
CPT/HCPCS: 99283

== ENCOUNTER 2018-08-20 14:08 | Emergency (ER) | payer MEDICARE, MEDICAID ==
[~2018-08-20] VITALS: Ht 157.5 cm; Wt 127.5 kg
[~2018-08-20 14:08] MED LIST changes: +VITA100C20 PO
[2018-08-20] MEDS ORDERED: NS 1000 ML IV BAG IV ONE (14:10)
[2018-08-20] MEDS ORDERED: ATROPINE INJECTION 1 MG/10 ML SYR (ABBOTT) INJ ONE (14:10)
[2018-08-20] MEDS ORDERED: CALCIUM CHLORIDE 1 GM/10 ML (IMS) SYR INJ ONE (14:10)
[2018-08-20] MEDS ORDERED: ROCURONIUM 10 MG/ML 5 ML SYRINGE IV ONE (14:10)
[2018-08-20] MEDS ORDERED: ETOMIDATE IV SOLN 20 MG/10 ML VIAL IV ONE (14:10)
--- NOTE | 2018-08-20 14:45 | NUR ---
1445: PTS HERE AT THIS TIME. DISCUSSION WITH DR BENTLEY TAKING PLACE REGARDING PTS CONDITION AND NEED FOR A CENTRAL LINE. PT WANTED TO MAKE DECISION BECAUSE HE IS THE DPOA. STATED THAT IF PT NEEDS IT THEN DO IT. 1446: PTS HR STILL IN THE 40'S, ZOLL PATCHES APPLIED. 1447: PT EXTERNALLY PACED ATT, NOT CAPTURING WELL. 1525: 1 AMP CALCIUM CHOLRIDE GIVEN 1541: ETOMIATE 40MG GIVE ATT FOR INTUBATION 1543: 130MG ROCURONIUM GIVEN IVP 1543: ETT 7.5 22 AT THE LIPS PLACED BY DR BENTLEY, POSITIVE COLOR CHANGE
[2018-08-20] MEDS ORDERED: fentaNYL INJECTION 100 MCG/2 ML AMP ONE (14:49)
[2018-08-20] MEDS ORDERED: NS (IVPB) 250 ML ONE (15:02)
[2018-08-20] MEDS ORDERED: NOREPINEPHRINE 4 MG/4 ML (LEVOPHED) AMP IV ONE (15:02)
--- NOTE | 2018-08-20 15:32 | ED Respiratory ---
General Chief Complaint: Respiratory Problems Stated Complaint: BS ISSUES Source: patient Exam Limitations: no limitations History of Present Illness Date Seen by Provider: August 20, 2018 Time Seen by Provider: 14:45 Initial Comments 52-year-old female who is brought to the emergency room by [facility] for complaints of elevated blood sugar, hypoxia, and weakness. She was seen and evaluated in the emergency room this morning for a hot flash and was sent home to dialysis which she did not go to. She is end-stage renal failure, COPD, morbid obesity, she is alert and oriented on arrival to the emergency room. Timing/Duration: just prior to arrival Associated Symptoms: shortness of breath Allergies and Home Medications Allergies Coded Allergies: aloe vera (Verified Allergy, Severe, RASH, 11/05/13) flu vaccine [id number](4 yr+) (Verified Allergy, Mild, HIVES, 04/22/12) adhesive (Verified Allergy, Unknown, 05/01/07) Uncoded Allergies: TAPE (Allergy, Mild, 05/16/10) Home Medications Amlodipine Besylate 10 Mg Tablet, 10 MG PO HS, (Reported) Aspirin 81 Mg Tablet.dr, 81 MG PO DAILY, (Reported) Fluticasone Propionate 16 Gm [place].susp, 1 SPRAY NA DAILY PRN for ALLERGIES, (Reported) Furosemide 40 Mg Tablet, 40 MG PO DAILY, (Reported) Gabapentin 300 Mg Capsule, 300 MG PO TID, (Reported) Hydrocodone/Acetaminophen 1 Each Tablet, 1 TAB PO Q6H PRN for PAIN-MODERATE, (Reported) Hydroxyzine HCl 25 Mg Tablet, 25 MG PO TID PRN for an, (Reported) Insulin Glargine,Hum.rec.anlog 100 Unit/1 Ml Insuln.pen, 30 UNITS SQ HS, (Reported) Insulin Lispro 100 Unit/1 Ml Insuln.pen, SQ HS, (Reported) 100-200 = 12-16 UNITS ABOVE 300 = 20 UNITS ABOVE 400 = CALL Isosorbide Mononitrate 30 Mg Tab.er.24h, 30 MG PO HS, (Reported) Levofloxacin 500 Mg Tablet, 500 MG PO Q48H every other day x3 doses. Next dose 08/19/18 Prescribed by: CRYSTAL MATTA on 08/17/182044 Loratadine 10 Mg Tablet, 10 MG PO HS, (Reported) Metoprolol Tartrate 100 Mg Tablet, 100 MG PO BID, (Reported) Montelukast Sodium 10 Mg Tablet, 10 MG PO HS, (Reported) Naproxen 375 Mg Tablet, 375 MG PO BID PRN for PAIN-MILD, (Reported) Ondansetron 8 Mg Tab.rapdis, 8 MG PO Q8H PRN for NAUSEA/VOMITING-1ST LINE, (Reported) Ondansetron 4 Mg Tab.rapdis, 4 MG SL Q4H PRN for NAUSEA/VOMITING Prescribed by: MIRTA BERRIOS on 06/05/18 0652 Prednisone 10 Mg Tab.ds.pk, 10 MG PO DAILY Take 6 tabs(60mg)daily,decrease by 1 tab(10MG)daily. Prescribed by: PATRICK BENTLEY on 07/30/18 180 Rosuvastatin Calcium 20 Mg Tablet, 20 MG PO HS, (Reported) Sevelamer Carbonate 800 Mg Tablet, 3,200 MG PO BID WITH MEALS, (Reported) TAKES 4 (800MG) TABLETS WITH BREAKFAST AND SUPPER AND TAKES 2 (800MG) TABLETS WITH SNACK Sevelamer Carbonate 800 Mg Tablet, 1,600 MG PO DAILY WITH SNACK, (Reported) TAKES 2 (800MG) TABLETS Vit B Cmplx 3/FA/Vit C/Biotin 1 Each Tablet, 1 TAB PO DAILY, (Reported) Vitamin E (Dl,Tocopheryl Acet) 100 Unit Capsule, 100 UNIT PO DAILY Prescribed by: PATRICK BENTLEY on 08/20/18 0636 Patient Home Medication List Home Medication List Reviewed: Yes Review of Systems Review of Systems Constitutional: see HPI; No chills, No fever; weakness Respiratory: see HPI, dyspnea on exertion, short of breath All Other Systems Reviewed Negative Unless Noted: Yes Past Ljqxlfb-Kojrha-Vyeuyu Hx Past Med/Social Hx: Reviewed Nursing Past Med/Soc Hx Patient Social History Type Used: Cigarettes 2nd Hand Smoke Exposure: Yes Recent Hopitalizations: No Physical Abuse: No Sexual Abuse: No Immunizations Up To Date Tetanus Booster (TDap): Less than 5yrs PED Vaccines UTD: No Date of Pneumonia Vaccine: Sep 02, 2013 Seasonal Allergies Seasonal Allergies: Yes Past Medical History Surgeries: Yes (DIALYSIS AV FISTULA/GRAFT LEFT UPPER ARM, LEFT BKA) Amputation, Arteriovenous Shunt, Cardiac, Section, Dialysis, Hysterectomy, Orthopedic, Tracheostomy, Vascular Surgery Respiratory: Yes Asthma, COPD, Emphysema Currently Using CPAP: No Currently Using BIPAP: No Cardiac: Yes Atrial Fibrillation, Chronic Edema/Swelling, Coronary Artery Disease, High Cholesterol, Hypertension, Peripheral Vascular Neurological: Yes Headaches /Migraines, Neuropathy 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 Sexually Transmitted Disease: No HIV/AIDS: No Genitourinary: Yes Renal Failure, Dialysis Gastrointestinal: Yes Chronic Constipation Musculoskeletal: Yes Arthritis, Chronic Back Pain, Fractures Endocrine: Yes Diabetes, Insulin dep HEENT: No Loss of Vision: Denies Hearing Impairment: Denies, Hard of Hearing Cancer: No Psychosocial: No Integumentary: Yes (DIABETIC ULCERS; CELLULITIS AND DRAINAGE FROM STUMP LEFT BKA) Blood Disorders: No Adverse Reaction/Blood Tranf: No Family Medical History Reviewed Nursing Family Hx Diabetes mellitus Family history: Asthma 09 BROTHER No Family History of: AIDS Abdominal aortic aneurysm Eaton's disease Alcoholism Alzheimer's disease Aphasia Arthritis Asthma Cancer of mouth Cardiovascular disease Cataracts Colon cancer Completed stroke Congenital disease Congenital heart disease Coronary thrombosis Cystic fibrosis Deafness or hearing loss Dementia Drug abuse Dysphasia Fibrocystic disease of breast Gastroenteritis Glaucoma Headache disorder Hypercholesterolemia Hypertension Infertility Kidney disease Myocardial infarction Neoplasm Not obtainable due to adoption Osteoporosis Parkinson's disease Prostate cancer Psychosocial problem Respiratory disorder Seizure disorder Severe allergy Thyroid disease Tuberculosis Visual disorder Physical Exam Vital Signs - First Documented 08/20/18 14:10 Temp 96.0 Pulse 54 Resp 44 B/P (MAP) 89/46 (60) Pulse Ox 97 O2 Delivery Nasal Cannula O2 Flow Rate 5.00 Capillary Refill : Height: 5'2.00" Weight: 281lbs. 0oz. 127.831204vx; 53.4 BMI Method:Stated General Appearance: WD/WN, moderate distress HEENT: PERRL/EOMI, normal ENT inspection, TMs normal, pharynx normal Neck: non-tender, full range of motion, supple, normal inspection, carotid bruit Respiratory: chest non-tender, lungs clear, normal breath sounds, no respiratory distress, no accessory muscle use, other (hyperventilating) Cardiovascular: normal peripheral pulses, regular rate, rhythm, no edema, no gallop, no JVD, no murmur Extremities: normal capillary refill, other (below the knee amputation of the left lower extremity.) Neurologic/Psychiatric: alert, normal mood/affect, oriented x 3 Skin: normal color, warm/dry Focused Exam Lactate Level 08/20/18 15:47: Lactic Acid Level 4.63*H Lactic Acid Level Laboratory Tests Test 08/20/18 15:47 Lactic Acid Level 4.63 MMOL/L (0.50-2.00) *H Progress/Results/Core Measures Suspected Sepsis SIRS Temperature: Pulse: Respiratory Rate: Laboratory Tests 08/20/18 15:47: White Blood Count 12.3H Blood Pressure / Mean: 08/20/18 15:47: Lactic Acid Level 4.63*H Laboratory Tests 08/20/18 15:47: Creatinine 6.23#H, Platelet Count 125L, Total Bilirubin 0.6 Results/Orders Lab Results Laboratory Tests Test 08/20/18 14:17 08/20/18 15:47 Range/Units Glucometer 335 H 70-110 MG/DL White Blood Count 12.3 H 4.3-11.0 10^3/uL Red Blood Count 3.24 L 4.35-5.85 10^6/uL Hemoglobin 10.5 L 11.5-16.0 G/DL Hematocrit 35 35-52 % Mean Corpuscular Volume 108 H 80-99 FL Mean Corpuscular Hemoglobin 32 25-34 PG Mean Corpuscular Hemoglobin Concent 30 L 32-36 G/DL Red Cell Distribution Width 18.6 H 10.0-14.5 % Platelet Count 125 L 130-400 10^3/uL Mean Platelet Volume 13.4 H 7.4-10.4 FL Neutrophils (%) (Auto) 81 H 42-75 % Lymphocytes (%) (Auto) 17 12-44 % Monocytes (%) (Auto) 2 0-12 % Eosinophils (%) (Auto) 1 0-10 % Basophils (%) (Auto) 0 0-10 % Neutrophils # (Auto) 10.0 H 1.8-7.8 X 10^3 Lymphocytes # (Auto) 2.1 1.0-4.0 X 10^3 Monocytes # (Auto) 0.2 0.0-1.0 X 10^3 Eosinophils # (Auto) 0.1 0.0-0.3 10^3/uL Basophils # (Auto) 0.0 0.0-0.1 10^3/uL Sodium Level 136 135-145 MMOL/L Potassium Level 7.9 *H 3.6-5.0 MMOL/L Chloride Level 98 98-107 MMOL/L Carbon Dioxide Level 21 21-32 MMOL/L Anion Gap 17 H 5-14 MMOL/L Blood Urea Nitrogen 39 H 7-18 MG/DL Creatinine 6.23 #H 0.60-1.30 MG/DL Estimat Glomerular Filtration Rate 7 BUN/Creatinine Ratio 6 Glucose Level 441 *H 70-105 MG/DL Lactic Acid Level 4.63 *H 0.50-2.00 MMOL/L Calcium Level 9.3 8.5-10.1 MG/DL Corrected Calcium 9.5 8.5-10.1 MG/DL Total Bilirubin 0.6 0.1-1.0 MG/DL Aspartate Amino Transf (AST/SGOT) 95 H 5-34 U/L Alanine Aminotransferase (ALT/SGPT) 71 H 0-55 U/L Alkaline Phosphatase 172 H 40-136 U/L Troponin I < 0.028 <0.028 NG/ML Total Protein 6.4 6.4-8.2 GM/DL Albumin 3.7 3.2-4.5 GM/DL My Orders Orders - KASEY PAT Cbc With Automated Diff (08/20/18 15:26) Comprehensive Metabolic Panel (08/20/18 15:26) Blood Culture (08/20/18 15:26) Ekg Tracing (08/20/18 15:26) O2 (08/20/18 15:26) Ed Iv/Invasive Line Start (08/20/18 15:26) Monitor-Rhythm Ecg Trace Only (08/20/18 15:26) Lactic Acid Analyzer (08/20/18 15:26) Ipratropium 0.02% Neb Solution (Atrovent (08/20/18 15:58) Albuterol Pre-Mix Nebs (Rt) (Proventil (08/20/18 15:58) Propofol Drip (Icu) (Diprivan Drip (Icu) (08/20/18 16:04) Medications Given in ED Current Medications Medications Dose Ordered Sig/Lindy Route Start Time Stop Time Status Last Admin Dose Admin Fentanyl Citrate 100 mcg STK-MED ONCE .ROUTE 08/20/18 14:49 08/20/18 14:53 DC 08/20/18 14:53 75 MCG Norepinephrine 4 mg STK-MED ONCE IV 08/20/18 15:02 08/20/18 15:06 DC 08/20/18 15:25 4 MG Propofol 100 ml @ ud STK-MED ONCE IV 08/20/18 16:04 08/20/18 16:10 DC 08/20/18 16:05 1,600 MLS/HR Sodium Chloride 250 ml @ ud STK-MED ONCE .ROUTE 08/20/18 15:02 08/20/18 15:06 DC 08/20/18 15:25 48 MLS/HR Sodium Chloride 1,000 ml @ ud STK-MED ONCE .ROUTE 08/20/18 16:14 08/20/18 16:18 DC 08/20/18 14:41 1,000 MLS/HR Vital Signs/I&O 08/20/18 08/20/18 08/20/18 14:10 16:05 17:56 Temp 96.0 96.0 97.0 Pulse 54 44 66 Resp 44 12 20 B/P (MAP) 89/46 (60) 88/46 113/57 (75) Pulse Ox 97 98 100 O2 Delivery Nasal Cannula Mechanical Ventilator Mechanical Ventilator O2 Flow Rate 5.00 100.00 Capillary Refill : Departure Impression Primary Impression: ESRD (end stage renal disease) on dialysis Additional Impressions: Respiratory failure Hypotension Bradycardia Disposition: SHT-TRM HOSP Condition: Stable/Unchanged Departure-Patient Inst. Referrals: [facility] (PCP/Family) Primary Care Physician KASEY PAT August 20, 2018 15:32
--- NOTE | 2018-08-20 15:39 | Diagnostic Imaging Report ---
INDICATION: Central line placement. TIME OF EXAM: 03:23 p.m. Correlation is made with prior study 08/17/2018. Right-sided line has tip overlying the SVC right atrial junction. No pneumothorax is seen. Pacer overlies right hemithorax. Bilateral infiltrates are noted. The heart is enlarged. Features are suggestive of CHF. IMPRESSION: Right IJ line placement. No pneumothorax is detected. Dictated by: Dictated on workstation # [id number]
[2018-08-20 15:56] LABS: BASOPHILS % (AUTO) 0 % (0-10); EOSINOPHILS # (AUTO) 0.1 10^3/uL (0.0-0.3); EOSINOPHILS % (AUTO) 1 % (0-10); HEMATOCRIT 35 % (35-52); HEMOGLOBIN 10.5 G/DL (11.5-16.0); LYMPHOCYTES # (AUTO) 2.1 X 10^3 (1.0-4.0); LYMPHOCYTES % (AUTO) 17 % (12-44); MEAN CORPUSCULAR HEMOGLOBIN 32 PG (25-34); MEAN CORPUSCULAR HGB CONC 30 G/DL (32-36); MEAN CORPUSCULAR VOLUME 108 FL (80-99); MEAN PLATELET VOLUME 13.4 FL (7.4-10.4); MONOCYTES # (AUTO) 0.2 X 10^3 (0.0-1.0); MONOCYTES % (AUTO) 2 % (0-12); NEUTROPHILS % (AUTO) 81 % (42-75); PLATELET COUNT 125 10^3/uL (130-400); RED CELL DISTRIBUTION WIDTH 18.6 % (10.0-14.5); WHITE BLOOD COUNT 12.3 10^3/uL (4.3-11.0)
[2018-08-20] MEDS ORDERED: RT-IPRATROPIUM (ATROVENT) 0.5MG/2.5ML AMP IH ONE (15:58)
[2018-08-20] MEDS ORDERED: RT-ALBUTEROL SULF 2.5 MG/3 ML PRE-MIX VIAL ONE (15:58)
[2018-08-20] MEDS ORDERED: PROPOFOL DRIP (ICU) 100 ML IV SCH (16:00)
[2018-08-20] MEDS ORDERED: PROPOFOL DRIP (ICU) 100 ML IV ONE (16:04)
[2018-08-20] MEDS ORDERED: NS IV 1000 ML 1,000 ML ONE (16:14)
--- NOTE | 2018-08-20 16:15 | Diagnostic Imaging Report ---
PATIENT HISTORY: Intubation. Shortness of air.. TECHNIQUE: Single frontal view of the chest COMPARISON: Radiograph from the same day and priors FINDINGS: Lung volumes are low. There is cardiomegaly with perihilar airspace opacities. There also appear to be left basilar airspace opacities. The endotracheal tube is approximately 3 cm from the elaina. The enteric tube is not well seen, but appears to pass beyond the GE junction. A right central line tip projects over the cavoatrial junction. No pneumothorax is seen. IMPRESSION: 1. Endotracheal tube is approximately 3 cm from the elaina. 2. Low lung volumes, cardiomegaly, and bilateral airspace opacities, left greater than right, concerning for edema. Dictated by: Dictated on workstation # [id number]
[2018-08-20 16:16] LABS: ALBUMIN 3.7 GM/DL (3.2-4.5); BILIRUBIN,TOTAL 0.6 MG/DL (0.1-1.0); CALCIUM 9.3 MG/DL (8.5-10.1); CREATININE SERUM 6.23 MG/DL (0.60-1.30); TOTAL PROTEIN 6.4 GM/DL (6.4-8.2)
[2018-08-20 16:18] LABS: POTASSIUM 7.9 MMOL/L (3.6-5.0)
[2018-08-20] MEDS ORDERED: EPINEPHrine 1 MG INJECTION 2 MG in NS (IVPB) 248 ML IV SCH (16:30)
[2018-08-20 17:56] VITALS: BP 113/57
== END 2018-08-20 16:54 | disposition short-term general hospital (02) ==
LOC: EDUNIT# 14:08 → ER 14:09
DX: I95.9 Hypotension, unspecified (principal); R00.1 Bradycardia, unspecified; I12.0 Hypertensive chronic kidney disease with stage 5 chronic kidney disease or end stage renal disease; E11.22 Type 2 diabetes mellitus with diabetic chronic kidney disease; N18.6 End stage renal disease; J96.90 Respiratory failure, unspecified, unspecified whether with hypoxia or hypercapnia; J43.9 Emphysema, unspecified; J45.909 Unspecified asthma, uncomplicated; E11.51 Type 2 diabetes mellitus with diabetic peripheral angiopathy without gangrene; I48.91 Unspecified atrial fibrillation; I25.10 Atherosclerotic heart disease of native coronary artery without angina pectoris; E11.40 Type 2 diabetes mellitus with diabetic neuropathy, unspecified; E11.621 Type 2 diabetes mellitus with foot ulcer; Z87.19 Personal history of other diseases of the digestive system; Z99.2 Dependence on renal dialysis; Z88.7 Allergy status to serum and vaccine; Z88.8 Allergy status to other drugs, medicaments and biological substances; Z79.82 Long term (current) use of aspirin; Z79.4 Long term (current) use of insulin; Z77.22 Contact with and (suspected) exposure to environmental tobacco smoke (acute) (chronic); Z89.512 Acquired absence of left leg below knee; Z90.710 Acquired absence of both cervix and uterus; Z93.0 Tracheostomy status
CPT/HCPCS: 31500; 36415; 51702; 71045; 80053; 82962; 83605; 84484; 85025; 87040; 93005; 93041; 99291; 99292

== ENCOUNTER 2018-09-01 12:20 | Emergency (ER) | payer MEDICARE, MEDICAID ==
[~2018-09-01] VITALS: Ht 157.5 cm; Wt 127.5 kg
[2018-09-01] MEDS ORDERED: RT-ALBUTEROL/IPRATROPIUM 3 ML (DUONEB) VIAL INH ONE (12:30)
[2018-09-01 12:38] LABS: ABG BASE EXCESS 1.4 MMOL/L (-2.5-2.5); ABG OXYGEN SATURATION 94 % (94-100); ABG PCO2 43 MMHG (35-45); ABG PH 7.39 (7.37-7.43); ABG PO2 68 MMHG (79-93); ABG TCO2 27.5 MMOL/L (21.0-31.0)
[2018-09-01 12:40] LABS: ALLENS TEST YES-POS; INSPIRED O2 6; PATIENT TEMP 96.3; VENTILATOR NO
--- NOTE | 2018-09-01 12:58 | Diagnostic Imaging Report ---
INDICATION: Hypoxia. Frontal chest obtained at 12:37 p.m. and is compared to 08/20/2018. There is cardiomegaly. There are patchy bilateral infiltrates which appear mildly worsened compared to the prior study. There is no pneumothorax or gross pleural fluid. IMPRESSION: Cardiomegaly with bilateral infiltrates. No pneumothorax or pleural fluid. Dictated by: Dictated on workstation # [id number]
[2018-09-01 13:08] LABS: BASOPHILS % (AUTO) 0 % (0-10); EOSINOPHILS % (AUTO) 0 % (0-10); HEMATOCRIT 32 % (35-52); HEMOGLOBIN 9.7 G/DL (11.5-16.0); LYMPHOCYTES # (AUTO) 1.8 X 10^3 (1.0-4.0); LYMPHOCYTES % (AUTO) 16 % (12-44); MEAN CORPUSCULAR HEMOGLOBIN 31 PG (25-34); MEAN CORPUSCULAR HGB CONC 30 G/DL (32-36); MEAN CORPUSCULAR VOLUME 102 FL (80-99); MEAN PLATELET VOLUME 13.2 FL (7.4-10.4); MONOCYTES # (AUTO) 0.7 X 10^3 (0.0-1.0); MONOCYTES % (AUTO) 6 % (0-12); NEUTROPHILS % (AUTO) 78 % (42-75); PLATELET COUNT 233 10^3/uL (130-400); RED CELL DISTRIBUTION WIDTH 18.1 % (10.0-14.5); WHITE BLOOD COUNT 11.5 10^3/uL (4.3-11.0)
[2018-09-01 13:39] LABS: ALBUMIN 3.7 GM/DL (3.2-4.5); BILIRUBIN,TOTAL 0.5 MG/DL (0.1-1.0); CALCIUM 9.4 MG/DL (8.5-10.1); CREATININE SERUM 8.21 MG/DL (0.60-1.30); MAGNESIUM 2.5 MG/DL (1.8-2.4); POTASSIUM 6.1 MMOL/L (3.6-5.0)
[2018-09-01] MEDS ORDERED: inSUlin ASPART (NovoLOG) 1 UNIT/0.01 ML (CHARGE PER UNIT) SC ONE (14:15)
[2018-09-01] MEDS ORDERED: RT-ALBUINH IH (14:18)
--- NOTE | 2018-09-01 14:19 | ED General ---
General Chief Complaint: Respiratory Problems Stated Complaint: SOA Nursing Triage Note: PT BROUGHT IN BY EMS FROM DIALYSIS WITH COMPLAINT OF LOW O2. STATES AT DIALYSIS PT O2 DROPPED TO 67% ON 6L. FOR EMS, PT WAS UP TO 88% ON 6L. PT STATES SHE WEARS 6L NC ALL TIME. PT WAS RECENTLY INTUBATED AT [place] FOR RESP DISTRESS. Nursing Sepsis Screen: No Definite Risk Source of Information: Patient Exam Limitations: No Limitations History of Present Illness Date Seen by Provider: Sep 01, 2018 Time Seen by Provider: 12:23 Initial Comments This 52-year-old woman presents to the emergency room via EMS from dialysis where she was found to have oxygen saturations in the 60s. EMS was activated and found her to have oxygen saturations in the 80s. She was 6 L by nasal cannula at the time. Patient had a recent admission at [facility] for respiratory failure and intubation. Blood sugar for EMS also read "high". Patient denying cough, fever, or chest pain. Allergies and Home Medications Allergies Coded Allergies: aloe vera (Verified Allergy, Severe, RASH, 11/05/13) flu vaccine [id number](4 yr+) (Verified Allergy, Mild, HIVES, 04/22/12) adhesive (Verified Allergy, Unknown, 05/01/07) Uncoded Allergies: TAPE (Allergy, Mild, 05/16/10) Home Medications Albuterol Sulfate 1 Puff Puff, 2 PUFF IH Q4H PRN for SHORTNESS OF BREATH 1 PUFF = 90 MCG Prescribed by: MIRTA BERRIOS on 09/01/18 1418 Amlodipine Besylate 10 Mg Tablet, 10 MG PO HS, (Reported) Aspirin 81 Mg Tablet.dr, 81 MG PO DAILY, (Reported) Fluticasone Propionate 16 Gm [place].susp, 1 SPRAY NA DAILY PRN for ALLERGIES, (Reported) Furosemide 40 Mg Tablet, 40 MG PO DAILY, (Reported) Gabapentin 300 Mg Capsule, 300 MG PO TID, (Reported) Hydrocodone/Acetaminophen 1 Each Tablet, 1 TAB PO Q6H PRN for PAIN-MODERATE, (Reported) Hydroxyzine HCl 25 Mg Tablet, 25 MG PO TID PRN for an, (Reported) Insulin Glargine,Hum.rec.anlog 100 Unit/1 Ml Insuln.pen, 30 UNITS SQ HS, (Reported) Insulin Lispro 100 Unit/1 Ml Insuln.pen, SQ HS, (Reported) 100-200 = 12-16 UNITS ABOVE 300 = 20 UNITS ABOVE 400 = CALL Isosorbide Mononitrate 30 Mg Tab.er.24h, 30 MG PO HS, (Reported) Levofloxacin 500 Mg Tablet, 500 MG PO Q48H every other day x3 doses. Next dose 08/19/18 Prescribed by: CRYSTAL MATTA on 08/17/182044 Loratadine 10 Mg Tablet, 10 MG PO HS, (Reported) Metoprolol Tartrate 100 Mg Tablet, 100 MG PO BID, (Reported) Montelukast Sodium 10 Mg Tablet, 10 MG PO HS, (Reported) Naproxen 375 Mg Tablet, 375 MG PO BID PRN for PAIN-MILD, (Reported) Ondansetron 8 Mg Tab.rapdis, 8 MG PO Q8H PRN for NAUSEA/VOMITING-1ST LINE, (Reported) Ondansetron 4 Mg Tab.rapdis, 4 MG SL Q4H PRN for NAUSEA/VOMITING Prescribed by: MIRTA BERRIOS on 06/05/18 06 Prednisone 10 Mg Tab.ds.pk, 10 MG PO DAILY Take 6 tabs(60mg)daily,decrease by 1 tab(10MG)daily. Prescribed by: PATRICK BENTLEY on 07/30/18 180 Rosuvastatin Calcium 20 Mg Tablet, 20 MG PO HS, (Reported) Sevelamer Carbonate 800 Mg Tablet, 3,200 MG PO BID WITH MEALS, (Reported) TAKES 4 (800MG) TABLETS WITH BREAKFAST AND SUPPER AND TAKES 2 (800MG) TABLETS WITH SNACK Sevelamer Carbonate 800 Mg Tablet, 1,600 MG PO DAILY WITH SNACK, (Reported) TAKES 2 (800MG) TABLETS Vit B Cmplx 3/FA/Vit C/Biotin 1 Each Tablet, 1 TAB PO DAILY, (Reported) Vitamin E (Dl,Tocopheryl Acet) 100 Unit Capsule, 100 UNIT PO DAILY Prescribed by: PATRICK BENTLEY on 08/20/18 0636 Patient Home Medication List Home Medication List Reviewed: Yes Review of Systems Review of Systems Constitutional: no symptoms reported EENTM: no symptoms reported Respiratory: see HPI Cardiovascular: no symptoms reported Gastrointestinal: no symptoms reported Genitourinary: no symptoms reported : No Musculoskeletal: no symptoms reported Skin: no symptoms reported Psychiatric/Neurological: No Symptoms Reported Hematologic/Lymphatic: No Symptoms Reported Past Asmsevk-Egdkkp-Slqkgu Hx Past Med/Social Hx: Reviewed Nursing Past Med/Soc Hx Patient Social History Alcohol Use: Denies Use Recreational Drug Use: No Smoking Status: Former Smoker Type Used: Cigarettes 2nd Hand Smoke Exposure: Yes Recent Foreign Travel: No Contact w/Someone Who Travel: No Recent Infectious Disease Expo: No Recent Hopitalizations: Yes Immunizations Up To Date Tetanus Booster (TDap): Less than 5yrs PED Vaccines UTD: No Date of Pneumonia Vaccine: Sep 02, 2013 Seasonal Allergies Seasonal Allergies: Yes Past Medical History Surgeries: Yes (DIALYSIS AV FISTULA/GRAFT LEFT UPPER ARM, LEFT BKA) Amputation, Arteriovenous Shunt, Cardiac, Section, Dialysis, Hysterectomy, Orthopedic, Tracheostomy, Vascular Surgery Respiratory: Yes Asthma, COPD, Emphysema Currently Using CPAP: No Currently Using BIPAP: No Cardiac: Yes Atrial Fibrillation, Chronic Edema/Swelling, Coronary Artery Disease, High Cholesterol, Hypertension, Peripheral Vascular Neurological: Yes Headaches /Migraines, Neuropathy 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 Sexually Transmitted Disease: No HIV/AIDS: No Genitourinary: Yes Renal Failure, Dialysis Gastrointestinal: Yes Chronic Constipation Musculoskeletal: Yes Arthritis, Chronic Back Pain, Fractures Endocrine: Yes Diabetes, Insulin dep HEENT: No Loss of Vision: Denies Hearing Impairment: Denies, Hard of Hearing Cancer: No Psychosocial: No Integumentary: Yes (DIABETIC ULCERS; CELLULITIS AND DRAINAGE FROM STUMP LEFT BKA) Blood Disorders: No Adverse Reaction/Blood Tranf: No Family Medical History Diabetes mellitus Family history: Asthma 09 BROTHER No Family History of: AIDS Abdominal aortic aneurysm Bowie's disease Alcoholism Alzheimer's disease Aphasia Arthritis Asthma Cancer of mouth Cardiovascular disease Cataracts Colon cancer Completed stroke Congenital disease Congenital heart disease Coronary thrombosis Cystic fibrosis Deafness or hearing loss Dementia Drug abuse Dysphasia Fibrocystic disease of breast Gastroenteritis Glaucoma Headache disorder Hypercholesterolemia Hypertension Infertility Kidney disease Myocardial infarction Neoplasm Not obtainable due to adoption Osteoporosis Parkinson's disease Prostate cancer Psychosocial problem Respiratory disorder Seizure disorder Severe allergy Thyroid disease Tuberculosis Visual disorder Physical Exam Vital Signs Vital Signs - First Documented 09/01/18 12:20 Temp 96.3 Pulse 60 Resp 17 B/P (MAP) 96/65 (75) Pulse Ox 84 O2 Delivery Nasal Cannula O2 Flow Rate 6.00 Capillary Refill : Less Than 3 Seconds Height, Weight, BMI Height: 5'2.00" Weight: 281lbs. 0oz. 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 Norm as Tested Skin: Normal Color, Warm/Dry Procedures/Interventions Date of ETT Placement: August 20, 2018 Time of ETT Placement: 1543 Progress/Results/Core Measures Suspected Sepsis Recent Fever Within 48 Hours: No Infection Criteria Present: None New/Unexplained Altered Menta: No Sepsis Screen: No Definite Risk SIRS Temperature:96.3 Pulse: 60 Respiratory Rate: 17 Laboratory Tests 09/01/18 12:53: White Blood Count 11.5H Blood Pressure 96 /65 Mean: 75 Laboratory Tests 09/01/18 12:53: Creatinine 8.21H, Platelet Count 233, Total Bilirubin 0.5 Results/Orders Lab Results Laboratory Tests Test 09/01/18 12:32 09/01/18 12:53 09/01/18 12:55 09/01/18 13:48 Range/Units Blood Gas Puncture Site R RADIAL Blood Gas Patient Temperature 96.3 Arterial Blood pH 7.39 7.37-7.43 Arterial Blood Partial Pressure CO2 43 35-45 MMHG Arterial Blood Partial Pressure O2 68 L 79-93 MMHG Arterial Blood HCO3 26 23-27 MMOL/L Arterial Blood Total CO2 27.5 21.0-31.0 MMOL/L Arterial Blood Oxygen Saturation 94 94-100 % Arterial Blood Base Excess 1.4 -2.5-2.5 MMOL/L Donte Test YES-POS Blood Gas Ventilator Setting NO Blood Gas Inspired Oxygen 6 White Blood Count 11.5 H 4.3-11.0 10^3/uL Red Blood Count 3.12 L 4.35-5.85 10^6/uL Hemoglobin 9.7 L 11.5-16.0 G/DL Hematocrit 32 L 35-52 % Mean Corpuscular Volume 102 H 80-99 FL Mean Corpuscular Hemoglobin 31 25-34 PG Mean Corpuscular Hemoglobin Concent 30 L 32-36 G/DL Red Cell Distribution Width 18.1 H 10.0-14.5 % Platelet Count 233 130-400 10^3/uL Mean Platelet Volume 13.2 H 7.4-10.4 FL Neutrophils (%) (Auto) 78 H 42-75 % Lymphocytes (%) (Auto) 16 12-44 % Monocytes (%) (Auto) 6 0-12 % Eosinophils (%) (Auto) 0 0-10 % Basophils (%) (Auto) 0 0-10 % Neutrophils # (Auto) 9.0 H 1.8-7.8 X 10^3 Lymphocytes # (Auto) 1.8 1.0-4.0 X 10^3 Monocytes # (Auto) 0.7 0.0-1.0 X 10^3 Eosinophils # (Auto) 0.0 0.0-0.3 10^3/uL Basophils # (Auto) 0.0 0.0-0.1 10^3/uL Sodium Level 132 L 135-145 MMOL/L Potassium Level 6.1 H 3.6-5.0 MMOL/L Chloride Level 95 L 98-107 MMOL/L Carbon Dioxide Level 23 21-32 MMOL/L Anion Gap 14 5-14 MMOL/L Blood Urea Nitrogen 77 H 7-18 MG/DL Creatinine 8.21 H 0.60-1.30 MG/DL Estimat Glomerular Filtration Rate 5 BUN/Creatinine Ratio 9 Glucose Level 508 *H 70-105 MG/DL Calcium Level 9.4 8.5-10.1 MG/DL Corrected Calcium 9.6 8.5-10.1 MG/DL Magnesium Level 2.5 H 1.8-2.4 MG/DL Total Bilirubin 0.5 0.1-1.0 MG/DL Aspartate Amino Transf (AST/SGOT) 13 5-34 U/L Alanine Aminotransferase (ALT/SGPT) 27 0-55 U/L Alkaline Phosphatase 158 H 40-136 U/L C-Reactive Protein High Sensitivity 0.87 H 0.00-0.50 MG/DL B-Type Natriuretic Peptide 1041.7 H <100.0 PG/ML Total Protein 6.0 L 6.4-8.2 GM/DL Albumin 3.7 3.2-4.5 GM/DL Glucometer 470 *H 508 *H 70-110 MG/DL My Orders Orders - BRUEGGEMANN,MIRTA T MD Arterial Blood Gas (09/01/18 12:32) Cbc With Automated Diff (09/01/18 12:27) Comprehensive Metabolic Panel (09/01/18 12:27) Magnesium (09/01/18 12:27) Chest 1 View, Ap/Pa Only (09/01/18 12:27) BNP (09/01/18 12:27) Albuterol/Ipra Inhalation Soln (Duoneb I (09/01/18 12:30) Svn Small Volume Nebulizer (09/01/18 12:27) Arterial Blood Draw (09/01/18 ) Accucheck Stat ONCE (09/01/18 12:50) Hs C Reactive Protein (09/01/18 12:53) Accucheck Stat ONCE (09/01/18 13:45) Insulin Aspart (Novolog) (Novolog (Charg (09/01/18 14:15) Medications Given in ED Current Medications Medications Dose Ordered Sig/Lindy Route Start Time Stop Time Status Last Admin Dose Admin Albuterol/ Ipratropium 3 ml ONCE ONCE INH 09/01/18 12:30 09/01/18 12:31 DC 09/01/18 12:39 3 ML Insulin Aspart 10 unit ONCE ONCE SC 09/01/18 14:15 09/01/18 14:16 DC 09/01/18 14:32 10 UNIT Vital Signs/I&O 09/01/18 09/01/18 09/01/18 12:20 12:39 14:35 Temp 96.3 96.3 Pulse 60 59 Resp 17 17 B/P (MAP) 96/65 (75) 106/58 (74) Pulse Ox 84 99 93 O2 Delivery Nasal Cannula Nasal Cannula Room Air O2 Flow Rate 6.00 6.00 6.00 Capillary Refill : Less Than 3 Seconds Blood Pressure Mean: 75 Progress Note : Progress Note Patient was given a DuoNeb treatment which improved her breathing and oxygen saturation. She remained stable on her usual 6 L by nasal cannula. I attempted to discharge the patient back to dialysis but they would need to severely truncate her dialysis at this time in the afternoon. Patient elects to receive dialysis early in the morning. Patient reports she was out of her inhaler to use when away from her nebulizer machine. An inhaler was prescribed. Chest x- ray suggested bilateral patchy infiltrates. However, this did not correlate with labs or vitals. Hyperglycemia was treated with 10 units of NovoLog. Patient will return home and check her blood sugar again and treat with insulin accordingly. Diagnostic Imaging Diagonstic Imaging: Xray Plain Films/CT/US/NM/MRI: chest Comments NAME: VARGAS FISHER [facility] REC#: [id number] PT STATUS: REG ER : [id number] PHYSICIAN: MIRTA STAPLETON MD ADMIT DATE: 09/01/18/ER Signed Date of Exam: 09/01/18 CHEST 1 VIEW, AP/PA ONLY INDICATION: Hypoxia. Frontal chest obtained at 12:37 p.m. and is compared to 08/20/2018. There is cardiomegaly. There are patchy bilateral infiltrates which appear mildly worsened compared to the prior study. There is no pneumothorax or gross pleural fluid. IMPRESSION: Cardiomegaly with bilateral infiltrates. No pneumothorax or pleural fluid. Dictated by: Dictated on workstation # [id number] Dict: 09/01/18 1250 Trans: 09/01/18 1437 Interpreted by: BARON LIU MD Electronically signed by: BARON LIU MD 09/01/18 1437 Departure Impression Primary Impression: COPD exacerbation Additional Impressions: Hypoxia End stage renal failure on dialysis Hyperglycemia Disposition: 01 HOME, SELF-CARE Condition: Improved Departure-Patient Inst. Decision time for Depature: 14:10 [place] [facility] [place] Primary Care Physician Patient Instructions: COPD Including Emphysema (DC) Add. Discharge Instructions: Go to dialysis tomorrow morning as directed. Use your nebulizer treatments or inhaler as directed for shortness of breath. Return to the ER for worsening symptoms. Check your blood sugar upon returning home and manage your insulin accordingly. All discharge instructions reviewed with patient and/or family. Voiced understanding. Scripts Albuterol Sulfate (PROAIR HFA) 1 Puff Puff 2 PUFF IH Q4H PRN for SHORTNESS OF BREATH, #1 PUFF 1 PUFF = 90 MCG Prov: MIRTA STAPLETON MD 09/01/18 Copy Copies To 1: ZAINA HURTADO JOSHUA T MD Sep 01, 2018 14:19
[2018-09-01 14:35] VITALS: BP 106/58
== END 2018-09-01 14:49 | disposition home or self-care (01) ==
LOC: EDUNIT# 12:23 → ER 12:23
DX: J43.9 Emphysema, unspecified (principal); E11.22 Type 2 diabetes mellitus with diabetic chronic kidney disease; I12.0 Hypertensive chronic kidney disease with stage 5 chronic kidney disease or end stage renal disease; N18.6 End stage renal disease; E11.65 Type 2 diabetes mellitus with hyperglycemia; I48.91 Unspecified atrial fibrillation; I25.10 Atherosclerotic heart disease of native coronary artery without angina pectoris; E78.00 Pure hypercholesterolemia, unspecified; E11.59 Type 2 diabetes mellitus with other circulatory complications; I73.9 Peripheral vascular disease, unspecified; G43.909 Migraine, unspecified, not intractable, without status migrainosus; E11.40 Type 2 diabetes mellitus with diabetic neuropathy, unspecified; Z88.7 Allergy status to serum and vaccine; Z91.048 Other nonmedicinal substance allergy status; Z98.51 Tubal ligation status; Z99.81 Dependence on supplemental oxygen; Z79.82 Long term (current) use of aspirin; Z79.4 Long term (current) use of insulin; Z79.52 Long term (current) use of systemic steroids; Z79.51 Long term (current) use of inhaled steroids; Z87.891 Personal history of nicotine dependence; Z99.2 Dependence on renal dialysis; Z96.652 Presence of left artificial knee joint; Z98.890 Other specified postprocedural states; Z90.710 Acquired absence of both cervix and uterus; Z93.0 Tracheostomy status
CPT/HCPCS: 36415; 36600; 71045; 80053; 82805; 82962; 83735; 83880; 85025; 86141; 94640; 96372

== ENCOUNTER 2018-09-08 00:28 | Emergency (ER) | payer MEDICARE, MEDICAID ==
[~2018-09-08] VITALS: Ht 157.5 cm; Wt 127.5 kg
--- OUTSIDE RECORDS SUMMARY | 2018-09-08 00:34 | XMS REPORT | Clinical Summary ---
Author Author [facility] Organization [facility] Address Unknown Phone Unavailable Care Team Providers Care Zoology Professor Name Role Phone Mario Carver MD PCP Unavailable Source Comments Some departments are not documenting in the electronic medical record. If you d o not see the information that you expected, contact Release of Information in Critical access hospital Information Management department at [phone] for further assistan ce in locating additional records.[facility] Allergies Not on File Medications [...] Medicare MEDICARE MEDICARE xxxxxxxxxx 2014- TRANSPLANT Present ([employer]) [place] [address] Advance Directives Patient has advance care planning documents on file. For more information, neeraj ledbetter contact: [address] [phone]
--- NOTE | 2018-09-08 00:44 | ED Respiratory ---
General Chief Complaint: Respiratory Problems Stated Complaint: COPD,LOW O2 Source: patient (LIMITED HISTORIAN), EMS, old records History of Present Illness Date Seen by Provider: Sep 08, 2018 Time Seen by Provider: 00:28 Initial Comments PT ARRIVES VIA EMS FROM HOME C/O SHORTNESS OF BREATH PT UNABLE TO STATE HOW LONG SHE HAS BEEN HAVING SYMPTOMS, OTHER THAN "NOT TOO LONG" PT HAS ESRD ON DIALYSIS--[id number]. DENIES MISSED DOSES, STATES ON SATURDAY THEY TOOK OFF 4 LITERS. IS DUE AGAIN IN THE MORNING FOR DIALYSIS ( SATURDAY ) PT HAS ISSUES WITH HYPOTENSION AND SYNCOPE IF THEY TAKE OFF MORE THAN 4 LITERS. BP 90'S SYSTOLIC, WHICH IS FAIRLY NORMAL FOR PT PT IS ON HOME O2 AT 5L/NC--EMS REPORT O2 SATS OF 92% ON 6L/NC PT HAS COPD IN ADDITION TO CHF/CHRONIC FLUID OVERLOAD NO CHEST PAIN NO FEVER HAS HISTORY OF ATRIAL FIBRILLATION PT HAS A MULTITUDE OF VISITS HERE--WITH MOST FOR THIS SAME OR RELATED COMPLAINTS THIS IS PT'S 20TH VISIT IN 2018 PCP: SHARI-SPENCER, THADDEUS HEBERT Allergies and Home Medications Allergies Coded Allergies: aloe vera (Verified Allergy, Severe, RASH, 11/05/13) flu vaccine [id number](4 yr+) (Verified Allergy, Mild, HIVES, 04/22/12) adhesive (Verified Allergy, Unknown, 05/01/07) Uncoded Allergies: TAPE (Allergy, Mild, 05/16/10) Home Medications Albuterol Sulfate 1 Puff Puff, 2 PUFF IH Q4H PRN for SHORTNESS OF BREATH 1 PUFF = 90 MCG Prescribed by: MIRTA BERRIOS on 09/01/18 1418 Amlodipine Besylate 10 Mg Tablet, 10 MG PO HS, (Reported) Aspirin 81 Mg Tablet.dr, 81 MG PO DAILY, (Reported) Fluticasone Propionate 16 Gm [place].susp, 1 SPRAY NA DAILY PRN for ALLERGIES, (Reported) Furosemide 40 Mg Tablet, 40 MG PO DAILY, (Reported) Gabapentin 300 Mg Capsule, 300 MG PO TID, (Reported) Hydrocodone/Acetaminophen 1 Each Tablet, 1 TAB PO Q6H PRN for PAIN-MODERATE, (Reported) Hydroxyzine HCl 25 Mg Tablet, 25 MG PO TID PRN for an, (Reported) Insulin Glargine,Hum.rec.anlog 100 Unit/1 Ml Insuln.pen, 30 UNITS SQ HS, (Reported) Insulin Lispro 100 Unit/1 Ml Insuln.pen, SQ HS, (Reported) 100-200 = 12-16 UNITS ABOVE 300 = 20 UNITS ABOVE 400 = CALL Isosorbide Mononitrate 30 Mg Tab.er.24h, 30 MG PO HS, (Reported) Levofloxacin 500 Mg Tablet, 500 MG PO Q48H every other day x3 doses. Next dose 08/19/18 Prescribed by: CRYSTAL MATTA on 08/17/182044 Loratadine 10 Mg Tablet, 10 MG PO HS, (Reported) Metoprolol Tartrate 100 Mg Tablet, 100 MG PO BID, (Reported) Montelukast Sodium 10 Mg Tablet, 10 MG PO HS, (Reported) Naproxen 375 Mg Tablet, 375 MG PO BID PRN for PAIN-MILD, (Reported) Ondansetron 8 Mg Tab.rapdis, 8 MG PO Q8H PRN for NAUSEA/VOMITING-1ST LINE, (Reported) Ondansetron 4 Mg Tab.rapdis, 4 MG SL Q4H PRN for NAUSEA/VOMITING Prescribed by: MIRTA BERRIOS on 06/05/18 0652 Prednisone 10 Mg Tab.ds.pk, 10 MG PO DAILY Take 6 tabs(60mg)daily,decrease by 1 tab(10MG)daily. Prescribed by: PATRICK BENTLEY on 07/30/18 180 Rosuvastatin Calcium 20 Mg Tablet, 20 MG PO HS, (Reported) Sevelamer Carbonate 800 Mg Tablet, 3,200 MG PO BID WITH MEALS, (Reported) TAKES 4 (800MG) TABLETS WITH BREAKFAST AND SUPPER AND TAKES 2 (800MG) TABLETS WITH SNACK Sevelamer Carbonate 800 Mg Tablet, 1,600 MG PO DAILY WITH SNACK, (Reported) TAKES 2 (800MG) TABLETS Vit B Cmplx 3/FA/Vit C/Biotin 1 Each Tablet, 1 TAB PO DAILY, (Reported) Vitamin E (Dl,Tocopheryl Acet) 100 Unit Capsule, 100 UNIT PO DAILY Prescribed by: PATRICK BENTLEY on 08/20/18 0636 Patient Home Medication List Home Medication List Reviewed: Yes Review of Systems Review of Systems Constitutional: no symptoms reported Respiratory: see HPI, short of breath Cardiovascular: No chest pain Gastrointestinal: no symptoms reported Genitourinary: see HPI Skin: no symptoms reported Psychiatric/Neurological: No Symptoms Reported Hematologic/Lymphatic: No Symptoms Reported Past Imdtldu-Bclplc-Klobnz Hx Patient Social History Type Used: Cigarettes 2nd Hand Smoke Exposure: Yes Recent Foreign Travel: No Contact w/Someone Who Travel: No Recent Hopitalizations: Yes Immunizations Up To Date Tetanus Booster (TDap): Less than 5yrs PED Vaccines UTD: No Date of Pneumonia Vaccine: Sep 02, 2013 Seasonal Allergies Seasonal Allergies: Yes Past Medical History Surgeries: Yes (DIALYSIS AV FISTULA/GRAFT LEFT UPPER ARM, LEFT BKA) Amputation, Arteriovenous Shunt, Cardiac, Section, Dialysis, Hysterectomy, Orthopedic, Tracheostomy, Vascular Surgery Respiratory: Yes Asthma, COPD, Emphysema Currently Using CPAP: No Currently Using BIPAP: No Cardiac: Yes Atrial Fibrillation, Chronic Edema/Swelling, Coronary Artery Disease, High Cholesterol, Hypertension, Peripheral Vascular Neurological: Yes Headaches /Migraines, Neuropathy 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 Sexually Transmitted Disease: No HIV/AIDS: No Genitourinary: Yes Renal Failure, Dialysis Gastrointestinal: Yes Chronic Constipation Musculoskeletal: Yes (LEFT BKA) Amputee, Arthritis, Chronic Back Pain, Fractures Endocrine: Yes Diabetes, Insulin dep HEENT: No Loss of Vision: Denies Hearing Impairment: Denies, Hard of Hearing Cancer: No Psychosocial: No Integumentary: Yes (DIABETIC ULCERS; CELLULITIS AND DRAINAGE FROM STUMP LEFT BKA) Blood Disorders: No Adverse Reaction/Blood Tranf: No Family Medical History Diabetes mellitus Family history: Asthma 09 BROTHER No Family History of: AIDS Abdominal aortic aneurysm [place]'s disease Alcoholism Alzheimer's disease Aphasia Arthritis Asthma Cancer of mouth Cardiovascular disease Cataracts Colon cancer Completed stroke Congenital disease Congenital heart disease Coronary thrombosis Cystic fibrosis Deafness or hearing loss Dementia Drug abuse Dysphasia Fibrocystic disease of breast Gastroenteritis Glaucoma Headache disorder Hypercholesterolemia Hypertension Infertility Kidney disease Myocardial infarction Neoplasm Not obtainable due to adoption Osteoporosis Parkinson's disease Prostate cancer Psychosocial problem Respiratory disorder Seizure disorder Severe allergy Thyroid disease Tuberculosis Visual disorder Physical Exam Vital Signs - First Documented 09/08/18 09/08/18 00:29 00:45 Temp 97.9 Pulse 56 Resp 18 B/P (MAP) 91/43 (59) Pulse Ox 93 O2 Delivery Nasal Cannula O2 Flow Rate 6.00 FiO2 40 Capillary Refill : Height: 5'2.00" Weight: 281lbs. 0oz. 127.227861xn; 53.4 BMI Method:Stated General Appearance: obese (MORBIDLY), other (MILD TO MODERATE DYSPNEA. MALODOROUS; DIRTY AND VERY UNKEMPT; PT IS WEARING ONLY A SHORT T-SHIRT--NO UNDERWEAR OR BRA--MOST OF ABDOMEN AND ALL OF LOWER HALF OF BODY EXPOSED. ) Respiratory: respiratory distress (MILD TO MODERATE), decreased breath sounds, accessory muscle use, rales (IN BASES) Cardiovascular: no murmur, irregularly irregular Gastrointestinal: soft, other (MASSIVE PANNUS) Extremities: other (LEFT BKA---DOES APPEAR TO HAVE EDEMA TO LEFT LEG, IN ADDITION TO EDEMA ON RIGHT--DIFFICULT TO DETERMINE DUE TO BODY HABITUS. ) Neurologic/Psychiatric: no motor/sensory deficits (GROSSLY INTACT, EXCEPT FOR CHRONIC PERIPHERAL NEUROPATHY/DECREASED SENSATION TO RIGHT LOWER LEG), alert, other (MILDLY LETHARGIC, BUT IS AT BASELINE FOR PT. ) Skin: warm/dry, pallor, other (EXTENSIVE SORES/SCARS/SCABS TO FACE, ARMS, LEGS. ) Procedures/Interventions Date of ETT Placement: August 20, 2018 Time of ETT Placement: 1543 Progress/Results/Core Measures Suspected Sepsis SIRS Temperature: Pulse: Respiratory Rate: Laboratory Tests 09/08/18 01:20: White Blood Count 13.7H Blood Pressure / Mean: Laboratory Tests 09/08/18 01:20: Platelet Count 90L Results/Orders Lab Results Laboratory Tests Test 09/08/18 00:42 09/08/18 01:20 09/08/18 01:38 09/08/18 02:15 Range/Units Glucometer 402 *H 415 *H 396 H 70-110 MG/DL White Blood Count 13.7 H 4.3-11.0 10^3/uL Red Blood Count 3.42 L 4.35-5.85 10^6/uL Hemoglobin 10.8 L 11.5-16.0 G/DL Hematocrit 37 35-52 % Mean Corpuscular Volume 107 H 80-99 FL Mean Corpuscular Hemoglobin 32 25-34 PG Mean Corpuscular Hemoglobin Concent 30 L 32-36 G/DL Red Cell Distribution Width 20.6 H 10.0-14.5 % Platelet Count 90 L 130-400 10^3/uL Mean Platelet Volume 13.6 H 7.4-10.4 FL Neutrophils (%) (Auto) 88 H 42-75 % Lymphocytes (%) (Auto) 10 L 12-44 % Monocytes (%) (Auto) 2 0-12 % Eosinophils (%) (Auto) 0 0-10 % Basophils (%) (Auto) 0 0-10 % Neutrophils # (Auto) 12.1 H 1.8-7.8 X 10^3 Lymphocytes # (Auto) 1.3 1.0-4.0 X 10^3 Monocytes # (Auto) 0.2 0.0-1.0 X 10^3 Eosinophils # (Auto) 0.0 0.0-0.3 10^3/uL Basophils # (Auto) 0.0 0.0-0.1 10^3/uL Neutrophils % (Manual) 88 % Lymphocytes % (Manual) 10 % Monocytes % (Manual) 4 % Anisocytosis MODERATE Macrocytosis MODERATE My Orders Orders - LORI PENALOZA DO Accucheck Stat ONCE (09/08/18 00:33) Ed Iv/Invasive Line Start (09/08/18 00:33) Ekg Tracing (09/08/18:33) O2 (09/08/18:33) Monitor-Rhythm Ecg Trace Only (09/08/18:33) Chest 1 View, Ap/Pa Only (09/08/18:33) Arterial Blood Gas (09/08/18:33) Cbc With Automated Diff (09/08/18:33) Comprehensive Metabolic Panel (09/08/18:33) Magnesium (09/08/18:33) Protime With Inr (09/08/18:33) Partial Thromboplastin Time (09/08/18:33) Troponin I (09/08/18:33) Albuterol/Ipra Inhalation Soln (Duoneb I (09/08/18 00:45) Rt Request For Service (09/08/18 00:33) Svn Small Volume Nebulizer (09/08/18:33) Insulin (Regular) Human (Humulin R (Per (09/08/18 01:00) Ed Iv/Invasive Line Start (09/08/18 00:54) Ns (Ivpb) (Sodium Chloride 0.9%) (09/08/18 00:54) Ns (Ivpb) (Sodium Chloride 0.9%) (09/08/18 01:00) Ns (Ivpb) (Sodium Chloride 0.9% Ivpb Bag (09/08/18 00:59) Ns (Ivpb) (Sodium Chloride 0.9% Ivpb Bag (09/08/18 01:15) Manual Differential (09/08/18 01:20) Accucheck Stat ONCE (09/08/18 01:37) Insulin (Regular) Human (Humulin R (Per (09/08/18 01:00) Medications Given in ED Current Medications Medications Dose Ordered Sig/Lindy Route Start Time Stop Time Status Last Admin Dose Admin Albuterol/ Ipratropium 3 ml ONCE ONCE INH 09/08/18 00:45 09/08/18 00:46 DC 09/08/18 00:45 3 ML Insulin Human Regular 25 unit ONCE ONCE IV 09/08/18 01:00 09/08/18 02:25 DC 09/08/18 01:08 25 UNIT Sodium Chloride 100 ml ONCE ONCE IV 09/08/18 01:15 09/08/18 02:25 DC 09/08/18 01:08 100 ML Vital Signs/I&O 09/08/18 09/08/18 09/08/18 09/08/18 00:29 00:45 00:45 02:50 Temp 97.9 97.9 Pulse 56 46 52 Resp 18 34 24 B/P (MAP) 91/43 (59) 105/57 (73) Pulse Ox 93 96 93 100 O2 Delivery Nasal Cannula NIV Bilevel NIV Bilevel O2 Flow Rate 6.00 40.00 FiO2 40 Capillary Refill : Progress Note : Progress Note ACCUCHECK 402 ON ARRIVAL. GIVEN 25 UNITS OF INSULIN IV--REPEAT ACCUCHECKS 415 AND 396. UNABLE TO OBTAIN GLUCOSE FROM VENOUS DRAW. O2 SATS 96% ON 6L/NC ON ARRIVAL PT PLACED ON BIPAP ON ARRIVAL--O2 SATS REMAIN 96%-100% ON BIPAP--RESPIRATIONS MUCH LESS LABORED BP REMAINS >100 SYSTOLIC FOR REMAINDER OF ER STAY NO DETERIORATION IN PT'S CONDITION DURING ER STAY MULTIPLE ATTEMPTS FOR LAB DRAWS--BOTH VENOUS AND FOR ABG'S WERE UNSUCCESSFUL, BUT ABLE TO ESTABLISH IV ACCESS ECG Initial ECG Impression Date: Sep 08, 2018 Initial ECG Impression Time: 00:34 Initial ECG Rate: 53 Comment IRREGULAR ATRIAL RHYTHM, IVCD; DIFFUSE LOW VOLTAGE Diagnostic Imaging Comments CXR--CHF/FLUID OVERLOAD, PENDING RADIOLOGIST REVIEW Reviewed: Reviewed by Ut Departure Communication (Admissions) 8540--CALLED RENALDO BALDERAS. PAGING MANAGEMENT EXPERT, DR. Leny BRAN [id number]--SPOKE WITH DR. Leny BRAN, ACCEPTS PT FOR ADMIT/TRANSFER, ADVISED HIM OF INABILITY TO OBTAIN BLOOD DRAWS. Impression Primary Impression: Acute on chronic respiratory failure Additional Impressions: ESRD (end stage renal disease) on dialysis Uncontrolled diabetes mellitus Fluid overload CHF (congestive heart failure) Disposition: 02 XFER SHT-TRM HOSP Condition: Stable Transfer Transfer Facility: [facility] Method of Transfer: EMS Departure-Patient Inst. Referrals: [facility] (PCP/Family) Primary Care Physician LORI PENALOZA DO Sep 08, 2018 00:44
[2018-09-08 00:45] VITALS: BP 91/43
[2018-09-08] MEDS ORDERED: RT-ALBUTEROL/IPRATROPIUM 3 ML (DUONEB) VIAL INH ONE (00:45)
[2018-09-08] MEDS ORDERED: NS (IVPB) 250 ML IV ONE (00:54)
[2018-09-08] MEDS ORDERED: NS (IVPB) 100 ML ONE (00:59)
[2018-09-08] MEDS ORDERED: inSUlin (REGULAR) HUMAN 1 UNIT/0.01 ML (CHARGE PER UNIT) IV ONE (01:00)
[2018-09-08] MEDS ORDERED: inSUlin (REGULAR) HUMAN 1 UNIT/0.01 ML (CHARGE PER UNIT) ONE (01:00)
[2018-09-08] MEDS ORDERED: NS (IVPB) 100 ML IV ONE (01:00)
[2018-09-08] MEDS ORDERED: NS 100 ML (IVPB) BAG IV ONE (01:15)
[2018-09-08 01:28] LABS: BASOPHILS % (AUTO) 0 % (0-10); EOSINOPHILS % (AUTO) 0 % (0-10); HEMATOCRIT 37 % (35-52); HEMOGLOBIN 10.8 G/DL (11.5-16.0); LYMPHOCYTES # (AUTO) 1.3 X 10^3 (1.0-4.0); LYMPHOCYTES % (AUTO) 10 % (12-44); MEAN CORPUSCULAR HEMOGLOBIN 32 PG (25-34); MEAN CORPUSCULAR HGB CONC 30 G/DL (32-36); MEAN CORPUSCULAR VOLUME 107 FL (80-99); MEAN PLATELET VOLUME 13.6 FL (7.4-10.4); MONOCYTES # (AUTO) 0.2 X 10^3 (0.0-1.0); MONOCYTES % (AUTO) 2 % (0-12); NEUTROPHILS # (AUTO) 12.1 X 10^3 (1.8-7.8); NEUTROPHILS % (AUTO) 88 % (42-75); PLATELET COUNT 90 10^3/uL (130-400); RED CELL DISTRIBUTION WIDTH 20.6 % (10.0-14.5); WHITE BLOOD COUNT 13.7 10^3/uL (4.3-11.0)
--- NOTE | 2018-09-08 02:04 | NUR ---
This RT attempted ABG x 3 unsuccessfully, Dr Acosta updated
--- NOTE | 2018-09-08 02:15 | NUR ---
7 ATTEMPTS TO OBTAIN ALL LAB ORDERS, ONLY ABLE TO OBTAIN ENOUGH BLOOD FOR CBC. DR. EPNALOZA NOTIFIED.
[2018-09-08 02:39] LABS: ANISOCYTOSIS MODERATE; LYMPHOCYTES % (MANUAL) 10 %; MONOCYTES % (MANUAL) 4 %; NEUTROPHILS % (MANUAL) 88 %
[2018-09-08 02:50] VITALS: BP 105/57
--- NOTE | 2018-09-08 06:12 | Diagnostic Imaging Report ---
INDICATION: CHF. COMPARISON: 09/01/2018. FINDINGS: Single view of the chest demonstrates continued cardiac enlargement. Interstitial infiltrates persist but decreased in the hilar regions. There is no pneumothorax or effusion. Osseous structures are stable. IMPRESSION: Improved aeration of both lungs. Dictated by: Dictated on workstation # [id number]
== END 2018-09-08 03:32 | disposition short-term general hospital (02) ==
LOC: EDUNIT# 00:28 → ER 00:29
DX: E11.22 Type 2 diabetes mellitus with diabetic chronic kidney disease (principal); I13.0 Hypertensive heart and chronic kidney disease with heart failure and stage 1 through stage 4 chronic kidney disease, or unspecified chronic kidney disease; N18.6 End stage renal disease; I50.9 Heart failure, unspecified; E87.79 Other fluid overload; J43.9 Emphysema, unspecified; I25.10 Atherosclerotic heart disease of native coronary artery without angina pectoris; E78.00 Pure hypercholesterolemia, unspecified; E11.51 Type 2 diabetes mellitus with diabetic peripheral angiopathy without gangrene; I73.9 Peripheral vascular disease, unspecified; G43.909 Migraine, unspecified, not intractable, without status migrainosus; I48.91 Unspecified atrial fibrillation; E11.40 Type 2 diabetes mellitus with diabetic neuropathy, unspecified; Z87.19 Personal history of other diseases of the digestive system; Z99.2 Dependence on renal dialysis; Z79.82 Long term (current) use of aspirin; Z79.51 Long term (current) use of inhaled steroids; Z79.4 Long term (current) use of insulin; Z98.51 Tubal ligation status; Z79.52 Long term (current) use of systemic steroids; Z77.22 Contact with and (suspected) exposure to environmental tobacco smoke (acute) (chronic); Z98.890 Other specified postprocedural states; Z90.710 Acquired absence of both cervix and uterus; Z93.0 Tracheostomy status; Z96.652 Presence of left artificial knee joint; Z88.7 Allergy status to serum and vaccine; Z91.048 Other nonmedicinal substance allergy status; Z99.81 Dependence on supplemental oxygen
CPT/HCPCS: 36415; 71045; 82962; 85007; 85027; 93005; 93041; 94640; 94660; 96374

== ENCOUNTER 2018-09-18 15:34 | Emergency (ER) | payer MEDICARE, MEDICAID ==
[~2018-09-18] VITALS: Ht 152.4 cm; Wt 127.5 kg
[2018-09-18 16:08] LABS: BASOPHILS % (AUTO) 0 % (0-10); EOSINOPHILS # (AUTO) 0.2 10^3/uL (0.0-0.3); EOSINOPHILS % (AUTO) 2 % (0-10); HEMATOCRIT 32 % (35-52); HEMOGLOBIN 9.3 G/DL (11.5-16.0); LYMPHOCYTES # (AUTO) 1.7 X 10^3 (1.0-4.0); LYMPHOCYTES % (AUTO) 19 % (12-44); MEAN CORPUSCULAR HEMOGLOBIN 31 PG (25-34); MEAN CORPUSCULAR HGB CONC 30 G/DL (32-36); MEAN CORPUSCULAR VOLUME 105 FL (80-99); MONOCYTES # (AUTO) 0.8 X 10^3 (0.0-1.0); MONOCYTES % (AUTO) 9 % (0-12); NEUTROPHILS # (AUTO) 6.3 X 10^3 (1.8-7.8); NEUTROPHILS % (AUTO) 70 % (42-75); PLATELET COUNT 132 10^3/uL (130-400); RED CELL DISTRIBUTION WIDTH 19.3 % (10.0-14.5)
[2018-09-18 16:15] LABS: ABG BASE EXCESS 4.9 MMOL/L (-2.5-2.5); ABG OXYGEN SATURATION 92 % (94-100); ABG PCO2 62 MMHG (35-45); ABG PO2 65 MMHG (79-93); ABG TCO2 32.6 MMOL/L (21.0-31.0)
[2018-09-18 16:17] LABS: ALLENS TEST YES-POS; INSPIRED O2 15L; PATIENT TEMP 97.9; VENTILATOR YES
[2018-09-18 16:18] LABS: ABG PH 7.32 (7.37-7.43)
[2018-09-18] MEDS ORDERED: MIDO5TAB PO (16:30)
[2018-09-18] MEDS ORDERED: AMIO200T4 PO (16:30)
[2018-09-18] MEDS ORDERED: LEVO125T6 PO (16:30)
[2018-09-18] MEDS ORDERED: CODE1CAP35 PO (16:30)
[2018-09-18] MEDS ORDERED: CHOL500050 PO (16:30)
[2018-09-18] MEDS ORDERED: BUDE10.22 IH (16:30)
[2018-09-18] MEDS ORDERED: METO-333 PO (16:30)
--- NOTE | 2018-09-18 16:32 | Diagnostic Imaging Report ---
Indication: Near syncope. Compared: 09/08/2018 Findings: Cardiomegaly unchanged. Perihilar infiltrates and atelectasis greater left have improved. There is no pneumothorax. Sensitivity limited by body habitus. Impression: Improvements in perihilar opacities with stable cardiomegaly. Sensitivity remains limited by body habitus with no adverse development apparent. Dictated by: Dictated on workstation # [id number]
[2018-09-18 16:42] LABS: ALBUMIN 3.8 GM/DL (3.2-4.5); BILIRUBIN,TOTAL 0.5 MG/DL (0.1-1.0); CALCIUM 9.5 MG/DL (8.5-10.1); CREATININE SERUM 5.78 MG/DL (0.60-1.30); POTASSIUM 4.1 MMOL/L (3.6-5.0); TOTAL PROTEIN 6.5 GM/DL (6.4-8.2)
[2018-09-18] MEDS ORDERED: NS IV 1000 ML 1,000 ML ONE (17:00)
--- NOTE | 2018-09-18 17:02 | ED General ---
General Chief Complaint: Dizziness/Syncope Stated Complaint: UNCONSCIOUS Nursing Triage Note: PT PRESENTS TO ED ACCOMPANIED BY VIA PRIVATE AUTO FROM HOME WITH COMPLAINTS OF SOA, FATIGUE, "PASSING OUT" EPISODES, AND N/V. PT CALLED EMS FROM HOME BUT PT REFUSED EMS TRANSPORT SO HE DROVE THE PT HIMSELF. PT WAS JUST DISCHARGED FROM [facility] IN [place] TODAY. PT WAS DIAGNOSED WITH VASOVAGAL NEAR SYNCOPE AND PRESCRIBED ABOMINAL BINDER WHICH IS CURRENTLY NOT ON THE PT. Nursing Sepsis Screen: No Definite Risk Source of Information: Family Exam Limitations: No Limitations History of Present Illness Date Seen by Provider: Sep 18, 2018 Time Seen by Provider: 16:57 Initial Comments The patient is a 53-year-old white female known to me. She has multiple morbidities. She has had declining renal function and on her last visit here was in renal failure. She was sent to [facility] in [place]. She was just dismissed today after having initiated dialysis. Her states that she had been being dialyzed 4 times a week and an effort to pull more fluid. She reports that she felt just fine this morning. She was dismissed and on the way home began to pass out. When her arrived at their home he decided that he would not get her out of the car. Rather he called EMS. The patient refused to get out of the car for EMS and the patient's brought her here. She was apparently having trouble with vasovagal syncope and it had been recommended that she wear an abdominal compression device. This was fashioned out of 2 belt s hooked end to end. He took this off after they arrived here because it was very loose. She dialyzed on Saturday and was to dialyze here tomorrow. Timing/Duration: 1-3 Hours Severity: Moderate Allergies and Home Medications Allergies Coded Allergies: aloe vera (Verified Allergy, Severe, RASH, 11/05/13) flu vaccine [id number](4 yr+) (Verified Allergy, Mild, HIVES, 04/22/12) adhesive (Verified Allergy, Unknown, 05/01/07) Uncoded Allergies: TAPE (Allergy, Mild, 05/16/10) Home Medications Albuterol Sulfate 1 Puff Puff, 2 PUFF IH Q4H PRN for SHORTNESS OF BREATH 1 PUFF = 90 MCG Prescribed by: MRITA BERRIOS on 09/01/18 1418 Amiodarone HCl 200 Mg Tablet, 200 MG PO DAILY, (Reported) Aspirin 81 Mg Tablet.dr, 81 MG PO DAILY, (Reported) Budesonide/Formoterol Fumarate 10.2 Gm Hfa.aer.ad, 2 PUFF IH BID, (Reported) Cholecalciferol (Vitamin D3) 5,000 Unit Capsule, 5,000 UNIT PO DAILY, (Reported) Codeine/Butalbital/ASA/Caffein 1 Each Capsule, 1-2 EACH PO Q4H PRN for HEADACHE, (Reported) Fluticasone Propionate 16 Gm [place].susp, 1 SPRAY NA DAILY PRN for ALLERGIES, (Reported) Gabapentin 300 Mg Capsule, 300 MG PO TID, (Reported) Hydrocodone/Acetaminophen 1 Each Tablet, 1 TAB PO Q6H PRN for PAIN-MODERATE, (Reported) Insulin Glargine,Hum.rec.anlog 100 Unit/1 Ml Insuln.pen, 30 UNITS SQ HS, (Reported) Insulin Lispro 100 Unit/1 Ml Insuln.pen, SQ HS, (Reported) 100-200 = 12-16 UNITS ABOVE 300 = 20 UNITS ABOVE 400 = CALL Levothyroxine Sodium 125 Mcg Tablet, 125 MCG PO DAILY, (Reported) Loratadine 10 Mg Tablet, 10 MG PO HS, (Reported) Metoprolol Tartrate 25 Mg Tablet, 12.5 MG PO BID, (Reported) Midodrine HCl 5 Mg Tablet, 10 MG PO TID, (Reported) Montelukast Sodium 10 Mg Tablet, 10 MG PO HS, (Reported) Rosuvastatin Calcium 20 Mg Tablet, 20 MG PO HS, (Reported) Patient Home Medication List Home Medication List Reviewed: Yes Review of Systems Review of Systems Constitutional: see HPI EENTM: no symptoms reported Respiratory: no symptoms reported Cardiovascular: other (low blood pressure) Gastrointestinal: no symptoms reported Genitourinary: other (renal failure) Musculoskeletal: muscle weakness Skin: other (many ecchymoses as a result of hospitalization and subcutaneous Lovenox) Psychiatric/Neurological: Depressed, Other Hematologic/Lymphatic: No Symptoms Reported Immunological/Allergic: no symptoms reported Past Sfjqokr-Abxdkw-Vnfbrq Hx Patient Social History Alcohol Use: Denies Use Recreational Drug Use: No Smoking Status: Never a Smoker Type Used: Cigarettes 2nd Hand Smoke Exposure: Yes Recent Foreign Travel: No Contact w/Someone Who Travel: No Recent Infectious Disease Expo: No Recent Hopitalizations: Yes Physical Abuse: No Sexual Abuse: No Mistreated: No Fear: No Immunizations Up To Date Tetanus Booster (TDap): Less than 5yrs PED Vaccines UTD: No Date of Pneumonia Vaccine: Sep 02, 2013 Seasonal Allergies Seasonal Allergies: Yes Past Medical History Surgeries: Yes (DIALYSIS AV FISTULA/GRAFT LEFT UPPER ARM, LEFT BKA) Amputation, Arteriovenous Shunt, Cardiac, Section, Dialysis, Hy sterectomy, Orthopedic, Tracheostomy, Vascular Surgery Respiratory: Yes Asthma, COPD, Emphysema Currently Using CPAP: No Currently Using BIPAP: No Cardiac: Yes (CHF) Atrial Fibrillation, Chronic Edema/Swelling, Coronary Artery Disease, High Cholesterol, Hypertension, Peripheral Vascular Neurological: Yes Headaches /Migraines, Neuropathy 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 Sexually Transmitted Disease: No HIV/AIDS: No Genitourinary: Yes (DOES NOT MAKE URINE) Renal Failure, Dialysis Gastrointestinal: Yes Chronic Constipation Musculoskeletal: Yes (LEFT BKA) Amputee, Arthritis, Chronic Back Pain, Fractures Endocrine: Yes Diabetes, Insulin dep HEENT: No Loss of Vision: Denies Hearing Impairment: Denies, Hard of Hearing Cancer: No Psychosocial: No Integumentary: Yes (DIABETIC ULCERS; CELLULITIS AND DRAINAGE FROM STUMP LEFT BKA) Blood Disorders: No Adverse Reaction/Blood Tranf: No Family Medical History Diabetes mellitus Family history: Asthma 09 BROTHER No Family History of: AIDS Abdominal aortic aneurysm Benson's disease Alcoholism Alzheimer's disease Aphasia Arthritis Asthma Cancer of mouth Cardiovascular disease Cataracts Colon cancer Completed stroke Congenital disease Congenital heart disease Coronary thrombosis Cystic fibrosis Deafness or hearing loss Dementia Drug abuse Dysphasia Fibrocystic disease of breast Gastroenteritis Glaucoma Headache disorder Hypercholesterolemia Hypertension Infertility Kidney disease Myocardial infarction Neoplasm Not obtainable due to adoption Osteoporosis Parkinson's disease Prostate cancer Psychosocial problem Respiratory disorder Seizure disorder Severe allergy Thyroid disease Tuberculosis Visual disorder Physical Exam Vital Signs Vital Signs - First Documented 09/18/18 09/18/18 16:00 16:09 Temp 99.1 Pulse 71 Resp 16 B/P (MAP) 87/40 (56) Pulse Ox 92 O2 Delivery OxyMask O2 Flow Rate 10.00 Capillary Refill : Less Than 3 Seconds Height, Weight, BMI Height: 5'0" Weight: 281lbs. 0oz. 127.499001nn; 53.4 BMI Method:Stated General Appearance: No Apparent Distress Eyes: Bilateral Eye Normal Inspection HEENT: Normal ENT Inspection Neck: Normal Inspection Respiratory: Decreased Breath Sounds (shallow respirations) Cardiovascular: Other (difficult exam because of size. Heart tones are extremely muffled) Gastrointestinal: Other (huge belly) Extremity: Other (left BKA amputation. 1-2+ pretibial edema.) Neurologic/Psychiatric: Other (flat affect) Skin: Normal Color, Warm/Dry Lymphatic: No Adenopathy Procedures/Interventions Date of ETT Placement: August 20, 2018 Time of ETT Placement: 1543 Progress/Results/Core Measures Suspected Sepsis Recent Fever Within 48 Hours: No Infection Criteria Present: None New/Unexplained Altered Menta: Yes Sepsis Screen: No Definite Risk SIRS Temperature:99.1 Pulse: 71 Respiratory Rate: 16 Laboratory Tests 09/18/18 15:58: White Blood Count 9.0 Blood Pressure 87 /40 Mean: 56 Laboratory Tests 09/18/18 15:58: Creatinine 5.78H, Platelet Count 132, Total Bilirubin 0.5 Results/Orders Lab Results Laboratory Tests Test 09/18/18 15:58 09/18/18 16:09 Range/Units White Blood Count 9.0 4.3-11.0 10^3/uL Red Blood Count 3.00 L 4.35-5.85 10^6/uL Hemoglobin 9.3 L 11.5-16.0 G/DL Hematocrit 32 L 35-52 % Mean Corpuscular Volume 105 H 80-99 FL Mean Corpuscular Hemoglobin 31 25-34 PG Mean Corpuscular Hemoglobin Concent 30 L 32-36 G/DL Red Cell Distribution Width 19.3 H 10.0-14.5 % Platelet Count 132 130-400 10^3/uL Mean Platelet Volume 7.4-10.4 FL Neutrophils (%) (Auto) 70 42-75 % Lymphocytes (%) (Auto) 19 12-44 % Monocytes (%) (Auto) 9 0-12 % Eosinophils (%) (Auto) 2 0-10 % Basophils (%) (Auto) 0 0-10 % Neutrophils # (Auto) 6.3 1.8-7.8 X 10^3 Lymphocytes # (Auto) 1.7 1.0-4.0 X 10^3 Monocytes # (Auto) 0.8 0.0-1.0 X 10^3 Eosinophils # (Auto) 0.2 0.0-0.3 10^3/uL Basophils # (Auto) 0.0 0.0-0.1 10^3/uL Sodium Level 136 135-145 MMOL/L Potassium Level 4.1 3.6-5.0 MMOL/L Chloride Level 96 L 98-107 MMOL/L Carbon Dioxide Level 30 21-32 MMOL/L Anion Gap 10 5-14 MMOL/L Blood Urea Nitrogen 18 7-18 MG/DL Creatinine 5.78 H 0.60-1.30 MG/DL Estimat Glomerular Filtration Rate 8 BUN/Creatinine Ratio 3 Glucose Level 114 H 70-105 MG/DL Calcium Level 9.5 8.5-10.1 MG/DL Corrected Calcium 9.7 8.5-10.1 MG/DL Total Bilirubin 0.5 0.1-1.0 MG/DL Aspartate Amino Transf (AST/SGOT) 20 5-34 U/L Alanine Aminotransferase (ALT/SGPT) 24 0-55 U/L Alkaline Phosphatase 127 40-136 U/L Total Protein 6.5 6.4-8.2 GM/DL Albumin 3.8 3.2-4.5 GM/DL Blood Gas Puncture Site R RAD Blood Gas Patient Temperature 97.9 Arterial Blood pH 7.32 *L 7.37-7.43 Arterial Blood Partial Pressure CO2 62 H 35-45 MMHG Arterial Blood Partial Pressure O2 65 L 79-93 MMHG Arterial Blood HCO3 31 H 23-27 MMOL/L Arterial Blood Total CO2 32.6 H 21.0-31.0 MMOL/L Arterial Blood Oxygen Saturation 92 L 94-100 % Arterial Blood Base Excess 4.9 H -2.5-2.5 MMOL/L Donte Test YES-POS Blood Gas Ventilator Setting YES Blood Gas Inspired Oxygen 15L My Orders Orders - TANVIR BOSS MD Ns Iv 1000 Ml (Sodium Chloride 0.9%) (09/18/18 17:00) Ed Iv/Invasive Line Start (09/18/18 17:08) Ns Iv 1000 Ml (Sodium Chloride 0.9%) (09/18/18 17:15) Medications Given in ED Current Medications Medications Dose Ordered Sig/Lindy Route Start Time Stop Time Status Last Admin Dose Admin Sodium Chloride 1,000 ml @ 0 mls/hr Q0M ONCE IV 09/18/18 17:15 09/18/18 17:16 DC 09/18/18 17:08 250 MLS/HR Vital Signs/I&O 09/18/18 09/18/18 16:00 16:09 Temp 99.1 Pulse 71 Resp 16 B/P (MAP) 87/40 (56) Pulse Ox 92 80 O2 Delivery OxyMask Nasal Cannula O2 Flow Rate 10.00 4.00 Capillary Refill : Less Than 3 Seconds Blood Pressure Mean: 56 Departure Communication (Admissions) The patient has been running a low blood pressure with the most recent reading 87/40. She initially required O2 at 10 L because of hypoxia. White count was normal range hemoglobin was 9.3 platelets 132,000. Blood gas showed a pH of 7.32 PCO2 of 62 PO2 of 65 on 15 L Impression Primary Impression: hypotension/syncope Additional Impression: renal failure Disposition: XFER SHT-TRM HOSP Condition: Stable/Unchanged Transfer Time Spoke to Accepting Phy: 17:36 Transfer Progress Notes Call was placed to [facility] 1 call. I was connected with hospitalist at [facility]. She was familiar with the patient and accepted her in transfer back to their facility. Transfer Time: 17:44 Transfer Facility: [facility] Method of Transfer: EMS Departure-Patient Inst. Referrals: [facility] (PCP/Family) Primary Care Physician TANVIR BOSS MD Sep 18, 2018 17:02
[2018-09-18] MEDS ORDERED: NS IV 1000 ML 1,000 ML IV ONE (17:15)
--- NOTE | 2018-09-18 17:20 | NUR ---
pt assisted onto bedpan at this time.
--- NOTE | 2018-09-18 17:32 | NUR ---
pt assisted off bed eldridge at this time.
--- OUTSIDE RECORDS SUMMARY | 2018-09-18 18:37 | XMS REPORT | Clinical Summary ---
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
[2018-09-18 18:46] VITALS: BP 101/43
== END 2018-09-18 18:46 | disposition short-term general hospital (02) ==
LOC: EDUNIT# 15:34 → ER 15:35
DX: I95.9 Hypotension, unspecified (principal); R55 Syncope and collapse; E11.22 Type 2 diabetes mellitus with diabetic chronic kidney disease; I13.2 Hypertensive heart and chronic kidney disease with heart failure and with stage 5 chronic kidney disease, or end stage renal disease; N18.6 End stage renal disease; I50.9 Heart failure, unspecified; J43.9 Emphysema, unspecified; G43.909 Migraine, unspecified, not intractable, without status migrainosus; I48.91 Unspecified atrial fibrillation; E78.00 Pure hypercholesterolemia, unspecified; E11.51 Type 2 diabetes mellitus with diabetic peripheral angiopathy without gangrene; I73.9 Peripheral vascular disease, unspecified; Z99.2 Dependence on renal dialysis; Z88.7 Allergy status to serum and vaccine; Z91.048 Other nonmedicinal substance allergy status; Z79.82 Long term (current) use of aspirin; Z79.51 Long term (current) use of inhaled steroids; Z79.4 Long term (current) use of insulin; Z77.22 Contact with and (suspected) exposure to environmental tobacco smoke (acute) (chronic); Z89.512 Acquired absence of left leg below knee; Z98.890 Other specified postprocedural states; Z90.710 Acquired absence of both cervix and uterus; Z93.0 Tracheostomy status
CPT/HCPCS: 36415; 71045; 80053; 82805; 85025; 93005; 99291